=== PATIENT | female | born 1970 | race American Indian/Alaskan Native ===

== ENCOUNTER 2017-07-31 14:49 | Inpatient (IN) | payer SELFPAY ==
--- NOTE | 2017-07-31 15:54 | Emergency Department Report ---
Blank Doc - Documentation Documentation: Patient is a 47-year-old female who is presenting with shortness of breath. Patient states she is short of breath at baseline was worse with walking. She does get chest heaviness as well. Patient is having his chest heaviness currently. Patient also noted some leg swelling as well bilaterally. The patient will be moved to the main for cardiac workup.
[2017-07-31] MEDS ORDERED: ASPIRIN PO ONE (15:55)
[2017-07-31 16:26] LABS: Basophils # (Auto) 0.1 K/mm3 (0.0-0.1); Basophils % (Auto) 1.2 % (0.0-1.8); Eosinophils # (Auto) 0.1 K/mm3 (0.0-0.4); Eosinophils % (Auto) 2.3 % (0.0-4.3); Hematocrit 42.5 % (30.3-42.9); Lymphocytes # (Auto) 1.9 K/mm3 (1.2-5.4); Lymphocytes % (Auto) 32.6 % (13.4-35.0); Mean Corpuscular HGB Conc 33 % (30-34); Mean Corpuscular Hemoglobin 31 pg (28-32); Mean Corpuscular Volume 93 fl (79-97); Monocytes # (Auto) 0.8 K/mm3 (0.0-0.8); Platelet Count 252 K/mm3 (140-440); Red Blood Count 4.58 M/mm3 (3.65-5.03); Red Cell Distribution Width 13.9 % (13.2-15.2)
--- NOTE | 2017-07-31 16:28 | Emergency Department Report ---
HPI - General Chief Complaint: Dyspnea/Respdistress Time Seen by Provider: 07/31/17 15:40 - HPI HPI: Patient is a 47-year-old female who is presenting with shortness of breath. Patient states she is short of breath at baseline was worse with walking. She does get chest heaviness as well. Patient describe her heaviness as 6 out of 10, substernal, without radiation. She denies any alleviating factors but states that exertion isn't exacerbating factor. Patient is having his chest heaviness currently. Patient also noted some leg swelling as well bilaterally. ED Past Medical Hx - Past Medical History Hx Hypertension: Yes Hx CVA: No Hx Heart Attack/AMI: No Hx Asthma: Yes - Surgical History Past Surgical History?: No - Social History Smoking Status: Never Smoker ED Review of Systems ROS: Stated complaint: DIFFICULTY BREATHING Other details as noted in HPI Comment: All other systems reviewed and negative Respiratory: shortness of breath Cardiovascular: chest pain Physical Exam - Physical Exam Vital Signs: Vital Signs 07/31/17 15:00 Temperature 98.4 F Pulse Rate 72 Respiratory 16 Rate Blood Pressure 114/83 O2 Sat by Pulse 97 Oximetry Physical Exam: Gen. alert and oriented 3 in no distress Head atraumatic normocephalic Eyes PERR LA EOMI Chest regular rate and rhythm normal S1-S2 lungs clear bilaterally Abdomen soft nondistended Back no point tenderness paravertebral tenderness Neuro no focal deficit. Psych normal mood. ED Course Vital Signs 07/31/17 15:00 Temperature 98.4 F Pulse Rate 72 Respiratory 16 Rate Blood Pressure 114/83 O2 Sat by Pulse 97 Oximetry ED Medical Decision Making - Lab Data Result diagrams: 07/31/17 16:15 07/31/17 16:15 Critical care attestation.: If time is entered above; I have spent that time in minutes in the direct care of this critically ill patient, excluding procedure time. ED Disposition Clinical Impression: Chest pain Qualifiers: Chest pain type: other chest pain Qualified Code(s): R07.89 - Other chest pain ; R07.8 - Other chest pain Disposition: OP ADMIT IP TO THIS HOSP Is pt being admited?: Yes Does the pt Need Aspirin: No Condition: Stable Instructions: Chest Pain (ED)
[2017-07-31 16:55] LABS: BUN/Creatinine Ratio 21; Blood Urea Nitrogen 15 mg/dL (7-17); Calcium 8.6 mg/dL (8.4-10.2); Hemolysis Index 13
--- NOTE | 2017-07-31 18:11 | XRay Report ---
FINAL REPORT EXAM: XR CHEST ROUTINE 2V HISTORY: Chest Pain TECHNIQUE: Frontal and lateral chest radiographs. PRIORS: None. FINDINGS: The cardiomediastinal silhouette is normal. No focal consolidation. Diffuse increased interstitial markings are seen. Linear opacities are seen at the lung bases. No pleural effusion. No pneumothorax. No acute osseous abnormality. IMPRESSION: Findings may represent pulmonary edema versus interstitial pneumonitis or a chronic interstitial process. Bibasilar atelectasis.
--- NOTE | 2017-07-31 19:08 | Cat Scan Report ---
FINAL REPORT EXAM: CT ANGIO CHEST HISTORY: sob, cp TECHNIQUE: CTA of the chest was performed after the administration of intravenous contrast. Rotating MIPS were included. Reconstructions were included in the coronal and sagittal planes. PRIORS: Chest x-ray from earlier today. FINDINGS: Pulmonary arteries and thoracic aorta: The study is adequate for diagnostic purposes. No central or segmental pulmonary embolism. The thoracic aorta is normal in caliber. Lungs and airways: No pleural effusion. Scattered patchy bilateral peripheral ground-glass opacities are seen within both lungs. More confluent opacities are seen in the lung bases and right middle lobe. The airways are patent. No bronchiectasis. Mediastinum, heart, pericardium: No mediastinal lymphadenopathy. No cardiac chamber enlargement. No pericardial effusion. Calcified right hilar lymph nodes are seen. Thoracic inlet, chest wall, axilla: No chest wall masses. The visualized portions of the thyroid gland demonstrate no focal lesion. No axillary lymphadenopathy. Upper abdomen: The visualized structures demonstrate no specific abnormality. Bones: No acute or chronic osseous finding. IMPRESSION: 1. No central or segmental pulmonary embolism. 2. Pulmonary findings may be related to atypical pneumonia versus a chronic interstitial process.
[2017-07-31] MEDS ORDERED: PERCOCET 5/325 PO PRN (21:50)
[2017-07-31] MEDS ORDERED: MORPHINE IV PRN ×2 (21:50→22:33)
[2017-07-31] MEDS ORDERED: SODIUM CHLORIDE FLUSH SYRINGE 10 ML IV PRN (21:50)
[2017-07-31] MEDS ORDERED: ZOFRAN IV PRN (21:50)
[2017-07-31] MEDS ORDERED: TYLENOL PO PRN (21:50)
--- NOTE | 2017-07-31 21:50 | History and Physical Report ---
History of Present Illness Date of examination: 07/31/17 Date of admission: 07/31/17 18:26 Chief complaint: SOB /CP 2 days History of present illness: SOHA Patient is a 47-year-old female who is presenting with shortness of breath. Patient states she is short of breath at baseline was worse with walking. She does get chest heaviness as well. Patient describe her heaviness as 6 out of 10, substernal, without radiation. She denies any alleviating factors but states that exertion isn't exacerbating factor. Patient is having his chest heaviness currently. Patient also noted some leg swelling as well bilaterally. Past Medical History Hx Hypertension: Yes Hx Asthma: Yes Surgical History Past Surgical History?: No Social History Smoking Status: Never Smoker Review of Systems ROS: Stated complaint: DIFFICULTY BREATHING Other details as noted in HPI Comment: All other systems reviewed and negative Respiratory: shortness of breath Cardiovascular: chest pain Medications and Allergies Allergies Allergy/AdvReac Type Severity Reaction Status Date / Time No Known Allergies Allergy Unverified 07/31/17 15:03 Home Medications Medication Instructions Recorded Confirmed Last Taken Type Montelukast [Singulair] 10 mg PO QPM 07/31/17 07/31/17 Unknown History Review of Systems All systems: negative Constitutional: no weight loss, no weight gain, no fever, no chills Ears, nose, mouth and throat: no sore throat, no swelling in mouth, no swelling in throat Breasts: deferred Cardiovascular: chest pain, shortness of breath, dyspnea on exertion Respiratory: no cough, no hemoptysis, no shortness of breath, no dyspnea on exertion Gastrointestinal: no abdominal pain, no nausea, no vomiting Genitourinary Female: no dysuria, no urinary frequency, no urgency Rectal: no pain Musculoskeletal: no neck stiffness, no neck pain, no shooting arm pain, no arm numbness/tingling Integumentary: no rash, no pruritis, no redness, no sores Neurological: no seizures, no syncope Psychiatric: no anxiety, no memory loss, no change in sleep habits, no sleep disturbances Endocrine: no cold intolerance, no heat intolerance, no polyphagia, no excessive thirst Hematologic/Lymphatic: no easy bruising, no easy bleeding Allergic/Immunologic: no urticaria, no allergic rhinitis, no wheezing Exam - Constitutional Vitals: Temp Pulse Resp BP Pulse Ox 98.2 F 65 19 106/52 95 07/31/17 16:35 07/31/17 21:01 07/31/17 21:01 07/31/17 21:01 07/31/17 21:01 General appearance: Present: no acute distress, well-nourished - EENT Eyes: Present: PERRL ENT: hearing intact, clear oral mucosa - Neck Neck: Present: supple, normal ROM - Respiratory Respiratory effort: normal Respiratory: bilateral: CTA - Cardiovascular Heart Sounds: Present: S1 & S2. Absent: rub, click - Extremities Extremities: pulses symmetrical, No edema Peripheral Pulses: within normal limits - Abdominal General gastrointestinal: Present: soft, non-tender, non-distended, normal bowel sounds Female genitourinary: Present: normal - Integumentary Integumentary: Present: clear, warm, dry - Musculoskeletal Musculoskeletal: gait normal, strength equal bilaterally - Psychiatric Psychiatric: appropriate mood/affect, intact judgment & insight - Neurologic Neurologic: CNII-XII intact, moves all extremities Results - Labs CBC & Chem 7: 08/01/17 04:36 08/01/17 04:36 Labs: Laboratory Last Values WBC 5.9 K/mm3 (4.5-11.0) 07/31/17 16:15 RBC 4.58 M/mm3 (3.65-5.03) 07/31/17 16:15 Hgb 14.0 gm/dl (10.1-14.3) 07/31/17 16:15 Hct 42.5 % (30.3-42.9) 07/31/17 16:15 MCV 93 fl (79-97) 07/31/17 16:15 MCH 31 pg (28-32) 07/31/17 16:15 MCHC 33 % (30-34) 07/31/17 16:15 RDW 13.9 % (13.2-15.2) 07/31/17 16:15 Plt Count 252 K/mm3 (140-440) 07/31/17 16:15 Lymph % (Auto) 32.6 % (13.4-35.0) 07/31/17 16:15 [place] % (Auto) 13.0 % (0.0-7.3) H 07/31/17 16:15 Eos % (Auto) 2.3 % (0.0-4.3) 07/31/17 16:15 Baso % (Auto) 1.2 % (0.0-1.8) 07/31/17 16:15 Lymph # 1.9 K/mm3 (1.2-5.4) 07/31/17 16:15 [place] # 0.8 K/mm3 (0.0-0.8) 07/31/17 16:15 Eos # 0.1 K/mm3 (0.0-0.4) 07/31/17 16:15 Baso # 0.1 K/mm3 (0.0-0.1) 07/31/17 16:15 Seg Neutrophils % 50.9 % (40.0-70.0) 07/31/17 16:15 Seg Neutrophils # 3.0 K/mm3 (1.8-7.7) 07/31/17 16:15 D-Dimer 407.69 ng/mlDDU (0-234) H 07/31/17 16:15 Sodium 138 mmol/L (137-145) 07/31/17 16:15 Potassium 3.9 mmol/L (3.6-5.0) 07/31/17 16:15 Chloride 98.7 mmol/L (98-107) 07/31/17 16:15 Carbon Dioxide 26 mmol/L (22-30) 07/31/17 16:15 Anion Gap 17 mmol/L 07/31/17 16:15 BUN 15 mg/dL (7-17) 07/31/17 16:15 Creatinine 0.7 mg/dL (0.7-1.2) 07/31/17 16:15 Estimated GFR > 60 ml/min 07/31/17 16:15 BUN/Creatinine Ratio 21 % 07/31/17 16:15 Glucose 100 mg/dL (65-100) 07/31/17 16:15 Calcium 8.6 mg/dL (8.4-10.2) 07/31/17 16:15 Troponin T < 0.010 ng/mL (0.00-0.029) 07/31/17 16:15 NT-Pro-B Natriuret Pep 84.26 pg/mL (0-450) 07/31/17 16:15 Short CBC 07/31/17 08/01/17 Range/Units 16:15 04:36 WBC 5.9 5.8 (4.5-11.0) K/mm3 Hgb 14.0 13.2 (10.1-14.3) gm/dl Hct 42.5 39.2 (30.3-42.9) % Plt Count 252 224 (140-440) K/mm3 BMP 07/31/17 08/01/17 16:15 04:36 Sodium 138 138 Potassium 3.9 3.7 Chloride 98.7 101.3 Carbon Dioxide 26 23 BUN 15 12 Creatinine 0.7 0.6 L Glucose 100 84 Calcium 8.6 8.1 L Cardiac Enzymes 07/31/17 07/31/17 08/01/17 Range/Units 16:15 22:02 04:36 Total Creatine Kinase 109 92 (30-135) units/L CK-MB (CK-2) 2.0 1.8 (0.0-4.0) ng/mL Troponin T < 0.010 < 0.010 < 0.010 (0.00-0.029) ng/mL Liver Function 08/01/17 Range/Units 04:36 Total Bilirubin 0.40 (0.1-1.2) mg/dL AST 14 (5-40) units/L ALT 14 (7-56) units/L Alkaline Phosphatase 108 (35-129) units/L Albumin 3.0 L (3.9-5) g/dL - Imaging and Cardiology EKG: report reviewed Chest x-ray: report reviewed Assessment and Plan Advance Directives: Yes (Full code) VTE prophylaxis?: Chemical Plan of care discussed with patient/family: Yes - Patient Problems (1) Chest pain Current Visit: Yes Status: Acute Qualifiers: Chest pain type: other chest pain Qualified Code(s): R07.89 - Other chest pain; R07.8 - Other chest pain Plan to address problem: Chest pain protocol Serial CE's and Lexiscan (2) HTN (hypertension) Current Visit: Yes Status: Chronic Qualifiers: Hypertension type: essential hypertension Qualified Code(s): I10 - Essential (primary) hypertension Plan to address problem: Not on any meds Will initiate if BP readings are high Monitor for now (3) Obesity Current Visit: Yes Status: Chronic Qualifiers: Obesity classification: adult class 3 (BMI >= 40) Plan to address problem: Counselled (4) DVT prophylaxis Current Visit: Yes Status: Acute Plan to address problem: IOn Heparin
[2017-07-31] MEDS: PEPCID PO SCH (22:52)
[2017-08-01] MEDS: SODIUM CHLORIDE FLUSH SYRINGE 10 ML IV SCH ×2 (02:35→12:04)
[2017-08-01 06:02] LABS: Basophils # (Auto) 0.1 K/mm3 (0.0-0.1); Eosinophils # (Auto) 0.2 K/mm3 (0.0-0.4); Hematocrit 39.2 % (30.3-42.9); Hemoglobin 13.2 gm/dl (10.1-14.3); Lymphocytes # (Auto) 1.7 K/mm3 (1.2-5.4); Lymphocytes % (Auto) 30.3 % (13.4-35.0); Mean Corpuscular HGB Conc 34 % (30-34); Mean Corpuscular Hemoglobin 31 pg (28-32); Mean Corpuscular Volume 92 fl (79-97); Monocytes # (Auto) 0.8 K/mm3 (0.0-0.8); Monocytes % (Auto) 13.3 % (0.0-7.3); Platelet Count 224 K/mm3 (140-440); Red Blood Count 4.26 M/mm3 (3.65-5.03); Red Cell Distribution Width 14.2 % (13.2-15.2)
[2017-08-01 06:20] LABS: Creatine Kinase MB 1.8 ng/mL (0.0-4.0)
[2017-08-01 06:26] LABS: Alanine Aminotransferase 14 units/L (7-56); BUN/Creatinine Ratio 20; Blood Urea Nitrogen 12 mg/dL (7-17); Calcium 8.1 mg/dL (8.4-10.2); Hemolysis Index 4
[2017-08-01] MEDS ORDERED: LEXISCAN IV ONE (09:56)
[2017-08-01] MEDS ORDERED: ZOFRAN ONE (10:35)
[2017-08-01] MEDS ORDERED: PNEUMOVAX 23 IM ONE (12:00)
[2017-08-01] MEDS: PEPCID PO SCH (12:32)
[2017-08-01 14:11] VITALS: BP 105/66
--- NOTE | 2017-08-01 15:12 | Progress Note ---
Assessment and Plan Assessment and plan: Patient is a 47-year-old female who is presenting with shortness of breath. Patient states she is short of breath at baseline was worse with walking. She does get chest heaviness as well. Patient describe her heaviness as 6 out of 10, substernal, without radiation. She denies any alleviating factors but states that exertion isn't exacerbating factor. Patient is having his chest heaviness currently. Patient also noted some leg swelling as well bilaterally. Chest pain Chest pain protocol Serial CE's have been negative and Lexiscan results pending HTN (hypertension) Currently controlled without any medication Will initiate if BP readings are high Monitor for now Obesity Counselled Mild to moderate malnutrition Nutrition consult DVT prophylaxis On Heparin History Interval history: Patient seen and examined. Her only complaint today is that of left knee pain which has been going on for some time now. Labs and nursing notes reviewed. Hospitalist Physical - Constitutional Vitals: Temp Pulse Resp BP Pulse Ox 97.7 F 67 16 105/66 96 08/01/17 13:52 08/01/17 13:52 08/01/17 13:52 08/01/17 13:52 08/01/17 13:52 General appearance: Present: no acute distress, well-nourished, obese - EENT Eyes: Present: PERRL, EOM intact ENT: hearing intact, clear oral mucosa, dentition normal - Neck Neck: Present: supple, normal ROM - Respiratory Respiratory effort: normal Respiratory: bilateral: CTA - Cardiovascular Rhythm: regular Heart Sounds: Present: S1 & S2 - Extremities Extremities: no ischemia Extremity abnormal: edema (2+ BLE) - Abdominal General gastrointestinal: soft, non-tender, non-distended - Integumentary Integumentary: Present: clear, warm, dry - Psychiatric Psychiatric: appropriate mood/affect, cooperative - Neurologic Neurologic: CNII-XII intact, moves all extremities - Allied Health Allied health notes reviewed: nursing Results - Labs CBC & Chem 7: 08/01/17 04:36 08/01/17 04:36 Labs: Laboratory Last Values WBC 5.8 K/mm3 (4.5-11.0) 08/01/17 04:36 RBC 4.26 M/mm3 (3.65-5.03) 08/01/17 04:36 Hgb 13.2 gm/dl (10.1-14.3) 08/01/17 04:36 Hct 39.2 % (30.3-42.9) 08/01/17 04:36 MCV 92 fl (79-97) 08/01/17 04:36 MCH 31 pg (28-32) 08/01/17 04:36 MCHC 34 % (30-34) 08/01/17 04:36 RDW 14.2 % (13.2-15.2) 08/01/17 04:36 Plt Count 224 K/mm3 (140-440) 08/01/17 04:36 Lymph % (Auto) 30.3 % (13.4-35.0) 08/01/17 04:36 [place] % (Auto) 13.3 % (0.0-7.3) H 08/01/17 04:36 Eos % (Auto) 3.0 % (0.0-4.3) 08/01/17 04:36 Baso % (Auto) 1.0 % (0.0-1.8) 08/01/17 04:36 Lymph # 1.7 K/mm3 (1.2-5.4) 08/01/17 04:36 [place] # 0.8 K/mm3 (0.0-0.8) 08/01/17 04:36 Eos # 0.2 K/mm3 (0.0-0.4) 08/01/17 04:36 Baso # 0.1 K/mm3 (0.0-0.1) 08/01/17 04:36 Seg Neutrophils % 52.4 % (40.0-70.0) 08/01/17 04:36 Seg Neutrophils # 3.0 K/mm3 (1.8-7.7) 08/01/17 04:36 D-Dimer 407.69 ng/mlDDU (0-234) H 07/31/17 16:15 Sodium 138 mmol/L (137-145) 08/01/17 04:36 Potassium 3.7 mmol/L (3.6-5.0) 08/01/17 04:36 Chloride 101.3 mmol/L (98-107) 08/01/17 04:36 Carbon Dioxide 23 mmol/L (22-30) 08/01/17 04:36 Anion Gap 17 mmol/L 08/01/17 04:36 BUN 12 mg/dL (7-17) 08/01/17 04:36 Creatinine 0.6 mg/dL (0.7-1.2) L 08/01/17 04:36 Estimated GFR > 60 ml/min 08/01/17 04:36 BUN/Creatinine Ratio 20 % 08/01/17 04:36 Glucose 84 mg/dL (65-100) 08/01/17 04:36 Hemoglobin A1c 5.7 % (4-6) 07/31/17 22:02 Calcium 8.1 mg/dL (8.4-10.2) L 08/01/17 04:36 Total Bilirubin 0.40 mg/dL (0.1-1.2) 08/01/17 04:36 AST 14 units/L (5-40) 08/01/17 04:36 ALT 14 units/L (7-56) 08/01/17 04:36 Alkaline Phosphatase 108 units/L (35-129) 08/01/17 04:36 Total Creatine Kinase 87 units/L (30-135) 08/01/17 10:57 CK-MB (CK-2) 2.0 ng/mL (0.0-4.0) 08/01/17 10:57 CK-MB (CK-2) Rel Index 2.2 (0-4) 08/01/17 10:57 Troponin T < 0.010 ng/mL (0.00-0.029) 08/01/17 10:57 NT-Pro-B Natriuret Pep 84.26 pg/mL (0-450) 07/31/17 16:15 Total Protein 6.9 g/dL (6.3-8.2) 08/01/17 04:36 Albumin 3.0 g/dL (3.9-5) L 08/01/17 04:36 Albumin/Globulin Ratio 0.8 % 08/01/17 04:36
--- NOTE | 2017-08-01 15:18 | Discharge Summary ---
Providers - Providers Date of Admission: 07/31/17 18:26 Date of discharge: 08/01/17 Attending physician: CASEY GASPAR Primary care physician: [facility] Hospitalization Condition: Stable Pertinent studies: CT chest revealed 1. No central or segmental pulmonary embolism. 2. Pulmonary findings may be related to atypical pneumonia versus a chronic interstitial process. Chest x-ray revealed Findings may represent pulmonary edema versus interstitial pneumonitis or a chronic interstitial process. Bibasilar atelectasis. Lexiscan stress test revealed Hospital course: Patient is a 47-year-old female who is presenting with shortness of breath. Patient states she is short of breath at baseline was worse with walking. She does get chest heaviness as well. Patient describe her heaviness as 6 out of 10, substernal, without radiation. She denies any alleviating factors but states that exertion isn't exacerbating factor. Patient is having his chest heaviness currently. Patient also noted some leg swelling as well bilaterally. Discharge diagnoses Atypical Chest pain Hypertension Obesity Mild to moderate malnutrition DVT prophylaxis Disposition: - TO HOME OR SELFCARE Time spent for discharge: 33 minutes Core Measure Documentation - Palliative Care Palliative Care/ Comfort Measures: Not Applicable - Core Measures Any of the following diagnoses?: none Exam - Constitutional Vitals: Temp Pulse Resp BP Pulse Ox 97.7 F 67 16 105/66 96 08/01/17 13:52 08/01/17 13:52 08/01/17 13:52 08/01/17 13:52 08/01/17 13:52 General appearance: Present: no acute distress, well-nourished - EENT Eyes: Present: PERRL ENT: hearing intact, clear oral mucosa - Neck Neck: Present: supple, normal ROM - Respiratory Respiratory effort: normal Respiratory: bilateral: CTA - Cardiovascular Heart Sounds: Present: S1 & S2. Absent: rub, click - Extremities Extremities: pulses symmetrical Extremity abnormal: edema (bilateral lower extremity edema 2+) Peripheral Pulses: within normal limits - Abdominal General gastrointestinal: Present: soft, non-tender, non-distended, normal bowel sounds - Integumentary Integumentary: Present: clear, warm, dry - Musculoskeletal Musculoskeletal: gait normal, strength equal bilaterally - Psychiatric Psychiatric: appropriate mood/affect, intact judgment & insight - Neurologic Neurologic: CNII-XII intact, moves all extremities Plan Follow up with: PRIMARY CARE, [Primary Care Provider] - 3-5 Days Pending Studies Discharge is pending and negative stress test
--- NOTE | 2017-08-01 19:45 | Treadmill Report ---
NUCLEAR STRESS TEST The patient was brought to the Cardiology lab and nuclear stress test was performed. The patient tolerated Lexiscan administration well. Post-stress images reveal fairly homogeneous distribution of the isotope with no significant reversibility to indicate ischemia. Accompanying gated study shows good systolic function with a calculated ejection fraction of 61%. Suggest clinical correlation. JOB# [id number] KBM/NTS
== END 2017-08-01 18:01 | disposition home or self-care (01) | DRG 313 ==
LOC: ED 14:49 → 4A 18:26
PROVIDERS: ADMIT Internal Medicine; ATTEND Internal Medicine
PROC: 3E0234Z Introduction of Serum, Toxoid and Vaccine into Muscle, Percutaneous Approach (ICD-10-PCS; principal; 2017-08-01)
DX: R07.89 Other chest pain (principal); Z68.41 Body mass index [BMI] 40.0-44.9, adult; E44.0 Moderate protein-calorie malnutrition; I10 Essential (primary) hypertension; J45.909 Unspecified asthma, uncomplicated; E66.9 Obesity, unspecified; Z23 Encounter for immunization
CPT/HCPCS: 36415; 71046; 71275; 78452; 80048; 80053; 82550; 82553; 83036; 83880; 84484; 85025; 85379; 90732; 93017; 94760; 96374; 99285; A9502; J2405; J2785; Q9967

== ENCOUNTER 2018-11-29 09:30 | Emergency (ER) | payer OTHER ==
--- NOTE | 2018-11-29 10:06 | Emergency Department Report ---
HPI - General Chief Complaint: Allergic Reaction Time Seen by Provider: 11/29/18 10:05 - HPI HPI: Patient is a 48-year-old female who is presenting with rash to her bilateral upper extremities and torso. Patient states isn't in the last 2 months. Patient states that she feels as though she may have had a fever earlier today and became very hot. Patient had no chills. Patient states she's been using the same soaps lotions and is not sure what she may be allergic to. Patient denies any difficulty breathing or problems swallowing at this time. Patient states has been no cough, congestion ED Past Medical Hx - Past Medical History Hx Hypertension: Yes Hx CVA: No Hx Heart Attack/AMI: No Hx Congestive Heart Failure: No Hx Diabetes: No Hx Asthma: Yes Hx COPD: No - Surgical History Past Surgical History?: No - Social History Smoking Status: Never Smoker Substance Use Type: Alcohol - Medications Home Medications: Home Medications Medication Instructions Recorded Confirmed Last Taken Type Montelukast [Singulair] 10 mg PO QPM 07/31/17 07/31/17 Unknown History Pantoprazole [Protonix TAB] 20 mg PO QDAY #30 tablet. 08/01/17 Unknown Rx diphenhydrAMINE [Benadryl CAP] 25 mg PO Q6HR #12 capsule 11/29/18 Unknown Rx predniSONE [Deltasone] 20 mg PO QDAY #4 tab 11/29/18 Unknown Rx ED Review of Systems ROS: Stated complaint: FEVER/RASH ON ARM Other details as noted in HPI Comment: All other systems reviewed and negative Physical Exam - Physical Exam Vital Signs: Vital Signs 11/29/18 09:36 Temperature 98.1 F Pulse Rate 97 H Respiratory 18 Rate Blood Pressure 140/90 O2 Sat by Pulse 97 Oximetry General: Patient alert and oriented 3. Patient no acute distress. Heart and lung exams within normal limits Physical Exam: Patient with a maculopapular rash to the bilateral upper extremities and neck torso ED Course Vital Signs 11/29/18 09:36 Temperature 98.1 F Pulse Rate 97 H Respiratory 18 Rate Blood Pressure 140/90 O2 Sat by Pulse 97 Oximetry ED Medical Decision Making - Medical Decision Making Patient given a shot of Decadron sugars be sent home with Benadryl and 4 more days of steroids. 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 ED Disposition Clinical Impression: Allergic reaction Qualifiers: Encounter type: initial encounter Qualified Code(s): T78.40XA - Allergy, unspecified, initial encounter Disposition: TO HOME OR SELFCARE Is pt being admited?: No Does the pt Need Aspirin: No Condition: Stable Instructions: Allergies (ED) Referrals: MARIO YOUNG MD [Referring] - 3-5 Days Time of Disposition: 10:40
[2018-11-29] MEDS ORDERED: DECADRON IM ONE (10:14)
[2018-11-29 11:07] VITALS: BP 121/74
== END 2018-11-29 11:03 | disposition home or self-care (01) ==
LOC: ED 09:30
DX: T78.40XA Allergy, unspecified, initial encounter (principal); I10 Essential (primary) hypertension; Z88.1 Allergy status to other antibiotic agents; X58.XXXA Exposure to other specified factors, initial encounter
CPT/HCPCS: 96372; 99282; J1100

== ENCOUNTER 2019-06-07 07:39 | Outpatient (CLI) | payer OTHER ==
[2019-06-07] MEDS ORDERED: ALBUTEROL 2.5 MG/3 ML NEBU IH ONE (08:22)
== END 2019-06-07 07:40 | disposition home or self-care (01) ==
LOC: PF 07:39
PROVIDERS: ATTEND Internal Medicine
DX: J45.909 Unspecified asthma, uncomplicated (principal)
CPT/HCPCS: 94060; 94640; 94729

== ENCOUNTER 2020-08-09 08:39 | Day surgery (SDC) | payer OTHER ==
[2020-08-09] MEDS ORDERED: DOBUTamine 100 MG in DEXTROSE 5% IN WATER 92 ML IV ONE (09:56)
--- NOTE | 2020-08-09 22:41 | Treadmill Report ---
DOBUTAMINE STRESS ECHO ORDERING PHYSICIAN: Dr. Jaison Mann for shortness of breath. The patient is on oxygen at home. The patient's baseline heart rate was 77. Baseline blood pressure 103/73. Baseline EKG is sinus rhythm with nonspecific ST-T. Baseline echo in the four views showed normal LV function, normal opening of the aortic and mitral valve. EF is 50-55% on baseline echo. The patient was infused with dobutamine and achieved target heart rate 141, which is 85% max predicted heart rate at 30 mcg of dobutamine. The patient's peak blood pressure was 101/56. The patient had no EKG changes suggestive of ischemia. The patient's echo findings at low and high dobutamine infusion shows normal LV function with hyperdynamic LV at the peak of exercise with no wall motion abnormalities with functioning mitral and aortic valve. SUMMARY: 1. Negative dobutamine stress echo. 2. Normal LV function at base and no wall motion abnormality at peak of dobutamine infusion at 30 mcg with no EKG changes or arrhythmia suggestive of ischemia. The patient did have shortness of breath during the infusion. JOB# [id number] HILARY/TRUE
== END 2020-08-09 08:40 | disposition home or self-care (01) ==
LOC: CATHLABREC 08:39 → ECHO 08:39 → CATHLABREC 08:40 → EDSTATUS 09:00
DX: R06.02 Shortness of breath (principal); R07.89 Other chest pain; R00.2 Palpitations; J84.112 Idiopathic pulmonary fibrosis; I10 Essential (primary) hypertension; E66.9 Obesity, unspecified; J45.909 Unspecified asthma, uncomplicated; Z88.5 Allergy status to narcotic agent; Z88.8 Allergy status to other drugs, medicaments and biological substances; Z79.899 Other long term (current) drug therapy; Z79.84 Long term (current) use of oral hypoglycemic drugs; Z87.01 Personal history of pneumonia (recurrent); Z98.890 Other specified postprocedural states; Z68.33 Body mass index [BMI] 33.0-33.9, adult
CPT/HCPCS: 93017; 93320; 93325; 93350; J1250

== ENCOUNTER 2021-01-21 14:10 | Emergency (ER) | payer OTHER ==
[2021-01-21 14:26] VITALS: BP 109/86
[2021-01-21] MEDS ORDERED: FAMOTIDINE 20 MG TAB PO ONE (14:26)
[2021-01-21] MEDS ORDERED: dexAMETHasone 20 MG/5 ML VIAL IM ONE (14:26)
[2021-01-21] MEDS ORDERED: diphenhydrAMINE 50 MG/ML VIAL IM ONE (14:26)
--- NOTE | 2021-01-21 14:31 | Emergency Department Report ---
ED [place] [facility] Chief Complaint: Allergic Reaction Stated Complaint: STEFFANY Time Seen by Provider: 01/21/21 14:24 Duration: 2 Days Suspected Cause: Unknown Rash Symptoms: Yes Itching, Yes Wheezing/Dyspnea, No Facial Swelling, No Tongue/Oral Swelling, No Breathing Difficulties, No Choking Sensation, No Peeling, No Blistering, No Fever, No Lightheaded, No Malaise, No Myalgias Severity: moderate Other History: 50-year-old female presents to the emergency room for 2-day history of rash and itchiness. Patient reports she has a history of of this and usually takes hydroxyzine but states is not helping. Patient denies any closing of her throat chest pain. She does have a history of COPD and is oxygen dependent at home with 2 L nasal cannula. Patient comes to the emergency room without her oxygen. Patient does appear to be anxious. ED Review of Systems ROS: Stated complaint: STEFFANY Other details as noted in HPI ED Past Medical Hx - Past Medical History Previous Medical History?: Yes Hx Hypertension: Yes Hx CVA: No Hx Heart Attack/AMI: No Hx Congestive Heart Failure: No Hx Diabetes: No Hx Asthma: Yes (Pancreatic) Hx COPD: Yes Additional medical history: Fibrosis of lungs - Surgical History Past Surgical History?: Yes Additional Surgical History: hernia repair, Port right chest - Social History Smoking Status: Former Smoker Substance Use Type: None - Medications Home Medications: Home Medications Medication Instructions Recorded Confirmed Last Taken Type Esomeprazole Magnesium 40 mg PO DAILY 03/19/19 03/19/19 Unknown History Symbicort 160-4.5 Mcg Inhaler 4.5 mcg INHALATION BID 03/19/19 03/19/19 Unknown History Vitamin D (Nf) 5,000 unit PO DAILY 03/19/19 03/19/19 Unknown History Albuterol Sulfate 2.5 mg INHALATION Q6H PRN #1 03/21/19 Unknown Rx Arformoterol Nebu [Brovana Nebu] 15 mcg IH Q12HRT ml 03/21/19 Unknown Rx Budesonide [Pulmicort Respules] 0.5 mg IH Q12HRT nebu 03/21/19 Unknown Rx Fluticasone Propionate 50 mcg IH BID #1 03/21/19 Unknown Rx Ipratropium/Albuterol Sulfate 1 ampul IH TIDRT #100 ampul.neb 03/21/19 Unknown Rx [DUONEB *Not for PRN Use*] Montelukast [Singulair] 10 mg PO QPM #30 tablet 03/21/19 Unknown Rx Pantoprazole [Protonix TAB] 20 mg PO QDAY tablet.dr 03/21/19 Unknown Rx metFORMIN XR [Glucophage XR] 500 mg PO QDDIAB #60 tablet 03/21/19 Unknown Rx oxyCODONE /ACETAMINOPHEN [Percocet 1 tab PO Q6H PRN tablet 03/21/19 Unknown Rx 5/325 mg] predniSONE 30 mg PO BID #60 03/21/19 Unknown Rx Clair Root [Clair] 250 mg PO QID PRN #30 capsule 12/18/19 Unknown Rx Ondansetron [Zofran Odt] 4 mg PO Q8HR PRN #20 tab.rapdis 12/18/19 Unknown Rx Potassium Chloride [K-Dur] 20 meq PO QDAY #10 tablet 12/18/19 Unknown Rx Cetirizine HCl [Zyrtec 10mg tab] 10 mg PO QDAY #30 tablet 01/21/21 Unknown Rx Prednisone [predniSONE 5 mg (6-Day 5 mg PO .TAPER #1 tab.ds.pk 01/21/21 Unknown Rx Pack, 21 Tabs)] Rash Exam - Exam General: Vital signs noted. No distress. Alert and acting appropriately. HEENT: No Periorbital Edema, No Conjuctival Injection, No Chemosis, No Perioral Edema, No Tongue Edema, No Uvular Edema, No Compromised Airway, No Drooling Lungs: Yes Good Air Exchange (Normal Breath Sounds), No Wheezes, No Ronchi, No Stridor, No Cough, No Labored Respirations, No Retractions, No Use of Accessory Muscles, No Other Abnormal Lung Sounds Heart: No Regular (Tachycardic) Skin: Yes Urticarial Rash (Thighs upper arms) Other: Positive: Abdomen Normal, Neurologic Normal, Musculoskeletal Normal ED Course Vital Signs 01/21/21 14:25 Temperature 98.9 F Pulse Rate 125 H Respiratory 20 Rate Blood Pressure 109/86 [Right] O2 Sat by Pulse 95 Oximetry ED Medical Decision Making - Medical Decision Making 50-year-old female presents to the emergency room for 2-day history of rash and itchiness. Patient reports she has a history of of this and usually takes hydroxyzine but states is not helping. Patient denies any closing of her throat chest pain. She does have a history of COPD and is oxygen dependent at home with 2 L nasal cannula. Patient comes to the emergency room without her oxygen. Patient does appear to be anxious. Dexamethasone 10 mg IM, Benadryl 25 mg IM and Pepcid 20 mg p.o. has been ordered. Patient be referred to primary care or tempering machine operator for allergy testing. Critical care attestation.: If time is entered above; I have spent that time in minutes in the direct care of this critically ill patient, excluding procedure time. ED Disposition Clinical Impression: Urticaria Disposition: HOME / SELF CARE / HOMELESS Is pt being admited?: No Condition: Stable Instructions: Hives, [id number] Additional Instructions: Please complete medication as prescribed. Follow-up with a tempering machine operator or primary care provider Prescriptions: Prednisone [predniSONE 5 mg (6-Day Pack, 21 Tabs)] 5 mg PO .TAPER #1 tab.ds.pk Cetirizine HCl [Zyrtec 10mg tab] 10 mg PO QDAY #30 tablet Referrals: [facility] [Provider Group] - 3-5 Days
== END 2021-01-22 17:36 | disposition home or self-care (01) ==
LOC: ED 14:10
DX: L50.9 Urticaria, unspecified (principal); I10 Essential (primary) hypertension; J44.9 Chronic obstructive pulmonary disease, unspecified; J45.909 Unspecified asthma, uncomplicated; J84.10 Pulmonary fibrosis, unspecified; Z98.890 Other specified postprocedural states; Z87.891 Personal history of nicotine dependence
CPT/HCPCS: 96372; 99282; J1100; J1200

== ENCOUNTER 2021-05-11 05:02 | Inpatient (IN) | payer MEDICARE ==
--- NOTE | 2021-05-11 05:22 | Event Note ---
Date: 05/11/21 Medical screening examination note: 51-year-old female, with complex past medical history, complaining of right- sided abdominal pain. Patient endorses numerous allergies, which are inconclusive. Patient is awake, and moving 4 extremities. Check appropriate laboratory studies, EKG, detailed history and physical to follow, by oncoming ER provider
[2021-05-11] MEDS ORDERED: ONDANSETRON 4 MG/2 ML INJ IV ONE (06:10)
[2021-05-11] MEDS ORDERED: MORPHINE 4 MG/1 ML INJ IV ONE (06:10)
[2021-05-11] MEDS ORDERED: SODIUM CHLORIDE 0.9% 1000 ML 1,000 ML IV ONE ×3 (06:10→11:07)
[2021-05-11 06:13] LABS: Basophils % (Auto) 0.5 % (0.0-1.8); Eosinophils # (Auto) 0.1 K/mm3 (0.0-0.4); Eosinophils % (Auto) 2.1 % (0.0-4.3); Hematocrit 39.5 % (30.3-42.9); Hemoglobin 12.8 gm/dl (10.1-14.3); Lymphocytes # (Auto) 0.6 K/mm3 (1.2-5.4); Lymphocytes % (Auto) 10.8 % (13.4-35.0); Mean Corpuscular HGB Conc 32 % (30-34); Mean Corpuscular Volume 98 fl (79-97); Monocytes # (Auto) 0.2 K/mm3 (0.0-0.8); Monocytes % (Auto) 2.5 % (0.0-7.3); Platelet Count 319 K/mm3 (140-440); Red Blood Count 4.02 M/mm3 (3.65-5.03); Red Cell Distribution Width 17.7 % (13.2-15.2)
--- NOTE | 2021-05-11 06:13 | Emergency Department Report ---
HPI - General Chief Complaint: Abdominal Pain Time Seen by Provider: 05/11/21 05:57 - HPI HPI: 51-year-old female presents to the emergency department with the complaint of right upper quadrant abdominal pain that worsened greatly around 2 in the morning. Overall it has been going on intermittently over the past 3 days. Also, since this morning, the patient has been having some nausea with vomiting. She has a history of stage IV pancreatic cancer and says that she is currently undergoing radiation therapy. The patient also has a past medical history of pulmonary fibrosis for which she says she is on 2 L oxygen via nasal cannula at home, and there is a history of hypertension. The patient tried some Tylenol for her pain prior to presentation without much relief. Currently she says it is 9 out of 10 in intensity. No aggravating or alleviating factors known. ED Past Medical Hx - Past Medical History Hx Hypertension: Yes Hx CVA: No Hx Heart Attack/AMI: No Hx Congestive Heart Failure: No Hx Diabetes: No Hx Asthma: Yes (Pancreatic) Hx COPD: Yes Additional medical history: Fibrosis of lungs - Surgical History Past Surgical History?: No Additional Surgical History: hernia repair, Port right chest - Social History Smoking Status: Former Smoker Substance Use Type: None - Medications Home Medications: Home Medications Medication Instructions Recorded Confirmed Last Taken Type Esomeprazole Magnesium 40 mg PO DAILY 03/19/19 03/19/19 Unknown History Symbicort 160-4.5 Mcg Inhaler 4.5 mcg INHALATION BID 03/19/19 03/19/19 Unknown History Vitamin D (Nf) 5,000 unit PO DAILY 03/19/19 03/19/19 Unknown History Albuterol Sulfate 2.5 mg INHALATION Q6H PRN #1 03/21/19 Unknown Rx Arformoterol Nebu [Brovana Nebu] 15 mcg IH Q12HRT ml 03/21/19 Unknown Rx Budesonide [Pulmicort Respules] 0.5 mg IH Q12HRT nebu 03/21/19 Unknown Rx Fluticasone Propionate 50 mcg IH BID #1 03/21/19 Unknown Rx Ipratropium/Albuterol Sulfate 1 ampul IH TIDRT #100 ampul.neb 03/21/19 Unknown Rx [DUONEB *Not for PRN Use*] Montelukast [Singulair] 10 mg PO QPM #30 tablet 03/21/19 Unknown Rx Pantoprazole [Protonix TAB] 20 mg PO QDAY tablet. 03/21/19 Unknown Rx metFORMIN XR [Glucophage XR] 500 mg PO QDDIAB #60 tablet 03/21/19 Unknown Rx oxyCODONE /ACETAMINOPHEN [Percocet 1 tab PO Q6H PRN tablet 03/21/19 Unknown Rx 5/325 mg] predniSONE 30 mg PO BID #60 03/21/19 Unknown Rx Clair Root [Clair] 250 mg PO QID PRN #30 capsule 12/18/19 Unknown Rx Ondansetron [Zofran Odt] 4 mg PO Q8HR PRN #20 tab.rapdis 12/18/19 Unknown Rx Potassium Chloride [K-Dur] 20 meq PO QDAY #10 tablet 12/18/19 Unknown Rx Cetirizine HCl [Zyrtec 10mg tab] 10 mg PO QDAY #30 tablet 01/21/21 Unknown Rx Prednisone [predniSONE 5 mg (6-Day 5 mg PO .TAPER #1 tab.ds.pk 01/21/21 Unknown Rx Pack, 21 Tabs)] ED Review of Systems ROS: Stated complaint: abd pain Other details as noted in HPI Comment: All other systems reviewed and negative Constitutional: denies: chills, fever Eyes: denies: eye pain, vision change ENT: denies: ear pain, throat pain Respiratory: denies: cough, shortness of breath Cardiovascular: denies: chest pain, palpitations Gastrointestinal: abdominal pain, nausea, vomiting Genitourinary: denies: dysuria, discharge Musculoskeletal: denies: back pain, arthralgia Skin: denies: rash, lesions Neurological: denies: headache, weakness Physical Exam - Physical Exam Vital Signs: Vital Signs 05/11/21 05:02 Temperature 98.1 F Pulse Rate 80 Respiratory 18 Rate Blood Pressure 130/90 [Right] O2 Sat by Pulse 98 Oximetry Physical Exam: GENERAL: The patient is well-developed well-nourished. HENT: Normocephalic. Atraumatic. Patient has moist mucous membranes. EYES: Extraocular motions are intact. NECK: Supple. Trachea is midline. CHEST/LUNGS: Clear to auscultation. There is no respiratory distress noted. HEART/CARDIOVASCULAR: Regular. There is mild tachycardia. There is no murmur. ABDOMEN: Abdomen is soft. Epigastric and right upper quadrant abdominal tenderness to palpation. No guarding. Patient has normal bowel sounds. There is no abdominal distention. SKIN: Skin is warm and dry. NEURO: The patient is awake, alert, and oriented. The patient is cooperative. Normal speech. MUSCULOSKELETAL: There is no tenderness or deformity. There is no limitation range of motion. ED Course Vital Signs 05/11/21 05:02 Temperature 98.1 F Pulse Rate 80 Respiratory 18 Rate Blood Pressure 130/90 [Right] O2 Sat by Pulse 98 Oximetry - Reevaluation(s) Reevaluation #1: 05/11/21 07:08 Patient went to use the restroom and upon return to the monitor she was found to have a heart rate of about 155 bpm. The patient also began having increased tachypnea. She is oxygen dependent at home so she was placed on 2 L initially but still had an oxygen saturation in the low 90s so she was moved up to 6 L. The patient was already due to have a CT of the abdomen pelvis with IV contrast. I have ordered a CT angiography of the chest as well. We are obtaining an EKG. the patient has a low-grade fever of 100.4 F. She will be given Tylenol. - Central Line Placement Right Femoral Consent Obtained: written consent Time Out Performed: Yes Patient Placed on Monitor/Pulse Ox: Yes Prep: mask, gown, gloves Central Line Prep: Chlorhexidine scrub Local Anesthesia Used: Lidocaine 1% Amount of Anesthesia Used (mls): 3 Ultrasound Used for Placement: Yes Central Line Lumen Inserted: triple Reason for Insertion: Volume Resuscitation Bloods Obtained for Lab: No Central Line Position: good blood return, all ports aspirated, flus, sutured in place with nyl Dressing Applied: Tegaderm, sterile gauze/tape Patient Tolerated Procedure: well Complications: none ED Medical Decision Making - Lab Data Result diagrams: 05/11/21 05:43 05/11/21 05:43 Lab Results 05/11/21 05/11/21 05/11/21 Range/Units 05:43 05:43 05:43 WBC 6.0 (4.5-11.0) K/mm3 RBC 4.02 (3.65-5.03) M/mm3 Hgb 12.8 (10.1-14.3) gm/dl Hct 39.5 (30.3-42.9) % MCV 98 H (79-97) fl MCH 32 (28-32) pg MCHC 32 (30-34) % RDW 17.7 H (13.2-15.2) % Plt Count 319 (140-440) K/mm3 Lymph % (Auto) 10.8 L (13.4-35.0) % [place] % (Auto) 2.5 (0.0-7.3) % Eos % (Auto) 2.1 (0.0-4.3) % Baso % (Auto) 0.5 (0.0-1.8) % Lymph # (Auto) 0.6 L (1.2-5.4) K/mm3 [place] # (Auto) 0.2 (0.0-0.8) K/mm3 Eos # (Auto) 0.1 (0.0-0.4) K/mm3 Baso # (Auto) 0.0 (0.0-0.1) K/mm3 Seg Neutrophils % 84.1 H (40.0-70.0) % Seg Neutrophils # 5.0 (1.8-7.7) K/mm3 PT 16.0 H (12.2-14.9) Sec. INR 1.16 H (0.87-1.13) Sodium 139 (137-145) mmol/L Potassium 3.6 (3.6-5.0) mmol/L Chloride 102.5 (98-107) mmol/L Carbon Dioxide 21 L (22-30) mmol/L Anion Gap 19 mmol/L BUN 4 L (7-17) mg/dL Creatinine 0.4 L (0.6-1.2) mg/dL Estimated GFR > 60 ml/min BUN/Creatinine Ratio 10 % Glucose 100 (65-100) mg/dL Lactic Acid (0.7-2.0) mmol/L Calcium 8.3 L (8.4-10.2) mg/dL Total Bilirubin 2.10 H (0.1-1.2) mg/dL Direct Bilirubin 1.4 H (0-0.2) mg/dL Indirect Bilirubin 0.7 mg/dL AST 335 H (5-40) units/L ALT 57 H (7-56) units/L Alkaline Phosphatase 339 H (35-129) units/L Total Protein 7.5 (6.3-8.2) g/dL Albumin 2.4 L (3.9-5) g/dL Albumin/Globulin Ratio 0.5 % Lipase 3 L (13-60) units/L Urine Color (Yellow) Urine Turbidity (Clear) Urine pH (5.0-7.0) Ur Specific [place] (1.003-1.030) Urine Protein (Negative) mg/dL Urine Glucose (UA) (Negative) mg/dL Urine Ketones (Negative) mg/dL Urine Blood (Negative) Urine Nitrite (Negative) Urine Bilirubin (Negative) Urine Urobilinogen (<2.0) mg/dL Ur Leukocyte Esterase (Negative) Urine WBC (Auto) (0.0-6.0) /HPF Urine RBC (Auto) (0.0-6.0) /HPF Urine Mucus /HPF 05/11/21 05/11/21 Range/Units 11:18 12:28 WBC (4.5-11.0) K/mm3 RBC (3.65-5.03) M/mm3 Hgb (10.1-14.3) gm/dl Hct (30.3-42.9) % MCV (79-97) fl MCH (28-32) pg MCHC (30-34) % RDW (13.2-15.2) % Plt Count (140-440) K/mm3 Lymph % (Auto) (13.4-35.0) % [place] % (Auto) (0.0-7.3) % Eos % (Auto) (0.0-4.3) % Baso % (Auto) (0.0-1.8) % Lymph # (Auto) (1.2-5.4) K/mm3 [place] # (Auto) (0.0-0.8) K/mm3 Eos # (Auto) (0.0-0.4) K/mm3 Baso # (Auto) (0.0-0.1) K/mm3 Seg Neutrophils % (40.0-70.0) % Seg Neutrophils # (1.8-7.7) K/mm3 PT (12.2-14.9) Sec. INR (0.87-1.13) Sodium (137-145) mmol/L Potassium (3.6-5.0) mmol/L Chloride (98-107) mmol/L Carbon Dioxide (22-30) mmol/L Anion Gap mmol/L BUN (7-17) mg/dL Creatinine (0.6-1.2) mg/dL Estimated GFR ml/min BUN/Creatinine Ratio % Glucose (65-100) mg/dL Lactic Acid 4.20 H* (0.7-2.0) mmol/L Calcium (8.4-10.2) mg/dL Total Bilirubin (0.1-1.2) mg/dL Direct Bilirubin (0-0.2) mg/dL Indirect Bilirubin mg/dL AST (5-40) units/L ALT (7-56) units/L Alkaline Phosphatase (35-129) units/L Total Protein (6.3-8.2) g/dL Albumin (3.9-5) g/dL Albumin/Globulin Ratio % Lipase (13-60) units/L Urine Color [place] (Yellow) Urine Turbidity Clear (Clear) Urine pH 6.0 (5.0-7.0) Ur Specific [place] 1.035 H (1.003-1.030) Urine Protein 100 mg/dl (Negative) mg/dL Urine Glucose (UA) Neg (Negative) mg/dL Urine Ketones Neg (Negative) mg/dL Urine Blood Neg (Negative) Urine Nitrite Neg (Negative) Urine Bilirubin Neg (Negative) Urine Urobilinogen < 2.0 (<2.0) mg/dL Ur Leukocyte Esterase Neg (Negative) Urine WBC (Auto) 2.0 (0.0-6.0) /HPF Urine RBC (Auto) 1.0 (0.0-6.0) /HPF Urine Mucus Few /HPF - EKG Data -: EKG Interpreted by Wy EKG shows normal: sinus rhythm, axis (Left axis deviation), intervals, QRS complexes (Left anterior fascicular block), ST-T waves Rate: tachycardia (134 bpm) - EKG Data When compared to previous EKG there are: no significant change Interpretation: unchanged when compared t (12/18/19) - Radiology Data Radiology results: report reviewed CTA CHEST WITH CONTRAST INDICATION / CLINICAL INFORMATION: Shortness of breath. Tachycardia. TECHNIQUE: Axial CT images were obtained through the chest after injection of Omnipaque 350, 100 cc IV contrast. 3 plane MIP and/or 3D reconstructions were produced. All CT scans at this location are performed using CT dose reduction for ALARA by means of automated exposure control. COMPARISON: CTA chest 12/18/2019. FINDINGS: PULMONARY ARTERIES: No pulmonary emboli. THORACIC AORTA: No significant abnormality. HEART: No significant abnormality. CORONARY ARTERY CALCIFICATION: None. MEDIASTINUM / CHIKIS: No significant abnormality. PLEURA: No pleural effusion. No pneumothorax. LUNGS: Bilateral interstitial opacity remains with overall slight worsening. No new mass. ADDITIONAL FINDINGS: Mild fluid-filled esophagus. UPPER ABDOMEN: No acute findings. SKELETAL STRUCTURES: No significant osseous abnormality. IMPRESSION: 1. No CT evidence for pulmonary embolism. 2. Bilateral interstitial opacity remains with overall mild worsening 3. Mild fluid-filled esophagus. The stomach is also distended with fluid. CT ABDOMEN AND PELVIS WITH CONTRAST INDICATION / CLINICAL INFORMATION: Abdominal pain. Pancreatic cancer. TECHNIQUE: Axial CT images were obtained through the abdomen and pelvis after Omnipaque 350, 100 cc IV contrast. All CT scans at this location are performed using CT dose reduction for ALARA by means of automated exposure control. COMPARISON: CT abdomen and pelvis 12/18/2019 FINDINGS: LIVER: Prominent diffuse fatty infiltration of the liver. GALLBLADDER: No significant abnormality. BILE DUCTS: The common bile duct above the level the stent is dilated measuring 1.3 cm. There is internal debris. Mild air is seen at the gallbladder. No significant air within the biliary tree. PANCREAS: Persistent mass in the pancreatic head with indwelling stent. The size of the mass is similar. Ductal dilatation remains with mild interval increase. New small cystic lesion is seen at the uncinate process measuring 7 mm. SPLEEN: No significant abnormality. ADRENALS: No significant abnormality. RIGHT KIDNEY / URETER: Subcentimeter cysts. LEFT KIDNEY / URETER: No significant abnormality. STOMACH / SMALL BOWEL: No significant abnormality. COLON: Thickening greatest at the right colon. APPENDIX: No significant abnormality. PERITONEUM: Mild pelvic free fluid. No free air. No fluid collection. LYMPH NODES: No significant adenopathy. VASCULAR STRUCTURES: No significant abnormality. URINARY BLADDER: No significant abnormality. REPRODUCTIVE ORGANS: No significant abnormality. ADDITIONAL FINDINGS: None. SKELETAL SYSTEM: No significant abnormality. IMPRESSION: 1. Persistent pancreatic carcinoma with indwelling metallic stent. It is suspected that the stent is included. 2. Mild pelvic fluid. 3. Mild c olonic thickening of uncertain chronicity. CHEST - 1 VIEW 0720 hours INDICATION: SOB COMPARISON: 03/19/2019 FINDINGS: Support devices: A right IJ [id number] has been inserted since the previous exam which terminates near the cavoatrial junction in good position. Heart: Within normal limits. Lungs/pleura: Low lung volumes with increased interstitial markings in the lower lung zones. This is unchanged and suggestive of chronic interstitial lung disease or pulmonary fibrosis. No acute infiltrate, large pleural effusion or pneumothorax. Additional findings: None. IMPRESSION: No acute change since 03/19/2019. Interstitial lung disease or early pulmonary fibrosis is suspected and unchanged. - Medical Decision Making This patient presented to the emergency department with a complaint of abdominal pain. Shortly after arrival, and after getting up for to use the restroom, suddenly the patient began having significant tachycardia with heart rate of about 150. Patient was given some IV fluid resuscitation, IV analgesia, IV antiemetic. Over multiple hours the tachycardia has gradually improved. However, over the patient's ED course she has also started to have hypotension. The patient had 3 L of IV fluid resuscitation and continued to have a MAP of a bout 50 - 55. After a long discussion with the patient, and getting written consent, I placed a right femoral central line as per the procedure section and the patient has been started on pressors. Patient's labs shows elevated LFTs, bilirubin, and a lactic acidosis of 4.2. CT angiography of the chest shows some pulmonary fibrosis but otherwise no evidence of pulmonary embolism, dissection, or any other acute process. CT of the abdomen and pelvis with IV contrast shows her pancreatic carcinoma, and some nonspecific colonic inflammation and mild pelvic fluid. With the tachycardia, hypotension and lactic acidosis, the patient has a septic and/or septic shock appearance. However no focus of infection has been found thus far. Patient was treated with some empiric antibiotics. She will be admitted to the ICU for further evaluation and treatment and was accepted for admission by the hospitalist, Dr. Andrade. Critical Care Time: Yes Critical care time in (mins) excluding proc time.: 35 Critical care attestation.: If time is entered above; I have spent that time in minutes in the direct care of this critically ill patient, excluding procedure time. Critical care time spent on this patient in doing her initial evaluation, multiple reevaluations, ordering and interpretation of labs and imaging, IV fluid resuscitation, IV antibiotics, IV pressors, and multiple discussions with the patient. This does not include the time spent doing the central line procedure. Critical Care Time: 35 minutes ED Disposition Clinical Impression: SIRS (systemic inflammatory response syndrome), Hypotension, Pancreatic cancer, Lactic acidosis, Elevated liver enzymes, Elevated bilirubin Disposition: ADMITTED INPATIENT Is pt being admited?: Yes Condition: Serious Time of Disposition: 14:35
[2021-05-11 06:14] LABS: INR 1.16 (0.87-1.13)
[2021-05-11 06:28] LABS: BUN/Creatinine Ratio 10; Bilirubin,Direct 1.4 mg/dL (0-0.2); Blood Urea Nitrogen 4 mg/dL (7-17); Calcium 8.3 mg/dL (8.4-10.2)
[2021-05-11 06:29] LABS: Alanine Aminotransferase 57 units/L (7-56); Albumin 2.4 g/dL (3.9-5); Hemolysis Index 109
[2021-05-11] MEDS ORDERED: ACETAMINOPHEN 325 MG TAB PO ONE (07:07)
--- NOTE | 2021-05-11 07:50 | XRay Report ---
CHEST - 1 VIEW 0720 hours INDICATION: SOB COMPARISON: 03/19/2019 FINDINGS: Support devices: A right IJ [id number] has been inserted since the previous exam which terminates near the cavoatrial junction in good position. Heart: Within normal limits. Lungs/pleura: Low lung volumes with increased interstitial markings in the lower lung zones. This is unchanged and suggestive of chronic interstitial lung disease or pulmonary fibrosis. No acute infilt rate, large pleural effusion or pneumothorax. Additional findings: None. IMPRESSION: No acute change since 03/19/2019. Interstitial lung disease or early pulmonary fibrosis is suspected and unchanged. Signer Name: Valeriano Akins Jr, MD Signed: 05/11/2021 7:45 AM Workstation Name: [id number]
[2021-05-11] MEDS ORDERED: KETOROLAC 30 MG/1 ML INJ IV ONE ×2 (08:09→20:31)
--- NOTE | 2021-05-11 10:30 | Cat Scan Report ---
CT ABDOMEN AND PELVIS WITH CONTRAST INDICATION / CLINICAL INFORMATION: Abdominal pain. Pancreatic cancer. TECHNIQUE: Axial CT images were obtained through the abdomen and pelvis after Omnipaque 350, 100 cc I V contrast. All CT scans at this location are performed using CT dose reduction for ALARA by means o f automated exposure control. COMPARISON: CT abdomen and pelvis 12/18/2019 FINDINGS: LIVER: Prominent diffuse fatty infiltration of the liver. GALLBLADDER: No significant abnormality. BILE DUCTS: The common bile duct above the level the stent is dilated measuring 1.3 cm. There is inte rnal debris. Mild air is seen at the gallbladder. No significant air within the biliary tree. PANCREAS: Persistent mass in the pancreatic head with indwelling stent. The size of the mass is simil ar. Ductal dilatation remains with mild interval increase. New small cystic lesion is seen at the unc inate process measuring 7 mm. SPLEEN: No significant abnormality. ADRENALS: No significant abnormality. RIGHT KIDNEY / URETER: Subcentimeter cysts. LEFT KIDNEY / URETER: No significant abnormality. STOMACH / SMALL BOWEL: No significant abnormality. COLON: Thickening greatest at the right colon. APPENDIX: No significant abnormality. PERITONEUM: Mild pelvic free fluid. No free air. No fluid collection. LYMPH NODES: No significant adenopathy. VASCULAR STRUCTURES: No significant abnormality. URINARY BLADDER: No significant abnormality. REPRODUCTIVE ORGANS: No significant abnormality. ADDITIONAL FINDINGS: None. SKELETAL SYSTEM: No significant abnormality. IMPRESSION: 1. Persistent pancreatic carcinoma with indwelling metallic stent. It is suspected that the stent is included. 2. Mild pelvic fluid. 3. Mild colonic thickening of uncertain chronicity. Signer Name: Clemente Garduno MD Signed: 05/11/2021 10:25 AM Workstation Name: [id number]
--- NOTE | 2021-05-11 10:35 | Cat Scan Report ---
CTA CHEST WITH CONTRAST INDICATION / CLINICAL INFORMATION: Shortness of breath. Tachycardia. TECHNIQUE: Axial CT images were obtained through the chest after injection of Omnipaque 350, 100 cc I V contrast. 3 plane MIP and/or 3D reconstructions were produced. All CT scans at this location are pe rformed using CT dose reduction for ALARA by means of automated exposure control. COMPARISON: CTA chest 12/18/2019. FINDINGS: PULMONARY ARTERIES: No pulmonary emboli. THORACIC AORTA: No significant abnormality. HEART: No significant abnormality. CORONARY ARTERY CALCIFICATION: None. MEDIASTINUM / CHIKIS: No significant abnormality. PLEURA: No pleural effusion. No pneumothorax. LUNGS: Bilateral interstitial opacity remains with overall slight worsening. No new mass. ADDITIONAL FINDINGS: Mild fluid-filled esophagus. UPPER ABDOMEN: No acute findings. SKELETAL STRUCTURES: No significant osseous abnormality. IMPRESSION: 1. No CT evidence for pulmonary embolism. 2. Bilateral interstitial opacity remains with overall mild worsening 3. Mild fluid-filled esophagus. The stomach is also distended with fluid. Signer Name: Clemente Garduno MD Signed: 05/11/2021 10:31 AM Workstation Name: [id number]
--- NOTE | 2021-05-11 10:59 | Electrocardiograph Report ---
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
[2021-05-11] MEDS ORDERED: cefTRIAXone/NS 1 GM/50 ML 1 GM/50 ML BAG IV ONE (11:18)
[2021-05-11 11:29] LABS: Bilirubin,Urine NEG (Negative); Blood,Urine NEG (Negative); Color,Urine Amber (Yellow); Mucus,Urine FEW /HPF; Urobilinogen,Urine < 2.0 mg/dL (<2.0)
[2021-05-11] MEDS: NORepinephrine/NS 8 MG-250 ML 8 MG/250 ML INFUS..BTL IV SCH ×2 (14:38→18:53)
--- NOTE | 2021-05-11 17:10 | History and Physical Report ---
History of Present Illness Date of examination: 05/11/21 Date of admission: 05/11/21 14:35 Chief complaint: Right upper quadrant pain since 2 AM History of present illness: 51-year-old female with history of COPD and pancreatic cancer comes in for right upper quadrant pain since 2 AM. Pain is about 10 on a scale of 1-10. Also associated with nausea and vomiting. Patient is on radiation therapy for pancreatic cancer. Patient also has a history of pulmonary fibrosis and is on 2 L nasal cannula oxygen. Vomited about 3-4 times. No fever or chills. No aggravating or relieving factors. No exposure to coronavirus. - Past Medical History --Hypertension: Yes --Asthma: Yes (Pancreatic) --COPD: Yes --Additional medical history: Fibrosis of lungs - Surgical History -- hernia repair, Port right chest - Social History --Smoking Status: Former Smoker --Substance Use Type: None -Family history --Htn Review of Systems ROS: Stated complaint: abd pain Other details as noted in HPI Comment: All other systems reviewed and negative Constitutional: denies: chills, fever Eyes: denies: eye pain, vision change ENT: denies: ear pain, throat pain Respiratory: denies: cough, shortness of breath Cardiovascular: denies: chest pain, palpitations Gastrointestinal: abdominal pain, nausea, vomiting Genitourinary: denies: dysuria, discharge Musculoskeletal: denies: back pain, arthralgia Skin: denies: rash, lesions Neurological: denies: headache, weakness Medications and Allergies Allergies Allergy/AdvReac Type Severity Reaction Status Date / Time codeine Allergy Rash Verified 12/18/19 05:02 [From Tylenol-Codeine #3] neomycin Allergy Hives Verified 08/01/17 14:15 Home Medications Medication Instructions Recorded Confirmed Last Taken Type Esomeprazole Magnesium 40 mg PO DAILY 03/19/19 03/19/19 Unknown History Symbicort 160-4.5 Mcg Inhaler 4.5 mcg INHALATION BID 03/19/19 03/19/19 Unknown History Vitamin D (Nf) 5,000 unit PO DAILY 03/19/19 03/19/19 Unknown History Albuterol Sulfate 2.5 mg INHALATION Q6H PRN #1 03/21/19 Unknown Rx Arformoterol Nebu [Brovana Nebu] 15 mcg IH Q12HRT ml 03/21/19 Unknown Rx Budesonide [Pulmicort Respules] 0.5 mg IH Q12HRT nebu 03/21/19 Unknown Rx Fluticasone Propionate 50 mcg IH BID #1 03/21/19 Unknown Rx Ipratropium/Albuterol Sulfate 1 ampul IH TIDRT #100 ampul.neb 03/21/19 Unknown Rx [DUONEB *Not for PRN Use*] Montelukast [Singulair] 10 mg PO QPM #30 tablet 03/21/19 Unknown Rx Pantoprazole [Protonix TAB] 20 mg PO QDAY tablet. 03/21/19 Unknown Rx metFORMIN XR [Glucophage XR] 500 mg PO QDDIAB #60 tablet 03/21/19 Unknown Rx oxyCODONE /ACETAMINOPHEN [Percocet 1 tab PO Q6H PRN tablet 03/21/19 Unknown Rx 5/325 mg] predniSONE 30 mg PO BID #60 03/21/19 Unknown Rx Clair Root [Clair] 250 mg PO QID PRN #30 capsule 12/18/19 Unknown Rx Ondansetron [Zofran Odt] 4 mg PO Q8HR PRN #20 tab.rapdis 12/18/19 Unknown Rx Potassium Chloride [K-Dur] 20 meq PO QDAY #10 tablet 12/18/19 Unknown Rx Cetirizine HCl [Zyrtec 10mg tab] 10 mg PO QDAY #30 tablet 01/21/21 Unknown Rx Prednisone [predniSONE 5 mg (6-Day 5 mg PO .TAPER #1 tab.ds.pk 01/21/21 Unknown Rx Pack, 21 Tabs)] Active Meds: Active Medications NORepinephrine/NS 8 MG-250 ML (Norepinephrine/Ns 8 Mg-250 Ml (Double Conc)) 8 mg in 250 mls @ 3.75 mls/hr IV TITRATE ABRAHAN; Protocol Last Titration: 05/11/21 15:24 Dose: 30 mcg/min, 56.25 mls/hr Documented by: Exam - Constitutional Vitals: Temp Pulse Resp BP Pulse Ox 98.2 F 99 H 18 84/51 98 05/11/21 10:29 05/11/21 16:51 05/11/21 16:51 05/11/21 16:51 05/11/21 16:51 General appearance: Present: mild distress, well-nourished - EENT Eyes: Present: PERRL ENT: hearing intact, clear oral mucosa - Neck Neck: Present: supple, normal ROM - Respiratory Respiratory effort: normal Respiratory: bilateral: CTA - Cardiovascular Heart rate: 98 Rhythm: regular Heart Sounds: Present: S1 & S2. Absent: rub, click - Extremities Extremities: pulses symmetrical, No edema Peripheral Pulses: within normal limits - Abdominal General gastrointestinal: Present: tender, non-distended, normal bowel sounds Localized gastrointestinal: tender: RUQ, guarding: RUQ Female genitourinary: Present: normal - Integumentary Integumentary: Present: clear, warm, dry - Musculoskeletal Musculoskeletal: gait normal, strength equal bilaterally - Psychiatric Psychiatric: appropriate mood/affect, intact judgment & insight - Neurologic Neurologic: CNII-XII intact, moves all extremities - Allied Health Allied health notes reviewed: nursing, case management Results - Labs CBC & Chem 7: 05/12/21 04:08 05/12/21 04:08 Labs: Laboratory Last Values WBC 6.0 K/mm3 (4.5-11.0) 05/11/21 05:43 RBC 4.02 M/mm3 (3.65-5.03) 05/11/21 05:43 Hgb 12.8 gm/dl (10.1-14.3) 05/11/21 05:43 Hct 39.5 % (30.3-42.9) 05/11/21 05:43 MCV 98 fl (79-97) H 05/11/21 05:43 MCH 32 pg (28-32) 05/11/21 05:43 MCHC 32 % (30-34) 05/11/21 05:43 RDW 17.7 % (13.2-15.2) H 05/11/21 05:43 Plt Count 319 K/mm3 (140-440) 05/11/21 05:43 Lymph % (Auto) 10.8 % (13.4-35.0) L 05/11/21 05:43 [place] % (Auto) 2.5 % (0.0-7.3) 05/11/21 05:43 Eos % (Auto) 2.1 % (0.0-4.3) 05/11/21 05:43 Baso % (Auto) 0.5 % (0.0-1.8) 05/11/21 05:43 Lymph # (Auto) 0.6 K/mm3 (1.2-5.4) L 05/11/21 05:43 [place] # (Auto) 0.2 K/mm3 (0.0-0.8) 05/11/21 05:43 Eos # (Auto) 0.1 K/mm3 (0.0-0.4) 05/11/21 05:43 Baso # (Auto) 0.0 K/mm3 (0.0-0.1) 05/11/21 05:43 Seg Neutrophils % 84.1 % (40.0-70.0) H 05/11/21 05:43 Seg Neutrophils # 5.0 K/mm3 (1.8-7.7) 05/11/21 05:43 PT 16.0 Sec. (12.2-14.9) H 05/11/21 05:43 INR 1.16 (0.87-1.13) H 05/11/21 05:43 Sodium 139 mmol/L (137-145) 05/11/21 05:43 Potassium 3.6 mmol/L (3.6-5.0) 05/11/21 05:43 Chloride 102.5 mmol/L (98-107) 05/11/21 05:43 Carbon Dioxide 21 mmol/L (22-30) L 05/11/21 05:43 Anion Gap 19 mmol/L 05/11/21 05:43 BUN 4 mg/dL (7-17) L 05/11/21 05:43 Creatinine 0.4 mg/dL (0.6-1.2) L 05/11/21 05:43 Estimated GFR > 60 ml/min 05/11/21 05:43 BUN/Creatinine Ratio 10 % 05/11/21 05:43 Glucose 100 mg/dL (65-100) 05/11/21 05:43 Lactic Acid 4.20 mmol/L (0.7-2.0) H* 05/11/21 12:28 Calcium 8.3 mg/dL (8.4-10.2) L 05/11/21 05:43 Total Bilirubin 2.10 mg/dL (0.1-1.2) H 05/11/21 05:43 Direct Bilirubin 1.4 mg/dL (0-0.2) H 05/11/21 05:43 Indirect Bilirubin 0.7 mg/dL 05/11/21 05:43 AST 335 units/L (5-40) H 05/11/21 05:43 ALT 57 units/L (7-56) H 05/11/21 05:43 Alkaline Phosphatase 339 units/L (35-129) H 05/11/21 05:43 Total Protein 7.5 g/dL (6.3-8.2) 05/11/21 05:43 Albumin 2.4 g/dL (3.9-5) L 05/11/21 05:43 Albumin/Globulin Ratio 0.5 % 05/11/21 05:43 Lipase 3 units/L (13-60) L 05/11/21 05:43 Urine Color [place] (Yellow) 05/11/21 11:18 Urine Turbidity Clear (Clear) 05/11/21 11:18 Urine pH 6.0 (5.0-7.0) 05/11/21 11:18 Ur Specific [place] 1.035 (1.003-1.030) H 05/11/21 11:18 Urine Protein 100 mg/dl mg/dL (Negative) 05/11/21 11:18 Urine Glucose (UA) Neg mg/dL (Negative) 05/11/21 11:18 Urine Ketones Neg mg/dL (Negative) 05/11/21 11:18 Urine Blood Neg (Negative) 05/11/21 11:18 Urine Nitrite Neg (Negative) 05/11/21 11:18 Urine Bilirubin Neg (Negative) 05/11/21 11:18 Urine Urobilinogen < 2.0 mg/dL (<2.0) 05/11/21 11:18 Ur Leukocyte Esterase Neg (Negative) 05/11/21 11:18 Urine WBC (Auto) 2.0 /HPF (0.0-6.0) 05/11/21 11:18 Urine RBC (Auto) 1.0 /HPF (0.0-6.0) 05/11/21 11:18 Urine Mucus Few /HPF 05/11/21 11:18 Microbiology: Microbiology 05/11/21 12:28 Peripheral/Venous Blood Culture - Preliminary Culture in Progress 05/11/21 12:28 Peripheral/Venous Blood Culture - Preliminary Culture in Progress - Imaging and Cardiology Chest x-ray: report reviewed CT scan - abdomen: report reviewed CT scan - chest: report reviewed Imaging and Cardiology: Chest x-ray Interstitial lung disease or early pulmonary fibrosis are suspected and unchanged No acute changes since 03/19/[address] evidence for pulmonary embolism Bilateral interstitial opacity remains with overall mild worsening Mild fluid filled esophagus the stomach was also distended with fluid Abdomen/pelvis CT Persistent pancreatic carcinoma with indwelling metallic stent there is suspected that the stent is in fluid Mild pelvic fluid Mild colonic thickening of uncertain chronicity. Assessment and Plan Assessment and plan: Critical care statement The high probability OF a clinically significant sudden or life-threatening deterioration of the cardiorespiratory system and endocrine system required my full and direct attention, intervention and postoperative management. The aggr egate critical care time was 40 minutes. The time is in addition to time spent performing reported procedures but includes the followin: Data review and interpretation 2: Patient assessment and monitoring of vital signs 3: Documentation 4:: Medication orders and management Advance Directives: Yes (Full code) VTE prophylaxis?: Chemical Plan of care discussed with patient/family: Yes - Patient Problems (1) Sepsis Current Visit: Yes Status: Acute Plan to address problem: Etiology of source unclear Broad-spectrum antibiotics ID consult and dining services manager consult requested (2) Hypotension Current Visit: Yes Status: Acute Plan to address problem: Hypotension secondary to sepsis Patient on Levophed and vasopressin (3) Transaminitis Current Visit: Yes Status: Acute Plan to address problem: ?Secondary to sepsis/pancreatic cancer Etiology unclear Gallbladder looks normal Common bile duct looks nearly normal GI consult Hepatitis profile requested (4) Lactic acidosis Current Visit: Yes Status: Acute Plan to address problem: Elevated lactic acid secondary to sepsis (5) Pancreatic cancer Current Visit: Yes Status: Chronic Qualifiers: Pancreatic malignancy location: body of pancreas Qualified Code(s): C25.1 - Malignant neoplasm of body of pancreas Plan to address problem: Patient has history of pancreatic cancer and is on radiation therapy Patient to follow-up with radiation oncology/oncology as outpatient (6) DVT prophylaxis Current Visit: Yes Status: Acute Plan to address problem: Anticoagulation GI prophylaxis (7) Advance care planning Current Visit: Yes Status: Acute Plan to address problem: Disease education conducted, care plan discussed, diagnosis discussed, prognosis discussed, patient acknowledges understanding and agrees with care plan. +30 minutes.
[2021-05-11] MEDS ORDERED: SODIUM CHLORIDE 0.9% 1000 ML 1,000 ML ONE (19:49)
[2021-05-11] MEDS: VASOPRESSIN 20 UNIT in SODIUM CHLORIDE 0.9% 100 ML IV SCH (20:30)
[2021-05-11] MEDS ORDERED: METOCLOPRAMIDE 10 MG/2 ML INJ IV PRN (21:40)
[2021-05-11] MEDS ORDERED: ACETAMINOPHEN 325 MG TAB PO PRN (21:40)
[2021-05-11] MEDS ORDERED: VANCOMYCIN PHARMACY TO DOSE IV SCH (22:00)
[2021-05-11] MEDS ORDERED: FAMOTIDINE 20 MG/2 ML INJ IV SCH (22:00)
[2021-05-11] MEDS ORDERED: VANCOMYCIN 1,500 MG in SODIUM CHLORIDE 0.9% 500 ML 500 ML IV ONE (22:30)
[2021-05-11] MEDS: HEPARIN 5,000 UNIT/1 ML VIAL SUB-Q SCH (23:29)
[2021-05-11] MEDS: CEFEPIME/NS 2 GM/100 ML 2 GM/100 ML BAG IV SCH (23:30)
[2021-05-12] MEDS: SODIUM CHLORIDE 0.9% 1000 ML 1,000 ML IV SCH ×2 (01:00→12:39)
[2021-05-12] MEDS: NORepinephrine/NS 8 MG-250 ML 8 MG/250 ML INFUS..BTL IV SCH ×3 (01:01→12:40)
[2021-05-12] MEDS: MORPHINE 2 MG/1 ML INJ IV PRN ×2 (02:16→10:15)
[2021-05-12] MEDS: ONDANSETRON 4 MG/2 ML INJ IV PRN (02:16)
[2021-05-12] MEDS: VASOPRESSIN 20 UNIT in SODIUM CHLORIDE 0.9% 100 ML IV SCH (04:46)
[2021-05-12] MEDS: CEFEPIME/NS 2 GM/100 ML 2 GM/100 ML BAG IV SCH ×3 (05:00→21:03)
[2021-05-12 05:26] LABS: Hematocrit 33.4 % (30.3-42.9); Hemoglobin 10.8 gm/dl (10.1-14.3); Mean Corpuscular HGB Conc 32 % (30-34); Mean Corpuscular Volume 98 fl (79-97); Platelet Count 243 K/mm3 (140-440); Red Blood Count 3.39 M/mm3 (3.65-5.03); Red Cell Distribution Width 17.7 % (13.2-15.2)
[2021-05-12 05:47] LABS: Alanine Aminotransferase 61 units/L (7-56); Albumin 1.8 g/dL (3.9-5); Blood Urea Nitrogen 4 mg/dL (7-17); Calcium 6.4 mg/dL (8.4-10.2); Hemolysis Index 6
[2021-05-12 06:14] LABS: BUN/Creatinine Ratio 8
[2021-05-12 06:31] LABS: Anisocytosis 1+; Band Neutrophils # (Manual) 1.9 K/mm3; Platelet Estimate Consistent w Auto; Total Cells Counted 200
[2021-05-12] MEDS ORDERED: ESOMEPRAZOLE MAGNESIUM 40 MG PO SCH (10:00)
[2021-05-12] MEDS: CETIRIZINE 10 MG TAB PO SCH (10:16)
[2021-05-12] MEDS: CHOLECALCIFEROL (VIT D3) 5,000 UNIT TAB PO SCH (10:16)
[2021-05-12] MEDS: predniSONE 10 MG TAB PO SCH ×2 (10:16→21:05)
[2021-05-12] MEDS: PANTOPRAZOLE 40 MG TAB PO SCH (10:16)
[2021-05-12] MEDS: POTASSIUM CHLORIDE 20 MEQ 20 MEQ/100 ML BAG IV SCH ×2 (10:17→11:49)
[2021-05-12] MEDS: HEPARIN 5,000 UNIT/1 ML VIAL SUB-Q SCH (10:38)
[2021-05-12] MEDS ORDERED: LACTATED RINGERS 1,000 ML IV ONE (10:50)
[2021-05-12] MEDS: BUDESONIDE 0.5 MG/2 ML NEBU IH SCH ×2 (10:59→20:44)
[2021-05-12] MEDS: ARFORMOTEROL 15 MCG/2 ML NEBU IH SCH ×2 (11:04→20:44)
[2021-05-12] MEDS ORDERED: DEXTROSE 50% IN WATER (25GM) 50 ML SYRINGE IV ONE (11:52)
[2021-05-12] MEDS ORDERED: DEXTROSE 50% IN WATER (25GM) 50 ML SYRINGE IV PRN (11:57)
--- NOTE | 2021-05-12 12:08 | Gastroenterology Consultation ---
History of Present Illness - Reason for Consult Consult date: 05/12/21 abnormal liver enzymes, abd pain Requesting physician: ESTHER VOGT - History of Present Illness The patient is a 51 yo female with history pancreatic cancer who presents with abdominal pain and sepsis. History gathered from combination of chart review, patient, and from patient's oncologist (Dr Tristan over the phone). Pt with pancreatic head cancer for a couple years, not deemed to be surgical candidate due to co-morbidities (advanced pulm fibrosis) s/p chemo and radiation with stable appearance of pancreatic head mass. unlikely a candidate for further treatment due to co-morbidities per pt's oncologist. pt presents with sudden onset abd pain/epigastric with chills at 2 AM overnight. new type of symptoms for pt. had fever of 100.4 on wbc of 22k on admission ,also hypotensive and now in ICU on low dose pressors. appears comfortable and non-toxic appearing at time of exam. still with abd discomfort but improved since admission. she has a chronic biliary stent for at least 1 year (metallic stent). ct scan shows pancreatic head mass (known), with stent in place with biliary dilatation proximal to stent. Past History Past Medical History: other (pancreatic cancer, pulmonary fibrosis, copd) Past Surgical History: Other (port placement) Social history: no significant social history Medications and Allergies Allergies Allergy/AdvReac Type Severity Reaction Status Date / Time codeine Allergy Rash Verified 12/18/19 05:02 [From Tylenol-Codeine #3] neomycin Allergy Hives Verified 08/01/17 14:15 Home Medications Medication Instructions Recorded Confirmed Last Taken Type Esomeprazole Magnesium 40 mg PO DAILY 03/19/19 03/19/19 Unknown History Symbicort 160-4.5 Mcg Inhaler 4.5 mcg INHALATION BID 03/19/19 03/19/19 Unknown History Vitamin D (Nf) 5,000 unit PO DAILY 03/19/19 03/19/19 Unknown History Albuterol Sulfate 2.5 mg INHALATION Q6H PRN #1 03/21/19 Unknown Rx Arformoterol Nebu [Brovana Nebu] 15 mcg IH Q12HRT ml 03/21/19 Unknown Rx Budesonide [Pulmicort Respules] 0.5 mg IH Q12HRT nebu 03/21/19 Unknown Rx Fluticasone Propionate 50 mcg IH BID #1 03/21/19 Unknown Rx Ipratropium/Albuterol Sulfate 1 ampul IH TIDRT #100 ampul.neb 03/21/19 Unknown Rx [DUONEB *Not for PRN Use*] Montelukast [Singulair] 10 mg PO QPM #30 tablet 03/21/19 Unknown Rx Pantoprazole [Protonix TAB] 20 mg PO QDAY tablet.dr 03/21/19 Unknown Rx metFORMIN XR [Glucophage XR] 500 mg PO QDDIAB #60 tablet 03/21/19 Unknown Rx oxyCODONE /ACETAMINOPHEN [Percocet 1 tab PO Q6H PRN tablet 03/21/19 Unknown Rx 5/325 mg] predniSONE 30 mg PO BID #60 03/21/19 Unknown Rx Clair Root [Clair] 250 mg PO QID PRN #30 capsule 12/18/19 Unknown Rx Ondansetron [Zofran Odt] 4 mg PO Q8HR PRN #20 tab.rapdis 12/18/19 Unknown Rx Potassium Chloride [K-Dur] 20 meq PO QDAY #10 tablet 12/18/19 Unknown Rx Cetirizine HCl [Zyrtec 10mg tab] 10 mg PO QDAY #30 tablet 01/21/21 Unknown Rx Prednisone [predniSONE 5 mg (6-Day 5 mg PO .TAPER #1 tab.ds.pk 01/21/21 Unknown Rx Pack, 21 Tabs)] Active Meds: Active Medications Acetaminophen (Acetaminophen 325 Mg Tab) 650 mg PO Q4H PRN PRN Reason: Pain MILD(1-3)/Fever >100.5/WOODS Arformoterol Tartrate (Arformoterol 15 Mcg/2 Ml Nebu) 15 mcg IH Q12HRT [facility] Last Admin: 05/12/21 11:04 Dose: 15 mcg Documented by: Budesonide (Budesonide 0.5 Mg/2 Ml Nebu) 0.5 mg IH Q12HRT [facility] Last Admin: 05/12/21 10:59 Dose: 0.5 mg Documented by: Cetirizine HCl (Cetirizine 10 Mg Tab) 10 mg PO QDAY [facility] Last Admin: 05/12/21 10:16 Dose: 10 mg Documented by: Cholecalciferol (Cholecalciferol (Vit D3) 5,000 Unit Tab) 5,000 unit PO DAILY [facility] Last Admin: 05/12/21 10:16 Dose: 5,000 unit Documented by: Dextrose (Dextrose 50% In Water (25gm) 50 Ml Syringe) 25 ml IV Q30MIN PRN; Protocol PRN Reason: Hypoglycemia Dextrose (Dextrose 50% In Water (25gm) 50 Ml Syringe) 50 ml IV Q30MIN PRN; Protocol PRN Reason: Hypoglycemia Heparin Sodium (Porcine) (Heparin 5,000 Unit/1 Ml Vial) 5,000 unit SUB-Q Q12HR [facility] Last Admin: 05/12/21 10:38 Dose: 5,000 unit Documented by: NORepinephrine/NS 8 MG-250 ML (Norepinephrine/Ns 8 Mg-250 Ml (Double Conc)) 8 mg in 250 mls @ 3.75 mls/hr IV TITRATE [facility]; Protocol Last Titration: 05/12/21 06:17 Dose: 20 mcg/min, 37.5 mls/hr Documented by: Vasopressin 20 unit/ Sodium (Chloride) 101 mls @ 9.09 mls/hr IV TITR [facility]; Protocol Last Admin: 05/12/21 04:46 Dose: 0.03 units/min, 9.09 mls/hr Documented by: Sodium Chloride (Nacl 0.9% 1000 Ml) 1,000 mls @ 100 mls/hr IV DIRECT [facility] Last Admin: 05/12/21 01:00 Dose: 100 mls/hr Documented by: Cefepime HCl (Cefepime/Ns 2 Gm/100 Ml) 2 gm in 100 mls @ 200 mls/hr IV Q8H [facility]; Protocol Last Admin: 05/12/21 05:00 Dose: 200 mls/hr Documented by: Vancomycin HCl 1,250 mg/ (Sodium Chloride) 275 mls @ 166.667 mls/hr IV Q12H [facility] Metoclopramide HCl (Metoclopramide 10 Mg/2 Ml Inj) 10 mg IV Q6H PRN PRN Reason: Nausea And Vomiting Montelukast Sodium (Montelukast 10 Mg Tab) 10 mg PO QPM [facility] Morphine Sulfate (Morphine 2 Mg/1 Ml Inj) 2 mg IV Q4H PRN PRN Reason: Pain, Moderate (4-6) Last Admin: 05/12/21 10:15 Dose: 2 mg Documented by: Ondansetron HCl (Ondansetron 4 Mg/2 Ml Inj) 4 mg IV Q8H PRN PRN Reason: Nausea And Vomiting Last Admin: 05/12/21 02:16 Dose: 4 mg Documented by: Pantoprazole Sodium (Pantoprazole 40 Mg Tab) 40 mg PO DAILY [facility] Last Admin: 05/12/21 10:16 Dose: 40 mg Documented by: Prednisone (Prednisone 10 Mg Tab) 30 mg PO BID [facility] Last Admin: 05/12/21 10:16 Dose: 30 mg Documented by: Sodium Chloride (Sodium Chloride 0.9% 10 Ml Flush Syringe) 10 ml IV BID [facility] Last Admin: 05/11/21 23:59 Dose: 10 ml Documented by: Sodium Chloride (Sodium Chloride 0.9% 10 Ml Flush Syringe) 10 ml IV PRN PRN PRN Reason: LINE FLUSH reviewed/updated patient's home and current medications Review of Systems - Review of Systems All systems: negative (per HPI) Exam - Constitutional Vital Signs: Temp Pulse Resp BP Pulse Ox 98.9 F 74 26 H 101/60 98 05/12/21 03:17 05/12/21 08:15 05/12/21 10:15 05/12/21 08:15 05/12/21 08:00 General appearance: no acute distress - EENT Eyes: PERRL, EOM intact - Neck Neck: supple - Respiratory Respiratory effort: normal Respiratory: bilateral: CTA - Cardiovascular Rhythm: regular Heart Sounds: Present: S1 & S2 - Gastrointestinal General gastrointestinal: Present: soft, tender (mild epigastric/ruq ttp), non-distended - Integumentary Integumentary: Present: clear, warm - Neurologic Neurological: alert and oriented x3 - Psychiatric Psychiatric: appropriate mood/affect - Labs CBC & Chem 7: 05/12/21 04:08 05/12/21 04:08 Lab Results: Laboratory Results - last 24 hr 05/11/21 05/12/21 05/12/21 12:28 04:08 04:08 WBC RBC Hgb Hct MCV MCH MCHC RDW Plt Count Add Manual Diff Total Counted Seg Neuts % (Manual) Band Neutrophils % Lymphocytes % (Manual) Monocytes % (Manual) Eosinophils % (Manual) Nucleated RBC % Seg Neutrophils # Man Band Neutrophils # Lymphocytes # (Manual) Abs React Lymphs (Man) Monocytes # (Manual) Eosinophils # (Manual) Basophils # (Manual) Metamyelocytes # Myelocytes # Promyelocytes # Blast Cells # WBC Morphology Hypersegmented Neuts Hyposegmented Neuts Hypogranular Neuts Smudge Cells Toxic Granulation Toxic Vacuolation Dohle Bodies Pelger-Huet Anomaly Elizabeth Rods Platelet Estimate Clumped Platelets Plt Clumps, EDTA Large Platelets Giant Platelets Platelet Satelliting Plt Morphology Comment RBC Morphology Dimorphic RBCs Polychromasia Hypochromasia Poikilocytosis Anisocytosis Microcytosis Macrocytosis Spherocytes Pappenheimer Bodies Sickle Cells Target Cells Tear Drop Cells Ovalocytes Helmet Cells [place] Bodies [place] Rings Marcin Cells Bite Cells Crenated Cell Elliptocytes Acanthocytes (Spur) Rouleaux Hemoglobin C Crystals Schistocytes Malaria parasites [place] Bodies Hem Pathologist Commnt Sodium Potassium Chloride Carbon Dioxide Anion Gap BUN Creatinine Estimated GFR BUN/Creatinine Ratio Glucose POC Glucose Hemoglobin A1c 5.2 Lactic Acid 4.20 H* 4.50 H* Calcium Total Bilirubin AST ALT Alkaline Phosphatase Total Protein Albumin Albumin/Globulin Ratio 05/12/21 05/12/21 05/12/21 04:08 04:08 09:47 WBC 22.8 H RBC 3.39 L Hgb 10.8 Hct 33.4 D MCV 98 H MCH 32 MCHC 32 RDW 17.7 H Plt Count 243 Add Manual Diff Complete Total Counted 200 Seg Neuts % (Manual) 85.5 H Band Neutrophils % 8.5 Lymphocytes % (Manual) 2.0 L Monocytes % (Manual) 3.0 Eosinophils % (Manual) 1.0 Nucleated RBC % Not Reportable Seg Neutrophils # Man 19.5 H Band Neutrophils # 1.9 Lymphocytes # (Manual) 0.5 L Abs React Lymphs (Man) 0.0 Monocytes # (Manual) 0.7 Eosinophils # (Manual) 0.2 Basophils # (Manual) 0.0 Metamyelocytes # 0.0 Myelocytes # 0.0 Promyelocytes # 0.0 Blast Cells # 0.0 WBC Morphology Not Reportable Hypersegmented Neuts Not Reportable Hyposegmented Neuts Not Reportable Hypogranular Neuts Not Reportable Smudge Cells Not Reportable Toxic Granulation Not Reportable Toxic Vacuolation Not Reportable Dohle Bodies Not Reportable Pelger-Huet Anomaly Not Reportable Elizabeth Rods Not Reportable Platelet Estimate Consistent w auto Clumped Platelets Not Reportable Plt Clumps, EDTA Not Reportable Large Platelets Not Reportable Giant Platelets Not Reportable Platelet Satelliting Not Reportable Plt Morphology Comment Not Reportable RBC Morphology Not Reportable Dimorphic RBCs Not Reportable Polychromasia Not Reportable Hypochromasia Not Reportable Poikilocytosis Not Reportable Anisocytosis 1+ Microcytosis Not Reportable Macrocytosis Not Reportable Spherocytes Not Reportable Pappenheimer Bodies Not Reportable Sickle Cells Not Reportable Target Cells Not Reportable Tear Drop Cells Not Reportable Ovalocytes Not Reportable Helmet Cells Not Reportable [place] Bodies Not Reportable [place] Rings Not Reportable [place] Cells Not Reportable Bite Cells Not Reportable Crenated Cell Not Reportable Elliptocytes Not Reportable Acanthocytes (Spur) Not Reportable Rouleaux Not Reportable Hemoglobin C Crystals Not Reportable Schistocytes Not Reportable Malaria parasites Not Reportable [place] Bodies Not Reportable Hem Pathologist Commnt No Sodium 141 Potassium 3.3 L Chloride 108.9 H Carbon Dioxide 17 L Anion Gap 18 BUN 4 L Creatinine 0.5 L Estimated GFR > 60 BUN/Creatinine Ratio 8 Glucose 106 H POC Glucose Hemoglobin A1c Lactic Acid 2.60 H* Calcium 6.4 L D Total Bilirubin 2.10 H AST 156 H ALT 61 H Alkaline Phosphatase 317 H Total Protein 5.4 L D Albumin 1.8 L Albumin/Globulin Ratio 0.5 05/12/21 05/12/21 11:47 Unknown WBC RBC Hgb Hct MCV MCH MCHC RDW Plt Count Add Manual Diff Total Counted Seg Neuts % (Manual) Band Neutrophils % Lymphocytes % (Manual) Monocytes % (Manual) Eosinophils % (Manual) Nucleated RBC % Seg Neutrophils # Man Band Neutrophils # Lymphocytes # (Manual) Abs React Lymphs (Man) Monocytes # (Manual) Eosinophils # (Manual) Basophils # (Manual) Metamyelocytes # Myelocytes # Promyelocytes # Blast Cells # WBC Morphology Hypersegmented Neuts Hyposegmented Neuts Hypogranular Neuts Smudge Cells Toxic Granulation Toxic Vacuolation Dohle Bodies Pelger-Huet Anomaly Elizabeth Rods Platelet Estimate Clumped Platelets Plt Clumps, EDTA Large Platelets Giant Platelets Platelet Satelliting Plt Morphology Comment RBC Morphology Dimorphic RBCs Polychromasia Hypochromasia Poikilocytosis Anisocytosis Microcytosis Macrocytosis Spherocytes Pappenheimer Bodies Sickle Cells Target Cells Tear Drop Cells Ovalocytes Helmet Cells [place] Bodies [place] Rings Marcin Cells Bite Cells Crenated Cell Elliptocytes Acanthocytes (Spur) Rouleaux Hemoglobin C Crystals Schistocytes Malaria parasites [place] Bodies Hem Pathologist Commnt Sodium Potassium Chloride Carbon Dioxide Anion Gap BUN Creatinine Estimated GFR BUN/Creatinine Ratio Glucose POC Glucose 59 L Hemoglobin A1c Lactic Acid 3.30 H* Calcium Total Bilirubin AST ALT Alkaline Phosphatase Total Protein Albumin Albumin/Globulin Ratio - Imaging CT Scan: report reviewed Assessment and Plan 1. Abnormal liver enzymes with biliary dilatation - biliary stent with dilatation proximal to stent 2. History of pancreatic head cancer - s/p chemo/radiation, not a surgical candidate 3. Sepsis/shock - in ICU on pressors, elevated wbc and fever on admission, ? cholangitis. -discussed with ICU PROFESSIONAL FEE CODER. cont broad spectrum abx and obtain MRCP. if stent occlusion/biliary obstruction, would recommend IR consult for PTC drain. monitor labs and cont current care otherwise per ICU
[2021-05-12] MEDS: VANCOMYCIN 1,250 MG in SODIUM CHLORIDE 0.9% 250ML 250 ML IV SCH (14:37)
[2021-05-12 15:16] LABS: Hepatitis C Virus Antibody Non-Reactive (NonReactive)
[2021-05-12 15:25] LABS: Hepatitis B Surface Antigen Nonreactive (Negative)
--- NOTE | 2021-05-12 15:36 | Consultation ---
History of Present Illness Consult date: 05/12/21 Requesting physician: ESTHER VOGT Reason for consult: other (critical care management) History of present illness: 51-year-old female with history of COPD and pancreatic cancer comes in for right upper quadrant pain since 2 AM. Pain is about 10 on a scale of 1-10. Also associated with nausea and vomiting. Patient is on radiation therapy for pancreatic cancer. Patient also has a history of pulmonary fibrosis and is on 2 L nasal cannula oxygen. Vomited about 3-4 times. No fever or chills. No aggravating or relieving factors. No exposure to coronavirus. A critical care consult was placed. Patient seen and examined. Vitals, labs, medications, chart and imaging reviewed. Discussed with nursing and respiratory staff. On going hypotension requiring vasopressor support-she is currently on Vasopressin and Norepinephrine She has a right femoral CVL - Past Medical History --Hypertension: Yes --Asthma: Yes (Pancreatic) --COPD: Yes --Additional medical history: Fibrosis of lungs - Surgical History -- hernia repair, Port right chest - Social History --Smoking Status: Former Smoker --Substance Use Type: None -Family history --Htn Past History Past Medical History: other (pancreatic cancer, pulmonary fibrosis, copd) Past Surgical History: Other (port placement) Social history: no significant social history Medications and Allergies Allergies Allergy/AdvReac Type Severity Reaction Status Date / Time codeine Allergy Rash Verified 12/18/19 05:02 [From Tylenol-Codeine #3] methylprednisolone Allergy Anaphylaxis Verified 05/13/21 15:13 neomycin Allergy Hives Verified 08/01/17 14:15 Home Medications Medication Instructions Recorded Confirmed Last Taken Type Esomeprazole Magnesium 40 mg PO DAILY 03/19/19 03/19/19 Unknown History Symbicort 160-4.5 Mcg Inhaler 4.5 mcg INHALATION BID 03/19/19 03/19/19 Unknown History Vitamin D (Nf) 5,000 unit PO DAILY 03/19/19 03/19/19 Unknown History Albuterol Sulfate 2.5 mg INHALATION Q6H PRN #1 03/21/19 Unknown Rx Arformoterol Nebu [Brovana Nebu] 15 mcg IH Q12HRT ml 03/21/19 Unknown Rx Budesonide [Pulmicort Respules] 0.5 mg IH Q12HRT nebu 03/21/19 Unknown Rx Fluticasone Propionate 50 mcg IH BID #1 03/21/19 Unknown Rx Ipratropium/Albuterol Sulfate 1 ampul IH TIDRT #100 ampul.neb 03/21/19 Unknown Rx [DUONEB *Not for PRN Use*] Montelukast [Singulair] 10 mg PO QPM #30 tablet 03/21/19 Unknown Rx Pantoprazole [Protonix TAB] 20 mg PO QDAY tablet.dr 03/21/19 Unknown Rx metFORMIN XR [Glucophage XR] 500 mg PO QDDIAB #60 tablet 03/21/19 Unknown Rx oxyCODONE /ACETAMINOPHEN [Percocet 1 tab PO Q6H PRN tablet 03/21/19 Unknown Rx 5/325 mg] predniSONE 30 mg PO BID #60 03/21/19 Unknown Rx Clair Root [Clair] 250 mg PO QID PRN #30 capsule 12/18/19 Unknown Rx Ondansetron [Zofran Odt] 4 mg PO Q8HR PRN #20 tab.rapdis 12/18/19 Unknown Rx Potassium Chloride [K-Dur] 20 meq PO QDAY #10 tablet 12/18/19 Unknown Rx Cetirizine HCl [Zyrtec 10mg tab] 10 mg PO QDAY #30 tablet 01/21/21 Unknown Rx Prednisone [predniSONE 5 mg (6-Day 5 mg PO .TAPER #1 tab.ds.pk 01/21/21 Unknown Rx Pack, 21 Tabs)] Active Meds: Active Medications Acetaminophen (Acetaminophen 325 Mg Tab) 650 mg PO Q4H PRN PRN Reason: Pain MILD(1-3)/Fever >100.5/WOODS Arformoterol Tartrate (Arformoterol 15 Mcg/2 Ml Nebu) 15 mcg IH Q12HRT FORMERLY [facility], 1928–1983 Last Admin: 05/12/21 11:04 Dose: 15 mcg Documented by: Budesonide (Budesonide 0.5 Mg/2 Ml Nebu) 0.5 mg IH Q12HRT [facility], [facility]–1983 Last Admin: 05/12/21 10:59 Dose: 0.5 mg Documented by: Cetirizine HCl (Cetirizine 10 Mg Tab) 10 mg PO QDAY [facility], [facility]1983 Last Admin: 05/12/21 10:16 Dose: 10 mg Documented by: Cholecalciferol (Cholecalciferol (Vit D3) 5,000 Unit Tab) 5,000 unit PO DAILY ABRAHAN Last Admin: 05/12/21 10:16 Dose: 5,000 unit Documented by: Dextrose (Dextrose 50% In Water (25gm) 50 Ml Syringe) 25 ml IV Q30MIN PRN; Protocol PRN Reason: Hypoglycemia Last Admin: 05/12/21 11:59 Dose: 20 ml Documented by: Dextrose (Dextrose 50% In Water (25gm) 50 Ml Syringe) 50 ml IV Q30MIN PRN; Protocol PRN Reason: Hypoglycemia Heparin Sodium (Porcine) (Heparin 5,000 Unit/1 Ml Vial) 5,000 unit SUB-Q Q12HR ABRAHAN Last Admin: 05/12/21 10:38 Dose: 5,000 unit Documented by: NORepinephrine/NS 8 MG-250 ML (Norepinephrine/Ns 8 Mg-250 Ml (Double Conc)) 8 mg in 250 mls @ 3.75 mls/hr IV TITRATE ABRAHAN; Protocol Last Admin: 05/12/21 12:40 Dose: 15 mcg/min, 28.125 mls/hr Documented by: Vasopressin 20 unit/ Sodium (Chloride) 101 mls @ 9.09 mls/hr IV TITR ABRAHAN; Protocol Last Admin: 05/12/21 04:46 Dose: 0.03 units/min, 9.09 mls/hr Documented by: Sodium Chloride (Nacl 0.9% 1000 Ml) 1,000 mls @ 100 mls/hr IV DIRECT ABRAHAN Last Admin: 05/12/21 12:39 Dose: 100 mls/hr Documented by: Cefepime HCl (Cefepime/Ns 2 Gm/100 Ml) 2 gm in 100 mls @ 200 mls/hr IV Q8H ABRAHAN; Protocol Last Admin: 05/12/21 14:21 Dose: 200 mls/hr Documented by: Vancomycin HCl 1,250 mg/ (Sodium Chloride) 275 mls @ 166.667 mls/hr IV Q12H ABRAHNA Last Admin: 05/12/21 14:37 Dose: 166.667 mls/hr Documented by: Metoclopramide HCl (Metoclopramide 10 Mg/2 Ml Inj) 10 mg IV Q6H PRN PRN Reason: Nausea And Vomiting Montelukast Sodium (Montelukast 10 Mg Tab) 10 mg PO QPM ABRAHAN Morphine Sulfate (Morphine 2 Mg/1 Ml Inj) 2 mg IV Q4H PRN PRN Reason: Pain, Moderate (4-6) Last Admin: 05/12/21 10:15 Dose: 2 mg Documented by: Ondansetron HCl (Ondansetron 4 Mg/2 Ml Inj) 4 mg IV Q8H PRN PRN Reason: Nausea And Vomiting Last Admin: 05/12/21 02:16 Dose: 4 mg Documented by: Pantoprazole Sodium (Pantoprazole 40 Mg Tab) 40 mg PO DAILY [facility], [facility] Last Admin: 05/12/21 10:16 Dose: 40 mg Documented by: Prednisone (Prednisone 10 Mg Tab) 30 mg PO BID [facility], [facility] Last Admin: 05/12/21 10:16 Dose: 30 mg Documented by: Sodium Chloride (Sodium Chloride 0.9% 10 Ml Flush Syringe) 10 ml IV BID [facility], [facility] Last Admin: 05/11/21 23:59 Dose: 10 ml Documented by: Sodium Chloride (Sodium Chloride 0.9% 10 Ml Flush Syringe) 10 ml IV PRN PRN PRN Reason: LINE FLUSH Review of Systems Constitutional: weight loss, fatigue, weakness, poor appetite, no fever, no chills, no sweats, no night sweats Cardiovascular: shortness of breath, no chest pain, no orthopnea, no palpitations, no edema, no syncope, no lightheadedness Respiratory: cough, shortness of breath, no hemoptysis Gastrointestinal: abdominal pain, nausea, vomiting, excessive gas, no diarrhea, no constipation Genitourinary Female: no urinary frequency, no incomplete emptying, no difficulty voiding, no hematuria Neurological: no transient paralysis, no paralysis, no parathesias, no seizures, no syncope, no tremors, no ataxia, no lack of coordination Physical Examination Vital signs: Vital Signs Temp Pulse Resp BP Pulse Ox 98.1 F 80 18 130/90 98 05/11/21 05:02 05/11/21 05:02 05/11/21 05:02 05/11/21 05:02 05/11/21 05:02 General appearance: Present: no acute distress, chronically ill looking, on supplemental oxygen at 2L Right chest wall port - EENT Eyes: Present: PERRL, EOM intact ENT: hearing intact, clear oral mucosa, dentition normal - Neck Neck: Present: supple, normal ROM - Respiratory Respiratory effort: normal Respiratory: bilateral: diminished - Cardiovascular Rhythm: regular Heart Sounds: Present: S1 & S2. Absent: systolic murmur, diastolic murmur - Extremities Extremities: no ischemia, pulses intact, pulses symmetrical, No edema, normal temperature, normal color, Full ROM Peripheral Pulses: within normal limits - Abdominal General gastrointestinal: soft, mildly tender, no peritoneal signs, , non-dis tended, normal bowel sounds Rivas cather in RIght femoral CVL - Integumentary Integumentary: Present: warm, dry - Psychiatric Psychiatric: cooperative - Neurologic Neurologic: CNII-XII intact, no focal deficits, moves all extremities Results - Laboratory Findings CBC and BMP: 05/14/21 06:15 05/14/21 15:20 PT/INR, D-dimer PT 16.0 Sec. (12.2-14.9) H 05/11/21 05:43 INR 1.16 (0.87-1.13) H 05/11/21 05:43 Abnormal lab findings: Abnormal Labs 05/11/21 05/11/21 05/11/21 05:43 05:43 05:43 WBC RBC MCV 98 H RDW 17.7 H Lymph % (Auto) 10.8 L Lymph # (Auto) 0.6 L Seg Neutrophils % 84.1 H Seg Neuts % (Manual) Lymphocytes % (Manual) Seg Neutrophils # Man Lymphocytes # (Manual) PT 16.0 H INR 1.16 H Potassium Chloride Carbon Dioxide 21 L BUN 4 L Creatinine 0.4 L Glucose POC Glucose Lactic Acid Calcium 8.3 L Total Bilirubin 2.10 H Direct Bilirubin 1.4 H AST 335 H ALT 57 H Alkaline Phosphatase 339 H Total Protein Albumin 2.4 L Lipase 3 L Ur Specific [place] 05/11/21 05/11/21 05/12/21 11:18 12:28 04:08 WBC RBC MCV RDW Lymph % (Auto) Lymph # (Auto) Seg Neutrophils % Seg Neuts % (Manual) Lymphocytes % (Manual) Seg Neutrophils # Man Lymphocytes # (Manual) PT INR Potassium Chloride Carbon Dioxide BUN Creatinine Glucose POC Glucose Lactic Acid 4.20 H* 4.50 H* Calcium Total Bilirubin Direct Bilirubin AST ALT Alkaline Phosphatase Total Protein Albumin Lipase Ur Specific [place] 1.035 H 05/12/21 05/12/21 05/12/21 04:08 04:08 09:47 WBC 22.8 H RBC 3.39 L MCV 98 H RDW 17.7 H Lymph % (Auto) Lymph # (Auto) Seg Neutrophils % Seg Neuts % (Manual) 85.5 H Lymphocytes % (Manual) 2.0 L Seg Neutrophils # Man 19.5 H Lymphocytes # (Manual) 0.5 L PT INR Potassium 3.3 L Chloride 108.9 H Carbon Dioxide 17 L BUN 4 L Creatinine 0.5 L Glucose 106 H POC Glucose Lactic Acid 2.60 H* Calcium 6.4 L D Total Bilirubin 2.10 H Direct Bilirubin AST 156 H ALT 61 H Alkaline Phosphatase 317 H Total Protein 5.4 L D Albumin 1.8 L Lipase Ur Specific [place] 05/12/21 05/12/21 05/12/21 11:47 12:30 12:36 WBC RBC MCV RDW Lymph % (Auto) Lymph # (Auto) Seg Neutrophils % Seg Neuts % (Manual) Lymphocytes % (Manual) Seg Neutrophils # Man Lymphocytes # (Manual) PT INR Potassium Chloride Carbon Dioxide BUN Creatinine Glucose POC Glucose 59 L 120 H Lactic Acid 2.50 H* Calcium Total Bilirubin Direct Bilirubin AST ALT Alkaline Phosphatase Total Protein Albumin Lipase Ur Specific [place] 05/12/21 Unknown WBC RBC MCV RDW Lymph % (Auto) Lymph # (Auto) Seg Neutrophils % Seg Neuts % (Manual) Lymphocytes % (Manual) Seg Neutrophils # Man Lymphocytes # (Manual) PT INR Potassium Chloride Carbon Dioxide BUN Creatinine Glucose POC Glucose Lactic Acid 3.30 H* Calcium Total Bilirubin Direct Bilirubin AST ALT Alkaline Phosphatase Total Protein Albumin Lipase Ur Specific [place] - Diagnostic Findings Chest x-ray: image reviewed CT scan - chest: image reviewed (No PE, Bilateral interstitial opacity remains with overall mild worsening Mild fluid-filled esophagus. The stomach is also distended with fluid. ) Assessment and Plan Septic shock possible hepatobiliary source Lactic acidosis h/o pulmonary fibrosis, Acute on chronic respiratory failure on home O2 of 2 L nasal cannula Transaminitis, biliary dilation, r/o cholangitis Hyperchloremia, metabolic acidosis, hypokalemia Hypoglycemia h/o pancreatic head cancer- chemoradiation therapy h/o Hypertension -Wean vasopressor support to keep MAP>65 -Hold all anti-hypertensives -Titrate supplemental oxygen to keep SpO2 88-90% -Bronchodilators -ABG and CXR as clinically indicated -Antibiotics, continue Cefepime and Vancomycin -trend temperature curve and WCC, de-escalate antibiotics based on culture data and clinical improvement -VTE prophylaxis-Lovenox -Avoid nephrotxins, adjust all medications for CrCL, GFR -MRCP recommended per GI service -Accuchecks with glycemic control. Avoid hypoglycemia -Clear liquids as tolerated, if she remains NPO will need to address nutritional support -Supportive transfusions as clinically indicated to keep HgB >7g/dL -Symptom management of cough -Mobility, off loading and frequent turning per facility protocol to prevent pressure ulcers -Pain management with bowel regimen CONDITION: CRITICAL PROGNOSIS: GUARDED CODE STATUS: FULL The high probability of a clinically significant, sudden or life threatening deterioration of the cardiovascular, hepatology system(s) required my full and direct attention, intervention and personal management. The aggregate critical care time was [45] minutes. This time is in addition to time spent performing reported procedures but includes the following: [x] Data Review and interpretation [x] Patient assessment and monitoring of vital signs [x] Documentation [x] Medication orders and management
--- NOTE | 2021-05-12 17:05 | Progress Note ---
Assessment and Plan Assessment and plan: This is a 48-year-old female with COPD, pancreatic cancer with radiation s/p pancreatic stent placement, pulmonary fibrosis, chronic respiratory failure on 2 L nasal cannula admitted with sepsis, transaminitis and lactic acidosis. Neuro: NAD -Avoid delirium -Reorientation as needed -Maintain sleep-wake cycle CV: Hypotension, h/o HTN -Hold home htn medications -Vasopressor support with levo and vaso -wean for MAP >65 -LR bolus x1 -BP monitoring per protocol -CCM consulted, appreciate recommendations -Steriods Respiratory: h/o pulmonary fibrosis, chronic respiratory failure on home O2 of 2 L nasal cannula -Supplemental oxygen as needed -Tessalon Perles as needed for cough -SPO2 monitoring -Pulmonary hygiene GI: Transaminitis, biliary dilation, r/o cholangitis -CT abdomen/pelvis showed pancreatic cancer with metallic stent with possible occlusion, mild pelvic fluid and mild colonic thickening -GI consulted, patient recommendations -MRCP pending -If stent occlusion/biliary obstruction would recommend IR consult for PTC drain per GI -Okay for sips of water -PPI -BR to start once taking p.o. -24-hour -194 mL -Acute hepatitis panel negative : Hyperchloremia, metabolic acidosis, hypokalemia -Replete potassium -Maintenance IV fluid with normal saline -Trend CBC -Strict urine output -Daily weights Endo: Hypoglycemia -Hypoglycemia protocol -Avoid hypoglycemia -SSI every 6 while NPO ID: Septic shock, COVID 19 PUI, Lactic acidosis -Blood cultures x2 no growth to date -Patient has leukocytosis, hypotension -Antibiotic therapy with cefepime and vancomycin -Monitor WBC and fever curve -ID consult if needed -COVID PCR (-) Heme: Leukocytosis -Trend CBC -Transfuse for hemoglobin less than 7 -SCD to bilateral lower extremities while in bed -Lovenox subcu Oncology: h/o pancreatic head cancer -F/U with outpatient oncologist -Currently on radiation -Not a surgical candidate per GI -Right chest post not accessed The high probability of a clinically significant, sudden or life threatening deterioration of the [CV/GI] system(s) required my full and direct attention, intervention and personal management. The aggregate critical care time was [60] minutes. This time is in addition to time spent performing reported procedures but includes the following: [x] Data Review and interpretation [x] Patient assessment and monitoring of vital signs [x] Documentation [x] Medication orders and management Disposition Plan: icu Total Time Spent with Patient (Minutes): 60 History Interval history: This is a 51-year-old female with COPD, pancreatic cancer and radiation, s/p pancreatic stent placement, pulmonary fibrosis, hypertension and chronic respiratory failure on 2 L oxygen via nasal cannula who presented to emergency department on 05/11 with complaints of right upper quadrant pain which started approximately at 0200 with nausea and vomiting. Work-up in the emergency department included a CTA chest which showed no pulmonary embolism, mild fluid- filled esophagus and distended stomach with bilateral interstitial opacity in the chest, and CT abdomen/pelvis with contrast which showed persistent pancreatic carcinoma with indwelling metallic stent which is suspected to be occluded. Lab work revealed leukocytosis, transaminitis and lactic acidosis. Patient became hypotensive in the emergency department and required 3 L of IV fluid and was eventually started on vasopressors after placement of femoral central line. Patient was started on empiric antibiotics. Admitted to the hospitalist service with consults to GI and CCM for transaminitis, possible sepsis, and lactic acidosis. 05/12: Patient remains on high-dose Levophed and vasopressin. Given 1 L LR bolus. GI would like an MRCP to be conducted which has been ordered. Patient cleared for sips of water. Added Tessalon due to severe cough. Potassium repleted. Covid PCR negative. Hospitalist Physical - Constitutional Vitals: Temp Pulse Resp BP Pulse Ox 98 F 84 22 101/64 97 05/12/21 12:32 05/12/21 12:00 05/12/21 12:00 05/12/21 12:00 05/12/21 12:00 General appearance: Present: no acute distress, well-nourished - EENT Eyes: Present: PERRL, EOM intact ENT: hearing intact, clear oral mucosa, dentition normal - Neck Neck: Present: normal ROM - Respiratory Respiratory effort: normal Respiratory: bilateral: diminished - Cardiovascular Rhythm: regular Heart Sounds: Present: S1 & S2. Absent: systolic murmur, diastolic murmur - Extremities Extremities: no ischemia, pulses intact, pulses symmetrical, No edema, normal temperature, normal color, Full ROM Peripheral Pulses: within normal limits - Abdominal General gastrointestinal: soft, non-tender, non-distended, normal bowel sounds - Integumentary Integumentary: Present: warm, dry - Psychiatric Psychiatric: appropriate mood/affect, cooperative - Neurologic Neurologic: CNII-XII intact, no focal deficits, moves all extremities - Allied Health Allied health notes reviewed: nursing, RT, social work Results - Labs CBC & Chem 7: 05/12/21 04:08 05/12/21 04:08 Labs: Laboratory Last Values WBC 22.8 K/mm3 (4.5-11.0) H 05/12/21 04:08 RBC 3.39 M/mm3 (3.65-5.03) L 05/12/21 04:08 Hgb 10.8 gm/dl (10.1-14.3) 05/12/21 04:08 Hct 33.4 % (30.3-42.9) D 05/12/21 04:08 MCV 98 fl (79-97) H 05/12/21 04:08 MCH 32 pg (28-32) 05/12/21 04:08 MCHC 32 % (30-34) 05/12/21 04:08 RDW 17.7 % (13.2-15.2) H 05/12/21 04:08 Plt Count 243 K/mm3 (140-440) 05/12/21 04:08 Lymph % (Auto) 10.8 % (13.4-35.0) L 05/11/21 05:43 [place] % (Auto) 2.5 % (0.0-7.3) 05/11/21 05:43 Eos % (Auto) 2.1 % (0.0-4.3) 05/11/21 05:43 Baso % (Auto) 0.5 % (0.0-1.8) 05/11/21 05:43 Lymph # (Auto) 0.6 K/mm3 (1.2-5.4) L 05/11/21 05:43 Valencia # (Auto) 0.2 K/mm3 (0.0-0.8) 05/11/21 05:43 Eos # (Auto) 0.1 K/mm3 (0.0-0.4) 05/11/21 05:43 Baso # (Auto) 0.0 K/mm3 (0.0-0.1) 05/11/21 05:43 Add Manual Diff Complete 05/12/21 04:08 Total Counted 200 05/12/21 04:08 Seg Neutrophils % 84.1 % (40.0-70.0) H 05/11/21 05:43 Seg Neuts % (Manual) 85.5 % (40.0-70.0) H 05/12/21 04:08 Band Neutrophils % 8.5 % 05/12/21 04:08 Lymphocytes % (Manual) 2.0 % (13.4-35.0) L 05/12/21 04:08 Monocytes % (Manual) 3.0 % (0.0-7.3) 05/12/21 04:08 Eosinophils % (Manual) 1.0 % (0.0-4.3) 05/12/21 04:08 Nucleated RBC % Not Reportable 05/12/21 04:08 Seg Neutrophils # 5.0 K/mm3 (1.8-7.7) 05/11/21 05:43 Seg Neutrophils # Man 19.5 K/mm3 (1.8-7.7) H 05/12/21 04:08 Band Neutrophils # 1.9 K/mm3 05/12/21 04:08 Lymphocytes # (Manual) 0.5 K/mm3 (1.2-5.4) L 05/12/21 04:08 Abs React Lymphs (Man) 0.0 K/mm3 05/12/21 04:08 Monocytes # (Manual) 0.7 K/mm3 (0.0-0.8) 05/12/21 04:08 Eosinophils # (Manual) 0.2 K/mm3 (0.0-0.4) 05/12/21 04:08 Basophils # (Manual) 0.0 K/mm3 (0.0-0.1) 05/12/21 04:08 Metamyelocytes # 0.0 K/mm3 05/12/21 04:08 Myelocytes # 0.0 K/mm3 05/12/21 04:08 Promyelocytes # 0.0 K/mm3 05/12/21 04:08 Blast Cells # 0.0 K/mm3 05/12/21 04:08 WBC Morphology Not Reportable 05/12/21 04:08 Hypersegmented Neuts Not Reportable 05/12/21 04:08 Hyposegmented Neuts Not Reportable 05/12/21 04:08 Hypogranular Neuts Not Reportable 05/12/21 04:08 Smudge Cells Not Reportable 05/12/21 04:08 Toxic Granulation Not Reportable 05/12/21 04:08 Toxic Vacuolation Not Reportable 05/12/21 04:08 Dohle Bodies Not Reportable 05/12/21 04:08 Pelger-Huet Anomaly Not Reportable 05/12/21 04:08 Elizabeth Rods Not Reportable 05/12/21 04:08 Platelet Estimate Consistent w auto 05/12/21 04:08 Clumped Platelets Not Reportable 05/12/21 04:08 Plt Clumps, EDTA Not Reportable 05/12/21 04:08 Large Platelets Not Reportable 05/12/21 04:08 Giant Platelets Not Reportable 05/12/21 04:08 Platelet Satelliting Not Reportable 05/12/21 04:08 Plt Morphology Comment Not Reportable 05/12/21 04:08 RBC Morphology Not Reportable 05/12/21 04:08 Dimorphic RBCs Not Reportable 05/12/21 04:08 Polychromasia Not Reportable 05/12/21 04:08 Hypochromasia Not Reportable 05/12/21 04:08 Poikilocytosis Not Reportable 05/12/21 04:08 Anisocytosis 1+ 05/12/21 04:08 Microcytosis Not Reportable 05/12/21 04:08 Macrocytosis Not Reportable 05/12/21 04:08 Spherocytes Not Reportable 05/12/21 04:08 Pappenheimer Bodies Not Reportable 05/12/21 04:08 Sickle Cells Not Reportable 05/12/21 04:08 Target Cells Not Reportable 05/12/21 04:08 Tear Drop Cells Not Reportable 05/12/21 04:08 Ovalocytes Not Reportable 05/12/21 04:08 Helmet Cells Not Reportable 05/12/21 04:08 Sibley-Nocatee Bodies Not Reportable 05/12/21 04:08 [place]wood Rings Not Reportable 05/12/21 04:08 Marcin Cells Not Reportable 05/12/21 04:08 Bite Cells Not Reportable 05/12/21 04:08 Crenated Cell Not Reportable 05/12/21 04:08 Elliptocytes Not Reportable 05/12/21 04:08 Acanthocytes (Spur) Not Reportable 05/12/21 04:08 Rouleaux Not Reportable 05/12/21 04:08 Hemoglobin C Crystals Not Reportable 05/12/21 04:08 Schistocytes Not Reportable 05/12/21 04:08 Malaria parasites Not Reportable 05/12/21 04:08 Tahir Bodies Not Reportable 05/12/21 04:08 Hem Pathologist Commnt No 05/12/21 04:08 PT 16.0 Sec. (12.2-14.9) H 05/11/21 05:43 INR 1.16 (0.87-1.13) H 05/11/21 05:43 Sodium 141 mmol/L (137-145) 05/12/21 04:08 Potassium 3.3 mmol/L (3.6-5.0) L 05/12/21 04:08 Chloride 108.9 mmol/L (98-107) H 05/12/21 04:08 Carbon Dioxide 17 mmol/L (22-30) L 05/12/21 04:08 Anion Gap 18 mmol/L 05/12/21 04:08 BUN 4 mg/dL (7-17) L 05/12/21 04:08 Creatinine 0.5 mg/dL (0.6-1.2) L 05/12/21 04:08 Estimated GFR > 60 ml/min 05/12/21 04:08 BUN/Creatinine Ratio 8 % 05/12/21 04:08 Glucose 106 mg/dL (65-100) H 05/12/21 04:08 POC Glucose 120 mg/dL (70-105) H 05/12/21 12:36 Hemoglobin A1c 5.2 % (4-6) 05/12/21 04:08 Lactic Acid 3.30 mmol/L (0.7-2.0) H* 05/12/21 Unknown Calcium 6.4 mg/dL (8.4-10.2) L D 05/12/21 04:08 Total Bilirubin 2.10 mg/dL (0.1-1.2) H 05/12/21 04:08 Direct Bilirubin 1.4 mg/dL (0-0.2) H 05/11/21 05:43 Indirect Bilirubin 0.7 mg/dL 05/11/21 05:43 AST 156 units/L (5-40) H 05/12/21 04:08 ALT 61 units/L (7-56) H 05/12/21 04:08 Alkaline Phosphatase 317 units/L (35-129) H 05/12/21 04:08 Total Protein 5.4 g/dL (6.3-8.2) L D 05/12/21 04:08 Albumin 1.8 g/dL (3.9-5) L 05/12/21 04:08 Albumin/Globulin Ratio 0.5 % 05/12/21 04:08 Lipase 3 units/L (13-60) L 05/11/21 05:43 Urine Color Deisi (Yellow) 05/11/21 11:18 Urine Turbidity Clear (Clear) 05/11/21 11:18 Urine pH 6.0 (5.0-7.0) 05/11/21 11:18 Ur Specific [place] 1.035 (1.003-1.030) H 05/11/21 11:18 Urine Protein 100 mg/dl mg/dL (Negative) 05/11/21 11:18 Urine Glucose (UA) Neg mg/dL (Negative) 05/11/21 11:18 Urine Ketones Neg mg/dL (Negative) 05/11/21 11:18 Urine Blood Neg (Negative) 05/11/21 11:18 Urine Nitrite Neg (Negative) 05/11/21 11:18 Urine Bilirubin Neg (Negative) 05/11/21 11:18 Urine Urobilinogen < 2.0 mg/dL (<2.0) 05/11/21 11:18 Ur Leukocyte Esterase Neg (Negative) 05/11/21 11:18 Urine WBC (Auto) 2.0 /HPF (0.0-6.0) 05/11/21 11:18 Urine RBC (Auto) 1.0 /HPF (0.0-6.0) 05/11/21 11:18 Urine Mucus Few /HPF 05/11/21 11:18 Coronavirus (PCR) Negative (Negative) 05/12/21 10:16 Hepatitis A IgM Ab Non-reactive (NonReactive) 05/12/21 12:30 Hep Bs Antigen Nonreactive (Negative) 05/12/21 12:30 Hep B Core IgM Ab Non-reactive (NonReactive) 05/12/21 12:30 Hepatitis C Antibody Non-reactive (NonReactive) 05/12/21 12:30 Microbiology: Microbiology 05/11/21 12:28 Peripheral/Venous Blood Culture - Preliminary NO GROWTH AFTER 24 HOURS 05/11/21 12:28 Peripheral/Venous Blood Culture - Preliminary NO GROWTH AFTER 24 HOURS Rivas/IV: Voiding Method External Female Catheter Active Medications - Current Medications Current Medications: Generic Name Dose Route Start Last Admin Trade Name Freq PRN Reason Stop Dose Admin Acetaminophen 650 mg 05/11/21 21:40 Acetaminophen 325 Mg Tab PO Q4H PRN Pain MILD(1-3)/Fever >100.5/WOODS Arformoterol Tartrate 15 mcg 05/12/21 08:00 05/12/21 11:04 Arformoterol 15 Mcg/2 Ml Nebu IH 15 mcg Q12HRT ABRAHAN Administration Benzonatate 100 mg 05/12/21 15:53 Benzonatate 100 Mg Cap PO Q8HR PRN Cough Budesonide 0.5 mg 05/12/21 08:00 05/12/21 10:59 Budesonide 0.5 Mg/2 Ml Nebu IH 0.5 mg Q12HRT ABRAHAN Administration Cetirizine HCl 10 mg 05/12/21 10:00 05/12/21 10:16 Cetirizine 10 Mg Tab PO 10 mg QDAY ABRAHAN Administration Cholecalciferol 5,000 unit 05/12/21 10:00 05/12/21 10:16 Cholecalciferol (Vit D3) 5,000 Unit Tab PO 5,000 unit DAILY ABRAHAN Administration Dextrose 25 ml 05/12/21 11:57 05/12/21 11:59 Dextrose 50% In Water (25gm) 50 Ml Syringe IV 20 ml Q30MIN PRN Administration Hypoglycemia Protocol Dextrose 50 ml 05/12/21 11:57 Dextrose 50% In Water (25gm) 50 Ml Syringe IV Q30MIN PRN Hypoglycemia Protocol Heparin Sodium (Porcine) 5,000 unit 05/11/21 22:00 05/12/21 10:38 Heparin 5,000 Unit/1 Ml Vial SUB-Q 5,000 unit Q12HR ABRAHAN Administration NORepinephrine/NS 8 MG-250 ML 8 mg in 250 mls @ 3.75 mls/hr 05/11/21 15:00 05/12/21 12:40 Norepinephrine/Ns 8 Mg-250 Ml (Double Conc) IV 15 mcg/min TITRATE ABRAHAN 28.125 mls/hr Administration Protocol 2 MCG/MIN Vasopressin 20 unit/ Sodium 101 mls @ 9.09 mls/hr 05/11/21 20:00 05/12/21 04:46 Chloride IV 0.03 units/min TITR ABRAHAN 9.09 mls/hr Administration Protocol 0.03 UNITS/MIN Sodium Chloride 1,000 mls @ 100 mls/hr 05/11/21 21:45 05/12/21 12:39 Nacl 0.9% 1000 Ml IV 100 mls/hr DIRECT ABRAHAN Administration Cefepime HCl 2 gm in 100 mls @ 200 mls/hr 05/11/21 22:00 05/12/21 14:21 Cefepime/Ns 2 Gm/100 Ml IV 200 mls/hr Q8H ABRAHAN Administration Protocol Vancomycin HCl 1,250 mg/ 275 mls @ 166.667 mls/hr 05/12/21 13:00 05/12/21 14:37 Sodium Chloride IV 166.667 mls/hr Q12H ABRAHAN Administration Metoclopramide HCl 10 mg 05/11/21 21:40 Metoclopramide 10 Mg/2 Ml Inj IV Q6H PRN Nausea And Vomiting Montelukast Sodium 10 mg 05/12/21 18:00 Montelukast 10 Mg Tab PO QPM ABRAHAN Morphine Sulfate 2 mg 05/11/21 21:40 05/12/21 10:15 Morphine 2 Mg/1 Ml Inj IV 2 mg Q4H PRN Administration Pain, Moderate (4-6) Ondansetron HCl 4 mg 05/11/21 21:40 05/12/21 02:16 Ondansetron 4 Mg/2 Ml Inj IV 4 mg Q8H PRN Administration Nausea And Vomiting Pantoprazole Sodium 40 mg 05/12/21 10:00 05/12/21 10:16 Pantoprazole 40 Mg Tab PO 40 mg DAILY ABRAHAN Administration Prednisone 30 mg 05/12/21 10:00 05/12/21 10:16 Prednisone 10 Mg Tab PO 30 mg BID ABRAHAN Administration Sodium Chloride 10 ml 05/11/21 22:00 05/11/21 23:59 Sodium Chloride 0.9% 10 Ml Flush Syringe IV 10 ml BID ABRAHAN Administration Sodium Chloride 10 ml 05/11/21 21:40 Sodium Chloride 0.9% 10 Ml Flush Syringe IV PRN PRN LINE FLUSH
[2021-05-12] MEDS: BENZONATATE 100 MG CAP PO PRN (17:59)
[2021-05-12] MEDS: MONTELUKAST 10 MG TAB PO SCH (18:34)
[2021-05-12] MEDS: D5W/0.9% NACL 1,000 ML IV SCH (21:04)
[2021-05-12] MEDS: ENOXAPARIN 40 MG/0.4 ML INJ SUB-Q SCH (21:05)
[2021-05-13] MEDS: VANCOMYCIN 1,250 MG in SODIUM CHLORIDE 0.9% 250ML 250 ML IV SCH ×2 (03:59→17:01)
[2021-05-13] MEDS: BENZONATATE 100 MG CAP PO PRN ×2 (04:17→17:01)
[2021-05-13] MEDS: NORepinephrine/NS 8 MG-250 ML 8 MG/250 ML INFUS..BTL IV SCH (06:13)
[2021-05-13] MEDS: CEFEPIME/NS 2 GM/100 ML 2 GM/100 ML BAG IV SCH ×3 (06:13→21:58)
[2021-05-13 06:15] LABS: Hematocrit 34.6 % (30.3-42.9); Mean Corpuscular HGB Conc 32 % (30-34); Mean Corpuscular Volume 98 fl (79-97); Platelet Count 204 K/mm3 (140-440); Red Blood Count 3.52 M/mm3 (3.65-5.03); Red Cell Distribution Width 18.5 % (13.2-15.2)
[2021-05-13 06:32] LABS: Alanine Aminotransferase 45 units/L (7-56); Albumin 1.6 g/dL (3.9-5); Blood Urea Nitrogen 4 mg/dL (7-17); Calcium 7.4 mg/dL (8.4-10.2); Hemolysis Index 16
[2021-05-13 07:20] LABS: BUN/Creatinine Ratio 10
[2021-05-13] MEDS ORDERED: MAGNESIUM SULFATE 4 GM/100 ML BAG IV ONE (07:47)
[2021-05-13] MEDS ORDERED: POTASSIUM PHOSPHATE 40 MMOL in SODIUM CHLORIDE 0.9% 500 ML 500 ML IV ONE (07:47)
[2021-05-13] MEDS: BUDESONIDE 0.5 MG/2 ML NEBU IH SCH ×2 (08:23→21:45)
[2021-05-13] MEDS: ARFORMOTEROL 15 MCG/2 ML NEBU IH SCH ×2 (08:26→21:50)
[2021-05-13] MEDS: MORPHINE 2 MG/1 ML INJ IV PRN ×3 (08:36→21:58)
[2021-05-13] MEDS: CHOLECALCIFEROL (VIT D3) 5,000 UNIT TAB PO SCH (10:33)
[2021-05-13] MEDS: PANTOPRAZOLE 40 MG TAB PO SCH (10:34)
[2021-05-13] MEDS: CETIRIZINE 10 MG TAB PO SCH (10:35)
[2021-05-13] MEDS: predniSONE 10 MG TAB PO SCH (10:35)
--- NOTE | 2021-05-13 13:52 | Gastroenterology Progress Note ---
Assessment and Plan 1. Abnormal liver enzymes with biliary dilatation - biliary stent with dilatation proximal to stent 2. History of pancreatic head cancer - s/p chemo/radiation, not a surgical candidate 3. Sepsis/shock - in ICU on pressors (decreasing requirements) stable vital signs, ? cholangitis, wbc improved and afebrile last 24 hours -MRCP pending, cont broad spectrum abx per primary. if stent occlusion/biliary obstruction, would recommend IR consult for PTC drain. monitor labs Subjective Date of service: 05/13/21 Principal diagnosis: abdominal pain, abnormal liver enzymes Interval history: pt c/o dyspnea sx's, minimal abd pain (improved since admission) Objective - Constitutional Vitals: Temp Pulse Resp BP Pulse Ox 98.1 F 68 30 H 120/73 94 05/13/21 08:00 05/13/21 12:45 05/13/21 12:45 05/13/21 12:45 05/13/21 12:45 General appearance: no acute distress - Respiratory Respiratory: bilateral: diminished - Cardiovascular Rhythm: regular Heart Sounds: Present: S1 & S2 - Gastrointestinal General gastrointestinal: Present: soft, tender (mild epigastric ttp) - Neurologic Neurological: alert and oriented x3 - Psychiatric Psychiatric: appropriate mood/affect - Labs CBC & Chem 7: 05/13/21 04:00 05/13/21 04:00 Labs: Laboratory Results - last 24 hr 05/12/21 05/12/21 05/12/21 10:16 12:30 12:30 WBC RBC Hgb Hct MCV MCH MCHC RDW Plt Count Sodium Potassium Chloride Carbon Dioxide Anion Gap BUN Creatinine Estimated GFR BUN/Creatinine Ratio Glucose POC Glucose Lactic Acid 2.50 H* Calcium Phosphorus Magnesium Total Bilirubin AST ALT Alkaline Phosphatase Total Protein Albumin Albumin/Globulin Ratio Coronavirus (PCR) Negative Hepatitis A IgM Ab Non-reactive Hep Bs Antigen Nonreactive Hep B Core IgM Ab Non-reactive Hepatitis C Antibody Non-reactive 05/12/21 05/12/21 05/13/21 18:01 23:45 04:00 WBC 19.8 H RBC 3.52 L Hgb 11.0 Hct 34.6 MCV 98 H MCH 31 MCHC 32 RDW 18.5 H Plt Count 204 Sodium Potassium Chloride Carbon Dioxide Anion Gap BUN Creatinine Estimated GFR BUN/Creatinine Ratio Glucose POC Glucose 78 119 H Lactic Acid Calcium Phosphorus Magnesium Total Bilirubin AST ALT Alkaline Phosphatase Total Protein Albumin Albumin/Globulin Ratio Coronavirus (PCR) Hepatitis A IgM Ab Hep Bs Antigen Hep B Core IgM Ab Hepatitis C Antibody 05/13/21 05/13/21 05/13/21 04:00 05:42 12:19 WBC RBC Hgb Hct MCV MCH MCHC RDW Plt Count Sodium 137 Potassium 3.4 L Chloride 107.1 H Carbon Dioxide 19 L Anion Gap 14 BUN 4 L Creatinine 0.4 L Estimated GFR > 60 BUN/Creatinine Ratio 10 Glucose 157 H POC Glucose 143 H 110 H Lactic Acid Calcium 7.4 L D Phosphorus 1.60 L Magnesium 1.50 L Total Bilirubin 1.40 H AST 95 H ALT 45 Alkaline Phosphatase 328 H Total Protein 5.5 L Albumin 1.6 L Albumin/Globulin Ratio 0.4 Coronavirus (PCR) Hepatitis A IgM Ab Hep Bs Antigen Hep B Core IgM Ab Hepatitis C Antibody
--- NOTE | 2021-05-13 13:57 | Progress Note ---
Assessment and Plan 51-year-old female with history of COPD, Hypertension and pancreatic cancer comes in for right upper quadrant pain since 2 AM. Pain is about 10 on a scale of 1-10. Also associated with nausea and vomiting. Patient is on radiation therapy for pancreatic cancer. Patient also has a history of pulmonary fibrosis and is on 2 L nasal cannula oxygen. Vomited about 3-4 times. No fever or chills. No aggravating or relieving factors. No exposure to coronavirus. Patient has history of smoking. Not smoking. Denies alcohol or drug abuse. Patient awake. Resting on 5 litres o2. O2 saturation running 93%. Patient afebrile. Has leukocytosis. Blood pressure 120/73, pulse 82, respirations 31. Chest xray done 05/13/21 reported No acute change since 03/19/2019. Interstitial lung disease or early pulmonary fibrosis is suspected and unchanged. Patient has angio CT of chest done on 05/11/[address] evidence for pulmonary embolism. Bilateral interstitial opacity remains with overall mild worsening Mild fluid-filled esophagus. The stomach is also distended with fluid. Patient is on cefepime, vancomycin, Norepinephrine and vasopressin, Budesonide/Brovanna aerosol treatments, S/C Lovenox, Protonix, Zyrtec, Monteleukast. I spent critical care time of 40 minutes, obtaining history, review the chart, Examine the patient, review labs and chest xray, Ct scan of chest, talking to the nursing staff and work up plan of treatment. - Patient Problems (1) Hypotension Current Visit: Yes Status: Acute Plan to address problem: Patient is on Norepinephrine and vasopressin. (2) Sepsis Current Visit: Yes Status: Acute Plan to address problem: On cefepime and vancomycin. (3) Pancreatic cancer Current Visit: Yes Status: Chronic Qualifiers: Pancreatic malignancy location: body of pancreas Qualified Code(s): C25.1 - Malignant neoplasm of body of pancreas Plan to address problem: Management as per primary care and oncology. (4) Asthma exacerbation Current Visit: No Status: Acute Plan to address problem: Patient is on Brovanna/Budesonide aerosol treatments. (5) Bilateral pneumonia Current Visit: No Status: Acute Plan to address problem: Cefepime and vancomycin. (6) Interstitial lung disease Current Visit: No Status: Acute Plan to address problem: Recommend TED, rheumatoid factor, CANCA, BRIGHT levels. PFTs as out patient. (7) HTN (hypertension) Current Visit: No Status: Chronic Qualifiers: Hypertension type: essential hypertension Plan to address problem: Management as per primary care. Subjective Date of service: 05/13/21 Principal diagnosis: abdominal pain, abnormal liver enzymes Interval history: 51-year-old female with history of COPD, Hypertension and pancreatic cancer comes in for right upper quadrant pain since 2 AM. Pain is about 10 on a scale of 1-10. Also associated with nausea and vomiting. Patient is on radiation therapy for pancreatic cancer. Patient also has a history of pulmonary fibrosis and is on 2 L nasal cannula oxygen. Vomited about 3-4 times. No fever or chills. No aggravating or relieving factors. No exposure to coronavirus. Patient has history of smoking. Not smoking. Denies alcohol or drug abuse. Patient awake. Resting on 5 litres o2. O2 saturation running 93%. Patient afebrile. Has leukocytosis. Blood pressure 120/73, pulse 82, respirations 31. Chest xray done 05/13/21 reported No acute change since 03/19/2019. Interstitial lung disease or early pulmonary fibrosis is suspected and unchanged. Patient has angio CT of chest done on 05/11/[address] evidence for pulmonary embolism. Bilateral interstitial opacity remains with overall mild worsening Mild fluid-filled esophagus. The stomach is also distended with fluid. Patient is on cefepime, vancomycin, Norepinephrine and vasopressin, Budesonide/Brovanna aerosol treatments, S/C Lovenox, Protonix, Zyrtec, Monteleukast Objective Vital Signs - 12hr 05/13/21 05/13/21 05/13/21 02:00 02:15 02:30 Temperature Pulse Rate 79 60 62 Pulse Rate [ From Monitor] Respiratory 24 25 H 25 H Rate Blood Pressure 95/57 94/56 101/60 O2 Sat by Pulse 97 Oximetry 05/13/21 05/13/21 05/13/21 02:45 03:00 03:15 Temperature Pulse Rate 61 61 61 Pulse Rate [ From Monitor] Respiratory 22 20 25 H Rate Blood Pressure 92/55 101/65 98/63 O2 Sat by Pulse 94 95 94 Oximetry 05/13/21 05/13/21 05/13/21 03:30 03:45 04:00 Temperature 98.3 F Pulse Rate 58 L 64 65 Pulse Rate [ 58 L From Monitor] Respiratory 22 27 H 29 H Rate Blood Pressure 104/67 121/73 113/70 O2 Sat by Pulse 96 97 96 Oximetry 05/13/21 05/13/21 05/13/21 04:15 04:30 04:45 Temperature Pulse Rate 69 60 64 Pulse Rate [ From Monitor] Respiratory 29 H 29 H 29 H Rate Blood Pressure 114/72 110/68 103/65 O2 Sat by Pulse 93 97 96 Oximetry 05/13/21 05/13/21 05/13/21 05:00 05:15 05:30 Temperature Pulse Rate 73 58 L 66 Pulse Rate [ From Monitor] Respiratory 35 H 25 H 30 H Rate Blood Pressure 113/74 109/69 110/72 O2 Sat by Pulse 94 93 Oximetry 05/13/21 05/13/21 05/13/21 05:45 06:00 06:15 Temperature Pulse Rate 62 61 59 L Pulse Rate [ From Monitor] Respiratory 30 H 31 H 22 Rate Blood Pressure 115/75 111/72 107/67 O2 Sat by Pulse 96 97 Oximetry 05/13/21 05/13/21 05/13/21 06:30 06:45 07:00 Temperature Pulse Rate 66 58 L 63 Pulse Rate [ From Monitor] Respiratory 31 H 23 28 H Rate Blood Pressure 108/73 112/71 107/72 O2 Sat by Pulse 95 98 99 Oximetry 05/13/21 05/13/21 05/13/21 07:15 07:30 07:45 Temperature Pulse Rate 64 59 L 70 Pulse Rate [ From Monitor] Respiratory 24 22 28 H Rate Blood Pressure 108/77 107/74 117/76 O2 Sat by Pulse 95 100 95 Oximetry 05/13/21 05/13/21 05/13/21 08:00 08:15 08:30 Temperature 98.1 F Pulse Rate 72 71 63 Pulse Rate [ 72 From Monitor] Respiratory 29 H 20 31 H Rate Blood Pressure 117/76 132/83 131/85 O2 Sat by Pulse 93 95 98 Oximetry 05/13/21 05/13/21 05/13/21 08:45 09:00 09:15 Temperature Pulse Rate 65 62 62 Pulse Rate [ From Monitor] Respiratory 32 H 29 H 24 Rate Blood Pressure 119/77 122/77 119/79 O2 Sat by Pulse 94 97 97 Oximetry 05/13/21 05/13/21 05/13/21 09:30 09:45 10:00 Temperature Pulse Rate 69 63 66 Pulse Rate [ From Monitor] Respiratory 34 H 30 H 26 H Rate Blood Pressure 122/78 121/79 126/81 O2 Sat by Pulse 96 96 Oximetry 05/13/21 05/13/21 05/13/21 10:15 10:30 10:45 Temperature Pulse Rate 64 60 64 Pulse Rate [ From Monitor] Respiratory 32 H 27 H 29 H Rate Blood Pressure 125/84 121/82 115/76 O2 Sat by Pulse 100 94 Oximetry 05/13/21 05/13/21 05/13/21 11:00 11:15 11:30 Temperature Pulse Rate 64 60 62 Pulse Rate [ From Monitor] Respiratory 26 H 26 H 28 H Rate Blood Pressure 108/70 117/81 117/79 O2 Sat by Pulse 96 97 96 Oximetry 05/13/21 05/13/21 05/13/21 11:45 12:00 12:15 Temperature Pulse Rate 71 64 66 Pulse Rate [ From Monitor] Respiratory 34 H 23 28 H Rate Blood Pressure 125/83 114/74 117/77 O2 Sat by Pulse 93 94 Oximetry 05/13/21 05/13/21 12:30 12:45 Temperature Pulse Rate 70 68 Pulse Rate [ From Monitor] Respiratory 26 H 30 H Rate Blood Pressure 125/79 120/73 O2 Sat by Pulse 93 94 Oximetry Constitutional: no acute distress, alert Eyes: non-icteric ENT: oropharynx moist Neck: supple, no lymphadenopathy Ascultation: Bilateral: diminished breath sounds Cardiovascular: regular rate and rhythm Gastrointestinal: hypoactive bowel sounds, tender Integumentary: normal Extremities: no cyanosis, no edema Neurologic: normal mental status, non-focal exam, pupils equal and round Psychiatric: mood appropriate, affect normal CBC and BMP: 05/14/21 06:15 05/14/21 06:15 ABG, PT/INR, D-dimer: PT/INR, D-dimer PT 16.0 Sec. (12.2-14.9) H 05/11/21 05:43 INR 1.16 (0.87-1.13) H 05/11/21 05:43 Abnormal lab findings: Abnormal Labs 05/11/21 05/11/21 05/11/21 05:43 05:43 05:43 WBC RBC MCV 98 H RDW 17.7 H Lymph % (Auto) 10.8 L Lymph # (Auto) 0.6 L Seg Neutrophils % 84.1 H Seg Neuts % (Manual) Lymphocytes % (Manual) Seg Neutrophils # Man Lymphocytes # (Manual) PT 16.0 H INR 1.16 H Potassium Chloride Carbon Dioxide 21 L BUN 4 L Creatinine 0.4 L Glucose POC Glucose Lactic Acid Calcium 8.3 L Phosphorus Magnesium Total Bilirubin 2.10 H Direct Bilirubin 1.4 H AST 335 H ALT 57 H Alkaline Phosphatase 339 H Total Protein Albumin 2.4 L Lipase 3 L Ur Specific [place] 05/11/21 05/11/21 05/12/21 11:18 12:28 04:08 WBC RBC MCV RDW Lymph % (Auto) Lymph # (Auto) Seg Neutrophils % Seg Neuts % (Manual) Lymphocytes % (Manual) Seg Neutrophils # Man Lymphocytes # (Manual) PT INR Potassium Chloride Carbon Dioxide BUN Creatinine Glucose POC Glucose Lactic Acid 4.20 H* 4.50 H* Calcium Phosphorus Magnesium Total Bilirubin Direct Bilirubin AST ALT Alkaline Phosphatase Total Protein Albumin Lipase Ur Specific [place] 1.035 H 05/12/21 05/12/21 05/12/21 04:08 04:08 09:47 WBC 22.8 H RBC 3.39 L MCV 98 H RDW 17.7 H Lymph % (Auto) Lymph # (Auto) Seg Neutrophils % Seg Neuts % (Manual) 85.5 H Lymphocytes % (Manual) 2.0 L Seg Neutrophils # Man 19.5 H Lymphocytes # (Manual) 0.5 L PT INR Potassium 3.3 L Chloride 108.9 H Carbon Dioxide 17 L BUN 4 L Creatinine 0.5 L Glucose 106 H POC Glucose Lactic Acid 2.60 H* Calcium 6.4 L D Phosphorus Magnesium Total Bilirubin 2.10 H Direct Bilirubin AST 156 H ALT 61 H Alkaline Phosphatase 317 H Total Protein 5.4 L D Albumin 1.8 L Lipase Ur Specific [place] 05/12/21 05/12/21 05/12/21 11:47 12:30 12:36 WBC RBC MCV RDW Lymph % (Auto) Lymph # (Auto) Seg Neutrophils % Seg Neuts % (Manual) Lymphocytes % (Manual) Seg Neutrophils # Man Lymphocytes # (Manual) PT INR Potassium Chloride Carbon Dioxide BUN Creatinine Glucose POC Glucose 59 L 120 H Lactic Acid 2.50 H* Calcium Phosphorus Magnesium Total Bilirubin Direct Bilirubin AST ALT Alkaline Phosphatase Total Protein Albumin Lipase Ur Specific [place] 05/12/21 05/12/2121 23:45 Unknown 04:00 WBC 19.8 H RBC 3.52 L MCV 98 H RDW 18.5 H Lymph % (Auto) Lymph # (Auto) Seg Neutrophils % Seg Neuts % (Manual) Lymphocytes % (Manual) Seg Neutrophils # Man Lymphocytes # (Manual) PT INR Potassium Chloride Carbon Dioxide BUN Creatinine Glucose POC Glucose 119 H Lactic Acid 3.30 H* Calcium Phosphorus Magnesium Total Bilirubin Direct Bilirubin AST ALT Alkaline Phosphatase Total Protein Albumin Lipase Ur Specific [place] 05/13/21 05/13/21 05/13/21 04:00 05:42 12:19 WBC RBC MCV RDW Lymph % (Auto) Lymph # (Auto) Seg Neutrophils % Seg Neuts % (Manual) Lymphocytes % (Manual) Seg Neutrophils # Man Lymphocytes # (Manual) PT INR Potassium 3.4 L Chloride 107.1 H Carbon Dioxide 19 L BUN 4 L Creatinine 0.4 L Glucose 157 H POC Glucose 143 H 110 H Lactic Acid Calcium 7.4 L D Phosphorus 1.60 L Magnesium 1.50 L Total Bilirubin 1.40 H Direct Bilirubin AST 95 H ALT Alkaline Phosphatase 328 H Total Protein 5.5 L Albumin 1.6 L Lipase Ur Specific [place] Chest x-ray: report reviewed, image reviewed CT scan - chest: report reviewed, image reviewed Additional Studies: CHEST - 1 VIEW 0720 hours 05/13/21 INDICATION: SOB COMPARISON: 03/19/2019 FINDINGS: Support devices: A right IJ [id number] has been inserted since the previous exam which terminates near the cavoatrial junction in good position. Heart: Within normal limits. Lungs/pleura: Low lung volumes with increased interstitial markings in the lower lung zones. This is unchanged and suggestive of chronic interstitial lung disease or pulmonary fibrosis. No acute infiltrate, large pleural effusion or pneumothorax. Additional findings: None. IMPRESSION: No acute change since 03/19/2019. Interstitial lung disease or early pulmonary fibrosis is suspected and unchanged. CTA CHEST WITH CONTRAST 05/11/21 INDICATION / CLINICAL INFORMATION: Shortness of breath. Tachycardia. TECHNIQUE: Axial CT images were obtained through the chest after injection of Omnipaque 350, 100 cc IV contrast. 3 plane MIP and/or 3D reconstructions were produced. All CT scans at this location are performed using CT dose reduction for ALARA by means of automated exposure control. COMPARISON: CTA chest 12/18/2019. FINDINGS: PULMONARY ARTERIES: No pulmonary emboli. THORACIC AORTA: No significant abnormality. HEART: No significant abnormality. CORONARY ARTERY CALCIFICATION: None. MEDIASTINUM / CHIKIS: No significant abnormality. PLEURA: No pleural effusion. No pneumothorax. LUNGS: Bilateral interstitial opacity remains with overall slight worsening. No new mass. ADDITIONAL FINDINGS: Mild fluid-filled esophagus. UPPER ABDOMEN: No acute findings. SKELETAL STRUCTURES: No significant osseous abnormality. IMPRESSION: 1. No CT evidence for pulmonary embolism. 2. Bilateral interstitial opacity remains with overall mild worsening 3. Mild fluid-filled esophagus. The stomach is also distended with fluid.
--- NOTE | 2021-05-13 13:57 | Progress Note ---
Assessment and Plan Assessment and plan: This is a 48-year-old female with COPD, pancreatic cancer with radiation s/p pancreatic stent placement, pulmonary fibrosis, chronic respiratory failure on 2 L nasal cannula admitted with sepsis, transaminitis and lactic acidosis. Neuro: NAD -Avoid delirium -Reorientation as needed -Maintain sleep-wake cycle CV: Hypotension, h/o HTN -Hold home htn medications -Vasopressor support with levo and vaso -wean for MAP >65 -vaso weaned of yesterday -BP monitoring per protocol -CCM consulted, appreciate recommendations -Steroids Respiratory: h/o pulmonary fibrosis, chronic respiratory failure on home O2 of 2 L nasal cannula -Supplemental oxygen as needed -Tessalon Perles as needed for cough -SPO2 monitoring -Pulmonary hygiene GI: Transaminitis, biliary dilation, r/o cholangitis -CT abdomen/pelvis showed pancreatic cancer with metallic stent with possible occlusion, mild pelvic fluid and mild colonic thickening -GI consulted, patient recommendations -MRCP pending -If stent occlusion/biliary obstruction would recommend IR consult for PTC drain per GI -Okay for sips of water -PPI -BR to start once taking p.o. -24-hour +2116 mL -Acute hepatitis panel negative : Hyperchloremia, metabolic acidosis, hypokalemia, hypophosphatemia, hypomagnesemia -Replete potassium -D5 normal saline at 75 mL's per hour -Replete potassium, phosphate and magnesium -Trend BMP -Strict intake and output -Daily weights Endo: Hypoglycemia -Hypoglycemia protocol -Avoid hypoglycemia -SSI every 6 while NPO -Started on dextrose IV fluid ID: Septic shock, COVID 19 PUI, Lactic acidosis (improving) -Blood cultures x2 no growth to date -Patient has leukocytosis, hypotension -Antibiotic therapy with cefepime and vancomycin -Monitor WBC and fever curve -ID consult if needed -COVID PCR (-) -Started on stress dose steroids -Once vasopressor requirements are off switch back to home dose of prednisone Heme: Leukocytosis -Trend CBC -Transfuse for hemoglobin less than 7 -SCD to bilateral lower extremities while in bed -Lovenox subcu Oncology: h/o pancreatic head cancer -F/U with outpatient oncologist -Currently on radiation -Not a surgical candidate per GI -Right chest post not accessed The high probability of a clinically significant, sudden or life threatening deterioration of the [CV/GI] system(s) required my full and direct attention, intervention and personal management. The aggregate critical care time was [60] minutes. This time is in addition to time spent performing reported procedures but includes the following: [x] Data Review and interpretation [x] Patient assessment and monitoring of vital signs [x] Documentation [x] Medication orders and management Disposition Plan: icu Total Time Spent with Patient (Minutes): 60 History Interval history: This is a 51-year-old female with COPD, pancreatic cancer and radiation, s/p pancreatic stent placement, pulmonary fibrosis, hypertension and chronic respiratory failure on 2 L oxygen via nasal cannula who presented to emergency department on 05/11 with complaints of right upper quadrant pain which started approximately at 0200 with nausea and vomiting. Work-up in the emergency department included a CTA chest which showed no pulmonary embolism, mild fluid- filled esophagus and distended stomach with bilateral interstitial opacity in the chest, and CT abdomen/pelvis with contrast which showed persistent pancreat ic carcinoma with indwelling metallic stent which is suspected to be occluded. Lab work revealed leukocytosis, transaminitis and lactic acidosis. Patient became hypotensive in the emergency department and required 3 L of IV fluid and was eventually started on vasopressors after placement of femoral central line. Patient was started on empiric antibiotics. Admitted to the hospitalist service with consults to GI and CCM for transaminitis, possible sepsis, and lactic acidosis. 05/12: Patient remains on high-dose Levophed and vasopressin. Given 1 L LR bolus. GI would like an MRCP to be conducted which has been ordered. Patient cleared for sips of water. Added Tessalon due to severe cough. Potassium repleted. Covid PCR negative. 05/13: Remains on Levophed and vasopressin has been off since yesterday evening. Started on stress dose steroids. MRCP pending. Hypokalemia, hypomagnesemia and hypophosphatemia repleted. Liver enzymes trending down. Started on D5 normal saline yesterday. Hospitalist Physical - Constitutional Vitals: Temp Pulse Resp BP Pulse Ox 98.1 F 68 30 H 120/73 94 05/13/21 08:00 05/13/21 12:45 05/13/21 12:45 05/13/21 12:45 05/13/21 12:45 General appearance: Present: no acute distress, well-nourished - EENT Eyes: Present: PERRL, EOM intact ENT: hearing intact, clear oral mucosa, dentition normal - Neck Neck: Present: supple, normal ROM - Respiratory Respiratory effort: normal Respiratory: bilateral: diminished - Cardiovascular Rhythm: regular Heart Sounds: Present: S1 & S2. Absent: systolic murmur, diastolic murmur - Extremities Extremities: no ischemia, pulses intact, pulses symmetrical, No edema, normal temperature, normal color, Full ROM Peripheral Pulses: within normal limits - Abdominal General gastrointestinal: soft, non-tender, non-distended, normal bowel sounds - Integumentary Integumentary: Present: warm, dry - Psychiatric Psychiatric: cooperative - Neurologic Neurologic: CNII-XII intact, no focal deficits, moves all extremities - Allied Health Allied health notes reviewed: nursing, RT, social work Results - Labs CBC & Chem 7: 05/13/21 04:00 05/13/21 04:00 Labs: Laboratory Last Values WBC 19.8 K/mm3 (4.5-11.0) H 05/13/21 04:00 RBC 3.52 M/mm3 (3.65-5.03) L 05/13/21 04:00 Hgb 11.0 gm/dl (10.1-14.3) 05/13/21 04:00 Hct 34.6 % (30.3-42.9) 05/13/21 04:00 MCV 98 fl (79-97) H 05/13/21 04:00 MCH 31 pg (28-32) 05/13/21 04:00 MCHC 32 % (30-34) 05/13/21 04:00 RDW 18.5 % (13.2-15.2) H 05/13/21 04:00 Plt Count 204 K/mm3 (140-440) 05/13/21 04:00 Lymph % (Auto) 10.8 % (13.4-35.0) L 05/11/21 05:43 [place]ley % (Auto) 2.5 % (0.0-7.3) 05/11/21 05:43 Eos % (Auto) 2.1 % (0.0-4.3) 05/11/21 05:43 Baso % (Auto) 0.5 % (0.0-1.8) 05/11/21 05:43 Lymph # (Auto) 0.6 K/mm3 (1.2-5.4) L 05/11/21 05:43 Whitley # (Auto) 0.2 K/mm3 (0.0-0.8) 05/11/21 05:43 Eos # (Auto) 0.1 K/mm3 (0.0-0.4) 05/11/21 05:43 Baso # (Auto) 0.0 K/mm3 (0.0-0.1) 05/11/21 05:43 Add Manual Diff Complete 05/12/21 04:08 Total Counted 200 05/12/21 04:08 Seg Neutrophils % 84.1 % (40.0-70.0) H 05/11/21 05:43 Seg Neuts % (Manual) 85.5 % (40.0-70.0) H 05/12/21 04:08 Band Neutrophils % 8.5 % 05/12/21 04:08 Lymphocytes % (Manual) 2.0 % (13.4-35.0) L 05/12/21 04:08 Monocytes % (Manual) 3.0 % (0.0-7.3) 05/12/21 04:08 Eosinophils % (Manual) 1.0 % (0.0-4.3) 05/12/21 04:08 Nucleated RBC % Not Reportable 05/12/21 04:08 Seg Neutrophils # 5.0 K/mm3 (1.8-7.7) 05/11/21 05:43 Seg Neutrophils # Man 19.5 K/mm3 (1.8-7.7) H 05/12/21 04:08 Band Neutrophils # 1.9 K/mm3 05/12/21 04:08 Lymphocytes # (Manual) 0.5 K/mm3 (1.2-5.4) L 05/12/21 04:08 Abs React Lymphs (Man) 0.0 K/mm3 05/12/21 04:08 Monocytes # (Manual) 0.7 K/mm3 (0.0-0.8) 05/12/21 04:08 Eosinophils # (Manual) 0.2 K/mm3 (0.0-0.4) 05/12/21 04:08 Basophils # (Manual) 0.0 K/mm3 (0.0-0.1) 05/12/21 04:08 Metamyelocytes # 0.0 K/mm3 05/12/21 04:08 Myelocytes # 0.0 K/mm3 05/12/21 04:08 Promyelocytes # 0.0 K/mm3 05/12/21 04:08 Blast Cells # 0.0 K/mm3 05/12/21 04:08 WBC Morphology Not Reportable 05/12/21 04:08 Hypersegmented Neuts Not Reportable 05/12/21 04:08 Hyposegmented Neuts Not Reportable 05/12/21 04:08 Hypogranular Neuts Not Reportable 05/12/21 04:08 Smudge Cells Not Reportable 05/12/21 04:08 Toxic Granulation Not Reportable 05/12/21 04:08 Toxic Vacuolation Not Reportable 05/12/21 04:08 Dohle Bodies Not Reportable 05/12/21 04:08 Pelger-Huet Anomaly Not Reportable 05/12/21 04:08 Elizabeth Rods Not Reportable 05/12/21 04:08 Platelet Estimate Consistent w auto 05/12/21 04:08 Clumped Platelets Not Reportable 05/12/21 04:08 Plt Clumps, EDTA Not Reportable 05/12/21 04:08 Large Platelets Not Reportable 05/12/21 04:08 Giant Platelets Not Reportable 05/12/21 04:08 Platelet Satelliting Not Reportable 05/12/21 04:08 Plt Morphology Comment Not Reportable 05/12/21 04:08 RBC Morphology Not Reportable 05/12/21 04:08 Dimorphic RBCs Not Reportable 05/12/21 04:08 Polychromasia Not Reportable 05/12/21 04:08 Hypochromasia Not Reportable 05/12/21 04:08 Poikilocytosis Not Reportable 05/12/21 04:08 Anisocytosis 1+ 05/12/21 04:08 Microcytosis Not Reportable 05/12/21 04:08 Macrocytosis Not Reportable 05/12/21 04:08 Spherocytes Not Reportable 05/12/21 04:08 Pappenheimer Bodies Not Reportable 05/12/21 04:08 Sickle Cells Not Reportable 05/12/21 04:08 Target Cells Not Reportable 05/12/21 04:08 Tear Drop Cells Not Reportable 05/12/21 04:08 Ovalocytes Not Reportable 05/12/21 04:08 Helmet Cells Not Reportable 05/12/21 04:08 Sibley-[place] Bodies Not Reportable 05/12/21 04:08 [place] Rings Not Reportable 05/12/21 04:08 [place] Cells Not Reportable 05/12/21 04:08 Bite Cells Not Reportable 05/12/21 04:08 Crenated Cell Not Reportable 05/12/21 04:08 Elliptocytes Not Reportable 05/12/21 04:08 Acanthocytes (Spur) Not Reportable 05/12/21 04:08 Rouleaux Not Reportable 05/12/21 04:08 Hemoglobin C Crystals Not Reportable 05/12/21 04:08 Schistocytes Not Reportable 05/12/21 04:08 Malaria parasites Not Reportable 05/12/21 04:08 Tahir Bodies Not Reportable 05/12/21 04:08 Hem Pathologist Commnt No 05/12/21 04:08 PT 16.0 Sec. (12.2-14.9) H 05/11/21 05:43 INR 1.16 (0.87-1.13) H 05/11/21 05:43 Sodium 137 mmol/L (137-145) 05/13/21 04:00 Potassium 3.4 mmol/L (3.6-5.0) L 05/13/21 04:00 Chloride 107.1 mmol/L (98-107) H 05/13/21 04:00 Carbon Dioxide 19 mmol/L (22-30) L 05/13/21 04:00 Anion Gap 14 mmol/L 05/13/21 04:00 BUN 4 mg/dL (7-17) L 05/13/21 04:00 Creatinine 0.4 mg/dL (0.6-1.2) L 05/13/21 04:00 Estimated GFR > 60 ml/min 05/13/21 04:00 BUN/Creatinine Ratio 10 % 05/13/21 04:00 Glucose 157 mg/dL (65-100) H 05/13/21 04:00 POC Glucose 110 mg/dL (70-105) H 05/13/21 12:19 Hemoglobin A1c 5.2 % (4-6) 05/12/21 04:08 Lactic Acid 3.30 mmol/L (0.7-2.0) H* 05/12/21 Unknown Calcium 7.4 mg/dL (8.4-10.2) L D 05/13/21 04:00 Phosphorus 1.60 mg/dL (2.5-4.5) L 05/13/21 04:00 Magnesium 1.50 mg/dL (1.7-2.3) L 05/13/21 04:00 Total Bilirubin 1.40 mg/dL (0.1-1.2) H 05/13/21 04:00 Direct Bilirubin 1.4 mg/dL (0-0.2) H 05/11/21 05:43 Indirect Bilirubin 0.7 mg/dL 05/11/21 05:43 AST 95 units/L (5-40) H 05/13/21 04:00 ALT 45 units/L (7-56) 05/13/21 04:00 Alkaline Phosphatase 328 units/L (35-129) H 05/13/21 04:00 Total Protein 5.5 g/dL (6.3-8.2) L 05/13/21 04:00 Albumin 1.6 g/dL (3.9-5) L 05/13/21 04:00 Albumin/Globulin Ratio 0.4 % 05/13/21 04:00 Lipase 3 units/L (13-60) L 05/11/21 05:43 Urine Color Deisi (Yellow) 05/11/21 11:18 Urine Turbidity Clear (Clear) 05/11/21 11:18 Urine pH 6.0 (5.0-7.0) 05/11/21 11:18 Ur Specific [place] 1.035 (1.003-1.030) H 05/11/21 11:18 Urine Protein 100 mg/dl mg/dL (Negative) 05/11/21 11:18 Urine Glucose (UA) Neg mg/dL (Negative) 05/11/21 11:18 Urine Ketones Neg mg/dL (Negative) 05/11/21 11:18 Urine Blood Neg (Negative) 05/11/21 11:18 Urine Nitrite Neg (Negative) 05/11/21 11:18 Urine Bilirubin Neg (Negative) 05/11/21 11:18 Urine Urobilinogen < 2.0 mg/dL (<2.0) 05/11/21 11:18 Ur Leukocyte Esterase Neg (Negative) 05/11/21 11:18 Urine WBC (Auto) 2.0 /HPF (0.0-6.0) 05/11/21 11:18 Urine RBC (Auto) 1.0 /HPF (0.0-6.0) 05/11/21 11:18 Urine Mucus Few /HPF 05/11/21 11:18 Coronavirus (PCR) Negative (Negative) 05/12/21 10:16 Hepatitis A IgM Ab Non-reactive (NonReactive) 05/12/21 12:30 Hep Bs Antigen Nonreactive (Negative) 05/12/21 12:30 Hep B Core IgM Ab Non-reactive (NonReactive) 05/12/21 12:30 Hepatitis C Antibody Non-reactive (NonReactive) 05/12/21 12:30 Microbiology: Microbiology 05/11/21 12:28 Peripheral/Venous Blood Culture - Preliminary NO GROWTH AFTER 24 HOURS 05/11/21 12:28 Peripheral/Venous Blood Culture - Preliminary NO GROWTH AFTER 24 HOURS Rivas/IV: Voiding Method External Female Catheter Active Medications - Current Medications Current Medications: Generic Name Dose Route Start Last Admin Trade Name Freq PRN Reason Stop Dose Admin Acetaminophen 650 mg 05/11/21 21:40 Acetaminophen 325 Mg Tab PO Q4H PRN Pain MILD(1-3)/Fever >100.5/WOODS Arformoterol Tartrate 15 mcg 05/12/21 08:00 05/13/21 08:26 Arformoterol 15 Mcg/2 Ml Nebu IH 15 mcg Q12HRT ABRAHAN Administration Benzonatate 100 mg 05/12/21 15:53 05/13/21 04:17 Benzonatate 100 Mg Cap PO 100 mg Q8HR PRN Administration Cough Budesonide 0.5 mg 05/12/21 08:00 05/13/21 08:23 Budesonide 0.5 Mg/2 Ml Nebu IH 0.5 mg Q12HRT ABRAHAN Administration Cetirizine HCl 10 mg 05/12/21 10:00 05/13/21 10:35 Cetirizine 10 Mg Tab PO 10 mg QDAY ABRAHAN Administration Cholecalciferol 5,000 unit 05/12/21 10:00 05/13/21 10:33 Cholecalciferol (Vit D3) 5,000 Unit Tab PO 5,000 unit DAILY ABRAHAN Administration Dextrose 25 ml 05/12/21 11:57 05/12/21 11:59 Dextrose 50% In Water (25gm) 50 Ml Syringe IV 20 ml Q30MIN PRN Administration Hypoglycemia Protocol Dextrose 50 ml 05/12/21 11:57 Dextrose 50% In Water (25gm) 50 Ml Syringe IV Q30MIN PRN Hypoglycemia Protocol Enoxaparin Sodium 40 mg 05/12/21 22:00 05/12/21 21:05 Enoxaparin 40 Mg/0.4 Ml Inj SUB-Q 40 mg QDAY@2200 ABRAHAN Administration Protocol Hydrocortisone Sodium Succinate 100 mg 05/13/21 14:00 Hydrocortisone Sod Succ 100 Mg/2 Ml Vial IV Q8HR ABRAHAN NORepinephrine/NS 8 MG-250 ML 8 mg in 250 mls @ 3.75 mls/hr 05/11/21 15:00 05/13/21 12:48 Norepinephrine/Ns 8 Mg-250 Ml (Double Conc) IV 3 mcg/min TITRATE ABRAHAN 5.625 mls/hr Titration Protocol 2 MCG/MIN Vasopressin 20 unit/ Sodium 101 mls @ 9.09 mls/hr 05/11/21 20:00 05/12/21 17:18 Chloride IV Infused TITR ABRAHAN Titration Protocol 0.03 UNITS/MIN Cefepime HCl 2 gm in 100 mls @ 200 mls/hr 05/11/21 22:00 05/13/21 06:13 Cefepime/Ns 2 Gm/100 Ml IV 200 mls/hr Q8H ABRAHAN Administration Protocol Vancomycin HCl 1,250 mg/ 275 mls @ 166.667 mls/hr 05/12/21 13:00 05/13/21 03:59 Sodium Chloride IV 166.667 mls/hr Q12H ABRAHAN Administration Dextrose/Sodium Chloride 1,000 mls @ 75 mls/hr 05/12/21 21:00 05/12/21 21:04 D5ns IV 100 mls/hr DIRECT ABRAHAN Administration Potassium Phosphate 40 mmol/ 513.3333 mls @ 83 mls/hr 05/13/21 07:47 05/13/21 08:40 Sodium Chloride IV 05/13/21 13:58 83 mls/hr ONCE ONE Administration Metoclopramide HCl 10 mg 05/11/21 21:40 Metoclopramide 10 Mg/2 Ml Inj IV Q6H PRN Nausea And Vomiting Montelukast Sodium 10 mg 05/12/21 18:00 05/12/21 18:34 Montelukast 10 Mg Tab PO 10 mg QPM ABRAHAN Administration Morphine Sulfate 2 mg 05/11/21 21:40 05/13/21 08:36 Morphine 2 Mg/1 Ml Inj IV 2 mg Q4H PRN Administration Pain, Moderate (4-6) Ondansetron HCl 4 mg 05/11/21 21:40 05/12/21 02:16 Ondansetron 4 Mg/2 Ml Inj IV 4 mg Q8H PRN Administration Nausea And Vomiting Pantoprazole Sodium 40 mg 05/12/21 10:00 05/13/21 10:34 Pantoprazole 40 Mg Tab PO 40 mg DAILY ABRAHAN Administration Sodium Chloride 10 ml 05/11/21 22:00 05/13/21 10:35 Sodium Chloride 0.9% 10 Ml Flush Syringe IV 10 ml BID ABRAHAN Administration Sodium Chloride 10 ml 05/11/21 21:40 Sodium Chloride 0.9% 10 Ml Flush Syringe IV PRN PRN LINE FLUSH Nutrition/Malnutrition Assess - Dietary Evaluation Nutrition/Malnutrition Findings: Nutrition Notes Start: 05/13/21 09:47 Freq: Status: Active Protocol: Document 05/13/21 09:47 (Rec: 05/13/21 09:50 MK [id number]) Nutrition Notes Need for Assessment generated from: drive man,MST Initial or Follow up Brief Note Current Diagnosis COPD,Sepsis Other Pertinent Diagnosis hypotension, pancreatic cancer s/p radiation Current Diet NPO Height 5 ft 2 in Weight 78.4 kg [place] Body Weight (kg) 50.00 BMI 31.6 Subjective/Other Information RN screen for MST. Unable to contact pt. Pt with N/V on admission. Nutrition Intervention Follow-Up By: 05/15/21 Additional Comments F/U: assessment and diet advancement
[2021-05-13] MEDS ORDERED: HYDROCORTISONE SOD SUCC 100 MG/2 ML VIAL IV SCH (14:00)
[2021-05-13] MEDS: D5W/0.9% NACL 1,000 ML IV SCH (16:28)
[2021-05-13] MEDS: MONTELUKAST 10 MG TAB PO SCH (17:01)
[2021-05-13] MEDS ORDERED: FUROSEMIDE 40 MG/4 ML INJ IV STA (21:12)
--- NOTE | 2021-05-13 21:53 | XRay Report ---
CHEST 1 VIEW 05/13/2021 9:25 PM INDICATION / CLINICAL INFORMATION: frothy sputum, desaturation. COMPARISON: 05/11/2021 FINDINGS: SUPPORT DEVICES: Stable, satisfactory device positioning. HEART / MEDIASTINUM: Stable. LUNGS / PLEURA: Severe worsening of diffuse bilateral pulmonary opacities. No pneumothorax. ADDITIONAL FINDINGS: No significant additional findings. IMPRESSION: 1. Severe worsening of diffuse bilateral opacities since the prior study. Signer Name: Yonis Saucedo MD Signed: 05/13/2021 9:48 PM Workstation Name: [id number]
[2021-05-13] MEDS: ENOXAPARIN 40 MG/0.4 ML INJ SUB-Q SCH (21:58)
[2021-05-13] MEDS ORDERED: predniSONE 50 MG TAB PO SCH (22:00)
[2021-05-13] MEDS ORDERED: predniSONE 10 MG TAB PO SCH (22:00)
[2021-05-14] MEDS ORDERED: FUROSEMIDE 40 MG/4 ML INJ IV ONE (00:24)
[2021-05-14] MEDS ORDERED: LORazepam 2 MG/ML VIAL ONE (00:27)
[2021-05-14] MEDS ORDERED: LORazepam 2 MG/ML VIAL IV ONE (00:34)
[2021-05-14] MEDS: VANCOMYCIN 1,250 MG in SODIUM CHLORIDE 0.9% 250ML 250 ML IV SCH (04:07)
[2021-05-14] MEDS: CEFEPIME/NS 2 GM/100 ML 2 GM/100 ML BAG IV SCH ×2 (06:20→13:41)
[2021-05-14 06:26] LABS: Hematocrit 33.3 % (30.3-42.9); Mean Corpuscular HGB Conc 33 % (30-34); Mean Corpuscular Volume 98 fl (79-97); Platelet Count 158 K/mm3 (140-440); Red Blood Count 3.41 M/mm3 (3.65-5.03); Red Cell Distribution Width 18.6 % (13.2-15.2)
[2021-05-14 06:50] LABS: Alanine Aminotransferase 38 units/L (7-56); Albumin 1.8 g/dL (3.9-5); Blood Urea Nitrogen 6 mg/dL (7-17); Calcium 7.3 mg/dL (8.4-10.2); Hemolysis Index 14
[2021-05-14 06:55] LABS: BUN/Creatinine Ratio 12
[2021-05-14] MEDS ORDERED: POTASSIUM PHOSPHATE 30 MMOL in SODIUM CHLORIDE 0.9% 500 ML 500 ML IV SCH (09:00)
[2021-05-14] MEDS: ARFORMOTEROL 15 MCG/2 ML NEBU IH SCH ×2 (09:40→20:24)
[2021-05-14] MEDS: BUDESONIDE 0.5 MG/2 ML NEBU IH SCH ×2 (09:40→20:24)
[2021-05-14] MEDS: PANTOPRAZOLE 40 MG TAB PO SCH (10:08)
[2021-05-14] MEDS: CHOLECALCIFEROL (VIT D3) 5,000 UNIT TAB PO SCH (10:09)
[2021-05-14 10:43] LABS: ABG Base Excess 1.7 mmol/L (-2.0-3.0); ABG HCO3 27.2 mmol/L (20.0-26.0); ABG Methemoglobin 0.7 % (0.0-1.5); ABG Oxygen Saturation 96.2 % (95.0-99.0); ABG PCO2 46.3 mm Hg; ABG PH 7.387 pH Units (7.350-7.450)
[2021-05-14] MEDS ORDERED: ENOXAPARIN 80 MG/0.8 ML INJ SUB-Q SCH (11:00)
--- NOTE | 2021-05-14 12:05 | Gastroenterology Progress Note ---
Assessment and Plan 1. Abnormal liver enzymes with biliary dilatation - biliary stent with dilatation proximal to stent 2. History of pancreatic head cancer - s/p chemo/radiation, not a surgical candidate 3. Sepsis/shock - wbc improved and liver enzymes are trending down 4. respiratory failure -mrcp pending however noted worsening respiratory function, now on bipap so does not appear stable for imaging at this time. noted cxr findings. cont abx and trend liver enzymes, and will follow Subjective Date of service: 05/14/21 Principal diagnosis: abdominal pain, abnormal liver enzymes Interval history: pt with worsening respiratory status overnight, now on bipap. cxr shows worsening of bilateral lung opacities. Objective - Exam Narrative Exam: gen: labored respirations, on bipap abd: soft, nt cv: tachycardic, s1 and s2 - Constitutional Vitals: Temp Pulse Resp BP Pulse Ox 98 F 108 H 43 H 108/64 99 05/14/21 08:00 05/14/21 10:30 05/14/21 10:30 05/14/21 10:30 05/14/21 10:30 - Labs CBC & Chem 7: 05/14/21 06:15 05/14/21 06:15 Labs: Laboratory Results - last 24 hr 05/13/21 05/13/21 05/13/21 12:19 17:51 22:57 WBC RBC Hgb Hct MCV MCH MCHC RDW Plt Count ABG pH ABG pCO2 ABG pO2 ABG HCO3 ABG O2 Saturation ABG O2 Content ABG Base Excess ABG Hemoglobin ABG Carboxyhemoglobin ABG Methemoglobin Oxyhemoglobin FiO2 Sodium Potassium Chloride Carbon Dioxide Anion Gap BUN Creatinine Estimated GFR BUN/Creatinine Ratio Glucose POC Glucose 110 H 97 104 Calcium Phosphorus Magnesium Total Bilirubin AST ALT Alkaline Phosphatase Total Protein Albumin Albumin/Globulin Ratio 05/14/21 05/14/21 05/14/21 05:44 06:15 06:15 WBC 11.7 H RBC 3.41 L Hgb 11.0 Hct 33.3 MCV 98 H MCH 32 MCHC 33 RDW 18.6 H Plt Count 158 ABG pH ABG pCO2 ABG pO2 ABG HCO3 ABG O2 Saturation ABG O2 Content ABG Base Excess ABG Hemoglobin ABG Carboxyhemoglobin ABG Methemoglobin Oxyhemoglobin FiO2 Sodium 139 Potassium 3.2 L Chloride 104.9 Carbon Dioxide 24 Anion Gap 13 BUN 6 L Creatinine 0.5 L Estimated GFR > 60 BUN/Creatinine Ratio 12 Glucose 103 H POC Glucose 86 Calcium 7.3 L Phosphorus 1.70 L Magnesium 2.00 Total Bilirubin 1.20 AST 66 H ALT 38 Alkaline Phosphatase 295 H Total Protein 5.3 L Albumin 1.8 L Albumin/Globulin Ratio 0.5 05/14/21 10:25 WBC RBC Hgb Hct MCV MCH MCHC RDW Plt Count ABG pH 7.387 ABG pCO2 46.3 ABG pO2 76.0 L ABG HCO3 27.2 H ABG O2 Saturation 96.2 ABG O2 Content 15.3 ABG Base Excess 1.7 ABG Hemoglobin 11.5 L ABG Carboxyhemoglobin 1.1 ABG Methemoglobin 0.7 Oxyhemoglobin 94.4 L FiO2 10 Sodium Potassium Chloride Carbon Dioxide Anion Gap BUN Creatinine Estimated GFR BUN/Creatinine Ratio Glucose POC Glucose Calcium Phosphorus Magnesium Total Bilirubin AST ALT Alkaline Phosphatase Total Protein Albumin Albumin/Globulin Ratio
--- NOTE | 2021-05-14 13:09 | Progress Note ---
Assessment and Plan Assessment and plan: This is a 48-year-old female with past medical history of COPD, pancreatic cancer with radiation s/p pancreatic stent placement, pulmonary fibrosis, chronic respiratory failure on 2 L NC at home admitted with sepsis, transaminitis and lactic acidosis. Hospital Course to Date: 05/12: Patient remains on high-dose Levophed and vasopressin. Given 1 L LR bolus. GI would like an MRCP to be conducted which has been ordered. Patient cleared for sips of water. Added Tessalon due to severe cough. Potassium repleted. Covid PCR negative. 05/13: Remains on Levophed and vasopressin has been off since yesterday evening. Started on stress dose steroids. MRCP pending. Hypokalemia, hypomagnesemia and hypophosphatemia repleted. Liver enzymes trending down. Started on D5 nor mal saline yesterday. 05/14: Patient with worsen respiratory status this am, tachypneic with increased O2 requirement. On full support on the Bipap this am with worsening diffuse bilateral opacities on CXR, s/p X1 dose of IV lasix overnight. Patient remains afebrile with no leukocytosis. Will continue IV Lasix X3 doses, f/u CXR in the am. D/W CCM due to patient worsening respiratory status hold on MRCP for today. Patient is off Levophed this am, leave pressors on standby might need to be put back on low dose pressors with IV diuretic. Patient also noted with Rt. fem CVC which was inserted in the ED, most likely due to be change, unsuccessfult PICC by IVT today and patient is refusing Port access at this time. Assessment and Plan #Neuro: NAD -Avoid delirium -Reorientation as needed -Maintain sleep-wake cycle #CV: Hypotension #h/o HTN -Off pressors this am -Schedule IV Lasix -Levophed on standby, might need to be put back on low dose pressors with IV diuretic -Hold home htn medications -BP monitoring per protocol for MAP 65 and above -CCM consulted, appreciate recommendations #Respiratory: Acute on chronic respiratory failure #h/o pulmonary fibrosis #O2 Dependent at home -With worsen respiratory status this am, RR in the high 30s -Desated overnight, SPO2 in low 60 -On full support on Bipap- 100%, 15/10 -Overnight CXR with worsening diffuse bilateral opacities -S/p X1 dose 40mg IV Lasix overnight -Check ABG -Orders placed for 20mg [id number] -Continue Supplemental oxygen and SPO2 monitoring for SPO2 goal above 92% -Repeat CXR in the am -Tessalon Perles as needed for cough -Pulmonary hygiene -[facility] is following #GI: Transaminitis #H/o Pancreatic CA s/p stent placement #Biliary dilation #R/o cholangitis #Nausea/Vomiting- Resolved -CT abdomen/pelvis showed pancreatic cancer with metallic stent with possible occlusion, mild pelvic fluid and mild colonic thickening -GI consulted, patient recommendations -MRCP pending, If stent occlusion/biliary obstruction would recommend IR consult for PTC drain per GI -Keep patient NPO,Okay for sips of water -Continue PPI -BR to start once taking p.o. -Acute hepatitis panel negative -PRN antiemetic for N/V #:Hypokalemia, hypophosphatemia, hypomagnesemia -Electrolytes repleted -Continue to monitor and replete electrolytes as needed -Strict intake and output -Purewick in place, over 2.6L UOP, still even since admit -Keep patient at a net negatibe balance -Daily weights -Renally dose meds, avoid nephrotoxins -Repeat Labs ordered #ID: Sepsis #Leukopcytosis #Lactic acidosis -Presented with elevated WBCs, hypotensive, and with lactic acidosis -COVID swab negative -Blood cultures x2 no growth to date -Leukocytosis downtrending, 11.7 this am -Patient remains afebrile -Continue IV Antibiotic therap -Monitor WBC and fever curve -ID consult if needed #Heme/ONC: h/o Pancreatic Cancer #s/p pancreatic stent placement -Currently on radiation -F/U with outpatient with own oncologist -possible stent occlusion, MRCP pending -Not a surgical candidate per GI -Right chest post not accessed, patient refused -RUE swelling- RUE doppler ordered -Continue AC-Lovenox and SCD to bilateral lower extremities while in bed #Endo: Hypoglycemia -Continue SSI Q6hrs -IVF on hold due to worsening pulmo edema -Continue Hypoglycemia protocol -Avoid hypoglycemia The high probability of a clinically significant, sudden or life threatening deterioration of the [Multiple] system(s) required my full and direct attention, intervention and personal management. The aggregate critical care time was [60] minutes. This time is in addition to time spent performing reported procedures but includes the following: [x] Data Review and interpretation [x] Patient assessment and monitoring of vital signs [x] Documentation [x] Medication orders and management Disposition Plan: ICU Total Time Spent with Patient (Minutes): 60 History Interval history: Patient seen and examined at the bedside. Patient is awake and alert, tachypneic and on full support continuous Bipap this am. Per RN patient desated with SPO2 in the 60s overnight, was diuresed with 40mg of Lasix overnight. Hospitalist Physical - Constitutional Vitals: Temp Pulse Resp BP Pulse Ox 99 F 107 H 39 H 100/60 100 05/14/21 12:00 05/14/21 12:30 05/14/21 12:30 05/14/21 12:30 05/14/21 12:30 General appearance: Present: mild distress, obese - EENT Eyes: Present: PERRL, EOM intact ENT: hearing intact - Neck Neck: Present: normal ROM - Respiratory Respiratory effort: labored Respiratory: right: rales, left: diminished - Cardiovascular Rhythm: regular Heart Sounds: Present: S1 & S2 - Extremities Extremities: no ischemia, pulses intact, pulses symmetrical Extremity abnormal: edema - Peripheral Assessment Generalized Edema Type: Non-pitting Edema Degree: 2+ Capillary Refill: < 3 seconds Skin Temperature: Warm Peripheral Pulses: within normal limits - Abdominal General gastrointestinal: soft, non-tender, normal bowel sounds - Integumentary Integumentary: Present: warm, dry - Psychiatric Psychiatric: appropriate mood/affect, cooperative - Neurologic Neurologic: moves all extremities - Allied Health Allied health notes reviewed: nursing Results - Labs CBC & Chem 7: 05/14/21 06:15 05/14/21 15:20 Labs: Laboratory Last Values WBC 11.7 K/mm3 (4.5-11.0) H 05/14/21 06:15 RBC 3.41 M/mm3 (3.65-5.03) L 05/14/21 06:15 Hgb 11.0 gm/dl (10.1-14.3) 05/14/21 06:15 Hct 33.3 % (30.3-42.9) 05/14/21 06:15 MCV 98 fl (79-97) H 05/14/21 06:15 MCH 32 pg (28-32) 05/14/21 06:15 MCHC 33 % (30-34) 05/14/21 06:15 RDW 18.6 % (13.2-15.2) H 05/14/21 06:15 Plt Count 158 K/mm3 (140-440) 05/14/21 06:15 Lymph % (Auto) 10.8 % (13.4-35.0) L 05/11/21 05:43 Levy % (Auto) 2.5 % (0.0-7.3) 05/11/21 05:43 Eos % (Auto) 2.1 % (0.0-4.3) 05/11/21 05:43 Baso % (Auto) 0.5 % (0.0-1.8) 05/11/21 05:43 Lymph # (Auto) 0.6 K/mm3 (1.2-5.4) L 05/11/21 05:43 Levy # (Auto) 0.2 K/mm3 (0.0-0.8) 05/11/21 05:43 Eos # (Auto) 0.1 K/mm3 (0.0-0.4) 05/11/21 05:43 Baso # (Auto) 0.0 K/mm3 (0.0-0.1) 05/11/21 05:43 Add Manual Diff Complete 05/12/21 04:08 Total Counted 200 05/12/21 04:08 Seg Neutrophils % 84.1 % (40.0-70.0) H 05/11/21 05:43 Seg Neuts % (Manual) 85.5 % (40.0-70.0) H 05/12/21 04:08 Band Neutrophils % 8.5 % 05/12/21 04:08 Lymphocytes % (Manual) 2.0 % (13.4-35.0) L 05/12/21 04:08 Monocytes % (Manual) 3.0 % (0.0-7.3) 05/12/21 04:08 Eosinophils % (Manual) 1.0 % (0.0-4.3) 05/12/21 04:08 Nucleated RBC % Not Reportable 05/12/21 04:08 Seg Neutrophils # 5.0 K/mm3 (1.8-7.7) 05/11/21 05:43 Seg Neutrophils # Man 19.5 K/mm3 (1.8-7.7) H 05/12/21 04:08 Band Neutrophils # 1.9 K/mm3 05/12/21 04:08 Lymphocytes # (Manual) 0.5 K/mm3 (1.2-5.4) L 05/12/21 04:08 Abs React Lymphs (Man) 0.0 K/mm3 05/12/21 04:08 Monocytes # (Manual) 0.7 K/mm3 (0.0-0.8) 05/12/21 04:08 Eosinophils # (Manual) 0.2 K/mm3 (0.0-0.4) 05/12/21 04:08 Basophils # (Manual) 0.0 K/mm3 (0.0-0.1) 05/12/21 04:08 Metamyelocytes # 0.0 K/mm3 05/12/21 04:08 Myelocytes # 0.0 K/mm3 05/12/21 04:08 Promyelocytes # 0.0 K/mm3 05/12/21 04:08 Blast Cells # 0.0 K/mm3 05/12/21 04:08 WBC Morphology Not Reportable 05/12/21 04:08 Hypersegmented Neuts Not Reportable 05/12/21 04:08 Hyposegmented Neuts Not Reportable 05/12/21 04:08 Hypogranular Neuts Not Reportable 05/12/21 04:08 Smudge Cells Not Reportable 05/12/21 04:08 Toxic Granulation Not Reportable 05/12/21 04:08 Toxic Vacuolation Not Reportable 05/12/21 04:08 Dohle Bodies Not Reportable 05/12/21 04:08 Pelger-Huet Anomaly Not Reportable 05/12/21 04:08 Elizabeth Rods Not Reportable 05/12/21 04:08 Platelet Estimate Consistent w auto 05/12/21 04:08 Clumped Platelets Not Reportable 05/12/21 04:08 Plt Clumps, EDTA Not Reportable 05/12/21 04:08 Large Platelets Not Reportable 05/12/21 04:08 Giant Platelets Not Reportable 05/12/21 04:08 Platelet Satelliting Not Reportable 05/12/21 04:08 Plt Morphology Comment Not Reportable 05/12/21 04:08 RBC Morphology Not Reportable 05/12/21 04:08 Dimorphic RBCs Not Reportable 05/12/21 04:08 Polychromasia Not Reportable 05/12/21 04:08 Hypochromasia Not Reportable 05/12/21 04:08 Poikilocytosis Not Reportable 05/12/21 04:08 Anisocytosis 1+ 05/12/21 04:08 Microcytosis Not Reportable 05/12/21 04:08 Macrocytosis Not Reportable 05/12/21 04:08 Spherocytes Not Reportable 05/12/21 04:08 Pappenheimer Bodies Not Reportable 05/12/21 04:08 Sickle Cells Not Reportable 05/12/21 04:08 Target Cells Not Reportable 05/12/21 04:08 Tear Drop Cells Not Reportable 05/12/21 04:08 Ovalocytes Not Reportable 05/12/21 04:08 Helmet Cells Not Reportable 05/12/21 04:08 [place] Bodies Not Reportable 05/12/21 04:08 [place] Rings Not Reportable 05/12/21 04:08 Marcin Cells Not Reportable 05/12/21 04:08 Bite Cells Not Reportable 05/12/21 04:08 Crenated Cell Not Reportable 05/12/21 04:08 Elliptocytes Not Reportable 05/12/21 04:08 Acanthocytes (Spur) Not Reportable 05/12/21 04:08 Rouleaux Not Reportable 05/12/21 04:08 Hemoglobin C Crystals Not Reportable 05/12/21 04:08 Schistocytes Not Reportable 05/12/21 04:08 Malaria parasites Not Reportable 05/12/21 04:08 Tahir Bodies Not Reportable 05/12/21 04:08 Hem Pathologist Commnt No 05/12/21 04:08 PT 16.0 Sec. (12.2-14.9) H 05/11/21 05:43 INR 1.16 (0.87-1.13) H 05/11/21 05:43 ABG pH 7.387 pH Units (7.350-7.450) 05/14/21 10:25 ABG pCO2 46.3 mm Hg 05/14/21 10:25 ABG pO2 76.0 mm Hg (80.0-90.0) L 05/14/21 10:25 ABG HCO3 27.2 mmol/L (20.0-26.0) H 05/14/21 10:25 ABG O2 Saturation 96.2 % (95.0-99.0) 05/14/21 10:25 ABG O2 Content 15.3 (0.0-44) 05/14/21 10:25 ABG Base Excess 1.7 mmol/L (-2.0-3.0) 05/14/21 10:25 ABG Hemoglobin 11.5 gm/dl (12.0-16.0) L 05/14/21 10:25 ABG Carboxyhemoglobin 1.1 % (0.0-5.0) 05/14/21 10:25 ABG Methemoglobin 0.7 % (0.0-1.5) 05/14/21 10:25 Oxyhemoglobin 94.4 % (95.0-99.0) L 05/14/21 10:25 FiO2 10 % 05/14/21 10:25 Sodium 139 mmol/L (137-145) 05/14/21 06:15 Potassium 3.2 mmol/L (3.6-5.0) L 05/14/21 06:15 Chloride 104.9 mmol/L (98-107) 05/14/21 06:15 Carbon Dioxide 24 mmol/L (22-30) 05/14/21 06:15 Anion Gap 13 mmol/L 05/14/21 06:15 BUN 6 mg/dL (7-17) L 05/14/21 06:15 Creatinine 0.5 mg/dL (0.6-1.2) L 05/14/21 06:15 Estimated GFR > 60 ml/min 05/14/21 06:15 BUN/Creatinine Ratio 12 % 05/14/21 06:15 Glucose 103 mg/dL (65-100) H 05/14/21 06:15 POC Glucose 70 mg/dL (70-105) 05/14/21 12:43 Hemoglobin A1c 5.2 % (4-6) 05/12/21 04:08 Lactic Acid 3.30 mmol/L (0.7-2.0) H* 05/12/21 Unknown Calcium 7.3 mg/dL (8.4-10.2) L 05/14/21 06:15 Phosphorus 1.70 mg/dL (2.5-4.5) L 05/14/21 06:15 Magnesium 2.00 mg/dL (1.7-2.3) 05/14/21 06:15 Total Bilirubin 1.20 mg/dL (0.1-1.2) 05/14/21 06:15 Direct Bilirubin 1.4 mg/dL (0-0.2) H 05/11/21 05:43 Indirect Bilirubin 0.7 mg/dL 05/11/21 05:43 AST 66 units/L (5-40) H 05/14/21 06:15 ALT 38 units/L (7-56) 05/14/21 06:15 Alkaline Phosphatase 295 units/L (35-129) H 05/14/21 06:15 Total Protein 5.3 g/dL (6.3-8.2) L 05/14/21 06:15 Albumin 1.8 g/dL (3.9-5) L 05/14/21 06:15 Albumin/Globulin Ratio 0.5 % 05/14/21 06:15 Lipase 3 units/L (13-60) L 05/11/21 05:43 Urine Color [place] (Yellow) 05/11/21 11:18 Urine Turbidity Clear (Clear) 05/11/21 11:18 Urine pH 6.0 (5.0-7.0) 05/11/21 11:18 Ur Specific [place] 1.035 (1.003-1.030) H 05/11/21 11:18 Urine Protein 100 mg/dl mg/dL (Negative) 05/11/21 11:18 Urine Glucose (UA) Neg mg/dL (Negative) 05/11/21 11:18 Urine Ketones Neg mg/dL (Negative) 05/11/21 11:18 Urine Blood Neg (Negative) 05/11/21 11:18 Urine Nitrite Neg (Negative) 05/11/21 11:18 Urine Bilirubin Neg (Negative) 05/11/21 11:18 Urine Urobilinogen < 2.0 mg/dL (<2.0) 05/11/21 11:18 Ur Leukocyte Esterase Neg (Negative) 05/11/21 11:18 Urine WBC (Auto) 2.0 /HPF (0.0-6.0) 05/11/21 11:18 Urine RBC (Auto) 1.0 /HPF (0.0-6.0) 05/11/21 11:18 Urine Mucus Few /HPF 05/11/21 11:18 Coronavirus (PCR) Negative (Negative) 05/12/21 10:16 Hepatitis A IgM Ab Non-reactive (NonReactive) 05/12/21 12:30 Hep Bs Antigen Nonreactive (Negative) 05/12/21 12:30 Hep B Core IgM Ab Non-reactive (NonReactive) 05/12/21 12:30 Hepatitis C Antibody Non-reactive (NonReactive) 05/12/21 12:30 Microbiology: Microbiology 05/11/21 12:28 Peripheral/Venous Blood Culture - Preliminary NO GROWTH AFTER 48 HOURS 05/11/21 12:28 Peripheral/Venous Blood Culture - Preliminary NO GROWTH AFTER 48 HOURS Rivas/IV: Voiding Method External Female Catheter Active Medications - Current Medications Current Medications: Generic Name Dose Route Start Last Admin Trade Name Freq PRN Reason Stop Dose Admin Acetaminophen 650 mg 05/11/21 21:40 Acetaminophen 325 Mg Tab PO Q4H PRN Pain MILD(1-3)/Fever >100.5/WOODS Arformoterol Tartrate 15 mcg 05/12/21 08:00 05/14/21 09:40 Arformoterol 15 Mcg/2 Ml Nebu IH 15 mcg Q12HRT ABRAHAN Administration Benzonatate 100 mg 05/12/21 15:53 05/13/21 17:01 Benzonatate 100 Mg Cap PO 100 mg Q8HR PRN Administration Cough Budesonide 0.5 mg 05/12/21 08:00 05/14/21 09:40 Budesonide 0.5 Mg/2 Ml Nebu IH 0.5 mg Q12HRT ABRAHAN Administration Cetirizine HCl 10 mg 05/12/21 10:00 05/13/21 10:35 Cetirizine 10 Mg Tab PO 10 mg QDAY ABRAHAN Administration Cholecalciferol 5,000 unit 05/12/21 10:00 05/14/21 10:09 Cholecalciferol (Vit D3) 5,000 Unit Tab PO Not Given DAILY ABRAHAN Dextrose 50 ml 05/12/21 11:57 Dextrose 50% In Water (25gm) 50 Ml Syringe IV Q30MIN PRN Hypoglycemia Protocol Enoxaparin Sodium 40 mg 05/14/21 22:00 Enoxaparin 40 Mg/0.4 Ml Inj SUB-Q QDAY@2200 ABRAHAN Protocol Furosemide 20 mg 05/14/21 14:00 Furosemide 20 Mg/2 Ml Inj IV 05/15/21 06:01 Q8HR ABRAHAN NORepinephrine/NS 8 MG-250 ML 8 mg in 250 mls @ 3.75 mls/hr 05/11/21 15:00 05/14/21 10:09 Norepinephrine/Ns 8 Mg-250 Ml (Double Conc) IV 2 mcg/min TITRATE ABRAHAN 3.75 mls/hr Titration Protocol 2 MCG/MIN Vasopressin 20 unit/ Sodium 101 mls @ 9.09 mls/hr 05/11/21 20:00 05/12/21 17:18 Chloride IV Infused TITR ABRAHAN Titration Protocol 0.03 UNITS/MIN Cefepime HCl 2 gm in 100 mls @ 200 mls/hr 05/11/21 22:00 05/14/21 06:20 Cefepime/Ns 2 Gm/100 Ml IV 200 mls/hr Q8H ABRAHAN Administration Protocol Vancomycin HCl 1,250 mg/ 275 mls @ 166.667 mls/hr 05/12/21 13:00 05/14/21 04:07 Sodium Chloride IV 166.667 mls/hr Q12H ABRAHAN Administration Dextrose/Sodium Chloride 1,000 mls @ 75 mls/hr 05/12/21 21:00 05/13/21 21:45 D5ns IV 0 mls/hr DIRECT ABRAHAN Infusion Potassium Phosphate 30 mmol/ 510 mls @ 83 mls/hr 05/14/21 09:00 05/14/21 10:08 Sodium Chloride IV 05/14/21 15:00 83 mls/hr ONCE@0900 ABRAHAN Administration Metoclopramide HCl 10 mg 05/11/21 21:40 Metoclopramide 10 Mg/2 Ml Inj IV Q6H PRN Nausea And Vomiting Montelukast Sodium 10 mg 05/12/21 18:00 05/13/21 17:01 Montelukast 10 Mg Tab PO 10 mg QPM ABRAHAN Administration Morphine Sulfate 2 mg 05/11/21 21:40 05/13/21 21:58 Morphine 2 Mg/1 Ml Inj IV 2 mg Q4H PRN Administration Pain, Moderate (4-6) Ondansetron HCl 4 mg 05/11/21 21:40 05/12/21 02:16 Ondansetron 4 Mg/2 Ml Inj IV 4 mg Q8H PRN Administration Nausea And Vomiting Pantoprazole Sodium 40 mg 05/12/21 10:00 05/14/21 10:08 Pantoprazole 40 Mg Tab PO Not Given DAILY ABRAHAN Prednisone 30 mg 05/13/21 22:00 Prednisone 10 Mg Tab PO BID ABRAHAN Sodium Chloride 10 ml 05/11/21 22:00 05/14/21 10:08 Sodium Chloride 0.9% 10 Ml Flush Syringe IV 10 ml BID ABRAHAN Administration Sodium Chloride 10 ml 05/11/21 21:40 Sodium Chloride 0.9% 10 Ml Flush Syringe IV PRN PRN LINE FLUSH Nutrition/Malnutrition Assess - Dietary Evaluation Nutrition/Malnutrition Findings: Nutrition Notes Start: 05/13/21 09:47 Freq: Status: Active Protocol: Document 05/13/21 09:47 MK (Rec: 05/13/21 09:50 MK [id number]) Nutrition Notes Need for Assessment generated from: necktie turner,MST Initial or Follow up Brief Note Current Diagnosis COPD,Sepsis Other Pertinent Diagnosis hypotension, pancreatic cancer s/p radiation Current Diet NPO Height 5 ft 2 in Weight 78.4 kg [place] Body Weight (kg) 50.00 BMI 31.6 Subjective/Other Information RN screen for MST. Unable to contact pt. Pt with N/V on admission. Nutrition Intervention Follow-Up By: 05/15/21 Additional Comments F/U: assessment and diet advancement
[2021-05-14] MEDS: FUROSEMIDE 20 MG/2 ML INJ IV SCH ×2 (13:41→21:18)
--- NOTE | 2021-05-14 14:27 | Consultation ---
History of Present Illness - Reason for Consult Consult date: 05/14/21 sepsis Requesting physician: ESTHER VOGT - History of Present Illness The patient is a 51-year-old female with pancreatic cancer status post chemo and radiation, not considered a candidate for surgery, COPD, pulmonary fibrosis, chronic respiratory failure requiring 2 L nasal oxygen was admitted with acute onset abdominal pain. Found to have sepsis. Is receiving broad-spectrum antibi otics. GI is following and due to findings of abnormal liver enzymes and biliary dilatation, she is awaiting an MRCP. She has septic shock, currently on Levophed, also on BiPAP. Limited historian. Review of Systems: General: Fever on admission, better now. HEENT: no new visual disturbance Respiratory: Shortness of breath, on BiPAP cardiovascular: No chest pain, syncope Gastrointestinal: Abdominal pain Genitourinary: No dysuria or hematuria Musculoskeletal: No new or worsening neck pain or back pain Neurologic: No headaches, seizures Hematologic: No easy bruising or bleeding Endocrine: No night sweats or acute weight loss Skin: negative for rash, jaundice Psychiatric: No suicidal or homicidal ideation Past History Past Medical History: other (pancreatic cancer, pulmonary fibrosis, copd) Past Surgical History: Other (port placement) Social history: no significant social history Medications and Allergies Allergies Allergy/AdvReac Type Severity Reaction Status Date / Time codeine Allergy Rash Verified 12/18/19 05:02 [From Tylenol-Codeine #3] methylprednisolone Allergy Anaphylaxis Verified 05/13/21 15:13 neomycin Allergy Hives Verified 08/01/17 14:15 Home Medications Medication Instructions Recorded Confirmed Last Taken Type Esomeprazole Magnesium 40 mg PO DAILY 03/19/19 03/19/19 Unknown History Symbicort 160-4.5 Mcg Inhaler 4.5 mcg INHALATION BID 03/19/19 03/19/19 Unknown History Vitamin D (Nf) 5,000 unit PO DAILY 03/19/19 03/19/19 Unknown History Albuterol Sulfate 2.5 mg INHALATION Q6H PRN #1 03/21/19 Unknown Rx Arformoterol Nebu [Brovana Nebu] 15 mcg IH Q12HRT ml 03/21/19 Unknown Rx Budesonide [Pulmicort Respules] 0.5 mg IH Q12HRT nebu 03/21/19 Unknown Rx Fluticasone Propionate 50 mcg IH BID #1 03/21/19 Unknown Rx Ipratropium/Albuterol Sulfate 1 ampul IH TIDRT #100 ampul.neb 03/21/19 Unknown Rx [DUONEB *Not for PRN Use*] Montelukast [Singulair] 10 mg PO QPM #30 tablet 03/21/19 Unknown Rx Pantoprazole [Protonix TAB] 20 mg PO QDAY tablet.dr 03/21/19 Unknown Rx metFORMIN XR [Glucophage XR] 500 mg PO QDDIAB #60 tablet 03/21/19 Unknown Rx oxyCODONE /ACETAMINOPHEN [Percocet 1 tab PO Q6H PRN tablet 03/21/19 Unknown Rx 5/325 mg] predniSONE 30 mg PO BID #60 03/21/19 Unknown Rx Clair Root [Clair] 250 mg PO QID PRN #30 capsule 12/18/19 Unknown Rx Ondansetron [Zofran Odt] 4 mg PO Q8HR PRN #20 tab.rapdis 12/18/19 Unknown Rx Potassium Chloride [K-Dur] 20 meq PO QDAY #10 tablet 12/18/19 Unknown Rx Cetirizine HCl [Zyrtec 10mg tab] 10 mg PO QDAY #30 tablet 01/21/21 Unknown Rx Prednisone [predniSONE 5 mg (6-Day 5 mg PO .TAPER #1 tab.ds.pk 01/21/21 Unknown Rx Pack, 21 Tabs)] Active Meds: Active Medications Acetaminophen (Acetaminophen 325 Mg Tab) 650 mg PO Q4H PRN PRN Reason: Pain MILD(1-3)/Fever >100.5/WOODS Arformoterol Tartrate (Arformoterol 15 Mcg/2 Ml Nebu) 15 mcg IH Q12HRT [facility] Last Admin: 05/14/21 09:40 Dose: 15 mcg Documented by: Benzonatate (Benzonatate 100 Mg Cap) 100 mg PO Q8HR PRN PRN Reason: Cough Last Admin: 05/13/21 17:01 Dose: 100 mg Documented by: Budesonide (Budesonide 0.5 Mg/2 Ml Nebu) 0.5 mg IH Q12HRT [facility] Last Admin: 05/14/21 09:40 Dose: 0.5 mg Documented by: Cetirizine HCl (Cetirizine 10 Mg Tab) 10 mg PO QDAY [facility] Last Admin: 05/13/21 10:35 Dose: 10 mg Documented by: Cholecalciferol (Cholecalciferol (Vit D3) 5,000 Unit Tab) 5,000 unit PO DAILY [facility] Last Admin: 05/14/21 10:09 Dose: Not Given Documented by: Dextrose (Dextrose 50% In Water (25gm) 50 Ml Syringe) 50 ml IV Q30MIN PRN; Prot ocol PRN Reason: Hypoglycemia Enoxaparin Sodium (Enoxaparin 40 Mg/0.4 Ml Inj) 40 mg SUB-Q QDAY@2200 [facility]; Protocol Furosemide (Furosemide 20 Mg/2 Ml Inj) 20 mg IV Q8HR [facility] Stop: 05/15/21 06:01 Last Admin: 05/14/21 13:41 Dose: 20 mg Documented by: NORepinephrine/NS 8 MG-250 ML (Norepinephrine/Ns 8 Mg-250 Ml (Double Conc)) 8 mg in 250 mls @ 3.75 mls/hr IV TITRATE [facility]; Protocol Last Titration: 05/14/21 10:09 Dose: 2 mcg/min, 3.75 mls/hr Documented by: Vasopressin 20 unit/ Sodium (Chloride) 101 mls @ 9.09 mls/hr IV TITR [facility]; Protocol Last Titration: 05/12/21 17:18 Dose: Infused Documented by: Cefepime HCl (Cefepime/Ns 2 Gm/100 Ml) 2 gm in 100 mls @ 200 mls/hr IV Q8H [facility]; Protocol Last Admin: 05/14/21 13:41 Dose: 200 mls/hr Documented by: Vancomycin HCl 1,250 mg/ (Sodium Chloride) 275 mls @ 166.667 mls/hr IV Q12H [facility] Last Admin: 05/14/21 04:07 Dose: 166.667 mls/hr Documented by: Dextrose/Sodium Chloride (D5ns) 1,000 mls @ 75 mls/hr IV DIRECT [facility] Last Infusion: 05/13/21 21:45 Dose: 0 mls/hr Documented by: Potassium Phosphate 30 mmol/ (Sodium Chloride) 510 mls @ 83 mls/hr IV ONCE@0900 [facility] Stop: 05/14/21 15:00 Last Admin: 05/14/21 10:08 Dose: 83 mls/hr Documented by: Metoclopramide HCl (Metoclopramide 10 Mg/2 Ml Inj) 10 mg IV Q6H PRN PRN Reason: Nausea And Vomiting Montelukast Sodium (Montelukast 10 Mg Tab) 10 mg PO QPM [facility] Last Admin: 05/13/21 17:01 Dose: 10 mg Documented by: Morphine Sulfate (Morphine 2 Mg/1 Ml Inj) 2 mg IV Q4H PRN PRN Reason: Pain, Moderate (4-6) Last Admin: 05/13/21 21:58 Dose: 2 mg Documented by: Ondansetron HCl (Ondansetron 4 Mg/2 Ml Inj) 4 mg IV Q8H PRN PRN Reason: Nausea And Vomiting Last Admin: 05/12/21 02:16 Dose: 4 mg Documented by: Pantoprazole Sodium (Pantoprazole 40 Mg Inj) 40 mg IV QDAY [facility] Prednisone (Prednisone 10 Mg Tab) 30 mg PO BID [facility] Sodium Chloride (Sodium Chloride 0.9% 10 Ml Flush Syringe) 10 ml IV BID [facility] Last Admin: 05/14/21 10:08 Dose: 10 ml Documented by: Sodium Chloride (Sodium Chloride 0.9% 10 Ml Flush Syringe) 10 ml IV PRN PRN PRN Reason: LINE FLUSH Physical Examination - Physical Exam Narrative exam: Physical Exam: Constitutional: Alert, cooperative. No acute distress Head, Ears, Nose: Normocephalic, atraumatic. External ears, nose normal Eyes: Conjunctivae/corneas clear. No icterus. No ptosis. Neck: Limited due to BiPAP Oral: BiPAP Cardiovascular: S1, S2 + Respiratory: AE fair bilaterally GI: Soft, bowel sounds normal. No peritoneal signs Musculoskeletal: No pedal edema, no cyanosis. Port present, non tender Skin: No rash or abscess Hem/Lymphatic: No palpable cervical or supraclavicular nodes. No lymphangitis Psych: Mood ok. Affect normal Neurological: Awake, alert, oriented. No gross abnormality - Constitutional Vitals: Vital Signs Temp Pulse Resp BP Pulse Ox 99 F 107 H 39 H 100/60 100 05/14/21 12:00 05/14/21 12:30 05/14/21 12:30 05/14/21 12:30 05/14/21 12:30 Temperature -Last 24 Hours Temperature 99 F Temperature 98 F Temperature 99.6 F Temperature 99.7 F Temperature 99.1 F Temperature 97.9 F Results - Labs CBC & Chem 7: 05/14/21 06:15 05/14/21 06:15 Labs: Abnormal lab results 05/14/21 05/14/21 05/14/21 Range/Units 06:15 06:15 10:25 WBC 11.7 H (4.5-11.0) K/mm3 RBC 3.41 L (3.65-5.03) M/mm3 MCV 98 H (79-97) fl RDW 18.6 H (13.2-15.2) % ABG pO2 76.0 L (80.0-90.0) mm Hg ABG HCO3 27.2 H (20.0-26.0) mmol/L ABG Hemoglobin 11.5 L (12.0-16.0) gm/dl Oxyhemoglobin 94.4 L (95.0-99.0) % Potassium 3.2 L (3.6-5.0) mmol/L BUN 6 L (7-17) mg/dL Creatinine 0.5 L (0.6-1.2) mg/dL Glucose 103 H (65-100) mg/dL Calcium 7.3 L (8.4-10.2) mg/dL Phosphorus 1.70 L (2.5-4.5) mg/dL AST 66 H (5-40) units/L Alkaline Phosphatase 295 H (35-129) units/L Total Protein 5.3 L (6.3-8.2) g/dL Albumin 1.8 L (3.9-5) g/dL - Imaging and Cardiology Chest x-ray: report reviewed, image reviewed Venous US: report reviewed (pulm fibrosis, PORT +) Assessment and Plan Cultures: 05/11/2021 blood culture: No growth A/P: 51-year-old female with pancreatic cancer status post chemo and radiation, not considered a candidate for surgery, COPD, pulmonary fibrosis, chronic respiratory failure requiring 2 L nasal oxygen was admitted with acute onset abdominal pain: #Septic shock: Likely cholangitis from biliary dilatation, has indwelling biliary stent #Elevated LFTs: GI following, planning MRCP. CT abdomen pelvis showed persistent pancreatic head carcinoma with indwelling metallic stent. #History of pancreatic cancer status post chemo and radiation, not a surgical candidate #Acute on chronic respiratory failure: Has underlying pulmonary fibrosis. Requiring BiPAP. Recs: -Cefepime, vancomycin discontinued -IV Zosyn ordered -agree with removal of femoral line Dave Doyle MD, [id number] [facility] O: [phone] F: [phone]
--- NOTE | 2021-05-14 14:30 | Vascular Lab Report ---
DUPLEX DOPPLER UPPER EXTREMITY VENOUS, RIGHT INDICATION / CLINICAL INFORMATION: swelling. TECHNIQUE: Duplex doppler imaging was performed through the veins of the right upper extremity using venous compression and other maneuvers. COMPARISON: None available. FINDINGS: RIGHT INTERNAL JUGULAR VEIN: Negative. RIGHT SUBCLAVIAN VEIN: Negative. RIGHT AXILLARY VEIN: Negative. RIGHT BRACHIAL VEIN: Negative. RIGHT FOREARM VEINS: Negative. RIGHT BASILIC VEIN (SUPERFICIAL): Negative. ADDITIONAL FINDINGS: None. IMPRESSION: 1. No sonographic evidence for DVT. Scribed by: Litzy Kirk RDMS, RVT Scribed: 05/14/2021 12:59 PM I have reviewed the images, agree with this report, and edited this report as needed. Signer Name: Bubba Moran MD Signed: 05/14/2021 2:26 PM Workstation Name: [id number]
[2021-05-14] MEDS: MORPHINE 2 MG/1 ML INJ IV PRN ×2 (14:34→19:53)
[2021-05-14] MEDS: PIPERACIL/TAZOBACTA 4.5/NS 100 4.5 GM/100 ML VIAL IV SCH ×2 (15:19→21:18)
[2021-05-14 16:00] LABS: Blood Urea Nitrogen 5 mg/dL (7-17); Calcium 7.6 mg/dL (8.4-10.2); Hemolysis Index 14
[2021-05-14 16:04] LABS: BUN/Creatinine Ratio 10
[2021-05-14] MEDS: CETIRIZINE 10 MG TAB PO SCH (18:16)
[2021-05-14] MEDS: MONTELUKAST 10 MG TAB PO SCH (18:16)
--- NOTE | 2021-05-14 20:12 | Progress Note ---
Assessment and Plan Septic shock possible hepatobiliary source Lactic acidosis h/o pulmonary fibrosis, Acute on chronic respiratory failure on home O2 of 2 L nasal cannula Transaminitis, biliary dilation, r/o cholangitis Hyperchloremia, metabolic acidosis, hypokalemia Hypoglycemia h/o pancreatic head cancer- chemoradiation therapy h/o Hypertension Worsening resp failure- CXR shows significant alveolar edema. Started on diuretics , Furosemide 20mg q8 for 3 doses Follow up BMP this evening. Replace electrolytes as clinically indicated Monitor hemodynamics and renal function while on Furosemide Get ABG and CXR in the morning Keep on BIPAP for the next 24 hours Titrate supplemental oxygen to keep SpO2 88-90% Discontinue Femoral CVL, and access port Hold off on MRCP today, she remains tenuous from a respiratory standpoint Keep NPO while on BIPAP -Continue to hold all anti-hypertensives -Continue to titrate supplemental oxygen to keep SpO2 88-90% -Bronchodilators -Antibiotics, continue Cefepime and Vancomycin -trend temperature curve and WCC, de-escalate antibiotics based on culture data and clinical improvement -VTE prophylaxis-Lovenox -Avoid nephrotoxins, adjust all medications for CrCL, GFR -Accuchecks with glycemic control. Avoid hypoglycemia -Supportive transfusions as clinically indicated to keep HgB >7g/dL -Mobility, off loading and frequent turning per facility protocol to prevent pressure ulcers -Pain management with bowel regimen CONDITION: CRITICAL PROGNOSIS: GUARDED CODE STATUS: FULL The high probability of a clinically significant, sudden or life threatening deterioration of the cardiovascular, hepatology, respiratory system(s) required my full and direct attention, intervention and personal management. The aggregat e critical care time was [45] minutes. This time is in addition to time spent performing reported procedures but includes the following: [x] Data Review and interpretation [x] Patient assessment and monitoring of vital signs [x] Documentation [x] Medication orders and management Subjective Date of service: 05/14/21 Principal diagnosis: abdominal pain, abnormal liver enzymes Interval history: Follow up for: acute on chronic resp failure; Sepsis; COPD, pancreatic cancer with radiation s/p pancreatic stent placement, pulmonary fibrosis, lactic acidosis. Seen and examined. Events overnight noted. She had ongoing desaturations requiring BIPAP support. Vitals, albs, medications, chart and imaging reviewed. Discussed with nursing and respiratory staff. She is off vasopressor support Objective Vital Signs - 12hr 1205/14/21 05/14/21 08:15 08:30 08:45 Temperature Pulse Rate 101 H 100 H 102 H Pulse Rate [ From Monitor] Respiratory 26 H 30 H 29 H Rate Blood Pressure 95/47 84/57 84/57 O2 Sat by Pulse 100 100 100 Oximetry 05/14/21 05/14/21 05/14/21 09:00 09:15 09:30 Temperature Pulse Rate 101 H 102 H 97 H Pulse Rate [ From Monitor] Respiratory 24 28 H 27 H Rate Blood Pressure 90/51 90/51 93/60 O2 Sat by Pulse 100 100 100 Oximetry 05/14/21 05/14/21 05/14/21 09:45 10:00 10:15 Temperature Pulse Rate 104 H 104 H 108 H Pulse Rate [ From Monitor] Respiratory 35 H 29 H 18 Rate Blood Pressure 93/60 83/41 105/60 O2 Sat by Pulse 100 100 100 Oximetry 05/14/21 05/14/21 05/14/21 10:30 10:45 11:00 Temperature Pulse Rate 108 H 103 H 106 H Pulse Rate [ From Monitor] Respiratory 43 H 34 H 31 H Rate Blood Pressure 108/64 108/64 92/54 O2 Sat by Pulse 99 100 100 Oximetry 05/14/21 05/14/21 05/14/21 11:15 11:30 11:45 Temperature Pulse Rate 102 H 104 H 104 H Pulse Rate [ From Monitor] Respiratory 27 H 41 H 40 H Rate Blood Pressure 92/54 107/59 107/59 O2 Sat by Pulse 100 100 100 Oximetry 05/14/21 05/14/21 05/14/21 12:00 12:01 12:15 Temperature 99 F Pulse Rate 118 H 101 H 113 H Pulse Rate [ 101 H From Monitor] Respiratory 35 H 36 H 30 H Rate Blood Pressure 100/60 107/59 97/51 O2 Sat by Pulse 97 100 100 Oximetry 05/14/21 05/14/21 05/14/21 12:30 12:45 13:00 Temperature Pulse Rate 107 H 126 H 103 H Pulse Rate [ From Monitor] Respiratory 39 H 40 H 34 H Rate Blood Pressure 100/60 100/60 99/55 O2 Sat by Pulse 100 61 L 100 Oximetry 05/14/21 05/14/21 05/14/21 13:15 13:30 13:45 Temperature Pulse Rate 100 H 101 H 104 H Pulse Rate [ From Monitor] Respiratory 28 H 28 H 33 H Rate Blood Pressure 99/55 98/46 98/46 O2 Sat by Pulse 100 100 100 Oximetry 05/14/21 05/14/21 05/14/21 14:00 14:15 14:30 Temperature Pulse Rate 115 H 123 H 118 H Pulse Rate [ From Monitor] Respiratory 45 H 47 H 35 H Rate Blood Pressure 119/75 119/75 114/71 O2 Sat by Pulse 98 97 96 Oximetry 05/14/21 05/14/21 05/14/21 14:34 14:45 15:00 Temperature Pulse Rate 113 H 114 H Pulse Rate [ From Monitor] Respiratory 48 H 36 H 35 H Rate Blood Pressure 114/71 106/62 O2 Sat by Pulse 99 100 Oximetry 05/14/21 05/14/21 05/14/21 15:15 15:30 15:45 Temperature Pulse Rate 113 H 113 H 106 H Pulse Rate [ From Monitor] Respiratory 36 H 35 H 27 H Rate Blood Pressure 106/62 109/66 109/66 O2 Sat by Pulse 99 98 100 Oximetry 05/14/21 05/14/21 05/14/21 16:00 16:15 16:30 Temperature Pulse Rate 107 H 104 H 106 H Pulse Rate [ 107 H From Monitor] Respiratory 27 H 26 H 28 H Rate Blood Pressure 95/47 95/47 99/58 O2 Sat by Pulse 100 100 100 Oximetry 05/14/21 05/14/21 05/14/21 16:45 17:00 17:15 Temperature Pulse Rate 106 H 103 H 104 H Pulse Rate [ From Monitor] Respiratory 34 H 26 H 27 H Rate Blood Pressure 99/58 90/59 90/59 O2 Sat by Pulse 98 100 100 Oximetry 05/14/21 05/14/21 05/14/21 17:31 17:45 18:00 Temperature Pulse Rate 115 H 109 H 111 H Pulse Rate [ From Monitor] Respiratory 35 H 31 H 31 H Rate Blood Pressure 105/60 105/60 105/53 O2 Sat by Pulse 96 98 100 Oximetry 05/14/21 05/14/21 05/14/21 18:15 18:30 18:45 Temperature Pulse Rate 110 H 109 H 110 H Pulse Rate [ From Monitor] Respiratory 26 H 27 H 26 H Rate Blood Pressure 105/53 92/51 92/51 O2 Sat by Pulse 100 100 100 Oximetry 05/14/21 05/14/21 05/14/21 19:00 19:15 19:30 Temperature Pulse Rate 111 H 111 H 118 H Pulse Rate [ From Monitor] Respiratory 27 H 27 H 43 H Rate Blood Pressure 87/57 87/57 97/67 O2 Sat by Pulse 100 99 97 Oximetry 05/14/21 05/14/21 05/14/21 19:45 19:53 20:00 Temperature Pulse Rate 126 H 125 H Pulse Rate [ From Monitor] Respiratory 42 H 36 H 37 H Rate Blood Pressure 97/67 103/70 O2 Sat by Pulse 98 98 Oximetry 05/14/21 20:01 Temperature Pulse Rate 142 H Pulse Rate [ From Monitor] Respiratory 24 Rate Blood Pressure 103/70 O2 Sat by Pulse 77 L Oximetry Constitutional: lethargic, other (mild respiratory distress, on BIPAP 15/10 FIO2 100%) Eyes: non-icteric ENT: oropharynx moist Neck: supple, no lymphadenopathy Effort: mildly labored Ascultation: Bilateral: diminished breath sounds, rales Cardiovascular: regular rate and rhythm, other (S1,S2) Gastrointestinal: normoactive bowel sounds, hypoactive bowel sounds Integumentary: normal Extremities: no cyanosis, no edema, other (right femoral CVL) Neurologic: normal mental status, non-focal exam, pupils equal and round Psychiatric: mood appropriate, affect normal CBC and BMP: 05/14/21 06:15 05/14/21 15:20 ABG, PT/INR, D-dimer: ABG ABG pH 7.387 pH Units (7.350-7.450) 05/14/21 10:25 ABG pCO2 46.3 mm Hg 05/14/21 10:25 ABG pO2 76.0 mm Hg (80.0-90.0) L 05/14/21 10:25 ABG O2 Saturation 96.2 % (95.0-99.0) 05/14/21 10:25 PT/INR, D-dimer PT 16.0 Sec. (12.2-14.9) H 05/11/21 05:43 INR 1.16 (0.87-1.13) H 05/11/21 05:43 Abnormal lab findings: Abnormal Labs 05/11/21 05/11/21 05/11/21 05:43 05:43 05:43 WBC RBC MCV 98 H RDW 17.7 H Lymph % (Auto) 10.8 L Lymph # (Auto) 0.6 L Seg Neutrophils % 84.1 H Seg Neuts % (Manual) Lymphocytes % (Manual) Seg Neutrophils # Man Lymphocytes # (Manual) PT 16.0 H INR 1.16 H ABG pO2 ABG HCO3 ABG Hemoglobin Oxyhemoglobin Sodium Potassium Chloride Carbon Dioxide 21 L BUN 4 L Creatinine 0.4 L Glucose POC Glucose Lactic Acid Calcium 8.3 L Phosphorus Magnesium Total Bilirubin 2.10 H Direct Bilirubin 1.4 H AST 335 H ALT 57 H Alkaline Phosphatase 339 H Total Protein Albumin 2.4 L Lipase 3 L Ur Specific [place] Vancomycin Trough 05/11/21 05/11/21 05/12/21 11:18 12:28 04:08 WBC RBC MCV RDW Lymph % (Auto) Lymph # (Auto) Seg Neutrophils % Seg Neuts % (Manual) Lymphocytes % (Manual) Seg Neutrophils # Man Lymphocytes # (Manual) PT INR ABG pO2 ABG HCO3 ABG Hemoglobin Oxyhemoglobin Sodium Potassium Chloride Carbon Dioxide BUN Creatinine Glucose POC Glucose Lactic Acid 4.20 H* 4.50 H* Calcium Phosphorus Magnesium Total Bilirubin Direct Bilirubin AST ALT Alkaline Phosphatase Total Protein Albumin Lipase Ur Specific [place] 1.035 H Vancomycin Trough 05/12/21 05/12/21 05/12/21 04:08 04:08 09:47 WBC 22.8 H RBC 3.39 L MCV 98 H RDW 17.7 H Lymph % (Auto) Lymph # (Auto) Seg Neutrophils % Seg Neuts % (Manual) 85.5 H Lymphocytes % (Manual) 2.0 L Seg Neutrophils # Man 19.5 H Lymphocytes # (Manual) 0.5 L PT INR ABG pO2 ABG HCO3 ABG Hemoglobin Oxyhemoglobin Sodium Potassium 3.3 L Chloride 108.9 H Carbon Dioxide 17 L BUN 4 L Creatinine 0.5 L Glucose 106 H POC Glucose Lactic Acid 2.60 H* Calcium 6.4 L D Phosphorus Magnesium Total Bilirubin 2.10 H Direct Bilirubin AST 156 H ALT 61 H Alkaline Phosphatase 317 H Total Protein 5.4 L D Albumin 1.8 L Lipase Ur Specific [place] Vancomycin Trough 05/12/21 05/12/21 05/12/21 11:47 12:30 12:36 WBC RBC MCV RDW Lymph % (Auto) Lymph # (Auto) Seg Neutrophils % Seg Neuts % (Manual) Lymphocytes % (Manual) Seg Neutrophils # Man Lymphocytes # (Manual) PT INR ABG pO2 ABG HCO3 ABG Hemoglobin Oxyhemoglobin Sodium Potassium Chloride Carbon Dioxide BUN Creatinine Glucose POC Glucose 59 L 120 H Lactic Acid 2.50 H* Calcium Phosphorus Magnesium Total Bilirubin Direct Bilirubin AST ALT Alkaline Phosphatase Total Protein Albumin Lipase Ur Specific [place] Vancomycin Trough 05/12/21 05/12/21 05/13/21 23:45 Unknown 04:00 WBC 19.8 H RBC 3.52 L MCV 98 H RDW 18.5 H Lymph % (Auto) Lymph # (Auto) Seg Neutrophils % Seg Neuts % (Manual) Lymphocytes % (Manual) Seg Neutrophils # Man Lymphocytes # (Manual) PT INR ABG pO2 ABG HCO3 ABG Hemoglobin Oxyhemoglobin Sodium Potassium Chloride Carbon Dioxide BUN Creatinine Glucose POC Glucose 119 H Lactic Acid 3.30 H* Calcium Phosphorus Magnesium Total Bilirubin Direct Bilirubin AST ALT Alkaline Phosphatase Total Protein Albumin Lipase Ur Specific [place] Vancomycin Trough 05/13/21 05/13/21 05/13/21 04:00 05:42 12:19 WBC RBC MCV RDW Lymph % (Auto) Lymph # (Auto) Seg Neutrophils % Seg Neuts % (Manual) Lymphocytes % (Manual) Seg Neutrophils # Man Lymphocytes # (Manual) PT INR ABG pO2 ABG HCO3 ABG Hemoglobin Oxyhemoglobin Sodium Potassium 3.4 L Chloride 107.1 H Carbon Dioxide 19 L BUN 4 L Creatinine 0.4 L Glucose 157 H POC Glucose 143 H 110 H Lactic Acid Calcium 7.4 L D Phosphorus 1.60 L Magnesium 1.50 L Total Bilirubin 1.40 H Direct Bilirubin AST 95 H ALT Alkaline Phosphatase 328 H Total Protein 5.5 L Albumin 1.6 L Lipase Ur Specific [place] Vancomycin Trough 05/14/21 05/14/21 05/14/21 06:15 06:15 10:25 WBC 11.7 H RBC 3.41 L MCV 98 H RDW 18.6 H Lymph % (Auto) Lymph # (Auto) Seg Neutrophils % Seg Neuts % (Manual) Lymphocytes % (Manual) Seg Neutrophils # Man Lymphocytes # (Manual) PT INR ABG pO2 76.0 L ABG HCO3 27.2 H ABG Hemoglobin 11.5 L Oxyhemoglobin 94.4 L Sodium Potassium 3.2 L Chloride Carbon Dioxide BUN 6 L Creatinine 0.5 L Glucose 103 H POC Glucose Lactic Acid Calcium 7.3 L Phosphorus 1.70 L Magnesium Total Bilirubin Direct Bilirubin AST 66 H ALT Alkaline Phosphatase 295 H Total Protein 5.3 L Albumin 1.8 L Lipase Ur Specific [place] Vancomycin Trough 05/14/21 05/14/21 05/14/21 15:20 15:20 17:26 WBC RBC MCV RDW Lymph % (Auto) Lymph # (Auto) Seg Neutrophils % Seg Neuts % (Manual) Lymphocytes % (Manual) Seg Neutrophils # Man Lymphocytes # (Manual) PT INR ABG pO2 ABG HCO3 ABG Hemoglobin Oxyhemoglobin Sodium 146 H D Potassium Chloride 108.4 H Carbon Dioxide BUN 5 L Creatinine 0.5 L Glucose POC Glucose 63 L Lactic Acid Calcium 7.6 L Phosphorus Magnesium Total Bilirubin Direct Bilirubin AST ALT Alkaline Phosphatase Total Protein Albumin Lipase Ur Specific [place] Vancomycin Trough 25.3 H Chest x-ray: image reviewed (Bilateral alveolar infiltrates, alveolar edema)
[2021-05-14] MEDS: ENOXAPARIN 40 MG/0.4 ML INJ SUB-Q SCH (21:23)
[2021-05-14] MEDS: DEXTROSE 50% IN WATER (25GM) 50 ML SYRINGE IV PRN (21:37)
[2021-05-15] MEDS: DEXTROSE 50% IN WATER (25GM) 50 ML SYRINGE IV PRN ×2 (00:05→13:33)
[2021-05-15] MEDS: MORPHINE 2 MG/1 ML INJ IV PRN ×4 (00:35→23:59)
[2021-05-15] MEDS: PIPERACIL/TAZOBACTA 4.5/NS 100 4.5 GM/100 ML VIAL IV SCH ×2 (02:21→09:37)
[2021-05-15] MEDS: D5W/0.9% NACL 1,000 ML IV SCH (02:21)
[2021-05-15] MEDS: NORepinephrine/NS 8 MG-250 ML 8 MG/250 ML INFUS..BTL IV SCH (04:43)
[2021-05-15] MEDS: FUROSEMIDE 20 MG/2 ML INJ IV SCH (05:03)
[2021-05-15 05:16] LABS: Basophils # (Auto) 0.1 K/mm3 (0.0-0.1); Basophils % (Auto) 0.7 % (0.0-1.8); Eosinophils # (Auto) 0.3 K/mm3 (0.0-0.4); Hematocrit 31.8 % (30.3-42.9); Hemoglobin 10.2 gm/dl (10.1-14.3); Lymphocytes # (Auto) 0.6 K/mm3 (1.2-5.4); Lymphocytes % (Auto) 7.4 % (13.4-35.0); Mean Corpuscular HGB Conc 32 % (30-34); Mean Corpuscular Volume 98 fl (79-97); Monocytes # (Auto) 0.6 K/mm3 (0.0-0.8); Monocytes % (Auto) 6.7 % (0.0-7.3); Platelet Count 122 K/mm3 (140-440); Red Blood Count 3.24 M/mm3 (3.65-5.03); Red Cell Distribution Width 18.5 % (13.2-15.2)
[2021-05-15 05:41] LABS: Alanine Aminotransferase 28 units/L (7-56); Albumin 1.5 g/dL (3.9-5); Blood Urea Nitrogen 6 mg/dL (7-17); Calcium 7.5 mg/dL (8.4-10.2); Hemolysis Index 11
[2021-05-15 05:42] LABS: BUN/Creatinine Ratio 10
--- NOTE | 2021-05-15 07:04 | XRay Report ---
CHEST 1 VIEW 05/15/2021 5:22 AM INDICATION / CLINICAL INFORMATION: Hypoxia. COMPARISON: One view of the chest from 05/13/2021. FINDINGS: SUPPORT DEVICES: Unchanged right internal jugular vein Port-A-Cath. HEART / MEDIASTINUM: Stable. LUNGS / PLEURA: Generalized bilateral airspace opacities have worsened. No large pleural effusion. No pneumothorax. ADDITIONAL FINDINGS: No significant additional findings. IMPRESSION: 1. Interval worsening of bilateral airspace opacities without other significant interval changes. Signer Name: Celio Tim MD Signed: 05/15/2021 7:00 AM Workstation Name: [id number]
[2021-05-15] MEDS: BUDESONIDE 0.5 MG/2 ML NEBU IH SCH ×2 (08:00→22:06)
[2021-05-15] MEDS: ARFORMOTEROL 15 MCG/2 ML NEBU IH SCH ×2 (08:00→22:06)
[2021-05-15] MEDS ORDERED: DEXTROSE 5% IN WATER 1,000 ML IV SCH (09:15)
[2021-05-15] MEDS: PANTOPRAZOLE 40 MG INJ IV SCH (09:37)
[2021-05-15] MEDS: ONDANSETRON 4 MG/2 ML INJ IV PRN (09:57)
[2021-05-15] MEDS: CETIRIZINE 10 MG TAB PO SCH (10:14)
[2021-05-15] MEDS: CHOLECALCIFEROL (VIT D3) 5,000 UNIT TAB PO SCH (10:14)
[2021-05-15] MEDS: POTASSIUM CHLORIDE 20 MEQ 20 MEQ/100 ML BAG IV SCH ×2 (10:21→11:32)
--- NOTE | 2021-05-15 11:41 | Progress Note ---
Assessment and Plan Septic shock possible hepatobiliary source Lactic acidosis h/o pulmonary fibrosis, Acute on chronic respiratory failure on home O2 of 2 L nasal cannula Transaminitis, biliary dilation, r/o cholangitis Hyperchloremia, metabolic acidosis, hypokalemia Hypoglycemia h/o pancreatic head cancer- chemoradiation therapy h/o Hypertension - Potassium replaced - will allow RN administered and witnessed ice chips as still on continuous BIPAP - wean Levophed for target MAP > 65 mmHg - refusing port-a-cath access; unable to place PICC line; will continue Femoral CVL X 24 hours and re-assess - MRCP pending as she remains tenuous from a respiratory standpoint - continue anti-infective's; de-escalate per ID recommendations - continue accuchecks with glycemic control per SSI (While critically ill target blood glucose of 140-180 mg/dL; avoid hypoglycemia) - continue to wean supplemental oxygen for target O2 sat's > 90% acutely - aspiration precautions - bronchodilators with pulmonary hygiene per RT - avoid nephrotoxins, renally dose all medications - prn analgesia per pain score - Maintenance of sleep-wake cycle, avoid delirium - G.I. & VTE prophylaxis - PT/OT/ROM exercises - mobility protocols for pressure ulcer prophylaxis - Monitor hemodynamics closely - continue other care per attending / other consultants - discharge planning ongoing concurrently .... Re-evaluate in am & prn CONDITION: CRITICAL PROGNOSIS: GUARDED CODE STATUS: FULL CODE The high probability of a clinically significant, sudden or life-threatening deterioration of the [respiratory, cardiovascular, GI & neurologic] system(s) required my full and direct attention, intervention and personal management. The aggregate critical care time was [33] minutes without overlap. Time includes spent on; [x] Data Review and interpretation [x] Patient assessment and monitoring of vital signs [x] Documentation [x] Medication orders and managemen Subjective Date of service: 05/15/21 Principal diagnosis: Septic shock; Pulm fibrosis; Hypoxemic resp failure; h/o pancreatic cancer Interval history: Patient is seen today for: Septic shock; pulmonary fibrosis; Acute on chronic hypoxemic respiratory failure; Transaminitis; h/o pancreatic head cancer; HTN Seen and examined at bedside; 24hour events reviewed; nursing and respiratory care staff consulted; no adverse overnight events reported to me; resting in bed; feels a little better but remains BIPAP dependent; also on Levophed @ 4 masha's/min; thirsty; denies acute chest pains / N/V; febrile to 101F today Objective Vital Signs - 12hr 05/14/21 05/14/21 05/15/21 23:42 23:45 00:00 Temperature 100.1 F H Pulse Rate 106 H 106 H Pulse Rate [ 104 H From Monitor] Respiratory 25 H 25 H Rate Blood Pressure 94/58 94/56 O2 Sat by Pulse 98 Oximetry 05/15/21 05/15/21 05/15/21 00:15 00:30 00:45 Temperature Pulse Rate 104 H 115 H 111 H Pulse Rate [ From Monitor] Respiratory 26 H 45 H 25 H Rate Blood Pressure 94/56 108/65 108/65 O2 Sat by Pulse 96 97 Oximetry 05/15/21 05/15/21 05/15/21 01:00 01:15 01:30 Temperature Pulse Rate 108 H 107 H 108 H Pulse Rate [ From Monitor] Respiratory 22 21 18 Rate Blood Pressure 82/55 82/55 95/62 O2 Sat by Pulse 98 98 98 Oximetry 05/15/21 05/15/21 05/15/21 01:45 02:00 02:15 Temperature Pulse Rate 106 H 103 H 105 H Pulse Rate [ From Monitor] Respiratory 24 21 21 Rate Blood Pressure 95/62 94/52 94/52 O2 Sat by Pulse 99 100 100 Oximetry 05/15/21 05/15/21 05/15/21 02:30 02:45 03:00 Temperature Pulse Rate 106 H 104 H 108 H Pulse Rate [ From Monitor] Respiratory 18 21 29 H Rate Blood Pressure 84/55 84/55 84/55 O2 Sat by Pulse 100 99 97 Oximetry 05/15/21 05/15/21 05/15/21 03:15 03:30 03:42 Temperature Pulse Rate 105 H 104 H 123 H Pulse Rate [ From Monitor] Respiratory 23 22 30 H Rate Blood Pressure 88/50 88/52 103/73 O2 Sat by Pulse 97 97 97 Oximetry 05/15/21 05/15/21 05/15/21 03:45 04:00 04:15 Temperature 99.6 F Pulse Rate 104 H 103 H 105 H Pulse Rate [ 104 H From Monitor] Respiratory 21 25 H 27 H Rate Blood Pressure 88/52 90/53 90/53 O2 Sat by Pulse 98 98 97 Oximetry 05/15/21 05/15/2105/15/21 04:30 04:45 05:00 Temperature Pulse Rate 104 H 104 H 119 H Pulse Rate [ From Monitor] Respiratory 25 H 25 H 35 H Rate Blood Pressure 95/50 95/50 104/71 O2 Sat by Pulse 99 100 Oximetry 05/15/21 05/15/21 05/15/21 05:15 05:30 05:45 Temperature Pulse Rate 113 H 107 H 122 H Pulse Rate [ From Monitor] Respiratory 29 H 26 H 47 H Rate Blood Pressure 104/71 98/67 98/67 O2 Sat by Pulse 80 L 98 83 L Oximetry 05/15/21 06:00 Temperature Pulse Rate 120 H Pulse Rate [ From Monitor] Respiratory 36 H Rate Blood Pressure 98/68 O2 Sat by Pulse 95 Oximetry Constitutional: no acute distress, alert, appears uncomfortable, other (mildly increased respiratory effort at rest on BIPAP 15/10 FIO2 100%) Eyes: non-icteric ENT: oropharynx moist Neck: supple, no lymphadenopathy, no JVD Effort: mildly labored Ascultation: Bilateral: diminished breath sounds, rales Percussion: Bilateral: not dull Cardiovascular: regular rate and rhythm, other (S1,S2) Gastrointestinal: normoactive bowel sounds, hypoactive bowel sounds, soft, non- distended (protuberant) Integumentary: normal Extremities: no cyanosis, no edema, pulses normal, other (right femoral CVL) Neurologic: normal mental status, non-focal exam, pupils equal and round Psychiatric: mood appropriate, affect normal CBC and BMP: 05/15/21 04:45 05/15/21 04:45 ABG, PT/INR, D-dimer: ABG ABG pH 7.387 pH Units (7.350-7.450) 05/14/21 10:25 ABG pCO2 46.3 mm Hg 05/14/21 10:25 ABG pO2 76.0 mm Hg (80.0-90.0) L 05/14/21 10:25 ABG O2 Saturation 96.2 % (95.0-99.0) 05/14/21 10:25 PT/INR, D-dimer PT 16.0 Sec. (12.2-14.9) H 05/11/21 05:43 INR 1.16 (0.87-1.13) H 05/11/21 05:43 Abnormal lab findings: Abnormal Labs 05/11/21 05/11/21 05/11/21 05:43 05:43 05:43 WBC RBC MCV 98 H RDW 17.7 H Plt Count Lymph % (Auto) 10.8 L Lymph # (Auto) 0.6 L Seg Neutrophils % 84.1 H Seg Neuts % (Manual) Lymphocytes % (Manual) Seg Neutrophils # Man Lymphocytes # (Manual) PT 16.0 H INR 1.16 H ABG pO2 ABG HCO3 ABG Hemoglobin Oxyhemoglobin Sodium Potassium Chloride Carbon Dioxide 21 L BUN 4 L Creatinine 0.4 L Glucose POC Glucose Lactic Acid Calcium 8.3 L Phosphorus Magnesium Total Bilirubin 2.10 H Direct Bilirubin 1.4 H AST 335 H ALT 57 H Alkaline Phosphatase 339 H Total Protein Albumin 2.4 L Lipase 3 L Ur Specific [place] Vancomycin Trough 05/11/21 05/11/21 05/12/21 11:18 12:28 04:08 WBC RBC MCV RDW Plt Count Lymph % (Auto) Lymph # (Auto) Seg Neutrophils % Seg Neuts % (Manual) Lymphocytes % (Manual) Seg Neutrophils # Man Lymphocytes # (Manual) PT INR ABG pO2 ABG HCO3 ABG Hemoglobin Oxyhemoglobin Sodium Potassium Chloride Carbon Dioxide BUN Creatinine Glucose POC Glucose Lactic Acid 4.20 H* 4.50 H* Calcium Phosphorus Magnesium Total Bilirubin Direct Bilirubin AST ALT Alkaline Phosphatase Total Protein Albumin Lipase Ur Specific [place] 1.035 H Vancomycin Trough 05/12/21 05/12/21 05/12/21 04:08 04:08 09:47 WBC 22.8 H RBC 3.39 L MCV 98 H RDW 17.7 H Plt Count Lymph % (Auto) Lymph # (Auto) Seg Neutrophils % Seg Neuts % (Manual) 85.5 H Lymphocytes % (Manual) 2.0 L Seg Neutrophils # Man 19.5 H Lymphocytes # (Manual) 0.5 L PT INR ABG pO2 ABG HCO3 ABG Hemoglobin Oxyhemoglobin Sodium Potassium 3.3 L Chloride 108.9 H Carbon Dioxide 17 L BUN 4 L Creatinine 0.5 L Glucose 106 H POC Glucose Lactic Acid 2.60 H* Calcium 6.4 L D Phosphorus Magnesium Total Bilirubin 2.10 H Direct Bilirubin AST 156 H ALT 61 H Alkaline Phosphatase 317 H Total Protein 5.4 L D Albumin 1.8 L Lipase Ur Specific [place] Vancomycin Trough 05/12/21 05/12/2121 11:47 12:30 12:36 WBC RBC MCV RDW Plt Count Lymph % (Auto) Lymph # (Auto) Seg Neutrophils % Seg Neuts % (Manual) Lymphocytes % (Manual) Seg Neutrophils # Man Lymphocytes # (Manual) PT INR ABG pO2 ABG HCO3 ABG Hemoglobin Oxyhemoglobin Sodium Potassium Chloride Carbon Dioxide BUN Creatinine Glucose POC Glucose 59 L 120 H Lactic Acid 2.50 H* Calcium Phosphorus Magnesium Total Bilirubin Direct Bilirubin AST ALT Alkaline Phosphatase Total Protein Albumin Lipase Ur Specific [place] Vancomycin Trough 05/12/21 05/12/21 05/13/21 23:45 Unknown 04:00 WBC 19.8 H RBC 3.52 L MCV 98 H RDW 18.5 H Plt Count Lymph % (Auto) Lymph # (Auto) Seg Neutrophils % Seg Neuts % (Manual) Lymphocytes % (Manual) Seg Neutrophils # Man Lymphocytes # (Manual) PT INR ABG pO2 ABG HCO3 ABG Hemoglobin Oxyhemoglobin Sodium Potassium Chloride Carbon Dioxide BUN Creatinine Glucose POC Glucose 119 H Lactic Acid 3.30 H* Calcium Phosphorus Magnesium Total Bilirubin Direct Bilirubin AST ALT Alkaline Phosphatase Total Protein Albumin Lipase Ur Specific [place] Vancomycin Trough 05/13/21 05/13/21 05/13/21 04:00 05:42 12:19 WBC RBC MCV RDW Plt Count Lymph % (Auto) Lymph # (Auto) Seg Neutrophils % Seg Neuts % (Manual) Lymphocytes % (Manual) Seg Neutrophils # Man Lymphocytes # (Manual) PT INR ABG pO2 ABG HCO3 ABG Hemoglobin Oxyhemoglobin Sodium Potassium 3.4 L Chloride 107.1 H Carbon Dioxide 19 L BUN 4 L Creatinine 0.4 L Glucose 157 H POC Glucose 143 H 110 H Lactic Acid Calcium 7.4 L D Phosphorus 1.60 L Magnesium 1.50 L Total Bilirubin 1.40 H Direct Bilirubin AST 95 H ALT Alkaline Phosphatase 328 H Total Protein 5.5 L Albumin 1.6 L Lipase Ur Specific [place] Vancomycin Trough 05/14/21 05/14/21 05/14/21 06:15 06:15 10:25 WBC 11.7 H RBC 3.41 L MCV 98 H RDW 18.6 H Plt Count Lymph % (Auto) Lymph # (Auto) Seg Neutrophils % Seg Neuts % (Manual) Lymphocytes % (Manual) Seg Neutrophils # Man Lymphocytes # (Manual) PT INR ABG pO2 76.0 L ABG HCO3 27.2 H ABG Hemoglobin 11.5 L Oxyhemoglobin 94.4 L Sodium Potassium 3.2 L Chloride Carbon Dioxide BUN 6 L Creatinine 0.5 L Glucose 103 H POC Glucose Lactic Acid Calcium 7.3 L Phosphorus 1.70 L Magnesium Total Bilirubin Direct Bilirubin AST 66 H ALT Alkaline Phosphatase 295 H Total Protein 5.3 L Albumin 1.8 L Lipase Ur Specific [place] Vancomycin Trough 05/14/21 05/14/21 05/14/21 15:20 15:20 17:26 WBC RBC MCV RDW Plt Count Lymph % (Auto) Lymph # (Auto) Seg Neutrophils % Seg Neuts % (Manual) Lymphocytes % (Manual) Seg Neutrophils # Man Lymphocytes # (Manual) PT INR ABG pO2 ABG HCO3 ABG Hemoglobin Oxyhemoglobin Sodium 146 H D Potassium Chloride 108.4 H Carbon Dioxide BUN 5 L Creatinine 0.5 L Glucose POC Glucose 63 L Lactic Acid Calcium 7.6 L Phosphorus Magnesium Total Bilirubin Direct Bilirubin AST ALT Alkaline Phosphatase Total Protein Albumin Lipase Ur Specific [place] Vancomycin Trough 25.3 H 05/14/21 05/15/21 05/15/21 21:27 00:03 00:29 WBC RBC MCV RDW Plt Count Lymph % (Auto) Lymph # (Auto) Seg Neutrophils % Seg Neuts % (Manual) Lymphocytes % (Manual) Seg Neutrophils # Man Lymphocytes # (Manual) PT INR ABG pO2 ABG HCO3 ABG Hemoglobin Oxyhemoglobin Sodium Potassium Chloride Carbon Dioxide BUN Creatinine Glucose POC Glucose 52 L 54 L 129 H Lactic Acid Calcium Phosphorus Magnesium Total Bilirubin Direct Bilirubin AST ALT Alkaline Phosphatase Total Protein Albumin Lipase Ur Specific [place] Vancomycin Trough 05/15/21 05/15/21 04:45 04:45 WBC RBC 3.24 L MCV 98 H RDW 18.5 H Plt Count 122 L Lymph % (Auto) 7.4 L Lymph # (Auto) 0.6 L Seg Neutrophils % 81.2 H Seg Neuts % (Manual) Lymphocytes % (Manual) Seg Neutrophils # Man Lymphocytes # (Manual) PT INR ABG pO2 ABG HCO3 ABG Hemoglobin Oxyhemoglobin Sodium 146 H Potassium 3.1 L Chloride 108.8 H Carbon Dioxide BUN 6 L Creatinine Glucose 121 H POC Glucose Lactic Acid Calcium 7.5 L Phosphorus 2.30 L D Magnesium Total Bilirubin 1.90 H Direct Bilirubin AST 55 H ALT Alkaline Phosphatase 231 H Total Protein 5.4 L Albumin 1.5 L Lipase Ur Specific [place] Vancomycin Trough Chest x-ray: image reviewed (persistent bilateral pulmonary infiltrates; port-a-cath in place) Allied health notes reviewed: nursing
[2021-05-15] MEDS ORDERED: POTASSIUM PHOSPHATE 30 MMOL in SODIUM CHLORIDE 0.9% 500 ML 500 ML IV SCH (12:00)
--- NOTE | 2021-05-15 13:34 | Progress Note ---
Assessment and Plan Assessment and plan: This is a 48-year-old female with past medical history of COPD, pancreatic cancer with radiation s/p pancreatic stent placement, pulmonary fibrosis, chronic respiratory failure on 2 L NC at home admitted with sepsis, transaminitis and lactic acidosis. Hospital Course to Date: 05/12: Patient remains on high-dose Levophed and vasopressin. Given 1 L LR bolus. GI would like an MRCP to be conducted which has been ordered. Patient cleared for sips of water. Added Tessalon due to severe cough. Potassium repleted. Covid PCR negative. 05/13: Remains on Levophed and vasopressin has been off since yesterday evening. Started on stress dose steroids. MRCP pending. Hypokalemia, hypomagnesemia and hypophosphatemia repleted. Liver enzymes trending down. Started on D5 nor mal saline yesterday. 05/14: Patient with worsen respiratory status this am, tachypneic with increased O2 requirement. On full support on the Bipap this am with worsening diffuse bilateral opacities on CXR, s/p X1 dose of IV lasix overnight. Patient remains afebrile with no leukocytosis. Will continue IV Lasix X3 doses, f/u CXR in the am. D/W CCM due to patient worsening respiratory status hold on MRCP for today. Patient is off Levophed this am, leave pressors on standby might need to be put back on low dose pressors with IV diuretic. Patient also noted with Rt. fem CVC which was inserted in the ED, most likely due to be change, unsuccessfult PICC by IVT today and patient is refusing Port access at this time. 05/15: Patient remains on continuous Bipap overnight, desat when bipap is remov ed for mouth care. Plan to wean Fio2 as tolerated for SPO2 goal above 90%. Febrile overnight, TMAX 101.4, on IV abx zosyn, repeat blood culture ordered. Low K and phosph repleted, repeat labs in the am. Assessment and Plan #Neuro: NAD -Avoid delirium -Reorientation as needed -Maintain sleep-wake cycle #CV: Hypotension #h/o HTN -Off pressors this am -Schedule IV Lasix -Back Levophed gtt, s/p X1 day of IV diuretic -Hold home htn medications -BP monitoring per protocol for MAP 65 and above -CCM consulted, appreciate recommendations #Respiratory: Acute on chronic respiratory failure #h/o pulmonary fibrosis #O2 Dependent at home -With worsen respiratory status this am, RR in the high 30s -12/20 Desated overnight, SPO2 in low 60 -Still on full support on Bipap- 100%, 15/10 -Repeat CXR this with no sig. change, diffuse bilateral opacities -S/p X1 day of IV Lasix -Check ABG PRN -Plan to wean Fio2 as tolerated -Continue Supplemental oxygen and SPO2 monitoring for SPO2 goal above 90% -Repeat CXR per CCM -Tessalon Perles as needed for cough -Pulmonary hygiene -CCM is following #GI: Transaminitis #H/o Pancreatic CA s/p stent placement #Biliary dilation #R/o cholangitis #Nausea/Vomiting- Resolved -CT abdomen/pelvis showed pancreatic cancer with metallic stent with possible o cclusion, mild pelvic fluid and mild colonic thickening -GI consulted, patient recommendations -MRCP pending, If stent occlusion/biliary obstruction would recommend IR consult for PTC drain per GI -Keep patient NPO,Okay for sips of water -Continue PPI -BR to start once taking p.o. -Acute hepatitis panel negative -PRN antiemetic for N/V #:Hypokalemia, hypophosphatemia, hypomagnesemia -Electrolytes repleted -Continue to monitor and replete electrolytes as needed -Strict intake and output -Purewick in place, over 2.6L UOP, still even since admit -Keep patient at a net negatibe balance -Daily weights -Renally dose meds, avoid nephrotoxins -Repeat Labs ordered #ID: Sepsis #Leukopcytosis #Lactic acidosis -Presented with elevated WBCs, hypotensive, and with lactic acidosis -COVID swab negative -Blood cultures x2 no growth to date -Leukocytosis downtrending, 8.3 this am -Febrile overnight, repeat blood culture ordered -Continue IV Antibiotic therap -Monitor WBC and fever curve -ID consult if needed #Heme/ONC: h/o Pancreatic Cancer #s/p pancreatic stent placement -Currently on radiation -F/U with outpatient with own oncologist -possible stent occlusion, MRCP pending -Not a surgical candidate per GI -Right chest post not accessed, patient refused -RUE swelling- RUE doppler ordered -Continue AC-Lovenox and SCD to bilateral lower extremities while in bed #Endo: Hypoglycemia -Continue SSI Q6hrs -IVF on hold due to worsening pulmo edema -Continue Hypoglycemia protocol -Avoid hypoglycemia The high probability of a clinically significant, sudden or life threatening deterioration of the [Multiple] system(s) required my full and direct attention, intervention and personal management. The aggregate critical care time was [60] minutes. This time is in addition to time spent performing reported procedures but includes the following: [x] Data Review and interpretation [x] Patient assessment and monitoring of vital signs [x] Documentation [x] Medication orders and management Disposition Plan: ICU Total Time Spent with Patient (Minutes): 60 History Interval history: Patient seen and examined at the bedside. Patient is awake and alert, tachypneic, remains on continuous Bipap this am. patient remains on low dose Levophed. STEPHEN overnight Hospitalist Physical - Constitutional Vitals: Temp Pulse Resp BP Pulse Ox 98.2 F 115 H 24 117/47 97 05/15/21 12:00 05/15/21 13:00 05/15/21 13:00 05/15/21 13:00 05/15/21 13:00 General appearance: Present: mild distress, obese - EENT Eyes: Present: PERRL, EOM intact ENT: hearing intact - Neck Neck: Present: normal ROM - Respiratory Respiratory effort: labored Respiratory: bilateral: diminished - Cardiovascular Rhythm: regular Heart Sounds: Present: S1 & S2 - Extremities Extremities: no ischemia, pulses intact, pulses symmetrical Extremity abnormal: edema - Peripheral Assessment Generalized Edema Type: Non-pitting Edema Degree: 2+ Capillary Refill: < 3 seconds Skin Temperature: Warm Peripheral Pulses: within normal limits - Abdominal General gastrointestinal: soft, non-tender, normal bowel sounds - Integumentary Integumentary: Present: warm, dry - Psychiatric Psychiatric: cooperative, depressed - Neurologic Neurologic: moves all extremities - Allied Health Allied health notes reviewed: nursing Results - Labs CBC & Chem 7: 05/16/21 04:31 05/16/21 04:31 Labs: Laboratory Last Values WBC 8.3 K/mm3 (4.5-11.0) 05/15/21 04:45 RBC 3.24 M/mm3 (3.65-5.03) L 05/15/21 04:45 Hgb 10.2 gm/dl (10.1-14.3) 05/15/21 04:45 Hct 31.8 % (30.3-42.9) 05/15/21 04:45 MCV 98 fl (79-97) H 05/15/21 04:45 MCH 32 pg (28-32) 05/15/21 04:45 MCHC 32 % (30-34) 05/15/21 04:45 RDW 18.5 % (13.2-15.2) H 05/15/21 04:45 Plt Count 122 K/mm3 (140-440) L 05/15/21 04:45 Lymph % (Auto) 7.4 % (13.4-35.0) L 05/15/21 04:45 Mayes % (Auto) 6.7 % (0.0-7.3) 05/15/21 04:45 Eos % (Auto) 4.0 % (0.0-4.3) 05/15/21 04:45 Baso % (Auto) 0.7 % (0.0-1.8) 05/15/21 04:45 Lymph # (Auto) 0.6 K/mm3 (1.2-5.4) L 05/15/21 04:45 Mayes # (Auto) 0.6 K/mm3 (0.0-0.8) 05/15/21 04:45 Eos # (Auto) 0.3 K/mm3 (0.0-0.4) 05/15/21 04:45 Baso # (Auto) 0.1 K/mm3 (0.0-0.1) 05/15/21 04:45 Add Manual Diff Complete 05/12/21 04:08 Total Counted 200 05/12/21 04:08 Seg Neutrophils % 81.2 % (40.0-70.0) H 05/15/21 04:45 Seg Neuts % (Manual) 85.5 % (40.0-70.0) H 05/12/21 04:08 Band Neutrophils % 8.5 % 05/12/21 04:08 Lymphocytes % (Manual) 2.0 % (13.4-35.0) L 05/12/21 04:08 Monocytes % (Manual) 3.0 % (0.0-7.3) 05/12/21 04:08 Eosinophils % (Manual) 1.0 % (0.0-4.3) 05/12/21 04:08 Nucleated RBC % Not Reportable 05/12/21 04:08 Seg Neutrophils # 6.7 K/mm3 (1.8-7.7) 05/15/21 04:45 Seg Neutrophils # Man 19.5 K/mm3 (1.8-7.7) H 05/12/21 04:08 Band Neutrophils # 1.9 K/mm3 05/12/21 04:08 Lymphocytes # (Manual) 0.5 K/mm3 (1.2-5.4) L 05/12/21 04:08 Abs React Lymphs (Man) 0.0 K/mm3 05/12/21 04:08 Monocytes # (Manual) 0.7 K/mm3 (0.0-0.8) 05/12/21 04:08 Eosinophils # (Manual) 0.2 K/mm3 (0.0-0.4) 05/12/21 04:08 Basophils # (Manual) 0.0 K/mm3 (0.0-0.1) 05/12/21 04:08 Metamyelocytes # 0.0 K/mm3 05/12/21 04:08 Myelocytes # 0.0 K/mm3 05/12/21 04:08 Promyelocytes # 0.0 K/mm3 05/12/21 04:08 Blast Cells # 0.0 K/mm3 05/12/21 04:08 WBC Morphology Not Reportable 05/12/21 04:08 Hypersegmented Neuts Not Reportable 05/12/21 04:08 Hyposegmented Neuts Not Reportable 05/12/21 04:08 Hypogranular Neuts Not Reportable 05/12/21 04:08 Smudge Cells Not Reportable 05/12/21 04:08 Toxic Granulation Not Reportable 05/12/21 04:08 Toxic Vacuolation Not Reportable 05/12/21 04:08 Dohle Bodies Not Reportable 05/12/21 04:08 Pelger-Huet Anomaly Not Reportable 05/12/21 04:08 Elizabeth Rods Not Reportable 05/12/21 04:08 Platelet Estimate Consistent w auto 05/12/21 04:08 Clumped Platelets Not Reportable 05/12/21 04:08 Plt Clumps, EDTA Not Reportable 05/12/21 04:08 Large Platelets Not Reportable 05/12/21 04:08 Giant Platelets Not Reportable 05/12/21 04:08 Platelet Satelliting Not Reportable 05/12/21 04:08 Plt Morphology Comment Not Reportable 05/12/21 04:08 RBC Morphology Not Reportable 05/12/21 04:08 Dimorphic RBCs Not Reportable 05/12/21 04:08 Polychromasia Not Reportable 05/12/21 04:08 Hypochromasia Not Reportable 05/12/21 04:08 Poikilocytosis Not Reportable 05/12/21 04:08 Anisocytosis 1+ 05/12/21 04:08 Microcytosis Not Reportable 05/12/21 04:08 Macrocytosis Not Reportable 05/12/21 04:08 Spherocytes Not Reportable 05/12/21 04:08 Pappenheimer Bodies Not Reportable 05/12/21 04:08 Sickle Cells Not Reportable 05/12/21 04:08 Target Cells Not Reportable 05/12/21 04:08 Tear Drop Cells Not Reportable 05/12/21 04:08 Ovalocytes Not Reportable 05/12/21 04:08 Helmet Cells Not Reportable 05/12/21 04:08 Sibley-Ramireno Bodies Not Reportable 05/12/21 04:08 Ararat Rings Not Reportable 05/12/21 04:08 Marcin Cells Not Reportable 05/12/21 04:08 Bite Cells Not Reportable 05/12/21 04:08 Crenated Cell Not Reportable 05/12/21 04:08 Elliptocytes Not Reportable 05/12/21 04:08 Acanthocytes (Spur) Not Reportable 05/12/21 04:08 Rouleaux Not Reportable 05/12/21 04:08 Hemoglobin C Crystals Not Reportable 05/12/21 04:08 Schistocytes Not Reportable 05/12/21 04:08 Malaria parasites Not Reportable 05/12/21 04:08 Tahir Bodies Not Reportable 05/12/21 04:08 Hem Pathologist Commnt No 05/12/21 04:08 PT 16.0 Sec. (12.2-14.9) H 05/11/21 05:43 INR 1.16 (0.87-1.13) H 05/11/21 05:43 ABG pH 7.387 pH Units (7.350-7.450) 05/14/21 10:25 ABG pCO2 46.3 mm Hg 05/14/21 10:25 ABG pO2 76.0 mm Hg (80.0-90.0) L 05/14/21 10:25 ABG HCO3 27.2 mmol/L (20.0-26.0) H 05/14/21 10:25 ABG O2 Saturation 96.2 % (95.0-99.0) 05/14/21 10:25 ABG O2 Content 15.3 (0.0-44) 05/14/21 10:25 ABG Base Excess 1.7 mmol/L (-2.0-3.0) 05/14/21 10:25 ABG Hemoglobin 11.5 gm/dl (12.0-16.0) L 05/14/21 10:25 ABG Carboxyhemoglobin 1.1 % (0.0-5.0) 05/14/21 10:25 ABG Methemoglobin 0.7 % (0.0-1.5) 05/14/21 10:25 Oxyhemoglobin 94.4 % (95.0-99.0) L 05/14/21 10:25 FiO2 10 % 05/14/21 10:25 Sodium 146 mmol/L (137-145) H 05/15/21 04:45 Potassium 3.1 mmol/L (3.6-5.0) L 05/15/21 04:45 Chloride 108.8 mmol/L (98-107) H 05/15/21 04:45 Carbon Dioxide 28 mmol/L (22-30) 05/15/21 04:45 Anion Gap 12 mmol/L 05/15/21 04:45 BUN 6 mg/dL (7-17) L 05/15/21 04:45 Creatinine 0.6 mg/dL (0.6-1.2) 05/15/21 04:45 Estimated GFR > 60 ml/min 05/15/21 04:45 BUN/Creatinine Ratio 10 % 05/15/21 04:45 Glucose 121 mg/dL (65-100) H 05/15/21 04:45 POC Glucose 68 mg/dL (70-105) L 05/15/21 11:58 Hemoglobin A1c 5.2 % (4-6) 05/12/21 04:08 Lactic Acid 3.30 mmol/L (0.7-2.0) H* 05/12/21 Unknown Calcium 7.5 mg/dL (8.4-10.2) L 05/15/21 04:45 Phosphorus 2.30 mg/dL (2.5-4.5) L D 05/15/21 04:45 Magnesium 1.80 mg/dL (1.7-2.3) 05/15/21 04:45 Total Bilirubin 1.90 mg/dL (0.1-1.2) H 05/15/21 04:45 Direct Bilirubin 1.4 mg/dL (0-0.2) H 05/11/21 05:43 Indirect Bilirubin 0.7 mg/dL 05/11/21 05:43 AST 55 units/L (5-40) H 05/15/21 04:45 ALT 28 units/L (7-56) 05/15/21 04:45 Alkaline Phosphatase 231 units/L (35-129) H 05/15/21 04:45 Total Protein 5.4 g/dL (6.3-8.2) L 05/15/21 04:45 Albumin 1.5 g/dL (3.9-5) L 05/15/21 04:45 Albumin/Globulin Ratio 0.4 % 05/15/21 04:45 Lipase 3 units/L (13-60) L 05/11/21 05:43 Urine Color Deisi (Yellow) 05/11/21 11:18 Urine Turbidity Clear (Clear) 05/11/21 11:18 Urine pH 6.0 (5.0-7.0) 05/11/21 11:18 Ur Specific [place] 1.035 (1.003-1.030) H 05/11/21 11:18 Urine Protein 100 mg/dl mg/dL (Negative) 05/11/21 11:18 Urine Glucose (UA) Neg mg/dL (Negative) 05/11/21 11:18 Urine Ketones Neg mg/dL (Negative) 05/11/21 11:18 Urine Blood Neg (Negative) 05/11/21 11:18 Urine Nitrite Neg (Negative) 05/11/21 11:18 Urine Bilirubin Neg (Negative) 05/11/21 11:18 Urine Urobilinogen < 2.0 mg/dL (<2.0) 05/11/21 11:18 Ur Leukocyte Esterase Neg (Negative) 05/11/21 11:18 Urine WBC (Auto) 2.0 /HPF (0.0-6.0) 05/11/21 11:18 Urine RBC (Auto) 1.0 /HPF (0.0-6.0) 05/11/21 11:18 Urine Mucus Few /HPF 05/11/21 11:18 Vancomycin Trough 25.3 ug/mL (5.0-20.0) H 05/14/21 15:20 Coronavirus (PCR) Negative (Negative) 05/12/21 10:16 Hepatitis A IgM Ab Non-reactive (NonReactive) 05/12/21 12:30 Hep Bs Antigen Nonreactive (Negative) 05/12/21 12:30 Hep B Core IgM Ab Non-reactive (NonReactive) 05/12/21 12:30 Hepatitis C Antibody Non-reactive (NonReactive) 05/12/21 12:30 Microbiology: Microbiology 05/15/21 09:12 Peripheral/Venous Blood Culture - Preliminary Culture in Progress 05/15/21 09:12 Peripheral/Venous Blood Culture - Preliminary Culture in Progress 05/11/21 12:28 Peripheral/Venous Blood Culture - Preliminary NO GROWTH AFTER 72 HOURS 05/11/21 12:28 Peripheral/Venous Blood Culture - Preliminary NO GROWTH AFTER 72 HOURS Rivas/IV: Voiding Method Indwelling Catheter Active Medications - Current Medications Current Medications: Generic Name Dose Route Start Last Admin Trade Name Freq PRN Reason Stop Dose Admin Acetaminophen 650 mg 05/11/21 21:40 05/14/21 20:06 Acetaminophen 325 Mg Tab PO 650 mg Q4H PRN Administration Pain MILD(1-3)/Fever >100.5/WOODS Arformoterol Tartrate 15 mcg 05/12/21 08:00 05/14/21 20:24 Arformoterol 15 Mcg/2 Ml Nebu IH 15 mcg Q12HRT ABRAHAN Administration Benzonatate 100 mg 05/12/21 15:53 05/13/21 17:01 Benzonatate 100 Mg Cap PO 100 mg Q8HR PRN Administration Cough Budesonide 0.5 mg 05/12/21 08:00 05/14/21 20:24 Budesonide 0.5 Mg/2 Ml Nebu IH 0.5 mg Q12HRT ABRAHAN Administration Cetirizine HCl 10 mg 05/12/21 10:00 05/15/21 10:14 Cetirizine 10 Mg Tab PO Not Given QDAY ABRAHAN Cholecalciferol 5,000 unit 05/12/21 10:00 05/15/21 10:14 Cholecalciferol (Vit D3) 5,000 Unit Tab PO Not Given DAILY ABRAHAN Dextrose 50 ml 05/12/21 11:57 05/15/21 13:33 Dextrose 50% In Water (25gm) 50 Ml Syringe IV 50 ml Q30MIN PRN Administration Hypoglycemia Protocol Enoxaparin Sodium 40 mg 05/14/21 22:00 05/14/21 21:23 Enoxaparin 40 Mg/0.4 Ml Inj SUB-Q 40 mg QDAY@2200 ABRAHAN Administration Protocol NORepinephrine/NS 8 MG-250 ML 8 mg in 250 mls @ 3.75 mls/hr 05/11/21 15:00 05/15/21 04:43 Norepinephrine/Ns 8 Mg-250 Ml (Double Conc) IV 4 mcg/min TITRATE ABRAHAN 7.5 mls/hr Administration Protocol 2 MCG/MIN Vasopressin 20 unit/ Sodium 101 mls @ 9.09 mls/hr 05/11/21 20:00 05/12/21 17:18 Chloride IV Infused TITR ABRAHAN Titration Protocol 0.03 UNITS/MIN Piperacillin Sod/Tazobactam Sod 4.5 gm in 100 mls @ 200 mls/hr 05/14/21 15:00 05/15/21 09:37 Zosyn/Ns 4.5gm/100ml IV 200 mls/hr Q6H ABRAHAN Administration Protocol Potassium Phosphate 30 mmol/ 510 mls @ 85 mls/hr 05/15/21 12:00 05/15/21 12:52 Sodium Chloride IV 05/15/21 18:00 85 mls/hr ONCE@1200 ABRAHAN Administration Dextrose 1,000 mls @ 50 mls/hr 05/15/21 09:15 D5w IV 05/16/21 05:14 DIRECT ABRAHAN Metoclopramide HCl 10 mg 05/11/21 21:40 Metoclopramide 10 Mg/2 Ml Inj IV Q6H PRN Nausea And Vomiting Montelukast Sodium 10 mg 05/12/21 18:00 05/14/21 18:16 Montelukast 10 Mg Tab PO Not Given QPM ABRAHAN Morphine Sulfate 2 mg 05/11/21 21:40 05/15/21 05:02 Morphine 2 Mg/1 Ml Inj IV 2 mg Q4H PRN Administration Pain, Moderate (4-6) Ondansetron HCl 4 mg 05/11/21 21:40 05/15/21 09:57 Ondansetron 4 Mg/2 Ml Inj IV 4 mg Q8H PRN Administration Nausea And Vomiting Pantoprazole Sodium 40 mg 05/15/21 10:00 05/15/21 09:37 Pantoprazole 40 Mg Inj IV 40 mg QDAY ABRAHAN Administration Prednisone 30 mg 05/13/21 22:00 Prednisone 10 Mg Tab PO BID ABRAHAN Sodium Chloride 10 ml 05/11/21 22:00 05/15/21 09:38 Sodium Chloride 0.9% 10 Ml Flush Syringe IV 10 ml BID ABRAHAN Administration Sodium Chloride 10 ml 05/11/21 21:40 05/15/21 00:35 Sodium Chloride 0.9% 10 Ml Flush Syringe IV 10 ml PRN PRN Administration LINE FLUSH Nutrition/Malnutrition Assess - Dietary Evaluation Nutrition/Malnutrition Findings: Nutrition Notes Start: 05/13/21 09:47 Freq: Status: Active Protocol: Document 05/13/21 09:47 (Rec: 05/13/21 09:50 [id number]) Nutrition Notes Need for Assessment generated from: biztalk consultant,MST Initial or Follow up Brief Note Current Diagnosis COPD,Sepsis Other Pertinent Diagnosis hypotension, pancreatic cancer s/p radiation Current Diet NPO Height 5 ft 2 in Weight 78.4 kg [place] Body Weight (kg) 50.00 BMI 31.6 Subjective/Other Information RN screen for MST. Unable to contact pt. Pt with N/V on admission. Nutrition Intervention Follow-Up By: 05/15/21 Additional Comments F/U: assessment and diet advancement
--- NOTE | 2021-05-15 14:02 | Gastroenterology Progress Note ---
Assessment and Plan 1. Abnormal liver enzymes with biliary dilatation - has chronic biliary stent with dilatation proximal to stent. ? stent occlusion - liver enzymes stable/trending down. MRCP pending but not stable from respiratory stand point to undergo imaging at present time. on broad spectrum abx 2. History of pancreatic head cancer - s/p chemo/radiation, not a surgical candidate 3. Sepsis/shock - on low dose pressors, febrile today, wbc improved 4. respiratory failure - on bipap, management per primary/icu Subjective Date of service: 05/15/21 Principal diagnosis: Septic shock; Pulm fibrosis; Hypoxemic resp failure; h/o pancreatic cancer Interval history: pt remains on bipap. sleeping but arousable. does not verbalize abd pain Objective - Exam Narrative Exam: gen: nad, on bipap cv: rrr lungs: coarse bs bilaterally abd: soft, mild epigastric ttp - Constitutional Vitals: Temp Pulse Resp BP Pulse Ox 98.2 F 115 H 24 117/47 97 05/15/21 12:00 05/15/21 13:00 05/15/21 13:00 05/15/21 13:00 05/15/21 13:00 - Labs CBC & Chem 7: 05/15/21 04:45 05/15/21 04:45 Labs: Laboratory Results - last 24 hr 05/14/21 05/14/21 05/14/21 15:20 15:20 17:26 WBC RBC Hgb Hct MCV MCH MCHC RDW Plt Count Lymph % (Auto) [place] % (Auto) Eos % (Auto) Baso % (Auto) Lymph # (Auto) [place] # (Auto) Eos # (Auto) Baso # (Auto) Seg Neutrophils % Seg Neutrophils # Sodium 146 H D Potassium 3.6 Chloride 108.4 H Carbon Dioxide 28 Anion Gap 13 BUN 5 L Creatinine 0.5 L Estimated GFR > 60 BUN/Creatinine Ratio 10 Glucose 99 POC Glucose 63 L Calcium 7.6 L Phosphorus Magnesium Total Bilirubin AST ALT Alkaline Phosphatase Total Protein Albumin Albumin/Globulin Ratio Vancomycin Trough 25.3 H 05/14/21 05/14/21 05/15/21 21:27 21:56 00:03 WBC RBC Hgb Hct MCV MCH MCHC RDW Plt Count Lymph % (Auto) [place] % (Auto) Eos % (Auto) Baso % (Auto) Lymph # (Auto) [place] # (Auto) Eos # (Auto) Baso # (Auto) Seg Neutrophils % Seg Neutrophils # Sodium Potassium Chloride Carbon Dioxide Anion Gap BUN Creatinine Estimated GFR BUN/Creatinine Ratio Glucose POC Glucose 52 L 96 54 L Calcium Phosphorus Magnesium Total Bilirubin AST ALT Alkaline Phosphatase Total Protein Albumin Albumin/Globulin Ratio Vancomycin Trough 05/15/21 05/15/21 05/15/21 00:29 04:45 04:45 WBC 8.3 RBC 3.24 L Hgb 10.2 Hct 31.8 MCV 98 H MCH 32 MCHC 32 RDW 18.5 H Plt Count 122 L Lymph % (Auto) 7.4 L [place] % (Auto) 6.7 Eos % (Auto) 4.0 Baso % (Auto) 0.7 Lymph # (Auto) 0.6 L [place] # (Auto) 0.6 Eos # (Auto) 0.3 Baso # (Auto) 0.1 Seg Neutrophils % 81.2 H Seg Neutrophils # 6.7 Sodium 146 H Potassium 3.1 L Chloride 108.8 H Carbon Dioxide 28 Anion Gap 12 BUN 6 L Creatinine 0.6 Estimated GFR > 60 BUN/Creatinine Ratio 10 Glucose 121 H POC Glucose 129 H Calcium 7.5 L Phosphorus 2.30 L D Magnesium 1.80 Total Bilirubin 1.90 H AST 55 H ALT 28 Alkaline Phosphatase 231 H Total Protein 5.4 L Albumin 1.5 L Albumin/Globulin Ratio 0.4 Vancomycin Trough 05/15/21 05/15/21 05/15/21 04:48 08:19 11:58 WBC RBC Hgb Hct MCV MCH MCHC RDW Plt Count Lymph % (Auto) [place] % (Auto) Eos % (Auto) Baso % (Auto) Lymph # (Auto) [place] # (Auto) Eos # (Auto) Baso # (Auto) Seg Neutrophils % Seg Neutrophils # Sodium Potassium Chloride Carbon Dioxide Anion Gap BUN Creatinine Estimated GFR BUN/Creatinine Ratio Glucose POC Glucose 102 101 68 L Calcium Phosphorus Magnesium Total Bilirubin AST ALT Alkaline Phosphatase Total Protein Albumin Albumin/Globulin Ratio Vancomycin Trough 05/15/21 13:50 WBC RBC Hgb Hct MCV MCH MCHC RDW Plt Count Lymph % (Auto) [place] % (Auto) Eos % (Auto) Baso % (Auto) Lymph # (Auto) [place] # (Auto) Eos # (Auto) Baso # (Auto) Seg Neutrophils % Seg Neutrophils # Sodium Potassium Chloride Carbon Dioxide Anion Gap BUN Creatinine Estimated GFR BUN/Creatinine Ratio Glucose POC Glucose 147 H Calcium Phosphorus Magnesium Total Bilirubin AST ALT Alkaline Phosphatase Total Protein Albumin Albumin/Globulin Ratio Vancomycin Trough
--- NOTE | 2021-05-15 14:12 | Progress Note ---
Assessment and Plan Cultures: 05/11/2021 blood culture: No growth 05/15/2021 blood culture: In process A/P: 51-year-old female with pancreatic cancer status post chemo and radiation, not considered a candidate for surgery, COPD, pulmonary fibrosis, chronic respiratory failure requiring 2 L nasal oxygen was admitted with acute onset abdominal pain: #Septic shock: Likely cholangitis from biliary dilatation, has indwelling biliary stent #Elevated LFTs: GI following, planning MRCP. CT abdomen pelvis showed persi stent pancreatic head carcinoma with indwelling metallic stent. #History of pancreatic cancer status post chemo and radiation, not a surgical candidate #Acute on chronic respiratory failure: Has underlying pulmonary fibrosis. Requiring BiPAP. Recs: -Zosyn was switched to IV meropenem -follow up new cultures -awaiting MRCP when stable. GI following Dave Doyle MD, FACP, WAQAS [facility] ([facility] O: [phone] F: [phone] Subjective Date of service: 05/15/21 Principal diagnosis: Septic shock; Pulm fibrosis; Hypoxemic resp failure; h/o pancreatic cancer Interval history: Fever yesterday of 101.4 F. Remains on pressors, on BiPAP. Objective - Exam Narrative Exam: Physical Exam: Constitutional: drowsy, on BIPAP Head, Ears, Nose: Normocephalic, atraumatic. External ears, nose normal Eyes: Conjunctivae/corneas clear. No icterus. No ptosis. Neck: Limited due to BiPAP Oral: BiPAP Cardiovascular: S1, S2 + Respiratory: AE fair bilaterally, coarse sounds GI: Soft, bowel sounds normal. No peritoneal signs Musculoskeletal: No pedal edema, no cyanosis. Port present, non tender Skin: No rash or abscess Hem/Lymphatic: No palpable cervical or supraclavicular nodes. No lymphangitis Psych: no agitation Neurological: drowsy - Constitutional Vitals: Vital Signs Temp Pulse Resp BP Pulse Ox 98.2 F 115 H 24 117/47 97 05/15/21 12:00 05/15/21 13:00 05/15/21 13:00 05/15/21 13:00 05/15/21 13:00 Temperature -Last 24 Hours Temperature 98.2 F Temperature 99.6 F Temperature 100.1 F Temperature 100.3 F Temperature 101.4 F - Labs CBC & Chem 7: 05/15/21 04:45 05/15/21 04:45 Labs: Abnormal lab results 05/14/21 05/14/21 05/14/21 Range/Units 15:20 15:20 17:26 RBC (3.65-5.03) M/mm3 MCV (79-97) fl RDW (13.2-15.2) % Plt Count (140-440) K/mm3 Lymph % (Auto) (13.4-35.0) % Lymph # (Auto) (1.2-5.4) K/mm3 Seg Neutrophils % (40.0-70.0) % Sodium 146 H D (137-145) mmol/L Potassium (3.6-5.0) mmol/L Chloride 108.4 H (98-107) mmol/L BUN 5 L (7-17) mg/dL Creatinine 0.5 L (0.6-1.2) mg/dL Glucose (65-100) mg/dL POC Glucose 63 L (70-105) mg/dL Calcium 7.6 L (8.4-10.2) mg/dL Phosphorus (2.5-4.5) mg/dL Total Bilirubin (0.1-1.2) mg/dL AST (5-40) units/L Alkaline Phosphatase (35-129) units/L Total Protein (6.3-8.2) g/dL Albumin (3.9-5) g/dL Vancomycin Trough 25.3 H (5.0-20.0) ug/mL 05/14/21 05/15/21 05/15/21 Range/Units 21:27 00:03 00:29 RBC (3.65-5.03) M/mm3 MCV (79-97) fl RDW (13.2-15.2) % Plt Count (140-440) K/mm3 Lymph % (Auto) (13.4-35.0) % Lymph # (Auto) (1.2-5.4) K/mm3 Seg Neutrophils % (40.0-70.0) % Sodium (137-145) mmol/L Potassium (3.6-5.0) mmol/L Chloride (98-107) mmol/L BUN (7-17) mg/dL Creatinine (0.6-1.2) mg/dL Glucose (65-100) mg/dL POC Glucose 52 L 54 L 129 H (70-105) mg/dL Calcium (8.4-10.2) mg/dL Phosphorus (2.5-4.5) mg/dL Total Bilirubin (0.1-1.2) mg/dL AST (5-40) units/L Alkaline Phosphatase (35-129) units/L Total Protein (6.3-8.2) g/dL Albumin (3.9-5) g/dL Vancomycin Trough (5.0-20.0) ug/mL 05/15/21 05/15/21 05/15/21 Range/Units 04:45 04:45 11:58 RBC 3.24 L (3.65-5.03) M/mm3 MCV 98 H (79-97) fl RDW 18.5 H (13.2-15.2) % Plt Count 122 L (140-440) K/mm3 Lymph % (Auto) 7.4 L (13.4-35.0) % Lymph # (Auto) 0.6 L (1.2-5.4) K/mm3 Seg Neutrophils % 81.2 H (40.0-70.0) % Sodium 146 H (137-145) mmol/L Potassium 3.1 L (3.6-5.0) mmol/L Chloride 108.8 H (98-107) mmol/L BUN 6 L (7-17) mg/dL Creatinine (0.6-1.2) mg/dL Glucose 121 H (65-100) mg/dL POC Glucose 68 L (70-105) mg/dL Calcium 7.5 L (8.4-10.2) mg/dL Phosphorus 2.30 L D (2.5-4.5) mg/dL Total Bilirubin 1.90 H (0.1-1.2) mg/dL AST 55 H (5-40) units/L Alkaline Phosphatase 231 H (35-129) units/L Total Protein 5.4 L (6.3-8.2) g/dL Albumin 1.5 L (3.9-5) g/dL Vancomycin Trough (5.0-20.0) ug/mL 05/15/21 Range/Units 13:50 RBC (3.65-5.03) M/mm3 MCV (79-97) fl RDW (13.2-15.2) % Plt Count (140-440) K/mm3 Lymph % (Auto) (13.4-35.0) % Lymph # (Auto) (1.2-5.4) K/mm3 Seg Neutrophils % (40.0-70.0) % Sodium (137-145) mmol/L Potassium (3.6-5.0) mmol/L Chloride (98-107) mmol/L BUN (7-17) mg/dL Creatinine (0.6-1.2) mg/dL Glucose (65-100) mg/dL POC Glucose 147 H (70-105) mg/dL Calcium (8.4-10.2) mg/dL Phosphorus (2.5-4.5) mg/dL Total Bilirubin (0.1-1.2) mg/dL AST (5-40) units/L Alkaline Phosphatase (35-129) units/L Total Protein (6.3-8.2) g/dL Albumin (3.9-5) g/dL Vancomycin Trough (5.0-20.0) ug/mL
[2021-05-15] MEDS: MEROPENEM/NS 1 GRAM/100 ML 1 GRAM/100 ML BAG IV SCH ×2 (15:49→21:51)
[2021-05-15] MEDS: MONTELUKAST 10 MG TAB PO SCH (17:44)
[2021-05-15] MEDS: ENOXAPARIN 40 MG/0.4 ML INJ SUB-Q SCH (21:26)
[2021-05-16] MEDS: DEXTROSE 50% IN WATER (25GM) 50 ML SYRINGE IV PRN ×3 (00:18→08:30)
[2021-05-16] MEDS: MORPHINE 2 MG/1 ML INJ IV PRN ×3 (04:23→17:55)
[2021-05-16 05:09] LABS: Hematocrit 30.7 % (30.3-42.9); Hemoglobin 9.8 gm/dl (10.1-14.3); Mean Corpuscular HGB Conc 32 % (30-34); Mean Corpuscular Volume 98 fl (79-97); Platelet Count 115 K/mm3 (140-440); Red Blood Count 3.12 M/mm3 (3.65-5.03); Red Cell Distribution Width 18.2 % (13.2-15.2)
[2021-05-16 05:37] LABS: Blood Urea Nitrogen 5 mg/dL (7-17); Calcium 7.2 mg/dL (8.4-10.2); Hemolysis Index 7
[2021-05-16 05:43] LABS: BUN/Creatinine Ratio 10
[2021-05-16] MEDS: NORepinephrine/NS 8 MG-250 ML 8 MG/250 ML INFUS..BTL IV SCH (06:01)
[2021-05-16] MEDS: MEROPENEM/NS 1 GRAM/100 ML 1 GRAM/100 ML BAG IV SCH ×3 (06:06→23:00)
[2021-05-16] MEDS ORDERED: DEXTROSE 10% IN WATER 1,000 ML IV SCH (09:00)
[2021-05-16] MEDS ORDERED: MAGNESIUM SULFATE 2 GM/50 ML BAG IV SCH (09:30)
[2021-05-16] MEDS: CETIRIZINE 10 MG TAB PO SCH ×2 (09:45→09:48)
[2021-05-16] MEDS: CHOLECALCIFEROL (VIT D3) 5,000 UNIT TAB PO SCH ×2 (09:45→09:48)
[2021-05-16] MEDS: PANTOPRAZOLE 40 MG INJ IV SCH (09:48)
[2021-05-16] MEDS: ARFORMOTEROL 15 MCG/2 ML NEBU IH SCH ×2 (10:00→20:12)
[2021-05-16] MEDS: BUDESONIDE 0.5 MG/2 ML NEBU IH SCH ×2 (10:00→20:12)
--- NOTE | 2021-05-16 10:39 | Progress Note ---
Assessment and Plan Septic shock possible hepatobiliary source Lactic acidosis h/o pulmonary fibrosis, Acute on chronic respiratory failure on home O2 of 2 L nasal cannula Transaminitis, biliary dilation, r/o cholangitis Hyperchloremia, metabolic acidosis, hypokalemia Hypoglycemia h/o pancreatic head cancer- chemoradiation therapy h/o Hypertension - begin Dexamethasone re: Pulmonary Fibrosis exacerbation (h/o Solumedrol allergy but was tolerating Prednisone) - continue BIPAP as intubation is fraught with risk of dependency - intubate if decompensates - continue care as below otherwise; - wean Levophed for target MAP > 65 mmHg - refusing port-a-cath access; unable to place PICC line; will continue Femoral CVL X 24 hours and re-assess - MRCP pending as she remains tenuous from a respiratory standpoint - continue anti-infective's; de-escalate per ID recommendations - continue accuchecks with glycemic control per SSI (While critically ill target blood glucose of 140-180 mg/dL; avoid hypoglycemia) - continue to wean supplemental oxygen for target O2 sat's > 90% acutely - aspiration precautions - bronchodilators with pulmonary hygiene per RT - avoid nephrotoxins, renally dose all medications - prn analgesia per pain score - Maintenance of sleep-wake cycle, avoid delirium - G.I. & VTE prophylaxis - PT/OT/ROM exercises - mobility protocols for pressure ulcer prophylaxis - Monitor hemodynamics closely - continue other care per attending / other consultants - discharge planning ongoing concurrently .... Re-evaluate in am & prn CONDITION: CRITICAL PROGNOSIS: GUARDED CODE STATUS: FULL CODE The high probability of a clinically significant, sudden or life-threatening deterioration of the [respiratory, cardiovascular, GI & neurologic] system(s) required my full and direct attention, intervention and personal management. The aggregate critical care time was [35] minutes without overlap. Time includes spent on; [x] Data Review and interpretation [x] Patient assessment and monitoring of vital signs [x] Documentation [x] Medication orders and management Subjective Date of service: 05/16/21 Principal diagnosis: Septic shock; Pulm fibrosis; Hypoxemic resp failure; COVID- 19 infxn Interval history: Patient is seen today for: Septic shock; pulmonary fibrosis; Acute on chronic hypoxemic respiratory failure; Transaminitis; h/o pancreatic head cancer; HTN Seen and examined at bedside; 24hour events reviewed; nursing and respiratory care staff consulted; no adverse overnight events reported to me; resting in bed; remains on BIPAP; still with ARDS numbers; no N/V/F/C; tolerated some ice chips yesterday Objective Vital Signs - 12hr 05/15/21 05/15/21 05/15/21 22:46 23:00 23:16 Temperature Pulse Rate 121 H 134 H 123 H Pulse Rate [ Anterior Bilateral Throughout] Pulse Rate [ From Monitor] Respiratory 38 H 27 H 40 H Rate Respiratory Rate [Anterior Bilateral Throughout] Blood Pressure 101/64 102/71 102/71 O2 Sat by Pulse Oximetry 05/15/21 05/15/21 05/16/21 23:30 23:46 00:00 Temperature 100.3 F H Pulse Rate 125 H 127 H 118 H Pulse Rate [ Anterior Bilateral Throughout] Pulse Rate [ 122 H From Monitor] Respiratory 33 H 35 H 40 H Rate Respiratory Rate [Anterior Bilateral Throughout] Blood Pressure 120/72 120/72 103/64 O2 Sat by Pulse 73 L 94 Oximetry 05/16/21 05/16/21 05/16/21 00:16 00:30 00:46 Temperature Pulse Rate 122 H 121 H 121 H Pulse Rate [ Anterior Bilateral Throughout] Pulse Rate [ From Monitor] Respiratory 35 H 34 H 31 H Rate Respiratory Rate [Anterior Bilateral Throughout] Blood Pressure 103/64 103/61 103/61 O2 Sat by Pulse 97 99 97 Oximetry 05/16/21 05/16/21 05/16/21 01:00 01:16 01:30 Temperature Pulse Rate 119 H 116 H 114 H Pulse Rate [ Anterior Bilateral Throughout] Pulse Rate [ From Monitor] Respiratory 33 H 29 H 24 Rate Respiratory Rate [Anterior Bilateral Throughout] Blood Pressure 91/52 91/52 103/53 O2 Sat by Pulse 98 98 99 Oximetry 05/16/21 05/16/21 05/16/21 01:37 01:46 02:00 Temperature Pulse Rate 116 H 114 H 112 H Pulse Rate [ Anterior Bilateral Throughout] Pulse Rate [ From Monitor] Respiratory 28 H 24 33 H Rate Respiratory Rate [Anterior Bilateral Throughout] Blood Pressure 103/53 85/54 O2 Sat by Pulse 98 99 98 Oximetry 05/16/21 05/16/21 05/16/21 02:16 02:30 02:46 Temperature Pulse Rate 114 H 109 H 111 H Pulse Rate [ Anterior Bilateral Throughout] Pulse Rate [ From Monitor] Respiratory 35 H 28 H 26 H Rate Respiratory Rate [Anterior Bilateral Throughout] Blood Pressure 85/54 102/62 102/62 O2 Sat by Pulse 96 99 99 Oximetry 05/16/21 05/16/21 05/16/21 03:00 03:16 03:30 Temperature Pulse Rate 113 H 112 H 120 H Pulse Rate [ Anterior Bilateral Throughout] Pulse Rate [ From Monitor] Respiratory 34 H 29 H 37 H Rate Respiratory Rate [Anterior Bilateral Throughout] Blood Pressure 105/59 105/59 105/63 O2 Sat by Pulse 97 99 92 Oximetry 05/16/21 05/16/21 05/16/21 03:35 03:46 04:00 Temperature 98.9 F Pulse Rate 118 H 115 H 117 H Pulse Rate [ Anterior Bilateral Throughout] Pulse Rate [ 122 H From Monitor] Respiratory 32 H 31 H 28 H Rate Respiratory Rate [Anterior Bilateral Throughout] Blood Pressure 105/63 105/63 98/51 O2 Sat by Pulse 98 99 99 Oximetry 05/16/21 05/16/21 05/16/21 04:16 04:30 04:46 Temperature Pulse Rate 125 H 126 H 121 H Pulse Rate [ Anterior Bilateral Throughout] Pulse Rate [ From Monitor] Respiratory 36 H 40 H 28 H Rate Respiratory Rate [Anterior Bilateral Throughout] Blood Pressure 98/51 109/65 109/65 O2 Sat by Pulse 95 95 98 Oximetry 05/16/21 05/16/21 05/16/21 05:00 05:16 05:30 Temperature Pulse Rate 122 H 116 H 116 H Pulse Rate [ Anterior Bilateral Throughout] Pulse Rate [ From Monitor] Respiratory 21 20 24 Rate Respiratory Rate [Anterior Bilateral Throughout] Blood Pressure 108/49 108/49 75/43 O2 Sat by Pulse 99 99 99 Oximetry 05/16/21 05/16/21 05/16/21 05:46 06:00 08:32 Temperature Pulse Rate 114 H 114 H Pulse Rate [ Anterior Bilateral Throughout] Pulse Rate [ From Monitor] Respiratory 24 24 28 H Rate Respiratory Rate [Anterior Bilateral Throughout] Blood Pressure 81/45 80/47 O2 Sat by Pulse 100 99 Oximetry 05/16/21 05/16/21 09:58 10:00 Temperature Pulse Rate 111 H Pulse Rate [ 111 H Anterior Bilateral Throughout] Pulse Rate [ From Monitor] Respiratory 25 H Rate Respiratory 25 H Rate [Anterior Bilateral Throughout] Blood Pressure 96/56 O2 Sat by Pulse 97 Oximetry Constitutional: no acute distress, alert, other (mildly increased respiratory effort at rest on BIPAP 15/10 FIO2 100%) Eyes: non-icteric ENT: oropharynx moist Neck: supple, no lymphadenopathy, no JVD Effort: mildly labored Ascultation: Bilateral: diminished breath sounds, rales Percussion: Bilateral: not dull Cardiovascular: regular rate and rhythm, other (S1,S2) Gastrointestinal: normoactive bowel sounds, hypoactive bowel sounds, soft, non- distended (protuberant) Integumentary: normal Extremities: no cyanosis, no edema, pulses normal, other (right femoral CVL) Neurologic: normal mental status, non-focal exam, pupils equal and round Psychiatric: mood appropriate, affect normal CBC and BMP: 05/17/21 04:15 05/17/21 04:15 ABG, PT/INR, D-dimer: ABG ABG pH 7.387 pH Units (7.350-7.450) 05/14/21 10:25 ABG pCO2 46.3 mm Hg 05/14/21 10:25 ABG pO2 76.0 mm Hg (80.0-90.0) L 05/14/21 10:25 ABG O2 Saturation 96.2 % (95.0-99.0) 05/14/21 10:25 PT/INR, D-dimer PT 16.0 Sec. (12.2-14.9) H 05/11/21 05:43 INR 1.16 (0.87-1.13) H 05/11/21 05:43 Abnormal lab findings: Abnormal Labs 05/11/21 05/11/21 05/11/21 05:43 05:43 05:43 WBC RBC Hgb MCV 98 H RDW 17.7 H Plt Count Lymph % (Auto) 10.8 L Lymph # (Auto) 0.6 L Seg Neutrophils % 84.1 H Seg Neuts % (Manual) Lymphocytes % (Manual) Seg Neutrophils # Man Lymphocytes # (Manual) PT 16.0 H INR 1.16 H ABG pO2 ABG HCO3 ABG Hemoglobin Oxyhemoglobin Sodium Potassium Chloride Carbon Dioxide 21 L BUN 4 L Creatinine 0.4 L Glucose POC Glucose Lactic Acid Calcium 8.3 L Phosphorus Magnesium Total Bilirubin 2.10 H Direct Bilirubin 1.4 H AST 335 H ALT 57 H Alkaline Phosphatase 339 H Total Protein Albumin 2.4 L Lipase 3 L Ur Specific [place] Vancomycin Trough 05/11/21 05/11/21 05/12/21 11:18 12:28 04:08 WBC RBC Hgb MCV RDW Plt Count Lymph % (Auto) Lymph # (Auto) Seg Neutrophils % Seg Neuts % (Manual) Lymphocytes % (Manual) Seg Neutrophils # Man Lymphocytes # (Manual) PT INR ABG pO2 ABG HCO3 ABG Hemoglobin Oxyhemoglobin Sodium Potassium Chloride Carbon Dioxide BUN Creatinine Glucose POC Glucose Lactic Acid 4.20 H* 4.50 H* Calcium Phosphorus Magnesium Total Bilirubin Direct Bilirubin AST ALT Alkaline Phosphatase Total Protein Albumin Lipase Ur Specific [place] 1.035 H Vancomycin Trough 05/12/21 05/12/21 05/12/21 04:08 04:08 09:47 WBC 22.8 H RBC 3.39 L Hgb MCV 98 H RDW 17.7 H Plt Count Lymph % (Auto) Lymph # (Auto) Seg Neutrophils % Seg Neuts % (Manual) 85.5 H Lymphocytes % (Manual) 2.0 L Seg Neutrophils # Man 19.5 H Lymphocytes # (Manual) 0.5 L PT INR ABG pO2 ABG HCO3 ABG Hemoglobin Oxyhemoglobin Sodium Potassium 3.3 L Chloride 108.9 H Carbon Dioxide 17 L BUN 4 L Creatinine 0.5 L Glucose 106 H POC Glucose Lactic Acid 2.60 H* Calcium 6.4 L D Phosphorus Magnesium Total Bilirubin 2.10 H Direct Bilirubin AST 156 H ALT 61 H Alkaline Phosphatase 317 H Total Protein 5.4 L D Albumin 1.8 L Lipase Ur Specific [place] Vancomycin Trough 05/12/21 05/12/21 05/12/21 11:47 12:30 12:36 WBC RBC Hgb MCV RDW Plt Count Lymph % (Auto) Lymph # (Auto) Seg Neutrophils % Seg Neuts % (Manual) Lymphocytes % (Manual) Seg Neutrophils # Man Lymphocytes # (Manual) PT INR ABG pO2 ABG HCO3 ABG Hemoglobin Oxyhemoglobin Sodium Potassium Chloride Carbon Dioxide BUN Creatinine Glucose POC Glucose 59 L 120 H Lactic Acid 2.50 H* Calcium Phosphorus Magnesium Total Bilirubin Direct Bilirubin AST ALT Alkaline Phosphatase Total Protein Albumin Lipase Ur Specific [place] Vancomycin Trough 05/12/21 05/12/21 05/13/21 23:45 Unknown 04:00 WBC 19.8 H RBC 3.52 L Hgb MCV 98 H RDW 18.5 H Plt Count Lymph % (Auto) Lymph # (Auto) Seg Neutrophils % Seg Neuts % (Manual) Lymphocytes % (Manual) Seg Neutrophils # Man Lymphocytes # (Manual) PT INR ABG pO2 ABG HCO3 ABG Hemoglobin Oxyhemoglobin Sodium Potassium Chloride Carbon Dioxide BUN Creatinine Glucose POC Glucose 119 H Lactic Acid 3.30 H* Calcium Phosphorus Magnesium Total Bilirubin Direct Bilirubin AST ALT Alkaline Phosphatase Total Protein Albumin Lipase Ur Specific [place] Vancomycin Trough 05/13/21 05/13/21 05/13/21 04:00 05:42 12:19 WBC RBC Hgb MCV RDW Plt Count Lymph % (Auto) Lymph # (Auto) Seg Neutrophils % Seg Neuts % (Manual) Lymphocytes % (Manual) Seg Neutrophils # Man Lymphocytes # (Manual) PT INR ABG pO2 ABG HCO3 ABG Hemoglobin Oxyhemoglobin Sodium Potassium 3.4 L Chloride 107.1 H Carbon Dioxide 19 L BUN 4 L Creatinine 0.4 L Glucose 157 H POC Glucose 143 H 110 H Lactic Acid Calcium 7.4 L D Phosphorus 1.60 L Magnesium 1.50 L Total Bilirubin 1.40 H Direct Bilirubin AST 95 H ALT Alkaline Phosphatase 328 H Total Protein 5.5 L Albumin 1.6 L Lipase Ur Specific [place] Vancomycin Trough 05/14/21 05/14/21 05/14/21 06:15 06:15 10:25 WBC 11.7 H RBC 3.41 L Hgb MCV 98 H RDW 18.6 H Plt Count Lymph % (Auto) Lymph # (Auto) Seg Neutrophils % Seg Neuts % (Manual) Lymphocytes % (Manual) Seg Neutrophils # Man Lymphocytes # (Manual) PT INR ABG pO2 76.0 L ABG HCO3 27.2 H ABG Hemoglobin 11.5 L Oxyhemoglobin 94.4 L Sodium Potassium 3.2 L Chloride Carbon Dioxide BUN 6 L Creatinine 0.5 L Glucose 103 H POC Glucose Lactic Acid Calcium 7.3 L Phosphorus 1.70 L Magnesium Total Bilirubin Direct Bilirubin AST 66 H ALT Alkaline Phosphatase 295 H Total Protein 5.3 L Albumin 1.8 L Lipase Ur Specific [place] Vancomycin Trough 05/14/21 05/14/21 05/14/21 15:20 15:20 17:26 WBC RBC Hgb MCV RDW Plt Count Lymph % (Auto) Lymph # (Auto) Seg Neutrophils % Seg Neuts % (Manual) Lymphocytes % (Manual) Seg Neutrophils # Man Lymphocytes # (Manual) PT INR ABG pO2 ABG HCO3 ABG Hemoglobin Oxyhemoglobin Sodium 146 H D Potassium Chloride 108.4 H Carbon Dioxide BUN 5 L Creatinine 0.5 L Glucose POC Glucose 63 L Lactic Acid Calcium 7.6 L Phosphorus Magnesium Total Bilirubin Direct Bilirubin AST ALT Alkaline Phosphatase Total Protein Albumin Lipase Ur Specific [place] Vancomycin Trough 25.3 H 05/14/21 05/15/21 05/15/21 21:27 00:03 00:29 WBC RBC Hgb MCV RDW Plt Count Lymph % (Auto) Lymph # (Auto) Seg Neutrophils % Seg Neuts % (Manual) Lymphocytes % (Manual) Seg Neutrophils # Man Lymphocytes # (Manual) PT INR ABG pO2 ABG HCO3 ABG Hemoglobin Oxyhemoglobin Sodium Potassium Chloride Carbon Dioxide BUN Creatinine Glucose POC Glucose 52 L 54 L 129 H Lactic Acid Calcium Phosphorus Magnesium Total Bilirubin Direct Bilirubin AST ALT Alkaline Phosphatase Total Protein Albumin Lipase Ur Specific [place] Vancomycin Trough 05/15/21 05/15/21 05/15/21 04:45 04:45 11:58 WBC RBC 3.24 L Hgb MCV 98 H RDW 18.5 H Plt Count 122 L Lymph % (Auto) 7.4 L Lymph # (Auto) 0.6 L Seg Neutrophils % 81.2 H Seg Neuts % (Manual) Lymphocytes % (Manual) Seg Neutrophils # Man Lymphocytes # (Manual) PT INR ABG pO2 ABG HCO3 ABG Hemoglobin Oxyhemoglobin Sodium 146 H Potassium 3.1 L Chloride 108.8 H Carbon Dioxide BUN 6 L Creatinine Glucose 121 H POC Glucose 68 L Lactic Acid Calcium 7.5 L Phosphorus 2.30 L D Magnesium Total Bilirubin 1.90 H Direct Bilirubin AST 55 H ALT Alkaline Phosphatase 231 H Total Protein 5.4 L Albumin 1.5 L Lipase Ur Specific [place] Vancomycin Trough 05/15/21 05/16/21 05/16/21 13:50 00:06 00:43 WBC RBC Hgb MCV RDW Plt Count Lymph % (Auto) Lymph # (Auto) Seg Neutrophils % Seg Neuts % (Manual) Lymphocytes % (Manual) Seg Neutrophils # Man Lymphocytes # (Manual) PT INR ABG pO2 ABG HCO3 ABG Hemoglobin Oxyhemoglobin Sodium Potassium Chloride Carbon Dioxide BUN Creatinine Glucose POC Glucose 147 H 54 L 116 H Lactic Acid Calcium Phosphorus Magnesium Total Bilirubin Direct Bilirubin AST ALT Alkaline Phosphatase Total Protein Albumin Lipase Ur Specific [place] Vancomycin Trough 05/16/21 05/16/21 05/16/21 04:31 04:31 05:58 WBC RBC 3.12 L Hgb 9.8 L MCV 98 H RDW 18.2 H Plt Count 115 L Lymph % (Auto) Lymph # (Auto) Seg Neutrophils % Seg Neuts % (Manual) Lymphocytes % (Manual) Seg Neutrophils # Man Lymphocytes # (Manual) PT INR ABG pO2 ABG HCO3 ABG Hemoglobin Oxyhemoglobin Sodium 146 H Potassium 3.2 L Chloride Carbon Dioxide BUN 5 L Creatinine 0.5 L Glucose POC Glucose 61 L Lactic Acid Calcium 7.2 L Phosphorus 2.30 L Magnesium Total Bilirubin Direct Bilirubin AST ALT Alkaline Phosphatase Total Protein Albumin Lipase Ur Specific [place] Vancomycin Trough 05/16/21 08:11 WBC RBC Hgb MCV RDW Plt Count Lymph % (Auto) Lymph # (Auto) Seg Neutrophils % Seg Neuts % (Manual) Lymphocytes % (Manual) Seg Neutrophils # Man Lymphocytes # (Manual) PT INR ABG pO2 ABG HCO3 ABG Hemoglobin Oxyhemoglobin Sodium Potassium Chloride Carbon Dioxide BUN Creatinine Glucose POC Glucose 58 L Lactic Acid Calcium Phosphorus Magnesium Total Bilirubin Direct Bilirubin AST ALT Alkaline Phosphatase Total Protein Albumin Lipase Ur Specific [place] Vancomycin Trough Allied health notes reviewed: nursing
[2021-05-16] MEDS: POTASSIUM CHLORIDE 20 MEQ 20 MEQ/100 ML BAG IV SCH ×2 (11:15→12:11)
[2021-05-16] MEDS ORDERED: POTASSIUM PHOSPHATE 15 MMOL in SODIUM CHLORIDE 0.9% 250ML 250 ML IV SCH (11:30)
--- NOTE | 2021-05-16 12:33 | Progress Note ---
Assessment and Plan Cultures: 05/11/2021 blood culture: No growth 05/15/2021 blood culture: No growth A/P: 51-year-old female with pancreatic cancer status post chemo and radiation, not considered a candidate for surgery, COPD, pulmonary fibrosis, chronic respiratory failure requiring 2 L nasal oxygen was admitted with acute onset abdominal pain: #Septic shock: Likely cholangitis from biliary dilatation, has indwelling biliary stent #Elevated LFTs: GI following, planning MRCP. CT abdomen pelvis showed persis tent pancreatic head carcinoma with indwelling metallic stent. #History of pancreatic cancer status post chemo and radiation, not a surgical candidate #Acute on chronic respiratory failure: Has underlying pulmonary fibrosis. Requiring BiPAP. Recs: -continue IV meropenem, D2 -follow up new cultures -awaiting MRCP when stable. GI following -poor prognosis Dave Doyle MD, FACP, WAQAS [facility] O: [phone] F: [phone] Subjective Date of service: 05/16/21 Principal diagnosis: Septic shock; Pulm fibrosis; Hypoxemic resp failure; COVID- 19 infxn Interval history: Low grade temps continue. Remains on pressors, on BiPAP. Objective - Exam Narrative Exam: Physical Exam: Constitutional: drowsy, on BIPAP Head, Ears, Nose: Normocephalic, atraumatic. External ears, nose normal Eyes: Conjunctivae/corneas clear. No icterus. No ptosis. Neck: Limited due to BiPAP Oral: BiPAP Cardiovascular: S1, S2 + Respiratory: AE fair bilaterally, coarse sounds GI: Soft, bowel sounds normal. No peritoneal signs Musculoskeletal: No pedal edema, no cyanosis. Port present, non tender Skin: No rash or abscess Hem/Lymphatic: No palpable cervical or supraclavicular nodes. No lymphangitis Psych: no agitation Neurological: drowsy - Constitutional Vitals: Vital Signs Temp Pulse Resp BP Pulse Ox 100.3 F H 117 H 33 H 105/64 96 05/16/21 08:00 05/16/21 11:44 05/16/21 11:44 05/16/21 11:30 05/16/21 11:44 Temperature -Last 24 Hours Temperature 100.3 F Temperature 98.9 F Temperature 100.3 F Temperature 98.3 F Temperature 99.9 F - Labs CBC & Chem 7: 05/16/21 04:31 05/16/21 04:31 Labs: Abnormal lab results 05/15/21 05/16/21 05/16/21 Range/Units 13:50 00:06 00:43 RBC (3.65-5.03) M/mm3 Hgb (10.1-14.3) gm/dl MCV (79-97) fl RDW (13.2-15.2) % Plt Count (140-440) K/mm3 Sodium (137-145) mmol/L Potassium (3.6-5.0) mmol/L BUN (7-17) mg/dL Creatinine (0.6-1.2) mg/dL POC Glucose 147 H 54 L 116 H (70-105) mg/dL Calcium (8.4-10.2) mg/dL Phosphorus (2.5-4.5) mg/dL 05/16/21 05/16/21 05/16/21 Range/Units 04:31 04:31 05:58 RBC 3.12 L (3.65-5.03) M/mm3 Hgb 9.8 L (10.1-14.3) gm/dl MCV 98 H (79-97) fl RDW 18.2 H (13.2-15.2) % Plt Count 115 L (140-440) K/mm3 Sodium 146 H (137-145) mmol/L Potassium 3.2 L (3.6-5.0) mmol/L BUN 5 L (7-17) mg/dL Creatinine 0.5 L (0.6-1.2) mg/dL POC Glucose 61 L (70-105) mg/dL Calcium 7.2 L (8.4-10.2) mg/dL Phosphorus 2.30 L (2.5-4.5) mg/dL 05/16/21 Range/Units 08:11 RBC (3.65-5.03) M/mm3 Hgb (10.1-14.3) gm/dl MCV (79-97) fl RDW (13.2-15.2) % Plt Count (140-440) K/mm3 Sodium (137-145) mmol/L Potassium (3.6-5.0) mmol/L BUN (7-17) mg/dL Creatinine (0.6-1.2) mg/dL POC Glucose 58 L (70-105) mg/dL Calcium (8.4-10.2) mg/dL Phosphorus (2.5-4.5) mg/dL
--- NOTE | 2021-05-16 12:44 | Gastroenterology Progress Note ---
Assessment and Plan 1. Abnormal liver enzymes with biliary dilatation - has chronic biliary stent with dilatation proximal to stent. ? stent occlusion. MRCP pending but not stable from respiratory stand point to undergo imaging at present time. on broad spectrum abx (ID following). wbc is improved with abx. will repeat liver enzymes in the AM but had been trending down since admission previously. 2. History of pancreatic head cancer - s/p chemo/radiation, not a surgical candidate 3. Sepsis/shock 4. respiratory failure - remains on bipap Subjective Date of service: 05/16/21 Principal diagnosis: Septic shock; Pulm fibrosis; Hypoxemic resp failure; COVID- 19 infxn Interval history: pt remains on bipap, desats as soon as removed, decreased level of resp onsiveness today Objective - Constitutional Vitals: Temp Pulse Resp BP Pulse Ox 100.3 F H 117 H 33 H 105/64 96 05/16/21 08:00 05/16/21 11:44 05/16/21 11:44 05/16/21 11:30 05/16/21 11:44 General appearance: other (labored respirations, on bipap) - Respiratory Respiratory: bilateral: diminished, wheezing - Cardiovascular Rhythm: regular - Gastrointestinal General gastrointestinal: Present: soft, non-distended - Labs CBC & Chem 7: 05/16/21 04:31 05/16/21 04:31 Labs: Laboratory Results - last 24 hr 05/15/21 05/15/21 05/16/21 13:50 17:01 00:06 WBC RBC Hgb Hct MCV MCH MCHC RDW Plt Count Sodium Potassium Chloride Carbon Dioxide Anion Gap BUN Creatinine Estimated GFR BUN/Creatinine Ratio Glucose POC Glucose 147 H 81 54 L Calcium Phosphorus Magnesium 05/16/21 05/16/21 05/16/21 00:43 04:31 04:31 WBC 7.9 RBC 3.12 L Hgb 9.8 L Hct 30.7 MCV 98 H MCH 31 MCHC 32 RDW 18.2 H Plt Count 115 L Sodium 146 H Potassium 3.2 L Chloride 106.1 Carbon Dioxide 30 Anion Gap 13 BUN 5 L Creatinine 0.5 L Estimated GFR > 60 BUN/Creatinine Ratio 10 Glucose 77 POC Glucose 116 H Calcium 7.2 L Phosphorus 2.30 L Magnesium 1.70 05/16/21 05/16/21 05/16/21 05:58 06:48 08:11 WBC RBC Hgb Hct MCV MCH MCHC RDW Plt Count Sodium Potassium Chloride Carbon Dioxide Anion Gap BUN Creatinine Estimated GFR BUN/Creatinine Ratio Glucose POC Glucose 61 L 79 58 L Calcium Phosphorus Magnesium 05/16/21 11:48 WBC RBC Hgb Hct MCV MCH MCHC RDW Plt Count Sodium Potassium Chloride Carbon Dioxide Anion Gap BUN Creatinine Estimated GFR BUN/Creatinine Ratio Glucose POC Glucose 100 Calcium Phosphorus Magnesium
--- NOTE | 2021-05-16 13:22 | Progress Note ---
Assessment and Plan Assessment and plan: This is a 48-year-old female with past medical history of COPD, pancreatic cancer with radiation s/p pancreatic stent placement, pulmonary fibrosis, chronic respiratory failure on 2 L NC at home admitted with sepsis, transaminitis and lactic acidosis. Hospital Course to Date: 05/12: Patient remains on high-dose Levophed and vasopressin. Given 1 L LR bolus. GI would like an MRCP to be conducted which has been ordered. Patient cleared for sips of water. Added Tessalon due to severe cough. Potassium repleted. Covid PCR negative. 05/13: Remains on Levophed and vasopressin has been off since yesterday evening. Started on stress dose steroids. MRCP pending. Hypokalemia, hypomagnesemia and hypophosphatemia repleted. Liver enzymes trending down. Started on D5 nor mal saline yesterday. 05/14: Patient with worsen respiratory status this am, tachypneic with increased O2 requirement. On full support on the Bipap this am with worsening diffuse bilateral opacities on CXR, s/p X1 dose of IV lasix overnight. Patient remains afebrile with no leukocytosis. Will continue IV Lasix X3 doses, f/u CXR in the am. D/W CCM due to patient worsening respiratory status hold on MRCP for today. Patient is off Levophed this am, leave pressors on standby might need to be put back on low dose pressors with IV diuretic. Patient also noted with Rt. fem CVC which was inserted in the ED, most likely due to be change, unsuccessfult PICC by IVT today and patient is refusing Port access at this time. 05/15: Patient remains on continuous Bipap overnight, desat when bipap is remov ed for mouth care. Plan to wean Fio2 as tolerated for SPO2 goal above 90%. Febrile overnight, TMAX 101.4, on IV abx zosyn, repeat blood culture ordered. Low K and phosph repleted, repeat labs in the am. 05/16: Patient back on full support on the Bipap, still not tolerating FiO2 wean, patient desat in the 80s. D/w CCM plan to continue continuous bipap for now, patient going on over 4 days with no nutrition plan to initiate TPN tomorrow. D10w gtt added for hypoglycemia. Patient platelet continue to steadily drop, given patient's history with continue AC for now, H&H is stable, no s/s of any active bleeding. Electrolytes repleted, will continue to trend CBC, BMP, mg, and phos. MRCP canceled, plan to reorder once patient's respiratory status is more stable. Assessment and Plan #Neuro: NAD -Avoid delirium -Reorientation as needed -Maintain sleep-wake cycle #CV: Hypotension #h/o HTN -Schedule IV Lasix addedX 3days -Remains on Levophed gtt -Hold home htn medications -BP monitoring per protocol for MAP 65 and above -CCM consulted, appreciate recommendations #Respiratory: Acute on chronic respiratory failure #h/o pulmonary fibrosis #O2 Dependent at home -With worsen respiratory status this am, RR in the high 30s -12/20 Desated overnight, SPO2 in low 60 -Still on full support on Bipap- 100%, 15/10 -Repeat CXR this with no sig. change, diffuse bilateral opacities -IV lasix X3 days -Check ABG PRN -Plan to wean Fio2 as tolerated -Continue Supplemental oxygen and SPO2 monitoring for SPO2 goal above 90% -Repeat CXR per [facility] -Tessalon Perles as needed for cough -Pulmonary hygiene -[facility] is following #GI: Transaminitis #H/o Pancreatic CA s/p stent placement #Biliary dilation #R/o cholangitis #Nausea/Vomiting- Resolved -CT abdomen/pelvis showed pancreatic cancer with metallic stent with possible occlusion, mild pelvic fluid and mild colonic thickening -GI consulted, patient recommendations -Plan for MRCP once respiratory status is stable, If stent occlusion/biliary ob struction would recommend IR consult for PTC drain per GI -Plan to initiate TPN tomorrow, for nutrition -Nutrition consulted -D10W added for now -Continue PPI -BR to start once taking p.o. -Acute hepatitis panel negative -PRN antiemetic for N/V #:Hypokalemia, hypophosphatemia, hypomagnesemia -Electrolytes repleted -Continue to monitor and replete electrolytes as needed -Strict intake and output -Purewick in place -Keep patient at a net negatibe balance, net -2.1L in last 24hrs -Daily weights -Renally dose meds, avoid nephrotoxins -Repeat Labs ordered #ID: Sepsis #Leukopcytosis #Lactic acidosis -Presented with elevated WBCs, hypotensive, and with lactic acidosis -COVID swab negative -Blood cultures x2 no growth to date -Leukocytosis downtrending, 8.3 this am -Febrile overnight, repeat blood culture ordered -Continue IV Antibiotic therap -Monitor WBC and fever curve -ID consult if needed #Heme/ONC:Thrombocytopenia #h/o Pancreatic Cancer #s/p pancreatic stent placement -S/p radiation -F/U with outpatient with own oncologist -possible stent occlusion, Plan for MRCP -Not a surgical candidate per GI -Right chest post not accessed, patient refused -RUE swelling- RUE doppler neg DVT -Patient with thrombocytopenia, slowly dropping since admit -Given patient's history, will continue AC for now -Continue AC-Lovenox and SCD to bilateral lower extremities while in bed -Trend CBC -Close monitor for s/s of active bleeding #Endo: Hypoglycemia -BG dropped in the 50, treated per hypoglycemic protocol -Continue SSI Q6hrs -D10w added -Continue Hypoglycemia protocol -Avoid hypoglycemia The high probability of a clinically significant, sudden or life threatening deterioration of the [Multiple] system(s) required my full and direct attention, intervention and personal management. The aggregate critical care time was [60] minutes. This time is in addition to time spent performing reported procedures but includes the following: [x] Data Review and interpretation [x] Patient assessment and monitoring of vital signs [x] Documentation [x] Medication orders and management Disposition Plan: ICU Total Time Spent with Patient (Minutes): 60 History Interval history: Patient seen and examined at the bedside. Patient is awake and alert, tachypneic, remains on continuous Bipap this am. Remains on Levophed gtt for hypotension. Hypoglycemic overnight, treated per hypoglycemic protocol. Hospitalist Physical - Constitutional Vitals: Temp Pulse Resp BP Pulse Ox 100.3 F H 117 H 33 H 105/64 96 05/16/21 08:00 05/16/21 11:44 05/16/21 11:44 05/16/21 11:30 05/16/21 11:44 General appearance: Present: mild distress, obese - EENT Eyes: Present: PERRL, EOM intact ENT: hearing intact - Neck Neck: Present: normal ROM - Respiratory Respiratory effort: labored Respiratory: bilateral: rhonchi - Cardiovascular Rhythm: regular Heart Sounds: Present: S1 & S2 - Extremities Extremities: no ischemia, pulses intact, pulses symmetrical Extremity abnormal: edema - Peripheral Assessment Generalized Edema Type: Non-pitting Edema Degree: 2+ Capillary Refill: < 3 seconds Skin Temperature: Warm Peripheral Pulses: within normal limits - Abdominal General gastrointestinal: soft, non-tender, normal bowel sounds - Integumentary Integumentary: Present: clear, warm, dry - Psychiatric Psychiatric: appropriate mood/affect, cooperative - Neurologic Neurologic: CNII-XII intact, moves all extremities - Allied Health Allied health notes reviewed: nursing Results - Labs CBC & Chem 7: 05/16/21 04:31 05/16/21 04:31 Labs: Laboratory Last Values WBC 7.9 K/mm3 (4.5-11.0) 05/16/21 04:31 RBC 3.12 M/mm3 (3.65-5.03) L 05/16/21 04:31 Hgb 9.8 gm/dl (10.1-14.3) L 05/16/21 04:31 Hct 30.7 % (30.3-42.9) 05/16/21 04:31 MCV 98 fl (79-97) H 05/16/21 04:31 MCH 31 pg (28-32) 05/16/21 04:31 MCHC 32 % (30-34) 05/16/21 04:31 RDW 18.2 % (13.2-15.2) H 05/16/21 04:31 Plt Count 115 K/mm3 (140-440) L 05/16/21 04:31 Lymph % (Auto) 7.4 % (13.4-35.0) L 05/15/21 04:45 [place] % (Auto) 6.7 % (0.0-7.3) 05/15/21 04:45 Eos % (Auto) 4.0 % (0.0-4.3) 05/15/21 04:45 Baso % (Auto) 0.7 % (0.0-1.8) 05/15/21 04:45 Lymph # (Auto) 0.6 K/mm3 (1.2-5.4) L 05/15/21 04:45 [place] # (Auto) 0.6 K/mm3 (0.0-0.8) 05/15/21 04:45 Eos # (Auto) 0.3 K/mm3 (0.0-0.4) 05/15/21 04:45 Baso # (Auto) 0.1 K/mm3 (0.0-0.1) 05/15/21 04:45 Add Manual Diff Complete 05/12/21 04:08 Total Counted 200 05/12/21 04:08 Seg Neutrophils % 81.2 % (40.0-70.0) H 05/15/21 04:45 Seg Neuts % (Manual) 85.5 % (40.0-70.0) H 05/12/21 04:08 Band Neutrophils % 8.5 % 05/12/21 04:08 Lymphocytes % (Manual) 2.0 % (13.4-35.0) L 05/12/21 04:08 Monocytes % (Manual) 3.0 % (0.0-7.3) 05/12/21 04:08 Eosinophils % (Manual) 1.0 % (0.0-4.3) 05/12/21 04:08 Nucleated RBC % Not Reportable 05/12/21 04:08 Seg Neutrophils # 6.7 K/mm3 (1.8-7.7) 05/15/21 04:45 Seg Neutrophils # Man 19.5 K/mm3 (1.8-7.7) H 05/12/21 04:08 Band Neutrophils # 1.9 K/mm3 05/12/21 04:08 Lymphocytes # (Manual) 0.5 K/mm3 (1.2-5.4) L 05/12/21 04:08 Abs React Lymphs (Man) 0.0 K/mm3 05/12/21 04:08 Monocytes # (Manual) 0.7 K/mm3 (0.0-0.8) 05/12/21 04:08 Eosinophils # (Manual) 0.2 K/mm3 (0.0-0.4) 05/12/21 04:08 Basophils # (Manual) 0.0 K/mm3 (0.0-0.1) 05/12/21 04:08 Metamyelocytes # 0.0 K/mm3 05/12/21 04:08 Myelocytes # 0.0 K/mm3 05/12/21 04:08 Promyelocytes # 0.0 K/mm3 05/12/21 04:08 Blast Cells # 0.0 K/mm3 05/12/21 04:08 WBC Morphology Not Reportable 05/12/21 04:08 Hypersegmented Neuts Not Reportable 05/12/21 04:08 Hyposegmented Neuts Not Reportable 05/12/21 04:08 Hypogranular Neuts Not Reportable 05/12/21 04:08 Smudge Cells Not Reportable 05/12/21 04:08 Toxic Granulation Not Reportable 05/12/21 04:08 Toxic Vacuolation Not Reportable 05/12/21 04:08 Dohle Bodies Not Reportable 05/12/21 04:08 Pelger-Huet Anomaly Not Reportable 05/12/21 04:08 Elizabeth Rods Not Reportable 05/12/21 04:08 Platelet Estimate Consistent w auto 05/12/21 04:08 Clumped Platelets Not Reportable 05/12/21 04:08 Plt Clumps, EDTA Not Reportable 05/12/21 04:08 Large Platelets Not Reportable 05/12/21 04:08 Giant Platelets Not Reportable 05/12/21 04:08 Platelet Satelliting Not Reportable 05/12/21 04:08 Plt Morphology Comment Not Reportable 05/12/21 04:08 RBC Morphology Not Reportable 05/12/21 04:08 Dimorphic RBCs Not Reportable 05/12/21 04:08 Polychromasia Not Reportable 05/12/21 04:08 Hypochromasia Not Reportable 05/12/21 04:08 Poikilocytosis Not Reportable 05/12/21 04:08 Anisocytosis 1+ 05/12/21 04:08 Microcytosis Not Reportable 05/12/21 04:08 Macrocytosis Not Reportable 05/12/21 04:08 Spherocytes Not Reportable 05/12/21 04:08 Pappenheimer Bodies Not Reportable 05/12/21 04:08 Sickle Cells Not Reportable 05/12/21 04:08 Target Cells Not Reportable 05/12/21 04:08 Tear Drop Cells Not Reportable 05/12/21 04:08 Ovalocytes Not Reportable 05/12/21 04:08 Helmet Cells Not Reportable 05/12/21 04:08 [place] Bodies Not Reportable 05/12/21 04:08 [place] Rings Not Reportable 05/12/21 04:08 [place] Cells Not Reportable 05/12/21 04:08 Bite Cells Not Reportable 05/12/21 04:08 Crenated Cell Not Reportable 05/12/21 04:08 Elliptocytes Not Reportable 05/12/21 04:08 Acanthocytes (Spur) Not Reportable 05/12/21 04:08 Rouleaux Not Reportable 05/12/21 04:08 Hemoglobin C Crystals Not Reportable 05/12/21 04:08 Schistocytes Not Reportable 05/12/21 04:08 Malaria parasites Not Reportable 05/12/21 04:08 [place] Bodies Not Reportable 05/12/21 04:08 Hem Pathologist Commnt No 05/12/21 04:08 PT 16.0 Sec. (12.2-14.9) H 05/11/21 05:43 INR 1.16 (0.87-1.13) H 05/11/21 05:43 ABG pH 7.387 pH Units (7.350-7.450) 05/14/21 10:25 ABG pCO2 46.3 mm Hg 05/14/21 10:25 ABG pO2 76.0 mm Hg (80.0-90.0) L 05/14/21 10:25 ABG HCO3 27.2 mmol/L (20.0-26.0) H 05/14/21 10:25 ABG O2 Saturation 96.2 % (95.0-99.0) 05/14/21 10:25 ABG O2 Content 15.3 (0.0-44) 05/14/21 10:25 ABG Base Excess 1.7 mmol/L (-2.0-3.0) 05/14/21 10:25 ABG Hemoglobin 11.5 gm/dl (12.0-16.0) L 05/14/21 10:25 ABG Carboxyhemoglobin 1.1 % (0.0-5.0) 05/14/21 10:25 ABG Methemoglobin 0.7 % (0.0-1.5) 05/14/21 10:25 Oxyhemoglobin 94.4 % (95.0-99.0) L 05/14/21 10:25 FiO2 10 % 05/14/21 10:25 Sodium 146 mmol/L (137-145) H 05/16/21 04:31 Potassium 3.2 mmol/L (3.6-5.0) L 05/16/21 04:31 Chloride 106.1 mmol/L (98-107) 05/16/21 04:31 Carbon Dioxide 30 mmol/L (22-30) 05/16/21 04:31 Anion Gap 13 mmol/L 05/16/21 04:31 BUN 5 mg/dL (7-17) L 05/16/21 04:31 Creatinine 0.5 mg/dL (0.6-1.2) L 05/16/21 04:31 Estimated GFR > 60 ml/min 05/16/21 04:31 BUN/Creatinine Ratio 10 % 05/16/21 04:31 Glucose 77 mg/dL (65-100) 05/16/21 04:31 POC Glucose 100 mg/dL (70-105) 05/16/21 11:48 Hemoglobin A1c 5.2 % (4-6) 05/12/21 04:08 Lactic Acid 3.30 mmol/L (0.7-2.0) H* 05/12/21 Unknown Calcium 7.2 mg/dL (8.4-10.2) L 05/16/21 04:31 Phosphorus 2.30 mg/dL (2.5-4.5) L 05/16/21 04:31 Magnesium 1.70 mg/dL (1.7-2.3) 05/16/21 04:31 Total Bilirubin 1.90 mg/dL (0.1-1.2) H 05/15/21 04:45 Direct Bilirubin 1.4 mg/dL (0-0.2) H 05/11/21 05:43 Indirect Bilirubin 0.7 mg/dL 05/11/21 05:43 AST 55 units/L (5-40) H 05/15/21 04:45 ALT 28 units/L (7-56) 05/15/21 04:45 Alkaline Phosphatase 231 units/L (35-129) H 05/15/21 04:45 Total Protein 5.4 g/dL (6.3-8.2) L 05/15/21 04:45 Albumin 1.5 g/dL (3.9-5) L 05/15/21 04:45 Albumin/Globulin Ratio 0.4 % 05/15/21 04:45 Lipase 3 units/L (13-60) L 05/11/21 05:43 Urine Color [place] (Yellow) 05/11/21 11:18 Urine Turbidity Clear (Clear) 05/11/21 11:18 Urine pH 6.0 (5.0-7.0) 05/11/21 11:18 Ur Specific [place] 1.035 (1.003-1.030) H 05/11/21 11:18 Urine Protein 100 mg/dl mg/dL (Negative) 05/11/21 11:18 Urine Glucose (UA) Neg mg/dL (Negative) 05/11/21 11:18 Urine Ketones Neg mg/dL (Negative) 05/11/21 11:18 Urine Blood Neg (Negative) 05/11/21 11:18 Urine Nitrite Neg (Negative) 05/11/21 11:18 Urine Bilirubin Neg (Negative) 05/11/21 11:18 Urine Urobilinogen < 2.0 mg/dL (<2.0) 05/11/21 11:18 Ur Leukocyte Esterase Neg (Negative) 05/11/21 11:18 Urine WBC (Auto) 2.0 /HPF (0.0-6.0) 05/11/21 11:18 Urine RBC (Auto) 1.0 /HPF (0.0-6.0) 05/11/21 11:18 Urine Mucus Few /HPF 05/11/21 11:18 Vancomycin Trough 25.3 ug/mL (5.0-20.0) H 05/14/21 15:20 Coronavirus (PCR) Negative (Negative) 05/12/21 10:16 Hepatitis A IgM Ab Non-reactive (NonReactive) 05/12/21 12:30 Hep Bs Antigen Nonreactive (Negative) 05/12/21 12:30 Hep B Core IgM Ab Non-reactive (NonReactive) 05/12/21 12:30 Hepatitis C Antibody Non-reactive (NonReactive) 05/12/21 12:30 Microbiology: Microbiology 05/15/21 09:12 Peripheral/Venous Blood Culture - Preliminary NO GROWTH AFTER 24 HOURS 05/15/21 09:12 Peripheral/Venous Blood Culture - Preliminary NO GROWTH AFTER 24 HOURS 05/11/21 12:28 Peripheral/Venous Blood Culture - Preliminary NO GROWTH AFTER 4 DAYS 05/11/21 12:28 Peripheral/Venous Blood Culture - Preliminary NO GROWTH AFTER 4 DAYS Rivas/IV: Voiding Method Indwelling Catheter Active Medications - Current Medications Current Medications: Generic Name Dose Route Start Last Admin Trade Name Freq PRN Reason Stop Dose Admin Acetaminophen 650 mg 05/11/21 21:40 05/14/21 20:06 Acetaminophen 325 Mg Tab PO 650 mg Q4H PRN Administration Pain MILD(1-3)/Fever >100.5/WOODS Arformoterol Tartrate 15 mcg 05/12/21 08:00 05/16/21 10:00 Arformoterol 15 Mcg/2 Ml Nebu IH 15 mcg Q12HRT ABRAHAN Administration Benzonatate 100 mg 05/12/21 15:53 05/13/21 17:01 Benzonatate 100 Mg Cap PO 100 mg Q8HR PRN Administration Cough Budesonide 0.5 mg 05/12/21 08:00 05/16/21 10:00 Budesonide 0.5 Mg/2 Ml Nebu IH 0.5 mg Q12HRT ABRAHAN Administration Cetirizine HCl 10 mg 05/12/21 10:00 05/16/21 09:48 Cetirizine 10 Mg Tab PO 10 mg QDAY ABRAHAN Administration Cholecalciferol 5,000 unit 05/12/21 10:00 05/16/21 09:48 Cholecalciferol (Vit D3) 5,000 Unit Tab PO 5,000 unit DAILY ABRAHAN Administration Dexamethasone 6 mg 05/16/21 13:00 Dexamethasone 4 Mg/Ml Vial IV Q24HR ABRAHAN Dextrose 50 ml 05/12/21 11:57 05/16/21 08:30 Dextrose 50% In Water (25gm) 50 Ml Syringe IV 20 ml Q30MIN PRN Administration Hypoglycemia Protocol Enoxaparin Sodium 40 mg 05/14/21 22:00 05/15/21 21:26 Enoxaparin 40 Mg/0.4 Ml Inj SUB-Q 40 mg QDAY@2200 ABRAHAN Administration Protocol Furosemide 20 mg 05/16/21 13:00 Furosemide 20 Mg/2 Ml Inj IV 05/18/21 10:01 DAILY ABRAHAN NORepinephrine/NS 8 MG-250 ML 8 mg in 250 mls @ 3.75 mls/hr 05/11/21 15:00 1 07/17/20 06:01 Norepinephrine/Ns 8 Mg-250 Ml (Double Conc) IV 4 mcg/min TITRATE ABRAHAN 7.5 mls/hr Administration Protocol 2 MCG/MIN Vasopressin 20 unit/ Sodium 101 mls @ 9.09 mls/hr 05/11/21 20:00 05/12/21 17:18 Chloride IV Infused TITR ABRAHAN Titration Protocol 0.03 UNITS/MIN MEROPENEM/NS 1 GRAM/100 ML 1 gram in 100 mls @ 100 mls/hr 05/15/21 15:00 05/16/21 06:06 Merrem/Ns 1 Gram/100 Ml IV 100 mls/hr Q8H ABRAHAN Administration Protocol Dextrose 1,000 mls @ 30 mls/hr 05/16/21 09:00 05/16/21 09:43 D10w IV 30 mls/hr DIRECT ABRAHAN Administration Potassium Phosphate 15 mmol/ 255 mls @ 125 mls/hr 05/16/21 11:30 Sodium Chloride IV 05/16/21 14:30 ONCE@1130 ABRAHAN Magnesium Sulfate 2 gm in 50 mls @ 25 mls/hr 05/16/21 09:30 05/16/21 09:51 Magnesium Sulfate 2gm/50ml IV 05/16/21 13:30 25 mls/hr ONCE@0930 ABRAHAN Administration Metoclopramide HCl 10 mg 05/11/21 21:40 Metoclopramide 10 Mg/2 Ml Inj IV Q6H PRN Nausea And Vomiting Montelukast Sodium 10 mg 05/12/21 18:00 05/15/21 17:44 Montelukast 10 Mg Tab PO Not Given QPM [facility] Morphine Sulfate 2 mg 05/11/21 21:40 05/16/21 08:32 Morphine 2 Mg/1 Ml Inj IV 2 mg Q4H PRN Administration Pain, Moderate (4-6) Ondansetron HCl 4 mg 05/11/21 21:40 05/15/21 09:57 Ondansetron 4 Mg/2 Ml Inj IV 4 mg Q8H PRN Administration Nausea And Vomiting Pantoprazole Sodium 40 mg 05/15/21 10:00 05/16/21 09:48 Pantoprazole 40 Mg Inj IV 40 mg QDAY ABRAHAN Administration Sodium Chloride 10 ml 05/11/21 22:00 05/16/21 09:47 Sodium Chloride 0.9% 10 Ml Flush Syringe IV 10 ml BID ABRAHAN Administration Sodium Chloride 10 ml 05/11/21 21:40 05/15/21 00:35 Sodium Chloride 0.9% 10 Ml Flush Syringe IV 10 ml PRN PRN Administration LINE FLUSH Nutrition/Malnutrition Assess - Dietary Evaluation Nutrition/Malnutrition Findings: Nutrition Notes Start: 05/13/21 09:47 Freq: Status: Active Protocol: Document 05/13/21 09:47 MK (Rec: 05/13/21 09:50 MK [id number]) Nutrition Notes Need for Assessment generated from: field adjuster,MST Initial or Follow up Brief Note Current Diagnosis COPD,Sepsis Other Pertinent Diagnosis hypotension, pancreatic cancer s/p radiation Current Diet NPO Height 5 ft 2 in Weight 78.4 kg [place] Body Weight (kg) 50.00 BMI 31.6 Subjective/Other Information RN screen for MST. Unable to contact pt. Pt with N/V on admission. Nutrition Intervention Follow-Up By: 05/15/21 Additional Comments F/U: assessment and diet advancement
[2021-05-16] MEDS: dexAMETHasone 4 MG/ML VIAL IV SCH (13:30)
[2021-05-16] MEDS: FUROSEMIDE 20 MG/2 ML INJ IV SCH (13:31)
[2021-05-16] MEDS: MONTELUKAST 10 MG TAB PO SCH (18:35)
[2021-05-16] MEDS ORDERED: AMINO ACIDS 4.25%/DEXTROSE 10% 2,000 ML IV SCH (20:00)
[2021-05-16] MEDS: ENOXAPARIN 40 MG/0.4 ML INJ SUB-Q SCH (21:00)
[2021-05-17] MEDS: MORPHINE 2 MG/1 ML INJ IV PRN ×4 (00:19→21:05)
[2021-05-17] MEDS: NORepinephrine/NS 8 MG-250 ML 8 MG/250 ML INFUS..BTL IV SCH (00:56)
[2021-05-17 05:26] LABS: Hemoglobin 10.3 gm/dl (10.1-14.3); Mean Corpuscular HGB Conc 32 % (30-34); Mean Corpuscular Volume 98 fl (79-97); Platelet Count 114 K/mm3 (140-440); Red Blood Count 3.26 M/mm3 (3.65-5.03); Red Cell Distribution Width 18.9 % (13.2-15.2)
[2021-05-17 05:55] LABS: Blood Urea Nitrogen 5 mg/dL (7-17); Calcium 7.7 mg/dL (8.4-10.2); Hemolysis Index 5
[2021-05-17 06:05] LABS: Albumin 1.6 g/dL (3.9-5); BUN/Creatinine Ratio 8; Bilirubin,Direct 1.5 mg/dL (0-0.2)
[2021-05-17] MEDS: MEROPENEM/NS 1 GRAM/100 ML 1 GRAM/100 ML BAG IV SCH ×3 (07:30→23:46)
[2021-05-17] MEDS: ARFORMOTEROL 15 MCG/2 ML NEBU IH SCH ×2 (09:04→20:22)
[2021-05-17] MEDS: BUDESONIDE 0.5 MG/2 ML NEBU IH SCH ×2 (09:04→20:22)
[2021-05-17] MEDS ORDERED: POTASSIUM PHOSPHATE 30 MMOL in SODIUM CHLORIDE 0.9% 500 ML 500 ML IV ONE (09:30)
[2021-05-17] MEDS: PANTOPRAZOLE 40 MG INJ IV SCH (10:30)
[2021-05-17] MEDS: dexAMETHasone 4 MG/ML VIAL IV SCH (10:31)
[2021-05-17] MEDS: FUROSEMIDE 20 MG/2 ML INJ IV SCH (10:31)
[2021-05-17] MEDS: CETIRIZINE 10 MG TAB PO SCH (10:45)
[2021-05-17] MEDS: CHOLECALCIFEROL (VIT D3) 5,000 UNIT TAB PO SCH (10:46)
--- NOTE | 2021-05-17 11:27 | Progress Note ---
Assessment and Plan Septic shock possible hepatobiliary source Lactic acidosis h/o pulmonary fibrosis, Acute on chronic respiratory failure on home O2 of 2 L nasal cannula Transaminitis, biliary dilation, r/o cholangitis Hyperchloremia, metabolic acidosis, hypokalemia Hypoglycemia h/o pancreatic head cancer- chemoradiation therapy h/o Hypertension - supervised ice-chips ok - continue Dexamethasone re: Pulmonary Fibrosis exacerbation (h/o Solumedrol allergy but was tolerating Prednisone) - continue BIPAP as intubation is fraught with risk of dependency - intubate if decompensates - continue care as below otherwise; - wean Levophed for target MAP > 65 mmHg - refusing port-a-cath access; unable to place PICC line; will continue Femoral CVL X 24 hours and re-assess - MRCP pending as she remains tenuous from a respiratory standpoint - continue anti-infective's; de-escalate per ID recommendations - continue accuchecks with glycemic control per SSI (While critically ill target blood glucose of 140-180 mg/dL; avoid hypoglycemia) - continue to wean supplemental oxygen for target O2 sat's > 90% acutely - aspiration precautions - bronchodilators with pulmonary hygiene per RT - avoid nephrotoxins, renally dose all medications - prn analgesia per pain score - Maintenance of sleep-wake cycle, avoid delirium - G.I. & VTE prophylaxis - PT/OT/ROM exercises - mobility protocols for pressure ulcer prophylaxis - Monitor hemodynamics closely - continue other care per attending / other consultants - discharge planning ongoing concurrently .... Re-evaluate in am & prn CONDITION: CRITICAL PROGNOSIS: GUARDED CODE STATUS: FULL CODE The high probability of a clinically significant, sudden or life-threatening deterioration of the [respiratory, cardiovascular, GI & neurologic] system(s) required my full and direct attention, intervention and personal management. The aggregate critical care time was [32] minutes without overlap. Time includes spent on; [x] Data Review and interpretation [x] Patient assessment and monitoring of vital signs [x] Documentation [x] Medication orders and management Subjective Date of service: 05/17/21 Principal diagnosis: Septic shock; Pulm fibrosis; Hypoxemic resp failure; COVID- 19 infxn Interval history: Patient is seen today for: Septic shock; pulmonary fibrosis; Acute on chronic hypoxemic respiratory failure; Transaminitis; h/o pancreatic head cancer; HTN Seen and examined at bedside; 24hour events reviewed; nursing and respiratory care staff consulted; no adverse overnight events reported to me; resting in bed; remains on BIPAP; very agitated this am when asking for water and when we offered to discuss care with family; remains coherent; no emesis or overt aspiration; on TPN now also Objective Vital Signs - 12hr 05/16/21 05/16/21 05/16/21 23:30 23:40 23:45 Temperature Pulse Rate 104 H 103 H 102 H Pulse Rate [ Anterior Bilateral Throughout] Pulse Rate [ From Monitor] Respiratory 26 H 41 H 27 H Rate Respiratory Rate [Anterior Bilateral Throughout] Blood Pressure 113/75 113/75 96/65 O2 Sat by Pulse 100 100 100 Oximetry 05/16/21 05/17/21 05/17/21 23:48 00:00 00:15 Temperature 98.7 F Pulse Rate 103 H 103 H 103 H Pulse Rate [ Anterior Bilateral Throughout] Pulse Rate [ 114 H From Monitor] Respiratory 26 H 14 27 H Rate Respiratory Rate [Anterior Bilateral Throughout] Blood Pressure 96/65 103/76 114/75 O2 Sat by Pulse 100 100 100 Oximetry 05/17/21 05/17/21 05/17/21 00:30 00:45 01:00 Temperature Pulse Rate 102 H 103 H 100 H Pulse Rate [ Anterior Bilateral Throughout] Pulse Rate [ From Monitor] Respiratory 21 26 H 25 H Rate Respiratory Rate [Anterior Bilateral Throughout] Blood Pressure 101/64 113/63 97/67 O2 Sat by Pulse 100 100 100 Oximetry 05/17/21 05/17/21 05/17/21 01:15 01:30 01:45 Temperature Pulse Rate 100 H 100 H 98 H Pulse Rate [ Anterior Bilateral Throughout] Pulse Rate [ From Monitor] Respiratory 24 26 H 24 Rate Respiratory Rate [Anterior Bilateral Throughout] Blood Pressure 99/72 106/73 107/76 O2 Sat by Pulse 100 100 100 Oximetry 05/17/21 05/17/21 05/17/21 02:00 02:03 02:15 Temperature Pulse Rate 99 H 100 H Pulse Rate [ Anterior Bilateral Throughout] Pulse Rate [ From Monitor] Respiratory 34 H 24 25 H Rate Respiratory Rate [Anterior Bilateral Throughout] Blood Pressure 112/79 117/75 O2 Sat by Pulse 94 100 100 Oximetry 05/17/21 05/17/21 05/17/21 02:30 02:45 03:00 Temperature Pulse Rate 99 H 102 H 97 H Pulse Rate [ Anterior Bilateral Throughout] Pulse Rate [ From Monitor] Respiratory 21 25 H 22 Rate Respiratory Rate [Anterior Bilateral Throughout] Blood Pressure 103/76 106/69 99/65 O2 Sat by Pulse 100 100 100 Oximetry 05/17/21 05/17/21 05/17/21 03:15 03:30 03:45 Temperature Pulse Rate 97 H 96 H 79 Pulse Rate [ Anterior Bilateral Throughout] Pulse Rate [ From Monitor] Respiratory 22 22 21 Rate Respiratory Rate [Anterior Bilateral Throughout] Blood Pressure 109/78 98/69 104/66 O2 Sat by Pulse 100 100 100 Oximetry 05/17/21 05/17/21 05/17/21 04:00 04:11 04:15 Temperature 97.4 F L Pulse Rate 100 H 102 H 101 H Pulse Rate [ Anterior Bilateral Throughout] Pulse Rate [ 114 H From Monitor] Respiratory 21 34 H 22 Rate Respiratory Rate [Anterior Bilateral Throughout] Blood Pressure 96/72 96/72 108/74 O2 Sat by Pulse 100 100 100 Oximetry 05/17/21 05/17/21 05/17/21 04:30 04:45 05:00 Temperature Pulse Rate 98 H 98 H 80 Pulse Rate [ Anterior Bilateral Throughout] Pulse Rate [ From Monitor] Respiratory 19 18 14 Rate Respiratory Rate [Anterior Bilateral Throughout] Blood Pressure 98/75 86/68 92/62 O2 Sat by Pulse 100 100 100 Oximetry 05/17/21 05/17/21 05/17/21 05:15 05:30 05:45 Temperature Pulse Rate 81 79 80 Pulse Rate [ Anterior Bilateral Throughout] Pulse Rate [ From Monitor] Respiratory 13 16 22 Rate Respiratory Rate [Anterior Bilateral Throughout] Blood Pressure 105/72 105/76 108/65 O2 Sat by Pulse 100 100 100 Oximetry 05/17/21 05/17/21 05/17/21 06:00 06:15 06:30 Temperature Pulse Rate 81 81 85 Pulse Rate [ Anterior Bilateral Throughout] Pulse Rate [ From Monitor] Respiratory 25 H 20 29 H Rate Respiratory Rate [Anterior Bilateral Throughout] Blood Pressure 105/72 104/64 116/70 O2 Sat by Pulse 100 100 99 Oximetry 05/17/21 05/17/21 05/17/21 06:45 07:00 07:15 Temperature Pulse Rate 81 101 H 84 Pulse Rate [ Anterior Bilateral Throughout] Pulse Rate [ From Monitor] Respiratory 21 29 H 19 Rate Respiratory Rate [Anterior Bilateral Throughout] Blood Pressure 108/69 112/78 119/74 O2 Sat by Pulse 100 100 100 Oximetry 05/17/21 05/17/21 05/17/21 07:30 07:45 08:00 Temperature 97.4 F L Pulse Rate 77 79 Pulse Rate [ Anterior Bilateral Throughout] Pulse Rate [ 85 From Monitor] Respiratory 17 28 H Rate Respiratory Rate [Anterior Bilateral Throughout] Blood Pressure 98/69 117/66 105/75 O2 Sat by Pulse 100 100 100 Oximetry 05/17/21 05/17/21 05/17/21 08:15 08:30 08:45 Temperature Pulse Rate 77 77 Pulse Rate [ Anterior Bilateral Throughout] Pulse Rate [ From Monitor] Respiratory 19 16 Rate Respiratory Rate [Anterior Bilateral Throughout] Blood Pressure 101/72 105/73 104/72 O2 Sat by Pulse 100 100 100 Oximetry 05/17/21 05/17/21 05/17/21 09:00 09:02 09:04 Temperature Pulse Rate 77 79 Pulse Rate [ 79 Anterior Bilateral Throughout] Pulse Rate [ From Monitor] Respiratory 30 H 28 H Rate Respiratory 28 H Rate [Anterior Bilateral Throughout] Blood Pressure 101/74 101/71 O2 Sat by Pulse 100 100 Oximetry 05/17/21 05/17/21 05/17/21 09:15 09:30 09:45 Temperature Pulse Rate 82 80 75 Pulse Rate [ Anterior Bilateral Throughout] Pulse Rate [ From Monitor] Respiratory 23 24 14 Rate Respiratory Rate [Anterior Bilateral Throughout] Blood Pressure 101/75 105/74 109/72 O2 Sat by Pulse 100 100 100 Oximetry 05/17/21 05/17/21 05/17/21 10:00 10:15 10:30 Temperature Pulse Rate 77 78 78 Pulse Rate [ Anterior Bilateral Throughout] Pulse Rate [ From Monitor] Respiratory 19 20 18 Rate Respiratory Rate [Anterior Bilateral Throughout] Blood Pressure 105/75 95/68 107/68 O2 Sat by Pulse 100 100 100 Oximetry 05/17/21 05/17/21 10:45 11:00 Temperature Pulse Rate 85 81 Pulse Rate [ Anterior Bilateral Throughout] Pulse Rate [ From Monitor] Respiratory 27 H 23 Rate Respiratory Rate [Anterior Bilateral Throughout] Blood Pressure 110/70 110/62 O2 Sat by Pulse 100 100 Oximetry Constitutional: alert, appears uncomfortable, other (mildly increased respiratory effort at rest on BIPAP 15/10 FIO2 100%) Eyes: non-icteric ENT: oropharynx moist, other (BIPAP FFM) Neck: supple, no lymphadenopathy, no JVD Effort: mildly labored Ascultation: Bilateral: diminished breath sounds, rales Percussion: Bilateral: not dull Cardiovascular: regular rate and rhythm, other (S1,S2) Gastrointestinal: normoactive bowel sounds, hypoactive bowel sounds, soft, non- distended (protuberant) Integumentary: normal Extremities: no cyanosis, no edema, pulses normal, other (right femoral CVL) Neurologic: normal mental status, non-focal exam, pupils equal and round Psychiatric: mood appropriate, affect normal CBC and BMP: 05/18/21 04:00 05/18/21 09:00 ABG, PT/INR, D-dimer: ABG ABG pH 7.387 pH Units (7.350-7.450) 05/14/21 10:25 ABG pCO2 46.3 mm Hg 05/14/21 10:25 ABG pO2 76.0 mm Hg (80.0-90.0) L 05/14/21 10:25 ABG O2 Saturation 96.2 % (95.0-99.0) 05/14/21 10:25 PT/INR, D-dimer PT 16.0 Sec. (12.2-14.9) H 05/11/21 05:43 INR 1.16 (0.87-1.13) H 05/11/21 05:43 Abnormal lab findings: Abnormal Labs 05/11/21 05/11/21 05/11/21 05:43 05:43 05:43 WBC RBC Hgb MCV 98 H RDW 17.7 H Plt Count Lymph % (Auto) 10.8 L Lymph # (Auto) 0.6 L Seg Neutrophils % 84.1 H Seg Neuts % (Manual) Lymphocytes % (Manual) Seg Neutrophils # Man Lymphocytes # (Manual) PT 16.0 H INR 1.16 H ABG pO2 ABG HCO3 ABG Hemoglobin Oxyhemoglobin Sodium Potassium Chloride Carbon Dioxide 21 L BUN 4 L Creatinine 0.4 L Glucose POC Glucose Lactic Acid Calcium 8.3 L Phosphorus Magnesium Total Bilirubin 2.10 H Direct Bilirubin 1.4 H AST 335 H ALT 57 H Alkaline Phosphatase 339 H Total Protein Albumin 2.4 L Lipase 3 L Ur Specific Arnold Vancomycin Trough 05/11/21 05/11/21 05/12/21 11:18 12:28 04:08 WBC RBC Hgb MCV RDW Plt Count Lymph % (Auto) Lymph # (Auto) Seg Neutrophils % Seg Neuts % (Manual) Lymphocytes % (Manual) Seg Neutrophils # Man Lymphocytes # (Manual) PT INR ABG pO2 ABG HCO3 ABG Hemoglobin Oxyhemoglobin Sodium Potassium Chloride Carbon Dioxide BUN Creatinine Glucose POC Glucose Lactic Acid 4.20 H* 4.50 H* Calcium Phosphorus Magnesium Total Bilirubin Direct Bilirubin AST ALT Alkaline Phosphatase Total Protein Albumin Lipase Ur Specific Arnold 1.035 H Vancomycin Trough 05/12/21 05/12/21 05/12/21 04:08 04:08 09:47 WBC 22.8 H RBC 3.39 L Hgb MCV 98 H RDW 17.7 H Plt Count Lymph % (Auto) Lymph # (Auto) Seg Neutrophils % Seg Neuts % (Manual) 85.5 H Lymphocytes % (Manual) 2.0 L Seg Neutrophils # Man 19.5 H Lymphocytes # (Manual) 0.5 L PT INR ABG pO2 ABG HCO3 ABG Hemoglobin Oxyhemoglobin Sodium Potassium 3.3 L Chloride 108.9 H Carbon Dioxide 17 L BUN 4 L Creatinine 0.5 L Glucose 106 H POC Glucose Lactic Acid 2.60 H* Calcium 6.4 L D Phosphorus Magnesium Total Bilirubin 2.10 H Direct Bilirubin AST 156 H ALT 61 H Alkaline Phosphatase 317 H Total Protein 5.4 L D Albumin 1.8 L Lipase Ur Specific Arnold Vancomycin Trough 05/12/21 05/12/21 05/12/21 11:47 12:30 12:36 WBC RBC Hgb MCV RDW Plt Count Lymph % (Auto) Lymph # (Auto) Seg Neutrophils % Seg Neuts % (Manual) Lymphocytes % (Manual) Seg Neutrophils # Man Lymphocytes # (Manual) PT INR ABG pO2 ABG HCO3 ABG Hemoglobin Oxyhemoglobin Sodium Potassium Chloride Carbon Dioxide BUN Creatinine Glucose POC Glucose 59 L 120 H Lactic Acid 2.50 H* Calcium Phosphorus Magnesium Total Bilirubin Direct Bilirubin AST ALT Alkaline Phosphatase Total Protein Albumin Lipase Ur Specific Arnold Vancomycin Trough 05/12/21 05/12/21 05/13/21 23:45 Unknown 04:00 WBC 19.8 H RBC 3.52 L Hgb MCV 98 H RDW 18.5 H Plt Count Lymph % (Auto) Lymph # (Auto) Seg Neutrophils % Seg Neuts % (Manual) Lymphocytes % (Manual) Seg Neutrophils # Man Lymphocytes # (Manual) PT INR ABG pO2 ABG HCO3 ABG Hemoglobin Oxyhemoglobin Sodium Potassium Chloride Carbon Dioxide BUN Creatinine Glucose POC Glucose 119 H Lactic Acid 3.30 H* Calcium Phosphorus Magnesium Total Bilirubin Direct Bilirubin AST ALT Alkaline Phosphatase Total Protein Albumin Lipase Ur Specific Arnold Vancomycin Trough 05/13/21 05/13/21 05/13/21 04:00 05:42 12:19 WBC RBC Hgb MCV RDW Plt Count Lymph % (Auto) Lymph # (Auto) Seg Neutrophils % Seg Neuts % (Manual) Lymphocytes % (Manual) Seg Neutrophils # Man Lymphocytes # (Manual) PT INR ABG pO2 ABG HCO3 ABG Hemoglobin Oxyhemoglobin Sodium Potassium 3.4 L Chloride 107.1 H Carbon Dioxide 19 L BUN 4 L Creatinine 0.4 L Glucose 157 H POC Glucose 143 H 110 H Lactic Acid Calcium 7.4 L D Phosphorus 1.60 L Magnesium 1.50 L Total Bilirubin 1.40 H Direct Bilirubin AST 95 H ALT Alkaline Phosphatase 328 H Total Protein 5.5 L Albumin 1.6 L Lipase Ur Specific Arnold Vancomycin Trough 05/14/21 05/14/21 05/14/21 06:15 06:15 10:25 WBC 11.7 H RBC 3.41 L Hgb MCV 98 H RDW 18.6 H Plt Count Lymph % (Auto) Lymph # (Auto) Seg Neutrophils % Seg Neuts % (Manual) Lymphocytes % (Manual) Seg Neutrophils # Man Lymphocytes # (Manual) PT INR ABG pO2 76.0 L ABG HCO3 27.2 H ABG Hemoglobin 11.5 L Oxyhemoglobin 94.4 L Sodium Potassium 3.2 L Chloride Carbon Dioxide BUN 6 L Creatinine 0.5 L Glucose 103 H POC Glucose Lactic Acid Calcium 7.3 L Phosphorus 1.70 L Magnesium Total Bilirubin Direct Bilirubin AST 66 H ALT Alkaline Phosphatase 295 H Total Protein 5.3 L Albumin 1.8 L Lipase Ur Specific Arnold Vancomycin Trough 05/14/21 05/14/21 05/14/21 15:20 15:20 17:26 WBC RBC Hgb MCV RDW Plt Count Lymph % (Auto) Lymph # (Auto) Seg Neutrophils % Seg Neuts % (Manual) Lymphocytes % (Manual) Seg Neutrophils # Man Lymphocytes # (Manual) PT INR ABG pO2 ABG HCO3 ABG Hemoglobin Oxyhemoglobin Sodium 146 H D Potassium Chloride 108.4 H Carbon Dioxide BUN 5 L Creatinine 0.5 L Glucose POC Glucose 63 L Lactic Acid Calcium 7.6 L Phosphorus Magnesium Total Bilirubin Direct Bilirubin AST ALT Alkaline Phosphatase Total Protein Albumin Lipase Ur Specific Arnold Vancomycin Trough 25.3 H 05/14/21 05/15/21 05/15/21 21:27 00:03 00:29 WBC RBC Hgb MCV RDW Plt Count Lymph % (Auto) Lymph # (Auto) Seg Neutrophils % Seg Neuts % (Manual) Lymphocytes % (Manual) Seg Neutrophils # Man Lymphocytes # (Manual) PT INR ABG pO2 ABG HCO3 ABG Hemoglobin Oxyhemoglobin Sodium Potassium Chloride Carbon Dioxide BUN Creatinine Glucose POC Glucose 52 L 54 L 129 H Lactic Acid Calcium Phosphorus Magnesium Total Bilirubin Direct Bilirubin AST ALT Alkaline Phosphatase Total Protein Albumin Lipase Ur Specific Arnold Vancomycin Trough 05/15/21 05/15/21 05/15/21 04:45 04:45 11:58 WBC RBC 3.24 L Hgb MCV 98 H RDW 18.5 H Plt Count 122 L Lymph % (Auto) 7.4 L Lymph # (Auto) 0.6 L Seg Neutrophils % 81.2 H Seg Neuts % (Manual) Lymphocytes % (Manual) Seg Neutrophils # Man Lymphocytes # (Manual) PT INR ABG pO2 ABG HCO3 ABG Hemoglobin Oxyhemoglobin Sodium 146 H Potassium 3.1 L Chloride 108.8 H Carbon Dioxide BUN 6 L Creatinine Glucose 121 H POC Glucose 68 L Lactic Acid Calcium 7.5 L Phosphorus 2.30 L D Magnesium Total Bilirubin 1.90 H Direct Bilirubin AST 55 H ALT Alkaline Phosphatase 231 H Total Protein 5.4 L Albumin 1.5 L Lipase Ur Specific Arnold Vancomycin Trough 05/15/21 05/16/21 05/16/21 13:50 00:06 00:43 WBC RBC Hgb MCV RDW Plt Count Lymph % (Auto) Lymph # (Auto) Seg Neutrophils % Seg Neuts % (Manual) Lymphocytes % (Manual) Seg Neutrophils # Man Lymphocytes # (Manual) PT INR ABG pO2 ABG HCO3 ABG Hemoglobin Oxyhemoglobin Sodium Potassium Chloride Carbon Dioxide BUN Creatinine Glucose POC Glucose 147 H 54 L 116 H Lactic Acid Calcium Phosphorus Magnesium Total Bilirubin Direct Bilirubin AST ALT Alkaline Phosphatase Total Protein Albumin Lipase Ur Specific Arnold Vancomycin Trough 05/16/21 05/16/21 05/16/21 04:31 04:31 05:58 WBC RBC 3.12 L Hgb 9.8 L MCV 98 H RDW 18.2 H Plt Count 115 L Lymph % (Auto) Lymph # (Auto) Seg Neutrophils % Seg Neuts % (Manual) Lymphocytes % (Manual) Seg Neutrophils # Man Lymphocytes # (Manual) PT INR ABG pO2 ABG HCO3 ABG Hemoglobin Oxyhemoglobin Sodium 146 H Potassium 3.2 L Chloride Carbon Dioxide BUN 5 L Creatinine 0.5 L Glucose POC Glucose 61 L Lactic Acid Calcium 7.2 L Phosphorus 2.30 L Magnesium Total Bilirubin Direct Bilirubin AST ALT Alkaline Phosphatase Total Protein Albumin Lipase Ur Specific Arnold Vancomycin Trough 05/16/21 05/16/21 05/17/21 08:11 23:42 04:15 WBC RBC Hgb MCV RDW Plt Count Lymph % (Auto) Lymph # (Auto) Seg Neutrophils % Seg Neuts % (Manual) Lymphocytes % (Manual) Seg Neutrophils # Man Lymphocytes # (Manual) PT INR ABG pO2 ABG HCO3 ABG Hemoglobin Oxyhemoglobin Sodium Potassium Chloride Carbon Dioxide BUN Creatinine Glucose POC Glucose 58 L 200 H Lactic Acid Calcium Phosphorus Magnesium Total Bilirubin 1.70 H Direct Bilirubin 1.5 H AST 43 H ALT Alkaline Phosphatase 196 H Total Protein 5.4 L Albumin 1.6 L Lipase Ur Specific Arnold Vancomycin Trough 05/17/21 05/17/21 05/17/21 04:15 04:15 05:07 WBC RBC 3.26 L Hgb MCV 98 H RDW 18.9 H Plt Count 114 L Lymph % (Auto) Lymph # (Auto) Seg Neutrophils % Seg Neuts % (Manual) Lymphocytes % (Manual) Seg Neutrophils # Man Lymphocytes # (Manual) PT INR ABG pO2 ABG HCO3 ABG Hemoglobin Oxyhemoglobin Sodium Potassium Chloride Carbon Dioxide 35 H BUN 5 L Creatinine Glucose 274 H POC Glucose 249 H Lactic Acid Calcium 7.7 L Phosphorus 1.50 L D Magnesium Total Bilirubin Direct Bilirubin AST ALT Alkaline Phosphatase Total Protein Albumin Lipase Ur Specific Arnold Vancomycin Trough Chest x-ray: pending Allied health notes reviewed: nursing
--- NOTE | 2021-05-17 11:58 | Progress Note ---
Assessment and Plan Assessment and plan: This is a 48-year-old female with past medical history of COPD, pancreatic cancer with radiation s/p pancreatic stent placement, pulmonary fibrosis, chronic respiratory failure on 2 L NC at home admitted with sepsis, transaminitis and lactic acidosis. Hospital Course to Date: 05/12: Patient remains on high-dose Levophed and vasopressin. Given 1 L LR bolus. GI would like an MRCP to be conducted which has been ordered. Patient cleared for sips of water. Added Tessalon due to severe cough. Potassium repleted. Covid PCR negative. 05/13: Remains on Levophed and vasopressin has been off since yesterday evening. Started on stress dose steroids. MRCP pending. Hypokalemia, hypomagnesemia and hypophosphatemia repleted. Liver enzymes trending down. Started on D5 nor mal saline yesterday. 05/14: Patient with worsen respiratory status this am, tachypneic with increased O2 requirement. On full support on the Bipap this am with worsening diffuse bilateral opacities on CXR, s/p X1 dose of IV lasix overnight. Patient remains afebrile with no leukocytosis. Will continue IV Lasix X3 doses, f/u CXR in the am. D/W CCM due to patient worsening respiratory status hold on MRCP for today. Patient is off Levophed this am, leave pressors on standby might need to be put back on low dose pressors with IV diuretic. Patient also noted with Rt. fem CVC which was inserted in the ED, most likely due to be change, unsuccessfult PICC by IVT today and patient is refusing Port access at this time. 05/15: Patient remains on continuous Bipap overnight, desat when bipap is remov ed for mouth care. Plan to wean Fio2 as tolerated for SPO2 goal above 90%. Febrile overnight, TMAX 101.4, on IV abx zosyn, repeat blood culture ordered. Low K and phosph repleted, repeat labs in the am. 05/16: Patient back on full support on the Bipap, still not tolerating FiO2 wean, patient desat in the 80s. D/w CCM plan to continue continuous bipap for now, patient going on over 4 days with no nutrition plan to initiate TPN tomorrow. D10w gtt added for hypoglycemia. Patient platelet continue to steadily drop, given patient's history with continue AC for now, H&H is stable, no s/s of any active bleeding. Electrolytes repleted, will continue to trend CBC, BMP, mg, and phos. MRCP canceled, plan to reorder once patient's respiratory status is more stable. 05/17: Patient remains on continuous Bipap. Patient remains on low dose Levophed, plan to wean off pressors as tolerated for a MAP above 65. Clinimix initiated overnight, plan to start TPN tonight. Hyperglycemic overnight, SSI was initiated. Low phos repleted, repeat lab in the am. Assessment and Plan #Neuro: NAD -Avoid delirium -Reorientation as needed -Maintain sleep-wake cycle #CV: Hypotension #h/o HTN -Schedule IV Lasix addedX 3days -Remains on Levophed gtt -Plan to wean off pressors as tolerated -Hold home htn medications -BP monitoring per protocol for MAP 65 and above -CCM consulted, appreciate recommendations #Respiratory: Acute on chronic respiratory failure #h/o pulmonary fibrosis #O2 Dependent at home -With worsen respiratory status this am, RR in the high 30s -05/14 Desated overnight, SPO2 in low 60 -Still on full support on Bipap- 90%, 09/03 -05/15 Repeat CXR this with no sig. change, diffuse bilateral opacities -IV lasix X3 days -Check ABG PRN -Plan to wean Fio2 as tolerated -Continue Supplemental oxygen and SPO2 monitoring for SPO2 goal above 90% -Repeat CXR in the am -Tessalon Perles as needed for cough -Pulmonary hygiene -CCM is following #GI: Transaminitis #H/o Pancreatic CA s/p stent placement #Biliary dilation #R/o cholangitis #Nausea/Vomiting- Resolved -CT abdomen/pelvis showed pancreatic cancer with metallic stent with possible occlusion, mild pelvic fluid and mild colonic thickening -GI consulted, patient recommendations -Plan for MRCP once respiratory status is stable, If stent occlusion/biliary obstruction would recommend IR consult for PTC drain per GI -Clinimix initiated overnight, TPN to start tonight -Nutrition consulted -Continue PPI -BR to start once taking p.o. -Acute hepatitis panel negative -PRN antiemetic for N/V #:hypophosphatemia #Hypokalemia-improved #hypomagnesemia-improved -Electrolytes repleted -Continue to monitor and replete electrolytes as needed -Strict intake and output -Purewick in place -Keep patient at a net negatibe balance, net -2.1L in last 24hrs -Daily weights -Renally dose meds, avoid nephrotoxins -Repeat Labs ordered #ID: Sepsis #Leukopcytosis #Lactic acidosis -Presented with elevated WBCs, hypotensive, and with lactic acidosis -COVID swab negative -Blood cultures x2 no growth to date -Leukocytosis downtrending, 8.3 this am -Febrile overnight, repeat blood culture ordered -ID consulted, appreciated recommendation -Continue IV Antibiotic per ID -Monitor WBC and fever curve #Heme/ONC:Thrombocytopenia #h/o Pancreatic Cancer #s/p pancreatic stent placement -S/p radiation -F/U with outpatient with own oncologist -possible stent occlusion, Plan for MRCP -Not a surgical candidate per GI -Right chest post not accessed, patient refused -RUE swelling- RUE doppler neg DVT -Patient with thrombocytopenia, slowly dropping since admit -Given patient's history, will continue AC for now -Continue AC-Lovenox and SCD to bilateral lower extremities while in bed -Trend CBC -Close monitor for s/s of active bleeding #Endo: #Hypoglycemia-resolved -BG as low as 58 -TPN initiated now hyperglycemic -SSI Q6hrs added -Continue Hypoglycemia protocol -Avoid hypoglycemia The high probability of a clinically significant, sudden or life threatening de terioration of the [Neuro, GI, endo] system(s) required my full and direct attention, intervention and personal management. The aggregate critical care time was [60] minutes. This time is in addition to time spent performing reported procedures but includes the following: [x] Data Review and interpretation [x] Patient assessment and monitoring of vital signs [x] Documentation [x] Medication orders and management Disposition Plan: ICU Total Time Spent with Patient (Minutes): 60 History Interval history: Patient seen and examined at the bedside. Patient is awake and alert, remains on continuous Bipap. Only on 2mcg of Levophed this am. Per RN patient desatted in the 40 this am, while the bipap was off for a short duration, patient's Fio2 was increased back to 100%. Hospitalist Physical - Constitutional Vitals: Temp Pulse Resp BP Pulse Ox 97.4 F L 81 23 110/62 100 05/17/21 08:00 05/17/21 11:00 05/17/21 11:00 05/17/21 11:00 05/17/21 11:00 General appearance: Present: mild distress, obese - EENT Eyes: Present: PERRL, EOM intact ENT: hearing intact - Neck Neck: Present: normal ROM - Respiratory Respiratory effort: labored, accessory muscle use Respiratory: bilateral: rhonchi - Cardiovascular Rhythm: regular Heart Sounds: Present: S1 & S2 - Extremities Extremities: no ischemia, pulses intact, pulses symmetrical Extremity abnormal: edema - Peripheral Assessment Generalized Edema Type: Non-pitting Edema Degree: 2+ Capillary Refill: < 3 seconds Skin Temperature: Warm Peripheral Pulses: within normal limits - Abdominal General gastrointestinal: soft, non-tender, normal bowel sounds - Integumentary Integumentary: Present: warm, dry - Psychiatric Psychiatric: cooperative, depressed - Neurologic Neurologic: moves all extremities - Allied Health Allied health notes reviewed: nursing Results - Labs CBC & Chem 7: 05/17/21 04:15 05/17/21 04:15 Labs: Laboratory Last Values WBC 8.3 K/mm3 (4.5-11.0) 05/17/21 04:15 RBC 3.26 M/mm3 (3.65-5.03) L 05/17/21 04:15 Hgb 10.3 gm/dl (10.1-14.3) 05/17/21 04:15 Hct 32.0 % (30.3-42.9) 05/17/21 04:15 MCV 98 fl (79-97) H 05/17/21 04:15 MCH 32 pg (28-32) 05/17/21 04:15 MCHC 32 % (30-34) 05/17/21 04:15 RDW 18.9 % (13.2-15.2) H 05/17/21 04:15 Plt Count 114 K/mm3 (140-440) L 05/17/21 04:15 Lymph % (Auto) 7.4 % (13.4-35.0) L 05/15/21 04:45 Bailey % (Auto) 6.7 % (0.0-7.3) 05/15/21 04:45 Eos % (Auto) 4.0 % (0.0-4.3) 05/15/21 04:45 Baso % (Auto) 0.7 % (0.0-1.8) 05/15/21 04:45 Lymph # (Auto) 0.6 K/mm3 (1.2-5.4) L 05/15/21 04:45 Bailey # (Auto) 0.6 K/mm3 (0.0-0.8) 05/15/21 04:45 Eos # (Auto) 0.3 K/mm3 (0.0-0.4) 05/15/21 04:45 Baso # (Auto) 0.1 K/mm3 (0.0-0.1) 05/15/21 04:45 Add Manual Diff Complete 05/12/21 04:08 Total Counted 200 05/12/21 04:08 Seg Neutrophils % 81.2 % (40.0-70.0) H 05/15/21 04:45 Seg Neuts % (Manual) 85.5 % (40.0-70.0) H 05/12/21 04:08 Band Neutrophils % 8.5 % 05/12/21 04:08 Lymphocytes % (Manual) 2.0 % (13.4-35.0) L 05/12/21 04:08 Monocytes % (Manual) 3.0 % (0.0-7.3) 05/12/21 04:08 Eosinophils % (Manual) 1.0 % (0.0-4.3) 05/12/21 04:08 Nucleated RBC % Not Reportable 05/12/21 04:08 Seg Neutrophils # 6.7 K/mm3 (1.8-7.7) 05/15/21 04:45 Seg Neutrophils # Man 19.5 K/mm3 (1.8-7.7) H 05/12/21 04:08 Band Neutrophils # 1.9 K/mm3 05/12/21 04:08 Lymphocytes # (Manual) 0.5 K/mm3 (1.2-5.4) L 05/12/21 04:08 Abs React Lymphs (Man) 0.0 K/mm3 05/12/21 04:08 Monocytes # (Manual) 0.7 K/mm3 (0.0-0.8) 05/12/21 04:08 Eosinophils # (Manual) 0.2 K/mm3 (0.0-0.4) 05/12/21 04:08 Basophils # (Manual) 0.0 K/mm3 (0.0-0.1) 05/12/21 04:08 Metamyelocytes # 0.0 K/mm3 05/12/21 04:08 Myelocytes # 0.0 K/mm3 05/12/21 04:08 Promyelocytes # 0.0 K/mm3 05/12/21 04:08 Blast Cells # 0.0 K/mm3 05/12/21 04:08 WBC Morphology Not Reportable 05/12/21 04:08 Hypersegmented Neuts Not Reportable 05/12/21 04:08 Hyposegmented Neuts Not Reportable 05/12/21 04:08 Hypogranular Neuts Not Reportable 05/12/21 04:08 Smudge Cells Not Reportable 05/12/21 04:08 Toxic Granulation Not Reportable 05/12/21 04:08 Toxic Vacuolation Not Reportable 05/12/21 04:08 Dohle Bodies Not Reportable 05/12/21 04:08 Pelger-Huet Anomaly Not Reportable 05/12/21 04:08 Elizabeth Rods Not Reportable 05/12/21 04:08 Platelet Estimate Consistent w auto 05/12/21 04:08 Clumped Platelets Not Reportable 05/12/21 04:08 Plt Clumps, EDTA Not Reportable 05/12/21 04:08 Large Platelets Not Reportable 05/12/21 04:08 Giant Platelets Not Reportable 05/12/21 04:08 Platelet Satelliting Not Reportable 05/12/21 04:08 Plt Morphology Comment Not Reportable 05/12/21 04:08 RBC Morphology Not Reportable 05/12/21 04:08 Dimorphic RBCs Not Reportable 05/12/21 04:08 Polychromasia Not Reportable 05/12/21 04:08 Hypochromasia Not Reportable 05/12/21 04:08 Poikilocytosis Not Reportable 05/12/21 04:08 Anisocytosis 1+ 05/12/21 04:08 Microcytosis Not Reportable 05/12/21 04:08 Macrocytosis Not Reportable 05/12/21 04:08 Spherocytes Not Reportable 05/12/21 04:08 Pappenheimer Bodies Not Reportable 05/12/21 04:08 Sickle Cells Not Reportable 05/12/21 04:08 Target Cells Not Reportable 05/12/21 04:08 Tear Drop Cells Not Reportable 05/12/21 04:08 Ovalocytes Not Reportable 05/12/21 04:08 Helmet Cells Not Reportable 05/12/21 04:08 [place] Bodies Not Reportable 05/12/21 04:08 [place] Rings Not Reportable 05/12/21 04:08 [place] Cells Not Reportable 05/12/21 04:08 Bite Cells Not Reportable 05/12/21 04:08 Crenated Cell Not Reportable 05/12/21 04:08 Elliptocytes Not Reportable 05/12/21 04:08 Acanthocytes (Spur) Not Reportable 05/12/21 04:08 Rouleaux Not Reportable 05/12/21 04:08 Hemoglobin C Crystals Not Reportable 05/12/21 04:08 Schistocytes Not Reportable 05/12/21 04:08 Malaria parasites Not Reportable 05/12/21 04:08 Tahir Bodies Not Reportable 05/12/21 04:08 Hem Pathologist Commnt No 05/12/21 04:08 PT 16.0 Sec. (12.2-14.9) H 05/11/21 05:43 INR 1.16 (0.87-1.13) H 05/11/21 05:43 ABG pH 7.387 pH Units (7.350-7.450) 05/14/21 10:25 ABG pCO2 46.3 mm Hg 05/14/21 10:25 ABG pO2 76.0 mm Hg (80.0-90.0) L 05/14/21 10:25 ABG HCO3 27.2 mmol/L (20.0-26.0) H 05/14/21 10:25 ABG O2 Saturation 96.2 % (95.0-99.0) 05/14/21 10:25 ABG O2 Content 15.3 (0.0-44) 05/14/21 10:25 ABG Base Excess 1.7 mmol/L (-2.0-3.0) 05/14/21 10:25 ABG Hemoglobin 11.5 gm/dl (12.0-16.0) L 05/14/21 10:25 ABG Carboxyhemoglobin 1.1 % (0.0-5.0) 05/14/21 10:25 ABG Methemoglobin 0.7 % (0.0-1.5) 05/14/21 10:25 Oxyhemoglobin 94.4 % (95.0-99.0) L 05/14/21 10:25 FiO2 10 % 05/14/21 10:25 Sodium 144 mmol/L (137-145) 05/17/21 04:15 Potassium 3.7 mmol/L (3.6-5.0) 05/17/21 04:15 Chloride 102.6 mmol/L (98-107) 05/17/21 04:15 Carbon Dioxide 35 mmol/L (22-30) H 05/17/21 04:15 Anion Gap 10 mmol/L 05/17/21 04:15 BUN 5 mg/dL (7-17) L 05/17/21 04:15 Creatinine 0.6 mg/dL (0.6-1.2) 05/17/21 04:15 Estimated GFR > 60 ml/min 05/17/21 04:15 BUN/Creatinine Ratio 8 % 05/17/21 04:15 Glucose 274 mg/dL (65-100) H 05/17/21 04:15 POC Glucose 249 mg/dL (70-105) H 05/17/21 05:07 Hemoglobin A1c 5.2 % (4-6) 05/12/21 04:08 Lactic Acid 3.30 mmol/L (0.7-2.0) H* 05/12/21 Unknown Calcium 7.7 mg/dL (8.4-10.2) L 05/17/21 04:15 Phosphorus 1.50 mg/dL (2.5-4.5) L D 05/17/21 04:15 Magnesium 2.20 mg/dL (1.7-2.3) 05/17/21 04:15 Total Bilirubin 1.70 mg/dL (0.1-1.2) H 05/17/21 04:15 Direct Bilirubin 1.5 mg/dL (0-0.2) H 05/17/21 04:15 Indirect Bilirubin 0.2 mg/dL 05/17/21 04:15 AST 43 units/L (5-40) H 05/17/21 04:15 ALT 21 units/L (7-56) 05/17/21 04:15 Alkaline Phosphatase 196 units/L (35-129) H 05/17/21 04:15 Total Protein 5.4 g/dL (6.3-8.2) L 05/17/21 04:15 Albumin 1.6 g/dL (3.9-5) L 05/17/21 04:15 Albumin/Globulin Ratio 0.4 % 05/17/21 04:15 Lipase 3 units/L (13-60) L 05/11/21 05:43 Urine Color [place] (Yellow) 05/11/21 11:18 Urine Turbidity Clear (Clear) 05/11/21 11:18 Urine pH 6.0 (5.0-7.0) 05/11/21 11:18 Ur Specific [place] 1.035 (1.003-1.030) H 05/11/21 11:18 Urine Protein 100 mg/dl mg/dL (Negative) 05/11/21 11:18 Urine Glucose (UA) Neg mg/dL (Negative) 05/11/21 11:18 Urine Ketones Neg mg/dL (Negative) 05/11/21 11:18 Urine Blood Neg (Negative) 05/11/21 11:18 Urine Nitrite Neg (Negative) 05/11/21 11:18 Urine Bilirubin Neg (Negative) 05/11/21 11:18 Urine Urobilinogen < 2.0 mg/dL (<2.0) 05/11/21 11:18 Ur Leukocyte Esterase Neg (Negative) 05/11/21 11:18 Urine WBC (Auto) 2.0 /HPF (0.0-6.0) 05/11/21 11:18 Urine RBC (Auto) 1.0 /HPF (0.0-6.0) 05/11/21 11:18 Urine Mucus Few /HPF 05/11/21 11:18 Vancomycin Trough 25.3 ug/mL (5.0-20.0) H 05/14/21 15:20 Coronavirus (PCR) Negative (Negative) 05/12/21 10:16 Hepatitis A IgM Ab Non-reactive (NonReactive) 05/12/21 12:30 Hep Bs Antigen Nonreactive (Negative) 05/12/21 12:30 Hep B Core IgM Ab Non-reactive (NonReactive) 05/12/21 12:30 Hepatitis C Antibody Non-reactive (NonReactive) 05/12/21 12:30 Microbiology: Microbiology 05/15/21 09:12 Peripheral/Venous Blood Culture - Preliminary NO GROWTH AFTER 48 HOURS 05/15/21 09:12 Peripheral/Venous Blood Culture - Preliminary NO GROWTH AFTER 48 HOURS 05/11/21 12:28 Peripheral/Venous Blood Culture - Final NO GROWTH AFTER 5 DAYS 05/11/21 12:28 Peripheral/Venous Blood Culture - Final NO GROWTH AFTER 5 DAYS Rivas/IV: Voiding Method Indwelling Catheter Active Medications - Current Medications Current Medications: Generic Name Dose Route Start Last Admin Trade Name Freq PRN Reason Stop Dose Admin Acetaminophen 650 mg 05/11/21 21:40 05/14/21 20:06 Acetaminophen 325 Mg Tab PO 650 mg Q4H PRN Administration Pain MILD(1-3)/Fever >100.5/WOODS Arformoterol Tartrate 15 mcg 05/12/21 08:00 05/17/21 09:04 Arformoterol 15 Mcg/2 Ml Nebu IH 15 mcg Q12HRT ABRAHAN Administration Benzonatate 100 mg 05/12/21 15:53 05/13/21 17:01 Benzonatate 100 Mg Cap PO 100 mg Q8HR PRN Administration Cough Budesonide 0.5 mg 05/12/21 08:00 05/17/21 09:04 Budesonide 0.5 Mg/2 Ml Nebu IH 0.5 mg Q12HRT ABRAHAN Administration Cetirizine HCl 10 mg 05/12/21 10:00 05/16/21 09:45 Cetirizine 10 Mg Tab PO Not Given QDAY ABRAHAN Cholecalciferol 5,000 unit 05/12/21 10:00 05/16/21 09:45 Cholecalciferol (Vit D3) 5,000 Unit Tab PO Not Given DAILY ABRAHAN Dexamethasone 6 mg 05/16/21 13:00 05/17/21 10:31 Dexamethasone 4 Mg/Ml Vial IV 6 mg Q24HR ABRAHAN Administration Dextrose 50 ml 05/12/21 11:57 05/16/21 08:30 Dextrose 50% In Water (25gm) 50 Ml Syringe IV 20 ml Q30MIN PRN Administration Hypoglycemia Protocol Enoxaparin Sodium 40 mg 05/14/21 22:00 05/16/21 21:00 Enoxaparin 40 Mg/0.4 Ml Inj SUB-Q 40 mg QDAY@2200 ABRAHAN Administration Protocol Furosemide 20 mg 05/16/21 13:00 05/17/21 10:31 Furosemide 20 Mg/2 Ml Inj IV 05/18/21 10:01 20 mg DAILY ABRAHAN Administration NORepinephrine/NS 8 MG-250 ML 8 mg in 250 mls @ 3.75 mls/hr 05/11/21 15:00 05/17/21 11:05 Norepinephrine/Ns 8 Mg-250 Ml (Double Conc) IV 0 mcg/min TITRATE ABRAHAN 0 mls/hr Titration Protocol 2 MCG/MIN Vasopressin 20 unit/ Sodium 101 mls @ 9.09 mls/hr 05/11/21 20:00 05/12/21 17:18 Chloride IV Infused TITR ABRAHAN Titration Protocol 0.03 UNITS/MIN MEROPENEM/NS 1 GRAM/100 ML 1 gram in 100 mls @ 100 mls/hr 05/15/21 15:00 05/16/21 23:00 Merrem/Ns 1 Gram/100 Ml IV 100 mls/hr Q8H ABRAHAN Administration Protocol Dextrose 1,000 mls @ 30 mls/hr 05/16/21 09:00 05/16/21 09:43 D10w IV 05/17/21 12:00 30 mls/hr DIRECT ABRAHAN Administration Amino Acids 2,000 mls @ 83.33 mls/hr 05/16/21 20:00 05/16/21 21:31 Clinimix 4.25%-10% Solution IV 05/17/21 19:59 83.33 mls/hr DIRECT ABRAHAN Administration Potassium Phosphate 30 mmol/ 510 mls @ 85 mls/hr 05/17/21 09:30 05/17/21 10:30 Sodium Chloride IV 05/17/21 15:29 85 mls/hr ONCE ONE Administration Amino Acids/Electrolytes/Dextrose 1,999.92 mls @ 83.33 mls/hr 05/17/21 20:00 Tpn Adult IV 05/18/21 19:59 DAILY@1999 ABRAHAN Protocol Metoclopramide HCl 10 mg 05/11/21 21:40 Metoclopramide 10 Mg/2 Ml Inj IV Q6H PRN Nausea And Vomiting Montelukast Sodium 10 mg 05/12/21 18:00 05/16/21 18:35 Montelukast 10 Mg Tab PO Not Given QPM ABRAHAN Morphine Sulfate 2 mg 05/11/21 21:40 05/17/21 04:18 Morphine 2 Mg/1 Ml Inj IV 2 mg Q4H PRN Administration Pain, Moderate (4-6) Ondansetron HCl 4 mg 05/11/21 21:40 05/15/21 09:57 Ondansetron 4 Mg/2 Ml Inj IV 4 mg Q8H PRN Administration Nausea And Vomiting Pantoprazole Sodium 40 mg 05/15/21 10:00 05/17/21 10:30 Pantoprazole 40 Mg Inj IV 40 mg QDAY ABRAHAN Administration Sodium Chloride 10 ml 05/11/21 22:00 05/17/21 10:30 Sodium Chloride 0.9% 10 Ml Flush Syringe IV 10 ml BID ABRAHAN Administration Sodium Chloride 10 ml 05/11/21 21:40 05/15/21 00:35 Sodium Chloride 0.9% 10 Ml Flush Syringe IV 10 ml PRN PRN Administration LINE FLUSH Nutrition/Malnutrition Assess - Dietary Evaluation Nutrition/Malnutrition Findings: Nutrition Notes Start: 05/13/21 09:47 Freq: Status: Active Protocol: Document 05/17/21 10:21 ON LICENSE OF [facility] (Rec: 05/17/21 10:32 ON LICENSE OF [facility] [id number]) Nutrition Notes Initial or Follow up Reassessment Current Diagnosis COPD,Sepsis,Respiratory Failure Other Pertinent Diagnosis Pancreatic CA, pulmonary fibrosis, transaminitis Current Diet PN at 83.33ml/hr Labs/Tests BG 274 CO2 - 35 Phos 1.5 tBili 1.7 Ca 7.7 (adjusted 9.62) Pertinent Medications Decadron, Levophed gtt, Protonix, 30mmol KPhos x 1 dose, Vasopressin gtt, D10W at 30ml/hr Height 5 ft 2 in Weight 78.4 kg [place] Body Weight (kg) 50.00 BMI 31.6 Weight Status Obese Subjective/Other Information Day 1 PN. Percent of energy/protein needs met: 63% energy 85% pro Burn Absent Trauma Absent #1 Nutrition Diagnosis Inadequate protein-energy intake,Altered GI function Comments: CHANGED Etiology hx of pancreatic CA As Evidenced by Signs and Symptoms pt on continuous BiPap with poor oral intake for past few days Is patient on ventilator? No Is Patient Ambulatory and/or Out of Bed No REE-([facility]-confined to bed) [phone] Calculation Used for Recommendations [facility] Additional Notes Pro needs 2g/kg IBW: 100g/day Fluid needs 1ml/kcal Nutrition Intervention Nutrition Support: Continue PN at 83.33ml/hr: MVI , Thiamine, 5% amino acids, 7. 5% dextrose, 75mEq Na, 80mEq K , 40mmol Phos, 100%/0% chloride/acetate. Osmolality: 1030. Kcal 910 Protein (gm) 100 Carbohydrates (gm) 150 Fat (gm) 0 Fluid (mL) 2,000 Fiber (gm) 0 Goal #1 CPN to meet at least 75% energy and pro needs Follow-Up By: 05/18/21 Additional Comments Labs in am: BMP, Mg, Phos
[2021-05-17] MEDS: INSULIN LISPRO 100 UNIT/ML SUB-Q SCH ×3 (12:45→23:45)
--- NOTE | 2021-05-17 12:49 | Progress Note ---
Assessment and Plan Cultures: 05/11/2021 blood culture: No growth 05/15/2021 blood culture: No growth A/P: 51-year-old female with pancreatic cancer status post chemo and radiation, not considered a candidate for surgery, COPD, pulmonary fibrosis, chronic respiratory failure requiring 2 L nasal oxygen was admitted with acute onset abdominal pain: #Septic shock: Likely cholangitis from biliary dilatation, has indwelling biliary stent. Off pressors. #Elevated LFTs: GI following, planning MRCP. CT abdomen pelvis showed persistent pancreatic head carcinoma with indwelling metallic stent. #History of pancreatic cancer status post chemo and radiation, not a surgical candidate #Acute on chronic respiratory failure: Has underlying pulmonary fibrosis. Requiring BiPAP. Recs: -continue IV meropenem, D3 of 7. Off pressors. -awaiting MRCP. GI following -poor prognosis Dave Doyle MD, FACP, WAQAS [facility] ([facility] O: [phone] F: [phone] Subjective Date of service: 05/17/21 Principal diagnosis: Septic shock; Pulm fibrosis; Hypoxemic resp failure; COVID- 19 infxn Interval history: More awake. Afebrile. Remains on BiPAP. Weaned off Levophed. Objective - Exam Narrative Exam: Physical Exam: Constitutional: awake, alert, on BIPAP Head, Ears, Nose: Normocephalic, atraumatic. External ears, nose normal Eyes: Conjunctivae/corneas clear. No icterus. No ptosis. Neck: Limited due to BiPAP Oral: BiPAP Cardiovascular: S1, S2 + Respiratory: AE fair bilaterally, coarse sounds GI: Soft, bowel sounds normal. No peritoneal signs Musculoskeletal: No pedal edema, no cyanosis. Port present, non tender Skin: No rash or abscess Hem/Lymphatic: No palpable cervical or supraclavicular nodes. No lymphangitis Psych: anxious on BiPAP Neurological: awake, alert - Constitutional Vitals: Vital Signs Temp Pulse Resp BP Pulse Ox 97.3 F L 89 22 108/54 100 05/17/21 12:00 05/17/21 12:00 05/17/21 12:00 05/17/21 12:00 05/17/21 12:00 Temperature -Last 24 Hours Temperature 97.3 F Temperature 97.4 F Temperature 97.4 F Temperature 98.7 F Temperature 99.3 F Temperature 98.8 F - Labs CBC & Chem 7: 05/17/21 04:15 05/17/21 04:15 Labs: Abnormal lab results 05/16/21 05/17/21 05/17/21 Range/Units 23:42 04:15 04:15 RBC 3.26 L (3.65-5.03) M/mm3 MCV 98 H (79-97) fl RDW 18.9 H (13.2-15.2) % Plt Count 114 L (140-440) K/mm3 Carbon Dioxide (22-30) mmol/L BUN (7-17) mg/dL Glucose (65-100) mg/dL POC Glucose 200 H (70-105) mg/dL Calcium (8.4-10.2) mg/dL Phosphorus (2.5-4.5) mg/dL Total Bilirubin 1.70 H (0.1-1.2) mg/dL Direct Bilirubin 1.5 H (0-0.2) mg/dL AST 43 H (5-40) units/L Alkaline Phosphatase 196 H (35-129) units/L Total Protein 5.4 L (6.3-8.2) g/dL Albumin 1.6 L (3.9-5) g/dL 05/17/21 05/17/21 05/17/21 Range/Units 04:15 05:07 11:56 RBC (3.65-5.03) M/mm3 MCV (79-97) fl RDW (13.2-15.2) % Plt Count (140-440) K/mm3 Carbon Dioxide 35 H (22-30) mmol/L BUN 5 L (7-17) mg/dL Glucose 274 H (65-100) mg/dL POC Glucose 249 H 176 H (70-105) mg/dL Calcium 7.7 L (8.4-10.2) mg/dL Phosphorus 1.50 L D (2.5-4.5) mg/dL Total Bilirubin (0.1-1.2) mg/dL Direct Bilirubin (0-0.2) mg/dL AST (5-40) units/L Alkaline Phosphatase (35-129) units/L Total Protein (6.3-8.2) g/dL Albumin (3.9-5) g/dL
--- NOTE | 2021-05-17 13:42 | Gastroenterology Progress Note ---
Assessment and Plan 1. Abnormal liver enzymes with biliary dilatation - has chronic biliary stent with dilatation proximal to stent. ? stent occlusion (from tumor possibly vs other etiology). clinically she appears to improved from this stand point with abx. wbc improved/now normal, afebrile and liver enzymes have trended down. not stable from respiratory stand point for mrcp at this time. would cont conservative management/abx per primary and trend liver enzymes for time being 2. History of pancreatic head cancer - s/p chemo/radiation, not a surgical candidate 3. Sepsis/shock - improved 4. respiratory failure - remains on bipap, management per primary/icu Subjective Date of service: 05/17/21 Principal diagnosis: Septic shock; Pulm fibrosis; Hypoxemic resp failure; COVID- 19 infxn Interval history: no acute events overnight. remains on bipap, weaned off pressors Objective - Exam Narrative Exam: gen: nad, on bipap abd: soft, mild epigastric ttp, nd lungs: coarse bs bilaterally cv: rrr - Constitutional Vitals: Temp Pulse Resp BP Pulse Ox 97.3 F L 89 26 H 108/54 100 05/17/21 12:00 05/17/21 12:00 05/17/21 13:34 05/17/21 12:00 05/17/21 12:00 - Labs CBC & Chem 7: 05/17/21 04:15 05/17/21 04:15 Labs: Laboratory Results - last 24 hr 05/16/21 05/16/21 05/17/21 17:36 23:42 04:15 WBC RBC Hgb Hct MCV MCH MCHC RDW Plt Count Sodium Potassium Chloride Carbon Dioxide Anion Gap BUN Creatinine Estimated GFR BUN/Creatinine Ratio Glucose POC Glucose 81 200 H Calcium Phosphorus Magnesium Total Bilirubin 1.70 H Direct Bilirubin 1.5 H Indirect Bilirubin 0.2 AST 43 H ALT 21 Alkaline Phosphatase 196 H Total Protein 5.4 L Albumin 1.6 L Albumin/Globulin Ratio 0.4 05/17/21 05/17/21 05/17/21 04:15 04:15 05:07 WBC 8.3 RBC 3.26 L Hgb 10.3 Hct 32.0 MCV 98 H MCH 32 MCHC 32 RDW 18.9 H Plt Count 114 L Sodium 144 Potassium 3.7 Chloride 102.6 Carbon Dioxide 35 H Anion Gap 10 BUN 5 L Creatinine 0.6 Estimated GFR > 60 BUN/Creatinine Ratio 8 Glucose 274 H POC Glucose 249 H Calcium 7.7 L Phosphorus 1.50 L D Magnesium 2.20 Total Bilirubin Direct Bilirubin Indirect Bilirubin AST ALT Alkaline Phosphatase Total Protein Albumin Albumin/Globulin Ratio 05/17/21 11:56 WBC RBC Hgb Hct MCV MCH MCHC RDW Plt Count Sodium Potassium Chloride Carbon Dioxide Anion Gap BUN Creatinine Estimated GFR BUN/Creatinine Ratio Glucose POC Glucose 176 H Calcium Phosphorus Magnesium Total Bilirubin Direct Bilirubin Indirect Bilirubin AST ALT Alkaline Phosphatase Total Protein Albumin Albumin/Globulin Ratio
[2021-05-17] MEDS: MONTELUKAST 10 MG TAB PO SCH (19:57)
[2021-05-17] MEDS ORDERED: TOTAL PARENTERAL NUTRITION 1,999.92 ML IV SCH (20:00)
[2021-05-17] MEDS: ENOXAPARIN 40 MG/0.4 ML INJ SUB-Q SCH (21:04)
[2021-05-18] MEDS: INSULIN LISPRO 100 UNIT/ML SUB-Q SCH ×3 (06:05→18:00)
[2021-05-18] MEDS: MEROPENEM/NS 1 GRAM/100 ML 1 GRAM/100 ML BAG IV SCH ×3 (06:39→23:14)
[2021-05-18 08:18] LABS: Hematocrit 32.5 % (30.3-42.9); Hemoglobin 10.5 gm/dl (10.1-14.3); Mean Corpuscular HGB Conc 32 % (30-34); Mean Corpuscular Volume 97 fl (79-97); Platelet Count 155 K/mm3 (140-440); Red Blood Count 3.34 M/mm3 (3.65-5.03); Red Cell Distribution Width 18.8 % (13.2-15.2)
[2021-05-18] MEDS: BUDESONIDE 0.5 MG/2 ML NEBU IH SCH ×2 (08:24→20:52)
[2021-05-18] MEDS: ARFORMOTEROL 15 MCG/2 ML NEBU IH SCH ×2 (08:24→20:53)
[2021-05-18 09:34] LABS: Blood Urea Nitrogen 17 mg/dL (7-17); Calcium 7.2 mg/dL (8.4-10.2); Hemolysis Index 9
[2021-05-18] MEDS: dexAMETHasone 4 MG/ML VIAL IV SCH (09:42)
[2021-05-18] MEDS: FUROSEMIDE 20 MG/2 ML INJ IV SCH (09:42)
[2021-05-18] MEDS: PANTOPRAZOLE 40 MG INJ IV SCH (09:42)
[2021-05-18] MEDS: CHOLECALCIFEROL (VIT D3) 5,000 UNIT TAB PO SCH (09:42)
[2021-05-18] MEDS: CETIRIZINE 10 MG TAB PO SCH (09:42)
[2021-05-18 09:58] LABS: BUN/Creatinine Ratio 43
[2021-05-18] MEDS: MORPHINE 2 MG/1 ML INJ IV PRN ×2 (10:26→21:20)
--- NOTE | 2021-05-18 12:30 | Progress Note ---
Assessment and Plan Septic shock possible hepatobiliary source Lactic acidosis h/o pulmonary fibrosis, Acute on chronic respiratory failure on home O2 of 2 L nasal cannula Transaminitis, biliary dilation, r/o cholangitis Hyperchloremia, metabolic acidosis, hypokalemia Hypoglycemia h/o pancreatic head cancer- chemoradiation therapy h/o Hypertension - improving -transition to daytime Vapotherm HFNC in am as tolerated - continue BIPAP scheduled qhs with prn daytime use - intubate if decompensates - continue supervised ice-chips ok - continue Dexamethasone re: Pulmonary Fibrosis exacerbation (h/o Solumedrol allergy but was tolerating Prednisone) - continue care as below otherwise; - wean Levophed for target MAP > 65 mmHg - refusing port-a-cath access; unable to place PICC line; will continue Femoral CVL X 24 hours and re-assess - MRCP pending as she remains tenuous from a respiratory standpoint - continue anti-infective's; de-escalate per ID recommendations - continue accuchecks with glycemic control per SSI (While critically ill target blood glucose of 140-180 mg/dL; avoid hypoglycemia) - continue to wean supplemental oxygen for target O2 sat's > 90% acutely - aspiration precautions - bronchodilators with pulmonary hygiene per RT - avoid nephrotoxins, renally dose all medications - prn analgesia per pain score - Maintenance of sleep-wake cycle, avoid delirium - G.I. & VTE prophylaxis - PT/OT/ROM exercises - mobility protocols for pressure ulcer prophylaxis - Monitor hemodynamics closely - continue other care per attending / other consultants - discharge planning ongoing concurrently .... Re-evaluate in am & prn CONDITION: CRITICAL PROGNOSIS: GUARDED CODE STATUS: FULL CODE The high probability of a clinically significant, sudden or life-threatening deterioration of the [respiratory, cardiovascular, GI & neurologic] system(s) required my full and direct attention, intervention and personal management. The aggregate critical care time was [35] minutes without overlap. Time includes spent on; [x] Data Review and interpretation [x] Patient assessment and monitoring of vital signs [x] Documentation [x] Medication orders and management Subjective Date of service: 05/18/21 Principal diagnosis: Septic shock; Pulm fibrosis; Hypoxemic resp failure; COVID- 19 infxn Interval history: Patient is seen today for: Septic shock; pulmonary fibrosis; Acute on chronic hypoxemic respiratory failure; Transaminitis; h/o pancreatic head cancer; HTN Seen and examined at bedside; 24hour events reviewed; nursing and respiratory care staff consulted; no adverse overnight events reported to me; resting in bed; doing better; remains on BIPAP but FiO2 down to 60%; No N/V/F/C Objective Vital Signs - 12hr 05/18/21 05/18/21 05/18/21 00:30 00:46 01:00 Temperature Pulse Rate 84 89 82 Pulse Rate [ Anterior Left Throughout] Pulse Rate [ Anterior Right Throughout] Pulse Rate [ From Monitor] Respiratory 23 18 Rate Respiratory Rate [Anterior Left Throughout ] Respiratory Rate [Anterior Right Throughout] Blood Pressure 93/60 93/60 90/52 O2 Sat by Pulse 100 98 98 Oximetry 05/18/21 05/18/21 05/18/21 01:16 01:30 01:46 Temperature Pulse Rate 93 H 84 104 H Pulse Rate [ Anterior Left Throughout] Pulse Rate [ Anterior Right Throughout] Pulse Rate [ From Monitor] Respiratory 26 H 22 24 Rate Respiratory Rate [Anterior Left Throughout ] Respiratory Rate [Anterior Right Throughout] Blood Pressure 90/52 90/52 103/67 O2 Sat by Pulse 96 98 98 Oximetry 05/18/21 05/18/21 05/18/21 02:00 02:16 02:30 Temperature Pulse Rate 86 87 90 Pulse Rate [ Anterior Left Throughout] Pulse Rate [ Anterior Right Throughout] Pulse Rate [ From Monitor] Respiratory 26 H 25 H 25 H Rate Respiratory Rate [Anterior Left Throughout ] Respiratory Rate [Anterior Right Throughout] Blood Pressure 105/72 105/72 114/79 O2 Sat by Pulse 96 96 97 Oximetry 05/18/21 05/18/21 05/18/21 02:46 03:00 03:16 Temperature Pulse Rate 89 83 Pulse Rate [ Anterior Left Throughout] Pulse Rate [ Anterior Right Throughout] Pulse Rate [ From Monitor] Respiratory 25 H 23 Rate Respiratory Rate [Anterior Left Throughout ] Respiratory Rate [Anterior Right Throughout] Blood Pressure 114/79 114/79 114/79 O2 Sat by Pulse 99 99 93 Oximetry 05/18/21 05/18/21 05/18/21 03:24 03:30 03:46 Temperature 98.8 F Pulse Rate 82 90 Pulse Rate [ Anterior Left Throughout] Pulse Rate [ Anterior Right Throughout] Pulse Rate [ From Monitor] Respiratory 23 28 H Rate Respiratory Rate [Anterior Left Throughout ] Respiratory Rate [Anterior Right Throughout] Blood Pressure 97/59 97/59 O2 Sat by Pulse 98 98 Oximetry 05/18/21 05/18/21 05/18/21 04:00 04:16 04:30 Temperature Pulse Rate 104 H 76 77 Pulse Rate [ Anterior Left Throughout] Pulse Rate [ Anterior Right Throughout] Pulse Rate [ 80 From Monitor] Respiratory 26 H 19 18 Rate Respiratory Rate [Anterior Left Throughout ] Respiratory Rate [Anterior Right Throughout] Blood Pressure 97/59 97/59 117/56 O2 Sat by Pulse 91 100 100 Oximetry 05/18/21 05/18/21 05/18/21 04:38 04:46 05:00 Temperature Pulse Rate 88 93 H 82 Pulse Rate [ Anterior Left Throughout] Pulse Rate [ Anterior Right Throughout] Pulse Rate [ From Monitor] Respiratory 26 H 20 25 H Rate Respiratory Rate [Anterior Left Throughout ] Respiratory Rate [Anterior Right Throughout] Blood Pressure 117/56 117/56 117/56 O2 Sat by Pulse 100 99 100 Oximetry 05/18/21 05/18/21 05/18/21 05:16 05:30 05:46 Temperature Pulse Rate 93 H 85 81 Pulse Rate [ Anterior Left Throughout] Pulse Rate [ Anterior Right Throughout] Pulse Rate [ From Monitor] Respiratory 25 H 22 21 Rate Respiratory Rate [Anterior Left Throughout ] Respiratory Rate [Anterior Right Throughout] Blood Pressure 117/56 117/56 117/56 O2 Sat by Pulse 100 98 99 Oximetry 05/18/21 05/18/21 05/18/21 06:00 06:16 06:30 Temperature Pulse Rate 83 87 88 Pulse Rate [ Anterior Left Throughout] Pulse Rate [ Anterior Right Throughout] Pulse Rate [ From Monitor] Respiratory 30 H 35 H 36 H Rate Respiratory Rate [Anterior Left Throughout ] Respiratory Rate [Anterior Right Throughout] Blood Pressure 117/56 O2 Sat by Pulse 99 96 100 Oximetry 05/18/21 05/18/21 05/18/21 06:46 07:00 07:15 Temperature 98.1 F Pulse Rate 98 H 90 Pulse Rate [ Anterior Left Throughout] Pulse Rate [ Anterior Right Throughout] Pulse Rate [ From Monitor] Respiratory 19 37 H Rate Respiratory Rate [Anterior Left Throughout ] Respiratory Rate [Anterior Right Throughout] Blood Pressure 118/95 126/88 O2 Sat by Pulse 97 97 Oximetry 05/18/21 05/18/21 05/18/21 07:16 08:20 08:25 Temperature Pulse Rate 85 77 Pulse Rate [ 79 Anterior Left Throughout] Pulse Rate [ 77 Anterior Right Throughout] Pulse Rate [ From Monitor] Respiratory 27 H 28 H Rate Respiratory 29 H Rate [Anterior Left Throughout ] Respiratory 28 H Rate [Anterior Right Throughout] Blood Pressure 126/88 109/70 O2 Sat by Pulse 98 99 Oximetry 05/18/21 05/18/21 05/18/21 08:26 10:26 11:52 Temperature 98.1 F Pulse Rate Pulse Rate [ Anterior Left Throughout] Pulse Rate [ Anterior Right Throughout] Pulse Rate [ From Monitor] Respiratory 28 H Rate Respiratory Rate [Anterior Left Throughout ] Respiratory Rate [Anterior Right Throughout] Blood Pressure O2 Sat by Pulse 100 Oximetry 05/18/21 12:00 Temperature Pulse Rate 85 Pulse Rate [ Anterior Left Throughout] Pulse Rate [ Anterior Right Throughout] Pulse Rate [ From Monitor] Respiratory 37 H Rate Respiratory Rate [Anterior Left Throughout ] Respiratory Rate [Anterior Right Throughout] Blood Pressure 123/92 O2 Sat by Pulse 99 Oximetry Constitutional: alert, appears uncomfortable, other (mildly increased respiratory effort at rest on BIPAP 15/10 FIO2 100%) Eyes: non-icteric ENT: oropharynx moist, other (BIPAP FFM) Neck: supple, no lymphadenopathy, no JVD Effort: mildly labored Ascultation: Bilateral: diminished breath sounds, rales Percussion: Bilateral: not dull Cardiovascular: regular rate and rhythm, other (S1,S2) Gastrointestinal: normoactive bowel sounds, hypoactive bowel sounds, soft, non- distended (protuberant) Integumentary: normal Extremities: no cyanosis, no edema, pulses normal, other (right femoral CVL) Neurologic: normal mental status, non-focal exam, pupils equal and round Psychiatric: mood appropriate, affect normal CBC and BMP: 05/18/21 04:00 05/18/21 12:50 ABG, PT/INR, D-dimer: ABG ABG pH 7.387 pH Units (7.350-7.450) 05/14/21 10:25 ABG pCO2 46.3 mm Hg 05/14/21 10:25 ABG pO2 76.0 mm Hg (80.0-90.0) L 05/14/21 10:25 ABG O2 Saturation 96.2 % (95.0-99.0) 05/14/21 10:25 PT/INR, D-dimer PT 16.0 Sec. (12.2-14.9) H 05/11/21 05:43 INR 1.16 (0.87-1.13) H 05/11/21 05:43 Abnormal lab findings: Abnormal Labs 05/11/21 05/11/21 05/11/21 05:43 05:43 05:43 WBC RBC Hgb MCV 98 H RDW 17.7 H Plt Count Lymph % (Auto) 10.8 L Lymph # (Auto) 0.6 L Seg Neutrophils % 84.1 H Seg Neuts % (Manual) Lymphocytes % (Manual) Seg Neutrophils # Man Lymphocytes # (Manual) PT 16.0 H INR 1.16 H ABG pO2 ABG HCO3 ABG Hemoglobin Oxyhemoglobin Sodium Potassium Chloride Carbon Dioxide 21 L BUN 4 L Creatinine 0.4 L Glucose POC Glucose Lactic Acid Calcium 8.3 L Phosphorus Magnesium Total Bilirubin 2.10 H Direct Bilirubin 1.4 H AST 335 H ALT 57 H Alkaline Phosphatase 339 H Total Protein Albumin 2.4 L Lipase 3 L Ur Specific [place] Vancomycin Trough 05/11/21 05/11/21 05/12/21 11:18 12:28 04:08 WBC RBC Hgb MCV RDW Plt Count Lymph % (Auto) Lymph # (Auto) Seg Neutrophils % Seg Neuts % (Manual) Lymphocytes % (Manual) Seg Neutrophils # Man Lymphocytes # (Manual) PT INR ABG pO2 ABG HCO3 ABG Hemoglobin Oxyhemoglobin Sodium Potassium Chloride Carbon Dioxide BUN Creatinine Glucose POC Glucose Lactic Acid 4.20 H* 4.50 H* Calcium Phosphorus Magnesium Total Bilirubin Direct Bilirubin AST ALT Alkaline Phosphatase Total Protein Albumin Lipase Ur Specific [place] 1.035 H Vancomycin Trough 05/12/21 05/12/21 05/12/21 04:08 04:08 09:47 WBC 22.8 H RBC 3.39 L Hgb MCV 98 H RDW 17.7 H Plt Count Lymph % (Auto) Lymph # (Auto) Seg Neutrophils % Seg Neuts % (Manual) 85.5 H Lymphocytes % (Manual) 2.0 L Seg Neutrophils # Man 19.5 H Lymphocytes # (Manual) 0.5 L PT INR ABG pO2 ABG HCO3 ABG Hemoglobin Oxyhemoglobin Sodium Potassium 3.3 L Chloride 108.9 H Carbon Dioxide 17 L BUN 4 L Creatinine 0.5 L Glucose 106 H POC Glucose Lactic Acid 2.60 H* Calcium 6.4 L D Phosphorus Magnesium Total Bilirubin 2.10 H Direct Bilirubin AST 156 H ALT 61 H Alkaline Phosphatase 317 H Total Protein 5.4 L D Albumin 1.8 L Lipase Ur Specific [place] Vancomycin Trough 05/12/21 05/12/21 05/12/21 11:47 12:30 12:36 WBC RBC Hgb MCV RDW Plt Count Lymph % (Auto) Lymph # (Auto) Seg Neutrophils % Seg Neuts % (Manual) Lymphocytes % (Manual) Seg Neutrophils # Man Lymphocytes # (Manual) PT INR ABG pO2 ABG HCO3 ABG Hemoglobin Oxyhemoglobin Sodium Potassium Chloride Carbon Dioxide BUN Creatinine Glucose POC Glucose 59 L 120 H Lactic Acid 2.50 H* Calcium Phosphorus Magnesium Total Bilirubin Direct Bilirubin AST ALT Alkaline Phosphatase Total Protein Albumin Lipase Ur Specific [place] Vancomycin Trough 05/12/21 05/12/21 05/13/21 23:45 Unknown 04:00 WBC 19.8 H RBC 3.52 L Hgb MCV 98 H RDW 18.5 H Plt Count Lymph % (Auto) Lymph # (Auto) Seg Neutrophils % Seg Neuts % (Manual) Lymphocytes % (Manual) Seg Neutrophils # Man Lymphocytes # (Manual) PT INR ABG pO2 ABG HCO3 ABG Hemoglobin Oxyhemoglobin Sodium Potassium Chloride Carbon Dioxide BUN Creatinine Glucose POC Glucose 119 H Lactic Acid 3.30 H* Calcium Phosphorus Magnesium Total Bilirubin Direct Bilirubin AST ALT Alkaline Phosphatase Total Protein Albumin Lipase Ur Specific [place] Vancomycin Trough 05/13/21 05/13/21 05/13/21 04:00 05:42 12:19 WBC RBC Hgb MCV RDW Plt Count Lymph % (Auto) Lymph # (Auto) Seg Neutrophils % Seg Neuts % (Manual) Lymphocytes % (Manual) Seg Neutrophils # Man Lymphocytes # (Manual) PT INR ABG pO2 ABG HCO3 ABG Hemoglobin Oxyhemoglobin Sodium Potassium 3.4 L Chloride 107.1 H Carbon Dioxide 19 L BUN 4 L Creatinine 0.4 L Glucose 157 H POC Glucose 143 H 110 H Lactic Acid Calcium 7.4 L D Phosphorus 1.60 L Magnesium 1.50 L Total Bilirubin 1.40 H Direct Bilirubin AST 95 H ALT Alkaline Phosphatase 328 H Total Protein 5.5 L Albumin 1.6 L Lipase Ur Specific [place] Vancomycin Trough 05/14/21 05/14/21 05/14/21 06:15 06:15 10:25 WBC 11.7 H RBC 3.41 L Hgb MCV 98 H RDW 18.6 H Plt Count Lymph % (Auto) Lymph # (Auto) Seg Neutrophils % Seg Neuts % (Manual) Lymphocytes % (Manual) Seg Neutrophils # Man Lymphocytes # (Manual) PT INR ABG pO2 76.0 L ABG HCO3 27.2 H ABG Hemoglobin 11.5 L Oxyhemoglobin 94.4 L Sodium Potassium 3.2 L Chloride Carbon Dioxide BUN 6 L Creatinine 0.5 L Glucose 103 H POC Glucose Lactic Acid Calcium 7.3 L Phosphorus 1.70 L Magnesium Total Bilirubin Direct Bilirubin AST 66 H ALT Alkaline Phosphatase 295 H Total Protein 5.3 L Albumin 1.8 L Lipase Ur Specific [place] Vancomycin Trough 05/14/21 05/14/21 05/14/21 15:20 15:20 17:26 WBC RBC Hgb MCV RDW Plt Count Lymph % (Auto) Lymph # (Auto) Seg Neutrophils % Seg Neuts % (Manual) Lymphocytes % (Manual) Seg Neutrophils # Man Lymphocytes # (Manual) PT INR ABG pO2 ABG HCO3 ABG Hemoglobin Oxyhemoglobin Sodium 146 H D Potassium Chloride 108.4 H Carbon Dioxide BUN 5 L Creatinine 0.5 L Glucose POC Glucose 63 L Lactic Acid Calcium 7.6 L Phosphorus Magnesium Total Bilirubin Direct Bilirubin AST ALT Alkaline Phosphatase Total Protein Albumin Lipase Ur Specific [place] Vancomycin Trough 25.3 H 05/14/21 05/15/21 05/15/21 21:27 00:03 00:29 WBC RBC Hgb MCV RDW Plt Count Lymph % (Auto) Lymph # (Auto) Seg Neutrophils % Seg Neuts % (Manual) Lymphocytes % (Manual) Seg Neutrophils # Man Lymphocytes # (Manual) PT INR ABG pO2 ABG HCO3 ABG Hemoglobin Oxyhemoglobin Sodium Potassium Chloride Carbon Dioxide BUN Creatinine Glucose POC Glucose 52 L 54 L 129 H Lactic Acid Calcium Phosphorus Magnesium Total Bilirubin Direct Bilirubin AST ALT Alkaline Phosphatase Total Protein Albumin Lipase Ur Specific [place] Vancomycin Trough 05/15/21 05/15/21 05/15/21 04:45 04:45 11:58 WBC RBC 3.24 L Hgb MCV 98 H RDW 18.5 H Plt Count 122 L Lymph % (Auto) 7.4 L Lymph # (Auto) 0.6 L Seg Neutrophils % 81.2 H Seg Neuts % (Manual) Lymphocytes % (Manual) Seg Neutrophils # Man Lymphocytes # (Manual) PT INR ABG pO2 ABG HCO3 ABG Hemoglobin Oxyhemoglobin Sodium 146 H Potassium 3.1 L Chloride 108.8 H Carbon Dioxide BUN 6 L Creatinine Glucose 121 H POC Glucose 68 L Lactic Acid Calcium 7.5 L Phosphorus 2.30 L D Magnesium Total Bilirubin 1.90 H Direct Bilirubin AST 55 H ALT Alkaline Phosphatase 231 H Total Protein 5.4 L Albumin 1.5 L Lipase Ur Specific [place] Vancomycin Trough 05/15/21 05/16/21 05/16/21 13:50 00:06 00:43 WBC RBC Hgb MCV RDW Plt Count Lymph % (Auto) Lymph # (Auto) Seg Neutrophils % Seg Neuts % (Manual) Lymphocytes % (Manual) Seg Neutrophils # Man Lymphocytes # (Manual) PT INR ABG pO2 ABG HCO3 ABG Hemoglobin Oxyhemoglobin Sodium Potassium Chloride Carbon Dioxide BUN Creatinine Glucose POC Glucose 147 H 54 L 116 H Lactic Acid Calcium Phosphorus Magnesium Total Bilirubin Direct Bilirubin AST ALT Alkaline Phosphatase Total Protein Albumin Lipase Ur Specific [place] Vancomycin Trough 05/16/21 05/16/21 05/16/21 04:31 04:31 05:58 WBC RBC 3.12 L Hgb 9.8 L MCV 98 H RDW 18.2 H Plt Count 115 L Lymph % (Auto) Lymph # (Auto) Seg Neutrophils % Seg Neuts % (Manual) Lymphocytes % (Manual) Seg Neutrophils # Man Lymphocytes # (Manual) PT INR ABG pO2 ABG HCO3 ABG Hemoglobin Oxyhemoglobin Sodium 146 H Potassium 3.2 L Chloride Carbon Dioxide BUN 5 L Creatinine 0.5 L Glucose POC Glucose 61 L Lactic Acid Calcium 7.2 L Phosphorus 2.30 L Magnesium Total Bilirubin Direct Bilirubin AST ALT Alkaline Phosphatase Total Protein Albumin Lipase Ur Specific [place] Vancomycin Trough 05/16/21 05/16/21 05/17/21 08:11 23:42 04:15 WBC RBC Hgb MCV RDW Plt Count Lymph % (Auto) Lymph # (Auto) Seg Neutrophils % Seg Neuts % (Manual) Lymphocytes % (Manual) Seg Neutrophils # Man Lymphocytes # (Manual) PT INR ABG pO2 ABG HCO3 ABG Hemoglobin Oxyhemoglobin Sodium Potassium Chloride Carbon Dioxide BUN Creatinine Glucose POC Glucose 58 L 200 H Lactic Acid Calcium Phosphorus Magnesium Total Bilirubin 1.70 H Direct Bilirubin 1.5 H AST 43 H ALT Alkaline Phosphatase 196 H Total Protein 5.4 L Albumin 1.6 L Lipase Ur Specific [place] Vancomycin Trough 05/17/21 05/17/21 05/17/21 04:15 04:15 05:07 WBC RBC 3.26 L Hgb MCV 98 H RDW 18.9 H Plt Count 114 L Lymph % (Auto) Lymph # (Auto) Seg Neutrophils % Seg Neuts % (Manual) Lymphocytes % (Manual) Seg Neutrophils # Man Lymphocytes # (Manual) PT INR ABG pO2 ABG HCO3 ABG Hemoglobin Oxyhemoglobin Sodium Potassium Chloride Carbon Dioxide 35 H BUN 5 L Creatinine Glucose 274 H POC Glucose 249 H Lactic Acid Calcium 7.7 L Phosphorus 1.50 L D Magnesium Total Bilirubin Direct Bilirubin AST ALT Alkaline Phosphatase Total Protein Albumin Lipase Ur Specific [place] Vancomycin Trough 05/17/21 05/17/21 05/17/21 11:56 16:29 23:37 WBC RBC Hgb MCV RDW Plt Count Lymph % (Auto) Lymph # (Auto) Seg Neutrophils % Seg Neuts % (Manual) Lymphocytes % (Manual) Seg Neutrophils # Man Lymphocytes # (Manual) PT INR ABG pO2 ABG HCO3 ABG Hemoglobin Oxyhemoglobin Sodium Potassium Chloride Carbon Dioxide BUN Creatinine Glucose POC Glucose 176 H 219 H 150 H Lactic Acid Calcium Phosphorus Magnesium Total Bilirubin Direct Bilirubin AST ALT Alkaline Phosphatase Total Protein Albumin Lipase Ur Specific [place] Vancomycin Trough 05/18/21 05/18/21 05/18/21 04:00 05:22 09:00 WBC RBC 3.34 L Hgb MCV RDW 18.8 H Plt Count Lymph % (Auto) Lymph # (Auto) Seg Neutrophils % Seg Neuts % (Manual) Lymphocytes % (Manual) Seg Neutrophils # Man Lymphocytes # (Manual) PT INR ABG pO2 ABG HCO3 ABG Hemoglobin Oxyhemoglobin Sodium Potassium 5.4 H D Chloride 97.5 L Carbon Dioxide 33 H BUN Creatinine 0.4 L Glucose 461 H POC Glucose 181 H Lactic Acid Calcium 7.2 L Phosphorus 5.00 H D Magnesium Total Bilirubin Direct Bilirubin AST ALT Alkaline Phosphatase Total Protein Albumin Lipase Ur Specific [place] Vancomycin Trough 05/18/21 11:16 WBC RBC Hgb MCV RDW Plt Count Lymph % (Auto) Lymph # (Auto) Seg Neutrophils % Seg Neuts % (Manual) Lymphocytes % (Manual) Seg Neutrophils # Man Lymphocytes # (Manual) PT INR ABG pO2 ABG HCO3 ABG Hemoglobin Oxyhemoglobin Sodium Potassium Chloride Carbon Dioxide BUN Creatinine Glucose POC Glucose 168 H Lactic Acid Calcium Phosphorus Magnesium Total Bilirubin Direct Bilirubin AST ALT Alkaline Phosphatase Total Protein Albumin Lipase Ur Specific [place] Vancomycin Trough Chest x-ray: other (refused) Allied health notes reviewed: nursing
--- NOTE | 2021-05-18 12:41 | Progress Note ---
Assessment and Plan Assessment and plan: This is a 48-year-old female with past medical history of COPD, pancreatic cancer with radiation s/p pancreatic stent placement, pulmonary fibrosis, chronic respiratory failure on 2 L NC at home admitted with sepsis, transaminitis and lactic acidosis. Hospital Course to Date: 05/12: Patient remains on high-dose Levophed and vasopressin. Given 1 L LR bolus. GI would like an MRCP to be conducted which has been ordered. Patient cleared for sips of water. Added Tessalon due to severe cough. Potassium repleted. Covid PCR negative. 05/13: Remains on Levophed and vasopressin has been off since yesterday evening. Started on stress dose steroids. MRCP pending. Hypokalemia, hypomagnesemia and hypophosphatemia repleted. Liver enzymes trending down. Started on D5 nor mal saline yesterday. 05/14: Patient with worsen respiratory status this am, tachypneic with increased O2 requirement. On full support on the Bipap this am with worsening diffuse bilateral opacities on CXR, s/p X1 dose of IV lasix overnight. Patient remains afebrile with no leukocytosis. Will continue IV Lasix X3 doses, f/u CXR in the am. D/W CCM due to patient worsening respiratory status hold on MRCP for today. Patient is off Levophed this am, leave pressors on standby might need to be put back on low dose pressors with IV diuretic. Patient also noted with Rt. fem CVC which was inserted in the ED, most likely due to be change, unsuccessfult PICC by IVT today and patient is refusing Port access at this time. 05/15: Patient remains on continuous Bipap overnight, desat when bipap is remov ed for mouth care. Plan to wean Fio2 as tolerated for SPO2 goal above 90%. Febrile overnight, TMAX 101.4, on IV abx zosyn, repeat blood culture ordered. Low K and phosph repleted, repeat labs in the am. 05/16: Patient back on full support on the Bipap, still not tolerating FiO2 wean, patient desat in the 80s. D/w CCM plan to continue continuous bipap for now, patient going on over 4 days with no nutrition plan to initiate TPN tomorrow. D10w gtt added for hypoglycemia. Patient platelet continue to steadily drop, given patient's history with continue AC for now, H&H is stable, no s/s of any active bleeding. Electrolytes repleted, will continue to trend CBC, BMP, mg, and phos. MRCP canceled, plan to reorder once patient's respiratory status is more stable. 05/17: Patient remains on continuous Bipap. Patient remains on low dose Levophed, plan to wean off pressors as tolerated for a MAP above 65. Clinimix initiated overnight, plan to start TPN tonight. Hyperglycemic overnight, SSI was initiated. Low phos repleted, repeat lab in the am. 05/18: Down to 60% FIo2 on the Bipap, SPO2 above 97%. Off pressros this am, TPN is running. Patient is now hyperglycemic, SSI adjusted. Consider basal dose, lantus if hyperglycemia persist. This am labs noted, hyperkalemia and really high glucose noted totally different from normal trend, orders placed for redraw. Assessment and Plan #Neuro: NAD -Avoid delirium -Reorientation as needed -Maintain sleep-wake cycle #CV: Hypotension #h/o HTN -Schedule IV Lasix addedX 3days -off Levophed gtt -Hold home htn medications -BP monitoring per protocol for MAP 65 and above -CCM consulted, appreciate recommendations #Respiratory: Acute on chronic respiratory failure #h/o pulmonary fibrosis #O2 Dependent at home -With worsen respiratory status this am, RR in the high 30s -05/14 Desated overnight, SPO2 in low 60 -Still on full support on Bipap- 60%, 09/03 -05/15 Repeat CXR this with no sig. change, diffuse bilateral opacities -IV lasix X3 days -Check ABG PRN -Plan to wean Fio2 as tolerated -Continue Supplemental oxygen and SPO2 monitoring for SPO2 goal above 90% -Repeat CXR in the am -Tessalon Perles as needed for cough -Pulmonary hygiene -CCM is following #GI: Transaminitis #H/o Pancreatic CA s/p stent placement #Biliary dilation #R/o cholangitis #Nausea/Vomiting- Resolved -CT abdomen/pelvis showed pancreatic cancer with metallic stent with possible occlusion, mild pelvic fluid and mild colonic thickening -GI consulted, patient recommendations -Plan for MRCP once respiratory status is stable, If stent occlusion/biliary o bstruction would recommend IR consult for PTC drain per GI -Clinimix initiated overnight, TPN to start tonight -Nutrition consulted -Continue PPI -BR to start once taking p.o. -Acute hepatitis panel negative -PRN antiemetic for N/V #:hypophosphatemia #Hypokalemia-improved #hypomagnesemia-improved -Electrolytes repleted -Continue to monitor and replete electrolytes as needed -Strict intake and output -Purewick in place -Keep patient at a net negatibe balance, net -2.1L in last 24hrs -Daily weights -Renally dose meds, avoid nephrotoxins -Repeat Labs ordered #ID: Sepsis #Leukopcytosis #Lactic acidosis -Presented with elevated WBCs, hypotensive, and with lactic acidosis -COVID swab negative -Blood cultures x2 no growth to date -Leukocytosis downtrending, 8.3 this am -Febrile overnight, repeat blood culture ordered -ID consulted, appreciated recommendation -Continue IV Antibiotic per ID -Monitor WBC and fever curve #Heme/ONC:Thrombocytopenia #h/o Pancreatic Cancer #s/p pancreatic stent placement -S/p radiation -F/U with outpatient with own oncologist -possible stent occlusion, Plan for MRCP -Not a surgical candidate per GI -Right chest post not accessed, patient refused -RUE swelling- RUE doppler neg DVT -Patient with thrombocytopenia, slowly dropping since admit -Given patient's history, will continue AC for now -Continue AC-Lovenox and SCD to bilateral lower extremities while in bed -Trend CBC -Close monitor for s/s of active bleeding #Endo: #Hypoglycemia-resolved -BG as low as 58 -TPN initiated now hyperglycemic -SSI Q6hrs added -Continue Hypoglycemia protocol -Avoid hypoglycemia The high probability of a clinically significant, sudden or life threatening deterioration of the [Neuro, GI, endo] system(s) required my full and direct attention, intervention and personal management. The aggregate critical care time was [60] minutes. This time is in addition to time spent performing repor analilia procedures but includes the following: [x] Data Review and interpretation [x] Patient assessment and monitoring of vital signs [x] Documentation [x] Medication orders and management Disposition Plan: ICU Total Time Spent with Patient (Minutes): 60 History Interval history: Patient seen and examined at the bedside. Patient is awake and alert, remains on continuous Bipap, FIo2 down to 60%. Off presors this am. TPN was initiated overnight. STEPHEN overnight Hospitalist Physical - Constitutional Vitals: Temp Pulse Resp BP Pulse Ox 98.1 F 85 37 H 123/92 99 05/18/21 11:52 05/18/21 12:00 05/18/21 12:00 05/18/21 12:00 05/18/21 12:00 General appearance: Present: mild distress, obese - EENT Eyes: Present: PERRL, EOM intact ENT: hearing intact - Neck Neck: Present: normal ROM - Respiratory Respiratory effort: labored, accessory muscle use Respiratory: bilateral: diminished - Cardiovascular Rhythm: regular Heart Sounds: Present: S1 & S2 - Extremities Extremities: no ischemia, pulses intact, pulses symmetrical Extremity abnormal: edema - Peripheral Assessment Generalized Edema Type: Non-pitting Edema Degree: 1+ Capillary Refill: < 3 seconds Skin Temperature: Warm Peripheral Pulses: within normal limits - Abdominal General gastrointestinal: soft, non-tender, normal bowel sounds - Integumentary Integumentary: Present: warm, dry - Psychiatric Psychiatric: cooperative, agitated - Neurologic Neurologic: moves all extremities - Allied Health Allied health notes reviewed: nursing Results - Labs CBC & Chem 7: 05/18/21 04:00 05/18/21 12:50 Labs: Laboratory Last Values WBC 9.8 K/mm3 (4.5-11.0) 05/18/21 04:00 RBC 3.34 M/mm3 (3.65-5.03) L 05/18/21 04:00 Hgb 10.5 gm/dl (10.1-14.3) 05/18/21 04:00 Hct 32.5 % (30.3-42.9) 05/18/21 04:00 MCV 97 fl (79-97) 05/18/21 04:00 MCH 31 pg (28-32) 05/18/21 04:00 MCHC 32 % (30-34) 05/18/21 04:00 RDW 18.8 % (13.2-15.2) H 05/18/21 04:00 Plt Count 155 K/mm3 (140-440) 05/18/21 04:00 Lymph % (Auto) 7.4 % (13.4-35.0) L 05/15/21 04:45 [place] % (Auto) 6.7 % (0.0-7.3) 05/15/21 04:45 Eos % (Auto) 4.0 % (0.0-4.3) 05/15/21 04:45 Baso % (Auto) 0.7 % (0.0-1.8) 05/15/21 04:45 Lymph # (Auto) 0.6 K/mm3 (1.2-5.4) L 05/15/21 04:45 [place] # (Auto) 0.6 K/mm3 (0.0-0.8) 05/15/21 04:45 Eos # (Auto) 0.3 K/mm3 (0.0-0.4) 05/15/21 04:45 Baso # (Auto) 0.1 K/mm3 (0.0-0.1) 05/15/21 04:45 Add Manual Diff Complete 05/12/21 04:08 Total Counted 200 05/12/21 04:08 Seg Neutrophils % 81.2 % (40.0-70.0) H 05/15/21 04:45 Seg Neuts % (Manual) 85.5 % (40.0-70.0) H 05/12/21 04:08 Band Neutrophils % 8.5 % 05/12/21 04:08 Lymphocytes % (Manual) 2.0 % (13.4-35.0) L 05/12/21 04:08 Monocytes % (Manual) 3.0 % (0.0-7.3) 05/12/21 04:08 Eosinophils % (Manual) 1.0 % (0.0-4.3) 05/12/21 04:08 Nucleated RBC % Not Reportable 05/12/21 04:08 Seg Neutrophils # 6.7 K/mm3 (1.8-7.7) 05/15/21 04:45 Seg Neutrophils # Man 19.5 K/mm3 (1.8-7.7) H 05/12/21 04:08 Band Neutrophils # 1.9 K/mm3 05/12/21 04:08 Lymphocytes # (Manual) 0.5 K/mm3 (1.2-5.4) L 05/12/21 04:08 Abs React Lymphs (Man) 0.0 K/mm3 05/12/21 04:08 Monocytes # (Manual) 0.7 K/mm3 (0.0-0.8) 05/12/21 04:08 Eosinophils # (Manual) 0.2 K/mm3 (0.0-0.4) 05/12/21 04:08 Basophils # (Manual) 0.0 K/mm3 (0.0-0.1) 05/12/21 04:08 Metamyelocytes # 0.0 K/mm3 05/12/21 04:08 Myelocytes # 0.0 K/mm3 05/12/21 04:08 Promyelocytes # 0.0 K/mm3 05/12/21 04:08 Blast Cells # 0.0 K/mm3 05/12/21 04:08 WBC Morphology Not Reportable 05/12/21 04:08 Hypersegmented Neuts Not Reportable 05/12/21 04:08 Hyposegmented Neuts Not Reportable 05/12/21 04:08 Hypogranular Neuts Not Reportable 05/12/21 04:08 Smudge Cells Not Reportable 05/12/21 04:08 Toxic Granulation Not Reportable 05/12/21 04:08 Toxic Vacuolation Not Reportable 05/12/21 04:08 Dohle Bodies Not Reportable 05/12/21 04:08 Pelger-Huet Anomaly Not Reportable 05/12/21 04:08 Elizabeth Rods Not Reportable 05/12/21 04:08 Platelet Estimate Consistent w auto 05/12/21 04:08 Clumped Platelets Not Reportable 05/12/21 04:08 Plt Clumps, EDTA Not Reportable 05/12/21 04:08 Large Platelets Not Reportable 05/12/21 04:08 Giant Platelets Not Reportable 05/12/21 04:08 Platelet Satelliting Not Reportable 05/12/21 04:08 Plt Morphology Comment Not Reportable 05/12/21 04:08 RBC Morphology Not Reportable 05/12/21 04:08 Dimorphic RBCs Not Reportable 05/12/21 04:08 Polychromasia Not Reportable 05/12/21 04:08 Hypochromasia Not Reportable 05/12/21 04:08 Poikilocytosis Not Reportable 05/12/21 04:08 Anisocytosis 1+ 05/12/21 04:08 Microcytosis Not Reportable 05/12/21 04:08 Macrocytosis Not Reportable 05/12/21 04:08 Spherocytes Not Reportable 05/12/21 04:08 Pappenheimer Bodies Not Reportable 05/12/21 04:08 Sickle Cells Not Reportable 05/12/21 04:08 Target Cells Not Reportable 05/12/21 04:08 Tear Drop Cells Not Reportable 05/12/21 04:08 Ovalocytes Not Reportable 05/12/21 04:08 Helmet Cells Not Reportable 05/12/21 04:08 [place] Bodies Not Reportable 05/12/21 04:08 [place] Rings Not Reportable 05/12/21 04:08 [place] Cells Not Reportable 05/12/21 04:08 Bite Cells Not Reportable 05/12/21 04:08 Crenated Cell Not Reportable 05/12/21 04:08 Elliptocytes Not Reportable 05/12/21 04:08 Acanthocytes (Spur) Not Reportable 05/12/21 04:08 Rouleaux Not Reportable 05/12/21 04:08 Hemoglobin C Crystals Not Reportable 05/12/21 04:08 Schistocytes Not Reportable 05/12/21 04:08 Malaria parasites Not Reportable 05/12/21 04:08 Tahir Bodies Not Reportable 05/12/21 04:08 Hem Pathologist Commnt No 05/12/21 04:08 PT 16.0 Sec. (12.2-14.9) H 05/11/21 05:43 INR 1.16 (0.87-1.13) H 05/11/21 05:43 ABG pH 7.387 pH Units (7.350-7.450) 05/14/21 10:25 ABG pCO2 46.3 mm Hg 05/14/21 10:25 ABG pO2 76.0 mm Hg (80.0-90.0) L 05/14/21 10:25 ABG HCO3 27.2 mmol/L (20.0-26.0) H 05/14/21 10:25 ABG O2 Saturation 96.2 % (95.0-99.0) 05/14/21 10:25 ABG O2 Content 15.3 (0.0-44) 05/14/21 10:25 ABG Base Excess 1.7 mmol/L (-2.0-3.0) 05/14/21 10:25 ABG Hemoglobin 11.5 gm/dl (12.0-16.0) L 05/14/21 10:25 ABG Carboxyhemoglobin 1.1 % (0.0-5.0) 05/14/21 10:25 ABG Methemoglobin 0.7 % (0.0-1.5) 05/14/21 10:25 Oxyhemoglobin 94.4 % (95.0-99.0) L 05/14/21 10:25 FiO2 10 % 05/14/21 10:25 Sodium 137 mmol/L (137-145) 05/18/21 09:00 Potassium 5.4 mmol/L (3.6-5.0) H D 05/18/21 09:00 Chloride 97.5 mmol/L (98-107) L 05/18/21 09:00 Carbon Dioxide 33 mmol/L (22-30) H 05/18/21 09:00 Anion Gap 12 mmol/L 05/18/21 09:00 BUN 17 mg/dL (7-17) 05/18/21 09:00 Creatinine 0.4 mg/dL (0.6-1.2) L 05/18/21 09:00 Estimated GFR > 60 ml/min 05/18/21 09:00 BUN/Creatinine Ratio 43 % 05/18/21 09:00 Glucose 461 mg/dL (65-100) H 05/18/21 09:00 POC Glucose 168 mg/dL (70-105) H 05/18/21 11:16 Hemoglobin A1c 5.2 % (4-6) 05/12/21 04:08 Lactic Acid 3.30 mmol/L (0.7-2.0) H* 05/12/21 Unknown Calcium 7.2 mg/dL (8.4-10.2) L 05/18/21 09:00 Phosphorus 5.00 mg/dL (2.5-4.5) H D 05/18/21 09:00 Magnesium 1.80 mg/dL (1.7-2.3) 05/18/21 09:00 Total Bilirubin 1.70 mg/dL (0.1-1.2) H 05/17/21 04:15 Direct Bilirubin 1.5 mg/dL (0-0.2) H 05/17/21 04:15 Indirect Bilirubin 0.2 mg/dL 05/17/21 04:15 AST 43 units/L (5-40) H 05/17/21 04:15 ALT 21 units/L (7-56) 05/17/21 04:15 Alkaline Phosphatase 196 units/L (35-129) H 05/17/21 04:15 Total Protein 5.4 g/dL (6.3-8.2) L 05/17/21 04:15 Albumin 1.6 g/dL (3.9-5) L 05/17/21 04:15 Albumin/Globulin Ratio 0.4 % 05/17/21 04:15 Lipase 3 units/L (13-60) L 05/11/21 05:43 Urine Color Deisi (Yellow) 05/11/21 11:18 Urine Turbidity Clear (Clear) 05/11/21 11:18 Urine pH 6.0 (5.0-7.0) 05/11/21 11:18 Ur Specific [place] 1.035 (1.003-1.030) H 05/11/21 11:18 Urine Protein 100 mg/dl mg/dL (Negative) 05/11/21 11:18 Urine Glucose (UA) Neg mg/dL (Negative) 05/11/21 11:18 Urine Ketones Neg mg/dL (Negative) 05/11/21 11:18 Urine Blood Neg (Negative) 05/11/21 11:18 Urine Nitrite Neg (Negative) 05/11/21 11:18 Urine Bilirubin Neg (Negative) 05/11/21 11:18 Urine Urobilinogen < 2.0 mg/dL (<2.0) 05/11/21 11:18 Ur Leukocyte Esterase Neg (Negative) 05/11/21 11:18 Urine WBC (Auto) 2.0 /HPF (0.0-6.0) 05/11/21 11:18 Urine RBC (Auto) 1.0 /HPF (0.0-6.0) 05/11/21 11:18 Urine Mucus Few /HPF 05/11/21 11:18 Vancomycin Trough 25.3 ug/mL (5.0-20.0) H 05/14/21 15:20 Coronavirus (PCR) Negative (Negative) 05/12/21 10:16 Hepatitis A IgM Ab Non-reactive (NonReactive) 05/12/21 12:30 Hep Bs Antigen Nonreactive (Negative) 05/12/21 12:30 Hep B Core IgM Ab Non-reactive (NonReactive) 05/12/21 12:30 Hepatitis C Antibody Non-reactive (NonReactive) 05/12/21 12:30 Microbiology: Microbiology 05/15/21 09:12 Peripheral/Venous Blood Culture - Preliminary NO GROWTH AFTER 72 HOURS 05/15/21 09:12 Peripheral/Venous Blood Culture - Preliminary NO GROWTH AFTER 72 HOURS Rivas/IV: Voiding Method Indwelling Catheter Active Medications - Current Medications Current Medications: Generic Name Dose Route Start Last Admin Trade Name Freq PRN Reason Stop Dose Admin Acetaminophen 650 mg 05/11/21 21:40 05/14/21 20:06 Acetaminophen 325 Mg Tab PO 650 mg Q4H PRN Administration Pain MILD(1-3)/Fever >100.5/WOODS Arformoterol Tartrate 15 mcg 05/12/21 08:00 05/18/21 08:24 Arformoterol 15 Mcg/2 Ml Nebu IH 15 mcg Q12HRT ABRAHAN Administration Benzonatate 100 mg 05/12/21 15:53 05/13/21 17:01 Benzonatate 100 Mg Cap PO 100 mg Q8HR PRN Administration Cough Budesonide 0.5 mg 05/12/21 08:00 05/18/21 08:24 Budesonide 0.5 Mg/2 Ml Nebu IH 0.5 mg Q12HRT ABRAHAN Administration Cetirizine HCl 10 mg 05/12/21 10:00 05/18/21 09:42 Cetirizine 10 Mg Tab PO Not Given QDAY ABRAHAN Cholecalciferol 5,000 unit 05/12/21 10:00 05/18/21 09:42 Cholecalciferol (Vit D3) 5,000 Unit Tab PO Not Given DAILY ABRAHAN Dexamethasone 6 mg 05/16/21 13:00 05/18/21 09:42 Dexamethasone 4 Mg/Ml Vial IV 6 mg Q24HR ABRAHAN Administration Dextrose 50 ml 05/12/21 11:57 05/16/21 08:30 Dextrose 50% In Water (25gm) 50 Ml Syringe IV 20 ml Q30MIN PRN Administration Hypoglycemia Protocol Enoxaparin Sodium 40 mg 05/14/21 22:00 05/17/21 21:04 Enoxaparin 40 Mg/0.4 Ml Inj SUB-Q 40 mg QDAY@2200 ABRAHAN Administration Protocol NORepinephrine/NS 8 MG-250 ML 8 mg in 250 mls @ 3.75 mls/hr 05/11/21 15:00 05/17/21 11:05 Norepinephrine/Ns 8 Mg-250 Ml (Double Conc) IV 0 mcg/min TITRATE ABRAHAN 0 mls/hr Titration Protocol 2 MCG/MIN Vasopressin 20 unit/ Sodium 101 mls @ 9.09 mls/hr 05/11/21 20:00 05/12/21 17:18 Chloride IV Infused TITR ABRAHAN Titration Protocol 0.03 UNITS/MIN MEROPENEM/NS 1 GRAM/100 ML 1 gram in 100 mls @ 100 mls/hr 05/15/21 15:00 05/18/21 06:39 Merrem/Ns 1 Gram/100 Ml IV 05/22/21 07:59 100 mls/hr Q8H ABRAHAN Administration Protocol Amino Acids/Electrolytes/Dextrose 1,999.92 mls @ 83.33 mls/hr 05/17/21 20:00 05/17/21 21:04 Tpn Adult IV 05/18/21 19:59 83.33 mls/hr DAILY@2000 [facility] Administration Protocol Insulin Human Lispro 0 unit 05/17/21 12:00 05/18/21 06:05 Insulin Lispro 100 Unit/Ml SUB-Q 2 unit Q6HR [facility] Administration Protocol Metoclopramide HCl 10 mg 05/11/21 21:40 Metoclopramide 10 Mg/2 Ml Inj IV Q6H PRN Nausea And Vomiting Montelukast Sodium 10 mg 05/12/21 18:00 05/17/21 19:57 Montelukast 10 Mg Tab PO Not Given QPM [facility] Morphine Sulfate 2 mg 05/11/21 21:40 05/18/21 10:26 Morphine 2 Mg/1 Ml Inj IV 2 mg Q4H PRN Administration Pain, Moderate (4-6) Ondansetron HCl 4 mg 05/11/21 21:40 05/15/21 09:57 Ondansetron 4 Mg/2 Ml Inj IV 4 mg Q8H PRN Administration Nausea And Vomiting Pantoprazole Sodium 40 mg 05/15/21 10:00 05/18/21 09:42 Pantoprazole 40 Mg Inj IV 40 mg QDAY ABRAHAN Administration Sodium Chloride 10 ml 05/11/21 22:00 05/18/21 09:43 Sodium Chloride 0.9% 10 Ml Flush Syringe IV 10 ml BID ABRAHAN Administration Sodium Chloride 10 ml 05/11/21 21:40 05/15/21 00:35 Sodium Chloride 0.9% 10 Ml Flush Syringe IV 10 ml PRN PRN Administration LINE FLUSH Nutrition/Malnutrition Assess - Dietary Evaluation Nutrition/Malnutrition Findings: Nutrition Notes Start: 05/13/21 09:47 Freq: Status: Active Protocol: Document 05/17/21 10:21 MARITZA (Rec: 05/17/21 10:32 [facility] [id number]) Nutrition Notes Initial or Follow up Reassessment Current Diagnosis COPD,Sepsis,Respiratory Failure Other Pertinent Diagnosis Pancreatic CA, pulmonary fibrosis, transaminitis Current Diet PN at 83.33ml/hr Labs/Tests BG 274 CO2 - 35 Phos 1.5 tBili 1.7 Ca 7.7 (adjusted 9.62) Pertinent Medications Decadron, Levophed gtt, Protonix, 30mmol KPhos x 1 dose, Vasopressin gtt, D10W at 30ml/hr Height 5 ft 2 in Weight 78.4 kg [place] Body Weight (kg) 50.00 BMI 31.6 Weight Status Obese Subjective/Other Information Day 1 PN. Percent of energy/protein needs met: 63% energy 85% pro Burn Absent Trauma Absent #1 Nutrition Diagnosis Inadequate protein-energy intake,Altered GI function Comments: CHANGED Etiology hx of pancreatic CA As Evidenced by Signs and Symptoms pt on continuous BiPap with poor oral intake for past few days Is patient on ventilator? No Is Patient Ambulatory and/or Out of Bed No REE-([facility]-confined to bed) [phone] Calculation Used for Recommendations [facility] Additional Notes Pro needs 2g/kg IBW: 100g/day Fluid needs 1ml/kcal Nutrition Intervention Nutrition Support: Continue PN at 83.33ml/hr: MVI , Thiamine, 5% amino acids, 7. 5% dextrose, 75mEq Na, 80mEq K , 40mmol Phos, 100%/0% chloride/acetate. Osmolality: 1030. Kcal 910 Protein (gm) 100 Carbohydrates (gm) 150 Fat (gm) 0 Fluid (mL) 2,000 Fiber (gm) 0 Goal #1 CPN to meet at least 75% energy and pro needs Follow-Up By: 05/18/21 Additional Comments Labs in am: BMP, Mg, Phos
[2021-05-18 13:21] LABS: BUN/Creatinine Ratio 48; Blood Urea Nitrogen 19 mg/dL (7-17); Calcium 7.5 mg/dL (8.4-10.2); Hemolysis Index 16
--- NOTE | 2021-05-18 14:11 | Progress Note ---
Assessment and Plan Cultures: 05/11/2021 blood culture: No growth 05/15/2021 blood culture: No growth A/P: 51-year-old female with pancreatic cancer status post chemo and radiation, not considered a candidate for surgery, COPD, pulmonary fibrosis, chronic respiratory failure requiring 2 L nasal oxygen was admitted with acute onset abdominal pain: #Septic shock: Likely cholangitis from biliary dilatation, has indwelling biliary stent. Off pressors. #Elevated LFTs: GI following, planning MRCP. CT abdomen pelvis showed persistent pancreatic head carcinoma with indwelling metallic stent. #History of pancreatic cancer status post chemo and radiation, not a surgical candidate #Acute on chronic respiratory failure: Has underlying pulmonary fibrosis. Requiring BiPAP. Recs: -continue IV meropenem, D4 of 7, remains off pressors. -awaiting MRCP. GI following -poor prognosis ID will sign off. Please call with questions. Dave Doyle MD, FACP, WAQAS [facility] ([facility]) O: [phone] F: [phone] Subjective Date of service: 05/18/21 Principal diagnosis: Septic shock; Pulm fibrosis; Hypoxemic resp failure; COVID- 19 infxn Interval history: Afebrile. Remains on BiPAP with improvement in FiO2. Remains off pressors. Objective - Exam Narrative Exam: Physical Exam: Constitutional: awake, alert, on BIPAP Head, Ears, Nose: Normocephalic, atraumatic. External ears, nose normal Eyes: Conjunctivae/corneas clear. No icterus. No ptosis. Neck: Limited due to BiPAP Oral: BiPAP Cardiovascular: S1, S2 + Respiratory: AE fair bilaterally, coarse sounds GI: Soft, bowel sounds normal. No peritoneal signs Musculoskeletal: No pedal edema, no cyanosis. Port present, non tender Skin: No rash or abscess Hem/Lymphatic: No palpable cervical or supraclavicular nodes. No lymphangitis Psych: anxious on BiPAP Neurological: awake, alert - Constitutional Vitals: Vital Signs Temp Pulse Resp BP Pulse Ox 98.1 F 85 37 H 123/92 99 05/18/21 11:52 05/18/21 12:00 05/18/21 12:00 05/18/21 12:00 05/18/21 12:00 Temperature -Last 24 Hours Temperature 98.1 F Temperature 98.1 F Temperature 98.8 F Temperature 98.3 F Temperature 97.8 F Temperature 97.9 F - Labs CBC & Chem 7: 05/18/21 04:00 05/18/21 12:50 Labs: Abnormal lab results 05/17/21 05/17/21 05/18/21 Range/Units 16:29 23:37 04:00 RBC 3.34 L (3.65-5.03) M/mm3 RDW 18.8 H (13.2-15.2) % Potassium (3.6-5.0) mmol/L Chloride (98-107) mmol/L Carbon Dioxide (22-30) mmol/L BUN (7-17) mg/dL Creatinine (0.6-1.2) mg/dL Glucose (65-100) mg/dL POC Glucose 219 H 150 H (70-105) mg/dL Calcium (8.4-10.2) mg/dL Phosphorus (2.5-4.5) mg/dL 05/18/21 05/18/21 05/18/21 Range/Units 05:22 09:00 11:16 RBC (3.65-5.03) M/mm3 RDW (13.2-15.2) % Potassium 5.4 H D (3.6-5.0) mmol/L Chloride 97.5 L (98-107) mmol/L Carbon Dioxide 33 H (22-30) mmol/L BUN (7-17) mg/dL Creatinine 0.4 L (0.6-1.2) mg/dL Glucose 461 H (65-100) mg/dL POC Glucose 181 H 168 H (70-105) mg/dL Calcium 7.2 L (8.4-10.2) mg/dL Phosphorus 5.00 H D (2.5-4.5) mg/dL 05/18/21 Range/Units 12:50 RBC (3.65-5.03) M/mm3 RDW (13.2-15.2) % Potassium 3.4 L D (3.6-5.0) mmol/L Chloride (98-107) mmol/L Carbon Dioxide 36 H (22-30) mmol/L BUN 19 H (7-17) mg/dL Creatinine 0.4 L (0.6-1.2) mg/dL Glucose 231 H (65-100) mg/dL POC Glucose (70-105) mg/dL Calcium 7.5 L (8.4-10.2) mg/dL Phosphorus 1.80 L D (2.5-4.5) mg/dL
[2021-05-18] MEDS ORDERED: POTASSIUM PHOSPHATE 45 MMOL in SODIUM CHLORIDE 0.9% 500 ML 500 ML IV ONE (15:00)
[2021-05-18] MEDS: MONTELUKAST 10 MG TAB PO SCH (18:00)
--- NOTE | 2021-05-18 18:43 | Gastroenterology Progress Note ---
Assessment and Plan - Patient Problems (1) Biliary obstruction due to malignant neoplasm Current Visit: Yes Status: Acute Plan to address problem: - The patient has pancreas CA (chemo/Rads). - LFTs are improved with abx and will continue conservative care. - Pulmonary status precludes intervention (though could consider PTC for severe obstruction if able to lay still). Subjective Date of service: 05/18/21 Principal diagnosis: Pancreas CA, Elevated LFT Interval history: The patient is stable, but remains confused. Trying to use phone, but unable to type correct PIN. She has no abdominal pain, and denies vomiting. No fevers documented. Objective - Constitutional Vitals: Temp Pulse Resp BP Pulse Ox 97.6 F 91 H 37 H 111/69 96 05/18/21 16:00 05/18/21 14:00 05/18/21 14:00 05/18/21 14:00 05/18/21 14:00 General appearance: no acute distress - Respiratory Respiratory effort: labored Respiratory: bilateral: CTA (On BiPAP) - Cardiovascular Rhythm: regular Heart Sounds: Present: S1 & S2 - Gastrointestinal General gastrointestinal: Present: soft, non-tender, non-distended - Labs CBC & Chem 7: 05/18/21 04:00 05/18/21 12:50 Labs: Laboratory Results - last 24 hr 05/17/21 05/18/21 05/18/21 23:37 04:00 05:22 WBC 9.8 RBC 3.34 L Hgb 10.5 Hct 32.5 MCV 97 MCH 31 MCHC 32 RDW 18.8 H Plt Count 155 Sodium Potassium Chloride Carbon Dioxide Anion Gap BUN Creatinine Estimated GFR BUN/Creatinine Ratio Glucose POC Glucose 150 H 181 H Calcium Phosphorus Magnesium 05/18/21 05/18/21 05/18/21 09:00 11:16 12:50 WBC RBC Hgb Hct MCV MCH MCHC RDW Plt Count Sodium 137 143 Potassium 5.4 H D 3.4 L D Chloride 97.5 L 100.5 Carbon Dioxide 33 H 36 H Anion Gap 12 10 BUN 17 19 H Creatinine 0.4 L 0.4 L Estimated GFR > 60 > 60 BUN/Creatinine Ratio 43 48 Glucose 461 H 231 H POC Glucose 168 H Calcium 7.2 L 7.5 L Phosphorus 5.00 H D 1.80 L D Magnesium 1.80 1.90 05/18/21 16:29 WBC RBC Hgb Hct MCV MCH MCHC RDW Plt Count Sodium Potassium Chloride Carbon Dioxide Anion Gap BUN Creatinine Estimated GFR BUN/Creatinine Ratio Glucose POC Glucose 196 H Calcium Phosphorus Magnesium
[2021-05-18] MEDS ORDERED: TOTAL PARENTERAL NUTRITION 1,999.92 ML IV SCH (20:00)
[2021-05-18] MEDS: ENOXAPARIN 40 MG/0.4 ML INJ SUB-Q SCH (21:20)
[2021-05-18] MEDS ORDERED: LORazepam 2 MG/ML VIAL IV ONE (22:58)
[2021-05-19] MEDS: INSULIN LISPRO 100 UNIT/ML SUB-Q SCH ×4 (00:57→18:36)
[2021-05-19 05:16] LABS: Blood Urea Nitrogen 25 mg/dL (7-17); Calcium 7.2 mg/dL (8.4-10.2); Hemolysis Index 3
[2021-05-19 05:18] LABS: BUN/Creatinine Ratio 63
[2021-05-19] MEDS: BUDESONIDE 0.5 MG/2 ML NEBU IH SCH ×2 (08:24→21:05)
[2021-05-19] MEDS: ARFORMOTEROL 15 MCG/2 ML NEBU IH SCH ×2 (08:24→21:05)
[2021-05-19] MEDS: PANTOPRAZOLE 40 MG INJ IV SCH (10:07)
[2021-05-19] MEDS: dexAMETHasone 4 MG/ML VIAL IV SCH (10:07)
[2021-05-19] MEDS: MEROPENEM/NS 1 GRAM/100 ML 1 GRAM/100 ML BAG IV SCH ×3 (10:09→23:20)
--- NOTE | 2021-05-19 11:08 | Progress Note ---
Assessment and Plan Assessment and plan: This is a 48-year-old female with past medical history of COPD, pancreatic cancer with radiation s/p pancreatic stent placement, pulmonary fibrosis, chronic respiratory failure on 2 L NC at home admitted with sepsis, transaminitis and lactic acidosis. Hospital Course to Date: 05/12: Patient remains on high-dose Levophed and vasopressin. Given 1 L LR bolus. GI would like an MRCP to be conducted which has been ordered. Patient cleared for sips of water. Added Tessalon due to severe cough. Potassium repleted. Covid PCR negative. 05/13: Remains on Levophed and vasopressin has been off since yesterday evening. Started on stress dose steroids. MRCP pending. Hypokalemia, hypomagnesemia and hypophosphatemia repleted. Liver enzymes trending down. Started on D5 nor mal saline yesterday. 05/14: Patient with worsen respiratory status this am, tachypneic with increased O2 requirement. On full support on the Bipap this am with worsening diffuse bilateral opacities on CXR, s/p X1 dose of IV lasix overnight. Patient remains afebrile with no leukocytosis. Will continue IV Lasix X3 doses, f/u CXR in the am. D/W CCM due to patient worsening respiratory status hold on MRCP for today. Patient is off Levophed this am, leave pressors on standby might need to be put back on low dose pressors with IV diuretic. Patient also noted with Rt. fem CVC which was inserted in the ED, most likely due to be change, unsuccessfult PICC by IVT today and patient is refusing Port access at this time. 05/15: Patient remains on continuous Bipap overnight, desat when bipap is remov ed for mouth care. Plan to wean Fio2 as tolerated for SPO2 goal above 90%. Febrile overnight, TMAX 101.4, on IV abx zosyn, repeat blood culture ordered. Low K and phosph repleted, repeat labs in the am. 05/16: Patient back on full support on the Bipap, still not tolerating FiO2 wean, patient desat in the 80s. D/w CCM plan to continue continuous bipap for now, patient going on over 4 days with no nutrition plan to initiate TPN tomorrow. D10w gtt added for hypoglycemia. Patient platelet continue to steadily drop, given patient's history with continue AC for now, H&H is stable, no s/s of any active bleeding. Electrolytes repleted, will continue to trend CBC, BMP, mg, and phos. MRCP canceled, plan to reorder once patient's respiratory status is more stable. 05/17: Patient remains on continuous Bipap. Patient remains on low dose Levophed, plan to wean off pressors as tolerated for a MAP above 65. Clinimix initiated overnight, plan to start TPN tonight. Hyperglycemic overnight, SSI was initiated. Low phos repleted, repeat lab in the am. 05/18: Down to 60% FIo2 on the Bipap, SPO2 above 97%. Off pressros this am, TPN is running. Patient is now hyperglycemic, SSI adjusted. Consider basal dose, lantus if hyperglycemia persist. This am labs noted, hyperkalemia and really high glucose noted totally different from normal trend, orders placed for redraw. 05/19: Overnight events noted. Started on PRN haldol for agitation. Patient placed on heated high Flow at 100%, 40L SPO2 at 100%. Continue to wean Fio2 as tolerated for SPO2 for SPO2 above 92%. Continue TPN for now. Patient still hyp erglycemic basal dose lantus added Qhs. Assessment and Plan #Neuro: NAD -Avoid delirium -Reorientation as needed -Maintain sleep-wake cycle #CV: Hypotension #h/o HTN -Schedule IV Lasix addedX 3days -off Levophed gtt -Hold home htn medications -BP monitoring per protocol for MAP 65 and above -CCM consulted, appreciate recommendations #Respiratory: Acute on chronic respiratory failure #h/o pulmonary fibrosis #O2 Dependent at home -With worsen respiratory status this am, RR in the high 30s -05/14 Desated overnight, SPO2 in low 60 -Still on full support on Bipap- 60%, 09/03 -05/15 Repeat CXR this with no sig. change, diffuse bilateral opacities -IV lasix X3 days -Check ABG PRN -Plan to wean Fio2 as tolerated -Continue Supplemental oxygen and SPO2 monitoring for SPO2 goal above 90% -Repeat CXR in the am -Tessalon Perles as needed for cough -Pulmonary hygiene -CCM is following #GI: Transaminitis #H/o Pancreatic CA s/p stent placement #Biliary dilation #R/o cholangitis #Nausea/Vomiting- Resolved -CT abdomen/pelvis showed pancreatic cancer with metallic stent with possible occlusion, mild pelvic fluid and mild colonic thickening -GI consulted, patient recommendations -Plan for MRCP once respiratory status is stable, If stent occlusion/biliary obstruction would recommend IR consult for PTC drain per GI -Clinimix initiated overnight, TPN to start tonight -Nutrition consulted -Continue PPI -BR to start once taking p.o. -Acute hepatitis panel negative -PRN antiemetic for N/V #:hypophosphatemia #Hypokalemia-improved #hypomagnesemia-improved -Electrolytes repleted -Continue to monitor and replete electrolytes as needed -Strict intake and output -Purewick in place -Keep patient at a net negatibe balance, net -2.1L in last 24hrs -Daily weights -Renally dose meds, avoid nephrotoxins -Repeat Labs ordered #ID: Sepsis #Leukopcytosis #Lactic acidosis -Presented with elevated WBCs, hypotensive, and with lactic acidosis -COVID swab negative -Blood cultures x2 no growth to date -Leukocytosis downtrending, 8.3 this am -Febrile overnight, repeat blood culture ordered -ID consulted, appreciated recommendation -Continue IV Antibiotic per ID -Monitor WBC and fever curve #Heme/ONC:Thrombocytopenia #h/o Pancreatic Cancer #s/p pancreatic stent placement -S/p radiation -F/U with outpatient with own oncologist -possible stent occlusion, Plan for MRCP -Not a surgical candidate per GI -Right chest post not accessed, patient refused -RUE swelling- RUE doppler neg DVT -Patient with thrombocytopenia, slowly dropping since admit -Given patient's history, will continue AC for now -Continue AC-Lovenox and SCD to bilateral lower extremities while in bed -Trend CBC -Close monitor for s/s of active bleeding #Endo: #Hypoglycemia-resolved -BG as low as 58 -TPN initiated now hyperglycemic -SSI Q6hrs -Lantua Qhs -Continue Hypoglycemia protocol -Avoid hypoglycemia The high probability of a clinically significant, sudden or life threatening deterioration of the [Neuro, GI, endo] system(s) required my full and direct attention, intervention and personal management. The aggregate critical care time was [60] minutes. This time is in addition to time spent performing reported procedures but includes the following: [x] Data Review and interpretation [x] Patient assessment and monitoring of vital signs [x] Documentation [x] Medication orders and management Disposition Plan: ICU Total Time Spent with Patient (Minutes): 60 History Interval history: Patient seen and examined at the bedside. Patient is awake and alert, remains on continuous Bipap, FIo2 back to 100% this am. Patient was agitated and combative overnight, SPO2 dropped in the 80, X1 dose of IV Ativan given. Patient remains on TPN. Hospitalist Physical - Constitutional Vitals: Temp Pulse Resp BP Pulse Ox 98 F 73 25 H 125/82 100 05/19/21 08:00 05/19/21 08:24 05/19/21 08:24 05/19/21 08:19 05/19/21 08:25 General appearance: Present: mild distress, obese - EENT Eyes: Present: PERRL, EOM intact ENT: hearing intact - Neck Neck: Present: normal ROM - Respiratory Respiratory effort: accessory muscle use Respiratory: bilateral: diminished - Cardiovascular Rhythm: regular Heart Sounds: Present: S1 & S2 - Extremities Extremities: no ischemia, pulses intact, pulses symmetrical Extremity abnormal: edema - Peripheral Assessment Generalized Edema Type: Non-pitting Edema Degree: 1+ Capillary Refill: < 3 seconds Skin Temperature: Warm Peripheral Pulses: within normal limits - Abdominal General gastrointestinal: soft, non-tender, normal bowel sounds - Integumentary Integumentary: Present: warm, dry - Psychiatric Psychiatric: appropriate mood/affect, cooperative - Neurologic Neurologic: moves all extremities - Allied Health Allied health notes reviewed: nursing Results - Labs CBC & Chem 7: 05/18/21 04:00 05/19/21 04:08 Labs: Laboratory Last Values WBC 9.8 K/mm3 (4.5-11.0) 05/18/21 04:00 RBC 3.34 M/mm3 (3.65-5.03) L 05/18/21 04:00 Hgb 10.5 gm/dl (10.1-14.3) 05/18/21 04:00 Hct 32.5 % (30.3-42.9) 05/18/21 04:00 MCV 97 fl (79-97) 05/18/21 04:00 MCH 31 pg (28-32) 05/18/21 04:00 MCHC 32 % (30-34) 05/18/21 04:00 RDW 18.8 % (13.2-15.2) H 05/18/21 04:00 Plt Count 155 K/mm3 (140-440) 05/18/21 04:00 Lymph % (Auto) 7.4 % (13.4-35.0) L 05/15/21 04:45 O'Brien % (Auto) 6.7 % (0.0-7.3) 05/15/21 04:45 Eos % (Auto) 4.0 % (0.0-4.3) 05/15/21 04:45 Baso % (Auto) 0.7 % (0.0-1.8) 05/15/21 04:45 Lymph # (Auto) 0.6 K/mm3 (1.2-5.4) L 05/15/21 04:45 O'Brien # (Auto) 0.6 K/mm3 (0.0-0.8) 05/15/21 04:45 Eos # (Auto) 0.3 K/mm3 (0.0-0.4) 05/15/21 04:45 Baso # (Auto) 0.1 K/mm3 (0.0-0.1) 05/15/21 04:45 Add Manual Diff Complete 05/12/21 04:08 Total Counted 200 05/12/21 04:08 Seg Neutrophils % 81.2 % (40.0-70.0) H 05/15/21 04:45 Seg Neuts % (Manual) 85.5 % (40.0-70.0) H 05/12/21 04:08 Band Neutrophils % 8.5 % 05/12/21 04:08 Lymphocytes % (Manual) 2.0 % (13.4-35.0) L 05/12/21 04:08 Monocytes % (Manual) 3.0 % (0.0-7.3) 05/12/21 04:08 Eosinophils % (Manual) 1.0 % (0.0-4.3) 05/12/21 04:08 Nucleated RBC % Not Reportable 05/12/21 04:08 Seg Neutrophils # 6.7 K/mm3 (1.8-7.7) 05/15/21 04:45 Seg Neutrophils # Man 19.5 K/mm3 (1.8-7.7) H 05/12/21 04:08 Band Neutrophils # 1.9 K/mm3 05/12/21 04:08 Lymphocytes # (Manual) 0.5 K/mm3 (1.2-5.4) L 05/12/21 04:08 Abs React Lymphs (Man) 0.0 K/mm3 05/12/21 04:08 Monocytes # (Manual) 0.7 K/mm3 (0.0-0.8) 05/12/21 04:08 Eosinophils # (Manual) 0.2 K/mm3 (0.0-0.4) 05/12/21 04:08 Basophils # (Manual) 0.0 K/mm3 (0.0-0.1) 05/12/21 04:08 Metamyelocytes # 0.0 K/mm3 05/12/21 04:08 Myelocytes # 0.0 K/mm3 05/12/21 04:08 Promyelocytes # 0.0 K/mm3 05/12/21 04:08 Blast Cells # 0.0 K/mm3 05/12/21 04:08 WBC Morphology Not Reportable 05/12/21 04:08 Hypersegmented Neuts Not Reportable 05/12/21 04:08 Hyposegmented Neuts Not Reportable 05/12/21 04:08 Hypogranular Neuts Not Reportable 05/12/21 04:08 Smudge Cells Not Reportable 05/12/21 04:08 Toxic Granulation Not Reportable 05/12/21 04:08 Toxic Vacuolation Not Reportable 05/12/21 04:08 Dohle Bodies Not Reportable 05/12/21 04:08 Pelger-Huet Anomaly Not Reportable 05/12/21 04:08 Elizabeth Rods Not Reportable 05/12/21 04:08 Platelet Estimate Consistent w auto 05/12/21 04:08 Clumped Platelets Not Reportable 05/12/21 04:08 Plt Clumps, EDTA Not Reportable 05/12/21 04:08 Large Platelets Not Reportable 05/12/21 04:08 Giant Platelets Not Reportable 05/12/21 04:08 Platelet Satelliting Not Reportable 05/12/21 04:08 Plt Morphology Comment Not Reportable 05/12/21 04:08 RBC Morphology Not Reportable 05/12/21 04:08 Dimorphic RBCs Not Reportable 05/12/21 04:08 Polychromasia Not Reportable 05/12/21 04:08 Hypochromasia Not Reportable 05/12/21 04:08 Poikilocytosis Not Reportable 05/12/21 04:08 Anisocytosis 1+ 05/12/21 04:08 Microcytosis Not Reportable 05/12/21 04:08 Macrocytosis Not Reportable 05/12/21 04:08 Spherocytes Not Reportable 05/12/21 04:08 Pappenheimer Bodies Not Reportable 05/12/21 04:08 Sickle Cells Not Reportable 05/12/21 04:08 Target Cells Not Reportable 05/12/21 04:08 Tear Drop Cells Not Reportable 05/12/21 04:08 Ovalocytes Not Reportable 05/12/21 04:08 Helmet Cells Not Reportable 05/12/21 04:08 Sibley-Broxton Bodies Not Reportable 05/12/21 04:08 [place] Rings Not Reportable 05/12/21 04:08 Marcin Cells Not Reportable 05/12/21 04:08 Bite Cells Not Reportable 05/12/21 04:08 Crenated Cell Not Reportable 05/12/21 04:08 Elliptocytes Not Reportable 05/12/21 04:08 Acanthocytes (Spur) Not Reportable 05/12/21 04:08 Rouleaux Not Reportable 05/12/21 04:08 Hemoglobin C Crystals Not Reportable 05/12/21 04:08 Schistocytes Not Reportable 05/12/21 04:08 Malaria parasites Not Reportable 05/12/21 04:08 Tahir Bodies Not Reportable 05/12/21 04:08 Hem Pathologist Commnt No 05/12/21 04:08 PT 16.0 Sec. (12.2-14.9) H 05/11/21 05:43 INR 1.16 (0.87-1.13) H 05/11/21 05:43 ABG pH 7.387 pH Units (7.350-7.450) 05/14/21 10:25 ABG pCO2 46.3 mm Hg 05/14/21 10:25 ABG pO2 76.0 mm Hg (80.0-90.0) L 05/14/21 10:25 ABG HCO3 27.2 mmol/L (20.0-26.0) H 05/14/21 10:25 ABG O2 Saturation 96.2 % (95.0-99.0) 05/14/21 10:25 ABG O2 Content 15.3 (0.0-44) 05/14/21 10:25 ABG Base Excess 1.7 mmol/L (-2.0-3.0) 05/14/21 10:25 ABG Hemoglobin 11.5 gm/dl (12.0-16.0) L 05/14/21 10:25 ABG Carboxyhemoglobin 1.1 % (0.0-5.0) 05/14/21 10:25 ABG Methemoglobin 0.7 % (0.0-1.5) 05/14/21 10:25 Oxyhemoglobin 94.4 % (95.0-99.0) L 05/14/21 10:25 FiO2 10 % 05/14/21 10:25 Sodium 146 mmol/L (137-145) H 05/19/21 04:08 Potassium 3.7 mmol/L (3.6-5.0) 05/19/21 04:08 Chloride 105.3 mmol/L (98-107) 05/19/21 04:08 Carbon Dioxide 35 mmol/L (22-30) H 05/19/21 04:08 Anion Gap 9 mmol/L 05/19/21 04:08 BUN 25 mg/dL (7-17) H 05/19/21 04:08 Creatinine 0.4 mg/dL (0.6-1.2) L 05/19/21 04:08 Estimated GFR > 60 ml/min 05/19/21 04:08 BUN/Creatinine Ratio 63 % 05/19/21 04:08 Glucose 218 mg/dL (65-100) H 05/19/21 04:08 POC Glucose 203 mg/dL (70-105) H 05/19/21 05:07 Hemoglobin A1c 5.2 % (4-6) 05/12/21 04:08 Lactic Acid 3.30 mmol/L (0.7-2.0) H* 05/12/21 Unknown Calcium 7.2 mg/dL (8.4-10.2) L 05/19/21 04:08 Phosphorus 3.40 mg/dL (2.5-4.5) D 05/19/21 04:08 Magnesium 1.90 mg/dL (1.7-2.3) 05/19/21 04:08 Total Bilirubin 1.70 mg/dL (0.1-1.2) H 05/17/21 04:15 Direct Bilirubin 1.5 mg/dL (0-0.2) H 05/17/21 04:15 Indirect Bilirubin 0.2 mg/dL 05/17/21 04:15 AST 43 units/L (5-40) H 05/17/21 04:15 ALT 21 units/L (7-56) 05/17/21 04:15 Alkaline Phosphatase 196 units/L (35-129) H 05/17/21 04:15 Total Protein 5.4 g/dL (6.3-8.2) L 05/17/21 04:15 Albumin 1.6 g/dL (3.9-5) L 05/17/21 04:15 Albumin/Globulin Ratio 0.4 % 05/17/21 04:15 Lipase 3 units/L (13-60) L 05/11/21 05:43 Urine Color Deisi (Yellow) 05/11/21 11:18 Urine Turbidity Clear (Clear) 05/11/21 11:18 Urine pH 6.0 (5.0-7.0) 05/11/21 11:18 Ur Specific [place] 1.035 (1.003-1.030) H 05/11/21 11:18 Urine Protein 100 mg/dl mg/dL (Negative) 05/11/21 11:18 Urine Glucose (UA) Neg mg/dL (Negative) 05/11/21 11:18 Urine Ketones Neg mg/dL (Negative) 05/11/21 11:18 Urine Blood Neg (Negative) 05/11/21 11:18 Urine Nitrite Neg (Negative) 05/11/21 11:18 Urine Bilirubin Neg (Negative) 05/11/21 11:18 Urine Urobilinogen < 2.0 mg/dL (<2.0) 05/11/21 11:18 Ur Leukocyte Esterase Neg (Negative) 05/11/21 11:18 Urine WBC (Auto) 2.0 /HPF (0.0-6.0) 05/11/21 11:18 Urine RBC (Auto) 1.0 /HPF (0.0-6.0) 05/11/21 11:18 Urine Mucus Few /HPF 12/17/21 11:18 Vancomycin Trough 25.3 ug/mL (5.0-20.0) H 05/14/21 15:20 Coronavirus (PCR) Negative (Negative) 05/12/21 10:16 Hepatitis A IgM Ab Non-reactive (NonReactive) 05/12/21 12:30 Hep Bs Antigen Nonreactive (Negative) 05/12/21 12:30 Hep B Core IgM Ab Non-reactive (NonReactive) 05/12/21 12:30 Hepatitis C Antibody Non-reactive (NonReactive) 05/12/21 12:30 Microbiology: Microbiology 05/15/21 09:12 Peripheral/Venous Blood Culture - Preliminary NO GROWTH AFTER 4 DAYS 05/15/21 09:12 Peripheral/Venous Blood Culture - Preliminary NO GROWTH AFTER 4 DAYS Rivas/IV: Voiding Method Indwelling Catheter Active Medications - Current Medications Current Medications: Generic Name Dose Route Start Last Admin Trade Name Freq PRN Reason Stop Dose Admin Acetaminophen 650 mg 05/11/21 21:40 05/14/21 20:06 Acetaminophen 325 Mg Tab PO 650 mg Q4H PRN Administration Pain MILD(1-3)/Fever >100.5/WOODS Arformoterol Tartrate 15 mcg 05/12/21 08:00 05/19/21 08:24 Arformoterol 15 Mcg/2 Ml Nebu IH 15 mcg Q12HRT ABRAHAN Administration Benzonatate 100 mg 05/12/21 15:53 05/13/21 17:01 Benzonatate 100 Mg Cap PO 100 mg Q8HR PRN Administration Cough Budesonide 0.5 mg 05/12/21 08:00 05/19/21 08:24 Budesonide 0.5 Mg/2 Ml Nebu IH 0.5 mg Q12HRT ABRAHAN Administration Dexamethasone 6 mg 05/16/21 13:00 05/19/21 10:07 Dexamethasone 4 Mg/Ml Vial IV 6 mg Q24HR ABRAHAN Administration Dextrose 50 ml 05/12/21 11:57 05/16/21 08:30 Dextrose 50% In Water (25gm) 50 Ml Syringe IV 20 ml Q30MIN PRN Administration Hypoglycemia Protocol Enoxaparin Sodium 40 mg 05/14/21 22:00 05/18/21 21:20 Enoxaparin 40 Mg/0.4 Ml Inj SUB-Q 40 mg QDAY@2200 ABRAHAN Administration Protocol NORepinephrine/NS 8 MG-250 ML 8 mg in 250 mls @ 3.75 mls/hr 05/11/21 15:00 05/17/21 11:05 Norepinephrine/Ns 8 Mg-250 Ml (Double Conc) IV 0 mcg/min TITRATE ABRAHAN 0 mls/hr Titration Protocol 2 MCG/MIN Vasopressin 20 unit/ Sodium 101 mls @ 9.09 mls/hr 05/11/21 20:00 05/12/21 17:18 Chloride IV Infused TITR ABRAHAN Titration Protocol 0.03 UNITS/MIN MEROPENEM/NS 1 GRAM/100 ML 1 gram in 100 mls @ 100 mls/hr 05/15/21 15:00 05/19/21 10:09 Merrem/Ns 1 Gram/100 Ml IV 05/22/21 07:59 100 mls/hr Q8H [facility] Administration Protocol Amino Acids/Electrolytes/Dextrose 1,999.92 mls @ 83.33 mls/hr 05/18/21 20:00 05/18/21 21:20 Tpn Adult IV 05/19/21 19:59 83.33 mls/hr DAILY@2000 [facility] Administration Protocol Insulin Glargine 10 units 05/19/21 22:00 Insulin Glargine 100 Units/Ml SUB-Q QHS [facility] Insulin Human Lispro 0 unit 05/17/21 12:00 05/19/21 06:37 Insulin Lispro 100 Unit/Ml SUB-Q 4 unit Q6HR [facility] Administration Protocol Metoclopramide HCl 10 mg 05/11/21 21:40 Metoclopramide 10 Mg/2 Ml Inj IV Q6H PRN Nausea And Vomiting Morphine Sulfate 2 mg 05/11/21 21:40 05/18/21 21:20 Morphine 2 Mg/1 Ml Inj IV 2 mg Q4H PRN Administration Pain, Moderate (4-6) Ondansetron HCl 4 mg 05/11/21 21:40 05/15/21 09:57 Ondansetron 4 Mg/2 Ml Inj IV 4 mg Q8H PRN Administration Nausea And Vomiting Pantoprazole Sodium 40 mg 05/15/21 10:00 05/19/21 10:07 Pantoprazole 40 Mg Inj IV 40 mg QDAY ABRAHAN Administration Sodium Chloride 10 ml 05/11/21 22:00 05/19/21 10:07 Sodium Chloride 0.9% 10 Ml Flush Syringe IV 10 ml BID ABRAHAN Administration Sodium Chloride 10 ml 05/11/21 21:40 05/15/21 00:35 Sodium Chloride 0.9% 10 Ml Flush Syringe IV 10 ml PRN PRN Administration LINE FLUSH Nutrition/Malnutrition Assess - Dietary Evaluation Nutrition/Malnutrition Findings: Nutrition Notes Start: 05/13/21 09:47 Freq: Status: Active Protocol: Document 05/19/21 10:12 CW (Rec: 05/19/21 10:31 CW [id number]) Nutrition Notes Initial or Follow up Reassessment Current Diagnosis COPD,Sepsis,Respiratory Failure Other Pertinent Diagnosis Pancreatic CA, pulmonary fibrosis. Current Diet TPN @ 83.33ml/hr (since 05/16) . Labs/Tests Na 146 CO2 35 BUN 25 BG 218 Pertinent Medications Decardron Hu malog Height 5 ft 2 in Weight 78.4 kg [place] Body Weight (kg) 50.00 BMI 31.6 Weight Status Obese Subjective/Other Information TPN day 3. Burn Absent Trauma Absent Skin Integrity/Comment Intact Current % PO Negligible Minimum of two criteria Yes Fluid Accumulation Mild (non-severe) Reduced Occupational Medicine Officer Strength Measurably Reduced (severe) #2 Nutrition Diagnosis Malnutrition Comments: mild Etiology pancreatic cancer As Evidenced by Signs and Symptoms nonpitting edema and bilater weak county adviser strength #1 Nutrition Diagnosis Inadequate protein-energy intake,Altered GI function Diagnosis Progress(for reassessment Continues documentation) Is patient on ventilator? No Is Patient Ambulatory and/or Out of Bed No REE-([facility]-confined to bed) [phone] Calculation Used for Recommendations [facility] Additional Notes Pro needs 2g/kg IBW: 100g/day Fluid needs 1ml/kcal Nutrition Intervention Change Diet Order: Continue TPN Nutrition Support: Continue TPN at 83.33 ml/hr. Osm: 985 mOsm; 7.5%D, 5%AA 0 mEq Na, 0 mmol phos; multivitamin, thiamine Kcal 910 Protein (gm) 100 Carbohydrates (gm) 150 Fluid (mL) 2,000 Fiber (gm) 0 Goal #1 Provide at least 75% of EER via TPN Follow-Up By: 05/20/21 Additional Comments Labs in am: BMP, Mg, Phos.
[2021-05-19 14:26] LABS: ABG Base Excess 7.2 mmol/L (-2.0-3.0); ABG HCO3 31.4 mmol/L (20.0-26.0); ABG Methemoglobin 0.6 % (0.0-1.5); ABG Oxygen Saturation 98.2 % (95.0-99.0); ABG PCO2 42.9 mm Hg; ABG PH 7.482 pH Units (7.350-7.450); ABG PO2 111.7 mm Hg (80.0-90.0)
--- NOTE | 2021-05-19 15:14 | Gastroenterology Progress Note ---
Assessment and Plan - Patient Problems (1) Biliary obstruction due to malignant neoplasm Current Visit: Yes Status: Acute Plan to address problem: - The patient has hx of pancreas CA 2 years ago (chemo/Rads) history but no obvious recurrence on CT. - Chronic biliary stent in position; some air in intrahepatic ducts, but likely partial occlusion due to duration since placement and mild elevated LFTs. - No signs of sepsis or severe cholangitis. - LFTs are improved with abx and will continue conservative care. - Pulmonary status precludes endoscopic intervention (though could consider PTC for severe obstruction/cholangitis if able to lay still). - Continue current antibiotics regimen. Subjective Date of service: 05/19/21 Principal diagnosis: Pancreas CA, Elevated LFT Interval history: The patient remains confused and agitated (see Nursing notes) but no fevers. Tolerating IV nutrition without event (NPO for BiPAP). Objective - Constitutional Vitals: Temp Pulse Resp BP Pulse Ox 97.6 F 67 28 H 125/86 97 05/19/21 12:00 05/19/21 12:41 05/19/21 12:41 05/19/21 12:41 05/19/21 13:53 General appearance: mild distress - Respiratory Respiratory effort: labored Respiratory: bilateral: CTA (BiPAP) - Cardiovascular Rhythm: regular Heart Sounds: Present: S1 & S2 - Gastrointestinal General gastrointestinal: Present: soft, non-tender, non-distended - Labs CBC & Chem 7: 05/18/21 04:00 05/19/21 04:08 Labs: Laboratory Results - last 24 hr 05/18/21 05/19/21 05/19/21 16:29 00:05 04:08 ABG pH ABG pCO2 ABG pO2 ABG HCO3 ABG O2 Saturation ABG O2 Content ABG Base Excess ABG Hemoglobin ABG Carboxyhemoglobin ABG Methemoglobin Oxyhemoglobin FiO2 Sodium 146 H Potassium 3.7 Chloride 105.3 Carbon Dioxide 35 H Anion Gap 9 BUN 25 H Creatinine 0.4 L Estimated GFR > 60 BUN/Creatinine Ratio 63 Glucose 218 H POC Glucose 196 H 164 H Calcium 7.2 L Phosphorus 3.40 D Magnesium 1.90 05/19/21 05/19/21 05/19/21 05:07 12:16 14:14 ABG pH 7.482 H ABG pCO2 42.9 ABG pO2 111.7 H ABG HCO3 31.4 H ABG O2 Saturation 98.2 ABG O2 Content 15.2 ABG Base Excess 7.2 H ABG Hemoglobin 11.1 L ABG Carboxyhemoglobin 1.1 ABG Methemoglobin 0.6 Oxyhemoglobin 96.4 FiO2 100 Sodium Potassium Chloride Carbon Dioxide Anion Gap BUN Creatinine Estimated GFR BUN/Creatinine Ratio Glucose POC Glucose 203 H 206 H Calcium Phosphorus Magnesium
--- NOTE | 2021-05-19 16:14 | Progress Note ---
Assessment and Plan Septic shock possible hepatobiliary source Lactic acidosis h/o pulmonary fibrosis, Acute on chronic respiratory failure on home O2 of 2 L nasal cannula Transaminitis, biliary dilation, r/o cholangitis Hyperchloremia, metabolic acidosis, hypokalemia Hypoglycemia h/o pancreatic head cancer- chemoradiation therapy h/o Hypertension - improving - transitioned to daytime Vapotherm HFNC and tolerating well so far - use prn Haldol for agitation - continue BIPAP scheduled qhs with prn daytime use - intubate if decompensates - continue supervised ice-chips - continue Dexamethasone - continue care as below otherwise; - wean Levophed for target MAP > 65 mmHg - refusing port-a-cath access; unable to place PICC line; will continue Femoral CVL X 24 hours and re-assess - MRCP pending as she remains tenuous from a respiratory standpoint - continue anti-infective's; de-escalate per ID recommendations - continue accuchecks with glycemic control per SSI (While critically ill target blood glucose of 140-180 mg/dL; avoid hypoglycemia) - continue to wean supplemental oxygen for target O2 sat's > 90% acutely - aspiration precautions - bronchodilators with pulmonary hygiene per RT - avoid nephrotoxins, renally dose all medications - prn analgesia per pain score - Maintenance of sleep-wake cycle, avoid delirium - G.I. & VTE prophylaxis - PT/OT/ROM exercises - mobility protocols for pressure ulcer prophylaxis - Monitor hemodynamics closely - continue other care per attending / other consultants - discharge planning ongoing concurrently .... Re-evaluate in am & prn CONDITION: CRITICAL PROGNOSIS: GUARDED CODE STATUS: FULL CODE The high probability of a clinically significant, sudden or life-threatening d eterioration of the [respiratory, cardiovascular, GI & neurologic] system(s) required my full and direct attention, intervention and personal management. The aggregate critical care time was [32] minutes without overlap. Time includes spent on; [x] Data Review and interpretation [x] Patient assessment and monitoring of vital signs [x] Documentation [x] Medication orders and management Subjective Date of service: 05/19/21 Principal diagnosis: Septic shock; Pulm fibrosis; Hypoxemic resp failure; COVID- 19 infxn Interval history: Patient is seen today for: Septic shock; pulmonary fibrosis; Acute on chronic hypoxemic respiratory failure; Transaminitis; h/o pancreatic head cancer; HTN Seen and examined at bedside; 24hour events reviewed; nursing and respiratory care staff consulted; no adverse overnight events reported to me; resting in bed; doing better; remains on BIPAP but desaturates easily and FiO2 increased to 80%; no overt lethargy and following prompts appropriately; No N/V/F/C Objective Vital Signs - 12hr 05/19/21 05/19/21 05/19/21 04:15 04:30 04:45 Temperature Pulse Rate 65 63 63 Pulse Rate [ Anterior Bilateral Throughout] Respiratory 25 H 25 H 19 Rate Respiratory Rate [Anterior Bilateral Throughout] Blood Pressure 100/62 112/78 112/78 O2 Sat by Pulse 100 100 100 Oximetry 05/19/21 05/19/21 05/19/21 05:00 05:15 05:30 Temperature Pulse Rate 66 59 L 64 Pulse Rate [ Anterior Bilateral Throughout] Respiratory 22 19 23 Rate Respiratory Rate [Anterior Bilateral Throughout] Blood Pressure 112/74 112/74 112/79 O2 Sat by Pulse 100 100 100 Oximetry 05/19/21 05/19/21 05/19/21 05:45 06:01 06:15 Temperature Pulse Rate 75 75 77 Pulse Rate [ Anterior Bilateral Throughout] Respiratory 23 22 19 Rate Respiratory Rate [Anterior Bilateral Throughout] Blood Pressure 112/79 127/85 127/85 O2 Sat by Pulse 100 100 100 Oximetry 05/19/21 05/19/21 05/19/21 06:30 06:45 07:00 Temperature Pulse Rate 76 74 68 Pulse Rate [ Anterior Bilateral Throughout] Respiratory 26 H 22 27 H Rate Respiratory Rate [Anterior Bilateral Throughout] Blood Pressure 134/87 134/87 128/81 O2 Sat by Pulse 100 100 100 Oximetry 05/19/21 05/19/21 05/19/21 07:30 08:00 08:19 Temperature 98 F Pulse Rate 89 84 83 Pulse Rate [ Anterior Bilateral Throughout] Respiratory 24 19 25 H Rate Respiratory Rate [Anterior Bilateral Throughout] Blood Pressure 125/100 125/82 125/82 O2 Sat by Pulse 100 100 100 Oximetry 05/19/21 05/19/21 05/19/21 08:24 08:25 08:30 Temperature Pulse Rate 79 Pulse Rate [ 73 Anterior Bilateral Throughout] Respiratory 28 H Rate Respiratory 25 H Rate [Anterior Bilateral Throughout] Blood Pressure 129/90 O2 Sat by Pulse 100 100 Oximetry 05/19/21 05/19/21 05/19/21 09:00 09:31 10:00 Temperature Pulse Rate 83 73 80 Pulse Rate [ Anterior Bilateral Throughout] Respiratory 23 25 H 30 H Rate Respiratory Rate [Anterior Bilateral Throughout] Blood Pressure 138/95 128/78 126/77 O2 Sat by Pulse 100 100 Oximetry 05/19/21 05/19/21 05/19/21 10:31 11:01 11:30 Temperature Pulse Rate 85 82 75 Pulse Rate [ Anterior Bilateral Throughout] Respiratory 16 18 19 Rate Respiratory Rate [Anterior Bilateral Throughout] Blood Pressure 126/77 117/78 135/94 O2 Sat by Pulse 100 Oximetry 05/19/21 05/19/21 05/19/21 12:00 12:31 12:41 Temperature 97.6 F Pulse Rate 77 85 67 Pulse Rate [ Anterior Bilateral Throughout] Respiratory 15 27 H 28 H Rate Respiratory Rate [Anterior Bilateral Throughout] Blood Pressure 135/94 125/86 125/86 O2 Sat by Pulse 100 100 Oximetry 05/19/21 05/19/21 05/19/21 13:01 13:30 13:53 Temperature Pulse Rate 76 78 Pulse Rate [ Anterior Bilateral Throughout] Respiratory 27 H 24 Rate Respiratory Rate [Anterior Bilateral Throughout] Blood Pressure 125/86 132/111 O2 Sat by Pulse 100 100 97 Oximetry 05/19/21 05/19/21 05/19/21 14:01 14:31 15:01 Temperature Pulse Rate 85 85 84 Pulse Rate [ Anterior Bilateral Throughout] Respiratory 20 25 H 22 Rate Respiratory Rate [Anterior Bilateral Throughout] Blood Pressure 132/111 132/111 122/85 O2 Sat by Pulse 93 100 100 Oximetry 05/19/21 15:30 Temperature Pulse Rate 64 Pulse Rate [ Anterior Bilateral Throughout] Respiratory 23 Rate Respiratory Rate [Anterior Bilateral Throughout] Blood Pressure 110/67 O2 Sat by Pulse 100 Oximetry Constitutional: no acute distress, other (mildly increased respiratory effort at rest on BIPAP 15/10 FIO2 100%) Eyes: non-icteric ENT: oropharynx moist, other (BIPAP FFM) Neck: supple, no lymphadenopathy, no JVD Effort: mildly labored Ascultation: Bilateral: diminished breath sounds, rales Percussion: Bilateral: not dull Cardiovascular: regular rate and rhythm, other (S1,S2) Gastrointestinal: normoactive bowel sounds, hypoactive bowel sounds, soft, non- distended (protuberant) Integumentary: normal Extremities: no cyanosis, no edema, pulses normal, other (right femoral CVL) Neurologic: normal mental status, non-focal exam, pupils equal and round, other (somnolent) Psychiatric: mood appropriate, affect normal, other (somnolenet) CBC and BMP: 05/18/21 04:00 05/19/21 04:08 ABG, PT/INR, D-dimer: ABG ABG pH 7.482 pH Units (7.350-7.450) H 05/19/21 14:14 ABG pCO2 42.9 mm Hg 05/19/21 14:14 ABG pO2 111.7 mm Hg (80.0-90.0) H 05/19/21 14:14 ABG O2 Saturation 98.2 % (95.0-99.0) 05/19/21 14:14 PT/INR, D-dimer PT 16.0 Sec. (12.2-14.9) H 05/11/21 05:43 INR 1.16 (0.87-1.13) H 05/11/21 05:43 Abnormal lab findings: Abnormal Labs 05/11/21 05/11/21 05/11/21 05:43 05:43 05:43 WBC RBC Hgb MCV 98 H RDW 17.7 H Plt Count Lymph % (Auto) 10.8 L Lymph # (Auto) 0.6 L Seg Neutrophils % 84.1 H Seg Neuts % (Manual) Lymphocytes % (Manual) Seg Neutrophils # Man Lymphocytes # (Manual) PT 16.0 H INR 1.16 H ABG pH ABG pO2 ABG HCO3 ABG Base Excess ABG Hemoglobin Oxyhemoglobin Sodium Potassium Chloride Carbon Dioxide 21 L BUN 4 L Creatinine 0.4 L Glucose POC Glucose Lactic Acid Calcium 8.3 L Phosphorus Magnesium Total Bilirubin 2.10 H Direct Bilirubin 1.4 H AST 335 H ALT 57 H Alkaline Phosphatase 339 H Total Protein Albumin 2.4 L Lipase 3 L Ur Specific [place] Vancomycin Trough 05/11/21 05/11/21 05/12/21 11:18 12:28 04:08 WBC RBC Hgb MCV RDW Plt Count Lymph % (Auto) Lymph # (Auto) Seg Neutrophils % Seg Neuts % (Manual) Lymphocytes % (Manual) Seg Neutrophils # Man Lymphocytes # (Manual) PT INR ABG pH ABG pO2 ABG HCO3 ABG Base Excess ABG Hemoglobin Oxyhemoglobin Sodium Potassium Chloride Carbon Dioxide BUN Creatinine Glucose POC Glucose Lactic Acid 4.20 H* 4.50 H* Calcium Phosphorus Magnesium Total Bilirubin Direct Bilirubin AST ALT Alkaline Phosphatase Total Protein Albumin Lipase Ur Specific [place] 1.035 H Vancomycin Trough 05/12/21 05/12/21 05/12/21 04:08 04:08 09:47 WBC 22.8 H RBC 3.39 L Hgb MCV 98 H RDW 17.7 H Plt Count Lymph % (Auto) Lymph # (Auto) Seg Neutrophils % Seg Neuts % (Manual) 85.5 H Lymphocytes % (Manual) 2.0 L Seg Neutrophils # Man 19.5 H Lymphocytes # (Manual) 0.5 L PT INR ABG pH ABG pO2 ABG HCO3 ABG Base Excess ABG Hemoglobin Oxyhemoglobin Sodium Potassium 3.3 L Chloride 108.9 H Carbon Dioxide 17 L BUN 4 L Creatinine 0.5 L Glucose 106 H POC Glucose Lactic Acid 2.60 H* Calcium 6.4 L D Phosphorus Magnesium Total Bilirubin 2.10 H Direct Bilirubin AST 156 H ALT 61 H Alkaline Phosphatase 317 H Total Protein 5.4 L D Albumin 1.8 L Lipase Ur Specific [place] Vancomycin Trough 05/12/21 05/12/21 05/12/21 11:47 12:30 12:36 WBC RBC Hgb MCV RDW Plt Count Lymph % (Auto) Lymph # (Auto) Seg Neutrophils % Seg Neuts % (Manual) Lymphocytes % (Manual) Seg Neutrophils # Man Lymphocytes # (Manual) PT INR ABG pH ABG pO2 ABG HCO3 ABG Base Excess ABG Hemoglobin Oxyhemoglobin Sodium Potassium Chloride Carbon Dioxide BUN Creatinine Glucose POC Glucose 59 L 120 H Lactic Acid 2.50 H* Calcium Phosphorus Magnesium Total Bilirubin Direct Bilirubin AST ALT Alkaline Phosphatase Total Protein Albumin Lipase Ur Specific [place] Vancomycin Trough 05/12/21 05/12/21 05/13/21 23:45 Unknown 04:00 WBC 19.8 H RBC 3.52 L Hgb MCV 98 H RDW 18.5 H Plt Count Lymph % (Auto) Lymph # (Auto) Seg Neutrophils % Seg Neuts % (Manual) Lymphocytes % (Manual) Seg Neutrophils # Man Lymphocytes # (Manual) PT INR ABG pH ABG pO2 ABG HCO3 ABG Base Excess ABG Hemoglobin Oxyhemoglobin Sodium Potassium Chloride Carbon Dioxide BUN Creatinine Glucose POC Glucose 119 H Lactic Acid 3.30 H* Calcium Phosphorus Magnesium Total Bilirubin Direct Bilirubin AST ALT Alkaline Phosphatase Total Protein Albumin Lipase Ur Specific [place] Vancomycin Trough 05/13/21 05/13/21 05/13/21 04:00 05:42 12:19 WBC RBC Hgb MCV RDW Plt Count Lymph % (Auto) Lymph # (Auto) Seg Neutrophils % Seg Neuts % (Manual) Lymphocytes % (Manual) Seg Neutrophils # Man Lymphocytes # (Manual) PT INR ABG pH ABG pO2 ABG HCO3 ABG Base Excess ABG Hemoglobin Oxyhemoglobin Sodium Potassium 3.4 L Chloride 107.1 H Carbon Dioxide 19 L BUN 4 L Creatinine 0.4 L Glucose 157 H POC Glucose 143 H 110 H Lactic Acid Calcium 7.4 L D Phosphorus 1.60 L Magnesium 1.50 L Total Bilirubin 1.40 H Direct Bilirubin AST 95 H ALT Alkaline Phosphatase 328 H Total Protein 5.5 L Albumin 1.6 L Lipase Ur Specific [place] Vancomycin Trough 05/14/21 05/14/21 05/14/21 06:15 06:15 10:25 WBC 11.7 H RBC 3.41 L Hgb MCV 98 H RDW 18.6 H Plt Count Lymph % (Auto) Lymph # (Auto) Seg Neutrophils % Seg Neuts % (Manual) Lymphocytes % (Manual) Seg Neutrophils # Man Lymphocytes # (Manual) PT INR ABG pH ABG pO2 76.0 L ABG HCO3 27.2 H ABG Base Excess ABG Hemoglobin 11.5 L Oxyhemoglobin 94.4 L Sodium Potassium 3.2 L Chloride Carbon Dioxide BUN 6 L Creatinine 0.5 L Glucose 103 H POC Glucose Lactic Acid Calcium 7.3 L Phosphorus 1.70 L Magnesium Total Bilirubin Direct Bilirubin AST 66 H ALT Alkaline Phosphatase 295 H Total Protein 5.3 L Albumin 1.8 L Lipase Ur Specific [place] Vancomycin Trough 05/14/21 05/14/21 05/14/21 15:20 15:20 17:26 WBC RBC Hgb MCV RDW Plt Count Lymph % (Auto) Lymph # (Auto) Seg Neutrophils % Seg Neuts % (Manual) Lymphocytes % (Manual) Seg Neutrophils # Man Lymphocytes # (Manual) PT INR ABG pH ABG pO2 ABG HCO3 ABG Base Excess ABG Hemoglobin Oxyhemoglobin Sodium 146 H D Potassium Chloride 108.4 H Carbon Dioxide BUN 5 L Creatinine 0.5 L Glucose POC Glucose 63 L Lactic Acid Calcium 7.6 L Phosphorus Magnesium Total Bilirubin Direct Bilirubin AST ALT Alkaline Phosphatase Total Protein Albumin Lipase Ur Specific [place] Vancomycin Trough 25.3 H 05/14/21 05/15/21 05/15/21 21:27 00:03 00:29 WBC RBC Hgb MCV RDW Plt Count Lymph % (Auto) Lymph # (Auto) Seg Neutrophils % Seg Neuts % (Manual) Lymphocytes % (Manual) Seg Neutrophils # Man Lymphocytes # (Manual) PT INR ABG pH ABG pO2 ABG HCO3 ABG Base Excess ABG Hemoglobin Oxyhemoglobin Sodium Potassium Chloride Carbon Dioxide BUN Creatinine Glucose POC Glucose 52 L 54 L 129 H Lactic Acid Calcium Phosphorus Magnesium Total Bilirubin Direct Bilirubin AST ALT Alkaline Phosphatase Total Protein Albumin Lipase Ur Specific [place] Vancomycin Trough 05/15/21 05/15/21 05/15/21 04:45 04:45 11:58 WBC RBC 3.24 L Hgb MCV 98 H RDW 18.5 H Plt Count 122 L Lymph % (Auto) 7.4 L Lymph # (Auto) 0.6 L Seg Neutrophils % 81.2 H Seg Neuts % (Manual) Lymphocytes % (Manual) Seg Neutrophils # Man Lymphocytes # (Manual) PT INR ABG pH ABG pO2 ABG HCO3 ABG Base Excess ABG Hemoglobin Oxyhemoglobin Sodium 146 H Potassium 3.1 L Chloride 108.8 H Carbon Dioxide BUN 6 L Creatinine Glucose 121 H POC Glucose 68 L Lactic Acid Calcium 7.5 L Phosphorus 2.30 L D Magnesium Total Bilirubin 1.90 H Direct Bilirubin AST 55 H ALT Alkaline Phosphatase 231 H Total Protein 5.4 L Albumin 1.5 L Lipase Ur Specific [place] Vancomycin Trough 05/15/21 05/16/21 05/16/21 13:50 00:06 00:43 WBC RBC Hgb MCV RDW Plt Count Lymph % (Auto) Lymph # (Auto) Seg Neutrophils % Seg Neuts % (Manual) Lymphocytes % (Manual) Seg Neutrophils # Man Lymphocytes # (Manual) PT INR ABG pH ABG pO2 ABG HCO3 ABG Base Excess ABG Hemoglobin Oxyhemoglobin Sodium Potassium Chloride Carbon Dioxide BUN Creatinine Glucose POC Glucose 147 H 54 L 116 H Lactic Acid Calcium Phosphorus Magnesium Total Bilirubin Direct Bilirubin AST ALT Alkaline Phosphatase Total Protein Albumin Lipase Ur Specific [place] Vancomycin Trough 05/16/21 05/16/21 05/16/21 04:31 04:31 05:58 WBC RBC 3.12 L Hgb 9.8 L MCV 98 H RDW 18.2 H Plt Count 115 L Lymph % (Auto) Lymph # (Auto) Seg Neutrophils % Seg Neuts % (Manual) Lymphocytes % (Manual) Seg Neutrophils # Man Lymphocytes # (Manual) PT INR ABG pH ABG pO2 ABG HCO3 ABG Base Excess ABG Hemoglobin Oxyhemoglobin Sodium 146 H Potassium 3.2 L Chloride Carbon Dioxide BUN 5 L Creatinine 0.5 L Glucose POC Glucose 61 L Lactic Acid Calcium 7.2 L Phosphorus 2.30 L Magnesium Total Bilirubin Direct Bilirubin AST ALT Alkaline Phosphatase Total Protein Albumin Lipase Ur Specific [place] Vancomycin Trough 05/16/21 05/16/21 05/17/21 08:11 23:42 04:15 WBC RBC Hgb MCV RDW Plt Count Lymph % (Auto) Lymph # (Auto) Seg Neutrophils % Seg Neuts % (Manual) Lymphocytes % (Manual) Seg Neutrophils # Man Lymphocytes # (Manual) PT INR ABG pH ABG pO2 ABG HCO3 ABG Base Excess ABG Hemoglobin Oxyhemoglobin Sodium Potassium Chloride Carbon Dioxide BUN Creatinine Glucose POC Glucose 58 L 200 H Lactic Acid Calcium Phosphorus Magnesium Total Bilirubin 1.70 H Direct Bilirubin 1.5 H AST 43 H ALT Alkaline Phosphatase 196 H Total Protein 5.4 L Albumin 1.6 L Lipase Ur Specific [place] Vancomycin Trough 05/17/21 05/17/21 05/17/21 04:15 04:15 05:07 WBC RBC 3.26 L Hgb MCV 98 H RDW 18.9 H Plt Count 114 L Lymph % (Auto) Lymph # (Auto) Seg Neutrophils % Seg Neuts % (Manual) Lymphocytes % (Manual) Seg Neutrophils # Man Lymphocytes # (Manual) PT INR ABG pH ABG pO2 ABG HCO3 ABG Base Excess ABG Hemoglobin Oxyhemoglobin Sodium Potassium Chloride Carbon Dioxide 35 H BUN 5 L Creatinine Glucose 274 H POC Glucose 249 H Lactic Acid Calcium 7.7 L Phosphorus 1.50 L D Magnesium Total Bilirubin Direct Bilirubin AST ALT Alkaline Phosphatase Total Protein Albumin Lipase Ur Specific [place] Vancomycin Trough 05/17/21 05/17/21 05/17/21 11:56 16:29 23:37 WBC RBC Hgb MCV RDW Plt Count Lymph % (Auto) Lymph # (Auto) Seg Neutrophils % Seg Neuts % (Manual) Lymphocytes % (Manual) Seg Neutrophils # Man Lymphocytes # (Manual) PT INR ABG pH ABG pO2 ABG HCO3 ABG Base Excess ABG Hemoglobin Oxyhemoglobin Sodium Potassium Chloride Carbon Dioxide BUN Creatinine Glucose POC Glucose 176 H 219 H 150 H Lactic Acid Calcium Phosphorus Magnesium Total Bilirubin Direct Bilirubin AST ALT Alkaline Phosphatase Total Protein Albumin Lipase Ur Specific [place] Vancomycin Trough 05/18/21 05/18/21 05/18/21 04:00 05:22 09:00 WBC RBC 3.34 L Hgb MCV RDW 18.8 H Plt Count Lymph % (Auto) Lymph # (Auto) Seg Neutrophils % Seg Neuts % (Manual) Lymphocytes % (Manual) Seg Neutrophils # Man Lymphocytes # (Manual) PT INR ABG pH ABG pO2 ABG HCO3 ABG Base Excess ABG Hemoglobin Oxyhemoglobin Sodium Potassium 5.4 H D Chloride 97.5 L Carbon Dioxide 33 H BUN Creatinine 0.4 L Glucose 461 H POC Glucose 181 H Lactic Acid Calcium 7.2 L Phosphorus 5.00 H D Magnesium Total Bilirubin Direct Bilirubin AST ALT Alkaline Phosphatase Total Protein Albumin Lipase Ur Specific [place] Vancomycin Trough 05/18/21 05/18/21 05/18/21 11:16 12:50 16:29 WBC RBC Hgb MCV RDW Plt Count Lymph % (Auto) Lymph # (Auto) Seg Neutrophils % Seg Neuts % (Manual) Lymphocytes % (Manual) Seg Neutrophils # Man Lymphocytes # (Manual) PT INR ABG pH ABG pO2 ABG HCO3 ABG Base Excess ABG Hemoglobin Oxyhemoglobin Sodium Potassium 3.4 L D Chloride Carbon Dioxide 36 H BUN 19 H Creatinine 0.4 L Glucose 231 H POC Glucose 168 H 196 H Lactic Acid Calcium 7.5 L Phosphorus 1.80 L D Magnesium Total Bilirubin Direct Bilirubin AST ALT Alkaline Phosphatase Total Protein Albumin Lipase Ur Specific [place] Vancomycin Trough 05/19/21 05/19/21 05/19/21 00:05 04:08 05:07 WBC RBC Hgb MCV RDW Plt Count Lymph % (Auto) Lymph # (Auto) Seg Neutrophils % Seg Neuts % (Manual) Lymphocytes % (Manual) Seg Neutrophils # Man Lymphocytes # (Manual) PT INR ABG pH ABG pO2 ABG HCO3 ABG Base Excess ABG Hemoglobin Oxyhemoglobin Sodium 146 H Potassium Chloride Carbon Dioxide 35 H BUN 25 H Creatinine 0.4 L Glucose 218 H POC Glucose 164 H 203 H Lactic Acid Calcium 7.2 L Phosphorus Magnesium Total Bilirubin Direct Bilirubin AST ALT Alkaline Phosphatase Total Protein Albumin Lipase Ur Specific [place] Vancomycin Trough 05/19/21 05/19/21 12:16 14:14 WBC RBC Hgb MCV RDW Plt Count Lymph % (Auto) Lymph # (Auto) Seg Neutrophils % Seg Neuts % (Manual) Lymphocytes % (Manual) Seg Neutrophils # Man Lymphocytes # (Manual) PT INR ABG pH 7.482 H ABG pO2 111.7 H ABG HCO3 31.4 H ABG Base Excess 7.2 H ABG Hemoglobin 11.1 L Oxyhemoglobin Sodium Potassium Chloride Carbon Dioxide BUN Creatinine Glucose POC Glucose 206 H Lactic Acid Calcium Phosphorus Magnesium Total Bilirubin Direct Bilirubin AST ALT Alkaline Phosphatase Total Protein Albumin Lipase Ur Specific [place] Vancomycin Trough Allied health notes reviewed: nursing
[2021-05-19] MEDS ORDERED: TOTAL PARENTERAL NUTRITION 1,999.92 ML IV SCH (20:00)
[2021-05-19] MEDS: HALOPERIDOL LACTATE 5 MG/1 ML INJ IV PRN (20:11)
[2021-05-19] MEDS: ENOXAPARIN 40 MG/0.4 ML INJ SUB-Q SCH (21:11)
[2021-05-19] MEDS ORDERED: INSULIN GLARGINE 100 UNITS/ML SUB-Q SCH (22:00)
[2021-05-20 05:54] LABS: Alanine Aminotransferase 170 units/L (7-56); Albumin 1.9 g/dL (3.9-5); Blood Urea Nitrogen 24 mg/dL (7-17); Calcium 7.5 mg/dL (8.4-10.2); Hemolysis Index 21
[2021-05-20 05:58] LABS: BUN/Creatinine Ratio 80
[2021-05-20] MEDS: MEROPENEM/NS 1 GRAM/100 ML 1 GRAM/100 ML BAG IV SCH ×3 (06:43→23:19)
[2021-05-20] MEDS: INSULIN LISPRO 100 UNIT/ML SUB-Q SCH ×3 (06:44→17:23)
[2021-05-20] MEDS: BUDESONIDE 0.5 MG/2 ML NEBU IH SCH ×2 (07:28→21:53)
[2021-05-20] MEDS: ARFORMOTEROL 15 MCG/2 ML NEBU IH SCH ×2 (07:28→21:53)
--- NOTE | 2021-05-20 08:39 | Gastroenterology Progress Note ---
Assessment and Plan Liver enzymes elevated to day. However the bilirubin and alkaline phosphatase are actually trending down and is just the AST and ALT which are rising significantly this argues against biliary obstruction Acute hepatitis panel is negative Therefore has not differential diagnosis is medication related, mild ischemic hepatitis (reports of repeated episodes of hypoxia overnight), etc. Recommend continuing to trend LFTs and trend INR daily as well please and we will continue to follow - Patient Problems (1) Elevated bilirubin Current Visit: Yes Status: Acute (2) Elevated liver enzymes Current Visit: Yes Status: Acute (3) Sepsis Current Visit: Yes Status: Acute (4) Transaminitis Current Visit: Yes Status: Acute (5) Pancreatic cancer Current Visit: Yes Status: Chronic Qualifiers: Pancreatic malignancy location: body of pancreas Qualified Code(s): C25.1 - Malignant neoplasm of body of pancreas (6) Interstitial lung disease Current Visit: No Status: Acute Subjective Date of service: 05/20/21 Principal diagnosis: Septic shock; Pulm fibrosis; Hypoxemic resp failure; COVID- 19 infxn Interval history: had episodes hypoxia requiring bipap, patient currently with good oxygen saturation but slightly tachypneic Does report tenderness to palpation right upper quadrant Objective - Constitutional Vitals: Temp Pulse Resp BP Pulse Ox 97.4 F L 87 30 H 108/55 100 05/20/21 04:00 05/20/21 07:36 05/20/21 07:36 05/20/21 07:28 05/20/21 07:36 General appearance: other (BiPAP on, mildly tachypneic) - EENT Eyes: EOM intact ENT: hearing intact - Neck Neck: supple - Respiratory Respiratory effort: other (Tachypneic on BiPAP) - Gastrointestinal General gastrointestinal: Present: soft, tender - Integumentary Integumentary: Present: dry - Labs CBC & Chem 7: 05/18/21 04:00 05/20/21 04:30 Labs: Laboratory Results - last 24 hr 05/19/21 05/19/21 05/19/21 12:16 14:14 17:11 ABG pH 7.482 H ABG pCO2 42.9 ABG pO2 111.7 H ABG HCO3 31.4 H ABG O2 Saturation 98.2 ABG O2 Content 15.2 ABG Base Excess 7.2 H ABG Hemoglobin 11.1 L ABG Carboxyhemoglobin 1.1 ABG Methemoglobin 0.6 Oxyhemoglobin 96.4 FiO2 100 Sodium Potassium Chloride Carbon Dioxide Anion Gap BUN Creatinine Estimated GFR BUN/Creatinine Ratio Glucose POC Glucose 206 H 194 H Calcium Phosphorus Magnesium Total Bilirubin AST ALT Alkaline Phosphatase Total Protein Albumin Albumin/Globulin Ratio 05/20/21 05/20/21 05/20/21 00:01 04:30 06:09 ABG pH ABG pCO2 ABG pO2 ABG HCO3 ABG O2 Saturation ABG O2 Content ABG Base Excess ABG Hemoglobin ABG Carboxyhemoglobin ABG Methemoglobin Oxyhemoglobin FiO2 Sodium 144 Potassium 3.5 L Chloride 106.5 Carbon Dioxide 28 D Anion Gap 13 BUN 24 H Creatinine 0.3 L Estimated GFR > 60 BUN/Creatinine Ratio 80 Glucose 254 H POC Glucose 209 H 210 H Calcium 7.5 L Phosphorus 1.90 L D Magnesium 2.10 Total Bilirubin 1.60 H AST 201 H ALT 170 H Alkaline Phosphatase 169 H Total Protein 5.3 L Albumin 1.9 L Albumin/Globulin Ratio 0.6
[2021-05-20] MEDS ORDERED: POTASSIUM PHOSPHATE 45 MMOL in SODIUM CHLORIDE 0.9% 500 ML 500 ML IV ONE (09:00)
[2021-05-20] MEDS: dexAMETHasone 4 MG/ML VIAL IV SCH (10:12)
[2021-05-20] MEDS: PANTOPRAZOLE 40 MG INJ IV SCH (10:13)
[2021-05-20] MEDS: MORPHINE 2 MG/1 ML INJ IV PRN ×3 (10:14→23:35)
--- NOTE | 2021-05-20 12:39 | Progress Note ---
Assessment and Plan Assessment and plan: This is a 48-year-old female with past medical history of COPD, pancreatic cancer with radiation s/p pancreatic stent placement, pulmonary fibrosis, chronic respiratory failure on 2 L NC at home admitted with sepsis, transaminitis and lactic acidosis. Hospital Course to Date: 05/12: Patient remains on high-dose Levophed and vasopressin. Given 1 L LR bolus. GI would like an MRCP to be conducted which has been ordered. Patient cleared for sips of water. Added Tessalon due to severe cough. Potassium repleted. Covid PCR negative. 05/13: Remains on Levophed and vasopressin has been off since yesterday evening. Started on stress dose steroids. MRCP pending. Hypokalemia, hypomagnesemia and hypophosphatemia repleted. Liver enzymes trending down. Started on D5 nor mal saline yesterday. 05/14: Patient with worsen respiratory status this am, tachypneic with increased O2 requirement. On full support on the Bipap this am with worsening diffuse bilateral opacities on CXR, s/p X1 dose of IV lasix overnight. Patient remains afebrile with no leukocytosis. Will continue IV Lasix X3 doses, f/u CXR in the am. D/W CCM due to patient worsening respiratory status hold on MRCP for today. Patient is off Levophed this am, leave pressors on standby might need to be put back on low dose pressors with IV diuretic. Patient also noted with Rt. fem CVC which was inserted in the ED, most likely due to be change, unsuccessfult PICC by IVT today and patient is refusing Port access at this time. 05/15: Patient remains on continuous Bipap overnight, desat when bipap is remov ed for mouth care. Plan to wean Fio2 as tolerated for SPO2 goal above 90%. Febrile overnight, TMAX 101.4, on IV abx zosyn, repeat blood culture ordered. Low K and phosph repleted, repeat labs in the am. 05/16: Patient back on full support on the Bipap, still not tolerating FiO2 wean, patient desat in the 80s. D/w CCM plan to continue continuous bipap for now, patient going on over 4 days with no nutrition plan to initiate TPN tomorrow. D10w gtt added for hypoglycemia. Patient platelet continue to steadily drop, given patient's history with continue AC for now, H&H is stable, no s/s of any active bleeding. Electrolytes repleted, will continue to trend CBC, BMP, mg, and phos. MRCP canceled, plan to reorder once patient's respiratory status is more stable. 05/17: Patient remains on continuous Bipap. Patient remains on low dose Levophed, plan to wean off pressors as tolerated for a MAP above 65. Clinimix initiated overnight, plan to start TPN tonight. Hyperglycemic overnight, SSI was initiated. Low phos repleted, repeat lab in the am. 05/18: Down to 60% FIo2 on the Bipap, SPO2 above 97%. Off pressros this am, TPN is running. Patient is now hyperglycemic, SSI adjusted. Consider basal dose, lantus if hyperglycemia persist. This am labs noted, hyperkalemia and really high glucose noted totally different from normal trend, orders placed for redraw. 05/19: Overnight events noted. Started on PRN haldol for agitation. Patient placed on heated high Flow at 100%, 40L SPO2 at 100%. Continue to wean Fio2 as tolerated for SPO2 for SPO2 above 92%. Continue TPN for now. Patient still hyp erglycemic basal dose lantus added Qhs. 05/20: Patient is tolerating HHFL NC, SPO2 above 95%. Continue HHFL NC during and Bipap at night. Still on TPN for nutrition, hyperglycemia persists- basal insulin increased. Low K and phosp was repleted, repeat lab in the am. Assessment and Plan #Neuro: NAD -Avoid delirium -Reorientation as needed -Maintain sleep-wake cycle #CV: Hypotension #h/o HTN -Schedule IV Lasix addedX 3days -off Levophed gtt -Hold home htn medications -BP monitoring per protocol for MAP 65 and above -[facility] consulted, appreciate recommendations #Respiratory: Acute on chronic respiratory failure #h/o pulmonary fibrosis #O2 Dependent at home -With worsen respiratory status this am, RR in the high 30s -05/14 Desated overnight, SPO2 in low 60 -05/15 Repeat CXR this with no sig. change, diffuse bilateral opacities -On HHFL NC at 100%, 40L, SPO2 above 95% -Bipap at night -Check ABG PRN -Plan to wean Fio2 as tolerated -Continue Supplemental oxygen and SPO2 monitoring for SPO2 goal above 90% -Repeat CXR in the am -Tessalon Perles as needed for cough -Pulmonary hygiene -CCM is following #GI: Transaminitis #H/o Pancreatic CA s/p stent placement #Biliary dilation #R/o cholangitis #Nausea/Vomiting- Resolved -CT abdomen/pelvis showed pancreatic cancer with metallic stent with possible occlusion, mild pelvic fluid and mild colonic thickening -GI consulted, patient recommendations -Plan for MRCP once respiratory status is stable, If stent occlusion/biliary obstruction would recommend IR consult for PTC drain per GI -Clinimix initiated overnight, TPN to start tonight -Nutrition consulted -Continue PPI -BR to start once taking p.o. -Acute hepatitis panel negative -PRN antiemetic for N/V #:hypophosphatemia #Hypokalemia #hypomagnesemia-improved -Electrolytes repleted -Continue to monitor and replete electrolytes as needed -Strict intake and output -Purewick in place -Keep patient at a net negatibe balance, net -2.1L in last 24hrs -Daily weights -Renally dose meds, avoid nephrotoxins -Repeat Labs ordered #ID: Sepsis #Leukopcytosis #Lactic acidosis -Presented with elevated WBCs, hypotensive, and with lactic acidosis -COVID swab negative -Blood cultures x2 no growth to date -Leukocytosis downtrending, 8.3 this am -Febrile overnight, repeat blood culture ordered -ID consulted, appreciated recommendation -Continue IV Antibiotic per ID -Monitor WBC and fever curve #Heme/ONC:Thrombocytopenia #h/o Pancreatic Cancer #s/p pancreatic stent placement -S/p radiation -F/U with outpatient with own oncologist -possible stent occlusion, Plan for MRCP -Not a surgical candidate per GI -Right chest post not accessed, patient refused -RUE swelling- RUE doppler neg DVT -Patient with thrombocytopenia, slowly dropping since admit -Given patient's history, will continue AC for now -Continue AC-Lovenox and SCD to bilateral lower extremities while in bed -Trend CBC -Close monitor for s/s of active bleeding #Endo:Hyperglycemia #Hypoglycemia-resolved -BG as low as 58 -TPN initiated now hyperglycemic -SSI Q6hrs -Lantus increased -Avoid hypoglycemia The high probability of a clinically significant, sudden or life threatening deterioration of the [Respiratory, , Endo] system(s) required my full and direct attention, intervention and personal management. The aggregate critical care time was [60] minutes. This time is in addition to time spent performing reported procedures but includes the following: [x] Data Review and interpretation [x] Patient assessment and monitoring of vital signs [x] Documentation [x] Medication orders and management Disposition Plan: ICU Total Time Spent with Patient (Minutes): 60 History Interval history: Patient seen and examined at the bedside. Patient is awake and alert, on heated high flow NC this am at 100% and 40L. Per nursing staff, patient desated overnight on the HHFL SPO2 in the low 70s and she was placed back on the Bipap o vernight. Hospitalist Physical - Constitutional Vitals: Temp Pulse Resp BP Pulse Ox 98.0 F 93 H 29 H 109/72 98 05/20/21 12:00 05/20/21 09:00 05/20/21 09:00 05/20/21 09:00 05/20/21 09:00 General appearance: Present: no acute distress, obese - EENT Eyes: Present: PERRL, EOM intact ENT: hearing intact - Neck Neck: Present: normal ROM - Respiratory Respiratory effort: labored Respiratory: bilateral: diminished - Cardiovascular Rhythm: regular Heart Sounds: Present: S1 & S2 - Extremities Extremities: no ischemia, pulses intact, pulses symmetrical Extremity abnormal: edema - Peripheral Assessment Generalized Edema Type: Non-pitting Edema Degree: 1+ Capillary Refill: < 3 seconds Skin Temperature: Warm Peripheral Pulses: within normal limits - Abdominal General gastrointestinal: soft, non-tender, normal bowel sounds - Integumentary Integumentary: Present: warm, dry - Psychiatric Psychiatric: appropriate mood/affect, cooperative - Neurologic Neurologic: moves all extremities - Allied Health Allied health notes reviewed: nursing Results - Labs CBC & Chem 7: 05/18/21 04:00 05/20/21 04:30 Labs: Laboratory Last Values WBC 9.8 K/mm3 (4.5-11.0) 05/18/21 04:00 RBC 3.34 M/mm3 (3.65-5.03) L 05/18/21 04:00 Hgb 10.5 gm/dl (10.1-14.3) 05/18/21 04:00 Hct 32.5 % (30.3-42.9) 05/18/21 04:00 MCV 97 fl (79-97) 05/18/21 04:00 MCH 31 pg (28-32) 05/18/21 04:00 MCHC 32 % (30-34) 05/18/21 04:00 RDW 18.8 % (13.2-15.2) H 05/18/21 04:00 Plt Count 155 K/mm3 (140-440) 05/18/21 04:00 Lymph % (Auto) 7.4 % (13.4-35.0) L 05/15/21 04:45 [place] % (Auto) 6.7 % (0.0-7.3) 05/15/21 04:45 Eos % (Auto) 4.0 % (0.0-4.3) 05/15/21 04:45 Baso % (Auto) 0.7 % (0.0-1.8) 05/15/21 04:45 Lymph # (Auto) 0.6 K/mm3 (1.2-5.4) L 05/15/21 04:45 [place] # (Auto) 0.6 K/mm3 (0.0-0.8) 05/15/21 04:45 Eos # (Auto) 0.3 K/mm3 (0.0-0.4) 05/15/21 04:45 Baso # (Auto) 0.1 K/mm3 (0.0-0.1) 05/15/21 04:45 Add Manual Diff Complete 05/12/21 04:08 Total Counted 200 05/12/21 04:08 Seg Neutrophils % 81.2 % (40.0-70.0) H 05/15/21 04:45 Seg Neuts % (Manual) 85.5 % (40.0-70.0) H 05/12/21 04:08 Band Neutrophils % 8.5 % 05/12/21 04:08 Lymphocytes % (Manual) 2.0 % (13.4-35.0) L 05/12/21 04:08 Monocytes % (Manual) 3.0 % (0.0-7.3) 05/12/21 04:08 Eosinophils % (Manual) 1.0 % (0.0-4.3) 05/12/21 04:08 Nucleated RBC % Not Reportable 05/12/21 04:08 Seg Neutrophils # 6.7 K/mm3 (1.8-7.7) 05/15/21 04:45 Seg Neutrophils # Man 19.5 K/mm3 (1.8-7.7) H 05/12/21 04:08 Band Neutrophils # 1.9 K/mm3 05/12/21 04:08 Lymphocytes # (Manual) 0.5 K/mm3 (1.2-5.4) L 05/12/21 04:08 Abs React Lymphs (Man) 0.0 K/mm3 05/12/21 04:08 Monocytes # (Manual) 0.7 K/mm3 (0.0-0.8) 05/12/21 04:08 Eosinophils # (Manual) 0.2 K/mm3 (0.0-0.4) 05/12/21 04:08 Basophils # (Manual) 0.0 K/mm3 (0.0-0.1) 05/12/21 04:08 Metamyelocytes # 0.0 K/mm3 05/12/21 04:08 Myelocytes # 0.0 K/mm3 05/12/21 04:08 Promyelocytes # 0.0 K/mm3 05/12/21 04:08 Blast Cells # 0.0 K/mm3 05/12/21 04:08 WBC Morphology Not Reportable 05/12/21 04:08 Hypersegmented Neuts Not Reportable 05/12/21 04:08 Hyposegmented Neuts Not Reportable 05/12/21 04:08 Hypogranular Neuts Not Reportable 05/12/21 04:08 Smudge Cells Not Reportable 05/12/21 04:08 Toxic Granulation Not Reportable 05/12/21 04:08 Toxic Vacuolation Not Reportable 05/12/21 04:08 Dohle Bodies Not Reportable 05/12/21 04:08 Pelger-Huet Anomaly Not Reportable 05/12/21 04:08 Elizabeth Rods Not Reportable 05/12/21 04:08 Platelet Estimate Consistent w auto 05/12/21 04:08 Clumped Platelets Not Reportable 05/12/21 04:08 Plt Clumps, EDTA Not Reportable 05/12/21 04:08 Large Platelets Not Reportable 05/12/21 04:08 Giant Platelets Not Reportable 05/12/21 04:08 Platelet Satelliting Not Reportable 05/12/21 04:08 Plt Morphology Comment Not Reportable 05/12/21 04:08 RBC Morphology Not Reportable 05/12/21 04:08 Dimorphic RBCs Not Reportable 05/12/21 04:08 Polychromasia Not Reportable 05/12/21 04:08 Hypochromasia Not Reportable 05/12/21 04:08 Poikilocytosis Not Reportable 05/12/21 04:08 Anisocytosis 1+ 05/12/21 04:08 Microcytosis Not Reportable 05/12/21 04:08 Macrocytosis Not Reportable 05/12/21 04:08 Spherocytes Not Reportable 05/12/21 04:08 Pappenheimer Bodies Not Reportable 05/12/21 04:08 Sickle Cells Not Reportable 05/12/21 04:08 Target Cells Not Reportable 05/12/21 04:08 Tear Drop Cells Not Reportable 05/12/21 04:08 Ovalocytes Not Reportable 05/12/21 04:08 Helmet Cells Not Reportable 05/12/21 04:08 [place] Bodies Not Reportable 05/12/21 04:08 [place] Rings Not Reportable 05/12/21 04:08 Anza Cells Not Reportable 05/12/21 04:08 Bite Cells Not Reportable 05/12/21 04:08 Crenated Cell Not Reportable 05/12/21 04:08 Elliptocytes Not Reportable 05/12/21 04:08 Acanthocytes (Spur) Not Reportable 05/12/21 04:08 Rouleaux Not Reportable 05/12/21 04:08 Hemoglobin C Crystals Not Reportable 05/12/21 04:08 Schistocytes Not Reportable 05/12/21 04:08 Malaria parasites Not Reportable 05/12/21 04:08 [place]ir Bodies Not Reportable 05/12/21 04:08 Hem Pathologist Commnt No 05/12/21 04:08 PT 16.0 Sec. (12.2-14.9) H 05/11/21 05:43 INR 1.16 (0.87-1.13) H 05/11/21 05:43 ABG pH 7.482 pH Units (7.350-7.450) H 05/19/21 14:14 ABG pCO2 42.9 mm Hg 05/19/21 14:14 ABG pO2 111.7 mm Hg (80.0-90.0) H 05/19/21 14:14 ABG HCO3 31.4 mmol/L (20.0-26.0) H 05/19/21 14:14 ABG O2 Saturation 98.2 % (95.0-99.0) 05/19/21 14:14 ABG O2 Content 15.2 (0.0-44) 05/19/21 14:14 ABG Base Excess 7.2 mmol/L (-2.0-3.0) H 05/19/21 14:14 ABG Hemoglobin 11.1 gm/dl (12.0-16.0) L 05/19/21 14:14 ABG Carboxyhemoglobin 1.1 % (0.0-5.0) 05/19/21 14:14 ABG Methemoglobin 0.6 % (0.0-1.5) 05/19/21 14:14 Oxyhemoglobin 96.4 % (95.0-99.0) 05/19/21 14:14 FiO2 100 % 05/19/21 14:14 Sodium 144 mmol/L (137-145) 05/20/21 04:30 Potassium 3.5 mmol/L (3.6-5.0) L 05/20/21 04:30 Chloride 106.5 mmol/L (98-107) 05/20/21 04:30 Carbon Dioxide 28 mmol/L (22-30) D 05/20/21 04:30 Anion Gap 13 mmol/L 05/20/21 04:30 BUN 24 mg/dL (7-17) H 05/20/21 04:30 Creatinine 0.3 mg/dL (0.6-1.2) L 05/20/21 04:30 Estimated GFR > 60 ml/min 05/20/21 04:30 BUN/Creatinine Ratio 80 % 05/20/21 04:30 Glucose 254 mg/dL (65-100) H 05/20/21 04:30 POC Glucose 158 mg/dL (70-105) H 05/20/21 11:41 Hemoglobin A1c 5.2 % (4-6) 05/12/21 04:08 Lactic Acid 3.30 mmol/L (0.7-2.0) H* 05/12/21 Unknown Calcium 7.5 mg/dL (8.4-10.2) L 05/20/21 04:30 Phosphorus 1.90 mg/dL (2.5-4.5) L D 05/20/21 04:30 Magnesium 2.10 mg/dL (1.7-2.3) 05/20/21 04:30 Total Bilirubin 1.60 mg/dL (0.1-1.2) H 05/20/21 04:30 Direct Bilirubin 1.5 mg/dL (0-0.2) H 05/17/21 04:15 Indirect Bilirubin 0.2 mg/dL 05/17/21 04:15 AST 201 units/L (5-40) H 05/20/21 04:30 ALT 170 units/L (7-56) H 05/20/21 04:30 Alkaline Phosphatase 169 units/L (35-129) H 05/20/21 04:30 Total Protein 5.3 g/dL (6.3-8.2) L 05/20/21 04:30 Albumin 1.9 g/dL (3.9-5) L 05/20/21 04:30 Albumin/Globulin Ratio 0.6 % 05/20/21 04:30 Lipase 3 units/L (13-60) L 05/11/21 05:43 Urine Color [place] (Yellow) 05/11/21 11:18 Urine Turbidity Clear (Clear) 05/11/21 11:18 Urine pH 6.0 (5.0-7.0) 05/11/21 11:18 Ur Specific [place] 1.035 (1.003-1.030) H 05/11/21 11:18 Urine Protein 100 mg/dl mg/dL (Negative) 05/11/21 11:18 Urine Glucose (UA) Neg mg/dL (Negative) 05/11/21 11:18 Urine Ketones Neg mg/dL (Negative) 05/11/21 11:18 Urine Blood Neg (Negative) 05/11/21 11:18 Urine Nitrite Neg (Negative) 05/11/21 11:18 Urine Bilirubin Neg (Negative) 05/11/21 11:18 Urine Urobilinogen < 2.0 mg/dL (<2.0) 05/11/21 11:18 Ur Leukocyte Esterase Neg (Negative) 05/11/21 11:18 Urine WBC (Auto) 2.0 /HPF (0.0-6.0) 05/11/21 11:18 Urine RBC (Auto) 1.0 /HPF (0.0-6.0) 05/11/21 11:18 Urine Mucus Few /HPF 05/11/21 11:18 Vancomycin Trough 25.3 ug/mL (5.0-20.0) H 05/14/21 15:20 Coronavirus (PCR) Negative (Negative) 05/12/21 10:16 Hepatitis A IgM Ab Non-reactive (NonReactive) 05/12/21 12:30 Hep Bs Antigen Nonreactive (Negative) 05/12/21 12:30 Hep B Core IgM Ab Non-reactive (NonReactive) 05/12/21 12:30 Hepatitis C Antibody Non-reactive (NonReactive) 05/12/21 12:30 Microbiology: Microbiology 05/15/21 09:12 Peripheral/Venous Blood Culture - Final NO GROWTH AFTER 5 DAYS 05/15/21 09:12 Peripheral/Venous Blood Culture - Final NO GROWTH AFTER 5 DAYS Rivas/IV: Voiding Method Indwelling Catheter Active Medications - Current Medications Current Medications: Generic Name Dose Route Start Last Admin Trade Name Freq PRN Reason Stop Dose Admin Acetaminophen 650 mg 05/11/21 21:40 05/14/21 20:06 Acetaminophen 325 Mg Tab PO 650 mg Q4H PRN Administration Pain MILD(1-3)/Fever >100.5/WOODS Arformoterol Tartrate 15 mcg 05/12/21 08:00 05/20/21 07:28 Arformoterol 15 Mcg/2 Ml Nebu IH 15 mcg Q12HRT ABRAHAN Administration Benzonatate 100 mg 05/12/21 15:53 05/13/21 17:01 Benzonatate 100 Mg Cap PO 100 mg Q8HR PRN Administration Cough Budesonide 0.5 mg 05/12/21 08:00 05/20/21 07:28 Budesonide 0.5 Mg/2 Ml Nebu IH 0.5 mg Q12HRT ABRAHAN Administration Dexamethasone 6 mg 05/16/21 13:00 05/20/21 10:12 Dexamethasone 4 Mg/Ml Vial IV 6 mg Q24HR ABRAHAN Administration Dextrose 50 ml 05/12/21 11:57 05/16/21 08:30 Dextrose 50% In Water (25gm) 50 Ml Syringe IV 20 ml Q30MIN PRN Administration Hypoglycemia Protocol Enoxaparin Sodium 40 mg 05/14/21 22:00 05/19/21 21:11 Enoxaparin 40 Mg/0.4 Ml Inj SUB-Q 40 mg QDAY@2200 [facility] Administration Protocol Haloperidol Lactate 5 mg 05/19/21 15:00 05/19/21 20:11 Haloperidol Lactate 5 Mg/1 Ml Inj IV 5 mg Q8H PRN Administration Agitation NORepinephrine/NS 8 MG-250 ML 8 mg in 250 mls @ 3.75 mls/hr 05/11/21 15:00 05/17/21 11:05 Norepinephrine/Ns 8 Mg-250 Ml (Double Conc) IV 0 mcg/min TITRATE ABRAHAN 0 mls/hr Titration Protocol 2 MCG/MIN MEROPENEM/NS 1 GRAM/100 ML 1 gram in 100 mls @ 100 mls/hr 05/15/21 15:00 05/20/21 06:43 Merrem/Ns 1 Gram/100 Ml IV 05/22/21 07:59 100 mls/hr Q8H [facility] Administration Protocol Amino Acids/Electrolytes/Dextrose 1,999.92 mls @ 83.33 mls/hr 05/19/21 20:00 05/19/21 21:10 Tpn Adult IV 05/20/21 19:59 83.33 mls/hr [email or web address] [facility] Administration Protocol Potassium Phosphate 45 mmol/ 515 mls @ 85 mls/hr 05/20/21 09:00 05/20/21 10:12 Sodium Chloride IV 05/20/21 15:03 85 mls/hr ONCE ONE Administration Amino Acids/Electrolytes/Dextrose 1,999.92 mls @ 83.33 mls/hr 05/20/21 20:00 Tpn Adult IV 05/21/21 19:59 [email or web address]@[email or web address] [facility] Protocol Insulin Glargine 15 units 05/20/21 22:00 Insulin Glargine 100 Units/Ml SUB-Q QHS [facility] Insulin Human Lispro 0 unit 05/17/21 12:00 05/20/21 06:44 Insulin Lispro 100 Unit/Ml SUB-Q 4 unit Q6HR [facility] Administration Protocol Metoclopramide HCl 10 mg 05/11/21 21:40 Metoclopramide 10 Mg/2 Ml Inj IV Q6H PRN Nausea And Vomiting Morphine Sulfate 2 mg 05/11/21 21:40 05/20/21 10:14 Morphine 2 Mg/1 Ml Inj IV 2 mg Q4H PRN Administration Pain, Moderate (4-6) Ondansetron HCl 4 mg 05/11/21 21:40 05/15/21 09:57 Ondansetron 4 Mg/2 Ml Inj IV 4 mg Q8H PRN Administration Nausea And Vomiting Pantoprazole Sodium 40 mg 05/15/21 10:00 05/20/21 10:13 Pantoprazole 40 Mg Inj IV 40 mg QDAY ABRAHAN Administration Sodium Chloride 10 ml 05/11/21 22:00 05/20/21 10:14 Sodium Chloride 0.9% 10 Ml Flush Syringe IV 10 ml BID ABRAHAN Administration Sodium Chloride 10 ml 05/11/21 21:40 05/15/21 00:35 Sodium Chloride 0.9% 10 Ml Flush Syringe IV 10 ml PRN PRN Administration LINE FLUSH Nutrition/Malnutrition Assess - Dietary Evaluation Nutrition/Malnutrition Findings: Nutrition Notes Start: 05/13/21 09:47 Freq: Status: Active Protocol: Document 05/20/21 10:43 (Rec: 05/20/21 10:50 [id number]) Nutrition Notes Initial or Follow up Reassessment Current Diagnosis COPD,Sepsis,Respiratory Failure Other Pertinent Diagnosis Pancreatic CA, pulmonary fibrosis. Current Diet TPN @ 83.33ml/hr (since 05/16) . Labs/Tests K 3.5 BUN 24 Cr 0.3 BG 254 Phos 1.9 Pertinent Medications Humalog Height 5 ft 2 in Weight 78.4 kg [place] Body Weight (kg) 50.00 BMI 31.6 Weight Status Obese Subjective/Other Information TPN day 3. Pt tolerating TPN. Percent of energy/protein needs met: 56%/100% Burn Absent Trauma Absent Current % PO Negligible Minimum of two criteria Yes Fluid Accumulation Mild (non-severe) Reduced Office Secretary Strength Measurably Reduced (severe) #2 Nutrition Diagnosis Malnutrition Diagnosis Progress(for reassessment Continues documentation) #1 Nutrition Diagnosis Inadequate protein-energy intake,Altered GI function Diagnosis Progress(for reassessment Continues documentation) Is patient on ventilator? No Is Patient Ambulatory and/or Out of Bed No REE-([facility]-confined to bed) 4451.687 Calculation Used for Recommendations Bobby Aceves Additional Notes Pro needs 2g/kg IBW: 100g/day Fluid needs 1ml/kcal Nutrition Intervention Change Diet Order: Continue TPN Nutrition Support: Continue TPN at 83.33 ml/hr. Osm: 1005 mOsm; 7.5%D, 5%AA 120 mEq K, 50 mmol phos; multivitamin, MTE Kcal 910 Protein (gm) 100 Carbohydrates (gm) 150 Fat (gm) 0 Fluid (mL) 2,000 Fiber (gm) 0 Goal #1 Provide at least 75% of protein and kcal needs via TPN Follow-Up By: 05/21/21 Additional Comments Labs in am: BMP, Mg, Phos.
--- NOTE | 2021-05-20 13:36 | Progress Note ---
Assessment and Plan Septic shock possible hepatobiliary source Lactic acidosis h/o pulmonary fibrosis, Acute on chronic respiratory failure on home O2 of 2 L nasal cannula Transaminitis, biliary dilation, r/o cholangitis Hyperchloremia, metabolic acidosis, hypokalemia Hypoglycemia h/o pancreatic head cancer- chemoradiation therapy h/o Hypertension - care plan discussed at length with her Kids (asked them to also discuss end of life issues when opportuned with their Mom) - Potassium and PO4 replaced (KPhos) - LTAC evaluation is appropriate - conservative volume management - continue care as below otherwise; - continue BIPAP scheduled qhs with prn daytime use - intubate if decompensates - continue systemic steroids at current dose - prn vasopressors for target MAP > 65 mmHg - refusing port-a-cath access; unable to place PICC line; will continue Femoral CVL X 24 hours and re-assess - MRCP pending as she remains tenuous from a respiratory standpoint - continue anti-infective's; de-escalate per ID recommendations - continue accuchecks with glycemic control per SSI (While critically ill target blood glucose of 140-180 mg/dL; avoid hypoglycemia) - continue to wean supplemental oxygen for target O2 sat's > 90% acutely - aspiration precautions - bronchodilators with pulmonary hygiene per RT - avoid nephrotoxins, renally dose all medications - prn analgesia per pain score - Maintenance of sleep-wake cycle, avoid delirium - G.I. & VTE prophylaxis - PT/OT/ROM exercises - mobility protocols for pressure ulcer prophylaxis - Monitor hemodynamics closely - continue other care per attending / other consultants - discharge planning ongoing concurrently .... Re-evaluate in am & prn CONDITION: CRITICAL PROGNOSIS: GUARDED CODE STATUS: FULL CODE The high probability of a clinically significant, sudden or life-threatening deterioration of the [respiratory, cardiovascular, GI & neurologic] system(s) required my full and direct attention, intervention and personal management. The aggregate critical care time was [35] minutes without overlap. Time includes spent on; [x] Data Review and interpretation [x] Patient assessment and monitoring of vital signs [x] Documentation [x] Medication orders and management Subjective Date of service: 05/20/21 Principal diagnosis: Septic shock; Pulm fibrosis; Hypoxemic resp failure; COVID- 19 infxn Interval history: Patient is seen today for: Septic shock; pulmonary fibrosis; Acute on chronic hypoxemic respiratory failure; Transaminitis; h/o pancreatic head cancer; HTN Seen and examined at bedside; 24hour events reviewed; nursing and respiratory care staff consulted; no adverse overnight events reported to me; resting in bed; daughter and Son visited today; she is tolerating HFNC but at 100% FiO2; denies N/V/F/C Objective Vital Signs - 12hr 05/20/21 05/20/21 05/20/21 02:01 02:30 03:00 Temperature Pulse Rate 70 86 Pulse Rate [ Anterior Bilateral Throughout] Pulse Rate [ From Monitor] Respiratory 24 20 Rate Respiratory Rate [Anterior Bilateral Throughout] Blood Pressure 101/71 113/63 116/76 O2 Sat by Pulse 100 100 100 Oximetry 05/20/21 05/20/21 05/20/21 03:30 03:59 04:00 Temperature 97.4 F L Pulse Rate 66 77 73 Pulse Rate [ Anterior Bilateral Throughout] Pulse Rate [ 70 From Monitor] Respiratory 16 29 H 21 Rate Respiratory Rate [Anterior Bilateral Throughout] Blood Pressure 97/59 97/59 97/60 O2 Sat by Pulse 100 100 100 Oximetry 05/20/21 05/20/21 05/20/21 04:30 05:00 05:30 Temperature Pulse Rate 72 68 94 H Pulse Rate [ Anterior Bilateral Throughout] Pulse Rate [ From Monitor] Respiratory 18 18 20 Rate Respiratory Rate [Anterior Bilateral Throughout] Blood Pressure 106/65 93/57 115/71 O2 Sat by Pulse 100 100 100 Oximetry 05/20/21 05/20/21 05/20/21 06:00 06:30 07:00 Temperature Pulse Rate 90 71 77 Pulse Rate [ Anterior Bilateral Throughout] Pulse Rate [ From Monitor] Respiratory 16 20 27 H Rate Respiratory Rate [Anterior Bilateral Throughout] Blood Pressure 102/71 104/69 104/69 O2 Sat by Pulse 100 100 99 Oximetry 05/20/21 05/20/21 05/20/21 07:28 07:30 07:36 Temperature Pulse Rate 67 63 Pulse Rate [ 87 Anterior Bilateral Throughout] Pulse Rate [ From Monitor] Respiratory 29 H 16 Rate Respiratory 30 H Rate [Anterior Bilateral Throughout] Blood Pressure 108/55 108/55 O2 Sat by Pulse 100 100 100 Oximetry 05/20/21 05/20/21 05/20/21 08:00 08:31 09:00 Temperature 97.9 F Pulse Rate 99 H 98 H 93 H Pulse Rate [ Anterior Bilateral Throughout] Pulse Rate [ 89 From Monitor] Respiratory 28 H 35 H 29 H Rate Respiratory Rate [Anterior Bilateral Throughout] Blood Pressure 112/63 100/63 109/72 O2 Sat by Pulse 99 99 98 Oximetry 05/20/21 05/20/21 05/20/21 09:30 10:00 10:30 Temperature Pulse Rate 89 82 68 Pulse Rate [ Anterior Bilateral Throughout] Pulse Rate [ From Monitor] Respiratory 29 H 29 H 18 Rate Respiratory Rate [Anterior Bilateral Throughout] Blood Pressure 108/73 104/68 114/63 O2 Sat by Pulse 97 100 100 Oximetry 05/20/21 05/20/21 05/20/21 11:00 11:30 12:00 Temperature 98.0 F Pulse Rate 69 78 70 Pulse Rate [ Anterior Bilateral Throughout] Pulse Rate [ From Monitor] Respiratory 21 25 H 19 Rate Respiratory Rate [Anterior Bilateral Throughout] Blood Pressure 105/67 108/73 116/74 O2 Sat by Pulse 100 100 100 Oximetry 05/20/21 05/20/21 12:30 13:00 Temperature Pulse Rate 73 80 Pulse Rate [ Anterior Bilateral Throughout] Pulse Rate [ From Monitor] Respiratory 20 19 Rate Respiratory Rate [Anterior Bilateral Throughout] Blood Pressure 113/74 106/64 O2 Sat by Pulse 100 99 Oximetry Constitutional: appears uncomfortable, other (mildly increased respiratory effort at rest ) Eyes: non-icteric ENT: oropharynx moist, other (BIPAP FFM) Neck: supple, no lymphadenopathy, no JVD Effort: mildly labored Ascultation: Bilateral: diminished breath sounds, rales (posterior bases) Percussion: Bilateral: not dull Cardiovascular: regular rate and rhythm, other (S1,S2) Gastrointestinal: normoactive bowel sounds, hypoactive bowel sounds, soft, non- distended (protuberant) Integumentary: normal Extremities: no cyanosis, no edema, pulses normal, other (right femoral CVL) Neurologic: normal mental status, non-focal exam, pupils equal and round, other (somnolent) Psychiatric: mood appropriate, affect normal, other (somnolenet) CBC and BMP: 05/18/21 04:00 05/20/21 04:30 ABG, PT/INR, D-dimer: ABG ABG pH 7.482 pH Units (7.350-7.450) H 05/19/21 14:14 ABG pCO2 42.9 mm Hg 05/19/21 14:14 ABG pO2 111.7 mm Hg (80.0-90.0) H 05/19/21 14:14 ABG O2 Saturation 98.2 % (95.0-99.0) 05/19/21 14:14 PT/INR, D-dimer PT 16.0 Sec. (12.2-14.9) H 05/11/21 05:43 INR 1.16 (0.87-1.13) H 05/11/21 05:43 Abnormal lab findings: Abnormal Labs 05/11/21 05/11/21 05/11/21 05:43 05:43 05:43 WBC RBC Hgb MCV 98 H RDW 17.7 H Plt Count Lymph % (Auto) 10.8 L Lymph # (Auto) 0.6 L Seg Neutrophils % 84.1 H Seg Neuts % (Manual) Lymphocytes % (Manual) Seg Neutrophils # Man Lymphocytes # (Manual) PT 16.0 H INR 1.16 H ABG pH ABG pO2 ABG HCO3 ABG Base Excess ABG Hemoglobin Oxyhemoglobin Sodium Potassium Chloride Carbon Dioxide 21 L BUN 4 L Creatinine 0.4 L Glucose POC Glucose Lactic Acid Calcium 8.3 L Phosphorus Magnesium Total Bilirubin 2.10 H Direct Bilirubin 1.4 H AST 335 H ALT 57 H Alkaline Phosphatase 339 H Total Protein Albumin 2.4 L Lipase 3 L Ur Specific [place] Vancomycin Trough 05/11/21 05/11/21 05/12/21 11:18 12:28 04:08 WBC RBC Hgb MCV RDW Plt Count Lymph % (Auto) Lymph # (Auto) Seg Neutrophils % Seg Neuts % (Manual) Lymphocytes % (Manual) Seg Neutrophils # Man Lymphocytes # (Manual) PT INR ABG pH ABG pO2 ABG HCO3 ABG Base Excess ABG Hemoglobin Oxyhemoglobin Sodium Potassium Chloride Carbon Dioxide BUN Creatinine Glucose POC Glucose Lactic Acid 4.20 H* 4.50 H* Calcium Phosphorus Magnesium Total Bilirubin Direct Bilirubin AST ALT Alkaline Phosphatase Total Protein Albumin Lipase Ur Specific [place] 1.035 H Vancomycin Trough 05/12/21 05/12/21 05/12/21 04:08 04:08 09:47 WBC 22.8 H RBC 3.39 L Hgb MCV 98 H RDW 17.7 H Plt Count Lymph % (Auto) Lymph # (Auto) Seg Neutrophils % Seg Neuts % (Manual) 85.5 H Lymphocytes % (Manual) 2.0 L Seg Neutrophils # Man 19.5 H Lymphocytes # (Manual) 0.5 L PT INR ABG pH ABG pO2 ABG HCO3 ABG Base Excess ABG Hemoglobin Oxyhemoglobin Sodium Potassium 3.3 L Chloride 108.9 H Carbon Dioxide 17 L BUN 4 L Creatinine 0.5 L Glucose 106 H POC Glucose Lactic Acid 2.60 H* Calcium 6.4 L D Phosphorus Magnesium Total Bilirubin 2.10 H Direct Bilirubin AST 156 H ALT 61 H Alkaline Phosphatase 317 H Total Protein 5.4 L D Albumin 1.8 L Lipase Ur Specific [place] Vancomycin Trough 05/12/21 05/12/21 05/12/21 11:47 12:30 12:36 WBC RBC Hgb MCV RDW Plt Count Lymph % (Auto) Lymph # (Auto) Seg Neutrophils % Seg Neuts % (Manual) Lymphocytes % (Manual) Seg Neutrophils # Man Lymphocytes # (Manual) PT INR ABG pH ABG pO2 ABG HCO3 ABG Base Excess ABG Hemoglobin Oxyhemoglobin Sodium Potassium Chloride Carbon Dioxide BUN Creatinine Glucose POC Glucose 59 L 120 H Lactic Acid 2.50 H* Calcium Phosphorus Magnesium Total Bilirubin Direct Bilirubin AST ALT Alkaline Phosphatase Total Protein Albumin Lipase Ur Specific [place] Vancomycin Trough 05/12/21 05/12/21 05/13/21 23:45 Unknown 04:00 WBC 19.8 H RBC 3.52 L Hgb MCV 98 H RDW 18.5 H Plt Count Lymph % (Auto) Lymph # (Auto) Seg Neutrophils % Seg Neuts % (Manual) Lymphocytes % (Manual) Seg Neutrophils # Man Lymphocytes # (Manual) PT INR ABG pH ABG pO2 ABG HCO3 ABG Base Excess ABG Hemoglobin Oxyhemoglobin Sodium Potassium Chloride Carbon Dioxide BUN Creatinine Glucose POC Glucose 119 H Lactic Acid 3.30 H* Calcium Phosphorus Magnesium Total Bilirubin Direct Bilirubin AST ALT Alkaline Phosphatase Total Protein Albumin Lipase Ur Specific [place] Vancomycin Trough 05/13/21 05/13/21 05/13/21 04:00 05:42 12:19 WBC RBC Hgb MCV RDW Plt Count Lymph % (Auto) Lymph # (Auto) Seg Neutrophils % Seg Neuts % (Manual) Lymphocytes % (Manual) Seg Neutrophils # Man Lymphocytes # (Manual) PT INR ABG pH ABG pO2 ABG HCO3 ABG Base Excess ABG Hemoglobin Oxyhemoglobin Sodium Potassium 3.4 L Chloride 107.1 H Carbon Dioxide 19 L BUN 4 L Creatinine 0.4 L Glucose 157 H POC Glucose 143 H 110 H Lactic Acid Calcium 7.4 L D Phosphorus 1.60 L Magnesium 1.50 L Total Bilirubin 1.40 H Direct Bilirubin AST 95 H ALT Alkaline Phosphatase 328 H Total Protein 5.5 L Albumin 1.6 L Lipase Ur Specific [place] Vancomycin Trough 05/14/21 05/14/21 05/14/21 06:15 06:15 10:25 WBC 11.7 H RBC 3.41 L Hgb MCV 98 H RDW 18.6 H Plt Count Lymph % (Auto) Lymph # (Auto) Seg Neutrophils % Seg Neuts % (Manual) Lymphocytes % (Manual) Seg Neutrophils # Man Lymphocytes # (Manual) PT INR ABG pH ABG pO2 76.0 L ABG HCO3 27.2 H ABG Base Excess ABG Hemoglobin 11.5 L Oxyhemoglobin 94.4 L Sodium Potassium 3.2 L Chloride Carbon Dioxide BUN 6 L Creatinine 0.5 L Glucose 103 H POC Glucose Lactic Acid Calcium 7.3 L Phosphorus 1.70 L Magnesium Total Bilirubin Direct Bilirubin AST 66 H ALT Alkaline Phosphatase 295 H Total Protein 5.3 L Albumin 1.8 L Lipase Ur Specific [place] Vancomycin Trough 05/14/21 05/14/21 05/14/21 15:20 15:20 17:26 WBC RBC Hgb MCV RDW Plt Count Lymph % (Auto) Lymph # (Auto) Seg Neutrophils % Seg Neuts % (Manual) Lymphocytes % (Manual) Seg Neutrophils # Man Lymphocytes # (Manual) PT INR ABG pH ABG pO2 ABG HCO3 ABG Base Excess ABG Hemoglobin Oxyhemoglobin Sodium 146 H D Potassium Chloride 108.4 H Carbon Dioxide BUN 5 L Creatinine 0.5 L Glucose POC Glucose 63 L Lactic Acid Calcium 7.6 L Phosphorus Magnesium Total Bilirubin Direct Bilirubin AST ALT Alkaline Phosphatase Total Protein Albumin Lipase Ur Specific [place] Vancomycin Trough 25.3 H 05/14/21 05/15/21 05/15/21 21:27 00:03 00:29 WBC RBC Hgb MCV RDW Plt Count Lymph % (Auto) Lymph # (Auto) Seg Neutrophils % Seg Neuts % (Manual) Lymphocytes % (Manual) Seg Neutrophils # Man Lymphocytes # (Manual) PT INR ABG pH ABG pO2 ABG HCO3 ABG Base Excess ABG Hemoglobin Oxyhemoglobin Sodium Potassium Chloride Carbon Dioxide BUN Creatinine Glucose POC Glucose 52 L 54 L 129 H Lactic Acid Calcium Phosphorus Magnesium Total Bilirubin Direct Bilirubin AST ALT Alkaline Phosphatase Total Protein Albumin Lipase Ur Specific [place] Vancomycin Trough 05/15/21 05/15/21 05/15/21 04:45 04:45 11:58 WBC RBC 3.24 L Hgb MCV 98 H RDW 18.5 H Plt Count 122 L Lymph % (Auto) 7.4 L Lymph # (Auto) 0.6 L Seg Neutrophils % 81.2 H Seg Neuts % (Manual) Lymphocytes % (Manual) Seg Neutrophils # Man Lymphocytes # (Manual) PT INR ABG pH ABG pO2 ABG HCO3 ABG Base Excess ABG Hemoglobin Oxyhemoglobin Sodium 146 H Potassium 3.1 L Chloride 108.8 H Carbon Dioxide BUN 6 L Creatinine Glucose 121 H POC Glucose 68 L Lactic Acid Calcium 7.5 L Phosphorus 2.30 L D Magnesium Total Bilirubin 1.90 H Direct Bilirubin AST 55 H ALT Alkaline Phosphatase 231 H Total Protein 5.4 L Albumin 1.5 L Lipase Ur Specific [place] Vancomycin Trough 05/15/21 05/16/21 05/16/21 13:50 00:06 00:43 WBC RBC Hgb MCV RDW Plt Count Lymph % (Auto) Lymph # (Auto) Seg Neutrophils % Seg Neuts % (Manual) Lymphocytes % (Manual) Seg Neutrophils # Man Lymphocytes # (Manual) PT INR ABG pH ABG pO2 ABG HCO3 ABG Base Excess ABG Hemoglobin Oxyhemoglobin Sodium Potassium Chloride Carbon Dioxide BUN Creatinine Glucose POC Glucose 147 H 54 L 116 H Lactic Acid Calcium Phosphorus Magnesium Total Bilirubin Direct Bilirubin AST ALT Alkaline Phosphatase Total Protein Albumin Lipase Ur Specific [place] Vancomycin Trough 05/16/21 05/16/21 05/16/21 04:31 04:31 05:58 WBC RBC 3.12 L Hgb 9.8 L MCV 98 H RDW 18.2 H Plt Count 115 L Lymph % (Auto) Lymph # (Auto) Seg Neutrophils % Seg Neuts % (Manual) Lymphocytes % (Manual) Seg Neutrophils # Man Lymphocytes # (Manual) PT INR ABG pH ABG pO2 ABG HCO3 ABG Base Excess ABG Hemoglobin Oxyhemoglobin Sodium 146 H Potassium 3.2 L Chloride Carbon Dioxide BUN 5 L Creatinine 0.5 L Glucose POC Glucose 61 L Lactic Acid Calcium 7.2 L Phosphorus 2.30 L Magnesium Total Bilirubin Direct Bilirubin AST ALT Alkaline Phosphatase Total Protein Albumin Lipase Ur Specific [place] Vancomycin Trough 12/05/16/21 05/17/21 08:11 23:42 04:15 WBC RBC Hgb MCV RDW Plt Count Lymph % (Auto) Lymph # (Auto) Seg Neutrophils % Seg Neuts % (Manual) Lymphocytes % (Manual) Seg Neutrophils # Man Lymphocytes # (Manual) PT INR ABG pH ABG pO2 ABG HCO3 ABG Base Excess ABG Hemoglobin Oxyhemoglobin Sodium Potassium Chloride Carbon Dioxide BUN Creatinine Glucose POC Glucose 58 L 200 H Lactic Acid Calcium Phosphorus Magnesium Total Bilirubin 1.70 H Direct Bilirubin 1.5 H AST 43 H ALT Alkaline Phosphatase 196 H Total Protein 5.4 L Albumin 1.6 L Lipase Ur Specific [place] Vancomycin Trough 05/17/21 05/17/21 05/17/21 04:15 04:15 05:07 WBC RBC 3.26 L Hgb MCV 98 H RDW 18.9 H Plt Count 114 L Lymph % (Auto) Lymph # (Auto) Seg Neutrophils % Seg Neuts % (Manual) Lymphocytes % (Manual) Seg Neutrophils # Man Lymphocytes # (Manual) PT INR ABG pH ABG pO2 ABG HCO3 ABG Base Excess ABG Hemoglobin Oxyhemoglobin Sodium Potassium Chloride Carbon Dioxide 35 H BUN 5 L Creatinine Glucose 274 H POC Glucose 249 H Lactic Acid Calcium 7.7 L Phosphorus 1.50 L D Magnesium Total Bilirubin Direct Bilirubin AST ALT Alkaline Phosphatase Total Protein Albumin Lipase Ur Specific [place] Vancomycin Trough 05/17/21 05/17/21 05/17/21 11:56 16:29 23:37 WBC RBC Hgb MCV RDW Plt Count Lymph % (Auto) Lymph # (Auto) Seg Neutrophils % Seg Neuts % (Manual) Lymphocytes % (Manual) Seg Neutrophils # Man Lymphocytes # (Manual) PT INR ABG pH ABG pO2 ABG HCO3 ABG Base Excess ABG Hemoglobin Oxyhemoglobin Sodium Potassium Chloride Carbon Dioxide BUN Creatinine Glucose POC Glucose 176 H 219 H 150 H Lactic Acid Calcium Phosphorus Magnesium Total Bilirubin Direct Bilirubin AST ALT Alkaline Phosphatase Total Protein Albumin Lipase Ur Specific [place] Vancomycin Trough 05/18/21 05/18/21 05/18/21 04:00 05:22 09:00 WBC RBC 3.34 L Hgb MCV RDW 18.8 H Plt Count Lymph % (Auto) Lymph # (Auto) Seg Neutrophils % Seg Neuts % (Manual) Lymphocytes % (Manual) Seg Neutrophils # Man Lymphocytes # (Manual) PT INR ABG pH ABG pO2 ABG HCO3 ABG Base Excess ABG Hemoglobin Oxyhemoglobin Sodium Potassium 5.4 H D Chloride 97.5 L Carbon Dioxide 33 H BUN Creatinine 0.4 L Glucose 461 H POC Glucose 181 H Lactic Acid Calcium 7.2 L Phosphorus 5.00 H D Magnesium Total Bilirubin Direct Bilirubin AST ALT Alkaline Phosphatase Total Protein Albumin Lipase Ur Specific [place] Vancomycin Trough 05/18/21 05/18/21 05/18/21 11:16 12:50 16:29 WBC RBC Hgb MCV RDW Plt Count Lymph % (Auto) Lymph # (Auto) Seg Neutrophils % Seg Neuts % (Manual) Lymphocytes % (Manual) Seg Neutrophils # Man Lymphocytes # (Manual) PT INR ABG pH ABG pO2 ABG HCO3 ABG Base Excess ABG Hemoglobin Oxyhemoglobin Sodium Potassium 3.4 L D Chloride Carbon Dioxide 36 H BUN 19 H Creatinine 0.4 L Glucose 231 H POC Glucose 168 H 196 H Lactic Acid Calcium 7.5 L Phosphorus 1.80 L D Magnesium Total Bilirubin Direct Bilirubin AST ALT Alkaline Phosphatase Total Protein Albumin Lipase Ur Specific [place] Vancomycin Trough 05/19/21 05/19/21 05/19/21 00:05 04:08 05:07 WBC RBC Hgb MCV RDW Plt Count Lymph % (Auto) Lymph # (Auto) Seg Neutrophils % Seg Neuts % (Manual) Lymphocytes % (Manual) Seg Neutrophils # Man Lymphocytes # (Manual) PT INR ABG pH ABG pO2 ABG HCO3 ABG Base Excess ABG Hemoglobin Oxyhemoglobin Sodium 146 H Potassium Chloride Carbon Dioxide 35 H BUN 25 H Creatinine 0.4 L Glucose 218 H POC Glucose 164 H 203 H Lactic Acid Calcium 7.2 L Phosphorus Magnesium Total Bilirubin Direct Bilirubin AST ALT Alkaline Phosphatase Total Protein Albumin Lipase Ur Specific [place] Vancomycin Trough 05/19/21 05/19/21 05/19/21 12:16 14:14 17:11 WBC RBC Hgb MCV RDW Plt Count Lymph % (Auto) Lymph # (Auto) Seg Neutrophils % Seg Neuts % (Manual) Lymphocytes % (Manual) Seg Neutrophils # Man Lymphocytes # (Manual) PT INR ABG pH 7.482 H ABG pO2 111.7 H ABG HCO3 31.4 H ABG Base Excess 7.2 H ABG Hemoglobin 11.1 L Oxyhemoglobin Sodium Potassium Chloride Carbon Dioxide BUN Creatinine Glucose POC Glucose 206 H 194 H Lactic Acid Calcium Phosphorus Magnesium Total Bilirubin Direct Bilirubin AST ALT Alkaline Phosphatase Total Protein Albumin Lipase Ur Specific [place] Vancomycin Trough 05/20/21 05/20/21 05/20/21 00:01 04:30 06:09 WBC RBC Hgb MCV RDW Plt Count Lymph % (Auto) Lymph # (Auto) Seg Neutrophils % Seg Neuts % (Manual) Lymphocytes % (Manual) Seg Neutrophils # Man Lymphocytes # (Manual) PT INR ABG pH ABG pO2 ABG HCO3 ABG Base Excess ABG Hemoglobin Oxyhemoglobin Sodium Potassium 3.5 L Chloride Carbon Dioxide BUN 24 H Creatinine 0.3 L Glucose 254 H POC Glucose 209 H 210 H Lactic Acid Calcium 7.5 L Phosphorus 1.90 L D Magnesium Total Bilirubin 1.60 H Direct Bilirubin AST 201 H ALT 170 H Alkaline Phosphatase 169 H Total Protein 5.3 L Albumin 1.9 L Lipase Ur Specific [place] Vancomycin Trough 05/20/21 11:41 WBC RBC Hgb MCV RDW Plt Count Lymph % (Auto) Lymph # (Auto) Seg Neutrophils % Seg Neuts % (Manual) Lymphocytes % (Manual) Seg Neutrophils # Man Lymphocytes # (Manual) PT INR ABG pH ABG pO2 ABG HCO3 ABG Base Excess ABG Hemoglobin Oxyhemoglobin Sodium Potassium Chloride Carbon Dioxide BUN Creatinine Glucose POC Glucose 158 H Lactic Acid Calcium Phosphorus Magnesium Total Bilirubin Direct Bilirubin AST ALT Alkaline Phosphatase Total Protein Albumin Lipase Ur Specific [place] Vancomycin Trough Chest x-ray: pending Allied health notes reviewed: nursing
[2021-05-20] MEDS ORDERED: TOTAL PARENTERAL NUTRITION 1,999.92 ML IV SCH (20:00)
[2021-05-20] MEDS: INSULIN GLARGINE 100 UNITS/ML SUB-Q SCH (22:24)
[2021-05-20] MEDS: ENOXAPARIN 40 MG/0.4 ML INJ SUB-Q SCH (22:24)
[2021-05-21] MEDS: INSULIN LISPRO 100 UNIT/ML SUB-Q SCH ×4 (00:46→23:48)
[2021-05-21] MEDS: MORPHINE 2 MG/1 ML INJ IV PRN ×3 (04:41→15:27)
[2021-05-21 05:31] LABS: Hematocrit 31.7 % (30.3-42.9); Hemoglobin 10.3 gm/dl (10.1-14.3); Mean Corpuscular HGB Conc 33 % (30-34); Mean Corpuscular Volume 97 fl (79-97); Platelet Count 125 K/mm3 (140-440); Red Blood Count 3.28 M/mm3 (3.65-5.03); Red Cell Distribution Width 18.7 % (13.2-15.2)
[2021-05-21 05:45] LABS: Blood Urea Nitrogen 21 mg/dL (7-17); Calcium 7.3 mg/dL (8.4-10.2); Hemolysis Index 9
[2021-05-21 05:46] LABS: BUN/Creatinine Ratio 105
[2021-05-21] MEDS: MEROPENEM/NS 1 GRAM/100 ML 1 GRAM/100 ML BAG IV SCH ×3 (06:40→22:26)
--- NOTE | 2021-05-21 07:55 | Gastroenterology Progress Note ---
Assessment and Plan Liver enzymes elevated yesterday, where the bilirubin and alkaline phosphatase are actually trending down and is just the AST and ALT which are rising significantly this argues against biliary obstruction Acute hepatitis panel is negative Therefore differential diagnosis is medication related, TPN related, mild ischemic hepatitis (reports of repeated episodes of hypoxia overnight 05/19), given lack of abdominal pain acalculous cholangitis and cholecystitis in Ddx but quite low Recommend continuing to trend LFTs and trend INR daily as well please and we will continue to follow If LFT continue to trend up today then please obtain RUQ US - Patient Problems (1) Elevated bilirubin Current Visit: Yes Status: Acute (2) Elevated liver enzymes Current Visit: Yes Status: Acute (3) Sepsis Current Visit: Yes Status: Acute (4) Transaminitis Current Visit: Yes Status: Acute (5) Pancreatic cancer Current Visit: Yes Status: Chronic Qualifiers: Pancreatic malignancy location: body of pancreas Qualified Code(s): C25.1 - Malignant neoplasm of body of pancreas (6) Interstitial lung disease Current Visit: No Status: Acute Subjective Date of service: 05/21/21 Principal diagnosis: Septic shock; Pulm fibrosis; Hypoxemic resp failure; COVID- 19 infxn Interval history: had episodes hypoxia requiring bipap overnight 05/19 LFT not resulted for today Does not report tenderness to palpation right upper quadrant today Does report she is thirsty and would like something to drink Objective - Constitutional Vitals: Temp Pulse Resp BP Pulse Ox 98.2 F 90 22 94/68 97 05/21/21 04:00 05/21/21 07:30 05/21/21 07:30 05/21/21 07:30 05/21/21 07:30 General appearance: other - EENT Eyes: EOM intact - Neck Neck: supple - Respiratory Respiratory effort: labored - Gastrointestinal General gastrointestinal: Present: soft, non-tender - Labs CBC & Chem 7: 05/21/21 04:00 05/21/21 04:00 Labs: Laboratory Results - last 24 hr 05/20/21 05/20/21 05/20/21 11:41 16:47 22:21 WBC RBC Hgb Hct MCV MCH MCHC RDW Plt Count Sodium Potassium Chloride Carbon Dioxide Anion Gap BUN Creatinine Estimated GFR BUN/Creatinine Ratio Glucose POC Glucose 158 H 232 H 211 H Calcium Phosphorus Magnesium 05/21/21 05/21/21 05/21/21 00:35 04:00 04:00 WBC 9.9 RBC 3.28 L Hgb 10.3 Hct 31.7 MCV 97 MCH 32 MCHC 33 RDW 18.7 H Plt Count 125 L Sodium 140 Potassium 5.1 H D Chloride 108.7 H Carbon Dioxide 25 Anion Gap 11 BUN 21 H Creatinine 0.2 L Estimated GFR > 60 BUN/Creatinine Ratio 105 Glucose 242 H POC Glucose 230 H Calcium 7.3 L Phosphorus 3.10 D Magnesium 1.90 05/21/21 05:08 WBC RBC Hgb Hct MCV MCH MCHC RDW Plt Count Sodium Potassium Chloride Carbon Dioxide Anion Gap BUN Creatinine Estimated GFR BUN/Creatinine Ratio Glucose POC Glucose 196 H Calcium Phosphorus Magnesium
[2021-05-21] MEDS: ARFORMOTEROL 15 MCG/2 ML NEBU IH SCH ×2 (09:21→20:41)
[2021-05-21] MEDS: BUDESONIDE 0.5 MG/2 ML NEBU IH SCH ×2 (09:21→20:41)
--- NOTE | 2021-05-21 10:45 | Electrocardiograph Report ---
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
[2021-05-21] MEDS: BENZONATATE 100 MG CAP PO PRN (11:24)
[2021-05-21] MEDS: PANTOPRAZOLE 40 MG INJ IV SCH (11:25)
[2021-05-21] MEDS: dexAMETHasone 4 MG/ML VIAL IV SCH (11:25)
--- NOTE | 2021-05-21 11:30 | Progress Note ---
Assessment and Plan Septic shock possible hepatobiliary source Lactic acidosis h/o pulmonary fibrosis, Acute on chronic respiratory failure on home O2 of 2 L nasal cannula Transaminitis, biliary dilation, r/o cholangitis Hyperchloremia, metabolic acidosis, hypokalemia Hypoglycemia h/o pancreatic head cancer- chemoradiation therapy h/o Hypertension - follow LFT's re: transaminitis - transfer to [facility] - LTAC evaluation is appropriate - conservative volume management - continue care as below otherwise; - continue BIPAP scheduled qhs with prn daytime use - intubate if decompensates - continue systemic steroids at current dose - prn vasopressors for target MAP > 65 mmHg - refusing port-a-cath access; unable to place PICC line; will continue Femoral CVL X 24 hours and re-assess - MRCP pending as she remains tenuous from a respiratory standpoint - continue anti-infective's; de-escalate per ID recommendations - continue accuchecks with glycemic control per SSI (While critically ill target blood glucose of 140-180 mg/dL; avoid hypoglycemia) - continue to wean supplemental oxygen for target O2 sat's > 90% acutely - aspiration precautions - bronchodilators with pulmonary hygiene per RT - avoid nephrotoxins, renally dose all medications - prn analgesia per pain score - Maintenance of sleep-wake cycle, avoid delirium - G.I. & VTE prophylaxis - PT/OT/ROM exercises - mobility protocols for pressure ulcer prophylaxis - Monitor hemodynamics closely - continue other care per attending / other consultants - discharge planning ongoing concurrently .... Re-evaluate in am & prn CONDITION: CRITICAL PROGNOSIS: GUARDED CODE STATUS: FULL CODE The high probability of a clinically significant, sudden or life-threatening deterioration of the [respiratory, cardiovascular, GI & neurologic] system(s) required my full and direct attention, intervention and personal management. The aggregate critical care time was [32] minutes without overlap. Time includes spent on; [x] Data Review and interpretation [x] Patient assessment and monitoring of vital signs [x] Documentation [x] Medication orders and management Subjective Date of service: 05/21/21 Principal diagnosis: Septic shock; Pulm fibrosis; Hypoxemic resp failure; COVID- 19 infxn Interval history: Patient is seen today for: Septic shock; pulmonary fibrosis; Acute on chronic hypoxemic respiratory failure; Transaminitis; h/o pancreatic head cancer; HTN Seen and examined at bedside; 24hour events reviewed; nursing and respiratory care staff consulted; no adverse overnight events reported to me; resting in bed; tolerating daytime Vapotherm but with FoiO2 of 100%; no N/V/F/C; coherent Objective Vital Signs - 12hr 05/20/21 05/21/21 05/21/21 23:30 00:00 00:30 Temperature 98.2 F Pulse Rate 92 H 92 H 91 H Pulse Rate [ Anterior Bilateral Throughout] Pulse Rate [ 99 H From Monitor] Respiratory 26 H 24 20 Rate Respiratory Rate [Anterior Bilateral Throughout] Blood Pressure 101/62 105/64 112/61 O2 Sat by Pulse 97 100 99 Oximetry 05/21/21 05/21/21 05/21/21 01:00 01:30 02:00 Temperature Pulse Rate 90 89 74 Pulse Rate [ Anterior Bilateral Throughout] Pulse Rate [ From Monitor] Respiratory 22 25 H 21 Rate Respiratory Rate [Anterior Bilateral Throughout] Blood Pressure 90/68 97/64 103/62 O2 Sat by Pulse 100 100 96 Oximetry 05/21/21 05/21/21 05/21/21 02:30 02:47 02:48 Temperature Pulse Rate 95 H 92 H Pulse Rate [ Anterior Bilateral Throughout] Pulse Rate [ From Monitor] Respiratory 22 22 Rate Respiratory Rate [Anterior Bilateral Throughout] Blood Pressure 118/75 118/75 O2 Sat by Pulse 99 96 Oximetry 05/21/21 05/21/21 05/21/21 03:00 03:30 04:00 Temperature 98.2 F Pulse Rate 94 H 90 74 Pulse Rate [ Anterior Bilateral Throughout] Pulse Rate [ 74 From Monitor] Respiratory 25 H 26 H 22 Rate Respiratory Rate [Anterior Bilateral Throughout] Blood Pressure 98/66 107/67 101/60 O2 Sat by Pulse 95 94 97 Oximetry 05/21/21 05/21/21 05/21/21 04:30 05:00 05:30 Temperature Pulse Rate 88 84 91 H Pulse Rate [ Anterior Bilateral Throughout] Pulse Rate [ From Monitor] Respiratory 29 H 22 21 Rate Respiratory Rate [Anterior Bilateral Throughout] Blood Pressure 100/70 111/57 97/64 O2 Sat by Pulse 95 97 97 Oximetry 05/21/21 05/21/21 05/21/21 06:00 06:30 07:00 Temperature Pulse Rate 77 93 H 94 H Pulse Rate [ Anterior Bilateral Throughout] Pulse Rate [ From Monitor] Respiratory 20 25 H 25 H Rate Respiratory Rate [Anterior Bilateral Throughout] Blood Pressure 109/66 110/69 108/73 O2 Sat by Pulse 96 96 97 Oximetry 05/21/21 05/21/21 05/21/21 07:30 08:00 08:30 Temperature 98 F Pulse Rate 90 80 90 Pulse Rate [ Anterior Bilateral Throughout] Pulse Rate [ From Monitor] Respiratory 22 26 H 25 H Rate Respiratory Rate [Anterior Bilateral Throughout] Blood Pressure 94/68 101/66 107/66 O2 Sat by Pulse 97 96 97 Oximetry 05/21/21 05/21/21 05/21/21 09:00 09:20 09:21 Temperature Pulse Rate 93 H 92 H Pulse Rate [ 92 H Anterior Bilateral Throughout] Pulse Rate [ From Monitor] Respiratory 27 H 25 H Rate Respiratory 25 H Rate [Anterior Bilateral Throughout] Blood Pressure 110/67 110/67 O2 Sat by Pulse 95 97 Oximetry 05/21/21 09:31 Temperature Pulse Rate Pulse Rate [ Anterior Bilateral Throughout] Pulse Rate [ From Monitor] Respiratory Rate Respiratory Rate [Anterior Bilateral Throughout] Blood Pressure O2 Sat by Pulse 98 Oximetry Constitutional: no acute distress, other (mildly increased respiratory effort at rest ) Eyes: non-icteric ENT: oropharynx moist, other (BIPAP FFM) Neck: supple, no lymphadenopathy, no JVD Effort: mildly labored Ascultation: Bilateral: diminished breath sounds, rales (posterior bases) Percussion: Bilateral: not dull Cardiovascular: regular rate and rhythm, other (S1,S2) Gastrointestinal: normoactive bowel sounds, hypoactive bowel sounds, soft, non- distended (protuberant) Integumentary: normal Extremities: no cyanosis, no edema, pulses normal, other (right femoral CVL) Neurologic: normal mental status, non-focal exam, pupils equal and round, other (somnolent) Psychiatric: mood appropriate, affect normal, other (somnolenet) CBC and BMP: 05/21/21 04:00 05/22/21 04:30 ABG, PT/INR, D-dimer: ABG ABG pH 7.482 pH Units (7.350-7.450) H 05/19/21 14:14 ABG pCO2 42.9 mm Hg 05/19/21 14:14 ABG pO2 111.7 mm Hg (80.0-90.0) H 05/19/21 14:14 ABG O2 Saturation 98.2 % (95.0-99.0) 05/19/21 14:14 PT/INR, D-dimer PT 16.0 Sec. (12.2-14.9) H 05/11/21 05:43 INR 1.16 (0.87-1.13) H 05/11/21 05:43 Abnormal lab findings: Abnormal Labs 05/11/21 05/11/21 05/11/21 05:43 05:43 05:43 WBC RBC Hgb MCV 98 H RDW 17.7 H Plt Count Lymph % (Auto) 10.8 L Lymph # (Auto) 0.6 L Seg Neutrophils % 84.1 H Seg Neuts % (Manual) Lymphocytes % (Manual) Seg Neutrophils # Man Lymphocytes # (Manual) PT 16.0 H INR 1.16 H ABG pH ABG pO2 ABG HCO3 ABG Base Excess ABG Hemoglobin Oxyhemoglobin Sodium Potassium Chloride Carbon Dioxide 21 L BUN 4 L Creatinine 0.4 L Glucose POC Glucose Lactic Acid Calcium 8.3 L Phosphorus Magnesium Total Bilirubin 2.10 H Direct Bilirubin 1.4 H AST 335 H ALT 57 H Alkaline Phosphatase 339 H Total Protein Albumin 2.4 L Lipase 3 L Ur Specific [place] Vancomycin Trough 05/11/21 05/11/21 05/12/21 11:18 12:28 04:08 WBC RBC Hgb MCV RDW Plt Count Lymph % (Auto) Lymph # (Auto) Seg Neutrophils % Seg Neuts % (Manual) Lymphocytes % (Manual) Seg Neutrophils # Man Lymphocytes # (Manual) PT INR ABG pH ABG pO2 ABG HCO3 ABG Base Excess ABG Hemoglobin Oxyhemoglobin Sodium Potassium Chloride Carbon Dioxide BUN Creatinine Glucose POC Glucose Lactic Acid 4.20 H* 4.50 H* Calcium Phosphorus Magnesium Total Bilirubin Direct Bilirubin AST ALT Alkaline Phosphatase Total Protein Albumin Lipase Ur Specific [place] 1.035 H Vancomycin Trough 05/12/21 05/12/21 05/12/21 04:08 04:08 09:47 WBC 22.8 H RBC 3.39 L Hgb MCV 98 H RDW 17.7 H Plt Count Lymph % (Auto) Lymph # (Auto) Seg Neutrophils % Seg Neuts % (Manual) 85.5 H Lymphocytes % (Manual) 2.0 L Seg Neutrophils # Man 19.5 H Lymphocytes # (Manual) 0.5 L PT INR ABG pH ABG pO2 ABG HCO3 ABG Base Excess ABG Hemoglobin Oxyhemoglobin Sodium Potassium 3.3 L Chloride 108.9 H Carbon Dioxide 17 L BUN 4 L Creatinine 0.5 L Glucose 106 H POC Glucose Lactic Acid 2.60 H* Calcium 6.4 L D Phosphorus Magnesium Total Bilirubin 2.10 H Direct Bilirubin AST 156 H ALT 61 H Alkaline Phosphatase 317 H Total Protein 5.4 L D Albumin 1.8 L Lipase Ur Specific [place] Vancomycin Trough 05/12/21 05/12/21 05/12/21 11:47 12:30 12:36 WBC RBC Hgb MCV RDW Plt Count Lymph % (Auto) Lymph # (Auto) Seg Neutrophils % Seg Neuts % (Manual) Lymphocytes % (Manual) Seg Neutrophils # Man Lymphocytes # (Manual) PT INR ABG pH ABG pO2 ABG HCO3 ABG Base Excess ABG Hemoglobin Oxyhemoglobin Sodium Potassium Chloride Carbon Dioxide BUN Creatinine Glucose POC Glucose 59 L 120 H Lactic Acid 2.50 H* Calcium Phosphorus Magnesium Total Bilirubin Direct Bilirubin AST ALT Alkaline Phosphatase Total Protein Albumin Lipase Ur Specific [place] Vancomycin Trough 05/12/21 05/12/21 05/13/21 23:45 Unknown 04:00 WBC 19.8 H RBC 3.52 L Hgb MCV 98 H RDW 18.5 H Plt Count Lymph % (Auto) Lymph # (Auto) Seg Neutrophils % Seg Neuts % (Manual) Lymphocytes % (Manual) Seg Neutrophils # Man Lymphocytes # (Manual) PT INR ABG pH ABG pO2 ABG HCO3 ABG Base Excess ABG Hemoglobin Oxyhemoglobin Sodium Potassium Chloride Carbon Dioxide BUN Creatinine Glucose POC Glucose 119 H Lactic Acid 3.30 H* Calcium Phosphorus Magnesium Total Bilirubin Direct Bilirubin AST ALT Alkaline Phosphatase Total Protein Albumin Lipase Ur Specific [place] Vancomycin Trough 05/13/21 05/13/21 05/13/21 04:00 05:42 12:19 WBC RBC Hgb MCV RDW Plt Count Lymph % (Auto) Lymph # (Auto) Seg Neutrophils % Seg Neuts % (Manual) Lymphocytes % (Manual) Seg Neutrophils # Man Lymphocytes # (Manual) PT INR ABG pH ABG pO2 ABG HCO3 ABG Base Excess ABG Hemoglobin Oxyhemoglobin Sodium Potassium 3.4 L Chloride 107.1 H Carbon Dioxide 19 L BUN 4 L Creatinine 0.4 L Glucose 157 H POC Glucose 143 H 110 H Lactic Acid Calcium 7.4 L D Phosphorus 1.60 L Magnesium 1.50 L Total Bilirubin 1.40 H Direct Bilirubin AST 95 H ALT Alkaline Phosphatase 328 H Total Protein 5.5 L Albumin 1.6 L Lipase Ur Specific [place] Vancomycin Trough 05/14/21 05/14/21 05/14/21 06:15 06:15 10:25 WBC 11.7 H RBC 3.41 L Hgb MCV 98 H RDW 18.6 H Plt Count Lymph % (Auto) Lymph # (Auto) Seg Neutrophils % Seg Neuts % (Manual) Lymphocytes % (Manual) Seg Neutrophils # Man Lymphocytes # (Manual) PT INR ABG pH ABG pO2 76.0 L ABG HCO3 27.2 H ABG Base Excess ABG Hemoglobin 11.5 L Oxyhemoglobin 94.4 L Sodium Potassium 3.2 L Chloride Carbon Dioxide BUN 6 L Creatinine 0.5 L Glucose 103 H POC Glucose Lactic Acid Calcium 7.3 L Phosphorus 1.70 L Magnesium Total Bilirubin Direct Bilirubin AST 66 H ALT Alkaline Phosphatase 295 H Total Protein 5.3 L Albumin 1.8 L Lipase Ur Specific [place] Vancomycin Trough 05/14/21 05/14/21 05/14/21 15:20 15:20 17:26 WBC RBC Hgb MCV RDW Plt Count Lymph % (Auto) Lymph # (Auto) Seg Neutrophils % Seg Neuts % (Manual) Lymphocytes % (Manual) Seg Neutrophils # Man Lymphocytes # (Manual) PT INR ABG pH ABG pO2 ABG HCO3 ABG Base Excess ABG Hemoglobin Oxyhemoglobin Sodium 146 H D Potassium Chloride 108.4 H Carbon Dioxide BUN 5 L Creatinine 0.5 L Glucose POC Glucose 63 L Lactic Acid Calcium 7.6 L Phosphorus Magnesium Total Bilirubin Direct Bilirubin AST ALT Alkaline Phosphatase Total Protein Albumin Lipase Ur Specific [place] Vancomycin Trough 25.3 H 05/14/21 05/15/21 05/15/21 21:27 00:03 00:29 WBC RBC Hgb MCV RDW Plt Count Lymph % (Auto) Lymph # (Auto) Seg Neutrophils % Seg Neuts % (Manual) Lymphocytes % (Manual) Seg Neutrophils # Man Lymphocytes # (Manual) PT INR ABG pH ABG pO2 ABG HCO3 ABG Base Excess ABG Hemoglobin Oxyhemoglobin Sodium Potassium Chloride Carbon Dioxide BUN Creatinine Glucose POC Glucose 52 L 54 L 129 H Lactic Acid Calcium Phosphorus Magnesium Total Bilirubin Direct Bilirubin AST ALT Alkaline Phosphatase Total Protein Albumin Lipase Ur Specific [place] Vancomycin Trough 05/15/21 05/15/21 05/15/21 04:45 04:45 11:58 WBC RBC 3.24 L Hgb MCV 98 H RDW 18.5 H Plt Count 122 L Lymph % (Auto) 7.4 L Lymph # (Auto) 0.6 L Seg Neutrophils % 81.2 H Seg Neuts % (Manual) Lymphocytes % (Manual) Seg Neutrophils # Man Lymphocytes # (Manual) PT INR ABG pH ABG pO2 ABG HCO3 ABG Base Excess ABG Hemoglobin Oxyhemoglobin Sodium 146 H Potassium 3.1 L Chloride 108.8 H Carbon Dioxide BUN 6 L Creatinine Glucose 121 H POC Glucose 68 L Lactic Acid Calcium 7.5 L Phosphorus 2.30 L D Magnesium Total Bilirubin 1.90 H Direct Bilirubin AST 55 H ALT Alkaline Phosphatase 231 H Total Protein 5.4 L Albumin 1.5 L Lipase Ur Specific [place] Vancomycin Trough 05/15/21 05/16/21 05/16/21 13:50 00:06 00:43 WBC RBC Hgb MCV RDW Plt Count Lymph % (Auto) Lymph # (Auto) Seg Neutrophils % Seg Neuts % (Manual) Lymphocytes % (Manual) Seg Neutrophils # Man Lymphocytes # (Manual) PT INR ABG pH ABG pO2 ABG HCO3 ABG Base Excess ABG Hemoglobin Oxyhemoglobin Sodium Potassium Chloride Carbon Dioxide BUN Creatinine Glucose POC Glucose 147 H 54 L 116 H Lactic Acid Calcium Phosphorus Magnesium Total Bilirubin Direct Bilirubin AST ALT Alkaline Phosphatase Total Protein Albumin Lipase Ur Specific [place] Vancomycin Trough 05/16/21 05/16/21 05/16/21 04:31 04:31 05:58 WBC RBC 3.12 L Hgb 9.8 L MCV 98 H RDW 18.2 H Plt Count 115 L Lymph % (Auto) Lymph # (Auto) Seg Neutrophils % Seg Neuts % (Manual) Lymphocytes % (Manual) Seg Neutrophils # Man Lymphocytes # (Manual) PT INR ABG pH ABG pO2 ABG HCO3 ABG Base Excess ABG Hemoglobin Oxyhemoglobin Sodium 146 H Potassium 3.2 L Chloride Carbon Dioxide BUN 5 L Creatinine 0.5 L Glucose POC Glucose 61 L Lactic Acid Calcium 7.2 L Phosphorus 2.30 L Magnesium Total Bilirubin Direct Bilirubin AST ALT Alkaline Phosphatase Total Protein Albumin Lipase Ur Specific [place] Vancomycin Trough 05/16/21 05/16/21 05/17/21 08:11 23:42 04:15 WBC RBC Hgb MCV RDW Plt Count Lymph % (Auto) Lymph # (Auto) Seg Neutrophils % Seg Neuts % (Manual) Lymphocytes % (Manual) Seg Neutrophils # Man Lymphocytes # (Manual) PT INR ABG pH ABG pO2 ABG HCO3 ABG Base Excess ABG Hemoglobin Oxyhemoglobin Sodium Potassium Chloride Carbon Dioxide BUN Creatinine Glucose POC Glucose 58 L 200 H Lactic Acid Calcium Phosphorus Magnesium Total Bilirubin 1.70 H Direct Bilirubin 1.5 H AST 43 H ALT Alkaline Phosphatase 196 H Total Protein 5.4 L Albumin 1.6 L Lipase Ur Specific [place] Vancomycin Trough 05/17/21 05/17/21 05/17/21 04:15 04:15 05:07 WBC RBC 3.26 L Hgb MCV 98 H RDW 18.9 H Plt Count 114 L Lymph % (Auto) Lymph # (Auto) Seg Neutrophils % Seg Neuts % (Manual) Lymphocytes % (Manual) Seg Neutrophils # Man Lymphocytes # (Manual) PT INR ABG pH ABG pO2 ABG HCO3 ABG Base Excess ABG Hemoglobin Oxyhemoglobin Sodium Potassium Chloride Carbon Dioxide 35 H BUN 5 L Creatinine Glucose 274 H POC Glucose 249 H Lactic Acid Calcium 7.7 L Phosphorus 1.50 L D Magnesium Total Bilirubin Direct Bilirubin AST ALT Alkaline Phosphatase Total Protein Albumin Lipase Ur Specific [place] Vancomycin Trough 05/17/21 05/17/21 05/17/21 11:56 16:29 23:37 WBC RBC Hgb MCV RDW Plt Count Lymph % (Auto) Lymph # (Auto) Seg Neutrophils % Seg Neuts % (Manual) Lymphocytes % (Manual) Seg Neutrophils # Man Lymphocytes # (Manual) PT INR ABG pH ABG pO2 ABG HCO3 ABG Base Excess ABG Hemoglobin Oxyhemoglobin Sodium Potassium Chloride Carbon Dioxide BUN Creatinine Glucose POC Glucose 176 H 219 H 150 H Lactic Acid Calcium Phosphorus Magnesium Total Bilirubin Direct Bilirubin AST ALT Alkaline Phosphatase Total Protein Albumin Lipase Ur Specific [place] Vancomycin Trough 05/18/21 05/18/21 05/18/21 04:00 05:22 09:00 WBC RBC 3.34 L Hgb MCV RDW 18.8 H Plt Count Lymph % (Auto) Lymph # (Auto) Seg Neutrophils % Seg Neuts % (Manual) Lymphocytes % (Manual) Seg Neutrophils # Man Lymphocytes # (Manual) PT INR ABG pH ABG pO2 ABG HCO3 ABG Base Excess ABG Hemoglobin Oxyhemoglobin Sodium Potassium 5.4 H D Chloride 97.5 L Carbon Dioxide 33 H BUN Creatinine 0.4 L Glucose 461 H POC Glucose 181 H Lactic Acid Calcium 7.2 L Phosphorus 5.00 H D Magnesium Total Bilirubin Direct Bilirubin AST ALT Alkaline Phosphatase Total Protein Albumin Lipase Ur Specific [place] Vancomycin Trough 05/18/21 05/18/21 05/18/21 11:16 12:50 16:29 WBC RBC Hgb MCV RDW Plt Count Lymph % (Auto) Lymph # (Auto) Seg Neutrophils % Seg Neuts % (Manual) Lymphocytes % (Manual) Seg Neutrophils # Man Lymphocytes # (Manual) PT INR ABG pH ABG pO2 ABG HCO3 ABG Base Excess ABG Hemoglobin Oxyhemoglobin Sodium Potassium 3.4 L D Chloride Carbon Dioxide 36 H BUN 19 H Creatinine 0.4 L Glucose 231 H POC Glucose 168 H 196 H Lactic Acid Calcium 7.5 L Phosphorus 1.80 L D Magnesium Total Bilirubin Direct Bilirubin AST ALT Alkaline Phosphatase Total Protein Albumin Lipase Ur Specific [place] Vancomycin Trough 05/19/21 05/19/21 05/19/21 00:05 04:08 05:07 WBC RBC Hgb MCV RDW Plt Count Lymph % (Auto) Lymph # (Auto) Seg Neutrophils % Seg Neuts % (Manual) Lymphocytes % (Manual) Seg Neutrophils # Man Lymphocytes # (Manual) PT INR ABG pH ABG pO2 ABG HCO3 ABG Base Excess ABG Hemoglobin Oxyhemoglobin Sodium 146 H Potassium Chloride Carbon Dioxide 35 H BUN 25 H Creatinine 0.4 L Glucose 218 H POC Glucose 164 H 203 H Lactic Acid Calcium 7.2 L Phosphorus Magnesium Total Bilirubin Direct Bilirubin AST ALT Alkaline Phosphatase Total Protein Albumin Lipase Ur Specific [place] Vancomycin Trough 05/19/21 05/19/21 05/19/21 12:16 14:14 17:11 WBC RBC Hgb MCV RDW Plt Count Lymph % (Auto) Lymph # (Auto) Seg Neutrophils % Seg Neuts % (Manual) Lymphocytes % (Manual) Seg Neutrophils # Man Lymphocytes # (Manual) PT INR ABG pH 7.482 H ABG pO2 111.7 H ABG HCO3 31.4 H ABG Base Excess 7.2 H ABG Hemoglobin 11.1 L Oxyhemoglobin Sodium Potassium Chloride Carbon Dioxide BUN Creatinine Glucose POC Glucose 206 H 194 H Lactic Acid Calcium Phosphorus Magnesium Total Bilirubin Direct Bilirubin AST ALT Alkaline Phosphatase Total Protein Albumin Lipase Ur Specific [place] Vancomycin Trough 05/20/21 05/20/21 05/20/21 00:01 04:30 06:09 WBC RBC Hgb MCV RDW Plt Count Lymph % (Auto) Lymph # (Auto) Seg Neutrophils % Seg Neuts % (Manual) Lymphocytes % (Manual) Seg Neutrophils # Man Lymphocytes # (Manual) PT INR ABG pH ABG pO2 ABG HCO3 ABG Base Excess ABG Hemoglobin Oxyhemoglobin Sodium Potassium 3.5 L Chloride Carbon Dioxide BUN 24 H Creatinine 0.3 L Glucose 254 H POC Glucose 209 H 210 H Lactic Acid Calcium 7.5 L Phosphorus 1.90 L D Magnesium Total Bilirubin 1.60 H Direct Bilirubin AST 201 H ALT 170 H Alkaline Phosphatase 169 H Total Protein 5.3 L Albumin 1.9 L Lipase Ur Specific [place] Vancomycin Trough 05/20/21 05/20/21 05/20/21 11:41 16:47 22:21 WBC RBC Hgb MCV RDW Plt Count Lymph % (Auto) Lymph # (Auto) Seg Neutrophils % Seg Neuts % (Manual) Lymphocytes % (Manual) Seg Neutrophils # Man Lymphocytes # (Manual) PT INR ABG pH ABG pO2 ABG HCO3 ABG Base Excess ABG Hemoglobin Oxyhemoglobin Sodium Potassium Chloride Carbon Dioxide BUN Creatinine Glucose POC Glucose 158 H 232 H 211 H Lactic Acid Calcium Phosphorus Magnesium Total Bilirubin Direct Bilirubin AST ALT Alkaline Phosphatase Total Protein Albumin Lipase Ur Specific [place] Vancomycin Trough 05/21/21 05/21/21 05/21/21 00:35 04:00 04:00 WBC RBC 3.28 L Hgb MCV RDW 18.7 H Plt Count 125 L Lymph % (Auto) Lymph # (Auto) Seg Neutrophils % Seg Neuts % (Manual) Lymphocytes % (Manual) Seg Neutrophils # Man Lymphocytes # (Manual) PT INR ABG pH ABG pO2 ABG HCO3 ABG Base Excess ABG Hemoglobin Oxyhemoglobin Sodium Potassium 5.1 H D Chloride 108.7 H Carbon Dioxide BUN 21 H Creatinine 0.2 L Glucose 242 H POC Glucose 230 H Lactic Acid Calcium 7.3 L Phosphorus Magnesium Total Bilirubin Direct Bilirubin AST ALT Alkaline Phosphatase Total Protein Albumin Lipase Ur Specific [place] Vancomycin Trough 05/21/21 05:08 WBC RBC Hgb MCV RDW Plt Count Lymph % (Auto) Lymph # (Auto) Seg Neutrophils % Seg Neuts % (Manual) Lymphocytes % (Manual) Seg Neutrophils # Man Lymphocytes # (Manual) PT INR ABG pH ABG pO2 ABG HCO3 ABG Base Excess ABG Hemoglobin Oxyhemoglobin Sodium Potassium Chloride Carbon Dioxide BUN Creatinine Glucose POC Glucose 196 H Lactic Acid Calcium Phosphorus Magnesium Total Bilirubin Direct Bilirubin AST ALT Alkaline Phosphatase Total Protein Albumin Lipase Ur Specific [place] Vancomycin Trough Allied health notes reviewed: nursing
[2021-05-21] MEDS ORDERED: DEXTROSE 10% IN WATER 1,000 ML IV SCH (13:00)
--- NOTE | 2021-05-21 18:06 | Progress Note ---
<ABIOLAEBENEZER ZepedaJordan - Last Filed: 05/21/21 21:42> Assessment and Plan Assessment and plan: This is a 48-year-old female with COPD, pancreatic cancer with radiation s/p pancreatic stent placement, pulmonary fibrosis, chronic respiratory failure on 2 L nasal cannula admitted with sepsis, transaminitis and lactic acidosis. Neuro: NAD -Avoid delirium -Reorientation as needed -Maintain sleep-wake cycle CV: Hypotension, h/o HTN -Hold home htn medications -s/p vasopressor support with levo and vaso -wean for MAP >65 -BP monitoring per protocol -CCM consulted, appreciate recommendations -Hold home htn medications -s/p IV Lasix added X 3days Respiratory: h/o pulmonary fibrosis, acute on chronic respiratory failure on home O2 of 2 L nasal cannula -Supplemental oxygen as needed -Tessalon Perles as needed for cough -SPO2 monitoring -Pulmonary hygiene -Bipap q hs and prn -Weaned to optiflow this AM but patient was placed back on BiPAP due to hypoxia -Wean FiO2 as tolerated -Pulmonary hygiene -Supplementary oxygen as needed GI: Transaminitis, protein calorie malnutrition, biliary dilation, r/o cholangitis, h/o pancreatic cancer s/p stent placement -CT abdomen/pelvis showed pancreatic cancer with metallic stent with possible occlusion, mild pelvic fluid and mild colonic thickening -GI consulted, patient recommendations -MRCP pending-> plan for once respiratory status stable -If stent occlusion/biliary obstruction would recommend IR consult for PTC drain per GI -TPN -PPI -BR to start once taking p.o. -24-hour -165 -Acute hepatitis panel negative -Trend LFTs -abd US pending : Hyperkalemia, hyperchloremia -Hold TPN today due to hyperkalemia -P.m. BMP pending -Currently on dextrose IV -Strict intake and output -Purewick in place -Daily weights -Renally dose meds, avoid nephrotoxins Endo: Hyperglycemia, s/p hypoglycemia -Hypoglycemia protocol -Avoid hypoglycemia -SSI every 6 hours -Lantus, titrate as needed ID: Septic shock, Lactic acidosis (improving) -Blood cultures x2 no growth to date -Patient has leukocytosis, hypotension -Antibiotic therapy with IV meropenem -Monitor WBC and fever curve -ID consulted, appreciated recommendation -COVID PCR (-) Heme: Thrombocytopenia -Trend CBC -Transfuse for hemoglobin less than 7 -SCD to bilateral lower extremities while in bed -Lovenox subcu -Monitor platelets Oncology: h/o pancreatic head cancer -F/U with outpatient oncologist -Currently on radiation -Not a surgical candidate per GI -Right chest post not accessed The high probability of a clinically significant, sudden or life threatening deterioration of the [resp, GI] system(s) required my full and direct attention, intervention and personal management. The aggregate critical care time was [60] minutes. This time is in addition to time spent performing reported procedures but includes the following: [x] Data Review and interpretation [x] Patient assessment and monitoring of vital signs [x] Documentation [x] Medication orders and management Disposition Plan: imcu Total Time Spent with Patient (Minutes): 60 History Interval history: This is a 51-year-old female with COPD, pancreatic cancer and radiation, s/p pancreatic stent placement, pulmonary fibrosis, hypertension and chronic respiratory failure on 2 L oxygen via nasal cannula who presented to emergency department on 05/11 with complaints of right upper quadrant pain which started approximately at 0200 with nausea and vomiting. Work-up in the emergency department included a CTA chest which showed no pulmonary embolism, mild fluid- filled esophagus and distended stomach with bilateral interstitial opacity in the chest, and CT abdomen/pelvis with contrast which showed persistent pancreatic carcinoma with indwelling metallic stent which is suspected to be occluded. Lab work revealed leukocytosis, transaminitis and lactic acidosis. Patient became hypotensive in the emergency department and required 3 L of IV fluid and was eventually started on vasopressors after placement of femoral central line. Patient was started on empiric antibiotics. Admitted to the hospitalist service with consults to GI and CCM for transaminitis, possible se psis, and lactic acidosis. 05/12: Patient remains on high-dose Levophed and vasopressin. Given 1 L LR bolus. GI would like an MRCP to be conducted which has been ordered. Patient cleared for sips of water. Added Tessalon due to severe cough. Potassium repleted. Covid PCR negative. 05/13: Remains on Levophed and vasopressin has been off since yesterday evening. Started on stress dose steroids. MRCP pending. Hypokalemia, hypomagnesemia and hypophosphatemia repleted. Liver enzymes trending down. Started on D5 normal saline yesterday. 05/14: Patient with worsen respiratory status this am, tachypneic with increased O2 requirement. On full support on the Bipap this am with worsening diffuse bilateral opacities on CXR, s/p X1 dose of IV lasix overnight. Patient remains afebrile with no leukocytosis. Will continue IV Lasix X3 doses, f/u CXR in the am. D/W CCM due to patient worsening respiratory status hold on MRCP for today. Patient is off Levophed this am, leave pressors on standby might need to be put back on low dose pressors with IV diuretic. Patient also noted with Rt. fem CVC which was inserted in the ED, most likely due to be change, unsuccessfult PICC by IVT today and patient is refusing Port access at this time. 05/15: Patient remains on continuous Bipap overnight, desat when bipap is removed for mouth care. Plan to wean Fio2 as tolerated for SPO2 goal above 90%. Febrile overnight, TMAX 101.4, on IV abx zosyn, repeat blood culture ordered. Low K and phosph repleted, repeat labs in the am. 05/16: Patient back on full support on the Bipap, still not tolerating FiO2 wean, patient desat in the 80s. D/w [facility] plan to continue continuous bipap for now, patient going on over 4 days with no nutrition plan to initiate TPN tomorrow. D10w gtt added for hypoglycemia. Patient platelet continue to steadily drop, given patient's history with continue AC for now, H&H is stable, no s/s of any active bleeding. Electrolytes repleted, will continue to trend CBC, BMP, mg, and phos. MRCP canceled, plan to reorder once patient's respiratory status is more stable. 05/17: Patient remains on continuous Bipap. Patient remains on low dose Levophed, plan to wean off pressors as tolerated for a MAP above 65. Clinimix initiated overnight, plan to start TPN tonight. Hyperglycemic overnight, SSI was initiated. Low phos repleted, repeat lab in the am. 05/18: Down to 60% FIo2 on the Bipap, SPO2 above 97%. Off pressros this am, TPN is running. Patient is now hyperglycemic, SSI adjusted. Consider basal dose, lantus if hyperglycemia persist. This am labs noted, hyperkalemia and really high glucose noted totally different from normal trend, orders placed for redraw. 05/19: Overnight events noted. Started on PRN haldol for agitation. Patient placed on heated high Flow at 100%, 40L SPO2 at 100%. Continue to wean Fio2 as tolerated for SPO2 for SPO2 above 92%. Continue TPN for now. Patient still hyperglycemic basal dose lantus added Qhs. 05/20: Patient is tolerating HHFL NC, SPO2 above 95%. Continue HHFL NC during and Bipap at night. Still on TPN for nutrition, hyperglycemia persists- basal insulin increased. Low K and phosp was repleted, repeat lab in the am. 05/21: Patient unable to tolerate OptiFlow for more than couple hours and was placed back on BiPAP due to desaturation. Patient remains on TPN for nutrition which was held today due to hyperkalemia. P.m. BMP ordered but not collected. Patient refused to have port accessed and PICC line ordered. Down grading to IMCU status Hospitalist Physical - Constitutional Vitals: Temp Pulse Resp BP Pulse Ox 98.1 F 89 25 H 107/71 96 05/21/21 12:00 05/21/21 15:26 05/21/21 15:26 05/21/21 15:26 05/21/21 15:26 General appearance: Present: no acute distress, obese - EENT Eyes: Present: PERRL, EOM intact ENT: clear oral mucosa - Neck Neck: Present: normal ROM - Respiratory Respiratory effort: normal Respiratory: bilateral: diminished - Cardiovascular Rhythm: regular Heart Sounds: Present: S1 & S2. Absent: systolic murmur, diastolic murmur - Extremities Extremities: no ischemia, pulses intact, pulses symmetrical, normal temperature, normal color, Full ROM Peripheral Pulses: within normal limits - Abdominal General gastrointestinal: soft, non-tender, non-distended, normal bowel sounds - Integumentary Integumentary: Present: warm, dry - Psychiatric Psychiatric: cooperative - Neurologic Neurologic: CNII-XII intact, no focal deficits, moves all extremities - Allied Health Allied health notes reviewed: nursing, RT, social work Results - Labs CBC & Chem 7: 05/21/21 04:00 05/21/21 17:57 Labs: Laboratory Last Values WBC 9.9 K/mm3 (4.5-11.0) 05/21/21 04:00 RBC 3.28 M/mm3 (3.65-5.03) L 05/21/21 04:00 Hgb 10.3 gm/dl (10.1-14.3) 05/21/21 04:00 Hct 31.7 % (30.3-42.9) 05/21/21 04:00 MCV 97 fl (79-97) 05/21/21 04:00 MCH 32 pg (28-32) 05/21/21 04:00 MCHC 33 % (30-34) 05/21/21 04:00 RDW 18.7 % (13.2-15.2) H 05/21/21 04:00 Plt Count 125 K/mm3 (140-440) L 05/21/21 04:00 Lymph % (Auto) 7.4 % (13.4-35.0) L 05/15/21 04:45 Benzie % (Auto) 6.7 % (0.0-7.3) 05/15/21 04:45 Eos % (Auto) 4.0 % (0.0-4.3) 05/15/21 04:45 Baso % (Auto) 0.7 % (0.0-1.8) 05/15/21 04:45 Lymph # (Auto) 0.6 K/mm3 (1.2-5.4) L 05/15/21 04:45 Benzie # (Auto) 0.6 K/mm3 (0.0-0.8) 05/15/21 04:45 Eos # (Auto) 0.3 K/mm3 (0.0-0.4) 05/15/21 04:45 Baso # (Auto) 0.1 K/mm3 (0.0-0.1) 05/15/21 04:45 Add Manual Diff Complete 05/12/21 04:08 Total Counted 200 05/12/21 04:08 Seg Neutrophils % 81.2 % (40.0-70.0) H 05/15/21 04:45 Seg Neuts % (Manual) 85.5 % (40.0-70.0) H 05/12/21 04:08 Band Neutrophils % 8.5 % 05/12/21 04:08 Lymphocytes % (Manual) 2.0 % (13.4-35.0) L 05/12/21 04:08 Monocytes % (Manual) 3.0 % (0.0-7.3) 05/12/21 04:08 Eosinophils % (Manual) 1.0 % (0.0-4.3) 05/12/21 04:08 Nucleated RBC % Not Reportable 05/12/21 04:08 Seg Neutrophils # 6.7 K/mm3 (1.8-7.7) 05/15/21 04:45 Seg Neutrophils # Man 19.5 K/mm3 (1.8-7.7) H 05/12/21 04:08 Band Neutrophils # 1.9 K/mm3 05/12/21 04:08 Lymphocytes # (Manual) 0.5 K/mm3 (1.2-5.4) L 05/12/21 04:08 Abs React Lymphs (Man) 0.0 K/mm3 05/12/21 04:08 Monocytes # (Manual) 0.7 K/mm3 (0.0-0.8) 05/12/21 04:08 Eosinophils # (Manual) 0.2 K/mm3 (0.0-0.4) 05/12/21 04:08 Basophils # (Manual) 0.0 K/mm3 (0.0-0.1) 05/12/21 04:08 Metamyelocytes # 0.0 K/mm3 05/12/21 04:08 Myelocytes # 0.0 K/mm3 05/12/21 04:08 Promyelocytes # 0.0 K/mm3 05/12/21 04:08 Blast Cells # 0.0 K/mm3 05/12/21 04:08 WBC Morphology Not Reportable 05/12/21 04:08 Hypersegmented Neuts Not Reportable 05/12/21 04:08 Hyposegmented Neuts Not Reportable 05/12/21 04:08 Hypogranular Neuts Not Reportable 05/12/21 04:08 Smudge Cells Not Reportable 05/12/21 04:08 Toxic Granulation Not Reportable 05/12/21 04:08 Toxic Vacuolation Not Reportable 05/12/21 04:08 Dohle Bodies Not Reportable 05/12/21 04:08 Pelger-Huet Anomaly Not Reportable 05/12/21 04:08 Elizabeth Rods Not Reportable 05/12/21 04:08 Platelet Estimate Consistent w auto 05/12/21 04:08 Clumped Platelets Not Reportable 05/12/21 04:08 Plt Clumps, EDTA Not Reportable 05/12/21 04:08 Large Platelets Not Reportable 05/12/21 04:08 Giant Platelets Not Reportable 05/12/21 04:08 Platelet Satelliting Not Reportable 05/12/21 04:08 Plt Morphology Comment Not Reportable 05/12/21 04:08 RBC Morphology Not Reportable 05/12/21 04:08 Dimorphic RBCs Not Reportable 05/12/21 04:08 Polychromasia Not Reportable 05/12/21 04:08 Hypochromasia Not Reportable 05/12/21 04:08 Poikilocytosis Not Reportable 05/12/21 04:08 Anisocytosis 1+ 05/12/21 04:08 Microcytosis Not Reportable 05/12/21 04:08 Macrocytosis Not Reportable 05/12/21 04:08 Spherocytes Not Reportable 05/12/21 04:08 Pappenheimer Bodies Not Reportable 05/12/21 04:08 Sickle Cells Not Reportable 05/12/21 04:08 Target Cells Not Reportable 05/12/21 04:08 Tear Drop Cells Not Reportable 05/12/21 04:08 Ovalocytes Not Reportable 05/12/21 04:08 Helmet Cells Not Reportable 05/12/21 04:08 Sibley-Burgess Bodies Not Reportable 05/12/21 04:08 Hillman Rings Not Reportable 05/12/21 04:08 [place] Cells Not Reportable 05/12/21 04:08 Bite Cells Not Reportable 05/12/21 04:08 Crenated Cell Not Reportable 05/12/21 04:08 Elliptocytes Not Reportable 05/12/21 04:08 Acanthocytes (Spur) Not Reportable 05/12/21 04:08 Rouleaux Not Reportable 05/12/21 04:08 Hemoglobin C Crystals Not Reportable 05/12/21 04:08 Schistocytes Not Reportable 05/12/21 04:08 Malaria parasites Not Reportable 05/12/21 04:08 Tahir Bodies Not Reportable 05/12/21 04:08 Hem Pathologist Commnt No 05/12/21 04:08 PT 16.0 Sec. (12.2-14.9) H 05/11/21 05:43 INR 1.16 (0.87-1.13) H 05/11/21 05:43 ABG pH 7.482 pH Units (7.350-7.450) H 05/19/21 14:14 ABG pCO2 42.9 mm Hg 05/19/21 14:14 ABG pO2 111.7 mm Hg (80.0-90.0) H 05/19/21 14:14 ABG HCO3 31.4 mmol/L (20.0-26.0) H 05/19/21 14:14 ABG O2 Saturation 98.2 % (95.0-99.0) 05/19/21 14:14 ABG O2 Content 15.2 (0.0-44) 05/19/21 14:14 ABG Base Excess 7.2 mmol/L (-2.0-3.0) H 05/19/21 14:14 ABG Hemoglobin 11.1 gm/dl (12.0-16.0) L 05/19/21 14:14 ABG Carboxyhemoglobin 1.1 % (0.0-5.0) 05/19/21 14:14 ABG Methemoglobin 0.6 % (0.0-1.5) 05/19/21 14:14 Oxyhemoglobin 96.4 % (95.0-99.0) 05/19/21 14:14 FiO2 100 % 05/19/21 14:14 Sodium 140 mmol/L (137-145) 05/21/21 04:00 Potassium 5.1 mmol/L (3.6-5.0) H D 05/21/21 04:00 Chloride 108.7 mmol/L (98-107) H 05/21/21 04:00 Carbon Dioxide 25 mmol/L (22-30) 05/21/21 04:00 Anion Gap 11 mmol/L 05/21/21 04:00 BUN 21 mg/dL (7-17) H 05/21/21 04:00 Creatinine 0.2 mg/dL (0.6-1.2) L 05/21/21 04:00 Estimated GFR > 60 ml/min 05/21/21 04:00 BUN/Creatinine Ratio 105 % 05/21/21 04:00 Glucose 242 mg/dL (65-100) H 05/21/21 04:00 POC Glucose 147 mg/dL (70-105) H 05/21/21 17:43 Hemoglobin A1c 5.2 % (4-6) 05/12/21 04:08 Lactic Acid 3.30 mmol/L (0.7-2.0) H* 05/12/21 Unknown Calcium 7.3 mg/dL (8.4-10.2) L 05/21/21 04:00 Phosphorus 3.10 mg/dL (2.5-4.5) D 05/21/21 04:00 Magnesium 1.90 mg/dL (1.7-2.3) 05/21/21 04:00 Total Bilirubin 1.60 mg/dL (0.1-1.2) H 05/20/21 04:30 Direct Bilirubin 1.5 mg/dL (0-0.2) H 05/17/21 04:15 Indirect Bilirubin 0.2 mg/dL 05/17/21 04:15 AST 201 units/L (5-40) H 05/20/21 04:30 ALT 170 units/L (7-56) H 05/20/21 04:30 Alkaline Phosphatase 169 units/L (35-129) H 05/20/21 04:30 Total Protein 5.3 g/dL (6.3-8.2) L 05/20/21 04:30 Albumin 1.9 g/dL (3.9-5) L 05/20/21 04:30 Albumin/Globulin Ratio 0.6 % 05/20/21 04:30 Lipase 3 units/L (13-60) L 05/11/21 05:43 Urine Color [place]isi (Yellow) 05/11/21 11:18 Urine Turbidity Clear (Clear) 05/11/21 11:18 Urine pH 6.0 (5.0-7.0) 05/11/21 11:18 Ur Specific [place] 1.035 (1.003-1.030) H 05/11/21 11:18 Urine Protein 100 mg/dl mg/dL (Negative) 05/11/21 11:18 Urine Glucose (UA) Neg mg/dL (Negative) 05/11/21 11:18 Urine Ketones Neg mg/dL (Negative) 05/11/21 11:18 Urine Blood Neg (Negative) 05/11/21 11:18 Urine Nitrite Neg (Negative) 05/11/21 11:18 Urine Bilirubin Neg (Negative) 05/11/21 11:18 Urine Urobilinogen < 2.0 mg/dL (<2.0) 05/11/21 11:18 Ur Leukocyte Esterase Neg (Negative) 05/11/21 11:18 Urine WBC (Auto) 2.0 /HPF (0.0-6.0) 05/11/21 11:18 Urine RBC (Auto) 1.0 /HPF (0.0-6.0) 05/11/21 11:18 Urine Mucus Few /HPF 05/11/21 11:18 Vancomycin Trough 25.3 ug/mL (5.0-20.0) H 05/14/21 15:20 Coronavirus (PCR) Negative (Negative) 05/12/21 10:16 Hepatitis A IgM Ab Non-reactive (NonReactive) 05/12/21 12:30 Hep Bs Antigen Nonreactive (Negative) 05/12/21 12:30 Hep B Core IgM Ab Non-reactive (NonReactive) 05/12/21 12:30 Hepatitis C Antibody Non-reactive (NonReactive) 05/12/21 12:30 Rivas/IV: Voiding Method Indwelling Catheter Active Medications - Current Medications Current Medications: Generic Name Dose Route Start Last Admin Trade Name Freq PRN Reason Stop Dose Admin Acetaminophen 650 mg 05/11/21 21:40 05/14/21 20:06 Acetaminophen 325 Mg Tab PO 650 mg Q4H PRN Administration Pain MILD(1-3)/Fever >100.5/WOODS Arformoterol Tartrate 15 mcg 05/12/21 08:00 05/21/21 09:21 Arformoterol 15 Mcg/2 Ml Nebu IH 15 mcg Q12HRT ABRAHAN Administration Benzonatate 100 mg 05/12/21 15:53 05/21/21 11:24 Benzonatate 100 Mg Cap PO 100 mg Q8HR PRN Administration Cough Budesonide 0.5 mg 05/12/21 08:00 05/21/21 09:21 Budesonide 0.5 Mg/2 Ml Nebu IH 0.5 mg Q12HRT ABRAHAN Administration Dexamethasone 6 mg 05/16/21 13:00 05/21/21 11:25 Dexamethasone 4 Mg/Ml Vial IV 6 mg Q24HR ABRAHAN Administration Dextrose 50 ml 05/12/21 11:57 05/16/21 08:30 Dextrose 50% In Water (25gm) 50 Ml Syringe IV 20 ml Q30MIN PRN Administration Hypoglycemia Protocol Enoxaparin Sodium 40 mg 05/14/21 22:00 05/20/21 22:24 Enoxaparin 40 Mg/0.4 Ml Inj SUB-Q 40 mg QDAY@2200 ABRAHAN Administration Protocol Haloperidol Lactate 5 mg 05/19/21 15:00 05/19/21 20:11 Haloperidol Lactate 5 Mg/1 Ml Inj IV 5 mg Q8H PRN Administration Agitation NORepinephrine/NS 8 MG-250 ML 8 mg in 250 mls @ 3.75 mls/hr 05/11/21 15:00 05/17/21 11:05 Norepinephrine/Ns 8 Mg-250 Ml (Double Conc) IV 0 mcg/min TITRATE ABRAHAN 0 mls/hr Titration Protocol 2 MCG/MIN MEROPENEM/NS 1 GRAM/100 ML 1 gram in 100 mls @ 100 mls/hr 05/15/21 15:00 05/21/21 15:30 Merrem/Ns 1 Gram/100 Ml IV 05/22/21 07:59 100 mls/hr Q8H [facility] Administration Protocol Amino Acids/Electrolytes/Dextrose 1,999.92 mls @ 83.33 mls/hr 05/20/21 20:00 05/21/21 09:00 Tpn Adult IV 05/21/21 19:59 0 mls/hr DAILY@1999 [facility] Infusion Protocol Dextrose 1,000 mls @ 83 mls/hr 05/21/21 13:00 D10w IV 05/21/21 19:59 DIRECT [facility] Amino Acids/Electrolytes/Dextrose 1,999.92 mls @ 83.33 mls/hr 05/21/21 20:00 Tpn Adult IV 05/22/21 19:59 DAILY@1999 [facility] Protocol Insulin Glargine 15 units 05/20/21 22:00 05/20/21 22:24 Insulin Glargine 100 Units/Ml SUB-Q 15 units QHS ABRAHAN Administration Insulin Human Lispro 0 unit 05/17/21 12:00 05/21/21 13:43 Insulin Lispro 100 Unit/Ml SUB-Q Not Given Q6HR [facility] Protocol Metoclopramide HCl 10 mg 05/11/21 21:40 Metoclopramide 10 Mg/2 Ml Inj IV Q6H PRN Nausea And Vomiting Morphine Sulfate 2 mg 05/11/21 21:40 05/21/21 15:27 Morphine 2 Mg/1 Ml Inj IV 2 mg Q4H PRN Administration Pain, Moderate (4-6) Ondansetron HCl 4 mg 05/11/21 21:40 05/15/21 09:57 Ondansetron 4 Mg/2 Ml Inj IV 4 mg Q8H PRN Administration Nausea And Vomiting Pantoprazole Sodium 40 mg 05/15/21 10:00 05/21/21 11:25 Pantoprazole 40 Mg Inj IV 40 mg QDAY ABRAHAN Administration Sodium Chloride 10 ml 05/11/21 22:00 05/21/21 11:26 Sodium Chloride 0.9% 10 Ml Flush Syringe IV 10 ml BID ABRAHAN Administration Sodium Chloride 10 ml 05/11/21 21:40 05/15/21 00:35 Sodium Chloride 0.9% 10 Ml Flush Syringe IV 10 ml PRN PRN Administration LINE FLUSH Nutrition/Malnutrition Assess - Dietary Evaluation Nutrition/Malnutrition Findings: Nutrition Notes Start: 05/13/21 09:47 Freq: Status: Active Protocol: Document 05/21/21 10:23 [facility] (Rec: 05/21/21 10:30 [facility] [id number]) Nutrition Notes Initial or Follow up Reassessment Current Diagnosis COPD,Sepsis,Respiratory Failure Other Pertinent Diagnosis Pancreatic CA, pulmonary fibrosis, transaminitis Current Diet TPN at 83.33ml/hr Labs/Tests K 5.1 Cl 108.7 BUN 21 BG 242 Elevated LFTs Pertinent Medications Reviewed Height 5 ft 2 in Weight 78.4 kg [place] Body Weight (kg) 50.00 BMI 31.6 Weight Status Obese Subjective/Other Information Day 5 TPN. Percent of energy/protein needs met: 56% energy 100% pro Burn Absent Trauma Absent Minimum of two criteria Yes Fluid Accumulation Mild (non-severe) Reduced [employer] Strength Measurably Reduced (severe) #2 Nutrition Diagnosis Malnutrition Diagnosis Progress(for reassessment Continues documentation) #1 Nutrition Diagnosis Altered GI function Diagnosis Progress(for reassessment Continues documentation) Is patient on ventilator? No Is Patient Ambulatory and/or Out of Bed No REE-([facility]-confined to bed) 5111.115 Calculation Used for Recommendations [facility] Additional Notes Pro needs 2g/kg IBW: 100g/day Fluid needs 1ml/kcal Nutrition Intervention Nutrition Support: Continue TPN at 83.33 ml/hr: MVI, 50mEq Na, 20mEq K, 25%/75 % chloride/acetate. Osmolality: 955 Kcal 910 Protein (gm) 100 Carbohydrates (gm) 150 Fat (gm) 0 Fluid (mL) 2,000 Fiber (gm) 0 Goal #1 TPN to meet nutrient needs as best possible Follow-Up By: 05/22/21 Additional Comments Labs in am: BMP, Mg, Phos <TIM RETANA O - Last Filed: 05/22/21 19:57> Assessment and Plan Assessment and plan: I saw and evaluated the patient. I agree with the findings and the plan of care as documented in the Nurse Practitioner's~note, with the following corrections and additions. Patient is 48-year-old female with COPD, pancreatic cancer with radiation s/p pancreatic stent placement, pulmonary fibrosis. Hospitalist Physical - Constitutional Vitals: Temp Pulse Resp BP Pulse Ox 98.3 F 71 23 116/69 96 05/22/21 12:00 05/22/21 18:30 05/22/21 18:30 05/22/21 18:30 05/22/21 18:30 Results - Labs CBC & Chem 7: 05/21/21 04:00 05/22/21 04:30 Labs: Laboratory Last Values WBC 9.9 K/mm3 (4.5-11.0) 05/21/21 04:00 RBC 3.28 M/mm3 (3.65-5.03) L 05/21/21 04:00 Hgb 10.3 gm/dl (10.1-14.3) 05/21/21 04:00 Hct 31.7 % (30.3-42.9) 05/21/21 04:00 MCV 97 fl (79-97) 05/21/21 04:00 MCH 32 pg (28-32) 05/21/21 04:00 MCHC 33 % (30-34) 05/21/21 04:00 RDW 18.7 % (13.2-15.2) H 05/21/21 04:00 Plt Count 125 K/mm3 (140-440) L 05/21/21 04:00 Lymph % (Auto) 7.4 % (13.4-35.0) L 05/15/21 04:45 Benzie % (Auto) 6.7 % (0.0-7.3) 05/15/21 04:45 Eos % (Auto) 4.0 % (0.0-4.3) 05/15/21 04:45 Baso % (Auto) 0.7 % (0.0-1.8) 05/15/21 04:45 Lymph # (Auto) 0.6 K/mm3 (1.2-5.4) L 05/15/21 04:45 Benzie # (Auto) 0.6 K/mm3 (0.0-0.8) 05/15/21 04:45 Eos # (Auto) 0.3 K/mm3 (0.0-0.4) 05/15/21 04:45 Baso # (Auto) 0.1 K/mm3 (0.0-0.1) 05/15/21 04:45 Add Manual Diff Complete 05/12/21 04:08 Total Counted 200 05/12/21 04:08 Seg Neutrophils % 81.2 % (40.0-70.0) H 05/15/21 04:45 Seg Neuts % (Manual) 85.5 % (40.0-70.0) H 05/12/21 04:08 Band Neutrophils % 8.5 % 05/12/21 04:08 Lymphocytes % (Manual) 2.0 % (13.4-35.0) L 05/12/21 04:08 Monocytes % (Manual) 3.0 % (0.0-7.3) 05/12/21 04:08 Eosinophils % (Manual) 1.0 % (0.0-4.3) 05/12/21 04:08 Nucleated RBC % Not Reportable 05/12/21 04:08 Seg Neutrophils # 6.7 K/mm3 (1.8-7.7) 05/15/21 04:45 Seg Neutrophils # Man 19.5 K/mm3 (1.8-7.7) H 05/12/21 04:08 Band Neutrophils # 1.9 K/mm3 05/12/21 04:08 Lymphocytes # (Manual) 0.5 K/mm3 (1.2-5.4) L 05/12/21 04:08 Abs React Lymphs (Man) 0.0 K/mm3 05/12/21 04:08 Monocytes # (Manual) 0.7 K/mm3 (0.0-0.8) 05/12/21 04:08 Eosinophils # (Manual) 0.2 K/mm3 (0.0-0.4) 05/12/21 04:08 Basophils # (Manual) 0.0 K/mm3 (0.0-0.1) 05/12/21 04:08 Metamyelocytes # 0.0 K/mm3 05/12/21 04:08 Myelocytes # 0.0 K/mm3 05/12/21 04:08 Promyelocytes # 0.0 K/mm3 05/12/21 04:08 Blast Cells # 0.0 K/mm3 05/12/21 04:08 WBC Morphology Not Reportable 05/12/21 04:08 Hypersegmented Neuts Not Reportable 05/12/21 04:08 Hyposegmented Neuts Not Reportable 05/12/21 04:08 Hypogranular Neuts Not Reportable 05/12/21 04:08 Smudge Cells Not Reportable 05/12/21 04:08 Toxic Granulation Not Reportable 05/12/21 04:08 Toxic Vacuolation Not Reportable 05/12/21 04:08 Dohle Bodies Not Reportable 05/12/21 04:08 Pelger-Huet Anomaly Not Reportable 05/12/21 04:08 Elizabeth Rods Not Reportable 05/12/21 04:08 Platelet Estimate Consistent w auto 05/12/21 04:08 Clumped Platelets Not Reportable 05/12/21 04:08 Plt Clumps, EDTA Not Reportable 05/12/21 04:08 Large Platelets Not Reportable 05/12/21 04:08 Giant Platelets Not Reportable 05/12/21 04:08 Platelet Satelliting Not Reportable 05/12/21 04:08 Plt Morphology Comment Not Reportable 05/12/21 04:08 RBC Morphology Not Reportable 05/12/21 04:08 Dimorphic RBCs Not Reportable 05/12/21 04:08 Polychromasia Not Reportable 05/12/21 04:08 Hypochromasia Not Reportable 05/12/21 04:08 Poikilocytosis Not Reportable 05/12/21 04:08 Anisocytosis 1+ 05/12/21 04:08 Microcytosis Not Reportable 05/12/21 04:08 Macrocytosis Not Reportable 05/12/21 04:08 Spherocytes Not Reportable 05/12/21 04:08 Pappenheimer Bodies Not Reportable 05/12/21 04:08 Sickle Cells Not Reportable 05/12/21 04:08 Target Cells Not Reportable 05/12/21 04:08 Tear Drop Cells Not Reportable 05/12/21 04:08 Ovalocytes Not Reportable 05/12/21 04:08 Helmet Cells Not Reportable 05/12/21 04:08 Sibley-Burgess Bodies Not Reportable 05/12/21 04:08 Hillman Rings Not Reportable 05/12/21 04:08 Marcin Cells Not Reportable 05/12/21 04:08 Bite Cells Not Reportable 05/12/21 04:08 Crenated Cell Not Reportable 05/12/21 04:08 Elliptocytes Not Reportable 05/12/21 04:08 Acanthocytes (Spur) Not Reportable 05/12/21 04:08 Rouleaux Not Reportable 05/12/21 04:08 Hemoglobin C Crystals Not Reportable 05/12/21 04:08 Schistocytes Not Reportable 05/12/21 04:08 Malaria parasites Not Reportable 05/12/21 04:08 Tahir Bodies Not Reportable 05/12/21 04:08 Hem Pathologist Commnt No 05/12/21 04:08 PT 19.5 Sec. (12.2-14.9) H 05/22/21 04:30 INR 1.49 (0.87-1.13) H 05/22/21 04:30 ABG pH 7.482 pH Units (7.350-7.450) H 05/19/21 14:14 ABG pCO2 42.9 mm Hg 05/19/21 14:14 ABG pO2 111.7 mm Hg (80.0-90.0) H 05/19/21 14:14 ABG HCO3 31.4 mmol/L (20.0-26.0) H 05/19/21 14:14 ABG O2 Saturation 98.2 % (95.0-99.0) 05/19/21 14:14 ABG O2 Content 15.2 (0.0-44) 05/19/21 14:14 ABG Base Excess 7.2 mmol/L (-2.0-3.0) H 05/19/21 14:14 ABG Hemoglobin 11.1 gm/dl (12.0-16.0) L 05/19/21 14:14 ABG Carboxyhemoglobin 1.1 % (0.0-5.0) 05/19/21 14:14 ABG Methemoglobin 0.6 % (0.0-1.5) 05/19/21 14:14 Oxyhemoglobin 96.4 % (95.0-99.0) 05/19/21 14:14 FiO2 100 % 05/19/21 14:14 Sodium 134 mmol/L (137-145) L 05/22/21 04:30 Potassium 4.3 mmol/L (3.6-5.0) 05/22/21 04:30 Chloride 103.2 mmol/L (98-107) 05/22/21 04:30 Carbon Dioxide 23 mmol/L (22-30) 05/22/21 04:30 Anion Gap 12 mmol/L 05/22/21 04:30 BUN 19 mg/dL (7-17) H 05/22/21 04:30 Creatinine 0.2 mg/dL (0.6-1.2) L 05/22/21 04:30 Estimated GFR > 60 ml/min 05/22/21 04:30 BUN/Creatinine Ratio 95 % 05/22/21 04:30 Glucose 208 mg/dL (65-100) H 05/22/21 04:30 POC Glucose 244 mg/dL (70-105) H 05/22/21 17:16 Hemoglobin A1c 5.2 % (4-6) 05/12/21 04:08 Lactic Acid 3.30 mmol/L (0.7-2.0) H* 05/12/21 Unknown Calcium 7.2 mg/dL (8.4-10.2) L 05/22/21 04:30 Phosphorus 2.40 mg/dL (2.5-4.5) L D 05/22/21 04:30 Magnesium 1.80 mg/dL (1.7-2.3) 05/22/21 04:30 Total Bilirubin 2.20 mg/dL (0.1-1.2) H 05/22/21 04:30 Direct Bilirubin 2.3 mg/dL (0-0.2) H 05/21/21 17:57 Indirect Bilirubin 0.7 mg/dL 05/21/21 17:57 AST 350 units/L (5-40) H 05/22/21 04:30 ALT 496 units/L (7-56) H 05/22/21 04:30 Alkaline Phosphatase 167 units/L (35-129) H 05/22/21 04:30 Total Protein 4.8 g/dL (6.3-8.2) L 05/22/21 04:30 Albumin 1.7 g/dL (3.9-5) L 05/22/21 04:30 Albumin/Globulin Ratio 0.5 % 05/22/21 04:30 Lipase 3 units/L (13-60) L 05/11/21 05:43 Urine Color Deisi (Yellow) 05/11/21 11:18 Urine Turbidity Clear (Clear) 05/11/21 11:18 Urine pH 6.0 (5.0-7.0) 05/11/21 11:18 Ur Specific [place] 1.035 (1.003-1.030) H 05/11/21 11:18 Urine Protein 100 mg/dl mg/dL (Negative) 05/11/21 11:18 Urine Glucose (UA) Neg mg/dL (Negative) 05/11/21 11:18 Urine Ketones Neg mg/dL (Negative) 05/11/21 11:18 Urine Blood Neg (Negative) 05/11/21 11:18 Urine Nitrite Neg (Negative) 05/11/21 11:18 Urine Bilirubin Neg (Negative) 05/11/21 11:18 Urine Urobilinogen < 2.0 mg/dL (<2.0) 05/11/21 11:18 Ur Leukocyte Esterase Neg (Negative) 05/11/21 11:18 Urine WBC (Auto) 2.0 /HPF (0.0-6.0) 05/11/21 11:18 Urine RBC (Auto) 1.0 /HPF (0.0-6.0) 05/11/21 11:18 Urine Mucus Few /HPF 05/11/21 11:18 Vancomycin Trough 25.3 ug/mL (5.0-20.0) H 05/14/21 15:20 Coronavirus (PCR) Negative (Negative) 05/12/21 10:16 Hepatitis A IgM Ab Non-reactive (NonReactive) 05/12/21 12:30 Hep Bs Antigen Nonreactive (Negative) 05/12/21 12:30 Hep B Core IgM Ab Non-reactive (NonReactive) 05/12/21 12:30 Hepatitis C Antibody Non-reactive (NonReactive) 05/12/21 12:30 Rivas/IV: Voiding Method Indwelling Catheter Active Medications - Current Medications Current Medications: Generic Name Dose Route Start Last Admin Trade Name Freq PRN Reason Stop Dose Admin Acetaminophen 650 mg 05/11/21 21:40 05/14/21 20:06 Acetaminophen 325 Mg Tab PO 650 mg Q4H PRN Administration Pain MILD(1-3)/Fever >100.5/WOODS Lipase/Protease/Amylase 1 each 05/22/21 16:30 Lipase 10,500/Protease 25,000/Amylase 43,750 (Units) Dr Baker FEEDTUBE PRN PRN For Clogged Feeding Tube Arformoterol Tartrate 15 mcg 05/12/21 08:00 05/22/21 08:55 Arformoterol 15 Mcg/2 Ml Nebu IH 15 mcg Q12HRT ABRAHAN Administration Benzonatate 100 mg 05/12/21 15:53 05/21/21 11:24 Benzonatate 100 Mg Cap PO 100 mg Q8HR PRN Administration Cough Budesonide 0.5 mg 05/12/21 08:00 05/22/21 08:55 Budesonide 0.5 Mg/2 Ml Nebu IH 0.5 mg Q12HRT ABRAHAN Administration Dexamethasone 6 mg 05/16/21 13:00 05/22/21 09:12 Dexamethasone 4 Mg/Ml Vial IV 6 mg Q24HR ABRAHAN Administration Dextrose 50 ml 05/12/21 11:57 05/16/21 08:30 Dextrose 50% In Water (25gm) 50 Ml Syringe IV 20 ml Q30MIN PRN Administration Hypoglycemia Protocol Enoxaparin Sodium 40 mg 05/14/21 22:00 05/21/21 22:25 Enoxaparin 40 Mg/0.4 Ml Inj SUB-Q 40 mg QDAY@2200 ABRAHAN Administration Protocol Haloperidol Lactate 5 mg 05/19/21 15:00 05/21/21 23:48 Haloperidol Lactate 5 Mg/1 Ml Inj IV 5 mg Q8H PRN Administration Agitation NORepinephrine/NS 8 MG-250 ML 8 mg in 250 mls @ 3.75 mls/hr 05/11/21 15:00 05/17/21 11:05 Norepinephrine/Ns 8 Mg-250 Ml (Double Conc) IV 0 mcg/min TITRATE ABRAHAN 0 mls/hr Titration Protocol 2 MCG/MIN Amino Acids/Electrolytes/Dextrose 1,999.92 mls @ 83.33 mls/hr 05/21/21 20:00 05/21/21 21:11 Tpn Adult IV 05/22/21 19:59 83.33 mls/hr DAILY@1999 [facility] Administration Protocol Amino Acids/Electrolytes/Dextrose 1,999.92 mls @ 83.33 mls/hr 05/22/21 20:00 Tpn Adult IV 05/23/21 19:59 DAILY@1999 [facility] Protocol Insulin Glargine 20 units 05/22/21 22:00 Insulin Glargine 100 Units/Ml SUB-Q QHS [facility] Insulin Human Lispro 0 unit 05/17/21 12:00 05/22/21 18:02 Insulin Lispro 100 Unit/Ml SUB-Q 4 unit Q6HR [facility] Administration Protocol Metoclopramide HCl 10 mg 05/11/21 21:40 Metoclopramide 10 Mg/2 Ml Inj IV Q6H PRN Nausea And Vomiting Morphine Sulfate 2 mg 05/11/21 21:40 05/22/21 18:02 Morphine 2 Mg/1 Ml Inj IV 2 mg Q4H PRN Administration Pain, Moderate (4-6) Ondansetron HCl 4 mg 05/11/21 21:40 05/15/21 09:57 Ondansetron 4 Mg/2 Ml Inj IV 4 mg Q8H PRN Administration Nausea And Vomiting Pantoprazole Sodium 40 mg 05/15/21 10:00 05/22/21 09:12 Pantoprazole 40 Mg Inj IV 40 mg QDAY [facility] Administration Simple Syrup 15 ml 05/22/21 16:30 Simple Syrup 15 Ml FEEDTUBE PRN PRN Hypoglycemia Simple Syrup 30 ml 05/22/21 16:30 Simple Syrup 15 Ml FEEDTUBE PRN PRN Hypoglycemia Sodium Bicarbonate 325 mg 05/22/21 16:30 Sodium Bicarbonate 325 Mg Tab FEEDTUBE PRN PRN For Clogged Feeding Tube Sodium Chloride 10 ml 05/11/21 22:00 05/22/21 09:12 Sodium Chloride 0.9% 10 Ml Flush Syringe IV 10 ml BID ABRAHAN Administration Sodium Chloride 10 ml 05/11/21 21:40 05/15/21 00:35 Sodium Chloride 0.9% 10 Ml Flush Syringe IV 10 ml PRN PRN Administration LINE FLUSH Nutrition/Malnutrition Assess - Dietary Evaluation Nutrition/Malnutrition Findings: Nutrition Notes Start: 05/13/21 09:47 Freq: Status: Active Protocol: Document 05/22/21 15:45 ZENY (Rec: 05/22/21 16:09 ZENY [id number]) Nutrition Notes Initial or Follow up Brief Note Current Diet NPO. Subjective/Other Information RD consult for request on write/manage TF. TF ordered. Nutrition Intervention Nutrition Support: Start Vital AF 1.2 Po @ 42 ml /hr. Flush 130 ml water Q 4 hr. Kcal 1,220 Protein (gm) 76 Carbohydrates (gm) 112 Fat (gm) 55 Fluid (mL) 825 Fiber (gm) 5 % RDI: 76% Kcal; 76% AA. Goal #1 Provide at least 75% of energy /protein needs through Enteral Nutrition during LOS. Follow-Up By: 05/25/21 Additional Comments Continue monitoring TF tolerance.
[2021-05-21 18:51] LABS: Alanine Aminotransferase 462 units/L (7-56); Albumin 1.9 g/dL (3.9-5); Bilirubin,Direct 2.3 mg/dL (0-0.2); Blood Urea Nitrogen 19 mg/dL (7-17); Calcium 7.5 mg/dL (8.4-10.2); Hemolysis Index 24
[2021-05-21 18:53] LABS: BUN/Creatinine Ratio 95
[2021-05-21] MEDS ORDERED: TOTAL PARENTERAL NUTRITION 1,999.92 ML IV SCH (20:00)
[2021-05-21] MEDS: ENOXAPARIN 40 MG/0.4 ML INJ SUB-Q SCH (22:25)
[2021-05-21] MEDS: INSULIN GLARGINE 100 UNITS/ML SUB-Q SCH (22:26)
[2021-05-21] MEDS: HALOPERIDOL LACTATE 5 MG/1 ML INJ IV PRN (23:48)
[2021-05-22] MEDS: MORPHINE 2 MG/1 ML INJ IV PRN ×5 (01:03→22:01)
[2021-05-22 05:19] LABS: INR 1.49 (0.87-1.13)
[2021-05-22 05:25] LABS: Alanine Aminotransferase 496 units/L (7-56); Albumin 1.7 g/dL (3.9-5); Blood Urea Nitrogen 19 mg/dL (7-17); Calcium 7.2 mg/dL (8.4-10.2); Hemolysis Index 8
[2021-05-22 05:36] LABS: BUN/Creatinine Ratio 95
[2021-05-22] MEDS: INSULIN LISPRO 100 UNIT/ML SUB-Q SCH ×3 (06:09→18:02)
[2021-05-22] MEDS: MEROPENEM/NS 1 GRAM/100 ML 1 GRAM/100 ML BAG IV SCH (06:10)
--- NOTE | 2021-05-22 07:45 | Gastroenterology Progress Note ---
Assessment and Plan Liver enzymes elevated significantly yesterday, today ALT trending up rest of lft trending down; Acute hepatitis panel is negative Therefore differential diagnosis is biliary obstruction, medication related, TPN related, mild ischemic hepatitis (reports of repeated episodes of hypoxia overnight 05/19) Patient now with right upper quadrant abdominal pain therefore cholecystitis in Ddx but quite low Given LFT's and pain will obtain RUQ US, though if biliary obstruction she would not be stable for an ERCP Recommend continuing to trend LFTs and trend INR daily as well please and we will continue to follow - Patient Problems (1) Elevated bilirubin Current Visit: Yes Status: Acute (2) Elevated liver enzymes Current Visit: Yes Status: Acute (3) Sepsis Current Visit: Yes Status: Acute (4) Transaminitis Current Visit: Yes Status: Acute (5) Pancreatic cancer Current Visit: Yes Status: Chronic Qualifiers: Pancreatic malignancy location: body of pancreas Qualified Code(s): C25.1 - Malignant neoplasm of body of pancreas (6) Interstitial lung disease Current Visit: No Status: Acute Subjective Date of service: 05/22/21 Principal diagnosis: Septic shock; Pulm fibrosis; Hypoxemic resp failure; COVID- 19 infxn Interval history: Today patient is reporting right upper quadrant abdominal pain Moderate to severe Duration 1 day Objective - Constitutional Vitals: Temp Pulse Resp BP Pulse Ox 99.4 F 75 23 94/58 98 05/22/21 05:12 05/22/21 06:00 05/22/21 06:00 05/22/21 06:00 05/22/21 06:00 General appearance: obese - EENT Eyes: EOM intact ENT: hearing intact - Neck Neck: supple - Respiratory Respiratory effort: other (Difficult to auscultate breath sounds over a loud noise of the BiPAP machine) - Gastrointestinal General gastrointestinal: Present: soft, tender (Right upper quadrant tenderness to palpation) - Labs CBC & Chem 7: 05/21/21 04:00 05/22/21 04:30 Labs: Laboratory Results - last 24 hr 05/21/21 05/21/21 05/21/21 11:47 17:43 17:57 PT INR Sodium 139 Potassium 5.2 H Chloride 106.1 Carbon Dioxide 24 Anion Gap 14 BUN 19 H Creatinine 0.2 L Estimated GFR > 60 BUN/Creatinine Ratio 95 Glucose 154 H POC Glucose 139 H 147 H Calcium 7.5 L Phosphorus Magnesium Total Bilirubin 3.00 H Direct Bilirubin 2.3 H Indirect Bilirubin 0.7 AST 437 H ALT 462 H Alkaline Phosphatase 186 H Total Protein 5.5 L Albumin 1.9 L Albumin/Globulin Ratio 0.5 05/21/21 05/22/21 05/22/21 23:32 04:16 04:30 PT INR Sodium Potassium Chloride Carbon Dioxide Anion Gap BUN Creatinine Estimated GFR BUN/Creatinine Ratio Glucose POC Glucose 218 H 185 H Calcium Phosphorus 2.40 L D Magnesium 1.80 Total Bilirubin Direct Bilirubin Indirect Bilirubin AST ALT Alkaline Phosphatase Total Protein Albumin Albumin/Globulin Ratio 05/22/21 05/22/21 04:30 04:30 PT 19.5 H INR 1.49 H Sodium 134 L Potassium 4.3 Chloride 103.2 Carbon Dioxide 23 Anion Gap 12 BUN 19 H Creatinine 0.2 L Estimated GFR > 60 BUN/Creatinine Ratio 95 Glucose 208 H POC Glucose Calcium 7.2 L Phosphorus Magnesium Total Bilirubin 2.20 H Direct Bilirubin Indirect Bilirubin AST 350 H ALT 496 H Alkaline Phosphatase 167 H Total Protein 4.8 L Albumin 1.7 L Albumin/Globulin Ratio 0.5
[2021-05-22] MEDS: ARFORMOTEROL 15 MCG/2 ML NEBU IH SCH ×2 (08:55→20:39)
[2021-05-22] MEDS: BUDESONIDE 0.5 MG/2 ML NEBU IH SCH ×2 (08:55→20:39)
[2021-05-22] MEDS: dexAMETHasone 4 MG/ML VIAL IV SCH (09:12)
[2021-05-22] MEDS: PANTOPRAZOLE 40 MG INJ IV SCH (09:12)
--- NOTE | 2021-05-22 13:28 | Progress Note ---
Assessment and Plan Septic shock possible hepatobiliary source Lactic acidosis h/o pulmonary fibrosis, Acute on chronic respiratory failure on home O2 of 2 L nasal cannula Transaminitis, biliary dilation, r/o cholangitis Hyperchloremia, metabolic acidosis, hypokalemia Hypoglycemia h/o pancreatic head cancer- chemoradiation therapy h/o Hypertension - follow USS RUQ re: pain and LFT elevation - continue to follow LFT's re: transaminitis - LTAC evaluation ongoing - conservative volume management - continue care as below otherwise; - continue BIPAP scheduled qhs with prn daytime use - intubate if decompensates - continue systemic steroids at current dose - prn vasopressors for target MAP > 65 mmHg - refusing port-a-cath access; unable to place PICC line; will continue Femoral CVL X 24 hours and re-assess - MRCP pending as she remains tenuous from a respiratory standpoint - continue anti-infective's; de-escalate per ID recommendations - continue accuchecks with glycemic control per SSI (While critically ill target blood glucose of 140-180 mg/dL; avoid hypoglycemia) - continue to wean supplemental oxygen for target O2 sat's > 90% acutely - aspiration precautions - bronchodilators with pulmonary hygiene per RT - avoid nephrotoxins, renally dose all medications - prn analgesia per pain score - Maintenance of sleep-wake cycle, avoid delirium - G.I. & VTE prophylaxis - PT/OT/ROM exercises - mobility protocols for pressure ulcer prophylaxis - Monitor hemodynamics closely - continue other care per attending / other consultants - discharge planning ongoing concurrently .... Re-evaluate in am & prn CONDITION: CRITICAL PROGNOSIS: GUARDED CODE STATUS: FULL CODE The high probability of a clinically significant, sudden or life-threatening deterioration of the [respiratory, cardiovascular, GI & neurologic] system(s) required my full and direct attention, intervention and personal management. The aggregate critical care time was [34] minutes without overlap. Time includes spent on; [x] Data Review and interpretation [x] Patient assessment and monitoring of vital signs [x] Documentation [x] Medication orders and management Subjective Date of service: 05/22/21 Principal diagnosis: Septic shock; Pulm fibrosis; Hypoxemic resp failure; COVID- 19 infxn Interval history: Patient is seen today for: Septic shock; pulmonary fibrosis; Acute on chronic hypoxemic respiratory failure; Transaminitis; h/o pancreatic head cancer; HTN Seen and examined at bedside; 24hour events reviewed; nursing and respiratory care staff consulted; no adverse overnight events reported to me; resting in bed; tolerating daytime Vapotherm but with FiO2 now down to 80%; demies N/V/F//C Objective Vital Signs - 12hr 05/22/21 05/22/21 05/22/21 01:30 02:00 02:30 Temperature Pulse Rate 70 71 69 Pulse Rate [ Anterior Bilateral Throughout] Pulse Rate [ From Monitor] Respiratory 18 19 21 Rate Respiratory Rate [Anterior Bilateral Throughout] Blood Pressure 117/59 88/52 96/51 O2 Sat by Pulse 97 97 96 Oximetry 05/22/21 05/22/21 05/22/21 03:00 03:30 04:00 Temperature Pulse Rate 69 69 67 Pulse Rate [ Anterior Bilateral Throughout] Pulse Rate [ 71 From Monitor] Respiratory 19 19 21 Rate Respiratory Rate [Anterior Bilateral Throughout] Blood Pressure 92/46 91/47 86/44 O2 Sat by Pulse 97 97 97 Oximetry 05/22/21 05/22/21 05/22/21 04:20 04:21 04:30 Temperature Pulse Rate 71 74 Pulse Rate [ Anterior Bilateral Throughout] Pulse Rate [ From Monitor] Respiratory 21 25 H Rate Respiratory Rate [Anterior Bilateral Throughout] Blood Pressure 86/44 109/55 O2 Sat by Pulse 97 97 98 Oximetry 05/22/21 05/22/21 05/22/21 05:00 05:12 05:30 Temperature 99.4 F Pulse Rate 72 74 Pulse Rate [ Anterior Bilateral Throughout] Pulse Rate [ From Monitor] Respiratory 20 20 Rate Respiratory Rate [Anterior Bilateral Throughout] Blood Pressure 85/50 96/47 O2 Sat by Pulse 97 97 Oximetry 05/22/21 05/22/21 05/22/21 06:00 06:30 07:01 Temperature Pulse Rate 75 71 82 Pulse Rate [ Anterior Bilateral Throughout] Pulse Rate [ From Monitor] Respiratory 23 20 32 H Rate Respiratory Rate [Anterior Bilateral Throughout] Blood Pressure 94/58 97/58 102/57 O2 Sat by Pulse 98 98 96 Oximetry 05/22/21 05/22/21 05/22/21 07:30 08:00 08:30 Temperature 98.5 F Pulse Rate 93 H 90 87 Pulse Rate [ Anterior Bilateral Throughout] Pulse Rate [ 93 H From Monitor] Respiratory 28 H 31 H 23 Rate Respiratory Rate [Anterior Bilateral Throughout] Blood Pressure 100/66 106/62 103/57 O2 Sat by Pulse 96 96 98 Oximetry 05/22/21 05/22/21 05/22/21 08:53 08:55 09:00 Temperature Pulse Rate 94 H 96 H Pulse Rate [ 94 H Anterior Bilateral Throughout] Pulse Rate [ From Monitor] Respiratory 33 H 31 H Rate Respiratory 33 H Rate [Anterior Bilateral Throughout] Blood Pressure 103/57 112/76 O2 Sat by Pulse 94 Oximetry 05/22/21 05/22/21 05/22/21 09:29 09:30 10:00 Temperature Pulse Rate 73 67 Pulse Rate [ Anterior Bilateral Throughout] Pulse Rate [ From Monitor] Respiratory 21 21 Rate Respiratory Rate [Anterior Bilateral Throughout] Blood Pressure 102/58 104/61 O2 Sat by Pulse 96 100 100 Oximetry 05/22/21 05/22/21 05/22/21 10:30 11:00 11:30 Temperature Pulse Rate 76 64 73 Pulse Rate [ Anterior Bilateral Throughout] Pulse Rate [ From Monitor] Respiratory 24 22 23 Rate Respiratory Rate [Anterior Bilateral Throughout] Blood Pressure 104/63 110/64 109/64 O2 Sat by Pulse 93 96 90 Oximetry 05/22/21 12:00 Temperature Pulse Rate 73 Pulse Rate [ Anterior Bilateral Throughout] Pulse Rate [ 73 From Monitor] Respiratory 24 Rate Respiratory Rate [Anterior Bilateral Throughout] Blood Pressure 109/69 O2 Sat by Pulse 92 Oximetry Constitutional: no acute distress, other (mildly increased respiratory effort at rest ) Eyes: non-icteric ENT: oropharynx moist Neck: supple, no lymphadenopathy, no JVD Effort: mildly labored Ascultation: Bilateral: diminished breath sounds, rales (posterior bases) Percussion: Bilateral: not dull Cardiovascular: regular rate and rhythm, other (S1,S2) Gastrointestinal: normoactive bowel sounds, hypoactive bowel sounds, soft, non- distended (protuberant) Integumentary: normal Extremities: no cyanosis, no edema, pulses normal, other (right femoral CVL) Neurologic: normal mental status, non-focal exam, pupils equal and round, other (somnolent) Psychiatric: mood appropriate, affect normal, other (somnolenet) CBC and BMP: 05/21/21 04:00 05/24/21 04:16 ABG, PT/INR, D-dimer: ABG ABG pH 7.482 pH Units (7.350-7.450) H 05/19/21 14:14 ABG pCO2 42.9 mm Hg 05/19/21 14:14 ABG pO2 111.7 mm Hg (80.0-90.0) H 05/19/21 14:14 ABG O2 Saturation 98.2 % (95.0-99.0) 05/19/21 14:14 PT/INR, D-dimer PT 19.5 Sec. (12.2-14.9) H 05/22/21 04:30 INR 1.49 (0.87-1.13) H 05/22/21 04:30 Abnormal lab findings: Abnormal Labs 05/11/21 05/11/21 05/11/21 05:43 05:43 05:43 WBC RBC Hgb MCV 98 H RDW 17.7 H Plt Count Lymph % (Auto) 10.8 L Lymph # (Auto) 0.6 L Seg Neutrophils % 84.1 H Seg Neuts % (Manual) Lymphocytes % (Manual) Seg Neutrophils # Man Lymphocytes # (Manual) PT 16.0 H INR 1.16 H ABG pH ABG pO2 ABG HCO3 ABG Base Excess ABG Hemoglobin Oxyhemoglobin Sodium Potassium Chloride Carbon Dioxide 21 L BUN 4 L Creatinine 0.4 L Glucose POC Glucose Lactic Acid Calcium 8.3 L Phosphorus Magnesium Total Bilirubin 2.10 H Direct Bilirubin 1.4 H AST 335 H ALT 57 H Alkaline Phosphatase 339 H Total Protein Albumin 2.4 L Lipase 3 L Ur Specific [place] Vancomycin Trough 05/11/21 05/11/21 05/12/21 11:18 12:28 04:08 WBC RBC Hgb MCV RDW Plt Count Lymph % (Auto) Lymph # (Auto) Seg Neutrophils % Seg Neuts % (Manual) Lymphocytes % (Manual) Seg Neutrophils # Man Lymphocytes # (Manual) PT INR ABG pH ABG pO2 ABG HCO3 ABG Base Excess ABG Hemoglobin Oxyhemoglobin Sodium Potassium Chloride Carbon Dioxide BUN Creatinine Glucose POC Glucose Lactic Acid 4.20 H* 4.50 H* Calcium Phosphorus Magnesium Total Bilirubin Direct Bilirubin AST ALT Alkaline Phosphatase Total Protein Albumin Lipase Ur Specific [place] 1.035 H Vancomycin Trough 05/12/21 05/12/21 05/12/21 04:08 04:08 09:47 WBC 22.8 H RBC 3.39 L Hgb MCV 98 H RDW 17.7 H Plt Count Lymph % (Auto) Lymph # (Auto) Seg Neutrophils % Seg Neuts % (Manual) 85.5 H Lymphocytes % (Manual) 2.0 L Seg Neutrophils # Man 19.5 H Lymphocytes # (Manual) 0.5 L PT INR ABG pH ABG pO2 ABG HCO3 ABG Base Excess ABG Hemoglobin Oxyhemoglobin Sodium Potassium 3.3 L Chloride 108.9 H Carbon Dioxide 17 L BUN 4 L Creatinine 0.5 L Glucose 106 H POC Glucose Lactic Acid 2.60 H* Calcium 6.4 L D Phosphorus Magnesium Total Bilirubin 2.10 H Direct Bilirubin AST 156 H ALT 61 H Alkaline Phosphatase 317 H Total Protein 5.4 L D Albumin 1.8 L Lipase Ur Specific [place] Vancomycin Trough 05/12/21 05/12/21 05/12/21 11:47 12:30 12:36 WBC RBC Hgb MCV RDW Plt Count Lymph % (Auto) Lymph # (Auto) Seg Neutrophils % Seg Neuts % (Manual) Lymphocytes % (Manual) Seg Neutrophils # Man Lymphocytes # (Manual) PT INR ABG pH ABG pO2 ABG HCO3 ABG Base Excess ABG Hemoglobin Oxyhemoglobin Sodium Potassium Chloride Carbon Dioxide BUN Creatinine Glucose POC Glucose 59 L 120 H Lactic Acid 2.50 H* Calcium Phosphorus Magnesium Total Bilirubin Direct Bilirubin AST ALT Alkaline Phosphatase Total Protein Albumin Lipase Ur Specific [place] Vancomycin Trough 05/12/21 05/12/21 05/13/21 23:45 Unknown 04:00 WBC 19.8 H RBC 3.52 L Hgb MCV 98 H RDW 18.5 H Plt Count Lymph % (Auto) Lymph # (Auto) Seg Neutrophils % Seg Neuts % (Manual) Lymphocytes % (Manual) Seg Neutrophils # Man Lymphocytes # (Manual) PT INR ABG pH ABG pO2 ABG HCO3 ABG Base Excess ABG Hemoglobin Oxyhemoglobin Sodium Potassium Chloride Carbon Dioxide BUN Creatinine Glucose POC Glucose 119 H Lactic Acid 3.30 H* Calcium Phosphorus Magnesium Total Bilirubin Direct Bilirubin AST ALT Alkaline Phosphatase Total Protein Albumin Lipase Ur Specific [place] Vancomycin Trough 05/13/21 05/13/21 05/13/21 04:00 05:42 12:19 WBC RBC Hgb MCV RDW Plt Count Lymph % (Auto) Lymph # (Auto) Seg Neutrophils % Seg Neuts % (Manual) Lymphocytes % (Manual) Seg Neutrophils # Man Lymphocytes # (Manual) PT INR ABG pH ABG pO2 ABG HCO3 ABG Base Excess ABG Hemoglobin Oxyhemoglobin Sodium Potassium 3.4 L Chloride 107.1 H Carbon Dioxide 19 L BUN 4 L Creatinine 0.4 L Glucose 157 H POC Glucose 143 H 110 H Lactic Acid Calcium 7.4 L D Phosphorus 1.60 L Magnesium 1.50 L Total Bilirubin 1.40 H Direct Bilirubin AST 95 H ALT Alkaline Phosphatase 328 H Total Protein 5.5 L Albumin 1.6 L Lipase Ur Specific [place] Vancomycin Trough 05/14/21 05/14/21 05/14/21 06:15 06:15 10:25 WBC 11.7 H RBC 3.41 L Hgb MCV 98 H RDW 18.6 H Plt Count Lymph % (Auto) Lymph # (Auto) Seg Neutrophils % Seg Neuts % (Manual) Lymphocytes % (Manual) Seg Neutrophils # Man Lymphocytes # (Manual) PT INR ABG pH ABG pO2 76.0 L ABG HCO3 27.2 H ABG Base Excess ABG Hemoglobin 11.5 L Oxyhemoglobin 94.4 L Sodium Potassium 3.2 L Chloride Carbon Dioxide BUN 6 L Creatinine 0.5 L Glucose 103 H POC Glucose Lactic Acid Calcium 7.3 L Phosphorus 1.70 L Magnesium Total Bilirubin Direct Bilirubin AST 66 H ALT Alkaline Phosphatase 295 H Total Protein 5.3 L Albumin 1.8 L Lipase Ur Specific [place] Vancomycin Trough 05/14/21 05/14/21 05/14/21 15:20 15:20 17:26 WBC RBC Hgb MCV RDW Plt Count Lymph % (Auto) Lymph # (Auto) Seg Neutrophils % Seg Neuts % (Manual) Lymphocytes % (Manual) Seg Neutrophils # Man Lymphocytes # (Manual) PT INR ABG pH ABG pO2 ABG HCO3 ABG Base Excess ABG Hemoglobin Oxyhemoglobin Sodium 146 H D Potassium Chloride 108.4 H Carbon Dioxide BUN 5 L Creatinine 0.5 L Glucose POC Glucose 63 L Lactic Acid Calcium 7.6 L Phosphorus Magnesium Total Bilirubin Direct Bilirubin AST ALT Alkaline Phosphatase Total Protein Albumin Lipase Ur Specific [place] Vancomycin Trough 25.3 H 05/14/21 05/15/21 05/15/21 21:27 00:03 00:29 WBC RBC Hgb MCV RDW Plt Count Lymph % (Auto) Lymph # (Auto) Seg Neutrophils % Seg Neuts % (Manual) Lymphocytes % (Manual) Seg Neutrophils # Man Lymphocytes # (Manual) PT INR ABG pH ABG pO2 ABG HCO3 ABG Base Excess ABG Hemoglobin Oxyhemoglobin Sodium Potassium Chloride Carbon Dioxide BUN Creatinine Glucose POC Glucose 52 L 54 L 129 H Lactic Acid Calcium Phosphorus Magnesium Total Bilirubin Direct Bilirubin AST ALT Alkaline Phosphatase Total Protein Albumin Lipase Ur Specific [place] Vancomycin Trough 05/15/21 05/15/21 05/15/21 04:45 04:45 11:58 WBC RBC 3.24 L Hgb MCV 98 H RDW 18.5 H Plt Count 122 L Lymph % (Auto) 7.4 L Lymph # (Auto) 0.6 L Seg Neutrophils % 81.2 H Seg Neuts % (Manual) Lymphocytes % (Manual) Seg Neutrophils # Man Lymphocytes # (Manual) PT INR ABG pH ABG pO2 ABG HCO3 ABG Base Excess ABG Hemoglobin Oxyhemoglobin Sodium 146 H Potassium 3.1 L Chloride 108.8 H Carbon Dioxide BUN 6 L Creatinine Glucose 121 H POC Glucose 68 L Lactic Acid Calcium 7.5 L Phosphorus 2.30 L D Magnesium Total Bilirubin 1.90 H Direct Bilirubin AST 55 H ALT Alkaline Phosphatase 231 H Total Protein 5.4 L Albumin 1.5 L Lipase Ur Specific [place] Vancomycin Trough 05/15/21 05/16/21 05/16/21 13:50 00:06 00:43 WBC RBC Hgb MCV RDW Plt Count Lymph % (Auto) Lymph # (Auto) Seg Neutrophils % Seg Neuts % (Manual) Lymphocytes % (Manual) Seg Neutrophils # Man Lymphocytes # (Manual) PT INR ABG pH ABG pO2 ABG HCO3 ABG Base Excess ABG Hemoglobin Oxyhemoglobin Sodium Potassium Chloride Carbon Dioxide BUN Creatinine Glucose POC Glucose 147 H 54 L 116 H Lactic Acid Calcium Phosphorus Magnesium Total Bilirubin Direct Bilirubin AST ALT Alkaline Phosphatase Total Protein Albumin Lipase Ur Specific [place] Vancomycin Trough 05/16/21 05/16/21 05/16/21 04:31 04:31 05:58 WBC RBC 3.12 L Hgb 9.8 L MCV 98 H RDW 18.2 H Plt Count 115 L Lymph % (Auto) Lymph # (Auto) Seg Neutrophils % Seg Neuts % (Manual) Lymphocytes % (Manual) Seg Neutrophils # Man Lymphocytes # (Manual) PT INR ABG pH ABG pO2 ABG HCO3 ABG Base Excess ABG Hemoglobin Oxyhemoglobin Sodium 146 H Potassium 3.2 L Chloride Carbon Dioxide BUN 5 L Creatinine 0.5 L Glucose POC Glucose 61 L Lactic Acid Calcium 7.2 L Phosphorus 2.30 L Magnesium Total Bilirubin Direct Bilirubin AST ALT Alkaline Phosphatase Total Protein Albumin Lipase Ur Specific [place] Vancomycin Trough 05/16/21 05/16/21 05/17/21 08:11 23:42 04:15 WBC RBC Hgb MCV RDW Plt Count Lymph % (Auto) Lymph # (Auto) Seg Neutrophils % Seg Neuts % (Manual) Lymphocytes % (Manual) Seg Neutrophils # Man Lymphocytes # (Manual) PT INR ABG pH ABG pO2 ABG HCO3 ABG Base Excess ABG Hemoglobin Oxyhemoglobin Sodium Potassium Chloride Carbon Dioxide BUN Creatinine Glucose POC Glucose 58 L 200 H Lactic Acid Calcium Phosphorus Magnesium Total Bilirubin 1.70 H Direct Bilirubin 1.5 H AST 43 H ALT Alkaline Phosphatase 196 H Total Protein 5.4 L Albumin 1.6 L Lipase Ur Specific [place] Vancomycin Trough 05/17/21 05/17/21 05/17/21 04:15 04:15 05:07 WBC RBC 3.26 L Hgb MCV 98 H RDW 18.9 H Plt Count 114 L Lymph % (Auto) Lymph # (Auto) Seg Neutrophils % Seg Neuts % (Manual) Lymphocytes % (Manual) Seg Neutrophils # Man Lymphocytes # (Manual) PT INR ABG pH ABG pO2 ABG HCO3 ABG Base Excess ABG Hemoglobin Oxyhemoglobin Sodium Potassium Chloride Carbon Dioxide 35 H BUN 5 L Creatinine Glucose 274 H POC Glucose 249 H Lactic Acid Calcium 7.7 L Phosphorus 1.50 L D Magnesium Total Bilirubin Direct Bilirubin AST ALT Alkaline Phosphatase Total Protein Albumin Lipase Ur Specific [place] Vancomycin Trough 05/17/21 05/17/21 05/17/21 11:56 16:29 23:37 WBC RBC Hgb MCV RDW Plt Count Lymph % (Auto) Lymph # (Auto) Seg Neutrophils % Seg Neuts % (Manual) Lymphocytes % (Manual) Seg Neutrophils # Man Lymphocytes # (Manual) PT INR ABG pH ABG pO2 ABG HCO3 ABG Base Excess ABG Hemoglobin Oxyhemoglobin Sodium Potassium Chloride Carbon Dioxide BUN Creatinine Glucose POC Glucose 176 H 219 H 150 H Lactic Acid Calcium Phosphorus Magnesium Total Bilirubin Direct Bilirubin AST ALT Alkaline Phosphatase Total Protein Albumin Lipase Ur Specific [place] Vancomycin Trough 05/18/21 05/18/21 05/18/21 04:00 05:22 09:00 WBC RBC 3.34 L Hgb MCV RDW 18.8 H Plt Count Lymph % (Auto) Lymph # (Auto) Seg Neutrophils % Seg Neuts % (Manual) Lymphocytes % (Manual) Seg Neutrophils # Man Lymphocytes # (Manual) PT INR ABG pH ABG pO2 ABG HCO3 ABG Base Excess ABG Hemoglobin Oxyhemoglobin Sodium Potassium 5.4 H D Chloride 97.5 L Carbon Dioxide 33 H BUN Creatinine 0.4 L Glucose 461 H POC Glucose 181 H Lactic Acid Calcium 7.2 L Phosphorus 5.00 H D Magnesium Total Bilirubin Direct Bilirubin AST ALT Alkaline Phosphatase Total Protein Albumin Lipase Ur Specific [place] Vancomycin Trough 05/18/21 05/18/21 05/18/21 11:16 12:50 16:29 WBC RBC Hgb MCV RDW Plt Count Lymph % (Auto) Lymph # (Auto) Seg Neutrophils % Seg Neuts % (Manual) Lymphocytes % (Manual) Seg Neutrophils # Man Lymphocytes # (Manual) PT INR ABG pH ABG pO2 ABG HCO3 ABG Base Excess ABG Hemoglobin Oxyhemoglobin Sodium Potassium 3.4 L D Chloride Carbon Dioxide 36 H BUN 19 H Creatinine 0.4 L Glucose 231 H POC Glucose 168 H 196 H Lactic Acid Calcium 7.5 L Phosphorus 1.80 L D Magnesium Total Bilirubin Direct Bilirubin AST ALT Alkaline Phosphatase Total Protein Albumin Lipase Ur Specific [place] Vancomycin Trough 05/19/21 05/19/21 05/19/21 00:05 04:08 05:07 WBC RBC Hgb MCV RDW Plt Count Lymph % (Auto) Lymph # (Auto) Seg Neutrophils % Seg Neuts % (Manual) Lymphocytes % (Manual) Seg Neutrophils # Man Lymphocytes # (Manual) PT INR ABG pH ABG pO2 ABG HCO3 ABG Base Excess ABG Hemoglobin Oxyhemoglobin Sodium 146 H Potassium Chloride Carbon Dioxide 35 H BUN 25 H Creatinine 0.4 L Glucose 218 H POC Glucose 164 H 203 H Lactic Acid Calcium 7.2 L Phosphorus Magnesium Total Bilirubin Direct Bilirubin AST ALT Alkaline Phosphatase Total Protein Albumin Lipase Ur Specific [place] Vancomycin Trough 05/19/21 05/19/21 05/19/21 12:16 14:14 17:11 WBC RBC Hgb MCV RDW Plt Count Lymph % (Auto) Lymph # (Auto) Seg Neutrophils % Seg Neuts % (Manual) Lymphocytes % (Manual) Seg Neutrophils # Man Lymphocytes # (Manual) PT INR ABG pH 7.482 H ABG pO2 111.7 H ABG HCO3 31.4 H ABG Base Excess 7.2 H ABG Hemoglobin 11.1 L Oxyhemoglobin Sodium Potassium Chloride Carbon Dioxide BUN Creatinine Glucose POC Glucose 206 H 194 H Lactic Acid Calcium Phosphorus Magnesium Total Bilirubin Direct Bilirubin AST ALT Alkaline Phosphatase Total Protein Albumin Lipase Ur Specific [place] Vancomycin Trough 05/20/21 05/20/21 05/20/21 00:01 04:30 06:09 WBC RBC Hgb MCV RDW Plt Count Lymph % (Auto) Lymph # (Auto) Seg Neutrophils % Seg Neuts % (Manual) Lymphocytes % (Manual) Seg Neutrophils # Man Lymphocytes # (Manual) PT INR ABG pH ABG pO2 ABG HCO3 ABG Base Excess ABG Hemoglobin Oxyhemoglobin Sodium Potassium 3.5 L Chloride Carbon Dioxide BUN 24 H Creatinine 0.3 L Glucose 254 H POC Glucose 209 H 210 H Lactic Acid Calcium 7.5 L Phosphorus 1.90 L D Magnesium Total Bilirubin 1.60 H Direct Bilirubin AST 201 H ALT 170 H Alkaline Phosphatase 169 H Total Protein 5.3 L Albumin 1.9 L Lipase Ur Specific [place] Vancomycin Trough 05/20/21 05/20/21 05/20/21 11:41 16:47 22:21 WBC RBC Hgb MCV RDW Plt Count Lymph % (Auto) Lymph # (Auto) Seg Neutrophils % Seg Neuts % (Manual) Lymphocytes % (Manual) Seg Neutrophils # Man Lymphocytes # (Manual) PT INR ABG pH ABG pO2 ABG HCO3 ABG Base Excess ABG Hemoglobin Oxyhemoglobin Sodium Potassium Chloride Carbon Dioxide BUN Creatinine Glucose POC Glucose 158 H 232 H 211 H Lactic Acid Calcium Phosphorus Magnesium Total Bilirubin Direct Bilirubin AST ALT Alkaline Phosphatase Total Protein Albumin Lipase Ur Specific [place] Vancomycin Trough 05/21/21 05/21/21 05/21/21 00:35 04:00 04:00 WBC RBC 3.28 L Hgb MCV RDW 18.7 H Plt Count 125 L Lymph % (Auto) Lymph # (Auto) Seg Neutrophils % Seg Neuts % (Manual) Lymphocytes % (Manual) Seg Neutrophils # Man Lymphocytes # (Manual) PT INR ABG pH ABG pO2 ABG HCO3 ABG Base Excess ABG Hemoglobin Oxyhemoglobin Sodium Potassium 5.1 H D Chloride 108.7 H Carbon Dioxide BUN 21 H Creatinine 0.2 L Glucose 242 H POC Glucose 230 H Lactic Acid Calcium 7.3 L Phosphorus Magnesium Total Bilirubin Direct Bilirubin AST ALT Alkaline Phosphatase Total Protein Albumin Lipase Ur Specific [place] Vancomycin Trough 05/21/21 05/21/21 05/21/21 05:08 11:47 17:43 WBC RBC Hgb MCV RDW Plt Count Lymph % (Auto) Lymph # (Auto) Seg Neutrophils % Seg Neuts % (Manual) Lymphocytes % (Manual) Seg Neutrophils # Man Lymphocytes # (Manual) PT INR ABG pH ABG pO2 ABG HCO3 ABG Base Excess ABG Hemoglobin Oxyhemoglobin Sodium Potassium Chloride Carbon Dioxide BUN Creatinine Glucose POC Glucose 196 H 139 H 147 H Lactic Acid Calcium Phosphorus Magnesium Total Bilirubin Direct Bilirubin AST ALT Alkaline Phosphatase Total Protein Albumin Lipase Ur Specific [place] Vancomycin Trough 05/21/21 05/21/21 05/22/21 17:57 23:32 04:16 WBC RBC Hgb MCV RDW Plt Count Lymph % (Auto) Lymph # (Auto) Seg Neutrophils % Seg Neuts % (Manual) Lymphocytes % (Manual) Seg Neutrophils # Man Lymphocytes # (Manual) PT INR ABG pH ABG pO2 ABG HCO3 ABG Base Excess ABG Hemoglobin Oxyhemoglobin Sodium Potassium 5.2 H Chloride Carbon Dioxide BUN 19 H Creatinine 0.2 L Glucose 154 H POC Glucose 218 H 185 H Lactic Acid Calcium 7.5 L Phosphorus Magnesium Total Bilirubin 3.00 H Direct Bilirubin 2.3 H AST 437 H ALT 462 H Alkaline Phosphatase 186 H Total Protein 5.5 L Albumin 1.9 L Lipase Ur Specific [place] Vancomycin Trough 05/22/21 05/22/21 05/22/21 04:30 04:30 04:30 WBC RBC Hgb MCV RDW Plt Count Lymph % (Auto) Lymph # (Auto) Seg Neutrophils % Seg Neuts % (Manual) Lymphocytes % (Manual) Seg Neutrophils # Man Lymphocytes # (Manual) PT 19.5 H INR 1.49 H ABG pH ABG pO2 ABG HCO3 ABG Base Excess ABG Hemoglobin Oxyhemoglobin Sodium 134 L Potassium Chloride Carbon Dioxide BUN 19 H Creatinine 0.2 L Glucose 208 H POC Glucose Lactic Acid Calcium 7.2 L Phosphorus 2.40 L D Magnesium Total Bilirubin 2.20 H Direct Bilirubin AST 350 H ALT 496 H Alkaline Phosphatase 167 H Total Protein 4.8 L Albumin 1.7 L Lipase Ur Specific [place] Vancomycin Trough 05/22/21 11:59 WBC RBC Hgb MCV RDW Plt Count Lymph % (Auto) Lymph # (Auto) Seg Neutrophils % Seg Neuts % (Manual) Lymphocytes % (Manual) Seg Neutrophils # Man Lymphocytes # (Manual) PT INR ABG pH ABG pO2 ABG HCO3 ABG Base Excess ABG Hemoglobin Oxyhemoglobin Sodium Potassium Chloride Carbon Dioxide BUN Creatinine Glucose POC Glucose 204 H Lactic Acid Calcium Phosphorus Magnesium Total Bilirubin Direct Bilirubin AST ALT Alkaline Phosphatase Total Protein Albumin Lipase Ur Specific [place] Vancomycin Trough Allied health notes reviewed: nursing
--- NOTE | 2021-05-22 13:43 | Ultrasound Report ---
ULTRASOUND ABDOMEN, LIMITED (RIGHT UPPER QUADRANT) INDICATION: elevated lfts. COMPARISON: CT abdomen and pelvis with contrast from 05/11/2021. FINDINGS: The study is limited by the patient's body habitus. Pancreas: Visualized portion shows no significant abnormality. Liver: Several enlarged, measuring 17.47 cm in length, with generalized steatosis. No suspicious lesi ons. Portal venous flow is normal. Gallbladder: No significant abnormality. Sonographic Bass's sign: Not performed. Bile ducts: No significant abnormality. Common Bile Duct measures 3.7 mm. Free fluid: None. Additional Findings: None. IMPRESSION: Similar findings of hepatomegaly and steatosis without other significant abnormalities in the right u pper quadrant. Signer Name: Celio Tim MD Signed: 05/22/2021 1:39 PM Workstation Name: [id number]
[2021-05-22] MEDS ORDERED: SIMPLE SYRUP 15 ML FEEDTUBE PRN ×2 (16:30)
[2021-05-22] MEDS ORDERED: SODIUM BICARBONATE 325 MG TAB FEEDTUBE PRN (16:30)
[2021-05-22] MEDS ORDERED: LIPASE 10,500/PROTEASE 25,000/AMYLASE 43,750 (UNITS) DR CAP FEEDTUBE PRN (16:30)
--- NOTE | 2021-05-22 17:27 | Progress Note ---
<ABIOLAEBENEZER ZepedaJordan - Last Filed: 05/22/21 17:41> Assessment and Plan Assessment and plan: This is a 48-year-old female with COPD, pancreatic cancer with radiation s/p pancreatic stent placement, pulmonary fibrosis, chronic respiratory failure on 2 L nasal cannula admitted with sepsis, transaminitis and lactic acidosis. Neuro: NAD -Avoid delirium -Reorientation as needed -Maintain sleep-wake cycle CV: Hypotension, h/o HTN -Hold home htn medications -s/p vasopressor support with levo and vasopressin -BP monitoring per protocol -CCM consulted, appreciate recommendations -Hold home htn medications -s/p IV Lasix X 3days Respiratory: h/o pulmonary fibrosis, acute on chronic respiratory failure on home O2 of 2 L nasal cannula -Supplemental oxygen as needed -Tessalon Perles as needed for cough -SPO2 monitoring -Pulmonary hygiene -Bipap q hs and prn -Optiflow as tolerated -Wean FiO2 as tolerated -Pulmonary hygiene GI: Transaminitis, protein calorie malnutrition, biliary dilation, r/o cholangitis, h/o pancreatic cancer s/p stent placement -CT abdomen/pelvis showed pancreatic cancer with metallic stent with possible occlusion, mild pelvic fluid and mild colonic thickening -GI consulted, patient recommendations -MRCP pending-> plan for once respiratory status stable -If stent occlusion/biliary obstruction would recommend IR consult for PTC drain per GI -TPN -start cyclic tube feedings -ST evaluation -PPI -BR to start once taking p.o. -24-hour +390 -Acute hepatitis panel negative -Trend LFTs -Abd US shows findings similar to hepatomegaly and steatosis without significant abnormalities in the right quadrant : Hypophosphatemia -Strict intake and output -Purewick in place -Daily weights -Renally dose meds, avoid nephrotoxins -Replace Phosphate Endo: Hyperglycemia, s/p hypoglycemia -Hypoglycemia protocol -Avoid hypoglycemia -SSI every 6 hours -Lantus, titrate as needed ID: Septic shock, Lactic acidosis (improving) -Blood cultures x2 no growth to date -Patient has leukocytosis, hypotension -s/p IV meropenem -Monitor WBC and fever curve -ID consulted, appreciated recommendation -COVID PCR (-) Heme: Thrombocytopenia, Elevated INR -Trend CBC -Transfuse for hemoglobin less than 7 -SCD to bilateral lower extremities while in bed -Lovenox subcu -Monitor platelets Oncology: h/o pancreatic head cancer -F/U with outpatient oncologist -Currently on radiation -Not a surgical candidate per GI -Right chest post not accessed The high probability of a clinically significant, sudden or life threatening deterioration of the [resp, GI] system(s) required my full and direct attention, intervention and personal management. The aggregate critical care time was [60] minutes. This time is in addition to time spent performing reported procedures but includes the following: [x] Data Review and interpretation [x] Patient assessment and monitoring of vital signs [x] Documentation [x] Medication orders and management Disposition Plan: imcu Total Time Spent with Patient (Minutes): 60 History Interval history: This is a 51-year-old female with COPD, pancreatic cancer and radiation, s/p pancreatic stent placement, pulmonary fibrosis, hypertension and chronic respiratory failure on 2 L oxygen via nasal cannula who presented to emergency department on 05/11 with complaints of right upper quadrant pain which started approximately at 0200 with nausea and vomiting. Work-up in the emergency department included a CTA chest which showed no pulmonary embolism, mild fluid- filled esophagus and distended stomach with bilateral interstitial opacity in the chest, and CT abdomen/pelvis with contrast which showed persistent pancre atic carcinoma with indwelling metallic stent which is suspected to be occluded. Lab work revealed leukocytosis, transaminitis and lactic acidosis. Patient became hypotensive in the emergency department and required 3 L of IV fluid and was eventually started on vasopressors after placement of femoral central line. Patient was started on empiric antibiotics. Admitted to the hospitalist service with consults to GI and CCM for transaminitis, possible sepsis, and lactic acidosis. 05/12: Patient remains on high-dose Levophed and vasopressin. Given 1 L LR bolus. GI would like an MRCP to be conducted which has been ordered. Patient cleared for sips of water. Added Tessalon due to severe cough. Potassium repleted. Covid PCR negative. 05/13: Remains on Levophed and vasopressin has been off since yesterday evening. Started on stress dose steroids. MRCP pending. Hypokalemia, hypomagnesemia and hypophosphatemia repleted. Liver enzymes trending down. Started on D5 normal saline yesterday. 05/14: Patient with worsen respiratory status this am, tachypneic with increased O2 requirement. On full support on the Bipap this am with worsening diffuse bilateral opacities on CXR, s/p X1 dose of IV lasix overnight. Patient remains afebrile with no leukocytosis. Will continue IV Lasix X3 doses, f/u CXR in the am. D/W CCM due to patient worsening respiratory status hold on MRCP for today. Patient is off Levophed this am, leave pressors on standby might need to be put back on low dose pressors with IV diuretic. Patient also noted with Rt. fem CVC which was inserted in the ED, most likely due to be change, unsuccessfult PICC by IVT today and patient is refusing Port access at this time. 05/15: Patient remains on continuous Bipap overnight, desat when bipap is removed for mouth care. Plan to wean Fio2 as tolerated for SPO2 goal above 90%. Febrile overnight, TMAX 101.4, on IV abx zosyn, repeat blood culture ordered. Low K and phosph repleted, repeat labs in the am. 05/16: Patient back on full support on the Bipap, still not tolerating FiO2 wean, patient desat in the 80s. D/w [facility] plan to continue continuous bipap for now, patient going on over 4 days with no nutrition plan to initiate TPN tomorrow. D10w gtt added for hypoglycemia. Patient platelet continue to steadily drop, given patient's history with continue AC for now, H&H is stable, no s/s of any active bleeding. Electrolytes repleted, will continue to trend CBC, BMP, mg, and phos. MRCP canceled, plan to reorder once patient's respiratory status is more stable. 05/17: Patient remains on continuous Bipap. Patient remains on low dose Levophed, plan to wean off pressors as tolerated for a MAP above 65. Clinimix initiated overnight, plan to start TPN tonight. Hyperglycemic overnight, SSI was initiated. Low phos repleted, repeat lab in the am. 05/18: Down to 60% FIo2 on the Bipap, SPO2 above 97%. Off pressros this am, TPN is running. Patient is now hyperglycemic, SSI adjusted. Consider basal dose, lantus if hyperglycemia persist. This am labs noted, hyperkalemia and really high glucose noted totally different from normal trend, orders placed for redraw. 05/19: Overnight events noted. Started on PRN haldol for agitation. Patient placed on heated high Flow at 100%, 40L SPO2 at 100%. Continue to wean Fio2 as tolerated for SPO2 for SPO2 above 92%. Continue TPN for now. Patient still hyperglycemic basal dose lantus added Qhs. 05/20: Patient is tolerating HHFL NC, SPO2 above 95%. Continue HHFL NC during and Bipap at night. Still on TPN for nutrition, hyperglycemia persists- basal insulin increased. Low K and phosp was repleted, repeat lab in the am. 05/21: Patient unable to tolerate OptiFlow for more than couple hours and was placed back on BiPAP due to desaturation. Patient remains on TPN for nutrition which was held today due to hyperkalemia. P.m. BMP ordered but not collected. Patient refused to have port accessed and PICC line ordered. Down grading to IMCU status 05/21 abdominal ultrasound shows findings of emergency megaly and steatosis without other significant abnormality in the right upper quadrant. ST eval ordered and Ntr consult for cyclic TF. midline ordered Hospitalist Physical - Constitutional Vitals: Temp Pulse Resp BP Pulse Ox 98.3 F 95 H 37 H 114/70 81 L 05/22/21 12:00 05/22/21 16:30 05/22/21 16:30 05/22/21 16:30 05/22/21 16:30 General appearance: Present: no acute distress, obese - EENT Eyes: Present: PERRL, EOM intact ENT: hearing intact, clear oral mucosa, dentition normal - Neck Neck: Present: normal ROM - Respiratory Respiratory effort: normal Respiratory: bilateral: diminished - Cardiovascular Rhythm: regular Heart Sounds: Present: S1 & S2. Absent: systolic murmur, diastolic murmur - Extremities Extremities: no ischemia, pulses intact, pulses symmetrical, No edema, normal temperature, normal color Peripheral Pulses: within normal limits - Abdominal General gastrointestinal: soft, non-tender, non-distended, normal bowel sounds - Integumentary Integumentary: Present: warm, dry - Psychiatric Psychiatric: appropriate mood/affect, cooperative - Neurologic Neurologic: CNII-XII intact, moves all extremities - Allied Health Allied health notes reviewed: nursing, RT, social work Results - Labs CBC & Chem 7: 05/21/21 04:00 05/22/21 04:30 Labs: Laboratory Last Values WBC 9.9 K/mm3 (4.5-11.0) 05/21/21 04:00 RBC 3.28 M/mm3 (3.65-5.03) L 05/21/21 04:00 Hgb 10.3 gm/dl (10.1-14.3) 05/21/21 04:00 Hct 31.7 % (30.3-42.9) 05/21/21 04:00 MCV 97 fl (79-97) 05/21/21 04:00 MCH 32 pg (28-32) 05/21/21 04:00 MCHC 33 % (30-34) 05/21/21 04:00 RDW 18.7 % (13.2-15.2) H 05/21/21 04:00 Plt Count 125 K/mm3 (140-440) L 05/21/21 04:00 Lymph % (Auto) 7.4 % (13.4-35.0) L 05/15/21 04:45 [place] % (Auto) 6.7 % (0.0-7.3) 05/15/21 04:45 Eos % (Auto) 4.0 % (0.0-4.3) 05/15/21 04:45 Baso % (Auto) 0.7 % (0.0-1.8) 05/15/21 04:45 Lymph # (Auto) 0.6 K/mm3 (1.2-5.4) L 05/15/21 04:45 [place] # (Auto) 0.6 K/mm3 (0.0-0.8) 05/15/21 04:45 Eos # (Auto) 0.3 K/mm3 (0.0-0.4) 05/15/21 04:45 Baso # (Auto) 0.1 K/mm3 (0.0-0.1) 05/15/21 04:45 Add Manual Diff Complete 05/12/21 04:08 Total Counted 200 05/12/21 04:08 Seg Neutrophils % 81.2 % (40.0-70.0) H 05/15/21 04:45 Seg Neuts % (Manual) 85.5 % (40.0-70.0) H 05/12/21 04:08 Band Neutrophils % 8.5 % 05/12/21 04:08 Lymphocytes % (Manual) 2.0 % (13.4-35.0) L 05/12/21 04:08 Monocytes % (Manual) 3.0 % (0.0-7.3) 05/12/21 04:08 Eosinophils % (Manual) 1.0 % (0.0-4.3) 05/12/21 04:08 Nucleated RBC % Not Reportable 05/12/21 04:08 Seg Neutrophils # 6.7 K/mm3 (1.8-7.7) 05/15/21 04:45 Seg Neutrophils # Man 19.5 K/mm3 (1.8-7.7) H 05/12/21 04:08 Band Neutrophils # 1.9 K/mm3 05/12/21 04:08 Lymphocytes # (Manual) 0.5 K/mm3 (1.2-5.4) L 05/12/21 04:08 Abs React Lymphs (Man) 0.0 K/mm3 05/12/21 04:08 Monocytes # (Manual) 0.7 K/mm3 (0.0-0.8) 05/12/21 04:08 Eosinophils # (Manual) 0.2 K/mm3 (0.0-0.4) 05/12/21 04:08 Basophils # (Manual) 0.0 K/mm3 (0.0-0.1) 05/12/21 04:08 Metamyelocytes # 0.0 K/mm3 05/12/21 04:08 Myelocytes # 0.0 K/mm3 05/12/21 04:08 Promyelocytes # 0.0 K/mm3 05/12/21 04:08 Blast Cells # 0.0 K/mm3 05/12/21 04:08 WBC Morphology Not Reportable 05/12/21 04:08 Hypersegmented Neuts Not Reportable 05/12/21 04:08 Hyposegmented Neuts Not Reportable 05/12/21 04:08 Hypogranular Neuts Not Reportable 05/12/21 04:08 Smudge Cells Not Reportable 05/12/21 04:08 Toxic Granulation Not Reportable 05/12/21 04:08 Toxic Vacuolation Not Reportable 05/12/21 04:08 Dohle Bodies Not Reportable 05/12/21 04:08 Pelger-Huet Anomaly Not Reportable 05/12/21 04:08 Elizabeth Rods Not Reportable 05/12/21 04:08 Platelet Estimate Consistent w auto 05/12/21 04:08 Clumped Platelets Not Reportable 05/12/21 04:08 Plt Clumps, EDTA Not Reportable 05/12/21 04:08 Large Platelets Not Reportable 05/12/21 04:08 Giant Platelets Not Reportable 05/12/21 04:08 Platelet Satelliting Not Reportable 05/12/21 04:08 Plt Morphology Comment Not Reportable 05/12/21 04:08 RBC Morphology Not Reportable 05/12/21 04:08 Dimorphic RBCs Not Reportable 05/12/21 04:08 Polychromasia Not Reportable 05/12/21 04:08 Hypochromasia Not Reportable 05/12/21 04:08 Poikilocytosis Not Reportable 05/12/21 04:08 Anisocytosis 1+ 05/12/21 04:08 Microcytosis Not Reportable 05/12/21 04:08 Macrocytosis Not Reportable 05/12/21 04:08 Spherocytes Not Reportable 05/12/21 04:08 Pappenheimer Bodies Not Reportable 05/12/21 04:08 Sickle Cells Not Reportable 05/12/21 04:08 Target Cells Not Reportable 05/12/21 04:08 Tear Drop Cells Not Reportable 05/12/21 04:08 Ovalocytes Not Reportable 05/12/21 04:08 Helmet Cells Not Reportable 05/12/21 04:08 [place] Bodies Not Reportable 05/12/21 04:08 [place] Rings Not Reportable 05/12/21 04:08 Marcin Cells Not Reportable 05/12/21 04:08 Bite Cells Not Reportable 05/12/21 04:08 Crenated Cell Not Reportable 05/12/21 04:08 Elliptocytes Not Reportable 05/12/21 04:08 Acanthocytes (Spur) Not Reportable 05/12/21 04:08 Rouleaux Not Reportable 05/12/21 04:08 Hemoglobin C Crystals Not Reportable 05/12/21 04:08 Schistocytes Not Reportable 05/12/21 04:08 Malaria parasites Not Reportable 05/12/21 04:08 Tahir Bodies Not Reportable 05/12/21 04:08 Hem Pathologist Commnt No 05/12/21 04:08 PT 19.5 Sec. (12.2-14.9) H 05/22/21 04:30 INR 1.49 (0.87-1.13) H 05/22/21 04:30 ABG pH 7.482 pH Units (7.350-7.450) H 05/19/21 14:14 ABG pCO2 42.9 mm Hg 05/19/21 14:14 ABG pO2 111.7 mm Hg (80.0-90.0) H 05/19/21 14:14 ABG HCO3 31.4 mmol/L (20.0-26.0) H 05/19/21 14:14 ABG O2 Saturation 98.2 % (95.0-99.0) 05/19/21 14:14 ABG O2 Content 15.2 (0.0-44) 05/19/21 14:14 ABG Base Excess 7.2 mmol/L (-2.0-3.0) H 05/19/21 14:14 ABG Hemoglobin 11.1 gm/dl (12.0-16.0) L 05/19/21 14:14 ABG Carboxyhemoglobin 1.1 % (0.0-5.0) 05/19/21 14:14 ABG Methemoglobin 0.6 % (0.0-1.5) 05/19/21 14:14 Oxyhemoglobin 96.4 % (95.0-99.0) 05/19/21 14:14 FiO2 100 % 05/19/21 14:14 Sodium 134 mmol/L (137-145) L 05/22/21 04:30 Potassium 4.3 mmol/L (3.6-5.0) 05/22/21 04:30 Chloride 103.2 mmol/L (98-107) 05/22/21 04:30 Carbon Dioxide 23 mmol/L (22-30) 05/22/21 04:30 Anion Gap 12 mmol/L 05/22/21 04:30 BUN 19 mg/dL (7-17) H 05/22/21 04:30 Creatinine 0.2 mg/dL (0.6-1.2) L 05/22/21 04:30 Estimated GFR > 60 ml/min 05/22/21 04:30 BUN/Creatinine Ratio 95 % 05/22/21 04:30 Glucose 208 mg/dL (65-100) H 05/22/21 04:30 POC Glucose 244 mg/dL (70-105) H 05/22/21 17:16 Hemoglobin A1c 5.2 % (4-6) 05/12/21 04:08 Lactic Acid 3.30 mmol/L (0.7-2.0) H* 05/12/21 Unknown Calcium 7.2 mg/dL (8.4-10.2) L 05/22/21 04:30 Phosphorus 2.40 mg/dL (2.5-4.5) L D 05/22/21 04:30 Magnesium 1.80 mg/dL (1.7-2.3) 05/22/21 04:30 Total Bilirubin 2.20 mg/dL (0.1-1.2) H 05/22/21 04:30 Direct Bilirubin 2.3 mg/dL (0-0.2) H 05/21/21 17:57 Indirect Bilirubin 0.7 mg/dL 05/21/21 17:57 AST 350 units/L (5-40) H 05/22/21 04:30 ALT 496 units/L (7-56) H 05/22/21 04:30 Alkaline Phosphatase 167 units/L (35-129) H 05/22/21 04:30 Total Protein 4.8 g/dL (6.3-8.2) L 05/22/21 04:30 Albumin 1.7 g/dL (3.9-5) L 05/22/21 04:30 Albumin/Globulin Ratio 0.5 % 05/22/21 04:30 Lipase 3 units/L (13-60) L 05/11/21 05:43 Urine Color Deisi (Yellow) 05/11/21 11:18 Urine Turbidity Clear (Clear) 05/11/21 11:18 Urine pH 6.0 (5.0-7.0) 05/11/21 11:18 Ur Specific [place] 1.035 (1.003-1.030) H 05/11/21 11:18 Urine Protein 100 mg/dl mg/dL (Negative) 05/11/21 11:18 Urine Glucose (UA) Neg mg/dL (Negative) 05/11/21 11:18 Urine Ketones Neg mg/dL (Negative) 05/11/21 11:18 Urine Blood Neg (Negative) 05/11/21 11:18 Urine Nitrite Neg (Negative) 05/11/21 11:18 Urine Bilirubin Neg (Negative) 05/11/21 11:18 Urine Urobilinogen < 2.0 mg/dL (<2.0) 05/11/21 11:18 Ur Leukocyte Esterase Neg (Negative) 05/11/21 11:18 Urine WBC (Auto) 2.0 /HPF (0.0-6.0) 05/11/21 11:18 Urine RBC (Auto) 1.0 /HPF (0.0-6.0) 05/11/21 11:18 Urine Mucus Few /HPF 05/11/21 11:18 Vancomycin Trough 25.3 ug/mL (5.0-20.0) H 05/14/21 15:20 Coronavirus (PCR) Negative (Negative) 05/12/21 10:16 Hepatitis A IgM Ab Non-reactive (NonReactive) 05/12/21 12:30 Hep Bs Antigen Nonreactive (Negative) 05/12/21 12:30 Hep B Core IgM Ab Non-reactive (NonReactive) 05/12/21 12:30 Hepatitis C Antibody Non-reactive (NonReactive) 05/12/21 12:30 Rivas/IV: Voiding Method Indwelling Catheter Active Medications - Current Medications Current Medications: Generic Name Dose Route Start Last Admin Trade Name Freq PRN Reason Stop Dose Admin Acetaminophen 650 mg 05/11/21 21:40 05/14/21 20:06 Acetaminophen 325 Mg Tab PO 650 mg Q4H PRN Administration Pain MILD(1-3)/Fever >100.5/WOODS Lipase/Protease/Amylase 1 each 05/22/21 16:30 Lipase 10,500/Protease 25,000/Amylase 43,750 (Units) Dr Baker FEEDTUBE PRN PRN For Clogged Feeding Tube Arformoterol Tartrate 15 mcg 05/12/21 08:00 05/22/21 08:55 Arformoterol 15 Mcg/2 Ml Nebu IH 15 mcg Q12HRT ABRAHAN Administration Benzonatate 100 mg 05/12/21 15:53 05/21/21 11:24 Benzonatate 100 Mg Cap PO 100 mg Q8HR PRN Administration Cough Budesonide 0.5 mg 05/12/21 08:00 05/22/21 08:55 Budesonide 0.5 Mg/2 Ml Nebu IH 0.5 mg Q12HRT ABRAHAN Administration Dexamethasone 6 mg 05/16/21 13:00 05/22/21 09:12 Dexamethasone 4 Mg/Ml Vial IV 6 mg Q24HR ABRAHAN Administration Dextrose 50 ml 05/12/21 11:57 05/16/21 08:30 Dextrose 50% In Water (25gm) 50 Ml Syringe IV 20 ml Q30MIN PRN Administration Hypoglycemia Protocol Enoxaparin Sodium 40 mg 05/14/21 22:00 05/21/21 22:25 Enoxaparin 40 Mg/0.4 Ml Inj SUB-Q 40 mg QDAY@2200 [facility] Administration Protocol Haloperidol Lactate 5 mg 05/19/21 15:00 05/21/21 23:48 Haloperidol Lactate 5 Mg/1 Ml Inj IV 5 mg Q8H PRN Administration Agitation NORepinephrine/NS 8 MG-250 ML 8 mg in 250 mls @ 3.75 mls/hr 05/11/21 15:00 05/17/21 11:05 Norepinephrine/Ns 8 Mg-250 Ml (Double Conc) IV 0 mcg/min TITRATE ABRAHAN 0 mls/hr Titration Protocol 2 MCG/MIN Amino Acids/Electrolytes/Dextrose 1,999.92 mls @ 83.33 mls/hr 05/21/21 20:00 05/21/21 21:11 Tpn Adult IV 05/22/21 19:59 83.33 mls/hr DAILY@1999 [facility] Administration Protocol Amino Acids/Electrolytes/Dextrose 1,999.92 mls @ 83.33 mls/hr 05/22/21 20:00 Tpn Adult IV 05/23/21 19:59 DAILY@1999 [facility] Protocol Insulin Glargine 15 units 05/20/21 22:00 05/21/21 22:26 Insulin Glargine 100 Units/Ml SUB-Q 15 units QHS ABRAHAN Administration Insulin Human Lispro 0 unit 05/17/21 12:00 05/22/21 12:35 Insulin Lispro 100 Unit/Ml SUB-Q 4 unit Q6HR ABRAHAN Administration Protocol Metoclopramide HCl 10 mg 05/11/21 21:40 Metoclopramide 10 Mg/2 Ml Inj IV Q6H PRN Nausea And Vomiting Morphine Sulfate 2 mg 05/11/21 21:40 05/22/21 12:35 Morphine 2 Mg/1 Ml Inj IV 2 mg Q4H PRN Administration Pain, Moderate (4-6) Ondansetron HCl 4 mg 05/11/21 21:40 05/15/21 09:57 Ondansetron 4 Mg/2 Ml Inj IV 4 mg Q8H PRN Administration Nausea And Vomiting Pantoprazole Sodium 40 mg 05/15/21 10:00 05/22/21 09:12 Pantoprazole 40 Mg Inj IV 40 mg QDAY ABRAHAN Administration Simple Syrup 15 ml 05/22/21 16:30 Simple Syrup 15 Ml FEEDTUBE PRN PRN Hypoglycemia Simple Syrup 30 ml 05/22/21 16:30 Simple Syrup 15 Ml FEEDTUBE PRN PRN Hypoglycemia Sodium Bicarbonate 325 mg 05/22/21 16:30 Sodium Bicarbonate 325 Mg Tab FEEDTUBE PRN PRN For Clogged Feeding Tube Sodium Chloride 10 ml 05/11/21 22:00 05/22/21 09:12 Sodium Chloride 0.9% 10 Ml Flush Syringe IV 10 ml BID ABRAHAN Administration Sodium Chloride 10 ml 05/11/21 21:40 05/15/21 00:35 Sodium Chloride 0.9% 10 Ml Flush Syringe IV 10 ml PRN PRN Administration LINE FLUSH Nutrition/Malnutrition Assess - Dietary Evaluation Nutrition/Malnutrition Findings: Nutrition Notes Start: 05/13/21 09:47 Freq: Status: Active Protocol: Document 05/22/21 15:45 ZENY (Rec: 05/22/21 16:09 ZENY [email or web address]) Nutrition Notes Initial or Follow up Brief Note Current Diet NPO. Subjective/Other Information RD consult for request on write/manage TF. TF ordered. Nutrition Intervention Nutrition Support: Start Vital AF 1.2 Po @ 42 ml /hr. Flush 130 ml water Q 4 hr. Kcal 1,220 Protein (gm) 76 Carbohydrates (gm) 112 Fat (gm) 55 Fluid (mL) 825 Fiber (gm) 5 % RDI: 76% Kcal; 76% AA. Goal #1 Provide at least 75% of energy /protein needs through Enteral Nutrition during LOS. Follow-Up By: 05/25/21 Additional Comments Continue monitoring TF tolerance. <TIM RETANA O - Last Filed: 05/23/21 09:19> Assessment and Plan Assessment and plan: I saw and evaluated the patient. I agree with the findings and the plan of care as documented in the Nurse Practitioner's~note, with the following corrections and additions. Patient with acute resp failure. Improving. Transfer to [facility]. Hospitalist Physical - Constitutional Vitals: Temp Pulse Resp BP Pulse Ox 98.1 F 68 20 116/63 97 05/23/21 08:00 05/23/21 06:01 05/23/21 06:01 05/23/21 05:09 05/23/21 06:01 Results - Labs CBC & Chem 7: 05/21/21 04:00 05/22/21 04:30 Labs: Laboratory Last Values WBC 9.9 K/mm3 (4.5-11.0) 05/21/21 04:00 RBC 3.28 M/mm3 (3.65-5.03) L 05/21/21 04:00 Hgb 10.3 gm/dl (10.1-14.3) 05/21/21 04:00 Hct 31.7 % (30.3-42.9) 05/21/21 04:00 MCV 97 fl (79-97) 05/21/21 04:00 MCH 32 pg (28-32) 05/21/21 04:00 MCHC 33 % (30-34) 05/21/21 04:00 RDW 18.7 % (13.2-15.2) H 05/21/21 04:00 Plt Count 125 K/mm3 (140-440) L 05/21/21 04:00 Lymph % (Auto) 7.4 % (13.4-35.0) L 05/15/21 04:45 [place] % (Auto) 6.7 % (0.0-7.3) 05/15/21 04:45 Eos % (Auto) 4.0 % (0.0-4.3) 05/15/21 04:45 Baso % (Auto) 0.7 % (0.0-1.8) 05/15/21 04:45 Lymph # (Auto) 0.6 K/mm3 (1.2-5.4) L 05/15/21 04:45 [place] # (Auto) 0.6 K/mm3 (0.0-0.8) 05/15/21 04:45 Eos # (Auto) 0.3 K/mm3 (0.0-0.4) 05/15/21 04:45 Baso # (Auto) 0.1 K/mm3 (0.0-0.1) 05/15/21 04:45 Add Manual Diff Complete 05/12/21 04:08 Total Counted 200 05/12/21 04:08 Seg Neutrophils % 81.2 % (40.0-70.0) H 05/15/21 04:45 Seg Neuts % (Manual) 85.5 % (40.0-70.0) H 05/12/21 04:08 Band Neutrophils % 8.5 % 05/12/21 04:08 Lymphocytes % (Manual) 2.0 % (13.4-35.0) L 05/12/21 04:08 Monocytes % (Manual) 3.0 % (0.0-7.3) 05/12/21 04:08 Eosinophils % (Manual) 1.0 % (0.0-4.3) 05/12/21 04:08 Nucleated RBC % Not Reportable 05/12/21 04:08 Seg Neutrophils # 6.7 K/mm3 (1.8-7.7) 05/15/21 04:45 Seg Neutrophils # Man 19.5 K/mm3 (1.8-7.7) H 05/12/21 04:08 Band Neutrophils # 1.9 K/mm3 05/12/21 04:08 Lymphocytes # (Manual) 0.5 K/mm3 (1.2-5.4) L 05/12/21 04:08 Abs React Lymphs (Man) 0.0 K/mm3 05/12/21 04:08 Monocytes # (Manual) 0.7 K/mm3 (0.0-0.8) 05/12/21 04:08 Eosinophils # (Manual) 0.2 K/mm3 (0.0-0.4) 05/12/21 04:08 Basophils # (Manual) 0.0 K/mm3 (0.0-0.1) 05/12/21 04:08 Metamyelocytes # 0.0 K/mm3 05/12/21 04:08 Myelocytes # 0.0 K/mm3 05/12/21 04:08 Promyelocytes # 0.0 K/mm3 05/12/21 04:08 Blast Cells # 0.0 K/mm3 05/12/21 04:08 WBC Morphology Not Reportable 05/12/21 04:08 Hypersegmented Neuts Not Reportable 05/12/21 04:08 Hyposegmented Neuts Not Reportable 05/12/21 04:08 Hypogranular Neuts Not Reportable 05/12/21 04:08 Smudge Cells Not Reportable 05/12/21 04:08 Toxic Granulation Not Reportable 05/12/21 04:08 Toxic Vacuolation Not Reportable 05/12/21 04:08 Dohle Bodies Not Reportable 05/12/21 04:08 Pelger-Huet Anomaly Not Reportable 05/12/21 04:08 Elizabeth Rods Not Reportable 05/12/21 04:08 Platelet Estimate Consistent w auto 05/12/21 04:08 Clumped Platelets Not Reportable 05/12/21 04:08 Plt Clumps, EDTA Not Reportable 05/12/21 04:08 Large Platelets Not Reportable 05/12/21 04:08 Giant Platelets Not Reportable 05/12/21 04:08 Platelet Satelliting Not Reportable 05/12/21 04:08 Plt Morphology Comment Not Reportable 05/12/21 04:08 RBC Morphology Not Reportable 05/12/21 04:08 Dimorphic RBCs Not Reportable 05/12/21 04:08 Polychromasia Not Reportable 05/12/21 04:08 Hypochromasia Not Reportable 05/12/21 04:08 Poikilocytosis Not Reportable 05/12/21 04:08 Anisocytosis 1+ 05/12/21 04:08 Microcytosis Not Reportable 05/12/21 04:08 Macrocytosis Not Reportable 05/12/21 04:08 Spherocytes Not Reportable 05/12/21 04:08 Pappenheimer Bodies Not Reportable 05/12/21 04:08 Sickle Cells Not Reportable 05/12/21 04:08 Target Cells Not Reportable 05/12/21 04:08 Tear Drop Cells Not Reportable 05/12/21 04:08 Ovalocytes Not Reportable 05/12/21 04:08 Helmet Cells Not Reportable 05/12/21 04:08 [place] Bodies Not Reportable 05/12/21 04:08 [place] Rings Not Reportable 05/12/21 04:08 [place] Cells Not Reportable 05/12/21 04:08 Bite Cells Not Reportable 05/12/21 04:08 Crenated Cell Not Reportable 05/12/21 04:08 Elliptocytes Not Reportable 05/12/21 04:08 Acanthocytes (Spur) Not Reportable 05/12/21 04:08 Rouleaux Not Reportable 05/12/21 04:08 Hemoglobin C Crystals Not Reportable 05/12/21 04:08 Schistocytes Not Reportable 05/12/21 04:08 Malaria parasites Not Reportable 05/12/21 04:08 Tahir Bodies Not Reportable 05/12/21 04:08 Hem Pathologist Commnt No 05/12/21 04:08 PT 19.5 Sec. (12.2-14.9) H 05/22/21 04:30 INR 1.49 (0.87-1.13) H 05/22/21 04:30 ABG pH 7.482 pH Units (7.350-7.450) H 05/19/21 14:14 ABG pCO2 42.9 mm Hg 05/19/21 14:14 ABG pO2 111.7 mm Hg (80.0-90.0) H 05/19/21 14:14 ABG HCO3 31.4 mmol/L (20.0-26.0) H 05/19/21 14:14 ABG O2 Saturation 98.2 % (95.0-99.0) 05/19/21 14:14 ABG O2 Content 15.2 (0.0-44) 05/19/21 14:14 ABG Base Excess 7.2 mmol/L (-2.0-3.0) H 05/19/21 14:14 ABG Hemoglobin 11.1 gm/dl (12.0-16.0) L 05/19/21 14:14 ABG Carboxyhemoglobin 1.1 % (0.0-5.0) 05/19/21 14:14 ABG Methemoglobin 0.6 % (0.0-1.5) 05/19/21 14:14 Oxyhemoglobin 96.4 % (95.0-99.0) 05/19/21 14:14 FiO2 100 % 05/19/21 14:14 Sodium 134 mmol/L (137-145) L 05/22/21 04:30 Potassium 4.3 mmol/L (3.6-5.0) 05/22/21 04:30 Chloride 103.2 mmol/L (98-107) 05/22/21 04:30 Carbon Dioxide 23 mmol/L (22-30) 05/22/21 04:30 Anion Gap 12 mmol/L 05/22/21 04:30 BUN 19 mg/dL (7-17) H 05/22/21 04:30 Creatinine 0.2 mg/dL (0.6-1.2) L 05/22/21 04:30 Estimated GFR > 60 ml/min 05/22/21 04:30 BUN/Creatinine Ratio 95 % 05/22/21 04:30 Glucose 208 mg/dL (65-100) H 05/22/21 04:30 POC Glucose 175 mg/dL (70-105) H 05/23/21 05:09 Hemoglobin A1c 5.2 % (4-6) 05/12/21 04:08 Lactic Acid 3.30 mmol/L (0.7-2.0) H* 05/12/21 Unknown Calcium 7.2 mg/dL (8.4-10.2) L 05/22/21 04:30 Phosphorus 2.40 mg/dL (2.5-4.5) L D 05/22/21 04:30 Magnesium 1.80 mg/dL (1.7-2.3) 05/22/21 04:30 Total Bilirubin 2.20 mg/dL (0.1-1.2) H 05/22/21 04:30 Direct Bilirubin 2.3 mg/dL (0-0.2) H 05/21/21 17:57 Indirect Bilirubin 0.7 mg/dL 05/21/21 17:57 AST 350 units/L (5-40) H 05/22/21 04:30 ALT 496 units/L (7-56) H 05/22/21 04:30 Alkaline Phosphatase 167 units/L (35-129) H 05/22/21 04:30 Total Protein 4.8 g/dL (6.3-8.2) L 05/22/21 04:30 Albumin 1.7 g/dL (3.9-5) L 05/22/21 04:30 Albumin/Globulin Ratio 0.5 % 05/22/21 04:30 Lipase 3 units/L (13-60) L 05/11/21 05:43 Urine Color Deisi (Yellow) 05/11/21 11:18 Urine Turbidity Clear (Clear) 05/11/21 11:18 Urine pH 6.0 (5.0-7.0) 05/11/21 11:18 Ur Specific [place] 1.035 (1.003-1.030) H 05/11/21 11:18 Urine Protein 100 mg/dl mg/dL (Negative) 05/11/21 11:18 Urine Glucose (UA) Neg mg/dL (Negative) 05/11/21 11:18 Urine Ketones Neg mg/dL (Negative) 05/11/21 11:18 Urine Blood Neg (Negative) 05/11/21 11:18 Urine Nitrite Neg (Negative) 05/11/21 11:18 Urine Bilirubin Neg (Negative) 05/11/21 11:18 Urine Urobilinogen < 2.0 mg/dL (<2.0) 05/11/21 11:18 Ur Leukocyte Esterase Neg (Negative) 05/11/21 11:18 Urine WBC (Auto) 2.0 /HPF (0.0-6.0) 05/11/21 11:18 Urine RBC (Auto) 1.0 /HPF (0.0-6.0) 05/11/21 11:18 Urine Mucus Few /HPF 05/11/21 11:18 Vancomycin Trough 25.3 ug/mL (5.0-20.0) H 05/14/21 15:20 Coronavirus (PCR) Negative (Negative) 05/12/21 10:16 Hepatitis A IgM Ab Non-reactive (NonReactive) 05/12/21 12:30 Hep Bs Antigen Nonreactive (Negative) 05/12/21 12:30 Hep B Core IgM Ab Non-reactive (NonReactive) 05/12/21 12:30 Hepatitis C Antibody Non-reactive (NonReactive) 05/12/21 12:30 Rivas/IV: Voiding Method External Female Catheter Active Medications - Current Medications Current Medications: Generic Name Dose Route Start Last Admin Trade Name Freq PRN Reason Stop Dose Admin Acetaminophen 650 mg 05/11/21 21:40 05/14/21 20:06 Acetaminophen 325 Mg Tab PO 650 mg Q4H PRN Administration Pain MILD(1-3)/Fever >100.5/WOODS Lipase/Protease/Amylase 1 each 05/22/21 16:30 Lipase 10,500/Protease 25,000/Amylase 43,750 (Units) Dr Baker FEEDTUBE PRN PRN For Clogged Feeding Tube Arformoterol Tartrate 15 mcg 05/12/21 08:00 05/22/21 20:39 Arformoterol 15 Mcg/2 Ml Nebu IH 15 mcg Q12HRT ABRAHAN Administration Benzonatate 100 mg 05/12/21 15:53 05/21/21 11:24 Benzonatate 100 Mg Cap PO 100 mg Q8HR PRN Administration Cough Budesonide 0.5 mg 05/12/21 08:00 05/22/21 20:39 Budesonide 0.5 Mg/2 Ml Nebu IH 0.5 mg Q12HRT ABRAHAN Administration Dexamethasone 6 mg 05/16/21 13:00 05/22/21 09:12 Dexamethasone 4 Mg/Ml Vial IV 6 mg Q24HR ABRAHAN Administration Dextrose 50 ml 05/12/21 11:57 05/16/21 08:30 Dextrose 50% In Water (25gm) 50 Ml Syringe IV 20 ml Q30MIN PRN Administration Hypoglycemia Protocol Enoxaparin Sodium 40 mg 05/14/21 22:00 05/22/21 21:01 Enoxaparin 40 Mg/0.4 Ml Inj SUB-Q 40 mg QDAY@2200 [facility] Administration Protocol Haloperidol Lactate 5 mg 05/19/21 15:00 05/21/21 23:48 Haloperidol Lactate 5 Mg/1 Ml Inj IV 5 mg Q8H PRN Administration Agitation Amino Acids/Electrolytes/Dextrose 1,999.92 mls @ 83.33 mls/hr 05/22/21 20:00 05/22/21 20:50 Tpn Adult IV 05/23/21 19:59 83.33 mls/hr DAILY@2000 [facility] Administration Protocol Insulin Glargine 20 units 05/22/21 22:00 05/22/21 21:01 Insulin Glargine 100 Units/Ml SUB-Q 20 units QHS ABRAHAN Administration Insulin Human Lispro 0 unit 05/17/21 12:00 05/23/21 05:31 Insulin Lispro 100 Unit/Ml SUB-Q 3 unit Q6HR ABRAHAN Administration Protocol Metoclopramide HCl 10 mg 05/11/21 21:40 Metoclopramide 10 Mg/2 Ml Inj IV Q6H PRN Nausea And Vomiting Morphine Sulfate 2 mg 05/11/21 21:40 05/23/21 05:27 Morphine 2 Mg/1 Ml Inj IV 2 mg Q4H PRN Administration Pain, Moderate (4-6) Ondansetron HCl 4 mg 05/11/21 21:40 05/15/21 09:57 Ondansetron 4 Mg/2 Ml Inj IV 4 mg Q8H PRN Administration Nausea And Vomiting Pantoprazole Sodium 40 mg 05/15/21 10:00 05/22/21 09:12 Pantoprazole 40 Mg Inj IV 40 mg QDAY ABRAHAN Administration Simple Syrup 15 ml 05/22/21 16:30 Simple Syrup 15 Ml FEEDTUBE PRN PRN Hypoglycemia Simple Syrup 30 ml 05/22/21 16:30 Simple Syrup 15 Ml FEEDTUBE PRN PRN Hypoglycemia Sodium Bicarbonate 325 mg 05/22/21 16:30 Sodium Bicarbonate 325 Mg Tab FEEDTUBE PRN PRN For Clogged Feeding Tube Sodium Chloride 10 ml 05/11/21 22:00 05/22/21 21:00 Sodium Chloride 0.9% 10 Ml Flush Syringe IV 10 ml BID ABRAHAN Administration Sodium Chloride 10 ml 05/11/21 21:40 05/15/21 00:35 Sodium Chloride 0.9% 10 Ml Flush Syringe IV 10 ml PRN PRN Administration LINE FLUSH Nutrition/Malnutrition Assess - Dietary Evaluation Nutrition/Malnutrition Findings: Nutrition Notes Start: 05/13/21 09:47 Freq: Status: Active Protocol: Document 05/22/21 15:45 ZENY (Rec: 05/22/21 16:09 [email or web address] [id number]) Nutrition Notes Initial or Follow up Brief Note Current Diet NPO. Subjective/Other Information RD consult for request on write/manage TF. TF ordered. Nutrition Intervention Nutrition Support: Start Vital AF 1.2 Po @ 42 ml /hr. Flush 130 ml water Q 4 hr. Kcal 1,220 Protein (gm) 76 Carbohydrates (gm) 112 Fat (gm) 55 Fluid (mL) 825 Fiber (gm) 5 % RDI: 76% Kcal; 76% AA. Goal #1 Provide at least 75% of energy /protein needs through Enteral Nutrition during LOS. Follow-Up By: 05/25/21 Additional Comments Continue monitoring TF tolerance.
[2021-05-22] MEDS ORDERED: TOTAL PARENTERAL NUTRITION 1,999.92 ML IV SCH (20:00)
[2021-05-22] MEDS: ENOXAPARIN 40 MG/0.4 ML INJ SUB-Q SCH (21:01)
[2021-05-22] MEDS: INSULIN GLARGINE 100 UNITS/ML SUB-Q SCH (21:01)
[2021-05-23] MEDS: INSULIN LISPRO 100 UNIT/ML SUB-Q SCH ×5 (00:24→23:40)
[2021-05-23] MEDS: MORPHINE 2 MG/1 ML INJ IV PRN ×3 (05:27→22:08)
[2021-05-23] MEDS: BUDESONIDE 0.5 MG/2 ML NEBU IH SCH ×2 (08:53→20:40)
[2021-05-23] MEDS: ARFORMOTEROL 15 MCG/2 ML NEBU IH SCH ×2 (08:53→20:40)
--- NOTE | 2021-05-23 09:19 | Progress Note ---
Assessment and Plan Assessment and plan: This is a 48-year-old female with COPD, pancreatic cancer with radiation s/p pancreatic stent placement, pulmonary fibrosis, chronic respiratory failure on 2 L nasal cannula admitted with sepsis, transaminitis and lactic acidosis. Neuro: NAD -Avoid delirium -Reorientation as needed -Maintain sleep-wake cycle CV: Hypotension, h/o HTN -Hold home htn medications -s/p vasopressor support with levo and vasopressin -BP monitoring per protocol -CCM consulted, appreciate recommendations -Hold home htn medications -s/p IV Lasix X 3days Respiratory: h/o pulmonary fibrosis, acute on chronic respiratory failure on home O2 of 2 L nasal cannula -Supplemental oxygen as needed -Tessalon Perles as needed for cough -SPO2 monitoring -Pulmonary hygiene -Bipap q hs and prn -Optiflow as tolerated -Wean FiO2 as tolerated -Pulmonary hygiene GI: Transaminitis, protein calorie malnutrition, biliary dilation, r/o cholangitis, h/o pancreatic cancer s/p stent placement -CT abdomen/pelvis showed pancreatic cancer with metallic stent with possible occlusion, mild pelvic fluid and mild colonic thickening -GI consulted, patient recommendations -MRCP pending-> plan for once respiratory status stable -If stent occlusion/biliary obstruction would recommend IR consult for PTC drain per GI -TPN -start cyclic tube feedings -ST evaluation -PPI -BR to start once taking p.o. -24-hour +390 -Acute hepatitis panel negative -Trend LFTs -Abd US shows findings similar to hepatomegaly and steatosis without significant abnormalities in the right quadrant : Hypophosphatemia -Strict intake and output -Purewick in place -Daily weights -Renally dose meds, avoid nephrotoxins -Replace Phosphate Endo: Hyperglycemia, s/p hypoglycemia -Hypoglycemia protocol -Avoid hypoglycemia -SSI every 6 hours -Lantus, titrate as needed ID: Septic shock, Lactic acidosis (improving) -Blood cultures x2 no growth to date -Patient has leukocytosis, hypotension -s/p IV meropenem -Monitor WBC and fever curve -ID consulted, appreciated recommendation -COVID PCR (-) Heme: Thrombocytopenia, Elevated INR -Trend CBC -Transfuse for hemoglobin less than 7 -SCD to bilateral lower extremities while in bed -Lovenox subcu -Monitor platelets Oncology: h/o pancreatic head cancer -F/U with outpatient oncologist -Currently on radiation -Not a surgical candidate per GI -Right chest post not accessed The high probability of a clinically significant, sudden or life threatening deterioration of the [resp, GI] system(s) required my full and direct attention, intervention and personal management. The aggregate critical care time was [60] minutes. This time is in addition to time spent performing reported procedures but includes the following: [x] Data Review and interpretation [x] Patient assessment and monitoring of vital signs [x] Documentation [x] Medication orders and management Disposition Plan: imcu Total Time Spent with Patient (Minutes): 60 History Interval history: This is a 51-year-old female with COPD, pancreatic cancer and radiation, s/p pancreatic stent placement, pulmonary fibrosis, hypertension and chronic respiratory failure on 2 L oxygen via nasal cannula who presented to emergency department on 05/11 with complaints of right upper quadrant pain which started approximately at 0200 with nausea and vomiting. Work-up in the emergency department included a CTA chest which showed no pulmonary embolism, mild fluid- filled esophagus and distended stomach with bilateral interstitial opacity in the chest, and CT abdomen/pelvis with contrast which showed persistent pancreatic carcinoma with indwelling metallic stent which is suspected to be oc cluded. Lab work revealed leukocytosis, transaminitis and lactic acidosis. Patient became hypotensive in the emergency department and required 3 L of IV fluid and was eventually started on vasopressors after placement of femoral central line. Patient was started on empiric antibiotics. Admitted to the hospitalist service with consults to GI and CCM for transaminitis, possible sepsis, and lactic acidosis. 05/12: Patient remains on high-dose Levophed and vasopressin. Given 1 L LR bolus. GI would like an MRCP to be conducted which has been ordered. Patient cleared for sips of water. Added Tessalon due to severe cough. Potassium repleted. Covid PCR negative. 05/13: Remains on Levophed and vasopressin has been off since yesterday evening. Started on stress dose steroids. MRCP pending. Hypokalemia, hypomagnesemia and hypophosphatemia repleted. Liver enzymes trending down. Started on D5 normal saline yesterday. 05/14: Patient with worsen respiratory status this am, tachypneic with increased O2 requirement. On full support on the Bipap this am with worsening diffuse bilateral opacities on CXR, s/p X1 dose of IV lasix overnight. Patient remains afebrile with no leukocytosis. Will continue IV Lasix X3 doses, f/u CXR in the am. D/W CCM due to patient worsening respiratory status hold on MRCP for today. Patient is off Levophed this am, leave pressors on standby might need to be put back on low dose pressors with IV diuretic. Patient also noted with Rt. fem CVC which was inserted in the ED, most likely due to be change, unsuccessfult PICC by IVT today and patient is refusing Port access at this time. 05/15: Patient remains on continuous Bipap overnight, desat when bipap is removed for mouth care. Plan to wean Fio2 as tolerated for SPO2 goal above 90%. Febrile overnight, TMAX 101.4, on IV abx zosyn, repeat blood culture ordered. Low K and phosph repleted, repeat labs in the am. 05/16: Patient back on full support on the Bipap, still not tolerating FiO2 wean, patient desat in the 80s. D/w CCM plan to continue continuous bipap for now, patient going on over 4 days with no nutrition plan to initiate TPN tomorrow. D10w gtt added for hypoglycemia. Patient platelet continue to steadily drop, given patient's history with continue AC for now, H&H is stable, no s/s of any active bleeding. Electrolytes repleted, will continue to trend CBC, BMP, mg, and phos. MRCP canceled, plan to reorder once patient's respiratory status is more stable. 05/17: Patient remains on continuous Bipap. Patient remains on low dose Levophed, plan to wean off pressors as tolerated for a MAP above 65. Clinimix initiated overnight, plan to start TPN tonight. Hyperglycemic overnight, SSI was initiated. Low phos repleted, repeat lab in the am. 05/18: Down to 60% FIo2 on the Bipap, SPO2 above 97%. Off pressros this am, TPN is running. Patient is now hyperglycemic, SSI adjusted. Consider basal dose, lantus if hyperglycemia persist. This am labs noted, hyperkalemia and really hig h glucose noted totally different from normal trend, orders placed for redraw. 05/19: Overnight events noted. Started on PRN haldol for agitation. Patient placed on heated high Flow at 100%, 40L SPO2 at 100%. Continue to wean Fio2 as tolerated for SPO2 for SPO2 above 92%. Continue TPN for now. Patient still hyperglycemic basal dose lantus added Qhs. 05/20: Patient is tolerating HHFL NC, SPO2 above 95%. Continue HHFL NC during and Bipap at night. Still on TPN for nutrition, hyperglycemia persists- basal insulin increased. Low K and phosp was repleted, repeat lab in the am. 05/21: Patient unable to tolerate OptiFlow for more than couple hours and was placed back on BiPAP due to desaturation. Patient remains on TPN for nutrition which was held today due to hyperkalemia. P.m. BMP ordered but not collected. Patient refused to have port accessed and PICC line ordered. Down grading to [facility] status 05/21 abdominal ultrasound shows findings of emergency megaly and steatosis without other significant abnormality in the right upper quadrant. ST eval ordered and Ntr consult for cyclic TF. midline ordered 05/23/ Patient with acute on chronic resp failure, COPD, pancreatic cancer. She has been transferred to [facility]. She is on BIPAP Hypomag. Replace and recheck in am History Interval history: Patient feels better Transferred to [facility] Hospitalist Physical - Physical exam Narrative exam: General appearance: Present: no acute distress, obese - EENT Eyes: Present: PERRL, EOM intact ENT: hearing intact, clear oral mucosa, dentition normal - Neck Neck: Present: normal ROM - Respiratory Respiratory effort: normal Respiratory: bilateral: diminished - Cardiovascular Rhythm: regular Heart Sounds: Present: S1 & S2. Absent: systolic murmur, diastolic murmur - Extremities Extremities: no ischemia, pulses intact, pulses symmetrical, No edema, normal temperature, normal color Peripheral Pulses: within normal limits - Abdominal General gastrointestinal: soft, non-tender, non-distended, normal bowel sounds - Integumentary Integumentary: Present: warm, dry - Psychiatric Psychiatric: appropriate mood/affect, cooperative - Neurologic Neurologic: CNII-XII intact, moves all extremities - Allied Health Allied hea - Constitutional Vitals: Temp Pulse Resp BP Pulse Ox 98.1 F 68 20 116/63 97 05/23/21 08:00 05/23/21 06:01 05/23/21 06:01 05/23/21 05:09 05/23/21 06:01 General appearance: Present: no acute distress, obese Results - Labs CBC & Chem 7: 05/21/21 04:00 05/23/21 10:15 Labs: Laboratory Last Values WBC 9.9 K/mm3 (4.5-11.0) 05/21/21 04:00 RBC 3.28 M/mm3 (3.65-5.03) L 05/21/21 04:00 Hgb 10.3 gm/dl (10.1-14.3) 05/21/21 04:00 Hct 31.7 % (30.3-42.9) 05/21/21 04:00 MCV 97 fl (79-97) 05/21/21 04:00 MCH 32 pg (28-32) 05/21/21 04:00 MCHC 33 % (30-34) 05/21/21 04:00 RDW 18.7 % (13.2-15.2) H 05/21/21 04:00 Plt Count 125 K/mm3 (140-440) L 05/21/21 04:00 Lymph % (Auto) 7.4 % (13.4-35.0) L 05/15/21 04:45 [place] % (Auto) 6.7 % (0.0-7.3) 05/15/21 04:45 Eos % (Auto) 4.0 % (0.0-4.3) 05/15/21 04:45 Baso % (Auto) 0.7 % (0.0-1.8) 05/15/21 04:45 Lymph # (Auto) 0.6 K/mm3 (1.2-5.4) L 05/15/21 04:45 [place]uming # (Auto) 0.6 K/mm3 (0.0-0.8) 05/15/21 04:45 Eos # (Auto) 0.3 K/mm3 (0.0-0.4) 05/15/21 04:45 Baso # (Auto) 0.1 K/mm3 (0.0-0.1) 05/15/21 04:45 Add Manual Diff Complete 05/12/21 04:08 Total Counted 200 05/12/21 04:08 Seg Neutrophils % 81.2 % (40.0-70.0) H 05/15/21 04:45 Seg Neuts % (Manual) 85.5 % (40.0-70.0) H 05/12/21 04:08 Band Neutrophils % 8.5 % 05/12/21 04:08 Lymphocytes % (Manual) 2.0 % (13.4-35.0) L 05/12/21 04:08 Monocytes % (Manual) 3.0 % (0.0-7.3) 05/12/21 04:08 Eosinophils % (Manual) 1.0 % (0.0-4.3) 05/12/21 04:08 Nucleated RBC % Not Reportable 05/12/21 04:08 Seg Neutrophils # 6.7 K/mm3 (1.8-7.7) 05/15/21 04:45 Seg Neutrophils # Man 19.5 K/mm3 (1.8-7.7) H 05/12/21 04:08 Band Neutrophils # 1.9 K/mm3 05/12/21 04:08 Lymphocytes # (Manual) 0.5 K/mm3 (1.2-5.4) L 05/12/21 04:08 Abs React Lymphs (Man) 0.0 K/mm3 05/12/21 04:08 Monocytes # (Manual) 0.7 K/mm3 (0.0-0.8) 05/12/21 04:08 Eosinophils # (Manual) 0.2 K/mm3 (0.0-0.4) 05/12/21 04:08 Basophils # (Manual) 0.0 K/mm3 (0.0-0.1) 05/12/21 04:08 Metamyelocytes # 0.0 K/mm3 05/12/21 04:08 Myelocytes # 0.0 K/mm3 05/12/21 04:08 Promyelocytes # 0.0 K/mm3 05/12/21 04:08 Blast Cells # 0.0 K/mm3 05/12/21 04:08 WBC Morphology Not Reportable 05/12/21 04:08 Hypersegmented Neuts Not Reportable 05/12/21 04:08 Hyposegmented Neuts Not Reportable 05/12/21 04:08 Hypogranular Neuts Not Reportable 05/12/21 04:08 Smudge Cells Not Reportable 05/12/21 04:08 Toxic Granulation Not Reportable 05/12/21 04:08 Toxic Vacuolation Not Reportable 05/12/21 04:08 Dohle Bodies Not Reportable 05/12/21 04:08 Pelger-Huet Anomaly Not Reportable 05/12/21 04:08 Elizabeth Rods Not Reportable 05/12/21 04:08 Platelet Estimate Consistent w auto 05/12/21 04:08 Clumped Platelets Not Reportable 05/12/21 04:08 Plt Clumps, EDTA Not Reportable 05/12/21 04:08 Large Platelets Not Reportable 05/12/21 04:08 Giant Platelets Not Reportable 05/12/21 04:08 Platelet Satelliting Not Reportable 05/12/21 04:08 Plt Morphology Comment Not Reportable 05/12/21 04:08 RBC Morphology Not Reportable 05/12/21 04:08 Dimorphic RBCs Not Reportable 05/12/21 04:08 Polychromasia Not Reportable 05/12/21 04:08 Hypochromasia Not Reportable 05/12/21 04:08 Poikilocytosis Not Reportable 05/12/21 04:08 Anisocytosis 1+ 05/12/21 04:08 Microcytosis Not Reportable 05/12/21 04:08 Macrocytosis Not Reportable 05/12/21 04:08 Spherocytes Not Reportable 05/12/21 04:08 Pappenheimer Bodies Not Reportable 05/12/21 04:08 Sickle Cells Not Reportable 05/12/21 04:08 Target Cells Not Reportable 05/12/21 04:08 Tear Drop Cells Not Reportable 05/12/21 04:08 Ovalocytes Not Reportable 05/12/21 04:08 Helmet Cells Not Reportable 05/12/21 04:08 [place] Bodies Not Reportable 05/12/21 04:08 [place] Rings Not Reportable 05/12/21 04:08 Marcin Cells Not Reportable 05/12/21 04:08 Bite Cells Not Reportable 05/12/21 04:08 Crenated Cell Not Reportable 05/12/21 04:08 Elliptocytes Not Reportable 05/12/21 04:08 Acanthocytes (Spur) Not Reportable 05/12/21 04:08 Rouleaux Not Reportable 05/12/21 04:08 Hemoglobin C Crystals Not Reportable 05/12/21 04:08 Schistocytes Not Reportable 05/12/21 04:08 Malaria parasites Not Reportable 05/12/21 04:08 Tahir Bodies Not Reportable 05/12/21 04:08 Hem Pathologist Commnt No 05/12/21 04:08 PT 19.5 Sec. (12.2-14.9) H 05/22/21 04:30 INR 1.49 (0.87-1.13) H 05/22/21 04:30 ABG pH 7.482 pH Units (7.350-7.450) H 05/19/21 14:14 ABG pCO2 42.9 mm Hg 05/19/21 14:14 ABG pO2 111.7 mm Hg (80.0-90.0) H 05/19/21 14:14 ABG HCO3 31.4 mmol/L (20.0-26.0) H 05/19/21 14:14 ABG O2 Saturation 98.2 % (95.0-99.0) 05/19/21 14:14 ABG O2 Content 15.2 (0.0-44) 05/19/21 14:14 ABG Base Excess 7.2 mmol/L (-2.0-3.0) H 05/19/21 14:14 ABG Hemoglobin 11.1 gm/dl (12.0-16.0) L 05/19/21 14:14 ABG Carboxyhemoglobin 1.1 % (0.0-5.0) 05/19/21 14:14 ABG Methemoglobin 0.6 % (0.0-1.5) 05/19/21 14:14 Oxyhemoglobin 96.4 % (95.0-99.0) 05/19/21 14:14 FiO2 100 % 05/19/21 14:14 Sodium 134 mmol/L (137-145) L 05/22/21 04:30 Potassium 4.3 mmol/L (3.6-5.0) 05/22/21 04:30 Chloride 103.2 mmol/L (98-107) 05/22/21 04:30 Carbon Dioxide 23 mmol/L (22-30) 05/22/21 04:30 Anion Gap 12 mmol/L 05/22/21 04:30 BUN 19 mg/dL (7-17) H 05/22/21 04:30 Creatinine 0.2 mg/dL (0.6-1.2) L 05/22/21 04:30 Estimated GFR > 60 ml/min 05/22/21 04:30 BUN/Creatinine Ratio 95 % 05/22/21 04:30 Glucose 208 mg/dL (65-100) H 05/22/21 04:30 POC Glucose 175 mg/dL (70-105) H 05/23/21 05:09 Hemoglobin A1c 5.2 % (4-6) 05/12/21 04:08 Lactic Acid 3.30 mmol/L (0.7-2.0) H* 05/12/21 Unknown Calcium 7.2 mg/dL (8.4-10.2) L 05/22/21 04:30 Phosphorus 2.40 mg/dL (2.5-4.5) L D 05/22/21 04:30 Magnesium 1.80 mg/dL (1.7-2.3) 05/22/21 04:30 Total Bilirubin 2.20 mg/dL (0.1-1.2) H 05/22/21 04:30 Direct Bilirubin 2.3 mg/dL (0-0.2) H 05/21/21 17:57 Indirect Bilirubin 0.7 mg/dL 05/21/21 17:57 AST 350 units/L (5-40) H 05/22/21 04:30 ALT 496 units/L (7-56) H 05/22/21 04:30 Alkaline Phosphatase 167 units/L (35-129) H 05/22/21 04:30 Total Protein 4.8 g/dL (6.3-8.2) L 05/22/21 04:30 Albumin 1.7 g/dL (3.9-5) L 05/22/21 04:30 Albumin/Globulin Ratio 0.5 % 05/22/21 04:30 Lipase 3 units/L (13-60) L 05/11/21 05:43 Urine Color Deisi (Yellow) 05/11/21 11:18 Urine Turbidity Clear (Clear) 05/11/21 11:18 Urine pH 6.0 (5.0-7.0) 05/11/21 11:18 Ur Specific [place] 1.035 (1.003-1.030) H 05/11/21 11:18 Urine Protein 100 mg/dl mg/dL (Negative) 05/11/21 11:18 Urine Glucose (UA) Neg mg/dL (Negative) 05/11/21 11:18 Urine Ketones Neg mg/dL (Negative) 05/11/21 11:18 Urine Blood Neg (Negative) 05/11/21 11:18 Urine Nitrite Neg (Negative) 05/11/21 11:18 Urine Bilirubin Neg (Negative) 05/11/21 11:18 Urine Urobilinogen < 2.0 mg/dL (<2.0) 05/11/21 11:18 Ur Leukocyte Esterase Neg (Negative) 05/11/21 11:18 Urine WBC (Auto) 2.0 /HPF (0.0-6.0) 05/11/21 11:18 Urine RBC (Auto) 1.0 /HPF (0.0-6.0) 05/11/21 11:18 Urine Mucus Few /HPF 05/11/21 11:18 Vancomycin Trough 25.3 ug/mL (5.0-20.0) H 05/14/21 15:20 Coronavirus (PCR) Negative (Negative) 05/12/21 10:16 Hepatitis A IgM Ab Non-reactive (NonReactive) 05/12/21 12:30 Hep Bs Antigen Nonreactive (Negative) 05/12/21 12:30 Hep B Core IgM Ab Non-reactive (NonReactive) 05/12/21 12:30 Hepatitis C Antibody Non-reactive (NonReactive) 05/12/21 12:30 Rivas/IV: Voiding Method External Female Catheter Active Medications - Current Medications Current Medications: Generic Name Dose Route Start Last Admin Trade Name Freq PRN Reason Stop Dose Admin Acetaminophen 650 mg 05/11/21 21:40 05/14/21 20:06 Acetaminophen 325 Mg Tab PO 650 mg Q4H PRN Administration Pain MILD(1-3)/Fever >100.5/WOODS Lipase/Protease/Amylase 1 each 05/22/21 16:30 Lipase 10,500/Protease 25,000/Amylase 43,750 (Units) Dr Baker FEEDTUBE PRN PRN For Clogged Feeding Tube Arformoterol Tartrate 15 mcg 05/12/21 08:00 05/22/21 20:39 Arformoterol 15 Mcg/2 Ml Nebu IH 15 mcg Q12HRT ABRAHAN Administration Benzonatate 100 mg 05/12/21 15:53 05/21/21 11:24 Benzonatate 100 Mg Cap PO 100 mg Q8HR PRN Administration Cough Budesonide 0.5 mg 05/12/21 08:00 05/22/21 20:39 Budesonide 0.5 Mg/2 Ml Nebu IH 0.5 mg Q12HRT ABRAHAN Administration Dexamethasone 6 mg 05/16/21 13:00 05/22/21 09:12 Dexamethasone 4 Mg/Ml Vial IV 6 mg Q24HR ABRAHAN Administration Dextrose 50 ml 05/12/21 11:57 05/16/21 08:30 Dextrose 50% In Water (25gm) 50 Ml Syringe IV 20 ml Q30MIN PRN Administration Hypoglycemia Protocol Enoxaparin Sodium 40 mg 05/14/21 22:00 05/22/21 21:01 Enoxaparin 40 Mg/0.4 Ml Inj SUB-Q 40 mg QDAY@2200 [facility] Administration Protocol Haloperidol Lactate 5 mg 05/19/21 15:00 05/21/21 23:48 Haloperidol Lactate 5 Mg/1 Ml Inj IV 5 mg Q8H PRN Administration Agitation Amino Acids/Electrolytes/Dextrose 1,999.92 mls @ 83.33 mls/hr 05/22/21 20:00 05/22/21 20:50 Tpn Adult IV 05/23/21 19:59 83.33 mls/hr DAILY@2000 [facility] Administration Protocol Insulin Glargine 20 units 05/22/21 22:00 05/22/21 21:01 Insulin Glargine 100 Units/Ml SUB-Q 20 units QHS [facility] Administration Insulin Human Lispro 0 unit 05/17/21 12:00 05/23/21 05:31 Insulin Lispro 100 Unit/Ml SUB-Q 3 unit Q6HR ABRAHAN Administration Protocol Metoclopramide HCl 10 mg 05/11/21 21:40 Metoclopramide 10 Mg/2 Ml Inj IV Q6H PRN Nausea And Vomiting Morphine Sulfate 2 mg 05/11/21 21:40 05/23/21 05:27 Morphine 2 Mg/1 Ml Inj IV 2 mg Q4H PRN Administration Pain, Moderate (4-6) Ondansetron HCl 4 mg 05/11/21 21:40 05/15/21 09:57 Ondansetron 4 Mg/2 Ml Inj IV 4 mg Q8H PRN Administration Nausea And Vomiting Pantoprazole Sodium 40 mg 05/15/21 10:00 05/22/21 09:12 Pantoprazole 40 Mg Inj IV 40 mg QDAY ABRAHAN Administration Simple Syrup 15 ml 05/22/21 16:30 Simple Syrup 15 Ml FEEDTUBE PRN PRN Hypoglycemia Simple Syrup 30 ml 05/22/21 16:30 Simple Syrup 15 Ml FEEDTUBE PRN PRN Hypoglycemia Sodium Bicarbonate 325 mg 05/22/21 16:30 Sodium Bicarbonate 325 Mg Tab FEEDTUBE PRN PRN For Clogged Feeding Tube Sodium Chloride 10 ml 05/11/21 22:00 05/22/21 21:00 Sodium Chloride 0.9% 10 Ml Flush Syringe IV 10 ml BID ABRAHAN Administration Sodium Chloride 10 ml 05/11/21 21:40 05/15/21 00:35 Sodium Chloride 0.9% 10 Ml Flush Syringe IV 10 ml PRN PRN Administration LINE FLUSH Nutrition/Malnutrition Assess - Dietary Evaluation Nutrition/Malnutrition Findings: Nutrition Notes Start: 05/13/21 09:47 Freq: Status: Active Protocol: Document 05/22/21 15:45 ZENY (Rec: 05/22/21 16:09 ZENY [id number]) Nutrition Notes Initial or Follow up Brief Note Current Diet NPO. Subjective/Other Information RD consult for request on write/manage TF. TF ordered. Nutrition Intervention Nutrition Support: Start Vital AF 1.2 Po @ 42 ml /hr. Flush 130 ml water Q 4 hr. Kcal 1,220 Protein (gm) 76 Carbohydrates (gm) 112 Fat (gm) 55 Fluid (mL) 825 Fiber (gm) 5 % RDI: 76% Kcal; 76% AA. Goal #1 Provide at least 75% of energy /protein needs through Enteral Nutrition during LOS. Follow-Up By: 05/25/21 Additional Comments Continue monitoring TF tolerance.
[2021-05-23] MEDS: PANTOPRAZOLE 40 MG INJ IV SCH (09:24)
[2021-05-23] MEDS: dexAMETHasone 4 MG/ML VIAL IV SCH (09:24)
[2021-05-23 11:02] LABS: BUN/Creatinine Ratio 85; Bilirubin,Direct 1.6 mg/dL (0-0.2); Blood Urea Nitrogen 17 mg/dL (7-17); Calcium 7.4 mg/dL (8.4-10.2); Hemolysis Index 21
[2021-05-23 11:07] LABS: INR 1.24 (0.87-1.13)
--- NOTE | 2021-05-23 12:13 | Gastroenterology Progress Note ---
Assessment and Plan Liver enzymes significantly improved today compared to yesterday, acute hepatitis panel negative, more likely mild ischemic hepatitis and TPN related, continue to trend but expect continued gradual improvement of the liver enzymes Regarding the right upper quadrant pain, Repeat abdominal ultrasound negative for radiology therefore adding on dicyclomine in case functional related, and patient already on PPI in case gastritis - Patient Problems (1) Elevated bilirubin Current Visit: Yes Status: Acute (2) Elevated liver enzymes Current Visit: Yes Status: Acute (3) Sepsis Current Visit: Yes Status: Acute (4) Transaminitis Current Visit: Yes Status: Acute (5) Pancreatic cancer Current Visit: Yes Status: Chronic Qualifiers: Pancreatic malignancy location: body of pancreas Qualified Code(s): C25.1 - Malignant neoplasm of body of pancreas (6) Interstitial lung disease Current Visit: No Status: Acute Subjective Date of service: 05/23/21 Principal diagnosis: Septic shock; Pulm fibrosis; Hypoxemic resp failure; COVID- 19 infxn Interval history: Today patient is reporting right upper quadrant abdominal pain is still present, constant, duration days, moderate, stable LFT trending down today Objective - Constitutional Vitals: Temp Pulse Resp BP Pulse Ox 98.1 F 70 19 101/59 94 05/23/21 08:00 05/23/21 11:30 05/23/21 11:30 05/23/21 11:30 05/23/21 11:30 General appearance: no acute distress, other - EENT Eyes: EOM intact ENT: hearing intact - Respiratory Respiratory effort: other (on positive airway pressure mask) - Gastrointestinal General gastrointestinal: Present: soft, other (ruq ttp) - Labs CBC & Chem 7: 05/21/21 04:00 05/23/21 10:15 Labs: Laboratory Results - last 24 hr 05/22/21 05/22/21 05/23/21 17:16 23:07 05:09 PT INR Sodium Potassium Chloride Carbon Dioxide Anion Gap BUN Creatinine Estimated GFR BUN/Creatinine Ratio Glucose POC Glucose 244 H 226 H 175 H Calcium Phosphorus Magnesium Total Bilirubin Direct Bilirubin Indirect Bilirubin AST ALT Alkaline Phosphatase Total Protein Albumin Albumin/Globulin Ratio Triglycerides 05/23/21 05/23/21 05/23/21 10:15 10:15 10:15 PT 16.9 H INR 1.24 H Sodium 131 L Potassium 3.7 Chloride 97.5 L Carbon Dioxide 24 Anion Gap 13 BUN 17 Creatinine < 0.2 L Estimated GFR > 60 BUN/Creatinine Ratio 85 Glucose 248 H POC Glucose Calcium 7.4 L Phosphorus 3.20 D Magnesium 1.60 L Total Bilirubin 2.30 H Direct Bilirubin 1.6 H Indirect Bilirubin 0.7 AST 161 H ALT 396 H Alkaline Phosphatase 186 H Total Protein 4.7 L Albumin 2.0 L Albumin/Globulin Ratio 0.7 Triglycerides 90
[2021-05-23] MEDS ORDERED: MAGNESIUM SULFATE 3 GM in SODIUM CHLORIDE 0.9% 100 ML IV ONE (14:00)
[2021-05-23] MEDS: DICYCLOMINE 10 MG CAP PO SCH ×3 (15:05→22:03)
--- NOTE | 2021-05-23 18:30 | Progress Note ---
Assessment and Plan 51-year-old female with history of COPD, Hypertension and pancreatic cancer comes in for right upper quadrant pain since 2 AM. Pain is about 10 on a scale of 1-10. Also associated with nausea and vomiting. Patient is on radiation therapy for pancreatic cancer. Patient also has a history of pulmonary fibrosis and is on 2 L nasal cannula oxygen. Vomited about 3-4 times. No fever or chills. No aggravating or relieving factors. No exposure to coronavirus. Patient has history of smoking. Not smoking. Denies alcohol or drug abuse. Patient awake and anxious. Mild increase in work of breathing. Patient is on vapotherm. FIO2 100%, O2 saturation running 90%. BIPAP standby in the room. Patient afebrile. No leukocytosis. Blood pressure 117/71, pulse 101, respirations 35. Chest xray done 05/13/21 reported No acute change since 03/19/2019. Interstitial lung disease or early pulmonary fibrosis is suspected and unchanged. Patient has angio CT of chest done on 05/11/[address] evidence for pulmonary embolism. Bilateral interstitial opacity remains with overall mild worsening Mild fluid-filled esophagus. The stomach is also distended with fluid. Patient is on Budesonide/Brovanna aerosol treatments, Decadron, S/C Lovenox, Protonix, I spent critical care time of 35 minutes, obtaining history, review the chart, Examine the patient, review labs and chest xray, Ct scan of chest, talking to the nursing staff and work up plan of treatment. - Patient Problems (1) Hypotension Current Visit: Yes Status: Acute Plan to address problem: Patients blood pressure improved. Patient is off Norepinephrine and vasopressin. (2) Sepsis Current Visit: Yes Status: Acute Plan to address problem: Patient was on cefepime and vancomycin. (3) Pancreatic cancer Current Visit: Yes Status: Chronic Qualifiers: Pancreatic malignancy location: body of pancreas Qualified Code(s): C25.1 - Malignant neoplasm of body of pancreas Plan to address problem: Management as per primary care and oncology. (4) Asthma exacerbation Current Visit: No Status: Acute Plan to address problem: Patient is on Brovanna/Budesonide aerosol treatments. (5) Bilateral pneumonia Current Visit: No Status: Acute Plan to address problem: Patient was on Cefepime and vancomycin. (6) Interstitial lung disease Current Visit: No Status: Acute Plan to address problem: Recommend TED, rheumatoid factor, CANCA, BRIGHT levels. PFTs as out patient. (7) HTN (hypertension) Current Visit: No Status: Chronic Qualifiers: Hypertension type: essential hypertension Plan to address problem: Management as per primary care. Subjective Date of service: 05/23/21 Principal diagnosis: Septic shock; Pulm fibrosis; Hypoxemic resp failure; COVID- 19 infxn Interval history: 51-year-old female with history of COPD, Hypertension and pancreatic cancer comes in for right upper quadrant pain since 2 AM. Pain is about 10 on a scale of 1-10. Also associated with nausea and vomiting. Patient is on radiation therapy for pancreatic cancer. Patient also has a history of pulmonary fibrosis and is on 2 L nasal cannula oxygen. Vomited about 3-4 times. No fever or chills. No aggravating or relieving factors. No exposure to coronavirus. Patient has history of smoking. Not smoking. Denies alcohol or drug abuse. Patient awake and anxious. Mild increase in work of breathing. Patient is on vapotherm. FIO2 100%, O2 saturation running 90%. BIPAP standby in the room. Patient afebrile. No leukocytosis. Blood pressure 117/71, pulse 101, respirations 35. Chest xray done 05/13/21 reported No acute change since 03/19/2019. Interstitial lung disease or early pulmonary fibrosis is suspected and unchanged. Patient has angio CT of chest done on 05/11/[address] evidence for pulmonary embolism. Bilateral interstitial opacity remains with overall mild worsening Mild fluid-filled esophagus. The stomach is also distended with fluid. Patient is on Budesonide/Brovanna aerosol treatments, Decadron, S/C Lovenox, Protonix, Objective Vital Signs - 12hr 05/23/21 05/23/21 05/23/21 06:30 07:00 07:30 Temperature Pulse Rate 77 84 69 Pulse Rate [ Bilateral Throughout] Respiratory 26 H 28 H 19 Rate Respiratory Rate [Bilateral Throughout] Blood Pressure O2 Sat by Pulse 97 97 98 Oximetry 05/23/21 05/23/21 05/23/21 08:00 08:30 08:53 Temperature 98.1 F Pulse Rate 90 78 Pulse Rate [ 76 Bilateral Throughout] Respiratory 25 H 28 H Rate Respiratory 26 H Rate [Bilateral Throughout] Blood Pressure 121/74 O2 Sat by Pulse 95 95 Oximetry 05/23/21 05/23/21 05/23/21 09:00 09:30 10:00 Temperature Pulse Rate 78 71 82 Pulse Rate [ Bilateral Throughout] Respiratory 26 H 23 13 Rate Respiratory Rate [Bilateral Throughout] Blood Pressure 104/53 104/53 111/66 O2 Sat by Pulse 95 96 90 Oximetry 05/23/21 05/23/21 05/23/21 10:30 11:00 11:30 Temperature Pulse Rate 67 67 70 Pulse Rate [ Bilateral Throughout] Respiratory 24 22 19 Rate Respiratory Rate [Bilateral Throughout] Blood Pressure 111/66 101/59 101/59 O2 Sat by Pulse 94 94 94 Oximetry 05/23/21 05/23/21 05/23/21 12:00 12:30 13:00 Temperature 98.0 F Pulse Rate 69 72 99 H Pulse Rate [ Bilateral Throughout] Respiratory 19 22 32 H Rate Respiratory Rate [Bilateral Throughout] Blood Pressure 113/60 113/60 121/66 O2 Sat by Pulse 96 94 82 L Oximetry 05/23/21 05/23/21 05/23/21 13:30 14:00 14:30 Temperature Pulse Rate 86 95 H 91 H Pulse Rate [ Bilateral Throughout] Respiratory 27 H 31 H 28 H Rate Respiratory Rate [Bilateral Throughout] Blood Pressure 121/66 114/63 114/63 O2 Sat by Pulse 93 90 96 Oximetry 05/23/21 05/23/21 05/23/21 15:00 15:30 16:00 Temperature 98.0 F Pulse Rate 104 H 88 90 Pulse Rate [ Bilateral Throughout] Respiratory 30 H 32 H 30 H Rate Respiratory Rate [Bilateral Throughout] Blood Pressure 114/63 123/62 119/69 O2 Sat by Pulse 86 92 95 Oximetry 05/23/21 05/23/21 16:30 17:00 Temperature Pulse Rate 93 H 71 Pulse Rate [ Bilateral Throughout] Respiratory 20 25 H Rate Respiratory Rate [Bilateral Throughout] Blood Pressure 119/69 120/70 O2 Sat by Pulse 87 96 Oximetry Constitutional: alert, appears uncomfortable, other (mildly increased respiratory effort at rest ) Eyes: non-icteric ENT: oropharynx moist, other (BIPAP FFM) Neck: supple, no lymphadenopathy, no JVD Effort: mildly labored Ascultation: Bilateral: diminished breath sounds, rales (posterior bases) Percussion: Bilateral: not dull Cardiovascular: regular rate and rhythm, other (S1,S2) Gastrointestinal: normoactive bowel sounds, hypoactive bowel sounds, soft, non- distended (protuberant) Integumentary: normal Extremities: no cyanosis, no edema, pulses normal, other (right femoral CVL) Neurologic: normal mental status, non-focal exam, pupils equal and round, other (somnolent) Psychiatric: anxious, other (somnolenet) CBC and BMP: 05/21/21 04:00 05/23/21 10:15 ABG, PT/INR, D-dimer: ABG ABG pH 7.482 pH Units (7.350-7.450) H 05/19/21 14:14 ABG pCO2 42.9 mm Hg 05/19/21 14:14 ABG pO2 111.7 mm Hg (80.0-90.0) H 05/19/21 14:14 ABG O2 Saturation 98.2 % (95.0-99.0) 05/19/21 14:14 PT/INR, D-dimer PT 16.9 Sec. (12.2-14.9) H 05/23/21 10:15 INR 1.24 (0.87-1.13) H 05/23/21 10:15 Abnormal lab findings: Abnormal Labs 05/11/21 05/11/21 05/11/21 05:43 05:43 05:43 WBC RBC Hgb MCV 98 H RDW 17.7 H Plt Count Lymph % (Auto) 10.8 L Lymph # (Auto) 0.6 L Seg Neutrophils % 84.1 H Seg Neuts % (Manual) Lymphocytes % (Manual) Seg Neutrophils # Man Lymphocytes # (Manual) PT 16.0 H INR 1.16 H ABG pH ABG pO2 ABG HCO3 ABG Base Excess ABG Hemoglobin Oxyhemoglobin Sodium Potassium Chloride Carbon Dioxide 21 L BUN 4 L Creatinine 0.4 L Glucose POC Glucose Lactic Acid Calcium 8.3 L Phosphorus Magnesium Total Bilirubin 2.10 H Direct Bilirubin 1.4 H AST 335 H ALT 57 H Alkaline Phosphatase 339 H Total Protein Albumin 2.4 L Lipase 3 L Ur Specific Howard Vancomycin Trough 05/11/21 05/11/21 05/12/21 11:18 12:28 04:08 WBC RBC Hgb MCV RDW Plt Count Lymph % (Auto) Lymph # (Auto) Seg Neutrophils % Seg Neuts % (Manual) Lymphocytes % (Manual) Seg Neutrophils # Man Lymphocytes # (Manual) PT INR ABG pH ABG pO2 ABG HCO3 ABG Base Excess ABG Hemoglobin Oxyhemoglobin Sodium Potassium Chloride Carbon Dioxide BUN Creatinine Glucose POC Glucose Lactic Acid 4.20 H* 4.50 H* Calcium Phosphorus Magnesium Total Bilirubin Direct Bilirubin AST ALT Alkaline Phosphatase Total Protein Albumin Lipase Ur Specific Howard 1.035 H Vancomycin Trough 05/12/21 05/12/21 05/12/21 04:08 04:08 09:47 WBC 22.8 H RBC 3.39 L Hgb MCV 98 H RDW 17.7 H Plt Count Lymph % (Auto) Lymph # (Auto) Seg Neutrophils % Seg Neuts % (Manual) 85.5 H Lymphocytes % (Manual) 2.0 L Seg Neutrophils # Man 19.5 H Lymphocytes # (Manual) 0.5 L PT INR ABG pH ABG pO2 ABG HCO3 ABG Base Excess ABG Hemoglobin Oxyhemoglobin Sodium Potassium 3.3 L Chloride 108.9 H Carbon Dioxide 17 L BUN 4 L Creatinine 0.5 L Glucose 106 H POC Glucose Lactic Acid 2.60 H* Calcium 6.4 L D Phosphorus Magnesium Total Bilirubin 2.10 H Direct Bilirubin AST 156 H ALT 61 H Alkaline Phosphatase 317 H Total Protein 5.4 L D Albumin 1.8 L Lipase Ur Specific Howard Vancomycin Trough 05/12/21 05/12/21 05/12/21 11:47 12:30 12:36 WBC RBC Hgb MCV RDW Plt Count Lymph % (Auto) Lymph # (Auto) Seg Neutrophils % Seg Neuts % (Manual) Lymphocytes % (Manual) Seg Neutrophils # Man Lymphocytes # (Manual) PT INR ABG pH ABG pO2 ABG HCO3 ABG Base Excess ABG Hemoglobin Oxyhemoglobin Sodium Potassium Chloride Carbon Dioxide BUN Creatinine Glucose POC Glucose 59 L 120 H Lactic Acid 2.50 H* Calcium Phosphorus Magnesium Total Bilirubin Direct Bilirubin AST ALT Alkaline Phosphatase Total Protein Albumin Lipase Ur Specific Howard Vancomycin Trough 05/12/21 05/12/21 05/13/21 23:45 Unknown 04:00 WBC 19.8 H RBC 3.52 L Hgb MCV 98 H RDW 18.5 H Plt Count Lymph % (Auto) Lymph # (Auto) Seg Neutrophils % Seg Neuts % (Manual) Lymphocytes % (Manual) Seg Neutrophils # Man Lymphocytes # (Manual) PT INR ABG pH ABG pO2 ABG HCO3 ABG Base Excess ABG Hemoglobin Oxyhemoglobin Sodium Potassium Chloride Carbon Dioxide BUN Creatinine Glucose POC Glucose 119 H Lactic Acid 3.30 H* Calcium Phosphorus Magnesium Total Bilirubin Direct Bilirubin AST ALT Alkaline Phosphatase Total Protein Albumin Lipase Ur Specific Howard Vancomycin Trough 05/13/21 05/13/21 05/13/21 04:00 05:42 12:19 WBC RBC Hgb MCV RDW Plt Count Lymph % (Auto) Lymph # (Auto) Seg Neutrophils % Seg Neuts % (Manual) Lymphocytes % (Manual) Seg Neutrophils # Man Lymphocytes # (Manual) PT INR ABG pH ABG pO2 ABG HCO3 ABG Base Excess ABG Hemoglobin Oxyhemoglobin Sodium Potassium 3.4 L Chloride 107.1 H Carbon Dioxide 19 L BUN 4 L Creatinine 0.4 L Glucose 157 H POC Glucose 143 H 110 H Lactic Acid Calcium 7.4 L D Phosphorus 1.60 L Magnesium 1.50 L Total Bilirubin 1.40 H Direct Bilirubin AST 95 H ALT Alkaline Phosphatase 328 H Total Protein 5.5 L Albumin 1.6 L Lipase Ur Specific Howard Vancomycin Trough 05/14/21 05/14/21 05/14/21 06:15 06:15 10:25 WBC 11.7 H RBC 3.41 L Hgb MCV 98 H RDW 18.6 H Plt Count Lymph % (Auto) Lymph # (Auto) Seg Neutrophils % Seg Neuts % (Manual) Lymphocytes % (Manual) Seg Neutrophils # Man Lymphocytes # (Manual) PT INR ABG pH ABG pO2 76.0 L ABG HCO3 27.2 H ABG Base Excess ABG Hemoglobin 11.5 L Oxyhemoglobin 94.4 L Sodium Potassium 3.2 L Chloride Carbon Dioxide BUN 6 L Creatinine 0.5 L Glucose 103 H POC Glucose Lactic Acid Calcium 7.3 L Phosphorus 1.70 L Magnesium Total Bilirubin Direct Bilirubin AST 66 H ALT Alkaline Phosphatase 295 H Total Protein 5.3 L Albumin 1.8 L Lipase Ur Specific Howard Vancomycin Trough 05/14/21 05/14/21 05/14/21 15:20 15:20 17:26 WBC RBC Hgb MCV RDW Plt Count Lymph % (Auto) Lymph # (Auto) Seg Neutrophils % Seg Neuts % (Manual) Lymphocytes % (Manual) Seg Neutrophils # Man Lymphocytes # (Manual) PT INR ABG pH ABG pO2 ABG HCO3 ABG Base Excess ABG Hemoglobin Oxyhemoglobin Sodium 146 H D Potassium Chloride 108.4 H Carbon Dioxide BUN 5 L Creatinine 0.5 L Glucose POC Glucose 63 L Lactic Acid Calcium 7.6 L Phosphorus Magnesium Total Bilirubin Direct Bilirubin AST ALT Alkaline Phosphatase Total Protein Albumin Lipase Ur Specific Howard Vancomycin Trough 25.3 H 05/14/21 05/15/21 05/15/21 21:27 00:03 00:29 WBC RBC Hgb MCV RDW Plt Count Lymph % (Auto) Lymph # (Auto) Seg Neutrophils % Seg Neuts % (Manual) Lymphocytes % (Manual) Seg Neutrophils # Man Lymphocytes # (Manual) PT INR ABG pH ABG pO2 ABG HCO3 ABG Base Excess ABG Hemoglobin Oxyhemoglobin Sodium Potassium Chloride Carbon Dioxide BUN Creatinine Glucose POC Glucose 52 L 54 L 129 H Lactic Acid Calcium Phosphorus Magnesium Total Bilirubin Direct Bilirubin AST ALT Alkaline Phosphatase Total Protein Albumin Lipase Ur Specific Howard Vancomycin Trough 05/15/21 05/15/21 05/15/21 04:45 04:45 11:58 WBC RBC 3.24 L Hgb MCV 98 H RDW 18.5 H Plt Count 122 L Lymph % (Auto) 7.4 L Lymph # (Auto) 0.6 L Seg Neutrophils % 81.2 H Seg Neuts % (Manual) Lymphocytes % (Manual) Seg Neutrophils # Man Lymphocytes # (Manual) PT INR ABG pH ABG pO2 ABG HCO3 ABG Base Excess ABG Hemoglobin Oxyhemoglobin Sodium 146 H Potassium 3.1 L Chloride 108.8 H Carbon Dioxide BUN 6 L Creatinine Glucose 121 H POC Glucose 68 L Lactic Acid Calcium 7.5 L Phosphorus 2.30 L D Magnesium Total Bilirubin 1.90 H Direct Bilirubin AST 55 H ALT Alkaline Phosphatase 231 H Total Protein 5.4 L Albumin 1.5 L Lipase Ur Specific Howard Vancomycin Trough 05/15/21 05/16/21 05/16/21 13:50 00:06 00:43 WBC RBC Hgb MCV RDW Plt Count Lymph % (Auto) Lymph # (Auto) Seg Neutrophils % Seg Neuts % (Manual) Lymphocytes % (Manual) Seg Neutrophils # Man Lymphocytes # (Manual) PT INR ABG pH ABG pO2 ABG HCO3 ABG Base Excess ABG Hemoglobin Oxyhemoglobin Sodium Potassium Chloride Carbon Dioxide BUN Creatinine Glucose POC Glucose 147 H 54 L 116 H Lactic Acid Calcium Phosphorus Magnesium Total Bilirubin Direct Bilirubin AST ALT Alkaline Phosphatase Total Protein Albumin Lipase Ur Specific Howard Vancomycin Trough 05/16/21 05/16/21 05/16/21 04:31 04:31 05:58 WBC RBC 3.12 L Hgb 9.8 L MCV 98 H RDW 18.2 H Plt Count 115 L Lymph % (Auto) Lymph # (Auto) Seg Neutrophils % Seg Neuts % (Manual) Lymphocytes % (Manual) Seg Neutrophils # Man Lymphocytes # (Manual) PT INR ABG pH ABG pO2 ABG HCO3 ABG Base Excess ABG Hemoglobin Oxyhemoglobin Sodium 146 H Potassium 3.2 L Chloride Carbon Dioxide BUN 5 L Creatinine 0.5 L Glucose POC Glucose 61 L Lactic Acid Calcium 7.2 L Phosphorus 2.30 L Magnesium Total Bilirubin Direct Bilirubin AST ALT Alkaline Phosphatase Total Protein Albumin Lipase Ur Specific Howard Vancomycin Trough 05/16/21 05/16/21 05/17/21 08:11 23:42 04:15 WBC RBC Hgb MCV RDW Plt Count Lymph % (Auto) Lymph # (Auto) Seg Neutrophils % Seg Neuts % (Manual) Lymphocytes % (Manual) Seg Neutrophils # Man Lymphocytes # (Manual) PT INR ABG pH ABG pO2 ABG HCO3 ABG Base Excess ABG Hemoglobin Oxyhemoglobin Sodium Potassium Chloride Carbon Dioxide BUN Creatinine Glucose POC Glucose 58 L 200 H Lactic Acid Calcium Phosphorus Magnesium Total Bilirubin 1.70 H Direct Bilirubin 1.5 H AST 43 H ALT Alkaline Phosphatase 196 H Total Protein 5.4 L Albumin 1.6 L Lipase Ur Specific Howard Vancomycin Trough 05/17/21 05/17/21 05/17/21 04:15 04:15 05:07 WBC RBC 3.26 L Hgb MCV 98 H RDW 18.9 H Plt Count 114 L Lymph % (Auto) Lymph # (Auto) Seg Neutrophils % Seg Neuts % (Manual) Lymphocytes % (Manual) Seg Neutrophils # Man Lymphocytes # (Manual) PT INR ABG pH ABG pO2 ABG HCO3 ABG Base Excess ABG Hemoglobin Oxyhemoglobin Sodium Potassium Chloride Carbon Dioxide 35 H BUN 5 L Creatinine Glucose 274 H POC Glucose 249 H Lactic Acid Calcium 7.7 L Phosphorus 1.50 L D Magnesium Total Bilirubin Direct Bilirubin AST ALT Alkaline Phosphatase Total Protein Albumin Lipase Ur Specific Howard Vancomycin Trough 05/17/21 05/17/21 05/17/21 11:56 16:29 23:37 WBC RBC Hgb MCV RDW Plt Count Lymph % (Auto) Lymph # (Auto) Seg Neutrophils % Seg Neuts % (Manual) Lymphocytes % (Manual) Seg Neutrophils # Man Lymphocytes # (Manual) PT INR ABG pH ABG pO2 ABG HCO3 ABG Base Excess ABG Hemoglobin Oxyhemoglobin Sodium Potassium Chloride Carbon Dioxide BUN Creatinine Glucose POC Glucose 176 H 219 H 150 H Lactic Acid Calcium Phosphorus Magnesium Total Bilirubin Direct Bilirubin AST ALT Alkaline Phosphatase Total Protein Albumin Lipase Ur Specific Howard Vancomycin Trough 05/18/21 05/18/21 05/18/21 04:00 05:22 09:00 WBC RBC 3.34 L Hgb MCV RDW 18.8 H Plt Count Lymph % (Auto) Lymph # (Auto) Seg Neutrophils % Seg Neuts % (Manual) Lymphocytes % (Manual) Seg Neutrophils # Man Lymphocytes # (Manual) PT INR ABG pH ABG pO2 ABG HCO3 ABG Base Excess ABG Hemoglobin Oxyhemoglobin Sodium Potassium 5.4 H D Chloride 97.5 L Carbon Dioxide 33 H BUN Creatinine 0.4 L Glucose 461 H POC Glucose 181 H Lactic Acid Calcium 7.2 L Phosphorus 5.00 H D Magnesium Total Bilirubin Direct Bilirubin AST ALT Alkaline Phosphatase Total Protein Albumin Lipase Ur Specific Howard Vancomycin Trough 05/18/21 05/18/21 05/18/21 11:16 12:50 16:29 WBC RBC Hgb MCV RDW Plt Count Lymph % (Auto) Lymph # (Auto) Seg Neutrophils % Seg Neuts % (Manual) Lymphocytes % (Manual) Seg Neutrophils # Man Lymphocytes # (Manual) PT INR ABG pH ABG pO2 ABG HCO3 ABG Base Excess ABG Hemoglobin Oxyhemoglobin Sodium Potassium 3.4 L D Chloride Carbon Dioxide 36 H BUN 19 H Creatinine 0.4 L Glucose 231 H POC Glucose 168 H 196 H Lactic Acid Calcium 7.5 L Phosphorus 1.80 L D Magnesium Total Bilirubin Direct Bilirubin AST ALT Alkaline Phosphatase Total Protein Albumin Lipase Ur Specific Howard Vancomycin Trough 05/19/21 05/19/21 05/19/21 00:05 04:08 05:07 WBC RBC Hgb MCV RDW Plt Count Lymph % (Auto) Lymph # (Auto) Seg Neutrophils % Seg Neuts % (Manual) Lymphocytes % (Manual) Seg Neutrophils # Man Lymphocytes # (Manual) PT INR ABG pH ABG pO2 ABG HCO3 ABG Base Excess ABG Hemoglobin Oxyhemoglobin Sodium 146 H Potassium Chloride Carbon Dioxide 35 H BUN 25 H Creatinine 0.4 L Glucose 218 H POC Glucose 164 H 203 H Lactic Acid Calcium 7.2 L Phosphorus Magnesium Total Bilirubin Direct Bilirubin AST ALT Alkaline Phosphatase Total Protein Albumin Lipase Ur Specific Howard Vancomycin Trough 05/19/21 05/19/21 05/19/21 12:16 14:14 17:11 WBC RBC Hgb MCV RDW Plt Count Lymph % (Auto) Lymph # (Auto) Seg Neutrophils % Seg Neuts % (Manual) Lymphocytes % (Manual) Seg Neutrophils # Man Lymphocytes # (Manual) PT INR ABG pH 7.482 H ABG pO2 111.7 H ABG HCO3 31.4 H ABG Base Excess 7.2 H ABG Hemoglobin 11.1 L Oxyhemoglobin Sodium Potassium Chloride Carbon Dioxide BUN Creatinine Glucose POC Glucose 206 H 194 H Lactic Acid Calcium Phosphorus Magnesium Total Bilirubin Direct Bilirubin AST ALT Alkaline Phosphatase Total Protein Albumin Lipase Ur Specific Howard Vancomycin Trough 05/20/21 05/20/21 05/20/21 00:01 04:30 06:09 WBC RBC Hgb MCV RDW Plt Count Lymph % (Auto) Lymph # (Auto) Seg Neutrophils % Seg Neuts % (Manual) Lymphocytes % (Manual) Seg Neutrophils # Man Lymphocytes # (Manual) PT INR ABG pH ABG pO2 ABG HCO3 ABG Base Excess ABG Hemoglobin Oxyhemoglobin Sodium Potassium 3.5 L Chloride Carbon Dioxide BUN 24 H Creatinine 0.3 L Glucose 254 H POC Glucose 209 H 210 H Lactic Acid Calcium 7.5 L Phosphorus 1.90 L D Magnesium Total Bilirubin 1.60 H Direct Bilirubin AST 201 H ALT 170 H Alkaline Phosphatase 169 H Total Protein 5.3 L Albumin 1.9 L Lipase Ur Specific Howard Vancomycin Trough 05/20/21 05/20/21 05/20/21 11:41 16:47 22:21 WBC RBC Hgb MCV RDW Plt Count Lymph % (Auto) Lymph # (Auto) Seg Neutrophils % Seg Neuts % (Manual) Lymphocytes % (Manual) Seg Neutrophils # Man Lymphocytes # (Manual) PT INR ABG pH ABG pO2 ABG HCO3 ABG Base Excess ABG Hemoglobin Oxyhemoglobin Sodium Potassium Chloride Carbon Dioxide BUN Creatinine Glucose POC Glucose 158 H 232 H 211 H Lactic Acid Calcium Phosphorus Magnesium Total Bilirubin Direct Bilirubin AST ALT Alkaline Phosphatase Total Protein Albumin Lipase Ur Specific Howard Vancomycin Trough 05/21/21 05/21/21 05/21/21 00:35 04:00 04:00 WBC RBC 3.28 L Hgb MCV RDW 18.7 H Plt Count 125 L Lymph % (Auto) Lymph # (Auto) Seg Neutrophils % Seg Neuts % (Manual) Lymphocytes % (Manual) Seg Neutrophils # Man Lymphocytes # (Manual) PT INR ABG pH ABG pO2 ABG HCO3 ABG Base Excess ABG Hemoglobin Oxyhemoglobin Sodium Potassium 5.1 H D Chloride 108.7 H Carbon Dioxide BUN 21 H Creatinine 0.2 L Glucose 242 H POC Glucose 230 H Lactic Acid Calcium 7.3 L Phosphorus Magnesium Total Bilirubin Direct Bilirubin AST ALT Alkaline Phosphatase Total Protein Albumin Lipase Ur Specific Howard Vancomycin Trough 05/21/21 05/21/21 05/21/21 05:08 11:47 17:43 WBC RBC Hgb MCV RDW Plt Count Lymph % (Auto) Lymph # (Auto) Seg Neutrophils % Seg Neuts % (Manual) Lymphocytes % (Manual) Seg Neutrophils # Man Lymphocytes # (Manual) PT INR ABG pH ABG pO2 ABG HCO3 ABG Base Excess ABG Hemoglobin Oxyhemoglobin Sodium Potassium Chloride Carbon Dioxide BUN Creatinine Glucose POC Glucose 196 H 139 H 147 H Lactic Acid Calcium Phosphorus Magnesium Total Bilirubin Direct Bilirubin AST ALT Alkaline Phosphatase Total Protein Albumin Lipase Ur Specific Howard Vancomycin Trough 05/21/21 05/21/21 05/22/21 17:57 23:32 04:16 WBC RBC Hgb MCV RDW Plt Count Lymph % (Auto) Lymph # (Auto) Seg Neutrophils % Seg Neuts % (Manual) Lymphocytes % (Manual) Seg Neutrophils # Man Lymphocytes # (Manual) PT INR ABG pH ABG pO2 ABG HCO3 ABG Base Excess ABG Hemoglobin Oxyhemoglobin Sodium Potassium 5.2 H Chloride Carbon Dioxide BUN 19 H Creatinine 0.2 L Glucose 154 H POC Glucose 218 H 185 H Lactic Acid Calcium 7.5 L Phosphorus Magnesium Total Bilirubin 3.00 H Direct Bilirubin 2.3 H AST 437 H ALT 462 H Alkaline Phosphatase 186 H Total Protein 5.5 L Albumin 1.9 L Lipase Ur Specific Howard Vancomycin Trough 05/22/21 05/22/21 05/22/21 04:30 04:30 04:30 WBC RBC Hgb MCV RDW Plt Count Lymph % (Auto) Lymph # (Auto) Seg Neutrophils % Seg Neuts % (Manual) Lymphocytes % (Manual) Seg Neutrophils # Man Lymphocytes # (Manual) PT 19.5 H INR 1.49 H ABG pH ABG pO2 ABG HCO3 ABG Base Excess ABG Hemoglobin Oxyhemoglobin Sodium 134 L Potassium Chloride Carbon Dioxide BUN 19 H Creatinine 0.2 L Glucose 208 H POC Glucose Lactic Acid Calcium 7.2 L Phosphorus 2.40 L D Magnesium Total Bilirubin 2.20 H Direct Bilirubin AST 350 H ALT 496 H Alkaline Phosphatase 167 H Total Protein 4.8 L Albumin 1.7 L Lipase Ur Specific Howard Vancomycin Trough 05/22/21 05/22/21 05/22/21 11:59 17:16 23:07 WBC RBC Hgb MCV RDW Plt Count Lymph % (Auto) Lymph # (Auto) Seg Neutrophils % Seg Neuts % (Manual) Lymphocytes % (Manual) Seg Neutrophils # Man Lymphocytes # (Manual) PT INR ABG pH ABG pO2 ABG HCO3 ABG Base Excess ABG Hemoglobin Oxyhemoglobin Sodium Potassium Chloride Carbon Dioxide BUN Creatinine Glucose POC Glucose 204 H 244 H 226 H Lactic Acid Calcium Phosphorus Magnesium Total Bilirubin Direct Bilirubin AST ALT Alkaline Phosphatase Total Protein Albumin Lipase Ur Specific Howard Vancomycin Trough 05/23/21 05/23/21 05/23/21 05:09 10:15 10:15 WBC RBC Hgb MCV RDW Plt Count Lymph % (Auto) Lymph # (Auto) Seg Neutrophils % Seg Neuts % (Manual) Lymphocytes % (Manual) Seg Neutrophils # Man Lymphocytes # (Manual) PT 16.9 H INR 1.24 H ABG pH ABG pO2 ABG HCO3 ABG Base Excess ABG Hemoglobin Oxyhemoglobin Sodium 131 L Potassium Chloride 97.5 L Carbon Dioxide BUN Creatinine < 0.2 L Glucose 248 H POC Glucose 175 H Lactic Acid Calcium 7.4 L Phosphorus Magnesium 1.60 L Total Bilirubin Direct Bilirubin AST ALT Alkaline Phosphatase Total Protein Albumin Lipase Ur Specific Howard Vancomycin Trough 05/23/21 10:15 WBC RBC Hgb MCV RDW Plt Count Lymph % (Auto) Lymph # (Auto) Seg Neutrophils % Seg Neuts % (Manual) Lymphocytes % (Manual) Seg Neutrophils # Man Lymphocytes # (Manual) PT INR ABG pH ABG pO2 ABG HCO3 ABG Base Excess ABG Hemoglobin Oxyhemoglobin Sodium Potassium Chloride Carbon Dioxide BUN Creatinine Glucose POC Glucose Lactic Acid Calcium Phosphorus Magnesium Total Bilirubin 2.30 H Direct Bilirubin 1.6 H AST 161 H ALT 396 H Alkaline Phosphatase 186 H Total Protein 4.7 L Albumin 2.0 L Lipase Ur Specific Howard Vancomycin Trough Allied health notes reviewed: nursing
[2021-05-23] MEDS ORDERED: TOTAL PARENTERAL NUTRITION 1,999.92 ML IV SCH (20:00)
[2021-05-23] MEDS: BENZONATATE 100 MG CAP PO PRN (22:02)
[2021-05-23] MEDS: INSULIN GLARGINE 100 UNITS/ML SUB-Q SCH (22:03)
[2021-05-23] MEDS: ENOXAPARIN 40 MG/0.4 ML INJ SUB-Q SCH (22:08)
[2021-05-24] MEDS: HALOPERIDOL LACTATE 5 MG/1 ML INJ IV PRN ×2 (01:20→12:33)
[2021-05-24] MEDS: MORPHINE 2 MG/1 ML INJ IV PRN (02:48)
[2021-05-24 04:43] LABS: Blood Urea Nitrogen 15 mg/dL (7-17); Calcium 6.8 mg/dL (8.4-10.2); Hemolysis Index 12
[2021-05-24 05:02] LABS: BUN/Creatinine Ratio 75
[2021-05-24] MEDS: INSULIN LISPRO 100 UNIT/ML SUB-Q SCH ×3 (05:34→18:27)
[2021-05-24] MEDS: BUDESONIDE 0.5 MG/2 ML NEBU IH SCH ×2 (08:26→23:08)
[2021-05-24] MEDS: ARFORMOTEROL 15 MCG/2 ML NEBU IH SCH ×2 (08:26→23:08)
--- NOTE | 2021-05-24 10:01 | Progress Note ---
Assessment and Plan Assessment and plan: This is a 48-year-old female with COPD, pancreatic cancer with radiation s/p pancreatic stent placement, pulmonary fibrosis, chronic respiratory failure on 2 L nasal cannula admitted with sepsis, transaminitis and lactic acidosis. Neuro: NAD -Avoid delirium -Reorientation as needed -Maintain sleep-wake cycle CV: Hypotension, h/o HTN -Hold home htn medications -s/p vasopressor support with levo and vasopressin -BP monitoring per protocol -CCM consulted, appreciate recommendations -Hold home htn medications -s/p IV Lasix X 3days Respiratory: h/o pulmonary fibrosis, acute on chronic respiratory failure on home O2 of 2 L nasal cannula -Supplemental oxygen as needed -Tessalon Perles as needed for cough -SPO2 monitoring -Pulmonary hygiene -Bipap q hs and prn -Optiflow as tolerated -Wean FiO2 as tolerated -Pulmonary hygiene GI: Transaminitis, protein calorie malnutrition, biliary dilation, r/o cholangitis, h/o pancreatic cancer s/p stent placement -CT abdomen/pelvis showed pancreatic cancer with metallic stent with possible occlusion, mild pelvic fluid and mild colonic thickening -GI consulted, patient recommendations -MRCP pending-> plan for once respiratory status stable -If stent occlusion/biliary obstruction would recommend IR consult for PTC drain per GI -TPN -start cyclic tube feedings -ST evaluation -PPI -BR to start once taking p.o. -24-hour +390 -Acute hepatitis panel negative -Trend LFTs -Abd US shows findings similar to hepatomegaly and steatosis without significant abnormalities in the right quadrant : Hypophosphatemia -Strict intake and output -Purewick in place -Daily weights -Renally dose meds, avoid nephrotoxins -Replace Phosphate Endo: Hyperglycemia, s/p hypoglycemia -Hypoglycemia protocol -Avoid hypoglycemia -SSI every 6 hours -Lantus, titrate as needed ID: Septic shock, Lactic acidosis (improving) -Blood cultures x2 no growth to date -Patient has leukocytosis, hypotension -s/p IV meropenem -Monitor WBC and fever curve -ID consulted, appreciated recommendation -COVID PCR (-) Heme: Thrombocytopenia, Elevated INR -Trend CBC -Transfuse for hemoglobin less than 7 -SCD to bilateral lower extremities while in bed -Lovenox subcu -Monitor platelets Oncology: h/o pancreatic head cancer -F/U with outpatient oncologist -Currently on radiation -Not a surgical candidate per GI -Right chest post not accessed History Interval history: This is a 51-year-old female with COPD, pancreatic cancer and radiation, s/p pancreatic stent placement, pulmonary fibrosis, hypertension and chronic respiratory failure on 2 L oxygen via nasal cannula who presented to emergency department on 05/11 with complaints of right upper quadrant pain which started approximately at 0200 with nausea and vomiting. Work-up in the emergency department included a CTA chest which showed no pulmonary embolism, mild fluid- filled esophagus and distended stomach with bilateral interstitial opacity in the chest, and CT abdomen/pelvis with contrast which showed persistent pancreatic carcinoma with indwelling metallic stent which is suspected to be occluded. Lab work revealed leukocytosis, transaminitis and lactic acidosis. Patient became hypotensive in the emergency department and required 3 L of IV fluid and was eventually started on vasopressors after placement of femoral central line. Patient was started on empiric antibiotics. Admitted to the hospitalist service with consults to GI and CCM for transaminitis, possible sepsis, and lactic acidosis. 05/12: Patient remains on high-dose Levophed and vasopressin. Given 1 L LR bolus. GI would like an MRCP to be conducted which has been ordered. Patient cleared for sips of water. Added Tessalon due to severe cough. Potassium repleted. Covid PCR negative. 05/13: Remains on Levophed and vasopressin has been off since yesterday evening. Started on stress dose steroids. MRCP pending. Hypokalemia, hypomagnesemia and hypophosphatemia repleted. Liver enzymes trending down. Started on D5 norm al saline yesterday. 05/14: Patient with worsen respiratory status this am, tachypneic with increased O2 requirement. On full support on the Bipap this am with worsening diffuse bilateral opacities on CXR, s/p X1 dose of IV lasix overnight. Patient remains afebrile with no leukocytosis. Will continue IV Lasix X3 doses, f/u CXR in the am. D/W CCM due to patient worsening respiratory status hold on MRCP for today. Patient is off Levophed this am, leave pressors on standby might need to be put back on low dose pressors with IV diuretic. Patient also noted with Rt. fem CVC which was inserted in the ED, most likely due to be change, unsuccessfult PICC by IVT today and patient is refusing Port access at this time. 12/21: Patient remains on continuous Bipap overnight, desat when bipap is remove d for mouth care. Plan to wean Fio2 as tolerated for SPO2 goal above 90%. Febrile overnight, TMAX 101.4, on IV abx zosyn, repeat blood culture ordered. Low K and phosph repleted, repeat labs in the am. 05/16: Patient back on full support on the Bipap, still not tolerating FiO2 wean, patient desat in the 80s. D/w CCM plan to continue continuous bipap for now, patient going on over 4 days with no nutrition plan to initiate TPN tomorrow. D10w gtt added for hypoglycemia. Patient platelet continue to steadily drop, given patient's history with continue AC for now, H&H is stable, no s/s of any active bleeding. Electrolytes repleted, will continue to trend CBC, BMP, mg, and phos. MRCP canceled, plan to reorder once patient's respiratory status is more stable. 05/17: Patient remains on continuous Bipap. Patient remains on low dose Levophed, plan to wean off pressors as tolerated for a MAP above 65. Clinimix initiated overnight, plan to start TPN tonight. Hyperglycemic overnight, SSI was initiated. Low phos repleted, repeat lab in the am. 05/18: Down to 60% FIo2 on the Bipap, SPO2 above 97%. Off pressros this am, TPN is running. Patient is now hyperglycemic, SSI adjusted. Consider basal dose, lantus if hyperglycemia persist. This am labs noted, hyperkalemia and really high glucose noted totally different from normal trend, orders placed for redraw. 05/19: Overnight events noted. Started on PRN haldol for agitation. Patient placed on heated high Flow at 100%, 40L SPO2 at 100%. Continue to wean Fio2 as tolerated for SPO2 for SPO2 above 92%. Continue TPN for now. Patient still hype rglycemic basal dose lantus added Qhs. 05/20: Patient is tolerating HHFL NC, SPO2 above 95%. Continue HHFL NC during and Bipap at night. Still on TPN for nutrition, hyperglycemia persists- basal insulin increased. Low K and phosp was repleted, repeat lab in the am. 05/21: Patient unable to tolerate OptiFlow for more than couple hours and was placed back on BiPAP due to desaturation. Patient remains on TPN for nutrition which was held today due to hyperkalemia. P.m. BMP ordered but not collected. Patient refused to have port accessed and PICC line ordered. Down grading to [facility] status 05/21 abdominal ultrasound shows findings of emergency megaly and steatosis without other significant abnormality in the right upper quadrant. ST eval ordered and Ntr consult for cyclic TF. midline ordered 05/23/ Patient with acute on chronic resp failure, COPD, pancreatic cancer. She has been transferred to [facility]. She is on BIPAP Hypomag. Replace and recheck in am 05/24/21 Payient with acute on chronic resp failure. Still on BIPAP To start tube feeding History Interval history: Patient feels better Was refusing NG tube placement for tube feed but I discussed with her advantages Hospitalist Physical - Physical exam Narrative exam: General appearance: Present: no acute distress, obese, On BIPAP - EENT Eyes: Present: PERRL, EOM intact ENT: hearing intact, clear oral mucosa, dentition normal - Neck Neck: Present: normal ROM - Respiratory Respiratory effort: normal Respiratory: bilateral: diminished - Cardiovascular Rhythm: regular Heart Sounds: Present: S1 & S2. Absent: systolic murmur, diastolic murmur - Extremities Extremities: no ischemia, pulses intact, pulses symmetrical, No edema, normal temperature, normal color Peripheral Pulses: within normal limits - Abdominal General gastrointestinal: soft, non-tender, non-distended, normal bowel sounds - Integumentary Integumentary: Present: warm, dry - Psychiatric Psychiatric: appropriate mood/affect, cooperative - Neurologic Neurologic: CNII-XII intact, moves all extremities - Constitutional Vitals: Temp Pulse Resp BP Pulse Ox 98.9 F 75 30 H 97/59 97 05/24/21 04:00 05/24/21 08:26 05/24/21 08:26 05/24/21 06:00 05/24/21 08:26 General appearance: Present: no acute distress, obese Results - Labs CBC & Chem 7: 05/21/21 04:00 05/24/21 04:16 Labs: Laboratory Last Values WBC 9.9 K/mm3 (4.5-11.0) 05/21/21 04:00 RBC 3.28 M/mm3 (3.65-5.03) L 05/21/21 04:00 Hgb 10.3 gm/dl (10.1-14.3) 05/21/21 04:00 Hct 31.7 % (30.3-42.9) 05/21/21 04:00 MCV 97 fl (79-97) 05/21/21 04:00 MCH 32 pg (28-32) 05/21/21 04:00 MCHC 33 % (30-34) 05/21/21 04:00 RDW 18.7 % (13.2-15.2) H 05/21/21 04:00 Plt Count 125 K/mm3 (140-440) L 05/21/21 04:00 Lymph % (Auto) 7.4 % (13.4-35.0) L 05/15/21 04:45 Lea % (Auto) 6.7 % (0.0-7.3) 05/15/21 04:45 Eos % (Auto) 4.0 % (0.0-4.3) 05/15/21 04:45 Baso % (Auto) 0.7 % (0.0-1.8) 05/15/21 04:45 Lymph # (Auto) 0.6 K/mm3 (1.2-5.4) L 05/15/21 04:45 Lea # (Auto) 0.6 K/mm3 (0.0-0.8) 05/15/21 04:45 Eos # (Auto) 0.3 K/mm3 (0.0-0.4) 05/15/21 04:45 Baso # (Auto) 0.1 K/mm3 (0.0-0.1) 05/15/21 04:45 Add Manual Diff Complete 05/12/21 04:08 Total Counted 200 05/12/21 04:08 Seg Neutrophils % 81.2 % (40.0-70.0) H 05/15/21 04:45 Seg Neuts % (Manual) 85.5 % (40.0-70.0) H 05/12/21 04:08 Band Neutrophils % 8.5 % 05/12/21 04:08 Lymphocytes % (Manual) 2.0 % (13.4-35.0) L 05/12/21 04:08 Monocytes % (Manual) 3.0 % (0.0-7.3) 05/12/21 04:08 Eosinophils % (Manual) 1.0 % (0.0-4.3) 05/12/21 04:08 Nucleated RBC % Not Reportable 05/12/21 04:08 Seg Neutrophils # 6.7 K/mm3 (1.8-7.7) 05/15/21 04:45 Seg Neutrophils # Man 19.5 K/mm3 (1.8-7.7) H 05/12/21 04:08 Band Neutrophils # 1.9 K/mm3 05/12/21 04:08 Lymphocytes # (Manual) 0.5 K/mm3 (1.2-5.4) L 05/12/21 04:08 Abs React Lymphs (Man) 0.0 K/mm3 05/12/21 04:08 Monocytes # (Manual) 0.7 K/mm3 (0.0-0.8) 05/12/21 04:08 Eosinophils # (Manual) 0.2 K/mm3 (0.0-0.4) 05/12/21 04:08 Basophils # (Manual) 0.0 K/mm3 (0.0-0.1) 05/12/21 04:08 Metamyelocytes # 0.0 K/mm3 05/12/21 04:08 Myelocytes # 0.0 K/mm3 05/12/21 04:08 Promyelocytes # 0.0 K/mm3 05/12/21 04:08 Blast Cells # 0.0 K/mm3 05/12/21 04:08 WBC Morphology Not Reportable 05/12/21 04:08 Hypersegmented Neuts Not Reportable 05/12/21 04:08 Hyposegmented Neuts Not Reportable 05/12/21 04:08 Hypogranular Neuts Not Reportable 05/12/21 04:08 Smudge Cells Not Reportable 05/12/21 04:08 Toxic Granulation Not Reportable 05/12/21 04:08 Toxic Vacuolation Not Reportable 05/12/21 04:08 Dohle Bodies Not Reportable 05/12/21 04:08 Pelger-Huet Anomaly Not Reportable 05/12/21 04:08 Elizabeth Rods Not Reportable 05/12/21 04:08 Platelet Estimate Consistent w auto 05/12/21 04:08 Clumped Platelets Not Reportable 05/12/21 04:08 Plt Clumps, EDTA Not Reportable 05/12/21 04:08 Large Platelets Not Reportable 05/12/21 04:08 Giant Platelets Not Reportable 05/12/21 04:08 Platelet Satelliting Not Reportable 05/12/21 04:08 Plt Morphology Comment Not Reportable 05/12/21 04:08 RBC Morphology Not Reportable 05/12/21 04:08 Dimorphic RBCs Not Reportable 05/12/21 04:08 Polychromasia Not Reportable 05/12/21 04:08 Hypochromasia Not Reportable 05/12/21 04:08 Poikilocytosis Not Reportable 05/12/21 04:08 Anisocytosis 1+ 05/12/21 04:08 Microcytosis Not Reportable 05/12/21 04:08 Macrocytosis Not Reportable 05/12/21 04:08 Spherocytes Not Reportable 05/12/21 04:08 Pappenheimer Bodies Not Reportable 05/12/21 04:08 Sickle Cells Not Reportable 05/12/21 04:08 Target Cells Not Reportable 05/12/21 04:08 Tear Drop Cells Not Reportable 05/12/21 04:08 Ovalocytes Not Reportable 05/12/21 04:08 Helmet Cells Not Reportable 05/12/21 04:08 [place] Bodies Not Reportable 05/12/21 04:08 [place] Rings Not Reportable 05/12/21 04:08 Marcin Cells Not Reportable 05/12/21 04:08 Bite Cells Not Reportable 05/12/21 04:08 Crenated Cell Not Reportable 05/12/21 04:08 Elliptocytes Not Reportable 05/12/21 04:08 Acanthocytes (Spur) Not Reportable 05/12/21 04:08 Rouleaux Not Reportable 05/12/21 04:08 Hemoglobin C Crystals Not Reportable 05/12/21 04:08 Schistocytes Not Reportable 05/12/21 04:08 Malaria parasites Not Reportable 05/12/21 04:08 Tahir Bodies Not Reportable 05/12/21 04:08 Hem Pathologist Commnt No 05/12/21 04:08 PT 16.9 Sec. (12.2-14.9) H 05/23/21 10:15 INR 1.24 (0.87-1.13) H 05/23/21 10:15 ABG pH 7.482 pH Units (7.350-7.450) H 05/19/21 14:14 ABG pCO2 42.9 mm Hg 05/19/21 14:14 ABG pO2 111.7 mm Hg (80.0-90.0) H 05/19/21 14:14 ABG HCO3 31.4 mmol/L (20.0-26.0) H 05/19/21 14:14 ABG O2 Saturation 98.2 % (95.0-99.0) 05/19/21 14:14 ABG O2 Content 15.2 (0.0-44) 05/19/21 14:14 ABG Base Excess 7.2 mmol/L (-2.0-3.0) H 05/19/21 14:14 ABG Hemoglobin 11.1 gm/dl (12.0-16.0) L 05/19/21 14:14 ABG Carboxyhemoglobin 1.1 % (0.0-5.0) 05/19/21 14:14 ABG Methemoglobin 0.6 % (0.0-1.5) 05/19/21 14:14 Oxyhemoglobin 96.4 % (95.0-99.0) 05/19/21 14:14 FiO2 100 % 05/19/21 14:14 Sodium 130 mmol/L (137-145) L 05/24/21 04:16 Potassium 3.5 mmol/L (3.6-5.0) L 05/24/21 04:16 Chloride 97.1 mmol/L (98-107) L 05/24/21 04:16 Carbon Dioxide 24 mmol/L (22-30) 05/24/21 04:16 Anion Gap 12 mmol/L 05/24/21 04:16 BUN 15 mg/dL (7-17) 05/24/21 04:16 Creatinine 0.2 mg/dL (0.6-1.2) L 05/24/21 04:16 Estimated GFR > 60 ml/min 05/24/21 04:16 BUN/Creatinine Ratio 75 % 05/24/21 04:16 Glucose 235 mg/dL (65-100) H 05/24/21 04:16 POC Glucose 208 mg/dL (70-105) H 05/24/21 05:32 Hemoglobin A1c 5.2 % (4-6) 05/12/21 04:08 Lactic Acid 3.30 mmol/L (0.7-2.0) H* 05/12/21 Unknown Calcium 6.8 mg/dL (8.4-10.2) L 05/24/21 04:16 Phosphorus 2.60 mg/dL (2.5-4.5) 05/24/21 04:16 Magnesium 2.00 mg/dL (1.7-2.3) 05/24/21 04:16 Total Bilirubin 2.30 mg/dL (0.1-1.2) H 05/23/21 10:15 Direct Bilirubin 1.6 mg/dL (0-0.2) H 05/23/21 10:15 Indirect Bilirubin 0.7 mg/dL 05/23/21 10:15 AST 161 units/L (5-40) H 05/23/21 10:15 ALT 396 units/L (7-56) H 05/23/21 10:15 Alkaline Phosphatase 186 units/L (35-129) H 05/23/21 10:15 Total Protein 4.7 g/dL (6.3-8.2) L 05/23/21 10:15 Albumin 2.0 g/dL (3.9-5) L 05/23/21 10:15 Albumin/Globulin Ratio 0.7 % 05/23/21 10:15 Triglycerides 90 mg/dL (2-149) 05/23/21 10:15 Lipase 3 units/L (13-60) L 05/11/21 05:43 Urine Color Deisi (Yellow) 05/11/21 11:18 Urine Turbidity Clear (Clear) 05/11/21 11:18 Urine pH 6.0 (5.0-7.0) 05/11/21 11:18 Ur Specific [place] 1.035 (1.003-1.030) H 05/11/21 11:18 Urine Protein 100 mg/dl mg/dL (Negative) 05/11/21 11:18 Urine Glucose (UA) Neg mg/dL (Negative) 05/11/21 11:18 Urine Ketones Neg mg/dL (Negative) 05/11/21 11:18 Urine Blood Neg (Negative) 05/11/21 11:18 Urine Nitrite Neg (Negative) 05/11/21 11:18 Urine Bilirubin Neg (Negative) 05/11/21 11:18 Urine Urobilinogen < 2.0 mg/dL (<2.0) 05/11/21 11:18 Ur Leukocyte Esterase Neg (Negative) 05/11/21 11:18 Urine WBC (Auto) 2.0 /HPF (0.0-6.0) 05/11/21 11:18 Urine RBC (Auto) 1.0 /HPF (0.0-6.0) 05/11/21 11:18 Urine Mucus Few /HPF 05/11/21 11:18 Vancomycin Trough 25.3 ug/mL (5.0-20.0) H 05/14/21 15:20 Coronavirus (PCR) Negative (Negative) 05/12/21 10:16 Hepatitis A IgM Ab Non-reactive (NonReactive) 05/12/21 12:30 Hep Bs Antigen Nonreactive (Negative) 05/12/21 12:30 Hep B Core IgM Ab Non-reactive (NonReactive) 05/12/21 12:30 Hepatitis C Antibody Non-reactive (NonReactive) 05/12/21 12:30 Rivas/IV: Voiding Method External Female Catheter Active Medications - Current Medications Current Medications: Generic Name Dose Route Start Last Admin Trade Name Freq PRN Reason Stop Dose Admin Acetaminophen 650 mg 05/11/21 21:40 05/14/21 20:06 Acetaminophen 325 Mg Tab PO 650 mg Q4H PRN Administration Pain MILD(1-3)/Fever >100.5/WOODS Lipase/Protease/Amylase 1 each 05/22/21 16:30 Lipase 10,500/Protease 25,000/Amylase 43,750 (Units) Dr Baker FEEDTUBE PRN PRN For Clogged Feeding Tube Arformoterol Tartrate 15 mcg 05/12/21 08:00 05/24/21 08:26 Arformoterol 15 Mcg/2 Ml Nebu IH 15 mcg Q12HRT ABRAHAN Administration Benzonatate 100 mg 05/12/21 15:53 05/23/21 22:02 Benzonatate 100 Mg Cap PO 100 mg Q8HR PRN Administration Cough Budesonide 0.5 mg 05/12/21 08:00 05/24/21 08:26 Budesonide 0.5 Mg/2 Ml Nebu IH 0.5 mg Q12HRT ABRAHAN Administration Dexamethasone 6 mg 05/16/21 13:00 05/23/21 09:24 Dexamethasone 4 Mg/Ml Vial IV 6 mg Q24HR ABRAHAN Administration Dextrose 50 ml 05/12/21 11:57 05/16/21 08:30 Dextrose 50% In Water (25gm) 50 Ml Syringe IV 20 ml Q30MIN PRN Administration Hypoglycemia Protocol Dicyclomine HCl 10 mg 05/23/21 14:00 05/23/21 22:03 Dicyclomine 10 Mg Cap PO 10 mg QID ABRAHAN Administration Enoxaparin Sodium 40 mg 05/14/21 22:00 05/23/21 22:08 Enoxaparin 40 Mg/0.4 Ml Inj SUB-Q 40 mg QDAY@2200 [facility] Administration Protocol Haloperidol Lactate 5 mg 05/19/21 15:00 05/24/21 01:20 Haloperidol Lactate 5 Mg/1 Ml Inj IV 5 mg Q8H PRN Administration Agitation Amino Acids/Electrolytes/Dextrose 1,999.92 mls @ 83.33 mls/hr 05/23/21 20:00 05/23/21 21:00 Tpn Adult IV 05/24/21 19:59 83.33 mls/hr DAILY@2000 [facility] Administration Protocol Insulin Glargine 20 units 05/22/21 22:00 05/23/21 22:03 Insulin Glargine 100 Units/Ml SUB-Q 20 units QHS ABRAHAN Administration Insulin Human Lispro 0 unit 05/17/21 12:00 05/24/21 05:34 Insulin Lispro 100 Unit/Ml SUB-Q 4 unit Q6HR [facility] Administration Protocol Metoclopramide HCl 10 mg 05/11/21 21:40 Metoclopramide 10 Mg/2 Ml Inj IV Q6H PRN Nausea And Vomiting Morphine Sulfate 2 mg 05/11/21 21:40 05/24/21 02:48 Morphine 2 Mg/1 Ml Inj IV 2 mg Q4H PRN Administration Pain, Moderate (4-6) Ondansetron HCl 4 mg 05/11/21 21:40 05/15/21 09:57 Ondansetron 4 Mg/2 Ml Inj IV 4 mg Q8H PRN Administration Nausea And Vomiting Pantoprazole Sodium 40 mg 05/15/21 10:00 05/23/21 09:24 Pantoprazole 40 Mg Inj IV 40 mg QDAY ABRAHAN Administration Simple Syrup 15 ml 05/22/21 16:30 Simple Syrup 15 Ml FEEDTUBE PRN PRN Hypoglycemia Simple Syrup 30 ml 05/22/21 16:30 Simple Syrup 15 Ml FEEDTUBE PRN PRN Hypoglycemia Sodium Bicarbonate 325 mg 05/22/21 16:30 Sodium Bicarbonate 325 Mg Tab FEEDTUBE PRN PRN For Clogged Feeding Tube Sodium Chloride 10 ml 05/11/21 22:00 05/23/21 22:06 Sodium Chloride 0.9% 10 Ml Flush Syringe IV 10 ml BID ABRAHAN Administration Sodium Chloride 10 ml 05/11/21 21:40 05/23/21 21:00 Sodium Chloride 0.9% 10 Ml Flush Syringe IV 10 ml PRN PRN Administration LINE FLUSH Nutrition/Malnutrition Assess - Dietary Evaluation Nutrition/Malnutrition Findings: Nutrition Notes Start: 05/13/21 09:47 Freq: Status: Active Protocol: Document 05/23/21 12:49 ZENY (Rec: 05/23/21 13:21 ZENY [id number]) Nutrition Notes Initial or Follow up Reassessment Current Diagnosis COPD,Sepsis,Respiratory Failure Other Pertinent Diagnosis Pancreatic CA, pulmonary fibrosis, transaminitis Current Diet TPN at 83.33ml/hr Labs/Tests 05/23: Na 131, Cl 97.5, Crea 0 .2, Glu 248, Ca 7.4, Mg 1.6, Tbili 2.3, AST 161, ALT Pertinent Medications 05/23: Insulin, others nutritionally unremarkable. Height 5 ft 2 in Weight 78.4 kg [place] Body Weight (kg) 50.00 BMI 31.6 Weight change and time frame No body weight change reported . Weight Status Obese Subjective/Other Information Day 7 TPN. Pt will be starting PO tonight , to check for tolerance. Percent of energy/protein needs met: 56% energy 100% pro Burn Absent Trauma Absent Minimum of two criteria Yes Fluid Accumulation Mild (non-severe) Reduced Blasting Worker Strength Measurably Reduced (severe) #2 Nutrition Diagnosis Malnutrition Diagnosis Progress(for reassessment Continues documentation) #1 Nutrition Diagnosis Altered GI function Diagnosis Progress(for reassessment Continues documentation) Is patient on ventilator? No Is Patient Ambulatory and/or Out of Bed No [facility] 9140.852 Calculation Used for Recommendations Bobby Aceves Additional Notes Pro needs 2g/kg IBW: 100g/day Fluid needs 1ml/kcal Nutrition Intervention Nutrition Support: Continue TPN at 83.33 ml/hr: MVI, 75mEq Na, 40mEq K, 50%/50 % chloride/acetate. Osmolality: 1003. Kcal 910 Protein (gm) 100 Carbohydrates (gm) 150 Fat (gm) 0 Fluid (mL) 2,000 Fiber (gm) 0 % RDI: 56% Kcal; 100% AA. Goal #1 Provide at least 75% of energy /protein needs through Parenteral Nutrition during LOS. Follow-Up By: 05/24/21 Additional Comments Labs in am: BMP, Mg, Phos.
[2021-05-24] MEDS: DICYCLOMINE 10 MG CAP PO SCH ×3 (11:11→19:32)
[2021-05-24] MEDS: dexAMETHasone 4 MG/ML VIAL IV SCH (11:11)
[2021-05-24] MEDS: PANTOPRAZOLE 40 MG INJ IV SCH (11:11)
--- NOTE | 2021-05-24 12:49 | Progress Note ---
Assessment and Plan Septic shock possible hepatobiliary source Lactic acidosis h/o pulmonary fibrosis, Acute on chronic respiratory failure on home O2 of 2 L nasal cannula Transaminitis, biliary dilation, r/o cholangitis Hyperchloremia, metabolic acidosis, hypokalemia Hypoglycemia h/o pancreatic head cancer- chemoradiation therapy h/o Hypertension - gentle diuresis (lasix 20 mg IV daily X 3 days) - place almaraz for strict I's & O's while critically ill - discontinue groin CVL - now agrees to let us access her port-a-cath - back on continuous BIPAP with worsening hypoxemia - stop TPN - taper Dexamethasone to 4mg IV daily - begin enteral nutrition - continue to try daytime HFNC if tolerates - conservative volume management - continue care as below otherwise; - continue BIPAP scheduled qhs with prn daytime use - intubate if decompensates - prn vasopressors for target MAP > 65 mmHg - MRCP pending as she remains tenuous from a respiratory standpoint - continue anti-infective's; de-escalate per ID recommendations - continue accuchecks with glycemic control per SSI (While critically ill target blood glucose of 140-180 mg/dL; avoid hypoglycemia) - continue to wean supplemental oxygen for target O2 sat's > 90% acutely - aspiration precautions - bronchodilators with pulmonary hygiene per RT - avoid nephrotoxins, renally dose all medications - prn analgesia per pain score - Maintenance of sleep-wake cycle, avoid delirium - G.I. & VTE prophylaxis - PT/OT/ROM exercises - mobility protocols for pressure ulcer prophylaxis - Monitor hemodynamics closely - continue other care per attending / other consultants - discharge planning ongoing concurrently .... Re-evaluate in am & prn CONDITION: CRITICAL PROGNOSIS: GUARDED CODE STATUS: FULL CODE The high probability of a clinically significant, sudden or life-threatening deterioration of the [respiratory, cardiovascular, GI & neurologic] system(s) required my full and direct attention, intervention and personal management. The aggregate critical care time was [35] minutes without overlap. Time includes spent on; [x] Data Review and interpretation [x] Patient assessment and monitoring of vital signs [x] Documentation [x] Medication orders and management Subjective Date of service: 05/24/21 Principal diagnosis: Septic shock; Pulm fibrosis; Hypoxemic resp failure; COVID- 19 infxn Interval history: Patient is seen today for: Septic shock; pulmonary fibrosis; Acute on chronic hypoxemic respiratory failure; Transaminitis; h/o pancreatic head cancer; HTN Seen and examined at bedside; 24hour events reviewed; nursing and respiratory care staff consulted; no adverse overnight events reported to me; resting in bed; s/p peer to peer yesterday and LTAC transfer denied for now; Objective Vital Signs - 12hr 05/24/21 05/24/21 05/24/21 01:00 01:30 02:00 Temperature Pulse Rate 72 74 75 Pulse Rate [ Bilateral Throughout] Respiratory 26 H 24 21 Rate Respiratory Rate [Bilateral Throughout] Blood Pressure 115/68 115/68 112/58 O2 Sat by Pulse 96 99 95 Oximetry 05/24/21 05/24/21 05/24/21 02:30 03:00 03:30 Temperature Pulse Rate 64 66 68 Pulse Rate [ Bilateral Throughout] Respiratory 21 20 20 Rate Respiratory Rate [Bilateral Throughout] Blood Pressure 112/58 96/58 96/58 O2 Sat by Pulse 97 97 97 Oximetry 05/24/21 05/24/21 05/24/21 04:00 04:30 05:00 Temperature 98.9 F Pulse Rate 72 70 66 Pulse Rate [ Bilateral Throughout] Respiratory 25 H 23 22 Rate Respiratory Rate [Bilateral Throughout] Blood Pressure 105/55 105/55 101/60 O2 Sat by Pulse 97 99 99 Oximetry 05/24/21 05/24/21 05/24/21 05:30 06:00 06:30 Temperature Pulse Rate 67 66 66 Pulse Rate [ Bilateral Throughout] Respiratory 22 20 21 Rate Respiratory Rate [Bilateral Throughout] Blood Pressure 101/60 97/59 97/59 O2 Sat by Pulse 96 97 98 Oximetry 05/24/21 05/24/21 05/24/21 07:00 07:30 08:00 Temperature Pulse Rate 68 68 92 H Pulse Rate [ Bilateral Throughout] Respiratory 22 21 28 H Rate Respiratory Rate [Bilateral Throughout] Blood Pressure 104/61 104/61 104/61 O2 Sat by Pulse 98 98 92 Oximetry 05/24/21 05/24/21 05/24/21 08:26 08:30 09:00 Temperature Pulse Rate 75 73 76 Pulse Rate [ 79 Bilateral Throughout] Respiratory 30 H 24 22 Rate Respiratory 18 Rate [Bilateral Throughout] Blood Pressure 104/61 104/61 O2 Sat by Pulse 97 97 99 Oximetry 05/24/21 05/24/21 05/24/21 09:30 10:00 10:30 Temperature Pulse Rate 73 95 H 99 H Pulse Rate [ Bilateral Throughout] Respiratory 24 32 H 38 H Rate Respiratory Rate [Bilateral Throughout] Blood Pressure 104/61 104/61 104/61 O2 Sat by Pulse 98 94 88 Oximetry 05/24/21 05/24/21 05/24/21 11:00 11:30 12:00 Temperature 98.2 F Pulse Rate 86 101 H 92 H Pulse Rate [ Bilateral Throughout] Respiratory 34 H 30 H 31 H Rate Respiratory Rate [Bilateral Throughout] Blood Pressure 104/61 120/66 122/61 O2 Sat by Pulse 95 96 97 Oximetry 05/24/21 12:30 Temperature Pulse Rate 78 Pulse Rate [ Bilateral Throughout] Respiratory 32 H Rate Respiratory Rate [Bilateral Throughout] Blood Pressure 122/61 O2 Sat by Pulse 99 Oximetry Constitutional: no acute distress, other (mildly increased respiratory effort at rest ) Eyes: non-icteric ENT: oropharynx moist Neck: supple, no lymphadenopathy, no JVD Effort: mildly labored Ascultation: Bilateral: diminished breath sounds, rales (posterior bases) Percussion: Bilateral: not dull Cardiovascular: regular rate and rhythm, other (S1,S2) Gastrointestinal: normoactive bowel sounds, hypoactive bowel sounds, soft, non- distended (protuberant) Integumentary: normal Extremities: no cyanosis, no edema, pulses normal, other (right femoral CVL) Neurologic: normal mental status, non-focal exam, pupils equal and round, other (somnolent) Psychiatric: mood appropriate, affect normal, other (somnolenet) CBC and BMP: 05/21/21 04:00 05/24/21 04:16 ABG, PT/INR, D-dimer: ABG ABG pH 7.482 pH Units (7.350-7.450) H 05/19/21 14:14 ABG pCO2 42.9 mm Hg 05/19/21 14:14 ABG pO2 111.7 mm Hg (80.0-90.0) H 05/19/21 14:14 ABG O2 Saturation 98.2 % (95.0-99.0) 05/19/21 14:14 PT/INR, D-dimer PT 16.9 Sec. (12.2-14.9) H 05/23/21 10:15 INR 1.24 (0.87-1.13) H 05/23/21 10:15 Abnormal lab findings: Abnormal Labs 05/11/21 05/11/21 05/11/21 05:43 05:43 05:43 WBC RBC Hgb MCV 98 H RDW 17.7 H Plt Count Lymph % (Auto) 10.8 L Lymph # (Auto) 0.6 L Seg Neutrophils % 84.1 H Seg Neuts % (Manual) Lymphocytes % (Manual) Seg Neutrophils # Man Lymphocytes # (Manual) PT 16.0 H INR 1.16 H ABG pH ABG pO2 ABG HCO3 ABG Base Excess ABG Hemoglobin Oxyhemoglobin Sodium Potassium Chloride Carbon Dioxide 21 L BUN 4 L Creatinine 0.4 L Glucose POC Glucose Lactic Acid Calcium 8.3 L Phosphorus Magnesium Total Bilirubin 2.10 H Direct Bilirubin 1.4 H AST 335 H ALT 57 H Alkaline Phosphatase 339 H Total Protein Albumin 2.4 L Lipase 3 L Ur Specific [place] Vancomycin Trough 05/11/21 05/11/21 05/12/21 11:18 12:28 04:08 WBC RBC Hgb MCV RDW Plt Count Lymph % (Auto) Lymph # (Auto) Seg Neutrophils % Seg Neuts % (Manual) Lymphocytes % (Manual) Seg Neutrophils # Man Lymphocytes # (Manual) PT INR ABG pH ABG pO2 ABG HCO3 ABG Base Excess ABG Hemoglobin Oxyhemoglobin Sodium Potassium Chloride Carbon Dioxide BUN Creatinine Glucose POC Glucose Lactic Acid 4.20 H* 4.50 H* Calcium Phosphorus Magnesium Total Bilirubin Direct Bilirubin AST ALT Alkaline Phosphatase Total Protein Albumin Lipase Ur Specific [place] 1.035 H Vancomycin Trough 05/12/21 05/12/21 05/12/21 04:08 04:08 09:47 WBC 22.8 H RBC 3.39 L Hgb MCV 98 H RDW 17.7 H Plt Count Lymph % (Auto) Lymph # (Auto) Seg Neutrophils % Seg Neuts % (Manual) 85.5 H Lymphocytes % (Manual) 2.0 L Seg Neutrophils # Man 19.5 H Lymphocytes # (Manual) 0.5 L PT INR ABG pH ABG pO2 ABG HCO3 ABG Base Excess ABG Hemoglobin Oxyhemoglobin Sodium Potassium 3.3 L Chloride 108.9 H Carbon Dioxide 17 L BUN 4 L Creatinine 0.5 L Glucose 106 H POC Glucose Lactic Acid 2.60 H* Calcium 6.4 L D Phosphorus Magnesium Total Bilirubin 2.10 H Direct Bilirubin AST 156 H ALT 61 H Alkaline Phosphatase 317 H Total Protein 5.4 L D Albumin 1.8 L Lipase Ur Specific [place] Vancomycin Trough 05/12/21 05/12/21 05/12/21 11:47 12:30 12:36 WBC RBC Hgb MCV RDW Plt Count Lymph % (Auto) Lymph # (Auto) Seg Neutrophils % Seg Neuts % (Manual) Lymphocytes % (Manual) Seg Neutrophils # Man Lymphocytes # (Manual) PT INR ABG pH ABG pO2 ABG HCO3 ABG Base Excess ABG Hemoglobin Oxyhemoglobin Sodium Potassium Chloride Carbon Dioxide BUN Creatinine Glucose POC Glucose 59 L 120 H Lactic Acid 2.50 H* Calcium Phosphorus Magnesium Total Bilirubin Direct Bilirubin AST ALT Alkaline Phosphatase Total Protein Albumin Lipase Ur Specific [place] Vancomycin Trough 05/12/21 05/12/21 05/13/21 23:45 Unknown 04:00 WBC 19.8 H RBC 3.52 L Hgb MCV 98 H RDW 18.5 H Plt Count Lymph % (Auto) Lymph # (Auto) Seg Neutrophils % Seg Neuts % (Manual) Lymphocytes % (Manual) Seg Neutrophils # Man Lymphocytes # (Manual) PT INR ABG pH ABG pO2 ABG HCO3 ABG Base Excess ABG Hemoglobin Oxyhemoglobin Sodium Potassium Chloride Carbon Dioxide BUN Creatinine Glucose POC Glucose 119 H Lactic Acid 3.30 H* Calcium Phosphorus Magnesium Total Bilirubin Direct Bilirubin AST ALT Alkaline Phosphatase Total Protein Albumin Lipase Ur Specific [place] Vancomycin Trough 05/13/21 05/13/21 05/13/21 04:00 05:42 12:19 WBC RBC Hgb MCV RDW Plt Count Lymph % (Auto) Lymph # (Auto) Seg Neutrophils % Seg Neuts % (Manual) Lymphocytes % (Manual) Seg Neutrophils # Man Lymphocytes # (Manual) PT INR ABG pH ABG pO2 ABG HCO3 ABG Base Excess ABG Hemoglobin Oxyhemoglobin Sodium Potassium 3.4 L Chloride 107.1 H Carbon Dioxide 19 L BUN 4 L Creatinine 0.4 L Glucose 157 H POC Glucose 143 H 110 H Lactic Acid Calcium 7.4 L D Phosphorus 1.60 L Magnesium 1.50 L Total Bilirubin 1.40 H Direct Bilirubin AST 95 H ALT Alkaline Phosphatase 328 H Total Protein 5.5 L Albumin 1.6 L Lipase Ur Specific [place] Vancomycin Trough 05/14/21 05/14/21 05/14/21 06:15 06:15 10:25 WBC 11.7 H RBC 3.41 L Hgb MCV 98 H RDW 18.6 H Plt Count Lymph % (Auto) Lymph # (Auto) Seg Neutrophils % Seg Neuts % (Manual) Lymphocytes % (Manual) Seg Neutrophils # Man Lymphocytes # (Manual) PT INR ABG pH ABG pO2 76.0 L ABG HCO3 27.2 H ABG Base Excess ABG Hemoglobin 11.5 L Oxyhemoglobin 94.4 L Sodium Potassium 3.2 L Chloride Carbon Dioxide BUN 6 L Creatinine 0.5 L Glucose 103 H POC Glucose Lactic Acid Calcium 7.3 L Phosphorus 1.70 L Magnesium Total Bilirubin Direct Bilirubin AST 66 H ALT Alkaline Phosphatase 295 H Total Protein 5.3 L Albumin 1.8 L Lipase Ur Specific [place] Vancomycin Trough 05/14/21 05/14/21 05/14/21 15:20 15:20 17:26 WBC RBC Hgb MCV RDW Plt Count Lymph % (Auto) Lymph # (Auto) Seg Neutrophils % Seg Neuts % (Manual) Lymphocytes % (Manual) Seg Neutrophils # Man Lymphocytes # (Manual) PT INR ABG pH ABG pO2 ABG HCO3 ABG Base Excess ABG Hemoglobin Oxyhemoglobin Sodium 146 H D Potassium Chloride 108.4 H Carbon Dioxide BUN 5 L Creatinine 0.5 L Glucose POC Glucose 63 L Lactic Acid Calcium 7.6 L Phosphorus Magnesium Total Bilirubin Direct Bilirubin AST ALT Alkaline Phosphatase Total Protein Albumin Lipase Ur Specific [place] Vancomycin Trough 25.3 H 05/14/21 05/15/21 05/15/21 21:27 00:03 00:29 WBC RBC Hgb MCV RDW Plt Count Lymph % (Auto) Lymph # (Auto) Seg Neutrophils % Seg Neuts % (Manual) Lymphocytes % (Manual) Seg Neutrophils # Man Lymphocytes # (Manual) PT INR ABG pH ABG pO2 ABG HCO3 ABG Base Excess ABG Hemoglobin Oxyhemoglobin Sodium Potassium Chloride Carbon Dioxide BUN Creatinine Glucose POC Glucose 52 L 54 L 129 H Lactic Acid Calcium Phosphorus Magnesium Total Bilirubin Direct Bilirubin AST ALT Alkaline Phosphatase Total Protein Albumin Lipase Ur Specific [place] Vancomycin Trough 05/15/21 05/15/21 05/15/21 04:45 04:45 11:58 WBC RBC 3.24 L Hgb MCV 98 H RDW 18.5 H Plt Count 122 L Lymph % (Auto) 7.4 L Lymph # (Auto) 0.6 L Seg Neutrophils % 81.2 H Seg Neuts % (Manual) Lymphocytes % (Manual) Seg Neutrophils # Man Lymphocytes # (Manual) PT INR ABG pH ABG pO2 ABG HCO3 ABG Base Excess ABG Hemoglobin Oxyhemoglobin Sodium 146 H Potassium 3.1 L Chloride 108.8 H Carbon Dioxide BUN 6 L Creatinine Glucose 121 H POC Glucose 68 L Lactic Acid Calcium 7.5 L Phosphorus 2.30 L D Magnesium Total Bilirubin 1.90 H Direct Bilirubin AST 55 H ALT Alkaline Phosphatase 231 H Total Protein 5.4 L Albumin 1.5 L Lipase Ur Specific [place] Vancomycin Trough 05/15/21 05/16/21 05/16/21 13:50 00:06 00:43 WBC RBC Hgb MCV RDW Plt Count Lymph % (Auto) Lymph # (Auto) Seg Neutrophils % Seg Neuts % (Manual) Lymphocytes % (Manual) Seg Neutrophils # Man Lymphocytes # (Manual) PT INR ABG pH ABG pO2 ABG HCO3 ABG Base Excess ABG Hemoglobin Oxyhemoglobin Sodium Potassium Chloride Carbon Dioxide BUN Creatinine Glucose POC Glucose 147 H 54 L 116 H Lactic Acid Calcium Phosphorus Magnesium Total Bilirubin Direct Bilirubin AST ALT Alkaline Phosphatase Total Protein Albumin Lipase Ur Specific [place] Vancomycin Trough 05/16/21 05/16/21 05/16/21 04:31 04:31 05:58 WBC RBC 3.12 L Hgb 9.8 L MCV 98 H RDW 18.2 H Plt Count 115 L Lymph % (Auto) Lymph # (Auto) Seg Neutrophils % Seg Neuts % (Manual) Lymphocytes % (Manual) Seg Neutrophils # Man Lymphocytes # (Manual) PT INR ABG pH ABG pO2 ABG HCO3 ABG Base Excess ABG Hemoglobin Oxyhemoglobin Sodium 146 H Potassium 3.2 L Chloride Carbon Dioxide BUN 5 L Creatinine 0.5 L Glucose POC Glucose 61 L Lactic Acid Calcium 7.2 L Phosphorus 2.30 L Magnesium Total Bilirubin Direct Bilirubin AST ALT Alkaline Phosphatase Total Protein Albumin Lipase Ur Specific [place] Vancomycin Trough 05/16/21 05/16/21 05/17/21 08:11 23:42 04:15 WBC RBC Hgb MCV RDW Plt Count Lymph % (Auto) Lymph # (Auto) Seg Neutrophils % Seg Neuts % (Manual) Lymphocytes % (Manual) Seg Neutrophils # Man Lymphocytes # (Manual) PT INR ABG pH ABG pO2 ABG HCO3 ABG Base Excess ABG Hemoglobin Oxyhemoglobin Sodium Potassium Chloride Carbon Dioxide BUN Creatinine Glucose POC Glucose 58 L 200 H Lactic Acid Calcium Phosphorus Magnesium Total Bilirubin 1.70 H Direct Bilirubin 1.5 H AST 43 H ALT Alkaline Phosphatase 196 H Total Protein 5.4 L Albumin 1.6 L Lipase Ur Specific [place] Vancomycin Trough 05/17/21 05/17/21 05/17/21 04:15 04:15 05:07 WBC RBC 3.26 L Hgb MCV 98 H RDW 18.9 H Plt Count 114 L Lymph % (Auto) Lymph # (Auto) Seg Neutrophils % Seg Neuts % (Manual) Lymphocytes % (Manual) Seg Neutrophils # Man Lymphocytes # (Manual) PT INR ABG pH ABG pO2 ABG HCO3 ABG Base Excess ABG Hemoglobin Oxyhemoglobin Sodium Potassium Chloride Carbon Dioxide 35 H BUN 5 L Creatinine Glucose 274 H POC Glucose 249 H Lactic Acid Calcium 7.7 L Phosphorus 1.50 L D Magnesium Total Bilirubin Direct Bilirubin AST ALT Alkaline Phosphatase Total Protein Albumin Lipase Ur Specific [place] Vancomycin Trough 05/17/21 05/17/21 05/17/21 11:56 16:29 23:37 WBC RBC Hgb MCV RDW Plt Count Lymph % (Auto) Lymph # (Auto) Seg Neutrophils % Seg Neuts % (Manual) Lymphocytes % (Manual) Seg Neutrophils # Man Lymphocytes # (Manual) PT INR ABG pH ABG pO2 ABG HCO3 ABG Base Excess ABG Hemoglobin Oxyhemoglobin Sodium Potassium Chloride Carbon Dioxide BUN Creatinine Glucose POC Glucose 176 H 219 H 150 H Lactic Acid Calcium Phosphorus Magnesium Total Bilirubin Direct Bilirubin AST ALT Alkaline Phosphatase Total Protein Albumin Lipase Ur Specific [place] Vancomycin Trough 05/18/21 05/18/21 05/18/21 04:00 05:22 09:00 WBC RBC 3.34 L Hgb MCV RDW 18.8 H Plt Count Lymph % (Auto) Lymph # (Auto) Seg Neutrophils % Seg Neuts % (Manual) Lymphocytes % (Manual) Seg Neutrophils # Man Lymphocytes # (Manual) PT INR ABG pH ABG pO2 ABG HCO3 ABG Base Excess ABG Hemoglobin Oxyhemoglobin Sodium Potassium 5.4 H D Chloride 97.5 L Carbon Dioxide 33 H BUN Creatinine 0.4 L Glucose 461 H POC Glucose 181 H Lactic Acid Calcium 7.2 L Phosphorus 5.00 H D Magnesium Total Bilirubin Direct Bilirubin AST ALT Alkaline Phosphatase Total Protein Albumin Lipase Ur Specific [place] Vancomycin Trough 05/18/21 05/18/21 05/18/21 11:16 12:50 16:29 WBC RBC Hgb MCV RDW Plt Count Lymph % (Auto) Lymph # (Auto) Seg Neutrophils % Seg Neuts % (Manual) Lymphocytes % (Manual) Seg Neutrophils # Man Lymphocytes # (Manual) PT INR ABG pH ABG pO2 ABG HCO3 ABG Base Excess ABG Hemoglobin Oxyhemoglobin Sodium Potassium 3.4 L D Chloride Carbon Dioxide 36 H BUN 19 H Creatinine 0.4 L Glucose 231 H POC Glucose 168 H 196 H Lactic Acid Calcium 7.5 L Phosphorus 1.80 L D Magnesium Total Bilirubin Direct Bilirubin AST ALT Alkaline Phosphatase Total Protein Albumin Lipase Ur Specific [place] Vancomycin Trough 05/19/21 05/19/21 05/19/21 00:05 04:08 05:07 WBC RBC Hgb MCV RDW Plt Count Lymph % (Auto) Lymph # (Auto) Seg Neutrophils % Seg Neuts % (Manual) Lymphocytes % (Manual) Seg Neutrophils # Man Lymphocytes # (Manual) PT INR ABG pH ABG pO2 ABG HCO3 ABG Base Excess ABG Hemoglobin Oxyhemoglobin Sodium 146 H Potassium Chloride Carbon Dioxide 35 H BUN 25 H Creatinine 0.4 L Glucose 218 H POC Glucose 164 H 203 H Lactic Acid Calcium 7.2 L Phosphorus Magnesium Total Bilirubin Direct Bilirubin AST ALT Alkaline Phosphatase Total Protein Albumin Lipase Ur Specific [place] Vancomycin Trough 05/19/21 05/19/21 05/19/21 12:16 14:14 17:11 WBC RBC Hgb MCV RDW Plt Count Lymph % (Auto) Lymph # (Auto) Seg Neutrophils % Seg Neuts % (Manual) Lymphocytes % (Manual) Seg Neutrophils # Man Lymphocytes # (Manual) PT INR ABG pH 7.482 H ABG pO2 111.7 H ABG HCO3 31.4 H ABG Base Excess 7.2 H ABG Hemoglobin 11.1 L Oxyhemoglobin Sodium Potassium Chloride Carbon Dioxide BUN Creatinine Glucose POC Glucose 206 H 194 H Lactic Acid Calcium Phosphorus Magnesium Total Bilirubin Direct Bilirubin AST ALT Alkaline Phosphatase Total Protein Albumin Lipase Ur Specific [place] Vancomycin Trough 05/20/21 05/20/21 05/20/21 00:01 04:30 06:09 WBC RBC Hgb MCV RDW Plt Count Lymph % (Auto) Lymph # (Auto) Seg Neutrophils % Seg Neuts % (Manual) Lymphocytes % (Manual) Seg Neutrophils # Man Lymphocytes # (Manual) PT INR ABG pH ABG pO2 ABG HCO3 ABG Base Excess ABG Hemoglobin Oxyhemoglobin Sodium Potassium 3.5 L Chloride Carbon Dioxide BUN 24 H Creatinine 0.3 L Glucose 254 H POC Glucose 209 H 210 H Lactic Acid Calcium 7.5 L Phosphorus 1.90 L D Magnesium Total Bilirubin 1.60 H Direct Bilirubin AST 201 H ALT 170 H Alkaline Phosphatase 169 H Total Protein 5.3 L Albumin 1.9 L Lipase Ur Specific [place] Vancomycin Trough 05/20/21 05/20/21 05/20/21 11:41 16:47 22:21 WBC RBC Hgb MCV RDW Plt Count Lymph % (Auto) Lymph # (Auto) Seg Neutrophils % Seg Neuts % (Manual) Lymphocytes % (Manual) Seg Neutrophils # Man Lymphocytes # (Manual) PT INR ABG pH ABG pO2 ABG HCO3 ABG Base Excess ABG Hemoglobin Oxyhemoglobin Sodium Potassium Chloride Carbon Dioxide BUN Creatinine Glucose POC Glucose 158 H 232 H 211 H Lactic Acid Calcium Phosphorus Magnesium Total Bilirubin Direct Bilirubin AST ALT Alkaline Phosphatase Total Protein Albumin Lipase Ur Specific [place] Vancomycin Trough 05/21/21 05/21/21 05/21/21 00:35 04:00 04:00 WBC RBC 3.28 L Hgb MCV RDW 18.7 H Plt Count 125 L Lymph % (Auto) Lymph # (Auto) Seg Neutrophils % Seg Neuts % (Manual) Lymphocytes % (Manual) Seg Neutrophils # Man Lymphocytes # (Manual) PT INR ABG pH ABG pO2 ABG HCO3 ABG Base Excess ABG Hemoglobin Oxyhemoglobin Sodium Potassium 5.1 H D Chloride 108.7 H Carbon Dioxide BUN 21 H Creatinine 0.2 L Glucose 242 H POC Glucose 230 H Lactic Acid Calcium 7.3 L Phosphorus Magnesium Total Bilirubin Direct Bilirubin AST ALT Alkaline Phosphatase Total Protein Albumin Lipase Ur Specific [place] Vancomycin Trough 05/21/21 05/21/21 05/21/21 05:08 11:47 17:43 WBC RBC Hgb MCV RDW Plt Count Lymph % (Auto) Lymph # (Auto) Seg Neutrophils % Seg Neuts % (Manual) Lymphocytes % (Manual) Seg Neutrophils # Man Lymphocytes # (Manual) PT INR ABG pH ABG pO2 ABG HCO3 ABG Base Excess ABG Hemoglobin Oxyhemoglobin Sodium Potassium Chloride Carbon Dioxide BUN Creatinine Glucose POC Glucose 196 H 139 H 147 H Lactic Acid Calcium Phosphorus Magnesium Total Bilirubin Direct Bilirubin AST ALT Alkaline Phosphatase Total Protein Albumin Lipase Ur Specific [place] Vancomycin Trough 05/21/21 05/21/21 05/22/21 17:57 23:32 04:16 WBC RBC Hgb MCV RDW Plt Count Lymph % (Auto) Lymph # (Auto) Seg Neutrophils % Seg Neuts % (Manual) Lymphocytes % (Manual) Seg Neutrophils # Man Lymphocytes # (Manual) PT INR ABG pH ABG pO2 ABG HCO3 ABG Base Excess ABG Hemoglobin Oxyhemoglobin Sodium Potassium 5.2 H Chloride Carbon Dioxide BUN 19 H Creatinine 0.2 L Glucose 154 H POC Glucose 218 H 185 H Lactic Acid Calcium 7.5 L Phosphorus Magnesium Total Bilirubin 3.00 H Direct Bilirubin 2.3 H AST 437 H ALT 462 H Alkaline Phosphatase 186 H Total Protein 5.5 L Albumin 1.9 L Lipase Ur Specific [place] Vancomycin Trough 05/22/21 05/22/21 05/22/21 04:30 04:30 04:30 WBC RBC Hgb MCV RDW Plt Count Lymph % (Auto) Lymph # (Auto) Seg Neutrophils % Seg Neuts % (Manual) Lymphocytes % (Manual) Seg Neutrophils # Man Lymphocytes # (Manual) PT 19.5 H INR 1.49 H ABG pH ABG pO2 ABG HCO3 ABG Base Excess ABG Hemoglobin Oxyhemoglobin Sodium 134 L Potassium Chloride Carbon Dioxide BUN 19 H Creatinine 0.2 L Glucose 208 H POC Glucose Lactic Acid Calcium 7.2 L Phosphorus 2.40 L D Magnesium Total Bilirubin 2.20 H Direct Bilirubin AST 350 H ALT 496 H Alkaline Phosphatase 167 H Total Protein 4.8 L Albumin 1.7 L Lipase Ur Specific [place] Vancomycin Trough 05/22/21 05/22/21 05/22/21 11:59 17:16 23:07 WBC RBC Hgb MCV RDW Plt Count Lymph % (Auto) Lymph # (Auto) Seg Neutrophils % Seg Neuts % (Manual) Lymphocytes % (Manual) Seg Neutrophils # Man Lymphocytes # (Manual) PT INR ABG pH ABG pO2 ABG HCO3 ABG Base Excess ABG Hemoglobin Oxyhemoglobin Sodium Potassium Chloride Carbon Dioxide BUN Creatinine Glucose POC Glucose 204 H 244 H 226 H Lactic Acid Calcium Phosphorus Magnesium Total Bilirubin Direct Bilirubin AST ALT Alkaline Phosphatase Total Protein Albumin Lipase Ur Specific [place] Vancomycin Trough 05/23/21 05/23/21 05/23/21 05:09 10:15 10:15 WBC RBC Hgb MCV RDW Plt Count Lymph % (Auto) Lymph # (Auto) Seg Neutrophils % Seg Neuts % (Manual) Lymphocytes % (Manual) Seg Neutrophils # Man Lymphocytes # (Manual) PT 16.9 H INR 1.24 H ABG pH ABG pO2 ABG HCO3 ABG Base Excess ABG Hemoglobin Oxyhemoglobin Sodium 131 L Potassium Chloride 97.5 L Carbon Dioxide BUN Creatinine < 0.2 L Glucose 248 H POC Glucose 175 H Lactic Acid Calcium 7.4 L Phosphorus Magnesium 1.60 L Total Bilirubin Direct Bilirubin AST ALT Alkaline Phosphatase Total Protein Albumin Lipase Ur Specific [place] Vancomycin Trough 05/23/21 05/23/21 05/24/21 10:15 21:46 04:16 WBC RBC Hgb MCV RDW Plt Count Lymph % (Auto) Lymph # (Auto) Seg Neutrophils % Seg Neuts % (Manual) Lymphocytes % (Manual) Seg Neutrophils # Man Lymphocytes # (Manual) PT INR ABG pH ABG pO2 ABG HCO3 ABG Base Excess ABG Hemoglobin Oxyhemoglobin Sodium 130 L Potassium 3.5 L Chloride 97.1 L Carbon Dioxide BUN Creatinine 0.2 L Glucose 235 H POC Glucose 190 H Lactic Acid Calcium 6.8 L Phosphorus Magnesium Total Bilirubin 2.30 H Direct Bilirubin 1.6 H AST 161 H ALT 396 H Alkaline Phosphatase 186 H Total Protein 4.7 L Albumin 2.0 L Lipase Ur Specific [place] Vancomycin Trough 05/24/21 05:32 WBC RBC Hgb MCV RDW Plt Count Lymph % (Auto) Lymph # (Auto) Seg Neutrophils % Seg Neuts % (Manual) Lymphocytes % (Manual) Seg Neutrophils # Man Lymphocytes # (Manual) PT INR ABG pH ABG pO2 ABG HCO3 ABG Base Excess ABG Hemoglobin Oxyhemoglobin Sodium Potassium Chloride Carbon Dioxide BUN Creatinine Glucose POC Glucose 208 H Lactic Acid Calcium Phosphorus Magnesium Total Bilirubin Direct Bilirubin AST ALT Alkaline Phosphatase Total Protein Albumin Lipase Ur Specific [place] Vancomycin Trough Chest x-ray: image reviewed (improving infiltrates) Allied health notes reviewed: nursing
--- NOTE | 2021-05-24 13:10 | XRay Report ---
XR chest 1V ap INDICATION / CLINICAL INFORMATION: s/p dobhoff placement. COMPARISON: 05/15/2021 FINDINGS: SUPPORT DEVICES: Enteric tube courses beneath the diaphragm. Right port terminates in the lower SVC. HEART / MEDIASTINUM: Unchanged. LUNGS / PLEURA: Persistent but improving airspace disease. No pneumothorax. ADDITIONAL FINDINGS: No significant additional findings. IMPRESSION: 1. Feeding tube courses beneath the diaphragm with tip not visualized. 2. Improving airspace disease. Signer Name: Mazin Painting MD Signed: 05/24/2021 1:05 PM Workstation Name: [id number]
--- NOTE | 2021-05-24 13:23 | Gastroenterology Progress Note ---
Assessment and Plan Liver enzymes significantly improved yesterday (none today), acute hepatitis panel negative, more likely mild ischemic hepatitis and TPN related, continue to trend but expect continued gradual improvement of the liver enzymes Regarding the right upper quadrant pain, Repeat abdominal ultrasound negative for radiology therefore yesterday added on dicyclomine in case functional related, and patient already on PPI in case gastritis, and with this patient improving today, so continue the dicyclomine - Patient Problems (1) Elevated bilirubin Current Visit: Yes Status: Acute (2) Elevated liver enzymes Current Visit: Yes Status: Acute (3) Sepsis Current Visit: Yes Status: Acute (4) Transaminitis Current Visit: Yes Status: Acute (5) Pancreatic cancer Current Visit: Yes Status: Chronic Qualifiers: Pancreatic malignancy location: body of pancreas Qualified Code(s): C25.1 - Malignant neoplasm of body of pancreas (6) Interstitial lung disease Current Visit: No Status: Acute Subjective Date of service: 05/24/21 Principal diagnosis: Septic shock; Pulm fibrosis; Hypoxemic resp failure; COVID- 19 infxn Interval history: Today patient is reporting right upper quadrant abdominal pain is improving with the medicines we started yesterday LFT trending down yesterday, none today Objective - Constitutional Vitals: Temp Pulse Resp BP Pulse Ox 98.2 F 78 32 H 122/61 99 05/24/21 12:00 05/24/21 12:30 05/24/21 12:30 05/24/21 12:30 05/24/21 12:30 General appearance: other (on bipap) - EENT Eyes: EOM intact - Neck Neck: supple - Gastrointestinal General gastrointestinal: Present: soft, non-tender - Labs CBC & Chem 7: 05/21/21 04:00 05/24/21 04:16 Labs: Laboratory Results - last 24 hr 05/23/21 05/24/21 05/24/21 21:46 04:16 05:32 Sodium 130 L Potassium 3.5 L Chloride 97.1 L Carbon Dioxide 24 Anion Gap 12 BUN 15 Creatinine 0.2 L Estimated GFR > 60 BUN/Creatinine Ratio 75 Glucose 235 H POC Glucose 190 H 208 H Calcium 6.8 L Phosphorus 2.60 Magnesium 2.00
[2021-05-24] MEDS: FUROSEMIDE 20 MG/2 ML INJ IV SCH (13:36)
[2021-05-25] MEDS: INSULIN LISPRO 100 UNIT/ML SUB-Q SCH ×5 (00:26→23:39)
[2021-05-25] MEDS: ENOXAPARIN 40 MG/0.4 ML INJ SUB-Q SCH (00:44)
[2021-05-25] MEDS: INSULIN GLARGINE 100 UNITS/ML SUB-Q SCH ×2 (00:45→21:39)
[2021-05-25] MEDS: DICYCLOMINE 10 MG CAP PO SCH ×5 (00:45→21:40)
[2021-05-25] MEDS: MORPHINE 2 MG/1 ML INJ IV PRN ×4 (00:49→23:30)
[2021-05-25] MEDS: HALOPERIDOL LACTATE 5 MG/1 ML INJ IV PRN ×3 (03:37→19:55)
[2021-05-25 04:57] LABS: Hematocrit 31.6 % (30.3-42.9); Hemoglobin 10.3 gm/dl (10.1-14.3); Mean Corpuscular HGB Conc 33 % (30-34); Mean Corpuscular Volume 96 fl (79-97); Platelet Count 142 K/mm3 (140-440); Red Blood Count 3.28 M/mm3 (3.65-5.03); Red Cell Distribution Width 19.9 % (13.2-15.2)
[2021-05-25 05:11] LABS: Blood Urea Nitrogen 15 mg/dL (7-17); Calcium 7.6 mg/dL (8.4-10.2); Hemolysis Index 5
[2021-05-25 05:13] LABS: BUN/Creatinine Ratio 75
[2021-05-25] MEDS: dexAMETHasone 4 MG/ML VIAL IV SCH (09:15)
[2021-05-25] MEDS: PANTOPRAZOLE 40 MG INJ IV SCH (09:15)
[2021-05-25] MEDS: FUROSEMIDE 20 MG/2 ML INJ IV SCH (09:15)
--- NOTE | 2021-05-25 09:39 | Gastroenterology Progress Note ---
Assessment and Plan Liver enzymes significantly improved 05/23 Acute hepatitis panel negative, more likely mild ischemic hepatitis and TPN related, continue to trend but expect continued gradual improvement of the liver enzymes Regarding the right upper quadrant pain, Repeat abdominal ultrasound negative for radiology therefore yesterday added on dicyclomine in case functional related, and patient already on PPI in case gastritis, and with this patient im proving today, so continue the dicyclomine Regarding SOB, broad differential diagnosis, spoke with primary team who will manage Patient improving form GI perspective, GI will sign off. - Patient Problems (1) Elevated bilirubin Current Visit: Yes Status: Acute (2) Elevated liver enzymes Current Visit: Yes Status: Acute (3) Sepsis Current Visit: Yes Status: Acute (4) Transaminitis Current Visit: Yes Status: Acute (5) Pancreatic cancer Current Visit: Yes Status: Chronic Qualifiers: Pancreatic malignancy location: body of pancreas Qualified Code(s): C25.1 - Malignant neoplasm of body of pancreas (6) Interstitial lung disease Current Visit: No Status: Acute Subjective Date of service: 05/25/21 Principal diagnosis: Septic shock; Pulm fibrosis; Hypoxemic resp failure; COVID- 19 infxn Interval history: Today patient is reporting right upper quadrant abdominal pain is still improving however, she is quite short of breath and tachypnic; I spoke with hospitalist and patient was just seen and evaluated. no LFT today Objective - Constitutional Vitals: Temp Pulse Resp BP Pulse Ox 98.3 F 101 H 38 H 97/70 85 05/25/21 08:00 05/25/21 07:00 05/25/21 07:00 05/25/21 07:00 05/25/21 07:00 General appearance: other (tachypnic) - EENT ENT: hearing intact - Neck Neck: supple - Cardiovascular Rhythm: other (tachy) - Gastrointestinal General gastrointestinal: Present: soft, non-tender - Labs CBC & Chem 7: 05/25/21 04:25 05/25/21 04:25 Labs: Laboratory Results - last 24 hr 05/25/21 05/25/21 05/25/21 04:25 04:25 05:43 WBC 11.7 H RBC 3.28 L Hgb 10.3 Hct 31.6 MCV 96 MCH 32 MCHC 33 RDW 19.9 H Plt Count 142 Sodium 135 L Potassium 3.4 L Chloride 100.3 Carbon Dioxide 25 Anion Gap 13 BUN 15 Creatinine 0.2 L Estimated GFR > 60 BUN/Creatinine Ratio 75 Glucose 105 H POC Glucose 104 Calcium 7.6 L
[2021-05-25] MEDS: BUDESONIDE 0.5 MG/2 ML NEBU IH SCH ×2 (10:07→20:20)
[2021-05-25] MEDS: ARFORMOTEROL 15 MCG/2 ML NEBU IH SCH ×2 (10:08→20:20)
--- NOTE | 2021-05-25 10:35 | Progress Note ---
Assessment and Plan Assessment and plan: This is a 48-year-old female with COPD, pancreatic cancer with radiation s/p pancreatic stent placement, pulmonary fibrosis, chronic respiratory failure on 2 L nasal cannula admitted with sepsis, transaminitis and lactic acidosis. Neuro: NAD -Avoid delirium -Reorientation as needed -Maintain sleep-wake cycle CV: Hypotension, h/o HTN -Hold home htn medications -s/p vasopressor support with levo and vasopressin -BP monitoring per protocol -CCM consulted, appreciate recommendations -Hold home htn medications -s/p IV Lasix X 3days Respiratory: h/o pulmonary fibrosis, acute on chronic respiratory failure on home O2 of 2 L nasal cannula -Supplemental oxygen as needed -Tessalon Perles as needed for cough -SPO2 monitoring -Pulmonary hygiene -Bipap q hs and prn -Optiflow as tolerated -Wean FiO2 as tolerated -Pulmonary hygiene GI: Transaminitis, protein calorie malnutrition, biliary dilation, r/o cholangitis, h/o pancreatic cancer s/p stent placement -CT abdomen/pelvis showed pancreatic cancer with metallic stent with possible occlusion, mild pelvic fluid and mild colonic thickening -GI consulted, patient recommendations -MRCP pending-> plan for once respiratory status stable -If stent occlusion/biliary obstruction would recommend IR consult for PTC drain per GI -TPN -start cyclic tube feedings -ST evaluation -PPI -BR to start once taking p.o. -24-hour +390 -Acute hepatitis panel negative -Trend LFTs -Abd US shows findings similar to hepatomegaly and steatosis without significant abnormalities in the right quadrant : Hypophosphatemia -Strict intake and output -Purewick in place -Daily weights -Renally dose meds, avoid nephrotoxins -Replace Phosphate Endo: Hyperglycemia, s/p hypoglycemia -Hypoglycemia protocol -Avoid hypoglycemia -SSI every 6 hours -Lantus, titrate as needed ID: Septic shock, Lactic acidosis (improving) -Blood cultures x2 no growth to date -Patient has leukocytosis, hypotension -s/p IV meropenem -Monitor WBC and fever curve -ID consulted, appreciated recommendation -COVID PCR (-) Heme: Thrombocytopenia, Elevated INR -Trend CBC -Transfuse for hemoglobin less than 7 -SCD to bilateral lower extremities while in bed -Lovenox subcu -Monitor platelets Oncology: h/o pancreatic head cancer -F/U with outpatient oncologist -Currently on radiation -Not a surgical candidate per GI -Right chest post not accessed History Interval history: This is a 51-year-old female with COPD, pancreatic cancer and radiation, s/p pancreatic stent placement, pulmonary fibrosis, hypertension and chronic respiratory failure on 2 L oxygen via nasal cannula who presented to emergency department on 05/11 with complaints of right upper quadrant pain which started approximately at 0200 with nausea and vomiting. Work-up in the emergency department included a CTA chest which showed no pulmonary embolism, mild fluid- filled esophagus and distended stomach with bilateral interstitial opacity in the chest, and CT abdomen/pelvis with contrast which showed persistent pancreatic carcinoma with indwelling metallic stent which is suspected to be occluded. Lab work revealed leukocytosis, transaminitis and lactic acidosis. Patient became hypotensive in the emergency department and required 3 L of IV fluid and was eventually started on vasopressors after placement of femoral central line. Patient was started on empiric antibiotics. Admitted to the hospitalist service with consults to GI and CCM for transaminitis, possible sepsis, and lactic acidosis. 05/12: Patient remains on high-dose Levophed and vasopressin. Given 1 L LR bolus. GI would like an MRCP to be conducted which has been ordered. Patient cleared for sips of water. Added Tessalon due to severe cough. Potassium repleted. Covid PCR negative. 05/13: Remains on Levophed and vasopressin has been off since yesterday evening. Started on stress dose steroids. MRCP pending. Hypokalemia, hypomagnesemia and hypophosphatemia repleted. Liver enzymes trending down. Started on D5 norm al saline yesterday. 05/14: Patient with worsen respiratory status this am, tachypneic with increased O2 requirement. On full support on the Bipap this am with worsening diffuse bilateral opacities on CXR, s/p X1 dose of IV lasix overnight. Patient remains afebrile with no leukocytosis. Will continue IV Lasix X3 doses, f/u CXR in the am. D/W CCM due to patient worsening respiratory status hold on MRCP for today. Patient is off Levophed this am, leave pressors on standby might need to be put back on low dose pressors with IV diuretic. Patient also noted with Rt. fem CVC which was inserted in the ED, most likely due to be change, unsuccessfult PICC by IVT today and patient is refusing Port access at this time. 12/21: Patient remains on continuous Bipap overnight, desat when bipap is remove d for mouth care. Plan to wean Fio2 as tolerated for SPO2 goal above 90%. Febrile overnight, TMAX 101.4, on IV abx zosyn, repeat blood culture ordered. Low K and phosph repleted, repeat labs in the am. 05/16: Patient back on full support on the Bipap, still not tolerating FiO2 wean, patient desat in the 80s. D/w CCM plan to continue continuous bipap for now, patient going on over 4 days with no nutrition plan to initiate TPN tomorrow. D10w gtt added for hypoglycemia. Patient platelet continue to steadily drop, given patient's history with continue AC for now, H&H is stable, no s/s of any active bleeding. Electrolytes repleted, will continue to trend CBC, BMP, mg, and phos. MRCP canceled, plan to reorder once patient's respiratory status is more stable. 05/17: Patient remains on continuous Bipap. Patient remains on low dose Levophed, plan to wean off pressors as tolerated for a MAP above 65. Clinimix initiated overnight, plan to start TPN tonight. Hyperglycemic overnight, SSI was initiated. Low phos repleted, repeat lab in the am. 05/18: Down to 60% FIo2 on the Bipap, SPO2 above 97%. Off pressros this am, TPN is running. Patient is now hyperglycemic, SSI adjusted. Consider basal dose, lantus if hyperglycemia persist. This am labs noted, hyperkalemia and really high glucose noted totally different from normal trend, orders placed for redraw. 05/19: Overnight events noted. Started on PRN haldol for agitation. Patient placed on heated high Flow at 100%, 40L SPO2 at 100%. Continue to wean Fio2 as tolerated for SPO2 for SPO2 above 92%. Continue TPN for now. Patient still hype rglycemic basal dose lantus added Qhs. 05/20: Patient is tolerating HHFL NC, SPO2 above 95%. Continue HHFL NC during and Bipap at night. Still on TPN for nutrition, hyperglycemia persists- basal insulin increased. Low K and phosp was repleted, repeat lab in the am. 05/21: Patient unable to tolerate OptiFlow for more than couple hours and was placed back on BiPAP due to desaturation. Patient remains on TPN for nutrition which was held today due to hyperkalemia. P.m. BMP ordered but not collected. Patient refused to have port accessed and PICC line ordered. Down grading to [facility] status 05/21 abdominal ultrasound shows findings of emergency megaly and steatosis without other significant abnormality in the right upper quadrant. ST eval ordered and Ntr consult for cyclic TF. midline ordered 05/23/ Patient with acute on chronic resp failure, COPD, pancreatic cancer. She has been transferred to [facility]. She is on BIPAP Hypomag. Replace and recheck in am 05/24/21 Patient with acute on chronic resp failure. Still on BIPAP To start tube feeding 05/25/21 Patient with acute on chronic respiratory failure She desaturated down to Oxygen sat 85% today Will order CT Angio to r/o pulmonary embolism History Interval history: Patient desat this morning, more shortness of breath Hospitalist Physical - Physical exam Narrative exam: General appearance: Present: no acute distress, obese, On BIPAP - EENT Eyes: Present: PERRL, EOM intact ENT: hearing intact, clear oral mucosa, dentition normal - Neck Neck: Present: normal ROM - Respiratory Respiratory effort: normal Respiratory: bilateral: diminished - Cardiovascular Rhythm: regular Heart Sounds: Present: S1 & S2. Absent: systolic murmur, diastolic murmur - Extremities Extremities: no ischemia, pulses intact, pulses symmetrical, No edema, normal temperature, normal color Peripheral Pulses: within normal limits - Abdominal General gastrointestinal: soft, non-tender, non-distended, normal bowel sounds - Integumentary Integumentary: Present: warm, dry - Psychiatric Psychiatric: appropriate mood/affect, cooperative - Neurologic Neurologic: CNII-XII intact, moves all extremities - Constitutional Vitals: Temp Pulse Resp BP Pulse Ox 98.3 F 77 21 97/70 85 05/25/21 08:00 05/25/21 10:08 05/25/21 10:08 05/25/21 07:00 05/25/21 07:00 General appearance: Present: no acute distress, obese Results - Labs CBC & Chem 7: 05/25/21 04:25 05/25/21 04:25 Labs: Laboratory Last Values WBC 11.7 K/mm3 (4.5-11.0) H 05/25/21 04:25 RBC 3.28 M/mm3 (3.65-5.03) L 05/25/21 04:25 Hgb 10.3 gm/dl (10.1-14.3) 05/25/21 04:25 Hct 31.6 % (30.3-42.9) 05/25/21 04:25 MCV 96 fl (79-97) 05/25/21 04:25 MCH 32 pg (28-32) 05/25/21 04:25 MCHC 33 % (30-34) 05/25/21 04:25 RDW 19.9 % (13.2-15.2) H 05/25/21 04:25 Plt Count 142 K/mm3 (140-440) 05/25/21 04:25 Lymph % (Auto) 7.4 % (13.4-35.0) L 05/15/21 04:45 [place] % (Auto) 6.7 % (0.0-7.3) 05/15/21 04:45 Eos % (Auto) 4.0 % (0.0-4.3) 05/15/21 04:45 Baso % (Auto) 0.7 % (0.0-1.8) 05/15/21 04:45 Lymph # (Auto) 0.6 K/mm3 (1.2-5.4) L 05/15/21 04:45 [place] # (Auto) 0.6 K/mm3 (0.0-0.8) 05/15/21 04:45 Eos # (Auto) 0.3 K/mm3 (0.0-0.4) 05/15/21 04:45 Baso # (Auto) 0.1 K/mm3 (0.0-0.1) 05/15/21 04:45 Add Manual Diff Complete 05/12/21 04:08 Total Counted 200 05/12/21 04:08 Seg Neutrophils % 81.2 % (40.0-70.0) H 05/15/21 04:45 Seg Neuts % (Manual) 85.5 % (40.0-70.0) H 05/12/21 04:08 Band Neutrophils % 8.5 % 05/12/21 04:08 Lymphocytes % (Manual) 2.0 % (13.4-35.0) L 05/12/21 04:08 Monocytes % (Manual) 3.0 % (0.0-7.3) 05/12/21 04:08 Eosinophils % (Manual) 1.0 % (0.0-4.3) 05/12/21 04:08 Nucleated RBC % Not Reportable 05/12/21 04:08 Seg Neutrophils # 6.7 K/mm3 (1.8-7.7) 05/15/21 04:45 Seg Neutrophils # Man 19.5 K/mm3 (1.8-7.7) H 05/12/21 04:08 Band Neutrophils # 1.9 K/mm3 05/12/21 04:08 Lymphocytes # (Manual) 0.5 K/mm3 (1.2-5.4) L 05/12/21 04:08 Abs React Lymphs (Man) 0.0 K/mm3 05/12/21 04:08 Monocytes # (Manual) 0.7 K/mm3 (0.0-0.8) 05/12/21 04:08 Eosinophils # (Manual) 0.2 K/mm3 (0.0-0.4) 05/12/21 04:08 Basophils # (Manual) 0.0 K/mm3 (0.0-0.1) 05/12/21 04:08 Metamyelocytes # 0.0 K/mm3 05/12/21 04:08 Myelocytes # 0.0 K/mm3 05/12/21 04:08 Promyelocytes # 0.0 K/mm3 05/12/21 04:08 Blast Cells # 0.0 K/mm3 05/12/21 04:08 WBC Morphology Not Reportable 05/12/21 04:08 Hypersegmented Neuts Not Reportable 05/12/21 04:08 Hyposegmented Neuts Not Reportable 05/12/21 04:08 Hypogranular Neuts Not Reportable 05/12/21 04:08 Smudge Cells Not Reportable 05/12/21 04:08 Toxic Granulation Not Reportable 05/12/21 04:08 Toxic Vacuolation Not Reportable 05/12/21 04:08 Dohle Bodies Not Reportable 05/12/21 04:08 Pelger-Huet Anomaly Not Reportable 05/12/21 04:08 Elizabeth Rods Not Reportable 05/12/21 04:08 Platelet Estimate Consistent w auto 05/12/21 04:08 Clumped Platelets Not Reportable 05/12/21 04:08 Plt Clumps, EDTA Not Reportable 05/12/21 04:08 Large Platelets Not Reportable 05/12/21 04:08 Giant Platelets Not Reportable 05/12/21 04:08 Platelet Satelliting Not Reportable 05/12/21 04:08 Plt Morphology Comment Not Reportable 05/12/21 04:08 RBC Morphology Not Reportable 05/12/21 04:08 Dimorphic RBCs Not Reportable 05/12/21 04:08 Polychromasia Not Reportable 05/12/21 04:08 Hypochromasia Not Reportable 05/12/21 04:08 Poikilocytosis Not Reportable 05/12/21 04:08 Anisocytosis 1+ 05/12/21 04:08 Microcytosis Not Reportable 05/12/21 04:08 Macrocytosis Not Reportable 05/12/21 04:08 Spherocytes Not Reportable 05/12/21 04:08 Pappenheimer Bodies Not Reportable 05/12/21 04:08 Sickle Cells Not Reportable 05/12/21 04:08 Target Cells Not Reportable 05/12/21 04:08 Tear Drop Cells Not Reportable 05/12/21 04:08 Ovalocytes Not Reportable 05/12/21 04:08 Helmet Cells Not Reportable 05/12/21 04:08 [place]-Combine Bodies Not Reportable 05/12/21 04:08 [place] Rings Not Reportable 05/12/21 04:08 [place] Cells Not Reportable 05/12/21 04:08 Bite Cells Not Reportable 05/12/21 04:08 Crenated Cell Not Reportable 05/12/21 04:08 Elliptocytes Not Reportable 05/12/21 04:08 Acanthocytes (Spur) Not Reportable 05/12/21 04:08 Rouleaux Not Reportable 05/12/21 04:08 Hemoglobin C Crystals Not Reportable 05/12/21 04:08 Schistocytes Not Reportable 05/12/21 04:08 Malaria parasites Not Reportable 05/12/21 04:08 [place]ir Bodies Not Reportable 05/12/21 04:08 Hem Pathologist Commnt No 05/12/21 04:08 PT 16.9 Sec. (12.2-14.9) H 05/23/21 10:15 INR 1.24 (0.87-1.13) H 05/23/21 10:15 ABG pH 7.482 pH Units (7.350-7.450) H 05/19/21 14:14 ABG pCO2 42.9 mm Hg 05/19/21 14:14 ABG pO2 111.7 mm Hg (80.0-90.0) H 05/19/21 14:14 ABG HCO3 31.4 mmol/L (20.0-26.0) H 05/19/21 14:14 ABG O2 Saturation 98.2 % (95.0-99.0) 05/19/21 14:14 ABG O2 Content 15.2 (0.0-44) 05/19/21 14:14 ABG Base Excess 7.2 mmol/L (-2.0-3.0) H 05/19/21 14:14 ABG Hemoglobin 11.1 gm/dl (12.0-16.0) L 05/19/21 14:14 ABG Carboxyhemoglobin 1.1 % (0.0-5.0) 05/19/21 14:14 ABG Methemoglobin 0.6 % (0.0-1.5) 05/19/21 14:14 Oxyhemoglobin 96.4 % (95.0-99.0) 05/19/21 14:14 FiO2 100 % 05/19/21 14:14 Sodium 135 mmol/L (137-145) L 05/25/21 04:25 Potassium 3.4 mmol/L (3.6-5.0) L 05/25/21 04:25 Chloride 100.3 mmol/L (98-107) 05/25/21 04:25 Carbon Dioxide 25 mmol/L (22-30) 05/25/21 04:25 Anion Gap 13 mmol/L 05/25/21 04:25 BUN 15 mg/dL (7-17) 05/25/21 04:25 Creatinine 0.2 mg/dL (0.6-1.2) L 05/25/21 04:25 Estimated GFR > 60 ml/min 05/25/21 04:25 BUN/Creatinine Ratio 75 % 05/25/21 04:25 Glucose 105 mg/dL (65-100) H 05/25/21 04:25 POC Glucose 104 mg/dL (70-105) 05/25/21 05:43 Hemoglobin A1c 5.2 % (4-6) 05/12/21 04:08 Lactic Acid 3.30 mmol/L (0.7-2.0) H* 05/12/21 Unknown Calcium 7.6 mg/dL (8.4-10.2) L 05/25/21 04:25 Phosphorus 2.60 mg/dL (2.5-4.5) 05/24/21 04:16 Magnesium 2.00 mg/dL (1.7-2.3) 05/24/21 04:16 Total Bilirubin 2.30 mg/dL (0.1-1.2) H 05/23/21 10:15 Direct Bilirubin 1.6 mg/dL (0-0.2) H 05/23/21 10:15 Indirect Bilirubin 0.7 mg/dL 05/23/21 10:15 AST 161 units/L (5-40) H 05/23/21 10:15 ALT 396 units/L (7-56) H 05/23/21 10:15 Alkaline Phosphatase 186 units/L (35-129) H 05/23/21 10:15 Total Protein 4.7 g/dL (6.3-8.2) L 05/23/21 10:15 Albumin 2.0 g/dL (3.9-5) L 05/23/21 10:15 Albumin/Globulin Ratio 0.7 % 05/23/21 10:15 Triglycerides 90 mg/dL (2-149) 05/23/21 10:15 Lipase 3 units/L (13-60) L 05/11/21 05:43 Urine Color [place] (Yellow) 05/11/21 11:18 Urine Turbidity Clear (Clear) 05/11/21 11:18 Urine pH 6.0 (5.0-7.0) 05/11/21 11:18 Ur Specific [place] 1.035 (1.003-1.030) H 05/11/21 11:18 Urine Protein 100 mg/dl mg/dL (Negative) 05/11/21 11:18 Urine Glucose (UA) Neg mg/dL (Negative) 05/11/21 11:18 Urine Ketones Neg mg/dL (Negative) 05/11/21 11:18 Urine Blood Neg (Negative) 05/11/21 11:18 Urine Nitrite Neg (Negative) 05/11/21 11:18 Urine Bilirubin Neg (Negative) 05/11/21 11:18 Urine Urobilinogen < 2.0 mg/dL (<2.0) 05/11/21 11:18 Ur Leukocyte Esterase Neg (Negative) 05/11/21 11:18 Urine WBC (Auto) 2.0 /HPF (0.0-6.0) 05/11/21 11:18 Urine RBC (Auto) 1.0 /HPF (0.0-6.0) 05/11/21 11:18 Urine Mucus Few /HPF 05/11/21 11:18 Vancomycin Trough 25.3 ug/mL (5.0-20.0) H 05/14/21 15:20 Coronavirus (PCR) Negative (Negative) 05/12/21 10:16 Hepatitis A IgM Ab Non-reactive (NonReactive) 05/12/21 12:30 Hep Bs Antigen Nonreactive (Negative) 05/12/21 12:30 Hep B Core IgM Ab Non-reactive (NonReactive) 05/12/21 12:30 Hepatitis C Antibody Non-reactive (NonReactive) 05/12/21 12:30 Rivas/IV: Voiding Method Indwelling Catheter Active Medications - Current Medications Current Medications: Generic Name Dose Route Start Last Admin Trade Name Freq PRN Reason Stop Dose Admin Acetaminophen 650 mg 05/11/21 21:40 05/14/21 20:06 Acetaminophen 325 Mg Tab PO 650 mg Q4H PRN Administration Pain MILD(1-3)/Fever >100.5/WOODS Lipase/Protease/Amylase 1 each 05/22/21 16:30 Lipase 10,500/Protease 25,000/Amylase 43,750 (Units) Dr Baker FEEDTUBE PRN PRN For Clogged Feeding Tube Arformoterol Tartrate 15 mcg 05/12/21 08:00 05/25/21 10:08 Arformoterol 15 Mcg/2 Ml Nebu IH 15 mcg Q12HRT ABRAHAN Administration Benzonatate 100 mg 05/12/21 15:53 05/23/21 22:02 Benzonatate 100 Mg Cap PO 100 mg Q8HR PRN Administration Cough Budesonide 0.5 mg 05/12/21 08:00 05/25/21 10:07 Budesonide 0.5 Mg/2 Ml Nebu IH 0.5 mg Q12HRT ABRAHAN Administration Dexamethasone 6 mg 05/16/21 13:00 05/25/21 09:15 Dexamethasone 4 Mg/Ml Vial IV 6 mg Q24HR ABRAHAN Administration Dextrose 50 ml 05/12/21 11:57 05/16/21 08:30 Dextrose 50% In Water (25gm) 50 Ml Syringe IV 20 ml Q30MIN PRN Administration Hypoglycemia Protocol Dicyclomine HCl 10 mg 05/23/21 14:00 05/25/21 09:15 Dicyclomine 10 Mg Cap PO 10 mg QID ABRAHAN Administration Enoxaparin Sodium 40 mg 05/14/21 22:00 05/25/21 00:44 Enoxaparin 40 Mg/0.4 Ml Inj SUB-Q 40 mg QDAY@2200 ABRAHAN Administration Protocol Furosemide 20 mg 05/24/21 14:00 05/25/21 09:15 Furosemide 20 Mg/2 Ml Inj IV 05/27/21 13:59 20 mg QDAY ABRAHAN Administration Haloperidol Lactate 5 mg 05/19/21 15:00 05/25/21 03:37 Haloperidol Lactate 5 Mg/1 Ml Inj IV 5 mg Q8H PRN Administration Agitation Insulin Glargine 20 units 05/22/21 22:00 05/25/21 00:45 Insulin Glargine 100 Units/Ml SUB-Q 20 units QHS ABRAHAN Administration Insulin Human Lispro 0 unit 05/17/21 12:00 05/25/21 06:40 Insulin Lispro 100 Unit/Ml SUB-Q Not Given Q6HR [facility] Protocol Metoclopramide HCl 10 mg 05/11/21 21:40 Metoclopramide 10 Mg/2 Ml Inj IV Q6H PRN Nausea And Vomiting Morphine Sulfate 2 mg 05/11/21 21:40 05/25/21 09:16 Morphine 2 Mg/1 Ml Inj IV 2 mg Q4H PRN Administration Pain, Moderate (4-6) Ondansetron HCl 4 mg 05/11/21 21:40 05/15/21 09:57 Ondansetron 4 Mg/2 Ml Inj IV 4 mg Q8H PRN Administration Nausea And Vomiting Pantoprazole Sodium 40 mg 05/15/21 10:00 05/25/21 09:15 Pantoprazole 40 Mg Inj IV 40 mg QDAY ABRAHAN Administration Simple Syrup 15 ml 05/22/21 16:30 Simple Syrup 15 Ml FEEDTUBE PRN PRN Hypoglycemia Simple Syrup 30 ml 05/22/21 16:30 Simple Syrup 15 Ml FEEDTUBE PRN PRN Hypoglycemia Sodium Bicarbonate 325 mg 05/22/21 16:30 Sodium Bicarbonate 325 Mg Tab FEEDTUBE PRN PRN For Clogged Feeding Tube Sodium Chloride 10 ml 05/11/21 22:00 05/25/21 00:52 Sodium Chloride 0.9% 10 Ml Flush Syringe IV 10 ml BID ABRAHAN Administration Sodium Chloride 10 ml 05/11/21 21:40 05/23/21 21:00 Sodium Chloride 0.9% 10 Ml Flush Syringe IV 10 ml PRN PRN Administration LINE FLUSH Nutrition/Malnutrition Assess - Dietary Evaluation Nutrition/Malnutrition Findings: Nutrition Notes Start: 05/13/21 09:47 Freq: Status: Active Protocol: Document 05/24/21 12:59 ZENY (Rec: 05/24/21 13:07 ZENY [id number]) Nutrition Notes Initial or Follow up Brief Note Current Diet NPO. Subjective/Other Information RD consult for request on write/manage TF. TF ordered. I spoke with MD, ans stated that TPN will be discontinued today, also notified the pharmacy. Nutrition Intervention Nutrition Support: Start Vital AF 1.2 Po @ 42 ml /hr. Flush 130 ml Kcal 1,220 Protein (gm) 76 Carbohydrates (gm) 112 Fat (gm) 55 Fluid (mL) 825 Fiber (gm) 5 % RDI: 76% Kcal; 76% AA. Goal #1 Provide at least 75% of energy /protein needs through Enteral Nutrition during LOS. Follow-Up By: 05/25/21 Additional Comments Continue monitoring TF tolerance.
[2021-05-25] MEDS ORDERED: ENOXAPARIN 100 MG/1 ML INJ SUB-Q SCH ×2 (11:00→22:00)
[2021-05-25] MEDS: ENOXAPARIN 80 MG/0.8 ML INJ SUB-Q SCH ×2 (12:24→21:40)
--- NOTE | 2021-05-25 13:10 | Progress Note ---
Assessment and Plan Septic shock possible hepatobiliary source Lactic acidosis h/o pulmonary fibrosis, Acute on chronic respiratory failure on home O2 of 2 L nasal cannula Transaminitis, biliary dilation, r/o cholangitis Hyperchloremia, metabolic acidosis, hypokalemia Hypoglycemia h/o pancreatic head cancer- chemoradiation therapy h/o Hypertension - prn CXR's and ABG's at this point - continue gentle diuresis (lasix 20 mg IV daily X 2 more days) - continue almaraz for strict I's & O's while critically ill - tapered Dexamethasone to 4mg IV daily - enteral nutrition nutrition at goal rate as tolerated - continue to try daytime HFNC if tolerates - conservative volume management - continue care as below otherwise; - continue BIPAP scheduled qhs with prn daytime use - intubate if decompensates - prn vasopressors for target MAP > 65 mmHg - MRCP pending as she remains tenuous from a respiratory standpoint - continue anti-infective's; de-escalate per ID recommendations - continue accuchecks with glycemic control per SSI (While critically ill target blood glucose of 140-180 mg/dL; avoid hypoglycemia) - continue to wean supplemental oxygen for target O2 sat's > 90% acutely - aspiration precautions - bronchodilators with pulmonary hygiene per RT - avoid nephrotoxins, renally dose all medications - prn analgesia per pain score - Maintenance of sleep-wake cycle, avoid delirium - G.I. & VTE prophylaxis - PT/OT/ROM exercises - mobility protocols for pressure ulcer prophylaxis - Monitor hemodynamics closely - continue other care per attending / other consultants - discharge planning ongoing concurrently .... Re-evaluate in am & prn CONDITION: CRITICAL PROGNOSIS: GUARDED CODE STATUS: FULL CODE The high probability of a clinically significant, sudden or life-threatening deterioration of the [respiratory, cardiovascular, GI & neurologic] system(s) required my full and direct attention, intervention and personal management. The aggregate critical care time was [32] minutes without overlap. Time includes spent on; [x] Data Review and interpretation [x] Patient assessment and monitoring of vital signs [x] Documentation [x] Medication orders and management Subjective Date of service: 05/25/21 Principal diagnosis: Septic shock; Pulm fibrosis; Hypoxemic resp failure; COVID- 19 infxn Interval history: Patient is seen today for: Septic shock; pulmonary fibrosis; Acute on chronic hypoxemic respiratory failure; Transaminitis; h/o pancreatic head cancer; HTN Seen and examined at bedside; 24hour events reviewed; nursing and respiratory care staff consulted; no adverse overnight events reported to me; resting in bed; BIPAP dependent again last 24 hours; tolerating tube feeds though and denies N/V/F/C Objective Vital Signs - 12hr 05/25/21 05/25/21 05/25/21 01:30 02:00 02:30 Temperature Pulse Rate 62 82 72 Pulse Rate [ Bilateral Throughout] Respiratory 17 27 H 24 Rate Respiratory Rate [Bilateral Throughout] Blood Pressure 113/75 99/65 99/65 O2 Sat by Pulse 99 98 100 Oximetry 05/25/21 05/25/21 05/25/21 03:00 03:30 04:00 Temperature 97.6 F Pulse Rate 78 86 73 Pulse Rate [ Bilateral Throughout] Respiratory 21 20 22 Rate Respiratory Rate [Bilateral Throughout] Blood Pressure 104/61 104/61 102/55 O2 Sat by Pulse 99 98 97 Oximetry 05/25/21 05/25/21 05/25/21 04:30 05:00 05:30 Temperature Pulse Rate 98 H 92 H 78 Pulse Rate [ Bilateral Throughout] Respiratory 25 H 24 18 Rate Respiratory Rate [Bilateral Throughout] Blood Pressure 102/55 121/67 121/67 O2 Sat by Pulse 96 97 96 Oximetry 05/25/21 05/25/21 05/25/21 06:00 06:30 07:00 Temperature Pulse Rate 75 94 H 101 H Pulse Rate [ Bilateral Throughout] Respiratory 20 29 H 38 H Rate Respiratory Rate [Bilateral Throughout] Blood Pressure 97/60 97/60 97/70 O2 Sat by Pulse 96 90 85 Oximetry 05/25/21 05/25/21 05/25/21 08:00 10:07 10:08 Temperature 98.3 F Pulse Rate 89 Pulse Rate [ 77 Bilateral Throughout] Respiratory 28 H Rate Respiratory 21 Rate [Bilateral Throughout] Blood Pressure 106/83 O2 Sat by Pulse 96 Oximetry 05/25/21 12:00 Temperature 98.1 F Pulse Rate Pulse Rate [ Bilateral Throughout] Respiratory Rate Respiratory Rate [Bilateral Throughout] Blood Pressure O2 Sat by Pulse Oximetry Constitutional: no acute distress, other (mildly increased respiratory effort at rest ) Eyes: non-icteric ENT: oropharynx moist Neck: supple, no lymphadenopathy, no JVD Effort: mildly labored Ascultation: Bilateral: diminished breath sounds, rales (posterior bases) Percussion: Bilateral: not dull Cardiovascular: regular rate and rhythm, other (S1,S2) Gastrointestinal: normoactive bowel sounds, hypoactive bowel sounds, soft, non- distended (protuberant) Integumentary: normal Extremities: no cyanosis, no edema, pulses normal, other (right femoral CVL) Neurologic: normal mental status, non-focal exam, pupils equal and round, other (somnolent) Psychiatric: mood appropriate, affect normal, other (somnolent) CBC and BMP: 05/25/21 04:25 05/25/21 04:25 ABG, PT/INR, D-dimer: ABG ABG pH 7.482 pH Units (7.350-7.450) H 05/19/21 14:14 ABG pCO2 42.9 mm Hg 05/19/21 14:14 ABG pO2 111.7 mm Hg (80.0-90.0) H 05/19/21 14:14 ABG O2 Saturation 98.2 % (95.0-99.0) 05/19/21 14:14 PT/INR, D-dimer PT 16.9 Sec. (12.2-14.9) H 05/23/21 10:15 INR 1.24 (0.87-1.13) H 05/23/21 10:15 Abnormal lab findings: Abnormal Labs 05/11/21 05/11/21 05/11/21 05:43 05:43 05:43 WBC RBC Hgb MCV 98 H RDW 17.7 H Plt Count Lymph % (Auto) 10.8 L Lymph # (Auto) 0.6 L Seg Neutrophils % 84.1 H Seg Neuts % (Manual) Lymphocytes % (Manual) Seg Neutrophils # Man Lymphocytes # (Manual) PT 16.0 H INR 1.16 H ABG pH ABG pO2 ABG HCO3 ABG Base Excess ABG Hemoglobin Oxyhemoglobin Sodium Potassium Chloride Carbon Dioxide 21 L BUN 4 L Creatinine 0.4 L Glucose POC Glucose Lactic Acid Calcium 8.3 L Phosphorus Magnesium Total Bilirubin 2.10 H Direct Bilirubin 1.4 H AST 335 H ALT 57 H Alkaline Phosphatase 339 H Total Protein Albumin 2.4 L Lipase 3 L Ur Specific [place] Vancomycin Trough 05/11/21 05/11/21 05/12/21 11:18 12:28 04:08 WBC RBC Hgb MCV RDW Plt Count Lymph % (Auto) Lymph # (Auto) Seg Neutrophils % Seg Neuts % (Manual) Lymphocytes % (Manual) Seg Neutrophils # Man Lymphocytes # (Manual) PT INR ABG pH ABG pO2 ABG HCO3 ABG Base Excess ABG Hemoglobin Oxyhemoglobin Sodium Potassium Chloride Carbon Dioxide BUN Creatinine Glucose POC Glucose Lactic Acid 4.20 H* 4.50 H* Calcium Phosphorus Magnesium Total Bilirubin Direct Bilirubin AST ALT Alkaline Phosphatase Total Protein Albumin Lipase Ur Specific [place] 1.035 H Vancomycin Trough 05/12/21 05/12/21 05/12/21 04:08 04:08 09:47 WBC 22.8 H RBC 3.39 L Hgb MCV 98 H RDW 17.7 H Plt Count Lymph % (Auto) Lymph # (Auto) Seg Neutrophils % Seg Neuts % (Manual) 85.5 H Lymphocytes % (Manual) 2.0 L Seg Neutrophils # Man 19.5 H Lymphocytes # (Manual) 0.5 L PT INR ABG pH ABG pO2 ABG HCO3 ABG Base Excess ABG Hemoglobin Oxyhemoglobin Sodium Potassium 3.3 L Chloride 108.9 H Carbon Dioxide 17 L BUN 4 L Creatinine 0.5 L Glucose 106 H POC Glucose Lactic Acid 2.60 H* Calcium 6.4 L D Phosphorus Magnesium Total Bilirubin 2.10 H Direct Bilirubin AST 156 H ALT 61 H Alkaline Phosphatase 317 H Total Protein 5.4 L D Albumin 1.8 L Lipase Ur Specific [place] Vancomycin Trough 05/12/21 05/12/21 05/12/21 11:47 12:30 12:36 WBC RBC Hgb MCV RDW Plt Count Lymph % (Auto) Lymph # (Auto) Seg Neutrophils % Seg Neuts % (Manual) Lymphocytes % (Manual) Seg Neutrophils # Man Lymphocytes # (Manual) PT INR ABG pH ABG pO2 ABG HCO3 ABG Base Excess ABG Hemoglobin Oxyhemoglobin Sodium Potassium Chloride Carbon Dioxide BUN Creatinine Glucose POC Glucose 59 L 120 H Lactic Acid 2.50 H* Calcium Phosphorus Magnesium Total Bilirubin Direct Bilirubin AST ALT Alkaline Phosphatase Total Protein Albumin Lipase Ur Specific [place] Vancomycin Trough 05/12/21 05/12/21 05/13/21 23:45 Unknown 04:00 WBC 19.8 H RBC 3.52 L Hgb MCV 98 H RDW 18.5 H Plt Count Lymph % (Auto) Lymph # (Auto) Seg Neutrophils % Seg Neuts % (Manual) Lymphocytes % (Manual) Seg Neutrophils # Man Lymphocytes # (Manual) PT INR ABG pH ABG pO2 ABG HCO3 ABG Base Excess ABG Hemoglobin Oxyhemoglobin Sodium Potassium Chloride Carbon Dioxide BUN Creatinine Glucose POC Glucose 119 H Lactic Acid 3.30 H* Calcium Phosphorus Magnesium Total Bilirubin Direct Bilirubin AST ALT Alkaline Phosphatase Total Protein Albumin Lipase Ur Specific [place] Vancomycin Trough 05/13/21 05/13/21 05/13/21 04:00 05:42 12:19 WBC RBC Hgb MCV RDW Plt Count Lymph % (Auto) Lymph # (Auto) Seg Neutrophils % Seg Neuts % (Manual) Lymphocytes % (Manual) Seg Neutrophils # Man Lymphocytes # (Manual) PT INR ABG pH ABG pO2 ABG HCO3 ABG Base Excess ABG Hemoglobin Oxyhemoglobin Sodium Potassium 3.4 L Chloride 107.1 H Carbon Dioxide 19 L BUN 4 L Creatinine 0.4 L Glucose 157 H POC Glucose 143 H 110 H Lactic Acid Calcium 7.4 L D Phosphorus 1.60 L Magnesium 1.50 L Total Bilirubin 1.40 H Direct Bilirubin AST 95 H ALT Alkaline Phosphatase 328 H Total Protein 5.5 L Albumin 1.6 L Lipase Ur Specific [place] Vancomycin Trough 05/14/21 05/14/21 05/14/21 06:15 06:15 10:25 WBC 11.7 H RBC 3.41 L Hgb MCV 98 H RDW 18.6 H Plt Count Lymph % (Auto) Lymph # (Auto) Seg Neutrophils % Seg Neuts % (Manual) Lymphocytes % (Manual) Seg Neutrophils # Man Lymphocytes # (Manual) PT INR ABG pH ABG pO2 76.0 L ABG HCO3 27.2 H ABG Base Excess ABG Hemoglobin 11.5 L Oxyhemoglobin 94.4 L Sodium Potassium 3.2 L Chloride Carbon Dioxide BUN 6 L Creatinine 0.5 L Glucose 103 H POC Glucose Lactic Acid Calcium 7.3 L Phosphorus 1.70 L Magnesium Total Bilirubin Direct Bilirubin AST 66 H ALT Alkaline Phosphatase 295 H Total Protein 5.3 L Albumin 1.8 L Lipase Ur Specific [place] Vancomycin Trough 05/14/21 05/14/21 05/14/21 15:20 15:20 17:26 WBC RBC Hgb MCV RDW Plt Count Lymph % (Auto) Lymph # (Auto) Seg Neutrophils % Seg Neuts % (Manual) Lymphocytes % (Manual) Seg Neutrophils # Man Lymphocytes # (Manual) PT INR ABG pH ABG pO2 ABG HCO3 ABG Base Excess ABG Hemoglobin Oxyhemoglobin Sodium 146 H D Potassium Chloride 108.4 H Carbon Dioxide BUN 5 L Creatinine 0.5 L Glucose POC Glucose 63 L Lactic Acid Calcium 7.6 L Phosphorus Magnesium Total Bilirubin Direct Bilirubin AST ALT Alkaline Phosphatase Total Protein Albumin Lipase Ur Specific [place] Vancomycin Trough 25.3 H 05/14/21 05/15/21 05/15/21 21:27 00:03 00:29 WBC RBC Hgb MCV RDW Plt Count Lymph % (Auto) Lymph # (Auto) Seg Neutrophils % Seg Neuts % (Manual) Lymphocytes % (Manual) Seg Neutrophils # Man Lymphocytes # (Manual) PT INR ABG pH ABG pO2 ABG HCO3 ABG Base Excess ABG Hemoglobin Oxyhemoglobin Sodium Potassium Chloride Carbon Dioxide BUN Creatinine Glucose POC Glucose 52 L 54 L 129 H Lactic Acid Calcium Phosphorus Magnesium Total Bilirubin Direct Bilirubin AST ALT Alkaline Phosphatase Total Protein Albumin Lipase Ur Specific [place] Vancomycin Trough 05/15/21 05/15/21 05/15/21 04:45 04:45 11:58 WBC RBC 3.24 L Hgb MCV 98 H RDW 18.5 H Plt Count 122 L Lymph % (Auto) 7.4 L Lymph # (Auto) 0.6 L Seg Neutrophils % 81.2 H Seg Neuts % (Manual) Lymphocytes % (Manual) Seg Neutrophils # Man Lymphocytes # (Manual) PT INR ABG pH ABG pO2 ABG HCO3 ABG Base Excess ABG Hemoglobin Oxyhemoglobin Sodium 146 H Potassium 3.1 L Chloride 108.8 H Carbon Dioxide BUN 6 L Creatinine Glucose 121 H POC Glucose 68 L Lactic Acid Calcium 7.5 L Phosphorus 2.30 L D Magnesium Total Bilirubin 1.90 H Direct Bilirubin AST 55 H ALT Alkaline Phosphatase 231 H Total Protein 5.4 L Albumin 1.5 L Lipase Ur Specific [place] Vancomycin Trough 05/15/21 05/16/21 05/16/21 13:50 00:06 00:43 WBC RBC Hgb MCV RDW Plt Count Lymph % (Auto) Lymph # (Auto) Seg Neutrophils % Seg Neuts % (Manual) Lymphocytes % (Manual) Seg Neutrophils # Man Lymphocytes # (Manual) PT INR ABG pH ABG pO2 ABG HCO3 ABG Base Excess ABG Hemoglobin Oxyhemoglobin Sodium Potassium Chloride Carbon Dioxide BUN Creatinine Glucose POC Glucose 147 H 54 L 116 H Lactic Acid Calcium Phosphorus Magnesium Total Bilirubin Direct Bilirubin AST ALT Alkaline Phosphatase Total Protein Albumin Lipase Ur Specific [place] Vancomycin Trough 05/16/21 05/16/21 05/16/21 04:31 04:31 05:58 WBC RBC 3.12 L Hgb 9.8 L MCV 98 H RDW 18.2 H Plt Count 115 L Lymph % (Auto) Lymph # (Auto) Seg Neutrophils % Seg Neuts % (Manual) Lymphocytes % (Manual) Seg Neutrophils # Man Lymphocytes # (Manual) PT INR ABG pH ABG pO2 ABG HCO3 ABG Base Excess ABG Hemoglobin Oxyhemoglobin Sodium 146 H Potassium 3.2 L Chloride Carbon Dioxide BUN 5 L Creatinine 0.5 L Glucose POC Glucose 61 L Lactic Acid Calcium 7.2 L Phosphorus 2.30 L Magnesium Total Bilirubin Direct Bilirubin AST ALT Alkaline Phosphatase Total Protein Albumin Lipase Ur Specific [place] Vancomycin Trough 05/16/21 05/16/21 05/17/21 08:11 23:42 04:15 WBC RBC Hgb MCV RDW Plt Count Lymph % (Auto) Lymph # (Auto) Seg Neutrophils % Seg Neuts % (Manual) Lymphocytes % (Manual) Seg Neutrophils # Man Lymphocytes # (Manual) PT INR ABG pH ABG pO2 ABG HCO3 ABG Base Excess ABG Hemoglobin Oxyhemoglobin Sodium Potassium Chloride Carbon Dioxide BUN Creatinine Glucose POC Glucose 58 L 200 H Lactic Acid Calcium Phosphorus Magnesium Total Bilirubin 1.70 H Direct Bilirubin 1.5 H AST 43 H ALT Alkaline Phosphatase 196 H Total Protein 5.4 L Albumin 1.6 L Lipase Ur Specific [place] Vancomycin Trough 05/17/21 05/17/21 05/17/21 04:15 04:15 05:07 WBC RBC 3.26 L Hgb MCV 98 H RDW 18.9 H Plt Count 114 L Lymph % (Auto) Lymph # (Auto) Seg Neutrophils % Seg Neuts % (Manual) Lymphocytes % (Manual) Seg Neutrophils # Man Lymphocytes # (Manual) PT INR ABG pH ABG pO2 ABG HCO3 ABG Base Excess ABG Hemoglobin Oxyhemoglobin Sodium Potassium Chloride Carbon Dioxide 35 H BUN 5 L Creatinine Glucose 274 H POC Glucose 249 H Lactic Acid Calcium 7.7 L Phosphorus 1.50 L D Magnesium Total Bilirubin Direct Bilirubin AST ALT Alkaline Phosphatase Total Protein Albumin Lipase Ur Specific [place] Vancomycin Trough 05/17/21 05/17/21 05/17/21 11:56 16:29 23:37 WBC RBC Hgb MCV RDW Plt Count Lymph % (Auto) Lymph # (Auto) Seg Neutrophils % Seg Neuts % (Manual) Lymphocytes % (Manual) Seg Neutrophils # Man Lymphocytes # (Manual) PT INR ABG pH ABG pO2 ABG HCO3 ABG Base Excess ABG Hemoglobin Oxyhemoglobin Sodium Potassium Chloride Carbon Dioxide BUN Creatinine Glucose POC Glucose 176 H 219 H 150 H Lactic Acid Calcium Phosphorus Magnesium Total Bilirubin Direct Bilirubin AST ALT Alkaline Phosphatase Total Protein Albumin Lipase Ur Specific [place] Vancomycin Trough 05/18/21 05/18/21 05/18/21 04:00 05:22 09:00 WBC RBC 3.34 L Hgb MCV RDW 18.8 H Plt Count Lymph % (Auto) Lymph # (Auto) Seg Neutrophils % Seg Neuts % (Manual) Lymphocytes % (Manual) Seg Neutrophils # Man Lymphocytes # (Manual) PT INR ABG pH ABG pO2 ABG HCO3 ABG Base Excess ABG Hemoglobin Oxyhemoglobin Sodium Potassium 5.4 H D Chloride 97.5 L Carbon Dioxide 33 H BUN Creatinine 0.4 L Glucose 461 H POC Glucose 181 H Lactic Acid Calcium 7.2 L Phosphorus 5.00 H D Magnesium Total Bilirubin Direct Bilirubin AST ALT Alkaline Phosphatase Total Protein Albumin Lipase Ur Specific [place] Vancomycin Trough 05/18/21 05/18/21 05/18/21 11:16 12:50 16:29 WBC RBC Hgb MCV RDW Plt Count Lymph % (Auto) Lymph # (Auto) Seg Neutrophils % Seg Neuts % (Manual) Lymphocytes % (Manual) Seg Neutrophils # Man Lymphocytes # (Manual) PT INR ABG pH ABG pO2 ABG HCO3 ABG Base Excess ABG Hemoglobin Oxyhemoglobin Sodium Potassium 3.4 L D Chloride Carbon Dioxide 36 H BUN 19 H Creatinine 0.4 L Glucose 231 H POC Glucose 168 H 196 H Lactic Acid Calcium 7.5 L Phosphorus 1.80 L D Magnesium Total Bilirubin Direct Bilirubin AST ALT Alkaline Phosphatase Total Protein Albumin Lipase Ur Specific [place] Vancomycin Trough 05/19/21 05/19/21 05/19/21 00:05 04:08 05:07 WBC RBC Hgb MCV RDW Plt Count Lymph % (Auto) Lymph # (Auto) Seg Neutrophils % Seg Neuts % (Manual) Lymphocytes % (Manual) Seg Neutrophils # Man Lymphocytes # (Manual) PT INR ABG pH ABG pO2 ABG HCO3 ABG Base Excess ABG Hemoglobin Oxyhemoglobin Sodium 146 H Potassium Chloride Carbon Dioxide 35 H BUN 25 H Creatinine 0.4 L Glucose 218 H POC Glucose 164 H 203 H Lactic Acid Calcium 7.2 L Phosphorus Magnesium Total Bilirubin Direct Bilirubin AST ALT Alkaline Phosphatase Total Protein Albumin Lipase Ur Specific [place] Vancomycin Trough 05/19/21 05/19/21 05/19/21 12:16 14:14 17:11 WBC RBC Hgb MCV RDW Plt Count Lymph % (Auto) Lymph # (Auto) Seg Neutrophils % Seg Neuts % (Manual) Lymphocytes % (Manual) Seg Neutrophils # Man Lymphocytes # (Manual) PT INR ABG pH 7.482 H ABG pO2 111.7 H ABG HCO3 31.4 H ABG Base Excess 7.2 H ABG Hemoglobin 11.1 L Oxyhemoglobin Sodium Potassium Chloride Carbon Dioxide BUN Creatinine Glucose POC Glucose 206 H 194 H Lactic Acid Calcium Phosphorus Magnesium Total Bilirubin Direct Bilirubin AST ALT Alkaline Phosphatase Total Protein Albumin Lipase Ur Specific [place] Vancomycin Trough 05/20/21 05/20/21 05/20/21 00:01 04:30 06:09 WBC RBC Hgb MCV RDW Plt Count Lymph % (Auto) Lymph # (Auto) Seg Neutrophils % Seg Neuts % (Manual) Lymphocytes % (Manual) Seg Neutrophils # Man Lymphocytes # (Manual) PT INR ABG pH ABG pO2 ABG HCO3 ABG Base Excess ABG Hemoglobin Oxyhemoglobin Sodium Potassium 3.5 L Chloride Carbon Dioxide BUN 24 H Creatinine 0.3 L Glucose 254 H POC Glucose 209 H 210 H Lactic Acid Calcium 7.5 L Phosphorus 1.90 L D Magnesium Total Bilirubin 1.60 H Direct Bilirubin AST 201 H ALT 170 H Alkaline Phosphatase 169 H Total Protein 5.3 L Albumin 1.9 L Lipase Ur Specific [place] Vancomycin Trough 05/20/21 05/20/21 05/20/21 11:41 16:47 22:21 WBC RBC Hgb MCV RDW Plt Count Lymph % (Auto) Lymph # (Auto) Seg Neutrophils % Seg Neuts % (Manual) Lymphocytes % (Manual) Seg Neutrophils # Man Lymphocytes # (Manual) PT INR ABG pH ABG pO2 ABG HCO3 ABG Base Excess ABG Hemoglobin Oxyhemoglobin Sodium Potassium Chloride Carbon Dioxide BUN Creatinine Glucose POC Glucose 158 H 232 H 211 H Lactic Acid Calcium Phosphorus Magnesium Total Bilirubin Direct Bilirubin AST ALT Alkaline Phosphatase Total Protein Albumin Lipase Ur Specific [place] Vancomycin Trough 05/21/21 05/21/21 05/21/21 00:35 04:00 04:00 WBC RBC 3.28 L Hgb MCV RDW 18.7 H Plt Count 125 L Lymph % (Auto) Lymph # (Auto) Seg Neutrophils % Seg Neuts % (Manual) Lymphocytes % (Manual) Seg Neutrophils # Man Lymphocytes # (Manual) PT INR ABG pH ABG pO2 ABG HCO3 ABG Base Excess ABG Hemoglobin Oxyhemoglobin Sodium Potassium 5.1 H D Chloride 108.7 H Carbon Dioxide BUN 21 H Creatinine 0.2 L Glucose 242 H POC Glucose 230 H Lactic Acid Calcium 7.3 L Phosphorus Magnesium Total Bilirubin Direct Bilirubin AST ALT Alkaline Phosphatase Total Protein Albumin Lipase Ur Specific [place] Vancomycin Trough 05/21/21 05/21/21 05/21/21 05:08 11:47 17:43 WBC RBC Hgb MCV RDW Plt Count Lymph % (Auto) Lymph # (Auto) Seg Neutrophils % Seg Neuts % (Manual) Lymphocytes % (Manual) Seg Neutrophils # Man Lymphocytes # (Manual) PT INR ABG pH ABG pO2 ABG HCO3 ABG Base Excess ABG Hemoglobin Oxyhemoglobin Sodium Potassium Chloride Carbon Dioxide BUN Creatinine Glucose POC Glucose 196 H 139 H 147 H Lactic Acid Calcium Phosphorus Magnesium Total Bilirubin Direct Bilirubin AST ALT Alkaline Phosphatase Total Protein Albumin Lipase Ur Specific [place] Vancomycin Trough 05/21/21 05/21/21 05/22/21 17:57 23:32 04:16 WBC RBC Hgb MCV RDW Plt Count Lymph % (Auto) Lymph # (Auto) Seg Neutrophils % Seg Neuts % (Manual) Lymphocytes % (Manual) Seg Neutrophils # Man Lymphocytes # (Manual) PT INR ABG pH ABG pO2 ABG HCO3 ABG Base Excess ABG Hemoglobin Oxyhemoglobin Sodium Potassium 5.2 H Chloride Carbon Dioxide BUN 19 H Creatinine 0.2 L Glucose 154 H POC Glucose 218 H 185 H Lactic Acid Calcium 7.5 L Phosphorus Magnesium Total Bilirubin 3.00 H Direct Bilirubin 2.3 H AST 437 H ALT 462 H Alkaline Phosphatase 186 H Total Protein 5.5 L Albumin 1.9 L Lipase Ur Specific [place] Vancomycin Trough 05/22/21 05/22/21 05/22/21 04:30 04:30 04:30 WBC RBC Hgb MCV RDW Plt Count Lymph % (Auto) Lymph # (Auto) Seg Neutrophils % Seg Neuts % (Manual) Lymphocytes % (Manual) Seg Neutrophils # Man Lymphocytes # (Manual) PT 19.5 H INR 1.49 H ABG pH ABG pO2 ABG HCO3 ABG Base Excess ABG Hemoglobin Oxyhemoglobin Sodium 134 L Potassium Chloride Carbon Dioxide BUN 19 H Creatinine 0.2 L Glucose 208 H POC Glucose Lactic Acid Calcium 7.2 L Phosphorus 2.40 L D Magnesium Total Bilirubin 2.20 H Direct Bilirubin AST 350 H ALT 496 H Alkaline Phosphatase 167 H Total Protein 4.8 L Albumin 1.7 L Lipase Ur Specific [place] Vancomycin Trough 05/22/21 05/22/21 05/22/21 11:59 17:16 23:07 WBC RBC Hgb MCV RDW Plt Count Lymph % (Auto) Lymph # (Auto) Seg Neutrophils % Seg Neuts % (Manual) Lymphocytes % (Manual) Seg Neutrophils # Man Lymphocytes # (Manual) PT INR ABG pH ABG pO2 ABG HCO3 ABG Base Excess ABG Hemoglobin Oxyhemoglobin Sodium Potassium Chloride Carbon Dioxide BUN Creatinine Glucose POC Glucose 204 H 244 H 226 H Lactic Acid Calcium Phosphorus Magnesium Total Bilirubin Direct Bilirubin AST ALT Alkaline Phosphatase Total Protein Albumin Lipase Ur Specific [place] Vancomycin Trough 05/23/21 05/23/21 05/23/21 05:09 10:15 10:15 WBC RBC Hgb MCV RDW Plt Count Lymph % (Auto) Lymph # (Auto) Seg Neutrophils % Seg Neuts % (Manual) Lymphocytes % (Manual) Seg Neutrophils # Man Lymphocytes # (Manual) PT 16.9 H INR 1.24 H ABG pH ABG pO2 ABG HCO3 ABG Base Excess ABG Hemoglobin Oxyhemoglobin Sodium 131 L Potassium Chloride 97.5 L Carbon Dioxide BUN Creatinine < 0.2 L Glucose 248 H POC Glucose 175 H Lactic Acid Calcium 7.4 L Phosphorus Magnesium 1.60 L Total Bilirubin Direct Bilirubin AST ALT Alkaline Phosphatase Total Protein Albumin Lipase Ur Specific [place] Vancomycin Trough 05/23/21 05/23/21 05/24/21 10:15 21:46 04:16 WBC RBC Hgb MCV RDW Plt Count Lymph % (Auto) Lymph # (Auto) Seg Neutrophils % Seg Neuts % (Manual) Lymphocytes % (Manual) Seg Neutrophils # Man Lymphocytes # (Manual) PT INR ABG pH ABG pO2 ABG HCO3 ABG Base Excess ABG Hemoglobin Oxyhemoglobin Sodium 130 L Potassium 3.5 L Chloride 97.1 L Carbon Dioxide BUN Creatinine 0.2 L Glucose 235 H POC Glucose 190 H Lactic Acid Calcium 6.8 L Phosphorus Magnesium Total Bilirubin 2.30 H Direct Bilirubin 1.6 H AST 161 H ALT 396 H Alkaline Phosphatase 186 H Total Protein 4.7 L Albumin 2.0 L Lipase Ur Specific [place] Vancomycin Trough 05/24/21 05/25/21 05/25/21 05:32 04:25 04:25 WBC 11.7 H RBC 3.28 L Hgb MCV RDW 19.9 H Plt Count Lymph % (Auto) Lymph # (Auto) Seg Neutrophils % Seg Neuts % (Manual) Lymphocytes % (Manual) Seg Neutrophils # Man Lymphocytes # (Manual) PT INR ABG pH ABG pO2 ABG HCO3 ABG Base Excess ABG Hemoglobin Oxyhemoglobin Sodium 135 L Potassium 3.4 L Chloride Carbon Dioxide BUN Creatinine 0.2 L Glucose 105 H POC Glucose 208 H Lactic Acid Calcium 7.6 L Phosphorus Magnesium Total Bilirubin Direct Bilirubin AST ALT Alkaline Phosphatase Total Protein Albumin Lipase Ur Specific [place] Vancomycin Trough Allied health notes reviewed: nursing
[2021-05-26] MEDS: MORPHINE 2 MG/1 ML INJ IV PRN ×2 (05:36→09:42)
[2021-05-26] MEDS: INSULIN LISPRO 100 UNIT/ML SUB-Q SCH ×3 (05:36→19:17)
--- NOTE | 2021-05-26 08:11 | Progress Note ---
Assessment and Plan Assessment and plan: Interval history: This is a 51-year-old female with COPD, pancreatic cancer and radiation, s/p pancreatic stent placement, pulmonary fibrosis, hypertension and chronic respiratory failure on 2 L oxygen via nasal cannula who presented to emergency department on 05/11 with complaints of right upper quadrant pain which started approximately at 0200 with nausea and vomiting. Work-up in the emergency department included a CTA chest which showed no pulmonary embolism, mild fluid- filled esophagus and distended stomach with bilateral interstitial opacity in the chest, and CT abdomen/pelvis with contrast which showed persistent pancreatic carcinoma with indwelling metallic stent which is suspected to be occluded. Lab work revealed leukocytosis, transaminitis and lactic acidosis. Patient became hypotensive in the emergency department and required 3 L of IV fluid and was eventually started on vasopressors after placement of femoral central line. Patient was started on empiric antibiotics. Admitted to the hospitalist service with consults to GI and [facility] for transaminitis, possible sepsis, and lactic acidosis. 05/12: Patient remains on high-dose Levophed and vasopressin. Given 1 L LR bolus. GI would like an MRCP to be conducted which has been ordered. Patient cleared for sips of water. Added Tessalon due to severe cough. Potassium repleted. Covid PCR negative. 05/13: Remains on Levophed and vasopressin has been off since yesterday evening. Started on stress dose steroids. MRCP pending. Hypokalemia, hypomagnesemia and hypophosphatemia repleted. Liver enzymes trending down. Started on D5 normal saline yesterday. 05/14: Patient with worsen respiratory status this am, tachypneic with increased O2 requirement. On full support on the Bipap this am with worsening diffuse bilateral opacities on CXR, s/p X1 dose of IV lasix overnight. Patient remains afebrile with no leukocytosis. Will continue IV Lasix X3 doses, f/u CXR in the am. D/W CCM due to patient worsening respiratory status hold on MRCP for today. Patient is off Levophed this am, leave pressors on standby might need to be put back on low dose pressors with IV diuretic. Patient also noted with Rt. fem CVC which was inserted in the ED, most likely due to be change, unsuccessfult PICC by IVT today and patient is refusing Port access at this time. 05/15: Patient remains on continuous Bipap overnight, desat when bipap is removed for mouth care. Plan to wean Fio2 as tolerated for SPO2 goal above 90%. Febrile overnight, TMAX 101.4, on IV abx zosyn, repeat blood culture ordered. Low K and phosph repleted, repeat labs in the am. 05/16: Patient back on full support on the Bipap, still not tolerating FiO2 wean, patient desat in the 80s. D/w CCM plan to continue continuous bipap for now, patient going on over 4 days with no nutrition plan to initiate TPN tomorrow. D10w gtt added for hypoglycemia. Patient platelet continue to steadily drop, given patient's history with continue AC for now, H&H is stable, no s/s of any active bleeding. Electrolytes repleted, will continue to trend CBC, BMP, mg, and phos. MRCP canceled, plan to reorder once patient's respiratory status is more stable. 05/17: Patient remains on continuous Bipap. Patient remains on low dose Levophe d, plan to wean off pressors as tolerated for a MAP above 65. Clinimix initiated overnight, plan to start TPN tonight. Hyperglycemic overnight, SSI was initiated. Low phos repleted, repeat lab in the am. 05/18: Down to 60% FIo2 on the Bipap, SPO2 above 97%. Off pressros this am, TPN is running. Patient is now hyperglycemic, SSI adjusted. Consider basal dose, lantus if hyperglycemia persist. This am labs noted, hyperkalemia and really high glucose noted totally different from normal trend, orders placed for redraw. 05/19: Overnight events noted. Started on PRN haldol for agitation. Patient pl aced on heated high Flow at 100%, 40L SPO2 at 100%. Continue to wean Fio2 as tolerated for SPO2 for SPO2 above 92%. Continue TPN for now. Patient still hyperglycemic basal dose lantus added Qhs. 05/20: Patient is tolerating HHFL NC, SPO2 above 95%. Continue HHFL NC during and Bipap at night. Still on TPN for nutrition, hyperglycemia persists- basal insulin increased. Low K and phosp was repleted, repeat lab in the am. 05/21: Patient unable to tolerate OptiFlow for more than couple hours and was placed back on BiPAP due to desaturation. Patient remains on TPN for nutrition which was held today due to hyperkalemia. P.m. BMP ordered but not collected. Patient refused to have port accessed and PICC line ordered. Down grading to [facility] status 05/21 abdominal ultrasound shows findings of emergency megaly and steatosis without other significant abnormality in the right upper quadrant. ST eval ordered and Ntr consult for cyclic TF. midline ordered 05/23/ Patient with acute on chronic resp failure, COPD, pancreatic cancer. She has been transferred to [facility]. She is on BIPAP Hypomag. Replace and recheck in am 05/24/21 Patient with acute on chronic resp failure. Still on BIPAP To start tube feeding 05/25/21 Patient with acute on chronic respiratory failure She desaturated down to Oxygen sat 85% today Will order CT Angio to r/o pulmonary embolism 05/26/21: patient remains on bipap, o2 sat in 90s. CT angio not completed yesterday as patient could not lay flat. Add dilaudid for improved pain control to patient medications and advised staff technologist to re-attempt CT angio. Patient has a poor prognosis given pulmonary fibrosis and pancreatic cancer. Will likely re- visit talks of palliaitive care as she may benefit more from this. Assessment and Plan Assessment and plan: This is a 48-year-old female with COPD, pancreatic cancer with radiation s/p pancreatic stent placement, pulmonary fibrosis, chronic respiratory failure on 2 L nasal cannula admitted with sepsis, transaminitis and lactic acidosis. Neuro: NAD -Avoid delirium -Reorientation as needed -Maintain sleep-wake cycle CV: Hypotension, h/o HTN -Hold home htn medications -s/p vasopressor support with levo and vasopressin -BP monitoring per protocol -CCM consulted, appreciate recommendations -Hold home htn medications -s/p IV Lasix X 3days Respiratory: h/o pulmonary fibrosis, acute on chronic respiratory failure on home O2 of 2 L nasal cannula -Supplemental oxygen as needed -Tessalon Perles as needed for cough -SPO2 monitoring -Pulmonary hygiene -Bipap q hs and prn -Optiflow as tolerated -Wean FiO2 as tolerated -Pulmonary hygiene GI: Transaminitis, protein calorie malnutrition, biliary dilation, r/o cholangitis, h/o pancreatic cancer s/p stent placement -CT abdomen/pelvis showed pancreatic cancer with metallic stent with possible occlusion, mild pelvic fluid and mild colonic thickening -GI consulted, patient recommendations -MRCP pending-> plan for once respiratory status stable -If stent occlusion/biliary obstruction would recommend IR consult for PTC drain per GI -TPN -start cyclic tube feedings -ST evaluation -PPI -BR to start once taking p.o. -24-hour +390 -Acute hepatitis panel negative -Trend LFTs -Abd US shows findings similar to hepatomegaly and steatosis without significant abnormalities in the right quadrant : Hypophosphatemia -Strict intake and output -Purewick in place -Daily weights -Renally dose meds, avoid nephrotoxins -Replace Phosphate Endo: Hyperglycemia, s/p hypoglycemia -Hypoglycemia protocol -Avoid hypoglycemia -SSI every 6 hours -Lantus, titrate as needed ID: Septic shock, Lactic acidosis (improving) -Blood cultures x2 no growth to date -Patient has leukocytosis, hypotension -s/p IV meropenem -Monitor WBC and fever curve -ID consulted, appreciated recommendation -COVID PCR (-) Heme: Thrombocytopenia, Elevated INR -Trend CBC -Transfuse for hemoglobin less than 7 -SCD to bilateral lower extremities while in bed -Lovenox subcu -Monitor platelets Started Lovenox 1 mg/kg bid until pulm embolism ruled out. If negative for PE, please dc Lovenox 1mg/kg Oncology: h/o pancreatic head cancer -F/U with outpatient oncologist -Currently on radiation -Not a surgical candidate per GI -Right chest post not accessed History History Interval history: remains on bipap on FIo2: 80%. Patient has complaint of back pain. Hospitalist Physical - Physical exam Narrative exam: - Physical exam Narrative exam: General appearance: Present: no acute distress, obese, On BIPAP - EENT Eyes: Present: PERRL, EOM intact ENT: hearing intact, clear oral mucosa, dentition normal - Neck Neck: Present: normal ROM - Respiratory Respiratory effort: normal Respiratory: bilateral: diminished - Cardiovascular Rhythm: regular Heart Sounds: Present: S1 & S2. Absent: systolic murmur, diastolic murmur - Extremities Extremities: no ischemia, pulses intact, pulses symmetrical, No edema, normal temperature, normal color Peripheral Pulses: within normal limits - Abdominal General gastrointestinal: soft, non-tender, non-distended, normal bowel sounds - Integumentary Integumentary: Present: warm, dry - Psychiatric Psychiatric: appropriate mood/affect, cooperative - Neurologic Neurologic: CNII-XII intact, moves all extremities - Constitutional Vitals: Temp Pulse Resp BP Pulse Ox 97.5 F L 77 22 109/54 97 05/26/21 04:00 05/26/21 08:00 05/26/21 08:00 05/26/21 08:00 05/26/21 08:00 General appearance: Present: no acute distress, obese Results - Labs CBC & Chem 7: 05/25/21 04:25 05/25/21 04:25 Labs: Laboratory Last Values WBC 11.7 K/mm3 (4.5-11.0) H 05/25/21 04:25 RBC 3.28 M/mm3 (3.65-5.03) L 05/25/21 04:25 Hgb 10.3 gm/dl (10.1-14.3) 05/25/21 04:25 Hct 31.6 % (30.3-42.9) 05/25/21 04:25 MCV 96 fl (79-97) 05/25/21 04:25 MCH 32 pg (28-32) 05/25/21 04:25 MCHC 33 % (30-34) 05/25/21 04:25 RDW 19.9 % (13.2-15.2) H 05/25/21 04:25 Plt Count 142 K/mm3 (140-440) 05/25/21 04:25 Lymph % (Auto) 7.4 % (13.4-35.0) L 05/15/21 04:45 [place] % (Auto) 6.7 % (0.0-7.3) 05/15/21 04:45 Eos % (Auto) 4.0 % (0.0-4.3) 05/15/21 04:45 Baso % (Auto) 0.7 % (0.0-1.8) 05/15/21 04:45 Lymph # (Auto) 0.6 K/mm3 (1.2-5.4) L 05/15/21 04:45 [place] # (Auto) 0.6 K/mm3 (0.0-0.8) 05/15/21 04:45 Eos # (Auto) 0.3 K/mm3 (0.0-0.4) 05/15/21 04:45 Baso # (Auto) 0.1 K/mm3 (0.0-0.1) 05/15/21 04:45 Add Manual Diff Complete 05/12/21 04:08 Total Counted 200 05/12/21 04:08 Seg Neutrophils % 81.2 % (40.0-70.0) H 05/15/21 04:45 Seg Neuts % (Manual) 85.5 % (40.0-70.0) H 05/12/21 04:08 Band Neutrophils % 8.5 % 05/12/21 04:08 Lymphocytes % (Manual) 2.0 % (13.4-35.0) L 05/12/21 04:08 Monocytes % (Manual) 3.0 % (0.0-7.3) 05/12/21 04:08 Eosinophils % (Manual) 1.0 % (0.0-4.3) 05/12/21 04:08 Nucleated RBC % Not Reportable 05/12/21 04:08 Seg Neutrophils # 6.7 K/mm3 (1.8-7.7) 05/15/21 04:45 Seg Neutrophils # Man 19.5 K/mm3 (1.8-7.7) H 05/12/21 04:08 Band Neutrophils # 1.9 K/mm3 05/12/21 04:08 Lymphocytes # (Manual) 0.5 K/mm3 (1.2-5.4) L 05/12/21 04:08 Abs React Lymphs (Man) 0.0 K/mm3 05/12/21 04:08 Monocytes # (Manual) 0.7 K/mm3 (0.0-0.8) 05/12/21 04:08 Eosinophils # (Manual) 0.2 K/mm3 (0.0-0.4) 05/12/21 04:08 Basophils # (Manual) 0.0 K/mm3 (0.0-0.1) 05/12/21 04:08 Metamyelocytes # 0.0 K/mm3 05/12/21 04:08 Myelocytes # 0.0 K/mm3 05/12/21 04:08 Promyelocytes # 0.0 K/mm3 05/12/21 04:08 Blast Cells # 0.0 K/mm3 05/12/21 04:08 WBC Morphology Not Reportable 05/12/21 04:08 Hypersegmented Neuts Not Reportable 05/12/21 04:08 Hyposegmented Neuts Not Reportable 05/12/21 04:08 Hypogranular Neuts Not Reportable 05/12/21 04:08 Smudge Cells Not Reportable 05/12/21 04:08 Toxic Granulation Not Reportable 05/12/21 04:08 Toxic Vacuolation Not Reportable 05/12/21 04:08 Dohle Bodies Not Reportable 05/12/21 04:08 Pelger-Huet Anomaly Not Reportable 05/12/21 04:08 Elizabeth Rods Not Reportable 05/12/21 04:08 Platelet Estimate Consistent w auto 05/12/21 04:08 Clumped Platelets Not Reportable 05/12/21 04:08 Plt Clumps, EDTA Not Reportable 05/12/21 04:08 Large Platelets Not Reportable 05/12/21 04:08 Giant Platelets Not Reportable 05/12/21 04:08 Platelet Satelliting Not Reportable 05/12/21 04:08 Plt Morphology Comment Not Reportable 05/12/21 04:08 RBC Morphology Not Reportable 05/12/21 04:08 Dimorphic RBCs Not Reportable 05/12/21 04:08 Polychromasia Not Reportable 05/12/21 04:08 Hypochromasia Not Reportable 05/12/21 04:08 Poikilocytosis Not Reportable 05/12/21 04:08 Anisocytosis 1+ 05/12/21 04:08 Microcytosis Not Reportable 05/12/21 04:08 Macrocytosis Not Reportable 05/12/21 04:08 Spherocytes Not Reportable 05/12/21 04:08 Pappenheimer Bodies Not Reportable 05/12/21 04:08 Sickle Cells Not Reportable 05/12/21 04:08 Target Cells Not Reportable 05/12/21 04:08 Tear Drop Cells Not Reportable 05/12/21 04:08 Ovalocytes Not Reportable 05/12/21 04:08 Helmet Cells Not Reportable 05/12/21 04:08 [place] Bodies Not Reportable 05/12/21 04:08 [place] Rings Not Reportable 05/12/21 04:08 Marcin Cells Not Reportable 05/12/21 04:08 Bite Cells Not Reportable 05/12/21 04:08 Crenated Cell Not Reportable 05/12/21 04:08 Elliptocytes Not Reportable 05/12/21 04:08 Acanthocytes (Spur) Not Reportable 05/12/21 04:08 Rouleaux Not Reportable 05/12/21 04:08 Hemoglobin C Crystals Not Reportable 05/12/21 04:08 Schistocytes Not Reportable 05/12/21 04:08 Malaria parasites Not Reportable 05/12/21 04:08 [place]ir Bodies Not Reportable 05/12/21 04:08 Hem Pathologist Commnt No 05/12/21 04:08 PT 16.9 Sec. (12.2-14.9) H 05/23/21 10:15 INR 1.24 (0.87-1.13) H 05/23/21 10:15 ABG pH 7.482 pH Units (7.350-7.450) H 05/19/21 14:14 ABG pCO2 42.9 mm Hg 05/19/21 14:14 ABG pO2 111.7 mm Hg (80.0-90.0) H 05/19/21 14:14 ABG HCO3 31.4 mmol/L (20.0-26.0) H 05/19/21 14:14 ABG O2 Saturation 98.2 % (95.0-99.0) 05/19/21 14:14 ABG O2 Content 15.2 (0.0-44) 05/19/21 14:14 ABG Base Excess 7.2 mmol/L (-2.0-3.0) H 05/19/21 14:14 ABG Hemoglobin 11.1 gm/dl (12.0-16.0) L 05/19/21 14:14 ABG Carboxyhemoglobin 1.1 % (0.0-5.0) 05/19/21 14:14 ABG Methemoglobin 0.6 % (0.0-1.5) 05/19/21 14:14 Oxyhemoglobin 96.4 % (95.0-99.0) 05/19/21 14:14 FiO2 100 % 05/19/21 14:14 Sodium 135 mmol/L (137-145) L 05/25/21 04:25 Potassium 3.4 mmol/L (3.6-5.0) L 05/25/21 04:25 Chloride 100.3 mmol/L (98-107) 05/25/21 04:25 Carbon Dioxide 25 mmol/L (22-30) 05/25/21 04:25 Anion Gap 13 mmol/L 05/25/21 04:25 BUN 15 mg/dL (7-17) 05/25/21 04:25 Creatinine 0.2 mg/dL (0.6-1.2) L 05/25/21 04:25 Estimated GFR > 60 ml/min 05/25/21 04:25 BUN/Creatinine Ratio 75 % 05/25/21 04:25 Glucose 105 mg/dL (65-100) H 05/25/21 04:25 POC Glucose 104 mg/dL (70-105) 05/25/21 05:43 Hemoglobin A1c 5.2 % (4-6) 05/12/21 04:08 Lactic Acid 3.30 mmol/L (0.7-2.0) H* 05/12/21 Unknown Calcium 7.6 mg/dL (8.4-10.2) L 05/25/21 04:25 Phosphorus 2.60 mg/dL (2.5-4.5) 05/24/21 04:16 Magnesium 2.00 mg/dL (1.7-2.3) 05/24/21 04:16 Total Bilirubin 2.30 mg/dL (0.1-1.2) H 05/23/21 10:15 Direct Bilirubin 1.6 mg/dL (0-0.2) H 05/23/21 10:15 Indirect Bilirubin 0.7 mg/dL 05/23/21 10:15 AST 161 units/L (5-40) H 05/23/21 10:15 ALT 396 units/L (7-56) H 05/23/21 10:15 Alkaline Phosphatase 186 units/L (35-129) H 05/23/21 10:15 Total Protein 4.7 g/dL (6.3-8.2) L 05/23/21 10:15 Albumin 2.0 g/dL (3.9-5) L 05/23/21 10:15 Albumin/Globulin Ratio 0.7 % 05/23/21 10:15 Triglycerides 90 mg/dL (2-149) 05/23/21 10:15 Lipase 3 units/L (13-60) L 05/11/21 05:43 Urine Color [place] (Yellow) 05/11/21 11:18 Urine Turbidity Clear (Clear) 05/11/21 11:18 Urine pH 6.0 (5.0-7.0) 05/11/21 11:18 Ur Specific [place] 1.035 (1.003-1.030) H 05/11/21 11:18 Urine Protein 100 mg/dl mg/dL (Negative) 05/11/21 11:18 Urine Glucose (UA) Neg mg/dL (Negative) 05/11/21 11:18 Urine Ketones Neg mg/dL (Negative) 05/11/21 11:18 Urine Blood Neg (Negative) 05/11/21 11:18 Urine Nitrite Neg (Negative) 05/11/21 11:18 Urine Bilirubin Neg (Negative) 05/11/21 11:18 Urine Urobilinogen < 2.0 mg/dL (<2.0) 05/11/21 11:18 Ur Leukocyte Esterase Neg (Negative) 05/11/21 11:18 Urine WBC (Auto) 2.0 /HPF (0.0-6.0) 05/11/21 11:18 Urine RBC (Auto) 1.0 /HPF (0.0-6.0) 05/11/21 11:18 Urine Mucus Few /HPF 05/11/21 11:18 Vancomycin Trough 25.3 ug/mL (5.0-20.0) H 05/14/21 15:20 Coronavirus (PCR) Negative (Negative) 05/12/21 10:16 Hepatitis A IgM Ab Non-reactive (NonReactive) 05/12/21 12:30 Hep Bs Antigen Nonreactive (Negative) 05/12/21 12:30 Hep B Core IgM Ab Non-reactive (NonReactive) 05/12/21 12:30 Hepatitis C Antibody Non-reactive (NonReactive) 05/12/21 12:30 Rivas/IV: Voiding Method Indwelling Catheter Active Medications - Current Medications Current Medications: Generic Name Dose Route Start Last Admin Trade Name Freq PRN Reason Stop Dose Admin Acetaminophen 650 mg 05/11/21 21:40 05/14/21 20:06 Acetaminophen 325 Mg Tab PO 650 mg Q4H PRN Administration Pain MILD(1-3)/Fever >100.5/WOODS Lipase/Protease/Amylase 1 each 05/22/21 16:30 Lipase 10,500/Protease 25,000/Amylase 43,750 (Units) Dr Baker FEEDTUBE PRN PRN For Clogged Feeding Tube Arformoterol Tartrate 15 mcg 05/12/21 08:00 05/25/21 20:20 Arformoterol 15 Mcg/2 Ml Nebu IH 15 mcg Q12HRT ABRAHAN Administration Benzonatate 100 mg 05/12/21 15:53 05/23/21 22:02 Benzonatate 100 Mg Cap PO 100 mg Q8HR PRN Administration Cough Budesonide 0.5 mg 05/12/21 08:00 05/25/21 20:20 Budesonide 0.5 Mg/2 Ml Nebu IH 0.5 mg Q12HRT ABRAHAN Administration Dexamethasone 6 mg 05/16/21 13:00 05/25/21 09:15 Dexamethasone 4 Mg/Ml Vial IV 6 mg Q24HR ABRAHAN Administration Dextrose 50 ml 05/12/21 11:57 05/16/21 08:30 Dextrose 50% In Water (25gm) 50 Ml Syringe IV 20 ml Q30MIN PRN Administration Hypoglycemia Protocol Dicyclomine HCl 10 mg 05/23/21 14:00 05/25/21 21:40 Dicyclomine 10 Mg Cap PO 10 mg QID ABRAHAN Administration Enoxaparin Sodium 80 mg 05/25/21 12:00 05/25/21 21:40 Enoxaparin 80 Mg/0.8 Ml Inj SUB-Q 80 mg Q12HR ABRAHAN Administration Protocol Furosemide 20 mg 05/24/21 14:00 05/25/21 09:15 Furosemide 20 Mg/2 Ml Inj IV 05/27/21 13:59 20 mg QDAY ABRAHAN Administration Haloperidol Lactate 5 mg 05/19/21 15:00 05/25/21 19:55 Haloperidol Lactate 5 Mg/1 Ml Inj IV 5 mg Q8H PRN Administration Agitation Insulin Glargine 20 units 05/22/21 22:00 05/25/21 21:39 Insulin Glargine 100 Units/Ml SUB-Q 20 units QHS ABRAHAN Administration Insulin Human Lispro 0 unit 05/17/21 12:00 05/26/21 05:36 Insulin Lispro 100 Unit/Ml SUB-Q 3 unit Q6HR ABRAHAN Administration Protocol Metoclopramide HCl 10 mg 05/11/21 21:40 Metoclopramide 10 Mg/2 Ml Inj IV Q6H PRN Nausea And Vomiting Morphine Sulfate 2 mg 05/11/21 21:40 05/26/21 05:36 Morphine 2 Mg/1 Ml Inj IV 2 mg Q4H PRN Administration Pain, Moderate (4-6) Ondansetron HCl 4 mg 05/11/21 21:40 05/15/21 09:57 Ondansetron 4 Mg/2 Ml Inj IV 4 mg Q8H PRN Administration Nausea And Vomiting Pantoprazole Sodium 40 mg 05/15/21 10:00 05/25/21 09:15 Pantoprazole 40 Mg Inj IV 40 mg QDAY ABRAHAN Administration Simple Syrup 15 ml 05/22/21 16:30 Simple Syrup 15 Ml FEEDTUBE PRN PRN Hypoglycemia Simple Syrup 30 ml 05/22/21 16:30 Simple Syrup 15 Ml FEEDTUBE PRN PRN Hypoglycemia Sodium Bicarbonate 325 mg 05/22/21 16:30 Sodium Bicarbonate 325 Mg Tab FEEDTUBE PRN PRN For Clogged Feeding Tube Sodium Chloride 10 ml 05/11/21 22:00 05/25/21 21:42 Sodium Chloride 0.9% 10 Ml Flush Syringe IV 10 ml BID ABRAHAN Administration Sodium Chloride 10 ml 05/11/21 21:40 05/23/21 21:00 Sodium Chloride 0.9% 10 Ml Flush Syringe IV 10 ml PRN PRN Administration LINE FLUSH Nutrition/Malnutrition Assess - Dietary Evaluation Nutrition/Malnutrition Findings: Nutrition Notes Start: 05/13/21 09:47 Freq: Status: Active Protocol: Document 05/25/21 18:31 ZENY (Rec: 05/25/21 18:41 ZENY [id number]) Nutrition Notes Initial or Follow up Brief Note Current Diet TF-Vital AF 1.2 Po @ 42 ml/hr (since D 05/24). Height 5 ft 2 in Weight 77.2 kg [place] Body Weight (kg) 50.00 BMI 31.1 Weight change and time frame 1.2 Kg body weight loss in 2 days reported. Subjective/Other Information RD consult for routine F/U on TF tolerance. TF continues as prescribed after 24 hrs without adverse reactions reported. TF will continue as is. Percent of energy/protein needs met: Prescribed Vital AF 1.2 Po @ 42 ml/hr provides for energy/ protein needs (1,220 Kcal/76 g ) during LOS, 76% Kcal; 76% AA . #1 Nutrition Diagnosis Altered GI function Comments: TPN discontinued, TF well tolerated. Diagnosis Progress(for reassessment Improved documentation) Nutrition Intervention Nutrition Support: Continue Vital AF 1.2 Po @ 42 ml/hr. Flush 130 ml Q 4 hr. % RDI: 76% Kcal; 76% AA. Goal #1 Provide at least 75% of energy /protein needs through Enteral Nutrition during LOS. Follow-Up By: 05/28/21 Additional Comments Continue monitoring TF tolerance.
[2021-05-26] MEDS: BUDESONIDE 0.5 MG/2 ML NEBU IH SCH ×2 (09:23→21:03)
[2021-05-26] MEDS: ARFORMOTEROL 15 MCG/2 ML NEBU IH SCH ×2 (09:26→21:03)
[2021-05-26] MEDS: PANTOPRAZOLE 40 MG INJ IV SCH (09:41)
[2021-05-26] MEDS: FUROSEMIDE 20 MG/2 ML INJ IV SCH (09:41)
[2021-05-26] MEDS: ENOXAPARIN 80 MG/0.8 ML INJ SUB-Q SCH ×2 (09:41→21:02)
[2021-05-26] MEDS: dexAMETHasone 4 MG/ML VIAL IV SCH (09:41)
[2021-05-26] MEDS: DICYCLOMINE 10 MG CAP PO SCH ×5 (09:41→21:02)
[2021-05-26] MEDS: HYDROmorphone 1 MG/1 ML INJ IV PRN ×2 (15:28→21:01)
--- NOTE | 2021-05-26 20:52 | Progress Note ---
Assessment and Plan 51-year-old female with history of COPD, Hypertension and pancreatic cancer comes in for right upper quadrant pain since 2 AM. Pain is about 10 on a scale of 1-10. Also associated with nausea and vomiting. Patient is on radiation therapy for pancreatic cancer. Patient also has a history of pulmonary fibrosis and is on 2 L nasal cannula oxygen. Vomited about 3-4 times. No fever or chills. No aggravating or relieving factors. No exposure to coronavirus. Patient has history of smoking. Not smoking. Denies alcohol or drug abuse. Patient is in deep sleep. Not responding to verbal stimuli. Patient is on BIPAP 15/10, rate 18, FIO2 80%. O2 saturation 92% . Mild increase in work of breathing. Patient afebrile. Has leukocytosis. Blood pressure 118/71, pulse 102, respirations 17. Chest xray done 05/13/21 reported No acute change since 03/19/2019. Interstitial lung disease or early pulmonary fibrosis is suspected and unchanged. Patient has angio CT of chest done on 05/11/[address] evidence for pulmonary embolism. Bilateral interstitial opacity remains with overall mild worsening Mild fluid-filled esophagus. The stomach is also distended with fluid. Chest xray done 05/24/21 reported Feeding tube courses beneath the diaphragm with tip not visualized. Improving airspace disease. Patient is on Budesonide/Brovanna aerosol treatments, Decadron, S/C Lovenox in therapeutic dose, Protonix, I spent critical care time of 35 minutes, obtaining history, review the chart, Examine the patient, review labs and chest xray, Ct scan of chest, talking to the nursing staff and work up plan of treatment. - Patient Problems (1) Hypotension Current Visit: Yes Status: Acute Plan to address problem: Patients blood pressure improved. Patient is off Norepinephrine and vasopressin. (2) Sepsis Current Visit: Yes Status: Acute Plan to address problem: Patient was on cefepime and vancomycin. (3) Pancreatic cancer Current Visit: Yes Status: Chronic Qualifiers: Pancreatic malignancy location: body of pancreas Qualified Code(s): C25.1 - Malignant neoplasm of body of pancreas Plan to address problem: Management as per primary care and oncology. (4) Asthma exacerbation Current Visit: No Status: Acute Plan to address problem: Patient is on Brovanna/Budesonide aerosol treatments. Patient is on Decadron. S/C Lovenox Protonix. (5) Bilateral pneumonia Current Visit: No Status: Acute Plan to address problem: Patient was on Cefepime and vancomycin. (6) Interstitial lung disease Current Visit: No Status: Acute Plan to address problem: Recommend TED, rheumatoid factor, CANCA, BRIGHT levels. PFTs as out patient. (7) HTN (hypertension) Current Visit: No Status: Chronic Qualifiers: Hypertension type: essential hypertension Plan to address problem: Management as per primary care. Subjective Date of service: 05/26/21 Principal diagnosis: Septic shock; Pulm fibrosis; Hypoxemic resp failure; COVID- 19 infxn Interval history: 51-year-old female with history of COPD, Hypertension and pancreatic cancer comes in for right upper quadrant pain since 2 AM. Pain is about 10 on a scale of 1-10. Also associated with nausea and vomiting. Patient is on radiation therapy for pancreatic cancer. Patient also has a history of pulmonary fibrosis and is on 2 L nasal cannula oxygen. Vomited about 3-4 times. No fever or chills. No aggravating or relieving factors. No exposure to coronavirus. Patient has history of smoking. Not smoking. Denies alcohol or drug abuse. Patient is in deep sleep. Not responding to verbal stimuli. Patient is on BIPAP 15/10, rate 18, FIO2 80%. O2 saturation 92% . Mild increase in work of breathing. Patient afebrile. Has leukocytosis. Blood pressure 118/71, pulse 102, respirations 17. Chest xray done 05/13/21 reported No acute change since 03/19/2019. Interstitial lung disease or early pulmonary fibrosis is suspected and unchanged. Patient has angio CT of chest done on 05/11/[address] evidence for pulmonary embolism. Bilateral interstitial opacity remains with overall mild worsening Mild fluid-filled esophagus. The stomach is also distended with fluid. Chest xray done 05/24/21 reported Feeding tube courses beneath the diaphragm with tip not visualized. Improving airspace disease. Patient is on Budesonide/Brovanna aerosol treatments, Decadron, S/C Lovenox in therapeutic dose, Protonix, Objective Vital Signs - 12hr 05/26/21 05/26/21 05/26/21 09:00 09:27 09:31 Temperature Pulse Rate 99 H 110 H 110 H Pulse Rate [ Bilateral Throughout] Pulse Rate [ From Monitor] Respiratory 25 H 32 H 30 H Rate Respiratory Rate [Bilateral Throughout] Blood Pressure 124/67 124/67 124/67 O2 Sat by Pulse 92 93 95 Oximetry 05/26/21 05/26/21 05/26/21 09:59 10:00 10:31 Temperature Pulse Rate 109 H 96 H Pulse Rate [ 111 H Bilateral Throughout] Pulse Rate [ From Monitor] Respiratory 31 H 21 Rate Respiratory 34 H Rate [Bilateral Throughout] Blood Pressure 118/70 118/70 O2 Sat by Pulse 94 93 Oximetry 05/26/21 05/26/21 05/26/21 11:00 11:31 12:00 Temperature 98.6 F Pulse Rate 118 H 114 H 107 H Pulse Rate [ Bilateral Throughout] Pulse Rate [ 72 From Monitor] Respiratory 22 30 H 22 Rate Respiratory Rate [Bilateral Throughout] Blood Pressure 111/66 111/66 103/68 O2 Sat by Pulse 91 91 95 Oximetry 05/26/21 05/26/21 05/26/21 12:31 12:41 13:00 Temperature Pulse Rate 100 H 94 H 95 H Pulse Rate [ Bilateral Throughout] Pulse Rate [ From Monitor] Respiratory 21 28 H 20 Rate Respiratory Rate [Bilateral Throughout] Blood Pressure 103/68 103/68 114/69 O2 Sat by Pulse 96 96 98 Oximetry 05/26/21 05/26/21 05/26/21 13:31 14:00 14:31 Temperature Pulse Rate 115 H 104 H 110 H Pulse Rate [ Bilateral Throughout] Pulse Rate [ From Monitor] Respiratory 25 H 22 26 H Rate Respiratory Rate [Bilateral Throughout] Blood Pressure 114/69 91/63 91/63 O2 Sat by Pulse 94 97 92 Oximetry 05/26/21 05/26/21 05/26/21 15:00 15:31 16:00 Temperature 98 F Pulse Rate 106 H 100 H 76 Pulse Rate [ Bilateral Throughout] Pulse Rate [ 69 From Monitor] Respiratory 31 H 28 H 16 Rate Respiratory Rate [Bilateral Throughout] Blood Pressure 107/66 107/66 93/75 O2 Sat by Pulse 95 96 95 Oximetry 05/26/21 05/26/21 05/26/21 16:31 17:01 17:31 Temperature Pulse Rate 77 78 107 H Pulse Rate [ Bilateral Throughout] Pulse Rate [ From Monitor] Respiratory 16 16 31 H Rate Respiratory Rate [Bilateral Throughout] Blood Pressure 93/75 105/78 105/78 O2 Sat by Pulse 94 94 87 Oximetry 05/26/21 05/26/21 05/26/21 18:00 18:31 19:00 Temperature Pulse Rate 82 90 94 H Pulse Rate [ Bilateral Throughout] Pulse Rate [ From Monitor] Respiratory 17 18 18 Rate Respiratory Rate [Bilateral Throughout] Blood Pressure 109/82 109/82 108/65 O2 Sat by Pulse 92 92 95 Oximetry 05/26/21 05/26/21 19:31 19:50 Temperature 97.4 F L Pulse Rate 95 H Pulse Rate [ Bilateral Throughout] Pulse Rate [ From Monitor] Respiratory 20 Rate Respiratory Rate [Bilateral Throughout] Blood Pressure 108/65 O2 Sat by Pulse 94 Oximetry Constitutional: asleep, appears uncomfortable, other (mildly increased respiratory effort at rest ) Eyes: non-icteric ENT: oropharynx moist Neck: supple, no lymphadenopathy, no JVD Effort: mildly labored Ascultation: Bilateral: diminished breath sounds, rales (posterior bases) Percussion: Bilateral: not dull Cardiovascular: regular rate and rhythm, other (S1,S2) Gastrointestinal: normoactive bowel sounds, hypoactive bowel sounds, soft, non- distended (protuberant) Integumentary: normal Extremities: no cyanosis, no edema, pulses normal, other (right femoral CVL) Neurologic: normal mental status, non-focal exam, pupils equal and round, other (somnolent) Psychiatric: mood appropriate, affect normal, other (somnolenet) CBC and BMP: 05/25/21 04:25 05/25/21 04:25 ABG, PT/INR, D-dimer: ABG ABG pH 7.482 pH Units (7.350-7.450) H 05/19/21 14:14 ABG pCO2 42.9 mm Hg 05/19/21 14:14 ABG pO2 111.7 mm Hg (80.0-90.0) H 05/19/21 14:14 ABG O2 Saturation 98.2 % (95.0-99.0) 05/19/21 14:14 PT/INR, D-dimer PT 16.9 Sec. (12.2-14.9) H 05/23/21 10:15 INR 1.24 (0.87-1.13) H 05/23/21 10:15 Abnormal lab findings: Abnormal Labs 05/11/21 05/11/2105/11/21 05:43 05:43 05:43 WBC RBC Hgb MCV 98 H RDW 17.7 H Plt Count Lymph % (Auto) 10.8 L Lymph # (Auto) 0.6 L Seg Neutrophils % 84.1 H Seg Neuts % (Manual) Lymphocytes % (Manual) Seg Neutrophils # Man Lymphocytes # (Manual) PT 16.0 H INR 1.16 H ABG pH ABG pO2 ABG HCO3 ABG Base Excess ABG Hemoglobin Oxyhemoglobin Sodium Potassium Chloride Carbon Dioxide 21 L BUN 4 L Creatinine 0.4 L Glucose POC Glucose Lactic Acid Calcium 8.3 L Phosphorus Magnesium Total Bilirubin 2.10 H Direct Bilirubin 1.4 H AST 335 H ALT 57 H Alkaline Phosphatase 339 H Total Protein Albumin 2.4 L Lipase 3 L Ur Specific [place] Vancomycin Trough 05/11/21 05/11/21 05/12/21 11:18 12:28 04:08 WBC RBC Hgb MCV RDW Plt Count Lymph % (Auto) Lymph # (Auto) Seg Neutrophils % Seg Neuts % (Manual) Lymphocytes % (Manual) Seg Neutrophils # Man Lymphocytes # (Manual) PT INR ABG pH ABG pO2 ABG HCO3 ABG Base Excess ABG Hemoglobin Oxyhemoglobin Sodium Potassium Chloride Carbon Dioxide BUN Creatinine Glucose POC Glucose Lactic Acid 4.20 H* 4.50 H* Calcium Phosphorus Magnesium Total Bilirubin Direct Bilirubin AST ALT Alkaline Phosphatase Total Protein Albumin Lipase Ur Specific [place] 1.035 H Vancomycin Trough 05/12/21 05/12/21 05/12/21 04:08 04:08 09:47 WBC 22.8 H RBC 3.39 L Hgb MCV 98 H RDW 17.7 H Plt Count Lymph % (Auto) Lymph # (Auto) Seg Neutrophils % Seg Neuts % (Manual) 85.5 H Lymphocytes % (Manual) 2.0 L Seg Neutrophils # Man 19.5 H Lymphocytes # (Manual) 0.5 L PT INR ABG pH ABG pO2 ABG HCO3 ABG Base Excess ABG Hemoglobin Oxyhemoglobin Sodium Potassium 3.3 L Chloride 108.9 H Carbon Dioxide 17 L BUN 4 L Creatinine 0.5 L Glucose 106 H POC Glucose Lactic Acid 2.60 H* Calcium 6.4 L D Phosphorus Magnesium Total Bilirubin 2.10 H Direct Bilirubin AST 156 H ALT 61 H Alkaline Phosphatase 317 H Total Protein 5.4 L D Albumin 1.8 L Lipase Ur Specific [place] Vancomycin Trough 05/12/21 05/12/21 05/12/21 11:47 12:30 12:36 WBC RBC Hgb MCV RDW Plt Count Lymph % (Auto) Lymph # (Auto) Seg Neutrophils % Seg Neuts % (Manual) Lymphocytes % (Manual) Seg Neutrophils # Man Lymphocytes # (Manual) PT INR ABG pH ABG pO2 ABG HCO3 ABG Base Excess ABG Hemoglobin Oxyhemoglobin Sodium Potassium Chloride Carbon Dioxide BUN Creatinine Glucose POC Glucose 59 L 120 H Lactic Acid 2.50 H* Calcium Phosphorus Magnesium Total Bilirubin Direct Bilirubin AST ALT Alkaline Phosphatase Total Protein Albumin Lipase Ur Specific [place] Vancomycin Trough 05/12/21 05/12/21 05/13/21 23:45 Unknown 04:00 WBC 19.8 H RBC 3.52 L Hgb MCV 98 H RDW 18.5 H Plt Count Lymph % (Auto) Lymph # (Auto) Seg Neutrophils % Seg Neuts % (Manual) Lymphocytes % (Manual) Seg Neutrophils # Man Lymphocytes # (Manual) PT INR ABG pH ABG pO2 ABG HCO3 ABG Base Excess ABG Hemoglobin Oxyhemoglobin Sodium Potassium Chloride Carbon Dioxide BUN Creatinine Glucose POC Glucose 119 H Lactic Acid 3.30 H* Calcium Phosphorus Magnesium Total Bilirubin Direct Bilirubin AST ALT Alkaline Phosphatase Total Protein Albumin Lipase Ur Specific [place] Vancomycin Trough 05/13/21 05/13/21 05/13/21 04:00 05:42 12:19 WBC RBC Hgb MCV RDW Plt Count Lymph % (Auto) Lymph # (Auto) Seg Neutrophils % Seg Neuts % (Manual) Lymphocytes % (Manual) Seg Neutrophils # Man Lymphocytes # (Manual) PT INR ABG pH ABG pO2 ABG HCO3 ABG Base Excess ABG Hemoglobin Oxyhemoglobin Sodium Potassium 3.4 L Chloride 107.1 H Carbon Dioxide 19 L BUN 4 L Creatinine 0.4 L Glucose 157 H POC Glucose 143 H 110 H Lactic Acid Calcium 7.4 L D Phosphorus 1.60 L Magnesium 1.50 L Total Bilirubin 1.40 H Direct Bilirubin AST 95 H ALT Alkaline Phosphatase 328 H Total Protein 5.5 L Albumin 1.6 L Lipase Ur Specific [place] Vancomycin Trough 05/14/21 05/14/21 05/14/21 06:15 06:15 10:25 WBC 11.7 H RBC 3.41 L Hgb MCV 98 H RDW 18.6 H Plt Count Lymph % (Auto) Lymph # (Auto) Seg Neutrophils % Seg Neuts % (Manual) Lymphocytes % (Manual) Seg Neutrophils # Man Lymphocytes # (Manual) PT INR ABG pH ABG pO2 76.0 L ABG HCO3 27.2 H ABG Base Excess ABG Hemoglobin 11.5 L Oxyhemoglobin 94.4 L Sodium Potassium 3.2 L Chloride Carbon Dioxide BUN 6 L Creatinine 0.5 L Glucose 103 H POC Glucose Lactic Acid Calcium 7.3 L Phosphorus 1.70 L Magnesium Total Bilirubin Direct Bilirubin AST 66 H ALT Alkaline Phosphatase 295 H Total Protein 5.3 L Albumin 1.8 L Lipase Ur Specific [place] Vancomycin Trough 05/14/21 05/14/21 05/14/21 15:20 15:20 17:26 WBC RBC Hgb MCV RDW Plt Count Lymph % (Auto) Lymph # (Auto) Seg Neutrophils % Seg Neuts % (Manual) Lymphocytes % (Manual) Seg Neutrophils # Man Lymphocytes # (Manual) PT INR ABG pH ABG pO2 ABG HCO3 ABG Base Excess ABG Hemoglobin Oxyhemoglobin Sodium 146 H D Potassium Chloride 108.4 H Carbon Dioxide BUN 5 L Creatinine 0.5 L Glucose POC Glucose 63 L Lactic Acid Calcium 7.6 L Phosphorus Magnesium Total Bilirubin Direct Bilirubin AST ALT Alkaline Phosphatase Total Protein Albumin Lipase Ur Specific [place] Vancomycin Trough 25.3 H 05/14/21 05/15/21 05/15/21 21:27 00:03 00:29 WBC RBC Hgb MCV RDW Plt Count Lymph % (Auto) Lymph # (Auto) Seg Neutrophils % Seg Neuts % (Manual) Lymphocytes % (Manual) Seg Neutrophils # Man Lymphocytes # (Manual) PT INR ABG pH ABG pO2 ABG HCO3 ABG Base Excess ABG Hemoglobin Oxyhemoglobin Sodium Potassium Chloride Carbon Dioxide BUN Creatinine Glucose POC Glucose 52 L 54 L 129 H Lactic Acid Calcium Phosphorus Magnesium Total Bilirubin Direct Bilirubin AST ALT Alkaline Phosphatase Total Protein Albumin Lipase Ur Specific [place] Vancomycin Trough 05/15/21 05/15/21 05/15/21 04:45 04:45 11:58 WBC RBC 3.24 L Hgb MCV 98 H RDW 18.5 H Plt Count 122 L Lymph % (Auto) 7.4 L Lymph # (Auto) 0.6 L Seg Neutrophils % 81.2 H Seg Neuts % (Manual) Lymphocytes % (Manual) Seg Neutrophils # Man Lymphocytes # (Manual) PT INR ABG pH ABG pO2 ABG HCO3 ABG Base Excess ABG Hemoglobin Oxyhemoglobin Sodium 146 H Potassium 3.1 L Chloride 108.8 H Carbon Dioxide BUN 6 L Creatinine Glucose 121 H POC Glucose 68 L Lactic Acid Calcium 7.5 L Phosphorus 2.30 L D Magnesium Total Bilirubin 1.90 H Direct Bilirubin AST 55 H ALT Alkaline Phosphatase 231 H Total Protein 5.4 L Albumin 1.5 L Lipase Ur Specific [place] Vancomycin Trough 05/15/21 05/16/21 05/16/21 13:50 00:06 00:43 WBC RBC Hgb MCV RDW Plt Count Lymph % (Auto) Lymph # (Auto) Seg Neutrophils % Seg Neuts % (Manual) Lymphocytes % (Manual) Seg Neutrophils # Man Lymphocytes # (Manual) PT INR ABG pH ABG pO2 ABG HCO3 ABG Base Excess ABG Hemoglobin Oxyhemoglobin Sodium Potassium Chloride Carbon Dioxide BUN Creatinine Glucose POC Glucose 147 H 54 L 116 H Lactic Acid Calcium Phosphorus Magnesium Total Bilirubin Direct Bilirubin AST ALT Alkaline Phosphatase Total Protein Albumin Lipase Ur Specific [place] Vancomycin Trough 05/16/21 05/16/21 05/16/21 04:31 04:31 05:58 WBC RBC 3.12 L Hgb 9.8 L MCV 98 H RDW 18.2 H Plt Count 115 L Lymph % (Auto) Lymph # (Auto) Seg Neutrophils % Seg Neuts % (Manual) Lymphocytes % (Manual) Seg Neutrophils # Man Lymphocytes # (Manual) PT INR ABG pH ABG pO2 ABG HCO3 ABG Base Excess ABG Hemoglobin Oxyhemoglobin Sodium 146 H Potassium 3.2 L Chloride Carbon Dioxide BUN 5 L Creatinine 0.5 L Glucose POC Glucose 61 L Lactic Acid Calcium 7.2 L Phosphorus 2.30 L Magnesium Total Bilirubin Direct Bilirubin AST ALT Alkaline Phosphatase Total Protein Albumin Lipase Ur Specific [place] Vancomycin Trough 05/16/21 05/16/21 05/17/21 08:11 23:42 04:15 WBC RBC Hgb MCV RDW Plt Count Lymph % (Auto) Lymph # (Auto) Seg Neutrophils % Seg Neuts % (Manual) Lymphocytes % (Manual) Seg Neutrophils # Man Lymphocytes # (Manual) PT INR ABG pH ABG pO2 ABG HCO3 ABG Base Excess ABG Hemoglobin Oxyhemoglobin Sodium Potassium Chloride Carbon Dioxide BUN Creatinine Glucose POC Glucose 58 L 200 H Lactic Acid Calcium Phosphorus Magnesium Total Bilirubin 1.70 H Direct Bilirubin 1.5 H AST 43 H ALT Alkaline Phosphatase 196 H Total Protein 5.4 L Albumin 1.6 L Lipase Ur Specific [place] Vancomycin Trough 05/17/21 05/17/21 05/17/21 04:15 04:15 05:07 WBC RBC 3.26 L Hgb MCV 98 H RDW 18.9 H Plt Count 114 L Lymph % (Auto) Lymph # (Auto) Seg Neutrophils % Seg Neuts % (Manual) Lymphocytes % (Manual) Seg Neutrophils # Man Lymphocytes # (Manual) PT INR ABG pH ABG pO2 ABG HCO3 ABG Base Excess ABG Hemoglobin Oxyhemoglobin Sodium Potassium Chloride Carbon Dioxide 35 H BUN 5 L Creatinine Glucose 274 H POC Glucose 249 H Lactic Acid Calcium 7.7 L Phosphorus 1.50 L D Magnesium Total Bilirubin Direct Bilirubin AST ALT Alkaline Phosphatase Total Protein Albumin Lipase Ur Specific [place] Vancomycin Trough 05/17/21 05/17/21 05/17/21 11:56 16:29 23:37 WBC RBC Hgb MCV RDW Plt Count Lymph % (Auto) Lymph # (Auto) Seg Neutrophils % Seg Neuts % (Manual) Lymphocytes % (Manual) Seg Neutrophils # Man Lymphocytes # (Manual) PT INR ABG pH ABG pO2 ABG HCO3 ABG Base Excess ABG Hemoglobin Oxyhemoglobin Sodium Potassium Chloride Carbon Dioxide BUN Creatinine Glucose POC Glucose 176 H 219 H 150 H Lactic Acid Calcium Phosphorus Magnesium Total Bilirubin Direct Bilirubin AST ALT Alkaline Phosphatase Total Protein Albumin Lipase Ur Specific [place] Vancomycin Trough 05/18/21 05/18/21 05/18/21 04:00 05:22 09:00 WBC RBC 3.34 L Hgb MCV RDW 18.8 H Plt Count Lymph % (Auto) Lymph # (Auto) Seg Neutrophils % Seg Neuts % (Manual) Lymphocytes % (Manual) Seg Neutrophils # Man Lymphocytes # (Manual) PT INR ABG pH ABG pO2 ABG HCO3 ABG Base Excess ABG Hemoglobin Oxyhemoglobin Sodium Potassium 5.4 H D Chloride 97.5 L Carbon Dioxide 33 H BUN Creatinine 0.4 L Glucose 461 H POC Glucose 181 H Lactic Acid Calcium 7.2 L Phosphorus 5.00 H D Magnesium Total Bilirubin Direct Bilirubin AST ALT Alkaline Phosphatase Total Protein Albumin Lipase Ur Specific [place] Vancomycin Trough 05/18/21 05/18/21 05/18/21 11:16 12:50 16:29 WBC RBC Hgb MCV RDW Plt Count Lymph % (Auto) Lymph # (Auto) Seg Neutrophils % Seg Neuts % (Manual) Lymphocytes % (Manual) Seg Neutrophils # Man Lymphocytes # (Manual) PT INR ABG pH ABG pO2 ABG HCO3 ABG Base Excess ABG Hemoglobin Oxyhemoglobin Sodium Potassium 3.4 L D Chloride Carbon Dioxide 36 H BUN 19 H Creatinine 0.4 L Glucose 231 H POC Glucose 168 H 196 H Lactic Acid Calcium 7.5 L Phosphorus 1.80 L D Magnesium Total Bilirubin Direct Bilirubin AST ALT Alkaline Phosphatase Total Protein Albumin Lipase Ur Specific [place] Vancomycin Trough 05/19/21 05/19/21 05/19/21 00:05 04:08 05:07 WBC RBC Hgb MCV RDW Plt Count Lymph % (Auto) Lymph # (Auto) Seg Neutrophils % Seg Neuts % (Manual) Lymphocytes % (Manual) Seg Neutrophils # Man Lymphocytes # (Manual) PT INR ABG pH ABG pO2 ABG HCO3 ABG Base Excess ABG Hemoglobin Oxyhemoglobin Sodium 146 H Potassium Chloride Carbon Dioxide 35 H BUN 25 H Creatinine 0.4 L Glucose 218 H POC Glucose 164 H 203 H Lactic Acid Calcium 7.2 L Phosphorus Magnesium Total Bilirubin Direct Bilirubin AST ALT Alkaline Phosphatase Total Protein Albumin Lipase Ur Specific [place] Vancomycin Trough 05/19/21 05/19/21 05/19/21 12:16 14:14 17:11 WBC RBC Hgb MCV RDW Plt Count Lymph % (Auto) Lymph # (Auto) Seg Neutrophils % Seg Neuts % (Manual) Lymphocytes % (Manual) Seg Neutrophils # Man Lymphocytes # (Manual) PT INR ABG pH 7.482 H ABG pO2 111.7 H ABG HCO3 31.4 H ABG Base Excess 7.2 H ABG Hemoglobin 11.1 L Oxyhemoglobin Sodium Potassium Chloride Carbon Dioxide BUN Creatinine Glucose POC Glucose 206 H 194 H Lactic Acid Calcium Phosphorus Magnesium Total Bilirubin Direct Bilirubin AST ALT Alkaline Phosphatase Total Protein Albumin Lipase Ur Specific [place] Vancomycin Trough 05/20/21 05/20/21 05/20/21 00:01 04:30 06:09 WBC RBC Hgb MCV RDW Plt Count Lymph % (Auto) Lymph # (Auto) Seg Neutrophils % Seg Neuts % (Manual) Lymphocytes % (Manual) Seg Neutrophils # Man Lymphocytes # (Manual) PT INR ABG pH ABG pO2 ABG HCO3 ABG Base Excess ABG Hemoglobin Oxyhemoglobin Sodium Potassium 3.5 L Chloride Carbon Dioxide BUN 24 H Creatinine 0.3 L Glucose 254 H POC Glucose 209 H 210 H Lactic Acid Calcium 7.5 L Phosphorus 1.90 L D Magnesium Total Bilirubin 1.60 H Direct Bilirubin AST 201 H ALT 170 H Alkaline Phosphatase 169 H Total Protein 5.3 L Albumin 1.9 L Lipase Ur Specific [place] Vancomycin Trough 05/20/21 05/20/21 05/20/21 11:41 16:47 22:21 WBC RBC Hgb MCV RDW Plt Count Lymph % (Auto) Lymph # (Auto) Seg Neutrophils % Seg Neuts % (Manual) Lymphocytes % (Manual) Seg Neutrophils # Man Lymphocytes # (Manual) PT INR ABG pH ABG pO2 ABG HCO3 ABG Base Excess ABG Hemoglobin Oxyhemoglobin Sodium Potassium Chloride Carbon Dioxide BUN Creatinine Glucose POC Glucose 158 H 232 H 211 H Lactic Acid Calcium Phosphorus Magnesium Total Bilirubin Direct Bilirubin AST ALT Alkaline Phosphatase Total Protein Albumin Lipase Ur Specific [place] Vancomycin Trough 05/21/21 05/21/21 05/21/21 00:35 04:00 04:00 WBC RBC 3.28 L Hgb MCV RDW 18.7 H Plt Count 125 L Lymph % (Auto) Lymph # (Auto) Seg Neutrophils % Seg Neuts % (Manual) Lymphocytes % (Manual) Seg Neutrophils # Man Lymphocytes # (Manual) PT INR ABG pH ABG pO2 ABG HCO3 ABG Base Excess ABG Hemoglobin Oxyhemoglobin Sodium Potassium 5.1 H D Chloride 108.7 H Carbon Dioxide BUN 21 H Creatinine 0.2 L Glucose 242 H POC Glucose 230 H Lactic Acid Calcium 7.3 L Phosphorus Magnesium Total Bilirubin Direct Bilirubin AST ALT Alkaline Phosphatase Total Protein Albumin Lipase Ur Specific [place] Vancomycin Trough 05/21/21 05/21/21 05/21/21 05:08 11:47 17:43 WBC RBC Hgb MCV RDW Plt Count Lymph % (Auto) Lymph # (Auto) Seg Neutrophils % Seg Neuts % (Manual) Lymphocytes % (Manual) Seg Neutrophils # Man Lymphocytes # (Manual) PT INR ABG pH ABG pO2 ABG HCO3 ABG Base Excess ABG Hemoglobin Oxyhemoglobin Sodium Potassium Chloride Carbon Dioxide BUN Creatinine Glucose POC Glucose 196 H 139 H 147 H Lactic Acid Calcium Phosphorus Magnesium Total Bilirubin Direct Bilirubin AST ALT Alkaline Phosphatase Total Protein Albumin Lipase Ur Specific [place] Vancomycin Trough 05/21/21 05/21/21 05/22/21 17:57 23:32 04:16 WBC RBC Hgb MCV RDW Plt Count Lymph % (Auto) Lymph # (Auto) Seg Neutrophils % Seg Neuts % (Manual) Lymphocytes % (Manual) Seg Neutrophils # Man Lymphocytes # (Manual) PT INR ABG pH ABG pO2 ABG HCO3 ABG Base Excess ABG Hemoglobin Oxyhemoglobin Sodium Potassium 5.2 H Chloride Carbon Dioxide BUN 19 H Creatinine 0.2 L Glucose 154 H POC Glucose 218 H 185 H Lactic Acid Calcium 7.5 L Phosphorus Magnesium Total Bilirubin 3.00 H Direct Bilirubin 2.3 H AST 437 H ALT 462 H Alkaline Phosphatase 186 H Total Protein 5.5 L Albumin 1.9 L Lipase Ur Specific [place] Vancomycin Trough 05/22/21 05/22/21 05/22/21 04:30 04:30 04:30 WBC RBC Hgb MCV RDW Plt Count Lymph % (Auto) Lymph # (Auto) Seg Neutrophils % Seg Neuts % (Manual) Lymphocytes % (Manual) Seg Neutrophils # Man Lymphocytes # (Manual) PT 19.5 H INR 1.49 H ABG pH ABG pO2 ABG HCO3 ABG Base Excess ABG Hemoglobin Oxyhemoglobin Sodium 134 L Potassium Chloride Carbon Dioxide BUN 19 H Creatinine 0.2 L Glucose 208 H POC Glucose Lactic Acid Calcium 7.2 L Phosphorus 2.40 L D Magnesium Total Bilirubin 2.20 H Direct Bilirubin AST 350 H ALT 496 H Alkaline Phosphatase 167 H Total Protein 4.8 L Albumin 1.7 L Lipase Ur Specific [place] Vancomycin Trough 05/22/21 05/22/21 05/22/21 11:59 17:16 23:07 WBC RBC Hgb MCV RDW Plt Count Lymph % (Auto) Lymph # (Auto) Seg Neutrophils % Seg Neuts % (Manual) Lymphocytes % (Manual) Seg Neutrophils # Man Lymphocytes # (Manual) PT INR ABG pH ABG pO2 ABG HCO3 ABG Base Excess ABG Hemoglobin Oxyhemoglobin Sodium Potassium Chloride Carbon Dioxide BUN Creatinine Glucose POC Glucose 204 H 244 H 226 H Lactic Acid Calcium Phosphorus Magnesium Total Bilirubin Direct Bilirubin AST ALT Alkaline Phosphatase Total Protein Albumin Lipase Ur Specific [place] Vancomycin Trough 05/23/21 05/23/21 05/23/21 05:09 10:15 10:15 WBC RBC Hgb MCV RDW Plt Count Lymph % (Auto) Lymph # (Auto) Seg Neutrophils % Seg Neuts % (Manual) Lymphocytes % (Manual) Seg Neutrophils # Man Lymphocytes # (Manual) PT 16.9 H INR 1.24 H ABG pH ABG pO2 ABG HCO3 ABG Base Excess ABG Hemoglobin Oxyhemoglobin Sodium 131 L Potassium Chloride 97.5 L Carbon Dioxide BUN Creatinine < 0.2 L Glucose 248 H POC Glucose 175 H Lactic Acid Calcium 7.4 L Phosphorus Magnesium 1.60 L Total Bilirubin Direct Bilirubin AST ALT Alkaline Phosphatase Total Protein Albumin Lipase Ur Specific [place] Vancomycin Trough 05/23/21 05/23/21 05/24/21 10:15 21:46 04:16 WBC RBC Hgb MCV RDW Plt Count Lymph % (Auto) Lymph # (Auto) Seg Neutrophils % Seg Neuts % (Manual) Lymphocytes % (Manual) Seg Neutrophils # Man Lymphocytes # (Manual) PT INR ABG pH ABG pO2 ABG HCO3 ABG Base Excess ABG Hemoglobin Oxyhemoglobin Sodium 130 L Potassium 3.5 L Chloride 97.1 L Carbon Dioxide BUN Creatinine 0.2 L Glucose 235 H POC Glucose 190 H Lactic Acid Calcium 6.8 L Phosphorus Magnesium Total Bilirubin 2.30 H Direct Bilirubin 1.6 H AST 161 H ALT 396 H Alkaline Phosphatase 186 H Total Protein 4.7 L Albumin 2.0 L Lipase Ur Specific [place] Vancomycin Trough 05/24/21 05/25/21 05/25/21 05:32 04:25 04:25 WBC 11.7 H RBC 3.28 L Hgb MCV RDW 19.9 H Plt Count Lymph % (Auto) Lymph # (Auto) Seg Neutrophils % Seg Neuts % (Manual) Lymphocytes % (Manual) Seg Neutrophils # Man Lymphocytes # (Manual) PT INR ABG pH ABG pO2 ABG HCO3 ABG Base Excess ABG Hemoglobin Oxyhemoglobin Sodium 135 L Potassium 3.4 L Chloride Carbon Dioxide BUN Creatinine 0.2 L Glucose 105 H POC Glucose 208 H Lactic Acid Calcium 7.6 L Phosphorus Magnesium Total Bilirubin Direct Bilirubin AST ALT Alkaline Phosphatase Total Protein Albumin Lipase Ur Specific [place] Vancomycin Trough 05/26/21 05/26/21 11:37 16:57 WBC RBC Hgb MCV RDW Plt Count Lymph % (Auto) Lymph # (Auto) Seg Neutrophils % Seg Neuts % (Manual) Lymphocytes % (Manual) Seg Neutrophils # Man Lymphocytes # (Manual) PT INR ABG pH ABG pO2 ABG HCO3 ABG Base Excess ABG Hemoglobin Oxyhemoglobin Sodium Potassium Chloride Carbon Dioxide BUN Creatinine Glucose POC Glucose 136 H 214 H Lactic Acid Calcium Phosphorus Magnesium Total Bilirubin Direct Bilirubin AST ALT Alkaline Phosphatase Total Protein Albumin Lipase Ur Specific [place] Vancomycin Trough Chest x-ray: report reviewed, image reviewed Additional Studies: XR chest 1V ap 12/30/21 INDICATION / CLINICAL INFORMATION: s/p dobhoff placement. COMPARISON: 05/15/2021 FINDINGS: SUPPORT DEVICES: Enteric tube courses beneath the diaphragm. Right port terminates in the lower SVC. HEART / MEDIASTINUM: Unchanged. LUNGS / PLEURA: Persistent but improving airspace disease. No pneumothorax. ADDITIONAL FINDINGS: No significant additional findings. IMPRESSION: 1. Feeding tube courses beneath the diaphragm with tip not visualized. 2. Improving airspace disease. Allied health notes reviewed: nursing
[2021-05-26] MEDS: INSULIN GLARGINE 100 UNITS/ML SUB-Q SCH (21:02)
[2021-05-27] MEDS: HALOPERIDOL LACTATE 5 MG/1 ML INJ IV PRN ×3 (00:15→17:47)
[2021-05-27] MEDS: INSULIN LISPRO 100 UNIT/ML SUB-Q SCH ×5 (00:16→19:23)
[2021-05-27] MEDS: HYDROmorphone 1 MG/1 ML INJ IV PRN ×5 (01:40→21:12)
[2021-05-27] MEDS: DICYCLOMINE 10 MG CAP PO SCH ×4 (10:12→21:12)
[2021-05-27] MEDS: dexAMETHasone 4 MG/ML VIAL IV SCH (10:23)
[2021-05-27] MEDS: ENOXAPARIN 80 MG/0.8 ML INJ SUB-Q SCH ×2 (10:23→21:13)
[2021-05-27] MEDS: PANTOPRAZOLE 40 MG INJ IV SCH (10:24)
[2021-05-27] MEDS: FUROSEMIDE 20 MG/2 ML INJ IV SCH (10:24)
[2021-05-27] MEDS: ARFORMOTEROL 15 MCG/2 ML NEBU IH SCH ×2 (11:41→21:41)
[2021-05-27] MEDS: BUDESONIDE 0.5 MG/2 ML NEBU IH SCH ×2 (11:42→21:41)
--- NOTE | 2021-05-27 11:42 | Progress Note ---
Assessment and Plan Assessment and plan: Interval history: This is a 51-year-old female with COPD, pancreatic cancer and radiation, s/p pancreatic stent placement, pulmonary fibrosis, hypertension and chronic respiratory failure on 2 L oxygen via nasal cannula who presented to emergency department on 05/11 with complaints of right upper quadrant pain which started approximately at 0200 with nausea and vomiting. Work-up in the emergency department included a CTA chest which showed no pulmonary embolism, mild fluid- filled esophagus and distended stomach with bilateral interstitial opacity in the chest, and CT abdomen/pelvis with contrast which showed persistent pancreatic carcinoma with indwelling metallic stent which is suspected to be occluded. Lab work revealed leukocytosis, transaminitis and lactic acidosis. Patient became hypotensive in the emergency department and required 3 L of IV fluid and was eventually started on vasopressors after placement of femoral central line. Patient was started on empiric antibiotics. Admitted to the hospitalist service with consults to GI and [facility] for transaminitis, possible sepsis, and lactic acidosis. 05/12: Patient remains on high-dose Levophed and vasopressin. Given 1 L LR bolus. GI would like an MRCP to be conducted which has been ordered. Patient cleared for sips of water. Added Tessalon due to severe cough. Potassium repleted. Covid PCR negative. 05/13: Remains on Levophed and vasopressin has been off since yesterday evening. Started on stress dose steroids. MRCP pending. Hypokalemia, hypomagnesemia and hypophosphatemia repleted. Liver enzymes trending down. Started on D5 normal saline yesterday. 05/14: Patient with worsen respiratory status this am, tachypneic with increased O2 requirement. On full support on the Bipap this am with worsening diffuse bilateral opacities on CXR, s/p X1 dose of IV lasix overnight. Patient remains afebrile with no leukocytosis. Will continue IV Lasix X3 doses, f/u CXR in the am. D/W CCM due to patient worsening respiratory status hold on MRCP for today. Patient is off Levophed this am, leave pressors on standby might need to be put back on low dose pressors with IV diuretic. Patient also noted with Rt. fem CVC which was inserted in the ED, most likely due to be change, unsuccessfult PICC by IVT today and patient is refusing Port access at this time. 05/15: Patient remains on continuous Bipap overnight, desat when bipap is removed for mouth care. Plan to wean Fio2 as tolerated for SPO2 goal above 90%. Febrile overnight, TMAX 101.4, on IV abx zosyn, repeat blood culture ordered. Low K and phosph repleted, repeat labs in the am. 05/16: Patient back on full support on the Bipap, still not tolerating FiO2 wean, patient desat in the 80s. D/w CCM plan to continue continuous bipap for now, patient going on over 4 days with no nutrition plan to initiate TPN tomorrow. D10w gtt added for hypoglycemia. Patient platelet continue to steadily drop, given patient's history with continue AC for now, H&H is stable, no s/s of any active bleeding. Electrolytes repleted, will continue to trend CBC, BMP, mg, and phos. MRCP canceled, plan to reorder once patient's respiratory status is more stable. 05/17: Patient remains on continuous Bipap. Patient remains on low dose Levophe d, plan to wean off pressors as tolerated for a MAP above 65. Clinimix initiated overnight, plan to start TPN tonight. Hyperglycemic overnight, SSI was initiated. Low phos repleted, repeat lab in the am. 05/18: Down to 60% FIo2 on the Bipap, SPO2 above 97%. Off pressros this am, TPN is running. Patient is now hyperglycemic, SSI adjusted. Consider basal dose, lantus if hyperglycemia persist. This am labs noted, hyperkalemia and really high glucose noted totally different from normal trend, orders placed for redraw. 05/19: Overnight events noted. Started on PRN haldol for agitation. Patient pl aced on heated high Flow at 100%, 40L SPO2 at 100%. Continue to wean Fio2 as tolerated for SPO2 for SPO2 above 92%. Continue TPN for now. Patient still hyperglycemic basal dose lantus added Qhs. 05/20: Patient is tolerating HHFL NC, SPO2 above 95%. Continue HHFL NC during and Bipap at night. Still on TPN for nutrition, hyperglycemia persists- basal insulin increased. Low K and phosp was repleted, repeat lab in the am. 05/21: Patient unable to tolerate OptiFlow for more than couple hours and was placed back on BiPAP due to desaturation. Patient remains on TPN for nutrition which was held today due to hyperkalemia. P.m. BMP ordered but not collected. Patient refused to have port accessed and PICC line ordered. Down grading to [facility] status 05/21 abdominal ultrasound shows findings of emergency megaly and steatosis without other significant abnormality in the right upper quadrant. ST eval ordered and Ntr consult for cyclic TF. midline ordered 05/23/ Patient with acute on chronic resp failure, COPD, pancreatic cancer. She has been transferred to [facility]. She is on BIPAP Hypomag. Replace and recheck in am 05/24/21 Patient with acute on chronic resp failure. Still on BIPAP To start tube feeding 05/25/21 Patient with acute on chronic respiratory failure She desaturated down to Oxygen sat 85% today Will order CT Angio to r/o pulmonary embolism 05/26/21: patient remains on bipap, o2 sat in 90s. CT angio not completed yesterday as patient could not lay flat. Add dilaudid for improved pain control to patient medications and advised staffing director to re-attempt CT angio. Patient has a poor prognosis given pulmonary fibrosis and pancreatic cancer. Will likely re- visit talks of palliaitive care as she may benefit more from this. 05/27/21: Remains bipap dependent. D/w patient regarding comfort care/hospice, she is interested. CM consulted. Patient would still like to remain full code Assessment and Plan Assessment and plan: This is a 48-year-old female with COPD, pancreatic cancer with radiation s/p pancreatic stent placement, pulmonary fibrosis, chronic respiratory failure on 2 L nasal cannula admitted with sepsis, transaminitis and lactic acidosis. Neuro: NAD -Avoid delirium -Reorientation as needed -Maintain sleep-wake cycle CV: Hypotension, h/o HTN -Hold home htn medications -s/p vasopressor support with levo and vasopressin -BP monitoring per protocol -CCM consulted, appreciate recommendations -Hold home htn medications -s/p IV Lasix X 3days Respiratory: h/o pulmonary fibrosis, acute on chronic respiratory failure on home O2 of 2 L nasal cannula -Supplemental oxygen as needed -Tessalon Perles as needed for cough -SPO2 monitoring -Pulmonary hygiene -Bipap q hs and prn -Optiflow as tolerated -Wean FiO2 as tolerated -Pulmonary hygiene GI: Transaminitis, protein calorie malnutrition, biliary dilation, r/o cholangitis, h/o pancreatic cancer s/p stent placement -CT abdomen/pelvis showed pancreatic cancer with metallic stent with possible occlusion, mild pelvic fluid and mild colonic thickening -GI consulted, patient recommendations -MRCP pending-> plan for once respiratory status stable -If stent occlusion/biliary obstruction would recommend IR consult for PTC drain per GI -TPN -start cyclic tube feedings -ST evaluation -PPI -BR to start once taking p.o. -24-hour +390 -Acute hepatitis panel negative -Trend LFTs -Abd US shows findings similar to hepatomegaly and steatosis without significant abnormalities in the right quadrant : Hypophosphatemia -Strict intake and output -Purewick in place -Daily weights -Renally dose meds, avoid nephrotoxins -Replace Phosphate Endo: Hyperglycemia, s/p hypoglycemia -Hypoglycemia protocol -Avoid hypoglycemia -SSI every 6 hours -Lantus, titrate as needed ID: Septic shock, Lactic acidosis (improving) -Blood cultures x2 no growth to date -Patient has leukocytosis, hypotension -s/p IV meropenem -Monitor WBC and fever curve -ID consulted, appreciated recommendation -COVID PCR (-) Heme: Thrombocytopenia, Elevated INR -Trend CBC -Transfuse for hemoglobin less than 7 -SCD to bilateral lower extremities while in bed -Lovenox subcu -Monitor platelets Started Lovenox 1 mg/kg bid until pulm embolism ruled out. If negative for PE, please dc Lovenox 1mg/kg Oncology: h/o pancreatic head cancer -F/U with outpatient oncologist -Currently on radiation -Not a surgical candidate per GI -Right chest post not accessed History Interval history: Remains bipap dependent. Patient is interested in comfort measures. Extensive discussion on code status as well. She would like to remain full code. Hospitalist Physical - Physical exam Narrative exam: - Physical exam Narrative exam: General appearance: Present: no acute distress, obese, On BIPAP - EENT Eyes: Present: PERRL, EOM intact ENT: hearing intact, clear oral mucosa, dentition normal - Neck Neck: Present: normal ROM - Respiratory Respiratory effort: normal Respiratory: bilateral: diminished - Cardiovascular Rhythm: regular Heart Sounds: Present: S1 & S2. Absent: systolic murmur, diastolic murmur - Extremities Extremities: no ischemia, pulses intact, pulses symmetrical, No edema, normal temperature, normal color Peripheral Pulses: within normal limits - Abdominal General gastrointestinal: soft, non-tender, non-distended, normal bowel sounds - Integumentary Integumentary: Present: warm, dry - Psychiatric Psychiatric: appropriate mood/affect, cooperative - Neurologic Neurologic: CNII-XII intact, moves all extremities - Constitutional Vitals: Temp Pulse Resp BP Pulse Ox 97.9 F 102 H 21 103/68 92 05/27/21 03:46 05/27/21 09:00 05/27/21 09:00 05/27/21 09:00 05/27/21 09:00 General appearance: Present: no acute distress, obese Results - Labs CBC & Chem 7: 05/25/21 04:25 05/25/21 04:25 Labs: Laboratory Last Values WBC 11.7 K/mm3 (4.5-11.0) H 05/25/21 04:25 RBC 3.28 M/mm3 (3.65-5.03) L 05/25/21 04:25 Hgb 10.3 gm/dl (10.1-14.3) 05/25/21 04:25 Hct 31.6 % (30.3-42.9) 05/25/21 04:25 MCV 96 fl (79-97) 05/25/21 04:25 MCH 32 pg (28-32) 05/25/21 04:25 MCHC 33 % (30-34) 05/25/21 04:25 RDW 19.9 % (13.2-15.2) H 05/25/21 04:25 Plt Count 142 K/mm3 (140-440) 05/25/21 04:25 Lymph % (Auto) 7.4 % (13.4-35.0) L 05/15/21 04:45 Tift % (Auto) 6.7 % (0.0-7.3) 05/15/21 04:45 Eos % (Auto) 4.0 % (0.0-4.3) 05/15/21 04:45 Baso % (Auto) 0.7 % (0.0-1.8) 05/15/21 04:45 Lymph # (Auto) 0.6 K/mm3 (1.2-5.4) L 05/15/21 04:45 Tift # (Auto) 0.6 K/mm3 (0.0-0.8) 05/15/21 04:45 Eos # (Auto) 0.3 K/mm3 (0.0-0.4) 05/15/21 04:45 Baso # (Auto) 0.1 K/mm3 (0.0-0.1) 05/15/21 04:45 Add Manual Diff Complete 05/12/21 04:08 Total Counted 200 05/12/21 04:08 Seg Neutrophils % 81.2 % (40.0-70.0) H 05/15/21 04:45 Seg Neuts % (Manual) 85.5 % (40.0-70.0) H 05/12/21 04:08 Band Neutrophils % 8.5 % 05/12/21 04:08 Lymphocytes % (Manual) 2.0 % (13.4-35.0) L 05/12/21 04:08 Monocytes % (Manual) 3.0 % (0.0-7.3) 05/12/21 04:08 Eosinophils % (Manual) 1.0 % (0.0-4.3) 05/12/21 04:08 Nucleated RBC % Not Reportable 05/12/21 04:08 Seg Neutrophils # 6.7 K/mm3 (1.8-7.7) 05/15/21 04:45 Seg Neutrophils # Man 19.5 K/mm3 (1.8-7.7) H 05/12/21 04:08 Band Neutrophils # 1.9 K/mm3 05/12/21 04:08 Lymphocytes # (Manual) 0.5 K/mm3 (1.2-5.4) L 05/12/21 04:08 Abs React Lymphs (Man) 0.0 K/mm3 05/12/21 04:08 Monocytes # (Manual) 0.7 K/mm3 (0.0-0.8) 05/12/21 04:08 Eosinophils # (Manual) 0.2 K/mm3 (0.0-0.4) 05/12/21 04:08 Basophils # (Manual) 0.0 K/mm3 (0.0-0.1) 05/12/21 04:08 Metamyelocytes # 0.0 K/mm3 05/12/21 04:08 Myelocytes # 0.0 K/mm3 05/12/21 04:08 Promyelocytes # 0.0 K/mm3 05/12/21 04:08 Blast Cells # 0.0 K/mm3 05/12/21 04:08 WBC Morphology Not Reportable 05/12/21 04:08 Hypersegmented Neuts Not Reportable 05/12/21 04:08 Hyposegmented Neuts Not Reportable 05/12/21 04:08 Hypogranular Neuts Not Reportable 05/12/21 04:08 Smudge Cells Not Reportable 05/12/21 04:08 Toxic Granulation Not Reportable 05/12/21 04:08 Toxic Vacuolation Not Reportable 05/12/21 04:08 Dohle Bodies Not Reportable 05/12/21 04:08 Pelger-Huet Anomaly Not Reportable 05/12/21 04:08 Elizabeth Rods Not Reportable 05/12/21 04:08 Platelet Estimate Consistent w auto 05/12/21 04:08 Clumped Platelets Not Reportable 05/12/21 04:08 Plt Clumps, EDTA Not Reportable 05/12/21 04:08 Large Platelets Not Reportable 05/12/21 04:08 Giant Platelets Not Reportable 05/12/21 04:08 Platelet Satelliting Not Reportable 05/12/21 04:08 Plt Morphology Comment Not Reportable 05/12/21 04:08 RBC Morphology Not Reportable 05/12/21 04:08 Dimorphic RBCs Not Reportable 05/12/21 04:08 Polychromasia Not Reportable 05/12/21 04:08 Hypochromasia Not Reportable 05/12/21 04:08 Poikilocytosis Not Reportable 05/12/21 04:08 Anisocytosis 1+ 05/12/21 04:08 Microcytosis Not Reportable 05/12/21 04:08 Macrocytosis Not Reportable 05/12/21 04:08 Spherocytes Not Reportable 05/12/21 04:08 Pappenheimer Bodies Not Reportable 05/12/21 04:08 Sickle Cells Not Reportable 05/12/21 04:08 Target Cells Not Reportable 05/12/21 04:08 Tear Drop Cells Not Reportable 05/12/21 04:08 Ovalocytes Not Reportable 05/12/21 04:08 Helmet Cells Not Reportable 05/12/21 04:08 [place] Bodies Not Reportable 05/12/21 04:08 [place] Rings Not Reportable 05/12/21 04:08 Marcin Cells Not Reportable 05/12/21 04:08 Bite Cells Not Reportable 05/12/21 04:08 Crenated Cell Not Reportable 05/12/21 04:08 Elliptocytes Not Reportable 05/12/21 04:08 Acanthocytes (Spur) Not Reportable 05/12/21 04:08 Rouleaux Not Reportable 05/12/21 04:08 Hemoglobin C Crystals Not Reportable 05/12/21 04:08 Schistocytes Not Reportable 05/12/21 04:08 Malaria parasites Not Reportable 05/12/21 04:08 Tahir Bodies Not Reportable 05/12/21 04:08 Hem Pathologist Commnt No 05/12/21 04:08 PT 16.9 Sec. (12.2-14.9) H 05/23/21 10:15 INR 1.24 (0.87-1.13) H 05/23/21 10:15 ABG pH 7.482 pH Units (7.350-7.450) H 05/19/21 14:14 ABG pCO2 42.9 mm Hg 05/19/21 14:14 ABG pO2 111.7 mm Hg (80.0-90.0) H 05/19/21 14:14 ABG HCO3 31.4 mmol/L (20.0-26.0) H 05/19/21 14:14 ABG O2 Saturation 98.2 % (95.0-99.0) 05/19/21 14:14 ABG O2 Content 15.2 (0.0-44) 05/19/21 14:14 ABG Base Excess 7.2 mmol/L (-2.0-3.0) H 05/19/21 14:14 ABG Hemoglobin 11.1 gm/dl (12.0-16.0) L 05/19/21 14:14 ABG Carboxyhemoglobin 1.1 % (0.0-5.0) 05/19/21 14:14 ABG Methemoglobin 0.6 % (0.0-1.5) 05/19/21 14:14 Oxyhemoglobin 96.4 % (95.0-99.0) 05/19/21 14:14 FiO2 100 % 05/19/21 14:14 Sodium 135 mmol/L (137-145) L 05/25/21 04:25 Potassium 3.4 mmol/L (3.6-5.0) L 05/25/21 04:25 Chloride 100.3 mmol/L (98-107) 05/25/21 04:25 Carbon Dioxide 25 mmol/L (22-30) 05/25/21 04:25 Anion Gap 13 mmol/L 05/25/21 04:25 BUN 15 mg/dL (7-17) 05/25/21 04:25 Creatinine 0.2 mg/dL (0.6-1.2) L 05/25/21 04:25 Estimated GFR > 60 ml/min 05/25/21 04:25 BUN/Creatinine Ratio 75 % 05/25/21 04:25 Glucose 105 mg/dL (65-100) H 05/25/21 04:25 POC Glucose 144 mg/dL (70-105) H 05/27/21 05:40 Hemoglobin A1c 5.2 % (4-6) 05/12/21 04:08 Lactic Acid 3.30 mmol/L (0.7-2.0) H* 05/12/21 Unknown Calcium 7.6 mg/dL (8.4-10.2) L 05/25/21 04:25 Phosphorus 2.60 mg/dL (2.5-4.5) 05/24/21 04:16 Magnesium 2.00 mg/dL (1.7-2.3) 05/24/21 04:16 Total Bilirubin 2.30 mg/dL (0.1-1.2) H 05/23/21 10:15 Direct Bilirubin 1.6 mg/dL (0-0.2) H 05/23/21 10:15 Indirect Bilirubin 0.7 mg/dL 05/23/21 10:15 AST 161 units/L (5-40) H 05/23/21 10:15 ALT 396 units/L (7-56) H 05/23/21 10:15 Alkaline Phosphatase 186 units/L (35-129) H 05/23/21 10:15 Total Protein 4.7 g/dL (6.3-8.2) L 05/23/21 10:15 Albumin 2.0 g/dL (3.9-5) L 05/23/21 10:15 Albumin/Globulin Ratio 0.7 % 05/23/21 10:15 Triglycerides 90 mg/dL (2-149) 05/23/21 10:15 Lipase 3 units/L (13-60) L 05/11/21 05:43 Urine Color [place] (Yellow) 05/11/21 11:18 Urine Turbidity Clear (Clear) 05/11/21 11:18 Urine pH 6.0 (5.0-7.0) 05/11/21 11:18 Ur Specific [place] 1.035 (1.003-1.030) H 05/11/21 11:18 Urine Protein 100 mg/dl mg/dL (Negative) 05/11/21 11:18 Urine Glucose (UA) Neg mg/dL (Negative) 05/11/21 11:18 Urine Ketones Neg mg/dL (Negative) 05/11/21 11:18 Urine Blood Neg (Negative) 05/11/21 11:18 Urine Nitrite Neg (Negative) 05/11/21 11:18 Urine Bilirubin Neg (Negative) 05/11/21 11:18 Urine Urobilinogen < 2.0 mg/dL (<2.0) 05/11/21 11:18 Ur Leukocyte Esterase Neg (Negative) 05/11/21 11:18 Urine WBC (Auto) 2.0 /HPF (0.0-6.0) 05/11/21 11:18 Urine RBC (Auto) 1.0 /HPF (0.0-6.0) 05/11/21 11:18 Urine Mucus Few /HPF 05/11/21 11:18 Vancomycin Trough 25.3 ug/mL (5.0-20.0) H 05/14/21 15:20 Coronavirus (PCR) Negative (Negative) 05/12/21 10:16 Hepatitis A IgM Ab Non-reactive (NonReactive) 05/12/21 12:30 Hep Bs Antigen Nonreactive (Negative) 05/12/21 12:30 Hep B Core IgM Ab Non-reactive (NonReactive) 05/12/21 12:30 Hepatitis C Antibody Non-reactive (NonReactive) 05/12/21 12:30 Rivas/IV: Voiding Method Indwelling Catheter Active Medications - Current Medications Current Medications: Generic Name Dose Route Start Last Admin Trade Name Freq PRN Reason Stop Dose Admin Acetaminophen 650 mg 05/11/21 21:40 05/14/21 20:06 Acetaminophen 325 Mg Tab PO 650 mg Q4H PRN Administration Pain MILD(1-3)/Fever >100.5/WOODS Lipase/Protease/Amylase 1 each 05/22/21 16:30 Lipase 10,500/Protease 25,000/Amylase 43,750 (Units) Dr Baker FEEDTUBE PRN PRN For Clogged Feeding Tube Arformoterol Tartrate 15 mcg 05/12/21 08:00 05/26/21 21:03 Arformoterol 15 Mcg/2 Ml Nebu IH Not Given Q12HRT ABRAHAN Benzonatate 100 mg 05/12/21 15:53 05/23/21 22:02 Benzonatate 100 Mg Cap PO 100 mg Q8HR PRN Administration Cough Budesonide 0.5 mg 05/12/21 08:00 05/26/21 21:03 Budesonide 0.5 Mg/2 Ml Nebu IH Not Given Q12HRT ABRAHAN Dexamethasone 6 mg 05/16/21 13:00 05/27/21 10:23 Dexamethasone 4 Mg/Ml Vial IV 6 mg Q24HR ABRAHAN Administration Dextrose 50 ml 05/12/21 11:57 05/16/21 08:30 Dextrose 50% In Water (25gm) 50 Ml Syringe IV 20 ml Q30MIN PRN Administration Hypoglycemia Protocol Dicyclomine HCl 10 mg 05/23/21 14:00 05/26/21 21:02 Dicyclomine 10 Mg Cap PO 10 mg QID ABRAHAN Administration Enoxaparin Sodium 80 mg 05/25/21 12:00 05/27/21 10:23 Enoxaparin 80 Mg/0.8 Ml Inj SUB-Q 80 mg Q12HR ABRAHAN Administration Protocol Furosemide 20 mg 05/24/21 14:00 05/27/21 10:24 Furosemide 20 Mg/2 Ml Inj IV 05/27/21 13:59 20 mg QDAY ABRAHAN Administration Haloperidol Lactate 5 mg 05/19/21 15:00 05/27/21 08:18 Haloperidol Lactate 5 Mg/1 Ml Inj IV 5 mg Q8H PRN Administration Agitation Hydromorphone HCl 0.5 mg 05/26/21 14:58 05/27/21 09:15 Hydromorphone 1 Mg/1 Ml Inj IV 0.5 mg Q3H PRN Administration Pain , Severe (7-10) Insulin Glargine 20 units 05/22/21 22:00 05/26/21 21:02 Insulin Glargine 100 Units/Ml SUB-Q 20 units QHS ABRAHAN Administration Insulin Human Lispro 0 unit 05/17/21 12:00 05/27/21 05:49 Insulin Lispro 100 Unit/Ml SUB-Q Not Given Q6HR [facility] Protocol Metoclopramide HCl 10 mg 05/11/21 21:40 Metoclopramide 10 Mg/2 Ml Inj IV Q6H PRN Nausea And Vomiting Morphine Sulfate 2 mg 05/11/21 21:40 05/26/21 09:42 Morphine 2 Mg/1 Ml Inj IV 2 mg Q4H PRN Administration Pain, Moderate (4-6) Ondansetron HCl 4 mg 05/11/21 21:40 05/15/21 09:57 Ondansetron 4 Mg/2 Ml Inj IV 4 mg Q8H PRN Administration Nausea And Vomiting Pantoprazole Sodium 40 mg 05/15/21 10:00 05/27/21 10:24 Pantoprazole 40 Mg Inj IV 40 mg QDAY ABRAHAN Administration Simple Syrup 15 ml 05/22/21 16:30 Simple Syrup 15 Ml FEEDTUBE PRN PRN Hypoglycemia Simple Syrup 30 ml 05/22/21 16:30 Simple Syrup 15 Ml FEEDTUBE PRN PRN Hypoglycemia Sodium Bicarbonate 325 mg 05/22/21 16:30 Sodium Bicarbonate 325 Mg Tab FEEDTUBE PRN PRN For Clogged Feeding Tube Sodium Chloride 10 ml 05/11/21 22:00 05/27/21 10:24 Sodium Chloride 0.9% 10 Ml Flush Syringe IV 10 ml BID ABRAHAN Administration Sodium Chloride 10 ml 05/11/21 21:40 05/23/21 21:00 Sodium Chloride 0.9% 10 Ml Flush Syringe IV 10 ml PRN PRN Administration LINE FLUSH Nutrition/Malnutrition Assess - Dietary Evaluation Nutrition/Malnutrition Findings: Nutrition Notes Start: 05/13/21 09:47 Freq: Status: Active Protocol: Document 05/25/21 18:31 ZENY (Rec: 05/25/21 18:41 [email or web address] [id number]) Nutrition Notes Initial or Follow up Brief Note Current Diet TF-Vital AF 1.2 Po @ 42 ml/hr (since D 05/24). Height 5 ft 2 in Weight 77.2 kg [place] Body Weight (kg) 50.00 BMI 31.1 Weight change and time frame 1.2 Kg body weight loss in 2 days reported. Subjective/Other Information RD consult for routine F/U on TF tolerance. TF continues as prescribed after 24 hrs without adverse reactions reported. TF will continue as is. Percent of energy/protein needs met: Prescribed Vital AF 1.2 Po @ 42 ml/hr provides for energy/ protein needs (1,220 Kcal/76 g ) during LOS, 76% Kcal; 76% AA . #1 Nutrition Diagnosis Altered GI function Comments: TPN discontinued, TF well tolerated. Diagnosis Progress(for reassessment Improved documentation) Nutrition Intervention Nutrition Support: Continue Vital AF 1.2 Po @ 42 ml/hr. Flush 130 ml Q 4 hr. % RDI: 76% Kcal; 76% AA. Goal #1 Provide at least 75% of energy /protein needs through Enteral Nutrition during LOS. Follow-Up By: 05/28/21 Additional Comments Continue monitoring TF tolerance.
--- NOTE | 2021-05-27 20:38 | Progress Note ---
Assessment and Plan 51-year-old female with history of COPD, Hypertension and pancreatic cancer comes in for right upper quadrant pain since 2 AM. Pain is about 10 on a scale of 1-10. Also associated with nausea and vomiting. Patient is on radiation therapy for pancreatic cancer. Patient also has a history of pulmonary fibrosis and is on 2 L nasal cannula oxygen. Vomited about 3-4 times. No fever or chills. No aggravating or relieving factors. No exposure to coronavirus. Patient has history of smoking. Not smoking. Denies alcohol or drug abuse. Patient is awake.. Not responding to verbal stimuli. Patient is on BIPAP 15/10, rate 10, FIO2 85%. O2 saturation 95% . Mild increase in work of breathing. Patient afebrile. Has mild leukocytosis. Blood pressure 114/73, pulse 88, respirations 27. Chest xray done 05/13/21 reported No acute change since 03/19/2019. Interstitial lung disease or early pulmonary fibrosis is suspected and unchanged. Patient has angio CT of chest done on 05/11/[address] evidence for pulmonary embolism. Bilateral interstitial opacity remains with overall mild worsening Mild fluid-filled esophagus. The stomach is also distended with fluid. Chest xray done 05/24/21 reported Feeding tube courses beneath the diaphragm with tip not visualized. Improving airspace disease. Patient is on Budesonide/Brovanna aerosol treatments, Decadron, S/C Lovenox in therapeutic dose, Protonix, I spent critical care time of 35 minutes, obtaining history, review the chart, Examine the patient, review labs and chest xray, Ct scan of chest, talking to the nursing staff and work up plan of treatment. - Patient Problems (1) Hypotension Current Visit: Yes Status: Acute Plan to address problem: Patients blood pressure improved. Patient is off Norepinephrine and vasopressin. (2) Sepsis Current Visit: Yes Status: Acute Plan to address problem: Patient was on cefepime and vancomycin. (3) Pancreatic cancer Current Visit: Yes Status: Chronic Qualifiers: Pancreatic malignancy location: body of pancreas Qualified Code(s): C25.1 - Malignant neoplasm of body of pancreas Plan to address problem: Management as per primary care and oncology. (4) Asthma exacerbation Current Visit: No Status: Acute Plan to address problem: Patient is on Brovanna/Budesonide aerosol treatments. Patient is on Decadron. S/C Lovenox Protonix. (5) Bilateral pneumonia Current Visit: No Status: Acute Plan to address problem: Patient was on Cefepime and vancomycin. (6) Interstitial lung disease Current Visit: No Status: Acute Plan to address problem: Recommend TED, rheumatoid factor, CANCA, BRIGHT levels. PFTs as out patient. (7) HTN (hypertension) Current Visit: No Status: Chronic Qualifiers: Hypertension type: essential hypertension Plan to address problem: Management as per primary care. Subjective Date of service: 05/27/21 Principal diagnosis: Septic shock; Pulm fibrosis; Hypoxemic resp failure; COVID- 19 infxn Interval history: 51-year-old female with history of COPD, Hypertension and pancreatic cancer comes in for right upper quadrant pain since 2 AM. Pain is about 10 on a scale of 1-10. Also associated with nausea and vomiting. Patient is on radiation therapy for pancreatic cancer. Patient also has a history of pulmonary fibrosis and is on 2 L nasal cannula oxygen. Vomited about 3-4 times. No fever or chills. No aggravating or relieving factors. No exposure to coronavirus. Patient has history of smoking. Not smoking. Denies alcohol or drug abuse. Patient is awake.. Not responding to verbal stimuli. Patient is on BIPAP 15/10, rate 10, FIO2 85%. O2 saturation 95% . Mild increase in work of breathing. Patient afebrile. Has mild leukocytosis. Blood pressure 114/73, pulse 88, respirations 27. Chest xray done 05/13/21 reported No acute change since 03/19/2019. Interstitial lung disease or early pulmonary fibrosis is suspected and unchanged. Patient has angio CT of chest done on 05/11/[address] evidence for pulmonary embolism. Bilateral interstitial opacity remains with overall mild worsening Mild fluid-filled esophagus. The stomach is also distended with fluid. Chest xray done 05/24/21 reported Feeding tube courses beneath the diaphragm with tip not visualized. Improving airspace disease. Patient is on Budesonide/Brovanna aerosol treatments, Decadron, S/C Lovenox in therapeutic dose, Protonix, Objective Vital Signs - 12hr 05/27/21 05/27/21 05/27/21 09:00 09:31 10:00 Temperature Pulse Rate 102 H 134 H 98 H Pulse Rate [ Bilateral Throughout] Pulse Rate [ From Monitor] Respiratory 21 35 H 19 Rate Respiratory Rate [Bilateral Throughout] Blood Pressure 103/68 103/68 111/62 O2 Sat by Pulse 92 84 94 Oximetry 05/27/21 05/27/21 05/27/21 10:31 10:35 11:00 Temperature Pulse Rate 108 H 106 H 112 H Pulse Rate [ Bilateral Throughout] Pulse Rate [ From Monitor] Respiratory 22 20 24 Rate Respiratory Rate [Bilateral Throughout] Blood Pressure 111/62 98/58 124/74 O2 Sat by Pulse 89 93 88 Oximetry 05/27/21 05/27/21 05/27/21 11:31 11:40 12:00 Temperature 97.5 F L Pulse Rate 112 H 91 H Pulse Rate [ 114 H Bilateral Throughout] Pulse Rate [ 91 H From Monitor] Respiratory 24 21 Rate Respiratory 32 H Rate [Bilateral Throughout] Blood Pressure 124/74 98/58 O2 Sat by Pulse 91 94 Oximetry 05/27/21 05/27/21 05/27/21 12:31 13:00 13:31 Temperature Pulse Rate 122 H 119 H 110 H Pulse Rate [ Bilateral Throughout] Pulse Rate [ From Monitor] Respiratory 31 H 32 H 35 H Rate Respiratory Rate [Bilateral Throughout] Blood Pressure 98/58 126/87 126/87 O2 Sat by Pulse 93 85 96 Oximetry 05/27/21 05/27/21 05/27/21 14:00 14:31 15:00 Temperature Pulse Rate 109 H 104 H 97 H Pulse Rate [ Bilateral Throughout] Pulse Rate [ From Monitor] Respiratory 24 17 18 Rate Respiratory Rate [Bilateral Throughout] Blood Pressure 130/75 130/75 106/73 O2 Sat by Pulse 92 93 91 Oximetry 05/27/21 05/27/21 05/27/21 15:31 16:00 16:31 Temperature 97.5 F L Pulse Rate 99 H 98 H 85 Pulse Rate [ Bilateral Throughout] Pulse Rate [ 96 H From Monitor] Respiratory 21 22 21 Rate Respiratory Rate [Bilateral Throughout] Blood Pressure 106/73 109/80 109/80 O2 Sat by Pulse 92 94 91 Oximetry 05/27/21 05/27/21 05/27/21 16:50 17:00 17:31 Temperature Pulse Rate 87 99 H 118 H Pulse Rate [ Bilateral Throughout] Pulse Rate [ From Monitor] Respiratory 20 21 35 H Rate Respiratory Rate [Bilateral Throughout] Blood Pressure 119/66 108/69 108/69 O2 Sat by Pulse 97 92 92 Oximetry 05/27/21 05/27/21 05/27/21 18:00 18:31 19:00 Temperature Pulse Rate 108 H 88 87 Pulse Rate [ Bilateral Throughout] Pulse Rate [ From Monitor] Respiratory 27 H 20 20 Rate Respiratory Rate [Bilateral Throughout] Blood Pressure 118/57 118/57 119/66 O2 Sat by Pulse 92 97 97 Oximetry Constitutional: alert, appears uncomfortable, other (mildly increased respiratory effort at rest ) Eyes: non-icteric ENT: oropharynx moist Neck: supple, no lymphadenopathy, no JVD Effort: mildly labored Ascultation: Bilateral: diminished breath sounds, rales (posterior bases) Percussion: Bilateral: not dull Cardiovascular: regular rate and rhythm, other (S1,S2) Gastrointestinal: normoactive bowel sounds, hypoactive bowel sounds, soft, non- distended (protuberant) Integumentary: normal Extremities: no cyanosis, no edema, pulses normal, other (right femoral CVL) Neurologic: normal mental status, non-focal exam, pupils equal and round, other (somnolent) Psychiatric: mood appropriate, affect normal, other (somnolenet) CBC and BMP: 05/25/21 04:25 05/25/21 04:25 ABG, PT/INR, D-dimer: ABG ABG pH 7.482 pH Units (7.350-7.450) H 05/19/21 14:14 ABG pCO2 42.9 mm Hg 05/19/21 14:14 ABG pO2 111.7 mm Hg (80.0-90.0) H 05/19/21 14:14 ABG O2 Saturation 98.2 % (95.0-99.0) 05/19/21 14:14 PT/INR, D-dimer PT 16.9 Sec. (12.2-14.9) H 05/23/21 10:15 INR 1.24 (0.87-1.13) H 05/23/21 10:15 Abnormal lab findings: Abnormal Labs 05/11/21 05/11/21 05/11/21 05:43 05:43 05:43 WBC RBC Hgb MCV 98 H RDW 17.7 H Plt Count Lymph % (Auto) 10.8 L Lymph # (Auto) 0.6 L Seg Neutrophils % 84.1 H Seg Neuts % (Manual) Lymphocytes % (Manual) Seg Neutrophils # Man Lymphocytes # (Manual) PT 16.0 H INR 1.16 H ABG pH ABG pO2 ABG HCO3 ABG Base Excess ABG Hemoglobin Oxyhemoglobin Sodium Potassium Chloride Carbon Dioxide 21 L BUN 4 L Creatinine 0.4 L Glucose POC Glucose Lactic Acid Calcium 8.3 L Phosphorus Magnesium Total Bilirubin 2.10 H Direct Bilirubin 1.4 H AST 335 H ALT 57 H Alkaline Phosphatase 339 H Total Protein Albumin 2.4 L Lipase 3 L Ur Specific [place] Vancomycin Trough 05/11/21 05/11/21 05/12/21 11:18 12:28 04:08 WBC RBC Hgb MCV RDW Plt Count Lymph % (Auto) Lymph # (Auto) Seg Neutrophils % Seg Neuts % (Manual) Lymphocytes % (Manual) Seg Neutrophils # Man Lymphocytes # (Manual) PT INR ABG pH ABG pO2 ABG HCO3 ABG Base Excess ABG Hemoglobin Oxyhemoglobin Sodium Potassium Chloride Carbon Dioxide BUN Creatinine Glucose POC Glucose Lactic Acid 4.20 H* 4.50 H* Calcium Phosphorus Magnesium Total Bilirubin Direct Bilirubin AST ALT Alkaline Phosphatase Total Protein Albumin Lipase Ur Specific [place] 1.035 H Vancomycin Trough 05/12/21 05/12/21 05/12/21 04:08 04:08 09:47 WBC 22.8 H RBC 3.39 L Hgb MCV 98 H RDW 17.7 H Plt Count Lymph % (Auto) Lymph # (Auto) Seg Neutrophils % Seg Neuts % (Manual) 85.5 H Lymphocytes % (Manual) 2.0 L Seg Neutrophils # Man 19.5 H Lymphocytes # (Manual) 0.5 L PT INR ABG pH ABG pO2 ABG HCO3 ABG Base Excess ABG Hemoglobin Oxyhemoglobin Sodium Potassium 3.3 L Chloride 108.9 H Carbon Dioxide 17 L BUN 4 L Creatinine 0.5 L Glucose 106 H POC Glucose Lactic Acid 2.60 H* Calcium 6.4 L D Phosphorus Magnesium Total Bilirubin 2.10 H Direct Bilirubin AST 156 H ALT 61 H Alkaline Phosphatase 317 H Total Protein 5.4 L D Albumin 1.8 L Lipase Ur Specific [place] Vancomycin Trough 05/12/21 05/12/21 05/12/21 11:47 12:30 12:36 WBC RBC Hgb MCV RDW Plt Count Lymph % (Auto) Lymph # (Auto) Seg Neutrophils % Seg Neuts % (Manual) Lymphocytes % (Manual) Seg Neutrophils # Man Lymphocytes # (Manual) PT INR ABG pH ABG pO2 ABG HCO3 ABG Base Excess ABG Hemoglobin Oxyhemoglobin Sodium Potassium Chloride Carbon Dioxide BUN Creatinine Glucose POC Glucose 59 L 120 H Lactic Acid 2.50 H* Calcium Phosphorus Magnesium Total Bilirubin Direct Bilirubin AST ALT Alkaline Phosphatase Total Protein Albumin Lipase Ur Specific [place] Vancomycin Trough 05/12/21 05/12/21 05/13/21 23:45 Unknown 04:00 WBC 19.8 H RBC 3.52 L Hgb MCV 98 H RDW 18.5 H Plt Count Lymph % (Auto) Lymph # (Auto) Seg Neutrophils % Seg Neuts % (Manual) Lymphocytes % (Manual) Seg Neutrophils # Man Lymphocytes # (Manual) PT INR ABG pH ABG pO2 ABG HCO3 ABG Base Excess ABG Hemoglobin Oxyhemoglobin Sodium Potassium Chloride Carbon Dioxide BUN Creatinine Glucose POC Glucose 119 H Lactic Acid 3.30 H* Calcium Phosphorus Magnesium Total Bilirubin Direct Bilirubin AST ALT Alkaline Phosphatase Total Protein Albumin Lipase Ur Specific [place] Vancomycin Trough 05/13/21 05/13/21 05/13/21 04:00 05:42 12:19 WBC RBC Hgb MCV RDW Plt Count Lymph % (Auto) Lymph # (Auto) Seg Neutrophils % Seg Neuts % (Manual) Lymphocytes % (Manual) Seg Neutrophils # Man Lymphocytes # (Manual) PT INR ABG pH ABG pO2 ABG HCO3 ABG Base Excess ABG Hemoglobin Oxyhemoglobin Sodium Potassium 3.4 L Chloride 107.1 H Carbon Dioxide 19 L BUN 4 L Creatinine 0.4 L Glucose 157 H POC Glucose 143 H 110 H Lactic Acid Calcium 7.4 L D Phosphorus 1.60 L Magnesium 1.50 L Total Bilirubin 1.40 H Direct Bilirubin AST 95 H ALT Alkaline Phosphatase 328 H Total Protein 5.5 L Albumin 1.6 L Lipase Ur Specific [place] Vancomycin Trough 05/14/21 05/14/21 05/14/21 06:15 06:15 10:25 WBC 11.7 H RBC 3.41 L Hgb MCV 98 H RDW 18.6 H Plt Count Lymph % (Auto) Lymph # (Auto) Seg Neutrophils % Seg Neuts % (Manual) Lymphocytes % (Manual) Seg Neutrophils # Man Lymphocytes # (Manual) PT INR ABG pH ABG pO2 76.0 L ABG HCO3 27.2 H ABG Base Excess ABG Hemoglobin 11.5 L Oxyhemoglobin 94.4 L Sodium Potassium 3.2 L Chloride Carbon Dioxide BUN 6 L Creatinine 0.5 L Glucose 103 H POC Glucose Lactic Acid Calcium 7.3 L Phosphorus 1.70 L Magnesium Total Bilirubin Direct Bilirubin AST 66 H ALT Alkaline Phosphatase 295 H Total Protein 5.3 L Albumin 1.8 L Lipase Ur Specific [place] Vancomycin Trough 05/14/21 05/14/21 05/14/21 15:20 15:20 17:26 WBC RBC Hgb MCV RDW Plt Count Lymph % (Auto) Lymph # (Auto) Seg Neutrophils % Seg Neuts % (Manual) Lymphocytes % (Manual) Seg Neutrophils # Man Lymphocytes # (Manual) PT INR ABG pH ABG pO2 ABG HCO3 ABG Base Excess ABG Hemoglobin Oxyhemoglobin Sodium 146 H D Potassium Chloride 108.4 H Carbon Dioxide BUN 5 L Creatinine 0.5 L Glucose POC Glucose 63 L Lactic Acid Calcium 7.6 L Phosphorus Magnesium Total Bilirubin Direct Bilirubin AST ALT Alkaline Phosphatase Total Protein Albumin Lipase Ur Specific [place] Vancomycin Trough 25.3 H 05/14/21 05/15/21 05/15/21 21:27 00:03 00:29 WBC RBC Hgb MCV RDW Plt Count Lymph % (Auto) Lymph # (Auto) Seg Neutrophils % Seg Neuts % (Manual) Lymphocytes % (Manual) Seg Neutrophils # Man Lymphocytes # (Manual) PT INR ABG pH ABG pO2 ABG HCO3 ABG Base Excess ABG Hemoglobin Oxyhemoglobin Sodium Potassium Chloride Carbon Dioxide BUN Creatinine Glucose POC Glucose 52 L 54 L 129 H Lactic Acid Calcium Phosphorus Magnesium Total Bilirubin Direct Bilirubin AST ALT Alkaline Phosphatase Total Protein Albumin Lipase Ur Specific [place] Vancomycin Trough 05/15/21 05/15/21 05/15/21 04:45 04:45 11:58 WBC RBC 3.24 L Hgb MCV 98 H RDW 18.5 H Plt Count 122 L Lymph % (Auto) 7.4 L Lymph # (Auto) 0.6 L Seg Neutrophils % 81.2 H Seg Neuts % (Manual) Lymphocytes % (Manual) Seg Neutrophils # Man Lymphocytes # (Manual) PT INR ABG pH ABG pO2 ABG HCO3 ABG Base Excess ABG Hemoglobin Oxyhemoglobin Sodium 146 H Potassium 3.1 L Chloride 108.8 H Carbon Dioxide BUN 6 L Creatinine Glucose 121 H POC Glucose 68 L Lactic Acid Calcium 7.5 L Phosphorus 2.30 L D Magnesium Total Bilirubin 1.90 H Direct Bilirubin AST 55 H ALT Alkaline Phosphatase 231 H Total Protein 5.4 L Albumin 1.5 L Lipase Ur Specific [place] Vancomycin Trough 05/15/21 05/16/21 05/16/21 13:50 00:06 00:43 WBC RBC Hgb MCV RDW Plt Count Lymph % (Auto) Lymph # (Auto) Seg Neutrophils % Seg Neuts % (Manual) Lymphocytes % (Manual) Seg Neutrophils # Man Lymphocytes # (Manual) PT INR ABG pH ABG pO2 ABG HCO3 ABG Base Excess ABG Hemoglobin Oxyhemoglobin Sodium Potassium Chloride Carbon Dioxide BUN Creatinine Glucose POC Glucose 147 H 54 L 116 H Lactic Acid Calcium Phosphorus Magnesium Total Bilirubin Direct Bilirubin AST ALT Alkaline Phosphatase Total Protein Albumin Lipase Ur Specific [place] Vancomycin Trough 05/16/21 05/16/21 05/16/21 04:31 04:31 05:58 WBC RBC 3.12 L Hgb 9.8 L MCV 98 H RDW 18.2 H Plt Count 115 L Lymph % (Auto) Lymph # (Auto) Seg Neutrophils % Seg Neuts % (Manual) Lymphocytes % (Manual) Seg Neutrophils # Man Lymphocytes # (Manual) PT INR ABG pH ABG pO2 ABG HCO3 ABG Base Excess ABG Hemoglobin Oxyhemoglobin Sodium 146 H Potassium 3.2 L Chloride Carbon Dioxide BUN 5 L Creatinine 0.5 L Glucose POC Glucose 61 L Lactic Acid Calcium 7.2 L Phosphorus 2.30 L Magnesium Total Bilirubin Direct Bilirubin AST ALT Alkaline Phosphatase Total Protein Albumin Lipase Ur Specific [place] Vancomycin Trough 05/16/21 05/16/21 05/17/21 08:11 23:42 04:15 WBC RBC Hgb MCV RDW Plt Count Lymph % (Auto) Lymph # (Auto) Seg Neutrophils % Seg Neuts % (Manual) Lymphocytes % (Manual) Seg Neutrophils # Man Lymphocytes # (Manual) PT INR ABG pH ABG pO2 ABG HCO3 ABG Base Excess ABG Hemoglobin Oxyhemoglobin Sodium Potassium Chloride Carbon Dioxide BUN Creatinine Glucose POC Glucose 58 L 200 H Lactic Acid Calcium Phosphorus Magnesium Total Bilirubin 1.70 H Direct Bilirubin 1.5 H AST 43 H ALT Alkaline Phosphatase 196 H Total Protein 5.4 L Albumin 1.6 L Lipase Ur Specific [place] Vancomycin Trough 05/17/21 05/17/21 05/17/21 04:15 04:15 05:07 WBC RBC 3.26 L Hgb MCV 98 H RDW 18.9 H Plt Count 114 L Lymph % (Auto) Lymph # (Auto) Seg Neutrophils % Seg Neuts % (Manual) Lymphocytes % (Manual) Seg Neutrophils # Man Lymphocytes # (Manual) PT INR ABG pH ABG pO2 ABG HCO3 ABG Base Excess ABG Hemoglobin Oxyhemoglobin Sodium Potassium Chloride Carbon Dioxide 35 H BUN 5 L Creatinine Glucose 274 H POC Glucose 249 H Lactic Acid Calcium 7.7 L Phosphorus 1.50 L D Magnesium Total Bilirubin Direct Bilirubin AST ALT Alkaline Phosphatase Total Protein Albumin Lipase Ur Specific [place] Vancomycin Trough 05/17/21 05/17/21 05/17/21 11:56 16:29 23:37 WBC RBC Hgb MCV RDW Plt Count Lymph % (Auto) Lymph # (Auto) Seg Neutrophils % Seg Neuts % (Manual) Lymphocytes % (Manual) Seg Neutrophils # Man Lymphocytes # (Manual) PT INR ABG pH ABG pO2 ABG HCO3 ABG Base Excess ABG Hemoglobin Oxyhemoglobin Sodium Potassium Chloride Carbon Dioxide BUN Creatinine Glucose POC Glucose 176 H 219 H 150 H Lactic Acid Calcium Phosphorus Magnesium Total Bilirubin Direct Bilirubin AST ALT Alkaline Phosphatase Total Protein Albumin Lipase Ur Specific [place] Vancomycin Trough 05/18/21 05/18/21 05/18/21 04:00 05:22 09:00 WBC RBC 3.34 L Hgb MCV RDW 18.8 H Plt Count Lymph % (Auto) Lymph # (Auto) Seg Neutrophils % Seg Neuts % (Manual) Lymphocytes % (Manual) Seg Neutrophils # Man Lymphocytes # (Manual) PT INR ABG pH ABG pO2 ABG HCO3 ABG Base Excess ABG Hemoglobin Oxyhemoglobin Sodium Potassium 5.4 H D Chloride 97.5 L Carbon Dioxide 33 H BUN Creatinine 0.4 L Glucose 461 H POC Glucose 181 H Lactic Acid Calcium 7.2 L Phosphorus 5.00 H D Magnesium Total Bilirubin Direct Bilirubin AST ALT Alkaline Phosphatase Total Protein Albumin Lipase Ur Specific [place] Vancomycin Trough 05/18/21 05/18/21 05/18/21 11:16 12:50 16:29 WBC RBC Hgb MCV RDW Plt Count Lymph % (Auto) Lymph # (Auto) Seg Neutrophils % Seg Neuts % (Manual) Lymphocytes % (Manual) Seg Neutrophils # Man Lymphocytes # (Manual) PT INR ABG pH ABG pO2 ABG HCO3 ABG Base Excess ABG Hemoglobin Oxyhemoglobin Sodium Potassium 3.4 L D Chloride Carbon Dioxide 36 H BUN 19 H Creatinine 0.4 L Glucose 231 H POC Glucose 168 H 196 H Lactic Acid Calcium 7.5 L Phosphorus 1.80 L D Magnesium Total Bilirubin Direct Bilirubin AST ALT Alkaline Phosphatase Total Protein Albumin Lipase Ur Specific [place] Vancomycin Trough 05/19/21 05/19/21 05/19/21 00:05 04:08 05:07 WBC RBC Hgb MCV RDW Plt Count Lymph % (Auto) Lymph # (Auto) Seg Neutrophils % Seg Neuts % (Manual) Lymphocytes % (Manual) Seg Neutrophils # Man Lymphocytes # (Manual) PT INR ABG pH ABG pO2 ABG HCO3 ABG Base Excess ABG Hemoglobin Oxyhemoglobin Sodium 146 H Potassium Chloride Carbon Dioxide 35 H BUN 25 H Creatinine 0.4 L Glucose 218 H POC Glucose 164 H 203 H Lactic Acid Calcium 7.2 L Phosphorus Magnesium Total Bilirubin Direct Bilirubin AST ALT Alkaline Phosphatase Total Protein Albumin Lipase Ur Specific [place] Vancomycin Trough 05/19/21 05/19/21 05/19/21 12:16 14:14 17:11 WBC RBC Hgb MCV RDW Plt Count Lymph % (Auto) Lymph # (Auto) Seg Neutrophils % Seg Neuts % (Manual) Lymphocytes % (Manual) Seg Neutrophils # Man Lymphocytes # (Manual) PT INR ABG pH 7.482 H ABG pO2 111.7 H ABG HCO3 31.4 H ABG Base Excess 7.2 H ABG Hemoglobin 11.1 L Oxyhemoglobin Sodium Potassium Chloride Carbon Dioxide BUN Creatinine Glucose POC Glucose 206 H 194 H Lactic Acid Calcium Phosphorus Magnesium Total Bilirubin Direct Bilirubin AST ALT Alkaline Phosphatase Total Protein Albumin Lipase Ur Specific [place] Vancomycin Trough 05/20/21 05/20/21 05/20/21 00:01 04:30 06:09 WBC RBC Hgb MCV RDW Plt Count Lymph % (Auto) Lymph # (Auto) Seg Neutrophils % Seg Neuts % (Manual) Lymphocytes % (Manual) Seg Neutrophils # Man Lymphocytes # (Manual) PT INR ABG pH ABG pO2 ABG HCO3 ABG Base Excess ABG Hemoglobin Oxyhemoglobin Sodium Potassium 3.5 L Chloride Carbon Dioxide BUN 24 H Creatinine 0.3 L Glucose 254 H POC Glucose 209 H 210 H Lactic Acid Calcium 7.5 L Phosphorus 1.90 L D Magnesium Total Bilirubin 1.60 H Direct Bilirubin AST 201 H ALT 170 H Alkaline Phosphatase 169 H Total Protein 5.3 L Albumin 1.9 L Lipase Ur Specific [place] Vancomycin Trough 05/20/21 05/20/21 05/20/21 11:41 16:47 22:21 WBC RBC Hgb MCV RDW Plt Count Lymph % (Auto) Lymph # (Auto) Seg Neutrophils % Seg Neuts % (Manual) Lymphocytes % (Manual) Seg Neutrophils # Man Lymphocytes # (Manual) PT INR ABG pH ABG pO2 ABG HCO3 ABG Base Excess ABG Hemoglobin Oxyhemoglobin Sodium Potassium Chloride Carbon Dioxide BUN Creatinine Glucose POC Glucose 158 H 232 H 211 H Lactic Acid Calcium Phosphorus Magnesium Total Bilirubin Direct Bilirubin AST ALT Alkaline Phosphatase Total Protein Albumin Lipase Ur Specific [place] Vancomycin Trough 05/21/21 05/21/21 05/21/21 00:35 04:00 04:00 WBC RBC 3.28 L Hgb MCV RDW 18.7 H Plt Count 125 L Lymph % (Auto) Lymph # (Auto) Seg Neutrophils % Seg Neuts % (Manual) Lymphocytes % (Manual) Seg Neutrophils # Man Lymphocytes # (Manual) PT INR ABG pH ABG pO2 ABG HCO3 ABG Base Excess ABG Hemoglobin Oxyhemoglobin Sodium Potassium 5.1 H D Chloride 108.7 H Carbon Dioxide BUN 21 H Creatinine 0.2 L Glucose 242 H POC Glucose 230 H Lactic Acid Calcium 7.3 L Phosphorus Magnesium Total Bilirubin Direct Bilirubin AST ALT Alkaline Phosphatase Total Protein Albumin Lipase Ur Specific [place] Vancomycin Trough 05/21/21 05/21/21 05/21/21 05:08 11:47 17:43 WBC RBC Hgb MCV RDW Plt Count Lymph % (Auto) Lymph # (Auto) Seg Neutrophils % Seg Neuts % (Manual) Lymphocytes % (Manual) Seg Neutrophils # Man Lymphocytes # (Manual) PT INR ABG pH ABG pO2 ABG HCO3 ABG Base Excess ABG Hemoglobin Oxyhemoglobin Sodium Potassium Chloride Carbon Dioxide BUN Creatinine Glucose POC Glucose 196 H 139 H 147 H Lactic Acid Calcium Phosphorus Magnesium Total Bilirubin Direct Bilirubin AST ALT Alkaline Phosphatase Total Protein Albumin Lipase Ur Specific [place] Vancomycin Trough 05/21/21 05/21/21 05/22/21 17:57 23:32 04:16 WBC RBC Hgb MCV RDW Plt Count Lymph % (Auto) Lymph # (Auto) Seg Neutrophils % Seg Neuts % (Manual) Lymphocytes % (Manual) Seg Neutrophils # Man Lymphocytes # (Manual) PT INR ABG pH ABG pO2 ABG HCO3 ABG Base Excess ABG Hemoglobin Oxyhemoglobin Sodium Potassium 5.2 H Chloride Carbon Dioxide BUN 19 H Creatinine 0.2 L Glucose 154 H POC Glucose 218 H 185 H Lactic Acid Calcium 7.5 L Phosphorus Magnesium Total Bilirubin 3.00 H Direct Bilirubin 2.3 H AST 437 H ALT 462 H Alkaline Phosphatase 186 H Total Protein 5.5 L Albumin 1.9 L Lipase Ur Specific [place] Vancomycin Trough 05/22/21 05/22/21 05/22/21 04:30 04:30 04:30 WBC RBC Hgb MCV RDW Plt Count Lymph % (Auto) Lymph # (Auto) Seg Neutrophils % Seg Neuts % (Manual) Lymphocytes % (Manual) Seg Neutrophils # Man Lymphocytes # (Manual) PT 19.5 H INR 1.49 H ABG pH ABG pO2 ABG HCO3 ABG Base Excess ABG Hemoglobin Oxyhemoglobin Sodium 134 L Potassium Chloride Carbon Dioxide BUN 19 H Creatinine 0.2 L Glucose 208 H POC Glucose Lactic Acid Calcium 7.2 L Phosphorus 2.40 L D Magnesium Total Bilirubin 2.20 H Direct Bilirubin AST 350 H ALT 496 H Alkaline Phosphatase 167 H Total Protein 4.8 L Albumin 1.7 L Lipase Ur Specific [place] Vancomycin Trough 05/22/21 05/22/21 05/22/21 11:59 17:16 23:07 WBC RBC Hgb MCV RDW Plt Count Lymph % (Auto) Lymph # (Auto) Seg Neutrophils % Seg Neuts % (Manual) Lymphocytes % (Manual) Seg Neutrophils # Man Lymphocytes # (Manual) PT INR ABG pH ABG pO2 ABG HCO3 ABG Base Excess ABG Hemoglobin Oxyhemoglobin Sodium Potassium Chloride Carbon Dioxide BUN Creatinine Glucose POC Glucose 204 H 244 H 226 H Lactic Acid Calcium Phosphorus Magnesium Total Bilirubin Direct Bilirubin AST ALT Alkaline Phosphatase Total Protein Albumin Lipase Ur Specific [place] Vancomycin Trough 05/23/21 05/23/21 05/23/21 05:09 10:15 10:15 WBC RBC Hgb MCV RDW Plt Count Lymph % (Auto) Lymph # (Auto) Seg Neutrophils % Seg Neuts % (Manual) Lymphocytes % (Manual) Seg Neutrophils # Man Lymphocytes # (Manual) PT 16.9 H INR 1.24 H ABG pH ABG pO2 ABG HCO3 ABG Base Excess ABG Hemoglobin Oxyhemoglobin Sodium 131 L Potassium Chloride 97.5 L Carbon Dioxide BUN Creatinine < 0.2 L Glucose 248 H POC Glucose 175 H Lactic Acid Calcium 7.4 L Phosphorus Magnesium 1.60 L Total Bilirubin Direct Bilirubin AST ALT Alkaline Phosphatase Total Protein Albumin Lipase Ur Specific [place] Vancomycin Trough 05/23/21 05/23/21 05/24/21 10:15 21:46 04:16 WBC RBC Hgb MCV RDW Plt Count Lymph % (Auto) Lymph # (Auto) Seg Neutrophils % Seg Neuts % (Manual) Lymphocytes % (Manual) Seg Neutrophils # Man Lymphocytes # (Manual) PT INR ABG pH ABG pO2 ABG HCO3 ABG Base Excess ABG Hemoglobin Oxyhemoglobin Sodium 130 L Potassium 3.5 L Chloride 97.1 L Carbon Dioxide BUN Creatinine 0.2 L Glucose 235 H POC Glucose 190 H Lactic Acid Calcium 6.8 L Phosphorus Magnesium Total Bilirubin 2.30 H Direct Bilirubin 1.6 H AST 161 H ALT 396 H Alkaline Phosphatase 186 H Total Protein 4.7 L Albumin 2.0 L Lipase Ur Specific [place] Vancomycin Trough 05/24/21 05/25/21 05/25/21 05:32 04:25 04:25 WBC 11.7 H RBC 3.28 L Hgb MCV RDW 19.9 H Plt Count Lymph % (Auto) Lymph # (Auto) Seg Neutrophils % Seg Neuts % (Manual) Lymphocytes % (Manual) Seg Neutrophils # Man Lymphocytes # (Manual) PT INR ABG pH ABG pO2 ABG HCO3 ABG Base Excess ABG Hemoglobin Oxyhemoglobin Sodium 135 L Potassium 3.4 L Chloride Carbon Dioxide BUN Creatinine 0.2 L Glucose 105 H POC Glucose 208 H Lactic Acid Calcium 7.6 L Phosphorus Magnesium Total Bilirubin Direct Bilirubin AST ALT Alkaline Phosphatase Total Protein Albumin Lipase Ur Specific [place] Vancomycin Trough 05/26/21 05/26/21 05/26/21 11:37 16:57 20:59 WBC RBC Hgb MCV RDW Plt Count Lymph % (Auto) Lymph # (Auto) Seg Neutrophils % Seg Neuts % (Manual) Lymphocytes % (Manual) Seg Neutrophils # Man Lymphocytes # (Manual) PT INR ABG pH ABG pO2 ABG HCO3 ABG Base Excess ABG Hemoglobin Oxyhemoglobin Sodium Potassium Chloride Carbon Dioxide BUN Creatinine Glucose POC Glucose 136 H 214 H 137 H Lactic Acid Calcium Phosphorus Magnesium Total Bilirubin Direct Bilirubin AST ALT Alkaline Phosphatase Total Protein Albumin Lipase Ur Specific [place] Vancomycin Trough 05/26/21 05/27/21 05/27/21 23:52 05:40 16:49 WBC RBC Hgb MCV RDW Plt Count Lymph % (Auto) Lymph # (Auto) Seg Neutrophils % Seg Neuts % (Manual) Lymphocytes % (Manual) Seg Neutrophils # Man Lymphocytes # (Manual) PT INR ABG pH ABG pO2 ABG HCO3 ABG Base Excess ABG Hemoglobin Oxyhemoglobin Sodium Potassium Chloride Carbon Dioxide BUN Creatinine Glucose POC Glucose 111 H 144 H 213 H Lactic Acid Calcium Phosphorus Magnesium Total Bilirubin Direct Bilirubin AST ALT Alkaline Phosphatase Total Protein Albumin Lipase Ur Specific [place] Vancomycin Trough Allied health notes reviewed: nursing
[2021-05-27] MEDS: INSULIN GLARGINE 100 UNITS/ML SUB-Q SCH (21:16)
[2021-05-28] MEDS: INSULIN LISPRO 100 UNIT/ML SUB-Q SCH ×4 (00:06→17:33)
[2021-05-28] MEDS: HYDROmorphone 1 MG/1 ML INJ IV PRN ×5 (00:57→20:39)
[2021-05-28] MEDS: HALOPERIDOL LACTATE 5 MG/1 ML INJ IV PRN (03:05)
[2021-05-28] MEDS: DICYCLOMINE 10 MG CAP PO SCH ×4 (09:55→21:04)
[2021-05-28] MEDS: ENOXAPARIN 80 MG/0.8 ML INJ SUB-Q SCH ×2 (09:55→21:04)
[2021-05-28] MEDS: LANSOPRAZOLE 30 MG SOLUTAB FEEDTUBE SCH (09:55)
[2021-05-28] MEDS: DEXAMETHASONE 2 MG TAB FEEDTUBE SCH (09:55)
[2021-05-28] MEDS: ALPRAZolam 1 MG TAB PO PRN ×2 (10:00→20:40)
[2021-05-28] MEDS: ARFORMOTEROL 15 MCG/2 ML NEBU IH SCH ×2 (10:09→22:10)
[2021-05-28] MEDS: BUDESONIDE 0.5 MG/2 ML NEBU IH SCH ×2 (10:09→20:10)
[2021-05-28] MEDS ORDERED: LIPASE 10,500/PROTEASE 25,000/AMYLASE 43,750 (UNITS) DR CAP FEEDTUBE PRN (12:48)
[2021-05-28] MEDS ORDERED: SIMPLE SYRUP 15 ML FEEDTUBE PRN ×2 (12:48)
[2021-05-28] MEDS ORDERED: SODIUM BICARBONATE 325 MG TAB FEEDTUBE PRN (12:48)
--- NOTE | 2021-05-28 14:45 | Progress Note ---
Assessment and Plan Assessment and plan: Interval history: This is a 51-year-old female with COPD, pancreatic cancer and radiation, s/p pancreatic stent placement, pulmonary fibrosis, hypertension and chronic respiratory failure on 2 L oxygen via nasal cannula who presented to emergency department on 05/11 with complaints of right upper quadrant pain which started approximately at 0200 with nausea and vomiting. Work-up in the emergency department included a CTA chest which showed no pulmonary embolism, mild fluid- filled esophagus and distended stomach with bilateral interstitial opacity in the chest, and CT abdomen/pelvis with contrast which showed persistent pancreatic carcinoma with indwelling metallic stent which is suspected to be occluded. Lab work revealed leukocytosis, transaminitis and lactic acidosis. Patient became hypotensive in the emergency department and required 3 L of IV fluid and was eventually started on vasopressors after placement of femoral central line. Patient was started on empiric antibiotics. Admitted to the hospitalist service with consults to GI and [facility] for transaminitis, possible sepsis, and lactic acidosis. 05/12: Patient remains on high-dose Levophed and vasopressin. Given 1 L LR bolus. GI would like an MRCP to be conducted which has been ordered. Patient cleared for sips of water. Added Tessalon due to severe cough. Potassium repleted. Covid PCR negative. 05/13: Remains on Levophed and vasopressin has been off since yesterday evening. Started on stress dose steroids. MRCP pending. Hypokalemia, hypomagnesemia and hypophosphatemia repleted. Liver enzymes trending down. Started on D5 normal saline yesterday. 05/14: Patient with worsen respiratory status this am, tachypneic with increased O2 requirement. On full support on the Bipap this am with worsening diffuse bilateral opacities on CXR, s/p X1 dose of IV lasix overnight. Patient remains afebrile with no leukocytosis. Will continue IV Lasix X3 doses, f/u CXR in the am. D/W CCM due to patient worsening respiratory status hold on MRCP for today. Patient is off Levophed this am, leave pressors on standby might need to be put back on low dose pressors with IV diuretic. Patient also noted with Rt. fem CVC which was inserted in the ED, most likely due to be change, unsuccessfult PICC by IVT today and patient is refusing Port access at this time. 05/15: Patient remains on continuous Bipap overnight, desat when bipap is removed for mouth care. Plan to wean Fio2 as tolerated for SPO2 goal above 90%. Febrile overnight, TMAX 101.4, on IV abx zosyn, repeat blood culture ordered. Low K and phosph repleted, repeat labs in the am. 05/16: Patient back on full support on the Bipap, still not tolerating FiO2 wean, patient desat in the 80s. D/w CCM plan to continue continuous bipap for now, patient going on over 4 days with no nutrition plan to initiate TPN tomorrow. D10w gtt added for hypoglycemia. Patient platelet continue to steadily drop, given patient's history with continue AC for now, H&H is stable, no s/s of any active bleeding. Electrolytes repleted, will continue to trend CBC, BMP, mg, and phos. MRCP canceled, plan to reorder once patient's respiratory status is more stable. 05/17: Patient remains on continuous Bipap. Patient remains on low dose Levophe d, plan to wean off pressors as tolerated for a MAP above 65. Clinimix initiated overnight, plan to start TPN tonight. Hyperglycemic overnight, SSI was initiated. Low phos repleted, repeat lab in the am. 05/18: Down to 60% FIo2 on the Bipap, SPO2 above 97%. Off pressros this am, TPN is running. Patient is now hyperglycemic, SSI adjusted. Consider basal dose, lantus if hyperglycemia persist. This am labs noted, hyperkalemia and really high glucose noted totally different from normal trend, orders placed for redraw. 05/19: Overnight events noted. Started on PRN haldol for agitation. Patient pl aced on heated high Flow at 100%, 40L SPO2 at 100%. Continue to wean Fio2 as tolerated for SPO2 for SPO2 above 92%. Continue TPN for now. Patient still hyperglycemic basal dose lantus added Qhs. 05/20: Patient is tolerating HHFL NC, SPO2 above 95%. Continue HHFL NC during and Bipap at night. Still on TPN for nutrition, hyperglycemia persists- basal insulin increased. Low K and phosp was repleted, repeat lab in the am. 05/21: Patient unable to tolerate OptiFlow for more than couple hours and was placed back on BiPAP due to desaturation. Patient remains on TPN for nutrition which was held today due to hyperkalemia. P.m. BMP ordered but not collected. Patient refused to have port accessed and PICC line ordered. Down grading to [facility] status 05/21 abdominal ultrasound shows findings of emergency megaly and steatosis without other significant abnormality in the right upper quadrant. ST eval ordered and Ntr consult for cyclic TF. midline ordered 05/23/ Patient with acute on chronic resp failure, COPD, pancreatic cancer. She has been transferred to [facility]. She is on BIPAP Hypomag. Replace and recheck in am 05/24/21 Patient with acute on chronic resp failure. Still on BIPAP To start tube feeding 05/25/21 Patient with acute on chronic respiratory failure She desaturated down to Oxygen sat 85% today Will order CT Angio to r/o pulmonary embolism 05/26/21: patient remains on bipap, o2 sat in 90s. CT angio not completed yesterday as patient could not lay flat. Add dilaudid for improved pain control to patient medications and advised nurse staff community health to re-attempt CT angio. Patient has a poor prognosis given pulmonary fibrosis and pancreatic cancer. Will likely re- visit talks of palliaitive care as she may benefit more from this. 05/27/21: Remains bipap dependent. D/w patient regarding comfort care/hospice, she is interested. CM consulted. Patient would still like to remain full code 05/28/21: Remains bipap dependent. Spoke with Eriberto (daughter) who states that she is in agreement for comfort measures for her mother. Coordinating with case management for inpatient hospice referral. Daughter also requested to see her mother in person. Unfortunately due to visitation limitations as a result of the COVID-19 pandemic, daughter will only be able to communicate via telecommu nication devices at this time. Care staff was notified the patient is Surinamese- speaking and to call the daughter if they would like to communicate with the patient. Assessment and Plan Assessment and plan: This is a 48-year-old female with COPD, pancreatic cancer with radiation s/p pancreatic stent placement, pulmonary fibrosis, chronic respiratory failure on 2 L nasal cannula admitted with sepsis, transaminitis and lactic acidosis. Neuro: NAD -Avoid delirium -Reorientation as needed -Maintain sleep-wake cycle CV: Hypotension, h/o HTN -Hold home htn medications -s/p vasopressor support with levo and vasopressin -BP monitoring per protocol -CCM consulted, appreciate recommendations -Hold home htn medications -s/p IV Lasix X 3days Respiratory: h/o pulmonary fibrosis, acute on chronic respiratory failure on home O2 of 2 L nasal cannula -Supplemental oxygen as needed -Tessalon Perles as needed for cough -SPO2 monitoring -Pulmonary hygiene -Bipap q hs and prn -Optiflow as tolerated -Wean FiO2 as tolerated -Pulmonary hygiene GI: Transaminitis, protein calorie malnutrition, biliary dilation, r/o cholangitis, h/o pancreatic cancer s/p stent placement -CT abdomen/pelvis showed pancreatic cancer with metallic stent with possible occlusion, mild pelvic fluid and mild colonic thickening -GI consulted, patient recommendations -MRCP pending-> plan for once respiratory status stable -If stent occlusion/biliary obstruction would recommend IR consult for PTC drain per GI -TPN -start cyclic tube feedings -ST evaluation -PPI -BR to start once taking p.o. -24-hour +390 -Acute hepatitis panel negative -Trend LFTs -Abd US shows findings similar to hepatomegaly and steatosis without significant abnormalities in the right quadrant : Hypophosphatemia -Strict intake and output -Purewick in place -Daily weights -Renally dose meds, avoid nephrotoxins -Replace Phosphate Endo: Hyperglycemia, s/p hypoglycemia -Hypoglycemia protocol -Avoid hypoglycemia -SSI every 6 hours -Lantus, titrate as needed ID: Septic shock, Lactic acidosis (improving) -Blood cultures x2 no growth to date -Patient has leukocytosis, hypotension -s/p IV meropenem -Monitor WBC and fever curve -ID consulted, appreciated recommendation -COVID PCR (-) Heme: Thrombocytopenia, Elevated INR -Trend CBC -Transfuse for hemoglobin less than 7 -SCD to bilateral lower extremities while in bed -Lovenox subcu -Monitor platelets Started Lovenox 1 mg/kg bid until pulm embolism ruled out. If negative for PE, please dc Lovenox 1mg/kg Oncology: h/o pancreatic head cancer -F/U with outpatient oncologist -Currently on radiation -Not a surgical candidate per GI -Right chest post not accessed History Interval history: No overnight events. Remains bipap dependent. Hospitalist Physical - Physical exam Narrative exam: - Physical exam Narrative exam: General appearance: Present: no acute distress, obese, On BIPAP - EENT Eyes: Present: PERRL, EOM intact ENT: hearing intact, clear oral mucosa, dentition normal - Neck Neck: Present: normal ROM - Respiratory Respiratory effort: normal Respiratory: bilateral: diminished - Cardiovascular Rhythm: regular Heart Sounds: Present: S1 & S2. Absent: systolic murmur, diastolic murmur - Extremities Extremities: no ischemia, pulses intact, pulses symmetrical, No edema, normal temperature, normal color Peripheral Pulses: within normal limits - Abdominal General gastrointestinal: soft, non-tender, non-distended, normal bowel sounds - Integumentary Integumentary: Present: warm, dry - Psychiatric Psychiatric: appropriate mood/affect, cooperative - Neurologic Neurologic: CNII-XII intact, moves all extremities - Constitutional Vitals: Temp Pulse Resp BP Pulse Ox 98 F 117 H 23 117/68 90 05/28/21 08:37 05/28/21 12:00 05/28/21 12:00 05/28/21 12:00 05/28/21 12:00 General appearance: Present: no acute distress, obese Results - Labs CBC & Chem 7: 05/25/21 04:25 05/25/21 04:25 Labs: Laboratory Last Values WBC 11.7 K/mm3 (4.5-11.0) H 05/25/21 04:25 RBC 3.28 M/mm3 (3.65-5.03) L 05/25/21 04:25 Hgb 10.3 gm/dl (10.1-14.3) 05/25/21 04:25 Hct 31.6 % (30.3-42.9) 05/25/21 04:25 MCV 96 fl (79-97) 05/25/21 04:25 MCH 32 pg (28-32) 05/25/21 04:25 MCHC 33 % (30-34) 05/25/21 04:25 RDW 19.9 % (13.2-15.2) H 05/25/21 04:25 Plt Count 142 K/mm3 (140-440) 05/25/21 04:25 Lymph % (Auto) 7.4 % (13.4-35.0) L 05/15/21 04:45 Kleberg % (Auto) 6.7 % (0.0-7.3) 05/15/21 04:45 Eos % (Auto) 4.0 % (0.0-4.3) 05/15/21 04:45 Baso % (Auto) 0.7 % (0.0-1.8) 05/15/21 04:45 Lymph # (Auto) 0.6 K/mm3 (1.2-5.4) L 05/15/21 04:45 Kleberg # (Auto) 0.6 K/mm3 (0.0-0.8) 05/15/21 04:45 Eos # (Auto) 0.3 K/mm3 (0.0-0.4) 05/15/21 04:45 Baso # (Auto) 0.1 K/mm3 (0.0-0.1) 05/15/21 04:45 Add Manual Diff Complete 05/12/21 04:08 Total Counted 200 05/12/21 04:08 Seg Neutrophils % 81.2 % (40.0-70.0) H 05/15/21 04:45 Seg Neuts % (Manual) 85.5 % (40.0-70.0) H 05/12/21 04:08 Band Neutrophils % 8.5 % 05/12/21 04:08 Lymphocytes % (Manual) 2.0 % (13.4-35.0) L 05/12/21 04:08 Monocytes % (Manual) 3.0 % (0.0-7.3) 05/12/21 04:08 Eosinophils % (Manual) 1.0 % (0.0-4.3) 05/12/21 04:08 Nucleated RBC % Not Reportable 05/12/21 04:08 Seg Neutrophils # 6.7 K/mm3 (1.8-7.7) 05/15/21 04:45 Seg Neutrophils # Man 19.5 K/mm3 (1.8-7.7) H 05/12/21 04:08 Band Neutrophils # 1.9 K/mm3 05/12/21 04:08 Lymphocytes # (Manual) 0.5 K/mm3 (1.2-5.4) L 05/12/21 04:08 Abs React Lymphs (Man) 0.0 K/mm3 05/12/21 04:08 Monocytes # (Manual) 0.7 K/mm3 (0.0-0.8) 05/12/21 04:08 Eosinophils # (Manual) 0.2 K/mm3 (0.0-0.4) 05/12/21 04:08 Basophils # (Manual) 0.0 K/mm3 (0.0-0.1) 05/12/21 04:08 Metamyelocytes # 0.0 K/mm3 05/12/21 04:08 Myelocytes # 0.0 K/mm3 05/12/21 04:08 Promyelocytes # 0.0 K/mm3 05/12/21 04:08 Blast Cells # 0.0 K/mm3 05/12/21 04:08 WBC Morphology Not Reportable 05/12/21 04:08 Hypersegmented Neuts Not Reportable 05/12/21 04:08 Hyposegmented Neuts Not Reportable 05/12/21 04:08 Hypogranular Neuts Not Reportable 05/12/21 04:08 Smudge Cells Not Reportable 05/12/21 04:08 Toxic Granulation Not Reportable 05/12/21 04:08 Toxic Vacuolation Not Reportable 05/12/21 04:08 Dohle Bodies Not Reportable 05/12/21 04:08 Pelger-Huet Anomaly Not Reportable 05/12/21 04:08 Elizabeth Rods Not Reportable 05/12/21 04:08 Platelet Estimate Consistent w auto 05/12/21 04:08 Clumped Platelets Not Reportable 05/12/21 04:08 Plt Clumps, EDTA Not Reportable 05/12/21 04:08 Large Platelets Not Reportable 05/12/21 04:08 Giant Platelets Not Reportable 05/12/21 04:08 Platelet Satelliting Not Reportable 05/12/21 04:08 Plt Morphology Comment Not Reportable 05/12/21 04:08 RBC Morphology Not Reportable 05/12/21 04:08 Dimorphic RBCs Not Reportable 05/12/21 04:08 Polychromasia Not Reportable 05/12/21 04:08 Hypochromasia Not Reportable 05/12/21 04:08 Poikilocytosis Not Reportable 05/12/21 04:08 Anisocytosis 1+ 05/12/21 04:08 Microcytosis Not Reportable 05/12/21 04:08 Macrocytosis Not Reportable 05/12/21 04:08 Spherocytes Not Reportable 05/12/21 04:08 Pappenheimer Bodies Not Reportable 05/12/21 04:08 Sickle Cells Not Reportable 05/12/21 04:08 Target Cells Not Reportable 05/12/21 04:08 Tear Drop Cells Not Reportable 05/12/21 04:08 Ovalocytes Not Reportable 05/12/21 04:08 Helmet Cells Not Reportable 05/12/21 04:08 Sibley-Campobello Bodies Not Reportable 05/12/21 04:08 Hazen Rings Not Reportable 05/12/21 04:08 Marcin Cells Not Reportable 05/12/21 04:08 Bite Cells Not Reportable 05/12/21 04:08 Crenated Cell Not Reportable 05/12/21 04:08 Elliptocytes Not Reportable 05/12/21 04:08 Acanthocytes (Spur) Not Reportable 05/12/21 04:08 Rouleaux Not Reportable 05/12/21 04:08 Hemoglobin C Crystals Not Reportable 05/12/21 04:08 Schistocytes Not Reportable 05/12/21 04:08 Malaria parasites Not Reportable 05/12/21 04:08 Tahir Bodies Not Reportable 05/12/21 04:08 Hem Pathologist Commnt No 05/12/21 04:08 PT 16.9 Sec. (12.2-14.9) H 05/23/21 10:15 INR 1.24 (0.87-1.13) H 05/23/21 10:15 ABG pH 7.482 pH Units (7.350-7.450) H 05/19/21 14:14 ABG pCO2 42.9 mm Hg 05/19/21 14:14 ABG pO2 111.7 mm Hg (80.0-90.0) H 05/19/21 14:14 ABG HCO3 31.4 mmol/L (20.0-26.0) H 05/19/21 14:14 ABG O2 Saturation 98.2 % (95.0-99.0) 05/19/21 14:14 ABG O2 Content 15.2 (0.0-44) 05/19/21 14:14 ABG Base Excess 7.2 mmol/L (-2.0-3.0) H 05/19/21 14:14 ABG Hemoglobin 11.1 gm/dl (12.0-16.0) L 05/19/21 14:14 ABG Carboxyhemoglobin 1.1 % (0.0-5.0) 05/19/21 14:14 ABG Methemoglobin 0.6 % (0.0-1.5) 05/19/21 14:14 Oxyhemoglobin 96.4 % (95.0-99.0) 05/19/21 14:14 FiO2 100 % 05/19/21 14:14 Sodium 135 mmol/L (137-145) L 05/25/21 04:25 Potassium 3.4 mmol/L (3.6-5.0) L 05/25/21 04:25 Chloride 100.3 mmol/L (98-107) 05/25/21 04:25 Carbon Dioxide 25 mmol/L (22-30) 05/25/21 04:25 Anion Gap 13 mmol/L 05/25/21 04:25 BUN 15 mg/dL (7-17) 05/25/21 04:25 Creatinine 0.2 mg/dL (0.6-1.2) L 05/25/21 04:25 Estimated GFR > 60 ml/min 05/25/21 04:25 BUN/Creatinine Ratio 75 % 05/25/21 04:25 Glucose 105 mg/dL (65-100) H 05/25/21 04:25 POC Glucose 130 mg/dL (70-105) H 05/28/21 11:59 Hemoglobin A1c 5.2 % (4-6) 05/12/21 04:08 Lactic Acid 3.30 mmol/L (0.7-2.0) H* 05/12/21 Unknown Calcium 7.6 mg/dL (8.4-10.2) L 05/25/21 04:25 Phosphorus 2.60 mg/dL (2.5-4.5) 05/24/21 04:16 Magnesium 2.00 mg/dL (1.7-2.3) 05/24/21 04:16 Total Bilirubin 2.30 mg/dL (0.1-1.2) H 05/23/21 10:15 Direct Bilirubin 1.6 mg/dL (0-0.2) H 05/23/21 10:15 Indirect Bilirubin 0.7 mg/dL 05/23/21 10:15 AST 161 units/L (5-40) H 05/23/21 10:15 ALT 396 units/L (7-56) H 05/23/21 10:15 Alkaline Phosphatase 186 units/L (35-129) H 05/23/21 10:15 Total Protein 4.7 g/dL (6.3-8.2) L 05/23/21 10:15 Albumin 2.0 g/dL (3.9-5) L 05/23/21 10:15 Albumin/Globulin Ratio 0.7 % 05/23/21 10:15 Triglycerides 90 mg/dL (2-149) 05/23/21 10:15 Lipase 3 units/L (13-60) L 05/11/21 05:43 Urine Color Deisi (Yellow) 05/11/21 11:18 Urine Turbidity Clear (Clear) 05/11/21 11:18 Urine pH 6.0 (5.0-7.0) 05/11/21 11:18 Ur Specific [place] 1.035 (1.003-1.030) H 05/11/21 11:18 Urine Protein 100 mg/dl mg/dL (Negative) 05/11/21 11:18 Urine Glucose (UA) Neg mg/dL (Negative) 05/11/21 11:18 Urine Ketones Neg mg/dL (Negative) 05/11/21 11:18 Urine Blood Neg (Negative) 05/11/21 11:18 Urine Nitrite Neg (Negative) 05/11/21 11:18 Urine Bilirubin Neg (Negative) 05/11/21 11:18 Urine Urobilinogen < 2.0 mg/dL (<2.0) 05/11/21 11:18 Ur Leukocyte Esterase Neg (Negative) 05/11/21 11:18 Urine WBC (Auto) 2.0 /HPF (0.0-6.0) 05/11/21 11:18 Urine RBC (Auto) 1.0 /HPF (0.0-6.0) 05/11/21 11:18 Urine Mucus Few /HPF 05/11/21 11:18 Vancomycin Trough 25.3 ug/mL (5.0-20.0) H 05/14/21 15:20 Coronavirus (PCR) Negative (Negative) 05/12/21 10:16 Hepatitis A IgM Ab Non-reactive (NonReactive) 05/12/21 12:30 Hep Bs Antigen Nonreactive (Negative) 05/12/21 12:30 Hep B Core IgM Ab Non-reactive (NonReactive) 05/12/21 12:30 Hepatitis C Antibody Non-reactive (NonReactive) 05/12/21 12:30 Rivas/IV: Voiding Method Indwelling Catheter Active Medications - Current Medications Current Medications: Generic Name Dose Route Start Last Admin Trade Name Freq PRN Reason Stop Dose Admin Acetaminophen 650 mg 05/11/21 21:40 05/14/21 20:06 Acetaminophen 325 Mg Tab PO 650 mg Q4H PRN Administration Pain MILD(1-3)/Fever >100.5/WOODS Alprazolam 1 mg 05/28/21 09:53 05/28/21 10:00 Alprazolam 1 Mg Tab PO 1 mg Q8H PRN Administration Anxiety Lipase/Protease/Amylase 1 each 05/22/21 16:30 Lipase 10,500/Protease 25,000/Amylase 43,750 (Units) Dr Baker FEEDTUBE PRN PRN For Clogged Feeding Tube Arformoterol Tartrate 15 mcg 05/12/21 08:00 05/28/21 10:09 Arformoterol 15 Mcg/2 Ml Nebu IH 15 mcg Q12HRT ABRAHAN Administration Benzonatate 100 mg 05/12/21 15:53 05/23/21 22:02 Benzonatate 100 Mg Cap PO 100 mg Q8HR PRN Administration Cough Budesonide 0.5 mg 05/12/21 08:00 05/28/21 10:09 Budesonide 0.5 Mg/2 Ml Nebu IH 0.5 mg Q12HRT ABRAHAN Administration Dexamethasone 6 mg 05/28/21 10:00 05/28/21 09:55 Dexamethasone 2 Mg Tab FEEDTUBE 6 mg Q24HR ABRAHAN Administration Dextrose 50 ml 05/12/21 11:57 05/16/21 08:30 Dextrose 50% In Water (25gm) 50 Ml Syringe IV 20 ml Q30MIN PRN Administration Hypoglycemia Protocol Dicyclomine HCl 10 mg 05/23/21 14:00 05/28/21 13:05 Dicyclomine 10 Mg Cap PO 10 mg QID ABRAHAN Administration Enoxaparin Sodium 80 mg 05/25/21 12:00 05/28/21 09:55 Enoxaparin 80 Mg/0.8 Ml Inj SUB-Q 80 mg Q12HR ABRAHAN Administration Protocol Haloperidol Lactate 5 mg 05/19/21 15:00 05/28/21 03:05 Haloperidol Lactate 5 Mg/1 Ml Inj IV 5 mg Q8H PRN Administration Agitation Hydromorphone HCl 0.5 mg 05/26/21 14:58 05/28/21 13:05 Hydromorphone 1 Mg/1 Ml Inj IV 0.5 mg Q3H PRN Administration Pain , Severe (7-10) Insulin Glargine 20 units 05/22/21 22:00 05/27/21 21:16 Insulin Glargine 100 Units/Ml SUB-Q 20 units QHS ABRAHAN Administration Insulin Human Lispro 0 unit 05/17/21 12:00 05/28/21 05:34 Insulin Lispro 100 Unit/Ml SUB-Q Not Given Q6HR COUNT INCLUDES THE [facility] Protocol Lansoprazole 30 mg 05/28/21 10:00 05/28/21 09:55 Lansoprazole 30 Mg Solutab FEEDTUBE 30 mg QDAY ABRAHAN Administration Metoclopramide HCl 10 mg 05/11/21 21:40 Metoclopramide 10 Mg/2 Ml Inj IV Q6H PRN Nausea And Vomiting Morphine Sulfate 2 mg 05/11/21 21:40 05/26/21 09:42 Morphine 2 Mg/1 Ml Inj IV 2 mg Q4H PRN Administration Pain, Moderate (4-6) Ondansetron HCl 4 mg 05/11/21 21:40 05/15/21 09:57 Ondansetron 4 Mg/2 Ml Inj IV 4 mg Q8H PRN Administration Nausea And Vomiting Simple Syrup 15 ml 05/22/21 16:30 Simple Syrup 15 Ml FEEDTUBE PRN PRN Hypoglycemia Simple Syrup 30 ml 05/22/21 16:30 Simple Syrup 15 Ml FEEDTUBE PRN PRN Hypoglycemia Sodium Bicarbonate 325 mg 05/22/21 16:30 Sodium Bicarbonate 325 Mg Tab FEEDTUBE PRN PRN For Clogged Feeding Tube Sodium Chloride 10 ml 05/11/21 22:00 05/27/21 21:13 Sodium Chloride 0.9% 10 Ml Flush Syringe IV 10 ml BID ABRAHAN Administration Sodium Chloride 10 ml 05/11/21 21:40 05/23/21 21:00 Sodium Chloride 0.9% 10 Ml Flush Syringe IV 10 ml PRN PRN Administration LINE FLUSH Nutrition/Malnutrition Assess - Dietary Evaluation Nutrition/Malnutrition Findings: Nutrition Notes Start: 05/13/21 09:47 Freq: Status: Active Protocol: Document 05/28/21 12:38 MARITZA (Rec: 05/28/21 12:48 MARITZA [id number]) Nutrition Notes Initial or Follow up Reassessment Current Diagnosis COPD,Respiratory Failure Other Pertinent Diagnosis Pancreatic CA, pulmonary fibrosis Current Diet TF - Vital AF 1.2 at 42ml/hr Labs/Tests Reviewed Pertinent Medications Decadron Height 5 ft 2 in Weight 64.4 kg [place] Body Weight (kg) 50.00 BMI 25.9 Weight change and time frame Current wt obtained from bed scale Weight Status Appropriate Subjective/Other Information Pt transferred to [facility] on . She remains dependent on BiPap. Per LIDAR ANALYST eval on 05/23, pt safe for a pureed diet, however, tends to desaturate when off the BiPap. TF infusing at goal rate at time of visit (12:35). Pt tolerating TF. Percent of energy/protein needs met: 84% energy 100% pro Burn Absent Trauma Absent #2 Nutrition Diagnosis Malnutrition Diagnosis Progress(for reassessment Continues documentation) #1 Nutrition Diagnosis Altered GI function As Evidenced by Signs and Symptoms pt tolerating EN support Diagnosis Progress(for reassessment Resolved documentation) Is patient on ventilator? No Is Patient Ambulatory and/or Out of Bed No REE-([facility]-confined to bed) 1447.020 Calculation Used for Recommendations [facility] Additional Notes Pro needs 1-1.2g/k-77g/ day Fluid needs 1ml/kcal Nutrition Intervention Nutrition Support: Change TF formula to Glucerna 1.2 at 50ml/hr Kcal 1,440 Protein (gm) 72 Carbohydrates (gm) 137 Fat (gm) 72 Fluid (mL) 966 Fiber (gm) 19 Goal #1 TF tolerance Goal #2 TF to meet at least 75% energy and pro needs Follow-Up By: 06/01/21 Additional Comments F/U: TF formula change and tolerance, resp status
--- NOTE | 2021-05-28 19:24 | Progress Note ---
Assessment and Plan 51-year-old female with history of COPD, Hypertension and pancreatic cancer comes in for right upper quadrant pain since 2 AM. Pain is about 10 on a scale of 1-10. Also associated with nausea and vomiting. Patient is on radiation therapy for pancreatic cancer. Patient also has a history of pulmonary fibrosis and is on 2 L nasal cannula oxygen. Vomited about 3-4 times. No fever or chills. No aggravating or relieving factors. No exposure to coronavirus. Patient has history of smoking. Not smoking. Denies alcohol or drug abuse. Patient is awake. Patient is on BIPAP 15/10, rate 18, FIO2 100%. O2 saturation 98% . Mild increase in work of breathing. Patient afebrile. Has mild leukocytosis. Blood pressure 116/78, pulse 103, respirations 26. Chest xray done 05/13/21 reported No acute change since 03/19/2019. Interstitial lung disease or early pulmonary fibrosis is suspected and unchanged. Patient has angio CT of chest done on 05/11/[address] evidence for pulmonary embolism. Bilateral interstitial opacity remains with overall mild worsening Mild fluid-filled esophagus. The stomach is also distended with fluid. Chest xray done 05/24/21 reported Feeding tube courses beneath the diaphragm with tip not visualized. Improving airspace disease. Patient is on Budesonide/Brovanna aerosol treatments, Decadron, S/C Lovenox in therapeutic dose, Protonix, I spent critical care time of 35 minutes, obtaining history, review the chart, Examine the patient, review labs and chest xray, Ct scan of chest, talking to the nursing staff and work up plan of treatment. - Patient Problems (1) Hypotension Current Visit: Yes Status: Acute Plan to address problem: Patients blood pressure improved. Patient is off Norepinephrine and vasopressin. (2) Sepsis Current Visit: Yes Status: Acute Plan to address problem: Patient was on cefepime and vancomycin. (3) Pancreatic cancer Current Visit: Yes Status: Chronic Qualifiers: Pancreatic malignancy location: body of pancreas Qualified Code(s): C25.1 - Malignant neoplasm of body of pancreas Plan to address problem: Management as per primary care and oncology. (4) Asthma exacerbation Current Visit: No Status: Acute Plan to address problem: Patient is on Brovanna/Budesonide aerosol treatments. Patient is on Decadron. S/C Lovenox Prevacid. (5) Bilateral pneumonia Current Visit: No Status: Acute Plan to address problem: Patient was on Cefepime and vancomycin. (6) Interstitial lung disease Current Visit: No Status: Acute Plan to address problem: Recommend TED, rheumatoid factor, CANCA, BRIGHT levels. PFTs as out patient. (7) HTN (hypertension) Current Visit: No Status: Chronic Qualifiers: Hypertension type: essential hypertension Plan to address problem: Management as per primary care. Subjective Date of service: 05/28/21 Principal diagnosis: Septic shock; Pulm fibrosis; Hypoxemic resp failure; COVID- 19 infxn Interval history: 51-year-old female with history of COPD, Hypertension and pancreatic cancer comes in for right upper quadrant pain since 2 AM. Pain is about 10 on a scale of 1-10. Also associated with nausea and vomiting. Patient is on radiation therapy for pancreatic cancer. Patient also has a history of pulmonary fibrosis and is on 2 L nasal cannula oxygen. Vomited about 3-4 times. No fever or chills. No aggravating or relieving factors. No exposure to coronavirus. Patient has history of smoking. Not smoking. Denies alcohol or drug abuse. Patient is awake. Patient is on BIPAP 15/10, rate 18, FIO2 100%. O2 saturation 98% . Mild increase in work of breathing. Patient afebrile. Has mild leukocytosis. Blood pressure 116/78, pulse 103, respirations 26. Chest xray done 05/13/21 reported No acute change since 03/19/2019. Interstitial lung disease or early pulmonary fibrosis is suspected and unchanged. Patient has angio CT of chest done on 05/11/[address] evidence for pulmonary embolism. Bilateral interstitial opacity remains with overall mild worsening Mild fluid-filled esophagus. The stomach is also distended with fluid. Chest xray done 05/24/21 reported Feeding tube courses beneath the diaphragm with tip not visualized. Improving airspace disease. Patient is on Budesonide/Brovanna aerosol treatments, Decadron, S/C Lovenox in therapeutic dose, Prevacid. Objective Vital Signs - 12hr 05/28/21 05/28/21 05/28/21 07:31 08:00 08:31 Temperature Pulse Rate 116 H 105 H 105 H Pulse Rate [ Bilateral Throughout] Pulse Rate [ 111 H From Monitor] Respiratory 27 H 16 18 Rate Respiratory Rate [Bilateral Throughout] Blood Pressure 130/103 108/87 108/87 O2 Sat by Pulse 91 87 88 Oximetry 05/28/21 05/28/21 05/28/21 08:37 09:00 09:31 Temperature 98 F Pulse Rate 93 H 117 H Pulse Rate [ Bilateral Throughout] Pulse Rate [ From Monitor] Respiratory 17 23 Rate Respiratory Rate [Bilateral Throughout] Blood Pressure 110/81 110/81 O2 Sat by Pulse 90 89 Oximetry 05/28/21 05/28/21 05/28/21 10:00 10:09 10:11 Temperature Pulse Rate 121 H 126 H Pulse Rate [ 114 H Bilateral Throughout] Pulse Rate [ From Monitor] Respiratory 27 H 24 Rate Respiratory 28 H Rate [Bilateral Throughout] Blood Pressure 127/86 O2 Sat by Pulse 88 88 Oximetry 05/28/21 05/28/21 05/28/21 10:31 11:00 11:31 Temperature Pulse Rate 115 H 113 H 111 H Pulse Rate [ Bilateral Throughout] Pulse Rate [ From Monitor] Respiratory 15 16 29 H Rate Respiratory Rate [Bilateral Throughout] Blood Pressure 127/86 106/82 106/82 O2 Sat by Pulse 92 92 92 Oximetry 05/28/21 05/28/21 05/28/21 12:00 12:31 13:00 Temperature 97.5 F L Pulse Rate 98 H 108 H 114 H Pulse Rate [ Bilateral Throughout] Pulse Rate [ 89 From Monitor] Respiratory 19 18 26 H Rate Respiratory Rate [Bilateral Throughout] Blood Pressure 117/68 117/68 107/75 O2 Sat by Pulse 90 93 94 Oximetry 05/28/21 05/28/21 05/28/21 13:30 14:00 14:30 Temperature Pulse Rate 108 H 106 H 109 H Pulse Rate [ Bilateral Throughout] Pulse Rate [ From Monitor] Respiratory 14 12 14 Rate Respiratory Rate [Bilateral Throughout] Blood Pressure 107/75 117/81 117/81 O2 Sat by Pulse 95 95 96 Oximetry 05/28/21 05/28/21 05/28/21 15:00 15:30 15:46 Temperature Pulse Rate 102 H 103 H 102 H Pulse Rate [ Bilateral Throughout] Pulse Rate [ From Monitor] Respiratory 13 13 24 Rate Respiratory Rate [Bilateral Throughout] Blood Pressure 107/79 107/79 107/79 O2 Sat by Pulse 96 96 95 Oximetry 05/28/21 05/28/21 05/28/21 16:00 16:30 17:00 Temperature 98.0 F Pulse Rate 102 H 100 H 120 H Pulse Rate [ Bilateral Throughout] Pulse Rate [ 89 From Monitor] Respiratory 13 13 21 Rate Respiratory Rate [Bilateral Throughout] Blood Pressure 107/74 107/74 115/79 O2 Sat by Pulse 96 96 94 Oximetry 05/28/21 05/28/21 05/28/21 17:31 18:00 18:31 Temperature Pulse Rate 101 H 95 H 96 H Pulse Rate [ Bilateral Throughout] Pulse Rate [ From Monitor] Respiratory 15 17 15 Rate Respiratory Rate [Bilateral Throughout] Blood Pressure 115/79 125/76 125/76 O2 Sat by Pulse 98 96 97 Oximetry 05/28/21 19:00 Temperature Pulse Rate 102 H Pulse Rate [ Bilateral Throughout] Pulse Rate [ From Monitor] Respiratory 26 H Rate Respiratory Rate [Bilateral Throughout] Blood Pressure 116/78 O2 Sat by Pulse 98 Oximetry Constitutional: alert, appears uncomfortable, other (mildly increased respiratory effort at rest ) Eyes: non-icteric ENT: oropharynx moist Neck: supple, no lymphadenopathy, no JVD Effort: mildly labored Ascultation: Bilateral: diminished breath sounds, rales (posterior bases) Percussion: Bilateral: not dull Cardiovascular: regular rate and rhythm, other (S1,S2) Gastrointestinal: normoactive bowel sounds, hypoactive bowel sounds, soft, non- distended (protuberant) Integumentary: normal Extremities: no cyanosis, no edema, pulses normal, other (right femoral CVL) Neurologic: normal mental status, non-focal exam, pupils equal and round, other (somnolent) Psychiatric: mood appropriate, affect normal, other (somnolenet) CBC and BMP: 05/25/21 04:25 05/29/21 05:07 ABG, PT/INR, D-dimer: ABG ABG pH 7.482 pH Units (7.350-7.450) H 05/19/21 14:14 ABG pCO2 42.9 mm Hg 05/19/21 14:14 ABG pO2 111.7 mm Hg (80.0-90.0) H 05/19/21 14:14 ABG O2 Saturation 98.2 % (95.0-99.0) 05/19/21 14:14 PT/INR, D-dimer PT 16.9 Sec. (12.2-14.9) H 05/23/21 10:15 INR 1.24 (0.87-1.13) H 05/23/21 10:15 Abnormal lab findings: Abnormal Labs 05/11/21 05/11/21 05/11/21 05:43 05:43 05:43 WBC RBC Hgb MCV 98 H RDW 17.7 H Plt Count Lymph % (Auto) 10.8 L Lymph # (Auto) 0.6 L Seg Neutrophils % 84.1 H Seg Neuts % (Manual) Lymphocytes % (Manual) Seg Neutrophils # Man Lymphocytes # (Manual) PT 16.0 H INR 1.16 H ABG pH ABG pO2 ABG HCO3 ABG Base Excess ABG Hemoglobin Oxyhemoglobin Sodium Potassium Chloride Carbon Dioxide 21 L BUN 4 L Creatinine 0.4 L Glucose POC Glucose Lactic Acid Calcium 8.3 L Phosphorus Magnesium Total Bilirubin 2.10 H Direct Bilirubin 1.4 H AST 335 H ALT 57 H Alkaline Phosphatase 339 H Total Protein Albumin 2.4 L Lipase 3 L Ur Specific [place] Vancomycin Trough 05/11/21 05/11/21 05/12/21 11:18 12:28 04:08 WBC RBC Hgb MCV RDW Plt Count Lymph % (Auto) Lymph # (Auto) Seg Neutrophils % Seg Neuts % (Manual) Lymphocytes % (Manual) Seg Neutrophils # Man Lymphocytes # (Manual) PT INR ABG pH ABG pO2 ABG HCO3 ABG Base Excess ABG Hemoglobin Oxyhemoglobin Sodium Potassium Chloride Carbon Dioxide BUN Creatinine Glucose POC Glucose Lactic Acid 4.20 H* 4.50 H* Calcium Phosphorus Magnesium Total Bilirubin Direct Bilirubin AST ALT Alkaline Phosphatase Total Protein Albumin Lipase Ur Specific [place] 1.035 H Vancomycin Trough 05/12/21 05/12/21 05/12/21 04:08 04:08 09:47 WBC 22.8 H RBC 3.39 L Hgb MCV 98 H RDW 17.7 H Plt Count Lymph % (Auto) Lymph # (Auto) Seg Neutrophils % Seg Neuts % (Manual) 85.5 H Lymphocytes % (Manual) 2.0 L Seg Neutrophils # Man 19.5 H Lymphocytes # (Manual) 0.5 L PT INR ABG pH ABG pO2 ABG HCO3 ABG Base Excess ABG Hemoglobin Oxyhemoglobin Sodium Potassium 3.3 L Chloride 108.9 H Carbon Dioxide 17 L BUN 4 L Creatinine 0.5 L Glucose 106 H POC Glucose Lactic Acid 2.60 H* Calcium 6.4 L D Phosphorus Magnesium Total Bilirubin 2.10 H Direct Bilirubin AST 156 H ALT 61 H Alkaline Phosphatase 317 H Total Protein 5.4 L D Albumin 1.8 L Lipase Ur Specific [place] Vancomycin Trough 05/12/21 05/12/21 05/12/21 11:47 12:30 12:36 WBC RBC Hgb MCV RDW Plt Count Lymph % (Auto) Lymph # (Auto) Seg Neutrophils % Seg Neuts % (Manual) Lymphocytes % (Manual) Seg Neutrophils # Man Lymphocytes # (Manual) PT INR ABG pH ABG pO2 ABG HCO3 ABG Base Excess ABG Hemoglobin Oxyhemoglobin Sodium Potassium Chloride Carbon Dioxide BUN Creatinine Glucose POC Glucose 59 L 120 H Lactic Acid 2.50 H* Calcium Phosphorus Magnesium Total Bilirubin Direct Bilirubin AST ALT Alkaline Phosphatase Total Protein Albumin Lipase Ur Specific [place] Vancomycin Trough 05/12/21 05/12/21 05/13/21 23:45 Unknown 04:00 WBC 19.8 H RBC 3.52 L Hgb MCV 98 H RDW 18.5 H Plt Count Lymph % (Auto) Lymph # (Auto) Seg Neutrophils % Seg Neuts % (Manual) Lymphocytes % (Manual) Seg Neutrophils # Man Lymphocytes # (Manual) PT INR ABG pH ABG pO2 ABG HCO3 ABG Base Excess ABG Hemoglobin Oxyhemoglobin Sodium Potassium Chloride Carbon Dioxide BUN Creatinine Glucose POC Glucose 119 H Lactic Acid 3.30 H* Calcium Phosphorus Magnesium Total Bilirubin Direct Bilirubin AST ALT Alkaline Phosphatase Total Protein Albumin Lipase Ur Specific [place] Vancomycin Trough 05/13/21 05/13/21 05/13/21 04:00 05:42 12:19 WBC RBC Hgb MCV RDW Plt Count Lymph % (Auto) Lymph # (Auto) Seg Neutrophils % Seg Neuts % (Manual) Lymphocytes % (Manual) Seg Neutrophils # Man Lymphocytes # (Manual) PT INR ABG pH ABG pO2 ABG HCO3 ABG Base Excess ABG Hemoglobin Oxyhemoglobin Sodium Potassium 3.4 L Chloride 107.1 H Carbon Dioxide 19 L BUN 4 L Creatinine 0.4 L Glucose 157 H POC Glucose 143 H 110 H Lactic Acid Calcium 7.4 L D Phosphorus 1.60 L Magnesium 1.50 L Total Bilirubin 1.40 H Direct Bilirubin AST 95 H ALT Alkaline Phosphatase 328 H Total Protein 5.5 L Albumin 1.6 L Lipase Ur Specific [place] Vancomycin Trough 05/14/21 05/14/21 05/14/21 06:15 06:15 10:25 WBC 11.7 H RBC 3.41 L Hgb MCV 98 H RDW 18.6 H Plt Count Lymph % (Auto) Lymph # (Auto) Seg Neutrophils % Seg Neuts % (Manual) Lymphocytes % (Manual) Seg Neutrophils # Man Lymphocytes # (Manual) PT INR ABG pH ABG pO2 76.0 L ABG HCO3 27.2 H ABG Base Excess ABG Hemoglobin 11.5 L Oxyhemoglobin 94.4 L Sodium Potassium 3.2 L Chloride Carbon Dioxide BUN 6 L Creatinine 0.5 L Glucose 103 H POC Glucose Lactic Acid Calcium 7.3 L Phosphorus 1.70 L Magnesium Total Bilirubin Direct Bilirubin AST 66 H ALT Alkaline Phosphatase 295 H Total Protein 5.3 L Albumin 1.8 L Lipase Ur Specific [place] Vancomycin Trough 05/14/21 05/14/21 05/14/21 15:20 15:20 17:26 WBC RBC Hgb MCV RDW Plt Count Lymph % (Auto) Lymph # (Auto) Seg Neutrophils % Seg Neuts % (Manual) Lymphocytes % (Manual) Seg Neutrophils # Man Lymphocytes # (Manual) PT INR ABG pH ABG pO2 ABG HCO3 ABG Base Excess ABG Hemoglobin Oxyhemoglobin Sodium 146 H D Potassium Chloride 108.4 H Carbon Dioxide BUN 5 L Creatinine 0.5 L Glucose POC Glucose 63 L Lactic Acid Calcium 7.6 L Phosphorus Magnesium Total Bilirubin Direct Bilirubin AST ALT Alkaline Phosphatase Total Protein Albumin Lipase Ur Specific [place] Vancomycin Trough 25.3 H 05/14/21 05/15/21 05/15/21 21:27 00:03 00:29 WBC RBC Hgb MCV RDW Plt Count Lymph % (Auto) Lymph # (Auto) Seg Neutrophils % Seg Neuts % (Manual) Lymphocytes % (Manual) Seg Neutrophils # Man Lymphocytes # (Manual) PT INR ABG pH ABG pO2 ABG HCO3 ABG Base Excess ABG Hemoglobin Oxyhemoglobin Sodium Potassium Chloride Carbon Dioxide BUN Creatinine Glucose POC Glucose 52 L 54 L 129 H Lactic Acid Calcium Phosphorus Magnesium Total Bilirubin Direct Bilirubin AST ALT Alkaline Phosphatase Total Protein Albumin Lipase Ur Specific [place] Vancomycin Trough 05/15/21 05/15/21 05/15/21 04:45 04:45 11:58 WBC RBC 3.24 L Hgb MCV 98 H RDW 18.5 H Plt Count 122 L Lymph % (Auto) 7.4 L Lymph # (Auto) 0.6 L Seg Neutrophils % 81.2 H Seg Neuts % (Manual) Lymphocytes % (Manual) Seg Neutrophils # Man Lymphocytes # (Manual) PT INR ABG pH ABG pO2 ABG HCO3 ABG Base Excess ABG Hemoglobin Oxyhemoglobin Sodium 146 H Potassium 3.1 L Chloride 108.8 H Carbon Dioxide BUN 6 L Creatinine Glucose 121 H POC Glucose 68 L Lactic Acid Calcium 7.5 L Phosphorus 2.30 L D Magnesium Total Bilirubin 1.90 H Direct Bilirubin AST 55 H ALT Alkaline Phosphatase 231 H Total Protein 5.4 L Albumin 1.5 L Lipase Ur Specific [place] Vancomycin Trough 05/15/21 05/16/21 05/16/21 13:50 00:06 00:43 WBC RBC Hgb MCV RDW Plt Count Lymph % (Auto) Lymph # (Auto) Seg Neutrophils % Seg Neuts % (Manual) Lymphocytes % (Manual) Seg Neutrophils # Man Lymphocytes # (Manual) PT INR ABG pH ABG pO2 ABG HCO3 ABG Base Excess ABG Hemoglobin Oxyhemoglobin Sodium Potassium Chloride Carbon Dioxide BUN Creatinine Glucose POC Glucose 147 H 54 L 116 H Lactic Acid Calcium Phosphorus Magnesium Total Bilirubin Direct Bilirubin AST ALT Alkaline Phosphatase Total Protein Albumin Lipase Ur Specific [place] Vancomycin Trough 05/16/21 05/16/21 05/16/21 04:31 04:31 05:58 WBC RBC 3.12 L Hgb 9.8 L MCV 98 H RDW 18.2 H Plt Count 115 L Lymph % (Auto) Lymph # (Auto) Seg Neutrophils % Seg Neuts % (Manual) Lymphocytes % (Manual) Seg Neutrophils # Man Lymphocytes # (Manual) PT INR ABG pH ABG pO2 ABG HCO3 ABG Base Excess ABG Hemoglobin Oxyhemoglobin Sodium 146 H Potassium 3.2 L Chloride Carbon Dioxide BUN 5 L Creatinine 0.5 L Glucose POC Glucose 61 L Lactic Acid Calcium 7.2 L Phosphorus 2.30 L Magnesium Total Bilirubin Direct Bilirubin AST ALT Alkaline Phosphatase Total Protein Albumin Lipase Ur Specific [place] Vancomycin Trough 05/16/21 05/16/21 05/17/21 08:11 23:42 04:15 WBC RBC Hgb MCV RDW Plt Count Lymph % (Auto) Lymph # (Auto) Seg Neutrophils % Seg Neuts % (Manual) Lymphocytes % (Manual) Seg Neutrophils # Man Lymphocytes # (Manual) PT INR ABG pH ABG pO2 ABG HCO3 ABG Base Excess ABG Hemoglobin Oxyhemoglobin Sodium Potassium Chloride Carbon Dioxide BUN Creatinine Glucose POC Glucose 58 L 200 H Lactic Acid Calcium Phosphorus Magnesium Total Bilirubin 1.70 H Direct Bilirubin 1.5 H AST 43 H ALT Alkaline Phosphatase 196 H Total Protein 5.4 L Albumin 1.6 L Lipase Ur Specific [place] Vancomycin Trough 05/17/21 05/17/21 05/17/21 04:15 04:15 05:07 WBC RBC 3.26 L Hgb MCV 98 H RDW 18.9 H Plt Count 114 L Lymph % (Auto) Lymph # (Auto) Seg Neutrophils % Seg Neuts % (Manual) Lymphocytes % (Manual) Seg Neutrophils # Man Lymphocytes # (Manual) PT INR ABG pH ABG pO2 ABG HCO3 ABG Base Excess ABG Hemoglobin Oxyhemoglobin Sodium Potassium Chloride Carbon Dioxide 35 H BUN 5 L Creatinine Glucose 274 H POC Glucose 249 H Lactic Acid Calcium 7.7 L Phosphorus 1.50 L D Magnesium Total Bilirubin Direct Bilirubin AST ALT Alkaline Phosphatase Total Protein Albumin Lipase Ur Specific [place] Vancomycin Trough 05/17/21 05/17/21 05/17/21 11:56 16:29 23:37 WBC RBC Hgb MCV RDW Plt Count Lymph % (Auto) Lymph # (Auto) Seg Neutrophils % Seg Neuts % (Manual) Lymphocytes % (Manual) Seg Neutrophils # Man Lymphocytes # (Manual) PT INR ABG pH ABG pO2 ABG HCO3 ABG Base Excess ABG Hemoglobin Oxyhemoglobin Sodium Potassium Chloride Carbon Dioxide BUN Creatinine Glucose POC Glucose 176 H 219 H 150 H Lactic Acid Calcium Phosphorus Magnesium Total Bilirubin Direct Bilirubin AST ALT Alkaline Phosphatase Total Protein Albumin Lipase Ur Specific [place] Vancomycin Trough 05/18/21 05/18/21 05/18/21 04:00 05:22 09:00 WBC RBC 3.34 L Hgb MCV RDW 18.8 H Plt Count Lymph % (Auto) Lymph # (Auto) Seg Neutrophils % Seg Neuts % (Manual) Lymphocytes % (Manual) Seg Neutrophils # Man Lymphocytes # (Manual) PT INR ABG pH ABG pO2 ABG HCO3 ABG Base Excess ABG Hemoglobin Oxyhemoglobin Sodium Potassium 5.4 H D Chloride 97.5 L Carbon Dioxide 33 H BUN Creatinine 0.4 L Glucose 461 H POC Glucose 181 H Lactic Acid Calcium 7.2 L Phosphorus 5.00 H D Magnesium Total Bilirubin Direct Bilirubin AST ALT Alkaline Phosphatase Total Protein Albumin Lipase Ur Specific [place] Vancomycin Trough 05/18/21 05/18/21 05/18/21 11:16 12:50 16:29 WBC RBC Hgb MCV RDW Plt Count Lymph % (Auto) Lymph # (Auto) Seg Neutrophils % Seg Neuts % (Manual) Lymphocytes % (Manual) Seg Neutrophils # Man Lymphocytes # (Manual) PT INR ABG pH ABG pO2 ABG HCO3 ABG Base Excess ABG Hemoglobin Oxyhemoglobin Sodium Potassium 3.4 L D Chloride Carbon Dioxide 36 H BUN 19 H Creatinine 0.4 L Glucose 231 H POC Glucose 168 H 196 H Lactic Acid Calcium 7.5 L Phosphorus 1.80 L D Magnesium Total Bilirubin Direct Bilirubin AST ALT Alkaline Phosphatase Total Protein Albumin Lipase Ur Specific [place] Vancomycin Trough 05/19/21 05/19/21 05/19/21 00:05 04:08 05:07 WBC RBC Hgb MCV RDW Plt Count Lymph % (Auto) Lymph # (Auto) Seg Neutrophils % Seg Neuts % (Manual) Lymphocytes % (Manual) Seg Neutrophils # Man Lymphocytes # (Manual) PT INR ABG pH ABG pO2 ABG HCO3 ABG Base Excess ABG Hemoglobin Oxyhemoglobin Sodium 146 H Potassium Chloride Carbon Dioxide 35 H BUN 25 H Creatinine 0.4 L Glucose 218 H POC Glucose 164 H 203 H Lactic Acid Calcium 7.2 L Phosphorus Magnesium Total Bilirubin Direct Bilirubin AST ALT Alkaline Phosphatase Total Protein Albumin Lipase Ur Specific [place] Vancomycin Trough 05/19/21 05/19/21 05/19/21 12:16 14:14 17:11 WBC RBC Hgb MCV RDW Plt Count Lymph % (Auto) Lymph # (Auto) Seg Neutrophils % Seg Neuts % (Manual) Lymphocytes % (Manual) Seg Neutrophils # Man Lymphocytes # (Manual) PT INR ABG pH 7.482 H ABG pO2 111.7 H ABG HCO3 31.4 H ABG Base Excess 7.2 H ABG Hemoglobin 11.1 L Oxyhemoglobin Sodium Potassium Chloride Carbon Dioxide BUN Creatinine Glucose POC Glucose 206 H 194 H Lactic Acid Calcium Phosphorus Magnesium Total Bilirubin Direct Bilirubin AST ALT Alkaline Phosphatase Total Protein Albumin Lipase Ur Specific [place] Vancomycin Trough 05/20/21 05/20/21 05/20/21 00:01 04:30 06:09 WBC RBC Hgb MCV RDW Plt Count Lymph % (Auto) Lymph # (Auto) Seg Neutrophils % Seg Neuts % (Manual) Lymphocytes % (Manual) Seg Neutrophils # Man Lymphocytes # (Manual) PT INR ABG pH ABG pO2 ABG HCO3 ABG Base Excess ABG Hemoglobin Oxyhemoglobin Sodium Potassium 3.5 L Chloride Carbon Dioxide BUN 24 H Creatinine 0.3 L Glucose 254 H POC Glucose 209 H 210 H Lactic Acid Calcium 7.5 L Phosphorus 1.90 L D Magnesium Total Bilirubin 1.60 H Direct Bilirubin AST 201 H ALT 170 H Alkaline Phosphatase 169 H Total Protein 5.3 L Albumin 1.9 L Lipase Ur Specific [place] Vancomycin Trough 05/20/21 05/20/21 05/20/21 11:41 16:47 22:21 WBC RBC Hgb MCV RDW Plt Count Lymph % (Auto) Lymph # (Auto) Seg Neutrophils % Seg Neuts % (Manual) Lymphocytes % (Manual) Seg Neutrophils # Man Lymphocytes # (Manual) PT INR ABG pH ABG pO2 ABG HCO3 ABG Base Excess ABG Hemoglobin Oxyhemoglobin Sodium Potassium Chloride Carbon Dioxide BUN Creatinine Glucose POC Glucose 158 H 232 H 211 H Lactic Acid Calcium Phosphorus Magnesium Total Bilirubin Direct Bilirubin AST ALT Alkaline Phosphatase Total Protein Albumin Lipase Ur Specific [place] Vancomycin Trough 05/21/21 05/21/21 05/21/21 00:35 04:00 04:00 WBC RBC 3.28 L Hgb MCV RDW 18.7 H Plt Count 125 L Lymph % (Auto) Lymph # (Auto) Seg Neutrophils % Seg Neuts % (Manual) Lymphocytes % (Manual) Seg Neutrophils # Man Lymphocytes # (Manual) PT INR ABG pH ABG pO2 ABG HCO3 ABG Base Excess ABG Hemoglobin Oxyhemoglobin Sodium Potassium 5.1 H D Chloride 108.7 H Carbon Dioxide BUN 21 H Creatinine 0.2 L Glucose 242 H POC Glucose 230 H Lactic Acid Calcium 7.3 L Phosphorus Magnesium Total Bilirubin Direct Bilirubin AST ALT Alkaline Phosphatase Total Protein Albumin Lipase Ur Specific [place] Vancomycin Trough 05/21/21 05/21/21 05/21/21 05:08 11:47 17:43 WBC RBC Hgb MCV RDW Plt Count Lymph % (Auto) Lymph # (Auto) Seg Neutrophils % Seg Neuts % (Manual) Lymphocytes % (Manual) Seg Neutrophils # Man Lymphocytes # (Manual) PT INR ABG pH ABG pO2 ABG HCO3 ABG Base Excess ABG Hemoglobin Oxyhemoglobin Sodium Potassium Chloride Carbon Dioxide BUN Creatinine Glucose POC Glucose 196 H 139 H 147 H Lactic Acid Calcium Phosphorus Magnesium Total Bilirubin Direct Bilirubin AST ALT Alkaline Phosphatase Total Protein Albumin Lipase Ur Specific [place] Vancomycin Trough 05/21/21 05/21/21 05/22/21 17:57 23:32 04:16 WBC RBC Hgb MCV RDW Plt Count Lymph % (Auto) Lymph # (Auto) Seg Neutrophils % Seg Neuts % (Manual) Lymphocytes % (Manual) Seg Neutrophils # Man Lymphocytes # (Manual) PT INR ABG pH ABG pO2 ABG HCO3 ABG Base Excess ABG Hemoglobin Oxyhemoglobin Sodium Potassium 5.2 H Chloride Carbon Dioxide BUN 19 H Creatinine 0.2 L Glucose 154 H POC Glucose 218 H 185 H Lactic Acid Calcium 7.5 L Phosphorus Magnesium Total Bilirubin 3.00 H Direct Bilirubin 2.3 H AST 437 H ALT 462 H Alkaline Phosphatase 186 H Total Protein 5.5 L Albumin 1.9 L Lipase Ur Specific [place] Vancomycin Trough 05/22/21 05/22/21 05/22/21 04:30 04:30 04:30 WBC RBC Hgb MCV RDW Plt Count Lymph % (Auto) Lymph # (Auto) Seg Neutrophils % Seg Neuts % (Manual) Lymphocytes % (Manual) Seg Neutrophils # Man Lymphocytes # (Manual) PT 19.5 H INR 1.49 H ABG pH ABG pO2 ABG HCO3 ABG Base Excess ABG Hemoglobin Oxyhemoglobin Sodium 134 L Potassium Chloride Carbon Dioxide BUN 19 H Creatinine 0.2 L Glucose 208 H POC Glucose Lactic Acid Calcium 7.2 L Phosphorus 2.40 L D Magnesium Total Bilirubin 2.20 H Direct Bilirubin AST 350 H ALT 496 H Alkaline Phosphatase 167 H Total Protein 4.8 L Albumin 1.7 L Lipase Ur Specific [place] Vancomycin Trough 05/22/21 05/22/21 05/22/21 11:59 17:16 23:07 WBC RBC Hgb MCV RDW Plt Count Lymph % (Auto) Lymph # (Auto) Seg Neutrophils % Seg Neuts % (Manual) Lymphocytes % (Manual) Seg Neutrophils # Man Lymphocytes # (Manual) PT INR ABG pH ABG pO2 ABG HCO3 ABG Base Excess ABG Hemoglobin Oxyhemoglobin Sodium Potassium Chloride Carbon Dioxide BUN Creatinine Glucose POC Glucose 204 H 244 H 226 H Lactic Acid Calcium Phosphorus Magnesium Total Bilirubin Direct Bilirubin AST ALT Alkaline Phosphatase Total Protein Albumin Lipase Ur Specific [place] Vancomycin Trough 05/23/21 05/23/21 05/23/21 05:09 10:15 10:15 WBC RBC Hgb MCV RDW Plt Count Lymph % (Auto) Lymph # (Auto) Seg Neutrophils % Seg Neuts % (Manual) Lymphocytes % (Manual) Seg Neutrophils # Man Lymphocytes # (Manual) PT 16.9 H INR 1.24 H ABG pH ABG pO2 ABG HCO3 ABG Base Excess ABG Hemoglobin Oxyhemoglobin Sodium 131 L Potassium Chloride 97.5 L Carbon Dioxide BUN Creatinine < 0.2 L Glucose 248 H POC Glucose 175 H Lactic Acid Calcium 7.4 L Phosphorus Magnesium 1.60 L Total Bilirubin Direct Bilirubin AST ALT Alkaline Phosphatase Total Protein Albumin Lipase Ur Specific [place] Vancomycin Trough 05/23/21 05/23/21 05/24/21 10:15 21:46 04:16 WBC RBC Hgb MCV RDW Plt Count Lymph % (Auto) Lymph # (Auto) Seg Neutrophils % Seg Neuts % (Manual) Lymphocytes % (Manual) Seg Neutrophils # Man Lymphocytes # (Manual) PT INR ABG pH ABG pO2 ABG HCO3 ABG Base Excess ABG Hemoglobin Oxyhemoglobin Sodium 130 L Potassium 3.5 L Chloride 97.1 L Carbon Dioxide BUN Creatinine 0.2 L Glucose 235 H POC Glucose 190 H Lactic Acid Calcium 6.8 L Phosphorus Magnesium Total Bilirubin 2.30 H Direct Bilirubin 1.6 H AST 161 H ALT 396 H Alkaline Phosphatase 186 H Total Protein 4.7 L Albumin 2.0 L Lipase Ur Specific [place] Vancomycin Trough 05/24/21 05/25/21 05/25/21 05:32 04:25 04:25 WBC 11.7 H RBC 3.28 L Hgb MCV RDW 19.9 H Plt Count Lymph % (Auto) Lymph # (Auto) Seg Neutrophils % Seg Neuts % (Manual) Lymphocytes % (Manual) Seg Neutrophils # Man Lymphocytes # (Manual) PT INR ABG pH ABG pO2 ABG HCO3 ABG Base Excess ABG Hemoglobin Oxyhemoglobin Sodium 135 L Potassium 3.4 L Chloride Carbon Dioxide BUN Creatinine 0.2 L Glucose 105 H POC Glucose 208 H Lactic Acid Calcium 7.6 L Phosphorus Magnesium Total Bilirubin Direct Bilirubin AST ALT Alkaline Phosphatase Total Protein Albumin Lipase Ur Specific [place] Vancomycin Trough 05/26/21 05/26/21 05/26/21 11:37 16:57 20:59 WBC RBC Hgb MCV RDW Plt Count Lymph % (Auto) Lymph # (Auto) Seg Neutrophils % Seg Neuts % (Manual) Lymphocytes % (Manual) Seg Neutrophils # Man Lymphocytes # (Manual) PT INR ABG pH ABG pO2 ABG HCO3 ABG Base Excess ABG Hemoglobin Oxyhemoglobin Sodium Potassium Chloride Carbon Dioxide BUN Creatinine Glucose POC Glucose 136 H 214 H 137 H Lactic Acid Calcium Phosphorus Magnesium Total Bilirubin Direct Bilirubin AST ALT Alkaline Phosphatase Total Protein Albumin Lipase Ur Specific [place] Vancomycin Trough 05/26/21 05/27/21 05/27/21 23:52 05:40 16:49 WBC RBC Hgb MCV RDW Plt Count Lymph % (Auto) Lymph # (Auto) Seg Neutrophils % Seg Neuts % (Manual) Lymphocytes % (Manual) Seg Neutrophils # Man Lymphocytes # (Manual) PT INR ABG pH ABG pO2 ABG HCO3 ABG Base Excess ABG Hemoglobin Oxyhemoglobin Sodium Potassium Chloride Carbon Dioxide BUN Creatinine Glucose POC Glucose 111 H 144 H 213 H Lactic Acid Calcium Phosphorus Magnesium Total Bilirubin Direct Bilirubin AST ALT Alkaline Phosphatase Total Protein Albumin Lipase Ur Specific [place] Vancomycin Trough 05/27/21 05/27/21 05/28/21 21:07 23:57 11:59 WBC RBC Hgb MCV RDW Plt Count Lymph % (Auto) Lymph # (Auto) Seg Neutrophils % Seg Neuts % (Manual) Lymphocytes % (Manual) Seg Neutrophils # Man Lymphocytes # (Manual) PT INR ABG pH ABG pO2 ABG HCO3 ABG Base Excess ABG Hemoglobin Oxyhemoglobin Sodium Potassium Chloride Carbon Dioxide BUN Creatinine Glucose POC Glucose 135 H 157 H 130 H Lactic Acid Calcium Phosphorus Magnesium Total Bilirubin Direct Bilirubin AST ALT Alkaline Phosphatase Total Protein Albumin Lipase Ur Specific [place] Vancomycin Trough 05/28/21 17:05 WBC RBC Hgb MCV RDW Plt Count Lymph % (Auto) Lymph # (Auto) Seg Neutrophils % Seg Neuts % (Manual) Lymphocytes % (Manual) Seg Neutrophils # Man Lymphocytes # (Manual) PT INR ABG pH ABG pO2 ABG HCO3 ABG Base Excess ABG Hemoglobin Oxyhemoglobin Sodium Potassium Chloride Carbon Dioxide BUN Creatinine Glucose POC Glucose 207 H Lactic Acid Calcium Phosphorus Magnesium Total Bilirubin Direct Bilirubin AST ALT Alkaline Phosphatase Total Protein Albumin Lipase Ur Specific [place] Vancomycin Trough Allied health notes reviewed: nursing
[2021-05-28] MEDS: INSULIN GLARGINE 100 UNITS/ML SUB-Q SCH (21:05)
[2021-05-29] MEDS: INSULIN LISPRO 100 UNIT/ML SUB-Q SCH ×4 (01:05→18:34)
[2021-05-29] MEDS: HYDROmorphone 1 MG/1 ML INJ IV PRN ×5 (01:41→15:18)
[2021-05-29 05:41] LABS: Blood Urea Nitrogen 16 mg/dL (7-17); Calcium 7.7 mg/dL (8.4-10.2); Hemolysis Index 7
[2021-05-29 05:47] LABS: BUN/Creatinine Ratio 80
[2021-05-29] MEDS ORDERED: POTASSIUM CHLORIDE 20 MEQ PACKET FEEDTUBE ONE (06:00)
[2021-05-29] MEDS: ARFORMOTEROL 15 MCG/2 ML NEBU IH SCH ×2 (09:25→22:30)
[2021-05-29] MEDS: BUDESONIDE 0.5 MG/2 ML NEBU IH SCH ×2 (09:26→22:30)
[2021-05-29] MEDS: LANSOPRAZOLE 30 MG SOLUTAB FEEDTUBE SCH (10:05)
[2021-05-29] MEDS: DICYCLOMINE 10 MG CAP PO SCH ×4 (10:05→22:06)
[2021-05-29] MEDS: ENOXAPARIN 80 MG/0.8 ML INJ SUB-Q SCH ×2 (10:05→22:05)
[2021-05-29] MEDS: DEXAMETHASONE 2 MG TAB FEEDTUBE SCH (10:06)
--- NOTE | 2021-05-29 12:26 | Progress Note ---
Assessment and Plan Assessment and plan: This is a 51-year-old female with COPD, pancreatic cancer and radiation, s/p pancreatic stent placement, pulmonary fibrosis, hypertension and chronic respiratory failure on 2 L oxygen via nasal cannula who presented to emergency department on 05/11 with complaints of right upper quadrant pain which started approximately at 0200 with nausea and vomiting. Work-up in the emergency department included a CTA chest which showed no pulmonary embolism, mild fluid- filled esophagus and distended stomach with bilateral interstitial opacity in the chest, and CT abdomen/pelvis with contrast which showed persistent pancreatic carcinoma with indwelling metallic stent which is suspected to be occluded. Lab work revealed leukocytosis, transaminitis and lactic acidosis. Patient became hypotensive in the emergency department and required 3 L of IV fluid and was eventually started on vasopressors after placement of femoral central line. Patient was started on empiric antibiotics. Admitted to the hospitalist service with consults to GI and CCM for transaminitis, possible sepsis, and lactic acidosis. Acute on chronic hypoxic respiratory failure Septic shock Transaminitis Hyperbilirubinemia Pulmonary fibrosis/ILD Pancreatic cancer -CT abdomen/pelvis showed pancreatic cancer with metallic stent with possible occlusion, mild pelvic fluid and mild colonic thickening Thrombocytopenia 05/12: Patient remains on high-dose Levophed and vasopressin. Given 1 L LR bolus. GI would like an MRCP to be conducted which has been ordered. Patient cleared for sips of water. Added Tessalon due to severe cough. Potassium repleted. Covid PCR negative. 05/13: Remains on Levophed and vasopressin has been off since yesterday evening. Started on stress dose steroids. MRCP pending. Hypokalemia, hypomagnesemia and hypophosphatemia repleted. Liver enzymes trending down. Started on D5 normal saline yesterday. 05/14: Patient with worsen respiratory status this am, tachypneic with increased O2 requirement. On full support on the Bipap this am with worsening diffuse bilateral opacities on CXR, s/p X1 dose of IV lasix overnight. Patient remains afebrile with no leukocytosis. Will continue IV Lasix X3 doses, f/u CXR in the am. D/W CCM due to patient worsening respiratory status hold on MRCP for today. Patient is off Levophed this am, leave pressors on standby might need to be put back on low dose pressors with IV diuretic. Patient also noted with Rt. fem CVC which was inserted in the ED, most likely due to be change, unsuccessfult PICC by IVT today and patient is refusing Port access at this time. 05/15: Patient remains on continuous Bipap overnight, desat when bipap is removed for mouth care. Plan to wean Fio2 as tolerated for SPO2 goal above 90%. Febrile overnight, TMAX 101.4, on IV abx zosyn, repeat blood culture ordered. Low K and phosph repleted, repeat labs in the am. 05/16: Patient back on full support on the Bipap, still not tolerating FiO2 wean, patient desat in the 80s. D/w CCM plan to continue continuous bipap for now, patient going on over 4 days with no nutrition plan to initiate TPN tomorrow. D10w gtt added for hypoglycemia. Patient platelet continue to steadily drop, given patient's history with continue AC for now, H&H is stable, no s/s of any active bleeding. Electrolytes repleted, will continue to trend CBC, BMP, mg, and phos. MRCP canceled, plan to reorder once patient's respiratory status is more stable. 05/17: Patient remains on continuous Bipap. Patient remains on low dose Levophed, plan to wean off pressors as tolerated for a MAP above 65. Clinimix initiated overnight, plan to start TPN tonight. Hyperglycemic overnight, SSI was initiated. Low phos repleted, repeat lab in the am. 05/18: Down to 60% FIo2 on the Bipap, SPO2 above 97%. Off pressros this am, TPN is running. Patient is now hyperglycemic, SSI adjusted. Consider basal dose, lantus if hyperglycemia persist. This am labs noted, hyperkalemia and really high glucose noted totally different from normal trend, orders placed for redraw. 05/19: Overnight events noted. Started on PRN haldol for agitation. Patient placed on heated high Flow at 100%, 40L SPO2 at 100%. Continue to wean Fio2 as tolerated for SPO2 for SPO2 above 92%. Continue TPN for now. Patient still hyperglycemic basal dose lantus added Qhs. 05/20: Patient is tolerating HHFL NC, SPO2 above 95%. Continue HHFL NC during and Bipap at night. Still on TPN for nutrition, hyperglycemia persists- basal insulin increased. Low K and phosp was repleted, repeat lab in the am. 05/21: Patient unable to tolerate OptiFlow for more than couple hours and was placed back on BiPAP due to desaturation. Patient remains on TPN for nutrition which was held today due to hyperkalemia. P.m. BMP ordered but not collected. Patient refused to have port accessed and PICC line ordered. Down grading to [facility] status 05/21 abdominal ultrasound shows findings of emergency megaly and steatosis without other significant abnormality in the right upper quadrant. ST eval ordered and Ntr consult for cyclic TF. midline ordered 05/23/ Patient with acute on chronic resp failure, COPD, pancreatic cancer. She has been transferred to [facility]. She is on BIPAP Hypomag. Replace and recheck in am 05/24/21 Patient with acute on chronic resp failure. Still on BIPAP To start tube feeding 05/25/21 Patient with acute on chronic respiratory failure She desaturated down to Oxygen sat 85% today Will order CT Angio to r/o pulmonary embolism 05/26/21: patient remains on bipap, o2 sat in 90s. CT angio not completed yesterday as patient could not lay flat. Add dilaudid for improved pain control to patient medications and advised staff readiness officer to re-attempt CT angio. Patient has a poor prognosis given pulmonary fibrosis and pancreatic cancer. Will likely re- visit talks of palliaitive care as she may benefit more from this. 05/27/21: Remains bipap dependent. D/w patient regarding comfort care/hospice, she is interested. CM consulted. Patient would still like to remain full code 05/28/21: Remains bipap dependent. Spoke with Eriberto (daughter) who states that she is in agreement for comfort measures for her mother. Coordinating with case management for inpatient hospice referral. Daughter also requested to see her mother in person. Unfortunately due to visitation limitations as a result of the COVID-19 pandemic, daughter will only be able to communicate via telecommunication devices at this time. Care staff was notified the patient is [place]-speaking and to call the daughter if they would like to communicate with the patient. 05/29/2021: Spoke with Eriberto (daughter) who states that she is in agreement for comfort measures for her mother. Referral made to [facility]. Patient will discharge to inpatient hospice today. History Interval history: No new issues overnight Hospitalist Physical - Constitutional Vitals: Temp Pulse Resp BP Pulse Ox 98.9 F 113 H 18 106/75 93 05/29/21 08:00 05/29/21 09:00 05/29/21 09:00 05/29/21 09:00 05/29/21 09:00 General appearance: Present: no acute distress, obese, other (On BiPAP) - EENT Eyes: Present: PERRL, EOM intact ENT: hearing intact, clear oral mucosa, dentition normal - Neck Neck: Present: supple, normal ROM - Respiratory Respiratory effort: normal Respiratory: bilateral: CTA - Cardiovascular Rhythm: regular Heart Sounds: Present: S1 & S2. Absent: gallop, rub - Extremities Extremities: no ischemia, No edema, Full ROM - Abdominal General gastrointestinal: soft, non-tender, non-distended, normal bowel sounds - Integumentary Integumentary: Present: clear, warm, dry - Neurologic Neurologic: CNII-XII intact, moves all extremities Results - Labs CBC & Chem 7: 05/25/21 04:25 05/29/21 05:07 Labs: Laboratory Last Values WBC 11.7 K/mm3 (4.5-11.0) H 05/25/21 04:25 RBC 3.28 M/mm3 (3.65-5.03) L 05/25/21 04:25 Hgb 10.3 gm/dl (10.1-14.3) 05/25/21 04:25 Hct 31.6 % (30.3-42.9) 05/25/21 04:25 MCV 96 fl (79-97) 05/25/21 04:25 MCH 32 pg (28-32) 05/25/21 04:25 MCHC 33 % (30-34) 05/25/21 04:25 RDW 19.9 % (13.2-15.2) H 05/25/21 04:25 Plt Count 142 K/mm3 (140-440) 05/25/21 04:25 Lymph % (Auto) 7.4 % (13.4-35.0) L 05/15/21 04:45 [place] % (Auto) 6.7 % (0.0-7.3) 05/15/21 04:45 Eos % (Auto) 4.0 % (0.0-4.3) 05/15/21 04:45 Baso % (Auto) 0.7 % (0.0-1.8) 05/15/21 04:45 Lymph # (Auto) 0.6 K/mm3 (1.2-5.4) L 05/15/21 04:45 [place] # (Auto) 0.6 K/mm3 (0.0-0.8) 05/15/21 04:45 Eos # (Auto) 0.3 K/mm3 (0.0-0.4) 05/15/21 04:45 Baso # (Auto) 0.1 K/mm3 (0.0-0.1) 05/15/21 04:45 Add Manual Diff Complete 05/12/21 04:08 Total Counted 200 05/12/21 04:08 Seg Neutrophils % 81.2 % (40.0-70.0) H 05/15/21 04:45 Seg Neuts % (Manual) 85.5 % (40.0-70.0) H 05/12/21 04:08 Band Neutrophils % 8.5 % 05/12/21 04:08 Lymphocytes % (Manual) 2.0 % (13.4-35.0) L 05/12/21 04:08 Monocytes % (Manual) 3.0 % (0.0-7.3) 05/12/21 04:08 Eosinophils % (Manual) 1.0 % (0.0-4.3) 05/12/21 04:08 Nucleated RBC % Not Reportable 05/12/21 04:08 Seg Neutrophils # 6.7 K/mm3 (1.8-7.7) 05/15/21 04:45 Seg Neutrophils # Man 19.5 K/mm3 (1.8-7.7) H 05/12/21 04:08 Band Neutrophils # 1.9 K/mm3 05/12/21 04:08 Lymphocytes # (Manual) 0.5 K/mm3 (1.2-5.4) L 05/12/21 04:08 Abs React Lymphs (Man) 0.0 K/mm3 05/12/21 04:08 Monocytes # (Manual) 0.7 K/mm3 (0.0-0.8) 05/12/21 04:08 Eosinophils # (Manual) 0.2 K/mm3 (0.0-0.4) 05/12/21 04:08 Basophils # (Manual) 0.0 K/mm3 (0.0-0.1) 05/12/21 04:08 Metamyelocytes # 0.0 K/mm3 05/12/21 04:08 Myelocytes # 0.0 K/mm3 05/12/21 04:08 Promyelocytes # 0.0 K/mm3 05/12/21 04:08 Blast Cells # 0.0 K/mm3 05/12/21 04:08 WBC Morphology Not Reportable 05/12/21 04:08 Hypersegmented Neuts Not Reportable 05/12/21 04:08 Hyposegmented Neuts Not Reportable 05/12/21 04:08 Hypogranular Neuts Not Reportable 05/12/21 04:08 Smudge Cells Not Reportable 05/12/21 04:08 Toxic Granulation Not Reportable 05/12/21 04:08 Toxic Vacuolation Not Reportable 05/12/21 04:08 Dohle Bodies Not Reportable 05/12/21 04:08 Pelger-Huet Anomaly Not Reportable 05/12/21 04:08 Elizabeth Rods Not Reportable 05/12/21 04:08 Platelet Estimate Consistent w auto 05/12/21 04:08 Clumped Platelets Not Reportable 05/12/21 04:08 Plt Clumps, EDTA Not Reportable 05/12/21 04:08 Large Platelets Not Reportable 05/12/21 04:08 Giant Platelets Not Reportable 05/12/21 04:08 Platelet Satelliting Not Reportable 05/12/21 04:08 Plt Morphology Comment Not Reportable 05/12/21 04:08 RBC Morphology Not Reportable 05/12/21 04:08 Dimorphic RBCs Not Reportable 05/12/21 04:08 Polychromasia Not Reportable 05/12/21 04:08 Hypochromasia Not Reportable 05/12/21 04:08 Poikilocytosis Not Reportable 05/12/21 04:08 Anisocytosis 1+ 05/12/21 04:08 Microcytosis Not Reportable 05/12/21 04:08 Macrocytosis Not Reportable 05/12/21 04:08 Spherocytes Not Reportable 05/12/21 04:08 Pappenheimer Bodies Not Reportable 05/12/21 04:08 Sickle Cells Not Reportable 05/12/21 04:08 Target Cells Not Reportable 05/12/21 04:08 Tear Drop Cells Not Reportable 05/12/21 04:08 Ovalocytes Not Reportable 05/12/21 04:08 Helmet Cells Not Reportable 05/12/21 04:08 [place] Bodies Not Reportable 05/12/21 04:08 [place] Rings Not Reportable 05/12/21 04:08 [place] Cells Not Reportable 05/12/21 04:08 Bite Cells Not Reportable 05/12/21 04:08 Crenated Cell Not Reportable 05/12/21 04:08 Elliptocytes Not Reportable 05/12/21 04:08 Acanthocytes (Spur) Not Reportable 05/12/21 04:08 Rouleaux Not Reportable 05/12/21 04:08 Hemoglobin C Crystals Not Reportable 05/12/21 04:08 Schistocytes Not Reportable 05/12/21 04:08 Malaria parasites Not Reportable 05/12/21 04:08 [place]ir Bodies Not Reportable 05/12/21 04:08 Hem Pathologist Commnt No 05/12/21 04:08 PT 16.9 Sec. (12.2-14.9) H 05/23/21 10:15 INR 1.24 (0.87-1.13) H 05/23/21 10:15 ABG pH 7.482 pH Units (7.350-7.450) H 05/19/21 14:14 ABG pCO2 42.9 mm Hg 05/19/21 14:14 ABG pO2 111.7 mm Hg (80.0-90.0) H 05/19/21 14:14 ABG HCO3 31.4 mmol/L (20.0-26.0) H 05/19/21 14:14 ABG O2 Saturation 98.2 % (95.0-99.0) 05/19/21 14:14 ABG O2 Content 15.2 (0.0-44) 05/19/21 14:14 ABG Base Excess 7.2 mmol/L (-2.0-3.0) H 05/19/21 14:14 ABG Hemoglobin 11.1 gm/dl (12.0-16.0) L 05/19/21 14:14 ABG Carboxyhemoglobin 1.1 % (0.0-5.0) 05/19/21 14:14 ABG Methemoglobin 0.6 % (0.0-1.5) 05/19/21 14:14 Oxyhemoglobin 96.4 % (95.0-99.0) 05/19/21 14:14 FiO2 100 % 05/19/21 14:14 Sodium 148 mmol/L (137-145) H D 05/29/21 05:07 Potassium 3.0 mmol/L (3.6-5.0) L 05/29/21 05:07 Chloride 108.0 mmol/L (98-107) H 05/29/21 05:07 Carbon Dioxide 30 mmol/L (22-30) 05/29/21 05:07 Anion Gap 13 mmol/L 05/29/21 05:07 BUN 16 mg/dL (7-17) 05/29/21 05:07 Creatinine 0.2 mg/dL (0.6-1.2) L 05/29/21 05:07 Estimated GFR > 60 ml/min 05/29/21 05:07 BUN/Creatinine Ratio 80 % 05/29/21 05:07 Glucose 155 mg/dL (65-100) H 05/29/21 05:07 POC Glucose 119 mg/dL (70-105) H 05/29/21 11:30 Hemoglobin A1c 5.2 % (4-6) 05/12/21 04:08 Lactic Acid 3.30 mmol/L (0.7-2.0) H* 05/12/21 Unknown Calcium 7.7 mg/dL (8.4-10.2) L 05/29/21 05:07 Phosphorus 2.60 mg/dL (2.5-4.5) 05/24/21 04:16 Magnesium 2.00 mg/dL (1.7-2.3) 05/24/21 04:16 Total Bilirubin 2.30 mg/dL (0.1-1.2) H 05/23/21 10:15 Direct Bilirubin 1.6 mg/dL (0-0.2) H 05/23/21 10:15 Indirect Bilirubin 0.7 mg/dL 05/23/21 10:15 AST 161 units/L (5-40) H 05/23/21 10:15 ALT 396 units/L (7-56) H 05/23/21 10:15 Alkaline Phosphatase 186 units/L (35-129) H 05/23/21 10:15 Total Protein 4.7 g/dL (6.3-8.2) L 05/23/21 10:15 Albumin 2.0 g/dL (3.9-5) L 05/23/21 10:15 Albumin/Globulin Ratio 0.7 % 05/23/21 10:15 Triglycerides 90 mg/dL (2-149) 05/23/21 10:15 Lipase 3 units/L (13-60) L 05/11/21 05:43 Urine Color [place] (Yellow) 05/11/21 11:18 Urine Turbidity Clear (Clear) 05/11/21 11:18 Urine pH 6.0 (5.0-7.0) 05/11/21 11:18 Ur Specific [place] 1.035 (1.003-1.030) H 05/11/21 11:18 Urine Protein 100 mg/dl mg/dL (Negative) 05/11/21 11:18 Urine Glucose (UA) Neg mg/dL (Negative) 05/11/21 11:18 Urine Ketones Neg mg/dL (Negative) 05/11/21 11:18 Urine Blood Neg (Negative) 05/11/21 11:18 Urine Nitrite Neg (Negative) 05/11/21 11:18 Urine Bilirubin Neg (Negative) 05/11/21 11:18 Urine Urobilinogen < 2.0 mg/dL (<2.0) 05/11/21 11:18 Ur Leukocyte Esterase Neg (Negative) 05/11/21 11:18 Urine WBC (Auto) 2.0 /HPF (0.0-6.0) 05/11/21 11:18 Urine RBC (Auto) 1.0 /HPF (0.0-6.0) 05/11/21 11:18 Urine Mucus Few /HPF 05/11/21 11:18 Vancomycin Trough 25.3 ug/mL (5.0-20.0) H 05/14/21 15:20 Coronavirus (PCR) Negative (Negative) 05/12/21 10:16 Hepatitis A IgM Ab Non-reactive (NonReactive) 05/12/21 12:30 Hep Bs Antigen Nonreactive (Negative) 05/12/21 12:30 Hep B Core IgM Ab Non-reactive (NonReactive) 05/12/21 12:30 Hepatitis C Antibody Non-reactive (NonReactive) 05/12/21 12:30 Rivas/IV: Voiding Method Indwelling Catheter Active Medications - Current Medications Current Medications: Generic Name Dose Route Start Last Admin Trade Name Freq PRN Reason Stop Dose Admin Acetaminophen 650 mg 05/11/21 21:40 05/14/21 20:06 Acetaminophen 325 Mg Tab PO 650 mg Q4H PRN Administration Pain MILD(1-3)/Fever >100.5/WOODS Alprazolam 1 mg 05/28/21 09:53 05/28/21 20:40 Alprazolam 1 Mg Tab PO 1 mg Q8H PRN Administration Anxiety Lipase/Protease/Amylase 1 each 05/22/21 16:30 Lipase 10,500/Protease 25,000/Amylase 43,750 (Units) Dr Baker FEEDTUBE PRN PRN For Clogged Feeding Tube Arformoterol Tartrate 15 mcg 05/12/21 08:00 05/28/21 22:10 Arformoterol 15 Mcg/2 Ml Nebu IH Not Given Q12HRT ABRAHAN Benzonatate 100 mg 05/12/21 15:53 05/23/21 22:02 Benzonatate 100 Mg Cap PO 100 mg Q8HR PRN Administration Cough Budesonide 0.5 mg 05/12/21 08:00 05/28/21 20:10 Budesonide 0.5 Mg/2 Ml Nebu IH Not Given Q12HRT ABRAHAN Dexamethasone 6 mg 05/28/21 10:00 05/29/21 10:06 Dexamethasone 2 Mg Tab FEEDTUBE 6 mg Q24HR ABRAHAN Administration Dextrose 50 ml 05/12/21 11:57 05/16/21 08:30 Dextrose 50% In Water (25gm) 50 Ml Syringe IV 20 ml Q30MIN PRN Administration Hypoglycemia Protocol Dicyclomine HCl 10 mg 05/23/21 14:00 05/29/21 10:05 Dicyclomine 10 Mg Cap PO 10 mg QID ABRAHAN Administration Enoxaparin Sodium 80 mg 05/25/21 12:00 05/29/21 10:05 Enoxaparin 80 Mg/0.8 Ml Inj SUB-Q 80 mg Q12HR ABRAHAN Administration Protocol Haloperidol Lactate 5 mg 05/19/21 15:00 05/28/21 03:05 Haloperidol Lactate 5 Mg/1 Ml Inj IV 5 mg Q8H PRN Administration Agitation Hydromorphone HCl 0.5 mg 05/26/21 14:58 05/29/21 12:04 Hydromorphone 1 Mg/1 Ml Inj IV 0.5 mg Q3H PRN Administration Pain , Severe (7-10) Insulin Glargine 20 units 05/22/21 22:00 05/28/21 21:05 Insulin Glargine 100 Units/Ml SUB-Q Not Given QHS [facility] Insulin Human Lispro 0 unit 05/17/21 12:00 05/29/21 05:51 Insulin Lispro 100 Unit/Ml SUB-Q Not Given Q6HR [facility] Protocol Lansoprazole 30 mg 05/28/21 10:00 05/29/21 10:05 Lansoprazole 30 Mg Solutab FEEDTUBE 30 mg QDAY ABRAHAN Administration Metoclopramide HCl 10 mg 05/11/21 21:40 Metoclopramide 10 Mg/2 Ml Inj IV Q6H PRN Nausea And Vomiting Morphine Sulfate 2 mg 05/11/21 21:40 05/26/21 09:42 Morphine 2 Mg/1 Ml Inj IV 2 mg Q4H PRN Administration Pain, Moderate (4-6) Ondansetron HCl 4 mg 05/11/21 21:40 05/15/21 09:57 Ondansetron 4 Mg/2 Ml Inj IV 4 mg Q8H PRN Administration Nausea And Vomiting Simple Syrup 15 ml 05/22/21 16:30 Simple Syrup 15 Ml FEEDTUBE PRN PRN Hypoglycemia Simple Syrup 30 ml 05/22/21 16:30 Simple Syrup 15 Ml FEEDTUBE PRN PRN Hypoglycemia Sodium Bicarbonate 325 mg 05/22/21 16:30 Sodium Bicarbonate 325 Mg Tab FEEDTUBE PRN PRN For Clogged Feeding Tube Sodium Chloride 10 ml 05/11/21 22:00 05/29/21 10:07 Sodium Chloride 0.9% 10 Ml Flush Syringe IV 10 ml BID ABRAHAN Administration Sodium Chloride 10 ml 05/11/21 21:40 05/23/21 21:00 Sodium Chloride 0.9% 10 Ml Flush Syringe IV 10 ml PRN PRN Administration LINE FLUSH Nutrition/Malnutrition Assess - Dietary Evaluation Nutrition/Malnutrition Findings: Nutrition Notes Start: 05/13/21 09:47 Freq: Status: Active Protocol: Document 05/28/21 12:38 MARITZA (Rec: 05/28/21 12:48 MARITZA [id number]) Nutrition Notes Initial or Follow up Reassessment Current Diagnosis COPD,Respiratory Failure Other Pertinent Diagnosis Pancreatic CA, pulmonary fibrosis Current Diet TF - Vital AF 1.2 at 42ml/hr Labs/Tests Reviewed Pertinent Medications Decadron Height 5 ft 2 in Weight 64.4 kg [place] Body Weight (kg) 50.00 BMI 25.9 Weight change and time frame Current wt obtained from bed scale Weight Status Appropriate Subjective/Other Information Pt transferred to [facility] on . She remains dependent on BiPap. Per [employer] eval on 05/23, pt safe for a pureed diet, however, tends to desaturate when off the BiPap. TF infusing at goal rate at time of visit (12:35). Pt tolerating TF. Percent of energy/protein needs met: 84% energy 100% pro Burn Absent Trauma Absent #2 Nutrition Diagnosis Malnutrition Diagnosis Progress(for reassessment Continues documentation) #1 Nutrition Diagnosis Altered GI function As Evidenced by Signs and Symptoms pt tolerating EN support Diagnosis Progress(for reassessment Resolved documentation) Is patient on ventilator? No Is Patient Ambulatory and/or Out of Bed No REE-([facility]-confined to bed) 1447.020 Calculation Used for Recommendations [facility] Additional Notes Pro needs 1-1.2g/k-77g/ day Fluid needs 1ml/kcal Nutrition Intervention Nutrition Support: Change TF formula to Glucerna 1.2 at 50ml/hr Kcal 1,440 Protein (gm) 72 Carbohydrates (gm) 137 Fat (gm) 72 Fluid (mL) 966 Fiber (gm) 19 Goal #1 TF tolerance Goal #2 TF to meet at least 75% energy and pro needs Follow-Up By: 06/01/21 Additional Comments F/U: TF formula change and tolerance, resp status
--- NOTE | 2021-05-29 12:32 | Discharge Summary ---
Providers - Providers Date of Admission: 05/11/21 14:35 Date of discharge: 05/29/21 Attending physician: STEVE CASTILLO 05/11/21 21:40 Consult to Physician [CONS] Routine Comment: Consulting Provider: TAD TADEO Physician Instructions: Reason For Exam: Sepsis 05/12/21 07:42 Consult to Physician [CONS] Routine Comment: Consulting Provider: LAZ GARRIDO Physician Instructions: Reason For Exam: Transaminitis 05/12/21 09:52 Consult to Physician [CONS] Routine Comment: Patient follows with [facility] Consulting Provider: ROSE KOO Physician Instructions: Reason For Exam: Hypotensive, Pulm Fibrosis 05/14/21 13:09 Consult to PICC Line RN [CONS] Routine Reason For Exam: On pressors Type Line:: PICC 05/16/21 13:29 Consult to Dietitian/Nutrition [CONS] Routine Physician Instructions: Reason For Exam: Reason for Consult: Write/Manage TPN/PPN 05/21/21 14:54 Consult to PICC Line RN [CONS] Routine Reason For Exam: TPN/ refusal to access port Type Line:: PICC 05/22/21 14:38 Consult to Dietitian/Nutrition [CONS] Routine Physician Instructions: Reason For Exam: Daytime feeding please. Thanks Reason for Consult: Write/Manage Tube Feeding 05/22/21 16:33 Speech Therapy Evaluation and Treat [CONS] Stat Reason For Exam: Swallow Screen 05/22/21 16:46 Midline [Consult to PICC Line RN] [CONS] Routine Reason For Exam: Midline Insertion Type Line:: Midline 05/27/21 15:28 Consult to Case Management [CONS] Routine Services Needed at Discharge: Other Comment:: HOSPICE PALLIATIVE CARE. Primary care physician: [employer] PERSON Hospitalization Reason for admission: resp failure Condition: Serious Hospital course: This is a 51-year-old female with COPD, pancreatic cancer and radiation, s/p pancreatic stent placement, pulmonary fibrosis, hypertension and chronic respiratory failure on 2 L oxygen via nasal cannula who presented to emergency department on 05/11 with complaints of right upper quadrant pain which started approximately at 0200 with nausea and vomiting. Work-up in the emergency department included a CTA chest which showed no pulmonary embolism, mild fluid- filled esophagus and distended stomach with bilateral interstitial opacity in the chest, and CT abdomen/pelvis with contrast which showed persistent pancreatic carcinoma with indwelling metallic stent which is suspected to be occluded. Lab work revealed leukocytosis, transaminitis and lactic acidosis. Patient became hypotensive in the emergency department and required 3 L of IV fl uid and was eventually started on vasopressors after placement of femoral central line. Patient was started on empiric antibiotics. Admitted to the hospitalist service with consults to GI and [facility] for transaminitis, possible sepsis, and lactic acidosis. Acute on chronic hypoxic respiratory failure Septic shock Transaminitis Hyperbilirubinemia Pulmonary fibrosis/ILD Pancreatic cancer -CT abdomen/pelvis showed pancreatic cancer with metallic stent with possible occlusion, mild pelvic fluid and mild colonic thickening Thrombocytopenia 05/12: Patient remains on high-dose Levophed and vasopressin. Given 1 L LR bolus. GI would like an MRCP to be conducted which has been ordered. Patient cleared for sips of water. Added Tessalon due to severe cough. Potassium repleted. Covid PCR negative. 05/13: Remains on Levophed and vasopressin has been off since yesterday evening. Started on stress dose steroids. MRCP pending. Hypokalemia, hypomagnesemia and hypophosphatemia repleted. Liver enzymes trending down. Started on D5 normal saline yesterday. 05/14: Patient with worsen respiratory status this am, tachypneic with increased O2 requirement. On full support on the Bipap this am with worsening diffuse bilateral opacities on CXR, s/p X1 dose of IV lasix overnight. Patient remains afebrile with no leukocytosis. Will continue IV Lasix X3 doses, f/u CXR in the am. D/W CCM due to patient worsening respiratory status hold on MRCP for today. Patient is off Levophed this am, leave pressors on standby might need to be put back on low dose pressors with IV diuretic. Patient also noted with Rt. fem CVC which was inserted in the ED, most likely due to be change, unsuccessfult PICC by IVT today and patient is refusing Port access at this time. 05/15: Patient remains on continuous Bipap overnight, desat when bipap is removed for mouth care. Plan to wean Fio2 as tolerated for SPO2 goal above 90%. Febrile overnight, TMAX 101.4, on IV abx zosyn, repeat blood culture ordered. Low K and phosph repleted, repeat labs in the am. 05/16: Patient back on full support on the Bipap, still not tolerating FiO2 wean, patient desat in the 80s. D/w CCM plan to continue continuous bipap for now, patient going on over 4 days with no nutrition plan to initiate TPN tomorrow. D10w gtt added for hypoglycemia. Patient platelet continue to steadily drop, given patient's history with continue AC for now, H&H is stable, no s/s of any active bleeding. Electrolytes repleted, will continue to trend CBC, BMP, mg, and phos. MRCP canceled, plan to reorder once patient's respiratory status is more stable. 05/17: Patient remains on continuous Bipap. Patient remains on low dose Levophed, plan to wean off pressors as tolerated for a MAP above 65. Clinimix initiated overnight, plan to start TPN tonight. Hyperglycemic overnight, SSI was initiated. Low phos repleted, repeat lab in the am. 05/18: Down to 60% FIo2 on the Bipap, SPO2 above 97%. Off pressros this am, TPN is running. Patient is now hyperglycemic, SSI adjusted. Consider basal dose, lantus if hyperglycemia persist. This am labs noted, hyperkalemia and really high glucose noted totally different from normal trend, orders placed for redraw. 05/19: Overnight events noted. Started on PRN haldol for agitation. Patient placed on heated high Flow at 100%, 40L SPO2 at 100%. Continue to wean Fio2 as tolerated for SPO2 for SPO2 above 92%. Continue TPN for now. Patient still hyperglycemic basal dose lantus added Qhs. 05/20: Patient is tolerating HHFL NC, SPO2 above 95%. Continue HHFL NC during and Bipap at night. Still on TPN for nutrition, hyperglycemia persists- basal insulin increased. Low K and phosp was repleted, repeat lab in the am. 05/21: Patient unable to tolerate OptiFlow for more than couple hours and was placed back on BiPAP due to desaturation. Patient remains on TPN for nutrition which was held today due to hyperkalemia. P.m. BMP ordered but not collected. Patient refused to have port accessed and PICC line ordered. Down grading to IMCU status 05/21 abdominal ultrasound shows findings of emergency megaly and steatosis without other significant abnormality in the right upper quadrant. ST eval order ed and Ntr consult for cyclic TF. midline ordered 05/23/ Patient with acute on chronic resp failure, COPD, pancreatic cancer. She has been transferred to [facility]. She is on BIPAP Hypomag. Replace and recheck in am 05/24/21 Patient with acute on chronic resp failure. Still on BIPAP To start tube feeding 05/25/21 Patient with acute on chronic respiratory failure She desaturated down to Oxygen sat 85% today Will order CT Angio to r/o pulmonary embolism 05/26/21: patient remains on bipap, o2 sat in 90s. CT angio not completed yesterday as patient could not lay flat. Add dilaudid for improved pain control to patient medications and advised staff auditor to re-attempt CT angio. Patient has a poor prognosis given pulmonary fibrosis and pancreatic cancer. Will likely re- visit talks of palliaitive care as she may benefit more from this. 05/27/21: Remains bipap dependent. D/w patient regarding comfort care/hospice, she is interested. CM consulted. Patient would still like to remain full code 05/28/21: Remains bipap dependent. Spoke with Eriberto (daughter) who states that she is in agreement for comfort measures for her mother. Coordinating with case management for inpatient hospice referral. Daughter also requested to see her mother in person. Unfortunately due to visitation limitations as a result of the COVID-19 pandemic, daughter will only be able to communicate via telecommunication devices at this time. Care staff was notified the patient is Haitian-speaking and to call the daughter if they would like to communicate with the patient. 05/29/2021: Spoke with Eribetro (daughter) who states that she is in agreement for comfort measures for her mother. Referral made to [facility]. Patient will discharge to inpatient hospice today. Dedicated discharge time 35 minutes. Disposition: [facility] HOSPICE[facility]MEDICAL FACILITY Final Discharge Diagnosis (Prints w/discharge instructions): Acute on chronic hypoxic respiratory failure, septic shock, transaminitis, hyperbilirubinemia, pancreatic cancer, pulmonary fibrosis/ILD, thrombocytopenia Core Measure Documentation - Palliative Care Palliative Care/ Comfort Measures: Not Applicable - Core Measures Any of the following diagnoses?: none Exam - Constitutional Vitals: Temp Pulse Resp BP Pulse Ox 98.9 F 113 H 18 106/75 93 05/29/21 08:00 05/29/21 09:00 05/29/21 09:00 05/29/21 09:00 05/29/21 09:00 General appearance: Present: no acute distress, well-nourished - EENT Eyes: Present: PERRL ENT: hearing intact, clear oral mucosa - Neck Neck: Present: supple, normal ROM - Respiratory Respiratory effort: normal Respiratory: bilateral: CTA - Cardiovascular Heart Sounds: Present: S1 & S2. Absent: rub, click - Extremities Extremities: pulses symmetrical, No edema Peripheral Pulses: within normal limits - Abdominal General gastrointestinal: Present: soft, non-tender, non-distended, normal bowel sounds Female genitourinary: Present: normal - Integumentary Integumentary: Present: clear, warm, dry - Musculoskeletal Musculoskeletal: gait normal, strength equal bilaterally - Psychiatric Psychiatric: appropriate mood/affect, intact judgment & insight - Neurologic Neurologic: CNII-XII intact, moves all extremities Plan Activity: advance as tolerated Weight Bearing Status: Weight Bear as Tolerated Diet: regular
[2021-05-29] MEDS: ALPRAZolam 1 MG TAB PO PRN (13:38)
--- NOTE | 2021-05-29 22:02 | Progress Note ---
Assessment and Plan 51-year-old female with history of COPD, Hypertension and pancreatic cancer comes in for right upper quadrant pain since 2 AM. Pain is about 10 on a scale of 1-10. Also associated with nausea and vomiting. Patient is on radiation therapy for pancreatic cancer. Patient also has a history of pulmonary fibrosis and is on 2 L nasal cannula oxygen. Vomited about 3-4 times. No fever or chills. No aggravating or relieving factors. No exposure to coronavirus. Patient has history of smoking. Not smoking. Denies alcohol or drug abuse. Patient is awake and weak. Patient is on BIPAP 15/10, rate 18, FIO2 100%. O2 saturation 100% . Mild increase in work of breathing. Patient afebrile. Has mild leukocytosis. Blood pressure 120/70, pulse 105, respirations 26. Chest xray done 05/13/21 reported No acute change since 03/19/2019. Interstitial lung disease or early pulmonary fibrosis is suspected and unchanged. Patient has angio CT of chest done on 05/11/[address] evidence for pulmonary embolism. Bilateral interstitial opacity remains with overall mild worsening Mild fluid-filled esophagus. The stomach is also distended with fluid. Chest xray done 05/24/21 reported Feeding tube courses beneath the diaphragm with tip not visualized. Improving airspace disease. Patient is on Budesonide/Brovanna aerosol treatments, Decadron, S/C Lovenox in therapeutic dose, Prevacid, I spent critical care time of 35 minutes, obtaining history, review the chart, Examine the patient, review labs and chest xray, Ct scan of chest, talking to the nursing staff and work up plan of treatment. - Patient Problems (1) Hypotension Current Visit: Yes Status: Acute Plan to address problem: Patients blood pressure improved. Patient is off Norepinephrine and vasopressin. (2) Sepsis Current Visit: Yes Status: Acute Plan to address problem: Patient was on cefepime and vancomycin. (3) Pancreatic cancer Current Visit: Yes Status: Chronic Qualifiers: Pancreatic malignancy location: body of pancreas Qualified Code(s): C25.1 - Malignant neoplasm of body of pancreas Plan to address problem: Management as per primary care and oncology. (4) Asthma exacerbation Current Visit: No Status: Acute Plan to address problem: Patient is on Brovanna/Budesonide aerosol treatments. Patient is on Decadron. S/C Lovenox Prevacid. (5) Bilateral pneumonia Current Visit: No Status: Acute Plan to address problem: Patient was on Cefepime and vancomycin. (6) Interstitial lung disease Current Visit: No Status: Acute Plan to address problem: Recommend TED, rheumatoid factor, CANCA, BRIGHT levels. PFTs as out patient. (7) HTN (hypertension) Current Visit: No Status: Chronic Qualifiers: Hypertension type: essential hypertension Plan to address problem: Management as per primary care. Subjective Date of service: 05/29/21 Principal diagnosis: Septic shock; Pulm fibrosis; Hypoxemic resp failure; COVID- 19 infxn Interval history: 51-year-old female with history of COPD, Hypertension and pancreatic cancer comes in for right upper quadrant pain since 2 AM. Pain is about 10 on a scale of 1-10. Also associated with nausea and vomiting. Patient is on radiation therapy for pancreatic cancer. Patient also has a history of pulmonary fibrosis and is on 2 L nasal cannula oxygen. Vomited about 3-4 times. No fever or chills. No aggravating or relieving factors. No exposure to coronavirus. Patient has history of smoking. Not smoking. Denies alcohol or drug abuse. Patient is awake and weak. Patient is on BIPAP 15/10, rate 18, FIO2 100%. O2 saturation 100% . Mild increase in work of breathing. Patient afebrile. Has mild leukocytosis. Blood pressure 120/70, pulse 105, respirations 26. Chest xray done 05/13/21 reported No acute change since 03/19/2019. Interstitial lung disease or early pulmonary fibrosis is suspected and unchanged. Patient has angio CT of chest done on 05/11/[address] evidence for pulmonary embolism. Bilateral interstitial opacity remains with overall mild worsening Mild fluid-filled esophagus. The stomach is also distended with fluid. Chest xray done 05/24/21 reported Feeding tube courses beneath the diaphragm w ith tip not visualized. Improving airspace disease. Patient is on Budesonide/Brovanna aerosol treatments, Decadron, S/C Lovenox in therapeutic dose, Prevacid, Objective Vital Signs - 12hr 05/29/21 05/29/21 05/29/21 10:31 11:01 11:31 Temperature Pulse Rate 128 H 123 H 120 H Pulse Rate [ From Monitor] Respiratory 25 H 27 H 24 Rate Blood Pressure 101/68 101/71 101/71 O2 Sat by Pulse 90 91 91 Oximetry 05/29/21 05/29/21 05/29/21 12:00 12:31 13:00 Temperature 99.1 F Pulse Rate 117 H 109 H 110 H Pulse Rate [ 88 From Monitor] Respiratory 25 H 13 14 Rate Blood Pressure 108/76 108/76 98/73 O2 Sat by Pulse 93 97 96 Oximetry 05/29/21 05/29/21 05/29/21 13:31 14:00 14:31 Temperature Pulse Rate 115 H 108 H 110 H Pulse Rate [ From Monitor] Respiratory 22 15 17 Rate Blood Pressure 98/73 97/74 97/74 O2 Sat by Pulse 97 96 96 Oximetry 05/29/21 05/29/21 05/29/21 15:00 15:31 16:00 Temperature 99.4 F Pulse Rate 113 H 106 H 107 H Pulse Rate [ 107 H From Monitor] Respiratory 26 H 23 21 Rate Blood Pressure 114/86 114/86 100/74 O2 Sat by Pulse 95 88 87 Oximetry 05/29/21 05/29/21 05/29/21 16:31 17:00 17:30 Temperature Pulse Rate 103 H 103 H 99 H Pulse Rate [ From Monitor] Respiratory 21 19 27 H Rate Blood Pressure 100/74 119/91 115/82 O2 Sat by Pulse 90 92 98 Oximetry 05/29/21 05/29/21 05/29/21 17:31 18:00 18:31 Temperature Pulse Rate 102 H 109 H 99 H Pulse Rate [ From Monitor] Respiratory 26 H 18 27 H Rate Blood Pressure 119/91 115/82 115/82 O2 Sat by Pulse 92 88 98 Oximetry 05/29/21 05/29/21 05/29/21 19:00 19:31 20:00 Temperature Pulse Rate 101 H 108 H 110 H Pulse Rate [ From Monitor] Respiratory 28 H 19 28 H Rate Blood Pressure 107/74 107/74 118/79 O2 Sat by Pulse 98 98 94 Oximetry 05/29/21 05/29/21 05/29/21 20:31 21:00 21:31 Temperature Pulse Rate 113 H 108 H 107 H Pulse Rate [ From Monitor] Respiratory 30 H 23 25 H Rate Blood Pressure 118/79 105/72 105/72 O2 Sat by Pulse 98 99 100 Oximetry Constitutional: alert, appears uncomfortable, other (mildly increased respiratory effort at rest ) Eyes: non-icteric ENT: oropharynx moist Neck: supple, no lymphadenopathy, no JVD Effort: mildly labored Ascultation: Bilateral: diminished breath sounds, rales (posterior bases) Percussion: Bilateral: not dull Cardiovascular: regular rate and rhythm, other (S1,S2) Gastrointestinal: normoactive bowel sounds, hypoactive bowel sounds, soft, non- distended (protuberant) Integumentary: normal Extremities: no cyanosis, no edema, pulses normal, other (right femoral CVL) Neurologic: normal mental status, non-focal exam, pupils equal and round, other (somnolent) Psychiatric: mood appropriate, affect normal, other (somnolenet) CBC and BMP: 05/25/21 04:25 05/29/21 05:07 ABG, PT/INR, D-dimer: ABG ABG pH 7.482 pH Units (7.350-7.450) H 05/19/21 14:14 ABG pCO2 42.9 mm Hg 05/19/21 14:14 ABG pO2 111.7 mm Hg (80.0-90.0) H 05/19/21 14:14 ABG O2 Saturation 98.2 % (95.0-99.0) 05/19/21 14:14 PT/INR, D-dimer PT 16.9 Sec. (12.2-14.9) H 05/23/21 10:15 INR 1.24 (0.87-1.13) H 05/23/21 10:15 Abnormal lab findings: Abnormal Labs 05/11/21 05/11/21 05/11/21 05:43 05:43 05:43 WBC RBC Hgb MCV 98 H RDW 17.7 H Plt Count Lymph % (Auto) 10.8 L Lymph # (Auto) 0.6 L Seg Neutrophils % 84.1 H Seg Neuts % (Manual) Lymphocytes % (Manual) Seg Neutrophils # Man Lymphocytes # (Manual) PT 16.0 H INR 1.16 H ABG pH ABG pO2 ABG HCO3 ABG Base Excess ABG Hemoglobin Oxyhemoglobin Sodium Potassium Chloride Carbon Dioxide 21 L BUN 4 L Creatinine 0.4 L Glucose POC Glucose Lactic Acid Calcium 8.3 L Phosphorus Magnesium Total Bilirubin 2.10 H Direct Bilirubin 1.4 H AST 335 H ALT 57 H Alkaline Phosphatase 339 H Total Protein Albumin 2.4 L Lipase 3 L Ur Specific [place] Vancomycin Trough Coronavirus (PCR) 05/11/21 05/11/21 05/12/21 11:18 12:28 04:08 WBC RBC Hgb MCV RDW Plt Count Lymph % (Auto) Lymph # (Auto) Seg Neutrophils % Seg Neuts % (Manual) Lymphocytes % (Manual) Seg Neutrophils # Man Lymphocytes # (Manual) PT INR ABG pH ABG pO2 ABG HCO3 ABG Base Excess ABG Hemoglobin Oxyhemoglobin Sodium Potassium Chloride Carbon Dioxide BUN Creatinine Glucose POC Glucose Lactic Acid 4.20 H* 4.50 H* Calcium Phosphorus Magnesium Total Bilirubin Direct Bilirubin AST ALT Alkaline Phosphatase Total Protein Albumin Lipase Ur Specific [place] 1.035 H Vancomycin Trough Coronavirus (PCR) 05/12/21 05/12/21 05/12/21 04:08 04:08 09:47 WBC 22.8 H RBC 3.39 L Hgb MCV 98 H RDW 17.7 H Plt Count Lymph % (Auto) Lymph # (Auto) Seg Neutrophils % Seg Neuts % (Manual) 85.5 H Lymphocytes % (Manual) 2.0 L Seg Neutrophils # Man 19.5 H Lymphocytes # (Manual) 0.5 L PT INR ABG pH ABG pO2 ABG HCO3 ABG Base Excess ABG Hemoglobin Oxyhemoglobin Sodium Potassium 3.3 L Chloride 108.9 H Carbon Dioxide 17 L BUN 4 L Creatinine 0.5 L Glucose 106 H POC Glucose Lactic Acid 2.60 H* Calcium 6.4 L D Phosphorus Magnesium Total Bilirubin 2.10 H Direct Bilirubin AST 156 H ALT 61 H Alkaline Phosphatase 317 H Total Protein 5.4 L D Albumin 1.8 L Lipase Ur Specific [place] Vancomycin Trough Coronavirus (PCR) 05/12/21 05/12/21 05/12/21 11:47 12:30 12:36 WBC RBC Hgb MCV RDW Plt Count Lymph % (Auto) Lymph # (Auto) Seg Neutrophils % Seg Neuts % (Manual) Lymphocytes % (Manual) Seg Neutrophils # Man Lymphocytes # (Manual) PT INR ABG pH ABG pO2 ABG HCO3 ABG Base Excess ABG Hemoglobin Oxyhemoglobin Sodium Potassium Chloride Carbon Dioxide BUN Creatinine Glucose POC Glucose 59 L 120 H Lactic Acid 2.50 H* Calcium Phosphorus Magnesium Total Bilirubin Direct Bilirubin AST ALT Alkaline Phosphatase Total Protein Albumin Lipase Ur Specific [place] Vancomycin Trough Coronavirus (PCR) 05/12/21 05/12/21 05/13/21 23:45 Unknown 04:00 WBC 19.8 H RBC 3.52 L Hgb MCV 98 H RDW 18.5 H Plt Count Lymph % (Auto) Lymph # (Auto) Seg Neutrophils % Seg Neuts % (Manual) Lymphocytes % (Manual) Seg Neutrophils # Man Lymphocytes # (Manual) PT INR ABG pH ABG pO2 ABG HCO3 ABG Base Excess ABG Hemoglobin Oxyhemoglobin Sodium Potassium Chloride Carbon Dioxide BUN Creatinine Glucose POC Glucose 119 H Lactic Acid 3.30 H* Calcium Phosphorus Magnesium Total Bilirubin Direct Bilirubin AST ALT Alkaline Phosphatase Total Protein Albumin Lipase Ur Specific [place] Vancomycin Trough Coronavirus (PCR) 05/13/21 05/13/21 05/13/21 04:00 05:42 12:19 WBC RBC Hgb MCV RDW Plt Count Lymph % (Auto) Lymph # (Auto) Seg Neutrophils % Seg Neuts % (Manual) Lymphocytes % (Manual) Seg Neutrophils # Man Lymphocytes # (Manual) PT INR ABG pH ABG pO2 ABG HCO3 ABG Base Excess ABG Hemoglobin Oxyhemoglobin Sodium Potassium 3.4 L Chloride 107.1 H Carbon Dioxide 19 L BUN 4 L Creatinine 0.4 L Glucose 157 H POC Glucose 143 H 110 H Lactic Acid Calcium 7.4 L D Phosphorus 1.60 L Magnesium 1.50 L Total Bilirubin 1.40 H Direct Bilirubin AST 95 H ALT Alkaline Phosphatase 328 H Total Protein 5.5 L Albumin 1.6 L Lipase Ur Specific [place] Vancomycin Trough Coronavirus (PCR) 05/14/21 05/14/21 05/14/21 06:15 06:15 10:25 WBC 11.7 H RBC 3.41 L Hgb MCV 98 H RDW 18.6 H Plt Count Lymph % (Auto) Lymph # (Auto) Seg Neutrophils % Seg Neuts % (Manual) Lymphocytes % (Manual) Seg Neutrophils # Man Lymphocytes # (Manual) PT INR ABG pH ABG pO2 76.0 L ABG HCO3 27.2 H ABG Base Excess ABG Hemoglobin 11.5 L Oxyhemoglobin 94.4 L Sodium Potassium 3.2 L Chloride Carbon Dioxide BUN 6 L Creatinine 0.5 L Glucose 103 H POC Glucose Lactic Acid Calcium 7.3 L Phosphorus 1.70 L Magnesium Total Bilirubin Direct Bilirubin AST 66 H ALT Alkaline Phosphatase 295 H Total Protein 5.3 L Albumin 1.8 L Lipase Ur Specific [place] Vancomycin Trough Coronavirus (PCR) 05/14/21 05/14/21 05/14/21 15:20 15:20 17:26 WBC RBC Hgb MCV RDW Plt Count Lymph % (Auto) Lymph # (Auto) Seg Neutrophils % Seg Neuts % (Manual) Lymphocytes % (Manual) Seg Neutrophils # Man Lymphocytes # (Manual) PT INR ABG pH ABG pO2 ABG HCO3 ABG Base Excess ABG Hemoglobin Oxyhemoglobin Sodium 146 H D Potassium Chloride 108.4 H Carbon Dioxide BUN 5 L Creatinine 0.5 L Glucose POC Glucose 63 L Lactic Acid Calcium 7.6 L Phosphorus Magnesium Total Bilirubin Direct Bilirubin AST ALT Alkaline Phosphatase Total Protein Albumin Lipase Ur Specific [place] Vancomycin Trough 25.3 H Coronavirus (PCR) 05/14/21 05/15/21 05/15/21 21:27 00:03 00:29 WBC RBC Hgb MCV RDW Plt Count Lymph % (Auto) Lymph # (Auto) Seg Neutrophils % Seg Neuts % (Manual) Lymphocytes % (Manual) Seg Neutrophils # Man Lymphocytes # (Manual) PT INR ABG pH ABG pO2 ABG HCO3 ABG Base Excess ABG Hemoglobin Oxyhemoglobin Sodium Potassium Chloride Carbon Dioxide BUN Creatinine Glucose POC Glucose 52 L 54 L 129 H Lactic Acid Calcium Phosphorus Magnesium Total Bilirubin Direct Bilirubin AST ALT Alkaline Phosphatase Total Protein Albumin Lipase Ur Specific [place] Vancomycin Trough Coronavirus (PCR) 05/15/21 05/15/21 05/15/21 04:45 04:45 11:58 WBC RBC 3.24 L Hgb MCV 98 H RDW 18.5 H Plt Count 122 L Lymph % (Auto) 7.4 L Lymph # (Auto) 0.6 L Seg Neutrophils % 81.2 H Seg Neuts % (Manual) Lymphocytes % (Manual) Seg Neutrophils # Man Lymphocytes # (Manual) PT INR ABG pH ABG pO2 ABG HCO3 ABG Base Excess ABG Hemoglobin Oxyhemoglobin Sodium 146 H Potassium 3.1 L Chloride 108.8 H Carbon Dioxide BUN 6 L Creatinine Glucose 121 H POC Glucose 68 L Lactic Acid Calcium 7.5 L Phosphorus 2.30 L D Magnesium Total Bilirubin 1.90 H Direct Bilirubin AST 55 H ALT Alkaline Phosphatase 231 H Total Protein 5.4 L Albumin 1.5 L Lipase Ur Specific [place] Vancomycin Trough Coronavirus (PCR) 05/15/21 05/16/21 05/16/21 13:50 00:06 00:43 WBC RBC Hgb MCV RDW Plt Count Lymph % (Auto) Lymph # (Auto) Seg Neutrophils % Seg Neuts % (Manual) Lymphocytes % (Manual) Seg Neutrophils # Man Lymphocytes # (Manual) PT INR ABG pH ABG pO2 ABG HCO3 ABG Base Excess ABG Hemoglobin Oxyhemoglobin Sodium Potassium Chloride Carbon Dioxide BUN Creatinine Glucose POC Glucose 147 H 54 L 116 H Lactic Acid Calcium Phosphorus Magnesium Total Bilirubin Direct Bilirubin AST ALT Alkaline Phosphatase Total Protein Albumin Lipase Ur Specific [place] Vancomycin Trough Coronavirus (PCR) 05/16/21 05/16/21 05/16/21 04:31 04:31 05:58 WBC RBC 3.12 L Hgb 9.8 L MCV 98 H RDW 18.2 H Plt Count 115 L Lymph % (Auto) Lymph # (Auto) Seg Neutrophils % Seg Neuts % (Manual) Lymphocytes % (Manual) Seg Neutrophils # Man Lymphocytes # (Manual) PT INR ABG pH ABG pO2 ABG HCO3 ABG Base Excess ABG Hemoglobin Oxyhemoglobin Sodium 146 H Potassium 3.2 L Chloride Carbon Dioxide BUN 5 L Creatinine 0.5 L Glucose POC Glucose 61 L Lactic Acid Calcium 7.2 L Phosphorus 2.30 L Magnesium Total Bilirubin Direct Bilirubin AST ALT Alkaline Phosphatase Total Protein Albumin Lipase Ur Specific [place] Vancomycin Trough Coronavirus (PCR) 05/16/21 05/16/21 05/17/21 08:11 23:42 04:15 WBC RBC Hgb MCV RDW Plt Count Lymph % (Auto) Lymph # (Auto) Seg Neutrophils % Seg Neuts % (Manual) Lymphocytes % (Manual) Seg Neutrophils # Man Lymphocytes # (Manual) PT INR ABG pH ABG pO2 ABG HCO3 ABG Base Excess ABG Hemoglobin Oxyhemoglobin Sodium Potassium Chloride Carbon Dioxide BUN Creatinine Glucose POC Glucose 58 L 200 H Lactic Acid Calcium Phosphorus Magnesium Total Bilirubin 1.70 H Direct Bilirubin 1.5 H AST 43 H ALT Alkaline Phosphatase 196 H Total Protein 5.4 L Albumin 1.6 L Lipase Ur Specific [place] Vancomycin Trough Coronavirus (PCR) 05/17/21 05/17/21 05/17/21 04:15 04:15 05:07 WBC RBC 3.26 L Hgb MCV 98 H RDW 18.9 H Plt Count 114 L Lymph % (Auto) Lymph # (Auto) Seg Neutrophils % Seg Neuts % (Manual) Lymphocytes % (Manual) Seg Neutrophils # Man Lymphocytes # (Manual) PT INR ABG pH ABG pO2 ABG HCO3 ABG Base Excess ABG Hemoglobin Oxyhemoglobin Sodium Potassium Chloride Carbon Dioxide 35 H BUN 5 L Creatinine Glucose 274 H POC Glucose 249 H Lactic Acid Calcium 7.7 L Phosphorus 1.50 L D Magnesium Total Bilirubin Direct Bilirubin AST ALT Alkaline Phosphatase Total Protein Albumin Lipase Ur Specific [place] Vancomycin Trough Coronavirus (PCR) 05/17/21 05/17/21 05/17/21 11:56 16:29 23:37 WBC RBC Hgb MCV RDW Plt Count Lymph % (Auto) Lymph # (Auto) Seg Neutrophils % Seg Neuts % (Manual) Lymphocytes % (Manual) Seg Neutrophils # Man Lymphocytes # (Manual) PT INR ABG pH ABG pO2 ABG HCO3 ABG Base Excess ABG Hemoglobin Oxyhemoglobin Sodium Potassium Chloride Carbon Dioxide BUN Creatinine Glucose POC Glucose 176 H 219 H 150 H Lactic Acid Calcium Phosphorus Magnesium Total Bilirubin Direct Bilirubin AST ALT Alkaline Phosphatase Total Protein Albumin Lipase Ur Specific [place] Vancomycin Trough Coronavirus (PCR) 05/18/21 05/18/21 05/18/21 04:00 05:22 09:00 WBC RBC 3.34 L Hgb MCV RDW 18.8 H Plt Count Lymph % (Auto) Lymph # (Auto) Seg Neutrophils % Seg Neuts % (Manual) Lymphocytes % (Manual) Seg Neutrophils # Man Lymphocytes # (Manual) PT INR ABG pH ABG pO2 ABG HCO3 ABG Base Excess ABG Hemoglobin Oxyhemoglobin Sodium Potassium 5.4 H D Chloride 97.5 L Carbon Dioxide 33 H BUN Creatinine 0.4 L Glucose 461 H POC Glucose 181 H Lactic Acid Calcium 7.2 L Phosphorus 5.00 H D Magnesium Total Bilirubin Direct Bilirubin AST ALT Alkaline Phosphatase Total Protein Albumin Lipase Ur Specific [place] Vancomycin Trough Coronavirus (PCR) 05/18/21 05/18/21 05/18/21 11:16 12:50 16:29 WBC RBC Hgb MCV RDW Plt Count Lymph % (Auto) Lymph # (Auto) Seg Neutrophils % Seg Neuts % (Manual) Lymphocytes % (Manual) Seg Neutrophils # Man Lymphocytes # (Manual) PT INR ABG pH ABG pO2 ABG HCO3 ABG Base Excess ABG Hemoglobin Oxyhemoglobin Sodium Potassium 3.4 L D Chloride Carbon Dioxide 36 H BUN 19 H Creatinine 0.4 L Glucose 231 H POC Glucose 168 H 196 H Lactic Acid Calcium 7.5 L Phosphorus 1.80 L D Magnesium Total Bilirubin Direct Bilirubin AST ALT Alkaline Phosphatase Total Protein Albumin Lipase Ur Specific [place] Vancomycin Trough Coronavirus (PCR) 05/19/21 05/19/21 05/19/21 00:05 04:08 05:07 WBC RBC Hgb MCV RDW Plt Count Lymph % (Auto) Lymph # (Auto) Seg Neutrophils % Seg Neuts % (Manual) Lymphocytes % (Manual) Seg Neutrophils # Man Lymphocytes # (Manual) PT INR ABG pH ABG pO2 ABG HCO3 ABG Base Excess ABG Hemoglobin Oxyhemoglobin Sodium 146 H Potassium Chloride Carbon Dioxide 35 H BUN 25 H Creatinine 0.4 L Glucose 218 H POC Glucose 164 H 203 H Lactic Acid Calcium 7.2 L Phosphorus Magnesium Total Bilirubin Direct Bilirubin AST ALT Alkaline Phosphatase Total Protein Albumin Lipase Ur Specific [place] Vancomycin Trough Coronavirus (PCR) 05/19/21 05/19/21 05/19/21 12:16 14:14 17:11 WBC RBC Hgb MCV RDW Plt Count Lymph % (Auto) Lymph # (Auto) Seg Neutrophils % Seg Neuts % (Manual) Lymphocytes % (Manual) Seg Neutrophils # Man Lymphocytes # (Manual) PT INR ABG pH 7.482 H ABG pO2 111.7 H ABG HCO3 31.4 H ABG Base Excess 7.2 H ABG Hemoglobin 11.1 L Oxyhemoglobin Sodium Potassium Chloride Carbon Dioxide BUN Creatinine Glucose POC Glucose 206 H 194 H Lactic Acid Calcium Phosphorus Magnesium Total Bilirubin Direct Bilirubin AST ALT Alkaline Phosphatase Total Protein Albumin Lipase Ur Specific [place] Vancomycin Trough Coronavirus (PCR) 05/20/21 05/20/21 05/20/21 00:01 04:30 06:09 WBC RBC Hgb MCV RDW Plt Count Lymph % (Auto) Lymph # (Auto) Seg Neutrophils % Seg Neuts % (Manual) Lymphocytes % (Manual) Seg Neutrophils # Man Lymphocytes # (Manual) PT INR ABG pH ABG pO2 ABG HCO3 ABG Base Excess ABG Hemoglobin Oxyhemoglobin Sodium Potassium 3.5 L Chloride Carbon Dioxide BUN 24 H Creatinine 0.3 L Glucose 254 H POC Glucose 209 H 210 H Lactic Acid Calcium 7.5 L Phosphorus 1.90 L D Magnesium Total Bilirubin 1.60 H Direct Bilirubin AST 201 H ALT 170 H Alkaline Phosphatase 169 H Total Protein 5.3 L Albumin 1.9 L Lipase Ur Specific [place] Vancomycin Trough Coronavirus (PCR) 05/20/21 05/20/21 05/20/21 11:41 16:47 22:21 WBC RBC Hgb MCV RDW Plt Count Lymph % (Auto) Lymph # (Auto) Seg Neutrophils % Seg Neuts % (Manual) Lymphocytes % (Manual) Seg Neutrophils # Man Lymphocytes # (Manual) PT INR ABG pH ABG pO2 ABG HCO3 ABG Base Excess ABG Hemoglobin Oxyhemoglobin Sodium Potassium Chloride Carbon Dioxide BUN Creatinine Glucose POC Glucose 158 H 232 H 211 H Lactic Acid Calcium Phosphorus Magnesium Total Bilirubin Direct Bilirubin AST ALT Alkaline Phosphatase Total Protein Albumin Lipase Ur Specific [place] Vancomycin Trough Coronavirus (PCR) 05/21/21 05/21/21 05/21/21 00:35 04:00 04:00 WBC RBC 3.28 L Hgb MCV RDW 18.7 H Plt Count 125 L Lymph % (Auto) Lymph # (Auto) Seg Neutrophils % Seg Neuts % (Manual) Lymphocytes % (Manual) Seg Neutrophils # Man Lymphocytes # (Manual) PT INR ABG pH ABG pO2 ABG HCO3 ABG Base Excess ABG Hemoglobin Oxyhemoglobin Sodium Potassium 5.1 H D Chloride 108.7 H Carbon Dioxide BUN 21 H Creatinine 0.2 L Glucose 242 H POC Glucose 230 H Lactic Acid Calcium 7.3 L Phosphorus Magnesium Total Bilirubin Direct Bilirubin AST ALT Alkaline Phosphatase Total Protein Albumin Lipase Ur Specific [place] Vancomycin Trough Coronavirus (PCR) 05/21/21 05/21/21 05/21/21 05:08 11:47 17:43 WBC RBC Hgb MCV RDW Plt Count Lymph % (Auto) Lymph # (Auto) Seg Neutrophils % Seg Neuts % (Manual) Lymphocytes % (Manual) Seg Neutrophils # Man Lymphocytes # (Manual) PT INR ABG pH ABG pO2 ABG HCO3 ABG Base Excess ABG Hemoglobin Oxyhemoglobin Sodium Potassium Chloride Carbon Dioxide BUN Creatinine Glucose POC Glucose 196 H 139 H 147 H Lactic Acid Calcium Phosphorus Magnesium Total Bilirubin Direct Bilirubin AST ALT Alkaline Phosphatase Total Protein Albumin Lipase Ur Specific [place] Vancomycin Trough Coronavirus (PCR) 05/21/21 05/21/21 05/22/21 17:57 23:32 04:16 WBC RBC Hgb MCV RDW Plt Count Lymph % (Auto) Lymph # (Auto) Seg Neutrophils % Seg Neuts % (Manual) Lymphocytes % (Manual) Seg Neutrophils # Man Lymphocytes # (Manual) PT INR ABG pH ABG pO2 ABG HCO3 ABG Base Excess ABG Hemoglobin Oxyhemoglobin Sodium Potassium 5.2 H Chloride Carbon Dioxide BUN 19 H Creatinine 0.2 L Glucose 154 H POC Glucose 218 H 185 H Lactic Acid Calcium 7.5 L Phosphorus Magnesium Total Bilirubin 3.00 H Direct Bilirubin 2.3 H AST 437 H ALT 462 H Alkaline Phosphatase 186 H Total Protein 5.5 L Albumin 1.9 L Lipase Ur Specific [place] Vancomycin Trough Coronavirus (PCR) 05/22/21 05/22/21 05/22/21 04:30 04:30 04:30 WBC RBC Hgb MCV RDW Plt Count Lymph % (Auto) Lymph # (Auto) Seg Neutrophils % Seg Neuts % (Manual) Lymphocytes % (Manual) Seg Neutrophils # Man Lymphocytes # (Manual) PT 19.5 H INR 1.49 H ABG pH ABG pO2 ABG HCO3 ABG Base Excess ABG Hemoglobin Oxyhemoglobin Sodium 134 L Potassium Chloride Carbon Dioxide BUN 19 H Creatinine 0.2 L Glucose 208 H POC Glucose Lactic Acid Calcium 7.2 L Phosphorus 2.40 L D Magnesium Total Bilirubin 2.20 H Direct Bilirubin AST 350 H ALT 496 H Alkaline Phosphatase 167 H Total Protein 4.8 L Albumin 1.7 L Lipase Ur Specific [place] Vancomycin Trough Coronavirus (PCR) 05/22/21 05/22/21 05/22/21 11:59 17:16 23:07 WBC RBC Hgb MCV RDW Plt Count Lymph % (Auto) Lymph # (Auto) Seg Neutrophils % Seg Neuts % (Manual) Lymphocytes % (Manual) Seg Neutrophils # Man Lymphocytes # (Manual) PT INR ABG pH ABG pO2 ABG HCO3 ABG Base Excess ABG Hemoglobin Oxyhemoglobin Sodium Potassium Chloride Carbon Dioxide BUN Creatinine Glucose POC Glucose 204 H 244 H 226 H Lactic Acid Calcium Phosphorus Magnesium Total Bilirubin Direct Bilirubin AST ALT Alkaline Phosphatase Total Protein Albumin Lipase Ur Specific [place] Vancomycin Trough Coronavirus (PCR) 05/23/21 05/23/21 05/23/21 05:09 10:15 10:15 WBC RBC Hgb MCV RDW Plt Count Lymph % (Auto) Lymph # (Auto) Seg Neutrophils % Seg Neuts % (Manual) Lymphocytes % (Manual) Seg Neutrophils # Man Lymphocytes # (Manual) PT 16.9 H INR 1.24 H ABG pH ABG pO2 ABG HCO3 ABG Base Excess ABG Hemoglobin Oxyhemoglobin Sodium 131 L Potassium Chloride 97.5 L Carbon Dioxide BUN Creatinine < 0.2 L Glucose 248 H POC Glucose 175 H Lactic Acid Calcium 7.4 L Phosphorus Magnesium 1.60 L Total Bilirubin Direct Bilirubin AST ALT Alkaline Phosphatase Total Protein Albumin Lipase Ur Specific [place] Vancomycin Trough Coronavirus (PCR) 05/23/21 05/23/21 05/24/21 10:15 21:46 04:16 WBC RBC Hgb MCV RDW Plt Count Lymph % (Auto) Lymph # (Auto) Seg Neutrophils % Seg Neuts % (Manual) Lymphocytes % (Manual) Seg Neutrophils # Man Lymphocytes # (Manual) PT INR ABG pH ABG pO2 ABG HCO3 ABG Base Excess ABG Hemoglobin Oxyhemoglobin Sodium 130 L Potassium 3.5 L Chloride 97.1 L Carbon Dioxide BUN Creatinine 0.2 L Glucose 235 H POC Glucose 190 H Lactic Acid Calcium 6.8 L Phosphorus Magnesium Total Bilirubin 2.30 H Direct Bilirubin 1.6 H AST 161 H ALT 396 H Alkaline Phosphatase 186 H Total Protein 4.7 L Albumin 2.0 L Lipase Ur Specific [place] Vancomycin Trough Coronavirus (PCR) 05/24/21 05/25/21 05/25/21 05:32 04:25 04:25 WBC 11.7 H RBC 3.28 L Hgb MCV RDW 19.9 H Plt Count Lymph % (Auto) Lymph # (Auto) Seg Neutrophils % Seg Neuts % (Manual) Lymphocytes % (Manual) Seg Neutrophils # Man Lymphocytes # (Manual) PT INR ABG pH ABG pO2 ABG HCO3 ABG Base Excess ABG Hemoglobin Oxyhemoglobin Sodium 135 L Potassium 3.4 L Chloride Carbon Dioxide BUN Creatinine 0.2 L Glucose 105 H POC Glucose 208 H Lactic Acid Calcium 7.6 L Phosphorus Magnesium Total Bilirubin Direct Bilirubin AST ALT Alkaline Phosphatase Total Protein Albumin Lipase Ur Specific [place] Vancomycin Trough Coronavirus (PCR) 05/26/21 05/26/21 05/26/21 11:37 16:57 20:59 WBC RBC Hgb MCV RDW Plt Count Lymph % (Auto) Lymph # (Auto) Seg Neutrophils % Seg Neuts % (Manual) Lymphocytes % (Manual) Seg Neutrophils # Man Lymphocytes # (Manual) PT INR ABG pH ABG pO2 ABG HCO3 ABG Base Excess ABG Hemoglobin Oxyhemoglobin Sodium Potassium Chloride Carbon Dioxide BUN Creatinine Glucose POC Glucose 136 H 214 H 137 H Lactic Acid Calcium Phosphorus Magnesium Total Bilirubin Direct Bilirubin AST ALT Alkaline Phosphatase Total Protein Albumin Lipase Ur Specific [place] Vancomycin Trough Coronavirus (PCR) 05/26/21 05/27/21 05/27/21 23:52 05:40 16:49 WBC RBC Hgb MCV RDW Plt Count Lymph % (Auto) Lymph # (Auto) Seg Neutrophils % Seg Neuts % (Manual) Lymphocytes % (Manual) Seg Neutrophils # Man Lymphocytes # (Manual) PT INR ABG pH ABG pO2 ABG HCO3 ABG Base Excess ABG Hemoglobin Oxyhemoglobin Sodium Potassium Chloride Carbon Dioxide BUN Creatinine Glucose POC Glucose 111 H 144 H 213 H Lactic Acid Calcium Phosphorus Magnesium Total Bilirubin Direct Bilirubin AST ALT Alkaline Phosphatase Total Protein Albumin Lipase Ur Specific [place] Vancomycin Trough Coronavirus (PCR) 05/27/21 05/27/21 05/28/21 21:07 23:57 11:59 WBC RBC Hgb MCV RDW Plt Count Lymph % (Auto) Lymph # (Auto) Seg Neutrophils % Seg Neuts % (Manual) Lymphocytes % (Manual) Seg Neutrophils # Man Lymphocytes # (Manual) PT INR ABG pH ABG pO2 ABG HCO3 ABG Base Excess ABG Hemoglobin Oxyhemoglobin Sodium Potassium Chloride Carbon Dioxide BUN Creatinine Glucose POC Glucose 135 H 157 H 130 H Lactic Acid Calcium Phosphorus Magnesium Total Bilirubin Direct Bilirubin AST ALT Alkaline Phosphatase Total Protein Albumin Lipase Ur Specific [place] Vancomycin Trough Coronavirus (PCR) 05/28/21 05/29/21 05/29/21 17:05 01:03 05:07 WBC RBC Hgb MCV RDW Plt Count Lymph % (Auto) Lymph # (Auto) Seg Neutrophils % Seg Neuts % (Manual) Lymphocytes % (Manual) Seg Neutrophils # Man Lymphocytes # (Manual) PT INR ABG pH ABG pO2 ABG HCO3 ABG Base Excess ABG Hemoglobin Oxyhemoglobin Sodium 148 H D Potassium 3.0 L Chloride 108.0 H Carbon Dioxide BUN Creatinine 0.2 L Glucose 155 H POC Glucose 207 H 204 H Lactic Acid Calcium 7.7 L Phosphorus Magnesium Total Bilirubin Direct Bilirubin AST ALT Alkaline Phosphatase Total Protein Albumin Lipase Ur Specific [place] Vancomycin Trough Coronavirus (PCR) 05/29/21 05/29/21 05/29/21 08:20 11:30 17:53 WBC RBC Hgb MCV RDW Plt Count Lymph % (Auto) Lymph # (Auto) Seg Neutrophils % Seg Neuts % (Manual) Lymphocytes % (Manual) Seg Neutrophils # Man Lymphocytes # (Manual) PT INR ABG pH ABG pO2 ABG HCO3 ABG Base Excess ABG Hemoglobin Oxyhemoglobin Sodium Potassium Chloride Carbon Dioxide BUN Creatinine Glucose POC Glucose 119 H 199 H Lactic Acid Calcium Phosphorus Magnesium Total Bilirubin Direct Bilirubin AST ALT Alkaline Phosphatase Total Protein Albumin Lipase Ur Specific [place] Vancomycin Trough Coronavirus (PCR) Positive A Allied health notes reviewed: nursing
[2021-05-29] MEDS: INSULIN GLARGINE 100 UNITS/ML SUB-Q SCH (22:07)
[2021-05-30] MEDS: INSULIN LISPRO 100 UNIT/ML SUB-Q SCH ×4 (01:39→18:57)
[2021-05-30] MEDS: DEXTROSE 50% IN WATER (25GM) 50 ML SYRINGE IV PRN (06:10)
[2021-05-30] MEDS: HYDROmorphone 1 MG/1 ML INJ IV PRN ×3 (07:05→15:23)
[2021-05-30] MEDS: ARFORMOTEROL 15 MCG/2 ML NEBU IH SCH ×2 (09:35→23:21)
[2021-05-30] MEDS: BUDESONIDE 0.5 MG/2 ML NEBU IH SCH ×2 (09:35→20:36)
[2021-05-30] MEDS: DEXAMETHASONE 2 MG TAB FEEDTUBE SCH (10:24)
[2021-05-30] MEDS: DICYCLOMINE 10 MG CAP PO SCH ×4 (10:24→21:22)
[2021-05-30] MEDS: LANSOPRAZOLE 30 MG SOLUTAB FEEDTUBE SCH (10:25)
[2021-05-30] MEDS: ALPRAZolam 1 MG TAB PO PRN ×2 (10:26→21:20)
--- NOTE | 2021-05-30 11:15 | Progress Note ---
Assessment and Plan Assessment and plan: This is a 51-year-old female with COPD, pancreatic cancer and radiation, s/p pancreatic stent placement, pulmonary fibrosis, hypertension and chronic respiratory failure on 2 L oxygen via nasal cannula who presented to emergency department on 05/11 with complaints of right upper quadrant pain which started approximately at 0200 with nausea and vomiting. Work-up in the emergency department included a CTA chest which showed no pulmonary embolism, mild fluid- filled esophagus and distended stomach with bilateral interstitial opacity in the chest, and CT abdomen/pelvis with contrast which showed persistent pancreatic carcinoma with indwelling metallic stent which is suspected to be occluded. Lab work revealed leukocytosis, transaminitis and lactic acidosis. Patient became hypotensive in the emergency department and required 3 L of IV fluid and was eventually started on vasopressors after placement of femoral central line. Patient was started on empiric antibiotics. Admitted to the hospitalist service with consults to GI and CCM for transaminitis, possible sepsis, and lactic acidosis. Acute on chronic hypoxic respiratory failure Septic shock Transaminitis Hyperbilirubinemia Pulmonary fibrosis/ILD Pancreatic cancer -CT abdomen/pelvis showed pancreatic cancer with metallic stent with possible occlusion, mild pelvic fluid and mild colonic thickening Thrombocytopenia 05/12: Patient remains on high-dose Levophed and vasopressin. Given 1 L LR bolus. GI would like an MRCP to be conducted which has been ordered. Patient cleared for sips of water. Added Tessalon due to severe cough. Potassium repleted. Covid PCR negative. 05/13: Remains on Levophed and vasopressin has been off since yesterday evening. Started on stress dose steroids. MRCP pending. Hypokalemia, hypomagnesemia and hypophosphatemia repleted. Liver enzymes trending down. Started on D5 normal saline yesterday. 05/14: Patient with worsen respiratory status this am, tachypneic with increased O2 requirement. On full support on the Bipap this am with worsening diffuse bilateral opacities on CXR, s/p X1 dose of IV lasix overnight. Patient remains afebrile with no leukocytosis. Will continue IV Lasix X3 doses, f/u CXR in the am. D/W CCM due to patient worsening respiratory status hold on MRCP for today. Patient is off Levophed this am, leave pressors on standby might need to be put back on low dose pressors with IV diuretic. Patient also noted with Rt. fem CVC which was inserted in the ED, most likely due to be change, unsuccessfult PICC by IVT today and patient is refusing Port access at this time. 05/15: Patient remains on continuous Bipap overnight, desat when bipap is removed for mouth care. Plan to wean Fio2 as tolerated for SPO2 goal above 90%. Febrile overnight, TMAX 101.4, on IV abx zosyn, repeat blood culture ordered. Low K and phosph repleted, repeat labs in the am. 05/16: Patient back on full support on the Bipap, still not tolerating FiO2 wean, patient desat in the 80s. D/w CCM plan to continue continuous bipap for now, patient going on over 4 days with no nutrition plan to initiate TPN tomorrow. D10w gtt added for hypoglycemia. Patient platelet continue to steadily drop, given patient's history with continue AC for now, H&H is stable, no s/s of any active bleeding. Electrolytes repleted, will continue to trend CBC, BMP, mg, and phos. MRCP canceled, plan to reorder once patient's respiratory status is more stable. 05/17: Patient remains on continuous Bipap. Patient remains on low dose Levophed, plan to wean off pressors as tolerated for a MAP above 65. Clinimix initiated overnight, plan to start TPN tonight. Hyperglycemic overnight, SSI was initiated. Low phos repleted, repeat lab in the am. 05/18: Down to 60% FIo2 on the Bipap, SPO2 above 97%. Off pressros this am, TPN is running. Patient is now hyperglycemic, SSI adjusted. Consider basal dose, lantus if hyperglycemia persist. This am labs noted, hyperkalemia and really high glucose noted totally different from normal trend, orders placed for redraw. 05/19: Overnight events noted. Started on PRN haldol for agitation. Patient placed on heated high Flow at 100%, 40L SPO2 at 100%. Continue to wean Fio2 as tolerated for SPO2 for SPO2 above 92%. Continue TPN for now. Patient still hyperglycemic basal dose lantus added Qhs. 05/20: Patient is tolerating HHFL NC, SPO2 above 95%. Continue HHFL NC during and Bipap at night. Still on TPN for nutrition, hyperglycemia persists- basal insulin increased. Low K and phosp was repleted, repeat lab in the am. 05/21: Patient unable to tolerate OptiFlow for more than couple hours and was placed back on BiPAP due to desaturation. Patient remains on TPN for nutrition which was held today due to hyperkalemia. P.m. BMP ordered but not collected. Patient refused to have port accessed and PICC line ordered. Down grading to [facility] status 05/21 abdominal ultrasound shows findings of emergency megaly and steatosis without other significant abnormality in the right upper quadrant. ST eval ordered and Ntr consult for cyclic TF. midline ordered 05/23/ Patient with acute on chronic resp failure, COPD, pancreatic cancer. She has been transferred to [facility]. She is on BIPAP Hypomag. Replace and recheck in am 05/24/21 Patient with acute on chronic resp failure. Still on BIPAP To start tube feeding 05/25/21 Patient with acute on chronic respiratory failure She desaturated down to Oxygen sat 85% today Will order CT Angio to r/o pulmonary embolism 05/26/21: patient remains on bipap, o2 sat in 90s. CT angio not completed yesterday as patient could not lay flat. Add dilaudid for improved pain control to patient medications and advised engineer technical staff to re-attempt CT angio. Patient has a poor prognosis given pulmonary fibrosis and pancreatic cancer. Will likely re- visit talks of palliaitive care as she may benefit more from this. 05/27/21: Remains bipap dependent. D/w patient regarding comfort care/hospice, she is interested. CM consulted. Patient would still like to remain full code 05/28/21: Remains bipap dependent. Spoke with Eriberto (daughter) who states that she is in agreement for comfort measures for her mother. Coordinating with case management for inpatient hospice referral. Daughter also requested to see her mother in person. Unfortunately due to visitation limitations as a result of the COVID-19 pandemic, daughter will only be able to communicate via telecommunication devices at this time. Care staff was notified the patient is Greek-speaking and to call the daughter if they would like to communicate with the patient. 05/29/2021: Spoke with Eriberto (daughter) who states that she is in agreement for comfort measures for her mother. Referral made to [facility]. Patient will discharge to inpatient hospice today. 05/30/2021: Patient's covid test results returned positive. Patient's pending discharge was cancelled as inpatient hospice will not accept a covid + patient. Case Management met with patient's daughter to update on status. Patient's prognosis remains poor. Patient on BiPAP (IPAP 15, EPAP 10, FiO2 85%). Patient started on steroids yesterday and we will start remdesivir today. I discussed the case with pulmonary. Patient will remain a full code I discussed the case with the daughter. History Interval history: No new issues overnight Hospitalist Physical - Constitutional Vitals: Temp Pulse Resp BP Pulse Ox 98.2 F 107 H 31 H 116/77 100 05/30/21 08:00 05/30/21 10:00 05/30/21 10:00 05/30/21 10:05/30/21 10:00 General appearance: Present: no acute distress, well-nourished - EENT Eyes: Present: PERRL, EOM intact ENT: hearing intact, clear oral mucosa, dentition normal - Neck Neck: Present: supple, normal ROM - Respiratory Respiratory effort: normal Respiratory: bilateral: CTA - Cardiovascular Rhythm: regular Heart Sounds: Present: S1 & S2. Absent: gallop, rub - Extremities Extremities: no ischemia, No edema, Full ROM - Abdominal General gastrointestinal: soft, non-tender, non-distended, normal bowel sounds - Integumentary Integumentary: Present: clear, warm, dry - Neurologic Neurologic: CNII-XII intact, moves all extremities Results - Labs CBC & Chem 7: 05/25/21 04:25 05/29/21 05:07 Labs: Laboratory Last Values WBC 11.7 K/mm3 (4.5-11.0) H 05/25/21 04:25 RBC 3.28 M/mm3 (3.65-5.03) L 05/25/21 04:25 Hgb 10.3 gm/dl (10.1-14.3) 05/25/21 04:25 Hct 31.6 % (30.3-42.9) 05/25/21 04:25 MCV 96 fl (79-97) 05/25/21 04:25 MCH 32 pg (28-32) 05/25/21 04:25 MCHC 33 % (30-34) 05/25/21 04:25 RDW 19.9 % (13.2-15.2) H 05/25/21 04:25 Plt Count 142 K/mm3 (140-440) 05/25/21 04:25 Lymph % (Auto) 7.4 % (13.4-35.0) L 05/15/21 04:45 [place] % (Auto) 6.7 % (0.0-7.3) 05/15/21 04:45 Eos % (Auto) 4.0 % (0.0-4.3) 05/15/21 04:45 Baso % (Auto) 0.7 % (0.0-1.8) 05/15/21 04:45 Lymph # (Auto) 0.6 K/mm3 (1.2-5.4) L 05/15/21 04:45 [place] # (Auto) 0.6 K/mm3 (0.0-0.8) 05/15/21 04:45 Eos # (Auto) 0.3 K/mm3 (0.0-0.4) 05/15/21 04:45 Baso # (Auto) 0.1 K/mm3 (0.0-0.1) 05/15/21 04:45 Add Manual Diff Complete 05/12/21 04:08 Total Counted 200 05/12/21 04:08 Seg Neutrophils % 81.2 % (40.0-70.0) H 05/15/21 04:45 Seg Neuts % (Manual) 85.5 % (40.0-70.0) H 05/12/21 04:08 Band Neutrophils % 8.5 % 05/12/21 04:08 Lymphocytes % (Manual) 2.0 % (13.4-35.0) L 05/12/21 04:08 Monocytes % (Manual) 3.0 % (0.0-7.3) 05/12/21 04:08 Eosinophils % (Manual) 1.0 % (0.0-4.3) 05/12/21 04:08 Nucleated RBC % Not Reportable 05/12/21 04:08 Seg Neutrophils # 6.7 K/mm3 (1.8-7.7) 05/15/21 04:45 Seg Neutrophils # Man 19.5 K/mm3 (1.8-7.7) H 05/12/21 04:08 Band Neutrophils # 1.9 K/mm3 05/12/21 04:08 Lymphocytes # (Manual) 0.5 K/mm3 (1.2-5.4) L 05/12/21 04:08 Abs React Lymphs (Man) 0.0 K/mm3 05/12/21 04:08 Monocytes # (Manual) 0.7 K/mm3 (0.0-0.8) 05/12/21 04:08 Eosinophils # (Manual) 0.2 K/mm3 (0.0-0.4) 05/12/21 04:08 Basophils # (Manual) 0.0 K/mm3 (0.0-0.1) 05/12/21 04:08 Metamyelocytes # 0.0 K/mm3 05/12/21 04:08 Myelocytes # 0.0 K/mm3 05/12/21 04:08 Promyelocytes # 0.0 K/mm3 05/12/21 04:08 Blast Cells # 0.0 K/mm3 05/12/21 04:08 WBC Morphology Not Reportable 05/12/21 04:08 Hypersegmented Neuts Not Reportable 05/12/21 04:08 Hyposegmented Neuts Not Reportable 05/12/21 04:08 Hypogranular Neuts Not Reportable 05/12/21 04:08 Smudge Cells Not Reportable 05/12/21 04:08 Toxic Granulation Not Reportable 05/12/21 04:08 Toxic Vacuolation Not Reportable 05/12/21 04:08 Dohle Bodies Not Reportable 05/12/21 04:08 Pelger-Huet Anomaly Not Reportable 05/12/21 04:08 Elizabeth Rods Not Reportable 05/12/21 04:08 Platelet Estimate Consistent w auto 05/12/21 04:08 Clumped Platelets Not Reportable 05/12/21 04:08 Plt Clumps, EDTA Not Reportable 05/12/21 04:08 Large Platelets Not Reportable 05/12/21 04:08 Giant Platelets Not Reportable 05/12/21 04:08 Platelet Satelliting Not Reportable 05/12/21 04:08 Plt Morphology Comment Not Reportable 05/12/21 04:08 RBC Morphology Not Reportable 05/12/21 04:08 Dimorphic RBCs Not Reportable 05/12/21 04:08 Polychromasia Not Reportable 05/12/21 04:08 Hypochromasia Not Reportable 05/12/21 04:08 Poikilocytosis Not Reportable 05/12/21 04:08 Anisocytosis 1+ 05/12/21 04:08 Microcytosis Not Reportable 05/12/21 04:08 Macrocytosis Not Reportable 05/12/21 04:08 Spherocytes Not Reportable 05/12/21 04:08 Pappenheimer Bodies Not Reportable 05/12/21 04:08 Sickle Cells Not Reportable 05/12/21 04:08 Target Cells Not Reportable 05/12/21 04:08 Tear Drop Cells Not Reportable 05/12/21 04:08 Ovalocytes Not Reportable 05/12/21 04:08 Helmet Cells Not Reportable 05/12/21 04:08 Sibley-Linn Bodies Not Reportable 05/12/21 04:08 Kingsley Rings Not Reportable 05/12/21 04:08 [place] Cells Not Reportable 05/12/21 04:08 Bite Cells Not Reportable 05/12/21 04:08 Crenated Cell Not Reportable 05/12/21 04:08 Elliptocytes Not Reportable 05/12/21 04:08 Acanthocytes (Spur) Not Reportable 05/12/21 04:08 Rouleaux Not Reportable 05/12/21 04:08 Hemoglobin C Crystals Not Reportable 05/12/21 04:08 Schistocytes Not Reportable 05/12/21 04:08 Malaria parasites Not Reportable 05/12/21 04:08 Tahir Bodies Not Reportable 05/12/21 04:08 Hem Pathologist Commnt No 05/12/21 04:08 PT 16.9 Sec. (12.2-14.9) H 05/23/21 10:15 INR 1.24 (0.87-1.13) H 05/23/21 10:15 ABG pH 7.482 pH Units (7.350-7.450) H 05/19/21 14:14 ABG pCO2 42.9 mm Hg 05/19/21 14:14 ABG pO2 111.7 mm Hg (80.0-90.0) H 05/19/21 14:14 ABG HCO3 31.4 mmol/L (20.0-26.0) H 05/19/21 14:14 ABG O2 Saturation 98.2 % (95.0-99.0) 05/19/21 14:14 ABG O2 Content 15.2 (0.0-44) 05/19/21 14:14 ABG Base Excess 7.2 mmol/L (-2.0-3.0) H 05/19/21 14:14 ABG Hemoglobin 11.1 gm/dl (12.0-16.0) L 05/19/21 14:14 ABG Carboxyhemoglobin 1.1 % (0.0-5.0) 05/19/21 14:14 ABG Methemoglobin 0.6 % (0.0-1.5) 05/19/21 14:14 Oxyhemoglobin 96.4 % (95.0-99.0) 05/19/21 14:14 FiO2 100 % 05/19/21 14:14 Sodium 148 mmol/L (137-145) H D 05/29/21 05:07 Potassium 3.0 mmol/L (3.6-5.0) L 05/29/21 05:07 Chloride 108.0 mmol/L (98-107) H 05/29/21 05:07 Carbon Dioxide 30 mmol/L (22-30) 05/29/21 05:07 Anion Gap 13 mmol/L 05/29/21 05:07 BUN 16 mg/dL (7-17) 05/29/21 05:07 Creatinine 0.2 mg/dL (0.6-1.2) L 05/29/21 05:07 Estimated GFR > 60 ml/min 05/29/21 05:07 BUN/Creatinine Ratio 80 % 05/29/21 05:07 Glucose 155 mg/dL (65-100) H 05/29/21 05:07 POC Glucose 157 mg/dL (70-105) H 05/30/21 06:50 Hemoglobin A1c 5.2 % (4-6) 05/12/21 04:08 Lactic Acid 3.30 mmol/L (0.7-2.0) H* 05/12/21 Unknown Calcium 7.7 mg/dL (8.4-10.2) L 05/29/21 05:07 Phosphorus 2.60 mg/dL (2.5-4.5) 05/24/21 04:16 Magnesium 2.00 mg/dL (1.7-2.3) 05/24/21 04:16 Total Bilirubin 2.30 mg/dL (0.1-1.2) H 05/23/21 10:15 Direct Bilirubin 1.6 mg/dL (0-0.2) H 05/23/21 10:15 Indirect Bilirubin 0.7 mg/dL 05/23/21 10:15 AST 161 units/L (5-40) H 05/23/21 10:15 ALT 396 units/L (7-56) H 05/23/21 10:15 Alkaline Phosphatase 186 units/L (35-129) H 05/23/21 10:15 Total Protein 4.7 g/dL (6.3-8.2) L 05/23/21 10:15 Albumin 2.0 g/dL (3.9-5) L 05/23/21 10:15 Albumin/Globulin Ratio 0.7 % 05/23/21 10:15 Triglycerides 90 mg/dL (2-149) 05/23/21 10:15 Lipase 3 units/L (13-60) L 05/11/21 05:43 Urine Color Deisi (Yellow) 05/11/21 11:18 Urine Turbidity Clear (Clear) 05/11/21 11:18 Urine pH 6.0 (5.0-7.0) 05/11/21 11:18 Ur Specific [place] 1.035 (1.003-1.030) H 05/11/21 11:18 Urine Protein 100 mg/dl mg/dL (Negative) 05/11/21 11:18 Urine Glucose (UA) Neg mg/dL (Negative) 05/11/21 11:18 Urine Ketones Neg mg/dL (Negative) 05/11/21 11:18 Urine Blood Neg (Negative) 05/11/21 11:18 Urine Nitrite Neg (Negative) 05/11/21 11:18 Urine Bilirubin Neg (Negative) 05/11/21 11:18 Urine Urobilinogen < 2.0 mg/dL (<2.0) 05/11/21 11:18 Ur Leukocyte Esterase Neg (Negative) 05/11/21 11:18 Urine WBC (Auto) 2.0 /HPF (0.0-6.0) 05/11/21 11:18 Urine RBC (Auto) 1.0 /HPF (0.0-6.0) 05/11/21 11:18 Urine Mucus Few /HPF 05/11/21 11:18 Vancomycin Trough 25.3 ug/mL (5.0-20.0) H 05/14/21 15:20 Coronavirus (PCR) Positive (Negative) A 05/29/21 08:20 Hepatitis A IgM Ab Non-reactive (NonReactive) 05/12/21 12:30 Hep Bs Antigen Nonreactive (Negative) 05/12/21 12:30 Hep B Core IgM Ab Non-reactive (NonReactive) 05/12/21 12:30 Hepatitis C Antibody Non-reactive (NonReactive) 05/12/21 12:30 Rivas/IV: Voiding Method Indwelling Catheter Active Medications - Current Medications Current Medications: Generic Name Dose Route Start Last Admin Trade Name Freq PRN Reason Stop Dose Admin Acetaminophen 650 mg 05/11/21 21:40 05/14/21 20:06 Acetaminophen 325 Mg Tab PO 650 mg Q4H PRN Administration Pain MILD(1-3)/Fever >100.5/WOODS Alprazolam 1 mg 05/28/21 09:53 05/30/21 10:26 Alprazolam 1 Mg Tab PO 1 mg Q8H PRN Administration Anxiety Lipase/Protease/Amylase 1 each 05/22/21 16:30 Lipase 10,500/Protease 25,000/Amylase 43,750 (Units) Dr Cap FEEDTUBE PRN PRN For Clogged Feeding Tube Arformoterol Tartrate 15 mcg 05/12/21 08:00 05/30/21 09:35 Arformoterol 15 Mcg/2 Ml Nebu IH Not Given Q12HRT ABRAHAN Benzonatate 100 mg 05/12/21 15:53 05/23/21 22:02 Benzonatate 100 Mg Cap PO 100 mg Q8HR PRN Administration Cough Budesonide 0.5 mg 05/12/21 08:00 05/30/21 09:35 Budesonide 0.5 Mg/2 Ml Nebu IH Not Given Q12HRT ABRAHAN Dexamethasone 6 mg 05/28/21 10:00 05/30/21 10:24 Dexamethasone 2 Mg Tab FEEDTUBE 6 mg Q24HR ABRAHAN Administration Dextrose 50 ml 05/12/21 11:57 05/30/21 06:10 Dextrose 50% In Water (25gm) 50 Ml Syringe IV 50 ml Q30MIN PRN Administration Hypoglycemia Protocol Dicyclomine HCl 10 mg 05/23/21 14:00 05/30/21 10:24 Dicyclomine 10 Mg Cap PO 10 mg QID ABRAHAN Administration Enoxaparin Sodium 40 mg 05/30/21 22:00 Enoxaparin 40 Mg/0.4 Ml Inj SUB-Q QDAY@2200 [facility] Haloperidol Lactate 5 mg 05/19/21 15:00 05/28/21 03:05 Haloperidol Lactate 5 Mg/1 Ml Inj IV 5 mg Q8H PRN Administration Agitation Hydromorphone HCl 0.5 mg 05/26/21 14:58 05/30/21 10:25 Hydromorphone 1 Mg/1 Ml Inj IV 0.5 mg Q3H PRN Administration Pain , Severe (7-10) Insulin Glargine 20 units 05/22/21 22:00 05/29/21 22:07 Insulin Glargine 100 Units/Ml SUB-Q 20 units QHS [facility] Administration Insulin Human Lispro 0 unit 05/17/21 12:00 05/30/21 06:17 Insulin Lispro 100 Unit/Ml SUB-Q Not Given Q6HR [facility] Protocol Lansoprazole 30 mg 05/28/21 10:00 05/30/21 10:25 Lansoprazole 30 Mg Solutab FEEDTUBE 30 mg QDAY ABRAHAN Administration Metoclopramide HCl 10 mg 05/11/21 21:40 Metoclopramide 10 Mg/2 Ml Inj IV Q6H PRN Nausea And Vomiting Morphine Sulfate 2 mg 05/11/21 21:40 05/26/21 09:42 Morphine 2 Mg/1 Ml Inj IV 2 mg Q4H PRN Administration Pain, Moderate (4-6) Ondansetron HCl 4 mg 05/11/21 21:40 05/15/21 09:57 Ondansetron 4 Mg/2 Ml Inj IV 4 mg Q8H PRN Administration Nausea And Vomiting Simple Syrup 15 ml 05/22/21 16:30 Simple Syrup 15 Ml FEEDTUBE PRN PRN Hypoglycemia Simple Syrup 30 ml 05/22/21 16:30 Simple Syrup 15 Ml FEEDTUBE PRN PRN Hypoglycemia Sodium Bicarbonate 325 mg 05/22/21 16:30 Sodium Bicarbonate 325 Mg Tab FEEDTUBE PRN PRN For Clogged Feeding Tube Sodium Chloride 10 ml 05/11/21 22:00 05/30/21 10:25 Sodium Chloride 0.9% 10 Ml Flush Syringe IV 10 ml BID ABRAHAN Administration Sodium Chloride 10 ml 05/11/21 21:40 05/23/21 21:00 Sodium Chloride 0.9% 10 Ml Flush Syringe IV 10 ml PRN PRN Administration LINE FLUSH Nutrition/Malnutrition Assess - Dietary Evaluation Nutrition/Malnutrition Findings: Nutrition Notes Start: 05/13/21 09:47 Freq: Status: Active Protocol: Document 05/28/21 12:38 [email or web address] (Rec: 05/28/21 12:48 [facility] [id number]) Nutrition Notes Initial or Follow up Reassessment Current Diagnosis COPD,Respiratory Failure Other Pertinent Diagnosis Pancreatic CA, pulmonary fibrosis Current Diet TF - Vital AF 1.2 at 42ml/hr Labs/Tests Reviewed Pertinent Medications Decadron Height 5 ft 2 in Weight 64.4 kg [place] Body Weight (kg) 50.00 BMI 25.9 Weight change and time frame Current wt obtained from bed scale Weight Status Appropriate Subjective/Other Information Pt transferred to [facility] on . She remains dependent on BiPap. Per BUSINESS MANAGEMENT SPECIALIST eval on 05/23, pt safe for a pureed diet, however, tends to desaturate when off the BiPap. TF infusing at goal rate at time of visit (12:35). Pt tolerating TF. Percent of energy/protein needs met: 84% energy 100% pro Burn Absent Trauma Absent #2 Nutrition Diagnosis Malnutrition Diagnosis Progress(for reassessment Continues documentation) #1 Nutrition Diagnosis Altered GI function As Evidenced by Signs and Symptoms pt tolerating EN support Diagnosis Progress(for reassessment Resolved documentation) Is patient on ventilator? No Is Patient Ambulatory and/or Out of Bed No REE-([facility]-confined to bed) 1447.020 Calculation Used for Recommendations [place] [facility] Additional Notes Pro needs 1-1.2g/k-77g/ day Fluid needs 1ml/kcal Nutrition Intervention Nutrition Support: Change TF formula to Glucerna 1.2 at 50ml/hr Kcal 1,440 Protein (gm) 72 Carbohydrates (gm) 137 Fat (gm) 72 Fluid (mL) 966 Fiber (gm) 19 Goal #1 TF tolerance Goal #2 TF to meet at least 75% energy and pro needs Follow-Up By: 06/01/21 Additional Comments F/U: TF formula change and tolerance, resp status
--- NOTE | 2021-05-30 17:46 | Progress Note ---
Assessment and Plan 51-year-old female with history of COPD, Hypertension and pancreatic cancer comes in for right upper quadrant pain since 2 AM. Pain is about 10 on a scale of 1-10. Also associated with nausea and vomiting. Patient is on radiation therapy for pancreatic cancer. Patient also has a history of pulmonary fibrosis and is on 2 L nasal cannula oxygen. Vomited about 3-4 times. No fever or chills. No aggravating or relieving factors. No exposure to coronavirus. Patient has history of smoking. Not smoking. Denies alcohol or drug abuse. Patient is sleeping on BIPAP 15/10, rate 18, FIO2 85%. O2 saturation 100% . Mild increase in work of breathing. Patient afebrile. Has mild leukocytosis. Blood pressure 110/79, pulse 102, respirations 18. Chest xray done 05/13/21 reported No acute change since 03/19/2019. Interstitial lung disease or early pulmonary fibrosis is suspected and unchanged. Patient has angio CT of chest done on 05/11/[address] evidence for pulmonary embolism. Bilateral interstitial opacity remains with overall mild worsening Mild fluid-filled esophagus. The stomach is also distended with fluid. Chest xray done 05/24/21 reported Feeding tube courses beneath the diaphragm with tip not visualized. Improving airspace disease. Patient is on Budesonide/Brovanna aerosol treatments, Decadron, S/C Lovenox , Prevacid, I spent critical care time of 35 minutes, obtaining history, review the chart, Examine the patient, review labs and chest xray, Ct scan of chest, talking to the nursing staff and work up plan of treatment. - Patient Problems (1) Hypotension Current Visit: Yes Status: Acute Plan to address problem: Patients blood pressure improved. Patient is off Norepinephrine and vasopressin. (2) Sepsis Current Visit: Yes Status: Acute Plan to address problem: Patient was on cefepime and vancomycin. (3) Pancreatic cancer Current Visit: Yes Status: Chronic Qualifiers: Pancreatic malignancy location: body of pancreas Qualified Code(s): C25.1 - Malignant neoplasm of body of pancreas Plan to address problem: Management as per primary care and oncology. (4) Asthma exacerbation Current Visit: No Status: Acute Plan to address problem: Patient is on Brovanna/Budesonide aerosol treatments. Patient is on Decadron. S/C Lovenox Prevacid. (5) Bilateral pneumonia Current Visit: No Status: Acute Plan to address problem: Patient was on Cefepime and vancomycin. (6) Interstitial lung disease Current Visit: No Status: Acute Plan to address problem: Recommend TED, rheumatoid factor, CANCA, BRIGHT levels. PFTs as out patient. (7) HTN (hypertension) Current Visit: No Status: Chronic Qualifiers: Hypertension type: essential hypertension Plan to address problem: Management as per primary care. Subjective Date of service: 05/30/21 Principal diagnosis: Septic shock; Pulm fibrosis; Hypoxemic resp failure; COVID- 19 infxn Interval history: 51-year-old female with history of COPD, Hypertension and pancreatic cancer comes in for right upper quadrant pain since 2 AM. Pain is about 10 on a scale of 1-10. Also associated with nausea and vomiting. Patient is on radiation therapy for pancreatic cancer. Patient also has a history of pulmonary fibrosis and is on 2 L nasal cannula oxygen. Vomited about 3-4 times. No fever or chills. No aggravating or relieving factors. No exposure to coronavirus. Patient has history of smoking. Not smoking. Denies alcohol or drug abuse. Patient is sleeping on BIPAP 15/10, rate 18, FIO2 85%. O2 saturation 100% . Mild increase in work of breathing. Patient afebrile. Has mild leukocytosis. Blood pressure 110/79, pulse 102, respirations 18. Chest xray done 05/13/21 reported No acute change since 03/19/2019. Interstitial lung disease or early pulmonary fibrosis is suspected and unchanged. Patient has angio CT of chest done on 05/11/[address] evidence for pulmonary embolism. Bilateral interstitial opacity remains with overall mild worsening Mild fluid-filled esophagus. The stomach is also distended with fluid. Chest xray done 05/24/21 reported Feeding tube courses beneath the diaphragm with tip not visualized. Improving airspace disease. Patient is on Budesonide/Brovanna aerosol treatments, Decadron, S/C Lovenox , Prevacid, Objective Vital Signs - 12hr 05/30/21 05/30/21 05/30/21 06:00 06:30 07:00 Temperature Pulse Rate 114 H 104 H 96 H Pulse Rate [ From Monitor] Respiratory 34 H 30 H 25 H Rate Blood Pressure 119/77 119/77 101/68 O2 Sat by Pulse 100 100 100 Oximetry 05/30/21 05/30/21 05/30/21 07:30 08:00 08:30 Temperature 98.2 F Pulse Rate 97 H 97 H 98 H Pulse Rate [ 97 H From Monitor] Respiratory 18 32 H 26 H Rate Blood Pressure 101/68 108/72 108/72 O2 Sat by Pulse 100 Oximetry 05/30/21 05/30/21 05/30/21 09:00 09:30 09:45 Temperature Pulse Rate 105 H 107 H 106 H Pulse Rate [ From Monitor] Respiratory 25 H 31 H 40 H Rate Blood Pressure 116/77 116/77 116/77 O2 Sat by Pulse 100 100 Oximetry 05/30/21 05/30/21 05/30/21 10:00 10:30 11:00 Temperature Pulse Rate 107 H 102 H 101 H Pulse Rate [ From Monitor] Respiratory 31 H 16 17 Rate Blood Pressure 116/77 114/64 105/60 O2 Sat by Pulse 100 Oximetry 05/30/21 05/30/21 05/30/21 11:30 11:56 12:00 Temperature 98.0 F 98.0 F Pulse Rate 102 H 103 H Pulse Rate [ 103 H From Monitor] Respiratory 18 20 Rate Blood Pressure 105/60 98/65 O2 Sat by Pulse 100 100 Oximetry 05/30/21 05/30/21 05/30/21 12:30 13:00 13:30 Temperature Pulse Rate 105 H 103 H 108 H Pulse Rate [ From Monitor] Respiratory 22 19 24 Rate Blood Pressure 98/65 108/60 108/60 O2 Sat by Pulse 100 100 100 Oximetry 05/30/21 05/30/21 05/30/21 14:00 14:30 15:00 Temperature Pulse Rate 112 H 103 H 110 H Pulse Rate [ From Monitor] Respiratory 25 H 17 28 H Rate Blood Pressure 109/65 109/65 118/73 O2 Sat by Pulse 100 100 100 Oximetry 05/30/21 05/30/21 05/30/21 15:30 16:00 16:30 Temperature Pulse Rate 102 H 104 H 101 H Pulse Rate [ 101 H From Monitor] Respiratory 14 15 16 Rate Blood Pressure 118/73 99/71 99/71 O2 Sat by Pulse 100 100 100 Oximetry Constitutional: no acute distress, alert, asleep, other (mildly increased respiratory effort at rest ) Eyes: non-icteric ENT: oropharynx moist Neck: supple, no lymphadenopathy, no JVD Effort: mildly labored Ascultation: Bilateral: diminished breath sounds, rales (posterior bases) Percussion: Bilateral: not dull Cardiovascular: regular rate and rhythm, other (S1,S2) Gastrointestinal: normoactive bowel sounds, hypoactive bowel sounds, soft, non- distended (protuberant) Integumentary: normal Extremities: no cyanosis, no edema, pulses normal, other (right femoral CVL) Neurologic: normal mental status, non-focal exam, pupils equal and round, other (somnolent) Psychiatric: mood appropriate, affect normal, other (somnolenet) CBC and BMP: 05/25/21 04:25 05/29/21 05:07 ABG, PT/INR, D-dimer: ABG ABG pH 7.482 pH Units (7.350-7.450) H 05/19/21 14:14 ABG pCO2 42.9 mm Hg 05/19/21 14:14 ABG pO2 111.7 mm Hg (80.0-90.0) H 05/19/21 14:14 ABG O2 Saturation 98.2 % (95.0-99.0) 05/19/21 14:14 PT/INR, D-dimer PT 16.9 Sec. (12.2-14.9) H 05/23/21 10:15 INR 1.24 (0.87-1.13) H 05/23/21 10:15 Abnormal lab findings: Abnormal Labs 05/11/21 05/11/21 05/11/21 05:43 05:43 05:43 WBC RBC Hgb MCV 98 H RDW 17.7 H Plt Count Lymph % (Auto) 10.8 L Lymph # (Auto) 0.6 L Seg Neutrophils % 84.1 H Seg Neuts % (Manual) Lymphocytes % (Manual) Seg Neutrophils # Man Lymphocytes # (Manual) PT 16.0 H INR 1.16 H ABG pH ABG pO2 ABG HCO3 ABG Base Excess ABG Hemoglobin Oxyhemoglobin Sodium Potassium Chloride Carbon Dioxide 21 L BUN 4 L Creatinine 0.4 L Glucose POC Glucose Lactic Acid Calcium 8.3 L Phosphorus Magnesium Total Bilirubin 2.10 H Direct Bilirubin 1.4 H AST 335 H ALT 57 H Alkaline Phosphatase 339 H Total Protein Albumin 2.4 L Lipase 3 L Ur Specific [place] Vancomycin Trough Coronavirus (PCR) 05/11/21 05/11/21 05/12/21 11:18 12:28 04:08 WBC RBC Hgb MCV RDW Plt Count Lymph % (Auto) Lymph # (Auto) Seg Neutrophils % Seg Neuts % (Manual) Lymphocytes % (Manual) Seg Neutrophils # Man Lymphocytes # (Manual) PT INR ABG pH ABG pO2 ABG HCO3 ABG Base Excess ABG Hemoglobin Oxyhemoglobin Sodium Potassium Chloride Carbon Dioxide BUN Creatinine Glucose POC Glucose Lactic Acid 4.20 H* 4.50 H* Calcium Phosphorus Magnesium Total Bilirubin Direct Bilirubin AST ALT Alkaline Phosphatase Total Protein Albumin Lipase Ur Specific [place] 1.035 H Vancomycin Trough Coronavirus (PCR) 05/12/21 05/12/21 05/12/21 04:08 04:08 09:47 WBC 22.8 H RBC 3.39 L Hgb MCV 98 H RDW 17.7 H Plt Count Lymph % (Auto) Lymph # (Auto) Seg Neutrophils % Seg Neuts % (Manual) 85.5 H Lymphocytes % (Manual) 2.0 L Seg Neutrophils # Man 19.5 H Lymphocytes # (Manual) 0.5 L PT INR ABG pH ABG pO2 ABG HCO3 ABG Base Excess ABG Hemoglobin Oxyhemoglobin Sodium Potassium 3.3 L Chloride 108.9 H Carbon Dioxide 17 L BUN 4 L Creatinine 0.5 L Glucose 106 H POC Glucose Lactic Acid 2.60 H* Calcium 6.4 L D Phosphorus Magnesium Total Bilirubin 2.10 H Direct Bilirubin AST 156 H ALT 61 H Alkaline Phosphatase 317 H Total Protein 5.4 L D Albumin 1.8 L Lipase Ur Specific [place] Vancomycin Trough Coronavirus (PCR) 05/12/21 05/12/21 05/12/21 11:47 12:30 12:36 WBC RBC Hgb MCV RDW Plt Count Lymph % (Auto) Lymph # (Auto) Seg Neutrophils % Seg Neuts % (Manual) Lymphocytes % (Manual) Seg Neutrophils # Man Lymphocytes # (Manual) PT INR ABG pH ABG pO2 ABG HCO3 ABG Base Excess ABG Hemoglobin Oxyhemoglobin Sodium Potassium Chloride Carbon Dioxide BUN Creatinine Glucose POC Glucose 59 L 120 H Lactic Acid 2.50 H* Calcium Phosphorus Magnesium Total Bilirubin Direct Bilirubin AST ALT Alkaline Phosphatase Total Protein Albumin Lipase Ur Specific [place] Vancomycin Trough Coronavirus (PCR) 05/12/21 05/12/21 05/13/21 23:45 Unknown 04:00 WBC 19.8 H RBC 3.52 L Hgb MCV 98 H RDW 18.5 H Plt Count Lymph % (Auto) Lymph # (Auto) Seg Neutrophils % Seg Neuts % (Manual) Lymphocytes % (Manual) Seg Neutrophils # Man Lymphocytes # (Manual) PT INR ABG pH ABG pO2 ABG HCO3 ABG Base Excess ABG Hemoglobin Oxyhemoglobin Sodium Potassium Chloride Carbon Dioxide BUN Creatinine Glucose POC Glucose 119 H Lactic Acid 3.30 H* Calcium Phosphorus Magnesium Total Bilirubin Direct Bilirubin AST ALT Alkaline Phosphatase Total Protein Albumin Lipase Ur Specific [place] Vancomycin Trough Coronavirus (PCR) 05/13/21 05/13/21 05/13/21 04:00 05:42 12:19 WBC RBC Hgb MCV RDW Plt Count Lymph % (Auto) Lymph # (Auto) Seg Neutrophils % Seg Neuts % (Manual) Lymphocytes % (Manual) Seg Neutrophils # Man Lymphocytes # (Manual) PT INR ABG pH ABG pO2 ABG HCO3 ABG Base Excess ABG Hemoglobin Oxyhemoglobin Sodium Potassium 3.4 L Chloride 107.1 H Carbon Dioxide 19 L BUN 4 L Creatinine 0.4 L Glucose 157 H POC Glucose 143 H 110 H Lactic Acid Calcium 7.4 L D Phosphorus 1.60 L Magnesium 1.50 L Total Bilirubin 1.40 H Direct Bilirubin AST 95 H ALT Alkaline Phosphatase 328 H Total Protein 5.5 L Albumin 1.6 L Lipase Ur Specific [place] Vancomycin Trough Coronavirus (PCR) 05/14/21 05/14/21 05/14/21 06:15 06:15 10:25 WBC 11.7 H RBC 3.41 L Hgb MCV 98 H RDW 18.6 H Plt Count Lymph % (Auto) Lymph # (Auto) Seg Neutrophils % Seg Neuts % (Manual) Lymphocytes % (Manual) Seg Neutrophils # Man Lymphocytes # (Manual) PT INR ABG pH ABG pO2 76.0 L ABG HCO3 27.2 H ABG Base Excess ABG Hemoglobin 11.5 L Oxyhemoglobin 94.4 L Sodium Potassium 3.2 L Chloride Carbon Dioxide BUN 6 L Creatinine 0.5 L Glucose 103 H POC Glucose Lactic Acid Calcium 7.3 L Phosphorus 1.70 L Magnesium Total Bilirubin Direct Bilirubin AST 66 H ALT Alkaline Phosphatase 295 H Total Protein 5.3 L Albumin 1.8 L Lipase Ur Specific [place] Vancomycin Trough Coronavirus (PCR) 05/14/21 05/14/21 05/14/21 15:20 15:20 17:26 WBC RBC Hgb MCV RDW Plt Count Lymph % (Auto) Lymph # (Auto) Seg Neutrophils % Seg Neuts % (Manual) Lymphocytes % (Manual) Seg Neutrophils # Man Lymphocytes # (Manual) PT INR ABG pH ABG pO2 ABG HCO3 ABG Base Excess ABG Hemoglobin Oxyhemoglobin Sodium 146 H D Potassium Chloride 108.4 H Carbon Dioxide BUN 5 L Creatinine 0.5 L Glucose POC Glucose 63 L Lactic Acid Calcium 7.6 L Phosphorus Magnesium Total Bilirubin Direct Bilirubin AST ALT Alkaline Phosphatase Total Protein Albumin Lipase Ur Specific [place] Vancomycin Trough 25.3 H Coronavirus (PCR) 05/14/21 05/15/21 05/15/21 21:27 00:03 00:29 WBC RBC Hgb MCV RDW Plt Count Lymph % (Auto) Lymph # (Auto) Seg Neutrophils % Seg Neuts % (Manual) Lymphocytes % (Manual) Seg Neutrophils # Man Lymphocytes # (Manual) PT INR ABG pH ABG pO2 ABG HCO3 ABG Base Excess ABG Hemoglobin Oxyhemoglobin Sodium Potassium Chloride Carbon Dioxide BUN Creatinine Glucose POC Glucose 52 L 54 L 129 H Lactic Acid Calcium Phosphorus Magnesium Total Bilirubin Direct Bilirubin AST ALT Alkaline Phosphatase Total Protein Albumin Lipase Ur Specific [place] Vancomycin Trough Coronavirus (PCR) 05/15/21 05/15/21 05/15/21 04:45 04:45 11:58 WBC RBC 3.24 L Hgb MCV 98 H RDW 18.5 H Plt Count 122 L Lymph % (Auto) 7.4 L Lymph # (Auto) 0.6 L Seg Neutrophils % 81.2 H Seg Neuts % (Manual) Lymphocytes % (Manual) Seg Neutrophils # Man Lymphocytes # (Manual) PT INR ABG pH ABG pO2 ABG HCO3 ABG Base Excess ABG Hemoglobin Oxyhemoglobin Sodium 146 H Potassium 3.1 L Chloride 108.8 H Carbon Dioxide BUN 6 L Creatinine Glucose 121 H POC Glucose 68 L Lactic Acid Calcium 7.5 L Phosphorus 2.30 L D Magnesium Total Bilirubin 1.90 H Direct Bilirubin AST 55 H ALT Alkaline Phosphatase 231 H Total Protein 5.4 L Albumin 1.5 L Lipase Ur Specific [place] Vancomycin Trough Coronavirus (PCR) 05/15/21 05/16/21 05/16/21 13:50 00:06 00:43 WBC RBC Hgb MCV RDW Plt Count Lymph % (Auto) Lymph # (Auto) Seg Neutrophils % Seg Neuts % (Manual) Lymphocytes % (Manual) Seg Neutrophils # Man Lymphocytes # (Manual) PT INR ABG pH ABG pO2 ABG HCO3 ABG Base Excess ABG Hemoglobin Oxyhemoglobin Sodium Potassium Chloride Carbon Dioxide BUN Creatinine Glucose POC Glucose 147 H 54 L 116 H Lactic Acid Calcium Phosphorus Magnesium Total Bilirubin Direct Bilirubin AST ALT Alkaline Phosphatase Total Protein Albumin Lipase Ur Specific [place] Vancomycin Trough Coronavirus (PCR) 05/16/21 05/16/21 05/16/21 04:31 04:31 05:58 WBC RBC 3.12 L Hgb 9.8 L MCV 98 H RDW 18.2 H Plt Count 115 L Lymph % (Auto) Lymph # (Auto) Seg Neutrophils % Seg Neuts % (Manual) Lymphocytes % (Manual) Seg Neutrophils # Man Lymphocytes # (Manual) PT INR ABG pH ABG pO2 ABG HCO3 ABG Base Excess ABG Hemoglobin Oxyhemoglobin Sodium 146 H Potassium 3.2 L Chloride Carbon Dioxide BUN 5 L Creatinine 0.5 L Glucose POC Glucose 61 L Lactic Acid Calcium 7.2 L Phosphorus 2.30 L Magnesium Total Bilirubin Direct Bilirubin AST ALT Alkaline Phosphatase Total Protein Albumin Lipase Ur Specific [place] Vancomycin Trough Coronavirus (PCR) 05/16/21 05/16/21 05/17/21 08:11 23:42 04:15 WBC RBC Hgb MCV RDW Plt Count Lymph % (Auto) Lymph # (Auto) Seg Neutrophils % Seg Neuts % (Manual) Lymphocytes % (Manual) Seg Neutrophils # Man Lymphocytes # (Manual) PT INR ABG pH ABG pO2 ABG HCO3 ABG Base Excess ABG Hemoglobin Oxyhemoglobin Sodium Potassium Chloride Carbon Dioxide BUN Creatinine Glucose POC Glucose 58 L 200 H Lactic Acid Calcium Phosphorus Magnesium Total Bilirubin 1.70 H Direct Bilirubin 1.5 H AST 43 H ALT Alkaline Phosphatase 196 H Total Protein 5.4 L Albumin 1.6 L Lipase Ur Specific [place] Vancomycin Trough Coronavirus (PCR) 05/17/21 05/17/21 05/17/21 04:15 04:15 05:07 WBC RBC 3.26 L Hgb MCV 98 H RDW 18.9 H Plt Count 114 L Lymph % (Auto) Lymph # (Auto) Seg Neutrophils % Seg Neuts % (Manual) Lymphocytes % (Manual) Seg Neutrophils # Man Lymphocytes # (Manual) PT INR ABG pH ABG pO2 ABG HCO3 ABG Base Excess ABG Hemoglobin Oxyhemoglobin Sodium Potassium Chloride Carbon Dioxide 35 H BUN 5 L Creatinine Glucose 274 H POC Glucose 249 H Lactic Acid Calcium 7.7 L Phosphorus 1.50 L D Magnesium Total Bilirubin Direct Bilirubin AST ALT Alkaline Phosphatase Total Protein Albumin Lipase Ur Specific [place] Vancomycin Trough Coronavirus (PCR) 05/17/21 05/17/21 05/17/21 11:56 16:29 23:37 WBC RBC Hgb MCV RDW Plt Count Lymph % (Auto) Lymph # (Auto) Seg Neutrophils % Seg Neuts % (Manual) Lymphocytes % (Manual) Seg Neutrophils # Man Lymphocytes # (Manual) PT INR ABG pH ABG pO2 ABG HCO3 ABG Base Excess ABG Hemoglobin Oxyhemoglobin Sodium Potassium Chloride Carbon Dioxide BUN Creatinine Glucose POC Glucose 176 H 219 H 150 H Lactic Acid Calcium Phosphorus Magnesium Total Bilirubin Direct Bilirubin AST ALT Alkaline Phosphatase Total Protein Albumin Lipase Ur Specific [place] Vancomycin Trough Coronavirus (PCR) 05/18/21 05/18/21 05/18/21 04:00 05:22 09:00 WBC RBC 3.34 L Hgb MCV RDW 18.8 H Plt Count Lymph % (Auto) Lymph # (Auto) Seg Neutrophils % Seg Neuts % (Manual) Lymphocytes % (Manual) Seg Neutrophils # Man Lymphocytes # (Manual) PT INR ABG pH ABG pO2 ABG HCO3 ABG Base Excess ABG Hemoglobin Oxyhemoglobin Sodium Potassium 5.4 H D Chloride 97.5 L Carbon Dioxide 33 H BUN Creatinine 0.4 L Glucose 461 H POC Glucose 181 H Lactic Acid Calcium 7.2 L Phosphorus 5.00 H D Magnesium Total Bilirubin Direct Bilirubin AST ALT Alkaline Phosphatase Total Protein Albumin Lipase Ur Specific [place] Vancomycin Trough Coronavirus (PCR) 05/18/21 05/18/21 05/18/21 11:16 12:50 16:29 WBC RBC Hgb MCV RDW Plt Count Lymph % (Auto) Lymph # (Auto) Seg Neutrophils % Seg Neuts % (Manual) Lymphocytes % (Manual) Seg Neutrophils # Man Lymphocytes # (Manual) PT INR ABG pH ABG pO2 ABG HCO3 ABG Base Excess ABG Hemoglobin Oxyhemoglobin Sodium Potassium 3.4 L D Chloride Carbon Dioxide 36 H BUN 19 H Creatinine 0.4 L Glucose 231 H POC Glucose 168 H 196 H Lactic Acid Calcium 7.5 L Phosphorus 1.80 L D Magnesium Total Bilirubin Direct Bilirubin AST ALT Alkaline Phosphatase Total Protein Albumin Lipase Ur Specific [place] Vancomycin Trough Coronavirus (PCR) 05/19/21 05/19/21 05/19/21 00:05 04:08 05:07 WBC RBC Hgb MCV RDW Plt Count Lymph % (Auto) Lymph # (Auto) Seg Neutrophils % Seg Neuts % (Manual) Lymphocytes % (Manual) Seg Neutrophils # Man Lymphocytes # (Manual) PT INR ABG pH ABG pO2 ABG HCO3 ABG Base Excess ABG Hemoglobin Oxyhemoglobin Sodium 146 H Potassium Chloride Carbon Dioxide 35 H BUN 25 H Creatinine 0.4 L Glucose 218 H POC Glucose 164 H 203 H Lactic Acid Calcium 7.2 L Phosphorus Magnesium Total Bilirubin Direct Bilirubin AST ALT Alkaline Phosphatase Total Protein Albumin Lipase Ur Specific [place] Vancomycin Trough Coronavirus (PCR) 05/19/21 05/19/21 05/19/21 12:16 14:14 17:11 WBC RBC Hgb MCV RDW Plt Count Lymph % (Auto) Lymph # (Auto) Seg Neutrophils % Seg Neuts % (Manual) Lymphocytes % (Manual) Seg Neutrophils # Man Lymphocytes # (Manual) PT INR ABG pH 7.482 H ABG pO2 111.7 H ABG HCO3 31.4 H ABG Base Excess 7.2 H ABG Hemoglobin 11.1 L Oxyhemoglobin Sodium Potassium Chloride Carbon Dioxide BUN Creatinine Glucose POC Glucose 206 H 194 H Lactic Acid Calcium Phosphorus Magnesium Total Bilirubin Direct Bilirubin AST ALT Alkaline Phosphatase Total Protein Albumin Lipase Ur Specific [place] Vancomycin Trough Coronavirus (PCR) 05/20/21 05/20/21 05/20/21 00:01 04:30 06:09 WBC RBC Hgb MCV RDW Plt Count Lymph % (Auto) Lymph # (Auto) Seg Neutrophils % Seg Neuts % (Manual) Lymphocytes % (Manual) Seg Neutrophils # Man Lymphocytes # (Manual) PT INR ABG pH ABG pO2 ABG HCO3 ABG Base Excess ABG Hemoglobin Oxyhemoglobin Sodium Potassium 3.5 L Chloride Carbon Dioxide BUN 24 H Creatinine 0.3 L Glucose 254 H POC Glucose 209 H 210 H Lactic Acid Calcium 7.5 L Phosphorus 1.90 L D Magnesium Total Bilirubin 1.60 H Direct Bilirubin AST 201 H ALT 170 H Alkaline Phosphatase 169 H Total Protein 5.3 L Albumin 1.9 L Lipase Ur Specific [place] Vancomycin Trough Coronavirus (PCR) 05/20/21 05/20/21 05/20/21 11:41 16:47 22:21 WBC RBC Hgb MCV RDW Plt Count Lymph % (Auto) Lymph # (Auto) Seg Neutrophils % Seg Neuts % (Manual) Lymphocytes % (Manual) Seg Neutrophils # Man Lymphocytes # (Manual) PT INR ABG pH ABG pO2 ABG HCO3 ABG Base Excess ABG Hemoglobin Oxyhemoglobin Sodium Potassium Chloride Carbon Dioxide BUN Creatinine Glucose POC Glucose 158 H 232 H 211 H Lactic Acid Calcium Phosphorus Magnesium Total Bilirubin Direct Bilirubin AST ALT Alkaline Phosphatase Total Protein Albumin Lipase Ur Specific [place] Vancomycin Trough Coronavirus (PCR) 05/21/21 05/21/21 05/21/21 00:35 04:00 04:00 WBC RBC 3.28 L Hgb MCV RDW 18.7 H Plt Count 125 L Lymph % (Auto) Lymph # (Auto) Seg Neutrophils % Seg Neuts % (Manual) Lymphocytes % (Manual) Seg Neutrophils # Man Lymphocytes # (Manual) PT INR ABG pH ABG pO2 ABG HCO3 ABG Base Excess ABG Hemoglobin Oxyhemoglobin Sodium Potassium 5.1 H D Chloride 108.7 H Carbon Dioxide BUN 21 H Creatinine 0.2 L Glucose 242 H POC Glucose 230 H Lactic Acid Calcium 7.3 L Phosphorus Magnesium Total Bilirubin Direct Bilirubin AST ALT Alkaline Phosphatase Total Protein Albumin Lipase Ur Specific [place] Vancomycin Trough Coronavirus (PCR) 05/21/21 05/21/21 05/21/21 05:08 11:47 17:43 WBC RBC Hgb MCV RDW Plt Count Lymph % (Auto) Lymph # (Auto) Seg Neutrophils % Seg Neuts % (Manual) Lymphocytes % (Manual) Seg Neutrophils # Man Lymphocytes # (Manual) PT INR ABG pH ABG pO2 ABG HCO3 ABG Base Excess ABG Hemoglobin Oxyhemoglobin Sodium Potassium Chloride Carbon Dioxide BUN Creatinine Glucose POC Glucose 196 H 139 H 147 H Lactic Acid Calcium Phosphorus Magnesium Total Bilirubin Direct Bilirubin AST ALT Alkaline Phosphatase Total Protein Albumin Lipase Ur Specific [place] Vancomycin Trough Coronavirus (PCR) 05/21/21 05/21/21 05/22/21 17:57 23:32 04:16 WBC RBC Hgb MCV RDW Plt Count Lymph % (Auto) Lymph # (Auto) Seg Neutrophils % Seg Neuts % (Manual) Lymphocytes % (Manual) Seg Neutrophils # Man Lymphocytes # (Manual) PT INR ABG pH ABG pO2 ABG HCO3 ABG Base Excess ABG Hemoglobin Oxyhemoglobin Sodium Potassium 5.2 H Chloride Carbon Dioxide BUN 19 H Creatinine 0.2 L Glucose 154 H POC Glucose 218 H 185 H Lactic Acid Calcium 7.5 L Phosphorus Magnesium Total Bilirubin 3.00 H Direct Bilirubin 2.3 H AST 437 H ALT 462 H Alkaline Phosphatase 186 H Total Protein 5.5 L Albumin 1.9 L Lipase Ur Specific [place] Vancomycin Trough Coronavirus (PCR) 05/22/21 05/22/21 05/22/21 04:30 04:30 04:30 WBC RBC Hgb MCV RDW Plt Count Lymph % (Auto) Lymph # (Auto) Seg Neutrophils % Seg Neuts % (Manual) Lymphocytes % (Manual) Seg Neutrophils # Man Lymphocytes # (Manual) PT 19.5 H INR 1.49 H ABG pH ABG pO2 ABG HCO3 ABG Base Excess ABG Hemoglobin Oxyhemoglobin Sodium 134 L Potassium Chloride Carbon Dioxide BUN 19 H Creatinine 0.2 L Glucose 208 H POC Glucose Lactic Acid Calcium 7.2 L Phosphorus 2.40 L D Magnesium Total Bilirubin 2.20 H Direct Bilirubin AST 350 H ALT 496 H Alkaline Phosphatase 167 H Total Protein 4.8 L Albumin 1.7 L Lipase Ur Specific [place] Vancomycin Trough Coronavirus (PCR) 05/22/21 05/22/21 05/22/21 11:59 17:16 23:07 WBC RBC Hgb MCV RDW Plt Count Lymph % (Auto) Lymph # (Auto) Seg Neutrophils % Seg Neuts % (Manual) Lymphocytes % (Manual) Seg Neutrophils # Man Lymphocytes # (Manual) PT INR ABG pH ABG pO2 ABG HCO3 ABG Base Excess ABG Hemoglobin Oxyhemoglobin Sodium Potassium Chloride Carbon Dioxide BUN Creatinine Glucose POC Glucose 204 H 244 H 226 H Lactic Acid Calcium Phosphorus Magnesium Total Bilirubin Direct Bilirubin AST ALT Alkaline Phosphatase Total Protein Albumin Lipase Ur Specific [place] Vancomycin Trough Coronavirus (PCR) 05/23/21 05/23/21 05/23/21 05:09 10:15 10:15 WBC RBC Hgb MCV RDW Plt Count Lymph % (Auto) Lymph # (Auto) Seg Neutrophils % Seg Neuts % (Manual) Lymphocytes % (Manual) Seg Neutrophils # Man Lymphocytes # (Manual) PT 16.9 H INR 1.24 H ABG pH ABG pO2 ABG HCO3 ABG Base Excess ABG Hemoglobin Oxyhemoglobin Sodium 131 L Potassium Chloride 97.5 L Carbon Dioxide BUN Creatinine < 0.2 L Glucose 248 H POC Glucose 175 H Lactic Acid Calcium 7.4 L Phosphorus Magnesium 1.60 L Total Bilirubin Direct Bilirubin AST ALT Alkaline Phosphatase Total Protein Albumin Lipase Ur Specific [place] Vancomycin Trough Coronavirus (PCR) 05/23/21 05/23/21 05/24/21 10:15 21:46 04:16 WBC RBC Hgb MCV RDW Plt Count Lymph % (Auto) Lymph # (Auto) Seg Neutrophils % Seg Neuts % (Manual) Lymphocytes % (Manual) Seg Neutrophils # Man Lymphocytes # (Manual) PT INR ABG pH ABG pO2 ABG HCO3 ABG Base Excess ABG Hemoglobin Oxyhemoglobin Sodium 130 L Potassium 3.5 L Chloride 97.1 L Carbon Dioxide BUN Creatinine 0.2 L Glucose 235 H POC Glucose 190 H Lactic Acid Calcium 6.8 L Phosphorus Magnesium Total Bilirubin 2.30 H Direct Bilirubin 1.6 H AST 161 H ALT 396 H Alkaline Phosphatase 186 H Total Protein 4.7 L Albumin 2.0 L Lipase Ur Specific [place] Vancomycin Trough Coronavirus (PCR) 05/24/21 05/25/21 05/25/21 05:32 04:25 04:25 WBC 11.7 H RBC 3.28 L Hgb MCV RDW 19.9 H Plt Count Lymph % (Auto) Lymph # (Auto) Seg Neutrophils % Seg Neuts % (Manual) Lymphocytes % (Manual) Seg Neutrophils # Man Lymphocytes # (Manual) PT INR ABG pH ABG pO2 ABG HCO3 ABG Base Excess ABG Hemoglobin Oxyhemoglobin Sodium 135 L Potassium 3.4 L Chloride Carbon Dioxide BUN Creatinine 0.2 L Glucose 105 H POC Glucose 208 H Lactic Acid Calcium 7.6 L Phosphorus Magnesium Total Bilirubin Direct Bilirubin AST ALT Alkaline Phosphatase Total Protein Albumin Lipase Ur Specific [place] Vancomycin Trough Coronavirus (PCR) 05/26/21 05/26/21 05/26/21 11:37 16:57 20:59 WBC RBC Hgb MCV RDW Plt Count Lymph % (Auto) Lymph # (Auto) Seg Neutrophils % Seg Neuts % (Manual) Lymphocytes % (Manual) Seg Neutrophils # Man Lymphocytes # (Manual) PT INR ABG pH ABG pO2 ABG HCO3 ABG Base Excess ABG Hemoglobin Oxyhemoglobin Sodium Potassium Chloride Carbon Dioxide BUN Creatinine Glucose POC Glucose 136 H 214 H 137 H Lactic Acid Calcium Phosphorus Magnesium Total Bilirubin Direct Bilirubin AST ALT Alkaline Phosphatase Total Protein Albumin Lipase Ur Specific [place] Vancomycin Trough Coronavirus (PCR) 05/26/21 05/27/21 05/27/21 23:52 05:40 16:49 WBC RBC Hgb MCV RDW Plt Count Lymph % (Auto) Lymph # (Auto) Seg Neutrophils % Seg Neuts % (Manual) Lymphocytes % (Manual) Seg Neutrophils # Man Lymphocytes # (Manual) PT INR ABG pH ABG pO2 ABG HCO3 ABG Base Excess ABG Hemoglobin Oxyhemoglobin Sodium Potassium Chloride Carbon Dioxide BUN Creatinine Glucose POC Glucose 111 H 144 H 213 H Lactic Acid Calcium Phosphorus Magnesium Total Bilirubin Direct Bilirubin AST ALT Alkaline Phosphatase Total Protein Albumin Lipase Ur Specific [place] Vancomycin Trough Coronavirus (PCR) 05/27/21 05/27/21 05/28/21 21:07 23:57 11:59 WBC RBC Hgb MCV RDW Plt Count Lymph % (Auto) Lymph # (Auto) Seg Neutrophils % Seg Neuts % (Manual) Lymphocytes % (Manual) Seg Neutrophils # Man Lymphocytes # (Manual) PT INR ABG pH ABG pO2 ABG HCO3 ABG Base Excess ABG Hemoglobin Oxyhemoglobin Sodium Potassium Chloride Carbon Dioxide BUN Creatinine Glucose POC Glucose 135 H 157 H 130 H Lactic Acid Calcium Phosphorus Magnesium Total Bilirubin Direct Bilirubin AST ALT Alkaline Phosphatase Total Protein Albumin Lipase Ur Specific [place] Vancomycin Trough Coronavirus (PCR) 05/28/21 05/29/21 05/29/21 17:05 01:03 05:07 WBC RBC Hgb MCV RDW Plt Count Lymph % (Auto) Lymph # (Auto) Seg Neutrophils % Seg Neuts % (Manual) Lymphocytes % (Manual) Seg Neutrophils # Man Lymphocytes # (Manual) PT INR ABG pH ABG pO2 ABG HCO3 ABG Base Excess ABG Hemoglobin Oxyhemoglobin Sodium 148 H D Potassium 3.0 L Chloride 108.0 H Carbon Dioxide BUN Creatinine 0.2 L Glucose 155 H POC Glucose 207 H 204 H Lactic Acid Calcium 7.7 L Phosphorus Magnesium Total Bilirubin Direct Bilirubin AST ALT Alkaline Phosphatase Total Protein Albumin Lipase Ur Specific [place] Vancomycin Trough Coronavirus (PCR) 05/29/21 05/29/21 05/29/21 08:20 11:30 17:53 WBC RBC Hgb MCV RDW Plt Count Lymph % (Auto) Lymph # (Auto) Seg Neutrophils % Seg Neuts % (Manual) Lymphocytes % (Manual) Seg Neutrophils # Man Lymphocytes # (Manual) PT INR ABG pH ABG pO2 ABG HCO3 ABG Base Excess ABG Hemoglobin Oxyhemoglobin Sodium Potassium Chloride Carbon Dioxide BUN Creatinine Glucose POC Glucose 119 H 199 H Lactic Acid Calcium Phosphorus Magnesium Total Bilirubin Direct Bilirubin AST ALT Alkaline Phosphatase Total Protein Albumin Lipase Ur Specific [place] Vancomycin Trough Coronavirus (PCR) Positive A 05/30/21 05/30/21 05/30/21 00:37 05:54 06:50 WBC RBC Hgb MCV RDW Plt Count Lymph % (Auto) Lymph # (Auto) Seg Neutrophils % Seg Neuts % (Manual) Lymphocytes % (Manual) Seg Neutrophils # Man Lymphocytes # (Manual) PT INR ABG pH ABG pO2 ABG HCO3 ABG Base Excess ABG Hemoglobin Oxyhemoglobin Sodium Potassium Chloride Carbon Dioxide BUN Creatinine Glucose POC Glucose 117 H 56 L 157 H Lactic Acid Calcium Phosphorus Magnesium Total Bilirubin Direct Bilirubin AST ALT Alkaline Phosphatase Total Protein Albumin Lipase Ur Specific [place] Vancomycin Trough Coronavirus (PCR) 05/30/21 17:18 WBC RBC Hgb MCV RDW Plt Count Lymph % (Auto) Lymph # (Auto) Seg Neutrophils % Seg Neuts % (Manual) Lymphocytes % (Manual) Seg Neutrophils # Man Lymphocytes # (Manual) PT INR ABG pH ABG pO2 ABG HCO3 ABG Base Excess ABG Hemoglobin Oxyhemoglobin Sodium Potassium Chloride Carbon Dioxide BUN Creatinine Glucose POC Glucose 181 H Lactic Acid Calcium Phosphorus Magnesium Total Bilirubin Direct Bilirubin AST ALT Alkaline Phosphatase Total Protein Albumin Lipase Ur Specific [place] Vancomycin Trough Coronavirus (PCR) Allied health notes reviewed: nursing
[2021-05-30] MEDS: ENOXAPARIN 40 MG/0.4 ML INJ SUB-Q SCH (21:20)
[2021-05-30] MEDS: INSULIN GLARGINE 100 UNITS/ML SUB-Q SCH (21:22)
[2021-05-31] MEDS: INSULIN LISPRO 100 UNIT/ML SUB-Q SCH ×4 (00:03→18:00)
[2021-05-31] MEDS: HYDROmorphone 1 MG/1 ML INJ IV PRN ×6 (01:21→22:42)
[2021-05-31] MEDS: HALOPERIDOL LACTATE 5 MG/1 ML INJ IV PRN ×3 (02:58→22:13)
[2021-05-31] MEDS: ALPRAZolam 1 MG TAB PO PRN ×2 (08:01→16:24)
[2021-05-31] MEDS: DEXAMETHASONE 2 MG TAB FEEDTUBE SCH (09:21)
[2021-05-31] MEDS: DICYCLOMINE 10 MG CAP PO SCH ×5 (09:22→21:09)
[2021-05-31] MEDS: ARFORMOTEROL 15 MCG/2 ML NEBU IH SCH ×2 (09:22→20:57)
[2021-05-31] MEDS: BUDESONIDE 0.5 MG/2 ML NEBU IH SCH ×2 (09:23→20:57)
[2021-05-31] MEDS: LANSOPRAZOLE 30 MG SOLUTAB FEEDTUBE SCH (09:27)
--- NOTE | 2021-05-31 12:36 | Progress Note ---
Assessment and Plan Assessment and plan: This is a 51-year-old female with COPD, pancreatic cancer and radiation, s/p pancreatic stent placement, pulmonary fibrosis, hypertension and chronic respiratory failure on 2 L oxygen via nasal cannula who presented to emergency department on 05/11 with complaints of right upper quadrant pain which started approximately at 0200 with nausea and vomiting. Work-up in the emergency department included a CTA chest which showed no pulmonary embolism, mild fluid- filled esophagus and distended stomach with bilateral interstitial opacity in the chest, and CT abdomen/pelvis with contrast which showed persistent pancreatic carcinoma with indwelling metallic stent which is suspected to be occluded. Lab work revealed leukocytosis, transaminitis and lactic acidosis. Patient became hypotensive in the emergency department and required 3 L of IV fluid and was eventually started on vasopressors after placement of femoral central line. Patient was started on empiric antibiotics. Admitted to the hospitalist service with consults to GI and CCM for transaminitis, possible sepsis, and lactic acidosis. Acute on chronic hypoxic respiratory failure Septic shock Transaminitis Hyperbilirubinemia Pulmonary fibrosis/ILD Pancreatic cancer -CT abdomen/pelvis showed pancreatic cancer with metallic stent with possible occlusion, mild pelvic fluid and mild colonic thickening Thrombocytopenia 05/12: Patient remains on high-dose Levophed and vasopressin. Given 1 L LR bolus. GI would like an MRCP to be conducted which has been ordered. Patient cleared for sips of water. Added Tessalon due to severe cough. Potassium repleted. Covid PCR negative. 05/13: Remains on Levophed and vasopressin has been off since yesterday evening. Started on stress dose steroids. MRCP pending. Hypokalemia, hypomagnesemia and hypophosphatemia repleted. Liver enzymes trending down. Started on D5 normal saline yesterday. 05/14: Patient with worsen respiratory status this am, tachypneic with increased O2 requirement. On full support on the Bipap this am with worsening diffuse bilateral opacities on CXR, s/p X1 dose of IV lasix overnight. Patient remains afebrile with no leukocytosis. Will continue IV Lasix X3 doses, f/u CXR in the am. D/W CCM due to patient worsening respiratory status hold on MRCP for today. Patient is off Levophed this am, leave pressors on standby might need to be put back on low dose pressors with IV diuretic. Patient also noted with Rt. fem CVC which was inserted in the ED, most likely due to be change, unsuccessfult PICC by IVT today and patient is refusing Port access at this time. 05/15: Patient remains on continuous Bipap overnight, desat when bipap is removed for mouth care. Plan to wean Fio2 as tolerated for SPO2 goal above 90%. Febrile overnight, TMAX 101.4, on IV abx zosyn, repeat blood culture ordered. Low K and phosph repleted, repeat labs in the am. 05/16: Patient back on full support on the Bipap, still not tolerating FiO2 wean, patient desat in the 80s. D/w CCM plan to continue continuous bipap for now, patient going on over 4 days with no nutrition plan to initiate TPN tomorrow. D10w gtt added for hypoglycemia. Patient platelet continue to steadily drop, given patient's history with continue AC for now, H&H is stable, no s/s of any active bleeding. Electrolytes repleted, will continue to trend CBC, BMP, mg, and phos. MRCP canceled, plan to reorder once patient's respiratory status is more stable. 05/17: Patient remains on continuous Bipap. Patient remains on low dose Levophed, plan to wean off pressors as tolerated for a MAP above 65. Clinimix initiated overnight, plan to start TPN tonight. Hyperglycemic overnight, SSI was initiated. Low phos repleted, repeat lab in the am. 05/18: Down to 60% FIo2 on the Bipap, SPO2 above 97%. Off pressros this am, TPN is running. Patient is now hyperglycemic, SSI adjusted. Consider basal dose, lantus if hyperglycemia persist. This am labs noted, hyperkalemia and really high glucose noted totally different from normal trend, orders placed for redraw. 05/19: Overnight events noted. Started on PRN haldol for agitation. Patient placed on heated high Flow at 100%, 40L SPO2 at 100%. Continue to wean Fio2 as tolerated for SPO2 for SPO2 above 92%. Continue TPN for now. Patient still hyperglycemic basal dose lantus added Qhs. 05/20: Patient is tolerating HHFL NC, SPO2 above 95%. Continue HHFL NC during and Bipap at night. Still on TPN for nutrition, hyperglycemia persists- basal insulin increased. Low K and phosp was repleted, repeat lab in the am. 05/21: Patient unable to tolerate OptiFlow for more than couple hours and was placed back on BiPAP due to desaturation. Patient remains on TPN for nutrition which was held today due to hyperkalemia. P.m. BMP ordered but not collected. Patient refused to have port accessed and PICC line ordered. Down grading to [facility] status 05/21 abdominal ultrasound shows findings of emergency megaly and steatosis without other significant abnormality in the right upper quadrant. ST eval ordered and Ntr consult for cyclic TF. midline ordered 05/23/ Patient with acute on chronic resp failure, COPD, pancreatic cancer. She has been transferred to [facility]. She is on BIPAP Hypomag. Replace and recheck in am 05/24/21 Patient with acute on chronic resp failure. Still on BIPAP To start tube feeding 05/25/21 Patient with acute on chronic respiratory failure She desaturated down to Oxygen sat 85% today Will order CT Angio to r/o pulmonary embolism 05/26/21: patient remains on bipap, o2 sat in 90s. CT angio not completed yesterday as patient could not lay flat. Add dilaudid for improved pain control to patient medications and advised hospital staff pharmacist to re-attempt CT angio. Patient has a poor prognosis given pulmonary fibrosis and pancreatic cancer. Will likely re- visit talks of palliaitive care as she may benefit more from this. 05/27/21: Remains bipap dependent. D/w patient regarding comfort care/hospice, she is interested. CM consulted. Patient would still like to remain full code 05/28/21: Remains bipap dependent. Spoke with Eriberto (daughter) who states that she is in agreement for comfort measures for her mother. Coordinating with case management for inpatient hospice referral. Daughter also requested to see her mother in person. Unfortunately due to visitation limitations as a result of the COVID-19 pandemic, daughter will only be able to communicate via telecommunication devices at this time. Care staff was notified the patient is [place]-speaking and to call the daughter if they would like to communicate with the patient. 05/29/2021: Spoke with Eriberto (daughter) who states that she is in agreement for comfort measures for her mother. Referral made to [facility]. Patient will discharge to inpatient hospice today. 05/30/2021: Patient's covid test results returned positive. Patient's pending discharge was cancelled as inpatient hospice will not accept a covid + patient. Case Management met with patient's daughter to update on status. Patient's prognosis remains poor. Patient on BiPAP (IPAP 15, EPAP 10, FiO2 85%). Patient started on steroids yesterday and we will start remdesivir today. I discussed the case with pulmonary. Patient will remain a full code I discussed the case with the daughter. 05/31/2021: Patient remains on BiPAP (IPAP 15, EPAP 10, FiO2 80%). Patient's prognosis remains poor. Continue steroids and remdesivir. History Interval history: No new issues overnight Hospitalist Physical - Constitutional Vitals: Temp Pulse Resp BP Pulse Ox 97.9 F 112 H 25 H 114/78 92 05/31/21 07:58 05/31/21 12:00 05/31/21 12:00 05/31/21 12:00 05/31/21 12:00 General appearance: Present: severe distress, well-nourished, other (Patient currently on BiPAP) - EENT Eyes: Present: PERRL, EOM intact ENT: hearing intact, clear oral mucosa, dentition normal - Neck Neck: Present: supple, normal ROM - Respiratory Respiratory effort: normal Respiratory: bilateral: CTA - Cardiovascular Rhythm: regular Heart Sounds: Present: S1 & S2. Absent: gallop, rub - Extremities Extremities: no ischemia, No edema, Full ROM - Abdominal General gastrointestinal: soft, non-tender, non-distended, normal bowel sounds - Integumentary Integumentary: Present: clear, warm, dry - Neurologic Neurologic: CNII-XII intact, moves all extremities Results - Labs CBC & Chem 7: 05/25/21 04:25 05/29/21 05:07 Labs: Laboratory Last Values WBC 11.7 K/mm3 (4.5-11.0) H 05/25/21 04:25 RBC 3.28 M/mm3 (3.65-5.03) L 05/25/21 04:25 Hgb 10.3 gm/dl (10.1-14.3) 05/25/21 04:25 Hct 31.6 % (30.3-42.9) 05/25/21 04:25 MCV 96 fl (79-97) 05/25/21 04:25 MCH 32 pg (28-32) 05/25/21 04:25 MCHC 33 % (30-34) 05/25/21 04:25 RDW 19.9 % (13.2-15.2) H 05/25/21 04:25 Plt Count 142 K/mm3 (140-440) 05/25/21 04:25 Lymph % (Auto) 7.4 % (13.4-35.0) L 05/15/21 04:45 Bowie % (Auto) 6.7 % (0.0-7.3) 05/15/21 04:45 Eos % (Auto) 4.0 % (0.0-4.3) 05/15/21 04:45 Baso % (Auto) 0.7 % (0.0-1.8) 05/15/21 04:45 Lymph # (Auto) 0.6 K/mm3 (1.2-5.4) L 05/15/21 04:45 Bowie # (Auto) 0.6 K/mm3 (0.0-0.8) 05/15/21 04:45 Eos # (Auto) 0.3 K/mm3 (0.0-0.4) 05/15/21 04:45 Baso # (Auto) 0.1 K/mm3 (0.0-0.1) 05/15/21 04:45 Add Manual Diff Complete 05/12/21 04:08 Total Counted 200 05/12/21 04:08 Seg Neutrophils % 81.2 % (40.0-70.0) H 05/15/21 04:45 Seg Neuts % (Manual) 85.5 % (40.0-70.0) H 05/12/21 04:08 Band Neutrophils % 8.5 % 05/12/21 04:08 Lymphocytes % (Manual) 2.0 % (13.4-35.0) L 05/12/21 04:08 Monocytes % (Manual) 3.0 % (0.0-7.3) 05/12/21 04:08 Eosinophils % (Manual) 1.0 % (0.0-4.3) 05/12/21 04:08 Nucleated RBC % Not Reportable 05/12/21 04:08 Seg Neutrophils # 6.7 K/mm3 (1.8-7.7) 05/15/21 04:45 Seg Neutrophils # Man 19.5 K/mm3 (1.8-7.7) H 05/12/21 04:08 Band Neutrophils # 1.9 K/mm3 05/12/21 04:08 Lymphocytes # (Manual) 0.5 K/mm3 (1.2-5.4) L 05/12/21 04:08 Abs React Lymphs (Man) 0.0 K/mm3 05/12/21 04:08 Monocytes # (Manual) 0.7 K/mm3 (0.0-0.8) 05/12/21 04:08 Eosinophils # (Manual) 0.2 K/mm3 (0.0-0.4) 05/12/21 04:08 Basophils # (Manual) 0.0 K/mm3 (0.0-0.1) 05/12/21 04:08 Metamyelocytes # 0.0 K/mm3 05/12/21 04:08 Myelocytes # 0.0 K/mm3 05/12/21 04:08 Promyelocytes # 0.0 K/mm3 05/12/21 04:08 Blast Cells # 0.0 K/mm3 05/12/21 04:08 WBC Morphology Not Reportable 05/12/21 04:08 Hypersegmented Neuts Not Reportable 05/12/21 04:08 Hyposegmented Neuts Not Reportable 05/12/21 04:08 Hypogranular Neuts Not Reportable 05/12/21 04:08 Smudge Cells Not Reportable 05/12/21 04:08 Toxic Granulation Not Reportable 05/12/21 04:08 Toxic Vacuolation Not Reportable 05/12/21 04:08 Dohle Bodies Not Reportable 05/12/21 04:08 Pelger-Huet Anomaly Not Reportable 05/12/21 04:08 Elizabeth Rods Not Reportable 05/12/21 04:08 Platelet Estimate Consistent w auto 05/12/21 04:08 Clumped Platelets Not Reportable 05/12/21 04:08 Plt Clumps, EDTA Not Reportable 05/12/21 04:08 Large Platelets Not Reportable 05/12/21 04:08 Giant Platelets Not Reportable 05/12/21 04:08 Platelet Satelliting Not Reportable 05/12/21 04:08 Plt Morphology Comment Not Reportable 05/12/21 04:08 RBC Morphology Not Reportable 05/12/21 04:08 Dimorphic RBCs Not Reportable 05/12/21 04:08 Polychromasia Not Reportable 05/12/21 04:08 Hypochromasia Not Reportable 05/12/21 04:08 Poikilocytosis Not Reportable 05/12/21 04:08 Anisocytosis 1+ 05/12/21 04:08 Microcytosis Not Reportable 05/12/21 04:08 Macrocytosis Not Reportable 05/12/21 04:08 Spherocytes Not Reportable 05/12/21 04:08 Pappenheimer Bodies Not Reportable 05/12/21 04:08 Sickle Cells Not Reportable 05/12/21 04:08 Target Cells Not Reportable 05/12/21 04:08 Tear Drop Cells Not Reportable 05/12/21 04:08 Ovalocytes Not Reportable 05/12/21 04:08 Helmet Cells Not Reportable 05/12/21 04:08 Sibley-Dowell Bodies Not Reportable 05/12/21 04:08 [place] Rings Not Reportable 05/12/21 04:08 Marcin Cells Not Reportable 05/12/21 04:08 Bite Cells Not Reportable 05/12/21 04:08 Crenated Cell Not Reportable 05/12/21 04:08 Elliptocytes Not Reportable 05/12/21 04:08 Acanthocytes (Spur) Not Reportable 05/12/21 04:08 Rouleaux Not Reportable 05/12/21 04:08 Hemoglobin C Crystals Not Reportable 05/12/21 04:08 Schistocytes Not Reportable 05/12/21 04:08 Malaria parasites Not Reportable 05/12/21 04:08 Tahir Bodies Not Reportable 05/12/21 04:08 Hem Pathologist Commnt No 05/12/21 04:08 PT 16.9 Sec. (12.2-14.9) H 05/23/21 10:15 INR 1.24 (0.87-1.13) H 05/23/21 10:15 ABG pH 7.482 pH Units (7.350-7.450) H 05/19/21 14:14 ABG pCO2 42.9 mm Hg 05/19/21 14:14 ABG pO2 111.7 mm Hg (80.0-90.0) H 05/19/21 14:14 ABG HCO3 31.4 mmol/L (20.0-26.0) H 05/19/21 14:14 ABG O2 Saturation 98.2 % (95.0-99.0) 05/19/21 14:14 ABG O2 Content 15.2 (0.0-44) 05/19/21 14:14 ABG Base Excess 7.2 mmol/L (-2.0-3.0) H 05/19/21 14:14 ABG Hemoglobin 11.1 gm/dl (12.0-16.0) L 05/19/21 14:14 ABG Carboxyhemoglobin 1.1 % (0.0-5.0) 05/19/21 14:14 ABG Methemoglobin 0.6 % (0.0-1.5) 05/19/21 14:14 Oxyhemoglobin 96.4 % (95.0-99.0) 05/19/21 14:14 FiO2 100 % 05/19/21 14:14 Sodium 148 mmol/L (137-145) H D 05/29/21 05:07 Potassium 3.0 mmol/L (3.6-5.0) L 05/29/21 05:07 Chloride 108.0 mmol/L (98-107) H 05/29/21 05:07 Carbon Dioxide 30 mmol/L (22-30) 05/29/21 05:07 Anion Gap 13 mmol/L 05/29/21 05:07 BUN 16 mg/dL (7-17) 05/29/21 05:07 Creatinine 0.2 mg/dL (0.6-1.2) L 05/29/21 05:07 Estimated GFR > 60 ml/min 05/29/21 05:07 BUN/Creatinine Ratio 80 % 05/29/21 05:07 Glucose 155 mg/dL (65-100) H 05/29/21 05:07 POC Glucose 170 mg/dL (70-105) H 05/31/21 12:06 Hemoglobin A1c 5.2 % (4-6) 05/12/21 04:08 Lactic Acid 3.30 mmol/L (0.7-2.0) H* 05/12/21 Unknown Calcium 7.7 mg/dL (8.4-10.2) L 05/29/21 05:07 Phosphorus 2.60 mg/dL (2.5-4.5) 05/24/21 04:16 Magnesium 2.00 mg/dL (1.7-2.3) 05/24/21 04:16 Total Bilirubin 2.30 mg/dL (0.1-1.2) H 05/23/21 10:15 Direct Bilirubin 1.6 mg/dL (0-0.2) H 05/23/21 10:15 Indirect Bilirubin 0.7 mg/dL 05/23/21 10:15 AST 161 units/L (5-40) H 05/23/21 10:15 ALT 396 units/L (7-56) H 05/23/21 10:15 Alkaline Phosphatase 186 units/L (35-129) H 05/23/21 10:15 Total Protein 4.7 g/dL (6.3-8.2) L 05/23/21 10:15 Albumin 2.0 g/dL (3.9-5) L 05/23/21 10:15 Albumin/Globulin Ratio 0.7 % 05/23/21 10:15 Triglycerides 90 mg/dL (2-149) 05/23/21 10:15 Lipase 3 units/L (13-60) L 05/11/21 05:43 Urine Color Deisi (Yellow) 05/11/21 11:18 Urine Turbidity Clear (Clear) 05/11/21 11:18 Urine pH 6.0 (5.0-7.0) 05/11/21 11:18 Ur Specific Melcroft 1.035 (1.003-1.030) H 05/11/21 11:18 Urine Protein 100 mg/dl mg/dL (Negative) 05/11/21 11:18 Urine Glucose (UA) Neg mg/dL (Negative) 05/11/21 11:18 Urine Ketones Neg mg/dL (Negative) 05/11/21 11:18 Urine Blood Neg (Negative) 05/11/21 11:18 Urine Nitrite Neg (Negative) 05/11/21 11:18 Urine Bilirubin Neg (Negative) 05/11/21 11:18 Urine Urobilinogen < 2.0 mg/dL (<2.0) 05/11/21 11:18 Ur Leukocyte Esterase Neg (Negative) 05/11/21 11:18 Urine WBC (Auto) 2.0 /HPF (0.0-6.0) 05/11/21 11:18 Urine RBC (Auto) 1.0 /HPF (0.0-6.0) 05/11/21 11:18 Urine Mucus Few /HPF 05/11/21 11:18 Vancomycin Trough 25.3 ug/mL (5.0-20.0) H 05/14/21 15:20 Coronavirus (PCR) Positive (Negative) A 05/29/21 08:20 Hepatitis A IgM Ab Non-reactive (NonReactive) 05/12/21 12:30 Hep Bs Antigen Nonreactive (Negative) 05/12/21 12:30 Hep B Core IgM Ab Non-reactive (NonReactive) 05/12/21 12:30 Hepatitis C Antibody Non-reactive (NonReactive) 05/12/21 12:30 Rivas/IV: Voiding Method Indwelling Catheter Active Medications - Current Medications Current Medications: Generic Name Dose Route Start Last Admin Trade Name Freq PRN Reason Stop Dose Admin Acetaminophen 650 mg 05/11/21 21:40 05/14/21 20:06 Acetaminophen 325 Mg Tab PO 650 mg Q4H PRN Administration Pain MILD(1-3)/Fever >100.5/WOODS Alprazolam 1 mg 05/28/21 09:53 05/31/21 08:01 Alprazolam 1 Mg Tab PO 1 mg Q8H PRN Administration Anxiety Lipase/Protease/Amylase 1 each 05/22/21 16:30 Lipase 10,500/Protease 25,000/Amylase 43,750 (Units) Dr Baker FEEDTUBE PRN PRN For Clogged Feeding Tube Arformoterol Tartrate 15 mcg 05/12/21 08:00 05/31/21 09:22 Arformoterol 15 Mcg/2 Ml Nebu IH Not Given Q12HRT ABRAHAN Benzonatate 100 mg 05/12/21 15:53 05/23/21 22:02 Benzonatate 100 Mg Cap PO 100 mg Q8HR PRN Administration Cough Budesonide 0.5 mg 05/12/21 08:00 05/31/21 09:23 Budesonide 0.5 Mg/2 Ml Nebu IH Not Given Q12HRT ABRAHAN Dexamethasone 6 mg 05/28/21 10:00 05/31/21 09:21 Dexamethasone 2 Mg Tab FEEDTUBE 6 mg Q24HR ABRAHAN Administration Dextrose 50 ml 05/12/21 11:57 05/30/21 06:10 Dextrose 50% In Water (25gm) 50 Ml Syringe IV 50 ml Q30MIN PRN Administration Hypoglycemia Protocol Dicyclomine HCl 10 mg 05/23/21 14:00 05/31/21 09:22 Dicyclomine 10 Mg Cap PO 10 mg QID ABRAHAN Administration Enoxaparin Sodium 40 mg 05/30/21 22:00 05/30/21 21:20 Enoxaparin 40 Mg/0.4 Ml Inj SUB-Q 40 mg QDAY@2200 ABRAHAN Administration Haloperidol Lactate 5 mg 05/19/21 15:00 05/31/21 02:58 Haloperidol Lactate 5 Mg/1 Ml Inj IV 5 mg Q8H PRN Administration Agitation Hydromorphone HCl 0.5 mg 05/26/21 14:58 05/31/21 08:01 Hydromorphone 1 Mg/1 Ml Inj IV 0.5 mg Q3H PRN Administration Pain , Severe (7-10) Insulin Glargine 20 units 05/22/21 22:00 05/30/21 21:22 Insulin Glargine 100 Units/Ml SUB-Q 20 units QHS ABRAHAN Administration Insulin Human Lispro 0 unit 05/17/21 12:00 05/31/21 06:30 Insulin Lispro 100 Unit/Ml SUB-Q Not Given Q6HR [facility] Protocol Lansoprazole 30 mg 05/28/21 10:00 05/31/21 09:27 Lansoprazole 30 Mg Solutab FEEDTUBE 30 mg QDAY ABRAHAN Administration Metoclopramide HCl 10 mg 05/11/21 21:40 Metoclopramide 10 Mg/2 Ml Inj IV Q6H PRN Nausea And Vomiting Morphine Sulfate 2 mg 05/11/21 21:40 05/26/21 09:42 Morphine 2 Mg/1 Ml Inj IV 2 mg Q4H PRN Administration Pain, Moderate (4-6) Ondansetron HCl 4 mg 05/11/21 21:40 05/15/21 09:57 Ondansetron 4 Mg/2 Ml Inj IV 4 mg Q8H PRN Administration Nausea And Vomiting Simple Syrup 15 ml 05/22/21 16:30 Simple Syrup 15 Ml FEEDTUBE PRN PRN Hypoglycemia Simple Syrup 30 ml 05/22/21 16:30 Simple Syrup 15 Ml FEEDTUBE PRN PRN Hypoglycemia Sodium Bicarbonate 325 mg 05/22/21 16:30 Sodium Bicarbonate 325 Mg Tab FEEDTUBE PRN PRN For Clogged Feeding Tube Sodium Chloride 10 ml 05/11/21 22:00 05/31/21 09:22 Sodium Chloride 0.9% 10 Ml Flush Syringe IV 10 ml BID ABRAHAN Administration Sodium Chloride 10 ml 05/11/21 21:40 05/23/21 21:00 Sodium Chloride 0.9% 10 Ml Flush Syringe IV 10 ml PRN PRN Administration LINE FLUSH Nutrition/Malnutrition Assess - Dietary Evaluation Nutrition/Malnutrition Findings: Nutrition Notes Start: 05/13/21 09:47 Freq: Status: Active Protocol: Document 05/28/21 12:38 MARITZA (Rec: 05/28/21 12:48 ILRADHA [id number]) Nutrition Notes Initial or Follow up Reassessment Current Diagnosis COPD,Respiratory Failure Other Pertinent Diagnosis Pancreatic CA, pulmonary fibrosis Current Diet TF - Vital AF 1.2 at 42ml/hr Labs/Tests Reviewed Pertinent Medications Decadron Height 5 ft 2 in Weight 64.4 kg [place] Body Weight (kg) 50.00 BMI 25.9 Weight change and time frame Current wt obtained from bed scale Weight Status Appropriate Subjective/Other Information Pt transferred to [facility] on . She remains dependent on BiPap. Per [employer] eval on 05/23, pt safe for a pureed diet, however, tends to desaturate when off the BiPap. TF infusing at goal rate at time of visit (12:35). Pt tolerating TF. Percent of energy/protein needs met: 84% energy 100% pro Burn Absent Trauma Absent #2 Nutrition Diagnosis Malnutrition Diagnosis Progress(for reassessment Continues documentation) #1 Nutrition Diagnosis Altered GI function As Evidenced by Signs and Symptoms pt tolerating EN support Diagnosis Progress(for reassessment Resolved documentation) Is patient on ventilator? No Is Patient Ambulatory and/or Out of Bed No [facility] 1447.020 Calculation Used for Recommendations [facility] Additional Notes Pro needs 1-1.2g/k-77g/ day Fluid needs 1ml/kcal Nutrition Intervention Nutrition Support: Change TF formula to Glucerna 1.2 at 50ml/hr Kcal 1,440 Protein (gm) 72 Carbohydrates (gm) 137 Fat (gm) 72 Fluid (mL) 966 Fiber (gm) 19 Goal #1 TF tolerance Goal #2 TF to meet at least 75% energy and pro needs Follow-Up By: 06/01/21 Additional Comments F/U: TF formula change and tolerance, resp status
--- NOTE | 2021-05-31 14:11 | Progress Note ---
Assessment and Plan Septic shock possible hepatobiliary source Lactic acidosis h/o pulmonary fibrosis, Acute on chronic respiratory failure on home O2 of 2 L nasal cannula Transaminitis, biliary dilation, r/o cholangitis Hyperchloremia, metabolic acidosis, hypokalemia Hypoglycemia h/o pancreatic head cancer- chemoradiation therapy h/o Hypertension - continue to engage family re: goals of care (I did discuss with her son yesterday regarding her not neing a candidate for lung transplantation at this time) - transition to daytime HFNC in am if tolerates - conservative volume management - continue care as below otherwise; - continue BIPAP scheduled qhs with prn daytime use - prn vasopressors for target MAP > 65 mmHg - MRCP pending as she remains tenuous from a respiratory standpoint - continue anti-infective's; de-escalate per ID recommendations - continue accuchecks with glycemic control per SSI (While critically ill target blood glucose of 140-180 mg/dL; avoid hypoglycemia) - continue to wean supplemental oxygen for target O2 sat's > 90% acutely - aspiration precautions - bronchodilators with pulmonary hygiene per RT - avoid nephrotoxins, renally dose all medications - prn analgesia per pain score - Maintenance of sleep-wake cycle, avoid delirium - G.I. & VTE prophylaxis - PT/OT/ROM exercises - mobility protocols for pressure ulcer prophylaxis - Monitor hemodynamics closely - continue other care per attending / other consultants - discharge planning ongoing concurrently .... Re-evaluate in am & prn CONDITION: CRITICAL PROGNOSIS: GUARDED CODE STATUS: FULL CODE The high probability of a clinically significant, sudden or life-threatening deterioration of the [respiratory, cardiovascular, GI & neurologic] system(s) required my full and direct attention, intervention and personal management. The aggregate critical care time was [35] minutes without overlap. Time includes spent on; [x] Data Review and interpretation [x] Patient assessment and monitoring of vital signs [x] Documentation [x] Medication orders and management Subjective Date of service: 05/31/21 Principal diagnosis: Septic shock; Pulm fibrosis; Hypoxemic resp failure; COVID- 19 infxn Interval history: Patient is seen today for: Septic shock; pulmonary fibrosis; Acute on chronic hypoxemic respiratory failure; Transaminitis; h/o pancreatic head cancer; HTN Seen and examined at bedside; 24hour events reviewed; nursing and respiratory care staff consulted; no adverse overnight events reported to me; resting in bed; BIPAP dependent for past 48 hours; no N/V/F/C; family has decided on hospice but keeping her full CODE status for now Objective Vital Signs - 12hr 05/31/21 05/31/21 05/31/21 03:00 03:31 03:44 Temperature Pulse Rate 105 H 104 H Respiratory 28 H 30 H Rate Blood Pressure 115/75 O2 Sat by Pulse 95 100 Oximetry 05/31/21 05/31/21 05/31/21 04:00 04:41 05:00 Temperature 97.9 F Pulse Rate 108 H 92 H 98 H Respiratory 35 H 22 16 Rate Blood Pressure 110/79 104/78 101/69 O2 Sat by Pulse 82 L 99 91 Oximetry 05/31/21 05/31/21 05/31/21 06:00 07:00 07:58 Temperature 97.9 F Pulse Rate 102 H 116 H Respiratory 19 31 H Rate Blood Pressure 112/84 123/84 O2 Sat by Pulse 99 95 Oximetry 05/31/21 05/31/21 05/31/21 08:00 09:00 09:17 Temperature Pulse Rate 130 H 101 H 107 H Respiratory 30 H 16 20 Rate Blood Pressure 123/84 107/68 107/68 O2 Sat by Pulse 100 100 98 Oximetry 05/31/21 05/31/21 05/31/21 10:00 11:00 12:00 Temperature 98.0 F Pulse Rate 105 H 116 H 112 H Respiratory 16 25 H 25 H Rate Blood Pressure 95/77 103/73 114/78 O2 Sat by Pulse 91 91 92 Oximetry Constitutional: no acute distress, asleep, other (mildly increased respiratory effort at rest on BIPAP) Eyes: non-icteric ENT: oropharynx moist Neck: supple, no lymphadenopathy, no JVD Effort: mildly labored Ascultation: Bilateral: diminished breath sounds, rales (posterior bases) Percussion: Bilateral: not dull Cardiovascular: regular rate and rhythm, other (S1,S2) Gastrointestinal: normoactive bowel sounds, hypoactive bowel sounds, soft, non- distended (protuberant) Integumentary: normal Extremities: no cyanosis, no edema, pulses normal, other (right femoral CVL) Neurologic: normal mental status, non-focal exam, pupils equal and round, other (somnolent) Psychiatric: mood appropriate, affect normal, other (somnolenet) CBC and BMP: 05/25/21 04:25 05/29/21 05:07 ABG, PT/INR, D-dimer: ABG ABG pH 7.482 pH Units (7.350-7.450) H 05/19/21 14:14 ABG pCO2 42.9 mm Hg 05/19/21 14:14 ABG pO2 111.7 mm Hg (80.0-90.0) H 05/19/21 14:14 ABG O2 Saturation 98.2 % (95.0-99.0) 05/19/21 14:14 PT/INR, D-dimer PT 16.9 Sec. (12.2-14.9) H 05/23/21 10:15 INR 1.24 (0.87-1.13) H 05/23/21 10:15 Abnormal lab findings: Abnormal Labs 05/11/21 05/11/21 05/11/21 05:43 05:43 05:43 WBC RBC Hgb MCV 98 H RDW 17.7 H Plt Count Lymph % (Auto) 10.8 L Lymph # (Auto) 0.6 L Seg Neutrophils % 84.1 H Seg Neuts % (Manual) Lymphocytes % (Manual) Seg Neutrophils # Man Lymphocytes # (Manual) PT 16.0 H INR 1.16 H ABG pH ABG pO2 ABG HCO3 ABG Base Excess ABG Hemoglobin Oxyhemoglobin Sodium Potassium Chloride Carbon Dioxide 21 L BUN 4 L Creatinine 0.4 L Glucose POC Glucose Lactic Acid Calcium 8.3 L Phosphorus Magnesium Total Bilirubin 2.10 H Direct Bilirubin 1.4 H AST 335 H ALT 57 H Alkaline Phosphatase 339 H Total Protein Albumin 2.4 L Lipase 3 L Ur Specific [place] Vancomycin Trough Coronavirus (PCR) 05/11/21 05/11/21 05/12/21 11:18 12:28 04:08 WBC RBC Hgb MCV RDW Plt Count Lymph % (Auto) Lymph # (Auto) Seg Neutrophils % Seg Neuts % (Manual) Lymphocytes % (Manual) Seg Neutrophils # Man Lymphocytes # (Manual) PT INR ABG pH ABG pO2 ABG HCO3 ABG Base Excess ABG Hemoglobin Oxyhemoglobin Sodium Potassium Chloride Carbon Dioxide BUN Creatinine Glucose POC Glucose Lactic Acid 4.20 H* 4.50 H* Calcium Phosphorus Magnesium Total Bilirubin Direct Bilirubin AST ALT Alkaline Phosphatase Total Protein Albumin Lipase Ur Specific [place] 1.035 H Vancomycin Trough Coronavirus (PCR) 05/12/21 05/12/21 05/12/21 04:08 04:08 09:47 WBC 22.8 H RBC 3.39 L Hgb MCV 98 H RDW 17.7 H Plt Count Lymph % (Auto) Lymph # (Auto) Seg Neutrophils % Seg Neuts % (Manual) 85.5 H Lymphocytes % (Manual) 2.0 L Seg Neutrophils # Man 19.5 H Lymphocytes # (Manual) 0.5 L PT INR ABG pH ABG pO2 ABG HCO3 ABG Base Excess ABG Hemoglobin Oxyhemoglobin Sodium Potassium 3.3 L Chloride 108.9 H Carbon Dioxide 17 L BUN 4 L Creatinine 0.5 L Glucose 106 H POC Glucose Lactic Acid 2.60 H* Calcium 6.4 L D Phosphorus Magnesium Total Bilirubin 2.10 H Direct Bilirubin AST 156 H ALT 61 H Alkaline Phosphatase 317 H Total Protein 5.4 L D Albumin 1.8 L Lipase Ur Specific [place] Vancomycin Trough Coronavirus (PCR) 05/12/21 05/12/21 05/12/21 11:47 12:30 12:36 WBC RBC Hgb MCV RDW Plt Count Lymph % (Auto) Lymph # (Auto) Seg Neutrophils % Seg Neuts % (Manual) Lymphocytes % (Manual) Seg Neutrophils # Man Lymphocytes # (Manual) PT INR ABG pH ABG pO2 ABG HCO3 ABG Base Excess ABG Hemoglobin Oxyhemoglobin Sodium Potassium Chloride Carbon Dioxide BUN Creatinine Glucose POC Glucose 59 L 120 H Lactic Acid 2.50 H* Calcium Phosphorus Magnesium Total Bilirubin Direct Bilirubin AST ALT Alkaline Phosphatase Total Protein Albumin Lipase Ur Specific [place] Vancomycin Trough Coronavirus (PCR) 05/12/21 05/12/21 05/13/21 23:45 Unknown 04:00 WBC 19.8 H RBC 3.52 L Hgb MCV 98 H RDW 18.5 H Plt Count Lymph % (Auto) Lymph # (Auto) Seg Neutrophils % Seg Neuts % (Manual) Lymphocytes % (Manual) Seg Neutrophils # Man Lymphocytes # (Manual) PT INR ABG pH ABG pO2 ABG HCO3 ABG Base Excess ABG Hemoglobin Oxyhemoglobin Sodium Potassium Chloride Carbon Dioxide BUN Creatinine Glucose POC Glucose 119 H Lactic Acid 3.30 H* Calcium Phosphorus Magnesium Total Bilirubin Direct Bilirubin AST ALT Alkaline Phosphatase Total Protein Albumin Lipase Ur Specific [place] Vancomycin Trough Coronavirus (PCR) 1205/13/21 05/13/21 04:00 05:42 12:19 WBC RBC Hgb MCV RDW Plt Count Lymph % (Auto) Lymph # (Auto) Seg Neutrophils % Seg Neuts % (Manual) Lymphocytes % (Manual) Seg Neutrophils # Man Lymphocytes # (Manual) PT INR ABG pH ABG pO2 ABG HCO3 ABG Base Excess ABG Hemoglobin Oxyhemoglobin Sodium Potassium 3.4 L Chloride 107.1 H Carbon Dioxide 19 L BUN 4 L Creatinine 0.4 L Glucose 157 H POC Glucose 143 H 110 H Lactic Acid Calcium 7.4 L D Phosphorus 1.60 L Magnesium 1.50 L Total Bilirubin 1.40 H Direct Bilirubin AST 95 H ALT Alkaline Phosphatase 328 H Total Protein 5.5 L Albumin 1.6 L Lipase Ur Specific [place] Vancomycin Trough Coronavirus (PCR) 05/14/21 05/14/21 05/14/21 06:15 06:15 10:25 WBC 11.7 H RBC 3.41 L Hgb MCV 98 H RDW 18.6 H Plt Count Lymph % (Auto) Lymph # (Auto) Seg Neutrophils % Seg Neuts % (Manual) Lymphocytes % (Manual) Seg Neutrophils # Man Lymphocytes # (Manual) PT INR ABG pH ABG pO2 76.0 L ABG HCO3 27.2 H ABG Base Excess ABG Hemoglobin 11.5 L Oxyhemoglobin 94.4 L Sodium Potassium 3.2 L Chloride Carbon Dioxide BUN 6 L Creatinine 0.5 L Glucose 103 H POC Glucose Lactic Acid Calcium 7.3 L Phosphorus 1.70 L Magnesium Total Bilirubin Direct Bilirubin AST 66 H ALT Alkaline Phosphatase 295 H Total Protein 5.3 L Albumin 1.8 L Lipase Ur Specific [place] Vancomycin Trough Coronavirus (PCR) 05/14/21 05/14/21 05/14/21 15:20 15:20 17:26 WBC RBC Hgb MCV RDW Plt Count Lymph % (Auto) Lymph # (Auto) Seg Neutrophils % Seg Neuts % (Manual) Lymphocytes % (Manual) Seg Neutrophils # Man Lymphocytes # (Manual) PT INR ABG pH ABG pO2 ABG HCO3 ABG Base Excess ABG Hemoglobin Oxyhemoglobin Sodium 146 H D Potassium Chloride 108.4 H Carbon Dioxide BUN 5 L Creatinine 0.5 L Glucose POC Glucose 63 L Lactic Acid Calcium 7.6 L Phosphorus Magnesium Total Bilirubin Direct Bilirubin AST ALT Alkaline Phosphatase Total Protein Albumin Lipase Ur Specific [place] Vancomycin Trough 25.3 H Coronavirus (PCR) 05/14/21 05/15/21 05/15/21 21:27 00:03 00:29 WBC RBC Hgb MCV RDW Plt Count Lymph % (Auto) Lymph # (Auto) Seg Neutrophils % Seg Neuts % (Manual) Lymphocytes % (Manual) Seg Neutrophils # Man Lymphocytes # (Manual) PT INR ABG pH ABG pO2 ABG HCO3 ABG Base Excess ABG Hemoglobin Oxyhemoglobin Sodium Potassium Chloride Carbon Dioxide BUN Creatinine Glucose POC Glucose 52 L 54 L 129 H Lactic Acid Calcium Phosphorus Magnesium Total Bilirubin Direct Bilirubin AST ALT Alkaline Phosphatase Total Protein Albumin Lipase Ur Specific [place] Vancomycin Trough Coronavirus (PCR) 05/15/21 05/15/21 05/15/21 04:45 04:45 11:58 WBC RBC 3.24 L Hgb MCV 98 H RDW 18.5 H Plt Count 122 L Lymph % (Auto) 7.4 L Lymph # (Auto) 0.6 L Seg Neutrophils % 81.2 H Seg Neuts % (Manual) Lymphocytes % (Manual) Seg Neutrophils # Man Lymphocytes # (Manual) PT INR ABG pH ABG pO2 ABG HCO3 ABG Base Excess ABG Hemoglobin Oxyhemoglobin Sodium 146 H Potassium 3.1 L Chloride 108.8 H Carbon Dioxide BUN 6 L Creatinine Glucose 121 H POC Glucose 68 L Lactic Acid Calcium 7.5 L Phosphorus 2.30 L D Magnesium Total Bilirubin 1.90 H Direct Bilirubin AST 55 H ALT Alkaline Phosphatase 231 H Total Protein 5.4 L Albumin 1.5 L Lipase Ur Specific [place] Vancomycin Trough Coronavirus (PCR) 05/15/21 05/16/21 05/16/21 13:50 00:06 00:43 WBC RBC Hgb MCV RDW Plt Count Lymph % (Auto) Lymph # (Auto) Seg Neutrophils % Seg Neuts % (Manual) Lymphocytes % (Manual) Seg Neutrophils # Man Lymphocytes # (Manual) PT INR ABG pH ABG pO2 ABG HCO3 ABG Base Excess ABG Hemoglobin Oxyhemoglobin Sodium Potassium Chloride Carbon Dioxide BUN Creatinine Glucose POC Glucose 147 H 54 L 116 H Lactic Acid Calcium Phosphorus Magnesium Total Bilirubin Direct Bilirubin AST ALT Alkaline Phosphatase Total Protein Albumin Lipase Ur Specific [place] Vancomycin Trough Coronavirus (PCR) 05/16/21 05/16/21 05/16/21 04:31 04:31 05:58 WBC RBC 3.12 L Hgb 9.8 L MCV 98 H RDW 18.2 H Plt Count 115 L Lymph % (Auto) Lymph # (Auto) Seg Neutrophils % Seg Neuts % (Manual) Lymphocytes % (Manual) Seg Neutrophils # Man Lymphocytes # (Manual) PT INR ABG pH ABG pO2 ABG HCO3 ABG Base Excess ABG Hemoglobin Oxyhemoglobin Sodium 146 H Potassium 3.2 L Chloride Carbon Dioxide BUN 5 L Creatinine 0.5 L Glucose POC Glucose 61 L Lactic Acid Calcium 7.2 L Phosphorus 2.30 L Magnesium Total Bilirubin Direct Bilirubin AST ALT Alkaline Phosphatase Total Protein Albumin Lipase Ur Specific [place] Vancomycin Trough Coronavirus (PCR) 05/16/21 05/16/21 05/17/21 08:11 23:42 04:15 WBC RBC Hgb MCV RDW Plt Count Lymph % (Auto) Lymph # (Auto) Seg Neutrophils % Seg Neuts % (Manual) Lymphocytes % (Manual) Seg Neutrophils # Man Lymphocytes # (Manual) PT INR ABG pH ABG pO2 ABG HCO3 ABG Base Excess ABG Hemoglobin Oxyhemoglobin Sodium Potassium Chloride Carbon Dioxide BUN Creatinine Glucose POC Glucose 58 L 200 H Lactic Acid Calcium Phosphorus Magnesium Total Bilirubin 1.70 H Direct Bilirubin 1.5 H AST 43 H ALT Alkaline Phosphatase 196 H Total Protein 5.4 L Albumin 1.6 L Lipase Ur Specific [place] Vancomycin Trough Coronavirus (PCR) 05/17/21 05/17/21 05/17/21 04:15 04:15 05:07 WBC RBC 3.26 L Hgb MCV 98 H RDW 18.9 H Plt Count 114 L Lymph % (Auto) Lymph # (Auto) Seg Neutrophils % Seg Neuts % (Manual) Lymphocytes % (Manual) Seg Neutrophils # Man Lymphocytes # (Manual) PT INR ABG pH ABG pO2 ABG HCO3 ABG Base Excess ABG Hemoglobin Oxyhemoglobin Sodium Potassium Chloride Carbon Dioxide 35 H BUN 5 L Creatinine Glucose 274 H POC Glucose 249 H Lactic Acid Calcium 7.7 L Phosphorus 1.50 L D Magnesium Total Bilirubin Direct Bilirubin AST ALT Alkaline Phosphatase Total Protein Albumin Lipase Ur Specific [place] Vancomycin Trough Coronavirus (PCR) 05/17/21 05/17/21 05/17/21 11:56 16:29 23:37 WBC RBC Hgb MCV RDW Plt Count Lymph % (Auto) Lymph # (Auto) Seg Neutrophils % Seg Neuts % (Manual) Lymphocytes % (Manual) Seg Neutrophils # Man Lymphocytes # (Manual) PT INR ABG pH ABG pO2 ABG HCO3 ABG Base Excess ABG Hemoglobin Oxyhemoglobin Sodium Potassium Chloride Carbon Dioxide BUN Creatinine Glucose POC Glucose 176 H 219 H 150 H Lactic Acid Calcium Phosphorus Magnesium Total Bilirubin Direct Bilirubin AST ALT Alkaline Phosphatase Total Protein Albumin Lipase Ur Specific [place] Vancomycin Trough Coronavirus (PCR) 05/18/21 05/18/21 05/18/21 04:00 05:22 09:00 WBC RBC 3.34 L Hgb MCV RDW 18.8 H Plt Count Lymph % (Auto) Lymph # (Auto) Seg Neutrophils % Seg Neuts % (Manual) Lymphocytes % (Manual) Seg Neutrophils # Man Lymphocytes # (Manual) PT INR ABG pH ABG pO2 ABG HCO3 ABG Base Excess ABG Hemoglobin Oxyhemoglobin Sodium Potassium 5.4 H D Chloride 97.5 L Carbon Dioxide 33 H BUN Creatinine 0.4 L Glucose 461 H POC Glucose 181 H Lactic Acid Calcium 7.2 L Phosphorus 5.00 H D Magnesium Total Bilirubin Direct Bilirubin AST ALT Alkaline Phosphatase Total Protein Albumin Lipase Ur Specific [place] Vancomycin Trough Coronavirus (PCR) 05/18/21 05/18/21 05/18/21 11:16 12:50 16:29 WBC RBC Hgb MCV RDW Plt Count Lymph % (Auto) Lymph # (Auto) Seg Neutrophils % Seg Neuts % (Manual) Lymphocytes % (Manual) Seg Neutrophils # Man Lymphocytes # (Manual) PT INR ABG pH ABG pO2 ABG HCO3 ABG Base Excess ABG Hemoglobin Oxyhemoglobin Sodium Potassium 3.4 L D Chloride Carbon Dioxide 36 H BUN 19 H Creatinine 0.4 L Glucose 231 H POC Glucose 168 H 196 H Lactic Acid Calcium 7.5 L Phosphorus 1.80 L D Magnesium Total Bilirubin Direct Bilirubin AST ALT Alkaline Phosphatase Total Protein Albumin Lipase Ur Specific [place] Vancomycin Trough Coronavirus (PCR) 05/19/21 05/19/21 05/19/21 00:05 04:08 05:07 WBC RBC Hgb MCV RDW Plt Count Lymph % (Auto) Lymph # (Auto) Seg Neutrophils % Seg Neuts % (Manual) Lymphocytes % (Manual) Seg Neutrophils # Man Lymphocytes # (Manual) PT INR ABG pH ABG pO2 ABG HCO3 ABG Base Excess ABG Hemoglobin Oxyhemoglobin Sodium 146 H Potassium Chloride Carbon Dioxide 35 H BUN 25 H Creatinine 0.4 L Glucose 218 H POC Glucose 164 H 203 H Lactic Acid Calcium 7.2 L Phosphorus Magnesium Total Bilirubin Direct Bilirubin AST ALT Alkaline Phosphatase Total Protein Albumin Lipase Ur Specific [place] Vancomycin Trough Coronavirus (PCR) 05/19/21 05/19/21 05/19/21 12:16 14:14 17:11 WBC RBC Hgb MCV RDW Plt Count Lymph % (Auto) Lymph # (Auto) Seg Neutrophils % Seg Neuts % (Manual) Lymphocytes % (Manual) Seg Neutrophils # Man Lymphocytes # (Manual) PT INR ABG pH 7.482 H ABG pO2 111.7 H ABG HCO3 31.4 H ABG Base Excess 7.2 H ABG Hemoglobin 11.1 L Oxyhemoglobin Sodium Potassium Chloride Carbon Dioxide BUN Creatinine Glucose POC Glucose 206 H 194 H Lactic Acid Calcium Phosphorus Magnesium Total Bilirubin Direct Bilirubin AST ALT Alkaline Phosphatase Total Protein Albumin Lipase Ur Specific [place] Vancomycin Trough Coronavirus (PCR) 05/20/21 05/20/21 05/20/21 00:01 04:30 06:09 WBC RBC Hgb MCV RDW Plt Count Lymph % (Auto) Lymph # (Auto) Seg Neutrophils % Seg Neuts % (Manual) Lymphocytes % (Manual) Seg Neutrophils # Man Lymphocytes # (Manual) PT INR ABG pH ABG pO2 ABG HCO3 ABG Base Excess ABG Hemoglobin Oxyhemoglobin Sodium Potassium 3.5 L Chloride Carbon Dioxide BUN 24 H Creatinine 0.3 L Glucose 254 H POC Glucose 209 H 210 H Lactic Acid Calcium 7.5 L Phosphorus 1.90 L D Magnesium Total Bilirubin 1.60 H Direct Bilirubin AST 201 H ALT 170 H Alkaline Phosphatase 169 H Total Protein 5.3 L Albumin 1.9 L Lipase Ur Specific [place] Vancomycin Trough Coronavirus (PCR) 05/20/21 05/20/21 05/20/21 11:41 16:47 22:21 WBC RBC Hgb MCV RDW Plt Count Lymph % (Auto) Lymph # (Auto) Seg Neutrophils % Seg Neuts % (Manual) Lymphocytes % (Manual) Seg Neutrophils # Man Lymphocytes # (Manual) PT INR ABG pH ABG pO2 ABG HCO3 ABG Base Excess ABG Hemoglobin Oxyhemoglobin Sodium Potassium Chloride Carbon Dioxide BUN Creatinine Glucose POC Glucose 158 H 232 H 211 H Lactic Acid Calcium Phosphorus Magnesium Total Bilirubin Direct Bilirubin AST ALT Alkaline Phosphatase Total Protein Albumin Lipase Ur Specific [place] Vancomycin Trough Coronavirus (PCR) 05/21/21 05/21/21 05/21/21 00:35 04:00 04:00 WBC RBC 3.28 L Hgb MCV RDW 18.7 H Plt Count 125 L Lymph % (Auto) Lymph # (Auto) Seg Neutrophils % Seg Neuts % (Manual) Lymphocytes % (Manual) Seg Neutrophils # Man Lymphocytes # (Manual) PT INR ABG pH ABG pO2 ABG HCO3 ABG Base Excess ABG Hemoglobin Oxyhemoglobin Sodium Potassium 5.1 H D Chloride 108.7 H Carbon Dioxide BUN 21 H Creatinine 0.2 L Glucose 242 H POC Glucose 230 H Lactic Acid Calcium 7.3 L Phosphorus Magnesium Total Bilirubin Direct Bilirubin AST ALT Alkaline Phosphatase Total Protein Albumin Lipase Ur Specific [place] Vancomycin Trough Coronavirus (PCR) 05/21/21 05/21/21 05/21/21 05:08 11:47 17:43 WBC RBC Hgb MCV RDW Plt Count Lymph % (Auto) Lymph # (Auto) Seg Neutrophils % Seg Neuts % (Manual) Lymphocytes % (Manual) Seg Neutrophils # Man Lymphocytes # (Manual) PT INR ABG pH ABG pO2 ABG HCO3 ABG Base Excess ABG Hemoglobin Oxyhemoglobin Sodium Potassium Chloride Carbon Dioxide BUN Creatinine Glucose POC Glucose 196 H 139 H 147 H Lactic Acid Calcium Phosphorus Magnesium Total Bilirubin Direct Bilirubin AST ALT Alkaline Phosphatase Total Protein Albumin Lipase Ur Specific [place] Vancomycin Trough Coronavirus (PCR) 05/21/21 05/21/21 05/22/21 17:57 23:32 04:16 WBC RBC Hgb MCV RDW Plt Count Lymph % (Auto) Lymph # (Auto) Seg Neutrophils % Seg Neuts % (Manual) Lymphocytes % (Manual) Seg Neutrophils # Man Lymphocytes # (Manual) PT INR ABG pH ABG pO2 ABG HCO3 ABG Base Excess ABG Hemoglobin Oxyhemoglobin Sodium Potassium 5.2 H Chloride Carbon Dioxide BUN 19 H Creatinine 0.2 L Glucose 154 H POC Glucose 218 H 185 H Lactic Acid Calcium 7.5 L Phosphorus Magnesium Total Bilirubin 3.00 H Direct Bilirubin 2.3 H AST 437 H ALT 462 H Alkaline Phosphatase 186 H Total Protein 5.5 L Albumin 1.9 L Lipase Ur Specific [place] Vancomycin Trough Coronavirus (PCR) 05/22/21 05/22/21 05/22/21 04:30 04:30 04:30 WBC RBC Hgb MCV RDW Plt Count Lymph % (Auto) Lymph # (Auto) Seg Neutrophils % Seg Neuts % (Manual) Lymphocytes % (Manual) Seg Neutrophils # Man Lymphocytes # (Manual) PT 19.5 H INR 1.49 H ABG pH ABG pO2 ABG HCO3 ABG Base Excess ABG Hemoglobin Oxyhemoglobin Sodium 134 L Potassium Chloride Carbon Dioxide BUN 19 H Creatinine 0.2 L Glucose 208 H POC Glucose Lactic Acid Calcium 7.2 L Phosphorus 2.40 L D Magnesium Total Bilirubin 2.20 H Direct Bilirubin AST 350 H ALT 496 H Alkaline Phosphatase 167 H Total Protein 4.8 L Albumin 1.7 L Lipase Ur Specific [place] Vancomycin Trough Coronavirus (PCR) 05/22/21 05/22/21 05/22/21 11:59 17:16 23:07 WBC RBC Hgb MCV RDW Plt Count Lymph % (Auto) Lymph # (Auto) Seg Neutrophils % Seg Neuts % (Manual) Lymphocytes % (Manual) Seg Neutrophils # Man Lymphocytes # (Manual) PT INR ABG pH ABG pO2 ABG HCO3 ABG Base Excess ABG Hemoglobin Oxyhemoglobin Sodium Potassium Chloride Carbon Dioxide BUN Creatinine Glucose POC Glucose 204 H 244 H 226 H Lactic Acid Calcium Phosphorus Magnesium Total Bilirubin Direct Bilirubin AST ALT Alkaline Phosphatase Total Protein Albumin Lipase Ur Specific [place] Vancomycin Trough Coronavirus (PCR) 05/23/21 05/23/21 05/23/21 05:09 10:15 10:15 WBC RBC Hgb MCV RDW Plt Count Lymph % (Auto) Lymph # (Auto) Seg Neutrophils % Seg Neuts % (Manual) Lymphocytes % (Manual) Seg Neutrophils # Man Lymphocytes # (Manual) PT 16.9 H INR 1.24 H ABG pH ABG pO2 ABG HCO3 ABG Base Excess ABG Hemoglobin Oxyhemoglobin Sodium 131 L Potassium Chloride 97.5 L Carbon Dioxide BUN Creatinine < 0.2 L Glucose 248 H POC Glucose 175 H Lactic Acid Calcium 7.4 L Phosphorus Magnesium 1.60 L Total Bilirubin Direct Bilirubin AST ALT Alkaline Phosphatase Total Protein Albumin Lipase Ur Specific [place] Vancomycin Trough Coronavirus (PCR) 05/23/21 05/23/21 05/24/21 10:15 21:46 04:16 WBC RBC Hgb MCV RDW Plt Count Lymph % (Auto) Lymph # (Auto) Seg Neutrophils % Seg Neuts % (Manual) Lymphocytes % (Manual) Seg Neutrophils # Man Lymphocytes # (Manual) PT INR ABG pH ABG pO2 ABG HCO3 ABG Base Excess ABG Hemoglobin Oxyhemoglobin Sodium 130 L Potassium 3.5 L Chloride 97.1 L Carbon Dioxide BUN Creatinine 0.2 L Glucose 235 H POC Glucose 190 H Lactic Acid Calcium 6.8 L Phosphorus Magnesium Total Bilirubin 2.30 H Direct Bilirubin 1.6 H AST 161 H ALT 396 H Alkaline Phosphatase 186 H Total Protein 4.7 L Albumin 2.0 L Lipase Ur Specific [place] Vancomycin Trough Coronavirus (PCR) 05/24/21 05/25/21 05/25/21 05:32 04:25 04:25 WBC 11.7 H RBC 3.28 L Hgb MCV RDW 19.9 H Plt Count Lymph % (Auto) Lymph # (Auto) Seg Neutrophils % Seg Neuts % (Manual) Lymphocytes % (Manual) Seg Neutrophils # Man Lymphocytes # (Manual) PT INR ABG pH ABG pO2 ABG HCO3 ABG Base Excess ABG Hemoglobin Oxyhemoglobin Sodium 135 L Potassium 3.4 L Chloride Carbon Dioxide BUN Creatinine 0.2 L Glucose 105 H POC Glucose 208 H Lactic Acid Calcium 7.6 L Phosphorus Magnesium Total Bilirubin Direct Bilirubin AST ALT Alkaline Phosphatase Total Protein Albumin Lipase Ur Specific [place] Vancomycin Trough Coronavirus (PCR) 05/26/21 05/26/21 05/26/21 11:37 16:57 20:59 WBC RBC Hgb MCV RDW Plt Count Lymph % (Auto) Lymph # (Auto) Seg Neutrophils % Seg Neuts % (Manual) Lymphocytes % (Manual) Seg Neutrophils # Man Lymphocytes # (Manual) PT INR ABG pH ABG pO2 ABG HCO3 ABG Base Excess ABG Hemoglobin Oxyhemoglobin Sodium Potassium Chloride Carbon Dioxide BUN Creatinine Glucose POC Glucose 136 H 214 H 137 H Lactic Acid Calcium Phosphorus Magnesium Total Bilirubin Direct Bilirubin AST ALT Alkaline Phosphatase Total Protein Albumin Lipase Ur Specific [place] Vancomycin Trough Coronavirus (PCR) 05/26/21 05/27/21 05/27/21 23:52 05:40 16:49 WBC RBC Hgb MCV RDW Plt Count Lymph % (Auto) Lymph # (Auto) Seg Neutrophils % Seg Neuts % (Manual) Lymphocytes % (Manual) Seg Neutrophils # Man Lymphocytes # (Manual) PT INR ABG pH ABG pO2 ABG HCO3 ABG Base Excess ABG Hemoglobin Oxyhemoglobin Sodium Potassium Chloride Carbon Dioxide BUN Creatinine Glucose POC Glucose 111 H 144 H 213 H Lactic Acid Calcium Phosphorus Magnesium Total Bilirubin Direct Bilirubin AST ALT Alkaline Phosphatase Total Protein Albumin Lipase Ur Specific [place] Vancomycin Trough Coronavirus (PCR) 05/27/21 05/27/21 05/28/21 21:07 23:57 11:59 WBC RBC Hgb MCV RDW Plt Count Lymph % (Auto) Lymph # (Auto) Seg Neutrophils % Seg Neuts % (Manual) Lymphocytes % (Manual) Seg Neutrophils # Man Lymphocytes # (Manual) PT INR ABG pH ABG pO2 ABG HCO3 ABG Base Excess ABG Hemoglobin Oxyhemoglobin Sodium Potassium Chloride Carbon Dioxide BUN Creatinine Glucose POC Glucose 135 H 157 H 130 H Lactic Acid Calcium Phosphorus Magnesium Total Bilirubin Direct Bilirubin AST ALT Alkaline Phosphatase Total Protein Albumin Lipase Ur Specific [place] Vancomycin Trough Coronavirus (PCR) 05/28/21 05/29/21 05/29/21 17:05 01:03 05:07 WBC RBC Hgb MCV RDW Plt Count Lymph % (Auto) Lymph # (Auto) Seg Neutrophils % Seg Neuts % (Manual) Lymphocytes % (Manual) Seg Neutrophils # Man Lymphocytes # (Manual) PT INR ABG pH ABG pO2 ABG HCO3 ABG Base Excess ABG Hemoglobin Oxyhemoglobin Sodium 148 H D Potassium 3.0 L Chloride 108.0 H Carbon Dioxide BUN Creatinine 0.2 L Glucose 155 H POC Glucose 207 H 204 H Lactic Acid Calcium 7.7 L Phosphorus Magnesium Total Bilirubin Direct Bilirubin AST ALT Alkaline Phosphatase Total Protein Albumin Lipase Ur Specific [place] Vancomycin Trough Coronavirus (PCR) 05/29/21 05/29/21 05/29/21 08:20 11:30 17:53 WBC RBC Hgb MCV RDW Plt Count Lymph % (Auto) Lymph # (Auto) Seg Neutrophils % Seg Neuts % (Manual) Lymphocytes % (Manual) Seg Neutrophils # Man Lymphocytes # (Manual) PT INR ABG pH ABG pO2 ABG HCO3 ABG Base Excess ABG Hemoglobin Oxyhemoglobin Sodium Potassium Chloride Carbon Dioxide BUN Creatinine Glucose POC Glucose 119 H 199 H Lactic Acid Calcium Phosphorus Magnesium Total Bilirubin Direct Bilirubin AST ALT Alkaline Phosphatase Total Protein Albumin Lipase Ur Specific [place] Vancomycin Trough Coronavirus (PCR) Positive A 05/30/21 05/30/21 05/30/21 00:37 05:54 06:50 WBC RBC Hgb MCV RDW Plt Count Lymph % (Auto) Lymph # (Auto) Seg Neutrophils % Seg Neuts % (Manual) Lymphocytes % (Manual) Seg Neutrophils # Man Lymphocytes # (Manual) PT INR ABG pH ABG pO2 ABG HCO3 ABG Base Excess ABG Hemoglobin Oxyhemoglobin Sodium Potassium Chloride Carbon Dioxide BUN Creatinine Glucose POC Glucose 117 H 56 L 157 H Lactic Acid Calcium Phosphorus Magnesium Total Bilirubin Direct Bilirubin AST ALT Alkaline Phosphatase Total Protein Albumin Lipase Ur Specific [place] Vancomycin Trough Coronavirus (PCR) 05/30/21 05/30/21 05/31/21 17:18 23:54 05:27 WBC RBC Hgb MCV RDW Plt Count Lymph % (Auto) Lymph # (Auto) Seg Neutrophils % Seg Neuts % (Manual) Lymphocytes % (Manual) Seg Neutrophils # Man Lymphocytes # (Manual) PT INR ABG pH ABG pO2 ABG HCO3 ABG Base Excess ABG Hemoglobin Oxyhemoglobin Sodium Potassium Chloride Carbon Dioxide BUN Creatinine Glucose POC Glucose 181 H 130 H 112 H Lactic Acid Calcium Phosphorus Magnesium Total Bilirubin Direct Bilirubin AST ALT Alkaline Phosphatase Total Protein Albumin Lipase Ur Specific [place] Vancomycin Trough Coronavirus (PCR) 05/31/21 12:06 WBC RBC Hgb MCV RDW Plt Count Lymph % (Auto) Lymph # (Auto) Seg Neutrophils % Seg Neuts % (Manual) Lymphocytes % (Manual) Seg Neutrophils # Man Lymphocytes # (Manual) PT INR ABG pH ABG pO2 ABG HCO3 ABG Base Excess ABG Hemoglobin Oxyhemoglobin Sodium Potassium Chloride Carbon Dioxide BUN Creatinine Glucose POC Glucose 170 H Lactic Acid Calcium Phosphorus Magnesium Total Bilirubin Direct Bilirubin AST ALT Alkaline Phosphatase Total Protein Albumin Lipase Ur Specific [place] Vancomycin Trough Coronavirus (PCR) Allied health notes reviewed: nursing
[2021-05-31] MEDS: INSULIN GLARGINE 100 UNITS/ML SUB-Q SCH (21:09)
[2021-05-31] MEDS: ENOXAPARIN 40 MG/0.4 ML INJ SUB-Q SCH (21:09)
[2021-06-01] MEDS: INSULIN LISPRO 100 UNIT/ML SUB-Q SCH ×4 (01:14→19:01)
[2021-06-01] MEDS: HYDROmorphone 1 MG/1 ML INJ IV PRN ×6 (02:15→22:29)
[2021-06-01] MEDS: ALPRAZolam 1 MG TAB PO PRN ×2 (03:42→13:45)
[2021-06-01] MEDS: ARFORMOTEROL 15 MCG/2 ML NEBU IH SCH ×2 (08:51→20:13)
[2021-06-01] MEDS: BUDESONIDE 0.5 MG/2 ML NEBU IH SCH ×2 (08:51→20:13)
[2021-06-01] MEDS: DEXAMETHASONE 2 MG TAB FEEDTUBE SCH (09:51)
[2021-06-01] MEDS: DICYCLOMINE 10 MG CAP PO SCH ×4 (09:52→21:04)
[2021-06-01] MEDS: LANSOPRAZOLE 30 MG SOLUTAB FEEDTUBE SCH (09:56)
--- NOTE | 2021-06-01 11:46 | Progress Note ---
Assessment and Plan Assessment and plan: This is a 51-year-old female with COPD, pancreatic cancer and radiation, s/p pancreatic stent placement, pulmonary fibrosis, hypertension and chronic respiratory failure on 2 L oxygen via nasal cannula who presented to emergency department on 05/11 with complaints of right upper quadrant pain which started approximately at 0200 with nausea and vomiting. Work-up in the emergency department included a CTA chest which showed no pulmonary embolism, mild fluid- filled esophagus and distended stomach with bilateral interstitial opacity in the chest, and CT abdomen/pelvis with contrast which showed persistent pancreatic carcinoma with indwelling metallic stent which is suspected to be occluded. Lab work revealed leukocytosis, transaminitis and lactic acidosis. Patient became hypotensive in the emergency department and required 3 L of IV fluid and was eventually started on vasopressors after placement of femoral central line. Patient was started on empiric antibiotics. Admitted to the hospitalist service with consults to GI and CCM for transaminitis, possible sepsis, and lactic acidosis. Acute on chronic hypoxic respiratory failure Septic shock Transaminitis Hyperbilirubinemia Pulmonary fibrosis/ILD Pancreatic cancer -CT abdomen/pelvis showed pancreatic cancer with metallic stent with possible occlusion, mild pelvic fluid and mild colonic thickening Thrombocytopenia 05/12: Patient remains on high-dose Levophed and vasopressin. Given 1 L LR bolus. GI would like an MRCP to be conducted which has been ordered. Patient cleared for sips of water. Added Tessalon due to severe cough. Potassium repleted. Covid PCR negative. 05/13: Remains on Levophed and vasopressin has been off since yesterday evening. Started on stress dose steroids. MRCP pending. Hypokalemia, hypomagnesemia and hypophosphatemia repleted. Liver enzymes trending down. Started on D5 normal saline yesterday. 05/14: Patient with worsen respiratory status this am, tachypneic with increased O2 requirement. On full support on the Bipap this am with worsening diffuse bilateral opacities on CXR, s/p X1 dose of IV lasix overnight. Patient remains afebrile with no leukocytosis. Will continue IV Lasix X3 doses, f/u CXR in the am. D/W CCM due to patient worsening respiratory status hold on MRCP for today. Patient is off Levophed this am, leave pressors on standby might need to be put back on low dose pressors with IV diuretic. Patient also noted with Rt. fem CVC which was inserted in the ED, most likely due to be change, unsuccessfult PICC by IVT today and patient is refusing Port access at this time. 05/15: Patient remains on continuous Bipap overnight, desat when bipap is removed for mouth care. Plan to wean Fio2 as tolerated for SPO2 goal above 90%. Febrile overnight, TMAX 101.4, on IV abx zosyn, repeat blood culture ordered. Low K and phosph repleted, repeat labs in the am. 05/16: Patient back on full support on the Bipap, still not tolerating FiO2 wean, patient desat in the 80s. D/w CCM plan to continue continuous bipap for now, patient going on over 4 days with no nutrition plan to initiate TPN tomorrow. D10w gtt added for hypoglycemia. Patient platelet continue to steadily drop, given patient's history with continue AC for now, H&H is stable, no s/s of any active bleeding. Electrolytes repleted, will continue to trend CBC, BMP, mg, and phos. MRCP canceled, plan to reorder once patient's respiratory status is more stable. 05/17: Patient remains on continuous Bipap. Patient remains on low dose Levophed, plan to wean off pressors as tolerated for a MAP above 65. Clinimix initiated overnight, plan to start TPN tonight. Hyperglycemic overnight, SSI was initiated. Low phos repleted, repeat lab in the am. 05/18: Down to 60% FIo2 on the Bipap, SPO2 above 97%. Off pressros this am, TPN is running. Patient is now hyperglycemic, SSI adjusted. Consider basal dose, lantus if hyperglycemia persist. This am labs noted, hyperkalemia and really high glucose noted totally different from normal trend, orders placed for redraw. 05/19: Overnight events noted. Started on PRN haldol for agitation. Patient placed on heated high Flow at 100%, 40L SPO2 at 100%. Continue to wean Fio2 as tolerated for SPO2 for SPO2 above 92%. Continue TPN for now. Patient still hyperglycemic basal dose lantus added Qhs. 05/20: Patient is tolerating HHFL NC, SPO2 above 95%. Continue HHFL NC during and Bipap at night. Still on TPN for nutrition, hyperglycemia persists- basal insulin increased. Low K and phosp was repleted, repeat lab in the am. 05/21: Patient unable to tolerate OptiFlow for more than couple hours and was placed back on BiPAP due to desaturation. Patient remains on TPN for nutrition which was held today due to hyperkalemia. P.m. BMP ordered but not collected. Patient refused to have port accessed and PICC line ordered. Down grading to [facility] status 05/21 abdominal ultrasound shows findings of emergency megaly and steatosis without other significant abnormality in the right upper quadrant. ST eval ordered and Ntr consult for cyclic TF. midline ordered 05/23/ Patient with acute on chronic resp failure, COPD, pancreatic cancer. She has been transferred to [facility]. She is on BIPAP Hypomag. Replace and recheck in am 05/24/21 Patient with acute on chronic resp failure. Still on BIPAP To start tube feeding 05/25/21 Patient with acute on chronic respiratory failure She desaturated down to Oxygen sat 85% today Will order CT Angio to r/o pulmonary embolism 05/26/21: patient remains on bipap, o2 sat in 90s. CT angio not completed yesterday as patient could not lay flat. Add dilaudid for improved pain control to patient medications and advised staff scientist to re-attempt CT angio. Patient has a poor prognosis given pulmonary fibrosis and pancreatic cancer. Will likely re- visit talks of palliaitive care as she may benefit more from this. 05/27/21: Remains bipap dependent. D/w patient regarding comfort care/hospice, she is interested. CM consulted. Patient would still like to remain full code 05/28/21: Remains bipap dependent. Spoke with Eriberto (daughter) who states that she is in agreement for comfort measures for her mother. Coordinating with case management for inpatient hospice referral. Daughter also requested to see her mother in person. Unfortunately due to visitation limitations as a result of the COVID-19 pandemic, daughter will only be able to communicate via telecommunication devices at this time. Care staff was notified the patient is [place]-speaking and to call the daughter if they would like to communicate with the patient. 05/29/2021: Spoke with Eriberto (daughter) who states that she is in agreement for comfort measures for her mother. Referral made to [facility]. Patient will discharge to inpatient hospice today. 05/30/2021: Patient's covid test results returned positive. Patient's pending discharge was cancelled as inpatient hospice will not accept a covid + patient. Case Management met with patient's daughter to update on status. Patient's prognosis remains poor. Patient on BiPAP (IPAP 15, EPAP 10, FiO2 85%). Patient started on steroids yesterday and we will start remdesivir today. I discussed the case with pulmonary. Patient will remain a full code I discussed the case with the daughter. 05/31/2021: Patient remains on BiPAP (IPAP 15, EPAP 10, FiO2 80%). Patient's prognosis remains poor. Continue steroids and remdesivir. 06/01/2021. Patient currently off BiPAP and with high flow nasal cannula/nonrebreather 40 L O2 with FiO2 of 100%. Continue BiPAP at night. Patient will be intubated and placed on mechanical ventilation if she decompensates. Patient's prognosis remains poor. Continue steroids and remdesivir. Pulmonary Taper dexamethasone to 4 mg IV daily. Follow-up serial chest x-ray and ABGs. Patient with gentle diuresis with Lasix 20 mg IV daily. History Interval history: No new issues overnight Hospitalist Physical - Constitutional Vitals: Temp Pulse Resp BP Pulse Ox 98.2 F 111 H 29 H 117/76 95 06/01/21 07:53 06/01/21 10:00 06/01/21 10:00 06/01/21 10:00 06/01/21 10:00 General appearance: Present: severe distress, well-nourished, other (Patient currently on BiPAP) - EENT Eyes: Present: PERRL, EOM intact ENT: hearing intact, clear oral mucosa, dentition normal - Neck Neck: Present: supple, normal ROM - Respiratory Respiratory effort: normal Respiratory: bilateral: CTA - Cardiovascular Rhythm: regular Heart Sounds: Present: S1 & S2. Absent: gallop, rub - Extremities Extremities: no ischemia, No edema, Full ROM - Abdominal General gastrointestinal: soft, non-tender, non-distended, normal bowel sounds - Integumentary Integumentary: Present: clear, warm, dry - Neurologic Neurologic: CNII-XII intact, moves all extremities Results - Labs CBC & Chem 7: 05/25/21 04:25 05/29/21 05:07 Labs: Laboratory Last Values WBC 11.7 K/mm3 (4.5-11.0) H 05/25/21 04:25 RBC 3.28 M/mm3 (3.65-5.03) L 05/25/21 04:25 Hgb 10.3 gm/dl (10.1-14.3) 05/25/21 04:25 Hct 31.6 % (30.3-42.9) 05/25/21 04:25 MCV 96 fl (79-97) 05/25/21 04:25 MCH 32 pg (28-32) 05/25/21 04:25 MCHC 33 % (30-34) 05/25/21 04:25 RDW 19.9 % (13.2-15.2) H 05/25/21 04:25 Plt Count 142 K/mm3 (140-440) 05/25/21 04:25 Lymph % (Auto) 7.4 % (13.4-35.0) L 05/15/21 04:45 [place] % (Auto) 6.7 % (0.0-7.3) 05/15/21 04:45 Eos % (Auto) 4.0 % (0.0-4.3) 05/15/21 04:45 Baso % (Auto) 0.7 % (0.0-1.8) 05/15/21 04:45 Lymph # (Auto) 0.6 K/mm3 (1.2-5.4) L 05/15/21 04:45 [place] # (Auto) 0.6 K/mm3 (0.0-0.8) 05/15/21 04:45 Eos # (Auto) 0.3 K/mm3 (0.0-0.4) 05/15/21 04:45 Baso # (Auto) 0.1 K/mm3 (0.0-0.1) 05/15/21 04:45 Add Manual Diff Complete 05/12/21 04:08 Total Counted 200 05/12/21 04:08 Seg Neutrophils % 81.2 % (40.0-70.0) H 05/15/21 04:45 Seg Neuts % (Manual) 85.5 % (40.0-70.0) H 05/12/21 04:08 Band Neutrophils % 8.5 % 05/12/21 04:08 Lymphocytes % (Manual) 2.0 % (13.4-35.0) L 05/12/21 04:08 Monocytes % (Manual) 3.0 % (0.0-7.3) 05/12/21 04:08 Eosinophils % (Manual) 1.0 % (0.0-4.3) 05/12/21 04:08 Nucleated RBC % Not Reportable 05/12/21 04:08 Seg Neutrophils # 6.7 K/mm3 (1.8-7.7) 05/15/21 04:45 Seg Neutrophils # Man 19.5 K/mm3 (1.8-7.7) H 05/12/21 04:08 Band Neutrophils # 1.9 K/mm3 05/12/21 04:08 Lymphocytes # (Manual) 0.5 K/mm3 (1.2-5.4) L 05/12/21 04:08 Abs React Lymphs (Man) 0.0 K/mm3 05/12/21 04:08 Monocytes # (Manual) 0.7 K/mm3 (0.0-0.8) 05/12/21 04:08 Eosinophils # (Manual) 0.2 K/mm3 (0.0-0.4) 05/12/21 04:08 Basophils # (Manual) 0.0 K/mm3 (0.0-0.1) 05/12/21 04:08 Metamyelocytes # 0.0 K/mm3 05/12/21 04:08 Myelocytes # 0.0 K/mm3 05/12/21 04:08 Promyelocytes # 0.0 K/mm3 05/12/21 04:08 Blast Cells # 0.0 K/mm3 05/12/21 04:08 WBC Morphology Not Reportable 05/12/21 04:08 Hypersegmented Neuts Not Reportable 05/12/21 04:08 Hyposegmented Neuts Not Reportable 05/12/21 04:08 Hypogranular Neuts Not Reportable 05/12/21 04:08 Smudge Cells Not Reportable 05/12/21 04:08 Toxic Granulation Not Reportable 05/12/21 04:08 Toxic Vacuolation Not Reportable 05/12/21 04:08 Dohle Bodies Not Reportable 05/12/21 04:08 Pelger-Huet Anomaly Not Reportable 05/12/21 04:08 Elizabeth Rods Not Reportable 05/12/21 04:08 Platelet Estimate Consistent w auto 05/12/21 04:08 Clumped Platelets Not Reportable 05/12/21 04:08 Plt Clumps, EDTA Not Reportable 05/12/21 04:08 Large Platelets Not Reportable 05/12/21 04:08 Giant Platelets Not Reportable 05/12/21 04:08 Platelet Satelliting Not Reportable 05/12/21 04:08 Plt Morphology Comment Not Reportable 05/12/21 04:08 RBC Morphology Not Reportable 05/12/21 04:08 Dimorphic RBCs Not Reportable 05/12/21 04:08 Polychromasia Not Reportable 05/12/21 04:08 Hypochromasia Not Reportable 05/12/21 04:08 Poikilocytosis Not Reportable 05/12/21 04:08 Anisocytosis 1+ 05/12/21 04:08 Microcytosis Not Reportable 05/12/21 04:08 Macrocytosis Not Reportable 05/12/21 04:08 Spherocytes Not Reportable 05/12/21 04:08 Pappenheimer Bodies Not Reportable 05/12/21 04:08 Sickle Cells Not Reportable 05/12/21 04:08 Target Cells Not Reportable 05/12/21 04:08 Tear Drop Cells Not Reportable 05/12/21 04:08 Ovalocytes Not Reportable 05/12/21 04:08 Helmet Cells Not Reportable 05/12/21 04:08 [place] Bodies Not Reportable 05/12/21 04:08 [place] Rings Not Reportable 05/12/21 04:08 Marcin Cells Not Reportable 05/12/21 04:08 Bite Cells Not Reportable 05/12/21 04:08 Crenated Cell Not Reportable 05/12/21 04:08 Elliptocytes Not Reportable 05/12/21 04:08 Acanthocytes (Spur) Not Reportable 05/12/21 04:08 Rouleaux Not Reportable 05/12/21 04:08 Hemoglobin C Crystals Not Reportable 05/12/21 04:08 Schistocytes Not Reportable 05/12/21 04:08 Malaria parasites Not Reportable 05/12/21 04:08 [place] Bodies Not Reportable 05/12/21 04:08 Hem Pathologist Commnt No 05/12/21 04:08 PT 16.9 Sec. (12.2-14.9) H 05/23/21 10:15 INR 1.24 (0.87-1.13) H 05/23/21 10:15 ABG pH 7.482 pH Units (7.350-7.450) H 05/19/21 14:14 ABG pCO2 42.9 mm Hg 05/19/21 14:14 ABG pO2 111.7 mm Hg (80.0-90.0) H 05/19/21 14:14 ABG HCO3 31.4 mmol/L (20.0-26.0) H 05/19/21 14:14 ABG O2 Saturation 98.2 % (95.0-99.0) 05/19/21 14:14 ABG O2 Content 15.2 (0.0-44) 05/19/21 14:14 ABG Base Excess 7.2 mmol/L (-2.0-3.0) H 05/19/21 14:14 ABG Hemoglobin 11.1 gm/dl (12.0-16.0) L 05/19/21 14:14 ABG Carboxyhemoglobin 1.1 % (0.0-5.0) 05/19/21 14:14 ABG Methemoglobin 0.6 % (0.0-1.5) 05/19/21 14:14 Oxyhemoglobin 96.4 % (95.0-99.0) 05/19/21 14:14 FiO2 100 % 05/19/21 14:14 Sodium 148 mmol/L (137-145) H D 05/29/21 05:07 Potassium 3.0 mmol/L (3.6-5.0) L 05/29/21 05:07 Chloride 108.0 mmol/L (98-107) H 05/29/21 05:07 Carbon Dioxide 30 mmol/L (22-30) 05/29/21 05:07 Anion Gap 13 mmol/L 05/29/21 05:07 BUN 16 mg/dL (7-17) 05/29/21 05:07 Creatinine 0.2 mg/dL (0.6-1.2) L 05/29/21 05:07 Estimated GFR > 60 ml/min 05/29/21 05:07 BUN/Creatinine Ratio 80 % 05/29/21 05:07 Glucose 155 mg/dL (65-100) H 05/29/21 05:07 POC Glucose 75 mg/dL (70-105) 06/01/21 11:27 Hemoglobin A1c 5.2 % (4-6) 05/12/21 04:08 Lactic Acid 3.30 mmol/L (0.7-2.0) H* 05/12/21 Unknown Calcium 7.7 mg/dL (8.4-10.2) L 05/29/21 05:07 Phosphorus 2.60 mg/dL (2.5-4.5) 05/24/21 04:16 Magnesium 2.00 mg/dL (1.7-2.3) 05/24/21 04:16 Total Bilirubin 2.30 mg/dL (0.1-1.2) H 05/23/21 10:15 Direct Bilirubin 1.6 mg/dL (0-0.2) H 05/23/21 10:15 Indirect Bilirubin 0.7 mg/dL 05/23/21 10:15 AST 161 units/L (5-40) H 05/23/21 10:15 ALT 396 units/L (7-56) H 05/23/21 10:15 Alkaline Phosphatase 186 units/L (35-129) H 05/23/21 10:15 Total Protein 4.7 g/dL (6.3-8.2) L 05/23/21 10:15 Albumin 2.0 g/dL (3.9-5) L 05/23/21 10:15 Albumin/Globulin Ratio 0.7 % 05/23/21 10:15 Triglycerides 90 mg/dL (2-149) 05/23/21 10:15 Lipase 3 units/L (13-60) L 05/11/21 05:43 Urine Color [place] (Yellow) 05/11/21 11:18 Urine Turbidity Clear (Clear) 05/11/21 11:18 Urine pH 6.0 (5.0-7.0) 05/11/21 11:18 Ur Specific [place] 1.035 (1.003-1.030) H 05/11/21 11:18 Urine Protein 100 mg/dl mg/dL (Negative) 05/11/21 11:18 Urine Glucose (UA) Neg mg/dL (Negative) 05/11/21 11:18 Urine Ketones Neg mg/dL (Negative) 05/11/21 11:18 Urine Blood Neg (Negative) 05/11/21 11:18 Urine Nitrite Neg (Negative) 05/11/21 11:18 Urine Bilirubin Neg (Negative) 05/11/21 11:18 Urine Urobilinogen < 2.0 mg/dL (<2.0) 05/11/21 11:18 Ur Leukocyte Esterase Neg (Negative) 05/11/21 11:18 Urine WBC (Auto) 2.0 /HPF (0.0-6.0) 05/11/21 11:18 Urine RBC (Auto) 1.0 /HPF (0.0-6.0) 05/11/21 11:18 Urine Mucus Few /HPF 05/11/21 11:18 Vancomycin Trough 25.3 ug/mL (5.0-20.0) H 05/14/21 15:20 Coronavirus (PCR) Positive (Negative) A 05/29/21 08:20 Hepatitis A IgM Ab Non-reactive (NonReactive) 05/12/21 12:30 Hep Bs Antigen Nonreactive (Negative) 05/12/21 12:30 Hep B Core IgM Ab Non-reactive (NonReactive) 05/12/21 12:30 Hepatitis C Antibody Non-reactive (NonReactive) 05/12/21 12:30 Rivas/IV: Voiding Method Indwelling Catheter Active Medications - Current Medications Current Medications: Generic Name Dose Route Start Last Admin Trade Name Freq PRN Reason Stop Dose Admin Acetaminophen 650 mg 05/11/21 21:40 05/14/21 20:06 Acetaminophen 325 Mg Tab PO 650 mg Q4H PRN Administration Pain MILD(1-3)/Fever >100.5/WOODS Alprazolam 1 mg 05/28/21 09:53 06/01/21 03:42 Alprazolam 1 Mg Tab PO 1 mg Q8H PRN Administration Anxiety Lipase/Protease/Amylase 1 each 05/22/21 16:30 Lipase 10,500/Protease 25,000/Amylase 43,750 (Units) Dr Baker FEEDTUBE PRN PRN For Clogged Feeding Tube Arformoterol Tartrate 15 mcg 05/12/21 08:00 06/01/21 08:51 Arformoterol 15 Mcg/2 Ml Nebu IH Not Given Q12HRT ABRAHAN Benzonatate 100 mg 05/12/21 15:53 05/23/21 22:02 Benzonatate 100 Mg Cap PO 100 mg Q8HR PRN Administration Cough Budesonide 0.5 mg 05/12/21 08:00 06/01/21 08:51 Budesonide 0.5 Mg/2 Ml Nebu IH Not Given Q12HRT ABRAHAN Dexamethasone 6 mg 05/28/21 10:00 06/01/21 09:51 Dexamethasone 2 Mg Tab FEEDTUBE 6 mg Q24HR ABRAHAN Administration Dextrose 50 ml 05/12/21 11:57 05/30/21 06:10 Dextrose 50% In Water (25gm) 50 Ml Syringe IV 50 ml Q30MIN PRN Administration Hypoglycemia Protocol Dicyclomine HCl 10 mg 05/23/21 14:00 06/01/21 09:52 Dicyclomine 10 Mg Cap PO 10 mg QID ABRAHAN Administration Enoxaparin Sodium 40 mg 05/30/21 22:00 05/31/21 21:09 Enoxaparin 40 Mg/0.4 Ml Inj SUB-Q 40 mg QDAY@2200 ABRAHAN Administration Haloperidol Lactate 5 mg 05/19/21 15:00 05/31/21 22:13 Haloperidol Lactate 5 Mg/1 Ml Inj IV 5 mg Q8H PRN Administration Agitation Hydromorphone HCl 0.5 mg 05/26/21 14:58 06/01/21 09:52 Hydromorphone 1 Mg/1 Ml Inj IV 0.5 mg Q3H PRN Administration Pain , Severe (7-10) Insulin Glargine 20 units 05/22/21 22:00 05/31/21 21:09 Insulin Glargine 100 Units/Ml SUB-Q 20 units QHS ABRAHAN Administration Insulin Human Lispro 0 unit 05/17/21 12:00 06/01/21 05:16 Insulin Lispro 100 Unit/Ml SUB-Q Not Given Q6HR [facility] Protocol Lansoprazole 30 mg 05/28/21 10:00 06/01/21 09:56 Lansoprazole 30 Mg Solutab FEEDTUBE 30 mg QDAY ABRAHAN Administration Metoclopramide HCl 10 mg 05/11/21 21:40 Metoclopramide 10 Mg/2 Ml Inj IV Q6H PRN Nausea And Vomiting Morphine Sulfate 2 mg 05/11/21 21:40 05/26/21 09:42 Morphine 2 Mg/1 Ml Inj IV 2 mg Q4H PRN Administration Pain, Moderate (4-6) Ondansetron HCl 4 mg 05/11/21 21:40 05/15/21 09:57 Ondansetron 4 Mg/2 Ml Inj IV 4 mg Q8H PRN Administration Nausea And Vomiting Simple Syrup 15 ml 05/22/21 16:30 Simple Syrup 15 Ml FEEDTUBE PRN PRN Hypoglycemia Simple Syrup 30 ml 05/22/21 16:30 Simple Syrup 15 Ml FEEDTUBE PRN PRN Hypoglycemia Sodium Bicarbonate 325 mg 05/22/21 16:30 Sodium Bicarbonate 325 Mg Tab FEEDTUBE PRN PRN For Clogged Feeding Tube Sodium Chloride 10 ml 05/11/21 22:00 06/01/21 09:51 Sodium Chloride 0.9% 10 Ml Flush Syringe IV 10 ml BID ABRAHAN Administration Sodium Chloride 10 ml 05/11/21 21:40 05/23/21 21:00 Sodium Chloride 0.9% 10 Ml Flush Syringe IV 10 ml PRN PRN Administration LINE FLUSH Nutrition/Malnutrition Assess - Dietary Evaluation Nutrition/Malnutrition Findings: Nutrition Notes Start: 05/13/21 09:47 Freq: Status: Active Protocol: Document 05/28/21 12:38 MARITZA (Rec: 05/28/21 12:48 MARITZA [id number]) Nutrition Notes Initial or Follow up Reassessment Current Diagnosis COPD,Respiratory Failure Other Pertinent Diagnosis Pancreatic CA, pulmonary fibrosis Current Diet TF - Vital AF 1.2 at 42ml/hr Labs/Tests Reviewed Pertinent Medications Decadron Height 5 ft 2 in Weight 64.4 kg [place] Body Weight (kg) 50.00 BMI 25.9 Weight change and time frame Current wt obtained from bed scale Weight Status Appropriate Subjective/Other Information Pt transferred to [facility] on . She remains dependent on BiPap. Per FAMILY PROTECTION SPECIALIST eval on 05/23, pt safe for a pureed diet, however, tends to desaturate when off the BiPap. TF infusing at goal rate at time of visit (12:35). Pt tolerating TF. Percent of energy/protein needs met: 84% energy 100% pro Burn Absent Trauma Absent #2 Nutrition Diagnosis Malnutrition Diagnosis Progress(for reassessment Continues documentation) #1 Nutrition Diagnosis Altered GI function As Evidenced by Signs and Symptoms pt tolerating EN support Diagnosis Progress(for reassessment Resolved documentation) Is patient on ventilator? No Is Patient Ambulatory and/or Out of Bed No REE-([facility]-confined to bed) 1447.020 Calculation Used for Recommendations [facility] Additional Notes Pro needs 1-1.2g/k-77g/ day Fluid needs 1ml/kcal Nutrition Intervention Nutrition Support: Change TF formula to Glucerna 1.2 at 50ml/hr Kcal 1,440 Protein (gm) 72 Carbohydrates (gm) 137 Fat (gm) 72 Fluid (mL) 966 Fiber (gm) 19 Goal #1 TF tolerance Goal #2 TF to meet at least 75% energy and pro needs Follow-Up By: 06/01/21 Additional Comments F/U: TF formula change and tolerance, resp status
[2021-06-01] MEDS ORDERED: ETOMIDATE 20 MG/10 ML INJ IV ONE (11:48)
[2021-06-01] MEDS ORDERED: SUCCINYLCHOLINE CHLORIDE 200 MG/10 ML INJ MDV ONE (11:48)
--- NOTE | 2021-06-01 14:15 | Progress Note ---
Assessment and Plan Septic shock possible hepatobiliary source Lactic acidosis h/o pulmonary fibrosis, Acute on chronic respiratory failure on home O2 of 2 L nasal cannula Transaminitis, biliary dilation, r/o cholangitis Hyperchloremia, metabolic acidosis, hypokalemia Hypoglycemia h/o pancreatic head cancer- chemoradiation therapy h/o Hypertension - continue to engage family re: goals of care (family at this point want her to remain a full CODE despite their agreeing to hospice care transfer) - prn CXR's & ABG's at this point - conservative volume management (prn diuresis) - continue care as below otherwise; - continue BIPAP scheduled qhs with prn daytime use - prn vasopressors for target MAP > 65 mmHg - MRCP pending as she remains tenuous from a respiratory standpoint - continue anti-infective's; de-escalate per ID recommendations - continue accuchecks with glycemic control per SSI (While critically ill target blood glucose of 140-180 mg/dL; avoid hypoglycemia) - continue to wean supplemental oxygen for target O2 sat's > 90% acutely - aspiration precautions - bronchodilators with pulmonary hygiene per RT - avoid nephrotoxins, renally dose all medications - prn analgesia per pain score - Maintenance of sleep-wake cycle, avoid delirium - G.I. & VTE prophylaxis - PT/OT/ROM exercises - mobility protocols for pressure ulcer prophylaxis - Monitor hemodynamics closely - continue other care per attending / other consultants - discharge planning ongoing concurrently .... Re-evaluate in am & prn CONDITION: CRITICAL PROGNOSIS: GUARDED CODE STATUS: FULL CODE The high probability of a clinically significant, sudden or life-threatening deterioration of the [respiratory, cardiovascular, GI & neurologic] system(s) required my full and direct attention, intervention and personal management. The aggregate critical care time was [35] minutes without overlap. Time includes spent on; [x] Data Review and interpretation [x] Patient assessment and monitoring of vital signs [x] Documentation [x] Medication orders and management Subjective Date of service: 06/01/21 Principal diagnosis: Septic shock; Pulm fibrosis; Hypoxemic resp failure; COVID- 19 infxn Interval history: Patient is seen today for: Septic shock; pulmonary fibrosis; Acute on chronic hypoxemic respiratory failure; Transaminitis; h/o pancreatic head cancer; HTN Seen and examined at bedside; 24hour events reviewed; nursing and respiratory care staff consulted; no adverse overnight events reported to me; resting in bed; tolerating HFNC well at this point albeit at 100% FiO2; somnolent; no N/V/F/C Objective Vital Signs - 12hr 06/01/21 06/01/21 06/01/21 03:00 04:00 05:00 Temperature 97.3 F L Pulse Rate 98 H 106 H 99 H Pulse Rate [ 101 H From Monitor] Respiratory 19 25 H 28 H Rate Blood Pressure 106/73 114/80 111/73 O2 Sat by Pulse 93 88 Oximetry 06/01/21 06/01/21 06/01/21 06:00 07:00 07:53 Temperature 98.2 F Pulse Rate 97 H 97 H Pulse Rate [ From Monitor] Respiratory 25 H 23 Rate Blood Pressure 95/45 83/59 O2 Sat by Pulse 97 Oximetry 06/01/21 06/01/21 06/01/21 08:00 08:51 09:00 Temperature Pulse Rate 98 H 109 H Pulse Rate [ 98 H From Monitor] Respiratory 17 25 H Rate Blood Pressure 93/61 107/74 O2 Sat by Pulse 95 94 90 Oximetry 06/01/21 06/01/21 06/01/21 10:00 11:00 11:56 Temperature 98.7 F Pulse Rate 111 H 98 H Pulse Rate [ From Monitor] Respiratory 29 H 13 Rate Blood Pressure 117/76 113/69 O2 Sat by Pulse 95 98 Oximetry 06/01/21 12:00 Temperature Pulse Rate 97 H Pulse Rate [ 97 H From Monitor] Respiratory 16 Rate Blood Pressure 105/68 O2 Sat by Pulse 97 Oximetry Constitutional: asleep, appears uncomfortable, other (mildly increased respiratory effort at rest) Eyes: non-icteric ENT: oropharynx moist Neck: supple, no lymphadenopathy, no JVD Effort: mildly labored Ascultation: Bilateral: diminished breath sounds, rales (posterior bases) Percussion: Bilateral: not dull Cardiovascular: regular rate and rhythm, other (S1,S2) Gastrointestinal: normoactive bowel sounds, hypoactive bowel sounds, soft, non- distended (protuberant) Integumentary: normal Extremities: no cyanosis, no edema, pulses normal, other (right femoral CVL) Neurologic: normal mental status, non-focal exam, pupils equal and round, other (somnolent) Psychiatric: other (somnolent) CBC and BMP: 06/02/21 08:59 06/02/21 08:59 ABG, PT/INR, D-dimer: ABG ABG pH 7.482 pH Units (7.350-7.450) H 05/19/21 14:14 ABG pCO2 42.9 mm Hg 05/19/21 14:14 ABG pO2 111.7 mm Hg (80.0-90.0) H 05/19/21 14:14 ABG O2 Saturation 98.2 % (95.0-99.0) 05/19/21 14:14 PT/INR, D-dimer PT 16.9 Sec. (12.2-14.9) H 05/23/21 10:15 INR 1.24 (0.87-1.13) H 05/23/21 10:15 Abnormal lab findings: Abnormal Labs 05/11/21 05/11/21 05/11/21 05:43 05:43 05:43 WBC RBC Hgb MCV 98 H RDW 17.7 H Plt Count Lymph % (Auto) 10.8 L Lymph # (Auto) 0.6 L Seg Neutrophils % 84.1 H Seg Neuts % (Manual) Lymphocytes % (Manual) Seg Neutrophils # Man Lymphocytes # (Manual) PT 16.0 H INR 1.16 H ABG pH ABG pO2 ABG HCO3 ABG Base Excess ABG Hemoglobin Oxyhemoglobin Sodium Potassium Chloride Carbon Dioxide 21 L BUN 4 L Creatinine 0.4 L Glucose POC Glucose Lactic Acid Calcium 8.3 L Phosphorus Magnesium Total Bilirubin 2.10 H Direct Bilirubin 1.4 H AST 335 H ALT 57 H Alkaline Phosphatase 339 H Total Protein Albumin 2.4 L Lipase 3 L Ur Specific [place] Vancomycin Trough Coronavirus (PCR) 05/11/21 05/11/21 05/12/21 11:18 12:28 04:08 WBC RBC Hgb MCV RDW Plt Count Lymph % (Auto) Lymph # (Auto) Seg Neutrophils % Seg Neuts % (Manual) Lymphocytes % (Manual) Seg Neutrophils # Man Lymphocytes # (Manual) PT INR ABG pH ABG pO2 ABG HCO3 ABG Base Excess ABG Hemoglobin Oxyhemoglobin Sodium Potassium Chloride Carbon Dioxide BUN Creatinine Glucose POC Glucose Lactic Acid 4.20 H* 4.50 H* Calcium Phosphorus Magnesium Total Bilirubin Direct Bilirubin AST ALT Alkaline Phosphatase Total Protein Albumin Lipase Ur Specific [place] 1.035 H Vancomycin Trough Coronavirus (PCR) 05/12/21 05/12/21 05/12/21 04:08 04:08 09:47 WBC 22.8 H RBC 3.39 L Hgb MCV 98 H RDW 17.7 H Plt Count Lymph % (Auto) Lymph # (Auto) Seg Neutrophils % Seg Neuts % (Manual) 85.5 H Lymphocytes % (Manual) 2.0 L Seg Neutrophils # Man 19.5 H Lymphocytes # (Manual) 0.5 L PT INR ABG pH ABG pO2 ABG HCO3 ABG Base Excess ABG Hemoglobin Oxyhemoglobin Sodium Potassium 3.3 L Chloride 108.9 H Carbon Dioxide 17 L BUN 4 L Creatinine 0.5 L Glucose 106 H POC Glucose Lactic Acid 2.60 H* Calcium 6.4 L D Phosphorus Magnesium Total Bilirubin 2.10 H Direct Bilirubin AST 156 H ALT 61 H Alkaline Phosphatase 317 H Total Protein 5.4 L D Albumin 1.8 L Lipase Ur Specific [place] Vancomycin Trough Coronavirus (PCR) 05/12/21 05/12/21 05/12/21 11:47 12:30 12:36 WBC RBC Hgb MCV RDW Plt Count Lymph % (Auto) Lymph # (Auto) Seg Neutrophils % Seg Neuts % (Manual) Lymphocytes % (Manual) Seg Neutrophils # Man Lymphocytes # (Manual) PT INR ABG pH ABG pO2 ABG HCO3 ABG Base Excess ABG Hemoglobin Oxyhemoglobin Sodium Potassium Chloride Carbon Dioxide BUN Creatinine Glucose POC Glucose 59 L 120 H Lactic Acid 2.50 H* Calcium Phosphorus Magnesium Total Bilirubin Direct Bilirubin AST ALT Alkaline Phosphatase Total Protein Albumin Lipase Ur Specific [place] Vancomycin Trough Coronavirus (PCR) 05/12/21 05/12/21 05/13/21 23:45 Unknown 04:00 WBC 19.8 H RBC 3.52 L Hgb MCV 98 H RDW 18.5 H Plt Count Lymph % (Auto) Lymph # (Auto) Seg Neutrophils % Seg Neuts % (Manual) Lymphocytes % (Manual) Seg Neutrophils # Man Lymphocytes # (Manual) PT INR ABG pH ABG pO2 ABG HCO3 ABG Base Excess ABG Hemoglobin Oxyhemoglobin Sodium Potassium Chloride Carbon Dioxide BUN Creatinine Glucose POC Glucose 119 H Lactic Acid 3.30 H* Calcium Phosphorus Magnesium Total Bilirubin Direct Bilirubin AST ALT Alkaline Phosphatase Total Protein Albumin Lipase Ur Specific [place] Vancomycin Trough Coronavirus (PCR) 05/13/21 05/13/21 05/13/21 04:00 05:42 12:19 WBC RBC Hgb MCV RDW Plt Count Lymph % (Auto) Lymph # (Auto) Seg Neutrophils % Seg Neuts % (Manual) Lymphocytes % (Manual) Seg Neutrophils # Man Lymphocytes # (Manual) PT INR ABG pH ABG pO2 ABG HCO3 ABG Base Excess ABG Hemoglobin Oxyhemoglobin Sodium Potassium 3.4 L Chloride 107.1 H Carbon Dioxide 19 L BUN 4 L Creatinine 0.4 L Glucose 157 H POC Glucose 143 H 110 H Lactic Acid Calcium 7.4 L D Phosphorus 1.60 L Magnesium 1.50 L Total Bilirubin 1.40 H Direct Bilirubin AST 95 H ALT Alkaline Phosphatase 328 H Total Protein 5.5 L Albumin 1.6 L Lipase Ur Specific [place] Vancomycin Trough Coronavirus (PCR) 05/14/21 05/14/21 05/14/21 06:15 06:15 10:25 WBC 11.7 H RBC 3.41 L Hgb MCV 98 H RDW 18.6 H Plt Count Lymph % (Auto) Lymph # (Auto) Seg Neutrophils % Seg Neuts % (Manual) Lymphocytes % (Manual) Seg Neutrophils # Man Lymphocytes # (Manual) PT INR ABG pH ABG pO2 76.0 L ABG HCO3 27.2 H ABG Base Excess ABG Hemoglobin 11.5 L Oxyhemoglobin 94.4 L Sodium Potassium 3.2 L Chloride Carbon Dioxide BUN 6 L Creatinine 0.5 L Glucose 103 H POC Glucose Lactic Acid Calcium 7.3 L Phosphorus 1.70 L Magnesium Total Bilirubin Direct Bilirubin AST 66 H ALT Alkaline Phosphatase 295 H Total Protein 5.3 L Albumin 1.8 L Lipase Ur Specific [place] Vancomycin Trough Coronavirus (PCR) 05/14/21 05/14/21 05/14/21 15:20 15:20 17:26 WBC RBC Hgb MCV RDW Plt Count Lymph % (Auto) Lymph # (Auto) Seg Neutrophils % Seg Neuts % (Manual) Lymphocytes % (Manual) Seg Neutrophils # Man Lymphocytes # (Manual) PT INR ABG pH ABG pO2 ABG HCO3 ABG Base Excess ABG Hemoglobin Oxyhemoglobin Sodium 146 H D Potassium Chloride 108.4 H Carbon Dioxide BUN 5 L Creatinine 0.5 L Glucose POC Glucose 63 L Lactic Acid Calcium 7.6 L Phosphorus Magnesium Total Bilirubin Direct Bilirubin AST ALT Alkaline Phosphatase Total Protein Albumin Lipase Ur Specific [place] Vancomycin Trough 25.3 H Coronavirus (PCR) 05/14/21 05/15/21 05/15/21 21:27 00:03 00:29 WBC RBC Hgb MCV RDW Plt Count Lymph % (Auto) Lymph # (Auto) Seg Neutrophils % Seg Neuts % (Manual) Lymphocytes % (Manual) Seg Neutrophils # Man Lymphocytes # (Manual) PT INR ABG pH ABG pO2 ABG HCO3 ABG Base Excess ABG Hemoglobin Oxyhemoglobin Sodium Potassium Chloride Carbon Dioxide BUN Creatinine Glucose POC Glucose 52 L 54 L 129 H Lactic Acid Calcium Phosphorus Magnesium Total Bilirubin Direct Bilirubin AST ALT Alkaline Phosphatase Total Protein Albumin Lipase Ur Specific [place] Vancomycin Trough Coronavirus (PCR) 05/15/21 05/15/21 05/15/21 04:45 04:45 11:58 WBC RBC 3.24 L Hgb MCV 98 H RDW 18.5 H Plt Count 122 L Lymph % (Auto) 7.4 L Lymph # (Auto) 0.6 L Seg Neutrophils % 81.2 H Seg Neuts % (Manual) Lymphocytes % (Manual) Seg Neutrophils # Man Lymphocytes # (Manual) PT INR ABG pH ABG pO2 ABG HCO3 ABG Base Excess ABG Hemoglobin Oxyhemoglobin Sodium 146 H Potassium 3.1 L Chloride 108.8 H Carbon Dioxide BUN 6 L Creatinine Glucose 121 H POC Glucose 68 L Lactic Acid Calcium 7.5 L Phosphorus 2.30 L D Magnesium Total Bilirubin 1.90 H Direct Bilirubin AST 55 H ALT Alkaline Phosphatase 231 H Total Protein 5.4 L Albumin 1.5 L Lipase Ur Specific [place] Vancomycin Trough Coronavirus (PCR) 05/15/21 05/16/21 05/16/21 13:50 00:06 00:43 WBC RBC Hgb MCV RDW Plt Count Lymph % (Auto) Lymph # (Auto) Seg Neutrophils % Seg Neuts % (Manual) Lymphocytes % (Manual) Seg Neutrophils # Man Lymphocytes # (Manual) PT INR ABG pH ABG pO2 ABG HCO3 ABG Base Excess ABG Hemoglobin Oxyhemoglobin Sodium Potassium Chloride Carbon Dioxide BUN Creatinine Glucose POC Glucose 147 H 54 L 116 H Lactic Acid Calcium Phosphorus Magnesium Total Bilirubin Direct Bilirubin AST ALT Alkaline Phosphatase Total Protein Albumin Lipase Ur Specific [place] Vancomycin Trough Coronavirus (PCR) 05/16/21 05/16/21 05/16/21 04:31 04:31 05:58 WBC RBC 3.12 L Hgb 9.8 L MCV 98 H RDW 18.2 H Plt Count 115 L Lymph % (Auto) Lymph # (Auto) Seg Neutrophils % Seg Neuts % (Manual) Lymphocytes % (Manual) Seg Neutrophils # Man Lymphocytes # (Manual) PT INR ABG pH ABG pO2 ABG HCO3 ABG Base Excess ABG Hemoglobin Oxyhemoglobin Sodium 146 H Potassium 3.2 L Chloride Carbon Dioxide BUN 5 L Creatinine 0.5 L Glucose POC Glucose 61 L Lactic Acid Calcium 7.2 L Phosphorus 2.30 L Magnesium Total Bilirubin Direct Bilirubin AST ALT Alkaline Phosphatase Total Protein Albumin Lipase Ur Specific [place] Vancomycin Trough Coronavirus (PCR) 05/16/21 05/16/21 05/17/21 08:11 23:42 04:15 WBC RBC Hgb MCV RDW Plt Count Lymph % (Auto) Lymph # (Auto) Seg Neutrophils % Seg Neuts % (Manual) Lymphocytes % (Manual) Seg Neutrophils # Man Lymphocytes # (Manual) PT INR ABG pH ABG pO2 ABG HCO3 ABG Base Excess ABG Hemoglobin Oxyhemoglobin Sodium Potassium Chloride Carbon Dioxide BUN Creatinine Glucose POC Glucose 58 L 200 H Lactic Acid Calcium Phosphorus Magnesium Total Bilirubin 1.70 H Direct Bilirubin 1.5 H AST 43 H ALT Alkaline Phosphatase 196 H Total Protein 5.4 L Albumin 1.6 L Lipase Ur Specific [place] Vancomycin Trough Coronavirus (PCR) 05/17/21 05/17/21 05/17/21 04:15 04:15 05:07 WBC RBC 3.26 L Hgb MCV 98 H RDW 18.9 H Plt Count 114 L Lymph % (Auto) Lymph # (Auto) Seg Neutrophils % Seg Neuts % (Manual) Lymphocytes % (Manual) Seg Neutrophils # Man Lymphocytes # (Manual) PT INR ABG pH ABG pO2 ABG HCO3 ABG Base Excess ABG Hemoglobin Oxyhemoglobin Sodium Potassium Chloride Carbon Dioxide 35 H BUN 5 L Creatinine Glucose 274 H POC Glucose 249 H Lactic Acid Calcium 7.7 L Phosphorus 1.50 L D Magnesium Total Bilirubin Direct Bilirubin AST ALT Alkaline Phosphatase Total Protein Albumin Lipase Ur Specific [place] Vancomycin Trough Coronavirus (PCR) 05/17/21 05/17/21 05/17/21 11:56 16:29 23:37 WBC RBC Hgb MCV RDW Plt Count Lymph % (Auto) Lymph # (Auto) Seg Neutrophils % Seg Neuts % (Manual) Lymphocytes % (Manual) Seg Neutrophils # Man Lymphocytes # (Manual) PT INR ABG pH ABG pO2 ABG HCO3 ABG Base Excess ABG Hemoglobin Oxyhemoglobin Sodium Potassium Chloride Carbon Dioxide BUN Creatinine Glucose POC Glucose 176 H 219 H 150 H Lactic Acid Calcium Phosphorus Magnesium Total Bilirubin Direct Bilirubin AST ALT Alkaline Phosphatase Total Protein Albumin Lipase Ur Specific [place] Vancomycin Trough Coronavirus (PCR) 05/18/21 05/18/21 05/18/21 04:00 05:22 09:00 WBC RBC 3.34 L Hgb MCV RDW 18.8 H Plt Count Lymph % (Auto) Lymph # (Auto) Seg Neutrophils % Seg Neuts % (Manual) Lymphocytes % (Manual) Seg Neutrophils # Man Lymphocytes # (Manual) PT INR ABG pH ABG pO2 ABG HCO3 ABG Base Excess ABG Hemoglobin Oxyhemoglobin Sodium Potassium 5.4 H D Chloride 97.5 L Carbon Dioxide 33 H BUN Creatinine 0.4 L Glucose 461 H POC Glucose 181 H Lactic Acid Calcium 7.2 L Phosphorus 5.00 H D Magnesium Total Bilirubin Direct Bilirubin AST ALT Alkaline Phosphatase Total Protein Albumin Lipase Ur Specific [place] Vancomycin Trough Coronavirus (PCR) 05/18/21 05/18/21 05/18/21 11:16 12:50 16:29 WBC RBC Hgb MCV RDW Plt Count Lymph % (Auto) Lymph # (Auto) Seg Neutrophils % Seg Neuts % (Manual) Lymphocytes % (Manual) Seg Neutrophils # Man Lymphocytes # (Manual) PT INR ABG pH ABG pO2 ABG HCO3 ABG Base Excess ABG Hemoglobin Oxyhemoglobin Sodium Potassium 3.4 L D Chloride Carbon Dioxide 36 H BUN 19 H Creatinine 0.4 L Glucose 231 H POC Glucose 168 H 196 H Lactic Acid Calcium 7.5 L Phosphorus 1.80 L D Magnesium Total Bilirubin Direct Bilirubin AST ALT Alkaline Phosphatase Total Protein Albumin Lipase Ur Specific [place] Vancomycin Trough Coronavirus (PCR) 05/19/21 05/19/21 05/19/21 00:05 04:08 05:07 WBC RBC Hgb MCV RDW Plt Count Lymph % (Auto) Lymph # (Auto) Seg Neutrophils % Seg Neuts % (Manual) Lymphocytes % (Manual) Seg Neutrophils # Man Lymphocytes # (Manual) PT INR ABG pH ABG pO2 ABG HCO3 ABG Base Excess ABG Hemoglobin Oxyhemoglobin Sodium 146 H Potassium Chloride Carbon Dioxide 35 H BUN 25 H Creatinine 0.4 L Glucose 218 H POC Glucose 164 H 203 H Lactic Acid Calcium 7.2 L Phosphorus Magnesium Total Bilirubin Direct Bilirubin AST ALT Alkaline Phosphatase Total Protein Albumin Lipase Ur Specific [place] Vancomycin Trough Coronavirus (PCR) 05/19/21 05/19/21 05/19/21 12:16 14:14 17:11 WBC RBC Hgb MCV RDW Plt Count Lymph % (Auto) Lymph # (Auto) Seg Neutrophils % Seg Neuts % (Manual) Lymphocytes % (Manual) Seg Neutrophils # Man Lymphocytes # (Manual) PT INR ABG pH 7.482 H ABG pO2 111.7 H ABG HCO3 31.4 H ABG Base Excess 7.2 H ABG Hemoglobin 11.1 L Oxyhemoglobin Sodium Potassium Chloride Carbon Dioxide BUN Creatinine Glucose POC Glucose 206 H 194 H Lactic Acid Calcium Phosphorus Magnesium Total Bilirubin Direct Bilirubin AST ALT Alkaline Phosphatase Total Protein Albumin Lipase Ur Specific [place] Vancomycin Trough Coronavirus (PCR) 05/20/21 05/20/21 05/20/21 00:01 04:30 06:09 WBC RBC Hgb MCV RDW Plt Count Lymph % (Auto) Lymph # (Auto) Seg Neutrophils % Seg Neuts % (Manual) Lymphocytes % (Manual) Seg Neutrophils # Man Lymphocytes # (Manual) PT INR ABG pH ABG pO2 ABG HCO3 ABG Base Excess ABG Hemoglobin Oxyhemoglobin Sodium Potassium 3.5 L Chloride Carbon Dioxide BUN 24 H Creatinine 0.3 L Glucose 254 H POC Glucose 209 H 210 H Lactic Acid Calcium 7.5 L Phosphorus 1.90 L D Magnesium Total Bilirubin 1.60 H Direct Bilirubin AST 201 H ALT 170 H Alkaline Phosphatase 169 H Total Protein 5.3 L Albumin 1.9 L Lipase Ur Specific [place] Vancomycin Trough Coronavirus (PCR) 05/20/21 05/20/21 05/20/21 11:41 16:47 22:21 WBC RBC Hgb MCV RDW Plt Count Lymph % (Auto) Lymph # (Auto) Seg Neutrophils % Seg Neuts % (Manual) Lymphocytes % (Manual) Seg Neutrophils # Man Lymphocytes # (Manual) PT INR ABG pH ABG pO2 ABG HCO3 ABG Base Excess ABG Hemoglobin Oxyhemoglobin Sodium Potassium Chloride Carbon Dioxide BUN Creatinine Glucose POC Glucose 158 H 232 H 211 H Lactic Acid Calcium Phosphorus Magnesium Total Bilirubin Direct Bilirubin AST ALT Alkaline Phosphatase Total Protein Albumin Lipase Ur Specific [place] Vancomycin Trough Coronavirus (PCR) 05/21/21 05/21/21 05/21/21 00:35 04:00 04:00 WBC RBC 3.28 L Hgb MCV RDW 18.7 H Plt Count 125 L Lymph % (Auto) Lymph # (Auto) Seg Neutrophils % Seg Neuts % (Manual) Lymphocytes % (Manual) Seg Neutrophils # Man Lymphocytes # (Manual) PT INR ABG pH ABG pO2 ABG HCO3 ABG Base Excess ABG Hemoglobin Oxyhemoglobin Sodium Potassium 5.1 H D Chloride 108.7 H Carbon Dioxide BUN 21 H Creatinine 0.2 L Glucose 242 H POC Glucose 230 H Lactic Acid Calcium 7.3 L Phosphorus Magnesium Total Bilirubin Direct Bilirubin AST ALT Alkaline Phosphatase Total Protein Albumin Lipase Ur Specific [place] Vancomycin Trough Coronavirus (PCR) 05/21/21 05/21/21 05/21/21 05:08 11:47 17:43 WBC RBC Hgb MCV RDW Plt Count Lymph % (Auto) Lymph # (Auto) Seg Neutrophils % Seg Neuts % (Manual) Lymphocytes % (Manual) Seg Neutrophils # Man Lymphocytes # (Manual) PT INR ABG pH ABG pO2 ABG HCO3 ABG Base Excess ABG Hemoglobin Oxyhemoglobin Sodium Potassium Chloride Carbon Dioxide BUN Creatinine Glucose POC Glucose 196 H 139 H 147 H Lactic Acid Calcium Phosphorus Magnesium Total Bilirubin Direct Bilirubin AST ALT Alkaline Phosphatase Total Protein Albumin Lipase Ur Specific [place] Vancomycin Trough Coronavirus (PCR) 05/21/21 05/21/21 05/22/21 17:57 23:32 04:16 WBC RBC Hgb MCV RDW Plt Count Lymph % (Auto) Lymph # (Auto) Seg Neutrophils % Seg Neuts % (Manual) Lymphocytes % (Manual) Seg Neutrophils # Man Lymphocytes # (Manual) PT INR ABG pH ABG pO2 ABG HCO3 ABG Base Excess ABG Hemoglobin Oxyhemoglobin Sodium Potassium 5.2 H Chloride Carbon Dioxide BUN 19 H Creatinine 0.2 L Glucose 154 H POC Glucose 218 H 185 H Lactic Acid Calcium 7.5 L Phosphorus Magnesium Total Bilirubin 3.00 H Direct Bilirubin 2.3 H AST 437 H ALT 462 H Alkaline Phosphatase 186 H Total Protein 5.5 L Albumin 1.9 L Lipase Ur Specific [place] Vancomycin Trough Coronavirus (PCR) 05/22/21 05/22/21 05/22/21 04:30 04:30 04:30 WBC RBC Hgb MCV RDW Plt Count Lymph % (Auto) Lymph # (Auto) Seg Neutrophils % Seg Neuts % (Manual) Lymphocytes % (Manual) Seg Neutrophils # Man Lymphocytes # (Manual) PT 19.5 H INR 1.49 H ABG pH ABG pO2 ABG HCO3 ABG Base Excess ABG Hemoglobin Oxyhemoglobin Sodium 134 L Potassium Chloride Carbon Dioxide BUN 19 H Creatinine 0.2 L Glucose 208 H POC Glucose Lactic Acid Calcium 7.2 L Phosphorus 2.40 L D Magnesium Total Bilirubin 2.20 H Direct Bilirubin AST 350 H ALT 496 H Alkaline Phosphatase 167 H Total Protein 4.8 L Albumin 1.7 L Lipase Ur Specific [place] Vancomycin Trough Coronavirus (PCR) 05/22/21 05/22/21 05/22/21 11:59 17:16 23:07 WBC RBC Hgb MCV RDW Plt Count Lymph % (Auto) Lymph # (Auto) Seg Neutrophils % Seg Neuts % (Manual) Lymphocytes % (Manual) Seg Neutrophils # Man Lymphocytes # (Manual) PT INR ABG pH ABG pO2 ABG HCO3 ABG Base Excess ABG Hemoglobin Oxyhemoglobin Sodium Potassium Chloride Carbon Dioxide BUN Creatinine Glucose POC Glucose 204 H 244 H 226 H Lactic Acid Calcium Phosphorus Magnesium Total Bilirubin Direct Bilirubin AST ALT Alkaline Phosphatase Total Protein Albumin Lipase Ur Specific [place] Vancomycin Trough Coronavirus (PCR) 05/23/21 05/23/21 05/23/21 05:09 10:15 10:15 WBC RBC Hgb MCV RDW Plt Count Lymph % (Auto) Lymph # (Auto) Seg Neutrophils % Seg Neuts % (Manual) Lymphocytes % (Manual) Seg Neutrophils # Man Lymphocytes # (Manual) PT 16.9 H INR 1.24 H ABG pH ABG pO2 ABG HCO3 ABG Base Excess ABG Hemoglobin Oxyhemoglobin Sodium 131 L Potassium Chloride 97.5 L Carbon Dioxide BUN Creatinine < 0.2 L Glucose 248 H POC Glucose 175 H Lactic Acid Calcium 7.4 L Phosphorus Magnesium 1.60 L Total Bilirubin Direct Bilirubin AST ALT Alkaline Phosphatase Total Protein Albumin Lipase Ur Specific [place] Vancomycin Trough Coronavirus (PCR) 05/23/21 05/23/21 05/24/21 10:15 21:46 04:16 WBC RBC Hgb MCV RDW Plt Count Lymph % (Auto) Lymph # (Auto) Seg Neutrophils % Seg Neuts % (Manual) Lymphocytes % (Manual) Seg Neutrophils # Man Lymphocytes # (Manual) PT INR ABG pH ABG pO2 ABG HCO3 ABG Base Excess ABG Hemoglobin Oxyhemoglobin Sodium 130 L Potassium 3.5 L Chloride 97.1 L Carbon Dioxide BUN Creatinine 0.2 L Glucose 235 H POC Glucose 190 H Lactic Acid Calcium 6.8 L Phosphorus Magnesium Total Bilirubin 2.30 H Direct Bilirubin 1.6 H AST 161 H ALT 396 H Alkaline Phosphatase 186 H Total Protein 4.7 L Albumin 2.0 L Lipase Ur Specific [place] Vancomycin Trough Coronavirus (PCR) 05/24/21 05/25/21 05/25/21 05:32 04:25 04:25 WBC 11.7 H RBC 3.28 L Hgb MCV RDW 19.9 H Plt Count Lymph % (Auto) Lymph # (Auto) Seg Neutrophils % Seg Neuts % (Manual) Lymphocytes % (Manual) Seg Neutrophils # Man Lymphocytes # (Manual) PT INR ABG pH ABG pO2 ABG HCO3 ABG Base Excess ABG Hemoglobin Oxyhemoglobin Sodium 135 L Potassium 3.4 L Chloride Carbon Dioxide BUN Creatinine 0.2 L Glucose 105 H POC Glucose 208 H Lactic Acid Calcium 7.6 L Phosphorus Magnesium Total Bilirubin Direct Bilirubin AST ALT Alkaline Phosphatase Total Protein Albumin Lipase Ur Specific [place] Vancomycin Trough Coronavirus (PCR) 05/26/21 05/26/21 05/26/21 11:37 16:57 20:59 WBC RBC Hgb MCV RDW Plt Count Lymph % (Auto) Lymph # (Auto) Seg Neutrophils % Seg Neuts % (Manual) Lymphocytes % (Manual) Seg Neutrophils # Man Lymphocytes # (Manual) PT INR ABG pH ABG pO2 ABG HCO3 ABG Base Excess ABG Hemoglobin Oxyhemoglobin Sodium Potassium Chloride Carbon Dioxide BUN Creatinine Glucose POC Glucose 136 H 214 H 137 H Lactic Acid Calcium Phosphorus Magnesium Total Bilirubin Direct Bilirubin AST ALT Alkaline Phosphatase Total Protein Albumin Lipase Ur Specific [place] Vancomycin Trough Coronavirus (PCR) 05/26/21 05/27/21 05/27/21 23:52 05:40 16:49 WBC RBC Hgb MCV RDW Plt Count Lymph % (Auto) Lymph # (Auto) Seg Neutrophils % Seg Neuts % (Manual) Lymphocytes % (Manual) Seg Neutrophils # Man Lymphocytes # (Manual) PT INR ABG pH ABG pO2 ABG HCO3 ABG Base Excess ABG Hemoglobin Oxyhemoglobin Sodium Potassium Chloride Carbon Dioxide BUN Creatinine Glucose POC Glucose 111 H 144 H 213 H Lactic Acid Calcium Phosphorus Magnesium Total Bilirubin Direct Bilirubin AST ALT Alkaline Phosphatase Total Protein Albumin Lipase Ur Specific [place] Vancomycin Trough Coronavirus (PCR) 05/27/21 05/27/21 05/28/21 21:07 23:57 11:59 WBC RBC Hgb MCV RDW Plt Count Lymph % (Auto) Lymph # (Auto) Seg Neutrophils % Seg Neuts % (Manual) Lymphocytes % (Manual) Seg Neutrophils # Man Lymphocytes # (Manual) PT INR ABG pH ABG pO2 ABG HCO3 ABG Base Excess ABG Hemoglobin Oxyhemoglobin Sodium Potassium Chloride Carbon Dioxide BUN Creatinine Glucose POC Glucose 135 H 157 H 130 H Lactic Acid Calcium Phosphorus Magnesium Total Bilirubin Direct Bilirubin AST ALT Alkaline Phosphatase Total Protein Albumin Lipase Ur Specific [place] Vancomycin Trough Coronavirus (PCR) 05/28/21 05/29/21 05/29/21 17:05 01:03 05:07 WBC RBC Hgb MCV RDW Plt Count Lymph % (Auto) Lymph # (Auto) Seg Neutrophils % Seg Neuts % (Manual) Lymphocytes % (Manual) Seg Neutrophils # Man Lymphocytes # (Manual) PT INR ABG pH ABG pO2 ABG HCO3 ABG Base Excess ABG Hemoglobin Oxyhemoglobin Sodium 148 H D Potassium 3.0 L Chloride 108.0 H Carbon Dioxide BUN Creatinine 0.2 L Glucose 155 H POC Glucose 207 H 204 H Lactic Acid Calcium 7.7 L Phosphorus Magnesium Total Bilirubin Direct Bilirubin AST ALT Alkaline Phosphatase Total Protein Albumin Lipase Ur Specific [place] Vancomycin Trough Coronavirus (PCR) 05/29/21 05/29/21 05/29/21 08:20 11:30 17:53 WBC RBC Hgb MCV RDW Plt Count Lymph % (Auto) Lymph # (Auto) Seg Neutrophils % Seg Neuts % (Manual) Lymphocytes % (Manual) Seg Neutrophils # Man Lymphocytes # (Manual) PT INR ABG pH ABG pO2 ABG HCO3 ABG Base Excess ABG Hemoglobin Oxyhemoglobin Sodium Potassium Chloride Carbon Dioxide BUN Creatinine Glucose POC Glucose 119 H 199 H Lactic Acid Calcium Phosphorus Magnesium Total Bilirubin Direct Bilirubin AST ALT Alkaline Phosphatase Total Protein Albumin Lipase Ur Specific [place] Vancomycin Trough Coronavirus (PCR) Positive A 05/30/21 05/30/21 05/30/21 00:37 05:54 06:50 WBC RBC Hgb MCV RDW Plt Count Lymph % (Auto) Lymph # (Auto) Seg Neutrophils % Seg Neuts % (Manual) Lymphocytes % (Manual) Seg Neutrophils # Man Lymphocytes # (Manual) PT INR ABG pH ABG pO2 ABG HCO3 ABG Base Excess ABG Hemoglobin Oxyhemoglobin Sodium Potassium Chloride Carbon Dioxide BUN Creatinine Glucose POC Glucose 117 H 56 L 157 H Lactic Acid Calcium Phosphorus Magnesium Total Bilirubin Direct Bilirubin AST ALT Alkaline Phosphatase Total Protein Albumin Lipase Ur Specific [place] Vancomycin Trough Coronavirus (PCR) 05/30/21 05/30/21 05/31/21 17:18 23:54 05:27 WBC RBC Hgb MCV RDW Plt Count Lymph % (Auto) Lymph # (Auto) Seg Neutrophils % Seg Neuts % (Manual) Lymphocytes % (Manual) Seg Neutrophils # Man Lymphocytes # (Manual) PT INR ABG pH ABG pO2 ABG HCO3 ABG Base Excess ABG Hemoglobin Oxyhemoglobin Sodium Potassium Chloride Carbon Dioxide BUN Creatinine Glucose POC Glucose 181 H 130 H 112 H Lactic Acid Calcium Phosphorus Magnesium Total Bilirubin Direct Bilirubin AST ALT Alkaline Phosphatase Total Protein Albumin Lipase Ur Specific [place] Vancomycin Trough Coronavirus (PCR) 05/31/21 05/31/21 05/31/21 12:06 17:35 23:56 WBC RBC Hgb MCV RDW Plt Count Lymph % (Auto) Lymph # (Auto) Seg Neutrophils % Seg Neuts % (Manual) Lymphocytes % (Manual) Seg Neutrophils # Man Lymphocytes # (Manual) PT INR ABG pH ABG pO2 ABG HCO3 ABG Base Excess ABG Hemoglobin Oxyhemoglobin Sodium Potassium Chloride Carbon Dioxide BUN Creatinine Glucose POC Glucose 170 H 109 H 136 H Lactic Acid Calcium Phosphorus Magnesium Total Bilirubin Direct Bilirubin AST ALT Alkaline Phosphatase Total Protein Albumin Lipase Ur Specific [place] Vancomycin Trough Coronavirus (PCR) Allied health notes reviewed: nursing
[2021-06-01] MEDS: INSULIN GLARGINE 100 UNITS/ML SUB-Q SCH (21:04)
[2021-06-01] MEDS: HALOPERIDOL LACTATE 5 MG/1 ML INJ IV PRN (21:04)
[2021-06-01] MEDS: ENOXAPARIN 40 MG/0.4 ML INJ SUB-Q SCH (21:04)
[2021-06-02] MEDS: ALPRAZolam 1 MG TAB PO PRN (00:12)
[2021-06-02] MEDS: INSULIN LISPRO 100 UNIT/ML SUB-Q SCH ×4 (00:50→19:37)
[2021-06-02] MEDS: HYDROmorphone 1 MG/1 ML INJ IV PRN ×2 (01:33→04:44)
[2021-06-02] MEDS: NORepinephrine/NS 8 MG-250 ML 8 MG/250 ML INFUS..BTL IV SCH ×2 (04:20→20:32)
[2021-06-02] MEDS ORDERED: SODIUM CHLORIDE 0.9% 1000 ML 1,000 ML ONE (04:59)
[2021-06-02] MEDS ORDERED: SODIUM CHLORIDE 0.9% 1000 ML 1,000 ML IV ONE (05:05)
[2021-06-02] MEDS ORDERED: fentaNYL 100 MCG/2 ML INJ IV PRN (05:20)
[2021-06-02] MEDS: fentaNYL DRIP Premix 2,000 MCG/100 ML BAG IV SCH ×2 (05:51→18:41)
--- NOTE | 2021-06-02 05:59 | XRay Report ---
CHEST - 1 VIEW INDICATION: Post Intubation COMPARISON: Yesterday FINDINGS: SUPPORT DEVICES: New endotracheal tube at the level the clavicles. Support device positioning. HEART: Stable cardiomediastinal silhouette. LUNGS/PLEURA: Moderate diffuse interstitial disease is present. There is a small amount of somewhat linear gas over the right lung base/mediastinum which is new. Cannot exclude tiny pneumothorax or tra ce pneumomediastinum. ADDITIONAL FINDINGS: None. IMPRESSION: 1. New endotracheal tube in satisfactory position. 2. New gas as outlined above. Attention on follow-up recommended. COMMUNICATION: Time of Communication (MEDICAL TECHNICAL WRITER/CDT): 4:55 AM Licensed Practitioner Receiving Report: Nurse La Signer Name: Philip Nolan MD Signed: 06/02/2021 5:55 AM Workstation Name: [email or web address]
[2021-06-02] MEDS ORDERED: SODIUM CHLORIDE 0.9% 1000 ML 1,000 ML IV SCH (06:15)
--- NOTE | 2021-06-02 06:19 | Emergency Department Report ---
ED Shortness of Breath HPI - General Chief Complaint: Abdominal Pain Stated Complaint: abd pain Time Seen by Provider: 05/11/21 05:57 Source: EMS Mode of arrival: Stretcher Limitations: No Limitations - Related Data Home Medications Medication Instructions Recorded Confirmed Last Taken Esomeprazole Magnesium 40 mg PO DAILY 03/19/19 03/19/19 Unknown Symbicort 160-4.5 Mcg Inhaler 4.5 mcg INHALATION BID 03/19/19 03/19/19 Unknown Vitamin D (Nf) 5,000 unit PO DAILY 03/19/19 03/19/19 Unknown Previous Rx's Medication Instructions Recorded Last Taken Type Albuterol Sulfate 2.5 mg INHALATION Q6H PRN #1 03/21/19 Unknown Rx Arformoterol Nebu [Brovana Nebu] 15 mcg IH Q12HRT ml 03/21/19 Unknown Rx Fluticasone Propionate 50 mcg IH BID #1 03/21/19 Unknown Rx Ipratropium/Albuterol Sulfate 1 ampul IH TIDRT #100 ampul.neb 03/21/19 Unknown Rx [DUONEB *Not for PRN Use*] Montelukast [Singulair] 10 mg PO QPM #30 tablet 03/21/19 Unknown Rx Pantoprazole [Protonix TAB] 20 mg PO QDAY tablet. 03/21/19 Unknown Rx metFORMIN XR [Glucophage XR] 500 mg PO QDDIAB #60 tablet 03/21/19 Unknown Rx oxyCODONE /ACETAMINOPHEN [Percocet 1 tab PO Q6H PRN tablet 03/21/19 Unknown Rx 5/325 mg] Clair Root [Clair] 250 mg PO QID PRN #30 capsule 12/18/19 Unknown Rx Ondansetron [Zofran ODT TAB] 4 mg PO Q8HR PRN #20 tab.rapdis 12/18/19 Unknown Rx Potassium Chloride [K-Dur] 20 meq PO QDAY #10 tablet 12/18/19 Unknown Rx Cetirizine HCl [Zyrtec 10mg tab] 10 mg PO QDAY #30 tablet 01/21/21 Unknown Rx ALPRAZolam [Xanax TAB] 1 mg PO Q8H PRN tablet 05/29/21 Unknown Rx Acetaminophen [Acetaminophen TAB] 650 mg PO Q4H PRN tablet 05/29/21 Unknown Rx Arformoterol Nebu [Brovana Nebu] 15 mcg IH Q12HRT ml 05/29/21 Unknown Rx Benzonatate [Tessalon Perles] 100 mg PO Q8HR PRN capsule 05/29/21 Unknown Rx Budesonide [Pulmicort Respules] 0.5 mg IH Q12HRT nebu 05/29/21 Unknown Rx Dicyclomine [Bentyl] 10 mg PO QID capsule 05/29/21 Unknown Rx Insulin Glargine [Lantus VIAL] 20 units SUB-Q QHS units 05/29/21 Unknown Rx Lansoprazole Solutab [Prevacid 30 mg FEEDTUBE QDAY tab.rapdis 05/29/21 Unknown Rx Solutab] Lipase/Protease/Amylase [Pancreaze 1 each FEEDTUBE PRN PRN capsule 05/29/[address],500 Unit] Simple Syrup 15 ml FEEDTUBE PRN PRN oral.liqd 05/29/21 Unknown Rx Simple Syrup 30 ml FEEDTUBE PRN PRN oral.liqd 05/29/21 Unknown Rx Sodium Bicarbonate 325 mg FEEDTUBE PRN PRN tablet 05/29/21 Unknown Rx dexAMETHasone [Decadron] 6 mg FEEDTUBE Q24HR tablet 05/29/21 Unknown Rx Allergies Allergy/AdvReac Type Severity Reaction Status Date / Time codeine Allergy Rash Verified 12/18/19 05:02 [From Tylenol-Codeine #3] methylprednisolone Allergy Anaphylaxis Verified 05/13/21 15:13 neomycin Allergy Hives Verified 08/01/17 14:15 ED Review of Systems ROS: Stated complaint: abd pain Other details as noted in HPI Constitutional: denies: chills, fever Eyes: denies: eye pain, vision change ENT: denies: ear pain, throat pain Respiratory: denies: cough, shortness of breath Cardiovascular: denies: chest pain, palpitations Gastrointestinal: abdominal pain, nausea, vomiting Genitourinary: denies: dysuria, discharge Musculoskeletal: denies: back pain, arthralgia Skin: denies: rash, lesions Neurological: denies: headache, weakness ED Past Medical Hx - Past Medical History Hx Hypertension: Yes Hx CVA: No Hx Heart Attack/AMI: No Hx Congestive Heart Failure: No Hx Diabetes: No Hx Deep Vein Thrombosis: No Hx Asthma: Yes (Pancreatic) Hx COPD: Yes Additional medical history: Fibrosis of lungs - Surgical History Past Surgical History?: No Hx Pacemaker: No Hx Internal Defibrillator: No Additional Surgical History: hernia repair, Port right chest - Social History Smoking Status: Never Smoker - Medications Home Medications: Home Medications Medication Instructions Recorded Confirmed Last Taken Type Esomeprazole Magnesium 40 mg PO DAILY 03/19/19 03/19/19 Unknown History Symbicort 160-4.5 Mcg Inhaler 4.5 mcg INHALATION BID 03/19/19 03/19/19 Unknown History Vitamin D (Nf) 5,000 unit PO DAILY 03/19/19 03/19/19 Unknown History Albuterol Sulfate 2.5 mg INHALATION Q6H PRN #1 03/21/19 Unknown Rx Arformoterol Nebu [Brovana Nebu] 15 mcg IH Q12HRT ml 03/21/19 Unknown Rx Fluticasone Propionate 50 mcg IH BID #1 03/21/19 Unknown Rx Ipratropium/Albuterol Sulfate 1 ampul IH TIDRT #100 ampul.neb 03/21/19 Unknown Rx [DUONEB *Not for PRN Use*] Montelukast [Singulair] 10 mg PO QPM #30 tablet 03/21/19 Unknown Rx Pantoprazole [Protonix TAB] 20 mg PO QDAY tablet. 03/21/19 Unknown Rx metFORMIN XR [Glucophage XR] 500 mg PO QDDIAB #60 tablet 03/21/19 Unknown Rx oxyCODONE /ACETAMINOPHEN [Percocet 1 tab PO Q6H PRN tablet 03/21/19 Unknown Rx 5/325 mg] Clair Root [Clair] 250 mg PO QID PRN #30 capsule 12/18/19 Unknown Rx Ondansetron [Zofran ODT TAB] 4 mg PO Q8HR PRN #20 tab.rapdis 12/18/19 Unknown Rx Potassium Chloride [K-Dur] 20 meq PO QDAY #10 tablet 12/18/19 Unknown Rx Cetirizine HCl [Zyrtec 10mg tab] 10 mg PO QDAY #30 tablet 01/21/21 Unknown Rx ALPRAZolam [Xanax TAB] 1 mg PO Q8H PRN tablet 05/29/21 Unknown Rx Acetaminophen [Acetaminophen TAB] 650 mg PO Q4H PRN tablet 05/29/21 Unknown Rx Arformoterol Nebu [Brovana Nebu] 15 mcg IH Q12HRT ml 05/29/21 Unknown Rx Benzonatate [Tessalon Perles] 100 mg PO Q8HR PRN capsule 05/29/21 Unknown Rx Budesonide [Pulmicort Respules] 0.5 mg IH Q12HRT nebu 05/29/21 Unknown Rx Dicyclomine [Bentyl] 10 mg PO QID capsule 05/29/21 Unknown Rx Insulin Glargine [Lantus VIAL] 20 units SUB-Q QHS units 05/29/21 Unknown Rx Lansoprazole Solutab [Prevacid 30 mg FEEDTUBE QDAY tab.rapdis 05/29/21 Unknown Rx Solutab] Lipase/Protease/Amylase [Pancreaze 1 each FEEDTUBE PRN PRN capsule 05/29/21 Unknown Rx 10,500 Unit] Simple Syrup 15 ml FEEDTUBE PRN PRN oral.liqd 05/29/21 Unknown Rx Simple Syrup 30 ml FEEDTUBE PRN PRN oral.liqd 05/29/21 Unknown Rx Sodium Bicarbonate 325 mg FEEDTUBE PRN PRN tablet 05/29/21 Unknown Rx dexAMETHasone [Decadron] 6 mg FEEDTUBE Q24HR tablet 05/29/21 Unknown Rx ED Physical Exam - General Limitations: No Limitations ED Course Vital Signs 05/11/21 05/11/21 05/11/21 05:02 06:17 06:39 Temperature 98.1 F Pulse Rate 80 111 H Respiratory 18 28 H Rate Blood Pressure 124/83 Blood Pressure 130/90 128/81 [Right] O2 Sat by Pulse 98 94 85 Oximetry 05/11/21 05/11/21 05/11/21 06:45 07:01 07:04 Temperature 100.4 F H Pulse Rate 157 H Respiratory 37 H Rate Blood Pressure 124/83 127/76 Blood Pressure [Right] O2 Sat by Pulse 88 90 Oximetry 05/11/21 05/11/21 05/11/21 07:15 07:31 08:01 Temperature Pulse Rate 144 H 137 H 133 H Respiratory 28 H 22 31 H Rate Blood Pressure 115/63 107/69 99/72 Blood Pressure [Right] O2 Sat by Pulse 98 100 97 Oximetry 05/11/21 05/11/21 05/11/21 08:31 08:36 09:01 Temperature 100 F H Pulse Rate 126 H 120 H 119 H Respiratory 22 22 21 Rate Blood Pressure 99/62 87/47 Blood Pressure 105/68 [Right] O2 Sat by Pulse 96 95 92 Oximetry 05/11/21 05/11/21 05/11/21 09:43 10:01 10:29 Temperature 98.2 F Pulse Rate 122 H 113 H 113 H Respiratory 16 20 Rate Blood Pressure 87/54 82/51 Blood Pressure 71/44 [Right] O2 Sat by Pulse 97 99 98 Oximetry 05/11/21 05/11/21 05/11/21 10:31 11:00 11:11 Temperature Pulse Rate 108 H 101 H 105 H Respiratory 15 18 23 Rate Blood Pressure 71/44 85/46 85/46 Blood Pressure [Right] O2 Sat by Pulse 98 98 100 Oximetry 05/11/21 05/11/21 05/11/21 11:21 11:31 11:41 Temperature Pulse Rate 97 H 100 H 102 H Respiratory 18 18 17 Rate Blood Pressure 76/38 75/40 75/40 Blood Pressure 75/40 [Right] O2 Sat by Pulse 100 100 99 Oximetry 05/11/21 05/11/21 05/11/21 11:51 12:01 12:11 Temperature Pulse Rate 106 H 95 H 101 H Respiratory 20 16 16 Rate Blood Pressure 75/44 62/32 62/32 Blood Pressure [Right] O2 Sat by Pulse 99 100 99 Oximetry 05/11/21 05/11/21 05/11/21 12:21 12:31 12:41 Temperature Pulse Rate 102 H 105 H 102 H Respiratory 23 20 17 Rate Blood Pressure 69/33 79/52 79/52 Blood Pressure [Right] O2 Sat by Pulse 97 100 Oximetry 05/11/21 05/11/21 05/11/21 12:51 12:52 13:01 Temperature Pulse Rate 101 H 103 H 101 H Respiratory 16 19 21 Rate Blood Pressure 88/54 76/47 Blood Pressure 88/54 [Right] O2 Sat by Pulse 100 98 100 Oximetry 05/11/21 05/11/21 05/11/21 13:11 13:21 13:31 Temperature Pulse Rate 98 H 96 H 98 H Respiratory 16 15 17 Rate Blood Pressure 76/47 76/44 74/44 Blood Pressure [Right] O2 Sat by Pulse 100 100 100 Oximetry 1205/11/21 05/11/21 13:41 13:51 14:01 Temperature Pulse Rate 99 H 103 H 104 H Respiratory 16 20 22 Rate Blood Pressure 74/44 69/43 70/52 Blood Pressure [Right] O2 Sat by Pulse 100 100 100 Oximetry 05/11/21 05/11/21 05/11/21 14:11 14:21 14:31 Temperature Pulse Rate 106 H 103 H 98 H Respiratory 30 H 24 22 Rate Blood Pressure 70/52 78/45 81/44 Blood Pressure [Right] O2 Sat by Pulse 99 99 99 Oximetry 05/11/21 05/11/21 05/11/21 14:41 14:47 14:51 Temperature Pulse Rate 99 H 92 H 91 H Respiratory 19 21 17 Rate Blood Pressure 81/44 81/50 Blood Pressure 81/50 [Right] O2 Sat by Pulse 99 100 100 Oximetry 05/11/21 05/11/21 05/11/21 15:01 15:11 15:21 Temperature Pulse Rate 93 H 92 H 95 H Respiratory 17 16 17 Rate Blood Pressure 85/51 85/47 87/53 Blood Pressure [Right] O2 Sat by Pulse 100 100 100 Oximetry 05/11/21 05/11/21 05/11/21 15:31 15:41 15:51 Temperature Pulse Rate 95 H 97 H 98 H Respiratory 16 18 20 Rate Blood Pressure 90/61 96/53 86/48 Blood Pressure [Right] O2 Sat by Pulse 100 99 99 Oximetry 05/11/21 05/11/21 05/11/21 16:01 16:11 16:21 Temperature Pulse Rate 97 H 100 H 99 H Respiratory 18 17 19 Rate Blood Pressure 89/49 78/48 88/47 Blood Pressure [Right] O2 Sat by Pulse 99 99 99 Oximetry 05/11/21 05/11/21 05/11/21 16:31 16:41 16:51 Temperature Pulse Rate 104 H 99 H 99 H Respiratory 22 19 18 Rate Blood Pressure 87/54 84/47 84/51 Blood Pressure [Right] O2 Sat by Pulse 97 99 98 Oximetry 05/11/21 05/11/21 05/11/21 17:01 17:11 17:21 Temperature Pulse Rate 110 H 109 H 107 H Respiratory 22 18 27 H Rate Blood Pressure 85/49 92/59 90/55 Blood Pressure [Right] O2 Sat by Pulse 94 98 97 Oximetry 05/11/21 05/11/21 05/11/21 17:31 17:41 17:51 Temperature Pulse Rate 104 H 108 H 109 H Respiratory 26 H 19 30 H Rate Blood Pressure 100/56 86/46 97/57 Blood Pressure [Right] O2 Sat by Pulse 98 98 98 Oximetry 05/11/21 05/11/21 05/11/21 18:01 18:11 18:21 Temperature Pulse Rate 102 H 104 H 101 H Respiratory 22 26 H 23 Rate Blood Pressure 85/60 91/52 87/55 Blood Pressure [Right] O2 Sat by Pulse 99 99 100 Oximetry 05/11/21 05/11/21 05/11/21 18:31 18:41 19:11 Temperature Pulse Rate 105 H 97 H 98 H Respiratory 22 24 26 H Rate Blood Pressure 94/57 91/47 98/55 Blood Pressure [Right] O2 Sat by Pulse 100 100 100 Oximetry 05/11/21 05/11/21 05/11/21 19:21 19:31 19:41 Temperature Pulse Rate 98 H 114 H 100 H Respiratory 24 34 H 27 H Rate Blood Pressure 92/52 97/49 95/59 Blood Pressure [Right] O2 Sat by Pulse 100 97 100 Oximetry 05/11/21 05/11/21 05/11/21 19:51 20:01 20:11 Temperature Pulse Rate 96 H 101 H 101 H Respiratory 23 25 H 32 H Rate Blood Pressure 88/58 96/59 100/64 Blood Pressure [Right] O2 Sat by Pulse 99 99 93 Oximetry 05/11/21 05/11/21 05/11/21 20:21 20:31 20:36 Temperature 99.8 F H Pulse Rate 107 H 97 H Respiratory 35 H 25 H Rate Blood Pressure 104/67 108/72 Blood Pressure [Right] O2 Sat by Pulse 97 100 Oximetry 05/11/21 05/11/21 05/11/21 20:41 20:51 21:01 Temperature Pulse Rate 97 H 101 H 100 H Respiratory 24 33 H 27 H Rate Blood Pressure 119/69 98/54 109/66 Blood Pressure [Right] O2 Sat by Pulse 100 99 96 Oximetry 05/11/21 05/11/21 05/11/21 21:11 21:21 21:31 Temperature Pulse Rate 101 H 111 H 100 H Respiratory 31 H 31 H 28 H Rate Blood Pressure 113/71 113/71 113/71 Blood Pressure [Right] O2 Sat by Pulse 94 88 94 Oximetry 05/11/21 05/11/21 05/11/21 21:41 21:51 22:01 Temperature Pulse Rate 100 H 98 H 99 H Respiratory 25 H 24 25 H Rate Blood Pressure 113/71 113/71 113/71 Blood Pressure [Right] O2 Sat by Pulse 96 95 94 Oximetry 05/11/21 05/11/21 05/11/21 22:11 22:21 22:31 Temperature Pulse Rate 98 H 99 H 105 H Respiratory 23 25 H 30 H Rate Blood Pressure 113/71 113/71 113/71 Blood Pressure [Right] O2 Sat by Pulse 95 92 93 Oximetry 05/11/21 05/11/21 05/11/21 22:40 22:50 23:00 Temperature Pulse Rate 96 H 96 H 96 H Respiratory 24 24 23 Rate Blood Pressure 113/71 113/71 113/71 Blood Pressure [Right] O2 Sat by Pulse 95 91 93 Oximetry 05/11/21 05/11/21 05/12/21 23:10 23:20 00:00 Temperature Pulse Rate 95 H 99 H 93 H Respiratory 21 18 26 H Rate Blood Pressure 107/69 111/71 105/74 Blood Pressure [Right] O2 Sat by Pulse 99 92 100 Oximetry 05/12/21 00:01 Temperature Pulse Rate 91 H Respiratory 28 H Rate Blood Pressure Blood Pressure 101/57 [Right] O2 Sat by Pulse 94 Oximetry - Intubation Time Out Performed: Yes Sedative: Etomidate Mg Given: 20 Paralytic: Succinylcholine Mg Given: 100 Laryngoscope: fiberoptic video scope Size: 3 ET Tube Size: 7.5 Tube Secured Depth (cm): 24 Tube Secured Location: lips Tube Placement Confirmation: visualized tube passing t, equal breath sounds bilat, no breath sounds over epi, confirmation by capnometr Patient Tolerated Procedure: well Intubation Complications: none ED Medical Decision Making - Lab Data Result diagrams: 05/25/21 04:25 05/29/21 05:07 Critical care attestation.: If time is entered above; I have spent that time in minutes in the direct care of this critically ill patient, excluding procedure time. ED Disposition Clinical Impression: Respiratory failure Disposition: ADMITTED INPATIENT Is pt being admited?: Yes Does the pt Need Aspirin: No Condition: Serious
[2021-06-02 09:25] LABS: Basophils % (Auto) 0.5 % (0.0-1.8); Eosinophils # (Auto) 0.5 K/mm3 (0.0-0.4); Eosinophils % (Auto) 10.2 % (0.0-4.3); Hemoglobin 10.5 gm/dl (10.1-14.3); Lymphocytes # (Auto) 0.6 K/mm3 (1.2-5.4); Lymphocytes % (Auto) 12.8 % (13.4-35.0); Mean Corpuscular HGB Conc 32 % (30-34); Mean Corpuscular Volume 100 fl (79-97); Platelet Count 172 K/mm3 (140-440); Red Blood Count 3.31 M/mm3 (3.65-5.03)
[2021-06-02 09:29] LABS: Red Cell Distribution Width 24.7 % (13.2-15.2)
[2021-06-02 09:38] LABS: Blood Urea Nitrogen 10 mg/dL (7-17); Calcium 7.7 mg/dL (8.4-10.2); Hemolysis Index 2
[2021-06-02 09:42] LABS: BUN/Creatinine Ratio 33
[2021-06-02] MEDS ORDERED: DEXTROSE 5% IN WATER 1,000 ML IV SCH (10:00)
[2021-06-02] MEDS ORDERED: MAGNESIUM SULFATE 4 GM/100 ML BAG IV ONE (10:00)
[2021-06-02] MEDS: ARFORMOTEROL 15 MCG/2 ML NEBU IH SCH ×2 (10:24→21:31)
[2021-06-02] MEDS: BUDESONIDE 0.5 MG/2 ML NEBU IH SCH ×2 (10:25→21:31)
[2021-06-02] MEDS: DEXTROSE 50% IN WATER (25GM) 50 ML SYRINGE IV PRN ×2 (10:55→18:34)
[2021-06-02] MEDS: LANSOPRAZOLE 30 MG SOLUTAB FEEDTUBE SCH (10:56)
[2021-06-02] MEDS: POTASSIUM CHLORIDE 20 MEQ 20 MEQ/100 ML BAG IV SCH ×2 (11:03→11:11)
--- NOTE | 2021-06-02 11:42 | Progress Note ---
Assessment and Plan Septic shock possible hepatobiliary source Lactic acidosis h/o pulmonary fibrosis, Acute on chronic respiratory failure on home O2 of 2 L nasal cannula Transaminitis, biliary dilation, r/o cholangitis Hyperchloremia, metabolic acidosis, hypokalemia Hypoglycemia h/o pancreatic head cancer- chemoradiation therapy h/o Hypertension - get stat ABG and address - Daily SAT and SBT assessment as tolerated - sedation prn for target RASS 0 to -1 - VAP bundle addressed - continue lung protective strategies - continue bronchodilators with pulmonary hygiene per RT - wean per pulmonary driven protocols otherwise - continue care as below otherwise; - vasopressors for target MAP > 65 mmHg - MRCP pending as she remains tenuous from a respiratory standpoint - continue anti-infective's; de-escalate per ID recommendations - continue accuchecks with glycemic control per SSI (While critically ill target blood glucose of 140-180 mg/dL; avoid hypoglycemia) - continue to wean supplemental oxygen for target O2 sat's > 90% acutely - aspiration precautions - avoid nephrotoxins, renally dose all medications - prn analgesia per pain score - Maintenance of sleep-wake cycle, avoid delirium - G.I. & VTE prophylaxis - PT/OT/ROM exercises - mobility protocols for pressure ulcer prophylaxis - Monitor hemodynamics closely - continue other care per attending / other consultants - discharge planning ongoing concurrently COVID SPECIFIC INTERVENTIONS - Remdesivir as per ID/Pulmonary developed protocols (ordered) - continue systemic steroids for severe COVID-19 infection empirically (on Decadron) - follow repeat COVID tests results - zinc and vitamin C supplementation (ordered) - Monitor inflammatory markers per facility protocol - ferritin, Ddimer, CRP - therapeutic anticoagulation per system Protocol based on d-dimer and clinical considerations - Contact and airborne isolation .... Re-evaluate in am & prn CONDITION: CRITICAL PROGNOSIS: GUARDED CODE STATUS: FULL CODE The high probability of a clinically significant, sudden or life-threatening deterioration of the [respiratory, cardiovascular, GI & neurologic] system(s) required my full and direct attention, intervention and personal management. The aggregate critical care time was [32] minutes without overlap. Time includes spent on; [x] Data Review and interpretation [x] Patient assessment and monitoring of vital signs [x] Documentation [x] Medication orders and management Subjective Date of service: 06/02/21 Principal diagnosis: Septic shock; Pulm fibrosis; Hypoxemic resp failure; COVID- 19 infxn Interval history: Patient is seen today for: Septic shock; pulmonary fibrosis; Acute on chronic hypoxemic respiratory failure; Transaminitis; h/o pancreatic head cancer; HTN Seen and examined at bedside; 24hour events reviewed; nursing and respiratory care staff consulted; no adverse overnight events reported to me; resting in bed; de-compensated overnight and now intubated; sedated; no emesis or overt asp iration Objective Vital Signs - 12hr 06/02/21 06/02/21 06/02/21 00:00 00:15 01:00 Temperature 97.0 F L Pulse Rate 94 H 97 H 94 H Pulse Rate [ 90 From Monitor] Respiratory 14 21 17 Rate Blood Pressure 101/65 101/65 101/69 O2 Sat by Pulse 93 96 99 Oximetry 06/02/21 06/02/21 06/02/21 02:00 03:00 03:30 Temperature Pulse Rate 92 H 90 98 H Pulse Rate [ From Monitor] Respiratory 18 17 Rate Blood Pressure 102/75 106/78 O2 Sat by Pulse Oximetry 06/02/21 06/02/21 06/02/21 03:34 04:00 04:50 Temperature 97.9 F Pulse Rate 99 H 78 Pulse Rate [ 98 H From Monitor] Respiratory 15 16 Rate Blood Pressure 108/82 91/54 O2 Sat by Pulse 96 78 L Oximetry 06/02/21 06/02/21 06/02/21 06:00 06:21 08:00 Temperature 97.9 F Pulse Rate Pulse Rate [ 98 H From Monitor] Respiratory 229 H Rate Blood Pressure O2 Sat by Pulse 95 93 Oximetry 06/02/21 06/02/21 06/02/21 08:30 09:35 10:00 Temperature Pulse Rate 113 H 120 H Pulse Rate [ From Monitor] Respiratory 27 H 27 H Rate Blood Pressure 98/63 92/53 O2 Sat by Pulse 97 96 Oximetry 06/02/21 11:00 Temperature Pulse Rate 119 H Pulse Rate [ From Monitor] Respiratory 20 Rate Blood Pressure 89/43 O2 Sat by Pulse 93 Oximetry Constitutional: no acute distress, asleep, other (mildly increased respiratory effort at rest on MVS) Eyes: non-icteric ENT: oropharynx moist, other (ETT 24 cm JOSH) Neck: supple, no lymphadenopathy, no JVD Effort: mildly labored Ascultation: Bilateral: diminished breath sounds, rales Percussion: Bilateral: not dull Cardiovascular: regular rate and rhythm, other (S1,S2) Gastrointestinal: normoactive bowel sounds, hypoactive bowel sounds, soft, non- distended (protuberant) Integumentary: normal Extremities: no cyanosis, no edema, pulses normal, other (right femoral CVL) Neurologic: normal mental status, non-focal exam (grossly), pupils equal and round, other (sedated) Psychiatric: other (unable to assess re: AMS) CBC and BMP: 06/02/21 08:59 06/02/21 08:59 ABG, PT/INR, D-dimer: ABG ABG pH 7.251 (7.320-7.450) L 06/02/21 05:36 POC ABG pCO2 67.7 mmHg (32.0-48.0) H 06/02/21 05:36 ABG pCO2 42.9 mm Hg 05/19/21 14:14 POC ABG pO2 189.6 mmHg (83-108) H 06/02/21 05:36 ABG pO2 111.7 mm Hg (80.0-90.0) H 05/19/21 14:14 POC ABG HCO3 29.1 06/02/21 05:36 ABG O2 Saturation 99.1 (0-100) 06/02/21 05:36 PT/INR, D-dimer PT 16.9 Sec. (12.2-14.9) H 05/23/21 10:15 INR 1.24 (0.87-1.13) H 05/23/21 10:15 Abnormal lab findings: Abnormal Labs 05/11/21 05/11/21 05/11/21 05:43 05:43 05:43 WBC RBC Hgb MCV 98 H RDW 17.7 H Plt Count Lymph % (Auto) 10.8 L Eos % (Auto) Lymph # (Auto) 0.6 L Eos # (Auto) Seg Neutrophils % 84.1 H Seg Neuts % (Manual) Lymphocytes % (Manual) Seg Neutrophils # Man Lymphocytes # (Manual) PT 16.0 H INR 1.16 H ABG pH POC ABG pCO2 POC ABG pO2 ABG pO2 ABG HCO3 ABG Base Excess ABG Hemoglobin ABG Oxyhemoglobin ABG Sodium ABG Potassium ABG Chloride ABG Glucose Oxyhemoglobin Carboxyhemoglobin Sodium Potassium Chloride Carbon Dioxide 21 L BUN 4 L Creatinine 0.4 L Glucose POC Glucose Lactic Acid Calcium 8.3 L Phosphorus Magnesium Total Bilirubin 2.10 H Direct Bilirubin 1.4 H AST 335 H ALT 57 H Alkaline Phosphatase 339 H Total Protein Albumin 2.4 L Lipase 3 L Arterial Blood Glucose Ur Specific [place] Vancomycin Trough Coronavirus (PCR) 05/11/21 05/11/21 05/12/21 11:18 12:28 04:08 WBC RBC Hgb MCV RDW Plt Count Lymph % (Auto) Eos % (Auto) Lymph # (Auto) Eos # (Auto) Seg Neutrophils % Seg Neuts % (Manual) Lymphocytes % (Manual) Seg Neutrophils # Man Lymphocytes # (Manual) PT INR ABG pH POC ABG pCO2 POC ABG pO2 ABG pO2 ABG HCO3 ABG Base Excess ABG Hemoglobin ABG Oxyhemoglobin ABG Sodium ABG Potassium ABG Chloride ABG Glucose Oxyhemoglobin Carboxyhemoglobin Sodium Potassium Chloride Carbon Dioxide BUN Creatinine Glucose POC Glucose Lactic Acid 4.20 H* 4.50 H* Calcium Phosphorus Magnesium Total Bilirubin Direct Bilirubin AST ALT Alkaline Phosphatase Total Protein Albumin Lipase Arterial Blood Glucose Ur Specific [place] 1.035 H Vancomycin Trough Coronavirus (PCR) 05/12/21 05/12/21 05/12/21 04:08 04:08 09:47 WBC 22.8 H RBC 3.39 L Hgb MCV 98 H RDW 17.7 H Plt Count Lymph % (Auto) Eos % (Auto) Lymph # (Auto) Eos # (Auto) Seg Neutrophils % Seg Neuts % (Manual) 85.5 H Lymphocytes % (Manual) 2.0 L Seg Neutrophils # Man 19.5 H Lymphocytes # (Manual) 0.5 L PT INR ABG pH POC ABG pCO2 POC ABG pO2 ABG pO2 ABG HCO3 ABG Base Excess ABG Hemoglobin ABG Oxyhemoglobin ABG Sodium ABG Potassium ABG Chloride ABG Glucose Oxyhemoglobin Carboxyhemoglobin Sodium Potassium 3.3 L Chloride 108.9 H Carbon Dioxide 17 L BUN 4 L Creatinine 0.5 L Glucose 106 H POC Glucose Lactic Acid 2.60 H* Calcium 6.4 L D Phosphorus Magnesium Total Bilirubin 2.10 H Direct Bilirubin AST 156 H ALT 61 H Alkaline Phosphatase 317 H Total Protein 5.4 L D Albumin 1.8 L Lipase Arterial Blood Glucose Ur Specific [place] Vancomycin Trough Coronavirus (PCR) 1205/12/21 05/12/21 11:47 12:30 12:36 WBC RBC Hgb MCV RDW Plt Count Lymph % (Auto) Eos % (Auto) Lymph # (Auto) Eos # (Auto) Seg Neutrophils % Seg Neuts % (Manual) Lymphocytes % (Manual) Seg Neutrophils # Man Lymphocytes # (Manual) PT INR ABG pH POC ABG pCO2 POC ABG pO2 ABG pO2 ABG HCO3 ABG Base Excess ABG Hemoglobin ABG Oxyhemoglobin ABG Sodium ABG Potassium ABG Chloride ABG Glucose Oxyhemoglobin Carboxyhemoglobin Sodium Potassium Chloride Carbon Dioxide BUN Creatinine Glucose POC Glucose 59 L 120 H Lactic Acid 2.50 H* Calcium Phosphorus Magnesium Total Bilirubin Direct Bilirubin AST ALT Alkaline Phosphatase Total Protein Albumin Lipase Arterial Blood Glucose Ur Specific [place] Vancomycin Trough Coronavirus (PCR) 05/12/21 05/12/21 05/13/21 23:45 Unknown 04:00 WBC 19.8 H RBC 3.52 L Hgb MCV 98 H RDW 18.5 H Plt Count Lymph % (Auto) Eos % (Auto) Lymph # (Auto) Eos # (Auto) Seg Neutrophils % Seg Neuts % (Manual) Lymphocytes % (Manual) Seg Neutrophils # Man Lymphocytes # (Manual) PT INR ABG pH POC ABG pCO2 POC ABG pO2 ABG pO2 ABG HCO3 ABG Base Excess ABG Hemoglobin ABG Oxyhemoglobin ABG Sodium ABG Potassium ABG Chloride ABG Glucose Oxyhemoglobin Carboxyhemoglobin Sodium Potassium Chloride Carbon Dioxide BUN Creatinine Glucose POC Glucose 119 H Lactic Acid 3.30 H* Calcium Phosphorus Magnesium Total Bilirubin Direct Bilirubin AST ALT Alkaline Phosphatase Total Protein Albumin Lipase Arterial Blood Glucose Ur Specific [place] Vancomycin Trough Coronavirus (PCR) 05/13/21 05/13/21 05/13/21 04:00 05:42 12:19 WBC RBC Hgb MCV RDW Plt Count Lymph % (Auto) Eos % (Auto) Lymph # (Auto) Eos # (Auto) Seg Neutrophils % Seg Neuts % (Manual) Lymphocytes % (Manual) Seg Neutrophils # Man Lymphocytes # (Manual) PT INR ABG pH POC ABG pCO2 POC ABG pO2 ABG pO2 ABG HCO3 ABG Base Excess ABG Hemoglobin ABG Oxyhemoglobin ABG Sodium ABG Potassium ABG Chloride ABG Glucose Oxyhemoglobin Carboxyhemoglobin Sodium Potassium 3.4 L Chloride 107.1 H Carbon Dioxide 19 L BUN 4 L Creatinine 0.4 L Glucose 157 H POC Glucose 143 H 110 H Lactic Acid Calcium 7.4 L D Phosphorus 1.60 L Magnesium 1.50 L Total Bilirubin 1.40 H Direct Bilirubin AST 95 H ALT Alkaline Phosphatase 328 H Total Protein 5.5 L Albumin 1.6 L Lipase Arterial Blood Glucose Ur Specific [place] Vancomycin Trough Coronavirus (PCR) 05/14/21 05/14/21 05/14/21 06:15 06:15 10:25 WBC 11.7 H RBC 3.41 L Hgb MCV 98 H RDW 18.6 H Plt Count Lymph % (Auto) Eos % (Auto) Lymph # (Auto) Eos # (Auto) Seg Neutrophils % Seg Neuts % (Manual) Lymphocytes % (Manual) Seg Neutrophils # Man Lymphocytes # (Manual) PT INR ABG pH POC ABG pCO2 POC ABG pO2 ABG pO2 76.0 L ABG HCO3 27.2 H ABG Base Excess ABG Hemoglobin 11.5 L ABG Oxyhemoglobin ABG Sodium ABG Potassium ABG Chloride ABG Glucose Oxyhemoglobin 94.4 L Carboxyhemoglobin Sodium Potassium 3.2 L Chloride Carbon Dioxide BUN 6 L Creatinine 0.5 L Glucose 103 H POC Glucose Lactic Acid Calcium 7.3 L Phosphorus 1.70 L Magnesium Total Bilirubin Direct Bilirubin AST 66 H ALT Alkaline Phosphatase 295 H Total Protein 5.3 L Albumin 1.8 L Lipase Arterial Blood Glucose Ur Specific [place] Vancomycin Trough Coronavirus (PCR) 05/14/21 05/14/21 05/14/21 15:20 15:20 17:26 WBC RBC Hgb MCV RDW Plt Count Lymph % (Auto) Eos % (Auto) Lymph # (Auto) Eos # (Auto) Seg Neutrophils % Seg Neuts % (Manual) Lymphocytes % (Manual) Seg Neutrophils # Man Lymphocytes # (Manual) PT INR ABG pH POC ABG pCO2 POC ABG pO2 ABG pO2 ABG HCO3 ABG Base Excess ABG Hemoglobin ABG Oxyhemoglobin ABG Sodium ABG Potassium ABG Chloride ABG Glucose Oxyhemoglobin Carboxyhemoglobin Sodium 146 H D Potassium Chloride 108.4 H Carbon Dioxide BUN 5 L Creatinine 0.5 L Glucose POC Glucose 63 L Lactic Acid Calcium 7.6 L Phosphorus Magnesium Total Bilirubin Direct Bilirubin AST ALT Alkaline Phosphatase Total Protein Albumin Lipase Arterial Blood Glucose Ur Specific [place] Vancomycin Trough 25.3 H Coronavirus (PCR) 05/14/21 05/15/21 05/15/21 21:27 00:03 00:29 WBC RBC Hgb MCV RDW Plt Count Lymph % (Auto) Eos % (Auto) Lymph # (Auto) Eos # (Auto) Seg Neutrophils % Seg Neuts % (Manual) Lymphocytes % (Manual) Seg Neutrophils # Man Lymphocytes # (Manual) PT INR ABG pH POC ABG pCO2 POC ABG pO2 ABG pO2 ABG HCO3 ABG Base Excess ABG Hemoglobin ABG Oxyhemoglobin ABG Sodium ABG Potassium ABG Chloride ABG Glucose Oxyhemoglobin Carboxyhemoglobin Sodium Potassium Chloride Carbon Dioxide BUN Creatinine Glucose POC Glucose 52 L 54 L 129 H Lactic Acid Calcium Phosphorus Magnesium Total Bilirubin Direct Bilirubin AST ALT Alkaline Phosphatase Total Protein Albumin Lipase Arterial Blood Glucose Ur Specific [place] Vancomycin Trough Coronavirus (PCR) 05/15/21 05/15/21 05/15/21 04:45 04:45 11:58 WBC RBC 3.24 L Hgb MCV 98 H RDW 18.5 H Plt Count 122 L Lymph % (Auto) 7.4 L Eos % (Auto) Lymph # (Auto) 0.6 L Eos # (Auto) Seg Neutrophils % 81.2 H Seg Neuts % (Manual) Lymphocytes % (Manual) Seg Neutrophils # Man Lymphocytes # (Manual) PT INR ABG pH POC ABG pCO2 POC ABG pO2 ABG pO2 ABG HCO3 ABG Base Excess ABG Hemoglobin ABG Oxyhemoglobin ABG Sodium ABG Potassium ABG Chloride ABG Glucose Oxyhemoglobin Carboxyhemoglobin Sodium 146 H Potassium 3.1 L Chloride 108.8 H Carbon Dioxide BUN 6 L Creatinine Glucose 121 H POC Glucose 68 L Lactic Acid Calcium 7.5 L Phosphorus 2.30 L D Magnesium Total Bilirubin 1.90 H Direct Bilirubin AST 55 H ALT Alkaline Phosphatase 231 H Total Protein 5.4 L Albumin 1.5 L Lipase Arterial Blood Glucose Ur Specific [place] Vancomycin Trough Coronavirus (PCR) 05/15/21 05/16/21 05/16/21 13:50 00:06 00:43 WBC RBC Hgb MCV RDW Plt Count Lymph % (Auto) Eos % (Auto) Lymph # (Auto) Eos # (Auto) Seg Neutrophils % Seg Neuts % (Manual) Lymphocytes % (Manual) Seg Neutrophils # Man Lymphocytes # (Manual) PT INR ABG pH POC ABG pCO2 POC ABG pO2 ABG pO2 ABG HCO3 ABG Base Excess ABG Hemoglobin ABG Oxyhemoglobin ABG Sodium ABG Potassium ABG Chloride ABG Glucose Oxyhemoglobin Carboxyhemoglobin Sodium Potassium Chloride Carbon Dioxide BUN Creatinine Glucose POC Glucose 147 H 54 L 116 H Lactic Acid Calcium Phosphorus Magnesium Total Bilirubin Direct Bilirubin AST ALT Alkaline Phosphatase Total Protein Albumin Lipase Arterial Blood Glucose Ur Specific [place] Vancomycin Trough Coronavirus (PCR) 05/16/21 05/16/21 05/16/21 04:31 04:31 05:58 WBC RBC 3.12 L Hgb 9.8 L MCV 98 H RDW 18.2 H Plt Count 115 L Lymph % (Auto) Eos % (Auto) Lymph # (Auto) Eos # (Auto) Seg Neutrophils % Seg Neuts % (Manual) Lymphocytes % (Manual) Seg Neutrophils # Man Lymphocytes # (Manual) PT INR ABG pH POC ABG pCO2 POC ABG pO2 ABG pO2 ABG HCO3 ABG Base Excess ABG Hemoglobin ABG Oxyhemoglobin ABG Sodium ABG Potassium ABG Chloride ABG Glucose Oxyhemoglobin Carboxyhemoglobin Sodium 146 H Potassium 3.2 L Chloride Carbon Dioxide BUN 5 L Creatinine 0.5 L Glucose POC Glucose 61 L Lactic Acid Calcium 7.2 L Phosphorus 2.30 L Magnesium Total Bilirubin Direct Bilirubin AST ALT Alkaline Phosphatase Total Protein Albumin Lipase Arterial Blood Glucose Ur Specific [place] Vancomycin Trough Coronavirus (PCR) 05/16/21 05/16/21 05/17/21 08:11 23:42 04:15 WBC RBC Hgb MCV RDW Plt Count Lymph % (Auto) Eos % (Auto) Lymph # (Auto) Eos # (Auto) Seg Neutrophils % Seg Neuts % (Manual) Lymphocytes % (Manual) Seg Neutrophils # Man Lymphocytes # (Manual) PT INR ABG pH POC ABG pCO2 POC ABG pO2 ABG pO2 ABG HCO3 ABG Base Excess ABG Hemoglobin ABG Oxyhemoglobin ABG Sodium ABG Potassium ABG Chloride ABG Glucose Oxyhemoglobin Carboxyhemoglobin Sodium Potassium Chloride Carbon Dioxide BUN Creatinine Glucose POC Glucose 58 L 200 H Lactic Acid Calcium Phosphorus Magnesium Total Bilirubin 1.70 H Direct Bilirubin 1.5 H AST 43 H ALT Alkaline Phosphatase 196 H Total Protein 5.4 L Albumin 1.6 L Lipase Arterial Blood Glucose Ur Specific [place] Vancomycin Trough Coronavirus (PCR) 05/17/21 05/17/21 05/17/21 04:15 04:15 05:07 WBC RBC 3.26 L Hgb MCV 98 H RDW 18.9 H Plt Count 114 L Lymph % (Auto) Eos % (Auto) Lymph # (Auto) Eos # (Auto) Seg Neutrophils % Seg Neuts % (Manual) Lymphocytes % (Manual) Seg Neutrophils # Man Lymphocytes # (Manual) PT INR ABG pH POC ABG pCO2 POC ABG pO2 ABG pO2 ABG HCO3 ABG Base Excess ABG Hemoglobin ABG Oxyhemoglobin ABG Sodium ABG Potassium ABG Chloride ABG Glucose Oxyhemoglobin Carboxyhemoglobin Sodium Potassium Chloride Carbon Dioxide 35 H BUN 5 L Creatinine Glucose 274 H POC Glucose 249 H Lactic Acid Calcium 7.7 L Phosphorus 1.50 L D Magnesium Total Bilirubin Direct Bilirubin AST ALT Alkaline Phosphatase Total Protein Albumin Lipase Arterial Blood Glucose Ur Specific [place] Vancomycin Trough Coronavirus (PCR) 05/17/21 05/17/21 05/17/21 11:56 16:29 23:37 WBC RBC Hgb MCV RDW Plt Count Lymph % (Auto) Eos % (Auto) Lymph # (Auto) Eos # (Auto) Seg Neutrophils % Seg Neuts % (Manual) Lymphocytes % (Manual) Seg Neutrophils # Man Lymphocytes # (Manual) PT INR ABG pH POC ABG pCO2 POC ABG pO2 ABG pO2 ABG HCO3 ABG Base Excess ABG Hemoglobin ABG Oxyhemoglobin ABG Sodium ABG Potassium ABG Chloride ABG Glucose Oxyhemoglobin Carboxyhemoglobin Sodium Potassium Chloride Carbon Dioxide BUN Creatinine Glucose POC Glucose 176 H 219 H 150 H Lactic Acid Calcium Phosphorus Magnesium Total Bilirubin Direct Bilirubin AST ALT Alkaline Phosphatase Total Protein Albumin Lipase Arterial Blood Glucose Ur Specific [place] Vancomycin Trough Coronavirus (PCR) 05/18/21 05/18/21 05/18/21 04:00 05:22 09:00 WBC RBC 3.34 L Hgb MCV RDW 18.8 H Plt Count Lymph % (Auto) Eos % (Auto) Lymph # (Auto) Eos # (Auto) Seg Neutrophils % Seg Neuts % (Manual) Lymphocytes % (Manual) Seg Neutrophils # Man Lymphocytes # (Manual) PT INR ABG pH POC ABG pCO2 POC ABG pO2 ABG pO2 ABG HCO3 ABG Base Excess ABG Hemoglobin ABG Oxyhemoglobin ABG Sodium ABG Potassium ABG Chloride ABG Glucose Oxyhemoglobin Carboxyhemoglobin Sodium Potassium 5.4 H D Chloride 97.5 L Carbon Dioxide 33 H BUN Creatinine 0.4 L Glucose 461 H POC Glucose 181 H Lactic Acid Calcium 7.2 L Phosphorus 5.00 H D Magnesium Total Bilirubin Direct Bilirubin AST ALT Alkaline Phosphatase Total Protein Albumin Lipase Arterial Blood Glucose Ur Specific [place] Vancomycin Trough Coronavirus (PCR) 05/18/21 05/18/21 05/18/21 11:16 12:50 16:29 WBC RBC Hgb MCV RDW Plt Count Lymph % (Auto) Eos % (Auto) Lymph # (Auto) Eos # (Auto) Seg Neutrophils % Seg Neuts % (Manual) Lymphocytes % (Manual) Seg Neutrophils # Man Lymphocytes # (Manual) PT INR ABG pH POC ABG pCO2 POC ABG pO2 ABG pO2 ABG HCO3 ABG Base Excess ABG Hemoglobin ABG Oxyhemoglobin ABG Sodium ABG Potassium ABG Chloride ABG Glucose Oxyhemoglobin Carboxyhemoglobin Sodium Potassium 3.4 L D Chloride Carbon Dioxide 36 H BUN 19 H Creatinine 0.4 L Glucose 231 H POC Glucose 168 H 196 H Lactic Acid Calcium 7.5 L Phosphorus 1.80 L D Magnesium Total Bilirubin Direct Bilirubin AST ALT Alkaline Phosphatase Total Protein Albumin Lipase Arterial Blood Glucose Ur Specific [place] Vancomycin Trough Coronavirus (PCR) 05/19/21 05/19/21 05/19/21 00:05 04:08 05:07 WBC RBC Hgb MCV RDW Plt Count Lymph % (Auto) Eos % (Auto) Lymph # (Auto) Eos # (Auto) Seg Neutrophils % Seg Neuts % (Manual) Lymphocytes % (Manual) Seg Neutrophils # Man Lymphocytes # (Manual) PT INR ABG pH POC ABG pCO2 POC ABG pO2 ABG pO2 ABG HCO3 ABG Base Excess ABG Hemoglobin ABG Oxyhemoglobin ABG Sodium ABG Potassium ABG Chloride ABG Glucose Oxyhemoglobin Carboxyhemoglobin Sodium 146 H Potassium Chloride Carbon Dioxide 35 H BUN 25 H Creatinine 0.4 L Glucose 218 H POC Glucose 164 H 203 H Lactic Acid Calcium 7.2 L Phosphorus Magnesium Total Bilirubin Direct Bilirubin AST ALT Alkaline Phosphatase Total Protein Albumin Lipase Arterial Blood Glucose Ur Specific [place] Vancomycin Trough Coronavirus (PCR) 05/19/21 05/19/21 05/19/21 12:16 14:14 17:11 WBC RBC Hgb MCV RDW Plt Count Lymph % (Auto) Eos % (Auto) Lymph # (Auto) Eos # (Auto) Seg Neutrophils % Seg Neuts % (Manual) Lymphocytes % (Manual) Seg Neutrophils # Man Lymphocytes # (Manual) PT INR ABG pH 7.482 H POC ABG pCO2 POC ABG pO2 ABG pO2 111.7 H ABG HCO3 31.4 H ABG Base Excess 7.2 H ABG Hemoglobin 11.1 L ABG Oxyhemoglobin ABG Sodium ABG Potassium ABG Chloride ABG Glucose Oxyhemoglobin Carboxyhemoglobin Sodium Potassium Chloride Carbon Dioxide BUN Creatinine Glucose POC Glucose 206 H 194 H Lactic Acid Calcium Phosphorus Magnesium Total Bilirubin Direct Bilirubin AST ALT Alkaline Phosphatase Total Protein Albumin Lipase Arterial Blood Glucose Ur Specific [place] Vancomycin Trough Coronavirus (PCR) 05/20/21 05/20/21 05/20/21 00:01 04:30 06:09 WBC RBC Hgb MCV RDW Plt Count Lymph % (Auto) Eos % (Auto) Lymph # (Auto) Eos # (Auto) Seg Neutrophils % Seg Neuts % (Manual) Lymphocytes % (Manual) Seg Neutrophils # Man Lymphocytes # (Manual) PT INR ABG pH POC ABG pCO2 POC ABG pO2 ABG pO2 ABG HCO3 ABG Base Excess ABG Hemoglobin ABG Oxyhemoglobin ABG Sodium ABG Potassium ABG Chloride ABG Glucose Oxyhemoglobin Carboxyhemoglobin Sodium Potassium 3.5 L Chloride Carbon Dioxide BUN 24 H Creatinine 0.3 L Glucose 254 H POC Glucose 209 H 210 H Lactic Acid Calcium 7.5 L Phosphorus 1.90 L D Magnesium Total Bilirubin 1.60 H Direct Bilirubin AST 201 H ALT 170 H Alkaline Phosphatase 169 H Total Protein 5.3 L Albumin 1.9 L Lipase Arterial Blood Glucose Ur Specific [place] Vancomycin Trough Coronavirus (PCR) 05/20/21 05/20/21 05/20/21 11:41 16:47 22:21 WBC RBC Hgb MCV RDW Plt Count Lymph % (Auto) Eos % (Auto) Lymph # (Auto) Eos # (Auto) Seg Neutrophils % Seg Neuts % (Manual) Lymphocytes % (Manual) Seg Neutrophils # Man Lymphocytes # (Manual) PT INR ABG pH POC ABG pCO2 POC ABG pO2 ABG pO2 ABG HCO3 ABG Base Excess ABG Hemoglobin ABG Oxyhemoglobin ABG Sodium ABG Potassium ABG Chloride ABG Glucose Oxyhemoglobin Carboxyhemoglobin Sodium Potassium Chloride Carbon Dioxide BUN Creatinine Glucose POC Glucose 158 H 232 H 211 H Lactic Acid Calcium Phosphorus Magnesium Total Bilirubin Direct Bilirubin AST ALT Alkaline Phosphatase Total Protein Albumin Lipase Arterial Blood Glucose Ur Specific [place] Vancomycin Trough Coronavirus (PCR) 05/21/21 05/21/21 05/21/21 00:35 04:00 04:00 WBC RBC 3.28 L Hgb MCV RDW 18.7 H Plt Count 125 L Lymph % (Auto) Eos % (Auto) Lymph # (Auto) Eos # (Auto) Seg Neutrophils % Seg Neuts % (Manual) Lymphocytes % (Manual) Seg Neutrophils # Man Lymphocytes # (Manual) PT INR ABG pH POC ABG pCO2 POC ABG pO2 ABG pO2 ABG HCO3 ABG Base Excess ABG Hemoglobin ABG Oxyhemoglobin ABG Sodium ABG Potassium ABG Chloride ABG Glucose Oxyhemoglobin Carboxyhemoglobin Sodium Potassium 5.1 H D Chloride 108.7 H Carbon Dioxide BUN 21 H Creatinine 0.2 L Glucose 242 H POC Glucose 230 H Lactic Acid Calcium 7.3 L Phosphorus Magnesium Total Bilirubin Direct Bilirubin AST ALT Alkaline Phosphatase Total Protein Albumin Lipase Arterial Blood Glucose Ur Specific [place] Vancomycin Trough Coronavirus (PCR) 05/21/21 05/21/21 05/21/21 05:08 11:47 17:43 WBC RBC Hgb MCV RDW Plt Count Lymph % (Auto) Eos % (Auto) Lymph # (Auto) Eos # (Auto) Seg Neutrophils % Seg Neuts % (Manual) Lymphocytes % (Manual) Seg Neutrophils # Man Lymphocytes # (Manual) PT INR ABG pH POC ABG pCO2 POC ABG pO2 ABG pO2 ABG HCO3 ABG Base Excess ABG Hemoglobin ABG Oxyhemoglobin ABG Sodium ABG Potassium ABG Chloride ABG Glucose Oxyhemoglobin Carboxyhemoglobin Sodium Potassium Chloride Carbon Dioxide BUN Creatinine Glucose POC Glucose 196 H 139 H 147 H Lactic Acid Calcium Phosphorus Magnesium Total Bilirubin Direct Bilirubin AST ALT Alkaline Phosphatase Total Protein Albumin Lipase Arterial Blood Glucose Ur Specific [place] Vancomycin Trough Coronavirus (PCR) 05/21/21 05/21/21 05/22/21 17:57 23:32 04:16 WBC RBC Hgb MCV RDW Plt Count Lymph % (Auto) Eos % (Auto) Lymph # (Auto) Eos # (Auto) Seg Neutrophils % Seg Neuts % (Manual) Lymphocytes % (Manual) Seg Neutrophils # Man Lymphocytes # (Manual) PT INR ABG pH POC ABG pCO2 POC ABG pO2 ABG pO2 ABG HCO3 ABG Base Excess ABG Hemoglobin ABG Oxyhemoglobin ABG Sodium ABG Potassium ABG Chloride ABG Glucose Oxyhemoglobin Carboxyhemoglobin Sodium Potassium 5.2 H Chloride Carbon Dioxide BUN 19 H Creatinine 0.2 L Glucose 154 H POC Glucose 218 H 185 H Lactic Acid Calcium 7.5 L Phosphorus Magnesium Total Bilirubin 3.00 H Direct Bilirubin 2.3 H AST 437 H ALT 462 H Alkaline Phosphatase 186 H Total Protein 5.5 L Albumin 1.9 L Lipase Arterial Blood Glucose Ur Specific [place] Vancomycin Trough Coronavirus (PCR) 05/22/21 05/22/21 05/22/21 04:30 04:30 04:30 WBC RBC Hgb MCV RDW Plt Count Lymph % (Auto) Eos % (Auto) Lymph # (Auto) Eos # (Auto) Seg Neutrophils % Seg Neuts % (Manual) Lymphocytes % (Manual) Seg Neutrophils # Man Lymphocytes # (Manual) PT 19.5 H INR 1.49 H ABG pH POC ABG pCO2 POC ABG pO2 ABG pO2 ABG HCO3 ABG Base Excess ABG Hemoglobin ABG Oxyhemoglobin ABG Sodium ABG Potassium ABG Chloride ABG Glucose Oxyhemoglobin Carboxyhemoglobin Sodium 134 L Potassium Chloride Carbon Dioxide BUN 19 H Creatinine 0.2 L Glucose 208 H POC Glucose Lactic Acid Calcium 7.2 L Phosphorus 2.40 L D Magnesium Total Bilirubin 2.20 H Direct Bilirubin AST 350 H ALT 496 H Alkaline Phosphatase 167 H Total Protein 4.8 L Albumin 1.7 L Lipase Arterial Blood Glucose Ur Specific [place] Vancomycin Trough Coronavirus (PCR) 05/22/21 05/22/21 05/22/21 11:59 17:16 23:07 WBC RBC Hgb MCV RDW Plt Count Lymph % (Auto) Eos % (Auto) Lymph # (Auto) Eos # (Auto) Seg Neutrophils % Seg Neuts % (Manual) Lymphocytes % (Manual) Seg Neutrophils # Man Lymphocytes # (Manual) PT INR ABG pH POC ABG pCO2 POC ABG pO2 ABG pO2 ABG HCO3 ABG Base Excess ABG Hemoglobin ABG Oxyhemoglobin ABG Sodium ABG Potassium ABG Chloride ABG Glucose Oxyhemoglobin Carboxyhemoglobin Sodium Potassium Chloride Carbon Dioxide BUN Creatinine Glucose POC Glucose 204 H 244 H 226 H Lactic Acid Calcium Phosphorus Magnesium Total Bilirubin Direct Bilirubin AST ALT Alkaline Phosphatase Total Protein Albumin Lipase Arterial Blood Glucose Ur Specific [place] Vancomycin Trough Coronavirus (PCR) 05/23/21 05/23/21 05/23/21 05:09 10:15 10:15 WBC RBC Hgb MCV RDW Plt Count Lymph % (Auto) Eos % (Auto) Lymph # (Auto) Eos # (Auto) Seg Neutrophils % Seg Neuts % (Manual) Lymphocytes % (Manual) Seg Neutrophils # Man Lymphocytes # (Manual) PT 16.9 H INR 1.24 H ABG pH POC ABG pCO2 POC ABG pO2 ABG pO2 ABG HCO3 ABG Base Excess ABG Hemoglobin ABG Oxyhemoglobin ABG Sodium ABG Potassium ABG Chloride ABG Glucose Oxyhemoglobin Carboxyhemoglobin Sodium 131 L Potassium Chloride 97.5 L Carbon Dioxide BUN Creatinine < 0.2 L Glucose 248 H POC Glucose 175 H Lactic Acid Calcium 7.4 L Phosphorus Magnesium 1.60 L Total Bilirubin Direct Bilirubin AST ALT Alkaline Phosphatase Total Protein Albumin Lipase Arterial Blood Glucose Ur Specific [place] Vancomycin Trough Coronavirus (PCR) 05/23/21 05/23/21 05/24/21 10:15 21:46 04:16 WBC RBC Hgb MCV RDW Plt Count Lymph % (Auto) Eos % (Auto) Lymph # (Auto) Eos # (Auto) Seg Neutrophils % Seg Neuts % (Manual) Lymphocytes % (Manual) Seg Neutrophils # Man Lymphocytes # (Manual) PT INR ABG pH POC ABG pCO2 POC ABG pO2 ABG pO2 ABG HCO3 ABG Base Excess ABG Hemoglobin ABG Oxyhemoglobin ABG Sodium ABG Potassium ABG Chloride ABG Glucose Oxyhemoglobin Carboxyhemoglobin Sodium 130 L Potassium 3.5 L Chloride 97.1 L Carbon Dioxide BUN Creatinine 0.2 L Glucose 235 H POC Glucose 190 H Lactic Acid Calcium 6.8 L Phosphorus Magnesium Total Bilirubin 2.30 H Direct Bilirubin 1.6 H AST 161 H ALT 396 H Alkaline Phosphatase 186 H Total Protein 4.7 L Albumin 2.0 L Lipase Arterial Blood Glucose Ur Specific [place] Vancomycin Trough Coronavirus (PCR) 05/24/21 05/25/21 05/25/21 05:32 04:25 04:25 WBC 11.7 H RBC 3.28 L Hgb MCV RDW 19.9 H Plt Count Lymph % (Auto) Eos % (Auto) Lymph # (Auto) Eos # (Auto) Seg Neutrophils % Seg Neuts % (Manual) Lymphocytes % (Manual) Seg Neutrophils # Man Lymphocytes # (Manual) PT INR ABG pH POC ABG pCO2 POC ABG pO2 ABG pO2 ABG HCO3 ABG Base Excess ABG Hemoglobin ABG Oxyhemoglobin ABG Sodium ABG Potassium ABG Chloride ABG Glucose Oxyhemoglobin Carboxyhemoglobin Sodium 135 L Potassium 3.4 L Chloride Carbon Dioxide BUN Creatinine 0.2 L Glucose 105 H POC Glucose 208 H Lactic Acid Calcium 7.6 L Phosphorus Magnesium Total Bilirubin Direct Bilirubin AST ALT Alkaline Phosphatase Total Protein Albumin Lipase Arterial Blood Glucose Ur Specific [place] Vancomycin Trough Coronavirus (PCR) 05/26/21 05/26/21 05/26/21 11:37 16:57 20:59 WBC RBC Hgb MCV RDW Plt Count Lymph % (Auto) Eos % (Auto) Lymph # (Auto) Eos # (Auto) Seg Neutrophils % Seg Neuts % (Manual) Lymphocytes % (Manual) Seg Neutrophils # Man Lymphocytes # (Manual) PT INR ABG pH POC ABG pCO2 POC ABG pO2 ABG pO2 ABG HCO3 ABG Base Excess ABG Hemoglobin ABG Oxyhemoglobin ABG Sodium ABG Potassium ABG Chloride ABG Glucose Oxyhemoglobin Carboxyhemoglobin Sodium Potassium Chloride Carbon Dioxide BUN Creatinine Glucose POC Glucose 136 H 214 H 137 H Lactic Acid Calcium Phosphorus Magnesium Total Bilirubin Direct Bilirubin AST ALT Alkaline Phosphatase Total Protein Albumin Lipase Arterial Blood Glucose Ur Specific [place] Vancomycin Trough Coronavirus (PCR) 05/26/21 05/27/21 05/27/21 23:52 05:40 16:49 WBC RBC Hgb MCV RDW Plt Count Lymph % (Auto) Eos % (Auto) Lymph # (Auto) Eos # (Auto) Seg Neutrophils % Seg Neuts % (Manual) Lymphocytes % (Manual) Seg Neutrophils # Man Lymphocytes # (Manual) PT INR ABG pH POC ABG pCO2 POC ABG pO2 ABG pO2 ABG HCO3 ABG Base Excess ABG Hemoglobin ABG Oxyhemoglobin ABG Sodium ABG Potassium ABG Chloride ABG Glucose Oxyhemoglobin Carboxyhemoglobin Sodium Potassium Chloride Carbon Dioxide BUN Creatinine Glucose POC Glucose 111 H 144 H 213 H Lactic Acid Calcium Phosphorus Magnesium Total Bilirubin Direct Bilirubin AST ALT Alkaline Phosphatase Total Protein Albumin Lipase Arterial Blood Glucose Ur Specific [place] Vancomycin Trough Coronavirus (PCR) 05/27/21 05/27/21 05/28/21 21:07 23:57 11:59 WBC RBC Hgb MCV RDW Plt Count Lymph % (Auto) Eos % (Auto) Lymph # (Auto) Eos # (Auto) Seg Neutrophils % Seg Neuts % (Manual) Lymphocytes % (Manual) Seg Neutrophils # Man Lymphocytes # (Manual) PT INR ABG pH POC ABG pCO2 POC ABG pO2 ABG pO2 ABG HCO3 ABG Base Excess ABG Hemoglobin ABG Oxyhemoglobin ABG Sodium ABG Potassium ABG Chloride ABG Glucose Oxyhemoglobin Carboxyhemoglobin Sodium Potassium Chloride Carbon Dioxide BUN Creatinine Glucose POC Glucose 135 H 157 H 130 H Lactic Acid Calcium Phosphorus Magnesium Total Bilirubin Direct Bilirubin AST ALT Alkaline Phosphatase Total Protein Albumin Lipase Arterial Blood Glucose Ur Specific [place] Vancomycin Trough Coronavirus (PCR) 05/28/21 05/29/21 05/29/21 17:05 01:03 05:07 WBC RBC Hgb MCV RDW Plt Count Lymph % (Auto) Eos % (Auto) Lymph # (Auto) Eos # (Auto) Seg Neutrophils % Seg Neuts % (Manual) Lymphocytes % (Manual) Seg Neutrophils # Man Lymphocytes # (Manual) PT INR ABG pH POC ABG pCO2 POC ABG pO2 ABG pO2 ABG HCO3 ABG Base Excess ABG Hemoglobin ABG Oxyhemoglobin ABG Sodium ABG Potassium ABG Chloride ABG Glucose Oxyhemoglobin Carboxyhemoglobin Sodium 148 H D Potassium 3.0 L Chloride 108.0 H Carbon Dioxide BUN Creatinine 0.2 L Glucose 155 H POC Glucose 207 H 204 H Lactic Acid Calcium 7.7 L Phosphorus Magnesium Total Bilirubin Direct Bilirubin AST ALT Alkaline Phosphatase Total Protein Albumin Lipase Arterial Blood Glucose Ur Specific [place] Vancomycin Trough Coronavirus (PCR) 05/29/21 05/29/21 05/29/21 08:20 11:30 17:53 WBC RBC Hgb MCV RDW Plt Count Lymph % (Auto) Eos % (Auto) Lymph # (Auto) Eos # (Auto) Seg Neutrophils % Seg Neuts % (Manual) Lymphocytes % (Manual) Seg Neutrophils # Man Lymphocytes # (Manual) PT INR ABG pH POC ABG pCO2 POC ABG pO2 ABG pO2 ABG HCO3 ABG Base Excess ABG Hemoglobin ABG Oxyhemoglobin ABG Sodium ABG Potassium ABG Chloride ABG Glucose Oxyhemoglobin Carboxyhemoglobin Sodium Potassium Chloride Carbon Dioxide BUN Creatinine Glucose POC Glucose 119 H 199 H Lactic Acid Calcium Phosphorus Magnesium Total Bilirubin Direct Bilirubin AST ALT Alkaline Phosphatase Total Protein Albumin Lipase Arterial Blood Glucose Ur Specific [place] Vancomycin Trough Coronavirus (PCR) Positive A 05/30/21 05/30/21 05/30/21 00:37 05:54 06:50 WBC RBC Hgb MCV RDW Plt Count Lymph % (Auto) Eos % (Auto) Lymph # (Auto) Eos # (Auto) Seg Neutrophils % Seg Neuts % (Manual) Lymphocytes % (Manual) Seg Neutrophils # Man Lymphocytes # (Manual) PT INR ABG pH POC ABG pCO2 POC ABG pO2 ABG pO2 ABG HCO3 ABG Base Excess ABG Hemoglobin ABG Oxyhemoglobin ABG Sodium ABG Potassium ABG Chloride ABG Glucose Oxyhemoglobin Carboxyhemoglobin Sodium Potassium Chloride Carbon Dioxide BUN Creatinine Glucose POC Glucose 117 H 56 L 157 H Lactic Acid Calcium Phosphorus Magnesium Total Bilirubin Direct Bilirubin AST ALT Alkaline Phosphatase Total Protein Albumin Lipase Arterial Blood Glucose Ur Specific [place] Vancomycin Trough Coronavirus (PCR) 05/30/21 05/30/21 05/31/21 17:18 23:54 05:27 WBC RBC Hgb MCV RDW Plt Count Lymph % (Auto) Eos % (Auto) Lymph # (Auto) Eos # (Auto) Seg Neutrophils % Seg Neuts % (Manual) Lymphocytes % (Manual) Seg Neutrophils # Man Lymphocytes # (Manual) PT INR ABG pH POC ABG pCO2 POC ABG pO2 ABG pO2 ABG HCO3 ABG Base Excess ABG Hemoglobin ABG Oxyhemoglobin ABG Sodium ABG Potassium ABG Chloride ABG Glucose Oxyhemoglobin Carboxyhemoglobin Sodium Potassium Chloride Carbon Dioxide BUN Creatinine Glucose POC Glucose 181 H 130 H 112 H Lactic Acid Calcium Phosphorus Magnesium Total Bilirubin Direct Bilirubin AST ALT Alkaline Phosphatase Total Protein Albumin Lipase Arterial Blood Glucose Ur Specific [place] Vancomycin Trough Coronavirus (PCR) 05/31/21 05/31/21 05/31/21 12:06 17:35 23:56 WBC RBC Hgb MCV RDW Plt Count Lymph % (Auto) Eos % (Auto) Lymph # (Auto) Eos # (Auto) Seg Neutrophils % Seg Neuts % (Manual) Lymphocytes % (Manual) Seg Neutrophils # Man Lymphocytes # (Manual) PT INR ABG pH POC ABG pCO2 POC ABG pO2 ABG pO2 ABG HCO3 ABG Base Excess ABG Hemoglobin ABG Oxyhemoglobin ABG Sodium ABG Potassium ABG Chloride ABG Glucose Oxyhemoglobin Carboxyhemoglobin Sodium Potassium Chloride Carbon Dioxide BUN Creatinine Glucose POC Glucose 170 H 109 H 136 H Lactic Acid Calcium Phosphorus Magnesium Total Bilirubin Direct Bilirubin AST ALT Alkaline Phosphatase Total Protein Albumin Lipase Arterial Blood Glucose Ur Specific [place] Vancomycin Trough Coronavirus (PCR) 06/02/21 06/02/21 06/02/21 04:28 05:36 08:59 WBC RBC 3.31 L Hgb MCV 100 H RDW 24.7 H Plt Count Lymph % (Auto) 12.8 L Eos % (Auto) 10.2 H Lymph # (Auto) 0.6 L Eos # (Auto) 0.5 H Seg Neutrophils % 75.5 H Seg Neuts % (Manual) Lymphocytes % (Manual) Seg Neutrophils # Man Lymphocytes # (Manual) PT INR ABG pH 7.258 L 7.251 L POC ABG pCO2 73.4 H 67.7 H POC ABG pO2 33.0 L 189.6 H ABG pO2 ABG HCO3 ABG Base Excess ABG Hemoglobin 11.8 L 11.8 L ABG Oxyhemoglobin 48.8 L ABG Sodium 146.7 H 146.3 H ABG Potassium 3.1 L ABG Chloride 109.0 H ABG Glucose 64 L Oxyhemoglobin Carboxyhemoglobin 1.6 H Sodium Potassium Chloride Carbon Dioxide BUN Creatinine Glucose POC Glucose Lactic Acid Calcium Phosphorus Magnesium Total Bilirubin Direct Bilirubin AST ALT Alkaline Phosphatase Total Protein Albumin Lipase Arterial Blood Glucose 64 L Ur Specific [place] Vancomycin Trough Coronavirus (PCR) 06/02/21 08:59 WBC RBC Hgb MCV RDW Plt Count Lymph % (Auto) Eos % (Auto) Lymph # (Auto) Eos # (Auto) Seg Neutrophils % Seg Neuts % (Manual) Lymphocytes % (Manual) Seg Neutrophils # Man Lymphocytes # (Manual) PT INR ABG pH POC ABG pCO2 POC ABG pO2 ABG pO2 ABG HCO3 ABG Base Excess ABG Hemoglobin ABG Oxyhemoglobin ABG Sodium ABG Potassium ABG Chloride ABG Glucose Oxyhemoglobin Carboxyhemoglobin Sodium 148 H Potassium 2.9 L* Chloride 111.1 H Carbon Dioxide BUN Creatinine 0.3 L Glucose 29 L* POC Glucose Lactic Acid Calcium 7.7 L Phosphorus Magnesium 1.50 L Total Bilirubin Direct Bilirubin AST ALT Alkaline Phosphatase Total Protein Albumin Lipase Arterial Blood Glucose Ur Specific [place] Vancomycin Trough Coronavirus (PCR) Chest x-ray: image reviewed (ETT in good position; persistent bilateral pulmonary infiltrates) Allied health notes reviewed: nursing
[2021-06-02] MEDS: DICYCLOMINE 10 MG CAP PO SCH ×4 (13:35→21:03)
--- NOTE | 2021-06-02 15:06 | Progress Note ---
Assessment and Plan Assessment and plan: This is a 48-year-old female with past medical history of COPD, pancreatic cancer with radiation s/p pancreatic stent placement, pulmonary fibrosis, chronic respiratory failure on 2 L NC at home initially admitted for admitted with sepsis, transaminitis and lactic acidosis. Initial plan was to discharge patient to inpatient hospice, however she was denied since her COVID test came back positive. Patient decompensated overnight with severe hypoxia on 100%, family notified who wanted to keep patient as a FULL code status. Patient was intubated and now on ventilatory support. Hospital Course to Date: 06/02: Patient intubated and sedated, RASS -5. Now hypentensive with tachycardia, on levophed gtt, continue continuous IVF and titrate pressors for MAP above 65. Hypokalemia and hypomagnesemia repleted, repeat labs 4hrs post treatment. Severely hypoglycemic this am, per RN TF has been on hold since patient was on Bipap. Low BG treated per hypoglycemic protocol, plan to resume TF today. Assessment and Plan #Neuro: Sedated -Intubated and sedated on Fentanyl and propofol, RASS -5 -Titrate seadtion for RASS goal -2 to -3 -Daily SAT and SBT per CCM -Avoid benzodiazepine to reduce the possibility of delirium -PRN analgesia for CPOT greater than 3 -Maintenance of sleep-wake cycle #CV: Hypotension #Septic Shock #h/o HTN -Decompendated overnight, now with low BP and tachycardic -On Levophed gtt -Titrate pressors for MAP goal above 65 -Maintain adequate perfusion -Continue rehydration with cont. IVF -Continue blood pressure monitor per protocol -Hold home htn medications -CCM consulted, appreciate recommendations #Respiratory: Acute on chronic respiratory failure #COVID positive #h/o pulmonary fibrosis #O2 Dependent at home -Decompendated overnight, low SPO2 in the 70s on 100% Bipap -Now intubated on 06/02 -Vent Setting: A/C 70%,10,26,400 -AM ABG noted -CCM consulted, appreciate recommendations -Continue IV Steroids and Nebs per CCM -VAP bundle addressed -Aspiration precaution HOB above 30 -Daily SBT and SAT trials as tolerated -Daily ABG and CXR per CCM -Continue SPO2 monitoring for SPO2 goal above 92% #GI: Transaminitis #H/o Pancreatic CA s/p stent placement #Biliary dilation #R/o cholangitis #Nausea/Vomiting- Resolved -CT abdomen/pelvis showed pancreatic cancer with metallic stent with possible occlusion, mild pelvic fluid and mild colonic thickening -No GI intervention per GI. GI signed off -Continue Enteral nutrition -Nutrition consulted -Continue PPI -Continue BR -PRN antiemetic for N/V #:Hypokalemia #hypomagnesemia -Electrolytes repleted -Continue to monitor and replete electrolytes as needed -Strict intake and output -Keep patient at a net negatibe balance -Daily weights -Renally dose meds, avoid nephrotoxins -Repeat Labs ordered #ID: Septic Jenny #COVID positive -Most likely hepatobiliary related -COVID swab now positive -Decompensated overnight, now tachy and hypotensive -X2 previous Blood cultures set where negative -Completed IV Abx course -Patient remains afebrile, WBCs normal -ID consulted signed off -Continue IV steroids -Panculture if febrile -Daily CBC monitor -Consider ID reconsult if febrile or/and if leukocytosis occur #Heme/ONC:Thrombocytosis #h/o Pancreatic Cancer #s/p pancreatic stent placement -S/p radiation -F/U with outpatient with own oncologist -possible stent occlusion, MRCP cancel patient too unstable -Not a surgical candidate per GI -RUE swelling- RUE doppler neg DVT -Continue AC-Lovenox and SCD to bilateral lower extremities while in bed -Trend CBC -Close monitor for s/s of active bleeding #Endo:Hypoglycemia-resolved -BG as low as 29 this am -TF has been on hold -Hypoglycemic protocol -Plan to resume TF -Continue IVF for now -Continue SSI Q6hrs and lantus -Avoid hypoglycemia The high probability of a clinically significant, sudden or life threatening deterioration of the [Multiple] system(s) required my full and direct attention, intervention and personal management. The aggregate critical care time was [60] minutes. This time is in addition to time spent performing reported procedures but includes the following: [x] Data Review and interpretation [x] Patient assessment and monitoring of vital signs [x] Documentation [x] Medication orders and management Disposition Plan: ICU Total Time Spent with Patient (Minutes): 60 History Interval history: Patient seen and examined at the bedside. Trasnfer from IMCU s/p intubated due acute erspiratory acidosis 2/2 to hypoxia. On the vent and sedated RASS -5. On Levophed due to hypotension. Hospitalist Physical - Constitutional Vitals: Temp Pulse Resp BP Pulse Ox 97.9 F 115 H 22 92/60 97 06/02/21 12:00 06/02/21 14:00 06/02/21 14:00 06/02/21 14:00 06/02/21 14:00 General appearance: Present: no acute distress, other (Intubated and Sedated) - EENT Eyes: Present: PERRL - Respiratory Respiratory effort: normal Respiratory: bilateral: diminished - Cardiovascular Rhythm: regular Heart Sounds: Present: S1 & S2 - Extremities Extremities: no ischemia, pulses intact, pulses symmetrical Extremity abnormal: edema - Peripheral Assessment Generalized Edema Type: Non-pitting Edema Degree: 1+ Capillary Refill: < 3 seconds Skin Temperature: Warm Peripheral Pulses: within normal limits - Abdominal General gastrointestinal: soft, non-tender, hypoactive bowel sounds - Integumentary Integumentary: Present: warm, dry - Psychiatric Psychiatric: other (Intubated and Sedated) - Neurologic Neurologic: other (Intubated and Sedated, RASS -5) - Allied Health Allied health notes reviewed: nursing Results - Labs CBC & Chem 7: 06/02/21 08:59 06/02/21 08:59 Labs: Laboratory Last Values WBC 4.7 K/mm3 (4.5-11.0) 06/02/21 08:59 RBC 3.31 M/mm3 (3.65-5.03) L 06/02/21 08:59 Hgb 10.5 gm/dl (10.1-14.3) 06/02/21 08:59 Hct 33.0 % (30.3-42.9) 06/02/21 08:59 MCV 100 fl (79-97) H 06/02/21 08:59 MCH 32 pg (28-32) 06/02/21 08:59 MCHC 32 % (30-34) 06/02/21 08:59 RDW 24.7 % (13.2-15.2) H 06/02/21 08:59 Plt Count 172 K/mm3 (140-440) 06/02/21 08:59 Lymph % (Auto) 12.8 % (13.4-35.0) L 06/02/21 08:59 [place] % (Auto) 1.0 % (0.0-7.3) 06/02/21 08:59 Eos % (Auto) 10.2 % (0.0-4.3) H 06/02/21 08:59 Baso % (Auto) 0.5 % (0.0-1.8) 06/02/21 08:59 Lymph # (Auto) 0.6 K/mm3 (1.2-5.4) L 06/02/21 08:59 Williamson # (Auto) 0.0 K/mm3 (0.0-0.8) 06/02/21 08:59 Eos # (Auto) 0.5 K/mm3 (0.0-0.4) H 06/02/21 08:59 Baso # (Auto) 0.0 K/mm3 (0.0-0.1) 06/02/21 08:59 Add Manual Diff Complete 05/12/21 04:08 Total Counted 200 05/12/21 04:08 Seg Neutrophils % 75.5 % (40.0-70.0) H 06/02/21 08:59 Seg Neuts % (Manual) 85.5 % (40.0-70.0) H 05/12/21 04:08 Band Neutrophils % 8.5 % 05/12/21 04:08 Lymphocytes % (Manual) 2.0 % (13.4-35.0) L 05/12/21 04:08 Monocytes % (Manual) 3.0 % (0.0-7.3) 05/12/21 04:08 Eosinophils % (Manual) 1.0 % (0.0-4.3) 05/12/21 04:08 Nucleated RBC % Not Reportable 05/12/21 04:08 Seg Neutrophils # 3.6 K/mm3 (1.8-7.7) 06/02/21 08:59 Seg Neutrophils # Man 19.5 K/mm3 (1.8-7.7) H 05/12/21 04:08 Band Neutrophils # 1.9 K/mm3 05/12/21 04:08 Lymphocytes # (Manual) 0.5 K/mm3 (1.2-5.4) L 05/12/21 04:08 Abs React Lymphs (Man) 0.0 K/mm3 05/12/21 04:08 Monocytes # (Manual) 0.7 K/mm3 (0.0-0.8) 05/12/21 04:08 Eosinophils # (Manual) 0.2 K/mm3 (0.0-0.4) 05/12/21 04:08 Basophils # (Manual) 0.0 K/mm3 (0.0-0.1) 05/12/21 04:08 Metamyelocytes # 0.0 K/mm3 05/12/21 04:08 Myelocytes # 0.0 K/mm3 05/12/21 04:08 Promyelocytes # 0.0 K/mm3 05/12/21 04:08 Blast Cells # 0.0 K/mm3 05/12/21 04:08 WBC Morphology Not Reportable 05/12/21 04:08 Hypersegmented Neuts Not Reportable 05/12/21 04:08 Hyposegmented Neuts Not Reportable 05/12/21 04:08 Hypogranular Neuts Not Reportable 05/12/21 04:08 Smudge Cells Not Reportable 05/12/21 04:08 Toxic Granulation Not Reportable 05/12/21 04:08 Toxic Vacuolation Not Reportable 05/12/21 04:08 Dohle Bodies Not Reportable 05/12/21 04:08 Pelger-Huet Anomaly Not Reportable 05/12/21 04:08 Elizbaeth Rods Not Reportable 05/12/21 04:08 Platelet Estimate Consistent w auto 05/12/21 04:08 Clumped Platelets Not Reportable 05/12/21 04:08 Plt Clumps, EDTA Not Reportable 05/12/21 04:08 Large Platelets Not Reportable 05/12/21 04:08 Giant Platelets Not Reportable 05/12/21 04:08 Platelet Satelliting Not Reportable 05/12/21 04:08 Plt Morphology Comment Not Reportable 05/12/21 04:08 RBC Morphology Not Reportable 05/12/21 04:08 Dimorphic RBCs Not Reportable 05/12/21 04:08 Polychromasia Not Reportable 05/12/21 04:08 Hypochromasia Not Reportable 05/12/21 04:08 Poikilocytosis Not Reportable 05/12/21 04:08 Anisocytosis 1+ 05/12/21 04:08 Microcytosis Not Reportable 05/12/21 04:08 Macrocytosis Not Reportable 05/12/21 04:08 Spherocytes Not Reportable 05/12/21 04:08 Pappenheimer Bodies Not Reportable 05/12/21 04:08 Sickle Cells Not Reportable 05/12/21 04:08 Target Cells Not Reportable 05/12/21 04:08 Tear Drop Cells Not Reportable 05/12/21 04:08 Ovalocytes Not Reportable 05/12/21 04:08 Helmet Cells Not Reportable 05/12/21 04:08 [place] Bodies Not Reportable 05/12/21 04:08 [place] Rings Not Reportable 05/12/21 04:08 [place] Cells Not Reportable 05/12/21 04:08 Bite Cells Not Reportable 05/12/21 04:08 Crenated Cell Not Reportable 05/12/21 04:08 Elliptocytes Not Reportable 05/12/21 04:08 Acanthocytes (Spur) Not Reportable 05/12/21 04:08 Rouleaux Not Reportable 05/12/21 04:08 Hemoglobin C Crystals Not Reportable 05/12/21 04:08 Schistocytes Not Reportable 05/12/21 04:08 Malaria parasites Not Reportable 05/12/21 04:08 [place]ir Bodies Not Reportable 05/12/21 04:08 Hem Pathologist Commnt No 05/12/21 04:08 PT 16.9 Sec. (12.2-14.9) H 05/23/21 10:15 INR 1.24 (0.87-1.13) H 05/23/21 10:15 ABG pH 7.251 (7.320-7.450) L 06/02/21 05:36 POC ABG pCO2 67.7 mmHg (32.0-48.0) H 06/02/21 05:36 ABG pCO2 42.9 mm Hg 05/19/21 14:14 POC ABG pO2 189.6 mmHg (83-108) H 06/02/21 05:36 ABG pO2 111.7 mm Hg (80.0-90.0) H 05/19/21 14:14 POC ABG HCO3 29.1 06/02/21 05:36 ABG HCO3 31.4 mmol/L (20.0-26.0) H 05/19/21 14:14 ABG O2 Saturation 99.1 (0-100) 06/02/21 05:36 ABG O2 Content 15.2 (0.0-44) 05/19/21 14:14 POC ABG Base Excess 0.5 06/02/21 05:36 ABG Base Excess 7.2 mmol/L (-2.0-3.0) H 05/19/21 14:14 ABG Hemoglobin 11.8 (12.0-17.5) L 06/02/21 05:36 ABG Oxyhemoglobin 97.3 (94-98) 06/02/21 05:36 ABG Carboxyhemoglobin 1.1 % (0.0-5.0) 05/19/21 14:14 ABG Methemoglobin 0.3 (0.0-1.5) 06/02/21 05:36 ABG Sodium 146.3 mmol/L (136.0-145.0) H 06/02/21 05:36 ABG Potassium 3.1 mmol/L (3.40-4.50) L 06/02/21 05:36 ABG Chloride 109.0 mmol/L (98-107) H 06/02/21 05:36 ABG Glucose 64 mg/dL (65-95) L 06/02/21 05:36 Oxyhemoglobin 96.4 % (95.0-99.0) 05/19/21 14:14 Carboxyhemoglobin 1.5 (0.5-1.5) 06/02/21 05:36 FiO2 100 % 05/19/21 14:14 FiO2 % 100 06/02/21 05:36 Sodium 148 mmol/L (137-145) H 06/02/21 08:59 Potassium 2.9 mmol/L (3.6-5.0) L* 06/02/21 08:59 Chloride 111.1 mmol/L (98-107) H 06/02/21 08:59 Carbon Dioxide 28 mmol/L (22-30) 06/02/21 08:59 Anion Gap 12 mmol/L 06/02/21 08:59 BUN 10 mg/dL (7-17) 06/02/21 08:59 Creatinine 0.3 mg/dL (0.6-1.2) L 06/02/21 08:59 Estimated GFR > 60 ml/min 06/02/21 08:59 BUN/Creatinine Ratio 33 % 06/02/21 08:59 Glucose 29 mg/dL (65-100) L* 06/02/21 08:59 POC Glucose 140 mg/dL (70-105) H 06/02/21 11:39 Hemoglobin A1c 5.2 % (4-6) 05/12/21 04:08 Lactic Acid 3.30 mmol/L (0.7-2.0) H* 05/12/21 Unknown Calcium 7.7 mg/dL (8.4-10.2) L 06/02/21 08:59 Phosphorus 4.30 mg/dL (2.5-4.5) 06/02/21 08:59 Magnesium 1.50 mg/dL (1.7-2.3) L 06/02/21 08:59 Total Bilirubin 2.30 mg/dL (0.1-1.2) H 05/23/21 10:15 Direct Bilirubin 1.6 mg/dL (0-0.2) H 05/23/21 10:15 Indirect Bilirubin 0.7 mg/dL 05/23/21 10:15 AST 161 units/L (5-40) H 05/23/21 10:15 ALT 396 units/L (7-56) H 05/23/21 10:15 Alkaline Phosphatase 186 units/L (35-129) H 05/23/21 10:15 Total Protein 4.7 g/dL (6.3-8.2) L 05/23/21 10:15 Albumin 2.0 g/dL (3.9-5) L 05/23/21 10:15 Albumin/Globulin Ratio 0.7 % 05/23/21 10:15 Triglycerides 90 mg/dL (2-149) 05/23/21 10:15 Lipase 3 units/L (13-60) L 05/11/21 05:43 Arterial Blood Glucose 64 mg/dL (65-95) L 06/02/21 05:36 Urine Color Deisi (Yellow) 05/11/21 11:18 Urine Turbidity Clear (Clear) 05/11/21 11:18 Urine pH 6.0 (5.0-7.0) 05/11/21 11:18 Ur Specific [place] 1.035 (1.003-1.030) H 05/11/21 11:18 Urine Protein 100 mg/dl mg/dL (Negative) 05/11/21 11:18 Urine Glucose (UA) Neg mg/dL (Negative) 05/11/21 11:18 Urine Ketones Neg mg/dL (Negative) 05/11/21 11:18 Urine Blood Neg (Negative) 05/11/21 11:18 Urine Nitrite Neg (Negative) 05/11/21 11:18 Urine Bilirubin Neg (Negative) 05/11/21 11:18 Urine Urobilinogen < 2.0 mg/dL (<2.0) 05/11/21 11:18 Ur Leukocyte Esterase Neg (Negative) 05/11/21 11:18 Urine WBC (Auto) 2.0 /HPF (0.0-6.0) 05/11/21 11:18 Urine RBC (Auto) 1.0 /HPF (0.0-6.0) 05/11/21 11:18 Urine Mucus Few /HPF 05/11/21 11:18 Vancomycin Trough 25.3 ug/mL (5.0-20.0) H 05/14/21 15:20 Coronavirus (PCR) Positive (Negative) A 05/29/21 08:20 Hepatitis A IgM Ab Non-reactive (NonReactive) 05/12/21 12:30 Hep Bs Antigen Nonreactive (Negative) 05/12/21 12:30 Hep B Core IgM Ab Non-reactive (NonReactive) 05/12/21 12:30 Hepatitis C Antibody Non-reactive (NonReactive) 05/12/21 12:30 Rivas/IV: Voiding Method Indwelling Catheter Active Medications - Current Medications Current Medications: Generic Name Dose Route Start Last Admin Trade Name Freq PRN Reason Stop Dose Admin Acetaminophen 650 mg 05/11/21 21:40 05/14/21 20:06 Acetaminophen 325 Mg Tab PO 650 mg Q4H PRN Administration Pain MILD(1-3)/Fever >100.5/WOODS Alprazolam 1 mg 05/28/21 09:53 06/02/21 00:12 Alprazolam 1 Mg Tab PO 1 mg Q8H PRN Administration Anxiety Lipase/Protease/Amylase 1 each 05/22/21 16:30 Lipase 10,500/Protease 25,000/Amylase 43,750 (Units) Dr Baker FEEDTUBE PRN PRN For Clogged Feeding Tube Arformoterol Tartrate 15 mcg 05/12/21 08:00 06/02/21 10:24 Arformoterol 15 Mcg/2 Ml Nebu IH Not Given Q12HRT ABRAHAN Benzonatate 100 mg 05/12/21 15:53 05/23/21 22:02 Benzonatate 100 Mg Cap PO 100 mg Q8HR PRN Administration Cough Budesonide 0.5 mg 05/12/21 08:00 06/02/21 10:25 Budesonide 0.5 Mg/2 Ml Nebu IH Not Given Q12HRT ABRAHAN Dexamethasone 6 mg 05/28/21 10:00 06/01/21 09:51 Dexamethasone 2 Mg Tab FEEDTUBE 6 mg Q24HR ABRAHAN Administration Dextrose 50 ml 05/12/21 11:57 06/02/21 10:55 Dextrose 50% In Water (25gm) 50 Ml Syringe IV 50 ml Q30MIN PRN Administration Hypoglycemia Protocol Dicyclomine HCl 10 mg 05/23/21 14:00 06/01/21 21:04 Dicyclomine 10 Mg Cap PO 10 mg QID ABRAHAN Administration Enoxaparin Sodium 40 mg 05/30/21 22:00 06/01/21 21:04 Enoxaparin 40 Mg/0.4 Ml Inj SUB-Q 40 mg QDAY@2200 [facility] Administration Fentanyl 50 mcg 06/02/21 05:20 Fentanyl 100 Mcg/2 Ml Inj IV Q10MIN PRN ANALGESIA Haloperidol Lactate 5 mg 05/19/21 15:00 06/01/21 21:04 Haloperidol Lactate 5 Mg/1 Ml Inj IV 5 mg Q8H PRN Administration Agitation Hydromorphone HCl 0.5 mg 05/26/21 14:58 06/02/21 04:44 Hydromorphone 1 Mg/1 Ml Inj IV 0.5 mg Q3H PRN Administration Pain , Severe (7-10) NORepinephrine/NS 8 MG-250 ML 8 mg in 250 mls @ 3.75 mls/hr 06/02/21 06:00 06/02/21 13:10 Norepinephrine/Ns 8 Mg-250 Ml (Double Conc) IV 12 mcg/min TITRATE ABRAHAN 22.5 mls/hr Titration Protocol 2 MCG/MIN Propofol 1,000 mg in 100 mls @ 1.932 mls/hr 06/02/21 06:00 06/02/21 05:54 Diprivan 10 Mg/Ml IV 5 mcg/kg/min TITR ABRAHAN 1.932 mls/hr Administration Protocol 5 MCG/KG/MIN Fentanyl Citrate 2,000 mcg in 100 mls @ 3.22 mls/hr 06/02/21 06:00 06/02/21 06:25 Fentanyl Drip Premix IV 2 mcg/kg/hr TITR ABRAHAN 6.44 mls/hr Titration Protocol 1 MCG/KG/HR Sodium Chloride 1,000 mls @ 100 mls/hr 06/02/21 06:15 Nacl 0.9% 1000 Ml IV DIRECT ABRAHAN Dextrose 1,000 mls @ 100 mls/hr 06/02/21 10:00 06/02/21 10:56 D5w IV 06/03/21 19:59 100 mls/hr DIRECT ABRAHAN Administration Insulin Glargine 20 units 05/22/21 22:00 06/01/21 21:04 Insulin Glargine 100 Units/Ml SUB-Q 20 units QHS ABRAHAN Administration Insulin Human Lispro 0 unit 05/17/21 12:00 06/02/21 00:50 Insulin Lispro 100 Unit/Ml SUB-Q Not Given Q6HR [facility] Protocol Lansoprazole 30 mg 05/28/21 10:00 06/02/21 10:56 Lansoprazole 30 Mg Solutab FEEDTUBE 30 mg QDAY ABRAHAN Administration Metoclopramide HCl 10 mg 05/11/21 21:40 Metoclopramide 10 Mg/2 Ml Inj IV Q6H PRN Nausea And Vomiting Morphine Sulfate 2 mg 05/11/21 21:40 05/26/21 09:42 Morphine 2 Mg/1 Ml Inj IV 2 mg Q4H PRN Administration Pain, Moderate (4-6) Ondansetron HCl 4 mg 05/11/21 21:40 05/15/21 09:57 Ondansetron 4 Mg/2 Ml Inj IV 4 mg Q8H PRN Administration Nausea And Vomiting Simple Syrup 15 ml 05/22/21 16:30 Simple Syrup 15 Ml FEEDTUBE PRN PRN Hypoglycemia Simple Syrup 30 ml 05/22/21 16:30 Simple Syrup 15 Ml FEEDTUBE PRN PRN Hypoglycemia Sodium Bicarbonate 325 mg 05/22/21 16:30 Sodium Bicarbonate 325 Mg Tab FEEDTUBE PRN PRN For Clogged Feeding Tube Sodium Chloride 10 ml 05/11/21 22:00 06/02/21 09:09 Sodium Chloride 0.9% 10 Ml Flush Syringe IV 10 ml BID ABRAHAN Administration Sodium Chloride 10 ml 05/11/21 21:40 05/23/21 21:00 Sodium Chloride 0.9% 10 Ml Flush Syringe IV 10 ml PRN PRN Administration LINE FLUSH Nutrition/Malnutrition Assess - Dietary Evaluation Nutrition/Malnutrition Findings: Nutrition Notes Start: 05/13/21 09:47 Freq: Status: Active Protocol: Document 06/01/21 12:45 MARITZA (Rec: 06/01/21 12:49 MARITZA [email or web address]) Nutrition Notes Initial or Follow up Reassessment Current Diagnosis COPD,Respiratory Failure Other Pertinent Diagnosis COVID-19 (+), Pancreatic CA, pulmonary fibrosis Current Diet TF - Glucerna 1.2 at 50ml/hr Labs/Tests Reviewed Pertinent Medications Reviewed Height 5 ft 2 in Weight 64.4 kg [place] Body Weight (kg) 50.00 BMI 25.9 Weight Status Appropriate Subjective/Other Information Pt tolerating Glucerna 1.2 at goal rate. She remains on BiPap support. Referral made to [facility] hospice. Percent of energy/protein needs met: 100% energy and pro Burn Absent Trauma Absent #2 Nutrition Diagnosis Malnutrition Diagnosis Progress(for reassessment Continues documentation) Is patient on ventilator? No Is Patient Ambulatory and/or Out of Bed No REE-([facility]-confined to bed) 1447.020 Calculation Used for Recommendations [facility] Additional Notes Pro needs 1-1.2g/k-77g/ day Fluid needs 1ml/kcal Nutrition Intervention Nutrition Support: Continue Glucerna 1.2 at 50ml/ hr with 80ml water flush q4h. Kcal 1,440 Protein (gm) 72 Carbohydrates (gm) 137 Fat (gm) 72 Fluid (mL) 966 Fiber (gm) 19 Goal #1 TF tolerance Goal #2 TF to meet at least 75% energy and pro needs Follow-Up By: 06/08/21 Additional Comments F/U: stable TF, resp status, wt
[2021-06-02 15:09] LABS: ABG HCO3 26.2 mmol/L (20.0-26.0); ABG Methemoglobin 0.5 % (0.0-1.5); ABG PCO2 49.9 mm Hg; ABG PH 7.339 pH Units (7.350-7.450); ABG PO2 91.4 mm Hg (80.0-90.0)
[2021-06-02] MEDS ORDERED: MINERAL OIL/PETROLATUM, WHITE OPHTH OINT 3.5 GM OU PRN (17:44)
[2021-06-02] MEDS ORDERED: LIP THERAPY VASELINE TP PRN (17:44)
[2021-06-02] MEDS ORDERED: REMDESIVIR 200 MG in SODIUM CHLORIDE 0.9% 250ML 250 ML IV ONE (18:30)
[2021-06-02] MEDS: DEXAMETHASONE 2 MG TAB FEEDTUBE SCH (18:34)
[2021-06-02] MEDS: FREE WATER PO SCH (19:37)
[2021-06-02] MEDS: FUROSEMIDE 20 MG/2 ML INJ IV SCH (20:05)
[2021-06-02] MEDS: SODIUM CHLORIDE 0.9% 50 ML IVPB IV SCH (20:05)
[2021-06-02] MEDS: DEXTROSE 5% IN WATER 1,000 ML IV SCH (20:06)
[2021-06-02] MEDS: ASCORBIC ACID 500 MG TAB PO SCH (21:03)
[2021-06-02] MEDS: ZINC SULFATE 220 MG CAP PO SCH (21:04)
[2021-06-02] MEDS: ENOXAPARIN 40 MG/0.4 ML INJ SUB-Q SCH (21:04)
[2021-06-02] MEDS: SENNOSIDES/DOCUSATE SODIUM 8.6/50 MG TAB FEEDTUBE SCH (21:04)
[2021-06-02 22:24] LABS: Blood Urea Nitrogen 15 mg/dL (7-17); Calcium 7.5 mg/dL (8.4-10.2); Hemolysis Index 5
[2021-06-02 22:28] LABS: Alanine Aminotransferase 96 units/L (7-56); Blood Urea Nitrogen 15 mg/dL (7-17); Calcium 7.5 mg/dL (8.4-10.2); Hemolysis Index 2
[2021-06-02 22:37] LABS: BUN/Creatinine Ratio 25
[2021-06-02 22:38] LABS: BUN/Creatinine Ratio 25
[2021-06-03] MEDS: INSULIN LISPRO 100 UNIT/ML SUB-Q SCH ×5 (00:47→23:52)
[2021-06-03] MEDS: FREE WATER PO SCH ×5 (00:47→23:52)
[2021-06-03] MEDS: NORepinephrine/NS 8 MG-250 ML 8 MG/250 ML INFUS..BTL IV SCH ×2 (04:37→17:37)
[2021-06-03 05:41] LABS: Hematocrit 35.2 % (30.3-42.9); Hemoglobin 10.8 gm/dl (10.1-14.3); Mean Corpuscular HGB Conc 31 % (30-34); Mean Corpuscular Volume 102 fl (79-97); Platelet Count 210 K/mm3 (140-440); Red Blood Count 3.44 M/mm3 (3.65-5.03)
[2021-06-03 05:44] LABS: Red Cell Distribution Width 25.4 % (13.2-15.2)
[2021-06-03 05:52] LABS: Alanine Aminotransferase 103 units/L (7-56); Blood Urea Nitrogen 15 mg/dL (7-17); Calcium 7.6 mg/dL (8.4-10.2); Hemolysis Index 8
[2021-06-03 06:06] LABS: BUN/Creatinine Ratio 25
--- NOTE | 2021-06-03 06:07 | XRay Report ---
CHEST 1 VIEW INDICATION: follow up respiratory failure. COMPARISON: Yesterday FINDINGS: SUPPORT DEVICES: Dobbhoff tube tip is now below the [id number]-tizn. HEART: Within normal limits. LUNGS/PLEURA: Persistent moderate diffuse interstitial disease in the lungs. ADDITIONAL FINDINGS: None. IMPRESSION: 1. Moderate diffuse interstitial disease again noted in the lungs. Signer Name: Philip Nolan MD Signed: 06/03/2021 6:02 AM Workstation Name: [id number]
[2021-06-03] MEDS: ARFORMOTEROL 15 MCG/2 ML NEBU IH SCH ×2 (10:10→21:18)
[2021-06-03] MEDS: BUDESONIDE 0.5 MG/2 ML NEBU IH SCH ×2 (10:10→21:18)
[2021-06-03 10:16] LABS: ABG Base Excess -1.7 mmol/L (-2.0-3.0); ABG HCO3 24.8 mmol/L (20.0-26.0); ABG Methemoglobin 0.7 % (0.0-1.5); ABG PCO2 50.3 mm Hg; ABG PH 7.312 pH Units (7.350-7.450); ABG PO2 68.5 mm Hg (80.0-90.0)
[2021-06-03] MEDS: fentaNYL DRIP Premix 2,000 MCG/100 ML BAG IV SCH (10:34)
[2021-06-03] MEDS: FUROSEMIDE 20 MG/2 ML INJ IV SCH (10:36)
[2021-06-03] MEDS: SENNOSIDES/DOCUSATE SODIUM 8.6/50 MG TAB FEEDTUBE SCH ×2 (10:36→21:16)
[2021-06-03] MEDS: ASCORBIC ACID 500 MG TAB PO SCH ×2 (10:36→21:16)
[2021-06-03] MEDS: DICYCLOMINE 10 MG CAP PO SCH ×4 (10:36→21:17)
[2021-06-03] MEDS: LANSOPRAZOLE 30 MG SOLUTAB FEEDTUBE SCH (10:36)
[2021-06-03] MEDS: ZINC SULFATE 220 MG CAP PO SCH ×2 (10:38→21:16)
--- NOTE | 2021-06-03 13:18 | Progress Note ---
Assessment and Plan Assessment and plan: This is a 48-year-old female with past medical history of COPD, pancreatic cancer with radiation s/p pancreatic stent placement, pulmonary fibrosis, chronic respiratory failure on 2 L NC at home initially admitted for admitted with sepsis, transaminitis and lactic acidosis. Initial plan was to discharge patient to inpatient hospice, however she was denied since her COVID test came back positive. Patient decompensated overnight with severe hypoxia on 100%, family notified who wanted to keep patient as a FULL code status. Patient was intubated and now on ventilatory support. Hospital Course to Date: 06/02: Patient intubated and sedated, RASS -5. Now hypotensive with tachycardia, on levophed gtt, continue continuous IVF and titrate pressors for MAP above 65. Hypokalemia and hypomagnesemia repleted, repeat labs 4hrs post treatment. Severely hypoglycemic this am, per RN TF has been on hold since patient was on Bipap. Low BG treated per hypoglycemic protocol, plan to resume TF today. 06/03: RASS of 0 to -1 this am, following commands, remains on sedation. Mirza in WBCs this am, patient remains afebrile, blood culture and sputum culture pending. Probably reactive, patient on IV steroids, remdesevir starting tonight. Continue to trend CBC. Conference call with CCM and patient's son and daughter today. All questions and concerns were addressed. Assessment and Plan #Neuro: Sedated -Intubated and sedated on Fentanyl and propofol, RASS 0 to -1 -Titrate seadtion for RASS goal 0 to -2 -Daily SAT and SBT per CCM -Avoid benzodiazepine to reduce the possibility of delirium -PRN analgesia for CPOT greater than 3 -Maintenance of sleep-wake cycle #CV: Hypotension #Septic Shock #h/o HTN -Decompendated overnight, now with low BP and tachycardic -On Levophed gtt -Titrate pressors for MAP goal above 65 -Maintain adequate perfusion -Continue rehydration with cont. IVF -Continue blood pressure monitor per protocol -Hold home htn medications -CCM consulted, appreciate recommendations #Respiratory: Acute on chronic respiratory failure #COVID positive #h/o pulmonary fibrosis #O2 Dependent at home -Decompendated overnight, low SPO2 in the 70s on 100% Bipap -Now intubated on 06/02 -Vent Setting: A/C-85%,10,26,400 -AM ABG noted -CCM consulted, appreciate recommendations -Continue [place] Steroids and [place] [facility] [place]VAP bundle addressed -Aspiration precaution HOB above 30 -Daily SBT and SAT trials as tolerated -Daily ABG and CXR per [facility] -Continue SPO2 monitoring for SPO2 goal above 92% #GI: Transaminitis #H/o Pancreatic CA s/p stent placement #Biliary dilation #R/o cholangitis #Nausea/Vomiting- Resolved -CT abdomen/pelvis showed pancreatic cancer with metallic stent with possible occlusion, mild pelvic fluid and mild colonic thickening -No GI intervention per GI. GI signed off -Continue Enteral nutrition -Nutrition consulted -Continue PPI -Continue BR -PRN antiemetic for N/V #:Hypokalemia-improved #hypomagnesemia-improved -Continue to monitor and replete electrolytes as needed -Strict intake and output -Keep patient at a net negatibe balance -Daily weights -Renally dose meds, avoid nephrotoxins -Repeat Labs ordered -Trend BMP #ID: Septic Jenny #COVID positive -Most likely hepatobiliary related -COVID swab now positive -Decompensated- now tachy and hypotensive -X2 previous Blood cultures set where negative -Completed IV Abx course -Patient remains afebrile -Mirza in WBCs this am, on IV steroids -Repeat Blood culture and sputum culture pending -Remdesevir to start tonight -ID consulted signed off -Continue IV steroids -Daily CBC monitor -Consider ID reconsult if febrile or/and if leukocytosis persist #Heme/ONC:Thrombocytosis-resolved #h/o Pancreatic Cancer #s/p pancreatic stent placement -S/p radiation -F/U with outpatient with own oncologist -possible stent occlusion, MRCP cancel patient too unstable -Not a surgical candidate per GI -RUE swelling- RUE doppler neg DVT -Continue AC-Lovenox and SCD to bilateral lower extremities while in bed -Trend CBC -Close monitor for s/s of active bleeding #Endo:Hypoglycemia-resolved -BG as low as 29 this am -Hypoglycemic protocol -Continue SSI Q6hrs -lantus on hold -Avoid hypoglycemia The high probability of a clinically significant, sudden or life threatening deterioration of the [Multiple] system(s) required my full and direct attention, intervention and personal management. The aggregate critical care time was [60] minutes. This time is in addition to time spent performing reported procedures but includes the following: [x] Data Review and interpretation [x] Patient assessment and monitoring of vital signs [x] Documentation [x] Medication orders and management Disposition Plan: ICU Total Time Spent with Patient (Minutes): 60 History Interval history: Patient seen and examined at the bedside. Remains intubated and on fentanyl and propofol gtt, RASS 0 to -1, following commands. Remains on Levophed gtt. STEPHEN overnight Hospitalist Physical - Constitutional Vitals: Temp Pulse Resp BP Pulse Ox 99.0 F 114 H 17 100/66 98 06/03/21 12:00 06/03/21 12:00 06/03/21 12:00 06/03/21 12:00 06/03/21 12:00 General appearance: Present: no acute distress, other (Intubated and Sedated) Results - Labs CBC & Chem 7: 06/03/21 04:45 06/03/21 04:45 Labs: Laboratory Last Values WBC 13.6 K/mm3 (4.5-11.0) H 06/03/21 04:45 RBC 3.44 M/mm3 (3.65-5.03) L 06/03/21 04:45 Hgb 10.8 gm/dl (10.1-14.3) 06/03/21 04:45 Hct 35.2 % (30.3-42.9) 06/03/21 04:45 MCV 102 fl (79-97) H 06/03/21 04:45 MCH 31 pg (28-32) 06/03/21 04:45 MCHC 31 % (30-34) 06/03/21 04:45 RDW 25.4 % (13.2-15.2) H 06/03/21 04:45 Plt Count 210 K/mm3 (140-440) 06/03/21 04:45 Lymph % (Auto) 12.8 % (13.4-35.0) L 06/02/21 08:59 [place] % (Auto) 1.0 % (0.0-7.3) 06/02/21 08:59 Eos % (Auto) 10.2 % (0.0-4.3) H 06/02/21 08:59 Baso % (Auto) 0.5 % (0.0-1.8) 06/02/21 08:59 Lymph # (Auto) 0.6 K/mm3 (1.2-5.4) L 06/02/21 08:59 [place] # (Auto) 0.0 K/mm3 (0.0-0.8) 06/02/21 08:59 Eos # (Auto) 0.5 K/mm3 (0.0-0.4) H 06/02/21 08:59 Baso # (Auto) 0.0 K/mm3 (0.0-0.1) 06/02/21 08:59 Add Manual Diff Complete 05/12/21 04:08 Total Counted 200 05/12/21 04:08 Seg Neutrophils % 75.5 % (40.0-70.0) H 06/02/21 08:59 Seg Neuts % (Manual) 85.5 % (40.0-70.0) H 05/12/21 04:08 Band Neutrophils % 8.5 % 05/12/21 04:08 Lymphocytes % (Manual) 2.0 % (13.4-35.0) L 05/12/21 04:08 Monocytes % (Manual) 3.0 % (0.0-7.3) 05/12/21 04:08 Eosinophils % (Manual) 1.0 % (0.0-4.3) 05/12/21 04:08 Nucleated RBC % Not Reportable 05/12/21 04:08 Seg Neutrophils # 3.6 K/mm3 (1.8-7.7) 06/02/21 08:59 Seg Neutrophils # Man 19.5 K/mm3 (1.8-7.7) H 05/12/21 04:08 Band Neutrophils # 1.9 K/mm3 05/12/21 04:08 Lymphocytes # (Manual) 0.5 K/mm3 (1.2-5.4) L 05/12/21 04:08 Abs React Lymphs (Man) 0.0 K/mm3 05/12/21 04:08 Monocytes # (Manual) 0.7 K/mm3 (0.0-0.8) 05/12/21 04:08 Eosinophils # (Manual) 0.2 K/mm3 (0.0-0.4) 05/12/21 04:08 Basophils # (Manual) 0.0 K/mm3 (0.0-0.1) 05/12/21 04:08 Metamyelocytes # 0.0 K/mm3 05/12/21 04:08 Myelocytes # 0.0 K/mm3 05/12/21 04:08 Promyelocytes # 0.0 K/mm3 05/12/21 04:08 Blast Cells # 0.0 K/mm3 05/12/21 04:08 WBC Morphology Not Reportable 05/12/21 04:08 Hypersegmented Neuts Not Reportable 05/12/21 04:08 Hyposegmented Neuts Not Reportable 05/12/21 04:08 Hypogranular Neuts Not Reportable 05/12/21 04:08 Smudge Cells Not Reportable 05/12/21 04:08 Toxic Granulation Not Reportable 05/12/21 04:08 Toxic Vacuolation Not Reportable 05/12/21 04:08 Dohle Bodies Not Reportable 05/12/21 04:08 Pelger-Huet Anomaly Not Reportable 05/12/21 04:08 Elizabeth Rods Not Reportable 05/12/21 04:08 Platelet Estimate Consistent w auto 05/12/21 04:08 Clumped Platelets Not Reportable 05/12/21 04:08 Plt Clumps, EDTA Not Reportable 05/12/21 04:08 Large Platelets Not Reportable 05/12/21 04:08 Giant Platelets Not Reportable 05/12/21 04:08 Platelet Satelliting Not Reportable 05/12/21 04:08 Plt Morphology Comment Not Reportable 05/12/21 04:08 RBC Morphology Not Reportable 05/12/21 04:08 Dimorphic RBCs Not Reportable 05/12/21 04:08 Polychromasia Not Reportable 05/12/21 04:08 Hypochromasia Not Reportable 05/12/21 04:08 Poikilocytosis Not Reportable 05/12/21 04:08 Anisocytosis 1+ 05/12/21 04:08 Microcytosis Not Reportable 05/12/21 04:08 Macrocytosis Not Reportable 05/12/21 04:08 Spherocytes Not Reportable 05/12/21 04:08 Pappenheimer Bodies Not Reportable 05/12/21 04:08 Sickle Cells Not Reportable 05/12/21 04:08 Target Cells Not Reportable 05/12/21 04:08 Tear Drop Cells Not Reportable 05/12/21 04:08 Ovalocytes Not Reportable 05/12/21 04:08 Helmet Cells Not Reportable 05/12/21 04:08 [place] Bodies Not Reportable 05/12/21 04:08 Ault Rings Not Reportable 05/12/21 04:08 Marcin Cells Not Reportable 05/12/21 04:08 Bite Cells Not Reportable 05/12/21 04:08 Crenated Cell Not Reportable 05/12/21 04:08 Elliptocytes Not Reportable 05/12/21 04:08 Acanthocytes (Spur) Not Reportable 05/12/21 04:08 Rouleaux Not Reportable 05/12/21 04:08 Hemoglobin C Crystals Not Reportable 05/12/21 04:08 Schistocytes Not Reportable 05/12/21 04:08 Malaria parasites Not Reportable 05/12/21 04:08 Tahir Bodies Not Reportable 05/12/21 04:08 Hem Pathologist Commnt No 05/12/21 04:08 PT 16.9 Sec. (12.2-14.9) H 05/23/21 10:15 INR 1.24 (0.87-1.13) H 05/23/21 10:15 ABG pH 7.312 pH Units (7.350-7.450) L 06/03/21 10:00 POC ABG pCO2 67.7 mmHg (32.0-48.0) H 06/02/21 05:36 ABG pCO2 50.3 mm Hg 06/03/21 10:00 POC ABG pO2 189.6 mmHg (83-108) H 06/02/21 05:36 ABG pO2 68.5 mm Hg (80.0-90.0) L 06/03/21 10:00 POC ABG HCO3 29.1 06/02/21 05:36 ABG HCO3 24.8 mmol/L (20.0-26.0) 06/03/21 10:00 ABG O2 Saturation 93.0 % (95.0-99.0) L 06/03/21 10:00 ABG O2 Content 14.6 (0.0-44) 06/03/21 10:00 POC ABG Base Excess 0.5 06/02/21 05:36 ABG Base Excess -1.7 mmol/L (-2.0-3.0) 06/03/21 10:00 ABG Hemoglobin 11.5 gm/dl (12.0-16.0) L 06/03/21 10:00 ABG Oxyhemoglobin 97.3 (94-98) 06/02/21 05:36 ABG Carboxyhemoglobin 2.5 % (0.0-5.0) 06/03/21 10:00 ABG Methemoglobin 0.7 % (0.0-1.5) 06/03/21 10:00 ABG Sodium 146.3 mmol/L (136.0-145.0) H 06/02/21 05:36 ABG Potassium 3.1 mmol/L (3.40-4.50) L 06/02/21 05:36 ABG Chloride 109.0 mmol/L (98-107) H 06/02/21 05:36 ABG Glucose 64 mg/dL (65-95) L 06/02/21 05:36 Oxyhemoglobin 90.1 % (95.0-99.0) L 06/03/21 10:00 Carboxyhemoglobin 1.5 (0.5-1.5) 06/02/21 05:36 FiO2 85 % 06/03/21 10:00 FiO2 % 100 06/02/21 05:36 Sodium 142 mmol/L (137-145) 06/03/21 04:45 Potassium 4.9 mmol/L (3.6-5.0) D 06/03/21 04:45 Chloride 106.0 mmol/L (98-107) 06/03/21 04:45 Carbon Dioxide 24 mmol/L (22-30) 06/03/21 04:45 Anion Gap 17 mmol/L 06/03/21 04:45 BUN 15 mg/dL (7-17) 06/03/21 04:45 Creatinine 0.6 mg/dL (0.6-1.2) 06/03/21 04:45 Estimated GFR > 60 ml/min 06/03/21 04:45 BUN/Creatinine Ratio 25 % 06/03/21 04:45 Glucose 151 mg/dL (65-100) H 06/03/21 04:45 POC Glucose 150 mg/dL (70-105) H 06/03/21 11:46 Hemoglobin A1c 5.2 % (4-6) 05/12/21 04:08 Lactic Acid 3.30 mmol/L (0.7-2.0) H* 05/12/21 Unknown Calcium 7.6 mg/dL (8.4-10.2) L 06/03/21 04:45 Phosphorus 6.70 mg/dL (2.5-4.5) H D 06/03/21 04:45 Magnesium 2.20 mg/dL (1.7-2.3) 06/03/21 04:45 Total Bilirubin 1.00 mg/dL (0.1-1.2) 06/03/21 04:45 Direct Bilirubin 1.6 mg/dL (0-0.2) H 05/23/21 10:15 Indirect Bilirubin 0.7 mg/dL 05/23/21 10:15 AST 68 units/L (5-40) H 06/03/21 04:45 ALT 103 units/L (7-56) H 06/03/21 04:45 Alkaline Phosphatase 226 units/L (35-129) H 06/03/21 04:45 NT-Pro-B Natriuret Pep 2326 pg/mL (0-900) H 06/02/21 22:00 Total Protein 6.0 g/dL (6.3-8.2) L 06/03/21 04:45 Albumin 2.0 g/dL (3.9-5) L 06/03/21 04:45 Albumin/Globulin Ratio 0.5 % 06/03/21 04:45 Triglycerides 90 mg/dL (2-149) 05/23/21 10:15 Lipase 3 units/L (13-60) L 05/11/21 05:43 Arterial Blood Glucose 64 mg/dL (65-95) L 06/02/21 05:36 Urine Color Deisi (Yellow) 05/11/21 11:18 Urine Turbidity Clear (Clear) 05/11/21 11:18 Urine pH 6.0 (5.0-7.0) 05/11/21 11:18 Ur Specific [place] 1.035 (1.003-1.030) H 05/11/21 11:18 Urine Protein 100 mg/dl mg/dL (Negative) 05/11/21 11:18 Urine Glucose (UA) Neg mg/dL (Negative) 05/11/21 11:18 Urine Ketones Neg mg/dL (Negative) 05/11/21 11:18 Urine Blood Neg (Negative) 05/11/21 11:18 Urine Nitrite Neg (Negative) 05/11/21 11:18 Urine Bilirubin Neg (Negative) 05/11/21 11:18 Urine Urobilinogen < 2.0 mg/dL (<2.0) 05/11/21 11:18 Ur Leukocyte Esterase Neg (Negative) 05/11/21 11:18 Urine WBC (Auto) 2.0 /HPF (0.0-6.0) 05/11/21 11:18 Urine RBC (Auto) 1.0 /HPF (0.0-6.0) 05/11/21 11:18 Urine Mucus Few /HPF 05/11/21 11:18 Vancomycin Trough 25.3 ug/mL (5.0-20.0) H 05/14/21 15:20 Coronavirus (PCR) Positive (Negative) A 05/29/21 08:20 Hepatitis A IgM Ab Non-reactive (NonReactive) 05/12/21 12:30 Hep Bs Antigen Nonreactive (Negative) 05/12/21 12:30 Hep B Core IgM Ab Non-reactive (NonReactive) 05/12/21 12:30 Hepatitis C Antibody Non-reactive (NonReactive) 05/12/21 12:30 Rivas/IV: Voiding Method Indwelling Catheter Active Medications - Current Medications Current Medications: Generic Name Dose Route Start Last Admin Trade Name Freq PRN Reason Stop Dose Admin Acetaminophen 650 mg 05/11/21 21:40 05/14/21 20:06 Acetaminophen 325 Mg Tab PO 650 mg Q4H PRN Administration Pain MILD(1-3)/Fever >100.5/WOODS Alprazolam 1 mg 05/28/21 09:53 06/02/21 00:12 Alprazolam 1 Mg Tab PO 1 mg Q8H PRN Administration Anxiety Lipase/Protease/Amylase 1 each 05/22/21 16:30 Lipase 10,500/Protease 25,000/Amylase 43,750 (Units) Dr Baker FEEDTUBE PRN PRN For Clogged Feeding Tube Arformoterol Tartrate 15 mcg 05/12/21 08:00 06/03/21 10:10 Arformoterol 15 Mcg/2 Ml Nebu IH Not Given Q12HRT BARAHAN Ascorbic Acid 500 mg 06/02/21 22:00 06/03/21 10:36 Ascorbic Acid 500 Mg Tab PO 500 mg BID ABRAHAN Administration Benzonatate 100 mg 05/12/21 15:53 05/23/21 22:02 Benzonatate 100 Mg Cap PO 100 mg Q8HR PRN Administration Cough Budesonide 0.5 mg 05/12/21 08:00 06/03/21 10:10 Budesonide 0.5 Mg/2 Ml Nebu IH Not Given Q12HRT ABRAHAN Dexamethasone 6 mg 05/28/21 10:00 06/02/21 18:34 Dexamethasone 2 Mg Tab FEEDTUBE 6 mg Q24HR ABRAHAN Administration Dextrose 50 ml 05/12/21 11:57 06/02/21 18:34 Dextrose 50% In Water (25gm) 50 Ml Syringe IV 50 ml Q30MIN PRN Administration Hypoglycemia Protocol Dicyclomine HCl 10 mg 05/23/21 14:00 06/03/21 10:36 Dicyclomine 10 Mg Cap PO 10 mg QID [facility] Administration Enoxaparin Sodium 40 mg 05/30/21 22:00 06/02/21 21:04 Enoxaparin 40 Mg/0.4 Ml Inj SUB-Q 40 mg QDAY@2200 [facility] Administration Fentanyl 50 mcg 06/02/21 05:20 Fentanyl 100 Mcg/2 Ml Inj IV Q10MIN PRN ANALGESIA Furosemide 20 mg 06/02/21 20:00 06/03/21 10:36 Furosemide 20 Mg/2 Ml Inj IV 06/05/21 19:59 20 mg QDAY [facility] Administration Haloperidol Lactate 5 mg 05/19/21 15:00 06/01/21 21:04 Haloperidol Lactate 5 Mg/1 Ml Inj IV 5 mg Q8H PRN Administration Agitation Hydromorphone HCl 0.5 mg 05/26/21 14:58 06/02/21 04:44 Hydromorphone 1 Mg/1 Ml Inj IV 0.5 mg Q3H PRN Administration Pain , Severe (7-10) Hydrophilic Ointment 1 applic 06/02/21 17:44 Lip Therapy Vaseline TP Q2HR PRN Dry Lips NORepinephrine/NS 8 MG-250 ML 8 mg in 250 mls @ 3.75 mls/hr 06/02/21 06:00 06/03/21 10:36 Norepinephrine/Ns 8 Mg-250 Ml (Double Conc) IV 8 mcg/min TITRATE ABRAHAN 15 mls/hr Titration Protocol 2 MCG/MIN Propofol 1,000 mg in 100 mls @ 1.932 mls/hr 06/02/21 06:00 06/02/21 05:54 Diprivan 10 Mg/Ml IV 5 mcg/kg/min TITR ABRAHAN 1.932 mls/hr Administration Protocol 5 MCG/KG/MIN Fentanyl Citrate 2,000 mcg in 100 mls @ 3.22 mls/hr 06/02/21 06:00 06/03/21 10:34 Fentanyl Drip Premix IV 2 mcg/kg/hr TITR ABRAHAN 6.44 mls/hr Administration Protocol 1 MCG/KG/HR REMDESIVIR 100 mg/ Sodium 250 mls @ 500 mls/hr 06/03/21 21:00 Chloride IV 06/06/21 21:29 Q24HR@2100 ABRAHAN Dextrose 1,000 mls @ 100 mls/hr 06/02/21 20:00 06/02/21 20:06 D5w IV 06/03/21 19:59 100 mls/hr DIRECT ABRAHAN Administration Insulin Human Lispro 0 unit 05/17/21 12:00 06/03/21 12:12 Insulin Lispro 100 Unit/Ml SUB-Q 3 unit Q6HR ABRAHAN Administration Protocol Lansoprazole 30 mg 05/28/21 10:00 06/03/21 10:36 Lansoprazole 30 Mg Solutab FEEDTUBE 30 mg QDAY ABRAHAN Administration Metoclopramide HCl 10 mg 05/11/21 21:40 Metoclopramide 10 Mg/2 Ml Inj IV Q6H PRN Nausea And Vomiting Morphine Sulfate 2 mg 05/11/21 21:40 05/26/21 09:42 Morphine 2 Mg/1 Ml Inj IV 2 mg Q4H PRN Administration Pain, Moderate (4-6) Multi-Ingred Cream/Lotion/Oil/Oint 1 applic 06/02/21 17:44 Mineral Oil/Petrolatum, White Ophth Oint 3.5 Gm OU Q4HR PRN Dry Eye(s) Ondansetron HCl 4 mg 05/11/21 21:40 05/15/21 09:57 Ondansetron 4 Mg/2 Ml Inj IV 4 mg Q8H PRN Administration Nausea And Vomiting Senna/Docusate Sodium 1 tab 06/02/21 22:00 06/03/21 10:36 Sennosides/Docusate Sodium 8.6/50 Mg Tab FEEDTUBE 1 tab BID ABRAHAN Administration Simple Syrup 15 ml 05/22/21 16:30 Simple Syrup 15 Ml FEEDTUBE PRN PRN Hypoglycemia Simple Syrup 30 ml 05/22/21 16:30 Simple Syrup 15 Ml FEEDTUBE PRN PRN Hypoglycemia Sodium Bicarbonate 325 mg 05/22/21 16:30 Sodium Bicarbonate 325 Mg Tab FEEDTUBE PRN PRN For Clogged Feeding Tube Sodium Chloride 10 ml 05/11/21 22:00 06/03/21 10:37 Sodium Chloride 0.9% 10 Ml Flush Syringe IV 10 ml BID ABRAHAN Administration Sodium Chloride 10 ml 05/11/21 21:40 05/23/21 21:00 Sodium Chloride 0.9% 10 Ml Flush Syringe IV 10 ml PRN PRN Administration LINE FLUSH Sodium Chloride 50 ml 06/02/21 18:30 06/02/21 20:05 Sodium Chloride 0.9% 50 Ml Ivpb IV 06/06/21 21:01 50 ml Q24HR@2100 ABRAHAN Administration Zinc Sulfate 220 mg 06/02/21 22:00 06/03/21 10:38 Zinc Sulfate 220 Mg Cap PO 220 mg BID ABRAHAN Administration Nutrition/Malnutrition Assess - Dietary Evaluation Nutrition/Malnutrition Findings: Nutrition Notes Start: 05/13/21 09:47 Freq: Status: Active Protocol: Document 06/01/21 12:45 MARITZA (Rec: 06/01/21 12:49 [facility] [id number]) Nutrition Notes Initial or Follow up Reassessment Current Diagnosis COPD,Respiratory Failure Other Pertinent Diagnosis COVID-19 (+), Pancreatic CA, pulmonary fibrosis Current Diet TF - Glucerna 1.2 at 50ml/hr Labs/Tests Reviewed Pertinent Medications Reviewed Height 5 ft 2 in Weight 64.4 kg [place] Body Weight (kg) 50.00 BMI 25.9 Weight Status Appropriate Subjective/Other Information Pt tolerating Glucerna 1.2 at goal rate. She remains on BiPap support. Referral made to [facility] hospice. Percent of energy/protein needs met: 100% energy and pro Burn Absent Trauma Absent #2 Nutrition Diagnosis Malnutrition Diagnosis Progress(for reassessment Continues documentation) Is patient on ventilator? No Is Patient Ambulatory and/or Out of Bed No REE-([place] Jeor-confined to bed) [phone] Calculation Used for Recommendations [facility] Additional Notes Pro needs 1-1.2g/k-77g/ day Fluid needs 1ml/kcal Nutrition Intervention Nutrition Support: Continue Glucerna 1.2 at 50ml/ hr with 80ml water flush q4h. Kcal 1,440 Protein (gm) 72 Carbohydrates (gm) 137 Fat (gm) 72 Fluid (mL) 966 Fiber (gm) 19 Goal #1 TF tolerance Goal #2 TF to meet at least 75% energy and pro needs Follow-Up By: 06/08/21 Additional Comments F/U: stable TF, resp status, wt
--- NOTE | 2021-06-03 14:34 | Progress Note ---
Assessment and Plan Septic shock possible hepatobiliary source Lactic acidosis h/o pulmonary fibrosis, Acute on chronic respiratory failure on home O2 of 2 L nasal cannula Transaminitis, biliary dilation, r/o cholangitis Hyperchloremia, metabolic acidosis, hypokalemia Hypoglycemia h/o pancreatic head cancer- chemoradiation therapy h/o Hypertension (Care plan discussed at length with her son & daughter with charge nurse and [employer] listening; all their questions were answered) - continue gentle diuresis (negative fluid balance last 24 hours) - continue daily SAT and SBT assessment as tolerated - sedation prn for target RASS 0 to -1 - VAP bundle addressed - continue lung protective strategies - continue bronchodilators with pulmonary hygiene per RT - wean per pulmonary driven protocols otherwise - wean vasopressors for target MAP > 65 mmHg - MRCP pending as she remains tenuous from a respiratory standpoint - continue anti-infective's; de-escalate per ID recommendations - accuchecks with glycemic control per SSI (While critically ill target blood glucose of 140-180 mg/dL; avoid hypoglycemia) - wean supplemental oxygen for target O2 sat's > 90% acutely - aspiration precautions - avoid nephrotoxins, renally dose all medications - prn analgesia per pain score - Maintenance of sleep-wake cycle, avoid delirium - G.I. & VTE prophylaxis - PT/OT/ROM exercises - mobility protocols for pressure ulcer prophylaxis - Monitor hemodynamics closely - continue other care per attending / other consultants - discharge planning ongoing concurrently COVID SPECIFIC INTERVENTIONS - Remdesivir as per ID/Pulmonary developed protocols (ordered) - continue systemic steroids for severe COVID-19 infection empirically (on Decadron) - follow repeat COVID tests results - zinc and vitamin C supplementation (ordered) - Monitor inflammatory markers per facility protocol - ferritin, Ddimer, CRP - therapeutic anticoagulation per system Protocol based on d-dimer and clinical considerations - Contact and airborne isolation .... Re-evaluate in am & prn CONDITION: CRITICAL PROGNOSIS: GUARDED CODE STATUS: FULL CODE The high probability of a clinically significant, sudden or life-threatening deterioration of the [respiratory, cardiovascular, GI & neurologic] system(s) required my full and direct attention, intervention and personal management. The aggregate critical care time was [37] minutes without overlap. Time includes spent on; [x] Data Review and interpretation [x] Patient assessment and monitoring of vital signs [x] Documentation [x] Medication orders and management Subjective Date of service: 06/03/21 Principal diagnosis: Septic shock; Pulm fibrosis; Hypoxemic resp failure; COVID- 19 infxn Interval history: Patient is seen today for: Septic shock; pulmonary fibrosis; Acute on chronic hypoxemic respiratory failure; Transaminitis; h/o pancreatic head cancer; HTN Seen and examined at bedside; 24hour events reviewed; nursing and respiratory care staff consulted; no adverse overnight events reported to me; resting in bed; resting peacefully in bed; sedated; remains on MVS with FiO2 at 85% but some room to wean; work of breathing increased during SAT and she is back sedated; no N/V/F/C Objective Vital Signs - 12hr 06/03/21 06/03/21 06/03/21 02:30 02:45 03:00 Temperature Pulse Rate 104 H 106 H 105 H Pulse Rate [ From Monitor] Respiratory 16 16 20 Rate Blood Pressure 104/63 101/68 93/64 O2 Sat by Pulse 98 98 100 Oximetry 06/03/21 06/03/21 06/03/21 03:15 03:30 03:37 Temperature Pulse Rate 106 H 107 H Pulse Rate [ 105 H From Monitor] Respiratory 19 19 23 Rate Blood Pressure 112/63 107/58 O2 Sat by Pulse 99 99 95 Oximetry 06/03/21 06/03/21 06/03/21 03:45 03:48 04:00 Temperature 98.8 F Pulse Rate 106 H 107 H 105 H Pulse Rate [ From Monitor] Respiratory 14 18 Rate Blood Pressure 111/59 108/64 O2 Sat by Pulse 95 97 Oximetry 06/03/21 06/03/21 06/03/21 04:15 04:28 04:30 Temperature Pulse Rate 106 H 111 H 112 H Pulse Rate [ From Monitor] Respiratory 14 17 Rate Blood Pressure 95/60 104/72 104/72 O2 Sat by Pulse 97 95 96 Oximetry 06/03/21 06/03/21 06/03/21 04:45 05:00 05:15 Temperature Pulse Rate 111 H 114 H 109 H Pulse Rate [ From Monitor] Respiratory 24 25 H 16 Rate Blood Pressure 111/75 96/68 90/60 O2 Sat by Pulse 94 93 99 Oximetry 06/03/21 06/03/21 06/03/21 05:30 05:45 06:00 Temperature Pulse Rate 106 H 107 H 108 H Pulse Rate [ From Monitor] Respiratory 17 28 H 25 H Rate Blood Pressure 91/61 101/68 102/61 O2 Sat by Pulse 98 97 99 Oximetry 06/03/21 06/03/21 06/03/21 06:15 06:30 06:45 Temperature Pulse Rate 108 H 108 H 108 H Pulse Rate [ From Monitor] Respiratory 27 H 26 H 30 H Rate Blood Pressure 99/69 100/63 91/63 O2 Sat by Pulse 99 99 Oximetry 06/03/21 06/03/21 06/03/21 07:00 07:15 07:30 Temperature Pulse Rate 108 H 108 H 114 H Pulse Rate [ From Monitor] Respiratory 28 H 28 H 31 H Rate Blood Pressure 101/65 92/65 112/76 O2 Sat by Pulse 98 99 95 Oximetry 06/03/21 06/03/21 06/03/21 07:45 08:00 08:15 Temperature 97.9 F Pulse Rate 116 H 117 H 117 H Pulse Rate [ From Monitor] Respiratory 34 H 34 H 36 H Rate Blood Pressure 121/76 118/79 113/76 O2 Sat by Pulse 93 97 95 Oximetry 06/03/21 06/03/21 06/03/21 08:30 08:45 09:00 Temperature Pulse Rate 115 H 119 H 120 H Pulse Rate [ From Monitor] Respiratory 33 H 39 H 40 H Rate Blood Pressure 112/69 118/75 118/75 O2 Sat by Pulse 95 83 L 95 Oximetry 06/03/21 06/03/21 06/03/21 09:15 09:30 09:45 Temperature Pulse Rate 117 H 116 H 117 H Pulse Rate [ From Monitor] Respiratory 34 H 30 H 38 H Rate Blood Pressure 114/76 107/71 117/77 O2 Sat by Pulse 96 97 95 Oximetry 06/03/21 06/03/21 06/03/21 10:00 10:15 10:30 Temperature Pulse Rate 115 H 113 H 113 H Pulse Rate [ From Monitor] Respiratory 31 H 27 H 25 H Rate Blood Pressure 114/75 116/68 107/70 O2 Sat by Pulse 95 97 97 Oximetry 06/03/21 06/03/21 06/03/21 10:45 11:00 11:15 Temperature Pulse Rate 110 H 112 H 112 H Pulse Rate [ From Monitor] Respiratory 24 23 22 Rate Blood Pressure 112/66 120/72 96/71 O2 Sat by Pulse 97 98 95 Oximetry 0106/03/21 06/03/21 11:30 11:45 11:58 Temperature Pulse Rate 112 H 112 H 112 H Pulse Rate [ From Monitor] Respiratory 19 20 Rate Blood Pressure 104/71 99/69 100/66 O2 Sat by Pulse 97 99 100 Oximetry 06/03/21 12:00 Temperature 99.0 F Pulse Rate 114 H Pulse Rate [ From Monitor] Respiratory 17 Rate Blood Pressure 100/66 O2 Sat by Pulse 98 Oximetry Constitutional: no acute distress, asleep, other (mildly increased respiratory effort at rest on MVS) Eyes: non-icteric ENT: oropharynx moist, other (ETT 24 cm JOSH) Neck: supple, no lymphadenopathy, no JVD Effort: mildly labored Ascultation: Bilateral: diminished breath sounds, rales (inspiratory) Percussion: Bilateral: not dull Cardiovascular: regular rate and rhythm, other (S1,S2) Gastrointestinal: normoactive bowel sounds, hypoactive bowel sounds, soft, non- distended (protuberant) Integumentary: normal Extremities: no cyanosis, pulses normal, edema (+ peripheral edema), other (right femoral CVL) Neurologic: normal mental status, non-focal exam (grossly), pupils equal and round, other (sedated) Psychiatric: other (unable to assess re: AMS) CBC and BMP: 06/03/21 04:45 06/03/21 04:45 ABG, PT/INR, D-dimer: ABG ABG pH 7.312 pH Units (7.350-7.450) L 06/03/21 10:00 POC ABG pCO2 67.7 mmHg (32.0-48.0) H 06/02/21 05:36 ABG pCO2 50.3 mm Hg 06/03/21 10:00 POC ABG pO2 189.6 mmHg (83-108) H 06/02/21 05:36 ABG pO2 68.5 mm Hg (80.0-90.0) L 06/03/21 10:00 POC ABG HCO3 29.1 06/02/21 05:36 ABG O2 Saturation 93.0 % (95.0-99.0) L 06/03/21 10:00 PT/INR, D-dimer PT 16.9 Sec. (12.2-14.9) H 05/23/21 10:15 INR 1.24 (0.87-1.13) H 05/23/21 10:15 Abnormal lab findings: Abnormal Labs 05/11/21 05/11/21 05/11/21 05:43 05:43 05:43 WBC RBC Hgb MCV 98 H RDW 17.7 H Plt Count Lymph % (Auto) 10.8 L Eos % (Auto) Lymph # (Auto) 0.6 L Eos # (Auto) Seg Neutrophils % 84.1 H Seg Neuts % (Manual) Lymphocytes % (Manual) Seg Neutrophils # Man Lymphocytes # (Manual) PT 16.0 H INR 1.16 H ABG pH POC ABG pCO2 POC ABG pO2 ABG pO2 ABG HCO3 ABG O2 Saturation ABG Base Excess ABG Hemoglobin ABG Oxyhemoglobin ABG Sodium ABG Potassium ABG Chloride ABG Glucose Oxyhemoglobin Carboxyhemoglobin Sodium Potassium Chloride Carbon Dioxide 21 L BUN 4 L Creatinine 0.4 L Glucose POC Glucose Lactic Acid Calcium 8.3 L Phosphorus Magnesium Total Bilirubin 2.10 H Direct Bilirubin 1.4 H AST 335 H ALT 57 H Alkaline Phosphatase 339 H NT-Pro-B Natriuret Pep Total Protein Albumin 2.4 L Lipase 3 L Arterial Blood Glucose Ur Specific D Lo Vancomycin Trough Coronavirus (PCR) 05/11/21 05/11/21 05/12/21 11:18 12:28 04:08 WBC RBC Hgb MCV RDW Plt Count Lymph % (Auto) Eos % (Auto) Lymph # (Auto) Eos # (Auto) Seg Neutrophils % Seg Neuts % (Manual) Lymphocytes % (Manual) Seg Neutrophils # Man Lymphocytes # (Manual) PT INR ABG pH POC ABG pCO2 POC ABG pO2 ABG pO2 ABG HCO3 ABG O2 Saturation ABG Base Excess ABG Hemoglobin ABG Oxyhemoglobin ABG Sodium ABG Potassium ABG Chloride ABG Glucose Oxyhemoglobin Carboxyhemoglobin Sodium Potassium Chloride Carbon Dioxide BUN Creatinine Glucose POC Glucose Lactic Acid 4.20 H* 4.50 H* Calcium Phosphorus Magnesium Total Bilirubin Direct Bilirubin AST ALT Alkaline Phosphatase NT-Pro-B Natriuret Pep Total Protein Albumin Lipase Arterial Blood Glucose Ur Specific D Lo 1.035 H Vancomycin Trough Coronavirus (PCR) 05/12/21 05/12/21 05/12/21 04:08 04:08 09:47 WBC 22.8 H RBC 3.39 L Hgb MCV 98 H RDW 17.7 H Plt Count Lymph % (Auto) Eos % (Auto) Lymph # (Auto) Eos # (Auto) Seg Neutrophils % Seg Neuts % (Manual) 85.5 H Lymphocytes % (Manual) 2.0 L Seg Neutrophils # Man 19.5 H Lymphocytes # (Manual) 0.5 L PT INR ABG pH POC ABG pCO2 POC ABG pO2 ABG pO2 ABG HCO3 ABG O2 Saturation ABG Base Excess ABG Hemoglobin ABG Oxyhemoglobin ABG Sodium ABG Potassium ABG Chloride ABG Glucose Oxyhemoglobin Carboxyhemoglobin Sodium Potassium 3.3 L Chloride 108.9 H Carbon Dioxide 17 L BUN 4 L Creatinine 0.5 L Glucose 106 H POC Glucose Lactic Acid 2.60 H* Calcium 6.4 L D Phosphorus Magnesium Total Bilirubin 2.10 H Direct Bilirubin AST 156 H ALT 61 H Alkaline Phosphatase 317 H NT-Pro-B Natriuret Pep Total Protein 5.4 L D Albumin 1.8 L Lipase Arterial Blood Glucose Ur Specific D Lo Vancomycin Trough Coronavirus (PCR) 05/12/21 05/12/21 05/12/21 11:47 12:30 12:36 WBC RBC Hgb MCV RDW Plt Count Lymph % (Auto) Eos % (Auto) Lymph # (Auto) Eos # (Auto) Seg Neutrophils % Seg Neuts % (Manual) Lymphocytes % (Manual) Seg Neutrophils # Man Lymphocytes # (Manual) PT INR ABG pH POC ABG pCO2 POC ABG pO2 ABG pO2 ABG HCO3 ABG O2 Saturation ABG Base Excess ABG Hemoglobin ABG Oxyhemoglobin ABG Sodium ABG Potassium ABG Chloride ABG Glucose Oxyhemoglobin Carboxyhemoglobin Sodium Potassium Chloride Carbon Dioxide BUN Creatinine Glucose POC Glucose 59 L 120 H Lactic Acid 2.50 H* Calcium Phosphorus Magnesium Total Bilirubin Direct Bilirubin AST ALT Alkaline Phosphatase NT-Pro-B Natriuret Pep Total Protein Albumin Lipase Arterial Blood Glucose Ur Specific D Lo Vancomycin Trough Coronavirus (PCR) 05/12/21 05/12/21 05/13/21 23:45 Unknown 04:00 WBC 19.8 H RBC 3.52 L Hgb MCV 98 H RDW 18.5 H Plt Count Lymph % (Auto) Eos % (Auto) Lymph # (Auto) Eos # (Auto) Seg Neutrophils % Seg Neuts % (Manual) Lymphocytes % (Manual) Seg Neutrophils # Man Lymphocytes # (Manual) PT INR ABG pH POC ABG pCO2 POC ABG pO2 ABG pO2 ABG HCO3 ABG O2 Saturation ABG Base Excess ABG Hemoglobin ABG Oxyhemoglobin ABG Sodium ABG Potassium ABG Chloride ABG Glucose Oxyhemoglobin Carboxyhemoglobin Sodium Potassium Chloride Carbon Dioxide BUN Creatinine Glucose POC Glucose 119 H Lactic Acid 3.30 H* Calcium Phosphorus Magnesium Total Bilirubin Direct Bilirubin AST ALT Alkaline Phosphatase NT-Pro-B Natriuret Pep Total Protein Albumin Lipase Arterial Blood Glucose Ur Specific D Lo Vancomycin Trough Coronavirus (PCR) 05/13/21 05/13/21 05/13/21 04:00 05:42 12:19 WBC RBC Hgb MCV RDW Plt Count Lymph % (Auto) Eos % (Auto) Lymph # (Auto) Eos # (Auto) Seg Neutrophils % Seg Neuts % (Manual) Lymphocytes % (Manual) Seg Neutrophils # Man Lymphocytes # (Manual) PT INR ABG pH POC ABG pCO2 POC ABG pO2 ABG pO2 ABG HCO3 ABG O2 Saturation ABG Base Excess ABG Hemoglobin ABG Oxyhemoglobin ABG Sodium ABG Potassium ABG Chloride ABG Glucose Oxyhemoglobin Carboxyhemoglobin Sodium Potassium 3.4 L Chloride 107.1 H Carbon Dioxide 19 L BUN 4 L Creatinine 0.4 L Glucose 157 H POC Glucose 143 H 110 H Lactic Acid Calcium 7.4 L D Phosphorus 1.60 L Magnesium 1.50 L Total Bilirubin 1.40 H Direct Bilirubin AST 95 H ALT Alkaline Phosphatase 328 H NT-Pro-B Natriuret Pep Total Protein 5.5 L Albumin 1.6 L Lipase Arterial Blood Glucose Ur Specific D Lo Vancomycin Trough Coronavirus (PCR) 05/14/21 05/14/21 05/14/21 06:15 06:15 10:25 WBC 11.7 H RBC 3.41 L Hgb MCV 98 H RDW 18.6 H Plt Count Lymph % (Auto) Eos % (Auto) Lymph # (Auto) Eos # (Auto) Seg Neutrophils % Seg Neuts % (Manual) Lymphocytes % (Manual) Seg Neutrophils # Man Lymphocytes # (Manual) PT INR ABG pH POC ABG pCO2 POC ABG pO2 ABG pO2 76.0 L ABG HCO3 27.2 H ABG O2 Saturation ABG Base Excess ABG Hemoglobin 11.5 L ABG Oxyhemoglobin ABG Sodium ABG Potassium ABG Chloride ABG Glucose Oxyhemoglobin 94.4 L Carboxyhemoglobin Sodium Potassium 3.2 L Chloride Carbon Dioxide BUN 6 L Creatinine 0.5 L Glucose 103 H POC Glucose Lactic Acid Calcium 7.3 L Phosphorus 1.70 L Magnesium Total Bilirubin Direct Bilirubin AST 66 H ALT Alkaline Phosphatase 295 H NT-Pro-B Natriuret Pep Total Protein 5.3 L Albumin 1.8 L Lipase Arterial Blood Glucose Ur Specific D Lo Vancomycin Trough Coronavirus (PCR) 05/14/21 05/14/21 05/14/21 15:20 15:20 17:26 WBC RBC Hgb MCV RDW Plt Count Lymph % (Auto) Eos % (Auto) Lymph # (Auto) Eos # (Auto) Seg Neutrophils % Seg Neuts % (Manual) Lymphocytes % (Manual) Seg Neutrophils # Man Lymphocytes # (Manual) PT INR ABG pH POC ABG pCO2 POC ABG pO2 ABG pO2 ABG HCO3 ABG O2 Saturation ABG Base Excess ABG Hemoglobin ABG Oxyhemoglobin ABG Sodium ABG Potassium ABG Chloride ABG Glucose Oxyhemoglobin Carboxyhemoglobin Sodium 146 H D Potassium Chloride 108.4 H Carbon Dioxide BUN 5 L Creatinine 0.5 L Glucose POC Glucose 63 L Lactic Acid Calcium 7.6 L Phosphorus Magnesium Total Bilirubin Direct Bilirubin AST ALT Alkaline Phosphatase NT-Pro-B Natriuret Pep Total Protein Albumin Lipase Arterial Blood Glucose Ur Specific D Lo Vancomycin Trough 25.3 H Coronavirus (PCR) 05/14/21 05/15/21 05/15/21 21:27 00:03 00:29 WBC RBC Hgb MCV RDW Plt Count Lymph % (Auto) Eos % (Auto) Lymph # (Auto) Eos # (Auto) Seg Neutrophils % Seg Neuts % (Manual) Lymphocytes % (Manual) Seg Neutrophils # Man Lymphocytes # (Manual) PT INR ABG pH POC ABG pCO2 POC ABG pO2 ABG pO2 ABG HCO3 ABG O2 Saturation ABG Base Excess ABG Hemoglobin ABG Oxyhemoglobin ABG Sodium ABG Potassium ABG Chloride ABG Glucose Oxyhemoglobin Carboxyhemoglobin Sodium Potassium Chloride Carbon Dioxide BUN Creatinine Glucose POC Glucose 52 L 54 L 129 H Lactic Acid Calcium Phosphorus Magnesium Total Bilirubin Direct Bilirubin AST ALT Alkaline Phosphatase NT-Pro-B Natriuret Pep Total Protein Albumin Lipase Arterial Blood Glucose Ur Specific D Lo Vancomycin Trough Coronavirus (PCR) 05/15/21 05/15/21 05/15/21 04:45 04:45 11:58 WBC RBC 3.24 L Hgb MCV 98 H RDW 18.5 H Plt Count 122 L Lymph % (Auto) 7.4 L Eos % (Auto) Lymph # (Auto) 0.6 L Eos # (Auto) Seg Neutrophils % 81.2 H Seg Neuts % (Manual) Lymphocytes % (Manual) Seg Neutrophils # Man Lymphocytes # (Manual) PT INR ABG pH POC ABG pCO2 POC ABG pO2 ABG pO2 ABG HCO3 ABG O2 Saturation ABG Base Excess ABG Hemoglobin ABG Oxyhemoglobin ABG Sodium ABG Potassium ABG Chloride ABG Glucose Oxyhemoglobin Carboxyhemoglobin Sodium 146 H Potassium 3.1 L Chloride 108.8 H Carbon Dioxide BUN 6 L Creatinine Glucose 121 H POC Glucose 68 L Lactic Acid Calcium 7.5 L Phosphorus 2.30 L D Magnesium Total Bilirubin 1.90 H Direct Bilirubin AST 55 H ALT Alkaline Phosphatase 231 H NT-Pro-B Natriuret Pep Total Protein 5.4 L Albumin 1.5 L Lipase Arterial Blood Glucose Ur Specific D Lo Vancomycin Trough Coronavirus (PCR) 05/15/21 05/16/21 05/16/21 13:50 00:06 00:43 WBC RBC Hgb MCV RDW Plt Count Lymph % (Auto) Eos % (Auto) Lymph # (Auto) Eos # (Auto) Seg Neutrophils % Seg Neuts % (Manual) Lymphocytes % (Manual) Seg Neutrophils # Man Lymphocytes # (Manual) PT INR ABG pH POC ABG pCO2 POC ABG pO2 ABG pO2 ABG HCO3 ABG O2 Saturation ABG Base Excess ABG Hemoglobin ABG Oxyhemoglobin ABG Sodium ABG Potassium ABG Chloride ABG Glucose Oxyhemoglobin Carboxyhemoglobin Sodium Potassium Chloride Carbon Dioxide BUN Creatinine Glucose POC Glucose 147 H 54 L 116 H Lactic Acid Calcium Phosphorus Magnesium Total Bilirubin Direct Bilirubin AST ALT Alkaline Phosphatase NT-Pro-B Natriuret Pep Total Protein Albumin Lipase Arterial Blood Glucose Ur Specific D Lo Vancomycin Trough Coronavirus (PCR) 05/16/21 05/16/21 05/16/21 04:31 04:31 05:58 WBC RBC 3.12 L Hgb 9.8 L MCV 98 H RDW 18.2 H Plt Count 115 L Lymph % (Auto) Eos % (Auto) Lymph # (Auto) Eos # (Auto) Seg Neutrophils % Seg Neuts % (Manual) Lymphocytes % (Manual) Seg Neutrophils # Man Lymphocytes # (Manual) PT INR ABG pH POC ABG pCO2 POC ABG pO2 ABG pO2 ABG HCO3 ABG O2 Saturation ABG Base Excess ABG Hemoglobin ABG Oxyhemoglobin ABG Sodium ABG Potassium ABG Chloride ABG Glucose Oxyhemoglobin Carboxyhemoglobin Sodium 146 H Potassium 3.2 L Chloride Carbon Dioxide BUN 5 L Creatinine 0.5 L Glucose POC Glucose 61 L Lactic Acid Calcium 7.2 L Phosphorus 2.30 L Magnesium Total Bilirubin Direct Bilirubin AST ALT Alkaline Phosphatase NT-Pro-B Natriuret Pep Total Protein Albumin Lipase Arterial Blood Glucose Ur Specific D Lo Vancomycin Trough Coronavirus (PCR) 05/16/21 05/16/21 05/17/21 08:11 23:42 04:15 WBC RBC Hgb MCV RDW Plt Count Lymph % (Auto) Eos % (Auto) Lymph # (Auto) Eos # (Auto) Seg Neutrophils % Seg Neuts % (Manual) Lymphocytes % (Manual) Seg Neutrophils # Man Lymphocytes # (Manual) PT INR ABG pH POC ABG pCO2 POC ABG pO2 ABG pO2 ABG HCO3 ABG O2 Saturation ABG Base Excess ABG Hemoglobin ABG Oxyhemoglobin ABG Sodium ABG Potassium ABG Chloride ABG Glucose Oxyhemoglobin Carboxyhemoglobin Sodium Potassium Chloride Carbon Dioxide BUN Creatinine Glucose POC Glucose 58 L 200 H Lactic Acid Calcium Phosphorus Magnesium Total Bilirubin 1.70 H Direct Bilirubin 1.5 H AST 43 H ALT Alkaline Phosphatase 196 H NT-Pro-B Natriuret Pep Total Protein 5.4 L Albumin 1.6 L Lipase Arterial Blood Glucose Ur Specific D Lo Vancomycin Trough Coronavirus (PCR) 05/17/21 05/17/21 05/17/21 04:15 04:15 05:07 WBC RBC 3.26 L Hgb MCV 98 H RDW 18.9 H Plt Count 114 L Lymph % (Auto) Eos % (Auto) Lymph # (Auto) Eos # (Auto) Seg Neutrophils % Seg Neuts % (Manual) Lymphocytes % (Manual) Seg Neutrophils # Man Lymphocytes # (Manual) PT INR ABG pH POC ABG pCO2 POC ABG pO2 ABG pO2 ABG HCO3 ABG O2 Saturation ABG Base Excess ABG Hemoglobin ABG Oxyhemoglobin ABG Sodium ABG Potassium ABG Chloride ABG Glucose Oxyhemoglobin Carboxyhemoglobin Sodium Potassium Chloride Carbon Dioxide 35 H BUN 5 L Creatinine Glucose 274 H POC Glucose 249 H Lactic Acid Calcium 7.7 L Phosphorus 1.50 L D Magnesium Total Bilirubin Direct Bilirubin AST ALT Alkaline Phosphatase NT-Pro-B Natriuret Pep Total Protein Albumin Lipase Arterial Blood Glucose Ur Specific D Lo Vancomycin Trough Coronavirus (PCR) 05/17/21 05/17/21 05/17/21 11:56 16:29 23:37 WBC RBC Hgb MCV RDW Plt Count Lymph % (Auto) Eos % (Auto) Lymph # (Auto) Eos # (Auto) Seg Neutrophils % Seg Neuts % (Manual) Lymphocytes % (Manual) Seg Neutrophils # Man Lymphocytes # (Manual) PT INR ABG pH POC ABG pCO2 POC ABG pO2 ABG pO2 ABG HCO3 ABG O2 Saturation ABG Base Excess ABG Hemoglobin ABG Oxyhemoglobin ABG Sodium ABG Potassium ABG Chloride ABG Glucose Oxyhemoglobin Carboxyhemoglobin Sodium Potassium Chloride Carbon Dioxide BUN Creatinine Glucose POC Glucose 176 H 219 H 150 H Lactic Acid Calcium Phosphorus Magnesium Total Bilirubin Direct Bilirubin AST ALT Alkaline Phosphatase NT-Pro-B Natriuret Pep Total Protein Albumin Lipase Arterial Blood Glucose Ur Specific D Lo Vancomycin Trough Coronavirus (PCR) 05/18/21 05/18/21 05/18/21 04:00 05:22 09:00 WBC RBC 3.34 L Hgb MCV RDW 18.8 H Plt Count Lymph % (Auto) Eos % (Auto) Lymph # (Auto) Eos # (Auto) Seg Neutrophils % Seg Neuts % (Manual) Lymphocytes % (Manual) Seg Neutrophils # Man Lymphocytes # (Manual) PT INR ABG pH POC ABG pCO2 POC ABG pO2 ABG pO2 ABG HCO3 ABG O2 Saturation ABG Base Excess ABG Hemoglobin ABG Oxyhemoglobin ABG Sodium ABG Potassium ABG Chloride ABG Glucose Oxyhemoglobin Carboxyhemoglobin Sodium Potassium 5.4 H D Chloride 97.5 L Carbon Dioxide 33 H BUN Creatinine 0.4 L Glucose 461 H POC Glucose 181 H Lactic Acid Calcium 7.2 L Phosphorus 5.00 H D Magnesium Total Bilirubin Direct Bilirubin AST ALT Alkaline Phosphatase NT-Pro-B Natriuret Pep Total Protein Albumin Lipase Arterial Blood Glucose Ur Specific D Lo Vancomycin Trough Coronavirus (PCR) 05/18/21 05/18/21 05/18/21 11:16 12:50 16:29 WBC RBC Hgb MCV RDW Plt Count Lymph % (Auto) Eos % (Auto) Lymph # (Auto) Eos # (Auto) Seg Neutrophils % Seg Neuts % (Manual) Lymphocytes % (Manual) Seg Neutrophils # Man Lymphocytes # (Manual) PT INR ABG pH POC ABG pCO2 POC ABG pO2 ABG pO2 ABG HCO3 ABG O2 Saturation ABG Base Excess ABG Hemoglobin ABG Oxyhemoglobin ABG Sodium ABG Potassium ABG Chloride ABG Glucose Oxyhemoglobin Carboxyhemoglobin Sodium Potassium 3.4 L D Chloride Carbon Dioxide 36 H BUN 19 H Creatinine 0.4 L Glucose 231 H POC Glucose 168 H 196 H Lactic Acid Calcium 7.5 L Phosphorus 1.80 L D Magnesium Total Bilirubin Direct Bilirubin AST ALT Alkaline Phosphatase NT-Pro-B Natriuret Pep Total Protein Albumin Lipase Arterial Blood Glucose Ur Specific D Lo Vancomycin Trough Coronavirus (PCR) 05/19/21 05/19/21 05/19/21 00:05 04:08 05:07 WBC RBC Hgb MCV RDW Plt Count Lymph % (Auto) Eos % (Auto) Lymph # (Auto) Eos # (Auto) Seg Neutrophils % Seg Neuts % (Manual) Lymphocytes % (Manual) Seg Neutrophils # Man Lymphocytes # (Manual) PT INR ABG pH POC ABG pCO2 POC ABG pO2 ABG pO2 ABG HCO3 ABG O2 Saturation ABG Base Excess ABG Hemoglobin ABG Oxyhemoglobin ABG Sodium ABG Potassium ABG Chloride ABG Glucose Oxyhemoglobin Carboxyhemoglobin Sodium 146 H Potassium Chloride Carbon Dioxide 35 H BUN 25 H Creatinine 0.4 L Glucose 218 H POC Glucose 164 H 203 H Lactic Acid Calcium 7.2 L Phosphorus Magnesium Total Bilirubin Direct Bilirubin AST ALT Alkaline Phosphatase NT-Pro-B Natriuret Pep Total Protein Albumin Lipase Arterial Blood Glucose Ur Specific D Lo Vancomycin Trough Coronavirus (PCR) 05/19/21 05/19/21 05/19/21 12:16 14:14 17:11 WBC RBC Hgb MCV RDW Plt Count Lymph % (Auto) Eos % (Auto) Lymph # (Auto) Eos # (Auto) Seg Neutrophils % Seg Neuts % (Manual) Lymphocytes % (Manual) Seg Neutrophils # Man Lymphocytes # (Manual) PT INR ABG pH 7.482 H POC ABG pCO2 POC ABG pO2 ABG pO2 111.7 H ABG HCO3 31.4 H ABG O2 Saturation ABG Base Excess 7.2 H ABG Hemoglobin 11.1 L ABG Oxyhemoglobin ABG Sodium ABG Potassium ABG Chloride ABG Glucose Oxyhemoglobin Carboxyhemoglobin Sodium Potassium Chloride Carbon Dioxide BUN Creatinine Glucose POC Glucose 206 H 194 H Lactic Acid Calcium Phosphorus Magnesium Total Bilirubin Direct Bilirubin AST ALT Alkaline Phosphatase NT-Pro-B Natriuret Pep Total Protein Albumin Lipase Arterial Blood Glucose Ur Specific D Lo Vancomycin Trough Coronavirus (PCR) 05/20/21 05/20/21 05/20/21 00:01 04:30 06:09 WBC RBC Hgb MCV RDW Plt Count Lymph % (Auto) Eos % (Auto) Lymph # (Auto) Eos # (Auto) Seg Neutrophils % Seg Neuts % (Manual) Lymphocytes % (Manual) Seg Neutrophils # Man Lymphocytes # (Manual) PT INR ABG pH POC ABG pCO2 POC ABG pO2 ABG pO2 ABG HCO3 ABG O2 Saturation ABG Base Excess ABG Hemoglobin ABG Oxyhemoglobin ABG Sodium ABG Potassium ABG Chloride ABG Glucose Oxyhemoglobin Carboxyhemoglobin Sodium Potassium 3.5 L Chloride Carbon Dioxide BUN 24 H Creatinine 0.3 L Glucose 254 H POC Glucose 209 H 210 H Lactic Acid Calcium 7.5 L Phosphorus 1.90 L D Magnesium Total Bilirubin 1.60 H Direct Bilirubin AST 201 H ALT 170 H Alkaline Phosphatase 169 H NT-Pro-B Natriuret Pep Total Protein 5.3 L Albumin 1.9 L Lipase Arterial Blood Glucose Ur Specific D Lo Vancomycin Trough Coronavirus (PCR) 05/20/21 05/20/21 05/20/21 11:41 16:47 22:21 WBC RBC Hgb MCV RDW Plt Count Lymph % (Auto) Eos % (Auto) Lymph # (Auto) Eos # (Auto) Seg Neutrophils % Seg Neuts % (Manual) Lymphocytes % (Manual) Seg Neutrophils # Man Lymphocytes # (Manual) PT INR ABG pH POC ABG pCO2 POC ABG pO2 ABG pO2 ABG HCO3 ABG O2 Saturation ABG Base Excess ABG Hemoglobin ABG Oxyhemoglobin ABG Sodium ABG Potassium ABG Chloride ABG Glucose Oxyhemoglobin Carboxyhemoglobin Sodium Potassium Chloride Carbon Dioxide BUN Creatinine Glucose POC Glucose 158 H 232 H 211 H Lactic Acid Calcium Phosphorus Magnesium Total Bilirubin Direct Bilirubin AST ALT Alkaline Phosphatase NT-Pro-B Natriuret Pep Total Protein Albumin Lipase Arterial Blood Glucose Ur Specific D Lo Vancomycin Trough Coronavirus (PCR) 05/21/21 05/21/21 05/21/21 00:35 04:00 04:00 WBC RBC 3.28 L Hgb MCV RDW 18.7 H Plt Count 125 L Lymph % (Auto) Eos % (Auto) Lymph # (Auto) Eos # (Auto) Seg Neutrophils % Seg Neuts % (Manual) Lymphocytes % (Manual) Seg Neutrophils # Man Lymphocytes # (Manual) PT INR ABG pH POC ABG pCO2 POC ABG pO2 ABG pO2 ABG HCO3 ABG O2 Saturation ABG Base Excess ABG Hemoglobin ABG Oxyhemoglobin ABG Sodium ABG Potassium ABG Chloride ABG Glucose Oxyhemoglobin Carboxyhemoglobin Sodium Potassium 5.1 H D Chloride 108.7 H Carbon Dioxide BUN 21 H Creatinine 0.2 L Glucose 242 H POC Glucose 230 H Lactic Acid Calcium 7.3 L Phosphorus Magnesium Total Bilirubin Direct Bilirubin AST ALT Alkaline Phosphatase NT-Pro-B Natriuret Pep Total Protein Albumin Lipase Arterial Blood Glucose Ur Specific D Lo Vancomycin Trough Coronavirus (PCR) 05/21/21 05/21/21 05/21/21 05:08 11:47 17:43 WBC RBC Hgb MCV RDW Plt Count Lymph % (Auto) Eos % (Auto) Lymph # (Auto) Eos # (Auto) Seg Neutrophils % Seg Neuts % (Manual) Lymphocytes % (Manual) Seg Neutrophils # Man Lymphocytes # (Manual) PT INR ABG pH POC ABG pCO2 POC ABG pO2 ABG pO2 ABG HCO3 ABG O2 Saturation ABG Base Excess ABG Hemoglobin ABG Oxyhemoglobin ABG Sodium ABG Potassium ABG Chloride ABG Glucose Oxyhemoglobin Carboxyhemoglobin Sodium Potassium Chloride Carbon Dioxide BUN Creatinine Glucose POC Glucose 196 H 139 H 147 H Lactic Acid Calcium Phosphorus Magnesium Total Bilirubin Direct Bilirubin AST ALT Alkaline Phosphatase NT-Pro-B Natriuret Pep Total Protein Albumin Lipase Arterial Blood Glucose Ur Specific D Lo Vancomycin Trough Coronavirus (PCR) 05/21/21 05/21/21 05/22/21 17:57 23:32 04:16 WBC RBC Hgb MCV RDW Plt Count Lymph % (Auto) Eos % (Auto) Lymph # (Auto) Eos # (Auto) Seg Neutrophils % Seg Neuts % (Manual) Lymphocytes % (Manual) Seg Neutrophils # Man Lymphocytes # (Manual) PT INR ABG pH POC ABG pCO2 POC ABG pO2 ABG pO2 ABG HCO3 ABG O2 Saturation ABG Base Excess ABG Hemoglobin ABG Oxyhemoglobin ABG Sodium ABG Potassium ABG Chloride ABG Glucose Oxyhemoglobin Carboxyhemoglobin Sodium Potassium 5.2 H Chloride Carbon Dioxide BUN 19 H Creatinine 0.2 L Glucose 154 H POC Glucose 218 H 185 H Lactic Acid Calcium 7.5 L Phosphorus Magnesium Total Bilirubin 3.00 H Direct Bilirubin 2.3 H AST 437 H ALT 462 H Alkaline Phosphatase 186 H NT-Pro-B Natriuret Pep Total Protein 5.5 L Albumin 1.9 L Lipase Arterial Blood Glucose Ur Specific D Lo Vancomycin Trough Coronavirus (PCR) 05/22/21 05/22/21 05/22/21 04:30 04:30 04:30 WBC RBC Hgb MCV RDW Plt Count Lymph % (Auto) Eos % (Auto) Lymph # (Auto) Eos # (Auto) Seg Neutrophils % Seg Neuts % (Manual) Lymphocytes % (Manual) Seg Neutrophils # Man Lymphocytes # (Manual) PT 19.5 H INR 1.49 H ABG pH POC ABG pCO2 POC ABG pO2 ABG pO2 ABG HCO3 ABG O2 Saturation ABG Base Excess ABG Hemoglobin ABG Oxyhemoglobin ABG Sodium ABG Potassium ABG Chloride ABG Glucose Oxyhemoglobin Carboxyhemoglobin Sodium 134 L Potassium Chloride Carbon Dioxide BUN 19 H Creatinine 0.2 L Glucose 208 H POC Glucose Lactic Acid Calcium 7.2 L Phosphorus 2.40 L D Magnesium Total Bilirubin 2.20 H Direct Bilirubin AST 350 H ALT 496 H Alkaline Phosphatase 167 H NT-Pro-B Natriuret Pep Total Protein 4.8 L Albumin 1.7 L Lipase Arterial Blood Glucose Ur Specific D Lo Vancomycin Trough Coronavirus (PCR) 05/22/21 05/22/21 05/22/21 11:59 17:16 23:07 WBC RBC Hgb MCV RDW Plt Count Lymph % (Auto) Eos % (Auto) Lymph # (Auto) Eos # (Auto) Seg Neutrophils % Seg Neuts % (Manual) Lymphocytes % (Manual) Seg Neutrophils # Man Lymphocytes # (Manual) PT INR ABG pH POC ABG pCO2 POC ABG pO2 ABG pO2 ABG HCO3 ABG O2 Saturation ABG Base Excess ABG Hemoglobin ABG Oxyhemoglobin ABG Sodium ABG Potassium ABG Chloride ABG Glucose Oxyhemoglobin Carboxyhemoglobin Sodium Potassium Chloride Carbon Dioxide BUN Creatinine Glucose POC Glucose 204 H 244 H 226 H Lactic Acid Calcium Phosphorus Magnesium Total Bilirubin Direct Bilirubin AST ALT Alkaline Phosphatase NT-Pro-B Natriuret Pep Total Protein Albumin Lipase Arterial Blood Glucose Ur Specific D Lo Vancomycin Trough Coronavirus (PCR) 05/23/21 05/23/21 05/23/21 05:09 10:15 10:15 WBC RBC Hgb MCV RDW Plt Count Lymph % (Auto) Eos % (Auto) Lymph # (Auto) Eos # (Auto) Seg Neutrophils % Seg Neuts % (Manual) Lymphocytes % (Manual) Seg Neutrophils # Man Lymphocytes # (Manual) PT 16.9 H INR 1.24 H ABG pH POC ABG pCO2 POC ABG pO2 ABG pO2 ABG HCO3 ABG O2 Saturation ABG Base Excess ABG Hemoglobin ABG Oxyhemoglobin ABG Sodium ABG Potassium ABG Chloride ABG Glucose Oxyhemoglobin Carboxyhemoglobin Sodium 131 L Potassium Chloride 97.5 L Carbon Dioxide BUN Creatinine < 0.2 L Glucose 248 H POC Glucose 175 H Lactic Acid Calcium 7.4 L Phosphorus Magnesium 1.60 L Total Bilirubin Direct Bilirubin AST ALT Alkaline Phosphatase NT-Pro-B Natriuret Pep Total Protein Albumin Lipase Arterial Blood Glucose Ur Specific D Lo Vancomycin Trough Coronavirus (PCR) 05/23/21 05/23/21 05/24/21 10:15 21:46 04:16 WBC RBC Hgb MCV RDW Plt Count Lymph % (Auto) Eos % (Auto) Lymph # (Auto) Eos # (Auto) Seg Neutrophils % Seg Neuts % (Manual) Lymphocytes % (Manual) Seg Neutrophils # Man Lymphocytes # (Manual) PT INR ABG pH POC ABG pCO2 POC ABG pO2 ABG pO2 ABG HCO3 ABG O2 Saturation ABG Base Excess ABG Hemoglobin ABG Oxyhemoglobin ABG Sodium ABG Potassium ABG Chloride ABG Glucose Oxyhemoglobin Carboxyhemoglobin Sodium 130 L Potassium 3.5 L Chloride 97.1 L Carbon Dioxide BUN Creatinine 0.2 L Glucose 235 H POC Glucose 190 H Lactic Acid Calcium 6.8 L Phosphorus Magnesium Total Bilirubin 2.30 H Direct Bilirubin 1.6 H AST 161 H ALT 396 H Alkaline Phosphatase 186 H NT-Pro-B Natriuret Pep Total Protein 4.7 L Albumin 2.0 L Lipase Arterial Blood Glucose Ur Specific D Lo Vancomycin Trough Coronavirus (PCR) 05/24/21 05/25/21 05/25/21 05:32 04:25 04:25 WBC 11.7 H RBC 3.28 L Hgb MCV RDW 19.9 H Plt Count Lymph % (Auto) Eos % (Auto) Lymph # (Auto) Eos # (Auto) Seg Neutrophils % Seg Neuts % (Manual) Lymphocytes % (Manual) Seg Neutrophils # Man Lymphocytes # (Manual) PT INR ABG pH POC ABG pCO2 POC ABG pO2 ABG pO2 ABG HCO3 ABG O2 Saturation ABG Base Excess ABG Hemoglobin ABG Oxyhemoglobin ABG Sodium ABG Potassium ABG Chloride ABG Glucose Oxyhemoglobin Carboxyhemoglobin Sodium 135 L Potassium 3.4 L Chloride Carbon Dioxide BUN Creatinine 0.2 L Glucose 105 H POC Glucose 208 H Lactic Acid Calcium 7.6 L Phosphorus Magnesium Total Bilirubin Direct Bilirubin AST ALT Alkaline Phosphatase NT-Pro-B Natriuret Pep Total Protein Albumin Lipase Arterial Blood Glucose Ur Specific D Lo Vancomycin Trough Coronavirus (PCR) 05/26/21 05/26/21 05/26/21 11:37 16:57 20:59 WBC RBC Hgb MCV RDW Plt Count Lymph % (Auto) Eos % (Auto) Lymph # (Auto) Eos # (Auto) Seg Neutrophils % Seg Neuts % (Manual) Lymphocytes % (Manual) Seg Neutrophils # Man Lymphocytes # (Manual) PT INR ABG pH POC ABG pCO2 POC ABG pO2 ABG pO2 ABG HCO3 ABG O2 Saturation ABG Base Excess ABG Hemoglobin ABG Oxyhemoglobin ABG Sodium ABG Potassium ABG Chloride ABG Glucose Oxyhemoglobin Carboxyhemoglobin Sodium Potassium Chloride Carbon Dioxide BUN Creatinine Glucose POC Glucose 136 H 214 H 137 H Lactic Acid Calcium Phosphorus Magnesium Total Bilirubin Direct Bilirubin AST ALT Alkaline Phosphatase NT-Pro-B Natriuret Pep Total Protein Albumin Lipase Arterial Blood Glucose Ur Specific D Lo Vancomycin Trough Coronavirus (PCR) 05/26/21 05/27/21 05/27/21 23:52 05:40 16:49 WBC RBC Hgb MCV RDW Plt Count Lymph % (Auto) Eos % (Auto) Lymph # (Auto) Eos # (Auto) Seg Neutrophils % Seg Neuts % (Manual) Lymphocytes % (Manual) Seg Neutrophils # Man Lymphocytes # (Manual) PT INR ABG pH POC ABG pCO2 POC ABG pO2 ABG pO2 ABG HCO3 ABG O2 Saturation ABG Base Excess ABG Hemoglobin ABG Oxyhemoglobin ABG Sodium ABG Potassium ABG Chloride ABG Glucose Oxyhemoglobin Carboxyhemoglobin Sodium Potassium Chloride Carbon Dioxide BUN Creatinine Glucose POC Glucose 111 H 144 H 213 H Lactic Acid Calcium Phosphorus Magnesium Total Bilirubin Direct Bilirubin AST ALT Alkaline Phosphatase NT-Pro-B Natriuret Pep Total Protein Albumin Lipase Arterial Blood Glucose Ur Specific D Lo Vancomycin Trough Coronavirus (PCR) 05/27/21 05/27/21 05/28/21 21:07 23:57 11:59 WBC RBC Hgb MCV RDW Plt Count Lymph % (Auto) Eos % (Auto) Lymph # (Auto) Eos # (Auto) Seg Neutrophils % Seg Neuts % (Manual) Lymphocytes % (Manual) Seg Neutrophils # Man Lymphocytes # (Manual) PT INR ABG pH POC ABG pCO2 POC ABG pO2 ABG pO2 ABG HCO3 ABG O2 Saturation ABG Base Excess ABG Hemoglobin ABG Oxyhemoglobin ABG Sodium ABG Potassium ABG Chloride ABG Glucose Oxyhemoglobin Carboxyhemoglobin Sodium Potassium Chloride Carbon Dioxide BUN Creatinine Glucose POC Glucose 135 H 157 H 130 H Lactic Acid Calcium Phosphorus Magnesium Total Bilirubin Direct Bilirubin AST ALT Alkaline Phosphatase NT-Pro-B Natriuret Pep Total Protein Albumin Lipase Arterial Blood Glucose Ur Specific D Lo Vancomycin Trough Coronavirus (PCR) 05/28/21 05/29/21 05/29/21 17:05 01:03 05:07 WBC RBC Hgb MCV RDW Plt Count Lymph % (Auto) Eos % (Auto) Lymph # (Auto) Eos # (Auto) Seg Neutrophils % Seg Neuts % (Manual) Lymphocytes % (Manual) Seg Neutrophils # Man Lymphocytes # (Manual) PT INR ABG pH POC ABG pCO2 POC ABG pO2 ABG pO2 ABG HCO3 ABG O2 Saturation ABG Base Excess ABG Hemoglobin ABG Oxyhemoglobin ABG Sodium ABG Potassium ABG Chloride ABG Glucose Oxyhemoglobin Carboxyhemoglobin Sodium 148 H D Potassium 3.0 L Chloride 108.0 H Carbon Dioxide BUN Creatinine 0.2 L Glucose 155 H POC Glucose 207 H 204 H Lactic Acid Calcium 7.7 L Phosphorus Magnesium Total Bilirubin Direct Bilirubin AST ALT Alkaline Phosphatase NT-Pro-B Natriuret Pep Total Protein Albumin Lipase Arterial Blood Glucose Ur Specific D Lo Vancomycin Trough Coronavirus (PCR) 05/29/21 05/29/21 05/29/21 08:20 11:30 17:53 WBC RBC Hgb MCV RDW Plt Count Lymph % (Auto) Eos % (Auto) Lymph # (Auto) Eos # (Auto) Seg Neutrophils % Seg Neuts % (Manual) Lymphocytes % (Manual) Seg Neutrophils # Man Lymphocytes # (Manual) PT INR ABG pH POC ABG pCO2 POC ABG pO2 ABG pO2 ABG HCO3 ABG O2 Saturation ABG Base Excess ABG Hemoglobin ABG Oxyhemoglobin ABG Sodium ABG Potassium ABG Chloride ABG Glucose Oxyhemoglobin Carboxyhemoglobin Sodium Potassium Chloride Carbon Dioxide BUN Creatinine Glucose POC Glucose 119 H 199 H Lactic Acid Calcium Phosphorus Magnesium Total Bilirubin Direct Bilirubin AST ALT Alkaline Phosphatase NT-Pro-B Natriuret Pep Total Protein Albumin Lipase Arterial Blood Glucose Ur Specific D Lo Vancomycin Trough Coronavirus (PCR) Positive A 05/30/21 05/30/21 05/30/21 00:37 05:54 06:50 WBC RBC Hgb MCV RDW Plt Count Lymph % (Auto) Eos % (Auto) Lymph # (Auto) Eos # (Auto) Seg Neutrophils % Seg Neuts % (Manual) Lymphocytes % (Manual) Seg Neutrophils # Man Lymphocytes # (Manual) PT INR ABG pH POC ABG pCO2 POC ABG pO2 ABG pO2 ABG HCO3 ABG O2 Saturation ABG Base Excess ABG Hemoglobin ABG Oxyhemoglobin ABG Sodium ABG Potassium ABG Chloride ABG Glucose Oxyhemoglobin Carboxyhemoglobin Sodium Potassium Chloride Carbon Dioxide BUN Creatinine Glucose POC Glucose 117 H 56 L 157 H Lactic Acid Calcium Phosphorus Magnesium Total Bilirubin Direct Bilirubin AST ALT Alkaline Phosphatase NT-Pro-B Natriuret Pep Total Protein Albumin Lipase Arterial Blood Glucose Ur Specific D Lo Vancomycin Trough Coronavirus (PCR) 05/30/21 05/30/21 05/31/21 17:18 23:54 05:27 WBC RBC Hgb MCV RDW Plt Count Lymph % (Auto) Eos % (Auto) Lymph # (Auto) Eos # (Auto) Seg Neutrophils % Seg Neuts % (Manual) Lymphocytes % (Manual) Seg Neutrophils # Man Lymphocytes # (Manual) PT INR ABG pH POC ABG pCO2 POC ABG pO2 ABG pO2 ABG HCO3 ABG O2 Saturation ABG Base Excess ABG Hemoglobin ABG Oxyhemoglobin ABG Sodium ABG Potassium ABG Chloride ABG Glucose Oxyhemoglobin Carboxyhemoglobin Sodium Potassium Chloride Carbon Dioxide BUN Creatinine Glucose POC Glucose 181 H 130 H 112 H Lactic Acid Calcium Phosphorus Magnesium Total Bilirubin Direct Bilirubin AST ALT Alkaline Phosphatase NT-Pro-B Natriuret Pep Total Protein Albumin Lipase Arterial Blood Glucose Ur Specific D Lo Vancomycin Trough Coronavirus (PCR) 05/31/21 05/31/21 05/31/21 12:06 17:35 23:56 WBC RBC Hgb MCV RDW Plt Count Lymph % (Auto) Eos % (Auto) Lymph # (Auto) Eos # (Auto) Seg Neutrophils % Seg Neuts % (Manual) Lymphocytes % (Manual) Seg Neutrophils # Man Lymphocytes # (Manual) PT INR ABG pH POC ABG pCO2 POC ABG pO2 ABG pO2 ABG HCO3 ABG O2 Saturation ABG Base Excess ABG Hemoglobin ABG Oxyhemoglobin ABG Sodium ABG Potassium ABG Chloride ABG Glucose Oxyhemoglobin Carboxyhemoglobin Sodium Potassium Chloride Carbon Dioxide BUN Creatinine Glucose POC Glucose 170 H 109 H 136 H Lactic Acid Calcium Phosphorus Magnesium Total Bilirubin Direct Bilirubin AST ALT Alkaline Phosphatase NT-Pro-B Natriuret Pep Total Protein Albumin Lipase Arterial Blood Glucose Ur Specific D Lo Vancomycin Trough Coronavirus (PCR) 06/02/21 06/02/21 06/02/21 04:28 05:36 08:59 WBC RBC 3.31 L Hgb MCV 100 H RDW 24.7 H Plt Count Lymph % (Auto) 12.8 L Eos % (Auto) 10.2 H Lymph # (Auto) 0.6 L Eos # (Auto) 0.5 H Seg Neutrophils % 75.5 H Seg Neuts % (Manual) Lymphocytes % (Manual) Seg Neutrophils # Man Lymphocytes # (Manual) PT INR ABG pH 7.258 L 7.251 L POC ABG pCO2 73.4 H 67.7 H POC ABG pO2 33.0 L 189.6 H ABG pO2 ABG HCO3 ABG O2 Saturation ABG Base Excess ABG Hemoglobin 11.8 L 11.8 L ABG Oxyhemoglobin 48.8 L ABG Sodium 146.7 H 146.3 H ABG Potassium 3.1 L ABG Chloride 109.0 H ABG Glucose 64 L Oxyhemoglobin Carboxyhemoglobin 1.6 H Sodium Potassium Chloride Carbon Dioxide BUN Creatinine Glucose POC Glucose Lactic Acid Calcium Phosphorus Magnesium Total Bilirubin Direct Bilirubin AST ALT Alkaline Phosphatase NT-Pro-B Natriuret Pep Total Protein Albumin Lipase Arterial Blood Glucose 64 L Ur Specific D Lo Vancomycin Trough Coronavirus (PCR) 06/02/21 06/02/21 06/02/21 08:59 11:39 14:50 WBC RBC Hgb MCV RDW Plt Count Lymph % (Auto) Eos % (Auto) Lymph # (Auto) Eos # (Auto) Seg Neutrophils % Seg Neuts % (Manual) Lymphocytes % (Manual) Seg Neutrophils # Man Lymphocytes # (Manual) PT INR ABG pH 7.339 L POC ABG pCO2 POC ABG pO2 ABG pO2 91.4 H ABG HCO3 26.2 H ABG O2 Saturation ABG Base Excess ABG Hemoglobin 11.3 L ABG Oxyhemoglobin ABG Sodium ABG Potassium ABG Chloride ABG Glucose Oxyhemoglobin 93.7 L Carboxyhemoglobin Sodium 148 H Potassium 2.9 L* Chloride 111.1 H Carbon Dioxide BUN Creatinine 0.3 L Glucose 29 L* POC Glucose 140 H Lactic Acid Calcium 7.7 L Phosphorus Magnesium 1.50 L Total Bilirubin Direct Bilirubin AST ALT Alkaline Phosphatase NT-Pro-B Natriuret Pep Total Protein Albumin Lipase Arterial Blood Glucose Ur Specific D Lo Vancomycin Trough Coronavirus (PCR) 06/02/21 06/02/21 06/02/21 17:49 19:47 21:30 WBC RBC Hgb MCV RDW Plt Count Lymph % (Auto) Eos % (Auto) Lymph # (Auto) Eos # (Auto) Seg Neutrophils % Seg Neuts % (Manual) Lymphocytes % (Manual) Seg Neutrophils # Man Lymphocytes # (Manual) PT INR ABG pH POC ABG pCO2 POC ABG pO2 ABG pO2 ABG HCO3 ABG O2 Saturation ABG Base Excess ABG Hemoglobin ABG Oxyhemoglobin ABG Sodium ABG Potassium ABG Chloride ABG Glucose Oxyhemoglobin Carboxyhemoglobin Sodium Potassium Chloride 109.6 H Carbon Dioxide 21 L D BUN Creatinine Glucose 123 H POC Glucose 67 L 117 H Lactic Acid Calcium 7.5 L Phosphorus 5.20 H D Magnesium 2.90 H Total Bilirubin Direct Bilirubin AST ALT Alkaline Phosphatase NT-Pro-B Natriuret Pep Total Protein Albumin Lipase Arterial Blood Glucose Ur Specific D Lo Vancomycin Trough Coronavirus (PCR) 06/02/21 06/02/21 06/02/21 21:30 22:00 23:10 WBC RBC Hgb MCV RDW Plt Count Lymph % (Auto) Eos % (Auto) Lymph # (Auto) Eos # (Auto) Seg Neutrophils % Seg Neuts % (Manual) Lymphocytes % (Manual) Seg Neutrophils # Man Lymphocytes # (Manual) PT INR ABG pH POC ABG pCO2 POC ABG pO2 ABG pO2 ABG HCO3 ABG O2 Saturation ABG Base Excess ABG Hemoglobin ABG Oxyhemoglobin ABG Sodium ABG Potassium ABG Chloride ABG Glucose Oxyhemoglobin Carboxyhemoglobin Sodium 147 H Potassium Chloride 111.7 H Carbon Dioxide BUN Creatinine Glucose 105 H POC Glucose 122 H Lactic Acid Calcium 7.5 L Phosphorus Magnesium Total Bilirubin Direct Bilirubin AST 74 H ALT 96 H Alkaline Phosphatase 207 H NT-Pro-B Natriuret Pep 2326 H Total Protein 5.0 L Albumin 2.0 L Lipase Arterial Blood Glucose Ur Specific D Lo Vancomycin Trough Coronavirus (PCR) 06/03/21 06/03/21 06/03/21 04:45 04:45 04:45 WBC 13.6 H RBC 3.44 L Hgb MCV 102 H RDW 25.4 H Plt Count Lymph % (Auto) Eos % (Auto) Lymph # (Auto) Eos # (Auto) Seg Neutrophils % Seg Neuts % (Manual) Lymphocytes % (Manual) Seg Neutrophils # Man Lymphocytes # (Manual) PT INR ABG pH POC ABG pCO2 POC ABG pO2 ABG pO2 ABG HCO3 ABG O2 Saturation ABG Base Excess ABG Hemoglobin ABG Oxyhemoglobin ABG Sodium ABG Potassium ABG Chloride ABG Glucose Oxyhemoglobin Carboxyhemoglobin Sodium Potassium Chloride Carbon Dioxide BUN Creatinine Glucose 151 H POC Glucose Lactic Acid Calcium 7.6 L Phosphorus 6.70 H D Magnesium Total Bilirubin Direct Bilirubin AST 68 H ALT 103 H Alkaline Phosphatase 226 H NT-Pro-B Natriuret Pep Total Protein 6.0 L Albumin 2.0 L Lipase Arterial Blood Glucose Ur Specific D Lo Vancomycin Trough Coronavirus (PCR) 06/03/21 06/03/21 06/03/21 05:02 10:00 11:46 WBC RBC Hgb MCV RDW Plt Count Lymph % (Auto) Eos % (Auto) Lymph # (Auto) Eos # (Auto) Seg Neutrophils % Seg Neuts % (Manual) Lymphocytes % (Manual) Seg Neutrophils # Man Lymphocytes # (Manual) PT INR ABG pH 7.312 L POC ABG pCO2 POC ABG pO2 ABG pO2 68.5 L ABG HCO3 ABG O2 Saturation 93.0 L ABG Base Excess ABG Hemoglobin 11.5 L ABG Oxyhemoglobin ABG Sodium ABG Potassium ABG Chloride ABG Glucose Oxyhemoglobin 90.1 L Carboxyhemoglobin Sodium Potassium Chloride Carbon Dioxide BUN Creatinine Glucose POC Glucose 139 H 150 H Lactic Acid Calcium Phosphorus Magnesium Total Bilirubin Direct Bilirubin AST ALT Alkaline Phosphatase NT-Pro-B Natriuret Pep Total Protein Albumin Lipase Arterial Blood Glucose Ur Specific D Lo Vancomycin Trough Coronavirus (PCR) Chest x-ray: image reviewed (persistent bilatyeral infiltrates) Allied health notes reviewed: nursing
[2021-06-03] MEDS: DEXAMETHASONE 2 MG TAB FEEDTUBE SCH (15:55)
[2021-06-03] MEDS: DEXTROSE 5% IN WATER 1,000 ML IV SCH (19:18)
[2021-06-03] MEDS: ENOXAPARIN 40 MG/0.4 ML INJ SUB-Q SCH (21:16)
[2021-06-03] MEDS: SODIUM CHLORIDE 0.9% 50 ML IVPB IV SCH (21:16)
[2021-06-03] MEDS: REMDESIVIR 100 MG in SODIUM CHLORIDE 0.9% 250ML 250 ML IV SCH (21:16)
[2021-06-03] MEDS ORDERED: INSULIN GLARGINE 100 UNITS/ML SUB-Q SCH (22:00)
[2021-06-04] MEDS: fentaNYL DRIP Premix 2,000 MCG/100 ML BAG IV SCH ×2 (02:14→17:48)
--- NOTE | 2021-06-04 03:28 | XRay Report ---
CHEST - 1 VIEW INDICATION: follow up respiratory failure COMPARISON: Yesterday FINDINGS: SUPPORT DEVICES: Stable support device positioning. HEART: Stable cardiomediastinal silhouette. LUNGS/PLEURA: Persistent moderate diffuse interstitial and patchy airspace disease ADDITIONAL FINDINGS: None. IMPRESSION: Unchanged exam. Signer Name: Philip Nolan MD Signed: 06/04/2021 3:24 AM Workstation Name: [id number]
[2021-06-04] MEDS: INSULIN LISPRO 100 UNIT/ML SUB-Q SCH ×3 (05:15→17:46)
[2021-06-04] MEDS: FREE WATER PO SCH ×3 (05:16→17:37)
[2021-06-04 06:16] LABS: Alanine Aminotransferase 70 units/L (7-56); Albumin 1.8 g/dL (3.9-5); Blood Urea Nitrogen 19 mg/dL (7-17); Hemolysis Index 7
[2021-06-04 06:18] LABS: Hemoglobin 9.7 gm/dl (10.1-14.3); Mean Corpuscular HGB Conc 32 % (30-34); Mean Corpuscular Volume 101 fl (79-97); Platelet Count 165 K/mm3 (140-440); Red Blood Count 2.99 M/mm3 (3.65-5.03)
[2021-06-04 06:25] LABS: BUN/Creatinine Ratio 38
[2021-06-04 06:45] LABS: Red Cell Distribution Width 25.3 % (13.2-15.2)
[2021-06-04] MEDS: DICYCLOMINE 10 MG CAP PO SCH ×4 (09:37→21:48)
[2021-06-04] MEDS: DEXAMETHASONE 2 MG TAB FEEDTUBE SCH (09:38)
[2021-06-04] MEDS: SENNOSIDES/DOCUSATE SODIUM 8.6/50 MG TAB FEEDTUBE SCH ×2 (09:38→21:48)
[2021-06-04] MEDS: ZINC SULFATE 220 MG CAP PO SCH ×2 (09:38→21:48)
[2021-06-04] MEDS: FUROSEMIDE 20 MG/2 ML INJ IV SCH (09:38)
[2021-06-04] MEDS: LANSOPRAZOLE 30 MG SOLUTAB FEEDTUBE SCH (09:38)
[2021-06-04] MEDS: ASCORBIC ACID 500 MG TAB PO SCH ×2 (09:38→21:48)
[2021-06-04] MEDS: HYDROCORTISONE SOD SUCC 100 MG/2 ML VIAL IV SCH ×2 (13:20→21:48)
[2021-06-04] MEDS: ARFORMOTEROL 15 MCG/2 ML NEBU IH SCH ×2 (13:44→21:43)
[2021-06-04] MEDS: BUDESONIDE 0.5 MG/2 ML NEBU IH SCH ×2 (13:44→21:42)
--- NOTE | 2021-06-04 14:25 | Progress Note ---
Assessment and Plan Septic shock possible hepatobiliary source Lactic acidosis h/o pulmonary fibrosis, Acute on chronic respiratory failure on home O2 of 2 L nasal cannula Transaminitis, biliary dilation, r/o cholangitis Hyperchloremia, metabolic acidosis, hypokalemia Hypoglycemia h/o pancreatic head cancer- chemoradiation therapy h/o Hypertension (Care plan discussed at length with her son & daughter with charge nurse and Chair Car Attendant listening; all their questions were answered) - get bilateral lower extremity dopplers re: VTE - stop Dexamethasone and begin stress dose steroids with Solucortef (100 mg IV q8h) - complete gentle diuresis - reduced set rate to 20/min but increased TV to 450 mls - repeat ABG at 9 pm - discontinue almaraz catheter - wean FiO2 to 75% - continue care as below otherwise; - continue daily SAT and SBT assessment as tolerated - sedation prn for target RASS 0 to -1 - VAP bundle addressed - continue lung protective strategies - continue bronchodilators with pulmonary hygiene per RT - wean per pulmonary driven protocols otherwise - wean vasopressors for target MAP > 65 mmHg - MRCP pending as she remains tenuous from a respiratory standpoint - continue anti-infective's; de-escalate per ID recommendations - accuchecks with glycemic control per SSI (While critically ill target blood glucose of 140-180 mg/dL; avoid hypoglycemia) - wean supplemental oxygen for target O2 sat's > 90% acutely - aspiration precautions - avoid nephrotoxins, renally dose all medications - prn analgesia per pain score - Maintenance of sleep-wake cycle, avoid delirium - G.I. & VTE prophylaxis - PT/OT/ROM exercises - mobility protocols for pressure ulcer prophylaxis - Monitor hemodynamics closely - continue other care per attending / other consultants - discharge planning ongoing concurrently COVID SPECIFIC INTERVENTIONS - Remdesivir as per ID/Pulmonary developed protocols (ordered) - continue systemic steroids for severe COVID-19 infection empirically (on Decadron) - follow repeat COVID tests results - zinc and vitamin C supplementation (ordered) - Monitor inflammatory markers per facility protocol - ferritin, Ddimer, CRP - therapeutic anticoagulation per system Protocol based on d-dimer and clinical considerations - Contact and airborne isolation .... Re-evaluate in am & prn CONDITION: CRITICAL PROGNOSIS: GUARDED CODE STATUS: FULL CODE The high probability of a clinically significant, sudden or life-threatening deterioration of the [respiratory, cardiovascular, GI & neurologic] system(s) required my full and direct attention, intervention and personal management. The aggregate critical care time was [32] minutes without overlap. Time includes spent on; [x] Data Review and interpretation [x] Patient assessment and monitoring of vital signs [x] Documentation [x] Medication orders and management Subjective Date of service: 06/04/21 Principal diagnosis: Septic shock; Pulm fibrosis; Hypoxemic resp failure; COVID- 19 infxn Interval history: Patient is seen today for: Septic shock; pulmonary fibrosis; Acute on chronic hypoxemic respiratory failure; Transaminitis; h/o pancreatic head cancer; HTN Seen and examined at bedside; 24hour events reviewed; nursing and respiratory care staff consulted; no adverse overnight events reported to me; resting in bed; remains on MVS; remains with ARDS; tolerating diuresis; remains on Levophed but weaning; no emesis or overt aspiration; no em,esis or overt aspiration Objective Vital Signs - 12hr 06/04/21 06/04/21 06/04/21 02:30 02:45 03:00 Temperature Pulse Rate 106 H 109 H 103 H Pulse Rate [ From Monitor] Respiratory 26 H 17 26 H Rate Blood Pressure 100/59 100/59 84/49 O2 Sat by Pulse 100 95 100 Oximetry 06/04/21 06/04/21 06/04/21 03:15 03:30 03:45 Temperature Pulse Rate 102 H 101 H 102 H Pulse Rate [ From Monitor] Respiratory 26 H 26 H 23 Rate Blood Pressure 93/56 96/55 101/57 O2 Sat by Pulse 100 100 100 Oximetry 06/04/21 06/04/21 06/04/21 04:00 04:15 04:30 Temperature 99.0 F Pulse Rate 94 H 98 H 93 H Pulse Rate [ 94 H From Monitor] Respiratory 24 24 26 H Rate Blood Pressure 88/56 89/59 95/58 O2 Sat by Pulse 100 99 99 Oximetry 06/04/21 06/04/21 06/04/21 04:45 04:46 05:00 Temperature Pulse Rate 94 H 90 77 Pulse Rate [ From Monitor] Respiratory 21 22 Rate Blood Pressure 81/53 81/53 98/61 O2 Sat by Pulse 99 99 97 Oximetry 06/04/21 06/04/21 06/04/21 05:15 05:30 05:45 Temperature Pulse Rate 90 91 H 94 H Pulse Rate [ From Monitor] Respiratory 26 H 18 21 Rate Blood Pressure 100/63 109/64 100/65 O2 Sat by Pulse 98 97 97 Oximetry 06/04/21 06/04/21 06/04/21 06:00 06:15 06:30 Temperature Pulse Rate 93 H 91 H 92 H Pulse Rate [ From Monitor] Respiratory 22 19 25 H Rate Blood Pressure 102/65 103/67 110/65 O2 Sat by Pulse 98 97 98 Oximetry 06/04/21 06/04/21 06/04/21 06:45 07:00 07:15 Temperature Pulse Rate 109 H 91 H 88 Pulse Rate [ From Monitor] Respiratory 21 16 18 Rate Blood Pressure 108/72 102/68 102/66 O2 Sat by Pulse 97 98 98 Oximetry 06/04/21 06/04/21 06/04/21 07:30 07:45 08:00 Temperature 98.2 F Pulse Rate 88 88 87 Pulse Rate [ 92 H From Monitor] Respiratory 19 19 13 Rate Blood Pressure 109/66 114/64 106/66 O2 Sat by Pulse 100 100 100 Oximetry 06/04/21 06/04/21 06/04/21 08:15 08:30 08:45 Temperature Pulse Rate 90 89 88 Pulse Rate [ From Monitor] Respiratory 11 L 19 16 Rate Blood Pressure 103/67 103/63 121/77 O2 Sat by Pulse 100 100 96 Oximetry 06/04/21 06/04/21 06/04/21 09:00 09:15 09:30 Temperature Pulse Rate 87 103 H 88 Pulse Rate [ From Monitor] Respiratory 13 23 12 Rate Blood Pressure 117/78 120/82 105/77 O2 Sat by Pulse 96 94 97 Oximetry 06/04/21 06/04/21 06/04/21 09:45 09:50 10:00 Temperature Pulse Rate 104 H 91 H 91 H Pulse Rate [ From Monitor] Respiratory 14 20 Rate Blood Pressure 113/86 119/94 119/94 O2 Sat by Pulse 97 96 98 Oximetry 06/04/21 06/04/21 06/04/21 10:15 10:30 10:45 Temperature Pulse Rate 87 95 H 93 H Pulse Rate [ From Monitor] Respiratory 13 17 26 H Rate Blood Pressure 121/77 108/75 112/72 O2 Sat by Pulse 93 96 97 Oximetry 06/04/21 06/04/21 06/04/21 11:00 11:15 11:30 Temperature Pulse Rate 91 H 83 89 Pulse Rate [ From Monitor] Respiratory 21 17 24 Rate Blood Pressure 96/69 94/75 100/73 O2 Sat by Pulse 98 96 98 Oximetry 06/04/21 06/04/21 06/04/21 11:45 12:00 12:15 Temperature Pulse Rate 90 92 H 80 Pulse Rate [ 93 H From Monitor] Respiratory 26 H 12 20 Rate Blood Pressure 107/83 118/77 122/78 O2 Sat by Pulse 94 97 98 Oximetry 06/04/21 06/04/21 06/04/21 12:30 12:45 13:00 Temperature Pulse Rate 93 H 96 H 77 Pulse Rate [ From Monitor] Respiratory 26 H 18 25 H Rate Blood Pressure 108/76 107/81 116/79 O2 Sat by Pulse 97 98 97 Oximetry 06/04/21 06/04/21 13:15 13:47 Temperature Pulse Rate 94 H 94 H Pulse Rate [ From Monitor] Respiratory 18 Rate Blood Pressure 124/88 124/88 O2 Sat by Pulse 97 Oximetry Constitutional: no acute distress, other (mildly increased respiratory effort at rest on MVS) Eyes: non-icteric ENT: oropharynx moist, other (ETT 24 cm JOSH) Neck: supple, no lymphadenopathy, no JVD Effort: mildly labored Ascultation: Bilateral: diminished breath sounds, rales (inspiratory) Percussion: Bilateral: not dull Cardiovascular: regular rate and rhythm, other (S1,S2) Gastrointestinal: normoactive bowel sounds, hypoactive bowel sounds, soft, non- distended (protuberant) Integumentary: normal Extremities: no cyanosis, pulses normal, edema (1+ edema), other (right femoral CVL) Neurologic: normal mental status, non-focal exam (grossly), pupils equal and round, other (sedated) Psychiatric: other (unable to assess re: AMS) CBC and BMP: 06/04/21 04:00 06/04/21 04:40 ABG, PT/INR, D-dimer: ABG ABG pH 7.312 pH Units (7.350-7.450) L 06/03/21 10:00 POC ABG pCO2 67.7 mmHg (32.0-48.0) H 06/02/21 05:36 ABG pCO2 50.3 mm Hg 06/03/21 10:00 POC ABG pO2 189.6 mmHg (83-108) H 06/02/21 05:36 ABG pO2 68.5 mm Hg (80.0-90.0) L 06/03/21 10:00 POC ABG HCO3 29.1 06/02/21 05:36 ABG O2 Saturation 93.0 % (95.0-99.0) L 06/03/21 10:00 PT/INR, D-dimer PT 16.9 Sec. (12.2-14.9) H 05/23/21 10:15 INR 1.24 (0.87-1.13) H 05/23/21 10:15 Abnormal lab findings: Abnormal Labs 05/11/21 05/11/21 05/11/21 05:43 05:43 05:43 WBC RBC Hgb Hct MCV 98 H MCH RDW 17.7 H Plt Count Lymph % (Auto) 10.8 L Eos % (Auto) Lymph # (Auto) 0.6 L Eos # (Auto) Seg Neutrophils % 84.1 H Seg Neuts % (Manual) Lymphocytes % (Manual) Seg Neutrophils # Man Lymphocytes # (Manual) PT 16.0 H INR 1.16 H ABG pH POC ABG pCO2 POC ABG pO2 ABG pO2 ABG HCO3 ABG O2 Saturation ABG Base Excess ABG Hemoglobin ABG Oxyhemoglobin ABG Sodium ABG Potassium ABG Chloride ABG Glucose Oxyhemoglobin Carboxyhemoglobin Sodium Potassium Chloride Carbon Dioxide 21 L BUN 4 L Creatinine 0.4 L Glucose POC Glucose Lactic Acid Calcium 8.3 L Phosphorus Magnesium Total Bilirubin 2.10 H Direct Bilirubin 1.4 H AST 335 H ALT 57 H Alkaline Phosphatase 339 H NT-Pro-B Natriuret Pep Total Protein Albumin 2.4 L Lipase 3 L Arterial Blood Glucose Ur Specific [place] Vancomycin Trough Coronavirus (PCR) 05/11/21 05/11/21 05/12/21 11:18 12:28 04:08 WBC RBC Hgb Hct MCV MCH RDW Plt Count Lymph % (Auto) Eos % (Auto) Lymph # (Auto) Eos # (Auto) Seg Neutrophils % Seg Neuts % (Manual) Lymphocytes % (Manual) Seg Neutrophils # Man Lymphocytes # (Manual) PT INR ABG pH POC ABG pCO2 POC ABG pO2 ABG pO2 ABG HCO3 ABG O2 Saturation ABG Base Excess ABG Hemoglobin ABG Oxyhemoglobin ABG Sodium ABG Potassium ABG Chloride ABG Glucose Oxyhemoglobin Carboxyhemoglobin Sodium Potassium Chloride Carbon Dioxide BUN Creatinine Glucose POC Glucose Lactic Acid 4.20 H* 4.50 H* Calcium Phosphorus Magnesium Total Bilirubin Direct Bilirubin AST ALT Alkaline Phosphatase NT-Pro-B Natriuret Pep Total Protein Albumin Lipase Arterial Blood Glucose Ur Specific [place] 1.035 H Vancomycin Trough Coronavirus (PCR) 05/12/21 05/12/21 05/12/21 04:08 04:08 09:47 WBC 22.8 H RBC 3.39 L Hgb Hct MCV 98 H MCH RDW 17.7 H Plt Count Lymph % (Auto) Eos % (Auto) Lymph # (Auto) Eos # (Auto) Seg Neutrophils % Seg Neuts % (Manual) 85.5 H Lymphocytes % (Manual) 2.0 L Seg Neutrophils # Man 19.5 H Lymphocytes # (Manual) 0.5 L PT INR ABG pH POC ABG pCO2 POC ABG pO2 ABG pO2 ABG HCO3 ABG O2 Saturation ABG Base Excess ABG Hemoglobin ABG Oxyhemoglobin ABG Sodium ABG Potassium ABG Chloride ABG Glucose Oxyhemoglobin Carboxyhemoglobin Sodium Potassium 3.3 L Chloride 108.9 H Carbon Dioxide 17 L BUN 4 L Creatinine 0.5 L Glucose 106 H POC Glucose Lactic Acid 2.60 H* Calcium 6.4 L D Phosphorus Magnesium Total Bilirubin 2.10 H Direct Bilirubin AST 156 H ALT 61 H Alkaline Phosphatase 317 H NT-Pro-B Natriuret Pep Total Protein 5.4 L D Albumin 1.8 L Lipase Arterial Blood Glucose Ur Specific [place] Vancomycin Trough Coronavirus (PCR) 05/12/21 05/12/21 05/12/21 11:47 12:30 12:36 WBC RBC Hgb Hct MCV MCH RDW Plt Count Lymph % (Auto) Eos % (Auto) Lymph # (Auto) Eos # (Auto) Seg Neutrophils % Seg Neuts % (Manual) Lymphocytes % (Manual) Seg Neutrophils # Man Lymphocytes # (Manual) PT INR ABG pH POC ABG pCO2 POC ABG pO2 ABG pO2 ABG HCO3 ABG O2 Saturation ABG Base Excess ABG Hemoglobin ABG Oxyhemoglobin ABG Sodium ABG Potassium ABG Chloride ABG Glucose Oxyhemoglobin Carboxyhemoglobin Sodium Potassium Chloride Carbon Dioxide BUN Creatinine Glucose POC Glucose 59 L 120 H Lactic Acid 2.50 H* Calcium Phosphorus Magnesium Total Bilirubin Direct Bilirubin AST ALT Alkaline Phosphatase NT-Pro-B Natriuret Pep Total Protein Albumin Lipase Arterial Blood Glucose Ur Specific [place] Vancomycin Trough Coronavirus (PCR) 05/12/21 05/12/21 05/13/21 23:45 Unknown 04:00 WBC 19.8 H RBC 3.52 L Hgb Hct MCV 98 H MCH RDW 18.5 H Plt Count Lymph % (Auto) Eos % (Auto) Lymph # (Auto) Eos # (Auto) Seg Neutrophils % Seg Neuts % (Manual) Lymphocytes % (Manual) Seg Neutrophils # Man Lymphocytes # (Manual) PT INR ABG pH POC ABG pCO2 POC ABG pO2 ABG pO2 ABG HCO3 ABG O2 Saturation ABG Base Excess ABG Hemoglobin ABG Oxyhemoglobin ABG Sodium ABG Potassium ABG Chloride ABG Glucose Oxyhemoglobin Carboxyhemoglobin Sodium Potassium Chloride Carbon Dioxide BUN Creatinine Glucose POC Glucose 119 H Lactic Acid 3.30 H* Calcium Phosphorus Magnesium Total Bilirubin Direct Bilirubin AST ALT Alkaline Phosphatase NT-Pro-B Natriuret Pep Total Protein Albumin Lipase Arterial Blood Glucose Ur Specific [place] Vancomycin Trough Coronavirus (PCR) 05/13/21 05/13/21 05/13/21 04:00 05:42 12:19 WBC RBC Hgb Hct MCV MCH RDW Plt Count Lymph % (Auto) Eos % (Auto) Lymph # (Auto) Eos # (Auto) Seg Neutrophils % Seg Neuts % (Manual) Lymphocytes % (Manual) Seg Neutrophils # Man Lymphocytes # (Manual) PT INR ABG pH POC ABG pCO2 POC ABG pO2 ABG pO2 ABG HCO3 ABG O2 Saturation ABG Base Excess ABG Hemoglobin ABG Oxyhemoglobin ABG Sodium ABG Potassium ABG Chloride ABG Glucose Oxyhemoglobin Carboxyhemoglobin Sodium Potassium 3.4 L Chloride 107.1 H Carbon Dioxide 19 L BUN 4 L Creatinine 0.4 L Glucose 157 H POC Glucose 143 H 110 H Lactic Acid Calcium 7.4 L D Phosphorus 1.60 L Magnesium 1.50 L Total Bilirubin 1.40 H Direct Bilirubin AST 95 H ALT Alkaline Phosphatase 328 H NT-Pro-B Natriuret Pep Total Protein 5.5 L Albumin 1.6 L Lipase Arterial Blood Glucose Ur Specific [place] Vancomycin Trough Coronavirus (PCR) 05/14/21 05/14/21 05/14/21 06:15 06:15 10:25 WBC 11.7 H RBC 3.41 L Hgb Hct MCV 98 H MCH RDW 18.6 H Plt Count Lymph % (Auto) Eos % (Auto) Lymph # (Auto) Eos # (Auto) Seg Neutrophils % Seg Neuts % (Manual) Lymphocytes % (Manual) Seg Neutrophils # Man Lymphocytes # (Manual) PT INR ABG pH POC ABG pCO2 POC ABG pO2 ABG pO2 76.0 L ABG HCO3 27.2 H ABG O2 Saturation ABG Base Excess ABG Hemoglobin 11.5 L ABG Oxyhemoglobin ABG Sodium ABG Potassium ABG Chloride ABG Glucose Oxyhemoglobin 94.4 L Carboxyhemoglobin Sodium Potassium 3.2 L Chloride Carbon Dioxide BUN 6 L Creatinine 0.5 L Glucose 103 H POC Glucose Lactic Acid Calcium 7.3 L Phosphorus 1.70 L Magnesium Total Bilirubin Direct Bilirubin AST 66 H ALT Alkaline Phosphatase 295 H NT-Pro-B Natriuret Pep Total Protein 5.3 L Albumin 1.8 L Lipase Arterial Blood Glucose Ur Specific [place] Vancomycin Trough Coronavirus (PCR) 05/14/21 05/14/21 05/14/21 15:20 15:20 17:26 WBC RBC Hgb Hct MCV MCH RDW Plt Count Lymph % (Auto) Eos % (Auto) Lymph # (Auto) Eos # (Auto) Seg Neutrophils % Seg Neuts % (Manual) Lymphocytes % (Manual) Seg Neutrophils # Man Lymphocytes # (Manual) PT INR ABG pH POC ABG pCO2 POC ABG pO2 ABG pO2 ABG HCO3 ABG O2 Saturation ABG Base Excess ABG Hemoglobin ABG Oxyhemoglobin ABG Sodium ABG Potassium ABG Chloride ABG Glucose Oxyhemoglobin Carboxyhemoglobin Sodium 146 H D Potassium Chloride 108.4 H Carbon Dioxide BUN 5 L Creatinine 0.5 L Glucose POC Glucose 63 L Lactic Acid Calcium 7.6 L Phosphorus Magnesium Total Bilirubin Direct Bilirubin AST ALT Alkaline Phosphatase NT-Pro-B Natriuret Pep Total Protein Albumin Lipase Arterial Blood Glucose Ur Specific [place] Vancomycin Trough 25.3 H Coronavirus (PCR) 05/14/21 05/15/21 05/15/21 21:27 00:03 00:29 WBC RBC Hgb Hct MCV MCH RDW Plt Count Lymph % (Auto) Eos % (Auto) Lymph # (Auto) Eos # (Auto) Seg Neutrophils % Seg Neuts % (Manual) Lymphocytes % (Manual) Seg Neutrophils # Man Lymphocytes # (Manual) PT INR ABG pH POC ABG pCO2 POC ABG pO2 ABG pO2 ABG HCO3 ABG O2 Saturation ABG Base Excess ABG Hemoglobin ABG Oxyhemoglobin ABG Sodium ABG Potassium ABG Chloride ABG Glucose Oxyhemoglobin Carboxyhemoglobin Sodium Potassium Chloride Carbon Dioxide BUN Creatinine Glucose POC Glucose 52 L 54 L 129 H Lactic Acid Calcium Phosphorus Magnesium Total Bilirubin Direct Bilirubin AST ALT Alkaline Phosphatase NT-Pro-B Natriuret Pep Total Protein Albumin Lipase Arterial Blood Glucose Ur Specific [place] Vancomycin Trough Coronavirus (PCR) 05/15/21 05/15/21 05/15/21 04:45 04:45 11:58 WBC RBC 3.24 L Hgb Hct MCV 98 H MCH RDW 18.5 H Plt Count 122 L Lymph % (Auto) 7.4 L Eos % (Auto) Lymph # (Auto) 0.6 L Eos # (Auto) Seg Neutrophils % 81.2 H Seg Neuts % (Manual) Lymphocytes % (Manual) Seg Neutrophils # Man Lymphocytes # (Manual) PT INR ABG pH POC ABG pCO2 POC ABG pO2 ABG pO2 ABG HCO3 ABG O2 Saturation ABG Base Excess ABG Hemoglobin ABG Oxyhemoglobin ABG Sodium ABG Potassium ABG Chloride ABG Glucose Oxyhemoglobin Carboxyhemoglobin Sodium 146 H Potassium 3.1 L Chloride 108.8 H Carbon Dioxide BUN 6 L Creatinine Glucose 121 H POC Glucose 68 L Lactic Acid Calcium 7.5 L Phosphorus 2.30 L D Magnesium Total Bilirubin 1.90 H Direct Bilirubin AST 55 H ALT Alkaline Phosphatase 231 H NT-Pro-B Natriuret Pep Total Protein 5.4 L Albumin 1.5 L Lipase Arterial Blood Glucose Ur Specific [place] Vancomycin Trough Coronavirus (PCR) 05/15/21 05/16/21 05/16/21 13:50 00:06 00:43 WBC RBC Hgb Hct MCV MCH RDW Plt Count Lymph % (Auto) Eos % (Auto) Lymph # (Auto) Eos # (Auto) Seg Neutrophils % Seg Neuts % (Manual) Lymphocytes % (Manual) Seg Neutrophils # Man Lymphocytes # (Manual) PT INR ABG pH POC ABG pCO2 POC ABG pO2 ABG pO2 ABG HCO3 ABG O2 Saturation ABG Base Excess ABG Hemoglobin ABG Oxyhemoglobin ABG Sodium ABG Potassium ABG Chloride ABG Glucose Oxyhemoglobin Carboxyhemoglobin Sodium Potassium Chloride Carbon Dioxide BUN Creatinine Glucose POC Glucose 147 H 54 L 116 H Lactic Acid Calcium Phosphorus Magnesium Total Bilirubin Direct Bilirubin AST ALT Alkaline Phosphatase NT-Pro-B Natriuret Pep Total Protein Albumin Lipase Arterial Blood Glucose Ur Specific [place] Vancomycin Trough Coronavirus (PCR) 05/16/21 05/16/21 05/16/21 04:31 04:31 05:58 WBC RBC 3.12 L Hgb 9.8 L Hct MCV 98 H MCH RDW 18.2 H Plt Count 115 L Lymph % (Auto) Eos % (Auto) Lymph # (Auto) Eos # (Auto) Seg Neutrophils % Seg Neuts % (Manual) Lymphocytes % (Manual) Seg Neutrophils # Man Lymphocytes # (Manual) PT INR ABG pH POC ABG pCO2 POC ABG pO2 ABG pO2 ABG HCO3 ABG O2 Saturation ABG Base Excess ABG Hemoglobin ABG Oxyhemoglobin ABG Sodium ABG Potassium ABG Chloride ABG Glucose Oxyhemoglobin Carboxyhemoglobin Sodium 146 H Potassium 3.2 L Chloride Carbon Dioxide BUN 5 L Creatinine 0.5 L Glucose POC Glucose 61 L Lactic Acid Calcium 7.2 L Phosphorus 2.30 L Magnesium Total Bilirubin Direct Bilirubin AST ALT Alkaline Phosphatase NT-Pro-B Natriuret Pep Total Protein Albumin Lipase Arterial Blood Glucose Ur Specific [place] Vancomycin Trough Coronavirus (PCR) 05/16/21 05/16/21 05/17/21 08:11 23:42 04:15 WBC RBC Hgb Hct MCV MCH RDW Plt Count Lymph % (Auto) Eos % (Auto) Lymph # (Auto) Eos # (Auto) Seg Neutrophils % Seg Neuts % (Manual) Lymphocytes % (Manual) Seg Neutrophils # Man Lymphocytes # (Manual) PT INR ABG pH POC ABG pCO2 POC ABG pO2 ABG pO2 ABG HCO3 ABG O2 Saturation ABG Base Excess ABG Hemoglobin ABG Oxyhemoglobin ABG Sodium ABG Potassium ABG Chloride ABG Glucose Oxyhemoglobin Carboxyhemoglobin Sodium Potassium Chloride Carbon Dioxide BUN Creatinine Glucose POC Glucose 58 L 200 H Lactic Acid Calcium Phosphorus Magnesium Total Bilirubin 1.70 H Direct Bilirubin 1.5 H AST 43 H ALT Alkaline Phosphatase 196 H NT-Pro-B Natriuret Pep Total Protein 5.4 L Albumin 1.6 L Lipase Arterial Blood Glucose Ur Specific [place] Vancomycin Trough Coronavirus (PCR) 05/17/21 05/17/21 05/17/21 04:15 04:15 05:07 WBC RBC 3.26 L Hgb Hct MCV 98 H MCH RDW 18.9 H Plt Count 114 L Lymph % (Auto) Eos % (Auto) Lymph # (Auto) Eos # (Auto) Seg Neutrophils % Seg Neuts % (Manual) Lymphocytes % (Manual) Seg Neutrophils # Man Lymphocytes # (Manual) PT INR ABG pH POC ABG pCO2 POC ABG pO2 ABG pO2 ABG HCO3 ABG O2 Saturation ABG Base Excess ABG Hemoglobin ABG Oxyhemoglobin ABG Sodium ABG Potassium ABG Chloride ABG Glucose Oxyhemoglobin Carboxyhemoglobin Sodium Potassium Chloride Carbon Dioxide 35 H BUN 5 L Creatinine Glucose 274 H POC Glucose 249 H Lactic Acid Calcium 7.7 L Phosphorus 1.50 L D Magnesium Total Bilirubin Direct Bilirubin AST ALT Alkaline Phosphatase NT-Pro-B Natriuret Pep Total Protein Albumin Lipase Arterial Blood Glucose Ur Specific [place] Vancomycin Trough Coronavirus (PCR) 05/17/21 05/17/21 05/17/21 11:56 16:29 23:37 WBC RBC Hgb Hct MCV MCH RDW Plt Count Lymph % (Auto) Eos % (Auto) Lymph # (Auto) Eos # (Auto) Seg Neutrophils % Seg Neuts % (Manual) Lymphocytes % (Manual) Seg Neutrophils # Man Lymphocytes # (Manual) PT INR ABG pH POC ABG pCO2 POC ABG pO2 ABG pO2 ABG HCO3 ABG O2 Saturation ABG Base Excess ABG Hemoglobin ABG Oxyhemoglobin ABG Sodium ABG Potassium ABG Chloride ABG Glucose Oxyhemoglobin Carboxyhemoglobin Sodium Potassium Chloride Carbon Dioxide BUN Creatinine Glucose POC Glucose 176 H 219 H 150 H Lactic Acid Calcium Phosphorus Magnesium Total Bilirubin Direct Bilirubin AST ALT Alkaline Phosphatase NT-Pro-B Natriuret Pep Total Protein Albumin Lipase Arterial Blood Glucose Ur Specific [place] Vancomycin Trough Coronavirus (PCR) 05/18/21 05/18/21 05/18/21 04:00 05:22 09:00 WBC RBC 3.34 L Hgb Hct MCV MCH RDW 18.8 H Plt Count Lymph % (Auto) Eos % (Auto) Lymph # (Auto) Eos # (Auto) Seg Neutrophils % Seg Neuts % (Manual) Lymphocytes % (Manual) Seg Neutrophils # Man Lymphocytes # (Manual) PT INR ABG pH POC ABG pCO2 POC ABG pO2 ABG pO2 ABG HCO3 ABG O2 Saturation ABG Base Excess ABG Hemoglobin ABG Oxyhemoglobin ABG Sodium ABG Potassium ABG Chloride ABG Glucose Oxyhemoglobin Carboxyhemoglobin Sodium Potassium 5.4 H D Chloride 97.5 L Carbon Dioxide 33 H BUN Creatinine 0.4 L Glucose 461 H POC Glucose 181 H Lactic Acid Calcium 7.2 L Phosphorus 5.00 H D Magnesium Total Bilirubin Direct Bilirubin AST ALT Alkaline Phosphatase NT-Pro-B Natriuret Pep Total Protein Albumin Lipase Arterial Blood Glucose Ur Specific [place] Vancomycin Trough Coronavirus (PCR) 05/18/21 05/18/21 05/18/21 11:16 12:50 16:29 WBC RBC Hgb Hct MCV MCH RDW Plt Count Lymph % (Auto) Eos % (Auto) Lymph # (Auto) Eos # (Auto) Seg Neutrophils % Seg Neuts % (Manual) Lymphocytes % (Manual) Seg Neutrophils # Man Lymphocytes # (Manual) PT INR ABG pH POC ABG pCO2 POC ABG pO2 ABG pO2 ABG HCO3 ABG O2 Saturation ABG Base Excess ABG Hemoglobin ABG Oxyhemoglobin ABG Sodium ABG Potassium ABG Chloride ABG Glucose Oxyhemoglobin Carboxyhemoglobin Sodium Potassium 3.4 L D Chloride Carbon Dioxide 36 H BUN 19 H Creatinine 0.4 L Glucose 231 H POC Glucose 168 H 196 H Lactic Acid Calcium 7.5 L Phosphorus 1.80 L D Magnesium Total Bilirubin Direct Bilirubin AST ALT Alkaline Phosphatase NT-Pro-B Natriuret Pep Total Protein Albumin Lipase Arterial Blood Glucose Ur Specific [place] Vancomycin Trough Coronavirus (PCR) 05/19/21 05/19/21 05/19/21 00:05 04:08 05:07 WBC RBC Hgb Hct MCV MCH RDW Plt Count Lymph % (Auto) Eos % (Auto) Lymph # (Auto) Eos # (Auto) Seg Neutrophils % Seg Neuts % (Manual) Lymphocytes % (Manual) Seg Neutrophils # Man Lymphocytes # (Manual) PT INR ABG pH POC ABG pCO2 POC ABG pO2 ABG pO2 ABG HCO3 ABG O2 Saturation ABG Base Excess ABG Hemoglobin ABG Oxyhemoglobin ABG Sodium ABG Potassium ABG Chloride ABG Glucose Oxyhemoglobin Carboxyhemoglobin Sodium 146 H Potassium Chloride Carbon Dioxide 35 H BUN 25 H Creatinine 0.4 L Glucose 218 H POC Glucose 164 H 203 H Lactic Acid Calcium 7.2 L Phosphorus Magnesium Total Bilirubin Direct Bilirubin AST ALT Alkaline Phosphatase NT-Pro-B Natriuret Pep Total Protein Albumin Lipase Arterial Blood Glucose Ur Specific [place] Vancomycin Trough Coronavirus (PCR) 05/19/21 05/19/21 05/19/21 12:16 14:14 17:11 WBC RBC Hgb Hct MCV MCH RDW Plt Count Lymph % (Auto) Eos % (Auto) Lymph # (Auto) Eos # (Auto) Seg Neutrophils % Seg Neuts % (Manual) Lymphocytes % (Manual) Seg Neutrophils # Man Lymphocytes # (Manual) PT INR ABG pH 7.482 H POC ABG pCO2 POC ABG pO2 ABG pO2 111.7 H ABG HCO3 31.4 H ABG O2 Saturation ABG Base Excess 7.2 H ABG Hemoglobin 11.1 L ABG Oxyhemoglobin ABG Sodium ABG Potassium ABG Chloride ABG Glucose Oxyhemoglobin Carboxyhemoglobin Sodium Potassium Chloride Carbon Dioxide BUN Creatinine Glucose POC Glucose 206 H 194 H Lactic Acid Calcium Phosphorus Magnesium Total Bilirubin Direct Bilirubin AST ALT Alkaline Phosphatase NT-Pro-B Natriuret Pep Total Protein Albumin Lipase Arterial Blood Glucose Ur Specific [place] Vancomycin Trough Coronavirus (PCR) 05/20/21 05/20/21 05/20/21 00:01 04:30 06:09 WBC RBC Hgb Hct MCV MCH RDW Plt Count Lymph % (Auto) Eos % (Auto) Lymph # (Auto) Eos # (Auto) Seg Neutrophils % Seg Neuts % (Manual) Lymphocytes % (Manual) Seg Neutrophils # Man Lymphocytes # (Manual) PT INR ABG pH POC ABG pCO2 POC ABG pO2 ABG pO2 ABG HCO3 ABG O2 Saturation ABG Base Excess ABG Hemoglobin ABG Oxyhemoglobin ABG Sodium ABG Potassium ABG Chloride ABG Glucose Oxyhemoglobin Carboxyhemoglobin Sodium Potassium 3.5 L Chloride Carbon Dioxide BUN 24 H Creatinine 0.3 L Glucose 254 H POC Glucose 209 H 210 H Lactic Acid Calcium 7.5 L Phosphorus 1.90 L D Magnesium Total Bilirubin 1.60 H Direct Bilirubin AST 201 H ALT 170 H Alkaline Phosphatase 169 H NT-Pro-B Natriuret Pep Total Protein 5.3 L Albumin 1.9 L Lipase Arterial Blood Glucose Ur Specific [place] Vancomycin Trough Coronavirus (PCR) 05/20/21 05/20/21 05/20/21 11:41 16:47 22:21 WBC RBC Hgb Hct MCV MCH RDW Plt Count Lymph % (Auto) Eos % (Auto) Lymph # (Auto) Eos # (Auto) Seg Neutrophils % Seg Neuts % (Manual) Lymphocytes % (Manual) Seg Neutrophils # Man Lymphocytes # (Manual) PT INR ABG pH POC ABG pCO2 POC ABG pO2 ABG pO2 ABG HCO3 ABG O2 Saturation ABG Base Excess ABG Hemoglobin ABG Oxyhemoglobin ABG Sodium ABG Potassium ABG Chloride ABG Glucose Oxyhemoglobin Carboxyhemoglobin Sodium Potassium Chloride Carbon Dioxide BUN Creatinine Glucose POC Glucose 158 H 232 H 211 H Lactic Acid Calcium Phosphorus Magnesium Total Bilirubin Direct Bilirubin AST ALT Alkaline Phosphatase NT-Pro-B Natriuret Pep Total Protein Albumin Lipase Arterial Blood Glucose Ur Specific [place] Vancomycin Trough Coronavirus (PCR) 05/21/21 05/21/21 05/21/21 00:35 04:00 04:00 WBC RBC 3.28 L Hgb Hct MCV MCH RDW 18.7 H Plt Count 125 L Lymph % (Auto) Eos % (Auto) Lymph # (Auto) Eos # (Auto) Seg Neutrophils % Seg Neuts % (Manual) Lymphocytes % (Manual) Seg Neutrophils # Man Lymphocytes # (Manual) PT INR ABG pH POC ABG pCO2 POC ABG pO2 ABG pO2 ABG HCO3 ABG O2 Saturation ABG Base Excess ABG Hemoglobin ABG Oxyhemoglobin ABG Sodium ABG Potassium ABG Chloride ABG Glucose Oxyhemoglobin Carboxyhemoglobin Sodium Potassium 5.1 H D Chloride 108.7 H Carbon Dioxide BUN 21 H Creatinine 0.2 L Glucose 242 H POC Glucose 230 H Lactic Acid Calcium 7.3 L Phosphorus Magnesium Total Bilirubin Direct Bilirubin AST ALT Alkaline Phosphatase NT-Pro-B Natriuret Pep Total Protein Albumin Lipase Arterial Blood Glucose Ur Specific [place] Vancomycin Trough Coronavirus (PCR) 05/21/21 05/21/21 05/21/21 05:08 11:47 17:43 WBC RBC Hgb Hct MCV MCH RDW Plt Count Lymph % (Auto) Eos % (Auto) Lymph # (Auto) Eos # (Auto) Seg Neutrophils % Seg Neuts % (Manual) Lymphocytes % (Manual) Seg Neutrophils # Man Lymphocytes # (Manual) PT INR ABG pH POC ABG pCO2 POC ABG pO2 ABG pO2 ABG HCO3 ABG O2 Saturation ABG Base Excess ABG Hemoglobin ABG Oxyhemoglobin ABG Sodium ABG Potassium ABG Chloride ABG Glucose Oxyhemoglobin Carboxyhemoglobin Sodium Potassium Chloride Carbon Dioxide BUN Creatinine Glucose POC Glucose 196 H 139 H 147 H Lactic Acid Calcium Phosphorus Magnesium Total Bilirubin Direct Bilirubin AST ALT Alkaline Phosphatase NT-Pro-B Natriuret Pep Total Protein Albumin Lipase Arterial Blood Glucose Ur Specific [place] Vancomycin Trough Coronavirus (PCR) 05/21/21 05/21/21 05/22/21 17:57 23:32 04:16 WBC RBC Hgb Hct MCV MCH RDW Plt Count Lymph % (Auto) Eos % (Auto) Lymph # (Auto) Eos # (Auto) Seg Neutrophils % Seg Neuts % (Manual) Lymphocytes % (Manual) Seg Neutrophils # Man Lymphocytes # (Manual) PT INR ABG pH POC ABG pCO2 POC ABG pO2 ABG pO2 ABG HCO3 ABG O2 Saturation ABG Base Excess ABG Hemoglobin ABG Oxyhemoglobin ABG Sodium ABG Potassium ABG Chloride ABG Glucose Oxyhemoglobin Carboxyhemoglobin Sodium Potassium 5.2 H Chloride Carbon Dioxide BUN 19 H Creatinine 0.2 L Glucose 154 H POC Glucose 218 H 185 H Lactic Acid Calcium 7.5 L Phosphorus Magnesium Total Bilirubin 3.00 H Direct Bilirubin 2.3 H AST 437 H ALT 462 H Alkaline Phosphatase 186 H NT-Pro-B Natriuret Pep Total Protein 5.5 L Albumin 1.9 L Lipase Arterial Blood Glucose Ur Specific [place] Vancomycin Trough Coronavirus (PCR) 05/22/21 05/22/21 05/22/21 04:30 04:30 04:30 WBC RBC Hgb Hct MCV MCH RDW Plt Count Lymph % (Auto) Eos % (Auto) Lymph # (Auto) Eos # (Auto) Seg Neutrophils % Seg Neuts % (Manual) Lymphocytes % (Manual) Seg Neutrophils # Man Lymphocytes # (Manual) PT 19.5 H INR 1.49 H ABG pH POC ABG pCO2 POC ABG pO2 ABG pO2 ABG HCO3 ABG O2 Saturation ABG Base Excess ABG Hemoglobin ABG Oxyhemoglobin ABG Sodium ABG Potassium ABG Chloride ABG Glucose Oxyhemoglobin Carboxyhemoglobin Sodium 134 L Potassium Chloride Carbon Dioxide BUN 19 H Creatinine 0.2 L Glucose 208 H POC Glucose Lactic Acid Calcium 7.2 L Phosphorus 2.40 L D Magnesium Total Bilirubin 2.20 H Direct Bilirubin AST 350 H ALT 496 H Alkaline Phosphatase 167 H NT-Pro-B Natriuret Pep Total Protein 4.8 L Albumin 1.7 L Lipase Arterial Blood Glucose Ur Specific [place] Vancomycin Trough Coronavirus (PCR) 05/22/21 05/22/21 05/22/21 11:59 17:16 23:07 WBC RBC Hgb Hct MCV MCH RDW Plt Count Lymph % (Auto) Eos % (Auto) Lymph # (Auto) Eos # (Auto) Seg Neutrophils % Seg Neuts % (Manual) Lymphocytes % (Manual) Seg Neutrophils # Man Lymphocytes # (Manual) PT INR ABG pH POC ABG pCO2 POC ABG pO2 ABG pO2 ABG HCO3 ABG O2 Saturation ABG Base Excess ABG Hemoglobin ABG Oxyhemoglobin ABG Sodium ABG Potassium ABG Chloride ABG Glucose Oxyhemoglobin Carboxyhemoglobin Sodium Potassium Chloride Carbon Dioxide BUN Creatinine Glucose POC Glucose 204 H 244 H 226 H Lactic Acid Calcium Phosphorus Magnesium Total Bilirubin Direct Bilirubin AST ALT Alkaline Phosphatase NT-Pro-B Natriuret Pep Total Protein Albumin Lipase Arterial Blood Glucose Ur Specific [place] Vancomycin Trough Coronavirus (PCR) 05/23/21 05/23/21 05/23/21 05:09 10:15 10:15 WBC RBC Hgb Hct MCV MCH RDW Plt Count Lymph % (Auto) Eos % (Auto) Lymph # (Auto) Eos # (Auto) Seg Neutrophils % Seg Neuts % (Manual) Lymphocytes % (Manual) Seg Neutrophils # Man Lymphocytes # (Manual) PT 16.9 H INR 1.24 H ABG pH POC ABG pCO2 POC ABG pO2 ABG pO2 ABG HCO3 ABG O2 Saturation ABG Base Excess ABG Hemoglobin ABG Oxyhemoglobin ABG Sodium ABG Potassium ABG Chloride ABG Glucose Oxyhemoglobin Carboxyhemoglobin Sodium 131 L Potassium Chloride 97.5 L Carbon Dioxide BUN Creatinine < 0.2 L Glucose 248 H POC Glucose 175 H Lactic Acid Calcium 7.4 L Phosphorus Magnesium 1.60 L Total Bilirubin Direct Bilirubin AST ALT Alkaline Phosphatase NT-Pro-B Natriuret Pep Total Protein Albumin Lipase Arterial Blood Glucose Ur Specific [place] Vancomycin Trough Coronavirus (PCR) 05/23/21 05/23/21 05/24/21 10:15 21:46 04:16 WBC RBC Hgb Hct MCV MCH RDW Plt Count Lymph % (Auto) Eos % (Auto) Lymph # (Auto) Eos # (Auto) Seg Neutrophils % Seg Neuts % (Manual) Lymphocytes % (Manual) Seg Neutrophils # Man Lymphocytes # (Manual) PT INR ABG pH POC ABG pCO2 POC ABG pO2 ABG pO2 ABG HCO3 ABG O2 Saturation ABG Base Excess ABG Hemoglobin ABG Oxyhemoglobin ABG Sodium ABG Potassium ABG Chloride ABG Glucose Oxyhemoglobin Carboxyhemoglobin Sodium 130 L Potassium 3.5 L Chloride 97.1 L Carbon Dioxide BUN Creatinine 0.2 L Glucose 235 H POC Glucose 190 H Lactic Acid Calcium 6.8 L Phosphorus Magnesium Total Bilirubin 2.30 H Direct Bilirubin 1.6 H AST 161 H ALT 396 H Alkaline Phosphatase 186 H NT-Pro-B Natriuret Pep Total Protein 4.7 L Albumin 2.0 L Lipase Arterial Blood Glucose Ur Specific [place] Vancomycin Trough Coronavirus (PCR) 05/24/21 05/25/21 05/25/21 05:32 04:25 04:25 WBC 11.7 H RBC 3.28 L Hgb Hct MCV MCH RDW 19.9 H Plt Count Lymph % (Auto) Eos % (Auto) Lymph # (Auto) Eos # (Auto) Seg Neutrophils % Seg Neuts % (Manual) Lymphocytes % (Manual) Seg Neutrophils # Man Lymphocytes # (Manual) PT INR ABG pH POC ABG pCO2 POC ABG pO2 ABG pO2 ABG HCO3 ABG O2 Saturation ABG Base Excess ABG Hemoglobin ABG Oxyhemoglobin ABG Sodium ABG Potassium ABG Chloride ABG Glucose Oxyhemoglobin Carboxyhemoglobin Sodium 135 L Potassium 3.4 L Chloride Carbon Dioxide BUN Creatinine 0.2 L Glucose 105 H POC Glucose 208 H Lactic Acid Calcium 7.6 L Phosphorus Magnesium Total Bilirubin Direct Bilirubin AST ALT Alkaline Phosphatase NT-Pro-B Natriuret Pep Total Protein Albumin Lipase Arterial Blood Glucose Ur Specific [place] Vancomycin Trough Coronavirus (PCR) 05/26/21 05/26/21 05/26/21 11:37 16:57 20:59 WBC RBC Hgb Hct MCV MCH RDW Plt Count Lymph % (Auto) Eos % (Auto) Lymph # (Auto) Eos # (Auto) Seg Neutrophils % Seg Neuts % (Manual) Lymphocytes % (Manual) Seg Neutrophils # Man Lymphocytes # (Manual) PT INR ABG pH POC ABG pCO2 POC ABG pO2 ABG pO2 ABG HCO3 ABG O2 Saturation ABG Base Excess ABG Hemoglobin ABG Oxyhemoglobin ABG Sodium ABG Potassium ABG Chloride ABG Glucose Oxyhemoglobin Carboxyhemoglobin Sodium Potassium Chloride Carbon Dioxide BUN Creatinine Glucose POC Glucose 136 H 214 H 137 H Lactic Acid Calcium Phosphorus Magnesium Total Bilirubin Direct Bilirubin AST ALT Alkaline Phosphatase NT-Pro-B Natriuret Pep Total Protein Albumin Lipase Arterial Blood Glucose Ur Specific [place] Vancomycin Trough Coronavirus (PCR) 05/26/21 05/27/21 05/27/21 23:52 05:40 16:49 WBC RBC Hgb Hct MCV MCH RDW Plt Count Lymph % (Auto) Eos % (Auto) Lymph # (Auto) Eos # (Auto) Seg Neutrophils % Seg Neuts % (Manual) Lymphocytes % (Manual) Seg Neutrophils # Man Lymphocytes # (Manual) PT INR ABG pH POC ABG pCO2 POC ABG pO2 ABG pO2 ABG HCO3 ABG O2 Saturation ABG Base Excess ABG Hemoglobin ABG Oxyhemoglobin ABG Sodium ABG Potassium ABG Chloride ABG Glucose Oxyhemoglobin Carboxyhemoglobin Sodium Potassium Chloride Carbon Dioxide BUN Creatinine Glucose POC Glucose 111 H 144 H 213 H Lactic Acid Calcium Phosphorus Magnesium Total Bilirubin Direct Bilirubin AST ALT Alkaline Phosphatase NT-Pro-B Natriuret Pep Total Protein Albumin Lipase Arterial Blood Glucose Ur Specific [place] Vancomycin Trough Coronavirus (PCR) 05/27/21 05/27/21 05/28/21 21:07 23:57 11:59 WBC RBC Hgb Hct MCV MCH RDW Plt Count Lymph % (Auto) Eos % (Auto) Lymph # (Auto) Eos # (Auto) Seg Neutrophils % Seg Neuts % (Manual) Lymphocytes % (Manual) Seg Neutrophils # Man Lymphocytes # (Manual) PT INR ABG pH POC ABG pCO2 POC ABG pO2 ABG pO2 ABG HCO3 ABG O2 Saturation ABG Base Excess ABG Hemoglobin ABG Oxyhemoglobin ABG Sodium ABG Potassium ABG Chloride ABG Glucose Oxyhemoglobin Carboxyhemoglobin Sodium Potassium Chloride Carbon Dioxide BUN Creatinine Glucose POC Glucose 135 H 157 H 130 H Lactic Acid Calcium Phosphorus Magnesium Total Bilirubin Direct Bilirubin AST ALT Alkaline Phosphatase NT-Pro-B Natriuret Pep Total Protein Albumin Lipase Arterial Blood Glucose Ur Specific [place] Vancomycin Trough Coronavirus (PCR) 05/28/21 05/29/21 05/29/21 17:05 01:03 05:07 WBC RBC Hgb Hct MCV MCH RDW Plt Count Lymph % (Auto) Eos % (Auto) Lymph # (Auto) Eos # (Auto) Seg Neutrophils % Seg Neuts % (Manual) Lymphocytes % (Manual) Seg Neutrophils # Man Lymphocytes # (Manual) PT INR ABG pH POC ABG pCO2 POC ABG pO2 ABG pO2 ABG HCO3 ABG O2 Saturation ABG Base Excess ABG Hemoglobin ABG Oxyhemoglobin ABG Sodium ABG Potassium ABG Chloride ABG Glucose Oxyhemoglobin Carboxyhemoglobin Sodium 148 H D Potassium 3.0 L Chloride 108.0 H Carbon Dioxide BUN Creatinine 0.2 L Glucose 155 H POC Glucose 207 H 204 H Lactic Acid Calcium 7.7 L Phosphorus Magnesium Total Bilirubin Direct Bilirubin AST ALT Alkaline Phosphatase NT-Pro-B Natriuret Pep Total Protein Albumin Lipase Arterial Blood Glucose Ur Specific [place] Vancomycin Trough Coronavirus (PCR) 05/29/21 05/29/21 05/29/21 08:20 11:30 17:53 WBC RBC Hgb Hct MCV MCH RDW Plt Count Lymph % (Auto) Eos % (Auto) Lymph # (Auto) Eos # (Auto) Seg Neutrophils % Seg Neuts % (Manual) Lymphocytes % (Manual) Seg Neutrophils # Man Lymphocytes # (Manual) PT INR ABG pH POC ABG pCO2 POC ABG pO2 ABG pO2 ABG HCO3 ABG O2 Saturation ABG Base Excess ABG Hemoglobin ABG Oxyhemoglobin ABG Sodium ABG Potassium ABG Chloride ABG Glucose Oxyhemoglobin Carboxyhemoglobin Sodium Potassium Chloride Carbon Dioxide BUN Creatinine Glucose POC Glucose 119 H 199 H Lactic Acid Calcium Phosphorus Magnesium Total Bilirubin Direct Bilirubin AST ALT Alkaline Phosphatase NT-Pro-B Natriuret Pep Total Protein Albumin Lipase Arterial Blood Glucose Ur Specific [place] Vancomycin Trough Coronavirus (PCR) Positive A 05/30/21 05/30/21 05/30/21 00:37 05:54 06:50 WBC RBC Hgb Hct MCV MCH RDW Plt Count Lymph % (Auto) Eos % (Auto) Lymph # (Auto) Eos # (Auto) Seg Neutrophils % Seg Neuts % (Manual) Lymphocytes % (Manual) Seg Neutrophils # Man Lymphocytes # (Manual) PT INR ABG pH POC ABG pCO2 POC ABG pO2 ABG pO2 ABG HCO3 ABG O2 Saturation ABG Base Excess ABG Hemoglobin ABG Oxyhemoglobin ABG Sodium ABG Potassium ABG Chloride ABG Glucose Oxyhemoglobin Carboxyhemoglobin Sodium Potassium Chloride Carbon Dioxide BUN Creatinine Glucose POC Glucose 117 H 56 L 157 H Lactic Acid Calcium Phosphorus Magnesium Total Bilirubin Direct Bilirubin AST ALT Alkaline Phosphatase NT-Pro-B Natriuret Pep Total Protein Albumin Lipase Arterial Blood Glucose Ur Specific [place] Vancomycin Trough Coronavirus (PCR) 05/30/21 05/30/21 05/31/21 17:18 23:54 05:27 WBC RBC Hgb Hct MCV MCH RDW Plt Count Lymph % (Auto) Eos % (Auto) Lymph # (Auto) Eos # (Auto) Seg Neutrophils % Seg Neuts % (Manual) Lymphocytes % (Manual) Seg Neutrophils # Man Lymphocytes # (Manual) PT INR ABG pH POC ABG pCO2 POC ABG pO2 ABG pO2 ABG HCO3 ABG O2 Saturation ABG Base Excess ABG Hemoglobin ABG Oxyhemoglobin ABG Sodium ABG Potassium ABG Chloride ABG Glucose Oxyhemoglobin Carboxyhemoglobin Sodium Potassium Chloride Carbon Dioxide BUN Creatinine Glucose POC Glucose 181 H 130 H 112 H Lactic Acid Calcium Phosphorus Magnesium Total Bilirubin Direct Bilirubin AST ALT Alkaline Phosphatase NT-Pro-B Natriuret Pep Total Protein Albumin Lipase Arterial Blood Glucose Ur Specific [place] Vancomycin Trough Coronavirus (PCR) 05/31/21 05/31/21 05/31/21 12:06 17:35 23:56 WBC RBC Hgb Hct MCV MCH RDW Plt Count Lymph % (Auto) Eos % (Auto) Lymph # (Auto) Eos # (Auto) Seg Neutrophils % Seg Neuts % (Manual) Lymphocytes % (Manual) Seg Neutrophils # Man Lymphocytes # (Manual) PT INR ABG pH POC ABG pCO2 POC ABG pO2 ABG pO2 ABG HCO3 ABG O2 Saturation ABG Base Excess ABG Hemoglobin ABG Oxyhemoglobin ABG Sodium ABG Potassium ABG Chloride ABG Glucose Oxyhemoglobin Carboxyhemoglobin Sodium Potassium Chloride Carbon Dioxide BUN Creatinine Glucose POC Glucose 170 H 109 H 136 H Lactic Acid Calcium Phosphorus Magnesium Total Bilirubin Direct Bilirubin AST ALT Alkaline Phosphatase NT-Pro-B Natriuret Pep Total Protein Albumin Lipase Arterial Blood Glucose Ur Specific [place] Vancomycin Trough Coronavirus (PCR) 06/02/21 06/02/21 06/02/21 04:28 05:36 08:59 WBC RBC 3.31 L Hgb Hct MCV 100 H MCH RDW 24.7 H Plt Count Lymph % (Auto) 12.8 L Eos % (Auto) 10.2 H Lymph # (Auto) 0.6 L Eos # (Auto) 0.5 H Seg Neutrophils % 75.5 H Seg Neuts % (Manual) Lymphocytes % (Manual) Seg Neutrophils # Man Lymphocytes # (Manual) PT INR ABG pH 7.258 L 7.251 L POC ABG pCO2 73.4 H 67.7 H POC ABG pO2 33.0 L 189.6 H ABG pO2 ABG HCO3 ABG O2 Saturation ABG Base Excess ABG Hemoglobin 11.8 L 11.8 L ABG Oxyhemoglobin 48.8 L ABG Sodium 146.7 H 146.3 H ABG Potassium 3.1 L ABG Chloride 109.0 H ABG Glucose 64 L Oxyhemoglobin Carboxyhemoglobin 1.6 H Sodium Potassium Chloride Carbon Dioxide BUN Creatinine Glucose POC Glucose Lactic Acid Calcium Phosphorus Magnesium Total Bilirubin Direct Bilirubin AST ALT Alkaline Phosphatase NT-Pro-B Natriuret Pep Total Protein Albumin Lipase Arterial Blood Glucose 64 L Ur Specific [place] Vancomycin Trough Coronavirus (PCR) 06/02/21 06/02/21 06/02/21 08:59 11:39 14:50 WBC RBC Hgb Hct MCV MCH RDW Plt Count Lymph % (Auto) Eos % (Auto) Lymph # (Auto) Eos # (Auto) Seg Neutrophils % Seg Neuts % (Manual) Lymphocytes % (Manual) Seg Neutrophils # Man Lymphocytes # (Manual) PT INR ABG pH 7.339 L POC ABG pCO2 POC ABG pO2 ABG pO2 91.4 H ABG HCO3 26.2 H ABG O2 Saturation ABG Base Excess ABG Hemoglobin 11.3 L ABG Oxyhemoglobin ABG Sodium ABG Potassium ABG Chloride ABG Glucose Oxyhemoglobin 93.7 L Carboxyhemoglobin Sodium 148 H Potassium 2.9 L* Chloride 111.1 H Carbon Dioxide BUN Creatinine 0.3 L Glucose 29 L* POC Glucose 140 H Lactic Acid Calcium 7.7 L Phosphorus Magnesium 1.50 L Total Bilirubin Direct Bilirubin AST ALT Alkaline Phosphatase NT-Pro-B Natriuret Pep Total Protein Albumin Lipase Arterial Blood Glucose Ur Specific [place] Vancomycin Trough Coronavirus (PCR) 06/02/21 06/02/21 06/02/21 17:49 19:47 21:30 WBC RBC Hgb Hct MCV MCH RDW Plt Count Lymph % (Auto) Eos % (Auto) Lymph # (Auto) Eos # (Auto) Seg Neutrophils % Seg Neuts % (Manual) Lymphocytes % (Manual) Seg Neutrophils # Man Lymphocytes # (Manual) PT INR ABG pH POC ABG pCO2 POC ABG pO2 ABG pO2 ABG HCO3 ABG O2 Saturation ABG Base Excess ABG Hemoglobin ABG Oxyhemoglobin ABG Sodium ABG Potassium ABG Chloride ABG Glucose Oxyhemoglobin Carboxyhemoglobin Sodium Potassium Chloride 109.6 H Carbon Dioxide 21 L D BUN Creatinine Glucose 123 H POC Glucose 67 L 117 H Lactic Acid Calcium 7.5 L Phosphorus 5.20 H D Magnesium 2.90 H Total Bilirubin Direct Bilirubin AST ALT Alkaline Phosphatase NT-Pro-B Natriuret Pep Total Protein Albumin Lipase Arterial Blood Glucose Ur Specific [place] Vancomycin Trough Coronavirus (PCR) 01/01/1406/02/21 06/02/21 21:30 22:00 23:10 WBC RBC Hgb Hct MCV MCH RDW Plt Count Lymph % (Auto) Eos % (Auto) Lymph # (Auto) Eos # (Auto) Seg Neutrophils % Seg Neuts % (Manual) Lymphocytes % (Manual) Seg Neutrophils # Man Lymphocytes # (Manual) PT INR ABG pH POC ABG pCO2 POC ABG pO2 ABG pO2 ABG HCO3 ABG O2 Saturation ABG Base Excess ABG Hemoglobin ABG Oxyhemoglobin ABG Sodium ABG Potassium ABG Chloride ABG Glucose Oxyhemoglobin Carboxyhemoglobin Sodium 147 H Potassium Chloride 111.7 H Carbon Dioxide BUN Creatinine Glucose 105 H POC Glucose 122 H Lactic Acid Calcium 7.5 L Phosphorus Magnesium Total Bilirubin Direct Bilirubin AST 74 H ALT 96 H Alkaline Phosphatase 207 H NT-Pro-B Natriuret Pep 2326 H Total Protein 5.0 L Albumin 2.0 L Lipase Arterial Blood Glucose Ur Specific [place] Vancomycin Trough Coronavirus (PCR) 06/03/21 06/03/21 06/03/21 04:45 04:45 04:45 WBC 13.6 H RBC 3.44 L Hgb Hct MCV 102 H MCH RDW 25.4 H Plt Count Lymph % (Auto) Eos % (Auto) Lymph # (Auto) Eos # (Auto) Seg Neutrophils % Seg Neuts % (Manual) Lymphocytes % (Manual) Seg Neutrophils # Man Lymphocytes # (Manual) PT INR ABG pH POC ABG pCO2 POC ABG pO2 ABG pO2 ABG HCO3 ABG O2 Saturation ABG Base Excess ABG Hemoglobin ABG Oxyhemoglobin ABG Sodium ABG Potassium ABG Chloride ABG Glucose Oxyhemoglobin Carboxyhemoglobin Sodium Potassium Chloride Carbon Dioxide BUN Creatinine Glucose 151 H POC Glucose Lactic Acid Calcium 7.6 L Phosphorus 6.70 H D Magnesium Total Bilirubin Direct Bilirubin AST 68 H ALT 103 H Alkaline Phosphatase 226 H NT-Pro-B Natriuret Pep Total Protein 6.0 L Albumin 2.0 L Lipase Arterial Blood Glucose Ur Specific [place] Vancomycin Trough Coronavirus (PCR) 06/03/21 06/03/21 06/03/21 05:02 10:00 11:46 WBC RBC Hgb Hct MCV MCH RDW Plt Count Lymph % (Auto) Eos % (Auto) Lymph # (Auto) Eos # (Auto) Seg Neutrophils % Seg Neuts % (Manual) Lymphocytes % (Manual) Seg Neutrophils # Man Lymphocytes # (Manual) PT INR ABG pH 7.312 L POC ABG pCO2 POC ABG pO2 ABG pO2 68.5 L ABG HCO3 ABG O2 Saturation 93.0 L ABG Base Excess ABG Hemoglobin 11.5 L ABG Oxyhemoglobin ABG Sodium ABG Potassium ABG Chloride ABG Glucose Oxyhemoglobin 90.1 L Carboxyhemoglobin Sodium Potassium Chloride Carbon Dioxide BUN Creatinine Glucose POC Glucose 139 H 150 H Lactic Acid Calcium Phosphorus Magnesium Total Bilirubin Direct Bilirubin AST ALT Alkaline Phosphatase NT-Pro-B Natriuret Pep Total Protein Albumin Lipase Arterial Blood Glucose Ur Specific [place] Vancomycin Trough Coronavirus (PCR) 06/03/21 06/03/21 06/04/21 17:19 23:01 04:00 WBC RBC 2.99 L Hgb 9.7 L Hct 30.0 L MCV 101 H MCH 33 H RDW 25.3 H Plt Count Lymph % (Auto) Eos % (Auto) Lymph # (Auto) Eos # (Auto) Seg Neutrophils % Seg Neuts % (Manual) Lymphocytes % (Manual) Seg Neutrophils # Man Lymphocytes # (Manual) PT INR ABG pH POC ABG pCO2 POC ABG pO2 ABG pO2 ABG HCO3 ABG O2 Saturation ABG Base Excess ABG Hemoglobin ABG Oxyhemoglobin ABG Sodium ABG Potassium ABG Chloride ABG Glucose Oxyhemoglobin Carboxyhemoglobin Sodium Potassium Chloride Carbon Dioxide BUN Creatinine Glucose POC Glucose 135 H 164 H Lactic Acid Calcium Phosphorus Magnesium Total Bilirubin Direct Bilirubin AST ALT Alkaline Phosphatase NT-Pro-B Natriuret Pep Total Protein Albumin Lipase Arterial Blood Glucose Ur Specific [place] Vancomycin Trough Coronavirus (PCR) 06/04/21 06/04/21 06/04/21 04:40 05:02 12:09 WBC RBC Hgb Hct MCV MCH RDW Plt Count Lymph % (Auto) Eos % (Auto) Lymph # (Auto) Eos # (Auto) Seg Neutrophils % Seg Neuts % (Manual) Lymphocytes % (Manual) Seg Neutrophils # Man Lymphocytes # (Manual) PT INR ABG pH POC ABG pCO2 POC ABG pO2 ABG pO2 ABG HCO3 ABG O2 Saturation ABG Base Excess ABG Hemoglobin ABG Oxyhemoglobin ABG Sodium ABG Potassium ABG Chloride ABG Glucose Oxyhemoglobin Carboxyhemoglobin Sodium Potassium Chloride Carbon Dioxide BUN 19 H Creatinine 0.5 L Glucose 150 H POC Glucose 137 H 160 H Lactic Acid Calcium 8.0 L Phosphorus Magnesium Total Bilirubin Direct Bilirubin AST ALT 70 H Alkaline Phosphatase 204 H NT-Pro-B Natriuret Pep Total Protein 5.7 L Albumin 1.8 L Lipase Arterial Blood Glucose Ur Specific [place] Vancomycin Trough Coronavirus (PCR) Chest x-ray: other (none today) Allied health notes reviewed: nursing
--- NOTE | 2021-06-04 16:18 | Progress Note ---
Assessment and Plan Assessment and plan: This is a 48-year-old female with COPD, pancreatic cancer with radiation s/p pancreatic stent placement, pulmonary fibrosis, chronic respiratory failure on 2 L nasal cannula admitted with sepsis, transaminitis and lactic acidosis now with COVID 19 PNA. Neuro: Sedated -Sedated with propofol and fentanyl -RASS goal 0 to -1 -Avoid delirium -Reorientation as needed -Maintain sleep-wake cycle -Daily SAT and SBT when appropriate CV: Hypotension, h/o HTN -Hold home htn medications -Vasopressor support with levo -maintain MAP > 65mmhg -BP monitoring per protocol -Hold home htn medications -s/p IV Lasix X 3 days Respiratory: Acute on chronic respiratory failure, h/o pulmonary fibrosis, acute on chronic respiratory failure on home O2 of 2 L nasal cannula -Intubated on 06/02 with 7.5 oett with 22 @ lips -AM vent settings: AC Rate 26, TV 400, Peep 8, FiO2 85% -[facility] decreased FiO2 and increased PEEP -VAP bundle -s/p Bipap and Optiflow -Pulmicort, brovana -Daily SBT and SAT trials as tolerated -Daily ABG and CXR per [facility] -Continuos SPO2 monitoring -goal above 92% GI: Transaminitis, protein calorie malnutrition, biliary dilation, r/o cholangitis, h/o pancreatic cancer s/p stent placement -CT abdomen/pelvis showed pancreatic cancer with metallic stent with possible occlusion, mild pelvic fluid and mild colonic thickening -GI consulted, appreciate recommendations -MRCP pending-> plan for once respiratory status stable -If stent occlusion/biliary obstruction would recommend IR consult for PTC drain per GI -Ntr consult for TF -ST evaluation -PPI -BR: senokat -24-hour +929 mL -Acute hepatitis panel negative -Trend LFTs -Abd US shows findings similar to hepatomegaly and steatosis without significant abnormalities in the right quadrant -Bentyl QID : NAD -Strict intake and output -Almaraz in place -Daily weights -Renally dose meds -Avoid nephrotoxins -Trend BMP Endo: Hyperglycemia, s/p hypoglycemia -Hypoglycemia protocol -Avoid hypoglycemia -SSI every 6 hours -Lantus, titrate as needed ID: Septic shock, COVID 19 PNA, Lactic acidosis (improving) -COVID 19 PCR (+), initial COVID 19 PCR (-) -Blood cultures x2 no growth to date -Remdisivir 06/03-06/06 -trend LFTS -Dexamethasone 05/28-06/07 -s/p IV meropenem -Contact/droplet precautions -Monitor WBC and fever curve -Vitamin C/D/zinc -Trend COVID 19 inflammatory marker Heme: Elevated INR -Trend CBC -Transfuse for hemoglobin less than 7 -SCD to bilateral lower extremities while in bed -Lovenox subcu -BLE doppplar US pending -RUE swelling- RUE doppler neg DVT Oncology: h/o pancreatic head cancer -F/U with outpatient oncologist -Currently on radiation -Not a surgical candidate per GI -Right chest post accessed The high probability of a clinically significant, sudden or life threatening deterioration of the [resp, GI] system(s) required my full and direct attention, intervention and personal management. The aggregate critical care time was [60] minutes. This time is in addition to time spent performing reported procedures but includes the following: [x] Data Review and interpretation [x] Patient assessment and monitoring of vital signs [x] Documentation [x] Medication orders and management Disposition Plan: icu Total Time Spent with Patient (Minutes): 60 History Interval history: This is a 51-year-old female with COPD, pancreatic cancer and radiation, s/p pancreatic stent placement, pulmonary fibrosis, hypertension and chronic respiratory failure on 2 L oxygen via nasal cannula who presented to emergency department on 05/11 with complaints of right upper quadrant pain which started approximately at 0200 with nausea and vomiting. Work-up in the emergency d epartment included a CTA chest which showed no pulmonary embolism, mild fluid- filled esophagus and distended stomach with bilateral interstitial opacity in the chest, and CT abdomen/pelvis with contrast which showed persistent pancreatic carcinoma with indwelling metallic stent which is suspected to be occluded. Lab work revealed leukocytosis, transaminitis and lactic acidosis. Patient became hypotensive in the emergency department and required 3 L of IV fluid and was eventually started on vasopressors after placement of femoral central line. Patient was started on empiric antibiotics. Admitted to the hospitalist service with consults to GI and CCM for transaminitis, possible sepsis, and lactic acidosis. she was set to discharge to hospice however she test positive to COVID 19 and was eventually intubated. 05/12: Patient remains on high-dose Levophed and vasopressin. Given 1 L LR bolus. GI would like an MRCP to be conducted which has been ordered. Patient cleared for sips of water. Added Tessalon due to severe cough. Potassium repleted. Covid PCR negative. 05/13: Remains on Levophed and vasopressin has been off since yesterday evening. Started on stress dose steroids. MRCP pending. Hypokalemia, hypomagnesemia and hypophosphatemia repleted. Liver enzymes trending down. Started on D5 normal saline yesterday. 05/14: Patient with worsen respiratory status this am, tachypneic with increased O2 requirement. On full support on the Bipap this am with worsening diffuse bilateral opacities on CXR, s/p X1 dose of IV lasix overnight. Patient remains afebrile with no leukocytosis. Will continue IV Lasix X3 doses, f/u CXR in the am. D/W CCM due to patient worsening respiratory status hold on MRCP for today. Patient is off Levophed this am, leave pressors on standby might need to be put back on low dose pressors with IV diuretic. Patient also noted with Rt. fem CVC which was inserted in the ED, most likely due to be change, unsuccessfult PICC by IVT today and patient is refusing Port access at this time. 05/15: Patient remains on continuous Bipap overnight, desat when bipap is removed for mouth care. Plan to wean Fio2 as tolerated for SPO2 goal above 90%. Febrile overnight, TMAX 101.4, on IV abx zosyn, repeat blood culture ordered. Low K and phosph repleted, repeat labs in the am. 05/16: Patient back on full support on the Bipap, still not tolerating FiO2 wean, patient desat in the 80s. D/w [facility] plan to continue continuous bipap for now, patient going on over 4 days with no nutrition plan to initiate TPN tomorrow. D10w gtt added for hypoglycemia. Patient platelet continue to steadily drop, given patient's history with continue AC for now, H&H is stable, no s/s of any active bleeding. Electrolytes repleted, will continue to trend CBC, BMP, mg, and phos. MRCP canceled, plan to reorder once patient's respiratory status is more stable. 05/17: Patient remains on continuous Bipap. Patient remains on low dose Levophed, plan to wean off pressors as tolerated for a MAP above 65. Clinimix initiated overnight, plan to start TPN tonight. Hyperglycemic overnight, SSI was initiated. Low phos repleted, repeat lab in the am. 05/18: Down to 60% FIo2 on the Bipap, SPO2 above 97%. Off pressros this am, TPN is running. Patient is now hyperglycemic, SSI adjusted. Consider basal dose, lantus if hyperglycemia persist. This am labs noted, hyperkalemia and really high glucose noted totally different from normal trend, orders placed for redraw. 05/19: Overnight events noted. Started on PRN haldol for agitation. Patient placed on heated high Flow at 100%, 40L SPO2 at 100%. Continue to wean Fio2 as tolerated for SPO2 for SPO2 above 92%. Continue TPN for now. Patient still hyperglycemic basal dose lantus added Qhs. 05/20: Patient is tolerating HHFL NC, SPO2 above 95%. Continue HHFL NC during and Bipap at night. Still on TPN for nutrition, hyperglycemia persists- basal insulin increased. Low K and phosp was repleted, repeat lab in the am. 05/21: Patient unable to tolerate OptiFlow for more than couple hours and was placed back on BiPAP due to desaturation. Patient remains on TPN for nutrition which was held today due to hyperkalemia. P.m. BMP ordered but not collected. Patient refused to have port accessed and PICC line ordered. Down grading to [facility] status 05/22: abdominal ultrasound shows findings of emergency megaly and steatosis wi thout other significant abnormality in the right upper quadrant. ST eval ordered and Ntr consult for cyclic TF. midline ordered 05/21 abdominal ultrasound shows findings of emergency megaly and steatosis without other significant abnormality in the right upper quadrant. ST eval ordered and Ntr consult for cyclic TF. midline ordered 05/23/ Patient with acute on chronic resp failure, COPD, pancreatic cancer. She has been transferred to [facility]. She is on BIPAP Hypomag. Replace and recheck in am 05/24/21 Patient with acute on chronic resp failure. Still on BIPAP. To start tube feeding 05/25/21: Patient with acute on chronic respiratory failure, She desaturated down to Oxygen sat 85% today, Will order CT Angio to r/o pulmonary embolism 05/26/21: patient remains on bipap, o2 sat in 90s. CT angio not completed yesterday as patient could not lay flat. Add dilaudid for improved pain control to patient medications and advised staff analyst to re-attempt CT angio. Patient has a poor prognosis given pulmonary fibrosis and pancreatic cancer. Will likely re- visit talks of palliaitive care as she may benefit more from this. 05/27/21: Remains bipap dependent. D/w patient regarding comfort care/hospice, she is interested. CM consulted. Patient would still like to remain full code 05/28/21: Remains bipap dependent. Spoke with Eriberto (daughter) who states that she is in agreement for comfort measures for her mother. Coordinating with case management for inpatient hospice referral. Daughter also requested to see her mother in person. Unfortunately due to visitation limitations as a result of the COVID-19 pandemic, daughter will only be able to communicate via telecommunication devices at this time. Care staff was notified the patient is Syriac-speaking and to call the daughter if they would like to communicate with the patient. 05/29/2021: Spoke with Eriberto (daughter) who states that she is in agreement for comfort measures for her mother. Referral made to [facility]. Patient will discharge to inpatient hospice today. 05/30/2021: Patient's covid test results returned positive. Patient's pending discharge was cancelled as inpatient hospice will not accept a covid + patient. Case Management met with patient's daughter to update on status. Patient's p rognosis remains poor. Patient on BiPAP (IPAP 15, EPAP 10, FiO2 85%). Patient started on steroids yesterday and we will start remdesivir today. I discussed the case with pulmonary. Patient will remain a full code I discussed the case with the daughter. 05/31/2021: Patient remains on BiPAP (IPAP 15, EPAP 10, FiO2 80%). Patient's prognosis remains poor. Continue steroids and remdesivir. 06/01/2021. Patient currently off BiPAP and with high flow nasal cannula/nonrebreather 40 L O2 with FiO2 of 100%. Continue BiPAP at night. Patient will be intubated and placed on mechanical ventilation if she decompensates. Patient's prognosis remains poor. Continue steroids and remdesivir. Pulmonary Taper dexamethasone to 4 mg IV daily. Follow-up serial chest x-ray and ABGs. Patient with gentle diuresis with Lasix 20 mg IV daily. 06/02: Patient intubated and sedated, RASS -5. Now hypotensive with tachycardia, on levophed gtt, continue continuous IVF and titrate pressors for MAP above 65. Hypokalemia and hypomagnesemia repleted, repeat labs 4hrs post treatment. Severely hypoglycemic this am, per RN TF has been on hold since patient was on Bipap. Low BG treated per hypoglycemic protocol, plan to resume TF today. 06/03: RASS of 0 to -1 this am, following commands, remains on sedation. Mirza in WBCs this am, patient remains afebrile, blood culture and sputum culture pending. Probably reactive, patient on IV steroids, remdesevir starting tonight. Continue to trend CBC. Conference call with CCM and patient's son and daughter today. All questions and concerns were addressed. 06/04: started on stress dose steroids, BLE dopplars pending, Remove almaraz and request records. Hospitalist Physical - Constitutional Vitals: Temp Pulse Resp BP Pulse Ox 98.6 F 79 19 94/62 97 06/04/21 12:00 06/04/21 15:45 06/04/21 15:45 06/04/21 15:45 06/04/21 15:45 General appearance: Present: no acute distress, other (Intubated and Sedated) - EENT Eyes: Present: PERRL, EOM intact ENT: dentition normal - Neck Neck: Present: normal ROM - Respiratory Respiratory effort: normal Respiratory: bilateral: diminished - Cardiovascular Rhythm: regular Heart Sounds: Present: S1 & S2. Absent: systolic murmur, diastolic murmur - Extremities Extremities: no ischemia, pulses intact, pulses symmetrical, normal temperature, normal color Peripheral Pulses: within normal limits - Abdominal General gastrointestinal: soft, non-tender, non-distended, normal bowel sounds - Integumentary Integumentary: Present: warm, dry - Psychiatric Psychiatric: other (sedated) - Neurologic Neurologic: other (intact cough/gag, PERRL) - Allied Health Allied health notes reviewed: nursing, RT, social work Results - Labs CBC & Chem 7: 06/04/21 04:00 06/04/21 04:40 Labs: Laboratory Last Values WBC 10.8 K/mm3 (4.5-11.0) 06/04/21 04:00 RBC 2.99 M/mm3 (3.65-5.03) L 06/04/21 04:00 Hgb 9.7 gm/dl (10.1-14.3) L 06/04/21 04:00 Hct 30.0 % (30.3-42.9) L 06/04/21 04:00 MCV 101 fl (79-97) H 06/04/21 04:00 MCH 33 pg (28-32) H 06/04/21 04:00 MCHC 32 % (30-34) 06/04/21 04:00 RDW 25.3 % (13.2-15.2) H 06/04/21 04:00 Plt Count 165 K/mm3 (140-440) 06/04/21 04:00 Lymph % (Auto) 12.8 % (13.4-35.0) L 06/02/21 08:59 [place] % (Auto) 1.0 % (0.0-7.3) 06/02/21 08:59 Eos % (Auto) 10.2 % (0.0-4.3) H 06/02/21 08:59 Baso % (Auto) 0.5 % (0.0-1.8) 06/02/21 08:59 Lymph # (Auto) 0.6 K/mm3 (1.2-5.4) L 06/02/21 08:59 [place] # (Auto) 0.0 K/mm3 (0.0-0.8) 06/02/21 08:59 Eos # (Auto) 0.5 K/mm3 (0.0-0.4) H 06/02/21 08:59 Baso # (Auto) 0.0 K/mm3 (0.0-0.1) 06/02/21 08:59 Add Manual Diff Complete 05/12/21 04:08 Total Counted 200 05/12/21 04:08 Seg Neutrophils % 75.5 % (40.0-70.0) H 06/02/21 08:59 Seg Neuts % (Manual) 85.5 % (40.0-70.0) H 05/12/21 04:08 Band Neutrophils % 8.5 % 05/12/21 04:08 Lymphocytes % (Manual) 2.0 % (13.4-35.0) L 05/12/21 04:08 Monocytes % (Manual) 3.0 % (0.0-7.3) 05/12/21 04:08 Eosinophils % (Manual) 1.0 % (0.0-4.3) 05/12/21 04:08 Nucleated RBC % Not Reportable 05/12/21 04:08 Seg Neutrophils # 3.6 K/mm3 (1.8-7.7) 06/02/21 08:59 Seg Neutrophils # Man 19.5 K/mm3 (1.8-7.7) H 05/12/21 04:08 Band Neutrophils # 1.9 K/mm3 05/12/21 04:08 Lymphocytes # (Manual) 0.5 K/mm3 (1.2-5.4) L 05/12/21 04:08 Abs React Lymphs (Man) 0.0 K/mm3 05/12/21 04:08 Monocytes # (Manual) 0.7 K/mm3 (0.0-0.8) 05/12/21 04:08 Eosinophils # (Manual) 0.2 K/mm3 (0.0-0.4) 05/12/21 04:08 Basophils # (Manual) 0.0 K/mm3 (0.0-0.1) 05/12/21 04:08 Metamyelocytes # 0.0 K/mm3 05/12/21 04:08 Myelocytes # 0.0 K/mm3 05/12/21 04:08 Promyelocytes # 0.0 K/mm3 05/12/21 04:08 Blast Cells # 0.0 K/mm3 05/12/21 04:08 WBC Morphology Not Reportable 05/12/21 04:08 Hypersegmented Neuts Not Reportable 05/12/21 04:08 Hyposegmented Neuts Not Reportable 05/12/21 04:08 Hypogranular Neuts Not Reportable 05/12/21 04:08 Smudge Cells Not Reportable 05/12/21 04:08 Toxic Granulation Not Reportable 05/12/21 04:08 Toxic Vacuolation Not Reportable 05/12/21 04:08 Dohle Bodies Not Reportable 05/12/21 04:08 Pelger-Huet Anomaly Not Reportable 05/12/21 04:08 Elizabeth Rods Not Reportable 05/12/21 04:08 Platelet Estimate Consistent w auto 05/12/21 04:08 Clumped Platelets Not Reportable 05/12/21 04:08 Plt Clumps, EDTA Not Reportable 05/12/21 04:08 Large Platelets Not Reportable 05/12/21 04:08 Giant Platelets Not Reportable 05/12/21 04:08 Platelet Satelliting Not Reportable 05/12/21 04:08 Plt Morphology Comment Not Reportable 05/12/21 04:08 RBC Morphology Not Reportable 05/12/21 04:08 Dimorphic RBCs Not Reportable 05/12/21 04:08 Polychromasia Not Reportable 05/12/21 04:08 Hypochromasia Not Reportable 05/12/21 04:08 Poikilocytosis Not Reportable 05/12/21 04:08 Anisocytosis 1+ 05/12/21 04:08 Microcytosis Not Reportable 05/12/21 04:08 Macrocytosis Not Reportable 05/12/21 04:08 Spherocytes Not Reportable 05/12/21 04:08 Pappenheimer Bodies Not Reportable 05/12/21 04:08 Sickle Cells Not Reportable 05/12/21 04:08 Target Cells Not Reportable 05/12/21 04:08 Tear Drop Cells Not Reportable 05/12/21 04:08 Ovalocytes Not Reportable 05/12/21 04:08 Helmet Cells Not Reportable 05/12/21 04:08 [place] Bodies Not Reportable 05/12/21 04:08 [place] Rings Not Reportable 05/12/21 04:08 [place] Cells Not Reportable 05/12/21 04:08 Bite Cells Not Reportable 05/12/21 04:08 Crenated Cell Not Reportable 05/12/21 04:08 Elliptocytes Not Reportable 05/12/21 04:08 Acanthocytes (Spur) Not Reportable 05/12/21 04:08 Rouleaux Not Reportable 05/12/21 04:08 Hemoglobin C Crystals Not Reportable 05/12/21 04:08 Schistocytes Not Reportable 05/12/21 04:08 Malaria parasites Not Reportable 05/12/21 04:08 [place] Bodies Not Reportable 05/12/21 04:08 Hem Pathologist Commnt No 05/12/21 04:08 PT 16.9 Sec. (12.2-14.9) H 05/23/21 10:15 INR 1.24 (0.87-1.13) H 05/23/21 10:15 ABG pH 7.361 (7.320-7.450) 06/04/21 10:00 POC ABG pCO2 52.2 mmHg (32.0-48.0) H 06/04/21 10:00 ABG pCO2 50.3 mm Hg 06/03/21 10:00 POC ABG pO2 82.9 mmHg (83-108) L 06/04/21 10:00 ABG pO2 68.5 mm Hg (80.0-90.0) L 06/03/21 10:00 POC ABG HCO3 28.9 06/04/21 10:00 ABG HCO3 24.8 mmol/L (20.0-26.0) 06/03/21 10:00 ABG O2 Saturation 96.1 (0-100) 06/04/21 10:00 ABG O2 Content 14.6 (0.0-44) 06/03/21 10:00 POC ABG Base Excess 2.4 06/04/21 10:00 ABG Base Excess -1.7 mmol/L (-2.0-3.0) 06/03/21 10:00 ABG Hemoglobin 13.7 (12.0-17.5) 06/04/21 10:00 ABG Oxyhemoglobin 94.2 (94-98) 06/04/21 10:00 ABG Carboxyhemoglobin 2.5 % (0.0-5.0) 06/03/21 10:00 ABG Methemoglobin 0.3 (0.0-1.5) 06/04/21 10:00 ABG Sodium 135.4 mmol/L (136.0-145.0) L 06/04/21 10:00 ABG Potassium 4.1 mmol/L (3.40-4.50) 06/04/21 10:00 ABG Chloride 99.0 mmol/L (98-107) 06/04/21 10:00 ABG Glucose 163 mg/dL (65-95) H 06/04/21 10:00 Oxyhemoglobin 90.1 % (95.0-99.0) L 06/03/21 10:00 Carboxyhemoglobin 1.7 (0.5-1.5) H 06/04/21 10:00 FiO2 85 % 06/03/21 10:00 FiO2 % 85 06/04/21 10:00 Sodium 139 mmol/L (137-145) 06/04/21 04:40 Potassium 4.3 mmol/L (3.6-5.0) 06/04/21 04:40 Chloride 99.2 mmol/L (98-107) 06/04/21 04:40 Carbon Dioxide 28 mmol/L (22-30) 06/04/21 04:40 Anion Gap 16 mmol/L 06/04/21 04:40 BUN 19 mg/dL (7-17) H 06/04/21 04:40 Creatinine 0.5 mg/dL (0.6-1.2) L 06/04/21 04:40 Estimated GFR > 60 ml/min 06/04/21 04:40 BUN/Creatinine Ratio 38 % 06/04/21 04:40 Glucose 150 mg/dL (65-100) H 06/04/21 04:40 POC Glucose 160 mg/dL (70-105) H 06/04/21 12:09 Hemoglobin A1c 5.2 % (4-6) 05/12/21 04:08 Lactic Acid 3.30 mmol/L (0.7-2.0) H* 05/12/21 Unknown Calcium 8.0 mg/dL (8.4-10.2) L 06/04/21 04:40 Phosphorus 4.10 mg/dL (2.5-4.5) D 06/04/21 04:40 Magnesium 1.90 mg/dL (1.7-2.3) 06/04/21 04:40 Total Bilirubin 0.80 mg/dL (0.1-1.2) 06/04/21 04:40 Direct Bilirubin 1.6 mg/dL (0-0.2) H 05/23/21 10:15 Indirect Bilirubin 0.7 mg/dL 05/23/21 10:15 AST 29 units/L (5-40) 06/04/21 04:40 ALT 70 units/L (7-56) H 06/04/21 04:40 Alkaline Phosphatase 204 units/L (35-129) H 06/04/21 04:40 NT-Pro-B Natriuret Pep 2326 pg/mL (0-900) H 06/02/21 22:00 Total Protein 5.7 g/dL (6.3-8.2) L 06/04/21 04:40 Albumin 1.8 g/dL (3.9-5) L 06/04/21 04:40 Albumin/Globulin Ratio 0.5 % 06/04/21 04:40 Triglycerides 90 mg/dL (2-149) 05/23/21 10:15 Lipase 3 units/L (13-60) L 05/11/21 05:43 Arterial Blood Glucose 163 mg/dL (65-95) H 06/04/21 10:00 Arterial Blood Ionized Calcium 4.6 mg/dL (4.6-5.3) 06/04/21 10:00 Urine Color [place] (Yellow) 05/11/21 11:18 Urine Turbidity Clear (Clear) 05/11/21 11:18 Urine pH 6.0 (5.0-7.0) 05/11/21 11:18 Ur Specific [place] 1.035 (1.003-1.030) H 05/11/21 11:18 Urine Protein 100 mg/dl mg/dL (Negative) 05/11/21 11:18 Urine Glucose (UA) Neg mg/dL (Negative) 05/11/21 11:18 Urine Ketones Neg mg/dL (Negative) 05/11/21 11:18 Urine Blood Neg (Negative) 05/11/21 11:18 Urine Nitrite Neg (Negative) 05/11/21 11:18 Urine Bilirubin Neg (Negative) 05/11/21 11:18 Urine Urobilinogen < 2.0 mg/dL (<2.0) 05/11/21 11:18 Ur Leukocyte Esterase Neg (Negative) 05/11/21 11:18 Urine WBC (Auto) 2.0 /HPF (0.0-6.0) 05/11/21 11:18 Urine RBC (Auto) 1.0 /HPF (0.0-6.0) 05/11/21 11:18 Urine Mucus Few /HPF 05/11/21 11:18 Vancomycin Trough 25.3 ug/mL (5.0-20.0) H 05/14/21 15:20 Coronavirus (PCR) Positive (Negative) A 05/29/21 08:20 Hepatitis A IgM Ab Non-reactive (NonReactive) 05/12/21 12:30 Hep Bs Antigen Nonreactive (Negative) 05/12/21 12:30 Hep B Core IgM Ab Non-reactive (NonReactive) 05/12/21 12:30 Hepatitis C Antibody Non-reactive (NonReactive) 05/12/21 12:30 Microbiology: Microbiology 06/03/21 00:41 Tracheal Aspirate Sputum Culture - Preliminary Almaraz/IV: Voiding Method Indwelling Catheter Active Medications - Current Medications Current Medications: Generic Name Dose Route Start Last Admin Trade Name Freq PRN Reason Stop Dose Admin Acetaminophen 650 mg 05/11/21 21:40 05/14/21 20:06 Acetaminophen 325 Mg Tab PO 650 mg Q4H PRN Administration Pain MILD(1-3)/Fever >100.5/WOODS Lipase/Protease/Amylase 1 each 05/22/21 16:30 Lipase 10,500/Protease 25,000/Amylase 43,750 (Units) Dr Baker FEEDTUBE PRN PRN For Clogged Feeding Tube Arformoterol Tartrate 15 mcg 05/12/21 08:00 06/04/21 13:44 Arformoterol 15 Mcg/2 Ml Nebu IH Not Given Q12HRT ABRAHAN Ascorbic Acid 500 mg 06/02/21 22:00 06/04/21 09:38 Ascorbic Acid 500 Mg Tab PO 500 mg BID ABRAHAN Administration Budesonide 0.5 mg 05/12/21 08:00 06/04/21 13:44 Budesonide 0.5 Mg/2 Ml Nebu IH Not Given Q12HRT ABRAHAN Dextrose 50 ml 05/12/21 11:57 06/02/21 18:34 Dextrose 50% In Water (25gm) 50 Ml Syringe IV 50 ml Q30MIN PRN Administration Hypoglycemia Protocol Dicyclomine HCl 10 mg 05/23/21 14:00 06/04/21 14:46 Dicyclomine 10 Mg Cap PO 10 mg QID ABRAHAN Administration Enoxaparin Sodium 40 mg 05/30/21 22:00 06/03/21 21:16 Enoxaparin 40 Mg/0.4 Ml Inj SUB-Q 40 mg QDAY@2200 ABRAHAN Administration Fentanyl 50 mcg 06/02/21 05:20 Fentanyl 100 Mcg/2 Ml Inj IV Q10MIN PRN ANALGESIA Furosemide 20 mg 06/02/21 20:00 06/04/21 09:38 Furosemide 20 Mg/2 Ml Inj IV 06/05/21 19:59 20 mg QDAY ABRAHAN Administration Haloperidol Lactate 5 mg 05/19/21 15:00 06/01/21 21:04 Haloperidol Lactate 5 Mg/1 Ml Inj IV 5 mg Q8H PRN Administration Agitation Hydrocortisone Sodium Succinate 100 mg 06/04/21 14:00 06/04/21 13:20 Hydrocortisone Sod Succ 100 Mg/2 Ml Vial IV 100 mg Q8HR ABRAHAN Administration Hydrophilic Ointment 1 applic 06/02/21 17:44 Lip Therapy Vaseline TP Q2HR PRN Dry Lips NORepinephrine/NS 8 MG-250 ML 8 mg in 250 mls @ 3.75 mls/hr 06/02/21 06:00 06/04/21 03:00 Norepinephrine/Ns 8 Mg-250 Ml (Double Conc) IV 4 mcg/min TITRATE ABRAHAN 7.5 mls/hr Titration Protocol 2 MCG/MIN Propofol 1,000 mg in 100 mls @ 1.932 mls/hr 06/02/21 06:00 06/03/21 20:15 Diprivan 10 Mg/Ml IV 10 mcg/kg/min TITR ABRAHAN 3.864 mls/hr Titration Protocol 5 MCG/KG/MIN Fentanyl Citrate 2,000 mcg in 100 mls @ 3.22 mls/hr 06/02/21 06:00 06/04/21 02:14 Fentanyl Drip Premix IV 2 mcg/kg/hr TITR ABRAHAN 6.44 mls/hr Administration Protocol 1 MCG/KG/HR REMDESIVIR 100 mg/ Sodium 250 mls @ 500 mls/hr 06/03/21 21:00 06/03/21 21:16 Chloride IV 06/06/21 21:29 500 mls/hr Q24HR@2100 ABRAHAN Administration Insulin Human Lispro 0 unit 05/17/21 12:00 06/04/21 13:20 Insulin Lispro 100 Unit/Ml SUB-Q 3 unit Q6HR ABRAHAN Administration Protocol Lansoprazole 30 mg 05/28/21 10:00 06/04/21 09:38 Lansoprazole 30 Mg Solutab FEEDTUBE 30 mg QDAY ABRAHAN Administration Metoclopramide HCl 10 mg 05/11/21 21:40 Metoclopramide 10 Mg/2 Ml Inj IV Q6H PRN Nausea And Vomiting Multi-Ingred Cream/Lotion/Oil/Oint 1 applic 06/02/21 17:44 Mineral Oil/Petrolatum, White Ophth Oint 3.5 Gm OU Q4HR PRN Dry Eye(s) Ondansetron HCl 4 mg 05/11/21 21:40 05/15/21 09:57 Ondansetron 4 Mg/2 Ml Inj IV 4 mg Q8H PRN Administration Nausea And Vomiting Senna/Docusate Sodium 1 tab 06/02/21 22:00 06/04/21 09:38 Sennosides/Docusate Sodium 8.6/50 Mg Tab FEEDTUBE 1 tab BID ABRAHAN Administration Simple Syrup 15 ml 05/22/21 16:30 Simple Syrup 15 Ml FEEDTUBE PRN PRN Hypoglycemia Simple Syrup 30 ml 05/22/21 16:30 Simple Syrup 15 Ml FEEDTUBE PRN PRN Hypoglycemia Sodium Bicarbonate 325 mg 05/22/21 16:30 Sodium Bicarbonate 325 Mg Tab FEEDTUBE PRN PRN For Clogged Feeding Tube Sodium Chloride 10 ml 05/11/21 22:00 06/04/21 09:38 Sodium Chloride 0.9% 10 Ml Flush Syringe IV 10 ml BID ABRAHAN Administration Sodium Chloride 10 ml 05/11/21 21:40 05/23/21 21:00 Sodium Chloride 0.9% 10 Ml Flush Syringe IV 10 ml PRN PRN Administration LINE FLUSH Sodium Chloride 50 ml 06/02/21 18:30 06/03/21 21:16 Sodium Chloride 0.9% 50 Ml Ivpb IV 06/06/21 21:01 50 ml [id number]@2100 ABRAHAN Administration Zinc Sulfate 220 mg 06/02/21 22:00 06/04/21 09:38 Zinc Sulfate 220 Mg Cap PO 220 mg BID ABRAHAN Administration Nutrition/Malnutrition Assess - Dietary Evaluation Nutrition/Malnutrition Findings: Nutrition Notes Start: 05/13/21 09:47 Freq: Status: Active Protocol: Document 06/01/21 12:45 MARITZA (Rec: 06/01/21 12:49 MARITZA [id number]) Nutrition Notes Initial or Follow up Reassessment Current Diagnosis COPD,Respiratory Failure Other Pertinent Diagnosis COVID-19 (+), Pancreatic CA, pulmonary fibrosis Current Diet TF - Glucerna 1.2 at 50ml/hr Labs/Tests Reviewed Pertinent Medications Reviewed Height 5 ft 2 in Weight 64.4 kg [place] Body Weight (kg) 50.00 BMI 25.9 Weight Status Appropriate Subjective/Other Information Pt tolerating Glucerna 1.2 at goal rate. She remains on BiPap support. Referral made to [facility] hospice. Percent of energy/protein needs met: 100% energy and pro Burn Absent Trauma Absent #2 Nutrition Diagnosis Malnutrition Diagnosis Progress(for reassessment Continues documentation) Is patient on ventilator? No Is Patient Ambulatory and/or Out of Bed No REE-([place] Jeor-confined to bed) 1447.020 Calculation Used for Recommendations [place] Jeor Additional Notes Pro needs 1-1.2g/k-77g/ day Fluid needs 1ml/kcal Nutrition Intervention Nutrition Support: Continue Glucerna 1.2 at 50ml/ hr with 80ml water flush q4h. Kcal 1,440 Protein (gm) 72 Carbohydrates (gm) 137 Fat (gm) 72 Fluid (mL) 966 Fiber (gm) 19 Goal #1 TF tolerance Goal #2 TF to meet at least 75% energy and pro needs Follow-Up By: 06/08/21 Additional Comments F/U: stable TF, resp status, wt
--- NOTE | 2021-06-04 18:02 | Vascular Lab Report ---
DUPLEX DOPPLER LOWER EXTREMITY VEINS, BILATERAL INDICATION / CLINICAL INFORMATION: r/o dvt. Shortness of breath, septic shock, leg swelling TECHNIQUE: Duplex doppler imaging was performed through the veins of both lower extremities using venous salvatore mandi and other maneuvers. COMPARISON: None available. FINDINGS: RIGHT COMMON FEMORAL VEIN: Negative. RIGHT FEMORAL VEIN: Negative. RIGHT POPLITEAL VEIN: Negative. RIGHT CALF VEINS: Negative. LEFT COMMON FEMORAL VEIN: Negative. LEFT FEMORAL VEIN: Negative. LEFT POPLITEAL VEIN: Negative. LEFT CALF VEINS: Negative. ADDITIONAL FINDINGS: None. IMPRESSION: 1. No sonographic evidence for DVT in either lower extremity. Signer Name: Alin Das MD Signed: 06/04/2021 5:58 PM Workstation Name: [id number]
[2021-06-04] MEDS: SODIUM CHLORIDE 0.9% 50 ML IVPB IV SCH (21:48)
[2021-06-04] MEDS: ENOXAPARIN 40 MG/0.4 ML INJ SUB-Q SCH (21:48)
[2021-06-04] MEDS: REMDESIVIR 100 MG in SODIUM CHLORIDE 0.9% 250ML 250 ML IV SCH (21:48)
[2021-06-05] MEDS: INSULIN LISPRO 100 UNIT/ML SUB-Q SCH ×4 (00:08→17:16)
--- NOTE | 2021-06-05 05:08 | XRay Report ---
CHEST - 1 VIEW INDICATION: follow up respiratory failure COMPARISON: Yesterday FINDINGS: SUPPORT DEVICES: Stable support device positioning. HEART: Stable cardiomediastinal silhouette. LUNGS/PLEURA: Moderate patchy multifocal airspace disease. ADDITIONAL FINDINGS: None. IMPRESSION: Unchanged exam. Signer Name: Philip Nolan MD Signed: 06/05/2021 5:03 AM Workstation Name: [id number]
[2021-06-05] MEDS: HYDROCORTISONE SOD SUCC 100 MG/2 ML VIAL IV SCH ×3 (05:33→22:22)
[2021-06-05] MEDS: FREE WATER PO SCH ×5 (05:33→22:26)
[2021-06-05 06:43] LABS: Hematocrit 31.4 % (30.3-42.9); Mean Corpuscular HGB Conc 32 % (30-34); Mean Corpuscular Volume 100 fl (79-97); Platelet Count 127 K/mm3 (140-440); Red Blood Count 3.13 M/mm3 (3.65-5.03); Red Cell Distribution Width 24.6 % (13.2-15.2)
[2021-06-05 06:52] LABS: INR 1.15 (0.87-1.13)
[2021-06-05 06:53] LABS: Partial Thromboplastin Time 37.1 Sec. (24.2-36.6)
[2021-06-05 07:35] LABS: Alanine Aminotransferase 52 units/L (7-56); Albumin 1.8 g/dL (3.9-5); BUN/Creatinine Ratio 57; Blood Urea Nitrogen 17 mg/dL (7-17); Calcium 8.3 mg/dL (8.4-10.2); Hemolysis Index 29
[2021-06-05] MEDS: BUDESONIDE 0.5 MG/2 ML NEBU IH SCH ×2 (09:12→20:38)
[2021-06-05] MEDS: ARFORMOTEROL 15 MCG/2 ML NEBU IH SCH ×2 (09:13→20:38)
[2021-06-05] MEDS: FUROSEMIDE 20 MG/2 ML INJ IV SCH (09:40)
[2021-06-05] MEDS: fentaNYL DRIP Premix 2,000 MCG/100 ML BAG IV SCH (09:40)
[2021-06-05] MEDS: SENNOSIDES/DOCUSATE SODIUM 8.6/50 MG TAB FEEDTUBE SCH ×2 (09:41→22:23)
[2021-06-05] MEDS: LANSOPRAZOLE 30 MG SOLUTAB FEEDTUBE SCH (09:41)
[2021-06-05] MEDS: ZINC SULFATE 220 MG CAP PO SCH ×2 (09:41→22:23)
[2021-06-05] MEDS: ASCORBIC ACID 500 MG TAB PO SCH ×2 (09:41→22:23)
[2021-06-05] MEDS: DICYCLOMINE 10 MG CAP PO SCH ×4 (09:41→22:23)
--- NOTE | 2021-06-05 14:23 | Progress Note ---
Assessment and Plan Septic shock possible hepatobiliary source Lactic acidosis h/o pulmonary fibrosis, Acute on chronic respiratory failure on home O2 of 2 L nasal cannula Transaminitis, biliary dilation, r/o cholangitis Hyperchloremia, metabolic acidosis, hypokalemia Hypoglycemia h/o pancreatic head cancer- chemoradiation therapy h/o Hypertension Thrombocytopenia (Care plan discussed at length with her son & daughter with charge nurse and Chief Unit Forester listening; all their questions were answered) - lower extremity dopplers negative free water reduced - almaraz catheter re-inserted due to retention - prn diuresis (follow repeat BMP) - discontinued Lovenox and send HIT assay - begin Aritra for DVT prophylaxis - continue Solucortef (100 mg IV q8h) - repeat ABG in am - continue care as below otherwise; - continue daily SAT and SBT assessment as tolerated - sedation prn for target RASS 0 to -1 - VAP bundle addressed - continue lung protective strategies - continue bronchodilators with pulmonary hygiene per RT - wean per pulmonary driven protocols otherwise - prn vasopressors for target MAP > 65 mmHg - MRCP pending as she remains tenuous from a respiratory standpoint - continue anti-infective's; de-escalate per ID recommendations - accuchecks with glycemic control per SSI (While critically ill target blood glucose of 140-180 mg/dL; avoid hypoglycemia) - wean supplemental oxygen for target O2 sat's > 90% acutely - aspiration precautions - avoid nephrotoxins, renally dose all medications - prn analgesia per pain score - Maintenance of sleep-wake cycle, avoid delirium - G.I. & VTE prophylaxis - PT/OT/ROM exercises - mobility protocols for pressure ulcer prophylaxis - Monitor hemodynamics closely - continue other care per attending / other consultants - discharge planning ongoing concurrently COVID SPECIFIC INTERVENTIONS - Remdesivir as per ID/Pulmonary developed protocols (ordered) - continue systemic steroids for severe COVID-19 infection empirically (on Solucortef) - follow repeat COVID tests results - zinc and vitamin C supplementation (ordered) - Monitor inflammatory markers per facility protocol - ferritin, Ddimer, CRP - therapeutic anticoagulation per system Protocol based on d-dimer and clinical considerations (DVT prophylaxis) - Contact and airborne isolation .... Re-evaluate in am & prn CONDITION: CRITICAL PROGNOSIS: GUARDED CODE STATUS: FULL CODE The high probability of a clinically significant, sudden or life-threatening deterioration of the [respiratory, cardiovascular, GI & neurologic] system(s) required my full and direct attention, intervention and personal management. The aggregate critical care time was [35] minutes without overlap. Time includes spent on; [x] Data Review and interpretation [x] Patient assessment and monitoring of vital signs [x] Documentation [x] Medication orders and management Subjective Date of service: 06/05/21 Principal diagnosis: Septic shock; Pulm fibrosis; Hypoxemic resp failure; COVID- 19 infxn Interval history: Patient is seen today for: Septic shock; pulmonary fibrosis; Acute on chronic hypoxemic respiratory failure; Transaminitis; h/o pancreatic head cancer; HTN Seen and examined at bedside; 24hour events reviewed; nursing and respiratory care staff consulted; no adverse overnight events reported to me; resting in bed; remains on MVS; FiO2 reduced to 70%; responsive and appropriate during SAT today; no N/V/F/C; off Levophed; platelets down to 127 Objective Vital Signs - 12hr 06/05/21 06/05/21 06/05/21 02:30 02:45 03:00 Temperature Pulse Rate 75 77 91 H Pulse Rate [ Bilateral Throughout] Pulse Rate [ From Monitor] Respiratory 20 14 21 Rate Respiratory Rate [Bilateral Throughout] Blood Pressure 106/72 117/69 105/70 O2 Sat by Pulse 97 96 Oximetry 06/05/21 06/05/21 06/05/21 03:15 03:30 03:41 Temperature Pulse Rate 102 H 73 99 H Pulse Rate [ Bilateral Throughout] Pulse Rate [ From Monitor] Respiratory 13 20 Rate Respiratory Rate [Bilateral Throughout] Blood Pressure 114/65 108/79 105/70 O2 Sat by Pulse 97 89 96 Oximetry 06/05/21 06/05/21 06/05/21 03:45 03:56 04:00 Temperature 98.9 F Pulse Rate 88 97 H Pulse Rate [ Bilateral Throughout] Pulse Rate [ 78 From Monitor] Respiratory 14 17 Rate Respiratory Rate [Bilateral Throughout] Blood Pressure 110/78 98/66 O2 Sat by Pulse 97 98 Oximetry 06/05/21 06/05/21 06/05/21 04:15 04:30 04:45 Temperature Pulse Rate 92 H 106 H 105 H Pulse Rate [ Bilateral Throughout] Pulse Rate [ From Monitor] Respiratory 14 23 17 Rate Respiratory Rate [Bilateral Throughout] Blood Pressure 98/69 96/78 107/73 O2 Sat by Pulse 97 97 98 Oximetry 0106/05/21 06/05/21 05:00 05:15 05:30 Temperature Pulse Rate 104 H 113 H 106 H Pulse Rate [ Bilateral Throughout] Pulse Rate [ From Monitor] Respiratory 21 17 13 Rate Respiratory Rate [Bilateral Throughout] Blood Pressure 104/72 88/68 100/70 O2 Sat by Pulse 99 98 96 Oximetry 06/05/21 06/05/21 06/05/21 05:45 06:00 06:15 Temperature Pulse Rate 99 H 112 H 114 H Pulse Rate [ Bilateral Throughout] Pulse Rate [ From Monitor] Respiratory 17 20 24 Rate Respiratory Rate [Bilateral Throughout] Blood Pressure 107/68 110/67 120/76 O2 Sat by Pulse 97 97 97 Oximetry 06/05/21 06/05/21 06/05/21 06:30 06:45 07:00 Temperature Pulse Rate 122 H 99 H 97 H Pulse Rate [ Bilateral Throughout] Pulse Rate [ From Monitor] Respiratory 24 15 18 Rate Respiratory Rate [Bilateral Throughout] Blood Pressure 105/58 104/65 95/63 O2 Sat by Pulse 96 99 98 Oximetry 06/05/21 06/05/21 06/05/21 07:15 07:30 07:45 Temperature Pulse Rate 98 H 95 H 100 H Pulse Rate [ Bilateral Throughout] Pulse Rate [ From Monitor] Respiratory 19 18 19 Rate Respiratory Rate [Bilateral Throughout] Blood Pressure 93/61 90/55 89/56 O2 Sat by Pulse 98 98 Oximetry 06/05/21 06/05/21 06/05/21 08:00 08:15 08:30 Temperature 99.2 F Pulse Rate 88 98 H 103 H Pulse Rate [ Bilateral Throughout] Pulse Rate [ 73 From Monitor] Respiratory 20 22 21 Rate Respiratory Rate [Bilateral Throughout] Blood Pressure 94/56 86/58 96/55 O2 Sat by Pulse 98 98 97 Oximetry 06/05/21 06/05/21 06/05/21 08:45 09:00 09:04 Temperature Pulse Rate 101 H 99 H 93 H Pulse Rate [ Bilateral Throughout] Pulse Rate [ From Monitor] Respiratory 18 20 Rate Respiratory Rate [Bilateral Throughout] Blood Pressure 96/59 94/53 94/53 O2 Sat by Pulse 98 100 99 Oximetry 06/05/21 06/05/21 06/05/21 09:13 09:15 09:30 Temperature Pulse Rate 92 H 95 H Pulse Rate [ 89 Bilateral Throughout] Pulse Rate [ From Monitor] Respiratory 18 19 Rate Respiratory 20 Rate [Bilateral Throughout] Blood Pressure 101/72 87/57 O2 Sat by Pulse 99 97 Oximetry 06/05/21 06/05/21 06/05/21 09:45 10:00 10:15 Temperature Pulse Rate 88 103 H 99 H Pulse Rate [ Bilateral Throughout] Pulse Rate [ From Monitor] Respiratory 20 13 21 Rate Respiratory Rate [Bilateral Throughout] Blood Pressure 95/57 112/73 116/86 O2 Sat by Pulse 96 95 94 Oximetry 06/05/21 06/05/21 06/05/21 10:30 10:45 11:00 Temperature Pulse Rate 104 H 112 H 109 H Pulse Rate [ Bilateral Throughout] Pulse Rate [ From Monitor] Respiratory 21 25 H 24 Rate Respiratory Rate [Bilateral Throughout] Blood Pressure 117/82 121/78 121/78 O2 Sat by Pulse 98 90 92 Oximetry 06/05/21 06/05/21 06/05/21 11:15 11:30 11:45 Temperature Pulse Rate 105 H 116 H 122 H Pulse Rate [ Bilateral Throughout] Pulse Rate [ From Monitor] Respiratory 25 H 24 27 H Rate Respiratory Rate [Bilateral Throughout] Blood Pressure 115/78 105/76 113/73 O2 Sat by Pulse 91 93 91 Oximetry 06/05/21 06/05/21 06/05/21 12:00 12:15 12:30 Temperature 97.1 F L Pulse Rate 106 H 109 H 114 H Pulse Rate [ Bilateral Throughout] Pulse Rate [ From Monitor] Respiratory 30 H 30 H 30 H Rate Respiratory Rate [Bilateral Throughout] Blood Pressure 114/79 117/89 117/74 O2 Sat by Pulse 99 93 96 Oximetry 06/05/21 06/05/21 06/05/21 12:45 13:00 13:15 Temperature Pulse Rate 117 H 114 H 114 H Pulse Rate [ Bilateral Throughout] Pulse Rate [ From Monitor] Respiratory 32 H 34 H 33 H Rate Respiratory Rate [Bilateral Throughout] Blood Pressure 111/78 119/77 121/77 O2 Sat by Pulse 93 91 86 Oximetry 06/05/21 06/05/21 06/05/21 13:30 13:45 14:00 Temperature Pulse Rate 114 H 113 H 112 H Pulse Rate [ Bilateral Throughout] Pulse Rate [ From Monitor] Respiratory 32 H 31 H 30 H Rate Respiratory Rate [Bilateral Throughout] Blood Pressure 123/75 111/81 129/73 O2 Sat by Pulse 93 92 92 Oximetry 06/05/21 14:15 Temperature Pulse Rate 106 H Pulse Rate [ Bilateral Throughout] Pulse Rate [ From Monitor] Respiratory 30 H Rate Respiratory Rate [Bilateral Throughout] Blood Pressure 127/80 O2 Sat by Pulse 93 Oximetry Constitutional: appears uncomfortable, other (mildly increased respiratory effort at rest on MVS) Eyes: non-icteric ENT: oropharynx moist, other (ETT 24 cm JOSH) Neck: supple, no lymphadenopathy, no JVD Effort: mildly labored Ascultation: Bilateral: diminished breath sounds, rales (inspiratory, bases) Percussion: Bilateral: not dull Cardiovascular: regular rate and rhythm, other (S1,S2) Gastrointestinal: normoactive bowel sounds, soft, non-tender, non-distended (protuberant) Integumentary: normal Extremities: no cyanosis, pulses normal, edema (1+ edema), other (right femoral CVL) Neurologic: normal mental status, non-focal exam (grossly), pupils equal and round, other (sedated) Psychiatric: anxious, depressed CBC and BMP: 06/05/21 06:00 06/05/21 06:00 ABG, PT/INR, D-dimer: ABG ABG pH 7.416 (7.320-7.450) 06/05/21 09:17 POC ABG pCO2 54.0 mmHg (32.0-48.0) H 06/05/21 09:17 ABG pCO2 50.3 mm Hg 06/03/21 10:00 POC ABG pO2 140.6 mmHg (83-108) H 06/05/21 09:17 ABG pO2 68.5 mm Hg (80.0-90.0) L 06/03/21 10:00 POC ABG HCO3 33.9 06/05/21 09:17 ABG O2 Saturation 99.1 (0-100) 06/05/21 09:17 PT/INR, D-dimer PT 15.9 Sec. (12.2-14.9) H 06/05/21 06:00 INR 1.15 (0.87-1.13) H 06/05/21 06:00 D-Dimer 1282.85 ng/mlDDU (0-234) H 06/05/21 06:00 Abnormal lab findings: Abnormal Labs 05/11/21 05/11/21 05/11/21 05:43 05:43 05:43 WBC RBC Hgb Hct MCV 98 H MCH RDW 17.7 H Plt Count Lymph % (Auto) 10.8 L Eos % (Auto) Lymph # (Auto) 0.6 L Eos # (Auto) Seg Neutrophils % 84.1 H Seg Neuts % (Manual) Lymphocytes % (Manual) Seg Neutrophils # Man Lymphocytes # (Manual) PT 16.0 H INR 1.16 H APTT D-Dimer ABG pH POC ABG pCO2 POC ABG pO2 ABG pO2 ABG HCO3 ABG O2 Saturation ABG Base Excess ABG Hemoglobin ABG Oxyhemoglobin ABG Sodium ABG Potassium ABG Chloride ABG Glucose Oxyhemoglobin Carboxyhemoglobin Sodium Potassium Chloride Carbon Dioxide 21 L BUN 4 L Creatinine 0.4 L Glucose POC Glucose Lactic Acid Calcium 8.3 L Phosphorus Magnesium Ferritin Total Bilirubin 2.10 H Direct Bilirubin 1.4 H AST 335 H ALT 57 H Alkaline Phosphatase 339 H Lactate Dehydrogenase C-Reactive Protein NT-Pro-B Natriuret Pep Total Protein Albumin 2.4 L Lipase 3 L Arterial Blood Glucose Ur Specific [place] Vancomycin Trough Coronavirus (PCR) 05/11/21 05/11/21 05/12/21 11:18 12:28 04:08 WBC RBC Hgb Hct MCV MCH RDW Plt Count Lymph % (Auto) Eos % (Auto) Lymph # (Auto) Eos # (Auto) Seg Neutrophils % Seg Neuts % (Manual) Lymphocytes % (Manual) Seg Neutrophils # Man Lymphocytes # (Manual) PT INR APTT D-Dimer ABG pH POC ABG pCO2 POC ABG pO2 ABG pO2 ABG HCO3 ABG O2 Saturation ABG Base Excess ABG Hemoglobin ABG Oxyhemoglobin ABG Sodium ABG Potassium ABG Chloride ABG Glucose Oxyhemoglobin Carboxyhemoglobin Sodium Potassium Chloride Carbon Dioxide BUN Creatinine Glucose POC Glucose Lactic Acid 4.20 H* 4.50 H* Calcium Phosphorus Magnesium Ferritin Total Bilirubin Direct Bilirubin AST ALT Alkaline Phosphatase Lactate Dehydrogenase C-Reactive Protein NT-Pro-B Natriuret Pep Total Protein Albumin Lipase Arterial Blood Glucose Ur Specific [place] 1.035 H Vancomycin Trough Coronavirus (PCR) 05/12/21 05/12/21 05/12/21 04:08 04:08 09:47 WBC 22.8 H RBC 3.39 L Hgb Hct MCV 98 H MCH RDW 17.7 H Plt Count Lymph % (Auto) Eos % (Auto) Lymph # (Auto) Eos # (Auto) Seg Neutrophils % Seg Neuts % (Manual) 85.5 H Lymphocytes % (Manual) 2.0 L Seg Neutrophils # Man 19.5 H Lymphocytes # (Manual) 0.5 L PT INR APTT D-Dimer ABG pH POC ABG pCO2 POC ABG pO2 ABG pO2 ABG HCO3 ABG O2 Saturation ABG Base Excess ABG Hemoglobin ABG Oxyhemoglobin ABG Sodium ABG Potassium ABG Chloride ABG Glucose Oxyhemoglobin Carboxyhemoglobin Sodium Potassium 3.3 L Chloride 108.9 H Carbon Dioxide 17 L BUN 4 L Creatinine 0.5 L Glucose 106 H POC Glucose Lactic Acid 2.60 H* Calcium 6.4 L D Phosphorus Magnesium Ferritin Total Bilirubin 2.10 H Direct Bilirubin AST 156 H ALT 61 H Alkaline Phosphatase 317 H Lactate Dehydrogenase C-Reactive Protein NT-Pro-B Natriuret Pep Total Protein 5.4 L D Albumin 1.8 L Lipase Arterial Blood Glucose Ur Specific [place] Vancomycin Trough Coronavirus (PCR) 05/12/21 05/12/21 05/12/21 11:47 12:30 12:36 WBC RBC Hgb Hct MCV MCH RDW Plt Count Lymph % (Auto) Eos % (Auto) Lymph # (Auto) Eos # (Auto) Seg Neutrophils % Seg Neuts % (Manual) Lymphocytes % (Manual) Seg Neutrophils # Man Lymphocytes # (Manual) PT INR APTT D-Dimer ABG pH POC ABG pCO2 POC ABG pO2 ABG pO2 ABG HCO3 ABG O2 Saturation ABG Base Excess ABG Hemoglobin ABG Oxyhemoglobin ABG Sodium ABG Potassium ABG Chloride ABG Glucose Oxyhemoglobin Carboxyhemoglobin Sodium Potassium Chloride Carbon Dioxide BUN Creatinine Glucose POC Glucose 59 L 120 H Lactic Acid 2.50 H* Calcium Phosphorus Magnesium Ferritin Total Bilirubin Direct Bilirubin AST ALT Alkaline Phosphatase Lactate Dehydrogenase C-Reactive Protein NT-Pro-B Natriuret Pep Total Protein Albumin Lipase Arterial Blood Glucose Ur Specific [place] Vancomycin Trough Coronavirus (PCR) 05/12/21 05/12/21 05/13/21 23:45 Unknown 04:00 WBC 19.8 H RBC 3.52 L Hgb Hct MCV 98 H MCH RDW 18.5 H Plt Count Lymph % (Auto) Eos % (Auto) Lymph # (Auto) Eos # (Auto) Seg Neutrophils % Seg Neuts % (Manual) Lymphocytes % (Manual) Seg Neutrophils # Man Lymphocytes # (Manual) PT INR APTT D-Dimer ABG pH POC ABG pCO2 POC ABG pO2 ABG pO2 ABG HCO3 ABG O2 Saturation ABG Base Excess ABG Hemoglobin ABG Oxyhemoglobin ABG Sodium ABG Potassium ABG Chloride ABG Glucose Oxyhemoglobin Carboxyhemoglobin Sodium Potassium Chloride Carbon Dioxide BUN Creatinine Glucose POC Glucose 119 H Lactic Acid 3.30 H* Calcium Phosphorus Magnesium Ferritin Total Bilirubin Direct Bilirubin AST ALT Alkaline Phosphatase Lactate Dehydrogenase C-Reactive Protein NT-Pro-B Natriuret Pep Total Protein Albumin Lipase Arterial Blood Glucose Ur Specific [place] Vancomycin Trough Coronavirus (PCR) 05/13/21 05/13/21 05/13/21 04:00 05:42 12:19 WBC RBC Hgb Hct MCV MCH RDW Plt Count Lymph % (Auto) Eos % (Auto) Lymph # (Auto) Eos # (Auto) Seg Neutrophils % Seg Neuts % (Manual) Lymphocytes % (Manual) Seg Neutrophils # Man Lymphocytes # (Manual) PT INR APTT D-Dimer ABG pH POC ABG pCO2 POC ABG pO2 ABG pO2 ABG HCO3 ABG O2 Saturation ABG Base Excess ABG Hemoglobin ABG Oxyhemoglobin ABG Sodium ABG Potassium ABG Chloride ABG Glucose Oxyhemoglobin Carboxyhemoglobin Sodium Potassium 3.4 L Chloride 107.1 H Carbon Dioxide 19 L BUN 4 L Creatinine 0.4 L Glucose 157 H POC Glucose 143 H 110 H Lactic Acid Calcium 7.4 L D Phosphorus 1.60 L Magnesium 1.50 L Ferritin Total Bilirubin 1.40 H Direct Bilirubin AST 95 H ALT Alkaline Phosphatase 328 H Lactate Dehydrogenase C-Reactive Protein NT-Pro-B Natriuret Pep Total Protein 5.5 L Albumin 1.6 L Lipase Arterial Blood Glucose Ur Specific [place] Vancomycin Trough Coronavirus (PCR) 05/14/21 05/14/21 05/14/21 06:15 06:15 10:25 WBC 11.7 H RBC 3.41 L Hgb Hct MCV 98 H MCH RDW 18.6 H Plt Count Lymph % (Auto) Eos % (Auto) Lymph # (Auto) Eos # (Auto) Seg Neutrophils % Seg Neuts % (Manual) Lymphocytes % (Manual) Seg Neutrophils # Man Lymphocytes # (Manual) PT INR APTT D-Dimer ABG pH POC ABG pCO2 POC ABG pO2 ABG pO2 76.0 L ABG HCO3 27.2 H ABG O2 Saturation ABG Base Excess ABG Hemoglobin 11.5 L ABG Oxyhemoglobin ABG Sodium ABG Potassium ABG Chloride ABG Glucose Oxyhemoglobin 94.4 L Carboxyhemoglobin Sodium Potassium 3.2 L Chloride Carbon Dioxide BUN 6 L Creatinine 0.5 L Glucose 103 H POC Glucose Lactic Acid Calcium 7.3 L Phosphorus 1.70 L Magnesium Ferritin Total Bilirubin Direct Bilirubin AST 66 H ALT Alkaline Phosphatase 295 H Lactate Dehydrogenase C-Reactive Protein NT-Pro-B Natriuret Pep Total Protein 5.3 L Albumin 1.8 L Lipase Arterial Blood Glucose Ur Specific [place] Vancomycin Trough Coronavirus (PCR) 05/14/21 05/14/21 05/14/21 15:20 15:20 17:26 WBC RBC Hgb Hct MCV MCH RDW Plt Count Lymph % (Auto) Eos % (Auto) Lymph # (Auto) Eos # (Auto) Seg Neutrophils % Seg Neuts % (Manual) Lymphocytes % (Manual) Seg Neutrophils # Man Lymphocytes # (Manual) PT INR APTT D-Dimer ABG pH POC ABG pCO2 POC ABG pO2 ABG pO2 ABG HCO3 ABG O2 Saturation ABG Base Excess ABG Hemoglobin ABG Oxyhemoglobin ABG Sodium ABG Potassium ABG Chloride ABG Glucose Oxyhemoglobin Carboxyhemoglobin Sodium 146 H D Potassium Chloride 108.4 H Carbon Dioxide BUN 5 L Creatinine 0.5 L Glucose POC Glucose 63 L Lactic Acid Calcium 7.6 L Phosphorus Magnesium Ferritin Total Bilirubin Direct Bilirubin AST ALT Alkaline Phosphatase Lactate Dehydrogenase C-Reactive Protein NT-Pro-B Natriuret Pep Total Protein Albumin Lipase Arterial Blood Glucose Ur Specific [place] Vancomycin Trough 25.3 H Coronavirus (PCR) 05/14/21 05/15/21 05/15/21 21:27 00:03 00:29 WBC RBC Hgb Hct MCV MCH RDW Plt Count Lymph % (Auto) Eos % (Auto) Lymph # (Auto) Eos # (Auto) Seg Neutrophils % Seg Neuts % (Manual) Lymphocytes % (Manual) Seg Neutrophils # Man Lymphocytes # (Manual) PT INR APTT D-Dimer ABG pH POC ABG pCO2 POC ABG pO2 ABG pO2 ABG HCO3 ABG O2 Saturation ABG Base Excess ABG Hemoglobin ABG Oxyhemoglobin ABG Sodium ABG Potassium ABG Chloride ABG Glucose Oxyhemoglobin Carboxyhemoglobin Sodium Potassium Chloride Carbon Dioxide BUN Creatinine Glucose POC Glucose 52 L 54 L 129 H Lactic Acid Calcium Phosphorus Magnesium Ferritin Total Bilirubin Direct Bilirubin AST ALT Alkaline Phosphatase Lactate Dehydrogenase C-Reactive Protein NT-Pro-B Natriuret Pep Total Protein Albumin Lipase Arterial Blood Glucose Ur Specific [place] Vancomycin Trough Coronavirus (PCR) 05/15/21 05/15/21 05/15/21 04:45 04:45 11:58 WBC RBC 3.24 L Hgb Hct MCV 98 H MCH RDW 18.5 H Plt Count 122 L Lymph % (Auto) 7.4 L Eos % (Auto) Lymph # (Auto) 0.6 L Eos # (Auto) Seg Neutrophils % 81.2 H Seg Neuts % (Manual) Lymphocytes % (Manual) Seg Neutrophils # Man Lymphocytes # (Manual) PT INR APTT D-Dimer ABG pH POC ABG pCO2 POC ABG pO2 ABG pO2 ABG HCO3 ABG O2 Saturation ABG Base Excess ABG Hemoglobin ABG Oxyhemoglobin ABG Sodium ABG Potassium ABG Chloride ABG Glucose Oxyhemoglobin Carboxyhemoglobin Sodium 146 H Potassium 3.1 L Chloride 108.8 H Carbon Dioxide BUN 6 L Creatinine Glucose 121 H POC Glucose 68 L Lactic Acid Calcium 7.5 L Phosphorus 2.30 L D Magnesium Ferritin Total Bilirubin 1.90 H Direct Bilirubin AST 55 H ALT Alkaline Phosphatase 231 H Lactate Dehydrogenase C-Reactive Protein NT-Pro-B Natriuret Pep Total Protein 5.4 L Albumin 1.5 L Lipase Arterial Blood Glucose Ur Specific [place] Vancomycin Trough Coronavirus (PCR) 05/15/21 05/16/21 05/16/21 13:50 00:06 00:43 WBC RBC Hgb Hct MCV MCH RDW Plt Count Lymph % (Auto) Eos % (Auto) Lymph # (Auto) Eos # (Auto) Seg Neutrophils % Seg Neuts % (Manual) Lymphocytes % (Manual) Seg Neutrophils # Man Lymphocytes # (Manual) PT INR APTT D-Dimer ABG pH POC ABG pCO2 POC ABG pO2 ABG pO2 ABG HCO3 ABG O2 Saturation ABG Base Excess ABG Hemoglobin ABG Oxyhemoglobin ABG Sodium ABG Potassium ABG Chloride ABG Glucose Oxyhemoglobin Carboxyhemoglobin Sodium Potassium Chloride Carbon Dioxide BUN Creatinine Glucose POC Glucose 147 H 54 L 116 H Lactic Acid Calcium Phosphorus Magnesium Ferritin Total Bilirubin Direct Bilirubin AST ALT Alkaline Phosphatase Lactate Dehydrogenase C-Reactive Protein NT-Pro-B Natriuret Pep Total Protein Albumin Lipase Arterial Blood Glucose Ur Specific [place] Vancomycin Trough Coronavirus (PCR) 05/16/21 05/16/21 05/16/21 04:31 04:31 05:58 WBC RBC 3.12 L Hgb 9.8 L Hct MCV 98 H MCH RDW 18.2 H Plt Count 115 L Lymph % (Auto) Eos % (Auto) Lymph # (Auto) Eos # (Auto) Seg Neutrophils % Seg Neuts % (Manual) Lymphocytes % (Manual) Seg Neutrophils # Man Lymphocytes # (Manual) PT INR APTT D-Dimer ABG pH POC ABG pCO2 POC ABG pO2 ABG pO2 ABG HCO3 ABG O2 Saturation ABG Base Excess ABG Hemoglobin ABG Oxyhemoglobin ABG Sodium ABG Potassium ABG Chloride ABG Glucose Oxyhemoglobin Carboxyhemoglobin Sodium 146 H Potassium 3.2 L Chloride Carbon Dioxide BUN 5 L Creatinine 0.5 L Glucose POC Glucose 61 L Lactic Acid Calcium 7.2 L Phosphorus 2.30 L Magnesium Ferritin Total Bilirubin Direct Bilirubin AST ALT Alkaline Phosphatase Lactate Dehydrogenase C-Reactive Protein NT-Pro-B Natriuret Pep Total Protein Albumin Lipase Arterial Blood Glucose Ur Specific [place] Vancomycin Trough Coronavirus (PCR) 05/16/21 05/16/21 05/17/21 08:11 23:42 04:15 WBC RBC Hgb Hct MCV MCH RDW Plt Count Lymph % (Auto) Eos % (Auto) Lymph # (Auto) Eos # (Auto) Seg Neutrophils % Seg Neuts % (Manual) Lymphocytes % (Manual) Seg Neutrophils # Man Lymphocytes # (Manual) PT INR APTT D-Dimer ABG pH POC ABG pCO2 POC ABG pO2 ABG pO2 ABG HCO3 ABG O2 Saturation ABG Base Excess ABG Hemoglobin ABG Oxyhemoglobin ABG Sodium ABG Potassium ABG Chloride ABG Glucose Oxyhemoglobin Carboxyhemoglobin Sodium Potassium Chloride Carbon Dioxide BUN Creatinine Glucose POC Glucose 58 L 200 H Lactic Acid Calcium Phosphorus Magnesium Ferritin Total Bilirubin 1.70 H Direct Bilirubin 1.5 H AST 43 H ALT Alkaline Phosphatase 196 H Lactate Dehydrogenase C-Reactive Protein NT-Pro-B Natriuret Pep Total Protein 5.4 L Albumin 1.6 L Lipase Arterial Blood Glucose Ur Specific [place] Vancomycin Trough Coronavirus (PCR) 05/17/21 05/17/21 05/17/21 04:15 04:15 05:07 WBC RBC 3.26 L Hgb Hct MCV 98 H MCH RDW 18.9 H Plt Count 114 L Lymph % (Auto) Eos % (Auto) Lymph # (Auto) Eos # (Auto) Seg Neutrophils % Seg Neuts % (Manual) Lymphocytes % (Manual) Seg Neutrophils # Man Lymphocytes # (Manual) PT INR APTT D-Dimer ABG pH POC ABG pCO2 POC ABG pO2 ABG pO2 ABG HCO3 ABG O2 Saturation ABG Base Excess ABG Hemoglobin ABG Oxyhemoglobin ABG Sodium ABG Potassium ABG Chloride ABG Glucose Oxyhemoglobin Carboxyhemoglobin Sodium Potassium Chloride Carbon Dioxide 35 H BUN 5 L Creatinine Glucose 274 H POC Glucose 249 H Lactic Acid Calcium 7.7 L Phosphorus 1.50 L D Magnesium Ferritin Total Bilirubin Direct Bilirubin AST ALT Alkaline Phosphatase Lactate Dehydrogenase C-Reactive Protein NT-Pro-B Natriuret Pep Total Protein Albumin Lipase Arterial Blood Glucose Ur Specific [place] Vancomycin Trough Coronavirus (PCR) 05/17/21 05/17/21 05/17/21 11:56 16:29 23:37 WBC RBC Hgb Hct MCV MCH RDW Plt Count Lymph % (Auto) Eos % (Auto) Lymph # (Auto) Eos # (Auto) Seg Neutrophils % Seg Neuts % (Manual) Lymphocytes % (Manual) Seg Neutrophils # Man Lymphocytes # (Manual) PT INR APTT D-Dimer ABG pH POC ABG pCO2 POC ABG pO2 ABG pO2 ABG HCO3 ABG O2 Saturation ABG Base Excess ABG Hemoglobin ABG Oxyhemoglobin ABG Sodium ABG Potassium ABG Chloride ABG Glucose Oxyhemoglobin Carboxyhemoglobin Sodium Potassium Chloride Carbon Dioxide BUN Creatinine Glucose POC Glucose 176 H 219 H 150 H Lactic Acid Calcium Phosphorus Magnesium Ferritin Total Bilirubin Direct Bilirubin AST ALT Alkaline Phosphatase Lactate Dehydrogenase C-Reactive Protein NT-Pro-B Natriuret Pep Total Protein Albumin Lipase Arterial Blood Glucose Ur Specific [place] Vancomycin Trough Coronavirus (PCR) 05/18/21 05/18/21 05/18/21 04:00 05:22 09:00 WBC RBC 3.34 L Hgb Hct MCV MCH RDW 18.8 H Plt Count Lymph % (Auto) Eos % (Auto) Lymph # (Auto) Eos # (Auto) Seg Neutrophils % Seg Neuts % (Manual) Lymphocytes % (Manual) Seg Neutrophils # Man Lymphocytes # (Manual) PT INR APTT D-Dimer ABG pH POC ABG pCO2 POC ABG pO2 ABG pO2 ABG HCO3 ABG O2 Saturation ABG Base Excess ABG Hemoglobin ABG Oxyhemoglobin ABG Sodium ABG Potassium ABG Chloride ABG Glucose Oxyhemoglobin Carboxyhemoglobin Sodium Potassium 5.4 H D Chloride 97.5 L Carbon Dioxide 33 H BUN Creatinine 0.4 L Glucose 461 H POC Glucose 181 H Lactic Acid Calcium 7.2 L Phosphorus 5.00 H D Magnesium Ferritin Total Bilirubin Direct Bilirubin AST ALT Alkaline Phosphatase Lactate Dehydrogenase C-Reactive Protein NT-Pro-B Natriuret Pep Total Protein Albumin Lipase Arterial Blood Glucose Ur Specific [place] Vancomycin Trough Coronavirus (PCR) 05/18/21 05/18/21 05/18/21 11:16 12:50 16:29 WBC RBC Hgb Hct MCV MCH RDW Plt Count Lymph % (Auto) Eos % (Auto) Lymph # (Auto) Eos # (Auto) Seg Neutrophils % Seg Neuts % (Manual) Lymphocytes % (Manual) Seg Neutrophils # Man Lymphocytes # (Manual) PT INR APTT D-Dimer ABG pH POC ABG pCO2 POC ABG pO2 ABG pO2 ABG HCO3 ABG O2 Saturation ABG Base Excess ABG Hemoglobin ABG Oxyhemoglobin ABG Sodium ABG Potassium ABG Chloride ABG Glucose Oxyhemoglobin Carboxyhemoglobin Sodium Potassium 3.4 L D Chloride Carbon Dioxide 36 H BUN 19 H Creatinine 0.4 L Glucose 231 H POC Glucose 168 H 196 H Lactic Acid Calcium 7.5 L Phosphorus 1.80 L D Magnesium Ferritin Total Bilirubin Direct Bilirubin AST ALT Alkaline Phosphatase Lactate Dehydrogenase C-Reactive Protein NT-Pro-B Natriuret Pep Total Protein Albumin Lipase Arterial Blood Glucose Ur Specific [place] Vancomycin Trough Coronavirus (PCR) 05/19/21 05/19/21 05/19/21 00:05 04:08 05:07 WBC RBC Hgb Hct MCV MCH RDW Plt Count Lymph % (Auto) Eos % (Auto) Lymph # (Auto) Eos # (Auto) Seg Neutrophils % Seg Neuts % (Manual) Lymphocytes % (Manual) Seg Neutrophils # Man Lymphocytes # (Manual) PT INR APTT D-Dimer ABG pH POC ABG pCO2 POC ABG pO2 ABG pO2 ABG HCO3 ABG O2 Saturation ABG Base Excess ABG Hemoglobin ABG Oxyhemoglobin ABG Sodium ABG Potassium ABG Chloride ABG Glucose Oxyhemoglobin Carboxyhemoglobin Sodium 146 H Potassium Chloride Carbon Dioxide 35 H BUN 25 H Creatinine 0.4 L Glucose 218 H POC Glucose 164 H 203 H Lactic Acid Calcium 7.2 L Phosphorus Magnesium Ferritin Total Bilirubin Direct Bilirubin AST ALT Alkaline Phosphatase Lactate Dehydrogenase C-Reactive Protein NT-Pro-B Natriuret Pep Total Protein Albumin Lipase Arterial Blood Glucose Ur Specific [place] Vancomycin Trough Coronavirus (PCR) 05/19/21 05/19/21 05/19/21 12:16 14:14 17:11 WBC RBC Hgb Hct MCV MCH RDW Plt Count Lymph % (Auto) Eos % (Auto) Lymph # (Auto) Eos # (Auto) Seg Neutrophils % Seg Neuts % (Manual) Lymphocytes % (Manual) Seg Neutrophils # Man Lymphocytes # (Manual) PT INR APTT D-Dimer ABG pH 7.482 H POC ABG pCO2 POC ABG pO2 ABG pO2 111.7 H ABG HCO3 31.4 H ABG O2 Saturation ABG Base Excess 7.2 H ABG Hemoglobin 11.1 L ABG Oxyhemoglobin ABG Sodium ABG Potassium ABG Chloride ABG Glucose Oxyhemoglobin Carboxyhemoglobin Sodium Potassium Chloride Carbon Dioxide BUN Creatinine Glucose POC Glucose 206 H 194 H Lactic Acid Calcium Phosphorus Magnesium Ferritin Total Bilirubin Direct Bilirubin AST ALT Alkaline Phosphatase Lactate Dehydrogenase C-Reactive Protein NT-Pro-B Natriuret Pep Total Protein Albumin Lipase Arterial Blood Glucose Ur Specific [place] Vancomycin Trough Coronavirus (PCR) 05/20/21 05/20/21 05/20/21 00:01 04:30 06:09 WBC RBC Hgb Hct MCV MCH RDW Plt Count Lymph % (Auto) Eos % (Auto) Lymph # (Auto) Eos # (Auto) Seg Neutrophils % Seg Neuts % (Manual) Lymphocytes % (Manual) Seg Neutrophils # Man Lymphocytes # (Manual) PT INR APTT D-Dimer ABG pH POC ABG pCO2 POC ABG pO2 ABG pO2 ABG HCO3 ABG O2 Saturation ABG Base Excess ABG Hemoglobin ABG Oxyhemoglobin ABG Sodium ABG Potassium ABG Chloride ABG Glucose Oxyhemoglobin Carboxyhemoglobin Sodium Potassium 3.5 L Chloride Carbon Dioxide BUN 24 H Creatinine 0.3 L Glucose 254 H POC Glucose 209 H 210 H Lactic Acid Calcium 7.5 L Phosphorus 1.90 L D Magnesium Ferritin Total Bilirubin 1.60 H Direct Bilirubin AST 201 H ALT 170 H Alkaline Phosphatase 169 H Lactate Dehydrogenase C-Reactive Protein NT-Pro-B Natriuret Pep Total Protein 5.3 L Albumin 1.9 L Lipase Arterial Blood Glucose Ur Specific [place] Vancomycin Trough Coronavirus (PCR) 05/20/21 05/20/21 05/20/21 11:41 16:47 22:21 WBC RBC Hgb Hct MCV MCH RDW Plt Count Lymph % (Auto) Eos % (Auto) Lymph # (Auto) Eos # (Auto) Seg Neutrophils % Seg Neuts % (Manual) Lymphocytes % (Manual) Seg Neutrophils # Man Lymphocytes # (Manual) PT INR APTT D-Dimer ABG pH POC ABG pCO2 POC ABG pO2 ABG pO2 ABG HCO3 ABG O2 Saturation ABG Base Excess ABG Hemoglobin ABG Oxyhemoglobin ABG Sodium ABG Potassium ABG Chloride ABG Glucose Oxyhemoglobin Carboxyhemoglobin Sodium Potassium Chloride Carbon Dioxide BUN Creatinine Glucose POC Glucose 158 H 232 H 211 H Lactic Acid Calcium Phosphorus Magnesium Ferritin Total Bilirubin Direct Bilirubin AST ALT Alkaline Phosphatase Lactate Dehydrogenase C-Reactive Protein NT-Pro-B Natriuret Pep Total Protein Albumin Lipase Arterial Blood Glucose Ur Specific [place] Vancomycin Trough Coronavirus (PCR) 05/21/21 05/21/21 05/21/21 00:35 04:00 04:00 WBC RBC 3.28 L Hgb Hct MCV MCH RDW 18.7 H Plt Count 125 L Lymph % (Auto) Eos % (Auto) Lymph # (Auto) Eos # (Auto) Seg Neutrophils % Seg Neuts % (Manual) Lymphocytes % (Manual) Seg Neutrophils # Man Lymphocytes # (Manual) PT INR APTT D-Dimer ABG pH POC ABG pCO2 POC ABG pO2 ABG pO2 ABG HCO3 ABG O2 Saturation ABG Base Excess ABG Hemoglobin ABG Oxyhemoglobin ABG Sodium ABG Potassium ABG Chloride ABG Glucose Oxyhemoglobin Carboxyhemoglobin Sodium Potassium 5.1 H D Chloride 108.7 H Carbon Dioxide BUN 21 H Creatinine 0.2 L Glucose 242 H POC Glucose 230 H Lactic Acid Calcium 7.3 L Phosphorus Magnesium Ferritin Total Bilirubin Direct Bilirubin AST ALT Alkaline Phosphatase Lactate Dehydrogenase C-Reactive Protein NT-Pro-B Natriuret Pep Total Protein Albumin Lipase Arterial Blood Glucose Ur Specific [place] Vancomycin Trough Coronavirus (PCR) 05/21/21 05/21/21 05/21/21 05:08 11:47 17:43 WBC RBC Hgb Hct MCV MCH RDW Plt Count Lymph % (Auto) Eos % (Auto) Lymph # (Auto) Eos # (Auto) Seg Neutrophils % Seg Neuts % (Manual) Lymphocytes % (Manual) Seg Neutrophils # Man Lymphocytes # (Manual) PT INR APTT D-Dimer ABG pH POC ABG pCO2 POC ABG pO2 ABG pO2 ABG HCO3 ABG O2 Saturation ABG Base Excess ABG Hemoglobin ABG Oxyhemoglobin ABG Sodium ABG Potassium ABG Chloride ABG Glucose Oxyhemoglobin Carboxyhemoglobin Sodium Potassium Chloride Carbon Dioxide BUN Creatinine Glucose POC Glucose 196 H 139 H 147 H Lactic Acid Calcium Phosphorus Magnesium Ferritin Total Bilirubin Direct Bilirubin AST ALT Alkaline Phosphatase Lactate Dehydrogenase C-Reactive Protein NT-Pro-B Natriuret Pep Total Protein Albumin Lipase Arterial Blood Glucose Ur Specific [place] Vancomycin Trough Coronavirus (PCR) 05/21/21 05/21/21 05/22/21 17:57 23:32 04:16 WBC RBC Hgb Hct MCV MCH RDW Plt Count Lymph % (Auto) Eos % (Auto) Lymph # (Auto) Eos # (Auto) Seg Neutrophils % Seg Neuts % (Manual) Lymphocytes % (Manual) Seg Neutrophils # Man Lymphocytes # (Manual) PT INR APTT D-Dimer ABG pH POC ABG pCO2 POC ABG pO2 ABG pO2 ABG HCO3 ABG O2 Saturation ABG Base Excess ABG Hemoglobin ABG Oxyhemoglobin ABG Sodium ABG Potassium ABG Chloride ABG Glucose Oxyhemoglobin Carboxyhemoglobin Sodium Potassium 5.2 H Chloride Carbon Dioxide BUN 19 H Creatinine 0.2 L Glucose 154 H POC Glucose 218 H 185 H Lactic Acid Calcium 7.5 L Phosphorus Magnesium Ferritin Total Bilirubin 3.00 H Direct Bilirubin 2.3 H AST 437 H ALT 462 H Alkaline Phosphatase 186 H Lactate Dehydrogenase C-Reactive Protein NT-Pro-B Natriuret Pep Total Protein 5.5 L Albumin 1.9 L Lipase Arterial Blood Glucose Ur Specific [place] Vancomycin Trough Coronavirus (PCR) 05/22/21 05/22/21 05/22/21 04:30 04:30 04:30 WBC RBC Hgb Hct MCV MCH RDW Plt Count Lymph % (Auto) Eos % (Auto) Lymph # (Auto) Eos # (Auto) Seg Neutrophils % Seg Neuts % (Manual) Lymphocytes % (Manual) Seg Neutrophils # Man Lymphocytes # (Manual) PT 19.5 H INR 1.49 H APTT D-Dimer ABG pH POC ABG pCO2 POC ABG pO2 ABG pO2 ABG HCO3 ABG O2 Saturation ABG Base Excess ABG Hemoglobin ABG Oxyhemoglobin ABG Sodium ABG Potassium ABG Chloride ABG Glucose Oxyhemoglobin Carboxyhemoglobin Sodium 134 L Potassium Chloride Carbon Dioxide BUN 19 H Creatinine 0.2 L Glucose 208 H POC Glucose Lactic Acid Calcium 7.2 L Phosphorus 2.40 L D Magnesium Ferritin Total Bilirubin 2.20 H Direct Bilirubin AST 350 H ALT 496 H Alkaline Phosphatase 167 H Lactate Dehydrogenase C-Reactive Protein NT-Pro-B Natriuret Pep Total Protein 4.8 L Albumin 1.7 L Lipase Arterial Blood Glucose Ur Specific [place] Vancomycin Trough Coronavirus (PCR) 05/22/21 05/22/21 05/22/21 11:59 17:16 23:07 WBC RBC Hgb Hct MCV MCH RDW Plt Count Lymph % (Auto) Eos % (Auto) Lymph # (Auto) Eos # (Auto) Seg Neutrophils % Seg Neuts % (Manual) Lymphocytes % (Manual) Seg Neutrophils # Man Lymphocytes # (Manual) PT INR APTT D-Dimer ABG pH POC ABG pCO2 POC ABG pO2 ABG pO2 ABG HCO3 ABG O2 Saturation ABG Base Excess ABG Hemoglobin ABG Oxyhemoglobin ABG Sodium ABG Potassium ABG Chloride ABG Glucose Oxyhemoglobin Carboxyhemoglobin Sodium Potassium Chloride Carbon Dioxide BUN Creatinine Glucose POC Glucose 204 H 244 H 226 H Lactic Acid Calcium Phosphorus Magnesium Ferritin Total Bilirubin Direct Bilirubin AST ALT Alkaline Phosphatase Lactate Dehydrogenase C-Reactive Protein NT-Pro-B Natriuret Pep Total Protein Albumin Lipase Arterial Blood Glucose Ur Specific [place] Vancomycin Trough Coronavirus (PCR) 05/23/21 05/23/21 05/23/21 05:09 10:15 10:15 WBC RBC Hgb Hct MCV MCH RDW Plt Count Lymph % (Auto) Eos % (Auto) Lymph # (Auto) Eos # (Auto) Seg Neutrophils % Seg Neuts % (Manual) Lymphocytes % (Manual) Seg Neutrophils # Man Lymphocytes # (Manual) PT 16.9 H INR 1.24 H APTT D-Dimer ABG pH POC ABG pCO2 POC ABG pO2 ABG pO2 ABG HCO3 ABG O2 Saturation ABG Base Excess ABG Hemoglobin ABG Oxyhemoglobin ABG Sodium ABG Potassium ABG Chloride ABG Glucose Oxyhemoglobin Carboxyhemoglobin Sodium 131 L Potassium Chloride 97.5 L Carbon Dioxide BUN Creatinine < 0.2 L Glucose 248 H POC Glucose 175 H Lactic Acid Calcium 7.4 L Phosphorus Magnesium 1.60 L Ferritin Total Bilirubin Direct Bilirubin AST ALT Alkaline Phosphatase Lactate Dehydrogenase C-Reactive Protein NT-Pro-B Natriuret Pep Total Protein Albumin Lipase Arterial Blood Glucose Ur Specific [place] Vancomycin Trough Coronavirus (PCR) 05/23/21 05/23/21 05/24/21 10:15 21:46 04:16 WBC RBC Hgb Hct MCV MCH RDW Plt Count Lymph % (Auto) Eos % (Auto) Lymph # (Auto) Eos # (Auto) Seg Neutrophils % Seg Neuts % (Manual) Lymphocytes % (Manual) Seg Neutrophils # Man Lymphocytes # (Manual) PT INR APTT D-Dimer ABG pH POC ABG pCO2 POC ABG pO2 ABG pO2 ABG HCO3 ABG O2 Saturation ABG Base Excess ABG Hemoglobin ABG Oxyhemoglobin ABG Sodium ABG Potassium ABG Chloride ABG Glucose Oxyhemoglobin Carboxyhemoglobin Sodium 130 L Potassium 3.5 L Chloride 97.1 L Carbon Dioxide BUN Creatinine 0.2 L Glucose 235 H POC Glucose 190 H Lactic Acid Calcium 6.8 L Phosphorus Magnesium Ferritin Total Bilirubin 2.30 H Direct Bilirubin 1.6 H AST 161 H ALT 396 H Alkaline Phosphatase 186 H Lactate Dehydrogenase C-Reactive Protein NT-Pro-B Natriuret Pep Total Protein 4.7 L Albumin 2.0 L Lipase Arterial Blood Glucose Ur Specific [place] Vancomycin Trough Coronavirus (PCR) 05/24/21 05/25/21 05/25/21 05:32 04:25 04:25 WBC 11.7 H RBC 3.28 L Hgb Hct MCV MCH RDW 19.9 H Plt Count Lymph % (Auto) Eos % (Auto) Lymph # (Auto) Eos # (Auto) Seg Neutrophils % Seg Neuts % (Manual) Lymphocytes % (Manual) Seg Neutrophils # Man Lymphocytes # (Manual) PT INR APTT D-Dimer ABG pH POC ABG pCO2 POC ABG pO2 ABG pO2 ABG HCO3 ABG O2 Saturation ABG Base Excess ABG Hemoglobin ABG Oxyhemoglobin ABG Sodium ABG Potassium ABG Chloride ABG Glucose Oxyhemoglobin Carboxyhemoglobin Sodium 135 L Potassium 3.4 L Chloride Carbon Dioxide BUN Creatinine 0.2 L Glucose 105 H POC Glucose 208 H Lactic Acid Calcium 7.6 L Phosphorus Magnesium Ferritin Total Bilirubin Direct Bilirubin AST ALT Alkaline Phosphatase Lactate Dehydrogenase C-Reactive Protein NT-Pro-B Natriuret Pep Total Protein Albumin Lipase Arterial Blood Glucose Ur Specific [place] Vancomycin Trough Coronavirus (PCR) 05/26/21 05/26/21 05/26/21 11:37 16:57 20:59 WBC RBC Hgb Hct MCV MCH RDW Plt Count Lymph % (Auto) Eos % (Auto) Lymph # (Auto) Eos # (Auto) Seg Neutrophils % Seg Neuts % (Manual) Lymphocytes % (Manual) Seg Neutrophils # Man Lymphocytes # (Manual) PT INR APTT D-Dimer ABG pH POC ABG pCO2 POC ABG pO2 ABG pO2 ABG HCO3 ABG O2 Saturation ABG Base Excess ABG Hemoglobin ABG Oxyhemoglobin ABG Sodium ABG Potassium ABG Chloride ABG Glucose Oxyhemoglobin Carboxyhemoglobin Sodium Potassium Chloride Carbon Dioxide BUN Creatinine Glucose POC Glucose 136 H 214 H 137 H Lactic Acid Calcium Phosphorus Magnesium Ferritin Total Bilirubin Direct Bilirubin AST ALT Alkaline Phosphatase Lactate Dehydrogenase C-Reactive Protein NT-Pro-B Natriuret Pep Total Protein Albumin Lipase Arterial Blood Glucose Ur Specific [place] Vancomycin Trough Coronavirus (PCR) 05/26/21 05/27/21 05/27/21 23:52 05:40 16:49 WBC RBC Hgb Hct MCV MCH RDW Plt Count Lymph % (Auto) Eos % (Auto) Lymph # (Auto) Eos # (Auto) Seg Neutrophils % Seg Neuts % (Manual) Lymphocytes % (Manual) Seg Neutrophils # Man Lymphocytes # (Manual) PT INR APTT D-Dimer ABG pH POC ABG pCO2 POC ABG pO2 ABG pO2 ABG HCO3 ABG O2 Saturation ABG Base Excess ABG Hemoglobin ABG Oxyhemoglobin ABG Sodium ABG Potassium ABG Chloride ABG Glucose Oxyhemoglobin Carboxyhemoglobin Sodium Potassium Chloride Carbon Dioxide BUN Creatinine Glucose POC Glucose 111 H 144 H 213 H Lactic Acid Calcium Phosphorus Magnesium Ferritin Total Bilirubin Direct Bilirubin AST ALT Alkaline Phosphatase Lactate Dehydrogenase C-Reactive Protein NT-Pro-B Natriuret Pep Total Protein Albumin Lipase Arterial Blood Glucose Ur Specific [place] Vancomycin Trough Coronavirus (PCR) 05/27/21 05/27/21 05/28/21 21:07 23:57 11:59 WBC RBC Hgb Hct MCV MCH RDW Plt Count Lymph % (Auto) Eos % (Auto) Lymph # (Auto) Eos # (Auto) Seg Neutrophils % Seg Neuts % (Manual) Lymphocytes % (Manual) Seg Neutrophils # Man Lymphocytes # (Manual) PT INR APTT D-Dimer ABG pH POC ABG pCO2 POC ABG pO2 ABG pO2 ABG HCO3 ABG O2 Saturation ABG Base Excess ABG Hemoglobin ABG Oxyhemoglobin ABG Sodium ABG Potassium ABG Chloride ABG Glucose Oxyhemoglobin Carboxyhemoglobin Sodium Potassium Chloride Carbon Dioxide BUN Creatinine Glucose POC Glucose 135 H 157 H 130 H Lactic Acid Calcium Phosphorus Magnesium Ferritin Total Bilirubin Direct Bilirubin AST ALT Alkaline Phosphatase Lactate Dehydrogenase C-Reactive Protein NT-Pro-B Natriuret Pep Total Protein Albumin Lipase Arterial Blood Glucose Ur Specific [place] Vancomycin Trough Coronavirus (PCR) 05/28/21 05/29/21 05/29/21 17:05 01:03 05:07 WBC RBC Hgb Hct MCV MCH RDW Plt Count Lymph % (Auto) Eos % (Auto) Lymph # (Auto) Eos # (Auto) Seg Neutrophils % Seg Neuts % (Manual) Lymphocytes % (Manual) Seg Neutrophils # Man Lymphocytes # (Manual) PT INR APTT D-Dimer ABG pH POC ABG pCO2 POC ABG pO2 ABG pO2 ABG HCO3 ABG O2 Saturation ABG Base Excess ABG Hemoglobin ABG Oxyhemoglobin ABG Sodium ABG Potassium ABG Chloride ABG Glucose Oxyhemoglobin Carboxyhemoglobin Sodium 148 H D Potassium 3.0 L Chloride 108.0 H Carbon Dioxide BUN Creatinine 0.2 L Glucose 155 H POC Glucose 207 H 204 H Lactic Acid Calcium 7.7 L Phosphorus Magnesium Ferritin Total Bilirubin Direct Bilirubin AST ALT Alkaline Phosphatase Lactate Dehydrogenase C-Reactive Protein NT-Pro-B Natriuret Pep Total Protein Albumin Lipase Arterial Blood Glucose Ur Specific [place] Vancomycin Trough Coronavirus (PCR) 05/29/21 05/29/21 05/29/21 08:20 11:30 17:53 WBC RBC Hgb Hct MCV MCH RDW Plt Count Lymph % (Auto) Eos % (Auto) Lymph # (Auto) Eos # (Auto) Seg Neutrophils % Seg Neuts % (Manual) Lymphocytes % (Manual) Seg Neutrophils # Man Lymphocytes # (Manual) PT INR APTT D-Dimer ABG pH POC ABG pCO2 POC ABG pO2 ABG pO2 ABG HCO3 ABG O2 Saturation ABG Base Excess ABG Hemoglobin ABG Oxyhemoglobin ABG Sodium ABG Potassium ABG Chloride ABG Glucose Oxyhemoglobin Carboxyhemoglobin Sodium Potassium Chloride Carbon Dioxide BUN Creatinine Glucose POC Glucose 119 H 199 H Lactic Acid Calcium Phosphorus Magnesium Ferritin Total Bilirubin Direct Bilirubin AST ALT Alkaline Phosphatase Lactate Dehydrogenase C-Reactive Protein NT-Pro-B Natriuret Pep Total Protein Albumin Lipase Arterial Blood Glucose Ur Specific [place] Vancomycin Trough Coronavirus (PCR) Positive A 05/30/21 05/30/21 05/30/21 00:37 05:54 06:50 WBC RBC Hgb Hct MCV MCH RDW Plt Count Lymph % (Auto) Eos % (Auto) Lymph # (Auto) Eos # (Auto) Seg Neutrophils % Seg Neuts % (Manual) Lymphocytes % (Manual) Seg Neutrophils # Man Lymphocytes # (Manual) PT INR APTT D-Dimer ABG pH POC ABG pCO2 POC ABG pO2 ABG pO2 ABG HCO3 ABG O2 Saturation ABG Base Excess ABG Hemoglobin ABG Oxyhemoglobin ABG Sodium ABG Potassium ABG Chloride ABG Glucose Oxyhemoglobin Carboxyhemoglobin Sodium Potassium Chloride Carbon Dioxide BUN Creatinine Glucose POC Glucose 117 H 56 L 157 H Lactic Acid Calcium Phosphorus Magnesium Ferritin Total Bilirubin Direct Bilirubin AST ALT Alkaline Phosphatase Lactate Dehydrogenase C-Reactive Protein NT-Pro-B Natriuret Pep Total Protein Albumin Lipase Arterial Blood Glucose Ur Specific [place] Vancomycin Trough Coronavirus (PCR) 05/30/21 05/30/21 05/31/21 17:18 23:54 05:27 WBC RBC Hgb Hct MCV MCH RDW Plt Count Lymph % (Auto) Eos % (Auto) Lymph # (Auto) Eos # (Auto) Seg Neutrophils % Seg Neuts % (Manual) Lymphocytes % (Manual) Seg Neutrophils # Man Lymphocytes # (Manual) PT INR APTT D-Dimer ABG pH POC ABG pCO2 POC ABG pO2 ABG pO2 ABG HCO3 ABG O2 Saturation ABG Base Excess ABG Hemoglobin ABG Oxyhemoglobin ABG Sodium ABG Potassium ABG Chloride ABG Glucose Oxyhemoglobin Carboxyhemoglobin Sodium Potassium Chloride Carbon Dioxide BUN Creatinine Glucose POC Glucose 181 H 130 H 112 H Lactic Acid Calcium Phosphorus Magnesium Ferritin Total Bilirubin Direct Bilirubin AST ALT Alkaline Phosphatase Lactate Dehydrogenase C-Reactive Protein NT-Pro-B Natriuret Pep Total Protein Albumin Lipase Arterial Blood Glucose Ur Specific [place] Vancomycin Trough Coronavirus (PCR) 05/31/21 05/31/21 05/31/21 12:06 17:35 23:56 WBC RBC Hgb Hct MCV MCH RDW Plt Count Lymph % (Auto) Eos % (Auto) Lymph # (Auto) Eos # (Auto) Seg Neutrophils % Seg Neuts % (Manual) Lymphocytes % (Manual) Seg Neutrophils # Man Lymphocytes # (Manual) PT INR APTT D-Dimer ABG pH POC ABG pCO2 POC ABG pO2 ABG pO2 ABG HCO3 ABG O2 Saturation ABG Base Excess ABG Hemoglobin ABG Oxyhemoglobin ABG Sodium ABG Potassium ABG Chloride ABG Glucose Oxyhemoglobin Carboxyhemoglobin Sodium Potassium Chloride Carbon Dioxide BUN Creatinine Glucose POC Glucose 170 H 109 H 136 H Lactic Acid Calcium Phosphorus Magnesium Ferritin Total Bilirubin Direct Bilirubin AST ALT Alkaline Phosphatase Lactate Dehydrogenase C-Reactive Protein NT-Pro-B Natriuret Pep Total Protein Albumin Lipase Arterial Blood Glucose Ur Specific [place] Vancomycin Trough Coronavirus (PCR) 06/02/21 06/02/21 06/02/21 04:28 05:36 08:59 WBC RBC 3.31 L Hgb Hct MCV 100 H MCH RDW 24.7 H Plt Count Lymph % (Auto) 12.8 L Eos % (Auto) 10.2 H Lymph # (Auto) 0.6 L Eos # (Auto) 0.5 H Seg Neutrophils % 75.5 H Seg Neuts % (Manual) Lymphocytes % (Manual) Seg Neutrophils # Man Lymphocytes # (Manual) PT INR APTT D-Dimer ABG pH 7.258 L 7.251 L POC ABG pCO2 73.4 H 67.7 H POC ABG pO2 33.0 L 189.6 H ABG pO2 ABG HCO3 ABG O2 Saturation ABG Base Excess ABG Hemoglobin 11.8 L 11.8 L ABG Oxyhemoglobin 48.8 L ABG Sodium 146.7 H 146.3 H ABG Potassium 3.1 L ABG Chloride 109.0 H ABG Glucose 64 L Oxyhemoglobin Carboxyhemoglobin 1.6 H Sodium Potassium Chloride Carbon Dioxide BUN Creatinine Glucose POC Glucose Lactic Acid Calcium Phosphorus Magnesium Ferritin Total Bilirubin Direct Bilirubin AST ALT Alkaline Phosphatase Lactate Dehydrogenase C-Reactive Protein NT-Pro-B Natriuret Pep Total Protein Albumin Lipase Arterial Blood Glucose 64 L Ur Specific [place] Vancomycin Trough Coronavirus (PCR) 06/02/21 06/02/21 06/02/21 08:59 11:39 14:50 WBC RBC Hgb Hct MCV MCH RDW Plt Count Lymph % (Auto) Eos % (Auto) Lymph # (Auto) Eos # (Auto) Seg Neutrophils % Seg Neuts % (Manual) Lymphocytes % (Manual) Seg Neutrophils # Man Lymphocytes # (Manual) PT INR APTT D-Dimer ABG pH 7.339 L POC ABG pCO2 POC ABG pO2 ABG pO2 91.4 H ABG HCO3 26.2 H ABG O2 Saturation ABG Base Excess ABG Hemoglobin 11.3 L ABG Oxyhemoglobin ABG Sodium ABG Potassium ABG Chloride ABG Glucose Oxyhemoglobin 93.7 L Carboxyhemoglobin Sodium 148 H Potassium 2.9 L* Chloride 111.1 H Carbon Dioxide BUN Creatinine 0.3 L Glucose 29 L* POC Glucose 140 H Lactic Acid Calcium 7.7 L Phosphorus Magnesium 1.50 L Ferritin Total Bilirubin Direct Bilirubin AST ALT Alkaline Phosphatase Lactate Dehydrogenase C-Reactive Protein NT-Pro-B Natriuret Pep Total Protein Albumin Lipase Arterial Blood Glucose Ur Specific [place] Vancomycin Trough Coronavirus (PCR) 06/02/21 06/02/21 06/02/21 17:49 19:47 21:30 WBC RBC Hgb Hct MCV MCH RDW Plt Count Lymph % (Auto) Eos % (Auto) Lymph # (Auto) Eos # (Auto) Seg Neutrophils % Seg Neuts % (Manual) Lymphocytes % (Manual) Seg Neutrophils # Man Lymphocytes # (Manual) PT INR APTT D-Dimer ABG pH POC ABG pCO2 POC ABG pO2 ABG pO2 ABG HCO3 ABG O2 Saturation ABG Base Excess ABG Hemoglobin ABG Oxyhemoglobin ABG Sodium ABG Potassium ABG Chloride ABG Glucose Oxyhemoglobin Carboxyhemoglobin Sodium Potassium Chloride 109.6 H Carbon Dioxide 21 L D BUN Creatinine Glucose 123 H POC Glucose 67 L 117 H Lactic Acid Calcium 7.5 L Phosphorus 5.20 H D Magnesium 2.90 H Ferritin Total Bilirubin Direct Bilirubin AST ALT Alkaline Phosphatase Lactate Dehydrogenase C-Reactive Protein NT-Pro-B Natriuret Pep Total Protein Albumin Lipase Arterial Blood Glucose Ur Specific [place] Vancomycin Trough Coronavirus (PCR) 06/02/21 06/02/21 06/02/21 21:30 22:00 23:10 WBC RBC Hgb Hct MCV MCH RDW Plt Count Lymph % (Auto) Eos % (Auto) Lymph # (Auto) Eos # (Auto) Seg Neutrophils % Seg Neuts % (Manual) Lymphocytes % (Manual) Seg Neutrophils # Man Lymphocytes # (Manual) PT INR APTT D-Dimer ABG pH POC ABG pCO2 POC ABG pO2 ABG pO2 ABG HCO3 ABG O2 Saturation ABG Base Excess ABG Hemoglobin ABG Oxyhemoglobin ABG Sodium ABG Potassium ABG Chloride ABG Glucose Oxyhemoglobin Carboxyhemoglobin Sodium 147 H Potassium Chloride 111.7 H Carbon Dioxide BUN Creatinine Glucose 105 H POC Glucose 122 H Lactic Acid Calcium 7.5 L Phosphorus Magnesium Ferritin Total Bilirubin Direct Bilirubin AST 74 H ALT 96 H Alkaline Phosphatase 207 H Lactate Dehydrogenase C-Reactive Protein NT-Pro-B Natriuret Pep 2326 H Total Protein 5.0 L Albumin 2.0 L Lipase Arterial Blood Glucose Ur Specific [place] Vancomycin Trough Coronavirus (PCR) 06/03/21 06/03/21 06/03/21 04:45 04:45 04:45 WBC 13.6 H RBC 3.44 L Hgb Hct MCV 102 H MCH RDW 25.4 H Plt Count Lymph % (Auto) Eos % (Auto) Lymph # (Auto) Eos # (Auto) Seg Neutrophils % Seg Neuts % (Manual) Lymphocytes % (Manual) Seg Neutrophils # Man Lymphocytes # (Manual) PT INR APTT D-Dimer ABG pH POC ABG pCO2 POC ABG pO2 ABG pO2 ABG HCO3 ABG O2 Saturation ABG Base Excess ABG Hemoglobin ABG Oxyhemoglobin ABG Sodium ABG Potassium ABG Chloride ABG Glucose Oxyhemoglobin Carboxyhemoglobin Sodium Potassium Chloride Carbon Dioxide BUN Creatinine Glucose 151 H POC Glucose Lactic Acid Calcium 7.6 L Phosphorus 6.70 H D Magnesium Ferritin Total Bilirubin Direct Bilirubin AST 68 H ALT 103 H Alkaline Phosphatase 226 H Lactate Dehydrogenase C-Reactive Protein NT-Pro-B Natriuret Pep Total Protein 6.0 L Albumin 2.0 L Lipase Arterial Blood Glucose Ur Specific [place] Vancomycin Trough Coronavirus (PCR) 06/03/21 06/03/21 06/03/21 05:02 10:00 11:46 WBC RBC Hgb Hct MCV MCH RDW Plt Count Lymph % (Auto) Eos % (Auto) Lymph # (Auto) Eos # (Auto) Seg Neutrophils % Seg Neuts % (Manual) Lymphocytes % (Manual) Seg Neutrophils # Man Lymphocytes # (Manual) PT INR APTT D-Dimer ABG pH 7.312 L POC ABG pCO2 POC ABG pO2 ABG pO2 68.5 L ABG HCO3 ABG O2 Saturation 93.0 L ABG Base Excess ABG Hemoglobin 11.5 L ABG Oxyhemoglobin ABG Sodium ABG Potassium ABG Chloride ABG Glucose Oxyhemoglobin 90.1 L Carboxyhemoglobin Sodium Potassium Chloride Carbon Dioxide BUN Creatinine Glucose POC Glucose 139 H 150 H Lactic Acid Calcium Phosphorus Magnesium Ferritin Total Bilirubin Direct Bilirubin AST ALT Alkaline Phosphatase Lactate Dehydrogenase C-Reactive Protein NT-Pro-B Natriuret Pep Total Protein Albumin Lipase Arterial Blood Glucose Ur Specific [place] Vancomycin Trough Coronavirus (PCR) 06/03/21 06/03/2122 17:19 23:01 04:00 WBC RBC 2.99 L Hgb 9.7 L Hct 30.0 L MCV 101 H MCH 33 H RDW 25.3 H Plt Count Lymph % (Auto) Eos % (Auto) Lymph # (Auto) Eos # (Auto) Seg Neutrophils % Seg Neuts % (Manual) Lymphocytes % (Manual) Seg Neutrophils # Man Lymphocytes # (Manual) PT INR APTT D-Dimer ABG pH POC ABG pCO2 POC ABG pO2 ABG pO2 ABG HCO3 ABG O2 Saturation ABG Base Excess ABG Hemoglobin ABG Oxyhemoglobin ABG Sodium ABG Potassium ABG Chloride ABG Glucose Oxyhemoglobin Carboxyhemoglobin Sodium Potassium Chloride Carbon Dioxide BUN Creatinine Glucose POC Glucose 135 H 164 H Lactic Acid Calcium Phosphorus Magnesium Ferritin Total Bilirubin Direct Bilirubin AST ALT Alkaline Phosphatase Lactate Dehydrogenase C-Reactive Protein NT-Pro-B Natriuret Pep Total Protein Albumin Lipase Arterial Blood Glucose Ur Specific [place] Vancomycin Trough Coronavirus (PCR) 06/04/21 06/04/21 06/04/21 04:40 05:02 10:00 WBC RBC Hgb Hct MCV MCH RDW Plt Count Lymph % (Auto) Eos % (Auto) Lymph # (Auto) Eos # (Auto) Seg Neutrophils % Seg Neuts % (Manual) Lymphocytes % (Manual) Seg Neutrophils # Man Lymphocytes # (Manual) PT INR APTT D-Dimer ABG pH POC ABG pCO2 52.2 H POC ABG pO2 82.9 L ABG pO2 ABG HCO3 ABG O2 Saturation ABG Base Excess ABG Hemoglobin ABG Oxyhemoglobin ABG Sodium 135.4 L ABG Potassium ABG Chloride ABG Glucose 163 H Oxyhemoglobin Carboxyhemoglobin 1.7 H Sodium Potassium Chloride Carbon Dioxide BUN 19 H Creatinine 0.5 L Glucose 150 H POC Glucose 137 H Lactic Acid Calcium 8.0 L Phosphorus Magnesium Ferritin Total Bilirubin Direct Bilirubin AST ALT 70 H Alkaline Phosphatase 204 H Lactate Dehydrogenase C-Reactive Protein NT-Pro-B Natriuret Pep Total Protein 5.7 L Albumin 1.8 L Lipase Arterial Blood Glucose 163 H Ur Specific [place] Vancomycin Trough Coronavirus (PCR) 06/04/21 06/04/21 06/04/21 12:09 17:43 17:49 WBC RBC Hgb Hct MCV MCH RDW Plt Count Lymph % (Auto) Eos % (Auto) Lymph # (Auto) Eos # (Auto) Seg Neutrophils % Seg Neuts % (Manual) Lymphocytes % (Manual) Seg Neutrophils # Man Lymphocytes # (Manual) PT INR APTT D-Dimer ABG pH POC ABG pCO2 POC ABG pO2 66.6 L ABG pO2 ABG HCO3 ABG O2 Saturation ABG Base Excess ABG Hemoglobin 11.2 L ABG Oxyhemoglobin 91.9 L ABG Sodium 134.9 L ABG Potassium ABG Chloride 97.0 L ABG Glucose 181 H Oxyhemoglobin Carboxyhemoglobin Sodium Potassium Chloride Carbon Dioxide BUN Creatinine Glucose POC Glucose 160 H 170 H Lactic Acid Calcium Phosphorus Magnesium Ferritin Total Bilirubin Direct Bilirubin AST ALT Alkaline Phosphatase Lactate Dehydrogenase C-Reactive Protein NT-Pro-B Natriuret Pep Total Protein Albumin Lipase Arterial Blood Glucose 181 H Ur Specific [place] Vancomycin Trough Coronavirus (PCR) 06/04/21 06/05/21 06/05/21 23:31 06:00 06:00 WBC RBC 3.13 L Hgb 10.0 L Hct MCV 100 H MCH RDW 24.6 H Plt Count 127 L Lymph % (Auto) Eos % (Auto) Lymph # (Auto) Eos # (Auto) Seg Neutrophils % Seg Neuts % (Manual) Lymphocytes % (Manual) Seg Neutrophils # Man Lymphocytes # (Manual) PT INR APTT D-Dimer ABG pH POC ABG pCO2 POC ABG pO2 ABG pO2 ABG HCO3 ABG O2 Saturation ABG Base Excess ABG Hemoglobin ABG Oxyhemoglobin ABG Sodium ABG Potassium ABG Chloride ABG Glucose Oxyhemoglobin Carboxyhemoglobin Sodium 136 L Potassium Chloride 94.2 L Carbon Dioxide 32 H BUN Creatinine 0.3 L Glucose 241 H POC Glucose 149 H Lactic Acid Calcium 8.3 L Phosphorus Magnesium Ferritin Total Bilirubin Direct Bilirubin AST ALT Alkaline Phosphatase 219 H Lactate Dehydrogenase 301 H C-Reactive Protein 22.40 H NT-Pro-B Natriuret Pep Total Protein 6.2 L Albumin 1.8 L Lipase Arterial Blood Glucose Ur Specific [place] Vancomycin Trough Coronavirus (PCR) 06/05/21 06/05/21 06/05/21 06:00 06:00 06:12 WBC RBC Hgb Hct MCV MCH RDW Plt Count Lymph % (Auto) Eos % (Auto) Lymph # (Auto) Eos # (Auto) Seg Neutrophils % Seg Neuts % (Manual) Lymphocytes % (Manual) Seg Neutrophils # Man Lymphocytes # (Manual) PT 15.9 H INR 1.15 H APTT 37.1 H D-Dimer 1282.85 H ABG pH POC ABG pCO2 POC ABG pO2 ABG pO2 ABG HCO3 ABG O2 Saturation ABG Base Excess ABG Hemoglobin ABG Oxyhemoglobin ABG Sodium ABG Potassium ABG Chloride ABG Glucose Oxyhemoglobin Carboxyhemoglobin Sodium Potassium Chloride Carbon Dioxide BUN Creatinine Glucose POC Glucose 228 H Lactic Acid Calcium Phosphorus Magnesium Ferritin 717.1 H Total Bilirubin Direct Bilirubin AST ALT Alkaline Phosphatase Lactate Dehydrogenase C-Reactive Protein NT-Pro-B Natriuret Pep Total Protein Albumin Lipase Arterial Blood Glucose Ur Specific [place] Vancomycin Trough Coronavirus (PCR) 06/05/21 06/05/21 09:17 12:20 WBC RBC Hgb Hct MCV MCH RDW Plt Count Lymph % (Auto) Eos % (Auto) Lymph # (Auto) Eos # (Auto) Seg Neutrophils % Seg Neuts % (Manual) Lymphocytes % (Manual) Seg Neutrophils # Man Lymphocytes # (Manual) PT INR APTT D-Dimer ABG pH POC ABG pCO2 54.0 H POC ABG pO2 140.6 H ABG pO2 ABG HCO3 ABG O2 Saturation ABG Base Excess ABG Hemoglobin 10.3 L ABG Oxyhemoglobin ABG Sodium 133.6 L ABG Potassium 3.3 L ABG Chloride 97.0 L ABG Glucose 179 H Oxyhemoglobin Carboxyhemoglobin Sodium Potassium Chloride Carbon Dioxide BUN Creatinine Glucose POC Glucose 220 H Lactic Acid Calcium Phosphorus Magnesium Ferritin Total Bilirubin Direct Bilirubin AST ALT Alkaline Phosphatase Lactate Dehydrogenase C-Reactive Protein NT-Pro-B Natriuret Pep Total Protein Albumin Lipase Arterial Blood Glucose 179 H Ur Specific [place] Vancomycin Trough Coronavirus (PCR) Chest x-ray: image reviewed (slightly improved but persistent bilateral infiltrates) Allied health notes reviewed: nursing
--- NOTE | 2021-06-05 16:26 | Progress Note ---
Assessment and Plan Assessment and plan: This is a 48-year-old female with COPD, pancreatic cancer with radiation s/p pancreatic stent placement, pulmonary fibrosis, chronic respiratory failure on 2 L nasal cannula admitted with sepsis, transaminitis and lactic acidosis now with COVID 19 PNA. Neuro: Sedated -Sedated with propofol and fentanyl -RASS goal 0 to -1 -Avoid delirium -Reorientation as needed -Maintain sleep-wake cycle -Daily SAT and SBT when appropriate CV: Hypotension, h/o HTN -Hold home htn medications -Vasopressor support with levo -maintain MAP > 65mmhg -titrated off -BP monitoring per protocol -Hold home htn medications -s/p IV Lasix X 3 days Respiratory: Acute on chronic respiratory failure, h/o pulmonary fibrosis, acute on chronic respiratory failure on home O2 of 2 L nasal cannula -Intubated on 06/02 with 7.5 oett with 22 @ lips -AM vent settings: AC Rate 20, TV 450, Peep 10,FiO2 85% -[facility] made vent changes -VAP bundle -s/p Bipap and Optiflow -Pulmicort, brovana -Daily SBT and SAT trials as tolerated -Daily ABG and CXR per [facility] -Continuos SPO2 monitoring -goal above 92% GI: Transaminitis, protein calorie malnutrition, biliary dilation, r/o cholangitis, h/o pancreatic cancer s/p stent placement -CT abdomen/pelvis showed pancreatic cancer with metallic stent with possible occlusion, mild pelvic fluid and mild colonic thickening -GI consulted, appreciate recommendations -MRCP pending-> plan for once respiratory status stable -If stent occlusion/biliary obstruction would recommend IR consult for PTC drain per GI -Ntr consult for TF -ST evaluation -PPI -BR: senokat -24-hour +423 mL -Acute hepatitis panel negative -Trend LFTs -Abd US shows findings similar to hepatomegaly and steatosis without significant abnormalities in the right quadrant -Bentyl QID : Urinary retention, hypernaturemia (resolved), hypochloremia -Strict intake and output -Almaraz replaced 06/05 d/t retention -FWF reduced to original ntr orders -Daily weights -Renally dose meds -Avoid nephrotoxins -Trend BMP Endo: Hyperglycemia, s/p hypoglycemia -Hypoglycemia protocol -Avoid hypoglycemia -SSI every 6 hours -Lantus, titrate as needed ID: Septic shock, COVID 19 PNA, Lactic acidosis (improving), GNR in tracheal aspirate -COVID 19 PCR (+), initial COVID 19 PCR (-) -Blood cultures x2 no growth to date -Remdisivir 06/03-06/06 -trend LFTS -Dexamethasone 05/28-06/07 -s/p IV meropenem -06/03 tracheal aspirate with GNR -will hold off treating d/t normal WBC and afebrile -will hold off treatment till speciation -Contact/droplet precautions -Monitor WBC and fever curve -Vitamin C/D/zinc -Trend COVID 19 inflammatory marker Heme: Elevated INR, thormbocytopenia, elevated ddimer -Trend CBC -Transfuse for hemoglobin less than 7 -SCD to bilateral lower extremities while in bed -Lovenox subcu->changed to arixta -BLE doppplar US pending -HIT pending -RUE swelling- RUE doppler neg DVT Oncology: h/o pancreatic head cancer -F/U with outpatient oncologist -Currently on radiation -Not a surgical candidate per GI -Right chest post accessed The high probability of a clinically significant, sudden or life threatening deterioration of the [resp, GI] system(s) required my full and direct attention, intervention and personal management. The aggregate critical care time was [60] minutes. This time is in addition to time spent performing reported procedures but includes the following: [x] Data Review and interpretation [x] Patient assessment and monitoring of vital signs [x] Documentation [x] Medication orders and management Disposition Plan: icu Total Time Spent with Patient (Minutes): 60 History Interval history: This is a 51-year-old female with COPD, pancreatic cancer and radiation, s/p pancreatic stent placement, pulmonary fibrosis, hypertension and chronic r espiratory failure on 2 L oxygen via nasal cannula who presented to emergency department on 05/11 with complaints of right upper quadrant pain which started approximately at 0200 with nausea and vomiting. Work-up in the emergency department included a CTA chest which showed no pulmonary embolism, mild fluid- filled esophagus and distended stomach with bilateral interstitial opacity in the chest, and CT abdomen/pelvis with contrast which showed persistent pancreatic carcinoma with indwelling metallic stent which is suspected to be occluded. Lab work revealed leukocytosis, transaminitis and lactic acidosis. Patient became hypotensive in the emergency department and required 3 L of IV fluid and was eventually started on vasopressors after placement of femoral central line. Patient was started on empiric antibiotics. Admitted to the hospitalist service with consults to GI and [facility] for transaminitis, possible sepsis, and lactic acidosis. she was set to discharge to hospice however she te st positive to COVID 19 and was eventually intubated. 05/12: Patient remains on high-dose Levophed and vasopressin. Given 1 L LR bolus. GI would like an MRCP to be conducted which has been ordered. Patient cleared for sips of water. Added Tessalon due to severe cough. Potassium repleted. Covid PCR negative. 05/13: Remains on Levophed and vasopressin has been off since yesterday evening. Started on stress dose steroids. MRCP pending. Hypokalemia, hypomagnesemia and hypophosphatemia repleted. Liver enzymes trending down. Started on D5 normal saline yesterday. 05/14: Patient with worsen respiratory status this am, tachypneic with increased O2 requirement. On full support on the Bipap this am with worsening diffuse bilateral opacities on CXR, s/p X1 dose of IV lasix overnight. Patient remains afebrile with no leukocytosis. Will continue IV Lasix X3 doses, f/u CXR in the am. D/W CCM due to patient worsening respiratory status hold on MRCP for today. Patient is off Levophed this am, leave pressors on standby might need to be put back on low dose pressors with IV diuretic. Patient also noted with Rt. fem CVC which was inserted in the ED, most likely due to be change, unsuccessfult PICC by IVT today and patient is refusing Port access at this time. 05/15: Patient remains on continuous Bipap overnight, desat when bipap is removed for mouth care. Plan to wean Fio2 as tolerated for SPO2 goal above 90%. Febrile overnight, TMAX 101.4, on IV abx zosyn, repeat blood culture ordered. Low K and phosph repleted, repeat labs in the am. 05/16: Patient back on full support on the Bipap, still not tolerating FiO2 wean, patient desat in the 80s. D/w CCM plan to continue continuous bipap for now, patient going on over 4 days with no nutrition plan to initiate TPN tomorrow. D10w gtt added for hypoglycemia. Patient platelet continue to steadily drop, given patient's history with continue AC for now, H&H is stable, no s/s of any active bleeding. Electrolytes repleted, will continue to trend CBC, BMP, mg, and phos. MRCP canceled, plan to reorder once patient's respiratory status is more stable. 05/17: Patient remains on continuous Bipap. Patient remains on low dose Levoph ed, plan to wean off pressors as tolerated for a MAP above 65. Clinimix initiated overnight, plan to start TPN tonight. Hyperglycemic overnight, SSI was initiated. Low phos repleted, repeat lab in the am. 05/18: Down to 60% FIo2 on the Bipap, SPO2 above 97%. Off pressros this am, TPN is running. Patient is now hyperglycemic, SSI adjusted. Consider basal dose, lantus if hyperglycemia persist. This am labs noted, hyperkalemia and really high glucose noted totally different from normal trend, orders placed for redraw. 05/19: Overnight events noted. Started on PRN haldol for agitation. Patient p laced on heated high Flow at 100%, 40L SPO2 at 100%. Continue to wean Fio2 as tolerated for SPO2 for SPO2 above 92%. Continue TPN for now. Patient still hyperglycemic basal dose lantus added Qhs. 05/20: Patient is tolerating HHFL NC, SPO2 above 95%. Continue HHFL NC during and Bipap at night. Still on TPN for nutrition, hyperglycemia persists- basal insulin increased. Low K and phosp was repleted, repeat lab in the am. 05/21: Patient unable to tolerate OptiFlow for more than couple hours and was placed back on BiPAP due to desaturation. Patient remains on TPN for nutrition which was held today due to hyperkalemia. P.m. BMP ordered but not collected. Patient refused to have port accessed and PICC line ordered. Down grading to [facility] status 05/22: abdominal ultrasound shows findings of emergency megaly and steatosis without other significant abnormality in the right upper quadrant. ST eval ordered and Ntr consult for cyclic TF. midline ordered 05/21 abdominal ultrasound shows findings of emergency megaly and steatosis without other significant abnormality in the right upper quadrant. ST eval ordered and Ntr consult for cyclic TF. midline ordered 05/23/ Patient with acute on chronic resp failure, COPD, pancreatic cancer. She has been transferred to IMCU. She is on BIPAP Hypomag. Replace and recheck in am 05/24/21 Patient with acute on chronic resp failure. Still on BIPAP. To start tube feeding 05/25/21: Patient with acute on chronic respiratory failure, She desaturated d own to Oxygen sat 85% today, Will order CT Angio to r/o pulmonary embolism 05/26/21: patient remains on bipap, o2 sat in 90s. CT angio not completed yesterday as patient could not lay flat. Add dilaudid for improved pain control to patient medications and advised member of technical staff to re-attempt CT angio. Patient has a poor prognosis given pulmonary fibrosis and pancreatic cancer. Will likely re- visit talks of palliaitive care as she may benefit more from this. 05/27/21: Remains bipap dependent. D/w patient regarding comfort care/hospice, she is interested. CM consulted. Patient would still like to remain full code 05/28/21: Remains bipap dependent. Spoke with Eriberto (daughter) who states that she is in agreement for comfort measures for her mother. Coordinating with case management for inpatient hospice referral. Daughter also requested to see her mother in person. Unfortunately due to visitation limitations as a result of the COVID-19 pandemic, daughter will only be able to communicate via telecommunication devices at this time. Care staff was notified the patient is [place]-speaking and to call the daughter if they would like to communicate with the patient. 05/29/2021: Spoke with Eriberto (daughter) who states that she is in agreement for comfort measures for her mother. Referral made to [facility]. Patient will discharge to inpatient hospice today. 05/30/2021: Patient's covid test results returned positive. Patient's pending discharge was cancelled as inpatient hospice will not accept a covid + patient. Case Management met with patient's daughter to update on status. Patient's prognosis remains poor. Patient on BiPAP (IPAP 15, EPAP 10, FiO2 85%). Patient started on steroids yesterday and we will start remdesivir today. I discussed the case with pulmonary. Patient will remain a full code I discussed the case with the daughter. 05/31/2021: Patient remains on BiPAP (IPAP 15, EPAP 10, FiO2 80%). Patient's prognosis remains poor. Continue steroids and remdesivir. 06/01/2021. Patient currently off BiPAP and with high flow nasal cannula/no nrebreather 40 L O2 with FiO2 of 100%. Continue BiPAP at night. Patient will be intubated and placed on mechanical ventilation if she decompensates. Patient's prognosis remains poor. Continue steroids and remdesivir. Pulmonary Taper dexamethasone to 4 mg IV daily. Follow-up serial chest x-ray and ABGs. Patient with gentle diuresis with Lasix 20 mg IV daily. 06/02: Patient intubated and sedated, RASS -5. Now hypotensive with tachycardia, on levophed gtt, continue continuous IVF and titrate pressors for MAP above 65. Hypokalemia and hypomagnesemia repleted, repeat labs 4hrs post treatment. Severely hypoglycemic this am, per RN TF has been on hold since patient was on Bipap. Low BG treated per hypoglycemic protocol, plan to resume TF today. 06/03: RASS of 0 to -1 this am, following commands, remains on sedation. Mizra in WBCs this am, patient remains afebrile, blood culture and sputum culture pending. Probably reactive, patient on IV steroids, remdesevir starting tonight. Continue to trend CBC. Conference call with [facility] and patient's son and daughter today. All questions and concerns were addressed. 06/04: started on stress dose steroids, BLE dopplars pending, Remove almaraz and request records. 06/05: HIT panel sent today, started Arixtra, decrease free water flush, almaraz replaced re retention, Will not treat gram-negative in tracheal aspirate until speciation given normal WBCs and afebrile state. increase in the long acting insulin. Levophed titrated off Hospitalist Physical - Constitutional Vitals: Temp Pulse Resp BP Pulse Ox 97.1 F L 106 H 30 H 127/80 93 06/05/21 12:00 06/05/21 14:15 06/05/21 14:15 06/05/21 14:15 06/05/21 14:15 General appearance: Present: no acute distress, other (Intubated and Sedated) - EENT Eyes: Present: PERRL, EOM intact ENT: clear oral mucosa - Neck Neck: Present: normal ROM - Respiratory Respiratory effort: normal Respiratory: bilateral: diminished - Cardiovascular Rhythm: regular Heart Sounds: Present: S1 & S2. Absent: systolic murmur, diastolic murmur - Extremities Extremities: no ischemia, pulses intact, pulses symmetrical, No edema, normal temperature, normal color Peripheral Pulses: within normal limits - Abdominal General gastrointestinal: soft, non-tender, non-distended, normal bowel sounds - Integumentary Integumentary: Present: warm, dry - Psychiatric Psychiatric: other - Neurologic Neurologic: other (sedated) - Allied Health Allied health notes reviewed: nursing, RT, social work Results - Labs CBC & Chem 7: 06/05/21 06:00 06/05/21 06:00 Labs: Laboratory Last Values WBC 5.2 K/mm3 (4.5-11.0) 06/05/21 06:00 RBC 3.13 M/mm3 (3.65-5.03) L 06/05/21 06:00 Hgb 10.0 gm/dl (10.1-14.3) L 06/05/21 06:00 Hct 31.4 % (30.3-42.9) 06/05/21 06:00 MCV 100 fl (79-97) H 06/05/21 06:00 MCH 32 pg (28-32) 06/05/21 06:00 MCHC 32 % (30-34) 06/05/21 06:00 RDW 24.6 % (13.2-15.2) H 06/05/21 06:00 Plt Count 127 K/mm3 (140-440) L 06/05/21 06:00 Lymph % (Auto) 12.8 % (13.4-35.0) L 06/02/21 08:59 [place] % (Auto) 1.0 % (0.0-7.3) 06/02/21 08:59 Eos % (Auto) 10.2 % (0.0-4.3) H 06/02/21 08:59 Baso % (Auto) 0.5 % (0.0-1.8) 06/02/21 08:59 Lymph # (Auto) 0.6 K/mm3 (1.2-5.4) L 06/02/21 08:59 [place] # (Auto) 0.0 K/mm3 (0.0-0.8) 06/02/21 08:59 Eos # (Auto) 0.5 K/mm3 (0.0-0.4) H 06/02/21 08:59 Baso # (Auto) 0.0 K/mm3 (0.0-0.1) 06/02/21 08:59 Add Manual Diff Complete 05/12/21 04:08 Total Counted 200 05/12/21 04:08 Seg Neutrophils % 75.5 % (40.0-70.0) H 06/02/21 08:59 Seg Neuts % (Manual) 85.5 % (40.0-70.0) H 05/12/21 04:08 Band Neutrophils % 8.5 % 05/12/21 04:08 Lymphocytes % (Manual) 2.0 % (13.4-35.0) L 05/12/21 04:08 Monocytes % (Manual) 3.0 % (0.0-7.3) 05/12/21 04:08 Eosinophils % (Manual) 1.0 % (0.0-4.3) 05/12/21 04:08 Nucleated RBC % Not Reportable 05/12/21 04:08 Seg Neutrophils # 3.6 K/mm3 (1.8-7.7) 06/02/21 08:59 Seg Neutrophils # Man 19.5 K/mm3 (1.8-7.7) H 05/12/21 04:08 Band Neutrophils # 1.9 K/mm3 05/12/21 04:08 Lymphocytes # (Manual) 0.5 K/mm3 (1.2-5.4) L 05/12/21 04:08 Abs React Lymphs (Man) 0.0 K/mm3 05/12/21 04:08 Monocytes # (Manual) 0.7 K/mm3 (0.0-0.8) 05/12/21 04:08 Eosinophils # (Manual) 0.2 K/mm3 (0.0-0.4) 05/12/21 04:08 Basophils # (Manual) 0.0 K/mm3 (0.0-0.1) 05/12/21 04:08 Metamyelocytes # 0.0 K/mm3 05/12/21 04:08 Myelocytes # 0.0 K/mm3 05/12/21 04:08 Promyelocytes # 0.0 K/mm3 05/12/21 04:08 Blast Cells # 0.0 K/mm3 05/12/21 04:08 WBC Morphology Not Reportable 05/12/21 04:08 Hypersegmented Neuts Not Reportable 05/12/21 04:08 Hyposegmented Neuts Not Reportable 05/12/21 04:08 Hypogranular Neuts Not Reportable 05/12/21 04:08 Smudge Cells Not Reportable 05/12/21 04:08 Toxic Granulation Not Reportable 05/12/21 04:08 Toxic Vacuolation Not Reportable 05/12/21 04:08 Dohle Bodies Not Reportable 05/12/21 04:08 Pelger-Huet Anomaly Not Reportable 05/12/21 04:08 Elizabeth Rods Not Reportable 05/12/21 04:08 Platelet Estimate Consistent w auto 05/12/21 04:08 Clumped Platelets Not Reportable 05/12/21 04:08 Plt Clumps, EDTA Not Reportable 05/12/21 04:08 Large Platelets Not Reportable 05/12/21 04:08 Giant Platelets Not Reportable 05/12/21 04:08 Platelet Satelliting Not Reportable 05/12/21 04:08 Plt Morphology Comment Not Reportable 05/12/21 04:08 RBC Morphology Not Reportable 05/12/21 04:08 Dimorphic RBCs Not Reportable 05/12/21 04:08 Polychromasia Not Reportable 05/12/21 04:08 Hypochromasia Not Reportable 05/12/21 04:08 Poikilocytosis Not Reportable 05/12/21 04:08 Anisocytosis 1+ 05/12/21 04:08 Microcytosis Not Reportable 05/12/21 04:08 Macrocytosis Not Reportable 05/12/21 04:08 Spherocytes Not Reportable 05/12/21 04:08 Pappenheimer Bodies Not Reportable 05/12/21 04:08 Sickle Cells Not Reportable 05/12/21 04:08 Target Cells Not Reportable 05/12/21 04:08 Tear Drop Cells Not Reportable 05/12/21 04:08 Ovalocytes Not Reportable 05/12/21 04:08 Helmet Cells Not Reportable 05/12/21 04:08 [place] Bodies Not Reportable 05/12/21 04:08 [place] Rings Not Reportable 05/12/21 04:08 [place] Cells Not Reportable 05/12/21 04:08 Bite Cells Not Reportable 05/12/21 04:08 Crenated Cell Not Reportable 05/12/21 04:08 Elliptocytes Not Reportable 05/12/21 04:08 Acanthocytes (Spur) Not Reportable 05/12/21 04:08 Rouleaux Not Reportable 05/12/21 04:08 Hemoglobin C Crystals Not Reportable 05/12/21 04:08 Schistocytes Not Reportable 05/12/21 04:08 Malaria parasites Not Reportable 05/12/21 04:08 [place] Bodies Not Reportable 05/12/21 04:08 Hem Pathologist Commnt No 05/12/21 04:08 PT 15.9 Sec. (12.2-14.9) H 06/05/21 06:00 INR 1.15 (0.87-1.13) H 06/05/21 06:00 APTT 37.1 Sec. (24.2-36.6) H 06/05/21 06:00 D-Dimer 1282.85 ng/mlDDU (0-234) H 06/05/21 06:00 ABG pH 7.416 (7.320-7.450) 06/05/21 09:17 POC ABG pCO2 54.0 mmHg (32.0-48.0) H 06/05/21 09:17 ABG pCO2 50.3 mm Hg 06/03/21 10:00 POC ABG pO2 140.6 mmHg (83-108) H 06/05/21 09:17 ABG pO2 68.5 mm Hg (80.0-90.0) L 06/03/21 10:00 POC ABG HCO3 33.9 06/05/21 09:17 ABG HCO3 24.8 mmol/L (20.0-26.0) 06/03/21 10:00 ABG O2 Saturation 99.1 (0-100) 06/05/21 09:17 ABG O2 Content 14.6 (0.0-44) 06/03/21 10:00 POC ABG Base Excess 8.1 06/05/21 09:17 ABG Base Excess -1.7 mmol/L (-2.0-3.0) 06/03/21 10:00 ABG Hemoglobin 10.3 (12.0-17.5) L 06/05/21 09:17 ABG Oxyhemoglobin 98.0 (94-98) 06/05/21 09:17 ABG Carboxyhemoglobin 2.5 % (0.0-5.0) 06/03/21 10:00 ABG Methemoglobin 0.3 (0.0-1.5) 06/05/21 09:17 ABG Sodium 133.6 mmol/L (136.0-145.0) L 06/05/21 09:17 ABG Potassium 3.3 mmol/L (3.40-4.50) L 06/05/21 09:17 ABG Chloride 97.0 mmol/L (98-107) L 06/05/21 09:17 ABG Glucose 179 mg/dL (65-95) H 06/05/21 09:17 Oxyhemoglobin 90.1 % (95.0-99.0) L 06/03/21 10:00 Carboxyhemoglobin 0.8 (0.5-1.5) 06/05/21 09:17 FiO2 85 % 06/03/21 10:00 FiO2 % 80.0 06/05/21 09:17 Sodium 136 mmol/L (137-145) L 06/05/21 06:00 Potassium 3.6 mmol/L (3.6-5.0) 06/05/21 06:00 Chloride 94.2 mmol/L (98-107) L 06/05/21 06:00 Carbon Dioxide 32 mmol/L (22-30) H 06/05/21 06:00 Anion Gap 13 mmol/L 06/05/21 06:00 BUN 17 mg/dL (7-17) 06/05/21 06:00 Creatinine 0.3 mg/dL (0.6-1.2) L 06/05/21 06:00 Estimated GFR > 60 ml/min 06/05/21 06:00 BUN/Creatinine Ratio 57 % 06/05/21 06:00 Glucose 241 mg/dL (65-100) H 06/05/21 06:00 POC Glucose 220 mg/dL (70-105) H 06/05/21 12:20 Hemoglobin A1c 5.2 % (4-6) 05/12/21 04:08 Lactic Acid 3.30 mmol/L (0.7-2.0) H* 05/12/21 Unknown Calcium 8.3 mg/dL (8.4-10.2) L 06/05/21 06:00 Phosphorus 4.10 mg/dL (2.5-4.5) D 06/04/21 04:40 Magnesium 1.90 mg/dL (1.7-2.3) 06/04/21 04:40 Ferritin 717.1 ng/mL (10.0-200.0) H 06/05/21 06:00 Total Bilirubin 0.70 mg/dL (0.1-1.2) 06/05/21 06:00 Direct Bilirubin 1.6 mg/dL (0-0.2) H 05/23/21 10:15 Indirect Bilirubin 0.7 mg/dL 05/23/21 10:15 AST 27 units/L (5-40) 06/05/21 06:00 ALT 52 units/L (7-56) 06/05/21 06:00 Alkaline Phosphatase 219 units/L (35-129) H 06/05/21 06:00 Lactate Dehydrogenase 301 units/L (91-180) H 06/05/21 06:00 C-Reactive Protein 22.40 mg/dL (0.00-1.30) H 06/05/21 06:00 NT-Pro-B Natriuret Pep 2326 pg/mL (0-900) H 06/02/21 22:00 Total Protein 6.2 g/dL (6.3-8.2) L 06/05/21 06:00 Albumin 1.8 g/dL (3.9-5) L 06/05/21 06:00 Albumin/Globulin Ratio 0.4 % 06/05/21 06:00 Triglycerides 90 mg/dL (2-149) 05/23/21 10:15 Lipase 3 units/L (13-60) L 05/11/21 05:43 Arterial Blood Glucose 179 mg/dL (65-95) H 06/05/21 09:17 Arterial Blood Ionized Calcium 4.6 mg/dL (4.6-5.3) 06/05/21 09:17 Urine Color [place]isi (Yellow) 05/11/21 11:18 Urine Turbidity Clear (Clear) 05/11/21 11:18 Urine pH 6.0 (5.0-7.0) 05/11/21 11:18 Ur Specific [place] 1.035 (1.003-1.030) H 05/11/21 11:18 Urine Protein 100 mg/dl mg/dL (Negative) 05/11/21 11:18 Urine Glucose (UA) Neg mg/dL (Negative) 05/11/21 11:18 Urine Ketones Neg mg/dL (Negative) 05/11/21 11:18 Urine Blood Neg (Negative) 05/11/21 11:18 Urine Nitrite Neg (Negative) 05/11/21 11:18 Urine Bilirubin Neg (Negative) 05/11/21 11:18 Urine Urobilinogen < 2.0 mg/dL (<2.0) 05/11/21 11:18 Ur Leukocyte Esterase Neg (Negative) 05/11/21 11:18 Urine WBC (Auto) 2.0 /HPF (0.0-6.0) 05/11/21 11:18 Urine RBC (Auto) 1.0 /HPF (0.0-6.0) 05/11/21 11:18 Urine Mucus Few /HPF 05/11/21 11:18 Vancomycin Trough 25.3 ug/mL (5.0-20.0) H 05/14/21 15:20 Coronavirus (PCR) Positive (Negative) A 05/29/21 08:20 Hepatitis A IgM Ab Non-reactive (NonReactive) 05/12/21 12:30 Hep Bs Antigen Nonreactive (Negative) 05/12/21 12:30 Hep B Core IgM Ab Non-reactive (NonReactive) 05/12/21 12:30 Hepatitis C Antibody Non-reactive (NonReactive) 05/12/21 12:30 Microbiology: Microbiology 06/03/21 00:41 Tracheal Aspirate Sputum Culture - Preliminary Gram Negative Donald Almaraz/IV: Voiding Method Indwelling Catheter Active Medications - Current Medications Current Medications: Generic Name Dose Route Start Last Admin Trade Name Freq PRN Reason Stop Dose Admin Acetaminophen 650 mg 05/11/21 21:40 05/14/21 20:06 Acetaminophen 325 Mg Tab PO 650 mg Q4H PRN Administration Pain MILD(1-3)/Fever >100.5/WOODS Lipase/Protease/Amylase 1 each 05/22/21 16:30 Lipase 10,500/Protease 25,000/Amylase 43,750 (Units) Dr Cap FEEDTUBE PRN PRN For Clogged Feeding Tube Arformoterol Tartrate 15 mcg 05/12/21 08:00 06/05/21 09:13 Arformoterol 15 Mcg/2 Ml Nebu IH 15 mcg Q12HRT ABRAHAN Administration Ascorbic Acid 500 mg 06/02/21 22:00 06/05/21 09:41 Ascorbic Acid 500 Mg Tab PO 500 mg BID ABRAHAN Administration Budesonide 0.5 mg 05/12/21 08:00 06/05/21 09:12 Budesonide 0.5 Mg/2 Ml Nebu IH 0.5 mg Q12HRT ABRAHAN Administration Dextrose 50 ml 05/12/21 11:57 06/02/21 18:34 Dextrose 50% In Water (25gm) 50 Ml Syringe IV 50 ml Q30MIN PRN Administration Hypoglycemia Protocol Dicyclomine HCl 10 mg 05/23/21 14:00 06/05/21 13:25 Dicyclomine 10 Mg Cap PO 10 mg QID ABRAHAN Administration Fentanyl 50 mcg 06/02/21 05:20 Fentanyl 100 Mcg/2 Ml Inj IV Q10MIN PRN ANALGESIA Fondaparinux 2.5 mg 06/05/21 22:00 Fondaparinux 2.5 Mg/0.5 Ml Inj SUB-Q QDAY@2200 ABRAHAN Furosemide 20 mg 06/02/21 20:00 06/05/21 09:40 Furosemide 20 Mg/2 Ml Inj IV 06/05/21 19:59 20 mg QDAY ABRAHAN Administration Haloperidol Lactate 5 mg 05/19/21 15:00 06/01/21 21:04 Haloperidol Lactate 5 Mg/1 Ml Inj IV 5 mg Q8H PRN Administration Agitation Hydrocortisone Sodium Succinate 100 mg 06/04/21 14:00 06/05/21 13:25 Hydrocortisone Sod Succ 100 Mg/2 Ml Vial IV 100 mg Q8HR ABRAHAN Administration Hydrophilic Ointment 1 applic 06/02/21 17:44 Lip Therapy Vaseline TP Q2HR PRN Dry Lips NORepinephrine/NS 8 MG-250 ML 8 mg in 250 mls @ 3.75 mls/hr 06/02/21 06:00 06/05/21 01:49 Norepinephrine/Ns 8 Mg-250 Ml (Double Conc) IV 0 mcg/min TITRATE ABRAHAN 0 mls/hr Titration Protocol 2 MCG/MIN Propofol 1,000 mg in 100 mls @ 1.932 mls/hr 06/02/21 06:00 06/05/21 13:40 Diprivan 10 Mg/Ml IV 10 mcg/kg/min TITR ABRAHAN 3.864 mls/hr Titration Protocol 5 MCG/KG/MIN Fentanyl Citrate 2,000 mcg in 100 mls @ 3.22 mls/hr 06/02/21 06:00 06/05/21 13:40 Fentanyl Drip Premix IV 2 mcg/kg/hr TITR ABRAHAN 6.44 mls/hr Titration Protocol 1 MCG/KG/HR REMDESIVIR 100 mg/ Sodium 250 mls @ 500 mls/hr 06/03/21 21:00 06/04/21 21:48 Chloride IV 06/06/21 21:29 500 mls/hr Q24HR@2100 ABRAHAN Administration Insulin Human Lispro 0 unit 05/17/21 12:00 06/05/21 13:25 Insulin Lispro 100 Unit/Ml SUB-Q 4 unit Q6HR ABRAHAN Administration Protocol Lansoprazole 30 mg 05/28/21 10:00 06/05/21 09:41 Lansoprazole 30 Mg Solutab FEEDTUBE 30 mg QDAY ABRAHAN Administration Metoclopramide HCl 10 mg 05/11/21 21:40 Metoclopramide 10 Mg/2 Ml Inj IV Q6H PRN Nausea And Vomiting Multi-Ingred Cream/Lotion/Oil/Oint 1 applic 06/02/21 17:44 Mineral Oil/Petrolatum, White Ophth Oint 3.5 Gm OU Q4HR PRN Dry Eye(s) Ondansetron HCl 4 mg 05/11/21 21:40 05/15/21 09:57 Ondansetron 4 Mg/2 Ml Inj IV 4 mg Q8H PRN Administration Nausea And Vomiting Senna/Docusate Sodium 1 tab 06/02/21 22:00 06/05/21 09:41 Sennosides/Docusate Sodium 8.6/50 Mg Tab FEEDTUBE 1 tab BID ABRAHAN Administration Simple Syrup 15 ml 05/22/21 16:30 Simple Syrup 15 Ml FEEDTUBE PRN PRN Hypoglycemia Simple Syrup 30 ml 05/22/21 16:30 Simple Syrup 15 Ml FEEDTUBE PRN PRN Hypoglycemia Sodium Bicarbonate 325 mg 05/22/21 16:30 Sodium Bicarbonate 325 Mg Tab FEEDTUBE PRN PRN For Clogged Feeding Tube Sodium Chloride 10 ml 05/11/21 22:00 06/05/21 09:41 Sodium Chloride 0.9% 10 Ml Flush Syringe IV 10 ml BID ABRAHAN Administration Sodium Chloride 10 ml 05/11/21 21:40 05/23/21 21:00 Sodium Chloride 0.9% 10 Ml Flush Syringe IV 10 ml PRN PRN Administration LINE FLUSH Sodium Chloride 50 ml 06/02/21 18:30 06/04/21 21:48 Sodium Chloride 0.9% 50 Ml Ivpb IV 06/06/21 21:01 50 ml Q24HR@2100 ABRAHAN Administration Zinc Sulfate 220 mg 06/02/21 22:00 06/05/21 09:41 Zinc Sulfate 220 Mg Cap PO 220 mg BID ABRAHAN Administration Nutrition/Malnutrition Assess - Dietary Evaluation Nutrition/Malnutrition Findings: Nutrition Notes Start: 05/13/21 09:47 Freq: Status: Active Protocol: Document 06/01/21 12:45 MARITZA (Rec: 06/01/21 12:49 [facility] [id number]) Nutrition Notes Initial or Follow up Reassessment Current Diagnosis COPD,Respiratory Failure Other Pertinent Diagnosis COVID-19 (+), Pancreatic CA, pulmonary fibrosis Current Diet TF - Glucerna 1.2 at 50ml/hr Labs/Tests Reviewed Pertinent Medications Reviewed Height 5 ft 2 in Weight 64.4 kg [place] Body Weight (kg) 50.00 BMI 25.9 Weight Status Appropriate Subjective/Other Information Pt tolerating Glucerna 1.2 at goal rate. She remains on BiPap support. Referral made to [facility] hospice. Percent of energy/protein needs met: 100% energy and pro Burn Absent Trauma Absent #2 Nutrition Diagnosis Malnutrition Diagnosis Progress(for reassessment Continues documentation) Is patient on ventilator? No Is Patient Ambulatory and/or Out of Bed No REE-(Sargent-St. Jeor-confined to bed) 1447.020 Calculation Used for Recommendations Sargent-St Jeor Additional Notes Pro needs 1-1.2g/k-77g/ day Fluid needs 1ml/kcal Nutrition Intervention Nutrition Support: Continue Glucerna 1.2 at 50ml/ hr with 80ml water flush q4h. Kcal 1,440 Protein (gm) 72 Carbohydrates (gm) 137 Fat (gm) 72 Fluid (mL) 966 Fiber (gm) 19 Goal #1 TF tolerance Goal #2 TF to meet at least 75% energy and pro needs Follow-Up By: 06/08/21 Additional Comments F/U: stable TF, resp status, wt
[2021-06-05] MEDS: SODIUM CHLORIDE 0.9% 50 ML IVPB IV SCH (22:23)
[2021-06-05] MEDS: REMDESIVIR 100 MG in SODIUM CHLORIDE 0.9% 250ML 250 ML IV SCH (22:23)
[2021-06-05] MEDS: FONDAPARINUX 2.5 MG/0.5 ML INJ SUB-Q SCH (22:25)
[2021-06-06] MEDS: INSULIN LISPRO 100 UNIT/ML SUB-Q SCH ×5 (00:16→23:59)
[2021-06-06] MEDS: fentaNYL DRIP Premix 2,000 MCG/100 ML BAG IV SCH ×2 (02:25→11:58)
[2021-06-06] MEDS: FREE WATER PO SCH ×6 (03:16→22:30)
[2021-06-06] MEDS: HYDROCORTISONE SOD SUCC 100 MG/2 ML VIAL IV SCH ×3 (05:48→21:25)
[2021-06-06 06:13] LABS: Hematocrit 31.4 % (30.3-42.9); Hemoglobin 10.1 gm/dl (10.1-14.3); Mean Corpuscular HGB Conc 32 % (30-34); Mean Corpuscular Volume 98 fl (79-97); Platelet Count 110 K/mm3 (140-440); Red Blood Count 3.21 M/mm3 (3.65-5.03)
[2021-06-06 06:15] LABS: Red Cell Distribution Width 23.9 % (13.2-15.2)
[2021-06-06 06:32] LABS: Alanine Aminotransferase 42 units/L (7-56); Blood Urea Nitrogen 15 mg/dL (7-17); Hemolysis Index 6
[2021-06-06 06:33] LABS: BUN/Creatinine Ratio 50
[2021-06-06] MEDS: BUDESONIDE 0.5 MG/2 ML NEBU IH SCH (08:56)
[2021-06-06] MEDS: ARFORMOTEROL 15 MCG/2 ML NEBU IH SCH (08:57)
[2021-06-06] MEDS: SENNOSIDES/DOCUSATE SODIUM 8.6/50 MG TAB FEEDTUBE SCH ×2 (10:30→21:24)
[2021-06-06] MEDS: POTASSIUM CHLORIDE 20 MEQ PACKET FEEDTUBE SCH ×2 (10:30→14:35)
[2021-06-06] MEDS: LANSOPRAZOLE 30 MG SOLUTAB FEEDTUBE SCH (10:30)
[2021-06-06] MEDS: DICYCLOMINE 10 MG CAP PO SCH ×4 (10:30→21:25)
[2021-06-06] MEDS: ASCORBIC ACID 500 MG TAB PO SCH ×2 (10:30→21:25)
[2021-06-06] MEDS: ZINC SULFATE 220 MG CAP PO SCH ×2 (10:30→21:25)
--- NOTE | 2021-06-06 12:28 | XRay Report ---
CHEST 1 VIEW 06/06/2021 11:19 AM INDICATION / CLINICAL INFORMATION: subq air. COMPARISON: 06/05/2021 FINDINGS: SUPPORT DEVICES: Stable, satisfactory device positioning. HEART / MEDIASTINUM: No significant abnormality. LUNGS / PLEURA: Diffuse opacities are seen in bilateral lungs. Diffuse emphysematous changes seen thr oughout the neck in bilateral chest merchant . ADDITIONAL FINDINGS: No significant additional findings. IMPRESSION: Diffuse emphysematous change which is increased since prior examination. Diffuse opacities in bilater al lungs. Signer Name: Kwaku Snow MD Signed: 06/06/2021 12:23 PM Workstation Name: [id number]
--- NOTE | 2021-06-06 12:40 | Progress Note ---
Assessment and Plan Septic shock possible hepatobiliary source Lactic acidosis h/o pulmonary fibrosis, Acute on chronic respiratory failure on home O2 of 2 L nasal cannula Transaminitis, biliary dilation, r/o cholangitis Hyperchloremia, metabolic acidosis, hypokalemia Hypoglycemia h/o pancreatic head cancer- chemoradiation therapy h/o Hypertension Thrombocytopenia - reduced set TV to 350 ml's, peep to 8 and incresaed rate to 25/min (P-plat dropped from 40's to 30) - repeat ABG at 9 pm - follow upper extremity dopplers - follow HIT assay - continue Aritra for DVT prophylaxis - continue care as below otherwise; - prn diuresis (follow repeat BMP) - continue daily SAT and SBT assessment as tolerated - sedation prn for target RASS 0 to -1 - VAP bundle addressed - continue lung protective strategies - continue bronchodilators with pulmonary hygiene per RT - wean per pulmonary driven protocols otherwise - prn vasopressors for target MAP > 65 mmHg - MRCP pending as she remains tenuous from a respiratory standpoint - continue anti-infective's; de-escalate per ID recommendations - accuchecks with glycemic control per SSI (While critically ill target blood glucose of 140-180 mg/dL; avoid hypoglycemia) - wean supplemental oxygen for target O2 sat's > 90% acutely - aspiration precautions - avoid nephrotoxins, renally dose all medications - prn analgesia per pain score - Maintenance of sleep-wake cycle, avoid delirium - G.I. & VTE prophylaxis - PT/OT/ROM exercises - mobility protocols for pressure ulcer prophylaxis - Monitor hemodynamics closely - continue other care per attending / other consultants - discharge planning ongoing concurrently COVID SPECIFIC INTERVENTIONS - Remdesivir as per ID/Pulmonary developed protocols (ordered) - continue systemic steroids for severe COVID-19 infection empirically (on Solucortef) - follow repeat COVID tests results - zinc and vitamin C supplementation (ordered) - Monitor inflammatory markers per facility protocol - ferritin, Ddimer, CRP - therapeutic anticoagulation per system Protocol based on d-dimer and clinical considerations (DVT prophylaxis) - Contact and airborne isolation .... Re-evaluate in am & prn CONDITION: CRITICAL PROGNOSIS: GUARDED CODE STATUS: FULL CODE The high probability of a clinically significant, sudden or life-threatening deterioration of the [respiratory, cardiovascular, GI & neurologic] system(s) required my full and direct attention, intervention and personal management. The aggregate critical care time was [32] minutes without overlap. Time includes spent on; [x] Data Review and interpretation [x] Patient assessment and monitoring of vital signs [x] Documentation [x] Medication orders and management Subjective Date of service: 06/06/21 Principal diagnosis: Septic shock; Pulm fibrosis; Hypoxemic resp failure; COVID- 19 infxn Interval history: Patient is seen today for: Septic shock; pulmonary fibrosis; Acute on chronic hypoxemic respiratory failure; Transaminitis; h/o pancreatic head cancer; HTN Seen and examined at bedside; 24hour events reviewed; nursing and respiratory care staff consulted; no adverse overnight events reported to me; resting in bed; remains on MVS; developed SQ emphysema overnight; also with increased a gitation / ventilator dys-synchrony and sedation increased; no emesis or overt aspiration Objective Vital Signs - 12hr 06/06/21 06/06/21 06/06/21 00:45 01:00 01:15 Temperature Pulse Rate 95 H 85 87 Pulse Rate [ Bilateral Throughout] Pulse Rate [ From Monitor] Respiratory 23 23 18 Rate Respiratory Rate [Bilateral Throughout] Blood Pressure 124/79 119/76 112/73 O2 Sat by Pulse 95 93 Oximetry 06/06/21 06/06/21 06/06/21 01:30 01:45 02:00 Temperature Pulse Rate 111 H 114 H 86 Pulse Rate [ Bilateral Throughout] Pulse Rate [ From Monitor] Respiratory 20 17 19 Rate Respiratory Rate [Bilateral Throughout] Blood Pressure 113/76 111/75 108/73 O2 Sat by Pulse 89 93 Oximetry 06/06/21 06/06/21 06/06/21 02:15 02:30 02:45 Temperature Pulse Rate 79 72 90 Pulse Rate [ Bilateral Throughout] Pulse Rate [ From Monitor] Respiratory 17 19 19 Rate Respiratory Rate [Bilateral Throughout] Blood Pressure 101/63 99/60 94/57 O2 Sat by Pulse 96 Oximetry 06/06/21 06/06/21 06/06/21 03:00 03:15 03:30 Temperature Pulse Rate 92 H 88 92 H Pulse Rate [ Bilateral Throughout] Pulse Rate [ From Monitor] Respiratory 20 21 19 Rate Respiratory Rate [Bilateral Throughout] Blood Pressure 91/58 94/52 86/55 O2 Sat by Pulse 95 97 Oximetry 06/06/21 06/06/21 06/06/21 03:45 03:57 03:58 Temperature 97.8 F Pulse Rate 89 90 Pulse Rate [ Bilateral Throughout] Pulse Rate [ From Monitor] Respiratory 19 Rate Respiratory Rate [Bilateral Throughout] Blood Pressure 93/56 119/72 O2 Sat by Pulse 95 94 Oximetry 06/06/21 06/06/21 06/06/21 04:00 04:15 04:30 Temperature Pulse Rate 90 86 67 Pulse Rate [ Bilateral Throughout] Pulse Rate [ 107 H From Monitor] Respiratory 20 21 22 Rate Respiratory Rate [Bilateral Throughout] Blood Pressure 85/60 96/60 90/49 O2 Sat by Pulse 96 97 89 Oximetry 06/06/21 06/06/21 06/06/21 04:45 05:00 05:15 Temperature Pulse Rate 82 89 88 Pulse Rate [ Bilateral Throughout] Pulse Rate [ From Monitor] Respiratory 19 19 20 Rate Respiratory Rate [Bilateral Throughout] Blood Pressure 105/72 101/71 100/68 O2 Sat by Pulse 90 94 91 Oximetry 06/06/21 06/06/21 06/06/21 05:30 05:45 06:00 Temperature Pulse Rate 75 94 H 76 Pulse Rate [ Bilateral Throughout] Pulse Rate [ From Monitor] Respiratory 25 H 18 20 Rate Respiratory Rate [Bilateral Throughout] Blood Pressure 103/58 103/66 100/58 O2 Sat by Pulse 96 Oximetry 06/06/21 06/06/21 06/06/21 06:15 06:30 06:45 Temperature Pulse Rate 92 H 84 89 Pulse Rate [ Bilateral Throughout] Pulse Rate [ From Monitor] Respiratory 20 20 20 Rate Respiratory Rate [Bilateral Throughout] Blood Pressure 104/62 102/65 97/67 O2 Sat by Pulse 96 96 Oximetry 06/06/21 06/06/21 06/06/21 07:00 07:15 07:30 Temperature Pulse Rate 85 84 85 Pulse Rate [ Bilateral Throughout] Pulse Rate [ From Monitor] Respiratory 20 20 20 Rate Respiratory Rate [Bilateral Throughout] Blood Pressure 106/62 96/65 107/65 O2 Sat by Pulse 95 96 Oximetry 06/06/21 06/06/21 06/06/21 07:45 07:47 08:00 Temperature 97.8 F Pulse Rate 83 85 Pulse Rate [ Bilateral Throughout] Pulse Rate [ 79 From Monitor] Respiratory 22 21 Rate Respiratory Rate [Bilateral Throughout] Blood Pressure 105/65 104/60 O2 Sat by Pulse 96 Oximetry 06/06/21 06/06/21 06/06/21 08:15 08:30 08:45 Temperature Pulse Rate 84 77 90 Pulse Rate [ Bilateral Throughout] Pulse Rate [ From Monitor] Respiratory 20 21 19 Rate Respiratory Rate [Bilateral Throughout] Blood Pressure 103/64 103/56 106/68 O2 Sat by Pulse 95 Oximetry 06/06/21 06/06/21 06/06/21 08:48 08:57 09:00 Temperature Pulse Rate 94 H Pulse Rate [ 84 Bilateral Throughout] Pulse Rate [ From Monitor] Respiratory 10 L Rate Respiratory 20 Rate [Bilateral Throughout] Blood Pressure 87/54 O2 Sat by Pulse 96 Oximetry 06/06/21 06/06/21 06/06/21 09:15 09:30 09:45 Temperature Pulse Rate 58 L 80 75 Pulse Rate [ Bilateral Throughout] Pulse Rate [ From Monitor] Respiratory 21 21 17 Rate Respiratory Rate [Bilateral Throughout] Blood Pressure 91/55 101/61 99/63 O2 Sat by Pulse 95 95 Oximetry 06/06/21 06/06/21 06/06/21 10:00 10:15 10:30 Temperature Pulse Rate 87 78 75 Pulse Rate [ Bilateral Throughout] Pulse Rate [ From Monitor] Respiratory 21 20 19 Rate Respiratory Rate [Bilateral Throughout] Blood Pressure 100/65 95/65 101/65 O2 Sat by Pulse 93 Oximetry 06/06/21 06/06/21 06/06/21 10:45 11:00 11:15 Temperature Pulse Rate 78 62 71 Pulse Rate [ Bilateral Throughout] Pulse Rate [ From Monitor] Respiratory 20 21 22 Rate Respiratory Rate [Bilateral Throughout] Blood Pressure 99/63 102/63 100/66 O2 Sat by Pulse 94 Oximetry 06/06/21 06/06/21 06/06/21 11:30 11:45 12:00 Temperature Pulse Rate 82 64 69 Pulse Rate [ Bilateral Throughout] Pulse Rate [ 79 From Monitor] Respiratory 21 20 17 Rate Respiratory Rate [Bilateral Throughout] Blood Pressure 95/60 101/65 101/69 O2 Sat by Pulse 93 97 Oximetry 06/06/21 12:02 Temperature 96.2 F L Pulse Rate Pulse Rate [ Bilateral Throughout] Pulse Rate [ From Monitor] Respiratory Rate Respiratory Rate [Bilateral Throughout] Blood Pressure O2 Sat by Pulse Oximetry Constitutional: no acute distress, other (mildly increased respiratory effort at rest on MVS) Eyes: non-icteric ENT: oropharynx moist, other (ETT 24 cm JOSH) Neck: supple, no lymphadenopathy, no JVD Effort: mildly labored Ascultation: Bilateral: diminished breath sounds, rales (inspiratory, bases) Percussion: Bilateral: not dull Cardiovascular: regular rate and rhythm, other (S1,S2) Gastrointestinal: normoactive bowel sounds, soft, non-tender, non-distended (protuberant) Integumentary: other (SQ emphysema to upper chest) Extremities: no cyanosis, pulses normal, edema (1+ edema), other (right femoral CVL) Neurologic: normal mental status, non-focal exam (grossly), pupils equal and round, other (sedated) Psychiatric: anxious, depressed CBC and BMP: 06/06/21 05:26 06/06/21 05:26 ABG, PT/INR, D-dimer: ABG ABG pH 7.392 (7.320-7.450) 06/06/21 09:00 POC ABG pCO2 59.5 mmHg (32.0-48.0) H 06/06/21 09:00 ABG pCO2 50.3 mm Hg 06/03/21 10:00 POC ABG pO2 72.0 mmHg (83-108) L 06/06/21 09:00 ABG pO2 68.5 mm Hg (80.0-90.0) L 06/03/21 10:00 POC ABG HCO3 35.4 06/06/21 09:00 ABG O2 Saturation 93.2 (0-100) 06/06/21 09:00 PT/INR, D-dimer PT 15.9 Sec. (12.2-14.9) H 06/05/21 06:00 INR 1.15 (0.87-1.13) H 06/05/21 06:00 D-Dimer 1282.85 ng/mlDDU (0-234) H 06/05/21 06:00 Abnormal lab findings: Abnormal Labs 05/11/21 05/11/21 05/11/21 05:43 05:43 05:43 WBC RBC Hgb Hct MCV 98 H MCH RDW 17.7 H Plt Count Lymph % (Auto) 10.8 L Eos % (Auto) Lymph # (Auto) 0.6 L Eos # (Auto) Seg Neutrophils % 84.1 H Seg Neuts % (Manual) Lymphocytes % (Manual) Seg Neutrophils # Man Lymphocytes # (Manual) PT 16.0 H INR 1.16 H APTT D-Dimer ABG pH POC ABG pCO2 POC ABG pO2 ABG pO2 ABG HCO3 ABG O2 Saturation ABG Base Excess ABG Hemoglobin ABG Oxyhemoglobin ABG Sodium ABG Potassium ABG Chloride ABG Glucose Oxyhemoglobin Carboxyhemoglobin Sodium Potassium Chloride Carbon Dioxide 21 L BUN 4 L Creatinine 0.4 L Glucose POC Glucose Lactic Acid Calcium 8.3 L Phosphorus Magnesium Ferritin Total Bilirubin 2.10 H Direct Bilirubin 1.4 H AST 335 H ALT 57 H Alkaline Phosphatase 339 H Lactate Dehydrogenase C-Reactive Protein NT-Pro-B Natriuret Pep Total Protein Albumin 2.4 L Lipase 3 L Arterial Blood Glucose Arterial Blood Ionized Calcium Ur Specific [place] Vancomycin Trough Coronavirus (PCR) 05/11/21 05/11/21 05/12/21 11:18 12:28 04:08 WBC RBC Hgb Hct MCV MCH RDW Plt Count Lymph % (Auto) Eos % (Auto) Lymph # (Auto) Eos # (Auto) Seg Neutrophils % Seg Neuts % (Manual) Lymphocytes % (Manual) Seg Neutrophils # Man Lymphocytes # (Manual) PT INR APTT D-Dimer ABG pH POC ABG pCO2 POC ABG pO2 ABG pO2 ABG HCO3 ABG O2 Saturation ABG Base Excess ABG Hemoglobin ABG Oxyhemoglobin ABG Sodium ABG Potassium ABG Chloride ABG Glucose Oxyhemoglobin Carboxyhemoglobin Sodium Potassium Chloride Carbon Dioxide BUN Creatinine Glucose POC Glucose Lactic Acid 4.20 H* 4.50 H* Calcium Phosphorus Magnesium Ferritin Total Bilirubin Direct Bilirubin AST ALT Alkaline Phosphatase Lactate Dehydrogenase C-Reactive Protein NT-Pro-B Natriuret Pep Total Protein Albumin Lipase Arterial Blood Glucose Arterial Blood Ionized Calcium Ur Specific [place] 1.035 H Vancomycin Trough Coronavirus (PCR) 05/12/21 05/12/21 05/12/21 04:08 04:08 09:47 WBC 22.8 H RBC 3.39 L Hgb Hct MCV 98 H MCH RDW 17.7 H Plt Count Lymph % (Auto) Eos % (Auto) Lymph # (Auto) Eos # (Auto) Seg Neutrophils % Seg Neuts % (Manual) 85.5 H Lymphocytes % (Manual) 2.0 L Seg Neutrophils # Man 19.5 H Lymphocytes # (Manual) 0.5 L PT INR APTT D-Dimer ABG pH POC ABG pCO2 POC ABG pO2 ABG pO2 ABG HCO3 ABG O2 Saturation ABG Base Excess ABG Hemoglobin ABG Oxyhemoglobin ABG Sodium ABG Potassium ABG Chloride ABG Glucose Oxyhemoglobin Carboxyhemoglobin Sodium Potassium 3.3 L Chloride 108.9 H Carbon Dioxide 17 L BUN 4 L Creatinine 0.5 L Glucose 106 H POC Glucose Lactic Acid 2.60 H* Calcium 6.4 L D Phosphorus Magnesium Ferritin Total Bilirubin 2.10 H Direct Bilirubin AST 156 H ALT 61 H Alkaline Phosphatase 317 H Lactate Dehydrogenase C-Reactive Protein NT-Pro-B Natriuret Pep Total Protein 5.4 L D Albumin 1.8 L Lipase Arterial Blood Glucose Arterial Blood Ionized Calcium Ur Specific [place] Vancomycin Trough Coronavirus (PCR) 05/12/21 05/12/21 05/12/21 11:47 12:30 12:36 WBC RBC Hgb Hct MCV MCH RDW Plt Count Lymph % (Auto) Eos % (Auto) Lymph # (Auto) Eos # (Auto) Seg Neutrophils % Seg Neuts % (Manual) Lymphocytes % (Manual) Seg Neutrophils # Man Lymphocytes # (Manual) PT INR APTT D-Dimer ABG pH POC ABG pCO2 POC ABG pO2 ABG pO2 ABG HCO3 ABG O2 Saturation ABG Base Excess ABG Hemoglobin ABG Oxyhemoglobin ABG Sodium ABG Potassium ABG Chloride ABG Glucose Oxyhemoglobin Carboxyhemoglobin Sodium Potassium Chloride Carbon Dioxide BUN Creatinine Glucose POC Glucose 59 L 120 H Lactic Acid 2.50 H* Calcium Phosphorus Magnesium Ferritin Total Bilirubin Direct Bilirubin AST ALT Alkaline Phosphatase Lactate Dehydrogenase C-Reactive Protein NT-Pro-B Natriuret Pep Total Protein Albumin Lipase Arterial Blood Glucose Arterial Blood Ionized Calcium Ur Specific [place] Vancomycin Trough Coronavirus (PCR) 05/12/21 05/12/21 05/13/21 23:45 Unknown 04:00 WBC 19.8 H RBC 3.52 L Hgb Hct MCV 98 H MCH RDW 18.5 H Plt Count Lymph % (Auto) Eos % (Auto) Lymph # (Auto) Eos # (Auto) Seg Neutrophils % Seg Neuts % (Manual) Lymphocytes % (Manual) Seg Neutrophils # Man Lymphocytes # (Manual) PT INR APTT D-Dimer ABG pH POC ABG pCO2 POC ABG pO2 ABG pO2 ABG HCO3 ABG O2 Saturation ABG Base Excess ABG Hemoglobin ABG Oxyhemoglobin ABG Sodium ABG Potassium ABG Chloride ABG Glucose Oxyhemoglobin Carboxyhemoglobin Sodium Potassium Chloride Carbon Dioxide BUN Creatinine Glucose POC Glucose 119 H Lactic Acid 3.30 H* Calcium Phosphorus Magnesium Ferritin Total Bilirubin Direct Bilirubin AST ALT Alkaline Phosphatase Lactate Dehydrogenase C-Reactive Protein NT-Pro-B Natriuret Pep Total Protein Albumin Lipase Arterial Blood Glucose Arterial Blood Ionized Calcium Ur Specific [place] Vancomycin Trough Coronavirus (PCR) 05/13/21 05/13/21 05/13/21 04:00 05:42 12:19 WBC RBC Hgb Hct MCV MCH RDW Plt Count Lymph % (Auto) Eos % (Auto) Lymph # (Auto) Eos # (Auto) Seg Neutrophils % Seg Neuts % (Manual) Lymphocytes % (Manual) Seg Neutrophils # Man Lymphocytes # (Manual) PT INR APTT D-Dimer ABG pH POC ABG pCO2 POC ABG pO2 ABG pO2 ABG HCO3 ABG O2 Saturation ABG Base Excess ABG Hemoglobin ABG Oxyhemoglobin ABG Sodium ABG Potassium ABG Chloride ABG Glucose Oxyhemoglobin Carboxyhemoglobin Sodium Potassium 3.4 L Chloride 107.1 H Carbon Dioxide 19 L BUN 4 L Creatinine 0.4 L Glucose 157 H POC Glucose 143 H 110 H Lactic Acid Calcium 7.4 L D Phosphorus 1.60 L Magnesium 1.50 L Ferritin Total Bilirubin 1.40 H Direct Bilirubin AST 95 H ALT Alkaline Phosphatase 328 H Lactate Dehydrogenase C-Reactive Protein NT-Pro-B Natriuret Pep Total Protein 5.5 L Albumin 1.6 L Lipase Arterial Blood Glucose Arterial Blood Ionized Calcium Ur Specific [place] Vancomycin Trough Coronavirus (PCR) 05/14/21 05/14/21 05/14/21 06:15 06:15 10:25 WBC 11.7 H RBC 3.41 L Hgb Hct MCV 98 H MCH RDW 18.6 H Plt Count Lymph % (Auto) Eos % (Auto) Lymph # (Auto) Eos # (Auto) Seg Neutrophils % Seg Neuts % (Manual) Lymphocytes % (Manual) Seg Neutrophils # Man Lymphocytes # (Manual) PT INR APTT D-Dimer ABG pH POC ABG pCO2 POC ABG pO2 ABG pO2 76.0 L ABG HCO3 27.2 H ABG O2 Saturation ABG Base Excess ABG Hemoglobin 11.5 L ABG Oxyhemoglobin ABG Sodium ABG Potassium ABG Chloride ABG Glucose Oxyhemoglobin 94.4 L Carboxyhemoglobin Sodium Potassium 3.2 L Chloride Carbon Dioxide BUN 6 L Creatinine 0.5 L Glucose 103 H POC Glucose Lactic Acid Calcium 7.3 L Phosphorus 1.70 L Magnesium Ferritin Total Bilirubin Direct Bilirubin AST 66 H ALT Alkaline Phosphatase 295 H Lactate Dehydrogenase C-Reactive Protein NT-Pro-B Natriuret Pep Total Protein 5.3 L Albumin 1.8 L Lipase Arterial Blood Glucose Arterial Blood Ionized Calcium Ur Specific [place] Vancomycin Trough Coronavirus (PCR) 05/14/21 05/14/21 05/14/21 15:20 15:20 17:26 WBC RBC Hgb Hct MCV MCH RDW Plt Count Lymph % (Auto) Eos % (Auto) Lymph # (Auto) Eos # (Auto) Seg Neutrophils % Seg Neuts % (Manual) Lymphocytes % (Manual) Seg Neutrophils # Man Lymphocytes # (Manual) PT INR APTT D-Dimer ABG pH POC ABG pCO2 POC ABG pO2 ABG pO2 ABG HCO3 ABG O2 Saturation ABG Base Excess ABG Hemoglobin ABG Oxyhemoglobin ABG Sodium ABG Potassium ABG Chloride ABG Glucose Oxyhemoglobin Carboxyhemoglobin Sodium 146 H D Potassium Chloride 108.4 H Carbon Dioxide BUN 5 L Creatinine 0.5 L Glucose POC Glucose 63 L Lactic Acid Calcium 7.6 L Phosphorus Magnesium Ferritin Total Bilirubin Direct Bilirubin AST ALT Alkaline Phosphatase Lactate Dehydrogenase C-Reactive Protein NT-Pro-B Natriuret Pep Total Protein Albumin Lipase Arterial Blood Glucose Arterial Blood Ionized Calcium Ur Specific [place] Vancomycin Trough 25.3 H Coronavirus (PCR) 05/14/21 05/15/21 05/15/21 21:27 00:03 00:29 WBC RBC Hgb Hct MCV MCH RDW Plt Count Lymph % (Auto) Eos % (Auto) Lymph # (Auto) Eos # (Auto) Seg Neutrophils % Seg Neuts % (Manual) Lymphocytes % (Manual) Seg Neutrophils # Man Lymphocytes # (Manual) PT INR APTT D-Dimer ABG pH POC ABG pCO2 POC ABG pO2 ABG pO2 ABG HCO3 ABG O2 Saturation ABG Base Excess ABG Hemoglobin ABG Oxyhemoglobin ABG Sodium ABG Potassium ABG Chloride ABG Glucose Oxyhemoglobin Carboxyhemoglobin Sodium Potassium Chloride Carbon Dioxide BUN Creatinine Glucose POC Glucose 52 L 54 L 129 H Lactic Acid Calcium Phosphorus Magnesium Ferritin Total Bilirubin Direct Bilirubin AST ALT Alkaline Phosphatase Lactate Dehydrogenase C-Reactive Protein NT-Pro-B Natriuret Pep Total Protein Albumin Lipase Arterial Blood Glucose Arterial Blood Ionized Calcium Ur Specific [place] Vancomycin Trough Coronavirus (PCR) 05/15/21 05/15/21 05/15/21 04:45 04:45 11:58 WBC RBC 3.24 L Hgb Hct MCV 98 H MCH RDW 18.5 H Plt Count 122 L Lymph % (Auto) 7.4 L Eos % (Auto) Lymph # (Auto) 0.6 L Eos # (Auto) Seg Neutrophils % 81.2 H Seg Neuts % (Manual) Lymphocytes % (Manual) Seg Neutrophils # Man Lymphocytes # (Manual) PT INR APTT D-Dimer ABG pH POC ABG pCO2 POC ABG pO2 ABG pO2 ABG HCO3 ABG O2 Saturation ABG Base Excess ABG Hemoglobin ABG Oxyhemoglobin ABG Sodium ABG Potassium ABG Chloride ABG Glucose Oxyhemoglobin Carboxyhemoglobin Sodium 146 H Potassium 3.1 L Chloride 108.8 H Carbon Dioxide BUN 6 L Creatinine Glucose 121 H POC Glucose 68 L Lactic Acid Calcium 7.5 L Phosphorus 2.30 L D Magnesium Ferritin Total Bilirubin 1.90 H Direct Bilirubin AST 55 H ALT Alkaline Phosphatase 231 H Lactate Dehydrogenase C-Reactive Protein NT-Pro-B Natriuret Pep Total Protein 5.4 L Albumin 1.5 L Lipase Arterial Blood Glucose Arterial Blood Ionized Calcium Ur Specific [place] Vancomycin Trough Coronavirus (PCR) 05/15/21 05/16/21 05/16/21 13:50 00:06 00:43 WBC RBC Hgb Hct MCV MCH RDW Plt Count Lymph % (Auto) Eos % (Auto) Lymph # (Auto) Eos # (Auto) Seg Neutrophils % Seg Neuts % (Manual) Lymphocytes % (Manual) Seg Neutrophils # Man Lymphocytes # (Manual) PT INR APTT D-Dimer ABG pH POC ABG pCO2 POC ABG pO2 ABG pO2 ABG HCO3 ABG O2 Saturation ABG Base Excess ABG Hemoglobin ABG Oxyhemoglobin ABG Sodium ABG Potassium ABG Chloride ABG Glucose Oxyhemoglobin Carboxyhemoglobin Sodium Potassium Chloride Carbon Dioxide BUN Creatinine Glucose POC Glucose 147 H 54 L 116 H Lactic Acid Calcium Phosphorus Magnesium Ferritin Total Bilirubin Direct Bilirubin AST ALT Alkaline Phosphatase Lactate Dehydrogenase C-Reactive Protein NT-Pro-B Natriuret Pep Total Protein Albumin Lipase Arterial Blood Glucose Arterial Blood Ionized Calcium Ur Specific [place] Vancomycin Trough Coronavirus (PCR) 05/16/21 05/16/21 05/16/21 04:31 04:31 05:58 WBC RBC 3.12 L Hgb 9.8 L Hct MCV 98 H MCH RDW 18.2 H Plt Count 115 L Lymph % (Auto) Eos % (Auto) Lymph # (Auto) Eos # (Auto) Seg Neutrophils % Seg Neuts % (Manual) Lymphocytes % (Manual) Seg Neutrophils # Man Lymphocytes # (Manual) PT INR APTT D-Dimer ABG pH POC ABG pCO2 POC ABG pO2 ABG pO2 ABG HCO3 ABG O2 Saturation ABG Base Excess ABG Hemoglobin ABG Oxyhemoglobin ABG Sodium ABG Potassium ABG Chloride ABG Glucose Oxyhemoglobin Carboxyhemoglobin Sodium 146 H Potassium 3.2 L Chloride Carbon Dioxide BUN 5 L Creatinine 0.5 L Glucose POC Glucose 61 L Lactic Acid Calcium 7.2 L Phosphorus 2.30 L Magnesium Ferritin Total Bilirubin Direct Bilirubin AST ALT Alkaline Phosphatase Lactate Dehydrogenase C-Reactive Protein NT-Pro-B Natriuret Pep Total Protein Albumin Lipase Arterial Blood Glucose Arterial Blood Ionized Calcium Ur Specific [place] Vancomycin Trough Coronavirus (PCR) 05/16/21 05/16/21 05/17/21 08:11 23:42 04:15 WBC RBC Hgb Hct MCV MCH RDW Plt Count Lymph % (Auto) Eos % (Auto) Lymph # (Auto) Eos # (Auto) Seg Neutrophils % Seg Neuts % (Manual) Lymphocytes % (Manual) Seg Neutrophils # Man Lymphocytes # (Manual) PT INR APTT D-Dimer ABG pH POC ABG pCO2 POC ABG pO2 ABG pO2 ABG HCO3 ABG O2 Saturation ABG Base Excess ABG Hemoglobin ABG Oxyhemoglobin ABG Sodium ABG Potassium ABG Chloride ABG Glucose Oxyhemoglobin Carboxyhemoglobin Sodium Potassium Chloride Carbon Dioxide BUN Creatinine Glucose POC Glucose 58 L 200 H Lactic Acid Calcium Phosphorus Magnesium Ferritin Total Bilirubin 1.70 H Direct Bilirubin 1.5 H AST 43 H ALT Alkaline Phosphatase 196 H Lactate Dehydrogenase C-Reactive Protein NT-Pro-B Natriuret Pep Total Protein 5.4 L Albumin 1.6 L Lipase Arterial Blood Glucose Arterial Blood Ionized Calcium Ur Specific [place] Vancomycin Trough Coronavirus (PCR) 05/17/21 05/17/21 05/17/21 04:15 04:15 05:07 WBC RBC 3.26 L Hgb Hct MCV 98 H MCH RDW 18.9 H Plt Count 114 L Lymph % (Auto) Eos % (Auto) Lymph # (Auto) Eos # (Auto) Seg Neutrophils % Seg Neuts % (Manual) Lymphocytes % (Manual) Seg Neutrophils # Man Lymphocytes # (Manual) PT INR APTT D-Dimer ABG pH POC ABG pCO2 POC ABG pO2 ABG pO2 ABG HCO3 ABG O2 Saturation ABG Base Excess ABG Hemoglobin ABG Oxyhemoglobin ABG Sodium ABG Potassium ABG Chloride ABG Glucose Oxyhemoglobin Carboxyhemoglobin Sodium Potassium Chloride Carbon Dioxide 35 H BUN 5 L Creatinine Glucose 274 H POC Glucose 249 H Lactic Acid Calcium 7.7 L Phosphorus 1.50 L D Magnesium Ferritin Total Bilirubin Direct Bilirubin AST ALT Alkaline Phosphatase Lactate Dehydrogenase C-Reactive Protein NT-Pro-B Natriuret Pep Total Protein Albumin Lipase Arterial Blood Glucose Arterial Blood Ionized Calcium Ur Specific [place] Vancomycin Trough Coronavirus (PCR) 05/17/21 05/17/21 05/17/21 11:56 16:29 23:37 WBC RBC Hgb Hct MCV MCH RDW Plt Count Lymph % (Auto) Eos % (Auto) Lymph # (Auto) Eos # (Auto) Seg Neutrophils % Seg Neuts % (Manual) Lymphocytes % (Manual) Seg Neutrophils # Man Lymphocytes # (Manual) PT INR APTT D-Dimer ABG pH POC ABG pCO2 POC ABG pO2 ABG pO2 ABG HCO3 ABG O2 Saturation ABG Base Excess ABG Hemoglobin ABG Oxyhemoglobin ABG Sodium ABG Potassium ABG Chloride ABG Glucose Oxyhemoglobin Carboxyhemoglobin Sodium Potassium Chloride Carbon Dioxide BUN Creatinine Glucose POC Glucose 176 H 219 H 150 H Lactic Acid Calcium Phosphorus Magnesium Ferritin Total Bilirubin Direct Bilirubin AST ALT Alkaline Phosphatase Lactate Dehydrogenase C-Reactive Protein NT-Pro-B Natriuret Pep Total Protein Albumin Lipase Arterial Blood Glucose Arterial Blood Ionized Calcium Ur Specific [place] Vancomycin Trough Coronavirus (PCR) 05/18/21 05/18/21 05/18/21 04:00 05:22 09:00 WBC RBC 3.34 L Hgb Hct MCV MCH RDW 18.8 H Plt Count Lymph % (Auto) Eos % (Auto) Lymph # (Auto) Eos # (Auto) Seg Neutrophils % Seg Neuts % (Manual) Lymphocytes % (Manual) Seg Neutrophils # Man Lymphocytes # (Manual) PT INR APTT D-Dimer ABG pH POC ABG pCO2 POC ABG pO2 ABG pO2 ABG HCO3 ABG O2 Saturation ABG Base Excess ABG Hemoglobin ABG Oxyhemoglobin ABG Sodium ABG Potassium ABG Chloride ABG Glucose Oxyhemoglobin Carboxyhemoglobin Sodium Potassium 5.4 H D Chloride 97.5 L Carbon Dioxide 33 H BUN Creatinine 0.4 L Glucose 461 H POC Glucose 181 H Lactic Acid Calcium 7.2 L Phosphorus 5.00 H D Magnesium Ferritin Total Bilirubin Direct Bilirubin AST ALT Alkaline Phosphatase Lactate Dehydrogenase C-Reactive Protein NT-Pro-B Natriuret Pep Total Protein Albumin Lipase Arterial Blood Glucose Arterial Blood Ionized Calcium Ur Specific [place] Vancomycin Trough Coronavirus (PCR) 05/18/21 05/18/21 05/18/21 11:16 12:50 16:29 WBC RBC Hgb Hct MCV MCH RDW Plt Count Lymph % (Auto) Eos % (Auto) Lymph # (Auto) Eos # (Auto) Seg Neutrophils % Seg Neuts % (Manual) Lymphocytes % (Manual) Seg Neutrophils # Man Lymphocytes # (Manual) PT INR APTT D-Dimer ABG pH POC ABG pCO2 POC ABG pO2 ABG pO2 ABG HCO3 ABG O2 Saturation ABG Base Excess ABG Hemoglobin ABG Oxyhemoglobin ABG Sodium ABG Potassium ABG Chloride ABG Glucose Oxyhemoglobin Carboxyhemoglobin Sodium Potassium 3.4 L D Chloride Carbon Dioxide 36 H BUN 19 H Creatinine 0.4 L Glucose 231 H POC Glucose 168 H 196 H Lactic Acid Calcium 7.5 L Phosphorus 1.80 L D Magnesium Ferritin Total Bilirubin Direct Bilirubin AST ALT Alkaline Phosphatase Lactate Dehydrogenase C-Reactive Protein NT-Pro-B Natriuret Pep Total Protein Albumin Lipase Arterial Blood Glucose Arterial Blood Ionized Calcium Ur Specific [place] Vancomycin Trough Coronavirus (PCR) 05/19/21 05/19/21 05/19/21 00:05 04:08 05:07 WBC RBC Hgb Hct MCV MCH RDW Plt Count Lymph % (Auto) Eos % (Auto) Lymph # (Auto) Eos # (Auto) Seg Neutrophils % Seg Neuts % (Manual) Lymphocytes % (Manual) Seg Neutrophils # Man Lymphocytes # (Manual) PT INR APTT D-Dimer ABG pH POC ABG pCO2 POC ABG pO2 ABG pO2 ABG HCO3 ABG O2 Saturation ABG Base Excess ABG Hemoglobin ABG Oxyhemoglobin ABG Sodium ABG Potassium ABG Chloride ABG Glucose Oxyhemoglobin Carboxyhemoglobin Sodium 146 H Potassium Chloride Carbon Dioxide 35 H BUN 25 H Creatinine 0.4 L Glucose 218 H POC Glucose 164 H 203 H Lactic Acid Calcium 7.2 L Phosphorus Magnesium Ferritin Total Bilirubin Direct Bilirubin AST ALT Alkaline Phosphatase Lactate Dehydrogenase C-Reactive Protein NT-Pro-B Natriuret Pep Total Protein Albumin Lipase Arterial Blood Glucose Arterial Blood Ionized Calcium Ur Specific [place] Vancomycin Trough Coronavirus (PCR) 05/19/21 05/19/21 05/19/21 12:16 14:14 17:11 WBC RBC Hgb Hct MCV MCH RDW Plt Count Lymph % (Auto) Eos % (Auto) Lymph # (Auto) Eos # (Auto) Seg Neutrophils % Seg Neuts % (Manual) Lymphocytes % (Manual) Seg Neutrophils # Man Lymphocytes # (Manual) PT INR APTT D-Dimer ABG pH 7.482 H POC ABG pCO2 POC ABG pO2 ABG pO2 111.7 H ABG HCO3 31.4 H ABG O2 Saturation ABG Base Excess 7.2 H ABG Hemoglobin 11.1 L ABG Oxyhemoglobin ABG Sodium ABG Potassium ABG Chloride ABG Glucose Oxyhemoglobin Carboxyhemoglobin Sodium Potassium Chloride Carbon Dioxide BUN Creatinine Glucose POC Glucose 206 H 194 H Lactic Acid Calcium Phosphorus Magnesium Ferritin Total Bilirubin Direct Bilirubin AST ALT Alkaline Phosphatase Lactate Dehydrogenase C-Reactive Protein NT-Pro-B Natriuret Pep Total Protein Albumin Lipase Arterial Blood Glucose Arterial Blood Ionized Calcium Ur Specific [place] Vancomycin Trough Coronavirus (PCR) 05/20/21 05/20/21 05/20/21 00:01 04:30 06:09 WBC RBC Hgb Hct MCV MCH RDW Plt Count Lymph % (Auto) Eos % (Auto) Lymph # (Auto) Eos # (Auto) Seg Neutrophils % Seg Neuts % (Manual) Lymphocytes % (Manual) Seg Neutrophils # Man Lymphocytes # (Manual) PT INR APTT D-Dimer ABG pH POC ABG pCO2 POC ABG pO2 ABG pO2 ABG HCO3 ABG O2 Saturation ABG Base Excess ABG Hemoglobin ABG Oxyhemoglobin ABG Sodium ABG Potassium ABG Chloride ABG Glucose Oxyhemoglobin Carboxyhemoglobin Sodium Potassium 3.5 L Chloride Carbon Dioxide BUN 24 H Creatinine 0.3 L Glucose 254 H POC Glucose 209 H 210 H Lactic Acid Calcium 7.5 L Phosphorus 1.90 L D Magnesium Ferritin Total Bilirubin 1.60 H Direct Bilirubin AST 201 H ALT 170 H Alkaline Phosphatase 169 H Lactate Dehydrogenase C-Reactive Protein NT-Pro-B Natriuret Pep Total Protein 5.3 L Albumin 1.9 L Lipase Arterial Blood Glucose Arterial Blood Ionized Calcium Ur Specific [place] Vancomycin Trough Coronavirus (PCR) 05/20/21 05/20/21 05/20/21 11:41 16:47 22:21 WBC RBC Hgb Hct MCV MCH RDW Plt Count Lymph % (Auto) Eos % (Auto) Lymph # (Auto) Eos # (Auto) Seg Neutrophils % Seg Neuts % (Manual) Lymphocytes % (Manual) Seg Neutrophils # Man Lymphocytes # (Manual) PT INR APTT D-Dimer ABG pH POC ABG pCO2 POC ABG pO2 ABG pO2 ABG HCO3 ABG O2 Saturation ABG Base Excess ABG Hemoglobin ABG Oxyhemoglobin ABG Sodium ABG Potassium ABG Chloride ABG Glucose Oxyhemoglobin Carboxyhemoglobin Sodium Potassium Chloride Carbon Dioxide BUN Creatinine Glucose POC Glucose 158 H 232 H 211 H Lactic Acid Calcium Phosphorus Magnesium Ferritin Total Bilirubin Direct Bilirubin AST ALT Alkaline Phosphatase Lactate Dehydrogenase C-Reactive Protein NT-Pro-B Natriuret Pep Total Protein Albumin Lipase Arterial Blood Glucose Arterial Blood Ionized Calcium Ur Specific [place] Vancomycin Trough Coronavirus (PCR) 05/21/21 05/21/21 05/21/21 00:35 04:00 04:00 WBC RBC 3.28 L Hgb Hct MCV MCH RDW 18.7 H Plt Count 125 L Lymph % (Auto) Eos % (Auto) Lymph # (Auto) Eos # (Auto) Seg Neutrophils % Seg Neuts % (Manual) Lymphocytes % (Manual) Seg Neutrophils # Man Lymphocytes # (Manual) PT INR APTT D-Dimer ABG pH POC ABG pCO2 POC ABG pO2 ABG pO2 ABG HCO3 ABG O2 Saturation ABG Base Excess ABG Hemoglobin ABG Oxyhemoglobin ABG Sodium ABG Potassium ABG Chloride ABG Glucose Oxyhemoglobin Carboxyhemoglobin Sodium Potassium 5.1 H D Chloride 108.7 H Carbon Dioxide BUN 21 H Creatinine 0.2 L Glucose 242 H POC Glucose 230 H Lactic Acid Calcium 7.3 L Phosphorus Magnesium Ferritin Total Bilirubin Direct Bilirubin AST ALT Alkaline Phosphatase Lactate Dehydrogenase C-Reactive Protein NT-Pro-B Natriuret Pep Total Protein Albumin Lipase Arterial Blood Glucose Arterial Blood Ionized Calcium Ur Specific [place] Vancomycin Trough Coronavirus (PCR) 05/21/21 05/21/21 05/21/21 05:08 11:47 17:43 WBC RBC Hgb Hct MCV MCH RDW Plt Count Lymph % (Auto) Eos % (Auto) Lymph # (Auto) Eos # (Auto) Seg Neutrophils % Seg Neuts % (Manual) Lymphocytes % (Manual) Seg Neutrophils # Man Lymphocytes # (Manual) PT INR APTT D-Dimer ABG pH POC ABG pCO2 POC ABG pO2 ABG pO2 ABG HCO3 ABG O2 Saturation ABG Base Excess ABG Hemoglobin ABG Oxyhemoglobin ABG Sodium ABG Potassium ABG Chloride ABG Glucose Oxyhemoglobin Carboxyhemoglobin Sodium Potassium Chloride Carbon Dioxide BUN Creatinine Glucose POC Glucose 196 H 139 H 147 H Lactic Acid Calcium Phosphorus Magnesium Ferritin Total Bilirubin Direct Bilirubin AST ALT Alkaline Phosphatase Lactate Dehydrogenase C-Reactive Protein NT-Pro-B Natriuret Pep Total Protein Albumin Lipase Arterial Blood Glucose Arterial Blood Ionized Calcium Ur Specific [place] Vancomycin Trough Coronavirus (PCR) 05/21/21 05/21/21 05/22/21 17:57 23:32 04:16 WBC RBC Hgb Hct MCV MCH RDW Plt Count Lymph % (Auto) Eos % (Auto) Lymph # (Auto) Eos # (Auto) Seg Neutrophils % Seg Neuts % (Manual) Lymphocytes % (Manual) Seg Neutrophils # Man Lymphocytes # (Manual) PT INR APTT D-Dimer ABG pH POC ABG pCO2 POC ABG pO2 ABG pO2 ABG HCO3 ABG O2 Saturation ABG Base Excess ABG Hemoglobin ABG Oxyhemoglobin ABG Sodium ABG Potassium ABG Chloride ABG Glucose Oxyhemoglobin Carboxyhemoglobin Sodium Potassium 5.2 H Chloride Carbon Dioxide BUN 19 H Creatinine 0.2 L Glucose 154 H POC Glucose 218 H 185 H Lactic Acid Calcium 7.5 L Phosphorus Magnesium Ferritin Total Bilirubin 3.00 H Direct Bilirubin 2.3 H AST 437 H ALT 462 H Alkaline Phosphatase 186 H Lactate Dehydrogenase C-Reactive Protein NT-Pro-B Natriuret Pep Total Protein 5.5 L Albumin 1.9 L Lipase Arterial Blood Glucose Arterial Blood Ionized Calcium Ur Specific [place] Vancomycin Trough Coronavirus (PCR) 05/22/21 05/22/21 05/22/21 04:30 04:30 04:30 WBC RBC Hgb Hct MCV MCH RDW Plt Count Lymph % (Auto) Eos % (Auto) Lymph # (Auto) Eos # (Auto) Seg Neutrophils % Seg Neuts % (Manual) Lymphocytes % (Manual) Seg Neutrophils # Man Lymphocytes # (Manual) PT 19.5 H INR 1.49 H APTT D-Dimer ABG pH POC ABG pCO2 POC ABG pO2 ABG pO2 ABG HCO3 ABG O2 Saturation ABG Base Excess ABG Hemoglobin ABG Oxyhemoglobin ABG Sodium ABG Potassium ABG Chloride ABG Glucose Oxyhemoglobin Carboxyhemoglobin Sodium 134 L Potassium Chloride Carbon Dioxide BUN 19 H Creatinine 0.2 L Glucose 208 H POC Glucose Lactic Acid Calcium 7.2 L Phosphorus 2.40 L D Magnesium Ferritin Total Bilirubin 2.20 H Direct Bilirubin AST 350 H ALT 496 H Alkaline Phosphatase 167 H Lactate Dehydrogenase C-Reactive Protein NT-Pro-B Natriuret Pep Total Protein 4.8 L Albumin 1.7 L Lipase Arterial Blood Glucose Arterial Blood Ionized Calcium Ur Specific [place] Vancomycin Trough Coronavirus (PCR) 05/22/21 05/22/21 05/22/21 11:59 17:16 23:07 WBC RBC Hgb Hct MCV MCH RDW Plt Count Lymph % (Auto) Eos % (Auto) Lymph # (Auto) Eos # (Auto) Seg Neutrophils % Seg Neuts % (Manual) Lymphocytes % (Manual) Seg Neutrophils # Man Lymphocytes # (Manual) PT INR APTT D-Dimer ABG pH POC ABG pCO2 POC ABG pO2 ABG pO2 ABG HCO3 ABG O2 Saturation ABG Base Excess ABG Hemoglobin ABG Oxyhemoglobin ABG Sodium ABG Potassium ABG Chloride ABG Glucose Oxyhemoglobin Carboxyhemoglobin Sodium Potassium Chloride Carbon Dioxide BUN Creatinine Glucose POC Glucose 204 H 244 H 226 H Lactic Acid Calcium Phosphorus Magnesium Ferritin Total Bilirubin Direct Bilirubin AST ALT Alkaline Phosphatase Lactate Dehydrogenase C-Reactive Protein NT-Pro-B Natriuret Pep Total Protein Albumin Lipase Arterial Blood Glucose Arterial Blood Ionized Calcium Ur Specific [place] Vancomycin Trough Coronavirus (PCR) 05/23/21 05/23/21 05/23/21 05:09 10:15 10:15 WBC RBC Hgb Hct MCV MCH RDW Plt Count Lymph % (Auto) Eos % (Auto) Lymph # (Auto) Eos # (Auto) Seg Neutrophils % Seg Neuts % (Manual) Lymphocytes % (Manual) Seg Neutrophils # Man Lymphocytes # (Manual) PT 16.9 H INR 1.24 H APTT D-Dimer ABG pH POC ABG pCO2 POC ABG pO2 ABG pO2 ABG HCO3 ABG O2 Saturation ABG Base Excess ABG Hemoglobin ABG Oxyhemoglobin ABG Sodium ABG Potassium ABG Chloride ABG Glucose Oxyhemoglobin Carboxyhemoglobin Sodium 131 L Potassium Chloride 97.5 L Carbon Dioxide BUN Creatinine < 0.2 L Glucose 248 H POC Glucose 175 H Lactic Acid Calcium 7.4 L Phosphorus Magnesium 1.60 L Ferritin Total Bilirubin Direct Bilirubin AST ALT Alkaline Phosphatase Lactate Dehydrogenase C-Reactive Protein NT-Pro-B Natriuret Pep Total Protein Albumin Lipase Arterial Blood Glucose Arterial Blood Ionized Calcium Ur Specific [place] Vancomycin Trough Coronavirus (PCR) 05/23/21 05/23/21 05/24/21 10:15 21:46 04:16 WBC RBC Hgb Hct MCV MCH RDW Plt Count Lymph % (Auto) Eos % (Auto) Lymph # (Auto) Eos # (Auto) Seg Neutrophils % Seg Neuts % (Manual) Lymphocytes % (Manual) Seg Neutrophils # Man Lymphocytes # (Manual) PT INR APTT D-Dimer ABG pH POC ABG pCO2 POC ABG pO2 ABG pO2 ABG HCO3 ABG O2 Saturation ABG Base Excess ABG Hemoglobin ABG Oxyhemoglobin ABG Sodium ABG Potassium ABG Chloride ABG Glucose Oxyhemoglobin Carboxyhemoglobin Sodium 130 L Potassium 3.5 L Chloride 97.1 L Carbon Dioxide BUN Creatinine 0.2 L Glucose 235 H POC Glucose 190 H Lactic Acid Calcium 6.8 L Phosphorus Magnesium Ferritin Total Bilirubin 2.30 H Direct Bilirubin 1.6 H AST 161 H ALT 396 H Alkaline Phosphatase 186 H Lactate Dehydrogenase C-Reactive Protein NT-Pro-B Natriuret Pep Total Protein 4.7 L Albumin 2.0 L Lipase Arterial Blood Glucose Arterial Blood Ionized Calcium Ur Specific [place] Vancomycin Trough Coronavirus (PCR) 05/24/21 05/25/21 05/25/21 05:32 04:25 04:25 WBC 11.7 H RBC 3.28 L Hgb Hct MCV MCH RDW 19.9 H Plt Count Lymph % (Auto) Eos % (Auto) Lymph # (Auto) Eos # (Auto) Seg Neutrophils % Seg Neuts % (Manual) Lymphocytes % (Manual) Seg Neutrophils # Man Lymphocytes # (Manual) PT INR APTT D-Dimer ABG pH POC ABG pCO2 POC ABG pO2 ABG pO2 ABG HCO3 ABG O2 Saturation ABG Base Excess ABG Hemoglobin ABG Oxyhemoglobin ABG Sodium ABG Potassium ABG Chloride ABG Glucose Oxyhemoglobin Carboxyhemoglobin Sodium 135 L Potassium 3.4 L Chloride Carbon Dioxide BUN Creatinine 0.2 L Glucose 105 H POC Glucose 208 H Lactic Acid Calcium 7.6 L Phosphorus Magnesium Ferritin Total Bilirubin Direct Bilirubin AST ALT Alkaline Phosphatase Lactate Dehydrogenase C-Reactive Protein NT-Pro-B Natriuret Pep Total Protein Albumin Lipase Arterial Blood Glucose Arterial Blood Ionized Calcium Ur Specific [place] Vancomycin Trough Coronavirus (PCR) 05/26/21 05/26/21 05/26/21 11:37 16:57 20:59 WBC RBC Hgb Hct MCV MCH RDW Plt Count Lymph % (Auto) Eos % (Auto) Lymph # (Auto) Eos # (Auto) Seg Neutrophils % Seg Neuts % (Manual) Lymphocytes % (Manual) Seg Neutrophils # Man Lymphocytes # (Manual) PT INR APTT D-Dimer ABG pH POC ABG pCO2 POC ABG pO2 ABG pO2 ABG HCO3 ABG O2 Saturation ABG Base Excess ABG Hemoglobin ABG Oxyhemoglobin ABG Sodium ABG Potassium ABG Chloride ABG Glucose Oxyhemoglobin Carboxyhemoglobin Sodium Potassium Chloride Carbon Dioxide BUN Creatinine Glucose POC Glucose 136 H 214 H 137 H Lactic Acid Calcium Phosphorus Magnesium Ferritin Total Bilirubin Direct Bilirubin AST ALT Alkaline Phosphatase Lactate Dehydrogenase C-Reactive Protein NT-Pro-B Natriuret Pep Total Protein Albumin Lipase Arterial Blood Glucose Arterial Blood Ionized Calcium Ur Specific [place] Vancomycin Trough Coronavirus (PCR) 05/26/21 05/27/21 05/27/21 23:52 05:40 16:49 WBC RBC Hgb Hct MCV MCH RDW Plt Count Lymph % (Auto) Eos % (Auto) Lymph # (Auto) Eos # (Auto) Seg Neutrophils % Seg Neuts % (Manual) Lymphocytes % (Manual) Seg Neutrophils # Man Lymphocytes # (Manual) PT INR APTT D-Dimer ABG pH POC ABG pCO2 POC ABG pO2 ABG pO2 ABG HCO3 ABG O2 Saturation ABG Base Excess ABG Hemoglobin ABG Oxyhemoglobin ABG Sodium ABG Potassium ABG Chloride ABG Glucose Oxyhemoglobin Carboxyhemoglobin Sodium Potassium Chloride Carbon Dioxide BUN Creatinine Glucose POC Glucose 111 H 144 H 213 H Lactic Acid Calcium Phosphorus Magnesium Ferritin Total Bilirubin Direct Bilirubin AST ALT Alkaline Phosphatase Lactate Dehydrogenase C-Reactive Protein NT-Pro-B Natriuret Pep Total Protein Albumin Lipase Arterial Blood Glucose Arterial Blood Ionized Calcium Ur Specific [place] Vancomycin Trough Coronavirus (PCR) 05/27/21 05/27/21 05/28/21 21:07 23:57 11:59 WBC RBC Hgb Hct MCV MCH RDW Plt Count Lymph % (Auto) Eos % (Auto) Lymph # (Auto) Eos # (Auto) Seg Neutrophils % Seg Neuts % (Manual) Lymphocytes % (Manual) Seg Neutrophils # Man Lymphocytes # (Manual) PT INR APTT D-Dimer ABG pH POC ABG pCO2 POC ABG pO2 ABG pO2 ABG HCO3 ABG O2 Saturation ABG Base Excess ABG Hemoglobin ABG Oxyhemoglobin ABG Sodium ABG Potassium ABG Chloride ABG Glucose Oxyhemoglobin Carboxyhemoglobin Sodium Potassium Chloride Carbon Dioxide BUN Creatinine Glucose POC Glucose 135 H 157 H 130 H Lactic Acid Calcium Phosphorus Magnesium Ferritin Total Bilirubin Direct Bilirubin AST ALT Alkaline Phosphatase Lactate Dehydrogenase C-Reactive Protein NT-Pro-B Natriuret Pep Total Protein Albumin Lipase Arterial Blood Glucose Arterial Blood Ionized Calcium Ur Specific [place] Vancomycin Trough Coronavirus (PCR) 05/28/21 05/29/21 05/29/21 17:05 01:03 05:07 WBC RBC Hgb Hct MCV MCH RDW Plt Count Lymph % (Auto) Eos % (Auto) Lymph # (Auto) Eos # (Auto) Seg Neutrophils % Seg Neuts % (Manual) Lymphocytes % (Manual) Seg Neutrophils # Man Lymphocytes # (Manual) PT INR APTT D-Dimer ABG pH POC ABG pCO2 POC ABG pO2 ABG pO2 ABG HCO3 ABG O2 Saturation ABG Base Excess ABG Hemoglobin ABG Oxyhemoglobin ABG Sodium ABG Potassium ABG Chloride ABG Glucose Oxyhemoglobin Carboxyhemoglobin Sodium 148 H D Potassium 3.0 L Chloride 108.0 H Carbon Dioxide BUN Creatinine 0.2 L Glucose 155 H POC Glucose 207 H 204 H Lactic Acid Calcium 7.7 L Phosphorus Magnesium Ferritin Total Bilirubin Direct Bilirubin AST ALT Alkaline Phosphatase Lactate Dehydrogenase C-Reactive Protein NT-Pro-B Natriuret Pep Total Protein Albumin Lipase Arterial Blood Glucose Arterial Blood Ionized Calcium Ur Specific [place] Vancomycin Trough Coronavirus (PCR) 05/29/21 05/29/21 05/29/21 08:20 11:30 17:53 WBC RBC Hgb Hct MCV MCH RDW Plt Count Lymph % (Auto) Eos % (Auto) Lymph # (Auto) Eos # (Auto) Seg Neutrophils % Seg Neuts % (Manual) Lymphocytes % (Manual) Seg Neutrophils # Man Lymphocytes # (Manual) PT INR APTT D-Dimer ABG pH POC ABG pCO2 POC ABG pO2 ABG pO2 ABG HCO3 ABG O2 Saturation ABG Base Excess ABG Hemoglobin ABG Oxyhemoglobin ABG Sodium ABG Potassium ABG Chloride ABG Glucose Oxyhemoglobin Carboxyhemoglobin Sodium Potassium Chloride Carbon Dioxide BUN Creatinine Glucose POC Glucose 119 H 199 H Lactic Acid Calcium Phosphorus Magnesium Ferritin Total Bilirubin Direct Bilirubin AST ALT Alkaline Phosphatase Lactate Dehydrogenase C-Reactive Protein NT-Pro-B Natriuret Pep Total Protein Albumin Lipase Arterial Blood Glucose Arterial Blood Ionized Calcium Ur Specific [place] Vancomycin Trough Coronavirus (PCR) Positive A 05/30/21 05/30/21 05/30/21 00:37 05:54 06:50 WBC RBC Hgb Hct MCV MCH RDW Plt Count Lymph % (Auto) Eos % (Auto) Lymph # (Auto) Eos # (Auto) Seg Neutrophils % Seg Neuts % (Manual) Lymphocytes % (Manual) Seg Neutrophils # Man Lymphocytes # (Manual) PT INR APTT D-Dimer ABG pH POC ABG pCO2 POC ABG pO2 ABG pO2 ABG HCO3 ABG O2 Saturation ABG Base Excess ABG Hemoglobin ABG Oxyhemoglobin ABG Sodium ABG Potassium ABG Chloride ABG Glucose Oxyhemoglobin Carboxyhemoglobin Sodium Potassium Chloride Carbon Dioxide BUN Creatinine Glucose POC Glucose 117 H 56 L 157 H Lactic Acid Calcium Phosphorus Magnesium Ferritin Total Bilirubin Direct Bilirubin AST ALT Alkaline Phosphatase Lactate Dehydrogenase C-Reactive Protein NT-Pro-B Natriuret Pep Total Protein Albumin Lipase Arterial Blood Glucose Arterial Blood Ionized Calcium Ur Specific [place] Vancomycin Trough Coronavirus (PCR) 05/30/21 05/30/21 05/31/21 17:18 23:54 05:27 WBC RBC Hgb Hct MCV MCH RDW Plt Count Lymph % (Auto) Eos % (Auto) Lymph # (Auto) Eos # (Auto) Seg Neutrophils % Seg Neuts % (Manual) Lymphocytes % (Manual) Seg Neutrophils # Man Lymphocytes # (Manual) PT INR APTT D-Dimer ABG pH POC ABG pCO2 POC ABG pO2 ABG pO2 ABG HCO3 ABG O2 Saturation ABG Base Excess ABG Hemoglobin ABG Oxyhemoglobin ABG Sodium ABG Potassium ABG Chloride ABG Glucose Oxyhemoglobin Carboxyhemoglobin Sodium Potassium Chloride Carbon Dioxide BUN Creatinine Glucose POC Glucose 181 H 130 H 112 H Lactic Acid Calcium Phosphorus Magnesium Ferritin Total Bilirubin Direct Bilirubin AST ALT Alkaline Phosphatase Lactate Dehydrogenase C-Reactive Protein NT-Pro-B Natriuret Pep Total Protein Albumin Lipase Arterial Blood Glucose Arterial Blood Ionized Calcium Ur Specific [place] Vancomycin Trough Coronavirus (PCR) 05/31/21 05/31/21 05/31/21 12:06 17:35 23:56 WBC RBC Hgb Hct MCV MCH RDW Plt Count Lymph % (Auto) Eos % (Auto) Lymph # (Auto) Eos # (Auto) Seg Neutrophils % Seg Neuts % (Manual) Lymphocytes % (Manual) Seg Neutrophils # Man Lymphocytes # (Manual) PT INR APTT D-Dimer ABG pH POC ABG pCO2 POC ABG pO2 ABG pO2 ABG HCO3 ABG O2 Saturation ABG Base Excess ABG Hemoglobin ABG Oxyhemoglobin ABG Sodium ABG Potassium ABG Chloride ABG Glucose Oxyhemoglobin Carboxyhemoglobin Sodium Potassium Chloride Carbon Dioxide BUN Creatinine Glucose POC Glucose 170 H 109 H 136 H Lactic Acid Calcium Phosphorus Magnesium Ferritin Total Bilirubin Direct Bilirubin AST ALT Alkaline Phosphatase Lactate Dehydrogenase C-Reactive Protein NT-Pro-B Natriuret Pep Total Protein Albumin Lipase Arterial Blood Glucose Arterial Blood Ionized Calcium Ur Specific [place] Vancomycin Trough Coronavirus (PCR) 06/02/21 06/02/21 06/02/21 04:28 05:36 08:59 WBC RBC 3.31 L Hgb Hct MCV 100 H MCH RDW 24.7 H Plt Count Lymph % (Auto) 12.8 L Eos % (Auto) 10.2 H Lymph # (Auto) 0.6 L Eos # (Auto) 0.5 H Seg Neutrophils % 75.5 H Seg Neuts % (Manual) Lymphocytes % (Manual) Seg Neutrophils # Man Lymphocytes # (Manual) PT INR APTT D-Dimer ABG pH 7.258 L 7.251 L POC ABG pCO2 73.4 H 67.7 H POC ABG pO2 33.0 L 189.6 H ABG pO2 ABG HCO3 ABG O2 Saturation ABG Base Excess ABG Hemoglobin 11.8 L 11.8 L ABG Oxyhemoglobin 48.8 L ABG Sodium 146.7 H 146.3 H ABG Potassium 3.1 L ABG Chloride 109.0 H ABG Glucose 64 L Oxyhemoglobin Carboxyhemoglobin 1.6 H Sodium Potassium Chloride Carbon Dioxide BUN Creatinine Glucose POC Glucose Lactic Acid Calcium Phosphorus Magnesium Ferritin Total Bilirubin Direct Bilirubin AST ALT Alkaline Phosphatase Lactate Dehydrogenase C-Reactive Protein NT-Pro-B Natriuret Pep Total Protein Albumin Lipase Arterial Blood Glucose 64 L Arterial Blood Ionized Calcium Ur Specific [place] Vancomycin Trough Coronavirus (PCR) 06/02/21 06/02/21 06/02/21 08:59 11:39 14:50 WBC RBC Hgb Hct MCV MCH RDW Plt Count Lymph % (Auto) Eos % (Auto) Lymph # (Auto) Eos # (Auto) Seg Neutrophils % Seg Neuts % (Manual) Lymphocytes % (Manual) Seg Neutrophils # Man Lymphocytes # (Manual) PT INR APTT D-Dimer ABG pH 7.339 L POC ABG pCO2 POC ABG pO2 ABG pO2 91.4 H ABG HCO3 26.2 H ABG O2 Saturation ABG Base Excess ABG Hemoglobin 11.3 L ABG Oxyhemoglobin ABG Sodium ABG Potassium ABG Chloride ABG Glucose Oxyhemoglobin 93.7 L Carboxyhemoglobin Sodium 148 H Potassium 2.9 L* Chloride 111.1 H Carbon Dioxide BUN Creatinine 0.3 L Glucose 29 L* POC Glucose 140 H Lactic Acid Calcium 7.7 L Phosphorus Magnesium 1.50 L Ferritin Total Bilirubin Direct Bilirubin AST ALT Alkaline Phosphatase Lactate Dehydrogenase C-Reactive Protein NT-Pro-B Natriuret Pep Total Protein Albumin Lipase Arterial Blood Glucose Arterial Blood Ionized Calcium Ur Specific [place] Vancomycin Trough Coronavirus (PCR) 06/02/21 06/02/21 06/02/21 17:49 19:47 21:30 WBC RBC Hgb Hct MCV MCH RDW Plt Count Lymph % (Auto) Eos % (Auto) Lymph # (Auto) Eos # (Auto) Seg Neutrophils % Seg Neuts % (Manual) Lymphocytes % (Manual) Seg Neutrophils # Man Lymphocytes # (Manual) PT INR APTT D-Dimer ABG pH POC ABG pCO2 POC ABG pO2 ABG pO2 ABG HCO3 ABG O2 Saturation ABG Base Excess ABG Hemoglobin ABG Oxyhemoglobin ABG Sodium ABG Potassium ABG Chloride ABG Glucose Oxyhemoglobin Carboxyhemoglobin Sodium Potassium Chloride 109.6 H Carbon Dioxide 21 L D BUN Creatinine Glucose 123 H POC Glucose 67 L 117 H Lactic Acid Calcium 7.5 L Phosphorus 5.20 H D Magnesium 2.90 H Ferritin Total Bilirubin Direct Bilirubin AST ALT Alkaline Phosphatase Lactate Dehydrogenase C-Reactive Protein NT-Pro-B Natriuret Pep Total Protein Albumin Lipase Arterial Blood Glucose Arterial Blood Ionized Calcium Ur Specific [place] Vancomycin Trough Coronavirus (PCR) 06/02/21 06/02/21 06/02/21 21:30 22:00 23:10 WBC RBC Hgb Hct MCV MCH RDW Plt Count Lymph % (Auto) Eos % (Auto) Lymph # (Auto) Eos # (Auto) Seg Neutrophils % Seg Neuts % (Manual) Lymphocytes % (Manual) Seg Neutrophils # Man Lymphocytes # (Manual) PT INR APTT D-Dimer ABG pH POC ABG pCO2 POC ABG pO2 ABG pO2 ABG HCO3 ABG O2 Saturation ABG Base Excess ABG Hemoglobin ABG Oxyhemoglobin ABG Sodium ABG Potassium ABG Chloride ABG Glucose Oxyhemoglobin Carboxyhemoglobin Sodium 147 H Potassium Chloride 111.7 H Carbon Dioxide BUN Creatinine Glucose 105 H POC Glucose 122 H Lactic Acid Calcium 7.5 L Phosphorus Magnesium Ferritin Total Bilirubin Direct Bilirubin AST 74 H ALT 96 H Alkaline Phosphatase 207 H Lactate Dehydrogenase C-Reactive Protein NT-Pro-B Natriuret Pep 2326 H Total Protein 5.0 L Albumin 2.0 L Lipase Arterial Blood Glucose Arterial Blood Ionized Calcium Ur Specific [place] Vancomycin Trough Coronavirus (PCR) 06/03/21 06/03/21 06/03/21 04:45 04:45 04:45 WBC 13.6 H RBC 3.44 L Hgb Hct MCV 102 H MCH RDW 25.4 H Plt Count Lymph % (Auto) Eos % (Auto) Lymph # (Auto) Eos # (Auto) Seg Neutrophils % Seg Neuts % (Manual) Lymphocytes % (Manual) Seg Neutrophils # Man Lymphocytes # (Manual) PT INR APTT D-Dimer ABG pH POC ABG pCO2 POC ABG pO2 ABG pO2 ABG HCO3 ABG O2 Saturation ABG Base Excess ABG Hemoglobin ABG Oxyhemoglobin ABG Sodium ABG Potassium ABG Chloride ABG Glucose Oxyhemoglobin Carboxyhemoglobin Sodium Potassium Chloride Carbon Dioxide BUN Creatinine Glucose 151 H POC Glucose Lactic Acid Calcium 7.6 L Phosphorus 6.70 H D Magnesium Ferritin Total Bilirubin Direct Bilirubin AST 68 H ALT 103 H Alkaline Phosphatase 226 H Lactate Dehydrogenase C-Reactive Protein NT-Pro-B Natriuret Pep Total Protein 6.0 L Albumin 2.0 L Lipase Arterial Blood Glucose Arterial Blood Ionized Calcium Ur Specific [place] Vancomycin Trough Coronavirus (PCR) 06/03/21 06/03/21 06/03/21 05:02 10:00 11:46 WBC RBC Hgb Hct MCV MCH RDW Plt Count Lymph % (Auto) Eos % (Auto) Lymph # (Auto) Eos # (Auto) Seg Neutrophils % Seg Neuts % (Manual) Lymphocytes % (Manual) Seg Neutrophils # Man Lymphocytes # (Manual) PT INR APTT D-Dimer ABG pH 7.312 L POC ABG pCO2 POC ABG pO2 ABG pO2 68.5 L ABG HCO3 ABG O2 Saturation 93.0 L ABG Base Excess ABG Hemoglobin 11.5 L ABG Oxyhemoglobin ABG Sodium ABG Potassium ABG Chloride ABG Glucose Oxyhemoglobin 90.1 L Carboxyhemoglobin Sodium Potassium Chloride Carbon Dioxide BUN Creatinine Glucose POC Glucose 139 H 150 H Lactic Acid Calcium Phosphorus Magnesium Ferritin Total Bilirubin Direct Bilirubin AST ALT Alkaline Phosphatase Lactate Dehydrogenase C-Reactive Protein NT-Pro-B Natriuret Pep Total Protein Albumin Lipase Arterial Blood Glucose Arterial Blood Ionized Calcium Ur Specific [place] Vancomycin Trough Coronavirus (PCR) 06/03/21 06/03/21 06/04/21 17:19 23:01 04:00 WBC RBC 2.99 L Hgb 9.7 L Hct 30.0 L MCV 101 H MCH 33 H RDW 25.3 H Plt Count Lymph % (Auto) Eos % (Auto) Lymph # (Auto) Eos # (Auto) Seg Neutrophils % Seg Neuts % (Manual) Lymphocytes % (Manual) Seg Neutrophils # Man Lymphocytes # (Manual) PT INR APTT D-Dimer ABG pH POC ABG pCO2 POC ABG pO2 ABG pO2 ABG HCO3 ABG O2 Saturation ABG Base Excess ABG Hemoglobin ABG Oxyhemoglobin ABG Sodium ABG Potassium ABG Chloride ABG Glucose Oxyhemoglobin Carboxyhemoglobin Sodium Potassium Chloride Carbon Dioxide BUN Creatinine Glucose POC Glucose 135 H 164 H Lactic Acid Calcium Phosphorus Magnesium Ferritin Total Bilirubin Direct Bilirubin AST ALT Alkaline Phosphatase Lactate Dehydrogenase C-Reactive Protein NT-Pro-B Natriuret Pep Total Protein Albumin Lipase Arterial Blood Glucose Arterial Blood Ionized Calcium Ur Specific [place] Vancomycin Trough Coronavirus (PCR) 06/04/21 06/04/21 06/04/21 04:40 05:02 10:00 WBC RBC Hgb Hct MCV MCH RDW Plt Count Lymph % (Auto) Eos % (Auto) Lymph # (Auto) Eos # (Auto) Seg Neutrophils % Seg Neuts % (Manual) Lymphocytes % (Manual) Seg Neutrophils # Man Lymphocytes # (Manual) PT INR APTT D-Dimer ABG pH POC ABG pCO2 52.2 H POC ABG pO2 82.9 L ABG pO2 ABG HCO3 ABG O2 Saturation ABG Base Excess ABG Hemoglobin ABG Oxyhemoglobin ABG Sodium 135.4 L ABG Potassium ABG Chloride ABG Glucose 163 H Oxyhemoglobin Carboxyhemoglobin 1.7 H Sodium Potassium Chloride Carbon Dioxide BUN 19 H Creatinine 0.5 L Glucose 150 H POC Glucose 137 H Lactic Acid Calcium 8.0 L Phosphorus Magnesium Ferritin Total Bilirubin Direct Bilirubin AST ALT 70 H Alkaline Phosphatase 204 H Lactate Dehydrogenase C-Reactive Protein NT-Pro-B Natriuret Pep Total Protein 5.7 L Albumin 1.8 L Lipase Arterial Blood Glucose 163 H Arterial Blood Ionized Calcium Ur Specific [place] Vancomycin Trough Coronavirus (PCR) 06/04/21 06/04/21 06/04/21 12:09 17:43 17:49 WBC RBC Hgb Hct MCV MCH RDW Plt Count Lymph % (Auto) Eos % (Auto) Lymph # (Auto) Eos # (Auto) Seg Neutrophils % Seg Neuts % (Manual) Lymphocytes % (Manual) Seg Neutrophils # Man Lymphocytes # (Manual) PT INR APTT D-Dimer ABG pH POC ABG pCO2 POC ABG pO2 66.6 L ABG pO2 ABG HCO3 ABG O2 Saturation ABG Base Excess ABG Hemoglobin 11.2 L ABG Oxyhemoglobin 91.9 L ABG Sodium 134.9 L ABG Potassium ABG Chloride 97.0 L ABG Glucose 181 H Oxyhemoglobin Carboxyhemoglobin Sodium Potassium Chloride Carbon Dioxide BUN Creatinine Glucose POC Glucose 160 H 170 H Lactic Acid Calcium Phosphorus Magnesium Ferritin Total Bilirubin Direct Bilirubin AST ALT Alkaline Phosphatase Lactate Dehydrogenase C-Reactive Protein NT-Pro-B Natriuret Pep Total Protein Albumin Lipase Arterial Blood Glucose 181 H Arterial Blood Ionized Calcium Ur Specific [place] Vancomycin Trough Coronavirus (PCR) 06/04/21 06/05/21 06/05/21 23:31 06:00 06:00 WBC RBC 3.13 L Hgb 10.0 L Hct MCV 100 H MCH RDW 24.6 H Plt Count 127 L Lymph % (Auto) Eos % (Auto) Lymph # (Auto) Eos # (Auto) Seg Neutrophils % Seg Neuts % (Manual) Lymphocytes % (Manual) Seg Neutrophils # Man Lymphocytes # (Manual) PT INR APTT D-Dimer ABG pH POC ABG pCO2 POC ABG pO2 ABG pO2 ABG HCO3 ABG O2 Saturation ABG Base Excess ABG Hemoglobin ABG Oxyhemoglobin ABG Sodium ABG Potassium ABG Chloride ABG Glucose Oxyhemoglobin Carboxyhemoglobin Sodium 136 L Potassium Chloride 94.2 L Carbon Dioxide 32 H BUN Creatinine 0.3 L Glucose 241 H POC Glucose 149 H Lactic Acid Calcium 8.3 L Phosphorus Magnesium Ferritin Total Bilirubin Direct Bilirubin AST ALT Alkaline Phosphatase 219 H Lactate Dehydrogenase 301 H C-Reactive Protein 22.40 H NT-Pro-B Natriuret Pep Total Protein 6.2 L Albumin 1.8 L Lipase Arterial Blood Glucose Arterial Blood Ionized Calcium Ur Specific [place] Vancomycin Trough Coronavirus (PCR) 06/05/21 06/05/21 06/05/21 06:00 06:00 06:12 WBC RBC Hgb Hct MCV MCH RDW Plt Count Lymph % (Auto) Eos % (Auto) Lymph # (Auto) Eos # (Auto) Seg Neutrophils % Seg Neuts % (Manual) Lymphocytes % (Manual) Seg Neutrophils # Man Lymphocytes # (Manual) PT 15.9 H INR 1.15 H APTT 37.1 H D-Dimer 1282.85 H ABG pH POC ABG pCO2 POC ABG pO2 ABG pO2 ABG HCO3 ABG O2 Saturation ABG Base Excess ABG Hemoglobin ABG Oxyhemoglobin ABG Sodium ABG Potassium ABG Chloride ABG Glucose Oxyhemoglobin Carboxyhemoglobin Sodium Potassium Chloride Carbon Dioxide BUN Creatinine Glucose POC Glucose 228 H Lactic Acid Calcium Phosphorus Magnesium Ferritin 717.1 H Total Bilirubin Direct Bilirubin AST ALT Alkaline Phosphatase Lactate Dehydrogenase C-Reactive Protein NT-Pro-B Natriuret Pep Total Protein Albumin Lipase Arterial Blood Glucose Arterial Blood Ionized Calcium Ur Specific [place] Vancomycin Trough Coronavirus (PCR) 06/05/21 06/05/21 06/05/21 09:17 12:20 17:07 WBC RBC Hgb Hct MCV MCH RDW Plt Count Lymph % (Auto) Eos % (Auto) Lymph # (Auto) Eos # (Auto) Seg Neutrophils % Seg Neuts % (Manual) Lymphocytes % (Manual) Seg Neutrophils # Man Lymphocytes # (Manual) PT INR APTT D-Dimer ABG pH POC ABG pCO2 54.0 H POC ABG pO2 140.6 H ABG pO2 ABG HCO3 ABG O2 Saturation ABG Base Excess ABG Hemoglobin 10.3 L ABG Oxyhemoglobin ABG Sodium 133.6 L ABG Potassium 3.3 L ABG Chloride 97.0 L ABG Glucose 179 H Oxyhemoglobin Carboxyhemoglobin Sodium Potassium Chloride Carbon Dioxide BUN Creatinine Glucose POC Glucose 220 H 197 H Lactic Acid Calcium Phosphorus Magnesium Ferritin Total Bilirubin Direct Bilirubin AST ALT Alkaline Phosphatase Lactate Dehydrogenase C-Reactive Protein NT-Pro-B Natriuret Pep Total Protein Albumin Lipase Arterial Blood Glucose 179 H Arterial Blood Ionized Calcium Ur Specific [place] Vancomycin Trough Coronavirus (PCR) 06/05/21 06/06/21 06/06/21 23:29 05:26 05:26 WBC 3.5 L RBC 3.21 L Hgb Hct MCV 98 H MCH RDW 23.9 H Plt Count 110 L Lymph % (Auto) Eos % (Auto) Lymph # (Auto) Eos # (Auto) Seg Neutrophils % Seg Neuts % (Manual) Lymphocytes % (Manual) Seg Neutrophils # Man Lymphocytes # (Manual) PT INR APTT D-Dimer ABG pH POC ABG pCO2 POC ABG pO2 ABG pO2 ABG HCO3 ABG O2 Saturation ABG Base Excess ABG Hemoglobin ABG Oxyhemoglobin ABG Sodium ABG Potassium ABG Chloride ABG Glucose Oxyhemoglobin Carboxyhemoglobin Sodium Potassium 3.2 L Chloride Carbon Dioxide 34 H BUN Creatinine 0.3 L Glucose 172 H POC Glucose 180 H Lactic Acid Calcium 8.0 L Phosphorus Magnesium Ferritin Total Bilirubin Direct Bilirubin AST ALT Alkaline Phosphatase 207 H Lactate Dehydrogenase C-Reactive Protein NT-Pro-B Natriuret Pep Total Protein 5.5 L Albumin 2.0 L Lipase Arterial Blood Glucose Arterial Blood Ionized Calcium Ur Specific [place] Vancomycin Trough Coronavirus (PCR) 06/06/21 06/06/21 06/06/21 05:30 09:00 11:15 WBC RBC Hgb Hct MCV MCH RDW Plt Count Lymph % (Auto) Eos % (Auto) Lymph # (Auto) Eos # (Auto) Seg Neutrophils % Seg Neuts % (Manual) Lymphocytes % (Manual) Seg Neutrophils # Man Lymphocytes # (Manual) PT INR APTT D-Dimer ABG pH POC ABG pCO2 59.5 H POC ABG pO2 72.0 L ABG pO2 ABG HCO3 ABG O2 Saturation ABG Base Excess ABG Hemoglobin 10.9 L ABG Oxyhemoglobin 91.7 L ABG Sodium 135.8 L ABG Potassium 2.8 L ABG Chloride 96.0 L ABG Glucose 172 H Oxyhemoglobin Carboxyhemoglobin Sodium Potassium Chloride Carbon Dioxide BUN Creatinine Glucose POC Glucose 159 H 172 H Lactic Acid Calcium Phosphorus Magnesium Ferritin Total Bilirubin Direct Bilirubin AST ALT Alkaline Phosphatase Lactate Dehydrogenase C-Reactive Protein NT-Pro-B Natriuret Pep Total Protein Albumin Lipase Arterial Blood Glucose 172 H Arterial Blood Ionized Calcium 4.5 L Ur Specific [place] Vancomycin Trough Coronavirus (PCR) Chest x-ray: image reviewed (No pneumothorax + SQ emphysema) Allied health notes reviewed: nursing
--- NOTE | 2021-06-06 16:41 | Vascular Lab Report ---
DUPLEX DOPPLER UPPER EXTREMITY VENOUS, RIGHT INDICATION / CLINICAL INFORMATION: R/O DVT. TECHNIQUE: Duplex doppler imaging was performed through the veins of the right upper extremity using venous compression and other maneuvers. COMPARISON: Right upper extremity venous Doppler 05/14/2021. FINDINGS: RIGHT INTERNAL JUGULAR VEIN: Negative. RIGHT SUBCLAVIAN VEIN: Negative. RIGHT AXILLARY VEIN: Negative. RIGHT BRACHIAL VEIN: Negative. RIGHT FOREARM VEINS: Negative. RIGHT BASILIC VEIN (SUPERFICIAL): Negative. ADDITIONAL FINDINGS: None. IMPRESSION: 1. No sonographic evidence for DVT. Scribed by: Litzy Kirk RDMS, RVT Scribed: 06/06/2021 3:35 PM I have reviewed the images, agree with this report, and edited this report as needed. Signer Name: Mazin Painting MD Signed: 06/06/2021 4:37 PM Workstation Name: [id number]
--- NOTE | 2021-06-06 19:02 | Progress Note ---
Assessment and Plan Assessment and plan: This is a 48-year-old female with COPD, pancreatic cancer with radiation s/p pancreatic stent placement, pulmonary fibrosis, chronic respiratory failure on 2 L nasal cannula admitted with sepsis, transaminitis and lactic acidosis now with COVID 19 PNA. Neuro: Sedated -Sedated with propofol and fentanyl -RASS goal 0 to -1 -Avoid delirium -Reorientation as needed -Maintain sleep-wake cycle -Daily SAT and SBT when appropriate CV: Hypotension, h/o HTN -Hold home htn medications -s/p vasopressor support with levo -BP monitoring per protocol -Hold home htn medications -s/p IV Lasix X 3 days Respiratory: Acute on chronic respiratory failure, h/o pulmonary fibrosis, acute on chronic respiratory failure on home O2 of 2 L nasal cannula -Intubated on 06/02 with 7.5 oett with 22 @ lips -AM vent settings: AC Rate 20, tidal volume 450, PEEP 10, FiO2 70% -[facility] made vent changes -Decrease PEEP to 8, tidal volume to 400 -VAP bundle -s/p Bipap and Optiflow -Pulmicort, brovana -Daily SBT and SAT trials as tolerated -Daily ABG and CXR per [facility] -Continuos SPO2 monitoring -goal above 92% GI: Transaminitis, protein calorie malnutrition, biliary dilation, r/o cholangitis, h/o pancreatic cancer s/p stent placement -CT abdomen/pelvis showed pancreatic cancer with metallic stent with possible occlusion, mild pelvic fluid and mild colonic thickening -GI consulted, appreciate recommendations -MRCP pending-> plan for once respiratory status stable -If stent occlusion/biliary obstruction would recommend IR consult for PTC drain per GI -Ntr consult for TF -ST evaluation -PPI -BR: senokat -24-hour -621 mL -Acute hepatitis panel negative -Trend LFTs -Abd US shows findings similar to hepatomegaly and steatosis without significant abnormalities in the right quadrant -Bentyl QID : Urinary retention, hypokalemia -Strict intake and output -Almaraz replaced 06/05 d/t retention -FWF reduced to original ntr orders -Daily weights -Renally dose meds -Avoid nephrotoxins -Repeat potassium -Trend BMP Endo: Hyperglycemia, s/p hypoglycemia -Hypoglycemia protocol -Avoid hypoglycemia -SSI every 6 hours -Lantus, titrate as needed ID: Septic shock, COVID 19 PNA, Lactic acidosis (improving), GNR in tracheal aspirate -COVID 19 PCR (+), initial COVID 19 PCR (-) -Blood cultures x2 no growth to date -Remdisivir 06/03-06/06 -trend LFTS -Dexamethasone 05/28-06/07 -s/p IV meropenem -06/03 tracheal aspirate with GNR -will hold off treating d/t normal WBC and afebrile -will hold off treatment till speciation -Contact/droplet precautions -Monitor WBC and fever curve -Vitamin C/D/zinc -Trend COVID 19 inflammatory marker Heme: Elevated INR, thrombocytopenia, elevated ddimer -Trend CBC -Transfuse for hemoglobin less than 7 -SCD to bilateral lower extremities while in bed -Lovenox subcu->changed to arixta -BLE doppplar US negative for DVT -HIT pending -RUE swelling-> RUE doppler neg DVT Oncology: h/o pancreatic head cancer -F/U with outpatient oncologist -Currently on radiation -Not a surgical candidate per GI -Right chest post accessed The high probability of a clinically significant, sudden or life threatening deterioration of the [resp, GI] system(s) required my full and direct attention, intervention and personal management. The aggregate critical care time was [60] minutes. This time is in addition to time spent performing reported procedures but includes the following: [x] Data Review and interpretation [x] Patient assessment and monitoring of vital signs [x] Documentation [x] Medication orders and management Disposition Plan: ICU Total Time Spent with Patient (Minutes): 60 History Interval history: This is a 51-year-old female with COPD, pancreatic cancer and radiation, s/p pancreatic stent placement, pulmonary fibrosis, hypertension and chronic respiratory failure on 2 L oxygen via nasal cannula who presented to emergency department on 05/11 with complaints of right upper quadrant pain which started approximately at 0200 with nausea and vomiting. Work-up in the emergency department included a CTA chest which showed no pulmonary embolism, mild fluid- filled esophagus and distended stomach with bilateral interstitial opacity in the chest, and CT abdomen/pelvis with contrast which showed persistent pancreatic carcinoma with indwelling metallic stent which is suspected to be occluded. Lab work revealed leukocytosis, transaminitis and lactic acidosis. Patient became hypotensive in the emergency department and required 3 L of IV fluid and was eventually started on vasopressors after placement of femoral central line. Patient was started on empiric antibiotics. Admitted to the hospitalist service with consults to GI and [facility] for transaminitis, possible sepsis, and lactic acidosis. she was set to discharge to hospice however she test positive to COVID 19 and was eventually intubated. 05/12: Patient remains on high-dose Levophed and vasopressin. Given 1 L LR bolus. GI would like an MRCP to be conducted which has been ordered. Patient cleared for sips of water. Added Tessalon due to severe cough. Potassium repleted. Covid PCR negative. 05/13: Remains on Levophed and vasopressin has been off since yesterday evening. Started on stress dose steroids. MRCP pending. Hypokalemia, hypomagnesemia and hypophosphatemia repleted. Liver enzymes trending down. Started on D5 normal saline yesterday. 05/14: Patient with worsen respiratory status this am, tachypneic with increased O2 requirement. On full support on the Bipap this am with worsening diffuse bilateral opacities on CXR, s/p X1 dose of IV lasix overnight. Patient remains afebrile with no leukocytosis. Will continue IV Lasix X3 doses, f/u CXR in the am. D/W CCM due to patient worsening respiratory status hold on MRCP for today. Patient is off Levophed this am, leave pressors on standby might need to be put back on low dose pressors with IV diuretic. Patient also noted with Rt. fem CVC which was inserted in the ED, most likely due to be change, unsuccessfult PICC by IVT today and patient is refusing Port access at this time. 05/15: Patient remains on continuous Bipap overnight, desat when bipap is removed for mouth care. Plan to wean Fio2 as tolerated for SPO2 goal above 90%. Febrile overnight, TMAX 101.4, on IV abx zosyn, repeat blood culture ordered. Low K and phosph repleted, repeat labs in the am. 05/16: Patient back on full support on the Bipap, still not tolerating FiO2 wean, patient desat in the 80s. D/w [facility] plan to continue continuous bipap for now, patient going on over 4 days with no nutrition plan to initiate TPN tomorrow. D10w gtt added for hypoglycemia. Patient platelet continue to steadily drop, given patient's history with continue AC for now, H&H is stable, no s/s of any active bleeding. Electrolytes repleted, will continue to trend CBC, BMP, mg, and phos. MRCP canceled, plan to reorder once patient's respiratory status is more stable. 05/17: Patient remains on continuous Bipap. Patient remains on low dose Levophed, plan to wean off pressors as tolerated for a MAP above 65. Clinimix initiated overnight, plan to start TPN tonight. Hyperglycemic overnight, SSI was initiated. Low phos repleted, repeat lab in the am. 05/18: Down to 60% FIo2 on the Bipap, SPO2 above 97%. Off pressros this am, TPN is running. Patient is now hyperglycemic, SSI adjusted. Consider basal dose, lantus if hyperglycemia persist. This am labs noted, hyperkalemia and really high glucose noted totally different from normal trend, orders placed for redraw. 05/19: Overnight events noted. Started on PRN haldol for agitation. Patient placed on heated high Flow at 100%, 40L SPO2 at 100%. Continue to wean Fio2 as tolerated for SPO2 for SPO2 above 92%. Continue TPN for now. Patient still hyperglycemic basal dose lantus added Qhs. 05/20: Patient is tolerating HHFL NC, SPO2 above 95%. Continue HHFL NC during and Bipap at night. Still on TPN for nutrition, hyperglycemia persists- basal insulin increased. Low K and phosp was repleted, repeat lab in the am. 05/21: Patient unable to tolerate OptiFlow for more than couple hours and was placed back on BiPAP due to desaturation. Patient remains on TPN for nutrition which was held today due to hyperkalemia. P.m. BMP ordered but not collected. Patient refused to have port accessed and PICC line ordered. Down grading to [facility] status 05/22: abdominal ultrasound shows findings of emergency megaly and steatosis without other significant abnormality in the right upper quadrant. ST eval ordered and Ntr consult for cyclic TF. midline ordered 05/21 abdominal ultrasound shows findings of emergency megaly and steatosis without other significant abnormality in the right upper quadrant. ST eval ordered and Ntr consult for cyclic TF. midline ordered 05/23/ Patient with acute on chronic resp failure, COPD, pancreatic cancer. She has been transferred to [facility]. She is on BIPAP Hypomag. Replace and recheck in am 05/24/21 Patient with acute on chronic resp failure. Still on BIPAP. To start tube feeding 05/25/21: Patient with acute on chronic respiratory failure, She desaturated down to Oxygen sat 85% today, Will order CT Angio to r/o pulmonary embolism 05/26/21: patient remains on bipap, o2 sat in 90s. CT angio not completed yesterday as patient could not lay flat. Add dilaudid for improved pain control to patient medications and advised staff veterinarian to re-attempt CT angio. Patient has a poor prognosis given pulmonary fibrosis and pancreatic cancer. Will likely re- visit talks of palliaitive care as she may benefit more from this. 05/27/21: Remains bipap dependent. D/w patient regarding comfort care/hospice, she is interested. CM consulted. Patient would still like to remain full code 05/28/21: Remains bipap dependent. Spoke with Eriberto (daughter) who states that she is in agreement for comfort measures for her mother. Coordinating with case management for inpatient hospice referral. Daughter also requested to see her mother in person. Unfortunately due to visitation limitations as a result of the COVID-19 pandemic, daughter will only be able to communicate via telecommunication devices at this time. Care staff was notified the patient is Swedish-speaking and to call the daughter if they would like to communicate with the patient. 05/29/2021: Spoke with Eriberto (daughter) who states that she is in agreement for comfort measures for her mother. Referral made to [facility]. Patient will discharge to inpatient hospice today. 05/30/2021: Patient's covid test results returned positive. Patient's pending discharge was cancelled as inpatient hospice will not accept a covid + patient. Case Management met with patient's daughter to update on status. Patient's prognosis remains poor. Patient on BiPAP (IPAP 15, EPAP 10, FiO2 85%). Patient started on steroids yesterday and we will start remdesivir today. I discussed the case with pulmonary. Patient will remain a full code I discussed the case with the daughter. 05/31/2021: Patient remains on BiPAP (IPAP 15, EPAP 10, FiO2 80%). Patient's prognosis remains poor. Continue steroids and remdesivir. 06/01/2021. Patient currently off BiPAP and with high flow nasal cannula/nonrebreather 40 L O2 with FiO2 of 100%. Continue BiPAP at night. Patient will be intubated and placed on mechanical ventilation if she decompensates. Patient's prognosis remains poor. Continue steroids and remdesivir. Pulmonary Taper dexamethasone to 4 mg IV daily. Follow-up serial chest x-ray and ABGs. Patient with gentle diuresis with Lasix 20 mg IV daily. 06/02: Patient intubated and sedated, RASS -5. Now hypotensive with tachycardia, on levophed gtt, continue continuous IVF and titrate pressors for MAP above 65. Hypokalemia and hypomagnesemia repleted, repeat labs 4hrs post treatment. Severely hypoglycemic this am, per RN TF has been on hold since patient was on Bipap. Low BG treated per hypoglycemic protocol, plan to resume TF today. 06/03: RASS of 0 to -1 this am, following commands, remains on sedation. Mirza in WBCs this am, patient remains afebrile, blood culture and sputum culture pending. Probably reactive, patient on IV steroids, remdesevir starting tonight. Continue to trend CBC. Conference call with [facility] and patient's son and daughter today. All questions and concerns were addressed. 06/04: started on stress dose steroids, BLE dopplars pending, Remove almaraz and request records. 06/05: HIT panel sent today, started Arixtra, decrease free water flush, almaraz replaced re retention, Will not treat gram-negative in tracheal aspirate until speciation given normal WBCs and afebrile state. increase in the long acting insulin. Levophed titrated off 06/06: Noted to have subcutaneous air and his stat CXR showed no pneumothorax, vent changes per [facility]. Hypokalemia which was repleted. Right upper extremity Doppler ultrasound obtained due to swelling but shows no DVT Hospitalist Physical - Constitutional Vitals: Temp Pulse Resp BP Pulse Ox 96.2 F L 68 16 99/73 93 06/06/21 12:02 06/06/21 18:30 06/06/21 18:30 06/06/21 18:30 06/06/21 18:30 General appearance: Present: no acute distress, other (Intubated and Sedated) - EENT Eyes: Present: PERRL, EOM intact ENT: clear oral mucosa, dentition normal - Neck Neck: Present: normal ROM - Respiratory Respiratory effort: normal Respiratory: bilateral: diminished - Cardiovascular Rhythm: regular Heart Sounds: Present: S1 & S2. Absent: systolic murmur, diastolic murmur - Extremities Extremities: no ischemia, pulses intact, pulses symmetrical, normal temperature, normal color Extremity abnormal: edema (Right upper extremity), other Peripheral Pulses: within normal limits - Abdominal General gastrointestinal: soft, non-tender, non-distended, normal bowel sounds - Integumentary Integumentary: Present: warm (Subcutaneous air chest/neck), dry - Psychiatric Psychiatric: other (Sedated) - Neurologic Neurologic: other (Intact cough/gag, pupils equal round reactive) - Allied Health Allied health notes reviewed: nursing, RT, social work Results - Labs CBC & Chem 7: 06/06/21 05:26 06/06/21 05:26 Labs: Laboratory Last Values WBC 3.5 K/mm3 (4.5-11.0) L 06/06/21 05:26 RBC 3.21 M/mm3 (3.65-5.03) L 06/06/21 05:26 Hgb 10.1 gm/dl (10.1-14.3) 06/06/21 05:26 Hct 31.4 % (30.3-42.9) 06/06/21 05:26 MCV 98 fl (79-97) H 06/06/21 05:26 MCH 31 pg (28-32) 06/06/21 05:26 MCHC 32 % (30-34) 06/06/21 05:26 RDW 23.9 % (13.2-15.2) H 06/06/21 05:26 Plt Count 110 K/mm3 (140-440) L 06/06/21 05:26 Lymph % (Auto) 12.8 % (13.4-35.0) L 06/02/21 08:59 Lee % (Auto) 1.0 % (0.0-7.3) 06/02/21 08:59 Eos % (Auto) 10.2 % (0.0-4.3) H 06/02/21 08:59 Baso % (Auto) 0.5 % (0.0-1.8) 06/02/21 08:59 Lymph # (Auto) 0.6 K/mm3 (1.2-5.4) L 06/02/21 08:59 Lee # (Auto) 0.0 K/mm3 (0.0-0.8) 06/02/21 08:59 Eos # (Auto) 0.5 K/mm3 (0.0-0.4) H 06/02/21 08:59 Baso # (Auto) 0.0 K/mm3 (0.0-0.1) 06/02/21 08:59 Add Manual Diff Complete 05/12/21 04:08 Total Counted 200 05/12/21 04:08 Seg Neutrophils % 75.5 % (40.0-70.0) H 06/02/21 08:59 Seg Neuts % (Manual) 85.5 % (40.0-70.0) H 05/12/21 04:08 Band Neutrophils % 8.5 % 05/12/21 04:08 Lymphocytes % (Manual) 2.0 % (13.4-35.0) L 05/12/21 04:08 Monocytes % (Manual) 3.0 % (0.0-7.3) 05/12/21 04:08 Eosinophils % (Manual) 1.0 % (0.0-4.3) 05/12/21 04:08 Nucleated RBC % Not Reportable 05/12/21 04:08 Seg Neutrophils # 3.6 K/mm3 (1.8-7.7) 06/02/21 08:59 Seg Neutrophils # Man 19.5 K/mm3 (1.8-7.7) H 05/12/21 04:08 Band Neutrophils # 1.9 K/mm3 05/12/21 04:08 Lymphocytes # (Manual) 0.5 K/mm3 (1.2-5.4) L 05/12/21 04:08 Abs React Lymphs (Man) 0.0 K/mm3 05/12/21 04:08 Monocytes # (Manual) 0.7 K/mm3 (0.0-0.8) 05/12/21 04:08 Eosinophils # (Manual) 0.2 K/mm3 (0.0-0.4) 05/12/21 04:08 Basophils # (Manual) 0.0 K/mm3 (0.0-0.1) 05/12/21 04:08 Metamyelocytes # 0.0 K/mm3 05/12/21 04:08 Myelocytes # 0.0 K/mm3 05/12/21 04:08 Promyelocytes # 0.0 K/mm3 05/12/21 04:08 Blast Cells # 0.0 K/mm3 05/12/21 04:08 WBC Morphology Not Reportable 05/12/21 04:08 Hypersegmented Neuts Not Reportable 05/12/21 04:08 Hyposegmented Neuts Not Reportable 05/12/21 04:08 Hypogranular Neuts Not Reportable 05/12/21 04:08 Smudge Cells Not Reportable 05/12/21 04:08 Toxic Granulation Not Reportable 05/12/21 04:08 Toxic Vacuolation Not Reportable 05/12/21 04:08 Dohle Bodies Not Reportable 05/12/21 04:08 Pelger-Huet Anomaly Not Reportable 05/12/21 04:08 Elizabeth Rods Not Reportable 05/12/21 04:08 Platelet Estimate Consistent w auto 05/12/21 04:08 Clumped Platelets Not Reportable 05/12/21 04:08 Plt Clumps, EDTA Not Reportable 05/12/21 04:08 Large Platelets Not Reportable 05/12/21 04:08 Giant Platelets Not Reportable 05/12/21 04:08 Platelet Satelliting Not Reportable 05/12/21 04:08 Plt Morphology Comment Not Reportable 05/12/21 04:08 RBC Morphology Not Reportable 05/12/21 04:08 Dimorphic RBCs Not Reportable 05/12/21 04:08 Polychromasia Not Reportable 05/12/21 04:08 Hypochromasia Not Reportable 05/12/21 04:08 Poikilocytosis Not Reportable 05/12/21 04:08 Anisocytosis 1+ 05/12/21 04:08 Microcytosis Not Reportable 05/12/21 04:08 Macrocytosis Not Reportable 05/12/21 04:08 Spherocytes Not Reportable 05/12/21 04:08 Pappenheimer Bodies Not Reportable 05/12/21 04:08 Sickle Cells Not Reportable 05/12/21 04:08 Target Cells Not Reportable 05/12/21 04:08 Tear Drop Cells Not Reportable 05/12/21 04:08 Ovalocytes Not Reportable 05/12/21 04:08 Helmet Cells Not Reportable 05/12/21 04:08 Sibley-Debary Bodies Not Reportable 05/12/21 04:08 Manning Rings Not Reportable 05/12/21 04:08 Ponderosa Cells Not Reportable 05/12/21 04:08 Bite Cells Not Reportable 05/12/21 04:08 Crenated Cell Not Reportable 05/12/21 04:08 Elliptocytes Not Reportable 05/12/21 04:08 Acanthocytes (Spur) Not Reportable 05/12/21 04:08 Rouleaux Not Reportable 05/12/21 04:08 Hemoglobin C Crystals Not Reportable 05/12/21 04:08 Schistocytes Not Reportable 05/12/21 04:08 Malaria parasites Not Reportable 05/12/21 04:08 Tahir Bodies Not Reportable 05/12/21 04:08 Hem Pathologist Commnt No 05/12/21 04:08 PT 15.9 Sec. (12.2-14.9) H 06/05/21 06:00 INR 1.15 (0.87-1.13) H 06/05/21 06:00 APTT 37.1 Sec. (24.2-36.6) H 06/05/21 06:00 D-Dimer 1282.85 ng/mlDDU (0-234) H 06/05/21 06:00 ABG pH 7.392 (7.320-7.450) 06/06/21 09:00 POC ABG pCO2 59.5 mmHg (32.0-48.0) H 06/06/21 09:00 ABG pCO2 50.3 mm Hg 06/03/21 10:00 POC ABG pO2 72.0 mmHg (83-108) L 06/06/21 09:00 ABG pO2 68.5 mm Hg (80.0-90.0) L 06/03/21 10:00 POC ABG HCO3 35.4 06/06/21 09:00 ABG HCO3 24.8 mmol/L (20.0-26.0) 06/03/21 10:00 ABG O2 Saturation 93.2 (0-100) 06/06/21 09:00 ABG O2 Content 14.6 (0.0-44) 06/03/21 10:00 POC ABG Base Excess 8.8 06/06/21 09:00 ABG Base Excess -1.7 mmol/L (-2.0-3.0) 06/03/21 10:00 ABG Hemoglobin 10.9 (12.0-17.5) L 06/06/21 09:00 ABG Oxyhemoglobin 91.7 (94-98) L 06/06/21 09:00 ABG Carboxyhemoglobin 2.5 % (0.0-5.0) 06/03/21 10:00 ABG Methemoglobin 0.3 (0.0-1.5) 06/06/21 09:00 ABG Sodium 135.8 mmol/L (136.0-145.0) L 06/06/21 09:00 ABG Potassium 2.8 mmol/L (3.40-4.50) L 06/06/21 09:00 ABG Chloride 96.0 mmol/L (98-107) L 06/06/21 09:00 ABG Glucose 172 mg/dL (65-95) H 06/06/21 09:00 Oxyhemoglobin 90.1 % (95.0-99.0) L 06/03/21 10:00 Carboxyhemoglobin 1.3 (0.5-1.5) 06/06/21 09:00 FiO2 85 % 06/03/21 10:00 FiO2 % 70 06/06/21 09:00 Sodium 143 mmol/L (137-145) D 06/06/21 05:26 Potassium 3.2 mmol/L (3.6-5.0) L 06/06/21 05:26 Chloride 98.5 mmol/L (98-107) 06/06/21 05:26 Carbon Dioxide 34 mmol/L (22-30) H 06/06/21 05:26 Anion Gap 14 mmol/L 06/06/21 05:26 BUN 15 mg/dL (7-17) 06/06/21 05:26 Creatinine 0.3 mg/dL (0.6-1.2) L 06/06/21 05:26 Estimated GFR > 60 ml/min 06/06/21 05:26 BUN/Creatinine Ratio 50 % 06/06/21 05:26 Glucose 172 mg/dL (65-100) H 06/06/21 05:26 POC Glucose 122 mg/dL (70-105) H 06/06/21 16:07 Hemoglobin A1c 5.2 % (4-6) 05/12/21 04:08 Lactic Acid 3.30 mmol/L (0.7-2.0) H* 05/12/21 Unknown Calcium 8.0 mg/dL (8.4-10.2) L 06/06/21 05:26 Phosphorus 4.10 mg/dL (2.5-4.5) D 06/04/21 04:40 Magnesium 1.90 mg/dL (1.7-2.3) 06/04/21 04:40 Ferritin 717.1 ng/mL (10.0-200.0) H 06/05/21 06:00 Total Bilirubin 0.80 mg/dL (0.1-1.2) 06/06/21 05:26 Direct Bilirubin 1.6 mg/dL (0-0.2) H 05/23/21 10:15 Indirect Bilirubin 0.7 mg/dL 05/23/21 10:15 AST 25 units/L (5-40) 06/06/21 05:26 ALT 42 units/L (7-56) 06/06/21 05:26 Alkaline Phosphatase 207 units/L (35-129) H 06/06/21 05:26 Lactate Dehydrogenase 301 units/L (91-180) H 06/05/21 06:00 C-Reactive Protein 22.40 mg/dL (0.00-1.30) H 06/05/21 06:00 NT-Pro-B Natriuret Pep 2326 pg/mL (0-900) H 06/02/21 22:00 Total Protein 5.5 g/dL (6.3-8.2) L 06/06/21 05:26 Albumin 2.0 g/dL (3.9-5) L 06/06/21 05:26 Albumin/Globulin Ratio 0.6 % 06/06/21 05:26 Triglycerides 90 mg/dL (2-149) 05/23/21 10:15 Lipase 3 units/L (13-60) L 05/11/21 05:43 Arterial Blood Glucose 172 mg/dL (65-95) H 06/06/21 09:00 Arterial Blood Ionized Calcium 4.5 mg/dL (4.6-5.3) L 06/06/21 09:00 Urine Color Deisi (Yellow) 05/11/21 11:18 Urine Turbidity Clear (Clear) 05/11/21 11:18 Urine pH 6.0 (5.0-7.0) 05/11/21 11:18 Ur Specific [place] 1.035 (1.003-1.030) H 05/11/21 11:18 Urine Protein 100 mg/dl mg/dL (Negative) 05/11/21 11:18 Urine Glucose (UA) Neg mg/dL (Negative) 05/11/21 11:18 Urine Ketones Neg mg/dL (Negative) 05/11/21 11:18 Urine Blood Neg (Negative) 05/11/21 11:18 Urine Nitrite Neg (Negative) 05/11/21 11:18 Urine Bilirubin Neg (Negative) 05/11/21 11:18 Urine Urobilinogen < 2.0 mg/dL (<2.0) 05/11/21 11:18 Ur Leukocyte Esterase Neg (Negative) 05/11/21 11:18 Urine WBC (Auto) 2.0 /HPF (0.0-6.0) 05/11/21 11:18 Urine RBC (Auto) 1.0 /HPF (0.0-6.0) 05/11/21 11:18 Urine Mucus Few /HPF 05/11/21 11:18 Vancomycin Trough 25.3 ug/mL (5.0-20.0) H 05/14/21 15:20 Coronavirus (PCR) Positive (Negative) A 05/29/21 08:20 Hepatitis A IgM Ab Non-reactive (NonReactive) 05/12/21 12:30 Hep Bs Antigen Nonreactive (Negative) 05/12/21 12:30 Hep B Core IgM Ab Non-reactive (NonReactive) 05/12/21 12:30 Hepatitis C Antibody Non-reactive (NonReactive) 05/12/21 12:30 Microbiology: Microbiology 06/03/21 00:41 Tracheal Aspirate Sputum Culture - Preliminary Stenotrophomonas Maltophilia Almaraz/IV: Voiding Method Indwelling Catheter Active Medications - Current Medications Current Medications: Generic Name Dose Route Start Last Admin Trade Name Freq PRN Reason Stop Dose Admin Acetaminophen 650 mg 05/11/21 21:40 05/14/21 20:06 Acetaminophen 325 Mg Tab PO 650 mg Q4H PRN Administration Pain MILD(1-3)/Fever >100.5/WOODS Lipase/Protease/Amylase 1 each 05/22/21 16:30 Lipase 10,500/Protease 25,000/Amylase 43,750 (Units) Dr Baker FEEDTUBE PRN PRN For Clogged Feeding Tube Arformoterol Tartrate 15 mcg 05/12/21 08:00 06/06/21 08:57 Arformoterol 15 Mcg/2 Ml Nebu IH 15 mcg Q12HRT ABRAHAN Administration Ascorbic Acid 500 mg 06/02/21 22:00 06/06/21 10:30 Ascorbic Acid 500 Mg Tab PO 500 mg BID ABRAHAN Administration Budesonide 0.5 mg 05/12/21 08:00 06/06/21 08:56 Budesonide 0.5 Mg/2 Ml Nebu IH 0.5 mg Q12HRT ABRAHAN Administration Dextrose 50 ml 05/12/21 11:57 06/02/21 18:34 Dextrose 50% In Water (25gm) 50 Ml Syringe IV 50 ml Q30MIN PRN Administration Hypoglycemia Protocol Dicyclomine HCl 10 mg 05/23/21 14:00 06/06/21 18:21 Dicyclomine 10 Mg Cap PO 10 mg QID ABRAHAN Administration Fentanyl 50 mcg 06/02/21 05:20 Fentanyl 100 Mcg/2 Ml Inj IV Q10MIN PRN ANALGESIA Fondaparinux 2.5 mg 06/05/21 22:00 06/05/21 22:25 Fondaparinux 2.5 Mg/0.5 Ml Inj SUB-Q 2.5 mg QDAY@2200 ABRAHAN Administration Haloperidol Lactate 5 mg 05/19/21 15:00 06/01/21 21:04 Haloperidol Lactate 5 Mg/1 Ml Inj IV 5 mg Q8H PRN Administration Agitation Hydrocortisone Sodium Succinate 100 mg 06/04/21 14:00 06/06/21 14:35 Hydrocortisone Sod Succ 100 Mg/2 Ml Vial IV 100 mg Q8HR ABRAHAN Administration Hydrophilic Ointment 1 applic 06/02/21 17:44 Lip Therapy Vaseline TP Q2HR PRN Dry Lips NORepinephrine/NS 8 MG-250 ML 8 mg in 250 mls @ 3.75 mls/hr 06/02/21 06:00 06/05/21 01:49 Norepinephrine/Ns 8 Mg-250 Ml (Double Conc) IV 0 mcg/min TITRATE ABRAHAN 0 mls/hr Titration Protocol 2 MCG/MIN Propofol 1,000 mg in 100 mls @ 1.932 mls/hr 06/02/21 06:00 06/06/21 10:29 Diprivan 10 Mg/Ml IV 15 mcg/kg/min TITR ABRAHAN 5.796 mls/hr Administration Protocol 5 MCG/KG/MIN Fentanyl Citrate 2,000 mcg in 100 mls @ 3.22 mls/hr 06/02/21 06:00 06/06/21 17:14 Fentanyl Drip Premix IV 2 mcg/kg/hr TITR ABRAHAN 6.44 mls/hr Titration Protocol 1 MCG/KG/HR REMDESIVIR 100 mg/ Sodium 250 mls @ 500 mls/hr 06/03/21 21:00 06/05/21 22:23 Chloride IV 06/06/21 21:29 500 mls/hr Q24HR@2100 ABRAHAN Administration Insulin Human Lispro 0 unit 05/17/21 12:00 06/06/21 18:21 Insulin Lispro 100 Unit/Ml SUB-Q Not Given Q6HR [facility] Protocol Lansoprazole 30 mg 05/28/21 10:00 06/06/21 10:30 Lansoprazole 30 Mg Solutab FEEDTUBE 30 mg QDAY ABRAHAN Administration Metoclopramide HCl 10 mg 05/11/21 21:40 Metoclopramide 10 Mg/2 Ml Inj IV Q6H PRN Nausea And Vomiting Multi-Ingred Cream/Lotion/Oil/Oint 1 applic 06/02/21 17:44 Mineral Oil/Petrolatum, White Ophth Oint 3.5 Gm OU Q4HR PRN Dry Eye(s) Ondansetron HCl 4 mg 05/11/21 21:40 05/15/21 09:57 Ondansetron 4 Mg/2 Ml Inj IV 4 mg Q8H PRN Administration Nausea And Vomiting Senna/Docusate Sodium 1 tab 06/02/21 22:00 06/06/21 10:30 Sennosides/Docusate Sodium 8.6/50 Mg Tab FEEDTUBE 1 tab BID ABRAHAN Administration Simple Syrup 15 ml 05/22/21 16:30 Simple Syrup 15 Ml FEEDTUBE PRN PRN Hypoglycemia Simple Syrup 30 ml 05/22/21 16:30 Simple Syrup 15 Ml FEEDTUBE PRN PRN Hypoglycemia Sodium Bicarbonate 325 mg 05/22/21 16:30 Sodium Bicarbonate 325 Mg Tab FEEDTUBE PRN PRN For Clogged Feeding Tube Sodium Chloride 10 ml 05/11/21 22:00 06/06/21 10:31 Sodium Chloride 0.9% 10 Ml Flush Syringe IV 10 ml BID ABRAHAN Administration Sodium Chloride 10 ml 05/11/21 21:40 05/23/21 21:00 Sodium Chloride 0.9% 10 Ml Flush Syringe IV 10 ml PRN PRN Administration LINE FLUSH Sodium Chloride 50 ml 06/02/21 18:30 06/05/21 22:23 Sodium Chloride 0.9% 50 Ml Ivpb IV 06/06/21 21:01 50 ml Q24HR@2100 ABRAHAN Administration Zinc Sulfate 220 mg 06/02/21 22:00 06/06/21 10:30 Zinc Sulfate 220 Mg Cap PO 220 mg BID ABRAHAN Administration Nutrition/Malnutrition Assess - Dietary Evaluation Nutrition/Malnutrition Findings: Nutrition Notes Start: 05/13/21 09:47 Freq: Status: Active Protocol: Document 06/01/21 12:45 MARITZA (Rec: 06/01/21 12:49 [facility] [id number]) Nutrition Notes Initial or Follow up Reassessment Current Diagnosis COPD,Respiratory Failure Other Pertinent Diagnosis COVID-19 (+), Pancreatic CA, pulmonary fibrosis Current Diet TF - Glucerna 1.2 at 50ml/hr Labs/Tests Reviewed Pertinent Medications Reviewed Height 5 ft 2 in Weight 64.4 kg [place] Body Weight (kg) 50.00 BMI 25.9 Weight Status Appropriate Subjective/Other Information Pt tolerating Glucerna 1.2 at goal rate. She remains on BiPap support. Referral made to [facility] hospice. Percent of energy/protein needs met: 100% energy and pro Burn Absent Trauma Absent #2 Nutrition Diagnosis Malnutrition Diagnosis Progress(for reassessment Continues documentation) Is patient on ventilator? No Is Patient Ambulatory and/or Out of Bed No REE-([facility]-confined to bed) [phone] Calculation Used for Recommendations [facility] Additional Notes Pro needs 1-1.2g/k-77g/ day Fluid needs 1ml/kcal Nutrition Intervention Nutrition Support: Continue Glucerna 1.2 at 50ml/ hr with 80ml water flush q4h. Kcal 1,440 Protein (gm) 72 Carbohydrates (gm) 137 Fat (gm) 72 Fluid (mL) 966 Fiber (gm) 19 Goal #1 TF tolerance Goal #2 TF to meet at least 75% energy and pro needs Follow-Up By: 06/08/21 Additional Comments F/U: stable TF, resp status, wt
[2021-06-06] MEDS: FONDAPARINUX 2.5 MG/0.5 ML INJ SUB-Q SCH (21:25)
[2021-06-06] MEDS: REMDESIVIR 100 MG in SODIUM CHLORIDE 0.9% 250ML 250 ML IV SCH (21:26)
[2021-06-06] MEDS: SODIUM CHLORIDE 0.9% 50 ML IVPB IV SCH (21:26)
[2021-06-07] MEDS: FREE WATER PO SCH ×6 (02:40→21:06)
[2021-06-07 05:42] LABS: Blood Urea Nitrogen 15 mg/dL (7-17); Calcium 8.5 mg/dL (8.4-10.2); Hemolysis Index 2
[2021-06-07] MEDS: INSULIN LISPRO 100 UNIT/ML SUB-Q SCH ×3 (05:46→18:50)
[2021-06-07] MEDS: HYDROCORTISONE SOD SUCC 100 MG/2 ML VIAL IV SCH ×3 (05:46→21:02)
[2021-06-07 05:50] LABS: BUN/Creatinine Ratio 50
[2021-06-07 06:01] LABS: Hematocrit 32.8 % (30.3-42.9); Hemoglobin 10.5 gm/dl (10.1-14.3); Mean Corpuscular HGB Conc 32 % (30-34); Mean Corpuscular Volume 99 fl (79-97); Platelet Count 133 K/mm3 (140-440); Red Blood Count 3.31 M/mm3 (3.65-5.03)
[2021-06-07 06:23] LABS: Red Cell Distribution Width 23.9 % (13.2-15.2)
[2021-06-07] MEDS: ARFORMOTEROL 15 MCG/2 ML NEBU IH SCH ×3 (10:44→20:35)
[2021-06-07] MEDS: BUDESONIDE 0.5 MG/2 ML NEBU IH SCH ×3 (10:44→20:35)
[2021-06-07] MEDS: SENNOSIDES/DOCUSATE SODIUM 8.6/50 MG TAB FEEDTUBE SCH ×2 (11:06→21:02)
[2021-06-07] MEDS: LANSOPRAZOLE 30 MG SOLUTAB FEEDTUBE SCH (11:06)
[2021-06-07] MEDS: ZINC SULFATE 220 MG CAP PO SCH ×2 (11:06→21:02)
[2021-06-07] MEDS: ASCORBIC ACID 500 MG TAB PO SCH ×2 (11:06→21:07)
[2021-06-07] MEDS: DICYCLOMINE 10 MG CAP PO SCH ×4 (11:06→21:02)
[2021-06-07 11:18] LABS: ABG Base Excess 10.3 mmol/L (-2.0-3.0); ABG HCO3 35.7 mmol/L (20.0-26.0); ABG Methemoglobin 0.5 % (0.0-1.5); ABG Oxygen Saturation 97.5 % (95.0-99.0); ABG PCO2 55.5 mm Hg; ABG PH 7.426 pH Units (7.350-7.450); ABG PO2 66.6 mm Hg (80.0-90.0)
--- NOTE | 2021-06-07 12:35 | Progress Note ---
Assessment and Plan Septic shock possible hepatobiliary source Lactic acidosis h/o pulmonary fibrosis, Acute on chronic respiratory failure on home O2 of 2 L nasal cannula Transaminitis, biliary dilation, r/o cholangitis Hyperchloremia, metabolic acidosis, hypokalemia Hypoglycemia h/o pancreatic head cancer- chemoradiation therapy h/o Hypertension Thrombocytopenia - follow am CXR - follow ABG - continue current vent settings - follow upper extremity dopplers - follow HIT assay - continue Aritra for DVT prophylaxis - continue care as below otherwise; - prn diuresis (follow repeat BMP) - continue daily SAT and SBT assessment as tolerated - sedation prn for target RASS 0 to -1 - VAP bundle addressed - continue lung protective strategies - continue bronchodilators with pulmonary hygiene per RT - wean per pulmonary driven protocols otherwise - prn vasopressors for target MAP > 65 mmHg - MRCP pending as she remains tenuous from a respiratory standpoint - continue anti-infective's; de-escalate per ID recommendations - accuchecks with glycemic control per SSI (While critically ill target blood glucose of 140-180 mg/dL; avoid hypoglycemia) - wean supplemental oxygen for target O2 sat's > 90% acutely - aspiration precautions - avoid nephrotoxins, renally dose all medications - prn analgesia per pain score - Maintenance of sleep-wake cycle, avoid delirium - G.I. & VTE prophylaxis - PT/OT/ROM exercises - mobility protocols for pressure ulcer prophylaxis - Monitor hemodynamics closely - continue other care per attending / other consultants - discharge planning ongoing concurrently COVID SPECIFIC INTERVENTIONS - Remdesivir as per ID/Pulmonary developed protocols (ordered) - continue systemic steroids for severe COVID-19 infection empirically (on Solucortef) - follow repeat COVID tests results - zinc and vitamin C supplementation (ordered) - Monitor inflammatory markers per facility protocol - ferritin, Ddimer, CRP - therapeutic anticoagulation per system Protocol based on d-dimer and clinical considerations (DVT prophylaxis) - Contact and airborne isolation .... Re-evaluate in am & prn CONDITION: CRITICAL PROGNOSIS: GUARDED CODE STATUS: FULL CODE The high probability of a clinically significant, sudden or life-threatening deterioration of the [respiratory, cardiovascular, GI & neurologic] system(s) required my full and direct attention, intervention and personal management. The aggregate critical care time was [35] minutes without overlap. Time includes spent on; [x] Data Review and interpretation [x] Patient assessment and monitoring of vital signs [x] Documentation [x] Medication orders and management Subjective Date of service: 06/07/21 Principal diagnosis: Septic shock; Pulm fibrosis; Hypoxemic resp failure; COVID- 19 infxn Interval history: Patient is seen today for: Septic shock; pulmonary fibrosis; Acute on chronic hypoxemic respiratory failure; Transaminitis; h/o pancreatic head cancer; HTN Seen and examined at bedside; 24hour events reviewed; nursing and respiratory care staff consulted; no adverse overnight events reported to me; resting in bed; remains on MVS; ventilation is better but hypoxemia not so; still with ARDS; reviewed Oncology notes and she is a IIB pancreatic CA unfortunately not tolerating treatment well and not a surgical candidate re: Pulmonary Fibrosis; Objective Vital Signs - 12hr 06/07/21 06/07/21 06/07/21 00:45 01:00 01:15 Temperature Pulse Rate 85 100 H 101 H Pulse Rate [ Bilateral Throughout] Pulse Rate [ From Monitor] Respiratory 23 26 H 28 H Rate Respiratory Rate [Bilateral Throughout] Blood Pressure 119/65 110/70 118/77 O2 Sat by Pulse 92 90 94 Oximetry 06/07/21 06/07/21 06/07/21 01:30 01:45 02:00 Temperature Pulse Rate 83 101 H 98 H Pulse Rate [ Bilateral Throughout] Pulse Rate [ From Monitor] Respiratory 19 29 H 24 Rate Respiratory Rate [Bilateral Throughout] Blood Pressure 109/63 124/76 112/72 O2 Sat by Pulse 93 94 93 Oximetry 06/07/21 06/07/21 06/07/21 02:15 02:30 02:45 Temperature Pulse Rate 96 H 94 H 96 H Pulse Rate [ Bilateral Throughout] Pulse Rate [ From Monitor] Respiratory 24 21 20 Rate Respiratory Rate [Bilateral Throughout] Blood Pressure 117/75 100/71 99/70 O2 Sat by Pulse 92 96 95 Oximetry 06/07/21 06/07/21 06/07/21 03:00 03:15 03:30 Temperature Pulse Rate 86 88 88 Pulse Rate [ Bilateral Throughout] Pulse Rate [ From Monitor] Respiratory 19 22 24 Rate Respiratory Rate [Bilateral Throughout] Blood Pressure 102/70 113/65 113/77 O2 Sat by Pulse 94 94 90 Oximetry 06/07/21 06/07/21 06/07/21 03:45 03:59 04:00 Temperature 97.8 F Pulse Rate 85 99 H 98 H Pulse Rate [ Bilateral Throughout] Pulse Rate [ 90 From Monitor] Respiratory 22 24 Rate Respiratory Rate [Bilateral Throughout] Blood Pressure 110/69 101/68 O2 Sat by Pulse 95 96 88 Oximetry 06/07/21 06/07/21 06/07/21 04:15 04:30 04:45 Temperature Pulse Rate 102 H 103 H 97 H Pulse Rate [ Bilateral Throughout] Pulse Rate [ From Monitor] Respiratory 27 H 24 22 Rate Respiratory Rate [Bilateral Throughout] Blood Pressure 91/67 113/77 110/74 O2 Sat by Pulse 93 94 94 Oximetry 06/07/21 06/07/21 06/07/21 05:00 05:15 05:30 Temperature Pulse Rate 97 H 96 H 109 H Pulse Rate [ Bilateral Throughout] Pulse Rate [ From Monitor] Respiratory 26 H 19 26 H Rate Respiratory Rate [Bilateral Throughout] Blood Pressure 119/74 100/71 118/73 O2 Sat by Pulse 94 95 93 Oximetry 06/07/21 06/07/21 06/07/21 05:45 06:00 06:15 Temperature Pulse Rate 99 H 94 H 96 H Pulse Rate [ Bilateral Throughout] Pulse Rate [ From Monitor] Respiratory 22 Rate Respiratory Rate [Bilateral Throughout] Blood Pressure 119/71 108/71 116/68 O2 Sat by Pulse 95 95 95 Oximetry 06/07/21 06/07/21 06/07/21 06:30 06:45 07:00 Temperature Pulse Rate 96 H 97 H 99 H Pulse Rate [ Bilateral Throughout] Pulse Rate [ From Monitor] Respiratory 21 21 15 Rate Respiratory Rate [Bilateral Throughout] Blood Pressure 106/64 99/66 101/61 O2 Sat by Pulse 93 94 93 Oximetry 06/07/21 06/07/21 06/07/21 07:15 07:30 07:45 Temperature Pulse Rate 98 H 100 H 98 H Pulse Rate [ Bilateral Throughout] Pulse Rate [ From Monitor] Respiratory 22 18 22 Rate Respiratory Rate [Bilateral Throughout] Blood Pressure 85/57 102/65 91/51 O2 Sat by Pulse 95 96 96 Oximetry 06/07/21 06/07/21 06/07/21 08:00 08:15 08:30 Temperature 98.3 F Pulse Rate 98 H 97 H 95 H Pulse Rate [ Bilateral Throughout] Pulse Rate [ From Monitor] Respiratory 25 H 22 18 Rate Respiratory Rate [Bilateral Throughout] Blood Pressure 95/47 97/50 101/61 O2 Sat by Pulse 94 96 96 Oximetry 06/07/21 06/07/21 06/07/21 08:45 09:00 09:15 Temperature Pulse Rate 102 H 95 H 96 H Pulse Rate [ Bilateral Throughout] Pulse Rate [ From Monitor] Respiratory 24 19 20 Rate Respiratory Rate [Bilateral Throughout] Blood Pressure 112/56 106/54 117/54 O2 Sat by Pulse 92 95 92 Oximetry 06/07/21 06/07/21 06/07/21 09:30 09:45 10:00 Temperature Pulse Rate 90 93 H 93 H Pulse Rate [ Bilateral Throughout] Pulse Rate [ From Monitor] Respiratory 18 20 20 Rate Respiratory Rate [Bilateral Throughout] Blood Pressure 93/55 103/62 103/53 O2 Sat by Pulse 94 93 92 Oximetry 06/07/21 06/07/21 06/07/21 10:15 10:31 10:45 Temperature Pulse Rate 99 H 99 H 98 H Pulse Rate [ Bilateral Throughout] Pulse Rate [ From Monitor] Respiratory 24 27 H 26 H Rate Respiratory Rate [Bilateral Throughout] Blood Pressure 119/62 106/64 120/52 O2 Sat by Pulse 93 94 93 Oximetry 06/07/21 06/07/21 06/07/21 11:00 11:37 11:43 Temperature Pulse Rate 101 H 94 H Pulse Rate [ 102 H Bilateral Throughout] Pulse Rate [ From Monitor] Respiratory 27 H Rate Respiratory 31 H Rate [Bilateral Throughout] Blood Pressure 122/57 110/62 O2 Sat by Pulse 94 95 Oximetry Constitutional: no acute distress, other (mildly increased respiratory effort at rest on MVS) Eyes: non-icteric ENT: oropharynx moist, other (ETT 24 cm JOSH) Neck: supple, no lymphadenopathy, no JVD Effort: mildly labored Ascultation: Bilateral: diminished breath sounds, rales (inspiratory, bases) Percussion: Bilateral: not dull Cardiovascular: regular rate and rhythm, other (S1,S2) Gastrointestinal: normoactive bowel sounds, soft, non-tender, non-distended (protuberant) Integumentary: other (SQ emphysema to upper chest) Extremities: no cyanosis, pulses normal, edema (1+ edema), other (right femoral CVL) Neurologic: normal mental status, non-focal exam (grossly), pupils equal and round, other (sedated) Psychiatric: anxious, depressed CBC and BMP: 06/08/21 04:47 06/08/21 04:47 ABG, PT/INR, D-dimer: ABG ABG pH 7.426 pH Units (7.350-7.450) 06/07/21 10:50 POC ABG pCO2 59.5 mmHg (32.0-48.0) H 06/06/21 21:00 ABG pCO2 55.5 mm Hg 06/07/21 10:50 POC ABG pO2 52.1 mmHg (83-108) L 06/06/21 21:00 ABG pO2 66.6 mm Hg (80.0-90.0) L 06/07/21 10:50 POC ABG HCO3 33.2 06/06/21 21:00 ABG O2 Saturation 97.5 % (95.0-99.0) 06/07/21 10:50 PT/INR, D-dimer PT 15.9 Sec. (12.2-14.9) H 06/05/21 06:00 INR 1.15 (0.87-1.13) H 06/05/21 06:00 D-Dimer 1938.43 ng/mlDDU (0-234) H 06/07/21 04:36 Abnormal lab findings: Abnormal Labs 05/11/21 05/11/21 05/11/21 05:43 05:43 05:43 WBC RBC Hgb Hct MCV 98 H MCH RDW 17.7 H Plt Count Lymph % (Auto) 10.8 L Eos % (Auto) Lymph # (Auto) 0.6 L Eos # (Auto) Seg Neutrophils % 84.1 H Seg Neuts % (Manual) Lymphocytes % (Manual) Seg Neutrophils # Man Lymphocytes # (Manual) PT 16.0 H INR 1.16 H APTT D-Dimer ABG pH POC ABG pCO2 POC ABG pO2 ABG pO2 ABG HCO3 ABG O2 Saturation ABG Base Excess ABG Hemoglobin ABG Oxyhemoglobin ABG Sodium ABG Potassium ABG Chloride ABG Glucose Oxyhemoglobin Carboxyhemoglobin Sodium Potassium Chloride Carbon Dioxide 21 L BUN 4 L Creatinine 0.4 L Glucose POC Glucose Lactic Acid Calcium 8.3 L Phosphorus Magnesium Ferritin Total Bilirubin 2.10 H Direct Bilirubin 1.4 H AST 335 H ALT 57 H Alkaline Phosphatase 339 H Lactate Dehydrogenase C-Reactive Protein NT-Pro-B Natriuret Pep Total Protein Albumin 2.4 L Lipase 3 L Arterial Blood Glucose Arterial Blood Ionized Calcium Ur Specific [place] Vancomycin Trough Coronavirus (PCR) 05/11/21 05/11/21 05/12/21 11:18 12:28 04:08 WBC RBC Hgb Hct MCV MCH RDW Plt Count Lymph % (Auto) Eos % (Auto) Lymph # (Auto) Eos # (Auto) Seg Neutrophils % Seg Neuts % (Manual) Lymphocytes % (Manual) Seg Neutrophils # Man Lymphocytes # (Manual) PT INR APTT D-Dimer ABG pH POC ABG pCO2 POC ABG pO2 ABG pO2 ABG HCO3 ABG O2 Saturation ABG Base Excess ABG Hemoglobin ABG Oxyhemoglobin ABG Sodium ABG Potassium ABG Chloride ABG Glucose Oxyhemoglobin Carboxyhemoglobin Sodium Potassium Chloride Carbon Dioxide BUN Creatinine Glucose POC Glucose Lactic Acid 4.20 H* 4.50 H* Calcium Phosphorus Magnesium Ferritin Total Bilirubin Direct Bilirubin AST ALT Alkaline Phosphatase Lactate Dehydrogenase C-Reactive Protein NT-Pro-B Natriuret Pep Total Protein Albumin Lipase Arterial Blood Glucose Arterial Blood Ionized Calcium Ur Specific [place] 1.035 H Vancomycin Trough Coronavirus (PCR) 05/12/21 05/12/21 05/12/21 04:08 04:08 09:47 WBC 22.8 H RBC 3.39 L Hgb Hct MCV 98 H MCH RDW 17.7 H Plt Count Lymph % (Auto) Eos % (Auto) Lymph # (Auto) Eos # (Auto) Seg Neutrophils % Seg Neuts % (Manual) 85.5 H Lymphocytes % (Manual) 2.0 L Seg Neutrophils # Man 19.5 H Lymphocytes # (Manual) 0.5 L PT INR APTT D-Dimer ABG pH POC ABG pCO2 POC ABG pO2 ABG pO2 ABG HCO3 ABG O2 Saturation ABG Base Excess ABG Hemoglobin ABG Oxyhemoglobin ABG Sodium ABG Potassium ABG Chloride ABG Glucose Oxyhemoglobin Carboxyhemoglobin Sodium Potassium 3.3 L Chloride 108.9 H Carbon Dioxide 17 L BUN 4 L Creatinine 0.5 L Glucose 106 H POC Glucose Lactic Acid 2.60 H* Calcium 6.4 L D Phosphorus Magnesium Ferritin Total Bilirubin 2.10 H Direct Bilirubin AST 156 H ALT 61 H Alkaline Phosphatase 317 H Lactate Dehydrogenase C-Reactive Protein NT-Pro-B Natriuret Pep Total Protein 5.4 L D Albumin 1.8 L Lipase Arterial Blood Glucose Arterial Blood Ionized Calcium Ur Specific [place] Vancomycin Trough Coronavirus (PCR) 05/12/21 05/12/21 05/12/21 11:47 12:30 12:36 WBC RBC Hgb Hct MCV MCH RDW Plt Count Lymph % (Auto) Eos % (Auto) Lymph # (Auto) Eos # (Auto) Seg Neutrophils % Seg Neuts % (Manual) Lymphocytes % (Manual) Seg Neutrophils # Man Lymphocytes # (Manual) PT INR APTT D-Dimer ABG pH POC ABG pCO2 POC ABG pO2 ABG pO2 ABG HCO3 ABG O2 Saturation ABG Base Excess ABG Hemoglobin ABG Oxyhemoglobin ABG Sodium ABG Potassium ABG Chloride ABG Glucose Oxyhemoglobin Carboxyhemoglobin Sodium Potassium Chloride Carbon Dioxide BUN Creatinine Glucose POC Glucose 59 L 120 H Lactic Acid 2.50 H* Calcium Phosphorus Magnesium Ferritin Total Bilirubin Direct Bilirubin AST ALT Alkaline Phosphatase Lactate Dehydrogenase C-Reactive Protein NT-Pro-B Natriuret Pep Total Protein Albumin Lipase Arterial Blood Glucose Arterial Blood Ionized Calcium Ur Specific [place] Vancomycin Trough Coronavirus (PCR) 05/12/21 05/12/21 05/13/21 23:45 Unknown 04:00 WBC 19.8 H RBC 3.52 L Hgb Hct MCV 98 H MCH RDW 18.5 H Plt Count Lymph % (Auto) Eos % (Auto) Lymph # (Auto) Eos # (Auto) Seg Neutrophils % Seg Neuts % (Manual) Lymphocytes % (Manual) Seg Neutrophils # Man Lymphocytes # (Manual) PT INR APTT D-Dimer ABG pH POC ABG pCO2 POC ABG pO2 ABG pO2 ABG HCO3 ABG O2 Saturation ABG Base Excess ABG Hemoglobin ABG Oxyhemoglobin ABG Sodium ABG Potassium ABG Chloride ABG Glucose Oxyhemoglobin Carboxyhemoglobin Sodium Potassium Chloride Carbon Dioxide BUN Creatinine Glucose POC Glucose 119 H Lactic Acid 3.30 H* Calcium Phosphorus Magnesium Ferritin Total Bilirubin Direct Bilirubin AST ALT Alkaline Phosphatase Lactate Dehydrogenase C-Reactive Protein NT-Pro-B Natriuret Pep Total Protein Albumin Lipase Arterial Blood Glucose Arterial Blood Ionized Calcium Ur Specific [place] Vancomycin Trough Coronavirus (PCR) 05/13/21 05/13/21 05/13/21 04:00 05:42 12:19 WBC RBC Hgb Hct MCV MCH RDW Plt Count Lymph % (Auto) Eos % (Auto) Lymph # (Auto) Eos # (Auto) Seg Neutrophils % Seg Neuts % (Manual) Lymphocytes % (Manual) Seg Neutrophils # Man Lymphocytes # (Manual) PT INR APTT D-Dimer ABG pH POC ABG pCO2 POC ABG pO2 ABG pO2 ABG HCO3 ABG O2 Saturation ABG Base Excess ABG Hemoglobin ABG Oxyhemoglobin ABG Sodium ABG Potassium ABG Chloride ABG Glucose Oxyhemoglobin Carboxyhemoglobin Sodium Potassium 3.4 L Chloride 107.1 H Carbon Dioxide 19 L BUN 4 L Creatinine 0.4 L Glucose 157 H POC Glucose 143 H 110 H Lactic Acid Calcium 7.4 L D Phosphorus 1.60 L Magnesium 1.50 L Ferritin Total Bilirubin 1.40 H Direct Bilirubin AST 95 H ALT Alkaline Phosphatase 328 H Lactate Dehydrogenase C-Reactive Protein NT-Pro-B Natriuret Pep Total Protein 5.5 L Albumin 1.6 L Lipase Arterial Blood Glucose Arterial Blood Ionized Calcium Ur Specific [place] Vancomycin Trough Coronavirus (PCR) 05/14/21 05/14/21 05/14/21 06:15 06:15 10:25 WBC 11.7 H RBC 3.41 L Hgb Hct MCV 98 H MCH RDW 18.6 H Plt Count Lymph % (Auto) Eos % (Auto) Lymph # (Auto) Eos # (Auto) Seg Neutrophils % Seg Neuts % (Manual) Lymphocytes % (Manual) Seg Neutrophils # Man Lymphocytes # (Manual) PT INR APTT D-Dimer ABG pH POC ABG pCO2 POC ABG pO2 ABG pO2 76.0 L ABG HCO3 27.2 H ABG O2 Saturation ABG Base Excess ABG Hemoglobin 11.5 L ABG Oxyhemoglobin ABG Sodium ABG Potassium ABG Chloride ABG Glucose Oxyhemoglobin 94.4 L Carboxyhemoglobin Sodium Potassium 3.2 L Chloride Carbon Dioxide BUN 6 L Creatinine 0.5 L Glucose 103 H POC Glucose Lactic Acid Calcium 7.3 L Phosphorus 1.70 L Magnesium Ferritin Total Bilirubin Direct Bilirubin AST 66 H ALT Alkaline Phosphatase 295 H Lactate Dehydrogenase C-Reactive Protein NT-Pro-B Natriuret Pep Total Protein 5.3 L Albumin 1.8 L Lipase Arterial Blood Glucose Arterial Blood Ionized Calcium Ur Specific [place] Vancomycin Trough Coronavirus (PCR) 05/14/21 05/14/21 05/14/21 15:20 15:20 17:26 WBC RBC Hgb Hct MCV MCH RDW Plt Count Lymph % (Auto) Eos % (Auto) Lymph # (Auto) Eos # (Auto) Seg Neutrophils % Seg Neuts % (Manual) Lymphocytes % (Manual) Seg Neutrophils # Man Lymphocytes # (Manual) PT INR APTT D-Dimer ABG pH POC ABG pCO2 POC ABG pO2 ABG pO2 ABG HCO3 ABG O2 Saturation ABG Base Excess ABG Hemoglobin ABG Oxyhemoglobin ABG Sodium ABG Potassium ABG Chloride ABG Glucose Oxyhemoglobin Carboxyhemoglobin Sodium 146 H D Potassium Chloride 108.4 H Carbon Dioxide BUN 5 L Creatinine 0.5 L Glucose POC Glucose 63 L Lactic Acid Calcium 7.6 L Phosphorus Magnesium Ferritin Total Bilirubin Direct Bilirubin AST ALT Alkaline Phosphatase Lactate Dehydrogenase C-Reactive Protein NT-Pro-B Natriuret Pep Total Protein Albumin Lipase Arterial Blood Glucose Arterial Blood Ionized Calcium Ur Specific [place] Vancomycin Trough 25.3 H Coronavirus (PCR) 05/14/21 05/15/21 05/15/21 21:27 00:03 00:29 WBC RBC Hgb Hct MCV MCH RDW Plt Count Lymph % (Auto) Eos % (Auto) Lymph # (Auto) Eos # (Auto) Seg Neutrophils % Seg Neuts % (Manual) Lymphocytes % (Manual) Seg Neutrophils # Man Lymphocytes # (Manual) PT INR APTT D-Dimer ABG pH POC ABG pCO2 POC ABG pO2 ABG pO2 ABG HCO3 ABG O2 Saturation ABG Base Excess ABG Hemoglobin ABG Oxyhemoglobin ABG Sodium ABG Potassium ABG Chloride ABG Glucose Oxyhemoglobin Carboxyhemoglobin Sodium Potassium Chloride Carbon Dioxide BUN Creatinine Glucose POC Glucose 52 L 54 L 129 H Lactic Acid Calcium Phosphorus Magnesium Ferritin Total Bilirubin Direct Bilirubin AST ALT Alkaline Phosphatase Lactate Dehydrogenase C-Reactive Protein NT-Pro-B Natriuret Pep Total Protein Albumin Lipase Arterial Blood Glucose Arterial Blood Ionized Calcium Ur Specific [place] Vancomycin Trough Coronavirus (PCR) 05/15/21 05/15/21 05/15/21 04:45 04:45 11:58 WBC RBC 3.24 L Hgb Hct MCV 98 H MCH RDW 18.5 H Plt Count 122 L Lymph % (Auto) 7.4 L Eos % (Auto) Lymph # (Auto) 0.6 L Eos # (Auto) Seg Neutrophils % 81.2 H Seg Neuts % (Manual) Lymphocytes % (Manual) Seg Neutrophils # Man Lymphocytes # (Manual) PT INR APTT D-Dimer ABG pH POC ABG pCO2 POC ABG pO2 ABG pO2 ABG HCO3 ABG O2 Saturation ABG Base Excess ABG Hemoglobin ABG Oxyhemoglobin ABG Sodium ABG Potassium ABG Chloride ABG Glucose Oxyhemoglobin Carboxyhemoglobin Sodium 146 H Potassium 3.1 L Chloride 108.8 H Carbon Dioxide BUN 6 L Creatinine Glucose 121 H POC Glucose 68 L Lactic Acid Calcium 7.5 L Phosphorus 2.30 L D Magnesium Ferritin Total Bilirubin 1.90 H Direct Bilirubin AST 55 H ALT Alkaline Phosphatase 231 H Lactate Dehydrogenase C-Reactive Protein NT-Pro-B Natriuret Pep Total Protein 5.4 L Albumin 1.5 L Lipase Arterial Blood Glucose Arterial Blood Ionized Calcium Ur Specific [place] Vancomycin Trough Coronavirus (PCR) 05/15/21 05/16/21 05/16/21 13:50 00:06 00:43 WBC RBC Hgb Hct MCV MCH RDW Plt Count Lymph % (Auto) Eos % (Auto) Lymph # (Auto) Eos # (Auto) Seg Neutrophils % Seg Neuts % (Manual) Lymphocytes % (Manual) Seg Neutrophils # Man Lymphocytes # (Manual) PT INR APTT D-Dimer ABG pH POC ABG pCO2 POC ABG pO2 ABG pO2 ABG HCO3 ABG O2 Saturation ABG Base Excess ABG Hemoglobin ABG Oxyhemoglobin ABG Sodium ABG Potassium ABG Chloride ABG Glucose Oxyhemoglobin Carboxyhemoglobin Sodium Potassium Chloride Carbon Dioxide BUN Creatinine Glucose POC Glucose 147 H 54 L 116 H Lactic Acid Calcium Phosphorus Magnesium Ferritin Total Bilirubin Direct Bilirubin AST ALT Alkaline Phosphatase Lactate Dehydrogenase C-Reactive Protein NT-Pro-B Natriuret Pep Total Protein Albumin Lipase Arterial Blood Glucose Arterial Blood Ionized Calcium Ur Specific [place] Vancomycin Trough Coronavirus (PCR) 05/16/21 05/16/21 05/16/21 04:31 04:31 05:58 WBC RBC 3.12 L Hgb 9.8 L Hct MCV 98 H MCH RDW 18.2 H Plt Count 115 L Lymph % (Auto) Eos % (Auto) Lymph # (Auto) Eos # (Auto) Seg Neutrophils % Seg Neuts % (Manual) Lymphocytes % (Manual) Seg Neutrophils # Man Lymphocytes # (Manual) PT INR APTT D-Dimer ABG pH POC ABG pCO2 POC ABG pO2 ABG pO2 ABG HCO3 ABG O2 Saturation ABG Base Excess ABG Hemoglobin ABG Oxyhemoglobin ABG Sodium ABG Potassium ABG Chloride ABG Glucose Oxyhemoglobin Carboxyhemoglobin Sodium 146 H Potassium 3.2 L Chloride Carbon Dioxide BUN 5 L Creatinine 0.5 L Glucose POC Glucose 61 L Lactic Acid Calcium 7.2 L Phosphorus 2.30 L Magnesium Ferritin Total Bilirubin Direct Bilirubin AST ALT Alkaline Phosphatase Lactate Dehydrogenase C-Reactive Protein NT-Pro-B Natriuret Pep Total Protein Albumin Lipase Arterial Blood Glucose Arterial Blood Ionized Calcium Ur Specific [place] Vancomycin Trough Coronavirus (PCR) 05/16/21 05/16/21 05/17/21 08:11 23:42 04:15 WBC RBC Hgb Hct MCV MCH RDW Plt Count Lymph % (Auto) Eos % (Auto) Lymph # (Auto) Eos # (Auto) Seg Neutrophils % Seg Neuts % (Manual) Lymphocytes % (Manual) Seg Neutrophils # Man Lymphocytes # (Manual) PT INR APTT D-Dimer ABG pH POC ABG pCO2 POC ABG pO2 ABG pO2 ABG HCO3 ABG O2 Saturation ABG Base Excess ABG Hemoglobin ABG Oxyhemoglobin ABG Sodium ABG Potassium ABG Chloride ABG Glucose Oxyhemoglobin Carboxyhemoglobin Sodium Potassium Chloride Carbon Dioxide BUN Creatinine Glucose POC Glucose 58 L 200 H Lactic Acid Calcium Phosphorus Magnesium Ferritin Total Bilirubin 1.70 H Direct Bilirubin 1.5 H AST 43 H ALT Alkaline Phosphatase 196 H Lactate Dehydrogenase C-Reactive Protein NT-Pro-B Natriuret Pep Total Protein 5.4 L Albumin 1.6 L Lipase Arterial Blood Glucose Arterial Blood Ionized Calcium Ur Specific [place] Vancomycin Trough Coronavirus (PCR) 05/17/21 05/17/21 05/17/21 04:15 04:15 05:07 WBC RBC 3.26 L Hgb Hct MCV 98 H MCH RDW 18.9 H Plt Count 114 L Lymph % (Auto) Eos % (Auto) Lymph # (Auto) Eos # (Auto) Seg Neutrophils % Seg Neuts % (Manual) Lymphocytes % (Manual) Seg Neutrophils # Man Lymphocytes # (Manual) PT INR APTT D-Dimer ABG pH POC ABG pCO2 POC ABG pO2 ABG pO2 ABG HCO3 ABG O2 Saturation ABG Base Excess ABG Hemoglobin ABG Oxyhemoglobin ABG Sodium ABG Potassium ABG Chloride ABG Glucose Oxyhemoglobin Carboxyhemoglobin Sodium Potassium Chloride Carbon Dioxide 35 H BUN 5 L Creatinine Glucose 274 H POC Glucose 249 H Lactic Acid Calcium 7.7 L Phosphorus 1.50 L D Magnesium Ferritin Total Bilirubin Direct Bilirubin AST ALT Alkaline Phosphatase Lactate Dehydrogenase C-Reactive Protein NT-Pro-B Natriuret Pep Total Protein Albumin Lipase Arterial Blood Glucose Arterial Blood Ionized Calcium Ur Specific [place] Vancomycin Trough Coronavirus (PCR) 1205/17/21 05/17/21 11:56 16:29 23:37 WBC RBC Hgb Hct MCV MCH RDW Plt Count Lymph % (Auto) Eos % (Auto) Lymph # (Auto) Eos # (Auto) Seg Neutrophils % Seg Neuts % (Manual) Lymphocytes % (Manual) Seg Neutrophils # Man Lymphocytes # (Manual) PT INR APTT D-Dimer ABG pH POC ABG pCO2 POC ABG pO2 ABG pO2 ABG HCO3 ABG O2 Saturation ABG Base Excess ABG Hemoglobin ABG Oxyhemoglobin ABG Sodium ABG Potassium ABG Chloride ABG Glucose Oxyhemoglobin Carboxyhemoglobin Sodium Potassium Chloride Carbon Dioxide BUN Creatinine Glucose POC Glucose 176 H 219 H 150 H Lactic Acid Calcium Phosphorus Magnesium Ferritin Total Bilirubin Direct Bilirubin AST ALT Alkaline Phosphatase Lactate Dehydrogenase C-Reactive Protein NT-Pro-B Natriuret Pep Total Protein Albumin Lipase Arterial Blood Glucose Arterial Blood Ionized Calcium Ur Specific [place] Vancomycin Trough Coronavirus (PCR) 05/18/21 05/18/21 05/18/21 04:00 05:22 09:00 WBC RBC 3.34 L Hgb Hct MCV MCH RDW 18.8 H Plt Count Lymph % (Auto) Eos % (Auto) Lymph # (Auto) Eos # (Auto) Seg Neutrophils % Seg Neuts % (Manual) Lymphocytes % (Manual) Seg Neutrophils # Man Lymphocytes # (Manual) PT INR APTT D-Dimer ABG pH POC ABG pCO2 POC ABG pO2 ABG pO2 ABG HCO3 ABG O2 Saturation ABG Base Excess ABG Hemoglobin ABG Oxyhemoglobin ABG Sodium ABG Potassium ABG Chloride ABG Glucose Oxyhemoglobin Carboxyhemoglobin Sodium Potassium 5.4 H D Chloride 97.5 L Carbon Dioxide 33 H BUN Creatinine 0.4 L Glucose 461 H POC Glucose 181 H Lactic Acid Calcium 7.2 L Phosphorus 5.00 H D Magnesium Ferritin Total Bilirubin Direct Bilirubin AST ALT Alkaline Phosphatase Lactate Dehydrogenase C-Reactive Protein NT-Pro-B Natriuret Pep Total Protein Albumin Lipase Arterial Blood Glucose Arterial Blood Ionized Calcium Ur Specific [place] Vancomycin Trough Coronavirus (PCR) 05/18/21 05/18/21 05/18/21 11:16 12:50 16:29 WBC RBC Hgb Hct MCV MCH RDW Plt Count Lymph % (Auto) Eos % (Auto) Lymph # (Auto) Eos # (Auto) Seg Neutrophils % Seg Neuts % (Manual) Lymphocytes % (Manual) Seg Neutrophils # Man Lymphocytes # (Manual) PT INR APTT D-Dimer ABG pH POC ABG pCO2 POC ABG pO2 ABG pO2 ABG HCO3 ABG O2 Saturation ABG Base Excess ABG Hemoglobin ABG Oxyhemoglobin ABG Sodium ABG Potassium ABG Chloride ABG Glucose Oxyhemoglobin Carboxyhemoglobin Sodium Potassium 3.4 L D Chloride Carbon Dioxide 36 H BUN 19 H Creatinine 0.4 L Glucose 231 H POC Glucose 168 H 196 H Lactic Acid Calcium 7.5 L Phosphorus 1.80 L D Magnesium Ferritin Total Bilirubin Direct Bilirubin AST ALT Alkaline Phosphatase Lactate Dehydrogenase C-Reactive Protein NT-Pro-B Natriuret Pep Total Protein Albumin Lipase Arterial Blood Glucose Arterial Blood Ionized Calcium Ur Specific [place] Vancomycin Trough Coronavirus (PCR) 05/19/21 05/19/21 05/19/21 00:05 04:08 05:07 WBC RBC Hgb Hct MCV MCH RDW Plt Count Lymph % (Auto) Eos % (Auto) Lymph # (Auto) Eos # (Auto) Seg Neutrophils % Seg Neuts % (Manual) Lymphocytes % (Manual) Seg Neutrophils # Man Lymphocytes # (Manual) PT INR APTT D-Dimer ABG pH POC ABG pCO2 POC ABG pO2 ABG pO2 ABG HCO3 ABG O2 Saturation ABG Base Excess ABG Hemoglobin ABG Oxyhemoglobin ABG Sodium ABG Potassium ABG Chloride ABG Glucose Oxyhemoglobin Carboxyhemoglobin Sodium 146 H Potassium Chloride Carbon Dioxide 35 H BUN 25 H Creatinine 0.4 L Glucose 218 H POC Glucose 164 H 203 H Lactic Acid Calcium 7.2 L Phosphorus Magnesium Ferritin Total Bilirubin Direct Bilirubin AST ALT Alkaline Phosphatase Lactate Dehydrogenase C-Reactive Protein NT-Pro-B Natriuret Pep Total Protein Albumin Lipase Arterial Blood Glucose Arterial Blood Ionized Calcium Ur Specific [place] Vancomycin Trough Coronavirus (PCR) 05/19/21 05/19/21 05/19/21 12:16 14:14 17:11 WBC RBC Hgb Hct MCV MCH RDW Plt Count Lymph % (Auto) Eos % (Auto) Lymph # (Auto) Eos # (Auto) Seg Neutrophils % Seg Neuts % (Manual) Lymphocytes % (Manual) Seg Neutrophils # Man Lymphocytes # (Manual) PT INR APTT D-Dimer ABG pH 7.482 H POC ABG pCO2 POC ABG pO2 ABG pO2 111.7 H ABG HCO3 31.4 H ABG O2 Saturation ABG Base Excess 7.2 H ABG Hemoglobin 11.1 L ABG Oxyhemoglobin ABG Sodium ABG Potassium ABG Chloride ABG Glucose Oxyhemoglobin Carboxyhemoglobin Sodium Potassium Chloride Carbon Dioxide BUN Creatinine Glucose POC Glucose 206 H 194 H Lactic Acid Calcium Phosphorus Magnesium Ferritin Total Bilirubin Direct Bilirubin AST ALT Alkaline Phosphatase Lactate Dehydrogenase C-Reactive Protein NT-Pro-B Natriuret Pep Total Protein Albumin Lipase Arterial Blood Glucose Arterial Blood Ionized Calcium Ur Specific [place] Vancomycin Trough Coronavirus (PCR) 05/20/21 05/20/21 05/20/21 00:01 04:30 06:09 WBC RBC Hgb Hct MCV MCH RDW Plt Count Lymph % (Auto) Eos % (Auto) Lymph # (Auto) Eos # (Auto) Seg Neutrophils % Seg Neuts % (Manual) Lymphocytes % (Manual) Seg Neutrophils # Man Lymphocytes # (Manual) PT INR APTT D-Dimer ABG pH POC ABG pCO2 POC ABG pO2 ABG pO2 ABG HCO3 ABG O2 Saturation ABG Base Excess ABG Hemoglobin ABG Oxyhemoglobin ABG Sodium ABG Potassium ABG Chloride ABG Glucose Oxyhemoglobin Carboxyhemoglobin Sodium Potassium 3.5 L Chloride Carbon Dioxide BUN 24 H Creatinine 0.3 L Glucose 254 H POC Glucose 209 H 210 H Lactic Acid Calcium 7.5 L Phosphorus 1.90 L D Magnesium Ferritin Total Bilirubin 1.60 H Direct Bilirubin AST 201 H ALT 170 H Alkaline Phosphatase 169 H Lactate Dehydrogenase C-Reactive Protein NT-Pro-B Natriuret Pep Total Protein 5.3 L Albumin 1.9 L Lipase Arterial Blood Glucose Arterial Blood Ionized Calcium Ur Specific [place] Vancomycin Trough Coronavirus (PCR) 05/20/21 05/20/21 05/20/21 11:41 16:47 22:21 WBC RBC Hgb Hct MCV MCH RDW Plt Count Lymph % (Auto) Eos % (Auto) Lymph # (Auto) Eos # (Auto) Seg Neutrophils % Seg Neuts % (Manual) Lymphocytes % (Manual) Seg Neutrophils # Man Lymphocytes # (Manual) PT INR APTT D-Dimer ABG pH POC ABG pCO2 POC ABG pO2 ABG pO2 ABG HCO3 ABG O2 Saturation ABG Base Excess ABG Hemoglobin ABG Oxyhemoglobin ABG Sodium ABG Potassium ABG Chloride ABG Glucose Oxyhemoglobin Carboxyhemoglobin Sodium Potassium Chloride Carbon Dioxide BUN Creatinine Glucose POC Glucose 158 H 232 H 211 H Lactic Acid Calcium Phosphorus Magnesium Ferritin Total Bilirubin Direct Bilirubin AST ALT Alkaline Phosphatase Lactate Dehydrogenase C-Reactive Protein NT-Pro-B Natriuret Pep Total Protein Albumin Lipase Arterial Blood Glucose Arterial Blood Ionized Calcium Ur Specific [place] Vancomycin Trough Coronavirus (PCR) 05/21/21 05/21/21 05/21/21 00:35 04:00 04:00 WBC RBC 3.28 L Hgb Hct MCV MCH RDW 18.7 H Plt Count 125 L Lymph % (Auto) Eos % (Auto) Lymph # (Auto) Eos # (Auto) Seg Neutrophils % Seg Neuts % (Manual) Lymphocytes % (Manual) Seg Neutrophils # Man Lymphocytes # (Manual) PT INR APTT D-Dimer ABG pH POC ABG pCO2 POC ABG pO2 ABG pO2 ABG HCO3 ABG O2 Saturation ABG Base Excess ABG Hemoglobin ABG Oxyhemoglobin ABG Sodium ABG Potassium ABG Chloride ABG Glucose Oxyhemoglobin Carboxyhemoglobin Sodium Potassium 5.1 H D Chloride 108.7 H Carbon Dioxide BUN 21 H Creatinine 0.2 L Glucose 242 H POC Glucose 230 H Lactic Acid Calcium 7.3 L Phosphorus Magnesium Ferritin Total Bilirubin Direct Bilirubin AST ALT Alkaline Phosphatase Lactate Dehydrogenase C-Reactive Protein NT-Pro-B Natriuret Pep Total Protein Albumin Lipase Arterial Blood Glucose Arterial Blood Ionized Calcium Ur Specific [place] Vancomycin Trough Coronavirus (PCR) 05/21/21 05/21/21 05/21/21 05:08 11:47 17:43 WBC RBC Hgb Hct MCV MCH RDW Plt Count Lymph % (Auto) Eos % (Auto) Lymph # (Auto) Eos # (Auto) Seg Neutrophils % Seg Neuts % (Manual) Lymphocytes % (Manual) Seg Neutrophils # Man Lymphocytes # (Manual) PT INR APTT D-Dimer ABG pH POC ABG pCO2 POC ABG pO2 ABG pO2 ABG HCO3 ABG O2 Saturation ABG Base Excess ABG Hemoglobin ABG Oxyhemoglobin ABG Sodium ABG Potassium ABG Chloride ABG Glucose Oxyhemoglobin Carboxyhemoglobin Sodium Potassium Chloride Carbon Dioxide BUN Creatinine Glucose POC Glucose 196 H 139 H 147 H Lactic Acid Calcium Phosphorus Magnesium Ferritin Total Bilirubin Direct Bilirubin AST ALT Alkaline Phosphatase Lactate Dehydrogenase C-Reactive Protein NT-Pro-B Natriuret Pep Total Protein Albumin Lipase Arterial Blood Glucose Arterial Blood Ionized Calcium Ur Specific [place] Vancomycin Trough Coronavirus (PCR) 05/21/21 05/21/21 05/22/21 17:57 23:32 04:16 WBC RBC Hgb Hct MCV MCH RDW Plt Count Lymph % (Auto) Eos % (Auto) Lymph # (Auto) Eos # (Auto) Seg Neutrophils % Seg Neuts % (Manual) Lymphocytes % (Manual) Seg Neutrophils # Man Lymphocytes # (Manual) PT INR APTT D-Dimer ABG pH POC ABG pCO2 POC ABG pO2 ABG pO2 ABG HCO3 ABG O2 Saturation ABG Base Excess ABG Hemoglobin ABG Oxyhemoglobin ABG Sodium ABG Potassium ABG Chloride ABG Glucose Oxyhemoglobin Carboxyhemoglobin Sodium Potassium 5.2 H Chloride Carbon Dioxide BUN 19 H Creatinine 0.2 L Glucose 154 H POC Glucose 218 H 185 H Lactic Acid Calcium 7.5 L Phosphorus Magnesium Ferritin Total Bilirubin 3.00 H Direct Bilirubin 2.3 H AST 437 H ALT 462 H Alkaline Phosphatase 186 H Lactate Dehydrogenase C-Reactive Protein NT-Pro-B Natriuret Pep Total Protein 5.5 L Albumin 1.9 L Lipase Arterial Blood Glucose Arterial Blood Ionized Calcium Ur Specific [place] Vancomycin Trough Coronavirus (PCR) 05/22/21 05/22/21 05/22/21 04:30 04:30 04:30 WBC RBC Hgb Hct MCV MCH RDW Plt Count Lymph % (Auto) Eos % (Auto) Lymph # (Auto) Eos # (Auto) Seg Neutrophils % Seg Neuts % (Manual) Lymphocytes % (Manual) Seg Neutrophils # Man Lymphocytes # (Manual) PT 19.5 H INR 1.49 H APTT D-Dimer ABG pH POC ABG pCO2 POC ABG pO2 ABG pO2 ABG HCO3 ABG O2 Saturation ABG Base Excess ABG Hemoglobin ABG Oxyhemoglobin ABG Sodium ABG Potassium ABG Chloride ABG Glucose Oxyhemoglobin Carboxyhemoglobin Sodium 134 L Potassium Chloride Carbon Dioxide BUN 19 H Creatinine 0.2 L Glucose 208 H POC Glucose Lactic Acid Calcium 7.2 L Phosphorus 2.40 L D Magnesium Ferritin Total Bilirubin 2.20 H Direct Bilirubin AST 350 H ALT 496 H Alkaline Phosphatase 167 H Lactate Dehydrogenase C-Reactive Protein NT-Pro-B Natriuret Pep Total Protein 4.8 L Albumin 1.7 L Lipase Arterial Blood Glucose Arterial Blood Ionized Calcium Ur Specific [place] Vancomycin Trough Coronavirus (PCR) 05/22/21 05/22/21 05/22/21 11:59 17:16 23:07 WBC RBC Hgb Hct MCV MCH RDW Plt Count Lymph % (Auto) Eos % (Auto) Lymph # (Auto) Eos # (Auto) Seg Neutrophils % Seg Neuts % (Manual) Lymphocytes % (Manual) Seg Neutrophils # Man Lymphocytes # (Manual) PT INR APTT D-Dimer ABG pH POC ABG pCO2 POC ABG pO2 ABG pO2 ABG HCO3 ABG O2 Saturation ABG Base Excess ABG Hemoglobin ABG Oxyhemoglobin ABG Sodium ABG Potassium ABG Chloride ABG Glucose Oxyhemoglobin Carboxyhemoglobin Sodium Potassium Chloride Carbon Dioxide BUN Creatinine Glucose POC Glucose 204 H 244 H 226 H Lactic Acid Calcium Phosphorus Magnesium Ferritin Total Bilirubin Direct Bilirubin AST ALT Alkaline Phosphatase Lactate Dehydrogenase C-Reactive Protein NT-Pro-B Natriuret Pep Total Protein Albumin Lipase Arterial Blood Glucose Arterial Blood Ionized Calcium Ur Specific [place] Vancomycin Trough Coronavirus (PCR) 05/23/21 05/23/21 05/23/21 05:09 10:15 10:15 WBC RBC Hgb Hct MCV MCH RDW Plt Count Lymph % (Auto) Eos % (Auto) Lymph # (Auto) Eos # (Auto) Seg Neutrophils % Seg Neuts % (Manual) Lymphocytes % (Manual) Seg Neutrophils # Man Lymphocytes # (Manual) PT 16.9 H INR 1.24 H APTT D-Dimer ABG pH POC ABG pCO2 POC ABG pO2 ABG pO2 ABG HCO3 ABG O2 Saturation ABG Base Excess ABG Hemoglobin ABG Oxyhemoglobin ABG Sodium ABG Potassium ABG Chloride ABG Glucose Oxyhemoglobin Carboxyhemoglobin Sodium 131 L Potassium Chloride 97.5 L Carbon Dioxide BUN Creatinine < 0.2 L Glucose 248 H POC Glucose 175 H Lactic Acid Calcium 7.4 L Phosphorus Magnesium 1.60 L Ferritin Total Bilirubin Direct Bilirubin AST ALT Alkaline Phosphatase Lactate Dehydrogenase C-Reactive Protein NT-Pro-B Natriuret Pep Total Protein Albumin Lipase Arterial Blood Glucose Arterial Blood Ionized Calcium Ur Specific [place] Vancomycin Trough Coronavirus (PCR) 05/23/21 05/23/21 05/24/21 10:15 21:46 04:16 WBC RBC Hgb Hct MCV MCH RDW Plt Count Lymph % (Auto) Eos % (Auto) Lymph # (Auto) Eos # (Auto) Seg Neutrophils % Seg Neuts % (Manual) Lymphocytes % (Manual) Seg Neutrophils # Man Lymphocytes # (Manual) PT INR APTT D-Dimer ABG pH POC ABG pCO2 POC ABG pO2 ABG pO2 ABG HCO3 ABG O2 Saturation ABG Base Excess ABG Hemoglobin ABG Oxyhemoglobin ABG Sodium ABG Potassium ABG Chloride ABG Glucose Oxyhemoglobin Carboxyhemoglobin Sodium 130 L Potassium 3.5 L Chloride 97.1 L Carbon Dioxide BUN Creatinine 0.2 L Glucose 235 H POC Glucose 190 H Lactic Acid Calcium 6.8 L Phosphorus Magnesium Ferritin Total Bilirubin 2.30 H Direct Bilirubin 1.6 H AST 161 H ALT 396 H Alkaline Phosphatase 186 H Lactate Dehydrogenase C-Reactive Protein NT-Pro-B Natriuret Pep Total Protein 4.7 L Albumin 2.0 L Lipase Arterial Blood Glucose Arterial Blood Ionized Calcium Ur Specific [place] Vancomycin Trough Coronavirus (PCR) 05/24/21 05/25/21 05/25/21 05:32 04:25 04:25 WBC 11.7 H RBC 3.28 L Hgb Hct MCV MCH RDW 19.9 H Plt Count Lymph % (Auto) Eos % (Auto) Lymph # (Auto) Eos # (Auto) Seg Neutrophils % Seg Neuts % (Manual) Lymphocytes % (Manual) Seg Neutrophils # Man Lymphocytes # (Manual) PT INR APTT D-Dimer ABG pH POC ABG pCO2 POC ABG pO2 ABG pO2 ABG HCO3 ABG O2 Saturation ABG Base Excess ABG Hemoglobin ABG Oxyhemoglobin ABG Sodium ABG Potassium ABG Chloride ABG Glucose Oxyhemoglobin Carboxyhemoglobin Sodium 135 L Potassium 3.4 L Chloride Carbon Dioxide BUN Creatinine 0.2 L Glucose 105 H POC Glucose 208 H Lactic Acid Calcium 7.6 L Phosphorus Magnesium Ferritin Total Bilirubin Direct Bilirubin AST ALT Alkaline Phosphatase Lactate Dehydrogenase C-Reactive Protein NT-Pro-B Natriuret Pep Total Protein Albumin Lipase Arterial Blood Glucose Arterial Blood Ionized Calcium Ur Specific [place] Vancomycin Trough Coronavirus (PCR) 05/26/21 05/26/21 05/26/21 11:37 16:57 20:59 WBC RBC Hgb Hct MCV MCH RDW Plt Count Lymph % (Auto) Eos % (Auto) Lymph # (Auto) Eos # (Auto) Seg Neutrophils % Seg Neuts % (Manual) Lymphocytes % (Manual) Seg Neutrophils # Man Lymphocytes # (Manual) PT INR APTT D-Dimer ABG pH POC ABG pCO2 POC ABG pO2 ABG pO2 ABG HCO3 ABG O2 Saturation ABG Base Excess ABG Hemoglobin ABG Oxyhemoglobin ABG Sodium ABG Potassium ABG Chloride ABG Glucose Oxyhemoglobin Carboxyhemoglobin Sodium Potassium Chloride Carbon Dioxide BUN Creatinine Glucose POC Glucose 136 H 214 H 137 H Lactic Acid Calcium Phosphorus Magnesium Ferritin Total Bilirubin Direct Bilirubin AST ALT Alkaline Phosphatase Lactate Dehydrogenase C-Reactive Protein NT-Pro-B Natriuret Pep Total Protein Albumin Lipase Arterial Blood Glucose Arterial Blood Ionized Calcium Ur Specific [place] Vancomycin Trough Coronavirus (PCR) 05/26/21 05/27/21 05/27/21 23:52 05:40 16:49 WBC RBC Hgb Hct MCV MCH RDW Plt Count Lymph % (Auto) Eos % (Auto) Lymph # (Auto) Eos # (Auto) Seg Neutrophils % Seg Neuts % (Manual) Lymphocytes % (Manual) Seg Neutrophils # Man Lymphocytes # (Manual) PT INR APTT D-Dimer ABG pH POC ABG pCO2 POC ABG pO2 ABG pO2 ABG HCO3 ABG O2 Saturation ABG Base Excess ABG Hemoglobin ABG Oxyhemoglobin ABG Sodium ABG Potassium ABG Chloride ABG Glucose Oxyhemoglobin Carboxyhemoglobin Sodium Potassium Chloride Carbon Dioxide BUN Creatinine Glucose POC Glucose 111 H 144 H 213 H Lactic Acid Calcium Phosphorus Magnesium Ferritin Total Bilirubin Direct Bilirubin AST ALT Alkaline Phosphatase Lactate Dehydrogenase C-Reactive Protein NT-Pro-B Natriuret Pep Total Protein Albumin Lipase Arterial Blood Glucose Arterial Blood Ionized Calcium Ur Specific [place] Vancomycin Trough Coronavirus (PCR) 05/27/21 05/27/21 05/28/21 21:07 23:57 11:59 WBC RBC Hgb Hct MCV MCH RDW Plt Count Lymph % (Auto) Eos % (Auto) Lymph # (Auto) Eos # (Auto) Seg Neutrophils % Seg Neuts % (Manual) Lymphocytes % (Manual) Seg Neutrophils # Man Lymphocytes # (Manual) PT INR APTT D-Dimer ABG pH POC ABG pCO2 POC ABG pO2 ABG pO2 ABG HCO3 ABG O2 Saturation ABG Base Excess ABG Hemoglobin ABG Oxyhemoglobin ABG Sodium ABG Potassium ABG Chloride ABG Glucose Oxyhemoglobin Carboxyhemoglobin Sodium Potassium Chloride Carbon Dioxide BUN Creatinine Glucose POC Glucose 135 H 157 H 130 H Lactic Acid Calcium Phosphorus Magnesium Ferritin Total Bilirubin Direct Bilirubin AST ALT Alkaline Phosphatase Lactate Dehydrogenase C-Reactive Protein NT-Pro-B Natriuret Pep Total Protein Albumin Lipase Arterial Blood Glucose Arterial Blood Ionized Calcium Ur Specific [place] Vancomycin Trough Coronavirus (PCR) 05/28/21 05/29/21 05/29/21 17:05 01:03 05:07 WBC RBC Hgb Hct MCV MCH RDW Plt Count Lymph % (Auto) Eos % (Auto) Lymph # (Auto) Eos # (Auto) Seg Neutrophils % Seg Neuts % (Manual) Lymphocytes % (Manual) Seg Neutrophils # Man Lymphocytes # (Manual) PT INR APTT D-Dimer ABG pH POC ABG pCO2 POC ABG pO2 ABG pO2 ABG HCO3 ABG O2 Saturation ABG Base Excess ABG Hemoglobin ABG Oxyhemoglobin ABG Sodium ABG Potassium ABG Chloride ABG Glucose Oxyhemoglobin Carboxyhemoglobin Sodium 148 H D Potassium 3.0 L Chloride 108.0 H Carbon Dioxide BUN Creatinine 0.2 L Glucose 155 H POC Glucose 207 H 204 H Lactic Acid Calcium 7.7 L Phosphorus Magnesium Ferritin Total Bilirubin Direct Bilirubin AST ALT Alkaline Phosphatase Lactate Dehydrogenase C-Reactive Protein NT-Pro-B Natriuret Pep Total Protein Albumin Lipase Arterial Blood Glucose Arterial Blood Ionized Calcium Ur Specific [place] Vancomycin Trough Coronavirus (PCR) 05/29/21 05/29/21 05/29/21 08:20 11:30 17:53 WBC RBC Hgb Hct MCV MCH RDW Plt Count Lymph % (Auto) Eos % (Auto) Lymph # (Auto) Eos # (Auto) Seg Neutrophils % Seg Neuts % (Manual) Lymphocytes % (Manual) Seg Neutrophils # Man Lymphocytes # (Manual) PT INR APTT D-Dimer ABG pH POC ABG pCO2 POC ABG pO2 ABG pO2 ABG HCO3 ABG O2 Saturation ABG Base Excess ABG Hemoglobin ABG Oxyhemoglobin ABG Sodium ABG Potassium ABG Chloride ABG Glucose Oxyhemoglobin Carboxyhemoglobin Sodium Potassium Chloride Carbon Dioxide BUN Creatinine Glucose POC Glucose 119 H 199 H Lactic Acid Calcium Phosphorus Magnesium Ferritin Total Bilirubin Direct Bilirubin AST ALT Alkaline Phosphatase Lactate Dehydrogenase C-Reactive Protein NT-Pro-B Natriuret Pep Total Protein Albumin Lipase Arterial Blood Glucose Arterial Blood Ionized Calcium Ur Specific [place] Vancomycin Trough Coronavirus (PCR) Positive A 05/30/21 05/30/21 05/30/21 00:37 05:54 06:50 WBC RBC Hgb Hct MCV MCH RDW Plt Count Lymph % (Auto) Eos % (Auto) Lymph # (Auto) Eos # (Auto) Seg Neutrophils % Seg Neuts % (Manual) Lymphocytes % (Manual) Seg Neutrophils # Man Lymphocytes # (Manual) PT INR APTT D-Dimer ABG pH POC ABG pCO2 POC ABG pO2 ABG pO2 ABG HCO3 ABG O2 Saturation ABG Base Excess ABG Hemoglobin ABG Oxyhemoglobin ABG Sodium ABG Potassium ABG Chloride ABG Glucose Oxyhemoglobin Carboxyhemoglobin Sodium Potassium Chloride Carbon Dioxide BUN Creatinine Glucose POC Glucose 117 H 56 L 157 H Lactic Acid Calcium Phosphorus Magnesium Ferritin Total Bilirubin Direct Bilirubin AST ALT Alkaline Phosphatase Lactate Dehydrogenase C-Reactive Protein NT-Pro-B Natriuret Pep Total Protein Albumin Lipase Arterial Blood Glucose Arterial Blood Ionized Calcium Ur Specific [place] Vancomycin Trough Coronavirus (PCR) 05/30/21 05/30/21 05/31/21 17:18 23:54 05:27 WBC RBC Hgb Hct MCV MCH RDW Plt Count Lymph % (Auto) Eos % (Auto) Lymph # (Auto) Eos # (Auto) Seg Neutrophils % Seg Neuts % (Manual) Lymphocytes % (Manual) Seg Neutrophils # Man Lymphocytes # (Manual) PT INR APTT D-Dimer ABG pH POC ABG pCO2 POC ABG pO2 ABG pO2 ABG HCO3 ABG O2 Saturation ABG Base Excess ABG Hemoglobin ABG Oxyhemoglobin ABG Sodium ABG Potassium ABG Chloride ABG Glucose Oxyhemoglobin Carboxyhemoglobin Sodium Potassium Chloride Carbon Dioxide BUN Creatinine Glucose POC Glucose 181 H 130 H 112 H Lactic Acid Calcium Phosphorus Magnesium Ferritin Total Bilirubin Direct Bilirubin AST ALT Alkaline Phosphatase Lactate Dehydrogenase C-Reactive Protein NT-Pro-B Natriuret Pep Total Protein Albumin Lipase Arterial Blood Glucose Arterial Blood Ionized Calcium Ur Specific [place] Vancomycin Trough Coronavirus (PCR) 05/31/21 05/31/21 05/31/21 12:06 17:35 23:56 WBC RBC Hgb Hct MCV MCH RDW Plt Count Lymph % (Auto) Eos % (Auto) Lymph # (Auto) Eos # (Auto) Seg Neutrophils % Seg Neuts % (Manual) Lymphocytes % (Manual) Seg Neutrophils # Man Lymphocytes # (Manual) PT INR APTT D-Dimer ABG pH POC ABG pCO2 POC ABG pO2 ABG pO2 ABG HCO3 ABG O2 Saturation ABG Base Excess ABG Hemoglobin ABG Oxyhemoglobin ABG Sodium ABG Potassium ABG Chloride ABG Glucose Oxyhemoglobin Carboxyhemoglobin Sodium Potassium Chloride Carbon Dioxide BUN Creatinine Glucose POC Glucose 170 H 109 H 136 H Lactic Acid Calcium Phosphorus Magnesium Ferritin Total Bilirubin Direct Bilirubin AST ALT Alkaline Phosphatase Lactate Dehydrogenase C-Reactive Protein NT-Pro-B Natriuret Pep Total Protein Albumin Lipase Arterial Blood Glucose Arterial Blood Ionized Calcium Ur Specific [place] Vancomycin Trough Coronavirus (PCR) 06/02/21 06/02/21 06/02/21 04:28 05:36 08:59 WBC RBC 3.31 L Hgb Hct MCV 100 H MCH RDW 24.7 H Plt Count Lymph % (Auto) 12.8 L Eos % (Auto) 10.2 H Lymph # (Auto) 0.6 L Eos # (Auto) 0.5 H Seg Neutrophils % 75.5 H Seg Neuts % (Manual) Lymphocytes % (Manual) Seg Neutrophils # Man Lymphocytes # (Manual) PT INR APTT D-Dimer ABG pH 7.258 L 7.251 L POC ABG pCO2 73.4 H 67.7 H POC ABG pO2 33.0 L 189.6 H ABG pO2 ABG HCO3 ABG O2 Saturation ABG Base Excess ABG Hemoglobin 11.8 L 11.8 L ABG Oxyhemoglobin 48.8 L ABG Sodium 146.7 H 146.3 H ABG Potassium 3.1 L ABG Chloride 109.0 H ABG Glucose 64 L Oxyhemoglobin Carboxyhemoglobin 1.6 H Sodium Potassium Chloride Carbon Dioxide BUN Creatinine Glucose POC Glucose Lactic Acid Calcium Phosphorus Magnesium Ferritin Total Bilirubin Direct Bilirubin AST ALT Alkaline Phosphatase Lactate Dehydrogenase C-Reactive Protein NT-Pro-B Natriuret Pep Total Protein Albumin Lipase Arterial Blood Glucose 64 L Arterial Blood Ionized Calcium Ur Specific [place] Vancomycin Trough Coronavirus (PCR) 06/02/21 06/02/21 06/02/21 08:59 11:39 14:50 WBC RBC Hgb Hct MCV MCH RDW Plt Count Lymph % (Auto) Eos % (Auto) Lymph # (Auto) Eos # (Auto) Seg Neutrophils % Seg Neuts % (Manual) Lymphocytes % (Manual) Seg Neutrophils # Man Lymphocytes # (Manual) PT INR APTT D-Dimer ABG pH 7.339 L POC ABG pCO2 POC ABG pO2 ABG pO2 91.4 H ABG HCO3 26.2 H ABG O2 Saturation ABG Base Excess ABG Hemoglobin 11.3 L ABG Oxyhemoglobin ABG Sodium ABG Potassium ABG Chloride ABG Glucose Oxyhemoglobin 93.7 L Carboxyhemoglobin Sodium 148 H Potassium 2.9 L* Chloride 111.1 H Carbon Dioxide BUN Creatinine 0.3 L Glucose 29 L* POC Glucose 140 H Lactic Acid Calcium 7.7 L Phosphorus Magnesium 1.50 L Ferritin Total Bilirubin Direct Bilirubin AST ALT Alkaline Phosphatase Lactate Dehydrogenase C-Reactive Protein NT-Pro-B Natriuret Pep Total Protein Albumin Lipase Arterial Blood Glucose Arterial Blood Ionized Calcium Ur Specific [place] Vancomycin Trough Coronavirus (PCR) 06/02/21 06/02/21 06/02/21 17:49 19:47 21:30 WBC RBC Hgb Hct MCV MCH RDW Plt Count Lymph % (Auto) Eos % (Auto) Lymph # (Auto) Eos # (Auto) Seg Neutrophils % Seg Neuts % (Manual) Lymphocytes % (Manual) Seg Neutrophils # Man Lymphocytes # (Manual) PT INR APTT D-Dimer ABG pH POC ABG pCO2 POC ABG pO2 ABG pO2 ABG HCO3 ABG O2 Saturation ABG Base Excess ABG Hemoglobin ABG Oxyhemoglobin ABG Sodium ABG Potassium ABG Chloride ABG Glucose Oxyhemoglobin Carboxyhemoglobin Sodium Potassium Chloride 109.6 H Carbon Dioxide 21 L D BUN Creatinine Glucose 123 H POC Glucose 67 L 117 H Lactic Acid Calcium 7.5 L Phosphorus 5.20 H D Magnesium 2.90 H Ferritin Total Bilirubin Direct Bilirubin AST ALT Alkaline Phosphatase Lactate Dehydrogenase C-Reactive Protein NT-Pro-B Natriuret Pep Total Protein Albumin Lipase Arterial Blood Glucose Arterial Blood Ionized Calcium Ur Specific [place] Vancomycin Trough Coronavirus (PCR) 06/02/21 06/02/21 06/02/21 21:30 22:00 23:10 WBC RBC Hgb Hct MCV MCH RDW Plt Count Lymph % (Auto) Eos % (Auto) Lymph # (Auto) Eos # (Auto) Seg Neutrophils % Seg Neuts % (Manual) Lymphocytes % (Manual) Seg Neutrophils # Man Lymphocytes # (Manual) PT INR APTT D-Dimer ABG pH POC ABG pCO2 POC ABG pO2 ABG pO2 ABG HCO3 ABG O2 Saturation ABG Base Excess ABG Hemoglobin ABG Oxyhemoglobin ABG Sodium ABG Potassium ABG Chloride ABG Glucose Oxyhemoglobin Carboxyhemoglobin Sodium 147 H Potassium Chloride 111.7 H Carbon Dioxide BUN Creatinine Glucose 105 H POC Glucose 122 H Lactic Acid Calcium 7.5 L Phosphorus Magnesium Ferritin Total Bilirubin Direct Bilirubin AST 74 H ALT 96 H Alkaline Phosphatase 207 H Lactate Dehydrogenase C-Reactive Protein NT-Pro-B Natriuret Pep 2326 H Total Protein 5.0 L Albumin 2.0 L Lipase Arterial Blood Glucose Arterial Blood Ionized Calcium Ur Specific [place] Vancomycin Trough Coronavirus (PCR) 06/03/21 06/03/21 06/03/21 04:45 04:45 04:45 WBC 13.6 H RBC 3.44 L Hgb Hct MCV 102 H MCH RDW 25.4 H Plt Count Lymph % (Auto) Eos % (Auto) Lymph # (Auto) Eos # (Auto) Seg Neutrophils % Seg Neuts % (Manual) Lymphocytes % (Manual) Seg Neutrophils # Man Lymphocytes # (Manual) PT INR APTT D-Dimer ABG pH POC ABG pCO2 POC ABG pO2 ABG pO2 ABG HCO3 ABG O2 Saturation ABG Base Excess ABG Hemoglobin ABG Oxyhemoglobin ABG Sodium ABG Potassium ABG Chloride ABG Glucose Oxyhemoglobin Carboxyhemoglobin Sodium Potassium Chloride Carbon Dioxide BUN Creatinine Glucose 151 H POC Glucose Lactic Acid Calcium 7.6 L Phosphorus 6.70 H D Magnesium Ferritin Total Bilirubin Direct Bilirubin AST 68 H ALT 103 H Alkaline Phosphatase 226 H Lactate Dehydrogenase C-Reactive Protein NT-Pro-B Natriuret Pep Total Protein 6.0 L Albumin 2.0 L Lipase Arterial Blood Glucose Arterial Blood Ionized Calcium Ur Specific [place] Vancomycin Trough Coronavirus (PCR) 06/03/21 06/03/21 06/03/21 05:02 10:00 11:46 WBC RBC Hgb Hct MCV MCH RDW Plt Count Lymph % (Auto) Eos % (Auto) Lymph # (Auto) Eos # (Auto) Seg Neutrophils % Seg Neuts % (Manual) Lymphocytes % (Manual) Seg Neutrophils # Man Lymphocytes # (Manual) PT INR APTT D-Dimer ABG pH 7.312 L POC ABG pCO2 POC ABG pO2 ABG pO2 68.5 L ABG HCO3 ABG O2 Saturation 93.0 L ABG Base Excess ABG Hemoglobin 11.5 L ABG Oxyhemoglobin ABG Sodium ABG Potassium ABG Chloride ABG Glucose Oxyhemoglobin 90.1 L Carboxyhemoglobin Sodium Potassium Chloride Carbon Dioxide BUN Creatinine Glucose POC Glucose 139 H 150 H Lactic Acid Calcium Phosphorus Magnesium Ferritin Total Bilirubin Direct Bilirubin AST ALT Alkaline Phosphatase Lactate Dehydrogenase C-Reactive Protein NT-Pro-B Natriuret Pep Total Protein Albumin Lipase Arterial Blood Glucose Arterial Blood Ionized Calcium Ur Specific [place] Vancomycin Trough Coronavirus (PCR) 06/03/21 06/03/21 06/04/21 17:19 23:01 04:00 WBC RBC 2.99 L Hgb 9.7 L Hct 30.0 L MCV 101 H MCH 33 H RDW 25.3 H Plt Count Lymph % (Auto) Eos % (Auto) Lymph # (Auto) Eos # (Auto) Seg Neutrophils % Seg Neuts % (Manual) Lymphocytes % (Manual) Seg Neutrophils # Man Lymphocytes # (Manual) PT INR APTT D-Dimer ABG pH POC ABG pCO2 POC ABG pO2 ABG pO2 ABG HCO3 ABG O2 Saturation ABG Base Excess ABG Hemoglobin ABG Oxyhemoglobin ABG Sodium ABG Potassium ABG Chloride ABG Glucose Oxyhemoglobin Carboxyhemoglobin Sodium Potassium Chloride Carbon Dioxide BUN Creatinine Glucose POC Glucose 135 H 164 H Lactic Acid Calcium Phosphorus Magnesium Ferritin Total Bilirubin Direct Bilirubin AST ALT Alkaline Phosphatase Lactate Dehydrogenase C-Reactive Protein NT-Pro-B Natriuret Pep Total Protein Albumin Lipase Arterial Blood Glucose Arterial Blood Ionized Calcium Ur Specific [place] Vancomycin Trough Coronavirus (PCR) 06/04/21 06/04/21 06/04/21 04:40 05:02 10:00 WBC RBC Hgb Hct MCV MCH RDW Plt Count Lymph % (Auto) Eos % (Auto) Lymph # (Auto) Eos # (Auto) Seg Neutrophils % Seg Neuts % (Manual) Lymphocytes % (Manual) Seg Neutrophils # Man Lymphocytes # (Manual) PT INR APTT D-Dimer ABG pH POC ABG pCO2 52.2 H POC ABG pO2 82.9 L ABG pO2 ABG HCO3 ABG O2 Saturation ABG Base Excess ABG Hemoglobin ABG Oxyhemoglobin ABG Sodium 135.4 L ABG Potassium ABG Chloride ABG Glucose 163 H Oxyhemoglobin Carboxyhemoglobin 1.7 H Sodium Potassium Chloride Carbon Dioxide BUN 19 H Creatinine 0.5 L Glucose 150 H POC Glucose 137 H Lactic Acid Calcium 8.0 L Phosphorus Magnesium Ferritin Total Bilirubin Direct Bilirubin AST ALT 70 H Alkaline Phosphatase 204 H Lactate Dehydrogenase C-Reactive Protein NT-Pro-B Natriuret Pep Total Protein 5.7 L Albumin 1.8 L Lipase Arterial Blood Glucose 163 H Arterial Blood Ionized Calcium Ur Specific [place] Vancomycin Trough Coronavirus (PCR) 06/04/21 06/04/21 06/04/21 12:09 17:43 17:49 WBC RBC Hgb Hct MCV MCH RDW Plt Count Lymph % (Auto) Eos % (Auto) Lymph # (Auto) Eos # (Auto) Seg Neutrophils % Seg Neuts % (Manual) Lymphocytes % (Manual) Seg Neutrophils # Man Lymphocytes # (Manual) PT INR APTT D-Dimer ABG pH POC ABG pCO2 POC ABG pO2 66.6 L ABG pO2 ABG HCO3 ABG O2 Saturation ABG Base Excess ABG Hemoglobin 11.2 L ABG Oxyhemoglobin 91.9 L ABG Sodium 134.9 L ABG Potassium ABG Chloride 97.0 L ABG Glucose 181 H Oxyhemoglobin Carboxyhemoglobin Sodium Potassium Chloride Carbon Dioxide BUN Creatinine Glucose POC Glucose 160 H 170 H Lactic Acid Calcium Phosphorus Magnesium Ferritin Total Bilirubin Direct Bilirubin AST ALT Alkaline Phosphatase Lactate Dehydrogenase C-Reactive Protein NT-Pro-B Natriuret Pep Total Protein Albumin Lipase Arterial Blood Glucose 181 H Arterial Blood Ionized Calcium Ur Specific [place] Vancomycin Trough Coronavirus (PCR) 06/04/21 06/05/21 06/05/21 23:31 06:00 06:00 WBC RBC 3.13 L Hgb 10.0 L Hct MCV 100 H MCH RDW 24.6 H Plt Count 127 L Lymph % (Auto) Eos % (Auto) Lymph # (Auto) Eos # (Auto) Seg Neutrophils % Seg Neuts % (Manual) Lymphocytes % (Manual) Seg Neutrophils # Man Lymphocytes # (Manual) PT INR APTT D-Dimer ABG pH POC ABG pCO2 POC ABG pO2 ABG pO2 ABG HCO3 ABG O2 Saturation ABG Base Excess ABG Hemoglobin ABG Oxyhemoglobin ABG Sodium ABG Potassium ABG Chloride ABG Glucose Oxyhemoglobin Carboxyhemoglobin Sodium 136 L Potassium Chloride 94.2 L Carbon Dioxide 32 H BUN Creatinine 0.3 L Glucose 241 H POC Glucose 149 H Lactic Acid Calcium 8.3 L Phosphorus Magnesium Ferritin Total Bilirubin Direct Bilirubin AST ALT Alkaline Phosphatase 219 H Lactate Dehydrogenase 301 H C-Reactive Protein 22.40 H NT-Pro-B Natriuret Pep Total Protein 6.2 L Albumin 1.8 L Lipase Arterial Blood Glucose Arterial Blood Ionized Calcium Ur Specific [place] Vancomycin Trough Coronavirus (PCR) 06/05/21 06/05/21 06/05/21 06:00 06:00 06:12 WBC RBC Hgb Hct MCV MCH RDW Plt Count Lymph % (Auto) Eos % (Auto) Lymph # (Auto) Eos # (Auto) Seg Neutrophils % Seg Neuts % (Manual) Lymphocytes % (Manual) Seg Neutrophils # Man Lymphocytes # (Manual) PT 15.9 H INR 1.15 H APTT 37.1 H D-Dimer 1282.85 H ABG pH POC ABG pCO2 POC ABG pO2 ABG pO2 ABG HCO3 ABG O2 Saturation ABG Base Excess ABG Hemoglobin ABG Oxyhemoglobin ABG Sodium ABG Potassium ABG Chloride ABG Glucose Oxyhemoglobin Carboxyhemoglobin Sodium Potassium Chloride Carbon Dioxide BUN Creatinine Glucose POC Glucose 228 H Lactic Acid Calcium Phosphorus Magnesium Ferritin 717.1 H Total Bilirubin Direct Bilirubin AST ALT Alkaline Phosphatase Lactate Dehydrogenase C-Reactive Protein NT-Pro-B Natriuret Pep Total Protein Albumin Lipase Arterial Blood Glucose Arterial Blood Ionized Calcium Ur Specific [place] Vancomycin Trough Coronavirus (PCR) 06/05/21 06/05/21 06/05/21 09:17 12:20 17:07 WBC RBC Hgb Hct MCV MCH RDW Plt Count Lymph % (Auto) Eos % (Auto) Lymph # (Auto) Eos # (Auto) Seg Neutrophils % Seg Neuts % (Manual) Lymphocytes % (Manual) Seg Neutrophils # Man Lymphocytes # (Manual) PT INR APTT D-Dimer ABG pH POC ABG pCO2 54.0 H POC ABG pO2 140.6 H ABG pO2 ABG HCO3 ABG O2 Saturation ABG Base Excess ABG Hemoglobin 10.3 L ABG Oxyhemoglobin ABG Sodium 133.6 L ABG Potassium 3.3 L ABG Chloride 97.0 L ABG Glucose 179 H Oxyhemoglobin Carboxyhemoglobin Sodium Potassium Chloride Carbon Dioxide BUN Creatinine Glucose POC Glucose 220 H 197 H Lactic Acid Calcium Phosphorus Magnesium Ferritin Total Bilirubin Direct Bilirubin AST ALT Alkaline Phosphatase Lactate Dehydrogenase C-Reactive Protein NT-Pro-B Natriuret Pep Total Protein Albumin Lipase Arterial Blood Glucose 179 H Arterial Blood Ionized Calcium Ur Specific [place] Vancomycin Trough Coronavirus (PCR) 06/05/21 06/06/21 06/06/21 23:29 05:26 05:26 WBC 3.5 L RBC 3.21 L Hgb Hct MCV 98 H MCH RDW 23.9 H Plt Count 110 L Lymph % (Auto) Eos % (Auto) Lymph # (Auto) Eos # (Auto) Seg Neutrophils % Seg Neuts % (Manual) Lymphocytes % (Manual) Seg Neutrophils # Man Lymphocytes # (Manual) PT INR APTT D-Dimer ABG pH POC ABG pCO2 POC ABG pO2 ABG pO2 ABG HCO3 ABG O2 Saturation ABG Base Excess ABG Hemoglobin ABG Oxyhemoglobin ABG Sodium ABG Potassium ABG Chloride ABG Glucose Oxyhemoglobin Carboxyhemoglobin Sodium Potassium 3.2 L Chloride Carbon Dioxide 34 H BUN Creatinine 0.3 L Glucose 172 H POC Glucose 180 H Lactic Acid Calcium 8.0 L Phosphorus Magnesium Ferritin Total Bilirubin Direct Bilirubin AST ALT Alkaline Phosphatase 207 H Lactate Dehydrogenase C-Reactive Protein NT-Pro-B Natriuret Pep Total Protein 5.5 L Albumin 2.0 L Lipase Arterial Blood Glucose Arterial Blood Ionized Calcium Ur Specific [place] Vancomycin Trough Coronavirus (PCR) 06/06/21 06/06/21 06/06/21 05:30 09:00 11:15 WBC RBC Hgb Hct MCV MCH RDW Plt Count Lymph % (Auto) Eos % (Auto) Lymph # (Auto) Eos # (Auto) Seg Neutrophils % Seg Neuts % (Manual) Lymphocytes % (Manual) Seg Neutrophils # Man Lymphocytes # (Manual) PT INR APTT D-Dimer ABG pH POC ABG pCO2 59.5 H POC ABG pO2 72.0 L ABG pO2 ABG HCO3 ABG O2 Saturation ABG Base Excess ABG Hemoglobin 10.9 L ABG Oxyhemoglobin 91.7 L ABG Sodium 135.8 L ABG Potassium 2.8 L ABG Chloride 96.0 L ABG Glucose 172 H Oxyhemoglobin Carboxyhemoglobin Sodium Potassium Chloride Carbon Dioxide BUN Creatinine Glucose POC Glucose 159 H 172 H Lactic Acid Calcium Phosphorus Magnesium Ferritin Total Bilirubin Direct Bilirubin AST ALT Alkaline Phosphatase Lactate Dehydrogenase C-Reactive Protein NT-Pro-B Natriuret Pep Total Protein Albumin Lipase Arterial Blood Glucose 172 H Arterial Blood Ionized Calcium 4.5 L Ur Specific [place] Vancomycin Trough Coronavirus (PCR) 06/06/21 06/06/21 06/06/21 16:07 21:00 23:46 WBC RBC Hgb Hct MCV MCH RDW Plt Count Lymph % (Auto) Eos % (Auto) Lymph # (Auto) Eos # (Auto) Seg Neutrophils % Seg Neuts % (Manual) Lymphocytes % (Manual) Seg Neutrophils # Man Lymphocytes # (Manual) PT INR APTT D-Dimer ABG pH POC ABG pCO2 59.5 H POC ABG pO2 52.1 L ABG pO2 ABG HCO3 ABG O2 Saturation ABG Base Excess ABG Hemoglobin 11.9 L ABG Oxyhemoglobin 84.0 L ABG Sodium 134.6 L ABG Potassium ABG Chloride ABG Glucose 206 H Oxyhemoglobin Carboxyhemoglobin Sodium Potassium Chloride Carbon Dioxide BUN Creatinine Glucose POC Glucose 122 H 203 H Lactic Acid Calcium Phosphorus Magnesium Ferritin Total Bilirubin Direct Bilirubin AST ALT Alkaline Phosphatase Lactate Dehydrogenase C-Reactive Protein NT-Pro-B Natriuret Pep Total Protein Albumin Lipase Arterial Blood Glucose 206 H Arterial Blood Ionized Calcium Ur Specific [place] Vancomycin Trough Coronavirus (PCR) 06/07/21 06/07/21 06/07/21 04:36 04:36 04:36 WBC RBC Hgb Hct MCV MCH RDW Plt Count Lymph % (Auto) Eos % (Auto) Lymph # (Auto) Eos # (Auto) Seg Neutrophils % Seg Neuts % (Manual) Lymphocytes % (Manual) Seg Neutrophils # Man Lymphocytes # (Manual) PT INR APTT D-Dimer 1938.43 H ABG pH POC ABG pCO2 POC ABG pO2 ABG pO2 ABG HCO3 ABG O2 Saturation ABG Base Excess ABG Hemoglobin ABG Oxyhemoglobin ABG Sodium ABG Potassium ABG Chloride ABG Glucose Oxyhemoglobin Carboxyhemoglobin Sodium Potassium Chloride Carbon Dioxide 31 H BUN Creatinine 0.3 L Glucose 234 H POC Glucose Lactic Acid Calcium Phosphorus 2.40 L Magnesium Ferritin 1287.0 H Total Bilirubin Direct Bilirubin AST ALT Alkaline Phosphatase Lactate Dehydrogenase 270 H C-Reactive Protein 26.70 H NT-Pro-B Natriuret Pep Total Protein Albumin Lipase Arterial Blood Glucose Arterial Blood Ionized Calcium Ur Specific [place] Vancomycin Trough Coronavirus (PCR) 06/07/21 06/07/21 06/07/21 04:36 05:31 10:50 WBC RBC 3.31 L Hgb Hct MCV 99 H MCH RDW 23.9 H Plt Count 133 L Lymph % (Auto) Eos % (Auto) Lymph # (Auto) Eos # (Auto) Seg Neutrophils % Seg Neuts % (Manual) Lymphocytes % (Manual) Seg Neutrophils # Man Lymphocytes # (Manual) PT INR APTT D-Dimer ABG pH POC ABG pCO2 POC ABG pO2 ABG pO2 66.6 L ABG HCO3 35.7 H ABG O2 Saturation ABG Base Excess 10.3 H ABG Hemoglobin 6.2 L ABG Oxyhemoglobin ABG Sodium ABG Potassium ABG Chloride ABG Glucose Oxyhemoglobin 94.7 L Carboxyhemoglobin Sodium Potassium Chloride Carbon Dioxide BUN Creatinine Glucose POC Glucose 252 H Lactic Acid Calcium Phosphorus Magnesium Ferritin Total Bilirubin Direct Bilirubin AST ALT Alkaline Phosphatase Lactate Dehydrogenase C-Reactive Protein NT-Pro-B Natriuret Pep Total Protein Albumin Lipase Arterial Blood Glucose Arterial Blood Ionized Calcium Ur Specific [place] Vancomycin Trough Coronavirus (PCR) 06/07/21 11:56 WBC RBC Hgb Hct MCV MCH RDW Plt Count Lymph % (Auto) Eos % (Auto) Lymph # (Auto) Eos # (Auto) Seg Neutrophils % Seg Neuts % (Manual) Lymphocytes % (Manual) Seg Neutrophils # Man Lymphocytes # (Manual) PT INR APTT D-Dimer ABG pH POC ABG pCO2 POC ABG pO2 ABG pO2 ABG HCO3 ABG O2 Saturation ABG Base Excess ABG Hemoglobin ABG Oxyhemoglobin ABG Sodium ABG Potassium ABG Chloride ABG Glucose Oxyhemoglobin Carboxyhemoglobin Sodium Potassium Chloride Carbon Dioxide BUN Creatinine Glucose POC Glucose 178 H Lactic Acid Calcium Phosphorus Magnesium Ferritin Total Bilirubin Direct Bilirubin AST ALT Alkaline Phosphatase Lactate Dehydrogenase C-Reactive Protein NT-Pro-B Natriuret Pep Total Protein Albumin Lipase Arterial Blood Glucose Arterial Blood Ionized Calcium Ur Specific [place] Vancomycin Trough Coronavirus (PCR) Chest x-ray: pending Allied health notes reviewed: nursing
--- NOTE | 2021-06-07 13:39 | XRay Report ---
CHEST - 1 VIEW 1252 hours INDICATION: Pneumothorax COMPARISON: Yesterday FINDINGS: Support devices: Stable support device positioning. Heart: Stable cardiomediastinal silhouette. Lungs/pleura: Diffuse bilateral lung infiltrates or congestive changes have improved slightly. No la rge pleural effusion or pneumothorax is detected. Additional findings: Diffuse chest wall subcutaneous emphysema has nearly resolved. IMPRESSION: Mild improvement as described. Signer Name: Valeriano Akins Jr, MD Signed: 06/07/2021 1:34 PM Workstation Name: [id number]
[2021-06-07] MEDS: fentaNYL DRIP Premix 2,000 MCG/100 ML BAG IV SCH ×2 (16:58)
--- NOTE | 2021-06-07 18:48 | Progress Note ---
Assessment and Plan Assessment and plan: This is a 48-year-old female with COPD, pancreatic cancer with radiation s/p pancreatic stent placement, pulmonary fibrosis, chronic respiratory failure on 2 L nasal cannula admitted with sepsis, transaminitis and lactic acidosis now with COVID 19 PNA. Neuro: Sedated -Sedated with propofol and fentanyl -RASS goal 0 to -1 -Avoid delirium -Reorientation as needed -Maintain sleep-wake cycle -Daily SAT and SBT when appropriate CV: Hypotension, h/o HTN -Hold home htn medications -s/p vasopressor support with levo -BP monitoring per protocol -Hold home htn medications -s/p IV Lasix X 3 days Respiratory: Acute on chronic respiratory failure, h/o pulmonary fibrosis, acute on chronic respiratory failure on home O2 of 2 L nasal cannula -Intubated on 06/02 with 7.5 oett with 22 @ lips -AM vent settings: AC Rate 25, PEEP 8, tidal volume 350, FiO2 80% -See RT note for titration -ABG and CXR per CCM -VAP bundle -s/p Bipap and Optiflow -Pulmicort, brovana -Daily SBT and SAT trials as tolerated -Continuos SPO2 monitoring -goal above 92% GI: Transaminitis, protein calorie malnutrition, biliary dilation, r/o cholangitis, h/o pancreatic cancer s/p stent placement -CT abdomen/pelvis showed pancreatic cancer with metallic stent with possible occlusion, mild pelvic fluid and mild colonic thickening -GI consulted, appreciate recommendations -MRCP pending-> plan for once respiratory status stable -If stent occlusion/biliary obstruction would recommend IR consult for PTC drain per GI -Ntr consult for TF -ST evaluation -PPI -BR: senokat -24-hour +785 mL -Decreasing urine output noted yesterday and today-> we will continue to monitor closely but remains off of Levophed -Acute hepatitis panel negative -Trend LFTs -Abd US shows findings similar to hepatomegaly and steatosis without significant abnormalities in the right quadrant -Bentyl QID : Urinary retention -Strict intake and output -Almaraz replaced 06/05 d/t retention -FWF reduced to original ntr orders -Daily weights -Renally dose meds -Avoid nephrotoxins -Repeat potassium -Trend BMP Endo: Hyperglycemia, s/p hypoglycemia -Hypoglycemia protocol -Avoid hypoglycemia -SSI every 6 hours -Lantus, titrate as needed ID: Septic shock, COVID 19 PNA, Lactic acidosis (improving), 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 -COVID 19 PCR (+), initial COVID 19 PCR (-) -Blood cultures x2 no growth to date -Remdisivir 06/03-06/06 -trend LFTS -Dexamethasone 05/28-06/07 -s/p IV meropenem -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 -ID aware, no need to treat per ID -Contact/droplet precautions -Monitor WBC and fever curve -Vitamin C/D/zinc -Trend COVID 19 inflammatory marker Heme: Elevated INR, thrombocytopenia, elevated ddimer -Trend CBC -Transfuse for hemoglobin less than 7 -SCD to bilateral lower extremities while in bed -Lovenox subcu->changed to arixta -BLE doppplar US negative for DVT -HIT pending -RUE swelling-> RUE doppler neg DVT Oncology: h/o pancreatic head cancer -F/U with outpatient oncologist -Currently on radiation -Not a surgical candidate per GI -Right chest post accessed The high probability of a clinically significant, sudden or life threatening deterioration of the [resp, GI] system(s) required my full and direct attention, intervention and personal management. The aggregate critical care time was [60] minutes. This time is in addition to time spent performing reported procedures but includes the following: [x] Data Review and interpretation [x] Patient assessment and monitoring of vital signs [x] Documentation [x] Medication orders and management Disposition Plan: icu Total Time Spent with Patient (Minutes): 60 History Interval history: This is a 51-year-old female with COPD, pancreatic cancer and radiation, s/p pancreatic stent placement, pulmonary fibrosis, hypertension and chronic respiratory failure on 2 L oxygen via nasal cannula who presented to emergency department on 05/11 with complaints of right upper quadrant pain which started approximately at 0200 with nausea and vomiting. Work-up in the emergency depar tment included a CTA chest which showed no pulmonary embolism, mild fluid-filled esophagus and distended stomach with bilateral interstitial opacity in the chest, and CT abdomen/pelvis with contrast which showed persistent pancreatic carcinoma with indwelling metallic stent which is suspected to be occluded. Lab work revealed leukocytosis, transaminitis and lactic acidosis. Patient became hypotensive in the emergency department and required 3 L of IV fluid and was eventually started on vasopressors after placement of femoral central line. Patient was started on empiric antibiotics. Admitted to the hospitalist service with consults to GI and CCM for transaminitis, possible sepsis, and lactic acidosis. she was set to discharge to hospice however she test positive to COVID 19 and was eventually intubated. 05/12: Patient remains on high-dose Levophed and vasopressin. Given 1 L LR bolu s. GI would like an MRCP to be conducted which has been ordered. Patient cleared for sips of water. Added Tessalon due to severe cough. Potassium repleted. Covid PCR negative. 05/13: Remains on Levophed and vasopressin has been off since yesterday evening. Started on stress dose steroids. MRCP pending. Hypokalemia, hypomagnesemia and hypophosphatemia repleted. Liver enzymes trending down. Started on D5 normal saline yesterday. 05/14: Patient with worsen respiratory status this am, tachypneic with increased O2 requirement. On full support on the Bipap this am with worsening diffuse bilateral opacities on CXR, s/p X1 dose of IV lasix overnight. Patient remains afebrile with no leukocytosis. Will continue IV Lasix X3 doses, f/u CXR in the am. D/W CCM due to patient worsening respiratory status hold on MRCP for today. Patient is off Levophed this am, leave pressors on standby might need to be put back on low dose pressors with IV diuretic. Patient also noted with Rt. fem CVC which was inserted in the ED, most likely due to be change, unsuccessfult PICC by IVT today and patient is refusing Port access at this time. 05/15: Patient remains on continuous Bipap overnight, desat when bipap is removed for mouth care. Plan to wean Fio2 as tolerated for SPO2 goal above 90%. Febrile overnight, TMAX 101.4, on IV abx zosyn, repeat blood culture ordered. Low K and phosph repleted, repeat labs in the am. 05/16: Patient back on full support on the Bipap, still not tolerating FiO2 wean, patient desat in the 80s. D/w CCM plan to continue continuous bipap for now, patient going on over 4 days with no nutrition plan to initiate TPN tomorrow. D10w gtt added for hypoglycemia. Patient platelet continue to steadily drop, given patient's history with continue AC for now, H&H is stable, no s/s of any active bleeding. Electrolytes repleted, will continue to trend CBC, BMP, mg, and phos. MRCP canceled, plan to reorder once patient's respiratory status is more stable. 05/17: Patient remains on continuous Bipap. Patient remains on low dose Levophed, plan to wean off pressors as tolerated for a MAP above 65. Clinimix initiated overnight, plan to start TPN tonight. Hyperglycemic overnight, SSI was initiated. Low phos repleted, repeat lab in the am. 05/18: Down to 60% FIo2 on the Bipap, SPO2 above 97%. Off pressros this am, TPN is running. Patient is now hyperglycemic, SSI adjusted. Consider basal dose, lantus if hyperglycemia persist. This am labs noted, hyperkalemia and really high glucose noted totally different from normal trend, orders placed for redraw. 05/19: Overnight events noted. Started on PRN haldol for agitation. Patient placed on heated high Flow at 100%, 40L SPO2 at 100%. Continue to wean Fio2 as tolerated for SPO2 for SPO2 above 92%. Continue TPN for now. Patient still hyperglycemic basal dose lantus added Qhs. 05/20: Patient is tolerating HHFL NC, SPO2 above 95%. Continue HHFL NC during and Bipap at night. Still on TPN for nutrition, hyperglycemia persists- basal insulin increased. Low K and phosp was repleted, repeat lab in the am. 05/21: Patient unable to tolerate OptiFlow for more than couple hours and was placed back on BiPAP due to desaturation. Patient remains on TPN for nutrition which was held today due to hyperkalemia. P.m. BMP ordered but not collected. Patient refused to have port accessed and PICC line ordered. Down grading to [facility] status 05/22: abdominal ultrasound shows findings of emergency megaly and steatosis without other significant abnormality in the right upper quadrant. ST eval ordered and Ntr consult for cyclic TF. midline ordered 05/21 abdominal ultrasound shows findings of emergency megaly and steatosis without other significant abnormality in the right upper quadrant. ST eval ordered and Ntr consult for cyclic TF. midline ordered 05/23/ Patient with acute on chronic resp failure, COPD, pancreatic cancer. She has been transferred to [facility]. She is on BIPAP Hypomag. Replace and recheck in am 05/24/21 Patient with acute on chronic resp failure. Still on BIPAP. To start tube feeding 05/25/21: Patient with acute on chronic respiratory failure, She desaturated down to Oxygen sat 85% today, Will order CT Angio to r/o pulmonary embolism 05/26/21: patient remains on bipap, o2 sat in 90s. CT angio not completed yesterday as patient could not lay flat. Add dilaudid for improved pain control to patient medications and advised staff home therapy rn to re-attempt CT angio. Patient has a poor prognosis given pulmonary fibrosis and pancreatic cancer. Will likely re- visit talks of palliaitive care as she may benefit more from this. 05/27/21: Remains bipap dependent. D/w patient regarding comfort care/hospice, she is interested. CM consulted. Patient would still like to remain full code 05/28/21: Remains bipap dependent. Spoke with Eriberto (daughter) who states that she is in agreement for comfort measures for her mother. Coordinating with case management for inpatient hospice referral. Daughter also requested to see her mother in person. Unfortunately due to visitation limitations as a result of th e COVID-19 pandemic, daughter will only be able to communicate via telecommunication devices at this time. Care staff was notified the patient is Chinese-speaking and to call the daughter if they would like to communicate with the patient. 05/29/2021: Spoke with Eriberto (daughter) who states that she is in agreement for comfort measures for her mother. Referral made to [facility] Vikram feliz. Patient will discharge to inpatient hospice today. 05/30/2021: Patient's covid test results returned positive. Patient's pending discharge was cancelled as inpatient hospice will not accept a covid + patient. Case Management met with patient's daughter to update on status. Patient's prognosis remains poor. Patient on BiPAP (IPAP 15, EPAP 10, FiO2 85%). Patient started on steroids yesterday and we will start remdesivir today. I discussed the case with pulmonary. Patient will remain a full code I discussed the case with the daughter. 05/31/2021: Patient remains on BiPAP (IPAP 15, EPAP 10, FiO2 80%). Patient's prognosis remains poor. Continue steroids and remdesivir. 06/01/2021. Patient currently off BiPAP and with high flow nasal cannula/nonrebreather 40 L O2 with FiO2 of 100%. Continue BiPAP at night. Patient will be intubated and placed on mechanical ventilation if she decompensates. Patient's prognosis remains poor. Continue steroids and remdesivir. Pulmonary Taper dexamethasone to 4 mg IV daily. Follow-up serial chest x-ray and ABGs. Patient with gentle diuresis with Lasix 20 mg IV daily. 06/02: Patient intubated and sedated, RASS -5. Now hypotensive with tachycardia, on levophed gtt, continue continuous IVF and titrate pressors for MAP above 65. Hypokalemia and hypomagnesemia repleted, repeat labs 4hrs post treatment. Severely hypoglycemic this am, per RN TF has been on hold since patient was on Bipap. Low BG treated per hypoglycemic protocol, plan to resume TF today. 06/03: RASS of 0 to -1 this am, following commands, remains on sedation. Mirza in WBCs this am, patient remains afebrile, blood culture and sputum culture pending. Probably reactive, patient on IV steroids, remdesevir starting tonight. Continue to trend CBC. Conference call with [facility] and patient's son and daughter today. All questions and concerns were addressed. 06/04: started on stress dose steroids, BLE dopplars pending, Remove almaraz and request records. 06/05: HIT panel sent today, started Arixtra, decrease free water flush, almaraz replaced re retention, Will not treat gram-negative in tracheal aspirate until speciation given normal WBCs and afebrile state. increase in the long acting insulin. Levophed titrated off 06/06: Noted to have subcutaneous air and his stat CXR showed no pneumothorax, vent changes per [facility]. Hypokalemia which was repleted. Right upper extremity Doppler ultrasound obtained due to swelling but shows no DVT 06/07: No acute events reported overnight. Sedation increased today due to tachypnea. Hospitalist Physical - Physical exam Narrative exam: - EENT Eyes: Present: PERRL, EOM intact ENT: clear oral mucosa, dentition normal - Neck Neck: Present: normal ROM - Respiratory Respiratory effort: normal Respiratory: bilateral: diminished - Cardiovascular Rhythm: regular Heart Sounds: Present: S1 & S2. Absent: systolic murmur, diastolic murmur - Extremities Extremities: no ischemia, pulses intact, pulses symmetrical, normal temperature, normal color Extremity abnormal: edema (Right upper extremity), other Peripheral Pulses: within normal limits - Abdominal General gastrointestinal: soft, non-tender, non-distended, normal bowel sounds - Integumentary Integumentary: Present: warm (Subcutaneous air chest/neck), dry - Psychiatric Psychiatric: other (Sedated) - Neurologic Neurologic: other (Intact cough/gag, pupils equal round reactive) - Allied Health Allied health notes reviewed: nursing, RT, social work - Constitutional Vitals: Temp Pulse Resp BP Pulse Ox 99.5 F 118 H 28 H 113/60 96 06/07/21 16:00 06/07/21 17:30 06/07/21 17:30 06/07/21 17:30 06/07/21 17:30 General appearance: Present: no acute distress, other (Intubated and Sedated) Results - Labs CBC & Chem 7: 06/07/21 04:36 06/07/21 04:36 Labs: Laboratory Last Values WBC 8.0 K/mm3 (4.5-11.0) 06/07/21 04:36 RBC 3.31 M/mm3 (3.65-5.03) L 06/07/21 04:36 Hgb 10.5 gm/dl (10.1-14.3) 06/07/21 04:36 Hct 32.8 % (30.3-42.9) 06/07/21 04:36 MCV 99 fl (79-97) H 06/07/21 04:36 MCH 32 pg (28-32) 06/07/21 04:36 MCHC 32 % (30-34) 06/07/21 04:36 RDW 23.9 % (13.2-15.2) H 06/07/21 04:36 Plt Count 133 K/mm3 (140-440) L 06/07/21 04:36 Lymph % (Auto) 12.8 % (13.4-35.0) L 06/02/21 08:59 Gilchrist % (Auto) 1.0 % (0.0-7.3) 06/02/21 08:59 Eos % (Auto) 10.2 % (0.0-4.3) H 06/02/21 08:59 Baso % (Auto) 0.5 % (0.0-1.8) 06/02/21 08:59 Lymph # (Auto) 0.6 K/mm3 (1.2-5.4) L 06/02/21 08:59 Gilchrist # (Auto) 0.0 K/mm3 (0.0-0.8) 06/02/21 08:59 Eos # (Auto) 0.5 K/mm3 (0.0-0.4) H 06/02/21 08:59 Baso # (Auto) 0.0 K/mm3 (0.0-0.1) 06/02/21 08:59 Add Manual Diff Complete 05/12/21 04:08 Total Counted 200 05/12/21 04:08 Seg Neutrophils % 75.5 % (40.0-70.0) H 06/02/21 08:59 Seg Neuts % (Manual) 85.5 % (40.0-70.0) H 05/12/21 04:08 Band Neutrophils % 8.5 % 05/12/21 04:08 Lymphocytes % (Manual) 2.0 % (13.4-35.0) L 05/12/21 04:08 Monocytes % (Manual) 3.0 % (0.0-7.3) 05/12/21 04:08 Eosinophils % (Manual) 1.0 % (0.0-4.3) 05/12/21 04:08 Nucleated RBC % Not Reportable 05/12/21 04:08 Seg Neutrophils # 3.6 K/mm3 (1.8-7.7) 06/02/21 08:59 Seg Neutrophils # Man 19.5 K/mm3 (1.8-7.7) H 05/12/21 04:08 Band Neutrophils # 1.9 K/mm3 05/12/21 04:08 Lymphocytes # (Manual) 0.5 K/mm3 (1.2-5.4) L 05/12/21 04:08 Abs React Lymphs (Man) 0.0 K/mm3 05/12/21 04:08 Monocytes # (Manual) 0.7 K/mm3 (0.0-0.8) 05/12/21 04:08 Eosinophils # (Manual) 0.2 K/mm3 (0.0-0.4) 05/12/21 04:08 Basophils # (Manual) 0.0 K/mm3 (0.0-0.1) 05/12/21 04:08 Metamyelocytes # 0.0 K/mm3 05/12/21 04:08 Myelocytes # 0.0 K/mm3 05/12/21 04:08 Promyelocytes # 0.0 K/mm3 05/12/21 04:08 Blast Cells # 0.0 K/mm3 05/12/21 04:08 WBC Morphology Not Reportable 05/12/21 04:08 Hypersegmented Neuts Not Reportable 05/12/21 04:08 Hyposegmented Neuts Not Reportable 05/12/21 04:08 Hypogranular Neuts Not Reportable 05/12/21 04:08 Smudge Cells Not Reportable 05/12/21 04:08 Toxic Granulation Not Reportable 05/12/21 04:08 Toxic Vacuolation Not Reportable 05/12/21 04:08 Dohle Bodies Not Reportable 05/12/21 04:08 Pelger-Huet Anomaly Not Reportable 05/12/21 04:08 Elizabeth Rods Not Reportable 05/12/21 04:08 Platelet Estimate Consistent w auto 05/12/21 04:08 Clumped Platelets Not Reportable 05/12/21 04:08 Plt Clumps, EDTA Not Reportable 05/12/21 04:08 Large Platelets Not Reportable 05/12/21 04:08 Giant Platelets Not Reportable 05/12/21 04:08 Platelet Satelliting Not Reportable 05/12/21 04:08 Plt Morphology Comment Not Reportable 05/12/21 04:08 RBC Morphology Not Reportable 05/12/21 04:08 Dimorphic RBCs Not Reportable 05/12/21 04:08 Polychromasia Not Reportable 05/12/21 04:08 Hypochromasia Not Reportable 05/12/21 04:08 Poikilocytosis Not Reportable 05/12/21 04:08 Anisocytosis 1+ 05/12/21 04:08 Microcytosis Not Reportable 05/12/21 04:08 Macrocytosis Not Reportable 05/12/21 04:08 Spherocytes Not Reportable 05/12/21 04:08 Pappenheimer Bodies Not Reportable 05/12/21 04:08 Sickle Cells Not Reportable 05/12/21 04:08 Target Cells Not Reportable 05/12/21 04:08 Tear Drop Cells Not Reportable 05/12/21 04:08 Ovalocytes Not Reportable 05/12/21 04:08 Helmet Cells Not Reportable 05/12/21 04:08 Sibley-Prosser Bodies Not Reportable 05/12/21 04:08 [place] Rings Not Reportable 05/12/21 04:08 [place] Cells Not Reportable 05/12/21 04:08 Bite Cells Not Reportable 05/12/21 04:08 Crenated Cell Not Reportable 05/12/21 04:08 Elliptocytes Not Reportable 05/12/21 04:08 Acanthocytes (Spur) Not Reportable 05/12/21 04:08 Rouleaux Not Reportable 05/12/21 04:08 Hemoglobin C Crystals Not Reportable 05/12/21 04:08 Schistocytes Not Reportable 05/12/21 04:08 Malaria parasites Not Reportable 05/12/21 04:08 Tahir Bodies Not Reportable 05/12/21 04:08 Hem Pathologist Commnt No 05/12/21 04:08 PT 15.9 Sec. (12.2-14.9) H 06/05/21 06:00 INR 1.15 (0.87-1.13) H 06/05/21 06:00 APTT 37.1 Sec. (24.2-36.6) H 06/05/21 06:00 D-Dimer 1938.43 ng/mlDDU (0-234) H 06/07/21 04:36 ABG pH 7.426 pH Units (7.350-7.450) 06/07/21 10:50 POC ABG pCO2 59.5 mmHg (32.0-48.0) H 06/06/21 21:00 ABG pCO2 55.5 mm Hg 06/07/21 10:50 POC ABG pO2 52.1 mmHg (83-108) L 06/06/21 21:00 ABG pO2 66.6 mm Hg (80.0-90.0) L 06/07/21 10:50 POC ABG HCO3 33.2 06/06/21 21:00 ABG HCO3 35.7 mmol/L (20.0-26.0) H 06/07/21 10:50 ABG O2 Saturation 97.5 % (95.0-99.0) 06/07/21 10:50 ABG O2 Content 8.3 (0.0-44) 06/07/21 10:50 POC ABG Base Excess 6.3 06/06/21 21:00 ABG Base Excess 10.3 mmol/L (-2.0-3.0) H 06/07/21 10:50 ABG Hemoglobin 6.2 gm/dl (12.0-16.0) L 06/07/21 10:50 ABG Oxyhemoglobin 84.0 (94-98) L 06/06/21 21:00 ABG Carboxyhemoglobin 2.3 % (0.0-5.0) 06/07/21 10:50 ABG Methemoglobin 0.5 % (0.0-1.5) 06/07/21 10:50 ABG Sodium 134.6 mmol/L (136.0-145.0) L 06/06/21 21:00 ABG Potassium 3.9 mmol/L (3.40-4.50) 06/06/21 21:00 ABG Chloride 98.0 mmol/L (98-107) 06/06/21 21:00 ABG Glucose 206 mg/dL (65-95) H 06/06/21 21:00 Oxyhemoglobin 94.7 % (95.0-99.0) L 06/07/21 10:50 Carboxyhemoglobin 1.3 (0.5-1.5) 06/06/21 21:00 FiO2 80 % 06/07/21 10:50 FiO2 % 70.0 06/06/21 21:00 Sodium 139 mmol/L (137-145) 06/07/21 04:36 Potassium 3.6 mmol/L (3.6-5.0) 06/07/21 04:36 Chloride 98.2 mmol/L (98-107) 06/07/21 04:36 Carbon Dioxide 31 mmol/L (22-30) H 06/07/21 04:36 Anion Gap 13 mmol/L 06/07/21 04:36 BUN 15 mg/dL (7-17) 06/07/21 04:36 Creatinine 0.3 mg/dL (0.6-1.2) L 06/07/21 04:36 Estimated GFR > 60 ml/min 06/07/21 04:36 BUN/Creatinine Ratio 50 % 06/07/21 04:36 Glucose 234 mg/dL (65-100) H 06/07/21 04:36 POC Glucose 190 mg/dL (70-105) H 06/07/21 16:21 Hemoglobin A1c 5.2 % (4-6) 05/12/21 04:08 Lactic Acid 3.30 mmol/L (0.7-2.0) H* 05/12/21 Unknown Calcium 8.5 mg/dL (8.4-10.2) 06/07/21 04:36 Phosphorus 2.40 mg/dL (2.5-4.5) L 06/07/21 04:36 Magnesium 1.70 mg/dL (1.7-2.3) 06/07/21 04:36 Ferritin 1287.0 ng/mL (10.0-200.0) H 06/07/21 04:36 Total Bilirubin 0.80 mg/dL (0.1-1.2) 06/06/21 05:26 Direct Bilirubin 1.6 mg/dL (0-0.2) H 05/23/21 10:15 Indirect Bilirubin 0.7 mg/dL 05/23/21 10:15 AST 25 units/L (5-40) 06/06/21 05:26 ALT 42 units/L (7-56) 06/06/21 05:26 Alkaline Phosphatase 207 units/L (35-129) H 06/06/21 05:26 Lactate Dehydrogenase 270 units/L (91-180) H 06/07/21 04:36 C-Reactive Protein 26.70 mg/dL (0.00-1.30) H 06/07/21 04:36 NT-Pro-B Natriuret Pep 2326 pg/mL (0-900) H 06/02/21 22:00 Total Protein 5.5 g/dL (6.3-8.2) L 06/06/21 05:26 Albumin 2.0 g/dL (3.9-5) L 06/06/21 05:26 Albumin/Globulin Ratio 0.6 % 06/06/21 05:26 Triglycerides 95 mg/dL (2-149) 06/07/21 04:36 Lipase 3 units/L (13-60) L 05/11/21 05:43 Arterial Blood Glucose 206 mg/dL (65-95) H 06/06/21 21:00 Arterial Blood Ionized Calcium 4.5 mg/dL (4.6-5.3) L 06/06/21 09:00 Urine Color Deisi (Yellow) 05/11/21 11:18 Urine Turbidity Clear (Clear) 05/11/21 11:18 Urine pH 6.0 (5.0-7.0) 05/11/21 11:18 Ur Specific [place] 1.035 (1.003-1.030) H 05/11/21 11:18 Urine Protein 100 mg/dl mg/dL (Negative) 05/11/21 11:18 Urine Glucose (UA) Neg mg/dL (Negative) 05/11/21 11:18 Urine Ketones Neg mg/dL (Negative) 05/11/21 11:18 Urine Blood Neg (Negative) 05/11/21 11:18 Urine Nitrite Neg (Negative) 05/11/21 11:18 Urine Bilirubin Neg (Negative) 05/11/21 11:18 Urine Urobilinogen < 2.0 mg/dL (<2.0) 05/11/21 11:18 Ur Leukocyte Esterase Neg (Negative) 05/11/21 11:18 Urine WBC (Auto) 2.0 /HPF (0.0-6.0) 05/11/21 11:18 Urine RBC (Auto) 1.0 /HPF (0.0-6.0) 05/11/21 11:18 Urine Mucus Few /HPF 05/11/21 11:18 Vancomycin Trough 25.3 ug/mL (5.0-20.0) H 05/14/21 15:20 Coronavirus (PCR) Positive (Negative) A 05/29/21 08:20 Hepatitis A IgM Ab Non-reactive (NonReactive) 05/12/21 12:30 Hep Bs Antigen Nonreactive (Negative) 05/12/21 12:30 Hep B Core IgM Ab Non-reactive (NonReactive) 05/12/21 12:30 Hepatitis C Antibody Non-reactive (NonReactive) 05/12/21 12:30 Microbiology: Microbiology 06/03/21 00:41 Tracheal Aspirate Sputum Culture - Final Stenotrophomonas Maltophilia Almaraz/IV: Voiding Method Indwelling Catheter Active Medications - Current Medications Current Medications: Generic Name Dose Route Start Last Admin Trade Name Freq PRN Reason Stop Dose Admin Acetaminophen 650 mg 05/11/21 21:40 05/14/21 20:06 Acetaminophen 325 Mg Tab PO 650 mg Q4H PRN Administration Pain MILD(1-3)/Fever >100.5/WOODS Lipase/Protease/Amylase 1 each 05/22/21 16:30 Lipase 10,500/Protease 25,000/Amylase 43,750 (Units) Dr Baker FEEDTUBE PRN PRN For Clogged Feeding Tube Arformoterol Tartrate 15 mcg 05/12/21 08:00 06/07/21 11:43 Arformoterol 15 Mcg/2 Ml Nebu IH 15 mcg Q12HRT ABRAHAN Administration Ascorbic Acid 500 mg 06/02/21 22:00 06/07/21 11:06 Ascorbic Acid 500 Mg Tab PO 500 mg BID ABRAHAN Administration Budesonide 0.5 mg 05/12/21 08:00 06/07/21 11:43 Budesonide 0.5 Mg/2 Ml Nebu IH 0.5 mg Q12HRT ABRAHAN Administration Dextrose 50 ml 05/12/21 11:57 06/02/21 18:34 Dextrose 50% In Water (25gm) 50 Ml Syringe IV 50 ml Q30MIN PRN Administration Hypoglycemia Protocol Dicyclomine HCl 10 mg 05/23/21 14:00 06/07/21 17:01 Dicyclomine 10 Mg Cap PO 10 mg QID ABRAHAN Administration Fentanyl 50 mcg 06/02/21 05:20 Fentanyl 100 Mcg/2 Ml Inj IV Q10MIN PRN ANALGESIA Fondaparinux 2.5 mg 06/05/21 22:00 06/06/21 21:25 Fondaparinux 2.5 Mg/0.5 Ml Inj SUB-Q 2.5 mg QDAY@2200 ABRAHAN Administration Haloperidol Lactate 5 mg 05/19/21 15:00 06/01/21 21:04 Haloperidol Lactate 5 Mg/1 Ml Inj IV 5 mg Q8H PRN Administration Agitation Hydrocortisone Sodium Succinate 100 mg 06/04/21 14:00 06/07/21 13:45 Hydrocortisone Sod Succ 100 Mg/2 Ml Vial IV 100 mg Q8HR ABRAHAN Administration Hydrophilic Ointment 1 applic 06/02/21 17:44 Lip Therapy Vaseline TP Q2HR PRN Dry Lips NORepinephrine/NS 8 MG-250 ML 8 mg in 250 mls @ 3.75 mls/hr 06/02/21 06:00 06/05/21 01:49 Norepinephrine/Ns 8 Mg-250 Ml (Double Conc) IV 0 mcg/min TITRATE ABRAHAN 0 mls/hr Titration Protocol 2 MCG/MIN Propofol 1,000 mg in 100 mls @ 1.932 mls/hr 06/02/21 06:00 06/07/21 13:47 Diprivan 10 Mg/Ml IV 25 mcg/kg/min TITR ABRAHAN 9.66 mls/hr Administration Protocol 5 MCG/KG/MIN Fentanyl Citrate 2,000 mcg in 100 mls @ 3.22 mls/hr 06/02/21 06:00 06/07/21 16:58 Fentanyl Drip Premix IV 3 mcg/kg/hr TITR ABRAHAN 9.66 mls/hr Administration Protocol 1 MCG/KG/HR Insulin Human Lispro 0 unit 05/17/21 12:00 06/07/21 13:45 Insulin Lispro 100 Unit/Ml SUB-Q 3 unit Q6HR ABRAHAN Administration Protocol Lansoprazole 30 mg 05/28/21 10:00 06/07/21 11:06 Lansoprazole 30 Mg Solutab FEEDTUBE 30 mg QDAY ABRAHAN Administration Metoclopramide HCl 10 mg 05/11/21 21:40 Metoclopramide 10 Mg/2 Ml Inj IV Q6H PRN Nausea And Vomiting Multi-Ingred Cream/Lotion/Oil/Oint 1 applic 06/02/21 17:44 Mineral Oil/Petrolatum, White Ophth Oint 3.5 Gm OU Q4HR PRN Dry Eye(s) Ondansetron HCl 4 mg 05/11/21 21:40 05/15/21 09:57 Ondansetron 4 Mg/2 Ml Inj IV 4 mg Q8H PRN Administration Nausea And Vomiting Senna/Docusate Sodium 1 tab 06/02/21 22:00 06/07/21 11:06 Sennosides/Docusate Sodium 8.6/50 Mg Tab FEEDTUBE 1 tab BID ABRAHAN Administration Simple Syrup 15 ml 05/22/21 16:30 Simple Syrup 15 Ml FEEDTUBE PRN PRN Hypoglycemia Simple Syrup 30 ml 05/22/21 16:30 Simple Syrup 15 Ml FEEDTUBE PRN PRN Hypoglycemia Sodium Bicarbonate 325 mg 05/22/21 16:30 Sodium Bicarbonate 325 Mg Tab FEEDTUBE PRN PRN For Clogged Feeding Tube Sodium Chloride 10 ml 05/11/21 22:00 06/07/21 11:07 Sodium Chloride 0.9% 10 Ml Flush Syringe IV 10 ml BID ABRAHAN Administration Sodium Chloride 10 ml 05/11/21 21:40 05/23/21 21:00 Sodium Chloride 0.9% 10 Ml Flush Syringe IV 10 ml PRN PRN Administration LINE FLUSH Zinc Sulfate 220 mg 06/02/21 22:00 06/07/21 11:06 Zinc Sulfate 220 Mg Cap PO 220 mg BID ABRAHAN Administration Nutrition/Malnutrition Assess - Dietary Evaluation Nutrition/Malnutrition Findings: Nutrition Notes Start: 05/13/21 09:47 Freq: Status: Active Protocol: Document 06/01/21 12:45 MARITZA (Rec: 06/01/21 12:49 MARITZA [id number]) Nutrition Notes Initial or Follow up Reassessment Current Diagnosis COPD,Respiratory Failure Other Pertinent Diagnosis COVID-19 (+), Pancreatic CA, pulmonary fibrosis Current Diet TF - Glucerna 1.2 at 50ml/hr Labs/Tests Reviewed Pertinent Medications Reviewed Height 5 ft 2 in Weight 64.4 kg [place] Body Weight (kg) 50.00 BMI 25.9 Weight Status Appropriate Subjective/Other Information Pt tolerating Glucerna 1.2 at goal rate. She remains on BiPap support. Referral made to [facility] hospice. Percent of energy/protein needs met: 100% energy and pro Burn Absent Trauma Absent #2 Nutrition Diagnosis Malnutrition Diagnosis Progress(for reassessment Continues documentation) Is patient on ventilator? No Is Patient Ambulatory and/or Out of Bed No REE-([place]-St. Jeor-confined to bed) 1447.020 Calculation Used for Recommendations [place]-St Jeor Additional Notes Pro needs 1-1.2g/k-77g/ day Fluid needs 1ml/kcal Nutrition Intervention Nutrition Support: Continue Glucerna 1.2 at 50ml/ hr with 80ml water flush q4h. Kcal 1,440 Protein (gm) 72 Carbohydrates (gm) 137 Fat (gm) 72 Fluid (mL) 966 Fiber (gm) 19 Goal #1 TF tolerance Goal #2 TF to meet at least 75% energy and pro needs Follow-Up By: 06/08/21 Additional Comments F/U: stable TF, resp status, wt
[2021-06-07] MEDS: FONDAPARINUX 2.5 MG/0.5 ML INJ SUB-Q SCH (21:02)
[2021-06-08] MEDS: INSULIN LISPRO 100 UNIT/ML SUB-Q SCH ×4 (00:41→19:33)
[2021-06-08] MEDS: FREE WATER PO SCH ×6 (02:40→21:30)
[2021-06-08] MEDS: fentaNYL DRIP Premix 2,000 MCG/100 ML BAG IV SCH ×3 (04:17→23:10)
[2021-06-08 06:00] LABS: Hematocrit 29.9 % (30.3-42.9); Hemoglobin 9.4 gm/dl (10.1-14.3); Mean Corpuscular HGB Conc 31 % (30-34); Mean Corpuscular Volume 99 fl (79-97); Platelet Count 147 K/mm3 (140-440); Red Blood Count 3.02 M/mm3 (3.65-5.03)
[2021-06-08 06:01] LABS: Blood Urea Nitrogen 28 mg/dL (7-17); Calcium 8.2 mg/dL (8.4-10.2); Hemolysis Index 34
[2021-06-08 06:02] LABS: BUN/Creatinine Ratio 70
[2021-06-08 06:07] LABS: Red Cell Distribution Width 24.5 % (13.2-15.2)
[2021-06-08] MEDS: HYDROCORTISONE SOD SUCC 100 MG/2 ML VIAL IV SCH ×3 (06:26→21:27)
[2021-06-08] MEDS: ARFORMOTEROL 15 MCG/2 ML NEBU IH SCH ×2 (07:38→20:46)
[2021-06-08] MEDS: BUDESONIDE 0.5 MG/2 ML NEBU IH SCH ×2 (07:38→20:46)
[2021-06-08] MEDS: ASCORBIC ACID 500 MG TAB PO SCH ×2 (10:29→21:27)
[2021-06-08] MEDS: LANSOPRAZOLE 30 MG SOLUTAB FEEDTUBE SCH (10:30)
[2021-06-08] MEDS: DICYCLOMINE 10 MG CAP PO SCH ×4 (10:30→21:27)
[2021-06-08] MEDS: ZINC SULFATE 220 MG CAP PO SCH ×2 (10:30→21:29)
[2021-06-08] MEDS: SENNOSIDES/DOCUSATE SODIUM 8.6/50 MG TAB FEEDTUBE SCH ×2 (10:31→21:29)
[2021-06-08] MEDS: NORepinephrine/NS 8 MG-250 ML 8 MG/250 ML INFUS..BTL IV SCH (11:30)
[2021-06-08] MEDS: METOCLOPRAMIDE 10 MG/2 ML INJ IV SCH ×2 (13:24→18:37)
--- NOTE | 2021-06-08 14:47 | Progress Note ---
Assessment and Plan Septic shock possible hepatobiliary source Lactic acidosis h/o pulmonary fibrosis, Acute on chronic respiratory failure on home O2 of 2 L nasal cannula Transaminitis, biliary dilation, r/o cholangitis Hyperchloremia, metabolic acidosis, hypokalemia Hypoglycemia h/o pancreatic head cancer- chemoradiation therapy h/o Hypertension Thrombocytopenia - am CXR ordered - continue current vent settings (keep peep at 8 re: barotrauma) - upper extremity dopplers negative - resumed Levophed for target MAP > 65 mmHg - continue Arixtra for DVT prophylaxis - continue care as below otherwise; - prn diuresis - continue daily SAT and SBT assessment as tolerated - sedation prn for target RASS 0 to -1 - VAP bundle addressed - continue lung protective strategies - continue bronchodilators with pulmonary hygiene per RT - wean per pulmonary driven protocols otherwise - MRCP pending as she remains tenuous from a respiratory standpoint - continue anti-infective's; de-escalate per ID recommendations - accuchecks with glycemic control per SSI (While critically ill target blood glucose of 140-180 mg/dL; avoid hypoglycemia) - wean supplemental oxygen for target O2 sat's > 90% acutely - aspiration precautions - avoid nephrotoxins, renally dose all medications - prn analgesia per pain score - Maintenance of sleep-wake cycle, avoid delirium - G.I. & VTE prophylaxis - PT/OT/ROM exercises - mobility protocols for pressure ulcer prophylaxis - Monitor hemodynamics closely - continue other care per attending / other consultants - discharge planning ongoing concurrently COVID SPECIFIC INTERVENTIONS - Remdesivir as per ID/Pulmonary developed protocols (ordered) - continue systemic steroids for severe COVID-19 infection empirically (on Solucortef) - follow repeat COVID tests results - zinc and vitamin C supplementation (ordered) - Monitor inflammatory markers per facility protocol - ferritin, Ddimer, CRP - therapeutic anticoagulation per system Protocol based on d-dimer and clinical considerations (DVT prophylaxis) - Contact and airborne isolation .... Re-evaluate in am & prn CONDITION: CRITICAL PROGNOSIS: GUARDED CODE STATUS: FULL CODE The high probability of a clinically significant, sudden or life-threatening deterioration of the [respiratory, cardiovascular, GI & neurologic] system(s) required my full and direct attention, intervention and personal management. The aggregate critical care time was [32] minutes without overlap. Time includes spent on; [x] Data Review and interpretation [x] Patient assessment and monitoring of vital signs [x] Documentation [x] Medication orders and management Subjective Date of service: 06/08/21 Principal diagnosis: Septic shock; Pulm fibrosis; Hypoxemic resp failure; COVID- 19 infxn Interval history: Patient is seen today for: Septic shock; pulmonary fibrosis; Acute on chronic hypoxemic respiratory failure; Transaminitis; h/o pancreatic head cancer; HTN Seen and examined at bedside; 24hour events reviewed; nursing and respiratory care staff consulted; no adverse overnight events reported to me; resting in bed; remains on MVS; tube feeds held overnight due to high residuals; remains w ith ARDS; SQ emphysema is improved though but PIP's & P-plat on high side Objective Vital Signs - 12hr 06/08/21 06/08/21 06/08/21 03:00 03:15 03:30 Temperature Pulse Rate 100 H 98 H 102 H Pulse Rate [ Bilateral Throughout] Pulse Rate [ From Monitor] Respiratory 18 18 21 Rate Respiratory Rate [Bilateral Throughout] Blood Pressure 104/57 103/64 107/60 O2 Sat by Pulse 89 95 84 Oximetry 06/08/21 06/08/21 06/08/21 03:45 04:00 04:15 Temperature 98.6 F Pulse Rate 97 H 101 H 102 H Pulse Rate [ Bilateral Throughout] Pulse Rate [ 91 H From Monitor] Respiratory 17 23 21 Rate Respiratory Rate [Bilateral Throughout] Blood Pressure 96/61 96/61 115/69 O2 Sat by Pulse 97 95 95 Oximetry 06/08/21 06/08/21 06/08/21 04:30 04:45 05:00 Temperature Pulse Rate 96 H 100 H 106 H Pulse Rate [ Bilateral Throughout] Pulse Rate [ From Monitor] Respiratory 17 16 25 H Rate Respiratory Rate [Bilateral Throughout] Blood Pressure 105/59 106/69 110/65 O2 Sat by Pulse 95 95 96 Oximetry 06/08/21 06/08/21 06/08/21 05:15 05:30 05:45 Temperature Pulse Rate 98 H 97 H 94 H Pulse Rate [ Bilateral Throughout] Pulse Rate [ From Monitor] Respiratory 20 25 H 24 Rate Respiratory Rate [Bilateral Throughout] Blood Pressure 94/55 94/53 87/53 O2 Sat by Pulse 97 97 96 Oximetry 06/08/21 06/08/21 06/08/21 06:00 06:15 06:30 Temperature Pulse Rate 97 H 84 86 Pulse Rate [ Bilateral Throughout] Pulse Rate [ From Monitor] Respiratory 20 17 24 Rate Respiratory Rate [Bilateral Throughout] Blood Pressure 96/52 89/53 78/52 O2 Sat by Pulse 96 98 99 Oximetry 06/08/21 06/08/21 06/08/21 06:45 07:00 07:15 Temperature Pulse Rate 83 82 82 Pulse Rate [ Bilateral Throughout] Pulse Rate [ From Monitor] Respiratory 18 21 17 Rate Respiratory Rate [Bilateral Throughout] Blood Pressure 83/51 83/55 84/51 O2 Sat by Pulse 98 97 97 Oximetry 06/08/21 06/08/21 06/08/21 07:30 07:38 07:45 Temperature Pulse Rate 88 81 68 Pulse Rate [ 77 Bilateral Throughout] Pulse Rate [ From Monitor] Respiratory 19 22 Rate Respiratory 25 H Rate [Bilateral Throughout] Blood Pressure 94/54 94/54 98/54 O2 Sat by Pulse 97 98 93 Oximetry 06/08/21 06/08/21 06/08/21 08:00 08:15 08:30 Temperature 97.9 F Pulse Rate 78 74 75 Pulse Rate [ Bilateral Throughout] Pulse Rate [ 78 From Monitor] Respiratory 23 22 17 Rate Respiratory Rate [Bilateral Throughout] Blood Pressure 85/49 87/51 91/52 O2 Sat by Pulse 94 94 88 Oximetry 06/08/21 06/08/21 06/08/21 08:45 09:00 09:15 Temperature Pulse Rate 75 76 77 Pulse Rate [ Bilateral Throughout] Pulse Rate [ From Monitor] Respiratory 19 19 15 Rate Respiratory Rate [Bilateral Throughout] Blood Pressure 89/55 95/50 92/50 O2 Sat by Pulse 92 93 90 Oximetry 06/08/21 06/08/21 06/08/21 09:30 09:45 10:00 Temperature Pulse Rate 79 80 77 Pulse Rate [ Bilateral Throughout] Pulse Rate [ From Monitor] Respiratory 17 18 17 Rate Respiratory Rate [Bilateral Throughout] Blood Pressure 90/48 89/47 94/50 O2 Sat by Pulse 94 95 97 Oximetry 06/08/21 06/08/21 06/08/21 10:15 10:30 10:45 Temperature Pulse Rate 81 76 75 Pulse Rate [ Bilateral Throughout] Pulse Rate [ From Monitor] Respiratory 17 15 20 Rate Respiratory Rate [Bilateral Throughout] Blood Pressure 85/53 94/54 86/48 O2 Sat by Pulse 97 96 Oximetry 06/08/21 06/08/21 06/08/21 11:00 11:15 11:30 Temperature Pulse Rate 73 78 80 Pulse Rate [ Bilateral Throughout] Pulse Rate [ From Monitor] Respiratory 15 20 18 Rate Respiratory Rate [Bilateral Throughout] Blood Pressure 86/51 80/50 68/47 O2 Sat by Pulse 97 92 86 Oximetry 06/08/21 06/08/21 06/08/21 11:45 12:00 12:15 Temperature 98.1 F Pulse Rate 88 78 91 H Pulse Rate [ Bilateral Throughout] Pulse Rate [ 78 From Monitor] Respiratory 23 22 21 Rate Respiratory Rate [Bilateral Throughout] Blood Pressure 90/57 99/49 98/58 O2 Sat by Pulse 93 94 88 Oximetry 06/08/21 06/08/21 06/08/21 12:30 12:45 13:00 Temperature Pulse Rate 71 73 70 Pulse Rate [ Bilateral Throughout] Pulse Rate [ From Monitor] Respiratory 16 17 18 Rate Respiratory Rate [Bilateral Throughout] Blood Pressure 90/52 107/52 102/54 O2 Sat by Pulse 92 81 L 88 Oximetry 06/08/21 06/08/21 06/08/21 13:15 13:30 13:45 Temperature Pulse Rate 76 107 H 82 Pulse Rate [ Bilateral Throughout] Pulse Rate [ From Monitor] Respiratory 20 27 H 22 Rate Respiratory Rate [Bilateral Throughout] Blood Pressure 112/55 106/79 107/55 O2 Sat by Pulse 84 86 Oximetry 06/08/21 06/08/21 14:00 14:15 Temperature Pulse Rate 84 107 H Pulse Rate [ Bilateral Throughout] Pulse Rate [ From Monitor] Respiratory 26 H 27 H Rate Respiratory Rate [Bilateral Throughout] Blood Pressure 116/58 107/67 O2 Sat by Pulse 83 L 88 Oximetry Constitutional: no acute distress, other (mildly increased respiratory effort at rest on MVS) Eyes: non-icteric ENT: oropharynx moist, other (ETT 24 cm JOSH) Neck: supple, no lymphadenopathy, no JVD Effort: mildly labored Ascultation: Bilateral: diminished breath sounds, rales (inspiratory, bases) Percussion: Bilateral: not dull Cardiovascular: regular rate and rhythm, other (S1,S2) Gastrointestinal: normoactive bowel sounds, soft, non-tender, non-distended (protuberant) Integumentary: other (SQ emphysema to upper chest) Extremities: no cyanosis, pulses normal, edema (1+ edema), other (right femoral CVL) Neurologic: normal mental status, non-focal exam (grossly), pupils equal and round, other (sedated) Psychiatric: other (unable to assess re: AMS) CBC and BMP: 06/09/21 04:48 06/09/21 04:48 ABG, PT/INR, D-dimer: ABG ABG pH 7.426 pH Units (7.350-7.450) 06/07/21 10:50 POC ABG pCO2 59.5 mmHg (32.0-48.0) H 06/06/21 21:00 ABG pCO2 55.5 mm Hg 06/07/21 10:50 POC ABG pO2 52.1 mmHg (83-108) L 06/06/21 21:00 ABG pO2 66.6 mm Hg (80.0-90.0) L 06/07/21 10:50 POC ABG HCO3 33.2 06/06/21 21:00 ABG O2 Saturation 97.5 % (95.0-99.0) 06/07/21 10:50 PT/INR, D-dimer PT 15.9 Sec. (12.2-14.9) H 06/05/21 06:00 INR 1.15 (0.87-1.13) H 06/05/21 06:00 D-Dimer 1938.43 ng/mlDDU (0-234) H 06/07/21 04:36 Abnormal lab findings: Abnormal Labs 05/11/21 05/11/21 05/11/21 05:43 05:43 05:43 WBC RBC Hgb Hct MCV 98 H MCH RDW 17.7 H Plt Count Lymph % (Auto) 10.8 L Eos % (Auto) Lymph # (Auto) 0.6 L Eos # (Auto) Seg Neutrophils % 84.1 H Seg Neuts % (Manual) Lymphocytes % (Manual) Seg Neutrophils # Man Lymphocytes # (Manual) PT 16.0 H INR 1.16 H APTT D-Dimer ABG pH POC ABG pCO2 POC ABG pO2 ABG pO2 ABG HCO3 ABG O2 Saturation ABG Base Excess ABG Hemoglobin ABG Oxyhemoglobin ABG Sodium ABG Potassium ABG Chloride ABG Glucose Oxyhemoglobin Carboxyhemoglobin Sodium Potassium Chloride Carbon Dioxide 21 L BUN 4 L Creatinine 0.4 L Glucose POC Glucose Lactic Acid Calcium 8.3 L Phosphorus Magnesium Ferritin Total Bilirubin 2.10 H Direct Bilirubin 1.4 H AST 335 H ALT 57 H Alkaline Phosphatase 339 H Lactate Dehydrogenase C-Reactive Protein NT-Pro-B Natriuret Pep Total Protein Albumin 2.4 L Lipase 3 L Arterial Blood Glucose Arterial Blood Ionized Calcium Ur Specific [place] Vancomycin Trough Coronavirus (PCR) 05/11/21 05/11/21 05/12/21 11:18 12:28 04:08 WBC RBC Hgb Hct MCV MCH RDW Plt Count Lymph % (Auto) Eos % (Auto) Lymph # (Auto) Eos # (Auto) Seg Neutrophils % Seg Neuts % (Manual) Lymphocytes % (Manual) Seg Neutrophils # Man Lymphocytes # (Manual) PT INR APTT D-Dimer ABG pH POC ABG pCO2 POC ABG pO2 ABG pO2 ABG HCO3 ABG O2 Saturation ABG Base Excess ABG Hemoglobin ABG Oxyhemoglobin ABG Sodium ABG Potassium ABG Chloride ABG Glucose Oxyhemoglobin Carboxyhemoglobin Sodium Potassium Chloride Carbon Dioxide BUN Creatinine Glucose POC Glucose Lactic Acid 4.20 H* 4.50 H* Calcium Phosphorus Magnesium Ferritin Total Bilirubin Direct Bilirubin AST ALT Alkaline Phosphatase Lactate Dehydrogenase C-Reactive Protein NT-Pro-B Natriuret Pep Total Protein Albumin Lipase Arterial Blood Glucose Arterial Blood Ionized Calcium Ur Specific [place] 1.035 H Vancomycin Trough Coronavirus (PCR) 05/12/21 05/12/21 05/12/21 04:08 04:08 09:47 WBC 22.8 H RBC 3.39 L Hgb Hct MCV 98 H MCH RDW 17.7 H Plt Count Lymph % (Auto) Eos % (Auto) Lymph # (Auto) Eos # (Auto) Seg Neutrophils % Seg Neuts % (Manual) 85.5 H Lymphocytes % (Manual) 2.0 L Seg Neutrophils # Man 19.5 H Lymphocytes # (Manual) 0.5 L PT INR APTT D-Dimer ABG pH POC ABG pCO2 POC ABG pO2 ABG pO2 ABG HCO3 ABG O2 Saturation ABG Base Excess ABG Hemoglobin ABG Oxyhemoglobin ABG Sodium ABG Potassium ABG Chloride ABG Glucose Oxyhemoglobin Carboxyhemoglobin Sodium Potassium 3.3 L Chloride 108.9 H Carbon Dioxide 17 L BUN 4 L Creatinine 0.5 L Glucose 106 H POC Glucose Lactic Acid 2.60 H* Calcium 6.4 L D Phosphorus Magnesium Ferritin Total Bilirubin 2.10 H Direct Bilirubin AST 156 H ALT 61 H Alkaline Phosphatase 317 H Lactate Dehydrogenase C-Reactive Protein NT-Pro-B Natriuret Pep Total Protein 5.4 L D Albumin 1.8 L Lipase Arterial Blood Glucose Arterial Blood Ionized Calcium Ur Specific [place] Vancomycin Trough Coronavirus (PCR) 05/12/21 05/12/21 05/12/21 11:47 12:30 12:36 WBC RBC Hgb Hct MCV MCH RDW Plt Count Lymph % (Auto) Eos % (Auto) Lymph # (Auto) Eos # (Auto) Seg Neutrophils % Seg Neuts % (Manual) Lymphocytes % (Manual) Seg Neutrophils # Man Lymphocytes # (Manual) PT INR APTT D-Dimer ABG pH POC ABG pCO2 POC ABG pO2 ABG pO2 ABG HCO3 ABG O2 Saturation ABG Base Excess ABG Hemoglobin ABG Oxyhemoglobin ABG Sodium ABG Potassium ABG Chloride ABG Glucose Oxyhemoglobin Carboxyhemoglobin Sodium Potassium Chloride Carbon Dioxide BUN Creatinine Glucose POC Glucose 59 L 120 H Lactic Acid 2.50 H* Calcium Phosphorus Magnesium Ferritin Total Bilirubin Direct Bilirubin AST ALT Alkaline Phosphatase Lactate Dehydrogenase C-Reactive Protein NT-Pro-B Natriuret Pep Total Protein Albumin Lipase Arterial Blood Glucose Arterial Blood Ionized Calcium Ur Specific [place] Vancomycin Trough Coronavirus (PCR) 05/12/21 05/12/21 05/13/21 23:45 Unknown 04:00 WBC 19.8 H RBC 3.52 L Hgb Hct MCV 98 H MCH RDW 18.5 H Plt Count Lymph % (Auto) Eos % (Auto) Lymph # (Auto) Eos # (Auto) Seg Neutrophils % Seg Neuts % (Manual) Lymphocytes % (Manual) Seg Neutrophils # Man Lymphocytes # (Manual) PT INR APTT D-Dimer ABG pH POC ABG pCO2 POC ABG pO2 ABG pO2 ABG HCO3 ABG O2 Saturation ABG Base Excess ABG Hemoglobin ABG Oxyhemoglobin ABG Sodium ABG Potassium ABG Chloride ABG Glucose Oxyhemoglobin Carboxyhemoglobin Sodium Potassium Chloride Carbon Dioxide BUN Creatinine Glucose POC Glucose 119 H Lactic Acid 3.30 H* Calcium Phosphorus Magnesium Ferritin Total Bilirubin Direct Bilirubin AST ALT Alkaline Phosphatase Lactate Dehydrogenase C-Reactive Protein NT-Pro-B Natriuret Pep Total Protein Albumin Lipase Arterial Blood Glucose Arterial Blood Ionized Calcium Ur Specific [place] Vancomycin Trough Coronavirus (PCR) 05/13/21 05/13/21 05/13/21 04:00 05:42 12:19 WBC RBC Hgb Hct MCV MCH RDW Plt Count Lymph % (Auto) Eos % (Auto) Lymph # (Auto) Eos # (Auto) Seg Neutrophils % Seg Neuts % (Manual) Lymphocytes % (Manual) Seg Neutrophils # Man Lymphocytes # (Manual) PT INR APTT D-Dimer ABG pH POC ABG pCO2 POC ABG pO2 ABG pO2 ABG HCO3 ABG O2 Saturation ABG Base Excess ABG Hemoglobin ABG Oxyhemoglobin ABG Sodium ABG Potassium ABG Chloride ABG Glucose Oxyhemoglobin Carboxyhemoglobin Sodium Potassium 3.4 L Chloride 107.1 H Carbon Dioxide 19 L BUN 4 L Creatinine 0.4 L Glucose 157 H POC Glucose 143 H 110 H Lactic Acid Calcium 7.4 L D Phosphorus 1.60 L Magnesium 1.50 L Ferritin Total Bilirubin 1.40 H Direct Bilirubin AST 95 H ALT Alkaline Phosphatase 328 H Lactate Dehydrogenase C-Reactive Protein NT-Pro-B Natriuret Pep Total Protein 5.5 L Albumin 1.6 L Lipase Arterial Blood Glucose Arterial Blood Ionized Calcium Ur Specific [place] Vancomycin Trough Coronavirus (PCR) 05/14/21 05/14/21 05/14/21 06:15 06:15 10:25 WBC 11.7 H RBC 3.41 L Hgb Hct MCV 98 H MCH RDW 18.6 H Plt Count Lymph % (Auto) Eos % (Auto) Lymph # (Auto) Eos # (Auto) Seg Neutrophils % Seg Neuts % (Manual) Lymphocytes % (Manual) Seg Neutrophils # Man Lymphocytes # (Manual) PT INR APTT D-Dimer ABG pH POC ABG pCO2 POC ABG pO2 ABG pO2 76.0 L ABG HCO3 27.2 H ABG O2 Saturation ABG Base Excess ABG Hemoglobin 11.5 L ABG Oxyhemoglobin ABG Sodium ABG Potassium ABG Chloride ABG Glucose Oxyhemoglobin 94.4 L Carboxyhemoglobin Sodium Potassium 3.2 L Chloride Carbon Dioxide BUN 6 L Creatinine 0.5 L Glucose 103 H POC Glucose Lactic Acid Calcium 7.3 L Phosphorus 1.70 L Magnesium Ferritin Total Bilirubin Direct Bilirubin AST 66 H ALT Alkaline Phosphatase 295 H Lactate Dehydrogenase C-Reactive Protein NT-Pro-B Natriuret Pep Total Protein 5.3 L Albumin 1.8 L Lipase Arterial Blood Glucose Arterial Blood Ionized Calcium Ur Specific [place] Vancomycin Trough Coronavirus (PCR) 05/14/21 05/14/21 05/14/21 15:20 15:20 17:26 WBC RBC Hgb Hct MCV MCH RDW Plt Count Lymph % (Auto) Eos % (Auto) Lymph # (Auto) Eos # (Auto) Seg Neutrophils % Seg Neuts % (Manual) Lymphocytes % (Manual) Seg Neutrophils # Man Lymphocytes # (Manual) PT INR APTT D-Dimer ABG pH POC ABG pCO2 POC ABG pO2 ABG pO2 ABG HCO3 ABG O2 Saturation ABG Base Excess ABG Hemoglobin ABG Oxyhemoglobin ABG Sodium ABG Potassium ABG Chloride ABG Glucose Oxyhemoglobin Carboxyhemoglobin Sodium 146 H D Potassium Chloride 108.4 H Carbon Dioxide BUN 5 L Creatinine 0.5 L Glucose POC Glucose 63 L Lactic Acid Calcium 7.6 L Phosphorus Magnesium Ferritin Total Bilirubin Direct Bilirubin AST ALT Alkaline Phosphatase Lactate Dehydrogenase C-Reactive Protein NT-Pro-B Natriuret Pep Total Protein Albumin Lipase Arterial Blood Glucose Arterial Blood Ionized Calcium Ur Specific [place] Vancomycin Trough 25.3 H Coronavirus (PCR) 05/14/21 05/15/21 05/15/21 21:27 00:03 00:29 WBC RBC Hgb Hct MCV MCH RDW Plt Count Lymph % (Auto) Eos % (Auto) Lymph # (Auto) Eos # (Auto) Seg Neutrophils % Seg Neuts % (Manual) Lymphocytes % (Manual) Seg Neutrophils # Man Lymphocytes # (Manual) PT INR APTT D-Dimer ABG pH POC ABG pCO2 POC ABG pO2 ABG pO2 ABG HCO3 ABG O2 Saturation ABG Base Excess ABG Hemoglobin ABG Oxyhemoglobin ABG Sodium ABG Potassium ABG Chloride ABG Glucose Oxyhemoglobin Carboxyhemoglobin Sodium Potassium Chloride Carbon Dioxide BUN Creatinine Glucose POC Glucose 52 L 54 L 129 H Lactic Acid Calcium Phosphorus Magnesium Ferritin Total Bilirubin Direct Bilirubin AST ALT Alkaline Phosphatase Lactate Dehydrogenase C-Reactive Protein NT-Pro-B Natriuret Pep Total Protein Albumin Lipase Arterial Blood Glucose Arterial Blood Ionized Calcium Ur Specific [place] Vancomycin Trough Coronavirus (PCR) 05/15/21 05/15/21 05/15/21 04:45 04:45 11:58 WBC RBC 3.24 L Hgb Hct MCV 98 H MCH RDW 18.5 H Plt Count 122 L Lymph % (Auto) 7.4 L Eos % (Auto) Lymph # (Auto) 0.6 L Eos # (Auto) Seg Neutrophils % 81.2 H Seg Neuts % (Manual) Lymphocytes % (Manual) Seg Neutrophils # Man Lymphocytes # (Manual) PT INR APTT D-Dimer ABG pH POC ABG pCO2 POC ABG pO2 ABG pO2 ABG HCO3 ABG O2 Saturation ABG Base Excess ABG Hemoglobin ABG Oxyhemoglobin ABG Sodium ABG Potassium ABG Chloride ABG Glucose Oxyhemoglobin Carboxyhemoglobin Sodium 146 H Potassium 3.1 L Chloride 108.8 H Carbon Dioxide BUN 6 L Creatinine Glucose 121 H POC Glucose 68 L Lactic Acid Calcium 7.5 L Phosphorus 2.30 L D Magnesium Ferritin Total Bilirubin 1.90 H Direct Bilirubin AST 55 H ALT Alkaline Phosphatase 231 H Lactate Dehydrogenase C-Reactive Protein NT-Pro-B Natriuret Pep Total Protein 5.4 L Albumin 1.5 L Lipase Arterial Blood Glucose Arterial Blood Ionized Calcium Ur Specific [place] Vancomycin Trough Coronavirus (PCR) 05/15/21 05/16/21 05/16/21 13:50 00:06 00:43 WBC RBC Hgb Hct MCV MCH RDW Plt Count Lymph % (Auto) Eos % (Auto) Lymph # (Auto) Eos # (Auto) Seg Neutrophils % Seg Neuts % (Manual) Lymphocytes % (Manual) Seg Neutrophils # Man Lymphocytes # (Manual) PT INR APTT D-Dimer ABG pH POC ABG pCO2 POC ABG pO2 ABG pO2 ABG HCO3 ABG O2 Saturation ABG Base Excess ABG Hemoglobin ABG Oxyhemoglobin ABG Sodium ABG Potassium ABG Chloride ABG Glucose Oxyhemoglobin Carboxyhemoglobin Sodium Potassium Chloride Carbon Dioxide BUN Creatinine Glucose POC Glucose 147 H 54 L 116 H Lactic Acid Calcium Phosphorus Magnesium Ferritin Total Bilirubin Direct Bilirubin AST ALT Alkaline Phosphatase Lactate Dehydrogenase C-Reactive Protein NT-Pro-B Natriuret Pep Total Protein Albumin Lipase Arterial Blood Glucose Arterial Blood Ionized Calcium Ur Specific [place] Vancomycin Trough Coronavirus (PCR) 05/16/21 05/16/21 05/16/21 04:31 04:31 05:58 WBC RBC 3.12 L Hgb 9.8 L Hct MCV 98 H MCH RDW 18.2 H Plt Count 115 L Lymph % (Auto) Eos % (Auto) Lymph # (Auto) Eos # (Auto) Seg Neutrophils % Seg Neuts % (Manual) Lymphocytes % (Manual) Seg Neutrophils # Man Lymphocytes # (Manual) PT INR APTT D-Dimer ABG pH POC ABG pCO2 POC ABG pO2 ABG pO2 ABG HCO3 ABG O2 Saturation ABG Base Excess ABG Hemoglobin ABG Oxyhemoglobin ABG Sodium ABG Potassium ABG Chloride ABG Glucose Oxyhemoglobin Carboxyhemoglobin Sodium 146 H Potassium 3.2 L Chloride Carbon Dioxide BUN 5 L Creatinine 0.5 L Glucose POC Glucose 61 L Lactic Acid Calcium 7.2 L Phosphorus 2.30 L Magnesium Ferritin Total Bilirubin Direct Bilirubin AST ALT Alkaline Phosphatase Lactate Dehydrogenase C-Reactive Protein NT-Pro-B Natriuret Pep Total Protein Albumin Lipase Arterial Blood Glucose Arterial Blood Ionized Calcium Ur Specific [place] Vancomycin Trough Coronavirus (PCR) 05/16/21 05/16/21 05/17/21 08:11 23:42 04:15 WBC RBC Hgb Hct MCV MCH RDW Plt Count Lymph % (Auto) Eos % (Auto) Lymph # (Auto) Eos # (Auto) Seg Neutrophils % Seg Neuts % (Manual) Lymphocytes % (Manual) Seg Neutrophils # Man Lymphocytes # (Manual) PT INR APTT D-Dimer ABG pH POC ABG pCO2 POC ABG pO2 ABG pO2 ABG HCO3 ABG O2 Saturation ABG Base Excess ABG Hemoglobin ABG Oxyhemoglobin ABG Sodium ABG Potassium ABG Chloride ABG Glucose Oxyhemoglobin Carboxyhemoglobin Sodium Potassium Chloride Carbon Dioxide BUN Creatinine Glucose POC Glucose 58 L 200 H Lactic Acid Calcium Phosphorus Magnesium Ferritin Total Bilirubin 1.70 H Direct Bilirubin 1.5 H AST 43 H ALT Alkaline Phosphatase 196 H Lactate Dehydrogenase C-Reactive Protein NT-Pro-B Natriuret Pep Total Protein 5.4 L Albumin 1.6 L Lipase Arterial Blood Glucose Arterial Blood Ionized Calcium Ur Specific [place] Vancomycin Trough Coronavirus (PCR) 05/17/21 05/17/21 05/17/21 04:15 04:15 05:07 WBC RBC 3.26 L Hgb Hct MCV 98 H MCH RDW 18.9 H Plt Count 114 L Lymph % (Auto) Eos % (Auto) Lymph # (Auto) Eos # (Auto) Seg Neutrophils % Seg Neuts % (Manual) Lymphocytes % (Manual) Seg Neutrophils # Man Lymphocytes # (Manual) PT INR APTT D-Dimer ABG pH POC ABG pCO2 POC ABG pO2 ABG pO2 ABG HCO3 ABG O2 Saturation ABG Base Excess ABG Hemoglobin ABG Oxyhemoglobin ABG Sodium ABG Potassium ABG Chloride ABG Glucose Oxyhemoglobin Carboxyhemoglobin Sodium Potassium Chloride Carbon Dioxide 35 H BUN 5 L Creatinine Glucose 274 H POC Glucose 249 H Lactic Acid Calcium 7.7 L Phosphorus 1.50 L D Magnesium Ferritin Total Bilirubin Direct Bilirubin AST ALT Alkaline Phosphatase Lactate Dehydrogenase C-Reactive Protein NT-Pro-B Natriuret Pep Total Protein Albumin Lipase Arterial Blood Glucose Arterial Blood Ionized Calcium Ur Specific [place] Vancomycin Trough Coronavirus (PCR) 05/17/21 05/17/21 05/17/21 11:56 16:29 23:37 WBC RBC Hgb Hct MCV MCH RDW Plt Count Lymph % (Auto) Eos % (Auto) Lymph # (Auto) Eos # (Auto) Seg Neutrophils % Seg Neuts % (Manual) Lymphocytes % (Manual) Seg Neutrophils # Man Lymphocytes # (Manual) PT INR APTT D-Dimer ABG pH POC ABG pCO2 POC ABG pO2 ABG pO2 ABG HCO3 ABG O2 Saturation ABG Base Excess ABG Hemoglobin ABG Oxyhemoglobin ABG Sodium ABG Potassium ABG Chloride ABG Glucose Oxyhemoglobin Carboxyhemoglobin Sodium Potassium Chloride Carbon Dioxide BUN Creatinine Glucose POC Glucose 176 H 219 H 150 H Lactic Acid Calcium Phosphorus Magnesium Ferritin Total Bilirubin Direct Bilirubin AST ALT Alkaline Phosphatase Lactate Dehydrogenase C-Reactive Protein NT-Pro-B Natriuret Pep Total Protein Albumin Lipase Arterial Blood Glucose Arterial Blood Ionized Calcium Ur Specific [place] Vancomycin Trough Coronavirus (PCR) 05/18/21 05/18/21 05/18/21 04:00 05:22 09:00 WBC RBC 3.34 L Hgb Hct MCV MCH RDW 18.8 H Plt Count Lymph % (Auto) Eos % (Auto) Lymph # (Auto) Eos # (Auto) Seg Neutrophils % Seg Neuts % (Manual) Lymphocytes % (Manual) Seg Neutrophils # Man Lymphocytes # (Manual) PT INR APTT D-Dimer ABG pH POC ABG pCO2 POC ABG pO2 ABG pO2 ABG HCO3 ABG O2 Saturation ABG Base Excess ABG Hemoglobin ABG Oxyhemoglobin ABG Sodium ABG Potassium ABG Chloride ABG Glucose Oxyhemoglobin Carboxyhemoglobin Sodium Potassium 5.4 H D Chloride 97.5 L Carbon Dioxide 33 H BUN Creatinine 0.4 L Glucose 461 H POC Glucose 181 H Lactic Acid Calcium 7.2 L Phosphorus 5.00 H D Magnesium Ferritin Total Bilirubin Direct Bilirubin AST ALT Alkaline Phosphatase Lactate Dehydrogenase C-Reactive Protein NT-Pro-B Natriuret Pep Total Protein Albumin Lipase Arterial Blood Glucose Arterial Blood Ionized Calcium Ur Specific [place] Vancomycin Trough Coronavirus (PCR) 05/18/21 05/18/21 05/18/21 11:16 12:50 16:29 WBC RBC Hgb Hct MCV MCH RDW Plt Count Lymph % (Auto) Eos % (Auto) Lymph # (Auto) Eos # (Auto) Seg Neutrophils % Seg Neuts % (Manual) Lymphocytes % (Manual) Seg Neutrophils # Man Lymphocytes # (Manual) PT INR APTT D-Dimer ABG pH POC ABG pCO2 POC ABG pO2 ABG pO2 ABG HCO3 ABG O2 Saturation ABG Base Excess ABG Hemoglobin ABG Oxyhemoglobin ABG Sodium ABG Potassium ABG Chloride ABG Glucose Oxyhemoglobin Carboxyhemoglobin Sodium Potassium 3.4 L D Chloride Carbon Dioxide 36 H BUN 19 H Creatinine 0.4 L Glucose 231 H POC Glucose 168 H 196 H Lactic Acid Calcium 7.5 L Phosphorus 1.80 L D Magnesium Ferritin Total Bilirubin Direct Bilirubin AST ALT Alkaline Phosphatase Lactate Dehydrogenase C-Reactive Protein NT-Pro-B Natriuret Pep Total Protein Albumin Lipase Arterial Blood Glucose Arterial Blood Ionized Calcium Ur Specific [place] Vancomycin Trough Coronavirus (PCR) 05/19/21 05/19/21 05/19/21 00:05 04:08 05:07 WBC RBC Hgb Hct MCV MCH RDW Plt Count Lymph % (Auto) Eos % (Auto) Lymph # (Auto) Eos # (Auto) Seg Neutrophils % Seg Neuts % (Manual) Lymphocytes % (Manual) Seg Neutrophils # Man Lymphocytes # (Manual) PT INR APTT D-Dimer ABG pH POC ABG pCO2 POC ABG pO2 ABG pO2 ABG HCO3 ABG O2 Saturation ABG Base Excess ABG Hemoglobin ABG Oxyhemoglobin ABG Sodium ABG Potassium ABG Chloride ABG Glucose Oxyhemoglobin Carboxyhemoglobin Sodium 146 H Potassium Chloride Carbon Dioxide 35 H BUN 25 H Creatinine 0.4 L Glucose 218 H POC Glucose 164 H 203 H Lactic Acid Calcium 7.2 L Phosphorus Magnesium Ferritin Total Bilirubin Direct Bilirubin AST ALT Alkaline Phosphatase Lactate Dehydrogenase C-Reactive Protein NT-Pro-B Natriuret Pep Total Protein Albumin Lipase Arterial Blood Glucose Arterial Blood Ionized Calcium Ur Specific [place] Vancomycin Trough Coronavirus (PCR) 05/19/21 05/19/21 05/19/21 12:16 14:14 17:11 WBC RBC Hgb Hct MCV MCH RDW Plt Count Lymph % (Auto) Eos % (Auto) Lymph # (Auto) Eos # (Auto) Seg Neutrophils % Seg Neuts % (Manual) Lymphocytes % (Manual) Seg Neutrophils # Man Lymphocytes # (Manual) PT INR APTT D-Dimer ABG pH 7.482 H POC ABG pCO2 POC ABG pO2 ABG pO2 111.7 H ABG HCO3 31.4 H ABG O2 Saturation ABG Base Excess 7.2 H ABG Hemoglobin 11.1 L ABG Oxyhemoglobin ABG Sodium ABG Potassium ABG Chloride ABG Glucose Oxyhemoglobin Carboxyhemoglobin Sodium Potassium Chloride Carbon Dioxide BUN Creatinine Glucose POC Glucose 206 H 194 H Lactic Acid Calcium Phosphorus Magnesium Ferritin Total Bilirubin Direct Bilirubin AST ALT Alkaline Phosphatase Lactate Dehydrogenase C-Reactive Protein NT-Pro-B Natriuret Pep Total Protein Albumin Lipase Arterial Blood Glucose Arterial Blood Ionized Calcium Ur Specific [place] Vancomycin Trough Coronavirus (PCR) 05/20/21 05/20/21 05/20/21 00:01 04:30 06:09 WBC RBC Hgb Hct MCV MCH RDW Plt Count Lymph % (Auto) Eos % (Auto) Lymph # (Auto) Eos # (Auto) Seg Neutrophils % Seg Neuts % (Manual) Lymphocytes % (Manual) Seg Neutrophils # Man Lymphocytes # (Manual) PT INR APTT D-Dimer ABG pH POC ABG pCO2 POC ABG pO2 ABG pO2 ABG HCO3 ABG O2 Saturation ABG Base Excess ABG Hemoglobin ABG Oxyhemoglobin ABG Sodium ABG Potassium ABG Chloride ABG Glucose Oxyhemoglobin Carboxyhemoglobin Sodium Potassium 3.5 L Chloride Carbon Dioxide BUN 24 H Creatinine 0.3 L Glucose 254 H POC Glucose 209 H 210 H Lactic Acid Calcium 7.5 L Phosphorus 1.90 L D Magnesium Ferritin Total Bilirubin 1.60 H Direct Bilirubin AST 201 H ALT 170 H Alkaline Phosphatase 169 H Lactate Dehydrogenase C-Reactive Protein NT-Pro-B Natriuret Pep Total Protein 5.3 L Albumin 1.9 L Lipase Arterial Blood Glucose Arterial Blood Ionized Calcium Ur Specific [place] Vancomycin Trough Coronavirus (PCR) 05/20/21 05/20/21 05/20/21 11:41 16:47 22:21 WBC RBC Hgb Hct MCV MCH RDW Plt Count Lymph % (Auto) Eos % (Auto) Lymph # (Auto) Eos # (Auto) Seg Neutrophils % Seg Neuts % (Manual) Lymphocytes % (Manual) Seg Neutrophils # Man Lymphocytes # (Manual) PT INR APTT D-Dimer ABG pH POC ABG pCO2 POC ABG pO2 ABG pO2 ABG HCO3 ABG O2 Saturation ABG Base Excess ABG Hemoglobin ABG Oxyhemoglobin ABG Sodium ABG Potassium ABG Chloride ABG Glucose Oxyhemoglobin Carboxyhemoglobin Sodium Potassium Chloride Carbon Dioxide BUN Creatinine Glucose POC Glucose 158 H 232 H 211 H Lactic Acid Calcium Phosphorus Magnesium Ferritin Total Bilirubin Direct Bilirubin AST ALT Alkaline Phosphatase Lactate Dehydrogenase C-Reactive Protein NT-Pro-B Natriuret Pep Total Protein Albumin Lipase Arterial Blood Glucose Arterial Blood Ionized Calcium Ur Specific [place] Vancomycin Trough Coronavirus (PCR) 05/21/21 05/21/21 05/21/21 00:35 04:00 04:00 WBC RBC 3.28 L Hgb Hct MCV MCH RDW 18.7 H Plt Count 125 L Lymph % (Auto) Eos % (Auto) Lymph # (Auto) Eos # (Auto) Seg Neutrophils % Seg Neuts % (Manual) Lymphocytes % (Manual) Seg Neutrophils # Man Lymphocytes # (Manual) PT INR APTT D-Dimer ABG pH POC ABG pCO2 POC ABG pO2 ABG pO2 ABG HCO3 ABG O2 Saturation ABG Base Excess ABG Hemoglobin ABG Oxyhemoglobin ABG Sodium ABG Potassium ABG Chloride ABG Glucose Oxyhemoglobin Carboxyhemoglobin Sodium Potassium 5.1 H D Chloride 108.7 H Carbon Dioxide BUN 21 H Creatinine 0.2 L Glucose 242 H POC Glucose 230 H Lactic Acid Calcium 7.3 L Phosphorus Magnesium Ferritin Total Bilirubin Direct Bilirubin AST ALT Alkaline Phosphatase Lactate Dehydrogenase C-Reactive Protein NT-Pro-B Natriuret Pep Total Protein Albumin Lipase Arterial Blood Glucose Arterial Blood Ionized Calcium Ur Specific [place] Vancomycin Trough Coronavirus (PCR) 05/21/21 05/21/21 05/21/21 05:08 11:47 17:43 WBC RBC Hgb Hct MCV MCH RDW Plt Count Lymph % (Auto) Eos % (Auto) Lymph # (Auto) Eos # (Auto) Seg Neutrophils % Seg Neuts % (Manual) Lymphocytes % (Manual) Seg Neutrophils # Man Lymphocytes # (Manual) PT INR APTT D-Dimer ABG pH POC ABG pCO2 POC ABG pO2 ABG pO2 ABG HCO3 ABG O2 Saturation ABG Base Excess ABG Hemoglobin ABG Oxyhemoglobin ABG Sodium ABG Potassium ABG Chloride ABG Glucose Oxyhemoglobin Carboxyhemoglobin Sodium Potassium Chloride Carbon Dioxide BUN Creatinine Glucose POC Glucose 196 H 139 H 147 H Lactic Acid Calcium Phosphorus Magnesium Ferritin Total Bilirubin Direct Bilirubin AST ALT Alkaline Phosphatase Lactate Dehydrogenase C-Reactive Protein NT-Pro-B Natriuret Pep Total Protein Albumin Lipase Arterial Blood Glucose Arterial Blood Ionized Calcium Ur Specific [place] Vancomycin Trough Coronavirus (PCR) 05/21/21 05/21/21 05/22/21 17:57 23:32 04:16 WBC RBC Hgb Hct MCV MCH RDW Plt Count Lymph % (Auto) Eos % (Auto) Lymph # (Auto) Eos # (Auto) Seg Neutrophils % Seg Neuts % (Manual) Lymphocytes % (Manual) Seg Neutrophils # Man Lymphocytes # (Manual) PT INR APTT D-Dimer ABG pH POC ABG pCO2 POC ABG pO2 ABG pO2 ABG HCO3 ABG O2 Saturation ABG Base Excess ABG Hemoglobin ABG Oxyhemoglobin ABG Sodium ABG Potassium ABG Chloride ABG Glucose Oxyhemoglobin Carboxyhemoglobin Sodium Potassium 5.2 H Chloride Carbon Dioxide BUN 19 H Creatinine 0.2 L Glucose 154 H POC Glucose 218 H 185 H Lactic Acid Calcium 7.5 L Phosphorus Magnesium Ferritin Total Bilirubin 3.00 H Direct Bilirubin 2.3 H AST 437 H ALT 462 H Alkaline Phosphatase 186 H Lactate Dehydrogenase C-Reactive Protein NT-Pro-B Natriuret Pep Total Protein 5.5 L Albumin 1.9 L Lipase Arterial Blood Glucose Arterial Blood Ionized Calcium Ur Specific [place] Vancomycin Trough Coronavirus (PCR) 05/22/21 05/22/21 05/22/21 04:30 04:30 04:30 WBC RBC Hgb Hct MCV MCH RDW Plt Count Lymph % (Auto) Eos % (Auto) Lymph # (Auto) Eos # (Auto) Seg Neutrophils % Seg Neuts % (Manual) Lymphocytes % (Manual) Seg Neutrophils # Man Lymphocytes # (Manual) PT 19.5 H INR 1.49 H APTT D-Dimer ABG pH POC ABG pCO2 POC ABG pO2 ABG pO2 ABG HCO3 ABG O2 Saturation ABG Base Excess ABG Hemoglobin ABG Oxyhemoglobin ABG Sodium ABG Potassium ABG Chloride ABG Glucose Oxyhemoglobin Carboxyhemoglobin Sodium 134 L Potassium Chloride Carbon Dioxide BUN 19 H Creatinine 0.2 L Glucose 208 H POC Glucose Lactic Acid Calcium 7.2 L Phosphorus 2.40 L D Magnesium Ferritin Total Bilirubin 2.20 H Direct Bilirubin AST 350 H ALT 496 H Alkaline Phosphatase 167 H Lactate Dehydrogenase C-Reactive Protein NT-Pro-B Natriuret Pep Total Protein 4.8 L Albumin 1.7 L Lipase Arterial Blood Glucose Arterial Blood Ionized Calcium Ur Specific [place] Vancomycin Trough Coronavirus (PCR) 05/22/21 05/22/21 05/22/21 11:59 17:16 23:07 WBC RBC Hgb Hct MCV MCH RDW Plt Count Lymph % (Auto) Eos % (Auto) Lymph # (Auto) Eos # (Auto) Seg Neutrophils % Seg Neuts % (Manual) Lymphocytes % (Manual) Seg Neutrophils # Man Lymphocytes # (Manual) PT INR APTT D-Dimer ABG pH POC ABG pCO2 POC ABG pO2 ABG pO2 ABG HCO3 ABG O2 Saturation ABG Base Excess ABG Hemoglobin ABG Oxyhemoglobin ABG Sodium ABG Potassium ABG Chloride ABG Glucose Oxyhemoglobin Carboxyhemoglobin Sodium Potassium Chloride Carbon Dioxide BUN Creatinine Glucose POC Glucose 204 H 244 H 226 H Lactic Acid Calcium Phosphorus Magnesium Ferritin Total Bilirubin Direct Bilirubin AST ALT Alkaline Phosphatase Lactate Dehydrogenase C-Reactive Protein NT-Pro-B Natriuret Pep Total Protein Albumin Lipase Arterial Blood Glucose Arterial Blood Ionized Calcium Ur Specific [place] Vancomycin Trough Coronavirus (PCR) 05/23/21 05/23/21 05/23/21 05:09 10:15 10:15 WBC RBC Hgb Hct MCV MCH RDW Plt Count Lymph % (Auto) Eos % (Auto) Lymph # (Auto) Eos # (Auto) Seg Neutrophils % Seg Neuts % (Manual) Lymphocytes % (Manual) Seg Neutrophils # Man Lymphocytes # (Manual) PT 16.9 H INR 1.24 H APTT D-Dimer ABG pH POC ABG pCO2 POC ABG pO2 ABG pO2 ABG HCO3 ABG O2 Saturation ABG Base Excess ABG Hemoglobin ABG Oxyhemoglobin ABG Sodium ABG Potassium ABG Chloride ABG Glucose Oxyhemoglobin Carboxyhemoglobin Sodium 131 L Potassium Chloride 97.5 L Carbon Dioxide BUN Creatinine < 0.2 L Glucose 248 H POC Glucose 175 H Lactic Acid Calcium 7.4 L Phosphorus Magnesium 1.60 L Ferritin Total Bilirubin Direct Bilirubin AST ALT Alkaline Phosphatase Lactate Dehydrogenase C-Reactive Protein NT-Pro-B Natriuret Pep Total Protein Albumin Lipase Arterial Blood Glucose Arterial Blood Ionized Calcium Ur Specific [place] Vancomycin Trough Coronavirus (PCR) 05/23/21 05/23/21 05/24/21 10:15 21:46 04:16 WBC RBC Hgb Hct MCV MCH RDW Plt Count Lymph % (Auto) Eos % (Auto) Lymph # (Auto) Eos # (Auto) Seg Neutrophils % Seg Neuts % (Manual) Lymphocytes % (Manual) Seg Neutrophils # Man Lymphocytes # (Manual) PT INR APTT D-Dimer ABG pH POC ABG pCO2 POC ABG pO2 ABG pO2 ABG HCO3 ABG O2 Saturation ABG Base Excess ABG Hemoglobin ABG Oxyhemoglobin ABG Sodium ABG Potassium ABG Chloride ABG Glucose Oxyhemoglobin Carboxyhemoglobin Sodium 130 L Potassium 3.5 L Chloride 97.1 L Carbon Dioxide BUN Creatinine 0.2 L Glucose 235 H POC Glucose 190 H Lactic Acid Calcium 6.8 L Phosphorus Magnesium Ferritin Total Bilirubin 2.30 H Direct Bilirubin 1.6 H AST 161 H ALT 396 H Alkaline Phosphatase 186 H Lactate Dehydrogenase C-Reactive Protein NT-Pro-B Natriuret Pep Total Protein 4.7 L Albumin 2.0 L Lipase Arterial Blood Glucose Arterial Blood Ionized Calcium Ur Specific [place] Vancomycin Trough Coronavirus (PCR) 05/24/21 05/25/21 05/25/21 05:32 04:25 04:25 WBC 11.7 H RBC 3.28 L Hgb Hct MCV MCH RDW 19.9 H Plt Count Lymph % (Auto) Eos % (Auto) Lymph # (Auto) Eos # (Auto) Seg Neutrophils % Seg Neuts % (Manual) Lymphocytes % (Manual) Seg Neutrophils # Man Lymphocytes # (Manual) PT INR APTT D-Dimer ABG pH POC ABG pCO2 POC ABG pO2 ABG pO2 ABG HCO3 ABG O2 Saturation ABG Base Excess ABG Hemoglobin ABG Oxyhemoglobin ABG Sodium ABG Potassium ABG Chloride ABG Glucose Oxyhemoglobin Carboxyhemoglobin Sodium 135 L Potassium 3.4 L Chloride Carbon Dioxide BUN Creatinine 0.2 L Glucose 105 H POC Glucose 208 H Lactic Acid Calcium 7.6 L Phosphorus Magnesium Ferritin Total Bilirubin Direct Bilirubin AST ALT Alkaline Phosphatase Lactate Dehydrogenase C-Reactive Protein NT-Pro-B Natriuret Pep Total Protein Albumin Lipase Arterial Blood Glucose Arterial Blood Ionized Calcium Ur Specific [place] Vancomycin Trough Coronavirus (PCR) 05/26/21 05/26/21 05/26/21 11:37 16:57 20:59 WBC RBC Hgb Hct MCV MCH RDW Plt Count Lymph % (Auto) Eos % (Auto) Lymph # (Auto) Eos # (Auto) Seg Neutrophils % Seg Neuts % (Manual) Lymphocytes % (Manual) Seg Neutrophils # Man Lymphocytes # (Manual) PT INR APTT D-Dimer ABG pH POC ABG pCO2 POC ABG pO2 ABG pO2 ABG HCO3 ABG O2 Saturation ABG Base Excess ABG Hemoglobin ABG Oxyhemoglobin ABG Sodium ABG Potassium ABG Chloride ABG Glucose Oxyhemoglobin Carboxyhemoglobin Sodium Potassium Chloride Carbon Dioxide BUN Creatinine Glucose POC Glucose 136 H 214 H 137 H Lactic Acid Calcium Phosphorus Magnesium Ferritin Total Bilirubin Direct Bilirubin AST ALT Alkaline Phosphatase Lactate Dehydrogenase C-Reactive Protein NT-Pro-B Natriuret Pep Total Protein Albumin Lipase Arterial Blood Glucose Arterial Blood Ionized Calcium Ur Specific [place] Vancomycin Trough Coronavirus (PCR) 05/26/21 05/27/21 05/27/21 23:52 05:40 16:49 WBC RBC Hgb Hct MCV MCH RDW Plt Count Lymph % (Auto) Eos % (Auto) Lymph # (Auto) Eos # (Auto) Seg Neutrophils % Seg Neuts % (Manual) Lymphocytes % (Manual) Seg Neutrophils # Man Lymphocytes # (Manual) PT INR APTT D-Dimer ABG pH POC ABG pCO2 POC ABG pO2 ABG pO2 ABG HCO3 ABG O2 Saturation ABG Base Excess ABG Hemoglobin ABG Oxyhemoglobin ABG Sodium ABG Potassium ABG Chloride ABG Glucose Oxyhemoglobin Carboxyhemoglobin Sodium Potassium Chloride Carbon Dioxide BUN Creatinine Glucose POC Glucose 111 H 144 H 213 H Lactic Acid Calcium Phosphorus Magnesium Ferritin Total Bilirubin Direct Bilirubin AST ALT Alkaline Phosphatase Lactate Dehydrogenase C-Reactive Protein NT-Pro-B Natriuret Pep Total Protein Albumin Lipase Arterial Blood Glucose Arterial Blood Ionized Calcium Ur Specific [place] Vancomycin Trough Coronavirus (PCR) 05/27/21 05/27/21 05/28/21 21:07 23:57 11:59 WBC RBC Hgb Hct MCV MCH RDW Plt Count Lymph % (Auto) Eos % (Auto) Lymph # (Auto) Eos # (Auto) Seg Neutrophils % Seg Neuts % (Manual) Lymphocytes % (Manual) Seg Neutrophils # Man Lymphocytes # (Manual) PT INR APTT D-Dimer ABG pH POC ABG pCO2 POC ABG pO2 ABG pO2 ABG HCO3 ABG O2 Saturation ABG Base Excess ABG Hemoglobin ABG Oxyhemoglobin ABG Sodium ABG Potassium ABG Chloride ABG Glucose Oxyhemoglobin Carboxyhemoglobin Sodium Potassium Chloride Carbon Dioxide BUN Creatinine Glucose POC Glucose 135 H 157 H 130 H Lactic Acid Calcium Phosphorus Magnesium Ferritin Total Bilirubin Direct Bilirubin AST ALT Alkaline Phosphatase Lactate Dehydrogenase C-Reactive Protein NT-Pro-B Natriuret Pep Total Protein Albumin Lipase Arterial Blood Glucose Arterial Blood Ionized Calcium Ur Specific [place] Vancomycin Trough Coronavirus (PCR) 05/28/21 05/29/21 05/29/21 17:05 01:03 05:07 WBC RBC Hgb Hct MCV MCH RDW Plt Count Lymph % (Auto) Eos % (Auto) Lymph # (Auto) Eos # (Auto) Seg Neutrophils % Seg Neuts % (Manual) Lymphocytes % (Manual) Seg Neutrophils # Man Lymphocytes # (Manual) PT INR APTT D-Dimer ABG pH POC ABG pCO2 POC ABG pO2 ABG pO2 ABG HCO3 ABG O2 Saturation ABG Base Excess ABG Hemoglobin ABG Oxyhemoglobin ABG Sodium ABG Potassium ABG Chloride ABG Glucose Oxyhemoglobin Carboxyhemoglobin Sodium 148 H D Potassium 3.0 L Chloride 108.0 H Carbon Dioxide BUN Creatinine 0.2 L Glucose 155 H POC Glucose 207 H 204 H Lactic Acid Calcium 7.7 L Phosphorus Magnesium Ferritin Total Bilirubin Direct Bilirubin AST ALT Alkaline Phosphatase Lactate Dehydrogenase C-Reactive Protein NT-Pro-B Natriuret Pep Total Protein Albumin Lipase Arterial Blood Glucose Arterial Blood Ionized Calcium Ur Specific [place] Vancomycin Trough Coronavirus (PCR) 05/29/21 05/29/21 05/29/21 08:20 11:30 17:53 WBC RBC Hgb Hct MCV MCH RDW Plt Count Lymph % (Auto) Eos % (Auto) Lymph # (Auto) Eos # (Auto) Seg Neutrophils % Seg Neuts % (Manual) Lymphocytes % (Manual) Seg Neutrophils # Man Lymphocytes # (Manual) PT INR APTT D-Dimer ABG pH POC ABG pCO2 POC ABG pO2 ABG pO2 ABG HCO3 ABG O2 Saturation ABG Base Excess ABG Hemoglobin ABG Oxyhemoglobin ABG Sodium ABG Potassium ABG Chloride ABG Glucose Oxyhemoglobin Carboxyhemoglobin Sodium Potassium Chloride Carbon Dioxide BUN Creatinine Glucose POC Glucose 119 H 199 H Lactic Acid Calcium Phosphorus Magnesium Ferritin Total Bilirubin Direct Bilirubin AST ALT Alkaline Phosphatase Lactate Dehydrogenase C-Reactive Protein NT-Pro-B Natriuret Pep Total Protein Albumin Lipase Arterial Blood Glucose Arterial Blood Ionized Calcium Ur Specific [place] Vancomycin Trough Coronavirus (PCR) Positive A 05/30/21 05/30/21 05/30/21 00:37 05:54 06:50 WBC RBC Hgb Hct MCV MCH RDW Plt Count Lymph % (Auto) Eos % (Auto) Lymph # (Auto) Eos # (Auto) Seg Neutrophils % Seg Neuts % (Manual) Lymphocytes % (Manual) Seg Neutrophils # Man Lymphocytes # (Manual) PT INR APTT D-Dimer ABG pH POC ABG pCO2 POC ABG pO2 ABG pO2 ABG HCO3 ABG O2 Saturation ABG Base Excess ABG Hemoglobin ABG Oxyhemoglobin ABG Sodium ABG Potassium ABG Chloride ABG Glucose Oxyhemoglobin Carboxyhemoglobin Sodium Potassium Chloride Carbon Dioxide BUN Creatinine Glucose POC Glucose 117 H 56 L 157 H Lactic Acid Calcium Phosphorus Magnesium Ferritin Total Bilirubin Direct Bilirubin AST ALT Alkaline Phosphatase Lactate Dehydrogenase C-Reactive Protein NT-Pro-B Natriuret Pep Total Protein Albumin Lipase Arterial Blood Glucose Arterial Blood Ionized Calcium Ur Specific [place] Vancomycin Trough Coronavirus (PCR) 05/30/21 05/30/21 05/31/21 17:18 23:54 05:27 WBC RBC Hgb Hct MCV MCH RDW Plt Count Lymph % (Auto) Eos % (Auto) Lymph # (Auto) Eos # (Auto) Seg Neutrophils % Seg Neuts % (Manual) Lymphocytes % (Manual) Seg Neutrophils # Man Lymphocytes # (Manual) PT INR APTT D-Dimer ABG pH POC ABG pCO2 POC ABG pO2 ABG pO2 ABG HCO3 ABG O2 Saturation ABG Base Excess ABG Hemoglobin ABG Oxyhemoglobin ABG Sodium ABG Potassium ABG Chloride ABG Glucose Oxyhemoglobin Carboxyhemoglobin Sodium Potassium Chloride Carbon Dioxide BUN Creatinine Glucose POC Glucose 181 H 130 H 112 H Lactic Acid Calcium Phosphorus Magnesium Ferritin Total Bilirubin Direct Bilirubin AST ALT Alkaline Phosphatase Lactate Dehydrogenase C-Reactive Protein NT-Pro-B Natriuret Pep Total Protein Albumin Lipase Arterial Blood Glucose Arterial Blood Ionized Calcium Ur Specific [place] Vancomycin Trough Coronavirus (PCR) 05/31/21 05/31/21 05/31/21 12:06 17:35 23:56 WBC RBC Hgb Hct MCV MCH RDW Plt Count Lymph % (Auto) Eos % (Auto) Lymph # (Auto) Eos # (Auto) Seg Neutrophils % Seg Neuts % (Manual) Lymphocytes % (Manual) Seg Neutrophils # Man Lymphocytes # (Manual) PT INR APTT D-Dimer ABG pH POC ABG pCO2 POC ABG pO2 ABG pO2 ABG HCO3 ABG O2 Saturation ABG Base Excess ABG Hemoglobin ABG Oxyhemoglobin ABG Sodium ABG Potassium ABG Chloride ABG Glucose Oxyhemoglobin Carboxyhemoglobin Sodium Potassium Chloride Carbon Dioxide BUN Creatinine Glucose POC Glucose 170 H 109 H 136 H Lactic Acid Calcium Phosphorus Magnesium Ferritin Total Bilirubin Direct Bilirubin AST ALT Alkaline Phosphatase Lactate Dehydrogenase C-Reactive Protein NT-Pro-B Natriuret Pep Total Protein Albumin Lipase Arterial Blood Glucose Arterial Blood Ionized Calcium Ur Specific [place] Vancomycin Trough Coronavirus (PCR) 06/02/21 06/02/21 06/02/21 04:28 05:36 08:59 WBC RBC 3.31 L Hgb Hct MCV 100 H MCH RDW 24.7 H Plt Count Lymph % (Auto) 12.8 L Eos % (Auto) 10.2 H Lymph # (Auto) 0.6 L Eos # (Auto) 0.5 H Seg Neutrophils % 75.5 H Seg Neuts % (Manual) Lymphocytes % (Manual) Seg Neutrophils # Man Lymphocytes # (Manual) PT INR APTT D-Dimer ABG pH 7.258 L 7.251 L POC ABG pCO2 73.4 H 67.7 H POC ABG pO2 33.0 L 189.6 H ABG pO2 ABG HCO3 ABG O2 Saturation ABG Base Excess ABG Hemoglobin 11.8 L 11.8 L ABG Oxyhemoglobin 48.8 L ABG Sodium 146.7 H 146.3 H ABG Potassium 3.1 L ABG Chloride 109.0 H ABG Glucose 64 L Oxyhemoglobin Carboxyhemoglobin 1.6 H Sodium Potassium Chloride Carbon Dioxide BUN Creatinine Glucose POC Glucose Lactic Acid Calcium Phosphorus Magnesium Ferritin Total Bilirubin Direct Bilirubin AST ALT Alkaline Phosphatase Lactate Dehydrogenase C-Reactive Protein NT-Pro-B Natriuret Pep Total Protein Albumin Lipase Arterial Blood Glucose 64 L Arterial Blood Ionized Calcium Ur Specific [place] Vancomycin Trough Coronavirus (PCR) 06/02/21 06/02/21 06/02/21 08:59 11:39 14:50 WBC RBC Hgb Hct MCV MCH RDW Plt Count Lymph % (Auto) Eos % (Auto) Lymph # (Auto) Eos # (Auto) Seg Neutrophils % Seg Neuts % (Manual) Lymphocytes % (Manual) Seg Neutrophils # Man Lymphocytes # (Manual) PT INR APTT D-Dimer ABG pH 7.339 L POC ABG pCO2 POC ABG pO2 ABG pO2 91.4 H ABG HCO3 26.2 H ABG O2 Saturation ABG Base Excess ABG Hemoglobin 11.3 L ABG Oxyhemoglobin ABG Sodium ABG Potassium ABG Chloride ABG Glucose Oxyhemoglobin 93.7 L Carboxyhemoglobin Sodium 148 H Potassium 2.9 L* Chloride 111.1 H Carbon Dioxide BUN Creatinine 0.3 L Glucose 29 L* POC Glucose 140 H Lactic Acid Calcium 7.7 L Phosphorus Magnesium 1.50 L Ferritin Total Bilirubin Direct Bilirubin AST ALT Alkaline Phosphatase Lactate Dehydrogenase C-Reactive Protein NT-Pro-B Natriuret Pep Total Protein Albumin Lipase Arterial Blood Glucose Arterial Blood Ionized Calcium Ur Specific [place] Vancomycin Trough Coronavirus (PCR) 06/02/21 06/02/21 06/02/21 17:49 19:47 21:30 WBC RBC Hgb Hct MCV MCH RDW Plt Count Lymph % (Auto) Eos % (Auto) Lymph # (Auto) Eos # (Auto) Seg Neutrophils % Seg Neuts % (Manual) Lymphocytes % (Manual) Seg Neutrophils # Man Lymphocytes # (Manual) PT INR APTT D-Dimer ABG pH POC ABG pCO2 POC ABG pO2 ABG pO2 ABG HCO3 ABG O2 Saturation ABG Base Excess ABG Hemoglobin ABG Oxyhemoglobin ABG Sodium ABG Potassium ABG Chloride ABG Glucose Oxyhemoglobin Carboxyhemoglobin Sodium Potassium Chloride 109.6 H Carbon Dioxide 21 L D BUN Creatinine Glucose 123 H POC Glucose 67 L 117 H Lactic Acid Calcium 7.5 L Phosphorus 5.20 H D Magnesium 2.90 H Ferritin Total Bilirubin Direct Bilirubin AST ALT Alkaline Phosphatase Lactate Dehydrogenase C-Reactive Protein NT-Pro-B Natriuret Pep Total Protein Albumin Lipase Arterial Blood Glucose Arterial Blood Ionized Calcium Ur Specific [place] Vancomycin Trough Coronavirus (PCR) 06/02/21 06/02/21 06/02/21 21:30 22:00 23:10 WBC RBC Hgb Hct MCV MCH RDW Plt Count Lymph % (Auto) Eos % (Auto) Lymph # (Auto) Eos # (Auto) Seg Neutrophils % Seg Neuts % (Manual) Lymphocytes % (Manual) Seg Neutrophils # Man Lymphocytes # (Manual) PT INR APTT D-Dimer ABG pH POC ABG pCO2 POC ABG pO2 ABG pO2 ABG HCO3 ABG O2 Saturation ABG Base Excess ABG Hemoglobin ABG Oxyhemoglobin ABG Sodium ABG Potassium ABG Chloride ABG Glucose Oxyhemoglobin Carboxyhemoglobin Sodium 147 H Potassium Chloride 111.7 H Carbon Dioxide BUN Creatinine Glucose 105 H POC Glucose 122 H Lactic Acid Calcium 7.5 L Phosphorus Magnesium Ferritin Total Bilirubin Direct Bilirubin AST 74 H ALT 96 H Alkaline Phosphatase 207 H Lactate Dehydrogenase C-Reactive Protein NT-Pro-B Natriuret Pep 2326 H Total Protein 5.0 L Albumin 2.0 L Lipase Arterial Blood Glucose Arterial Blood Ionized Calcium Ur Specific [place] Vancomycin Trough Coronavirus (PCR) 06/03/21 06/03/21 06/03/21 04:45 04:45 04:45 WBC 13.6 H RBC 3.44 L Hgb Hct MCV 102 H MCH RDW 25.4 H Plt Count Lymph % (Auto) Eos % (Auto) Lymph # (Auto) Eos # (Auto) Seg Neutrophils % Seg Neuts % (Manual) Lymphocytes % (Manual) Seg Neutrophils # Man Lymphocytes # (Manual) PT INR APTT D-Dimer ABG pH POC ABG pCO2 POC ABG pO2 ABG pO2 ABG HCO3 ABG O2 Saturation ABG Base Excess ABG Hemoglobin ABG Oxyhemoglobin ABG Sodium ABG Potassium ABG Chloride ABG Glucose Oxyhemoglobin Carboxyhemoglobin Sodium Potassium Chloride Carbon Dioxide BUN Creatinine Glucose 151 H POC Glucose Lactic Acid Calcium 7.6 L Phosphorus 6.70 H D Magnesium Ferritin Total Bilirubin Direct Bilirubin AST 68 H ALT 103 H Alkaline Phosphatase 226 H Lactate Dehydrogenase C-Reactive Protein NT-Pro-B Natriuret Pep Total Protein 6.0 L Albumin 2.0 L Lipase Arterial Blood Glucose Arterial Blood Ionized Calcium Ur Specific [place] Vancomycin Trough Coronavirus (PCR) 06/03/21 06/03/21 06/03/21 05:02 10:00 11:46 WBC RBC Hgb Hct MCV MCH RDW Plt Count Lymph % (Auto) Eos % (Auto) Lymph # (Auto) Eos # (Auto) Seg Neutrophils % Seg Neuts % (Manual) Lymphocytes % (Manual) Seg Neutrophils # Man Lymphocytes # (Manual) PT INR APTT D-Dimer ABG pH 7.312 L POC ABG pCO2 POC ABG pO2 ABG pO2 68.5 L ABG HCO3 ABG O2 Saturation 93.0 L ABG Base Excess ABG Hemoglobin 11.5 L ABG Oxyhemoglobin ABG Sodium ABG Potassium ABG Chloride ABG Glucose Oxyhemoglobin 90.1 L Carboxyhemoglobin Sodium Potassium Chloride Carbon Dioxide BUN Creatinine Glucose POC Glucose 139 H 150 H Lactic Acid Calcium Phosphorus Magnesium Ferritin Total Bilirubin Direct Bilirubin AST ALT Alkaline Phosphatase Lactate Dehydrogenase C-Reactive Protein NT-Pro-B Natriuret Pep Total Protein Albumin Lipase Arterial Blood Glucose Arterial Blood Ionized Calcium Ur Specific [place] Vancomycin Trough Coronavirus (PCR) 06/03/21 06/03/21 06/04/21 17:19 23:01 04:00 WBC RBC 2.99 L Hgb 9.7 L Hct 30.0 L MCV 101 H MCH 33 H RDW 25.3 H Plt Count Lymph % (Auto) Eos % (Auto) Lymph # (Auto) Eos # (Auto) Seg Neutrophils % Seg Neuts % (Manual) Lymphocytes % (Manual) Seg Neutrophils # Man Lymphocytes # (Manual) PT INR APTT D-Dimer ABG pH POC ABG pCO2 POC ABG pO2 ABG pO2 ABG HCO3 ABG O2 Saturation ABG Base Excess ABG Hemoglobin ABG Oxyhemoglobin ABG Sodium ABG Potassium ABG Chloride ABG Glucose Oxyhemoglobin Carboxyhemoglobin Sodium Potassium Chloride Carbon Dioxide BUN Creatinine Glucose POC Glucose 135 H 164 H Lactic Acid Calcium Phosphorus Magnesium Ferritin Total Bilirubin Direct Bilirubin AST ALT Alkaline Phosphatase Lactate Dehydrogenase C-Reactive Protein NT-Pro-B Natriuret Pep Total Protein Albumin Lipase Arterial Blood Glucose Arterial Blood Ionized Calcium Ur Specific [place] Vancomycin Trough Coronavirus (PCR) 06/04/21 06/04/21 06/04/21 04:40 05:02 10:00 WBC RBC Hgb Hct MCV MCH RDW Plt Count Lymph % (Auto) Eos % (Auto) Lymph # (Auto) Eos # (Auto) Seg Neutrophils % Seg Neuts % (Manual) Lymphocytes % (Manual) Seg Neutrophils # Man Lymphocytes # (Manual) PT INR APTT D-Dimer ABG pH POC ABG pCO2 52.2 H POC ABG pO2 82.9 L ABG pO2 ABG HCO3 ABG O2 Saturation ABG Base Excess ABG Hemoglobin ABG Oxyhemoglobin ABG Sodium 135.4 L ABG Potassium ABG Chloride ABG Glucose 163 H Oxyhemoglobin Carboxyhemoglobin 1.7 H Sodium Potassium Chloride Carbon Dioxide BUN 19 H Creatinine 0.5 L Glucose 150 H POC Glucose 137 H Lactic Acid Calcium 8.0 L Phosphorus Magnesium Ferritin Total Bilirubin Direct Bilirubin AST ALT 70 H Alkaline Phosphatase 204 H Lactate Dehydrogenase C-Reactive Protein NT-Pro-B Natriuret Pep Total Protein 5.7 L Albumin 1.8 L Lipase Arterial Blood Glucose 163 H Arterial Blood Ionized Calcium Ur Specific [place] Vancomycin Trough Coronavirus (PCR) 06/04/21 06/04/21 06/04/21 12:09 17:43 17:49 WBC RBC Hgb Hct MCV MCH RDW Plt Count Lymph % (Auto) Eos % (Auto) Lymph # (Auto) Eos # (Auto) Seg Neutrophils % Seg Neuts % (Manual) Lymphocytes % (Manual) Seg Neutrophils # Man Lymphocytes # (Manual) PT INR APTT D-Dimer ABG pH POC ABG pCO2 POC ABG pO2 66.6 L ABG pO2 ABG HCO3 ABG O2 Saturation ABG Base Excess ABG Hemoglobin 11.2 L ABG Oxyhemoglobin 91.9 L ABG Sodium 134.9 L ABG Potassium ABG Chloride 97.0 L ABG Glucose 181 H Oxyhemoglobin Carboxyhemoglobin Sodium Potassium Chloride Carbon Dioxide BUN Creatinine Glucose POC Glucose 160 H 170 H Lactic Acid Calcium Phosphorus Magnesium Ferritin Total Bilirubin Direct Bilirubin AST ALT Alkaline Phosphatase Lactate Dehydrogenase C-Reactive Protein NT-Pro-B Natriuret Pep Total Protein Albumin Lipase Arterial Blood Glucose 181 H Arterial Blood Ionized Calcium Ur Specific [place] Vancomycin Trough Coronavirus (PCR) 06/04/21 06/05/21 06/05/21 23:31 06:00 06:00 WBC RBC 3.13 L Hgb 10.0 L Hct MCV 100 H MCH RDW 24.6 H Plt Count 127 L Lymph % (Auto) Eos % (Auto) Lymph # (Auto) Eos # (Auto) Seg Neutrophils % Seg Neuts % (Manual) Lymphocytes % (Manual) Seg Neutrophils # Man Lymphocytes # (Manual) PT INR APTT D-Dimer ABG pH POC ABG pCO2 POC ABG pO2 ABG pO2 ABG HCO3 ABG O2 Saturation ABG Base Excess ABG Hemoglobin ABG Oxyhemoglobin ABG Sodium ABG Potassium ABG Chloride ABG Glucose Oxyhemoglobin Carboxyhemoglobin Sodium 136 L Potassium Chloride 94.2 L Carbon Dioxide 32 H BUN Creatinine 0.3 L Glucose 241 H POC Glucose 149 H Lactic Acid Calcium 8.3 L Phosphorus Magnesium Ferritin Total Bilirubin Direct Bilirubin AST ALT Alkaline Phosphatase 219 H Lactate Dehydrogenase 301 H C-Reactive Protein 22.40 H NT-Pro-B Natriuret Pep Total Protein 6.2 L Albumin 1.8 L Lipase Arterial Blood Glucose Arterial Blood Ionized Calcium Ur Specific [place] Vancomycin Trough Coronavirus (PCR) 06/05/21 06/05/21 06/05/21 06:00 06:00 06:12 WBC RBC Hgb Hct MCV MCH RDW Plt Count Lymph % (Auto) Eos % (Auto) Lymph # (Auto) Eos # (Auto) Seg Neutrophils % Seg Neuts % (Manual) Lymphocytes % (Manual) Seg Neutrophils # Man Lymphocytes # (Manual) PT 15.9 H INR 1.15 H APTT 37.1 H D-Dimer 1282.85 H ABG pH POC ABG pCO2 POC ABG pO2 ABG pO2 ABG HCO3 ABG O2 Saturation ABG Base Excess ABG Hemoglobin ABG Oxyhemoglobin ABG Sodium ABG Potassium ABG Chloride ABG Glucose Oxyhemoglobin Carboxyhemoglobin Sodium Potassium Chloride Carbon Dioxide BUN Creatinine Glucose POC Glucose 228 H Lactic Acid Calcium Phosphorus Magnesium Ferritin 717.1 H Total Bilirubin Direct Bilirubin AST ALT Alkaline Phosphatase Lactate Dehydrogenase C-Reactive Protein NT-Pro-B Natriuret Pep Total Protein Albumin Lipase Arterial Blood Glucose Arterial Blood Ionized Calcium Ur Specific [place] Vancomycin Trough Coronavirus (PCR) 06/05/21 06/05/21 06/05/21 09:17 12:20 17:07 WBC RBC Hgb Hct MCV MCH RDW Plt Count Lymph % (Auto) Eos % (Auto) Lymph # (Auto) Eos # (Auto) Seg Neutrophils % Seg Neuts % (Manual) Lymphocytes % (Manual) Seg Neutrophils # Man Lymphocytes # (Manual) PT INR APTT D-Dimer ABG pH POC ABG pCO2 54.0 H POC ABG pO2 140.6 H ABG pO2 ABG HCO3 ABG O2 Saturation ABG Base Excess ABG Hemoglobin 10.3 L ABG Oxyhemoglobin ABG Sodium 133.6 L ABG Potassium 3.3 L ABG Chloride 97.0 L ABG Glucose 179 H Oxyhemoglobin Carboxyhemoglobin Sodium Potassium Chloride Carbon Dioxide BUN Creatinine Glucose POC Glucose 220 H 197 H Lactic Acid Calcium Phosphorus Magnesium Ferritin Total Bilirubin Direct Bilirubin AST ALT Alkaline Phosphatase Lactate Dehydrogenase C-Reactive Protein NT-Pro-B Natriuret Pep Total Protein Albumin Lipase Arterial Blood Glucose 179 H Arterial Blood Ionized Calcium Ur Specific [place] Vancomycin Trough Coronavirus (PCR) 06/05/21 06/06/21 06/06/21 23:29 05:26 05:26 WBC 3.5 L RBC 3.21 L Hgb Hct MCV 98 H MCH RDW 23.9 H Plt Count 110 L Lymph % (Auto) Eos % (Auto) Lymph # (Auto) Eos # (Auto) Seg Neutrophils % Seg Neuts % (Manual) Lymphocytes % (Manual) Seg Neutrophils # Man Lymphocytes # (Manual) PT INR APTT D-Dimer ABG pH POC ABG pCO2 POC ABG pO2 ABG pO2 ABG HCO3 ABG O2 Saturation ABG Base Excess ABG Hemoglobin ABG Oxyhemoglobin ABG Sodium ABG Potassium ABG Chloride ABG Glucose Oxyhemoglobin Carboxyhemoglobin Sodium Potassium 3.2 L Chloride Carbon Dioxide 34 H BUN Creatinine 0.3 L Glucose 172 H POC Glucose 180 H Lactic Acid Calcium 8.0 L Phosphorus Magnesium Ferritin Total Bilirubin Direct Bilirubin AST ALT Alkaline Phosphatase 207 H Lactate Dehydrogenase C-Reactive Protein NT-Pro-B Natriuret Pep Total Protein 5.5 L Albumin 2.0 L Lipase Arterial Blood Glucose Arterial Blood Ionized Calcium Ur Specific [place] Vancomycin Trough Coronavirus (PCR) 06/06/21 06/06/21 06/06/21 05:30 09:00 11:15 WBC RBC Hgb Hct MCV MCH RDW Plt Count Lymph % (Auto) Eos % (Auto) Lymph # (Auto) Eos # (Auto) Seg Neutrophils % Seg Neuts % (Manual) Lymphocytes % (Manual) Seg Neutrophils # Man Lymphocytes # (Manual) PT INR APTT D-Dimer ABG pH POC ABG pCO2 59.5 H POC ABG pO2 72.0 L ABG pO2 ABG HCO3 ABG O2 Saturation ABG Base Excess ABG Hemoglobin 10.9 L ABG Oxyhemoglobin 91.7 L ABG Sodium 135.8 L ABG Potassium 2.8 L ABG Chloride 96.0 L ABG Glucose 172 H Oxyhemoglobin Carboxyhemoglobin Sodium Potassium Chloride Carbon Dioxide BUN Creatinine Glucose POC Glucose 159 H 172 H Lactic Acid Calcium Phosphorus Magnesium Ferritin Total Bilirubin Direct Bilirubin AST ALT Alkaline Phosphatase Lactate Dehydrogenase C-Reactive Protein NT-Pro-B Natriuret Pep Total Protein Albumin Lipase Arterial Blood Glucose 172 H Arterial Blood Ionized Calcium 4.5 L Ur Specific [place] Vancomycin Trough Coronavirus (PCR) 06/06/21 06/06/21 06/06/21 16:07 21:00 23:46 WBC RBC Hgb Hct MCV MCH RDW Plt Count Lymph % (Auto) Eos % (Auto) Lymph # (Auto) Eos # (Auto) Seg Neutrophils % Seg Neuts % (Manual) Lymphocytes % (Manual) Seg Neutrophils # Man Lymphocytes # (Manual) PT INR APTT D-Dimer ABG pH POC ABG pCO2 59.5 H POC ABG pO2 52.1 L ABG pO2 ABG HCO3 ABG O2 Saturation ABG Base Excess ABG Hemoglobin 11.9 L ABG Oxyhemoglobin 84.0 L ABG Sodium 134.6 L ABG Potassium ABG Chloride ABG Glucose 206 H Oxyhemoglobin Carboxyhemoglobin Sodium Potassium Chloride Carbon Dioxide BUN Creatinine Glucose POC Glucose 122 H 203 H Lactic Acid Calcium Phosphorus Magnesium Ferritin Total Bilirubin Direct Bilirubin AST ALT Alkaline Phosphatase Lactate Dehydrogenase C-Reactive Protein NT-Pro-B Natriuret Pep Total Protein Albumin Lipase Arterial Blood Glucose 206 H Arterial Blood Ionized Calcium Ur Specific [place] Vancomycin Trough Coronavirus (PCR) 06/07/21 06/07/21 06/07/21 04:36 04:36 04:36 WBC RBC Hgb Hct MCV MCH RDW Plt Count Lymph % (Auto) Eos % (Auto) Lymph # (Auto) Eos # (Auto) Seg Neutrophils % Seg Neuts % (Manual) Lymphocytes % (Manual) Seg Neutrophils # Man Lymphocytes # (Manual) PT INR APTT D-Dimer 1938.43 H ABG pH POC ABG pCO2 POC ABG pO2 ABG pO2 ABG HCO3 ABG O2 Saturation ABG Base Excess ABG Hemoglobin ABG Oxyhemoglobin ABG Sodium ABG Potassium ABG Chloride ABG Glucose Oxyhemoglobin Carboxyhemoglobin Sodium Potassium Chloride Carbon Dioxide 31 H BUN Creatinine 0.3 L Glucose 234 H POC Glucose Lactic Acid Calcium Phosphorus 2.40 L Magnesium Ferritin 1287.0 H Total Bilirubin Direct Bilirubin AST ALT Alkaline Phosphatase Lactate Dehydrogenase 270 H C-Reactive Protein 26.70 H NT-Pro-B Natriuret Pep Total Protein Albumin Lipase Arterial Blood Glucose Arterial Blood Ionized Calcium Ur Specific [place] Vancomycin Trough Coronavirus (PCR) 06/07/21 06/07/21 06/07/21 04:36 05:31 10:50 WBC RBC 3.31 L Hgb Hct MCV 99 H MCH RDW 23.9 H Plt Count 133 L Lymph % (Auto) Eos % (Auto) Lymph # (Auto) Eos # (Auto) Seg Neutrophils % Seg Neuts % (Manual) Lymphocytes % (Manual) Seg Neutrophils # Man Lymphocytes # (Manual) PT INR APTT D-Dimer ABG pH POC ABG pCO2 POC ABG pO2 ABG pO2 66.6 L ABG HCO3 35.7 H ABG O2 Saturation ABG Base Excess 10.3 H ABG Hemoglobin 6.2 L ABG Oxyhemoglobin ABG Sodium ABG Potassium ABG Chloride ABG Glucose Oxyhemoglobin 94.7 L Carboxyhemoglobin Sodium Potassium Chloride Carbon Dioxide BUN Creatinine Glucose POC Glucose 252 H Lactic Acid Calcium Phosphorus Magnesium Ferritin Total Bilirubin Direct Bilirubin AST ALT Alkaline Phosphatase Lactate Dehydrogenase C-Reactive Protein NT-Pro-B Natriuret Pep Total Protein Albumin Lipase Arterial Blood Glucose Arterial Blood Ionized Calcium Ur Specific [place] Vancomycin Trough Coronavirus (PCR) 06/07/21 06/07/21 06/07/21 11:56 16:21 23:46 WBC RBC Hgb Hct MCV MCH RDW Plt Count Lymph % (Auto) Eos % (Auto) Lymph # (Auto) Eos # (Auto) Seg Neutrophils % Seg Neuts % (Manual) Lymphocytes % (Manual) Seg Neutrophils # Man Lymphocytes # (Manual) PT INR APTT D-Dimer ABG pH POC ABG pCO2 POC ABG pO2 ABG pO2 ABG HCO3 ABG O2 Saturation ABG Base Excess ABG Hemoglobin ABG Oxyhemoglobin ABG Sodium ABG Potassium ABG Chloride ABG Glucose Oxyhemoglobin Carboxyhemoglobin Sodium Potassium Chloride Carbon Dioxide BUN Creatinine Glucose POC Glucose 178 H 190 H 179 H Lactic Acid Calcium Phosphorus Magnesium Ferritin Total Bilirubin Direct Bilirubin AST ALT Alkaline Phosphatase Lactate Dehydrogenase C-Reactive Protein NT-Pro-B Natriuret Pep Total Protein Albumin Lipase Arterial Blood Glucose Arterial Blood Ionized Calcium Ur Specific [place] Vancomycin Trough Coronavirus (PCR) 06/08/21 06/08/21 06/08/21 04:47 04:47 06:21 WBC 11.1 H RBC 3.02 L Hgb 9.4 L Hct 29.9 L MCV 99 H MCH RDW 24.5 H Plt Count Lymph % (Auto) Eos % (Auto) Lymph # (Auto) Eos # (Auto) Seg Neutrophils % Seg Neuts % (Manual) Lymphocytes % (Manual) Seg Neutrophils # Man Lymphocytes # (Manual) PT INR APTT D-Dimer ABG pH POC ABG pCO2 POC ABG pO2 ABG pO2 ABG HCO3 ABG O2 Saturation ABG Base Excess ABG Hemoglobin ABG Oxyhemoglobin ABG Sodium ABG Potassium ABG Chloride ABG Glucose Oxyhemoglobin Carboxyhemoglobin Sodium Potassium Chloride Carbon Dioxide BUN 28 H Creatinine 0.4 L Glucose 230 H POC Glucose 210 H Lactic Acid Calcium 8.2 L Phosphorus Magnesium Ferritin Total Bilirubin Direct Bilirubin AST ALT Alkaline Phosphatase Lactate Dehydrogenase C-Reactive Protein NT-Pro-B Natriuret Pep Total Protein Albumin Lipase Arterial Blood Glucose Arterial Blood Ionized Calcium Ur Specific [place] Vancomycin Trough Coronavirus (PCR) 06/08/21 11:56 WBC RBC Hgb Hct MCV MCH RDW Plt Count Lymph % (Auto) Eos % (Auto) Lymph # (Auto) Eos # (Auto) Seg Neutrophils % Seg Neuts % (Manual) Lymphocytes % (Manual) Seg Neutrophils # Man Lymphocytes # (Manual) PT INR APTT D-Dimer ABG pH POC ABG pCO2 POC ABG pO2 ABG pO2 ABG HCO3 ABG O2 Saturation ABG Base Excess ABG Hemoglobin ABG Oxyhemoglobin ABG Sodium ABG Potassium ABG Chloride ABG Glucose Oxyhemoglobin Carboxyhemoglobin Sodium Potassium Chloride Carbon Dioxide BUN Creatinine Glucose POC Glucose 157 H Lactic Acid Calcium Phosphorus Magnesium Ferritin Total Bilirubin Direct Bilirubin AST ALT Alkaline Phosphatase Lactate Dehydrogenase C-Reactive Protein NT-Pro-B Natriuret Pep Total Protein Albumin Lipase Arterial Blood Glucose Arterial Blood Ionized Calcium Ur Specific [place] Vancomycin Trough Coronavirus (PCR) Chest x-ray: other (none today) Allied health notes reviewed: nursing
--- NOTE | 2021-06-08 17:54 | Progress Note ---
Assessment and Plan Assessment and plan: This is a 48-year-old female with COPD, pancreatic cancer with radiation s/p pancreatic stent placement, pulmonary fibrosis, chronic respiratory failure on 2 L nasal cannula admitted with sepsis, transaminitis and lactic acidosis now with COVID 19 PNA and acute hypoxic respiratory failure. Neuro: Sedated -Sedated with propofol and fentanyl -RASS goal 0 to -1 -Avoid delirium -Reorientation as needed -Maintain sleep-wake cycle -Daily SAT and SBT when appropriate CV: Hypotension, h/o HTN -Hold home htn medications -s/p vasopressor support with levo -BP monitoring per protocol -Hold home htn medications -s/p IV Lasix X 3 days Respiratory: Acute on chronic respiratory failure, h/o pulmonary fibrosis, acute on chronic respiratory failure on home O2 of 2 L nasal cannula -Intubated on 06/02 with 7.5 oett with 22 @ lips -AM vent settings: AC Rate 25, PEEP 8, tidal volume 350, FiO2 80% -See RT note for titration -ABG and CXR per CCM -VAP bundle -s/p Bipap and Optiflow -Pulmicort, brovana -Daily SBT and SAT trials as tolerated -Continuos SPO2 monitoring -goal above 92% GI: Transaminitis, protein calorie malnutrition, biliary dilation, r/o cholangitis, h/o pancreatic cancer s/p stent placement -CT abdomen/pelvis showed pancreatic cancer with metallic stent with possible occlusion, mild pelvic fluid and mild colonic thickening -GI consulted, appreciate recommendations -MRCP pending-> plan for once respiratory status stable -If stent occlusion/biliary obstruction would recommend IR consult for PTC drain per GI -Ntr consult for TF -ST evaluation -PPI -BR: senokat -24-hour +557 mL -Acute hepatitis panel negative -Trend LFTs -Abd US shows findings similar to hepatomegaly and steatosis without significant abnormalities in the right quadrant -Bentyl QID : Urinary retention -Strict intake and output -Almaraz replaced 06/05 d/t retention -FWF reduced to original ntr orders -Daily weights -Renally dose meds -Avoid nephrotoxins -Repeat potassium -Trend BMP Endo: Hyperglycemia, s/p hypoglycemia -Hypoglycemia protocol -Avoid hypoglycemia -SSI every 6 hours -Lantus, titrate as needed ID: Septic shock, COVID 19 PNA, 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 -COVID 19 PCR (+), initial COVID 19 PCR (-) -Blood cultures x2 no growth to date -Remdisivir 06/03-06/06 -trend LFTS -Dexamethasone 05/28-06/07 -s/p IV meropenem -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 -ID aware, no need to treat per ID -Contact/droplet precautions -Monitor WBC and fever curve -Vitamin C/D/zinc -Trend COVID 19 inflammatory marker Heme: Elevated INR, thrombocytopenia, elevated ddimer, leukocytosis -Trend CBC -Transfuse for hemoglobin less than 7 -SCD to bilateral lower extremities while in bed -Lovenox subcu->changed to arixta -BLE doppplar US negative for DVT -HIT pending -RUE swelling-> RUE doppler neg DVT Oncology: h/o pancreatic head cancer -F/U with outpatient oncologist -Currently on radiation -Not a surgical candidate per GI -Right chest post accessed -CA 19-9 pending The high probability of a clinically significant, sudden or life threatening deterioration of the [resp, GI] system(s) required my full and direct attention, intervention and personal management. The aggregate critical care time was [60] minutes. This time is in addition to time spent performing reported procedures but includes the following: [x] Data Review and interpretation [x] Patient assessment and monitoring of vital signs [x] Documentation [x] Medication orders and management Disposition Plan: icu Total Time Spent with Patient (Minutes): 60 History Interval history: This is a 51-year-old female with COPD, pancreatic cancer and radiation, s/p pancreatic stent placement, pulmonary fibrosis, hypertension and chronic respiratory failure on 2 L oxygen via nasal cannula who presented to emergency department on 05/11 with complaints of right upper quadrant pain which started approximately at 0200 with nausea and vomiting. Work-up in the emergency department included a CTA chest which showed no pulmonary embolism, mild fluid-filled esophagus and distended stomach with bilateral interstitial opacity in the chest, and CT abdomen/pelvis with contrast which showed persistent pancreatic carcinoma with indwelling metallic stent which is suspected to be occluded. Lab work revealed leukocytosis, transaminitis and lactic acidosis. P atient became hypotensive in the emergency department and required 3 L of IV fluid and was eventually started on vasopressors after placement of femoral central line. Patient was started on empiric antibiotics. Admitted to the hospitalist service with consults to GI and CCM for transaminitis, possible sepsis, and lactic acidosis. she was set to discharge to hospice however she test positive to COVID 19 and was eventually intubated. 05/12: Patient remains on high-dose Levophed and vasopressin. Given 1 L LR bolus. GI would like an MRCP to be conducted which has been ordered. Patient cleared for sips of water. Added Tessalon due to severe cough. Potassium repleted. Covid PCR negative. 05/13: Remains on Levophed and vasopressin has been off since yesterday evening. Started on stress dose steroids. MRCP pending. Hypokalemia, hypomagnesemia and hypophosphatemia repleted. Liver enzymes trending down. Started on D5 normal saline yesterday. 05/14: Patient with worsen respiratory status this am, tachypneic with increased O2 requirement. On full support on the Bipap this am with worsening diffuse bilateral opacities on CXR, s/p X1 dose of IV lasix overnight. Patient remains a febrile with no leukocytosis. Will continue IV Lasix X3 doses, f/u CXR in the am. D/W CCM due to patient worsening respiratory status hold on MRCP for today. Patient is off Levophed this am, leave pressors on standby might need to be put back on low dose pressors with IV diuretic. Patient also noted with Rt. fem CVC which was inserted in the ED, most likely due to be change, unsuccessfult PICC by IVT today and patient is refusing Port access at this time. 05/15: Patient remains on continuous Bipap overnight, desat when bipap is removed for mouth care. Plan to wean Fio2 as tolerated for SPO2 goal above 90%. Febrile overnight, TMAX 101.4, on IV abx zosyn, repeat blood culture ordered. Low K and phosph repleted, repeat labs in the am. 05/16: Patient back on full support on the Bipap, still not tolerating FiO2 wean, patient desat in the 80s. D/w [facility] plan to continue continuous bipap for no w, patient going on over 4 days with no nutrition plan to initiate TPN tomorrow. D10w gtt added for hypoglycemia. Patient platelet continue to steadily drop, given patient's history with continue AC for now, H&H is stable, no s/s of any active bleeding. Electrolytes repleted, will continue to trend CBC, BMP, mg, and phos. MRCP canceled, plan to reorder once patient's respiratory status is more stable. 05/17: Patient remains on continuous Bipap. Patient remains on low dose Levophed, plan to wean off pressors as tolerated for a MAP above 65. Clinimix initiated overnight, plan to start TPN tonight. Hyperglycemic overnight, SSI was initiated. Low phos repleted, repeat lab in the am. 05/18: Down to 60% FIo2 on the Bipap, SPO2 above 97%. Off pressros this am, TPN is running. Patient is now hyperglycemic, SSI adjusted. Consider basal dose, lantus if hyperglycemia persist. This am labs noted, hyperkalemia and really high glucose noted totally different from normal trend, orders placed for re draw. 05/19: Overnight events noted. Started on PRN haldol for agitation. Patient placed on heated high Flow at 100%, 40L SPO2 at 100%. Continue to wean Fio2 as tolerated for SPO2 for SPO2 above 92%. Continue TPN for now. Patient still hyperglycemic basal dose lantus added Qhs. 05/20: Patient is tolerating HHFL NC, SPO2 above 95%. Continue HHFL NC during and Bipap at night. Still on TPN for nutrition, hyperglycemia persists- basal insulin increased. Low K and phosp was repleted, repeat lab in the am. 05/21: Patient unable to tolerate OptiFlow for more than couple hours and was placed back on BiPAP due to desaturation. Patient remains on TPN for nutrition which was held today due to hyperkalemia. P.m. BMP ordered but not collected. Patient refused to have port accessed and PICC line ordered. Down grading to [facility] status 05/22: abdominal ultrasound shows findings of emergency megaly and steatosis without other significant abnormality in the right upper quadrant. ST eval ordered and Ntr consult for cyclic TF. midline ordered 05/21 abdominal ultrasound shows findings of emergency megaly and steatosis without other significant abnormality in the right upper quadrant. ST eval orde red and Ntr consult for cyclic TF. midline ordered 05/23/ Patient with acute on chronic resp failure, COPD, pancreatic cancer. She has been transferred to [facility]. She is on BIPAP Hypomag. Replace and recheck in am 05/24/21 Patient with acute on chronic resp failure. Still on BIPAP. To start tube feeding 05/25/21: Patient with acute on chronic respiratory failure, She desaturated down to Oxygen sat 85% today, Will order CT Angio to r/o pulmonary embolism 05/26/21: patient remains on bipap, o2 sat in 90s. CT angio not completed yesterday as patient could not lay flat. Add dilaudid for improved pain control to patient medications and advised staff radiographer to re-attempt CT angio. Patient has a poor prognosis given pulmonary fibrosis and pancreatic cancer. Will likely re- visit talks of palliaitive care as she may benefit more from this. 05/27/21: Remains bipap dependent. D/w patient regarding comfort care/hospice, she is interested. CM consulted. Patient would still like to remain full code 05/28/21: Remains bipap dependent. Spoke with Eriberto (daughter) who states that she is in agreement for comfort measures for her mother. Coordinating with case management for inpatient hospice referral. Daughter also requested to see her mother in person. Unfortunately due to visitation limitations as a result of the COVID-19 pandemic, daughter will only be able to communicate via telecommunication devices at this time. Care staff was notified the patient is [place]-speaking and to call the daughter if they would like to communicate with the patient. 05/29/2021: Spoke with Eriberto (daughter) who states that she is in agreement for comfort measures for her mother. Referral made to [facility]. Patient will discharge to inpatient hospice today. 05/30/2021: Patient's covid test results returned positive. Patient's pending discharge was cancelled as inpatient hospice will not accept a covid + patient. Case Management met with patient's daughter to update on status. Patient's prognosis remains poor. Patient on BiPAP (IPAP 15, EPAP 10, FiO2 85%). Patient started on steroids yesterday and we will start remdesivir today. I discussed the case with pulmonary. Patient will remain a full code I discussed the case with the daughter. 05/31/2021: Patient remains on BiPAP (IPAP 15, EPAP 10, FiO2 80%). Patient's prognosis remains poor. Continue steroids and remdesivir. 06/01/2021. Patient currently off BiPAP and with high flow nasal cannula/nonrebreather 40 L O2 with FiO2 of 100%. Continue BiPAP at night. Patient will be intubated and placed on mechanical ventilation if she decompensates. Patient's prognosis remains poor. Continue steroids and remdesi vir. Pulmonary Taper dexamethasone to 4 mg IV daily. Follow-up serial chest x- ray and ABGs. Patient with gentle diuresis with Lasix 20 mg IV daily. 06/02: Patient intubated and sedated, RASS -5. Now hypotensive with tachycardia, on levophed gtt, continue continuous IVF and titrate pressors for MAP above 65. Hypokalemia and hypomagnesemia repleted, repeat labs 4hrs post treatment. Severely hypoglycemic this am, per RN TF has been on hold since patient was on Bipap. Low BG treated per hypoglycemic protocol, plan to resume TF today. 06/03: RASS of 0 to -1 this am, following commands, remains on sedation. Mirza in WBCs this am, patient remains afebrile, blood culture and sputum culture pending. Probably reactive, patient on IV steroids, remdesevir starting tonight. Continue to trend CBC. Conference call with [facility] and patient's son and daughter today. All questions and concerns were addressed. 06/04: started on stress dose steroids, BLE dopplars pending, Remove almaraz and request records. 06/05: HIT panel sent today, started Arixtra, decrease free water flush, almaraz replaced re retention, Will not treat gram-negative in tracheal aspirate until speciation given normal WBCs and afebrile state. increase in the long acting insulin. Levophed titrated off 06/06: Noted to have subcutaneous air and his stat CXR showed no pneumothorax, vent changes per CCM. Hypokalemia which was repleted. Right upper extremity Doppler ultrasound obtained due to swelling but shows no DVT 06/07: No acute events reported overnight. Sedation increased today due to tachypnea. 06/08: No acute events overnight, will order CA 199, hospital records reviewed, decreasing FiO2. Reglan started due to increased to feeding residuals and placed back on Levophed. Hospitalist Physical - Physical exam Narrative exam: - EENT Eyes: Present: PERRL, EOM intact ENT: clear oral mucosa, dentition normal - Neck Neck: Present: normal ROM - Respiratory Respiratory effort: normal Respiratory: bilateral: diminished - Cardiovascular Rhythm: regular Heart Sounds: Present: S1 & S2. Absent: systolic murmur, diastolic murmur - Extremities Extremities: no ischemia, pulses intact, pulses symmetrical, normal temperature, normal color Extremity abnormal: edema (Right upper extremity), other Peripheral Pulses: within normal limits - Abdominal General gastrointestinal: soft, non-tender, non-distended, normal bowel sounds - Integumentary Integumentary: Present: warm (Subcutaneous air chest/neck), dry - Psychiatric Psychiatric: other (Sedated) - Neurologic Neurologic: other (Intact cough/gag, pupils equal round reactive) - Allied Health Allied health notes reviewed: nursing, RT, social work - Constitutional Vitals: Temp Pulse Resp BP Pulse Ox 98.0 F 95 H 21 88/59 92 06/08/21 16:00 06/08/21 17:00 06/08/21 17:00 06/08/21 17:00 06/08/21 16:45 General appearance: Present: no acute distress, other (Intubated and Sedated) Results - Labs CBC & Chem 7: 06/08/21 04:47 06/08/21 04:47 Labs: Laboratory Last Values WBC 11.1 K/mm3 (4.5-11.0) H 06/08/21 04:47 RBC 3.02 M/mm3 (3.65-5.03) L 06/08/21 04:47 Hgb 9.4 gm/dl (10.1-14.3) L 06/08/21 04:47 Hct 29.9 % (30.3-42.9) L 06/08/21 04:47 MCV 99 fl (79-97) H 06/08/21 04:47 MCH 31 pg (28-32) 06/08/21 04:47 MCHC 31 % (30-34) 06/08/21 04:47 RDW 24.5 % (13.2-15.2) H 06/08/21 04:47 Plt Count 147 K/mm3 (140-440) 06/08/21 04:47 Lymph % (Auto) 12.8 % (13.4-35.0) L 06/02/21 08:59 [place] % (Auto) 1.0 % (0.0-7.3) 06/02/21 08:59 Eos % (Auto) 10.2 % (0.0-4.3) H 06/02/21 08:59 Baso % (Auto) 0.5 % (0.0-1.8) 06/02/21 08:59 Lymph # (Auto) 0.6 K/mm3 (1.2-5.4) L 06/02/21 08:59 [place]assen # (Auto) 0.0 K/mm3 (0.0-0.8) 06/02/21 08:59 Eos # (Auto) 0.5 K/mm3 (0.0-0.4) H 06/02/21 08:59 Baso # (Auto) 0.0 K/mm3 (0.0-0.1) 06/02/21 08:59 Add Manual Diff Complete 05/12/21 04:08 Total Counted 200 05/12/21 04:08 Seg Neutrophils % 75.5 % (40.0-70.0) H 06/02/21 08:59 Seg Neuts % (Manual) 85.5 % (40.0-70.0) H 05/12/21 04:08 Band Neutrophils % 8.5 % 05/12/21 04:08 Lymphocytes % (Manual) 2.0 % (13.4-35.0) L 05/12/21 04:08 Monocytes % (Manual) 3.0 % (0.0-7.3) 05/12/21 04:08 Eosinophils % (Manual) 1.0 % (0.0-4.3) 05/12/21 04:08 Nucleated RBC % Not Reportable 05/12/21 04:08 Seg Neutrophils # 3.6 K/mm3 (1.8-7.7) 06/02/21 08:59 Seg Neutrophils # Man 19.5 K/mm3 (1.8-7.7) H 05/12/21 04:08 Band Neutrophils # 1.9 K/mm3 05/12/21 04:08 Lymphocytes # (Manual) 0.5 K/mm3 (1.2-5.4) L 05/12/21 04:08 Abs React Lymphs (Man) 0.0 K/mm3 05/12/21 04:08 Monocytes # (Manual) 0.7 K/mm3 (0.0-0.8) 05/12/21 04:08 Eosinophils # (Manual) 0.2 K/mm3 (0.0-0.4) 05/12/21 04:08 Basophils # (Manual) 0.0 K/mm3 (0.0-0.1) 05/12/21 04:08 Metamyelocytes # 0.0 K/mm3 05/12/21 04:08 Myelocytes # 0.0 K/mm3 05/12/21 04:08 Promyelocytes # 0.0 K/mm3 05/12/21 04:08 Blast Cells # 0.0 K/mm3 05/12/21 04:08 WBC Morphology Not Reportable 05/12/21 04:08 Hypersegmented Neuts Not Reportable 05/12/21 04:08 Hyposegmented Neuts Not Reportable 05/12/21 04:08 Hypogranular Neuts Not Reportable 05/12/21 04:08 Smudge Cells Not Reportable 05/12/21 04:08 Toxic Granulation Not Reportable 05/12/21 04:08 Toxic Vacuolation Not Reportable 05/12/21 04:08 Dohle Bodies Not Reportable 05/12/21 04:08 Pelger-Huet Anomaly Not Reportable 05/12/21 04:08 Elizabeth Rods Not Reportable 05/12/21 04:08 Platelet Estimate Consistent w auto 05/12/21 04:08 Clumped Platelets Not Reportable 05/12/21 04:08 Plt Clumps, EDTA Not Reportable 05/12/21 04:08 Large Platelets Not Reportable 05/12/21 04:08 Giant Platelets Not Reportable 05/12/21 04:08 Platelet Satelliting Not Reportable 05/12/21 04:08 Plt Morphology Comment Not Reportable 05/12/21 04:08 RBC Morphology Not Reportable 05/12/21 04:08 Dimorphic RBCs Not Reportable 05/12/21 04:08 Polychromasia Not Reportable 05/12/21 04:08 Hypochromasia Not Reportable 05/12/21 04:08 Poikilocytosis Not Reportable 05/12/21 04:08 Anisocytosis 1+ 05/12/21 04:08 Microcytosis Not Reportable 05/12/21 04:08 Macrocytosis Not Reportable 05/12/21 04:08 Spherocytes Not Reportable 05/12/21 04:08 Pappenheimer Bodies Not Reportable 05/12/21 04:08 Sickle Cells Not Reportable 05/12/21 04:08 Target Cells Not Reportable 05/12/21 04:08 Tear Drop Cells Not Reportable 05/12/21 04:08 Ovalocytes Not Reportable 05/12/21 04:08 Helmet Cells Not Reportable 05/12/21 04:08 Sibley-Lacon Bodies Not Reportable 05/12/21 04:08 [place] Rings Not Reportable 05/12/21 04:08 [place] Cells Not Reportable 05/12/21 04:08 Bite Cells Not Reportable 05/12/21 04:08 Crenated Cell Not Reportable 05/12/21 04:08 Elliptocytes Not Reportable 05/12/21 04:08 Acanthocytes (Spur) Not Reportable 05/12/21 04:08 Rouleaux Not Reportable 05/12/21 04:08 Hemoglobin C Crystals Not Reportable 05/12/21 04:08 Schistocytes Not Reportable 05/12/21 04:08 Malaria parasites Not Reportable 05/12/21 04:08 Tahir Bodies Not Reportable 05/12/21 04:08 Hem Pathologist Commnt No 05/12/21 04:08 PT 15.9 Sec. (12.2-14.9) H 06/05/21 06:00 INR 1.15 (0.87-1.13) H 06/05/21 06:00 APTT 37.1 Sec. (24.2-36.6) H 06/05/21 06:00 D-Dimer 1938.43 ng/mlDDU (0-234) H 06/07/21 04:36 ABG pH 7.426 pH Units (7.350-7.450) 06/07/21 10:50 POC ABG pCO2 59.5 mmHg (32.0-48.0) H 06/06/21 21:00 ABG pCO2 55.5 mm Hg 06/07/21 10:50 POC ABG pO2 52.1 mmHg (83-108) L 06/06/21 21:00 ABG pO2 66.6 mm Hg (80.0-90.0) L 06/07/21 10:50 POC ABG HCO3 33.2 06/06/21 21:00 ABG HCO3 35.7 mmol/L (20.0-26.0) H 06/07/21 10:50 ABG O2 Saturation 97.5 % (95.0-99.0) 06/07/21 10:50 ABG O2 Content 8.3 (0.0-44) 06/07/21 10:50 POC ABG Base Excess 6.3 06/06/21 21:00 ABG Base Excess 10.3 mmol/L (-2.0-3.0) H 06/07/21 10:50 ABG Hemoglobin 6.2 gm/dl (12.0-16.0) L 06/07/21 10:50 ABG Oxyhemoglobin 84.0 (94-98) L 06/06/21 21:00 ABG Carboxyhemoglobin 2.3 % (0.0-5.0) 06/07/21 10:50 ABG Methemoglobin 0.5 % (0.0-1.5) 06/07/21 10:50 ABG Sodium 134.6 mmol/L (136.0-145.0) L 06/06/21 21:00 ABG Potassium 3.9 mmol/L (3.40-4.50) 06/06/21 21:00 ABG Chloride 98.0 mmol/L (98-107) 06/06/21 21:00 ABG Glucose 206 mg/dL (65-95) H 06/06/21 21:00 Oxyhemoglobin 94.7 % (95.0-99.0) L 06/07/21 10:50 Carboxyhemoglobin 1.3 (0.5-1.5) 06/06/21 21:00 FiO2 80 % 06/07/21 10:50 FiO2 % 70.0 06/06/21 21:00 Sodium 142 mmol/L (137-145) 06/08/21 04:47 Potassium 3.7 mmol/L (3.6-5.0) 06/08/21 04:47 Chloride 100.0 mmol/L (98-107) 06/08/21 04:47 Carbon Dioxide 29 mmol/L (22-30) 06/08/21 04:47 Anion Gap 17 mmol/L 06/08/21 04:47 BUN 28 mg/dL (7-17) H 06/08/21 04:47 Creatinine 0.4 mg/dL (0.6-1.2) L 06/08/21 04:47 Estimated GFR > 60 ml/min 06/08/21 04:47 BUN/Creatinine Ratio 70 % 06/08/21 04:47 Glucose 230 mg/dL (65-100) H 06/08/21 04:47 POC Glucose 157 mg/dL (70-105) H 06/08/21 11:56 Hemoglobin A1c 5.2 % (4-6) 05/12/21 04:08 Lactic Acid 3.30 mmol/L (0.7-2.0) H* 05/12/21 Unknown Calcium 8.2 mg/dL (8.4-10.2) L 06/08/21 04:47 Phosphorus 2.40 mg/dL (2.5-4.5) L 06/07/21 04:36 Magnesium 1.70 mg/dL (1.7-2.3) 06/07/21 04:36 Ferritin 1287.0 ng/mL (10.0-200.0) H 06/07/21 04:36 Total Bilirubin 0.80 mg/dL (0.1-1.2) 06/06/21 05:26 Direct Bilirubin 1.6 mg/dL (0-0.2) H 05/23/21 10:15 Indirect Bilirubin 0.7 mg/dL 05/23/21 10:15 AST 25 units/L (5-40) 06/06/21 05:26 ALT 42 units/L (7-56) 06/06/21 05:26 Alkaline Phosphatase 207 units/L (35-129) H 06/06/21 05:26 Lactate Dehydrogenase 270 units/L (91-180) H 06/07/21 04:36 C-Reactive Protein 26.70 mg/dL (0.00-1.30) H 06/07/21 04:36 NT-Pro-B Natriuret Pep 2326 pg/mL (0-900) H 06/02/21 22:00 Total Protein 5.5 g/dL (6.3-8.2) L 06/06/21 05:26 Albumin 2.0 g/dL (3.9-5) L 06/06/21 05:26 Albumin/Globulin Ratio 0.6 % 06/06/21 05:26 Triglycerides 95 mg/dL (2-149) 06/07/21 04:36 Lipase 3 units/L (13-60) L 05/11/21 05:43 Arterial Blood Glucose 206 mg/dL (65-95) H 06/06/21 21:00 Arterial Blood Ionized Calcium 4.5 mg/dL (4.6-5.3) L 06/06/21 09:00 Urine Color Deisi (Yellow) 05/11/21 11:18 Urine Turbidity Clear (Clear) 05/11/21 11:18 Urine pH 6.0 (5.0-7.0) 05/11/21 11:18 Ur Specific [place] 1.035 (1.003-1.030) H 05/11/21 11:18 Urine Protein 100 mg/dl mg/dL (Negative) 05/11/21 11:18 Urine Glucose (UA) Neg mg/dL (Negative) 05/11/21 11:18 Urine Ketones Neg mg/dL (Negative) 05/11/21 11:18 Urine Blood Neg (Negative) 05/11/21 11:18 Urine Nitrite Neg (Negative) 05/11/21 11:18 Urine Bilirubin Neg (Negative) 05/11/21 11:18 Urine Urobilinogen < 2.0 mg/dL (<2.0) 05/11/21 11:18 Ur Leukocyte Esterase Neg (Negative) 05/11/21 11:18 Urine WBC (Auto) 2.0 /HPF (0.0-6.0) 05/11/21 11:18 Urine RBC (Auto) 1.0 /HPF (0.0-6.0) 05/11/21 11:18 Urine Mucus Few /HPF 05/11/21 11:18 Vancomycin Trough 25.3 ug/mL (5.0-20.0) H 05/14/21 15:20 Coronavirus (PCR) Positive (Negative) A 05/29/21 08:20 Hepatitis A IgM Ab Non-reactive (NonReactive) 05/12/21 12:30 Hep Bs Antigen Nonreactive (Negative) 05/12/21 12:30 Hep B Core IgM Ab Non-reactive (NonReactive) 05/12/21 12:30 Hepatitis C Antibody Non-reactive (NonReactive) 05/12/21 12:30 Microbiology: Microbiology 06/03/21 00:41 Tracheal Aspirate Sputum Culture - Final Stenotrophomonas Maltophilia Almaraz/IV: Voiding Method Indwelling Catheter Active Medications - Current Medications Current Medications: Generic Name Dose Route Start Last Admin Trade Name Freq PRN Reason Stop Dose Admin Acetaminophen 650 mg 05/11/21 21:40 05/14/21 20:06 Acetaminophen 325 Mg Tab PO 650 mg Q4H PRN Administration Pain MILD(1-3)/Fever >100.5/WOODS Lipase/Protease/Amylase 1 each 05/22/21 16:30 Lipase 10,500/Protease 25,000/Amylase 43,750 (Units) Dr Baker FEEDTUBE PRN PRN For Clogged Feeding Tube Arformoterol Tartrate 15 mcg 05/12/21 08:00 06/08/21 07:38 Arformoterol 15 Mcg/2 Ml Nebu IH 15 mcg Q12HRT ABRAHAN Administration Ascorbic Acid 500 mg 06/02/21 22:00 06/08/21 10:29 Ascorbic Acid 500 Mg Tab PO 500 mg BID ABRAHAN Administration Budesonide 0.5 mg 05/12/21 08:00 06/08/21 07:38 Budesonide 0.5 Mg/2 Ml Nebu IH 0.5 mg Q12HRT ABRAHAN Administration Dextrose 50 ml 05/12/21 11:57 06/02/21 18:34 Dextrose 50% In Water (25gm) 50 Ml Syringe IV 50 ml Q30MIN PRN Administration Hypoglycemia Protocol Dicyclomine HCl 10 mg 05/23/21 14:00 06/08/21 14:35 Dicyclomine 10 Mg Cap PO 10 mg QID ABRAHAN Administration Fentanyl 50 mcg 06/02/21 05:20 Fentanyl 100 Mcg/2 Ml Inj IV Q10MIN PRN ANALGESIA Fondaparinux 2.5 mg 06/05/21 22:00 06/07/21 21:02 Fondaparinux 2.5 Mg/0.5 Ml Inj SUB-Q 2.5 mg QDAY@2200 ABRAHAN Administration Haloperidol Lactate 5 mg 05/19/21 15:00 06/01/21 21:04 Haloperidol Lactate 5 Mg/1 Ml Inj IV 5 mg Q8H PRN Administration Agitation Hydrocortisone Sodium Succinate 100 mg 06/04/21 14:00 06/08/21 14:35 Hydrocortisone Sod Succ 100 Mg/2 Ml Vial IV 100 mg Q8HR BARAHAN Administration Hydrophilic Ointment 1 applic 06/02/21 17:44 Lip Therapy [place] TP Q2HR PRN Dry Lips NORepinephrine/NS 8 MG-250 ML 8 mg in 250 mls @ 3.75 mls/hr 06/02/21 06:00 06/08/21 11:30 Norepinephrine/Ns 8 Mg-250 Ml (Double Conc) IV 4 mcg/min TITRATE ABRAHAN 7.5 mls/hr Administration Protocol 2 MCG/MIN Propofol 1,000 mg in 100 mls @ 1.932 mls/hr 06/02/21 06:00 06/08/21 08:09 Diprivan 10 Mg/Ml IV 10 mcg/kg/min TITR ABRAHAN 3.864 mls/hr Titration Protocol 5 MCG/KG/MIN Fentanyl Citrate 2,000 mcg in 100 mls @ 3.22 mls/hr 06/02/21 06:00 06/08/21 11:54 Fentanyl Drip Premix IV 3 mcg/kg/hr TITR ABRAHAN 9.66 mls/hr Administration Protocol 1 MCG/KG/HR Sodium Phosphate 15 mmol/ 255 mls @ 125 mls/hr 06/08/21 19:48 Sodium Chloride IV 06/08/21 21:50 ONCE ONE Insulin Glargine 10 units 06/08/21 22:00 Insulin Glargine 100 Units/Ml SUB-Q QHS [facility] Insulin Human Lispro 0 unit 05/17/21 12:00 06/08/21 13:24 Insulin Lispro 100 Unit/Ml SUB-Q 3 unit Q6HR [facility] Administration Protocol Lansoprazole 30 mg 05/28/21 10:00 06/08/21 10:30 Lansoprazole 30 Mg Solutab FEEDTUBE 30 mg QDAY [facility] Administration Metoclopramide HCl 10 mg 05/11/21 21:40 Metoclopramide 10 Mg/2 Ml Inj IV Q6H PRN Nausea And Vomiting Metoclopramide HCl 10 mg 06/08/21 12:00 06/08/21 13:24 Metoclopramide 10 Mg/2 Ml Inj IV 10 mg Q6HR [facility] Administration Multi-Ingred Cream/Lotion/Oil/Oint 1 applic 06/02/21 17:44 Mineral Oil/Petrolatum, White Ophth Oint 3.5 Gm OU Q4HR PRN Dry Eye(s) Ondansetron HCl 4 mg 05/11/21 21:40 05/15/21 09:57 Ondansetron 4 Mg/2 Ml Inj IV 4 mg Q8H PRN Administration Nausea And Vomiting Senna/Docusate Sodium 1 tab 06/02/21 22:00 06/08/21 10:31 Sennosides/Docusate Sodium 8.6/50 Mg Tab FEEDTUBE Not Given BID ABRAHAN Simple Syrup 15 ml 05/22/21 16:30 Simple Syrup 15 Ml FEEDTUBE PRN PRN Hypoglycemia Simple Syrup 30 ml 05/22/21 16:30 Simple Syrup 15 Ml FEEDTUBE PRN PRN Hypoglycemia Sodium Bicarbonate 325 mg 05/22/21 16:30 Sodium Bicarbonate 325 Mg Tab FEEDTUBE PRN PRN For Clogged Feeding Tube Sodium Chloride 10 ml 05/11/21 22:00 06/08/21 10:30 Sodium Chloride 0.9% 10 Ml Flush Syringe IV 10 ml BID ABRAHAN Administration Sodium Chloride 10 ml 05/11/21 21:40 05/23/21 21:00 Sodium Chloride 0.9% 10 Ml Flush Syringe IV 10 ml PRN PRN Administration LINE FLUSH Zinc Sulfate 220 mg 06/02/21 22:00 06/08/21 10:30 Zinc Sulfate 220 Mg Cap PO 220 mg BID ABRAHAN Administration Nutrition/Malnutrition Assess - Dietary Evaluation Nutrition/Malnutrition Findings: Nutrition Notes Start: 05/13/21 09:47 Freq: Status: Active Protocol: Document 06/08/21 10:15 [facility] (Rec: 06/08/21 10:22 [facility] [id number]) Nutrition Notes Initial or Follow up Reassessment Current Diagnosis COPD,Respiratory Failure Other Pertinent Diagnosis COVID-19 (+), Pancreatic CA, pulmonary fibrosis Current Diet TF - Glucerna 1.2 at 50ml/hr Labs/Tests BUN 28 BG 230 Pertinent Medications Vit C, Zn sulfate, 10 units Lantus, Propofol at 3.864ml/hr (provides 102 kcal), Senokot Height 5 ft 2 in Weight 64.4 kg [place] Body Weight (kg) 50.00 BMI 25.9 Weight Status Appropriate Subjective/Other Information Pt remains on vent support. Per RN note last pm, pt with gastric residuals of 350ml; TF held. This am, residuals were 10ml. Spoke with RN via phone at 10:15; will resume TF this am. Burn Absent Trauma Absent #2 Nutrition Diagnosis Malnutrition Diagnosis Progress(for reassessment Continues documentation) Is patient on ventilator? Yes Is Patient Ambulatory and/or Out of Bed No [facility] [phone] Calculation Used for Recommendations [facility] Additional Notes Pro needs 1.2-2g/k-129g/ day Fluid needs 1ml/kcal Nutrition Intervention Nutrition Support: Resume Glucerna 1.2 at 50ml/hr when medically feasible Goal #1 Resume TF to meet nutrient needs Follow-Up By: 06/09/21 Additional Comments F/U: TF restart/tolerance
[2021-06-08] MEDS ORDERED: SODIUM PHOSPHATE 15 MMOL in SODIUM CHLORIDE 0.9% 250ML 250 ML IV ONE (19:48)
[2021-06-08] MEDS: FONDAPARINUX 2.5 MG/0.5 ML INJ SUB-Q SCH (21:27)
[2021-06-08] MEDS: INSULIN GLARGINE 100 UNITS/ML SUB-Q SCH (21:30)
[2021-06-09] MEDS: INSULIN LISPRO 100 UNIT/ML SUB-Q SCH ×4 (00:41→17:40)
[2021-06-09] MEDS: METOCLOPRAMIDE 10 MG/2 ML INJ IV SCH ×4 (00:55→17:40)
[2021-06-09] MEDS: FREE WATER PO SCH ×6 (05:07→22:00)
[2021-06-09] MEDS: HYDROCORTISONE SOD SUCC 100 MG/2 ML VIAL IV SCH ×3 (05:08→22:06)
[2021-06-09 05:33] LABS: Hematocrit 31.2 % (30.3-42.9); Hemoglobin 9.8 gm/dl (10.1-14.3); Mean Corpuscular HGB Conc 31 % (30-34); Mean Corpuscular Volume 99 fl (79-97); Platelet Count 124 K/mm3 (140-440); Red Blood Count 3.14 M/mm3 (3.65-5.03)
[2021-06-09 05:34] LABS: Red Cell Distribution Width 24.3 % (13.2-15.2)
[2021-06-09 05:51] LABS: Blood Urea Nitrogen 29 mg/dL (7-17); Calcium 7.7 mg/dL (8.4-10.2); Hemolysis Index 5
[2021-06-09 06:03] LABS: BUN/Creatinine Ratio 58
[2021-06-09] MEDS: ARFORMOTEROL 15 MCG/2 ML NEBU IH SCH ×2 (07:17→21:28)
[2021-06-09] MEDS: BUDESONIDE 0.5 MG/2 ML NEBU IH SCH ×2 (07:17→21:28)
[2021-06-09] MEDS: fentaNYL DRIP Premix 2,000 MCG/100 ML BAG IV SCH ×2 (09:41→20:52)
[2021-06-09] MEDS: ASCORBIC ACID 500 MG TAB PO SCH ×2 (09:42→22:06)
[2021-06-09] MEDS: LANSOPRAZOLE 30 MG SOLUTAB FEEDTUBE SCH (09:42)
[2021-06-09] MEDS: DICYCLOMINE 10 MG CAP PO SCH ×4 (09:42→22:06)
[2021-06-09] MEDS: ZINC SULFATE 220 MG CAP PO SCH ×2 (09:42→22:06)
[2021-06-09] MEDS: SENNOSIDES/DOCUSATE SODIUM 8.6/50 MG TAB FEEDTUBE SCH ×2 (09:43→21:42)
[2021-06-09] MEDS: NORepinephrine/NS 8 MG-250 ML 8 MG/250 ML INFUS..BTL IV SCH ×2 (11:12→22:08)
--- NOTE | 2021-06-09 15:35 | Progress Note ---
Assessment and Plan Septic shock possible hepatobiliary source Lactic acidosis h/o pulmonary fibrosis, Acute on chronic respiratory failure on home O2 of 2 L nasal cannula Transaminitis, biliary dilation, r/o cholangitis Hyperchloremia, metabolic acidosis, hypokalemia Hypoglycemia h/o pancreatic head cancer- chemoradiation therapy h/o Hypertension Thrombocytopenia - follow am CXR - continue current vent settings (keep peep at 8 re: barotrauma) - upper extremity dopplers negative - wean Levophed for target MAP > 65 mmHg - continue care as below otherwise; - prn diuresis - continue daily SAT and SBT assessment as tolerated - sedation prn for target RASS 0 to -1 - VAP bundle addressed - continue lung protective strategies - continue bronchodilators with pulmonary hygiene per RT - wean per pulmonary driven protocols otherwise - MRCP pending as she remains tenuous from a respiratory standpoint - continue anti-infective's; de-escalate per ID recommendations - accuchecks with glycemic control per SSI (While critically ill target blood glucose of 140-180 mg/dL; avoid hypoglycemia) - wean supplemental oxygen for target O2 sat's > 90% acutely - aspiration precautions - avoid nephrotoxins, renally dose all medications - prn analgesia per pain score - Maintenance of sleep-wake cycle, avoid delirium - G.I. & VTE prophylaxis - PT/OT/ROM exercises - mobility protocols for pressure ulcer prophylaxis - Monitor hemodynamics closely - continue other care per attending / other consultants - discharge planning ongoing concurrently COVID SPECIFIC INTERVENTIONS - Remdesivir as per ID/Pulmonary developed protocols (ordered) - continue systemic steroids for severe COVID-19 infection empirically (on Solucortef) - follow repeat COVID tests results - zinc and vitamin C supplementation (ordered) - Monitor inflammatory markers per facility protocol - ferritin, Ddimer, CRP - therapeutic anticoagulation per system Protocol based on d-dimer and clinical considerations (DVT prophylaxis) - Contact and airborne isolation .... Re-evaluate in am & prn CONDITION: CRITICAL PROGNOSIS: GUARDED CODE STATUS: FULL CODE The high probability of a clinically significant, sudden or life-threatening deterioration of the [respiratory, cardiovascular, GI & neurologic] system(s) required my full and direct attention, intervention and personal management. The aggregate critical care time was [34] minutes without overlap. Time includes spent on; [x] Data Review and interpretation [x] Patient assessment and monitoring of vital signs [x] Documentation [x] Medication orders and management Subjective Date of service: 06/09/21 Principal diagnosis: Septic shock; Pulm fibrosis; Hypoxemic resp failure; COVID-19 infxn Interval history: Patient is seen today for: Septic shock; pulmonary fibrosis; Acute on chronic hypoxemic respiratory failure; Transaminitis; h/o pancreatic head cancer; HTN Seen and examined at bedside; 24hour events reviewed; nursing and respiratory care staff consulted; no adverse overnight events reported to me; resting in bed; remains on MVS; tube feeds going and no emesis; remains on 80% FiO2 without room to wean; await CXR; no emesis or overt aspiration and no high grade fevers Objective Vital Signs - 12hr 06/09/21 06/09/21 06/09/21 03:45 04:00 04:15 Temperature 99.2 F Pulse Rate 116 H 116 H 118 H Pulse Rate [ Bilateral Throughout] Pulse Rate [ 112 H From Monitor] Respiratory 17 28 H 29 H Rate Respiratory Rate [Bilateral Throughout] Blood Pressure 97/59 89/54 84/53 O2 Sat by Pulse 90 89 91 Oximetry 06/09/21 06/09/21 06/09/21 04:30 04:45 05:00 Temperature Pulse Rate 116 H 114 H 112 H Pulse Rate [ Bilateral Throughout] Pulse Rate [ From Monitor] Respiratory 26 H 29 H 23 Rate Respiratory Rate [Bilateral Throughout] Blood Pressure 88/52 82/50 82/50 O2 Sat by Pulse 90 92 90 Oximetry 06/09/21 06/09/21 06/09/21 05:15 05:30 05:45 Temperature Pulse Rate 117 H 118 H 119 H Pulse Rate [ Bilateral Throughout] Pulse Rate [ From Monitor] Respiratory 25 H 23 23 Rate Respiratory Rate [Bilateral Throughout] Blood Pressure 91/54 86/52 80/54 O2 Sat by Pulse 91 92 91 Oximetry 06/09/21 06/09/21 06/09/21 06:00 06:15 06:30 Temperature Pulse Rate 121 H 123 H 119 H Pulse Rate [ Bilateral Throughout] Pulse Rate [ From Monitor] Respiratory 16 22 18 Rate Respiratory Rate [Bilateral Throughout] Blood Pressure 90/56 95/61 98/60 O2 Sat by Pulse 92 92 92 Oximetry 06/09/21 06/09/21 06/09/21 06:45 07:00 07:14 Temperature Pulse Rate 114 H 114 H 113 H Pulse Rate [ Bilateral Throughout] Pulse Rate [ From Monitor] Respiratory Rate Respiratory Rate [Bilateral Throughout] Blood Pressure 93/55 103/59 O2 Sat by Pulse 92 89 Oximetry 06/09/21 06/09/21 06/09/21 07:15 07:17 07:30 Temperature Pulse Rate 114 H 114 H Pulse Rate [ 110 H Bilateral Throughout] Pulse Rate [ From Monitor] Respiratory H 22 Rate Respiratory 24 Rate [Bilateral Throughout] Blood Pressure 87/54 87/49 O2 Sat by Pulse 90 Oximetry 06/09/21 06/09/21 06/09/21 07:45 08:00 08:15 Temperature Pulse Rate 116 H 113 H 111 H Pulse Rate [ Bilateral Throughout] Pulse Rate [ 113 H From Monitor] Respiratory 28 H 25 H 25 H Rate Respiratory Rate [Bilateral Throughout] Blood Pressure 87/45 81/48 100/50 O2 Sat by Pulse 94 90 Oximetry 06/09/21 06/09/21 06/09/21 08:30 08:45 09:00 Temperature Pulse Rate 113 H 115 H 113 H Pulse Rate [ Bilateral Throughout] Pulse Rate [ From Monitor] Respiratory 25 H 26 H 25 H Rate Respiratory Rate [Bilateral Throughout] Blood Pressure 93/47 86/42 81/48 O2 Sat by Pulse 91 100 Oximetry 06/09/21 06/09/21 06/09/21 09:15 09:30 09:45 Temperature Pulse Rate 112 H 112 H 111 H Pulse Rate [ Bilateral Throughout] Pulse Rate [ From Monitor] Respiratory Rate Respiratory Rate [Bilateral Throughout] Blood Pressure 79/46 88/43 86/49 O2 Sat by Pulse 92 92 Oximetry 06/09/21 06/09/21 06/09/21 10:00 10:15 10:30 Temperature Pulse Rate 105 H 103 H 103 H Pulse Rate [ Bilateral Throughout] Pulse Rate [ From Monitor] Respiratory 25 H 25 H 24 Rate Respiratory Rate [Bilateral Throughout] Blood Pressure 78/42 80/44 88/47 O2 Sat by Pulse 90 92 92 Oximetry 06/09/21 06/09/21 06/09/21 10:45 11:00 11:15 Temperature Pulse Rate 104 H 104 H 103 H Pulse Rate [ Bilateral Throughout] Pulse Rate [ From Monitor] Respiratory 25 H 25 H 25 H Rate Respiratory Rate [Bilateral Throughout] Blood Pressure 87/50 86/45 85/44 O2 Sat by Pulse 92 91 92 Oximetry 0106/09/21 06/09/21 11:30 11:40 11:45 Temperature Pulse Rate 100 H 104 H 101 H Pulse Rate [ Bilateral Throughout] Pulse Rate [ From Monitor] Respiratory 25 H 23 Rate Respiratory Rate [Bilateral Throughout] Blood Pressure 88/45 91/44 85/50 O2 Sat by Pulse 92 93 92 Oximetry 06/09/21 06/09/21 06/09/21 12:00 12:03 12:15 Temperature Pulse Rate 100 H 101 H 101 H Pulse Rate [ Bilateral Throughout] Pulse Rate [ 100 H From Monitor] Respiratory 25 H 25 H 25 H Rate Respiratory Rate [Bilateral Throughout] Blood Pressure 81/48 90/49 O2 Sat by Pulse 82 L 92 92 Oximetry 06/09/21 06/09/21 06/09/21 12:30 12:45 13:00 Temperature Pulse Rate 102 H 102 H 101 H Pulse Rate [ Bilateral Throughout] Pulse Rate [ From Monitor] Respiratory 23 26 H 24 Rate Respiratory Rate [Bilateral Throughout] Blood Pressure 82/49 92/50 91/51 O2 Sat by Pulse 93 93 93 Oximetry 06/09/21 06/09/21 06/09/21 13:15 13:30 13:45 Temperature Pulse Rate 103 H 104 H 105 H Pulse Rate [ Bilateral Throughout] Pulse Rate [ From Monitor] Respiratory 25 H 23 26 H Rate Respiratory Rate [Bilateral Throughout] Blood Pressure 89/48 93/45 87/45 O2 Sat by Pulse 92 89 89 Oximetry Constitutional: appears uncomfortable, other (mildly increased respiratory effort at rest on MVS) Eyes: non-icteric ENT: oropharynx moist, other (ETT 24 cm JOSH) Neck: supple, no lymphadenopathy, no JVD Effort: mildly labored Ascultation: Bilateral: diminished breath sounds, rales (inspiratory, bases) Percussion: Bilateral: not dull Cardiovascular: regular rate and rhythm, other (S1,S2) Gastrointestinal: normoactive bowel sounds, soft, non-tender, non-distended (protuberant) Integumentary: other (SQ emphysema to upper chest) Extremities: no cyanosis, pulses normal, edema (1+ edema), other (right femoral CVL) Neurologic: normal mental status, non-focal exam (grossly), pupils equal and round, other (sedated) Psychiatric: other (unable to assess re: AMS) CBC and BMP: 06/09/21 04:48 06/09/21 04:48 ABG, PT/INR, D-dimer: ABG ABG pH 7.363 (7.320-7.450) 06/09/21 02:45 POC ABG pCO2 56.0 mmHg (32.0-48.0) H 06/09/21 02:45 ABG pCO2 55.5 mm Hg 06/07/21 10:50 POC ABG pO2 54.3 mmHg (83-108) L 06/09/21 02:45 ABG pO2 66.6 mm Hg (80.0-90.0) L 06/07/21 10:50 POC ABG HCO3 31.1 06/09/21 02:45 ABG O2 Saturation 87.2 (0-100) 06/09/21 02:45 PT/INR, D-dimer PT 15.9 Sec. (12.2-14.9) H 06/05/21 06:00 INR 1.15 (0.87-1.13) H 06/05/21 06:00 D-Dimer 1938.43 ng/mlDDU (0-234) H 06/07/21 04:36 Abnormal lab findings: Abnormal Labs 05/11/21 05/11/21 05/11/21 05:43 05:43 05:43 WBC RBC Hgb Hct MCV 98 H MCH RDW 17.7 H Plt Count Lymph % (Auto) 10.8 L Eos % (Auto) Lymph # (Auto) 0.6 L Eos # (Auto) Seg Neutrophils % 84.1 H Seg Neuts % (Manual) Lymphocytes % (Manual) Seg Neutrophils # Man Lymphocytes # (Manual) PT 16.0 H INR 1.16 H APTT D-Dimer ABG pH POC ABG pCO2 POC ABG pO2 ABG pO2 ABG HCO3 ABG O2 Saturation ABG Base Excess ABG Hemoglobin ABG Oxyhemoglobin ABG Sodium ABG Potassium ABG Chloride ABG Glucose Oxyhemoglobin Carboxyhemoglobin Sodium Potassium Chloride Carbon Dioxide 21 L BUN 4 L Creatinine 0.4 L Glucose POC Glucose Lactic Acid Calcium 8.3 L Phosphorus Magnesium Ferritin Total Bilirubin 2.10 H Direct Bilirubin 1.4 H AST 335 H ALT 57 H Alkaline Phosphatase 339 H Lactate Dehydrogenase C-Reactive Protein NT-Pro-B Natriuret Pep Total Protein Albumin 2.4 L Lipase 3 L Arterial Blood Glucose Arterial Blood Ionized Calcium Ur Specific [place] Vancomycin Trough Coronavirus (PCR) 05/11/21 05/11/21 05/12/21 11:18 12:28 04:08 WBC RBC Hgb Hct MCV MCH RDW Plt Count Lymph % (Auto) Eos % (Auto) Lymph # (Auto) Eos # (Auto) Seg Neutrophils % Seg Neuts % (Manual) Lymphocytes % (Manual) Seg Neutrophils # Man Lymphocytes # (Manual) PT INR APTT D-Dimer ABG pH POC ABG pCO2 POC ABG pO2 ABG pO2 ABG HCO3 ABG O2 Saturation ABG Base Excess ABG Hemoglobin ABG Oxyhemoglobin ABG Sodium ABG Potassium ABG Chloride ABG Glucose Oxyhemoglobin Carboxyhemoglobin Sodium Potassium Chloride Carbon Dioxide BUN Creatinine Glucose POC Glucose Lactic Acid 4.20 H* 4.50 H* Calcium Phosphorus Magnesium Ferritin Total Bilirubin Direct Bilirubin AST ALT Alkaline Phosphatase Lactate Dehydrogenase C-Reactive Protein NT-Pro-B Natriuret Pep Total Protein Albumin Lipase Arterial Blood Glucose Arterial Blood Ionized Calcium Ur Specific [place] 1.035 H Vancomycin Trough Coronavirus (PCR) 05/12/21 05/12/21 05/12/21 04:08 04:08 09:47 WBC 22.8 H RBC 3.39 L Hgb Hct MCV 98 H MCH RDW 17.7 H Plt Count Lymph % (Auto) Eos % (Auto) Lymph # (Auto) Eos # (Auto) Seg Neutrophils % Seg Neuts % (Manual) 85.5 H Lymphocytes % (Manual) 2.0 L Seg Neutrophils # Man 19.5 H Lymphocytes # (Manual) 0.5 L PT INR APTT D-Dimer ABG pH POC ABG pCO2 POC ABG pO2 ABG pO2 ABG HCO3 ABG O2 Saturation ABG Base Excess ABG Hemoglobin ABG Oxyhemoglobin ABG Sodium ABG Potassium ABG Chloride ABG Glucose Oxyhemoglobin Carboxyhemoglobin Sodium Potassium 3.3 L Chloride 108.9 H Carbon Dioxide 17 L BUN 4 L Creatinine 0.5 L Glucose 106 H POC Glucose Lactic Acid 2.60 H* Calcium 6.4 L D Phosphorus Magnesium Ferritin Total Bilirubin 2.10 H Direct Bilirubin AST 156 H ALT 61 H Alkaline Phosphatase 317 H Lactate Dehydrogenase C-Reactive Protein NT-Pro-B Natriuret Pep Total Protein 5.4 L D Albumin 1.8 L Lipase Arterial Blood Glucose Arterial Blood Ionized Calcium Ur Specific [place] Vancomycin Trough Coronavirus (PCR) 05/12/21 05/12/21 05/12/21 11:47 12:30 12:36 WBC RBC Hgb Hct MCV MCH RDW Plt Count Lymph % (Auto) Eos % (Auto) Lymph # (Auto) Eos # (Auto) Seg Neutrophils % Seg Neuts % (Manual) Lymphocytes % (Manual) Seg Neutrophils # Man Lymphocytes # (Manual) PT INR APTT D-Dimer ABG pH POC ABG pCO2 POC ABG pO2 ABG pO2 ABG HCO3 ABG O2 Saturation ABG Base Excess ABG Hemoglobin ABG Oxyhemoglobin ABG Sodium ABG Potassium ABG Chloride ABG Glucose Oxyhemoglobin Carboxyhemoglobin Sodium Potassium Chloride Carbon Dioxide BUN Creatinine Glucose POC Glucose 59 L 120 H Lactic Acid 2.50 H* Calcium Phosphorus Magnesium Ferritin Total Bilirubin Direct Bilirubin AST ALT Alkaline Phosphatase Lactate Dehydrogenase C-Reactive Protein NT-Pro-B Natriuret Pep Total Protein Albumin Lipase Arterial Blood Glucose Arterial Blood Ionized Calcium Ur Specific [place] Vancomycin Trough Coronavirus (PCR) 05/12/21 05/12/21 05/13/21 23:45 Unknown 04:00 WBC 19.8 H RBC 3.52 L Hgb Hct MCV 98 H MCH RDW 18.5 H Plt Count Lymph % (Auto) Eos % (Auto) Lymph # (Auto) Eos # (Auto) Seg Neutrophils % Seg Neuts % (Manual) Lymphocytes % (Manual) Seg Neutrophils # Man Lymphocytes # (Manual) PT INR APTT D-Dimer ABG pH POC ABG pCO2 POC ABG pO2 ABG pO2 ABG HCO3 ABG O2 Saturation ABG Base Excess ABG Hemoglobin ABG Oxyhemoglobin ABG Sodium ABG Potassium ABG Chloride ABG Glucose Oxyhemoglobin Carboxyhemoglobin Sodium Potassium Chloride Carbon Dioxide BUN Creatinine Glucose POC Glucose 119 H Lactic Acid 3.30 H* Calcium Phosphorus Magnesium Ferritin Total Bilirubin Direct Bilirubin AST ALT Alkaline Phosphatase Lactate Dehydrogenase C-Reactive Protein NT-Pro-B Natriuret Pep Total Protein Albumin Lipase Arterial Blood Glucose Arterial Blood Ionized Calcium Ur Specific [place] Vancomycin Trough Coronavirus (PCR) 05/13/21 05/13/21 05/13/21 04:00 05:42 12:19 WBC RBC Hgb Hct MCV MCH RDW Plt Count Lymph % (Auto) Eos % (Auto) Lymph # (Auto) Eos # (Auto) Seg Neutrophils % Seg Neuts % (Manual) Lymphocytes % (Manual) Seg Neutrophils # Man Lymphocytes # (Manual) PT INR APTT D-Dimer ABG pH POC ABG pCO2 POC ABG pO2 ABG pO2 ABG HCO3 ABG O2 Saturation ABG Base Excess ABG Hemoglobin ABG Oxyhemoglobin ABG Sodium ABG Potassium ABG Chloride ABG Glucose Oxyhemoglobin Carboxyhemoglobin Sodium Potassium 3.4 L Chloride 107.1 H Carbon Dioxide 19 L BUN 4 L Creatinine 0.4 L Glucose 157 H POC Glucose 143 H 110 H Lactic Acid Calcium 7.4 L D Phosphorus 1.60 L Magnesium 1.50 L Ferritin Total Bilirubin 1.40 H Direct Bilirubin AST 95 H ALT Alkaline Phosphatase 328 H Lactate Dehydrogenase C-Reactive Protein NT-Pro-B Natriuret Pep Total Protein 5.5 L Albumin 1.6 L Lipase Arterial Blood Glucose Arterial Blood Ionized Calcium Ur Specific [place] Vancomycin Trough Coronavirus (PCR) 05/14/21 05/14/21 05/14/21 06:15 06:15 10:25 WBC 11.7 H RBC 3.41 L Hgb Hct MCV 98 H MCH RDW 18.6 H Plt Count Lymph % (Auto) Eos % (Auto) Lymph # (Auto) Eos # (Auto) Seg Neutrophils % Seg Neuts % (Manual) Lymphocytes % (Manual) Seg Neutrophils # Man Lymphocytes # (Manual) PT INR APTT D-Dimer ABG pH POC ABG pCO2 POC ABG pO2 ABG pO2 76.0 L ABG HCO3 27.2 H ABG O2 Saturation ABG Base Excess ABG Hemoglobin 11.5 L ABG Oxyhemoglobin ABG Sodium ABG Potassium ABG Chloride ABG Glucose Oxyhemoglobin 94.4 L Carboxyhemoglobin Sodium Potassium 3.2 L Chloride Carbon Dioxide BUN 6 L Creatinine 0.5 L Glucose 103 H POC Glucose Lactic Acid Calcium 7.3 L Phosphorus 1.70 L Magnesium Ferritin Total Bilirubin Direct Bilirubin AST 66 H ALT Alkaline Phosphatase 295 H Lactate Dehydrogenase C-Reactive Protein NT-Pro-B Natriuret Pep Total Protein 5.3 L Albumin 1.8 L Lipase Arterial Blood Glucose Arterial Blood Ionized Calcium Ur Specific [place] Vancomycin Trough Coronavirus (PCR) 05/14/21 05/14/21 05/14/21 15:20 15:20 17:26 WBC RBC Hgb Hct MCV MCH RDW Plt Count Lymph % (Auto) Eos % (Auto) Lymph # (Auto) Eos # (Auto) Seg Neutrophils % Seg Neuts % (Manual) Lymphocytes % (Manual) Seg Neutrophils # Man Lymphocytes # (Manual) PT INR APTT D-Dimer ABG pH POC ABG pCO2 POC ABG pO2 ABG pO2 ABG HCO3 ABG O2 Saturation ABG Base Excess ABG Hemoglobin ABG Oxyhemoglobin ABG Sodium ABG Potassium ABG Chloride ABG Glucose Oxyhemoglobin Carboxyhemoglobin Sodium 146 H D Potassium Chloride 108.4 H Carbon Dioxide BUN 5 L Creatinine 0.5 L Glucose POC Glucose 63 L Lactic Acid Calcium 7.6 L Phosphorus Magnesium Ferritin Total Bilirubin Direct Bilirubin AST ALT Alkaline Phosphatase Lactate Dehydrogenase C-Reactive Protein NT-Pro-B Natriuret Pep Total Protein Albumin Lipase Arterial Blood Glucose Arterial Blood Ionized Calcium Ur Specific [place] Vancomycin Trough 25.3 H Coronavirus (PCR) 05/14/21 05/15/21 05/15/21 21:27 00:03 00:29 WBC RBC Hgb Hct MCV MCH RDW Plt Count Lymph % (Auto) Eos % (Auto) Lymph # (Auto) Eos # (Auto) Seg Neutrophils % Seg Neuts % (Manual) Lymphocytes % (Manual) Seg Neutrophils # Man Lymphocytes # (Manual) PT INR APTT D-Dimer ABG pH POC ABG pCO2 POC ABG pO2 ABG pO2 ABG HCO3 ABG O2 Saturation ABG Base Excess ABG Hemoglobin ABG Oxyhemoglobin ABG Sodium ABG Potassium ABG Chloride ABG Glucose Oxyhemoglobin Carboxyhemoglobin Sodium Potassium Chloride Carbon Dioxide BUN Creatinine Glucose POC Glucose 52 L 54 L 129 H Lactic Acid Calcium Phosphorus Magnesium Ferritin Total Bilirubin Direct Bilirubin AST ALT Alkaline Phosphatase Lactate Dehydrogenase C-Reactive Protein NT-Pro-B Natriuret Pep Total Protein Albumin Lipase Arterial Blood Glucose Arterial Blood Ionized Calcium Ur Specific [place] Vancomycin Trough Coronavirus (PCR) 05/15/21 05/15/21 05/15/21 04:45 04:45 11:58 WBC RBC 3.24 L Hgb Hct MCV 98 H MCH RDW 18.5 H Plt Count 122 L Lymph % (Auto) 7.4 L Eos % (Auto) Lymph # (Auto) 0.6 L Eos # (Auto) Seg Neutrophils % 81.2 H Seg Neuts % (Manual) Lymphocytes % (Manual) Seg Neutrophils # Man Lymphocytes # (Manual) PT INR APTT D-Dimer ABG pH POC ABG pCO2 POC ABG pO2 ABG pO2 ABG HCO3 ABG O2 Saturation ABG Base Excess ABG Hemoglobin ABG Oxyhemoglobin ABG Sodium ABG Potassium ABG Chloride ABG Glucose Oxyhemoglobin Carboxyhemoglobin Sodium 146 H Potassium 3.1 L Chloride 108.8 H Carbon Dioxide BUN 6 L Creatinine Glucose 121 H POC Glucose 68 L Lactic Acid Calcium 7.5 L Phosphorus 2.30 L D Magnesium Ferritin Total Bilirubin 1.90 H Direct Bilirubin AST 55 H ALT Alkaline Phosphatase 231 H Lactate Dehydrogenase C-Reactive Protein NT-Pro-B Natriuret Pep Total Protein 5.4 L Albumin 1.5 L Lipase Arterial Blood Glucose Arterial Blood Ionized Calcium Ur Specific [place] Vancomycin Trough Coronavirus (PCR) 05/15/21 05/16/21 05/16/21 13:50 00:06 00:43 WBC RBC Hgb Hct MCV MCH RDW Plt Count Lymph % (Auto) Eos % (Auto) Lymph # (Auto) Eos # (Auto) Seg Neutrophils % Seg Neuts % (Manual) Lymphocytes % (Manual) Seg Neutrophils # Man Lymphocytes # (Manual) PT INR APTT D-Dimer ABG pH POC ABG pCO2 POC ABG pO2 ABG pO2 ABG HCO3 ABG O2 Saturation ABG Base Excess ABG Hemoglobin ABG Oxyhemoglobin ABG Sodium ABG Potassium ABG Chloride ABG Glucose Oxyhemoglobin Carboxyhemoglobin Sodium Potassium Chloride Carbon Dioxide BUN Creatinine Glucose POC Glucose 147 H 54 L 116 H Lactic Acid Calcium Phosphorus Magnesium Ferritin Total Bilirubin Direct Bilirubin AST ALT Alkaline Phosphatase Lactate Dehydrogenase C-Reactive Protein NT-Pro-B Natriuret Pep Total Protein Albumin Lipase Arterial Blood Glucose Arterial Blood Ionized Calcium Ur Specific [place] Vancomycin Trough Coronavirus (PCR) 05/16/21 05/16/21 05/16/21 04:31 04:31 05:58 WBC RBC 3.12 L Hgb 9.8 L Hct MCV 98 H MCH RDW 18.2 H Plt Count 115 L Lymph % (Auto) Eos % (Auto) Lymph # (Auto) Eos # (Auto) Seg Neutrophils % Seg Neuts % (Manual) Lymphocytes % (Manual) Seg Neutrophils # Man Lymphocytes # (Manual) PT INR APTT D-Dimer ABG pH POC ABG pCO2 POC ABG pO2 ABG pO2 ABG HCO3 ABG O2 Saturation ABG Base Excess ABG Hemoglobin ABG Oxyhemoglobin ABG Sodium ABG Potassium ABG Chloride ABG Glucose Oxyhemoglobin Carboxyhemoglobin Sodium 146 H Potassium 3.2 L Chloride Carbon Dioxide BUN 5 L Creatinine 0.5 L Glucose POC Glucose 61 L Lactic Acid Calcium 7.2 L Phosphorus 2.30 L Magnesium Ferritin Total Bilirubin Direct Bilirubin AST ALT Alkaline Phosphatase Lactate Dehydrogenase C-Reactive Protein NT-Pro-B Natriuret Pep Total Protein Albumin Lipase Arterial Blood Glucose Arterial Blood Ionized Calcium Ur Specific [place] Vancomycin Trough Coronavirus (PCR) 05/16/21 05/16/21 05/17/21 08:11 23:42 04:15 WBC RBC Hgb Hct MCV MCH RDW Plt Count Lymph % (Auto) Eos % (Auto) Lymph # (Auto) Eos # (Auto) Seg Neutrophils % Seg Neuts % (Manual) Lymphocytes % (Manual) Seg Neutrophils # Man Lymphocytes # (Manual) PT INR APTT D-Dimer ABG pH POC ABG pCO2 POC ABG pO2 ABG pO2 ABG HCO3 ABG O2 Saturation ABG Base Excess ABG Hemoglobin ABG Oxyhemoglobin ABG Sodium ABG Potassium ABG Chloride ABG Glucose Oxyhemoglobin Carboxyhemoglobin Sodium Potassium Chloride Carbon Dioxide BUN Creatinine Glucose POC Glucose 58 L 200 H Lactic Acid Calcium Phosphorus Magnesium Ferritin Total Bilirubin 1.70 H Direct Bilirubin 1.5 H AST 43 H ALT Alkaline Phosphatase 196 H Lactate Dehydrogenase C-Reactive Protein NT-Pro-B Natriuret Pep Total Protein 5.4 L Albumin 1.6 L Lipase Arterial Blood Glucose Arterial Blood Ionized Calcium Ur Specific [place] Vancomycin Trough Coronavirus (PCR) 05/17/21 05/17/21 05/17/21 04:15 04:15 05:07 WBC RBC 3.26 L Hgb Hct MCV 98 H MCH RDW 18.9 H Plt Count 114 L Lymph % (Auto) Eos % (Auto) Lymph # (Auto) Eos # (Auto) Seg Neutrophils % Seg Neuts % (Manual) Lymphocytes % (Manual) Seg Neutrophils # Man Lymphocytes # (Manual) PT INR APTT D-Dimer ABG pH POC ABG pCO2 POC ABG pO2 ABG pO2 ABG HCO3 ABG O2 Saturation ABG Base Excess ABG Hemoglobin ABG Oxyhemoglobin ABG Sodium ABG Potassium ABG Chloride ABG Glucose Oxyhemoglobin Carboxyhemoglobin Sodium Potassium Chloride Carbon Dioxide 35 H BUN 5 L Creatinine Glucose 274 H POC Glucose 249 H Lactic Acid Calcium 7.7 L Phosphorus 1.50 L D Magnesium Ferritin Total Bilirubin Direct Bilirubin AST ALT Alkaline Phosphatase Lactate Dehydrogenase C-Reactive Protein NT-Pro-B Natriuret Pep Total Protein Albumin Lipase Arterial Blood Glucose Arterial Blood Ionized Calcium Ur Specific [place] Vancomycin Trough Coronavirus (PCR) 05/17/21 05/17/21 05/17/21 11:56 16:29 23:37 WBC RBC Hgb Hct MCV MCH RDW Plt Count Lymph % (Auto) Eos % (Auto) Lymph # (Auto) Eos # (Auto) Seg Neutrophils % Seg Neuts % (Manual) Lymphocytes % (Manual) Seg Neutrophils # Man Lymphocytes # (Manual) PT INR APTT D-Dimer ABG pH POC ABG pCO2 POC ABG pO2 ABG pO2 ABG HCO3 ABG O2 Saturation ABG Base Excess ABG Hemoglobin ABG Oxyhemoglobin ABG Sodium ABG Potassium ABG Chloride ABG Glucose Oxyhemoglobin Carboxyhemoglobin Sodium Potassium Chloride Carbon Dioxide BUN Creatinine Glucose POC Glucose 176 H 219 H 150 H Lactic Acid Calcium Phosphorus Magnesium Ferritin Total Bilirubin Direct Bilirubin AST ALT Alkaline Phosphatase Lactate Dehydrogenase C-Reactive Protein NT-Pro-B Natriuret Pep Total Protein Albumin Lipase Arterial Blood Glucose Arterial Blood Ionized Calcium Ur Specific [place] Vancomycin Trough Coronavirus (PCR) 05/18/21 05/18/21 05/18/21 04:00 05:22 09:00 WBC RBC 3.34 L Hgb Hct MCV MCH RDW 18.8 H Plt Count Lymph % (Auto) Eos % (Auto) Lymph # (Auto) Eos # (Auto) Seg Neutrophils % Seg Neuts % (Manual) Lymphocytes % (Manual) Seg Neutrophils # Man Lymphocytes # (Manual) PT INR APTT D-Dimer ABG pH POC ABG pCO2 POC ABG pO2 ABG pO2 ABG HCO3 ABG O2 Saturation ABG Base Excess ABG Hemoglobin ABG Oxyhemoglobin ABG Sodium ABG Potassium ABG Chloride ABG Glucose Oxyhemoglobin Carboxyhemoglobin Sodium Potassium 5.4 H D Chloride 97.5 L Carbon Dioxide 33 H BUN Creatinine 0.4 L Glucose 461 H POC Glucose 181 H Lactic Acid Calcium 7.2 L Phosphorus 5.00 H D Magnesium Ferritin Total Bilirubin Direct Bilirubin AST ALT Alkaline Phosphatase Lactate Dehydrogenase C-Reactive Protein NT-Pro-B Natriuret Pep Total Protein Albumin Lipase Arterial Blood Glucose Arterial Blood Ionized Calcium Ur Specific [place] Vancomycin Trough Coronavirus (PCR) 05/18/21 05/18/21 05/18/21 11:16 12:50 16:29 WBC RBC Hgb Hct MCV MCH RDW Plt Count Lymph % (Auto) Eos % (Auto) Lymph # (Auto) Eos # (Auto) Seg Neutrophils % Seg Neuts % (Manual) Lymphocytes % (Manual) Seg Neutrophils # Man Lymphocytes # (Manual) PT INR APTT D-Dimer ABG pH POC ABG pCO2 POC ABG pO2 ABG pO2 ABG HCO3 ABG O2 Saturation ABG Base Excess ABG Hemoglobin ABG Oxyhemoglobin ABG Sodium ABG Potassium ABG Chloride ABG Glucose Oxyhemoglobin Carboxyhemoglobin Sodium Potassium 3.4 L D Chloride Carbon Dioxide 36 H BUN 19 H Creatinine 0.4 L Glucose 231 H POC Glucose 168 H 196 H Lactic Acid Calcium 7.5 L Phosphorus 1.80 L D Magnesium Ferritin Total Bilirubin Direct Bilirubin AST ALT Alkaline Phosphatase Lactate Dehydrogenase C-Reactive Protein NT-Pro-B Natriuret Pep Total Protein Albumin Lipase Arterial Blood Glucose Arterial Blood Ionized Calcium Ur Specific [place] Vancomycin Trough Coronavirus (PCR) 05/19/21 05/19/21 05/19/21 00:05 04:08 05:07 WBC RBC Hgb Hct MCV MCH RDW Plt Count Lymph % (Auto) Eos % (Auto) Lymph # (Auto) Eos # (Auto) Seg Neutrophils % Seg Neuts % (Manual) Lymphocytes % (Manual) Seg Neutrophils # Man Lymphocytes # (Manual) PT INR APTT D-Dimer ABG pH POC ABG pCO2 POC ABG pO2 ABG pO2 ABG HCO3 ABG O2 Saturation ABG Base Excess ABG Hemoglobin ABG Oxyhemoglobin ABG Sodium ABG Potassium ABG Chloride ABG Glucose Oxyhemoglobin Carboxyhemoglobin Sodium 146 H Potassium Chloride Carbon Dioxide 35 H BUN 25 H Creatinine 0.4 L Glucose 218 H POC Glucose 164 H 203 H Lactic Acid Calcium 7.2 L Phosphorus Magnesium Ferritin Total Bilirubin Direct Bilirubin AST ALT Alkaline Phosphatase Lactate Dehydrogenase C-Reactive Protein NT-Pro-B Natriuret Pep Total Protein Albumin Lipase Arterial Blood Glucose Arterial Blood Ionized Calcium Ur Specific [place] Vancomycin Trough Coronavirus (PCR) 05/19/21 05/19/21 05/19/21 12:16 14:14 17:11 WBC RBC Hgb Hct MCV MCH RDW Plt Count Lymph % (Auto) Eos % (Auto) Lymph # (Auto) Eos # (Auto) Seg Neutrophils % Seg Neuts % (Manual) Lymphocytes % (Manual) Seg Neutrophils # Man Lymphocytes # (Manual) PT INR APTT D-Dimer ABG pH 7.482 H POC ABG pCO2 POC ABG pO2 ABG pO2 111.7 H ABG HCO3 31.4 H ABG O2 Saturation ABG Base Excess 7.2 H ABG Hemoglobin 11.1 L ABG Oxyhemoglobin ABG Sodium ABG Potassium ABG Chloride ABG Glucose Oxyhemoglobin Carboxyhemoglobin Sodium Potassium Chloride Carbon Dioxide BUN Creatinine Glucose POC Glucose 206 H 194 H Lactic Acid Calcium Phosphorus Magnesium Ferritin Total Bilirubin Direct Bilirubin AST ALT Alkaline Phosphatase Lactate Dehydrogenase C-Reactive Protein NT-Pro-B Natriuret Pep Total Protein Albumin Lipase Arterial Blood Glucose Arterial Blood Ionized Calcium Ur Specific [place] Vancomycin Trough Coronavirus (PCR) 05/20/21 05/20/21 05/20/21 00:01 04:30 06:09 WBC RBC Hgb Hct MCV MCH RDW Plt Count Lymph % (Auto) Eos % (Auto) Lymph # (Auto) Eos # (Auto) Seg Neutrophils % Seg Neuts % (Manual) Lymphocytes % (Manual) Seg Neutrophils # Man Lymphocytes # (Manual) PT INR APTT D-Dimer ABG pH POC ABG pCO2 POC ABG pO2 ABG pO2 ABG HCO3 ABG O2 Saturation ABG Base Excess ABG Hemoglobin ABG Oxyhemoglobin ABG Sodium ABG Potassium ABG Chloride ABG Glucose Oxyhemoglobin Carboxyhemoglobin Sodium Potassium 3.5 L Chloride Carbon Dioxide BUN 24 H Creatinine 0.3 L Glucose 254 H POC Glucose 209 H 210 H Lactic Acid Calcium 7.5 L Phosphorus 1.90 L D Magnesium Ferritin Total Bilirubin 1.60 H Direct Bilirubin AST 201 H ALT 170 H Alkaline Phosphatase 169 H Lactate Dehydrogenase C-Reactive Protein NT-Pro-B Natriuret Pep Total Protein 5.3 L Albumin 1.9 L Lipase Arterial Blood Glucose Arterial Blood Ionized Calcium Ur Specific [place] Vancomycin Trough Coronavirus (PCR) 05/20/21 05/20/21 05/20/21 11:41 16:47 22:21 WBC RBC Hgb Hct MCV MCH RDW Plt Count Lymph % (Auto) Eos % (Auto) Lymph # (Auto) Eos # (Auto) Seg Neutrophils % Seg Neuts % (Manual) Lymphocytes % (Manual) Seg Neutrophils # Man Lymphocytes # (Manual) PT INR APTT D-Dimer ABG pH POC ABG pCO2 POC ABG pO2 ABG pO2 ABG HCO3 ABG O2 Saturation ABG Base Excess ABG Hemoglobin ABG Oxyhemoglobin ABG Sodium ABG Potassium ABG Chloride ABG Glucose Oxyhemoglobin Carboxyhemoglobin Sodium Potassium Chloride Carbon Dioxide BUN Creatinine Glucose POC Glucose 158 H 232 H 211 H Lactic Acid Calcium Phosphorus Magnesium Ferritin Total Bilirubin Direct Bilirubin AST ALT Alkaline Phosphatase Lactate Dehydrogenase C-Reactive Protein NT-Pro-B Natriuret Pep Total Protein Albumin Lipase Arterial Blood Glucose Arterial Blood Ionized Calcium Ur Specific [place] Vancomycin Trough Coronavirus (PCR) 05/21/21 05/21/21 05/21/21 00:35 04:00 04:00 WBC RBC 3.28 L Hgb Hct MCV MCH RDW 18.7 H Plt Count 125 L Lymph % (Auto) Eos % (Auto) Lymph # (Auto) Eos # (Auto) Seg Neutrophils % Seg Neuts % (Manual) Lymphocytes % (Manual) Seg Neutrophils # Man Lymphocytes # (Manual) PT INR APTT D-Dimer ABG pH POC ABG pCO2 POC ABG pO2 ABG pO2 ABG HCO3 ABG O2 Saturation ABG Base Excess ABG Hemoglobin ABG Oxyhemoglobin ABG Sodium ABG Potassium ABG Chloride ABG Glucose Oxyhemoglobin Carboxyhemoglobin Sodium Potassium 5.1 H D Chloride 108.7 H Carbon Dioxide BUN 21 H Creatinine 0.2 L Glucose 242 H POC Glucose 230 H Lactic Acid Calcium 7.3 L Phosphorus Magnesium Ferritin Total Bilirubin Direct Bilirubin AST ALT Alkaline Phosphatase Lactate Dehydrogenase C-Reactive Protein NT-Pro-B Natriuret Pep Total Protein Albumin Lipase Arterial Blood Glucose Arterial Blood Ionized Calcium Ur Specific [place] Vancomycin Trough Coronavirus (PCR) 05/21/21 05/21/21 05/21/21 05:08 11:47 17:43 WBC RBC Hgb Hct MCV MCH RDW Plt Count Lymph % (Auto) Eos % (Auto) Lymph # (Auto) Eos # (Auto) Seg Neutrophils % Seg Neuts % (Manual) Lymphocytes % (Manual) Seg Neutrophils # Man Lymphocytes # (Manual) PT INR APTT D-Dimer ABG pH POC ABG pCO2 POC ABG pO2 ABG pO2 ABG HCO3 ABG O2 Saturation ABG Base Excess ABG Hemoglobin ABG Oxyhemoglobin ABG Sodium ABG Potassium ABG Chloride ABG Glucose Oxyhemoglobin Carboxyhemoglobin Sodium Potassium Chloride Carbon Dioxide BUN Creatinine Glucose POC Glucose 196 H 139 H 147 H Lactic Acid Calcium Phosphorus Magnesium Ferritin Total Bilirubin Direct Bilirubin AST ALT Alkaline Phosphatase Lactate Dehydrogenase C-Reactive Protein NT-Pro-B Natriuret Pep Total Protein Albumin Lipase Arterial Blood Glucose Arterial Blood Ionized Calcium Ur Specific [place] Vancomycin Trough Coronavirus (PCR) 05/21/21 05/21/21 05/22/21 17:57 23:32 04:16 WBC RBC Hgb Hct MCV MCH RDW Plt Count Lymph % (Auto) Eos % (Auto) Lymph # (Auto) Eos # (Auto) Seg Neutrophils % Seg Neuts % (Manual) Lymphocytes % (Manual) Seg Neutrophils # Man Lymphocytes # (Manual) PT INR APTT D-Dimer ABG pH POC ABG pCO2 POC ABG pO2 ABG pO2 ABG HCO3 ABG O2 Saturation ABG Base Excess ABG Hemoglobin ABG Oxyhemoglobin ABG Sodium ABG Potassium ABG Chloride ABG Glucose Oxyhemoglobin Carboxyhemoglobin Sodium Potassium 5.2 H Chloride Carbon Dioxide BUN 19 H Creatinine 0.2 L Glucose 154 H POC Glucose 218 H 185 H Lactic Acid Calcium 7.5 L Phosphorus Magnesium Ferritin Total Bilirubin 3.00 H Direct Bilirubin 2.3 H AST 437 H ALT 462 H Alkaline Phosphatase 186 H Lactate Dehydrogenase C-Reactive Protein NT-Pro-B Natriuret Pep Total Protein 5.5 L Albumin 1.9 L Lipase Arterial Blood Glucose Arterial Blood Ionized Calcium Ur Specific [place] Vancomycin Trough Coronavirus (PCR) 05/22/21 05/22/21 05/22/21 04:30 04:30 04:30 WBC RBC Hgb Hct MCV MCH RDW Plt Count Lymph % (Auto) Eos % (Auto) Lymph # (Auto) Eos # (Auto) Seg Neutrophils % Seg Neuts % (Manual) Lymphocytes % (Manual) Seg Neutrophils # Man Lymphocytes # (Manual) PT 19.5 H INR 1.49 H APTT D-Dimer ABG pH POC ABG pCO2 POC ABG pO2 ABG pO2 ABG HCO3 ABG O2 Saturation ABG Base Excess ABG Hemoglobin ABG Oxyhemoglobin ABG Sodium ABG Potassium ABG Chloride ABG Glucose Oxyhemoglobin Carboxyhemoglobin Sodium 134 L Potassium Chloride Carbon Dioxide BUN 19 H Creatinine 0.2 L Glucose 208 H POC Glucose Lactic Acid Calcium 7.2 L Phosphorus 2.40 L D Magnesium Ferritin Total Bilirubin 2.20 H Direct Bilirubin AST 350 H ALT 496 H Alkaline Phosphatase 167 H Lactate Dehydrogenase C-Reactive Protein NT-Pro-B Natriuret Pep Total Protein 4.8 L Albumin 1.7 L Lipase Arterial Blood Glucose Arterial Blood Ionized Calcium Ur Specific [place] Vancomycin Trough Coronavirus (PCR) 05/22/21 05/22/21 05/22/21 11:59 17:16 23:07 WBC RBC Hgb Hct MCV MCH RDW Plt Count Lymph % (Auto) Eos % (Auto) Lymph # (Auto) Eos # (Auto) Seg Neutrophils % Seg Neuts % (Manual) Lymphocytes % (Manual) Seg Neutrophils # Man Lymphocytes # (Manual) PT INR APTT D-Dimer ABG pH POC ABG pCO2 POC ABG pO2 ABG pO2 ABG HCO3 ABG O2 Saturation ABG Base Excess ABG Hemoglobin ABG Oxyhemoglobin ABG Sodium ABG Potassium ABG Chloride ABG Glucose Oxyhemoglobin Carboxyhemoglobin Sodium Potassium Chloride Carbon Dioxide BUN Creatinine Glucose POC Glucose 204 H 244 H 226 H Lactic Acid Calcium Phosphorus Magnesium Ferritin Total Bilirubin Direct Bilirubin AST ALT Alkaline Phosphatase Lactate Dehydrogenase C-Reactive Protein NT-Pro-B Natriuret Pep Total Protein Albumin Lipase Arterial Blood Glucose Arterial Blood Ionized Calcium Ur Specific [place] Vancomycin Trough Coronavirus (PCR) 05/23/21 05/23/21 05/23/21 05:09 10:15 10:15 WBC RBC Hgb Hct MCV MCH RDW Plt Count Lymph % (Auto) Eos % (Auto) Lymph # (Auto) Eos # (Auto) Seg Neutrophils % Seg Neuts % (Manual) Lymphocytes % (Manual) Seg Neutrophils # Man Lymphocytes # (Manual) PT 16.9 H INR 1.24 H APTT D-Dimer ABG pH POC ABG pCO2 POC ABG pO2 ABG pO2 ABG HCO3 ABG O2 Saturation ABG Base Excess ABG Hemoglobin ABG Oxyhemoglobin ABG Sodium ABG Potassium ABG Chloride ABG Glucose Oxyhemoglobin Carboxyhemoglobin Sodium 131 L Potassium Chloride 97.5 L Carbon Dioxide BUN Creatinine < 0.2 L Glucose 248 H POC Glucose 175 H Lactic Acid Calcium 7.4 L Phosphorus Magnesium 1.60 L Ferritin Total Bilirubin Direct Bilirubin AST ALT Alkaline Phosphatase Lactate Dehydrogenase C-Reactive Protein NT-Pro-B Natriuret Pep Total Protein Albumin Lipase Arterial Blood Glucose Arterial Blood Ionized Calcium Ur Specific [place] Vancomycin Trough Coronavirus (PCR) 05/23/21 05/23/21 05/24/21 10:15 21:46 04:16 WBC RBC Hgb Hct MCV MCH RDW Plt Count Lymph % (Auto) Eos % (Auto) Lymph # (Auto) Eos # (Auto) Seg Neutrophils % Seg Neuts % (Manual) Lymphocytes % (Manual) Seg Neutrophils # Man Lymphocytes # (Manual) PT INR APTT D-Dimer ABG pH POC ABG pCO2 POC ABG pO2 ABG pO2 ABG HCO3 ABG O2 Saturation ABG Base Excess ABG Hemoglobin ABG Oxyhemoglobin ABG Sodium ABG Potassium ABG Chloride ABG Glucose Oxyhemoglobin Carboxyhemoglobin Sodium 130 L Potassium 3.5 L Chloride 97.1 L Carbon Dioxide BUN Creatinine 0.2 L Glucose 235 H POC Glucose 190 H Lactic Acid Calcium 6.8 L Phosphorus Magnesium Ferritin Total Bilirubin 2.30 H Direct Bilirubin 1.6 H AST 161 H ALT 396 H Alkaline Phosphatase 186 H Lactate Dehydrogenase C-Reactive Protein NT-Pro-B Natriuret Pep Total Protein 4.7 L Albumin 2.0 L Lipase Arterial Blood Glucose Arterial Blood Ionized Calcium Ur Specific [place] Vancomycin Trough Coronavirus (PCR) 05/24/21 05/25/21 05/25/21 05:32 04:25 04:25 WBC 11.7 H RBC 3.28 L Hgb Hct MCV MCH RDW 19.9 H Plt Count Lymph % (Auto) Eos % (Auto) Lymph # (Auto) Eos # (Auto) Seg Neutrophils % Seg Neuts % (Manual) Lymphocytes % (Manual) Seg Neutrophils # Man Lymphocytes # (Manual) PT INR APTT D-Dimer ABG pH POC ABG pCO2 POC ABG pO2 ABG pO2 ABG HCO3 ABG O2 Saturation ABG Base Excess ABG Hemoglobin ABG Oxyhemoglobin ABG Sodium ABG Potassium ABG Chloride ABG Glucose Oxyhemoglobin Carboxyhemoglobin Sodium 135 L Potassium 3.4 L Chloride Carbon Dioxide BUN Creatinine 0.2 L Glucose 105 H POC Glucose 208 H Lactic Acid Calcium 7.6 L Phosphorus Magnesium Ferritin Total Bilirubin Direct Bilirubin AST ALT Alkaline Phosphatase Lactate Dehydrogenase C-Reactive Protein NT-Pro-B Natriuret Pep Total Protein Albumin Lipase Arterial Blood Glucose Arterial Blood Ionized Calcium Ur Specific [place] Vancomycin Trough Coronavirus (PCR) 05/26/21 05/26/21 05/26/21 11:37 16:57 20:59 WBC RBC Hgb Hct MCV MCH RDW Plt Count Lymph % (Auto) Eos % (Auto) Lymph # (Auto) Eos # (Auto) Seg Neutrophils % Seg Neuts % (Manual) Lymphocytes % (Manual) Seg Neutrophils # Man Lymphocytes # (Manual) PT INR APTT D-Dimer ABG pH POC ABG pCO2 POC ABG pO2 ABG pO2 ABG HCO3 ABG O2 Saturation ABG Base Excess ABG Hemoglobin ABG Oxyhemoglobin ABG Sodium ABG Potassium ABG Chloride ABG Glucose Oxyhemoglobin Carboxyhemoglobin Sodium Potassium Chloride Carbon Dioxide BUN Creatinine Glucose POC Glucose 136 H 214 H 137 H Lactic Acid Calcium Phosphorus Magnesium Ferritin Total Bilirubin Direct Bilirubin AST ALT Alkaline Phosphatase Lactate Dehydrogenase C-Reactive Protein NT-Pro-B Natriuret Pep Total Protein Albumin Lipase Arterial Blood Glucose Arterial Blood Ionized Calcium Ur Specific [place] Vancomycin Trough Coronavirus (PCR) 05/26/21 05/27/21 05/27/21 23:52 05:40 16:49 WBC RBC Hgb Hct MCV MCH RDW Plt Count Lymph % (Auto) Eos % (Auto) Lymph # (Auto) Eos # (Auto) Seg Neutrophils % Seg Neuts % (Manual) Lymphocytes % (Manual) Seg Neutrophils # Man Lymphocytes # (Manual) PT INR APTT D-Dimer ABG pH POC ABG pCO2 POC ABG pO2 ABG pO2 ABG HCO3 ABG O2 Saturation ABG Base Excess ABG Hemoglobin ABG Oxyhemoglobin ABG Sodium ABG Potassium ABG Chloride ABG Glucose Oxyhemoglobin Carboxyhemoglobin Sodium Potassium Chloride Carbon Dioxide BUN Creatinine Glucose POC Glucose 111 H 144 H 213 H Lactic Acid Calcium Phosphorus Magnesium Ferritin Total Bilirubin Direct Bilirubin AST ALT Alkaline Phosphatase Lactate Dehydrogenase C-Reactive Protein NT-Pro-B Natriuret Pep Total Protein Albumin Lipase Arterial Blood Glucose Arterial Blood Ionized Calcium Ur Specific [place] Vancomycin Trough Coronavirus (PCR) 05/27/21 05/27/21 05/28/21 21:07 23:57 11:59 WBC RBC Hgb Hct MCV MCH RDW Plt Count Lymph % (Auto) Eos % (Auto) Lymph # (Auto) Eos # (Auto) Seg Neutrophils % Seg Neuts % (Manual) Lymphocytes % (Manual) Seg Neutrophils # Man Lymphocytes # (Manual) PT INR APTT D-Dimer ABG pH POC ABG pCO2 POC ABG pO2 ABG pO2 ABG HCO3 ABG O2 Saturation ABG Base Excess ABG Hemoglobin ABG Oxyhemoglobin ABG Sodium ABG Potassium ABG Chloride ABG Glucose Oxyhemoglobin Carboxyhemoglobin Sodium Potassium Chloride Carbon Dioxide BUN Creatinine Glucose POC Glucose 135 H 157 H 130 H Lactic Acid Calcium Phosphorus Magnesium Ferritin Total Bilirubin Direct Bilirubin AST ALT Alkaline Phosphatase Lactate Dehydrogenase C-Reactive Protein NT-Pro-B Natriuret Pep Total Protein Albumin Lipase Arterial Blood Glucose Arterial Blood Ionized Calcium Ur Specific [place] Vancomycin Trough Coronavirus (PCR) 05/28/21 05/29/21 05/29/21 17:05 01:03 05:07 WBC RBC Hgb Hct MCV MCH RDW Plt Count Lymph % (Auto) Eos % (Auto) Lymph # (Auto) Eos # (Auto) Seg Neutrophils % Seg Neuts % (Manual) Lymphocytes % (Manual) Seg Neutrophils # Man Lymphocytes # (Manual) PT INR APTT D-Dimer ABG pH POC ABG pCO2 POC ABG pO2 ABG pO2 ABG HCO3 ABG O2 Saturation ABG Base Excess ABG Hemoglobin ABG Oxyhemoglobin ABG Sodium ABG Potassium ABG Chloride ABG Glucose Oxyhemoglobin Carboxyhemoglobin Sodium 148 H D Potassium 3.0 L Chloride 108.0 H Carbon Dioxide BUN Creatinine 0.2 L Glucose 155 H POC Glucose 207 H 204 H Lactic Acid Calcium 7.7 L Phosphorus Magnesium Ferritin Total Bilirubin Direct Bilirubin AST ALT Alkaline Phosphatase Lactate Dehydrogenase C-Reactive Protein NT-Pro-B Natriuret Pep Total Protein Albumin Lipase Arterial Blood Glucose Arterial Blood Ionized Calcium Ur Specific [place] Vancomycin Trough Coronavirus (PCR) 05/29/21 05/29/21 05/29/21 08:20 11:30 17:53 WBC RBC Hgb Hct MCV MCH RDW Plt Count Lymph % (Auto) Eos % (Auto) Lymph # (Auto) Eos # (Auto) Seg Neutrophils % Seg Neuts % (Manual) Lymphocytes % (Manual) Seg Neutrophils # Man Lymphocytes # (Manual) PT INR APTT D-Dimer ABG pH POC ABG pCO2 POC ABG pO2 ABG pO2 ABG HCO3 ABG O2 Saturation ABG Base Excess ABG Hemoglobin ABG Oxyhemoglobin ABG Sodium ABG Potassium ABG Chloride ABG Glucose Oxyhemoglobin Carboxyhemoglobin Sodium Potassium Chloride Carbon Dioxide BUN Creatinine Glucose POC Glucose 119 H 199 H Lactic Acid Calcium Phosphorus Magnesium Ferritin Total Bilirubin Direct Bilirubin AST ALT Alkaline Phosphatase Lactate Dehydrogenase C-Reactive Protein NT-Pro-B Natriuret Pep Total Protein Albumin Lipase Arterial Blood Glucose Arterial Blood Ionized Calcium Ur Specific [place] Vancomycin Trough Coronavirus (PCR) Positive A 05/30/21 05/30/21 05/30/21 00:37 05:54 06:50 WBC RBC Hgb Hct MCV MCH RDW Plt Count Lymph % (Auto) Eos % (Auto) Lymph # (Auto) Eos # (Auto) Seg Neutrophils % Seg Neuts % (Manual) Lymphocytes % (Manual) Seg Neutrophils # Man Lymphocytes # (Manual) PT INR APTT D-Dimer ABG pH POC ABG pCO2 POC ABG pO2 ABG pO2 ABG HCO3 ABG O2 Saturation ABG Base Excess ABG Hemoglobin ABG Oxyhemoglobin ABG Sodium ABG Potassium ABG Chloride ABG Glucose Oxyhemoglobin Carboxyhemoglobin Sodium Potassium Chloride Carbon Dioxide BUN Creatinine Glucose POC Glucose 117 H 56 L 157 H Lactic Acid Calcium Phosphorus Magnesium Ferritin Total Bilirubin Direct Bilirubin AST ALT Alkaline Phosphatase Lactate Dehydrogenase C-Reactive Protein NT-Pro-B Natriuret Pep Total Protein Albumin Lipase Arterial Blood Glucose Arterial Blood Ionized Calcium Ur Specific [place] Vancomycin Trough Coronavirus (PCR) 05/30/21 05/30/21 05/31/21 17:18 23:54 05:27 WBC RBC Hgb Hct MCV MCH RDW Plt Count Lymph % (Auto) Eos % (Auto) Lymph # (Auto) Eos # (Auto) Seg Neutrophils % Seg Neuts % (Manual) Lymphocytes % (Manual) Seg Neutrophils # Man Lymphocytes # (Manual) PT INR APTT D-Dimer ABG pH POC ABG pCO2 POC ABG pO2 ABG pO2 ABG HCO3 ABG O2 Saturation ABG Base Excess ABG Hemoglobin ABG Oxyhemoglobin ABG Sodium ABG Potassium ABG Chloride ABG Glucose Oxyhemoglobin Carboxyhemoglobin Sodium Potassium Chloride Carbon Dioxide BUN Creatinine Glucose POC Glucose 181 H 130 H 112 H Lactic Acid Calcium Phosphorus Magnesium Ferritin Total Bilirubin Direct Bilirubin AST ALT Alkaline Phosphatase Lactate Dehydrogenase C-Reactive Protein NT-Pro-B Natriuret Pep Total Protein Albumin Lipase Arterial Blood Glucose Arterial Blood Ionized Calcium Ur Specific [place] Vancomycin Trough Coronavirus (PCR) 05/31/21 05/31/21 05/31/21 12:06 17:35 23:56 WBC RBC Hgb Hct MCV MCH RDW Plt Count Lymph % (Auto) Eos % (Auto) Lymph # (Auto) Eos # (Auto) Seg Neutrophils % Seg Neuts % (Manual) Lymphocytes % (Manual) Seg Neutrophils # Man Lymphocytes # (Manual) PT INR APTT D-Dimer ABG pH POC ABG pCO2 POC ABG pO2 ABG pO2 ABG HCO3 ABG O2 Saturation ABG Base Excess ABG Hemoglobin ABG Oxyhemoglobin ABG Sodium ABG Potassium ABG Chloride ABG Glucose Oxyhemoglobin Carboxyhemoglobin Sodium Potassium Chloride Carbon Dioxide BUN Creatinine Glucose POC Glucose 170 H 109 H 136 H Lactic Acid Calcium Phosphorus Magnesium Ferritin Total Bilirubin Direct Bilirubin AST ALT Alkaline Phosphatase Lactate Dehydrogenase C-Reactive Protein NT-Pro-B Natriuret Pep Total Protein Albumin Lipase Arterial Blood Glucose Arterial Blood Ionized Calcium Ur Specific [place] Vancomycin Trough Coronavirus (PCR) 06/02/21 06/02/21 06/02/21 04:28 05:36 08:59 WBC RBC 3.31 L Hgb Hct MCV 100 H MCH RDW 24.7 H Plt Count Lymph % (Auto) 12.8 L Eos % (Auto) 10.2 H Lymph # (Auto) 0.6 L Eos # (Auto) 0.5 H Seg Neutrophils % 75.5 H Seg Neuts % (Manual) Lymphocytes % (Manual) Seg Neutrophils # Man Lymphocytes # (Manual) PT INR APTT D-Dimer ABG pH 7.258 L 7.251 L POC ABG pCO2 73.4 H 67.7 H POC ABG pO2 33.0 L 189.6 H ABG pO2 ABG HCO3 ABG O2 Saturation ABG Base Excess ABG Hemoglobin 11.8 L 11.8 L ABG Oxyhemoglobin 48.8 L ABG Sodium 146.7 H 146.3 H ABG Potassium 3.1 L ABG Chloride 109.0 H ABG Glucose 64 L Oxyhemoglobin Carboxyhemoglobin 1.6 H Sodium Potassium Chloride Carbon Dioxide BUN Creatinine Glucose POC Glucose Lactic Acid Calcium Phosphorus Magnesium Ferritin Total Bilirubin Direct Bilirubin AST ALT Alkaline Phosphatase Lactate Dehydrogenase C-Reactive Protein NT-Pro-B Natriuret Pep Total Protein Albumin Lipase Arterial Blood Glucose 64 L Arterial Blood Ionized Calcium Ur Specific [place] Vancomycin Trough Coronavirus (PCR) 06/02/21 06/02/21 06/02/21 08:59 11:39 14:50 WBC RBC Hgb Hct MCV MCH RDW Plt Count Lymph % (Auto) Eos % (Auto) Lymph # (Auto) Eos # (Auto) Seg Neutrophils % Seg Neuts % (Manual) Lymphocytes % (Manual) Seg Neutrophils # Man Lymphocytes # (Manual) PT INR APTT D-Dimer ABG pH 7.339 L POC ABG pCO2 POC ABG pO2 ABG pO2 91.4 H ABG HCO3 26.2 H ABG O2 Saturation ABG Base Excess ABG Hemoglobin 11.3 L ABG Oxyhemoglobin ABG Sodium ABG Potassium ABG Chloride ABG Glucose Oxyhemoglobin 93.7 L Carboxyhemoglobin Sodium 148 H Potassium 2.9 L* Chloride 111.1 H Carbon Dioxide BUN Creatinine 0.3 L Glucose 29 L* POC Glucose 140 H Lactic Acid Calcium 7.7 L Phosphorus Magnesium 1.50 L Ferritin Total Bilirubin Direct Bilirubin AST ALT Alkaline Phosphatase Lactate Dehydrogenase C-Reactive Protein NT-Pro-B Natriuret Pep Total Protein Albumin Lipase Arterial Blood Glucose Arterial Blood Ionized Calcium Ur Specific [place] Vancomycin Trough Coronavirus (PCR) 06/02/21 06/02/21 06/02/21 17:49 19:47 21:30 WBC RBC Hgb Hct MCV MCH RDW Plt Count Lymph % (Auto) Eos % (Auto) Lymph # (Auto) Eos # (Auto) Seg Neutrophils % Seg Neuts % (Manual) Lymphocytes % (Manual) Seg Neutrophils # Man Lymphocytes # (Manual) PT INR APTT D-Dimer ABG pH POC ABG pCO2 POC ABG pO2 ABG pO2 ABG HCO3 ABG O2 Saturation ABG Base Excess ABG Hemoglobin ABG Oxyhemoglobin ABG Sodium ABG Potassium ABG Chloride ABG Glucose Oxyhemoglobin Carboxyhemoglobin Sodium Potassium Chloride 109.6 H Carbon Dioxide 21 L D BUN Creatinine Glucose 123 H POC Glucose 67 L 117 H Lactic Acid Calcium 7.5 L Phosphorus 5.20 H D Magnesium 2.90 H Ferritin Total Bilirubin Direct Bilirubin AST ALT Alkaline Phosphatase Lactate Dehydrogenase C-Reactive Protein NT-Pro-B Natriuret Pep Total Protein Albumin Lipase Arterial Blood Glucose Arterial Blood Ionized Calcium Ur Specific [place] Vancomycin Trough Coronavirus (PCR) 06/02/21 06/02/21 06/02/21 21:30 22:00 23:10 WBC RBC Hgb Hct MCV MCH RDW Plt Count Lymph % (Auto) Eos % (Auto) Lymph # (Auto) Eos # (Auto) Seg Neutrophils % Seg Neuts % (Manual) Lymphocytes % (Manual) Seg Neutrophils # Man Lymphocytes # (Manual) PT INR APTT D-Dimer ABG pH POC ABG pCO2 POC ABG pO2 ABG pO2 ABG HCO3 ABG O2 Saturation ABG Base Excess ABG Hemoglobin ABG Oxyhemoglobin ABG Sodium ABG Potassium ABG Chloride ABG Glucose Oxyhemoglobin Carboxyhemoglobin Sodium 147 H Potassium Chloride 111.7 H Carbon Dioxide BUN Creatinine Glucose 105 H POC Glucose 122 H Lactic Acid Calcium 7.5 L Phosphorus Magnesium Ferritin Total Bilirubin Direct Bilirubin AST 74 H ALT 96 H Alkaline Phosphatase 207 H Lactate Dehydrogenase C-Reactive Protein NT-Pro-B Natriuret Pep 2326 H Total Protein 5.0 L Albumin 2.0 L Lipase Arterial Blood Glucose Arterial Blood Ionized Calcium Ur Specific [place] Vancomycin Trough Coronavirus (PCR) 06/03/21 06/03/21 06/03/21 04:45 04:45 04:45 WBC 13.6 H RBC 3.44 L Hgb Hct MCV 102 H MCH RDW 25.4 H Plt Count Lymph % (Auto) Eos % (Auto) Lymph # (Auto) Eos # (Auto) Seg Neutrophils % Seg Neuts % (Manual) Lymphocytes % (Manual) Seg Neutrophils # Man Lymphocytes # (Manual) PT INR APTT D-Dimer ABG pH POC ABG pCO2 POC ABG pO2 ABG pO2 ABG HCO3 ABG O2 Saturation ABG Base Excess ABG Hemoglobin ABG Oxyhemoglobin ABG Sodium ABG Potassium ABG Chloride ABG Glucose Oxyhemoglobin Carboxyhemoglobin Sodium Potassium Chloride Carbon Dioxide BUN Creatinine Glucose 151 H POC Glucose Lactic Acid Calcium 7.6 L Phosphorus 6.70 H D Magnesium Ferritin Total Bilirubin Direct Bilirubin AST 68 H ALT 103 H Alkaline Phosphatase 226 H Lactate Dehydrogenase C-Reactive Protein NT-Pro-B Natriuret Pep Total Protein 6.0 L Albumin 2.0 L Lipase Arterial Blood Glucose Arterial Blood Ionized Calcium Ur Specific [place] Vancomycin Trough Coronavirus (PCR) 06/03/21 06/03/21 06/03/21 05:02 10:00 11:46 WBC RBC Hgb Hct MCV MCH RDW Plt Count Lymph % (Auto) Eos % (Auto) Lymph # (Auto) Eos # (Auto) Seg Neutrophils % Seg Neuts % (Manual) Lymphocytes % (Manual) Seg Neutrophils # Man Lymphocytes # (Manual) PT INR APTT D-Dimer ABG pH 7.312 L POC ABG pCO2 POC ABG pO2 ABG pO2 68.5 L ABG HCO3 ABG O2 Saturation 93.0 L ABG Base Excess ABG Hemoglobin 11.5 L ABG Oxyhemoglobin ABG Sodium ABG Potassium ABG Chloride ABG Glucose Oxyhemoglobin 90.1 L Carboxyhemoglobin Sodium Potassium Chloride Carbon Dioxide BUN Creatinine Glucose POC Glucose 139 H 150 H Lactic Acid Calcium Phosphorus Magnesium Ferritin Total Bilirubin Direct Bilirubin AST ALT Alkaline Phosphatase Lactate Dehydrogenase C-Reactive Protein NT-Pro-B Natriuret Pep Total Protein Albumin Lipase Arterial Blood Glucose Arterial Blood Ionized Calcium Ur Specific [place] Vancomycin Trough Coronavirus (PCR) 06/03/21 06/03/21 06/04/21 17:19 23:01 04:00 WBC RBC 2.99 L Hgb 9.7 L Hct 30.0 L MCV 101 H MCH 33 H RDW 25.3 H Plt Count Lymph % (Auto) Eos % (Auto) Lymph # (Auto) Eos # (Auto) Seg Neutrophils % Seg Neuts % (Manual) Lymphocytes % (Manual) Seg Neutrophils # Man Lymphocytes # (Manual) PT INR APTT D-Dimer ABG pH POC ABG pCO2 POC ABG pO2 ABG pO2 ABG HCO3 ABG O2 Saturation ABG Base Excess ABG Hemoglobin ABG Oxyhemoglobin ABG Sodium ABG Potassium ABG Chloride ABG Glucose Oxyhemoglobin Carboxyhemoglobin Sodium Potassium Chloride Carbon Dioxide BUN Creatinine Glucose POC Glucose 135 H 164 H Lactic Acid Calcium Phosphorus Magnesium Ferritin Total Bilirubin Direct Bilirubin AST ALT Alkaline Phosphatase Lactate Dehydrogenase C-Reactive Protein NT-Pro-B Natriuret Pep Total Protein Albumin Lipase Arterial Blood Glucose Arterial Blood Ionized Calcium Ur Specific [place] Vancomycin Trough Coronavirus (PCR) 06/04/21 06/04/21 06/04/21 04:40 05:02 10:00 WBC RBC Hgb Hct MCV MCH RDW Plt Count Lymph % (Auto) Eos % (Auto) Lymph # (Auto) Eos # (Auto) Seg Neutrophils % Seg Neuts % (Manual) Lymphocytes % (Manual) Seg Neutrophils # Man Lymphocytes # (Manual) PT INR APTT D-Dimer ABG pH POC ABG pCO2 52.2 H POC ABG pO2 82.9 L ABG pO2 ABG HCO3 ABG O2 Saturation ABG Base Excess ABG Hemoglobin ABG Oxyhemoglobin ABG Sodium 135.4 L ABG Potassium ABG Chloride ABG Glucose 163 H Oxyhemoglobin Carboxyhemoglobin 1.7 H Sodium Potassium Chloride Carbon Dioxide BUN 19 H Creatinine 0.5 L Glucose 150 H POC Glucose 137 H Lactic Acid Calcium 8.0 L Phosphorus Magnesium Ferritin Total Bilirubin Direct Bilirubin AST ALT 70 H Alkaline Phosphatase 204 H Lactate Dehydrogenase C-Reactive Protein NT-Pro-B Natriuret Pep Total Protein 5.7 L Albumin 1.8 L Lipase Arterial Blood Glucose 163 H Arterial Blood Ionized Calcium Ur Specific [place] Vancomycin Trough Coronavirus (PCR) 06/04/21 06/04/21 06/04/21 12:09 17:43 17:49 WBC RBC Hgb Hct MCV MCH RDW Plt Count Lymph % (Auto) Eos % (Auto) Lymph # (Auto) Eos # (Auto) Seg Neutrophils % Seg Neuts % (Manual) Lymphocytes % (Manual) Seg Neutrophils # Man Lymphocytes # (Manual) PT INR APTT D-Dimer ABG pH POC ABG pCO2 POC ABG pO2 66.6 L ABG pO2 ABG HCO3 ABG O2 Saturation ABG Base Excess ABG Hemoglobin 11.2 L ABG Oxyhemoglobin 91.9 L ABG Sodium 134.9 L ABG Potassium ABG Chloride 97.0 L ABG Glucose 181 H Oxyhemoglobin Carboxyhemoglobin Sodium Potassium Chloride Carbon Dioxide BUN Creatinine Glucose POC Glucose 160 H 170 H Lactic Acid Calcium Phosphorus Magnesium Ferritin Total Bilirubin Direct Bilirubin AST ALT Alkaline Phosphatase Lactate Dehydrogenase C-Reactive Protein NT-Pro-B Natriuret Pep Total Protein Albumin Lipase Arterial Blood Glucose 181 H Arterial Blood Ionized Calcium Ur Specific [place] Vancomycin Trough Coronavirus (PCR) 06/04/21 06/05/21 06/05/21 23:31 06:00 06:00 WBC RBC 3.13 L Hgb 10.0 L Hct MCV 100 H MCH RDW 24.6 H Plt Count 127 L Lymph % (Auto) Eos % (Auto) Lymph # (Auto) Eos # (Auto) Seg Neutrophils % Seg Neuts % (Manual) Lymphocytes % (Manual) Seg Neutrophils # Man Lymphocytes # (Manual) PT INR APTT D-Dimer ABG pH POC ABG pCO2 POC ABG pO2 ABG pO2 ABG HCO3 ABG O2 Saturation ABG Base Excess ABG Hemoglobin ABG Oxyhemoglobin ABG Sodium ABG Potassium ABG Chloride ABG Glucose Oxyhemoglobin Carboxyhemoglobin Sodium 136 L Potassium Chloride 94.2 L Carbon Dioxide 32 H BUN Creatinine 0.3 L Glucose 241 H POC Glucose 149 H Lactic Acid Calcium 8.3 L Phosphorus Magnesium Ferritin Total Bilirubin Direct Bilirubin AST ALT Alkaline Phosphatase 219 H Lactate Dehydrogenase 301 H C-Reactive Protein 22.40 H NT-Pro-B Natriuret Pep Total Protein 6.2 L Albumin 1.8 L Lipase Arterial Blood Glucose Arterial Blood Ionized Calcium Ur Specific [place] Vancomycin Trough Coronavirus (PCR) 06/05/21 06/05/21 06/05/21 06:00 06:00 06:12 WBC RBC Hgb Hct MCV MCH RDW Plt Count Lymph % (Auto) Eos % (Auto) Lymph # (Auto) Eos # (Auto) Seg Neutrophils % Seg Neuts % (Manual) Lymphocytes % (Manual) Seg Neutrophils # Man Lymphocytes # (Manual) PT 15.9 H INR 1.15 H APTT 37.1 H D-Dimer 1282.85 H ABG pH POC ABG pCO2 POC ABG pO2 ABG pO2 ABG HCO3 ABG O2 Saturation ABG Base Excess ABG Hemoglobin ABG Oxyhemoglobin ABG Sodium ABG Potassium ABG Chloride ABG Glucose Oxyhemoglobin Carboxyhemoglobin Sodium Potassium Chloride Carbon Dioxide BUN Creatinine Glucose POC Glucose 228 H Lactic Acid Calcium Phosphorus Magnesium Ferritin 717.1 H Total Bilirubin Direct Bilirubin AST ALT Alkaline Phosphatase Lactate Dehydrogenase C-Reactive Protein NT-Pro-B Natriuret Pep Total Protein Albumin Lipase Arterial Blood Glucose Arterial Blood Ionized Calcium Ur Specific [place] Vancomycin Trough Coronavirus (PCR) 06/05/21 06/05/21 06/05/21 09:17 12:20 17:07 WBC RBC Hgb Hct MCV MCH RDW Plt Count Lymph % (Auto) Eos % (Auto) Lymph # (Auto) Eos # (Auto) Seg Neutrophils % Seg Neuts % (Manual) Lymphocytes % (Manual) Seg Neutrophils # Man Lymphocytes # (Manual) PT INR APTT D-Dimer ABG pH POC ABG pCO2 54.0 H POC ABG pO2 140.6 H ABG pO2 ABG HCO3 ABG O2 Saturation ABG Base Excess ABG Hemoglobin 10.3 L ABG Oxyhemoglobin ABG Sodium 133.6 L ABG Potassium 3.3 L ABG Chloride 97.0 L ABG Glucose 179 H Oxyhemoglobin Carboxyhemoglobin Sodium Potassium Chloride Carbon Dioxide BUN Creatinine Glucose POC Glucose 220 H 197 H Lactic Acid Calcium Phosphorus Magnesium Ferritin Total Bilirubin Direct Bilirubin AST ALT Alkaline Phosphatase Lactate Dehydrogenase C-Reactive Protein NT-Pro-B Natriuret Pep Total Protein Albumin Lipase Arterial Blood Glucose 179 H Arterial Blood Ionized Calcium Ur Specific [place] Vancomycin Trough Coronavirus (PCR) 06/05/21 06/06/21 06/06/21 23:29 05:26 05:26 WBC 3.5 L RBC 3.21 L Hgb Hct MCV 98 H MCH RDW 23.9 H Plt Count 110 L Lymph % (Auto) Eos % (Auto) Lymph # (Auto) Eos # (Auto) Seg Neutrophils % Seg Neuts % (Manual) Lymphocytes % (Manual) Seg Neutrophils # Man Lymphocytes # (Manual) PT INR APTT D-Dimer ABG pH POC ABG pCO2 POC ABG pO2 ABG pO2 ABG HCO3 ABG O2 Saturation ABG Base Excess ABG Hemoglobin ABG Oxyhemoglobin ABG Sodium ABG Potassium ABG Chloride ABG Glucose Oxyhemoglobin Carboxyhemoglobin Sodium Potassium 3.2 L Chloride Carbon Dioxide 34 H BUN Creatinine 0.3 L Glucose 172 H POC Glucose 180 H Lactic Acid Calcium 8.0 L Phosphorus Magnesium Ferritin Total Bilirubin Direct Bilirubin AST ALT Alkaline Phosphatase 207 H Lactate Dehydrogenase C-Reactive Protein NT-Pro-B Natriuret Pep Total Protein 5.5 L Albumin 2.0 L Lipase Arterial Blood Glucose Arterial Blood Ionized Calcium Ur Specific [place] Vancomycin Trough Coronavirus (PCR) 06/06/21 06/06/21 06/06/21 05:30 09:00 11:15 WBC RBC Hgb Hct MCV MCH RDW Plt Count Lymph % (Auto) Eos % (Auto) Lymph # (Auto) Eos # (Auto) Seg Neutrophils % Seg Neuts % (Manual) Lymphocytes % (Manual) Seg Neutrophils # Man Lymphocytes # (Manual) PT INR APTT D-Dimer ABG pH POC ABG pCO2 59.5 H POC ABG pO2 72.0 L ABG pO2 ABG HCO3 ABG O2 Saturation ABG Base Excess ABG Hemoglobin 10.9 L ABG Oxyhemoglobin 91.7 L ABG Sodium 135.8 L ABG Potassium 2.8 L ABG Chloride 96.0 L ABG Glucose 172 H Oxyhemoglobin Carboxyhemoglobin Sodium Potassium Chloride Carbon Dioxide BUN Creatinine Glucose POC Glucose 159 H 172 H Lactic Acid Calcium Phosphorus Magnesium Ferritin Total Bilirubin Direct Bilirubin AST ALT Alkaline Phosphatase Lactate Dehydrogenase C-Reactive Protein NT-Pro-B Natriuret Pep Total Protein Albumin Lipase Arterial Blood Glucose 172 H Arterial Blood Ionized Calcium 4.5 L Ur Specific [place] Vancomycin Trough Coronavirus (PCR) 06/06/21 06/06/21 06/06/21 16:07 21:00 23:46 WBC RBC Hgb Hct MCV MCH RDW Plt Count Lymph % (Auto) Eos % (Auto) Lymph # (Auto) Eos # (Auto) Seg Neutrophils % Seg Neuts % (Manual) Lymphocytes % (Manual) Seg Neutrophils # Man Lymphocytes # (Manual) PT INR APTT D-Dimer ABG pH POC ABG pCO2 59.5 H POC ABG pO2 52.1 L ABG pO2 ABG HCO3 ABG O2 Saturation ABG Base Excess ABG Hemoglobin 11.9 L ABG Oxyhemoglobin 84.0 L ABG Sodium 134.6 L ABG Potassium ABG Chloride ABG Glucose 206 H Oxyhemoglobin Carboxyhemoglobin Sodium Potassium Chloride Carbon Dioxide BUN Creatinine Glucose POC Glucose 122 H 203 H Lactic Acid Calcium Phosphorus Magnesium Ferritin Total Bilirubin Direct Bilirubin AST ALT Alkaline Phosphatase Lactate Dehydrogenase C-Reactive Protein NT-Pro-B Natriuret Pep Total Protein Albumin Lipase Arterial Blood Glucose 206 H Arterial Blood Ionized Calcium Ur Specific [place] Vancomycin Trough Coronavirus (PCR) 06/07/21 06/07/21 06/07/21 04:36 04:36 04:36 WBC RBC Hgb Hct MCV MCH RDW Plt Count Lymph % (Auto) Eos % (Auto) Lymph # (Auto) Eos # (Auto) Seg Neutrophils % Seg Neuts % (Manual) Lymphocytes % (Manual) Seg Neutrophils # Man Lymphocytes # (Manual) PT INR APTT D-Dimer 1938.43 H ABG pH POC ABG pCO2 POC ABG pO2 ABG pO2 ABG HCO3 ABG O2 Saturation ABG Base Excess ABG Hemoglobin ABG Oxyhemoglobin ABG Sodium ABG Potassium ABG Chloride ABG Glucose Oxyhemoglobin Carboxyhemoglobin Sodium Potassium Chloride Carbon Dioxide 31 H BUN Creatinine 0.3 L Glucose 234 H POC Glucose Lactic Acid Calcium Phosphorus 2.40 L Magnesium Ferritin 1287.0 H Total Bilirubin Direct Bilirubin AST ALT Alkaline Phosphatase Lactate Dehydrogenase 270 H C-Reactive Protein 26.70 H NT-Pro-B Natriuret Pep Total Protein Albumin Lipase Arterial Blood Glucose Arterial Blood Ionized Calcium Ur Specific [place] Vancomycin Trough Coronavirus (PCR) 06/07/21 06/07/21 06/07/21 04:36 05:31 10:50 WBC RBC 3.31 L Hgb Hct MCV 99 H MCH RDW 23.9 H Plt Count 133 L Lymph % (Auto) Eos % (Auto) Lymph # (Auto) Eos # (Auto) Seg Neutrophils % Seg Neuts % (Manual) Lymphocytes % (Manual) Seg Neutrophils # Man Lymphocytes # (Manual) PT INR APTT D-Dimer ABG pH POC ABG pCO2 POC ABG pO2 ABG pO2 66.6 L ABG HCO3 35.7 H ABG O2 Saturation ABG Base Excess 10.3 H ABG Hemoglobin 6.2 L ABG Oxyhemoglobin ABG Sodium ABG Potassium ABG Chloride ABG Glucose Oxyhemoglobin 94.7 L Carboxyhemoglobin Sodium Potassium Chloride Carbon Dioxide BUN Creatinine Glucose POC Glucose 252 H Lactic Acid Calcium Phosphorus Magnesium Ferritin Total Bilirubin Direct Bilirubin AST ALT Alkaline Phosphatase Lactate Dehydrogenase C-Reactive Protein NT-Pro-B Natriuret Pep Total Protein Albumin Lipase Arterial Blood Glucose Arterial Blood Ionized Calcium Ur Specific [place] Vancomycin Trough Coronavirus (PCR) 06/07/21 06/07/21 06/07/21 11:56 16:21 23:46 WBC RBC Hgb Hct MCV MCH RDW Plt Count Lymph % (Auto) Eos % (Auto) Lymph # (Auto) Eos # (Auto) Seg Neutrophils % Seg Neuts % (Manual) Lymphocytes % (Manual) Seg Neutrophils # Man Lymphocytes # (Manual) PT INR APTT D-Dimer ABG pH POC ABG pCO2 POC ABG pO2 ABG pO2 ABG HCO3 ABG O2 Saturation ABG Base Excess ABG Hemoglobin ABG Oxyhemoglobin ABG Sodium ABG Potassium ABG Chloride ABG Glucose Oxyhemoglobin Carboxyhemoglobin Sodium Potassium Chloride Carbon Dioxide BUN Creatinine Glucose POC Glucose 178 H 190 H 179 H Lactic Acid Calcium Phosphorus Magnesium Ferritin Total Bilirubin Direct Bilirubin AST ALT Alkaline Phosphatase Lactate Dehydrogenase C-Reactive Protein NT-Pro-B Natriuret Pep Total Protein Albumin Lipase Arterial Blood Glucose Arterial Blood Ionized Calcium Ur Specific [place] Vancomycin Trough Coronavirus (PCR) 06/08/21 06/08/21 06/08/21 04:47 04:47 06:21 WBC 11.1 H RBC 3.02 L Hgb 9.4 L Hct 29.9 L MCV 99 H MCH RDW 24.5 H Plt Count Lymph % (Auto) Eos % (Auto) Lymph # (Auto) Eos # (Auto) Seg Neutrophils % Seg Neuts % (Manual) Lymphocytes % (Manual) Seg Neutrophils # Man Lymphocytes # (Manual) PT INR APTT D-Dimer ABG pH POC ABG pCO2 POC ABG pO2 ABG pO2 ABG HCO3 ABG O2 Saturation ABG Base Excess ABG Hemoglobin ABG Oxyhemoglobin ABG Sodium ABG Potassium ABG Chloride ABG Glucose Oxyhemoglobin Carboxyhemoglobin Sodium Potassium Chloride Carbon Dioxide BUN 28 H Creatinine 0.4 L Glucose 230 H POC Glucose 210 H Lactic Acid Calcium 8.2 L Phosphorus Magnesium Ferritin Total Bilirubin Direct Bilirubin AST ALT Alkaline Phosphatase Lactate Dehydrogenase C-Reactive Protein NT-Pro-B Natriuret Pep Total Protein Albumin Lipase Arterial Blood Glucose Arterial Blood Ionized Calcium Ur Specific [place] Vancomycin Trough Coronavirus (PCR) 06/08/21 06/08/21 06/09/21 11:56 18:06 00:16 WBC RBC Hgb Hct MCV MCH RDW Plt Count Lymph % (Auto) Eos % (Auto) Lymph # (Auto) Eos # (Auto) Seg Neutrophils % Seg Neuts % (Manual) Lymphocytes % (Manual) Seg Neutrophils # Man Lymphocytes # (Manual) PT INR APTT D-Dimer ABG pH POC ABG pCO2 POC ABG pO2 ABG pO2 ABG HCO3 ABG O2 Saturation ABG Base Excess ABG Hemoglobin ABG Oxyhemoglobin ABG Sodium ABG Potassium ABG Chloride ABG Glucose Oxyhemoglobin Carboxyhemoglobin Sodium Potassium Chloride Carbon Dioxide BUN Creatinine Glucose POC Glucose 157 H 136 H 147 H Lactic Acid Calcium Phosphorus Magnesium Ferritin Total Bilirubin Direct Bilirubin AST ALT Alkaline Phosphatase Lactate Dehydrogenase C-Reactive Protein NT-Pro-B Natriuret Pep Total Protein Albumin Lipase Arterial Blood Glucose Arterial Blood Ionized Calcium Ur Specific [place] Vancomycin Trough Coronavirus (PCR) 06/09/21 06/09/21 06/09/21 02:45 04:48 04:48 WBC RBC 3.14 L Hgb 9.8 L Hct MCV 99 H MCH RDW 24.3 H Plt Count 124 L Lymph % (Auto) Eos % (Auto) Lymph # (Auto) Eos # (Auto) Seg Neutrophils % Seg Neuts % (Manual) Lymphocytes % (Manual) Seg Neutrophils # Man Lymphocytes # (Manual) PT INR APTT D-Dimer ABG pH POC ABG pCO2 56.0 H POC ABG pO2 54.3 L ABG pO2 ABG HCO3 ABG O2 Saturation ABG Base Excess ABG Hemoglobin 11.1 L ABG Oxyhemoglobin 85.6 L ABG Sodium ABG Potassium ABG Chloride ABG Glucose 191 H Oxyhemoglobin Carboxyhemoglobin 1.6 H Sodium Potassium Chloride Carbon Dioxide BUN 29 H Creatinine 0.5 L Glucose 225 H POC Glucose Lactic Acid Calcium 7.7 L Phosphorus 5.10 H Magnesium Ferritin Total Bilirubin Direct Bilirubin AST ALT Alkaline Phosphatase Lactate Dehydrogenase C-Reactive Protein NT-Pro-B Natriuret Pep Total Protein Albumin Lipase Arterial Blood Glucose 191 H Arterial Blood Ionized Calcium 4.4 L Ur Specific [place] Vancomycin Trough Coronavirus (PCR) 06/09/21 06/09/21 06:14 11:54 WBC RBC Hgb Hct MCV MCH RDW Plt Count Lymph % (Auto) Eos % (Auto) Lymph # (Auto) Eos # (Auto) Seg Neutrophils % Seg Neuts % (Manual) Lymphocytes % (Manual) Seg Neutrophils # Man Lymphocytes # (Manual) PT INR APTT D-Dimer ABG pH POC ABG pCO2 POC ABG pO2 ABG pO2 ABG HCO3 ABG O2 Saturation ABG Base Excess ABG Hemoglobin ABG Oxyhemoglobin ABG Sodium ABG Potassium ABG Chloride ABG Glucose Oxyhemoglobin Carboxyhemoglobin Sodium Potassium Chloride Carbon Dioxide BUN Creatinine Glucose POC Glucose 215 H 167 H Lactic Acid Calcium Phosphorus Magnesium Ferritin Total Bilirubin Direct Bilirubin AST ALT Alkaline Phosphatase Lactate Dehydrogenase C-Reactive Protein NT-Pro-B Natriuret Pep Total Protein Albumin Lipase Arterial Blood Glucose Arterial Blood Ionized Calcium Ur Specific [place] Vancomycin Trough Coronavirus (PCR) Chest x-ray: pending Allied health notes reviewed: nursing
--- NOTE | 2021-06-09 16:17 | XRay Report ---
XR chest 1V ap INDICATION / CLINICAL INFORMATION: Pneumothorax. COMPARISON: 06/07/2021 FINDINGS: SUPPORT DEVICES: Unchanged. HEART /PULMONARY VASCULATURE: Unchanged. LUNGS / PLEURA: Diffuse pulmonary airspace opacities appear unchanged. No sizable pleural effusion. N o discrete pneumothorax. IMPRESSION: No significant interval change. No discrete pneumothorax. Signer Name: Bubba Moran MD Signed: 06/09/2021 4:13 PM Workstation Name: [id number]
--- NOTE | 2021-06-09 18:23 | Progress Note ---
Assessment and Plan Assessment and plan: This is a 48-year-old female with COPD, pancreatic cancer with radiation s/p pancreatic stent placement, pulmonary fibrosis, chronic respiratory failure on 2 L nasal cannula admitted with sepsis, transaminitis and lactic acidosis now with COVID 19 PNA and acute hypoxic respiratory failure. Neuro: Sedated -Sedated with propofol and fentanyl -RASS goal 0 to -1 -Avoid delirium -Reorientation as needed -Maintain sleep-wake cycle -Daily SAT and SBT when appropriate CV: Hypotension, h/o HTN -Hold home htn medications -vasopressor support with levo -map goal > 65 -BP monitoring per protocol -Hold home htn medications -s/p IV Lasix X 3 days Respiratory: Acute on chronic respiratory failure, h/o pulmonary fibrosis, acute on chronic respiratory failure on home O2 of 2 L nasal cannula -Intubated on 06/02 with 7.5 oett with 22 @ lips -AM vent settings: AC Rate 25, PEEP 8, tidal volume 350, FiO2 80% -See RT note for titration -ABG and CXR per CCM -VAP bundle -s/p Bipap and Optiflow -Pulmicort, brovana -Daily SBT and SAT trials as tolerated -Continuos SPO2 monitoring -goal above 92% GI: Transaminitis, protein calorie malnutrition, biliary dilation, r/o cholangitis, h/o pancreatic cancer s/p stent placement -CT abdomen/pelvis showed pancreatic cancer with metallic stent with possible occlusion, mild pelvic fluid and mild colonic thickening -GI consulted, appreciate recommendations -MRCP pending-> plan for once respiratory status stable -If stent occlusion/biliary obstruction would recommend IR consult for PTC drain per GI -Ntr consult for TF -ST evaluation -PPI -BR: senokat -24-hour +583 mL -Acute hepatitis panel negative -Trend LFTs -Abd US shows findings similar to hepatomegaly and steatosis without significant abnormalities in the right quadrant -Bentyl QID -BM 06/09 : Urinary retention -Strict intake and output -Almaraz replaced 06/05 d/t retention -FWF reduced to original ntr orders -Daily weights -Renally dose meds -Avoid nephrotoxins -Repeat potassium -Trend BMP Endo: Hyperglycemia, s/p hypoglycemia -Hypoglycemia protocol -Avoid hypoglycemia -SSI every 6 hours -Lantus, titrate as needed ID: Septic shock, COVID 19 PNA, 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 -COVID 19 PCR (+), initial COVID 19 PCR (-) -Blood cultures x2 no growth to date -Remdisivir 06/03-06/06 -Dexamethasone 05/28-06/07 -currently on Stress dose steroids -s/p IV meropenem -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 -ID aware, no need to treat per ID -Contact/droplet precautions -Monitor WBC and fever curve -Vitamin C/D/zinc -Trend COVID 19 inflammatory marker Heme: Elevated INR, thrombocytopenia, elevated ddimer, leukocytosis -Trend CBC -Transfuse for hemoglobin less than 7 -SCD to bilateral lower extremities while in bed -Lovenox subcu->changed to arixta -BLE doppplar US negative for DVT -HIT pending -RUE swelling-> RUE doppler neg DVT Oncology: h/o pancreatic head cancer -F/U with outpatient oncologist -was on radiation prior to admission -Not a surgical candidate per GI -Right chest post accessed -CA 19-9 pending The high probability of a clinically significant, sudden or life threatening deterioration of the [resp, GI] system(s) required my full and direct attention, intervention and personal management. The aggregate critical care time was [60] minutes. This time is in addition to time spent performing reported procedures but includes the following: [x] Data Review and interpretation [x] Patient assessment and monitoring of vital signs [x] Documentation [x] Medication orders and management Disposition Plan: icu Total Time Spent with Patient (Minutes): 60 History Interval history: This is a 51-year-old female with COPD, pancreatic cancer and radiation, s/p pancreatic stent placement, pulmonary fibrosis, hypertension and chronic respiratory failure on 2 L oxygen via nasal cannula who presented to emergency department on 05/11 with complaints of right upper quadrant pain which started approximately at 0200 with nausea and vomiting. Work-up in the emergency department included a CTA chest which showed no pulmonary embolism, mild fluid- filled esophagus and distended stomach with bilateral interstitial opacity in the chest, and CT abdomen/pelvis with contrast which showed persistent pancreatic carcinoma with indwelling metallic stent which is suspected to be occluded. Lab work revealed leukocytosis, transaminitis and lactic acidosis. Patient became hypotensive in the emergency department and required 3 L of IV fluid and was eventually started on vasopressors after placement of femoral central line. Patient was started on empiric antibiotics. Admitted to the hospitalist service with consults to GI and [facility] for transaminitis, possible sepsis, and lactic acidosis. she was set to discharge to hospice however she test positive to COVID 19 and was eventually intubated. 05/12: Patient remains on high-dose Levophed and vasopressin. Given 1 L LR bolus. GI would like an MRCP to be conducted which has been ordered. Patient cleared for sips of water. Added Tessalon due to severe cough. Potassium repleted. Covid PCR negative. 05/13: Remains on Levophed and vasopressin has been off since yesterday evening. Started on stress dose steroids. MRCP pending. Hypokalemia, hypomagnesemia and hypophosphatemia repleted. Liver enzymes trending down. Started on D5 norm al saline yesterday. 05/14: Patient with worsen respiratory status this am, tachypneic with increased O2 requirement. On full support on the Bipap this am with worsening diffuse bilateral opacities on CXR, s/p X1 dose of IV lasix overnight. Patient remains afebrile with no leukocytosis. Will continue IV Lasix X3 doses, f/u CXR in the am. D/W CCM due to patient worsening respiratory status hold on MRCP for today. Patient is off Levophed this am, leave pressors on standby might need to be put back on low dose pressors with IV diuretic. Patient also noted with Rt. fem CVC which was inserted in the ED, most likely due to be change, unsuccessfult PICC by IVT today and patient is refusing Port access at this time. 05/15: Patient remains on continuous Bipap overnight, desat when bipap is remove d for mouth care. Plan to wean Fio2 as tolerated for SPO2 goal above 90%. Febrile overnight, TMAX 101.4, on IV abx zosyn, repeat blood culture ordered. Low K and phosph repleted, repeat labs in the am. 05/16: Patient back on full support on the Bipap, still not tolerating FiO2 wean, patient desat in the 80s. D/w CCM plan to continue continuous bipap for now, patient going on over 4 days with no nutrition plan to initiate TPN tomorrow. D10w gtt added for hypoglycemia. Patient platelet continue to steadily drop, given patient's history with continue AC for now, H&H is stable, no s/s of any active bleeding. Electrolytes repleted, will continue to trend CBC, BMP, mg, and phos. MRCP canceled, plan to reorder once patient's respiratory status is more stable. 05/17: Patient remains on continuous Bipap. Patient remains on low dose Levophed, plan to wean off pressors as tolerated for a MAP above 65. Clinimix initiated overnight, plan to start TPN tonight. Hyperglycemic overnight, SSI was initiated. Low phos repleted, repeat lab in the am. 05/18: Down to 60% FIo2 on the Bipap, SPO2 above 97%. Off pressros this am, TPN is running. Patient is now hyperglycemic, SSI adjusted. Consider basal dose, lantus if hyperglycemia persist. This am labs noted, hyperkalemia and really high glucose noted totally different from normal trend, orders placed for redraw. 05/19: Overnight events noted. Started on PRN haldol for agitation. Patient placed on heated high Flow at 100%, 40L SPO2 at 100%. Continue to wean Fio2 as tolerated for SPO2 for SPO2 above 92%. Continue TPN for now. Patient still hype rglycemic basal dose lantus added Qhs. 05/20: Patient is tolerating HHFL NC, SPO2 above 95%. Continue HHFL NC during and Bipap at night. Still on TPN for nutrition, hyperglycemia persists- basal insulin increased. Low K and phosp was repleted, repeat lab in the am. 05/21: Patient unable to tolerate OptiFlow for more than couple hours and was placed back on BiPAP due to desaturation. Patient remains on TPN for nutrition which was held today due to hyperkalemia. P.m. BMP ordered but not collected. Patient refused to have port accessed and PICC line ordered. Down grading to [facility] status 05/22: abdominal ultrasound shows findings of emergency megaly and steatosis without other significant abnormality in the right upper quadrant. ST eval ordered and Ntr consult for cyclic TF. midline ordered 05/21 abdominal ultrasound shows findings of emergency megaly and steatosis without other significant abnormality in the right upper quadrant. ST eval ordered and Ntr consult for cyclic TF. midline ordered 05/23/ Patient with acute on chronic resp failure, COPD, pancreatic cancer. She has been transferred to IMCU. She is on BIPAP Hypomag. Replace and recheck in am 05/24/21 Patient with acute on chronic resp failure. Still on BIPAP. To start tube feeding 05/25/21: Patient with acute on chronic respiratory failure, She desaturated down to Oxygen sat 85% today, Will order CT Angio to r/o pulmonary embolism 05/26/21: patient remains on bipap, o2 sat in 90s. CT angio not completed yesterday as patient could not lay flat. Add dilaudid for improved pain control to patient medications and advised waitstaff to re-attempt CT angio. Patient has a poor prognosis given pulmonary fibrosis and pancreatic cancer. Will likely re- visit talks of palliaitive care as she may benefit more from this. 05/27/21: Remains bipap dependent. D/w patient regarding comfort care/hospice, she is interested. CM consulted. Patient would still like to remain full code 05/28/21: Remains bipap dependent. Spoke with Cherylshayy (daughter) who states that she is in agreement for comfort measures for her mother. Coordinating with case management for inpatient hospice referral. Daughter also requested to see her mother in person. Unfortunately due to visitation limitations as a result of the COVID-19 pandemic, daughter will only be able to communicate via telecommunication devices at this time. Care staff was notified the patient is Polish-speaking and to call the daughter if they would like to communicate with the patient. 05/29/2021: Spoke with Eriberto (daughter) who states that she is in agreement for comfort measures for her mother. Referral made to [facility]. Patient will discharge to inpatient hospice today. 05/30/2021: Patient's covid test results returned positive. Patient's pending discharge was cancelled as inpatient hospice will not accept a covid + patient. Case Management met with patient's daughter to update on status. Patient's prognosis remains poor. Patient on BiPAP (IPAP 15, EPAP 10, FiO2 85%). Patient started on steroids yesterday and we will start remdesivir today. I discussed the case with pulmonary. Patient will remain a full code I discussed the case with the daughter. 05/31/2021: Patient remains on BiPAP (IPAP 15, EPAP 10, FiO2 80%). Patient's prognosis remains poor. Continue steroids and remdesivir. 06/01/2021. Patient currently off BiPAP and with high flow nasal cannula/nonrebreather 40 L O2 with FiO2 of 100%. Continue BiPAP at night. Patient will be intubated and placed on mechanical ventilation if she decompensates. Patient's prognosis remains poor. Continue steroids and remdesivir. Pulmonary Taper dexamethasone to 4 mg IV daily. Follow-up serial chest x-ray and ABGs. Patient with gentle diuresis with Lasix 20 mg IV daily. 06/02: Patient intubated and sedated, RASS -5. Now hypotensive with tachycardia, on levophed gtt, continue continuous IVF and titrate pressors for MAP above 65. Hypokalemia and hypomagnesemia repleted, repeat labs 4hrs post treatment. Severely hypoglycemic this am, per RN TF has been on hold since patient was on Bipap. Low BG treated per hypoglycemic protocol, plan to resume TF today. 06/03: RASS of 0 to -1 this am, following commands, remains on sedation. Mirza in WBCs this am, patient remains afebrile, blood culture and sputum culture pending. Probably reactive, patient on IV steroids, remdesevir starting tonight. Continue to trend CBC. Conference call with [facility] and patient's son and daughter today. All questions and concerns were addressed. 06/04: started on stress dose steroids, BLE dopplars pending, Remove almaraz and request records. 06/05: HIT panel sent today, started Arixtra, decrease free water flush, almaraz replaced re retention, Will not treat gram-negative in tracheal aspirate until speciation given normal WBCs and afebrile state. increase in the long acting insulin. Levophed titrated off 06/06: Noted to have subcutaneous air and his stat CXR showed no pneumothorax, vent changes per [facility]. Hypokalemia which was repleted. Right upper extremity Doppler ultrasound obtained due to swelling but shows no DVT 06/07: No acute events reported overnight. Sedation increased today due to tachypnea. 06/08: No acute events overnight, will order CA 199, hospital records reviewed, decreasing FiO2. Reglan started due to increased to feeding residuals and placed back on Levophed. 05/30: This morning RN reported patient had a cuff leak and was tachycardic/hypoxic. RT amended cuff leak and sedation was increased which helped the patient. Levophed transition as needed for adequate sedation. Hospitalist Physical - Physical exam Narrative exam: - EENT Eyes: Present: PERRL, EOM intact ENT: clear oral mucosa, dentition normal - Neck Neck: Present: normal ROM - Respiratory Respiratory effort: normal Respiratory: bilateral: diminished - Cardiovascular Rhythm: regular Heart Sounds: Present: S1 & S2. Absent: systolic murmur, diastolic murmur - Extremities Extremities: no ischemia, pulses intact, pulses symmetrical, normal temperature, normal color Extremity abnormal: edema (Right upper extremity), other Peripheral Pulses: within normal limits - Abdominal General gastrointestinal: soft, non-tender, non-distended, normal bowel sounds - Integumentary Integumentary: Present: warm (Subcutaneous air chest/neck), dry - Psychiatric Psychiatric: other (Sedated) - Neurologic Neurologic: other (Intact cough/gag, pupils equal round reactive) - Allied Health Allied health notes reviewed: nursing, RT, social work - Constitutional Vitals: Temp Pulse Resp BP Pulse Ox 99.2 F 99 H 25 H 94/53 97 06/09/21 04:00 06/09/21 18:00 06/09/21 18:00 06/09/21 18:00 06/09/21 18:00 General appearance: Present: no acute distress, other (Intubated and Sedated) Results - Labs CBC & Chem 7: 06/09/21 04:48 06/09/21 04:48 Labs: Laboratory Last Values WBC 10.3 K/mm3 (4.5-11.0) 06/09/21 04:48 RBC 3.14 M/mm3 (3.65-5.03) L 06/09/21 04:48 Hgb 9.8 gm/dl (10.1-14.3) L 06/09/21 04:48 Hct 31.2 % (30.3-42.9) 06/09/21 04:48 MCV 99 fl (79-97) H 06/09/21 04:48 MCH 31 pg (28-32) 06/09/21 04:48 MCHC 31 % (30-34) 06/09/21 04:48 RDW 24.3 % (13.2-15.2) H 06/09/21 04:48 Plt Count 124 K/mm3 (140-440) L 06/09/21 04:48 Lymph % (Auto) 12.8 % (13.4-35.0) L 06/02/21 08:59 Reeves % (Auto) 1.0 % (0.0-7.3) 06/02/21 08:59 Eos % (Auto) 10.2 % (0.0-4.3) H 06/02/21 08:59 Baso % (Auto) 0.5 % (0.0-1.8) 06/02/21 08:59 Lymph # (Auto) 0.6 K/mm3 (1.2-5.4) L 06/02/21 08:59 Reeves # (Auto) 0.0 K/mm3 (0.0-0.8) 06/02/21 08:59 Eos # (Auto) 0.5 K/mm3 (0.0-0.4) H 06/02/21 08:59 Baso # (Auto) 0.0 K/mm3 (0.0-0.1) 06/02/21 08:59 Add Manual Diff Complete 05/12/21 04:08 Total Counted 200 05/12/21 04:08 Seg Neutrophils % 75.5 % (40.0-70.0) H 06/02/21 08:59 Seg Neuts % (Manual) 85.5 % (40.0-70.0) H 05/12/21 04:08 Band Neutrophils % 8.5 % 05/12/21 04:08 Lymphocytes % (Manual) 2.0 % (13.4-35.0) L 05/12/21 04:08 Monocytes % (Manual) 3.0 % (0.0-7.3) 05/12/21 04:08 Eosinophils % (Manual) 1.0 % (0.0-4.3) 05/12/21 04:08 Nucleated RBC % Not Reportable 05/12/21 04:08 Seg Neutrophils # 3.6 K/mm3 (1.8-7.7) 06/02/21 08:59 Seg Neutrophils # Man 19.5 K/mm3 (1.8-7.7) H 05/12/21 04:08 Band Neutrophils # 1.9 K/mm3 05/12/21 04:08 Lymphocytes # (Manual) 0.5 K/mm3 (1.2-5.4) L 05/12/21 04:08 Abs React Lymphs (Man) 0.0 K/mm3 05/12/21 04:08 Monocytes # (Manual) 0.7 K/mm3 (0.0-0.8) 05/12/21 04:08 Eosinophils # (Manual) 0.2 K/mm3 (0.0-0.4) 05/12/21 04:08 Basophils # (Manual) 0.0 K/mm3 (0.0-0.1) 05/12/21 04:08 Metamyelocytes # 0.0 K/mm3 05/12/21 04:08 Myelocytes # 0.0 K/mm3 05/12/21 04:08 Promyelocytes # 0.0 K/mm3 05/12/21 04:08 Blast Cells # 0.0 K/mm3 05/12/21 04:08 WBC Morphology Not Reportable 05/12/21 04:08 Hypersegmented Neuts Not Reportable 05/12/21 04:08 Hyposegmented Neuts Not Reportable 05/12/21 04:08 Hypogranular Neuts Not Reportable 05/12/21 04:08 Smudge Cells Not Reportable 05/12/21 04:08 Toxic Granulation Not Reportable 05/12/21 04:08 Toxic Vacuolation Not Reportable 05/12/21 04:08 Dohle Bodies Not Reportable 05/12/21 04:08 Pelger-Huet Anomaly Not Reportable 05/12/21 04:08 Elizabeth Rods Not Reportable 05/12/21 04:08 Platelet Estimate Consistent w auto 05/12/21 04:08 Clumped Platelets Not Reportable 05/12/21 04:08 Plt Clumps, EDTA Not Reportable 05/12/21 04:08 Large Platelets Not Reportable 05/12/21 04:08 Giant Platelets Not Reportable 05/12/21 04:08 Platelet Satelliting Not Reportable 05/12/21 04:08 Plt Morphology Comment Not Reportable 05/12/21 04:08 RBC Morphology Not Reportable 05/12/21 04:08 Dimorphic RBCs Not Reportable 05/12/21 04:08 Polychromasia Not Reportable 05/12/21 04:08 Hypochromasia Not Reportable 05/12/21 04:08 Poikilocytosis Not Reportable 05/12/21 04:08 Anisocytosis 1+ 05/12/21 04:08 Microcytosis Not Reportable 05/12/21 04:08 Macrocytosis Not Reportable 05/12/21 04:08 Spherocytes Not Reportable 05/12/21 04:08 Pappenheimer Bodies Not Reportable 05/12/21 04:08 Sickle Cells Not Reportable 05/12/21 04:08 Target Cells Not Reportable 05/12/21 04:08 Tear Drop Cells Not Reportable 05/12/21 04:08 Ovalocytes Not Reportable 05/12/21 04:08 Helmet Cells Not Reportable 05/12/21 04:08 [place] Bodies Not Reportable 05/12/21 04:08 [place] Rings Not Reportable 05/12/21 04:08 [place] Cells Not Reportable 05/12/21 04:08 Bite Cells Not Reportable 05/12/21 04:08 Crenated Cell Not Reportable 05/12/21 04:08 Elliptocytes Not Reportable 05/12/21 04:08 Acanthocytes (Spur) Not Reportable 05/12/21 04:08 Rouleaux Not Reportable 05/12/21 04:08 Hemoglobin C Crystals Not Reportable 05/12/21 04:08 Schistocytes Not Reportable 05/12/21 04:08 Malaria parasites Not Reportable 05/12/21 04:08 Tahir Bodies Not Reportable 05/12/21 04:08 Hem Pathologist Commnt No 05/12/21 04:08 PT 15.9 Sec. (12.2-14.9) H 06/05/21 06:00 INR 1.15 (0.87-1.13) H 06/05/21 06:00 APTT 37.1 Sec. (24.2-36.6) H 06/05/21 06:00 D-Dimer 1938.43 ng/mlDDU (0-234) H 06/07/21 04:36 ABG pH 7.363 (7.320-7.450) 06/09/21 02:45 POC ABG pCO2 56.0 mmHg (32.0-48.0) H 06/09/21 02:45 ABG pCO2 55.5 mm Hg 06/07/21 10:50 POC ABG pO2 54.3 mmHg (83-108) L 06/09/21 02:45 ABG pO2 66.6 mm Hg (80.0-90.0) L 06/07/21 10:50 POC ABG HCO3 31.1 06/09/21 02:45 ABG HCO3 35.7 mmol/L (20.0-26.0) H 06/07/21 10:50 ABG O2 Saturation 87.2 (0-100) 06/09/21 02:45 ABG O2 Content 8.3 (0.0-44) 06/07/21 10:50 POC ABG Base Excess 4.6 06/09/21 02:45 ABG Base Excess 10.3 mmol/L (-2.0-3.0) H 06/07/21 10:50 ABG Hemoglobin 11.1 (12.0-17.5) L 06/09/21 02:45 ABG Oxyhemoglobin 85.6 (94-98) L 06/09/21 02:45 ABG Carboxyhemoglobin 2.3 % (0.0-5.0) 06/07/21 10:50 ABG Methemoglobin 0.2 (0.0-1.5) 06/09/21 02:45 ABG Sodium 141.5 mmol/L (136.0-145.0) 06/09/21 02:45 ABG Potassium 3.9 mmol/L (3.40-4.50) 06/09/21 02:45 ABG Chloride 102.0 mmol/L (98-107) 06/09/21 02:45 ABG Glucose 191 mg/dL (65-95) H 06/09/21 02:45 Oxyhemoglobin 94.7 % (95.0-99.0) L 06/07/21 10:50 Carboxyhemoglobin 1.6 (0.5-1.5) H 06/09/21 02:45 FiO2 80 % 06/07/21 10:50 FiO2 % 75.0 06/09/21 02:45 Sodium 145 mmol/L (137-145) 06/09/21 04:48 Potassium 4.0 mmol/L (3.6-5.0) 06/09/21 04:48 Chloride 103.7 mmol/L (98-107) 06/09/21 04:48 Carbon Dioxide 29 mmol/L (22-30) 06/09/21 04:48 Anion Gap 16 mmol/L 06/09/21 04:48 BUN 29 mg/dL (7-17) H 06/09/21 04:48 Creatinine 0.5 mg/dL (0.6-1.2) L 06/09/21 04:48 Estimated GFR > 60 ml/min 06/09/21 04:48 BUN/Creatinine Ratio 58 % 06/09/21 04:48 Glucose 225 mg/dL (65-100) H 06/09/21 04:48 POC Glucose 192 mg/dL (70-105) H 06/09/21 16:38 Hemoglobin A1c 5.2 % (4-6) 05/12/21 04:08 Lactic Acid 3.30 mmol/L (0.7-2.0) H* 05/12/21 Unknown Calcium 7.7 mg/dL (8.4-10.2) L 06/09/21 04:48 Phosphorus 5.10 mg/dL (2.5-4.5) H 06/09/21 04:48 Magnesium 1.70 mg/dL (1.7-2.3) 06/07/21 04:36 Ferritin 1287.0 ng/mL (10.0-200.0) H 06/07/21 04:36 Total Bilirubin 0.80 mg/dL (0.1-1.2) 06/06/21 05:26 Direct Bilirubin 1.6 mg/dL (0-0.2) H 05/23/21 10:15 Indirect Bilirubin 0.7 mg/dL 05/23/21 10:15 AST 25 units/L (5-40) 06/06/21 05:26 ALT 42 units/L (7-56) 06/06/21 05:26 Alkaline Phosphatase 207 units/L (35-129) H 06/06/21 05:26 Lactate Dehydrogenase 270 units/L (91-180) H 06/07/21 04:36 C-Reactive Protein 26.70 mg/dL (0.00-1.30) H 06/07/21 04:36 NT-Pro-B Natriuret Pep 2326 pg/mL (0-900) H 06/02/21 22:00 Total Protein 5.5 g/dL (6.3-8.2) L 06/06/21 05:26 Albumin 2.0 g/dL (3.9-5) L 06/06/21 05:26 Albumin/Globulin Ratio 0.6 % 06/06/21 05:26 Triglycerides 95 mg/dL (2-149) 06/07/21 04:36 Lipase 3 units/L (13-60) L 05/11/21 05:43 Arterial Blood Glucose 191 mg/dL (65-95) H 06/09/21 02:45 Arterial Blood Ionized Calcium 4.4 mg/dL (4.6-5.3) L 06/09/21 02:45 Urine Color Deisi (Yellow) 05/11/21 11:18 Urine Turbidity Clear (Clear) 05/11/21 11:18 Urine pH 6.0 (5.0-7.0) 05/11/21 11:18 Ur Specific [place] 1.035 (1.003-1.030) H 05/11/21 11:18 Urine Protein 100 mg/dl mg/dL (Negative) 05/11/21 11:18 Urine Glucose (UA) Neg mg/dL (Negative) 05/11/21 11:18 Urine Ketones Neg mg/dL (Negative) 05/11/21 11:18 Urine Blood Neg (Negative) 05/11/21 11:18 Urine Nitrite Neg (Negative) 05/11/21 11:18 Urine Bilirubin Neg (Negative) 05/11/21 11:18 Urine Urobilinogen < 2.0 mg/dL (<2.0) 05/11/21 11:18 Ur Leukocyte Esterase Neg (Negative) 05/11/21 11:18 Urine WBC (Auto) 2.0 /HPF (0.0-6.0) 05/11/21 11:18 Urine RBC (Auto) 1.0 /HPF (0.0-6.0) 05/11/21 11:18 Urine Mucus Few /HPF 05/11/21 11:18 Vancomycin Trough 25.3 ug/mL (5.0-20.0) H 05/14/21 15:20 Coronavirus (PCR) Positive (Negative) A 05/29/21 08:20 Hepatitis A IgM Ab Non-reactive (NonReactive) 05/12/21 12:30 Hep Bs Antigen Nonreactive (Negative) 05/12/21 12:30 Hep B Core IgM Ab Non-reactive (NonReactive) 05/12/21 12:30 Hepatitis C Antibody Non-reactive (NonReactive) 05/12/21 12:30 Almaraz/IV: Voiding Method Indwelling Catheter Active Medications - Current Medications Current Medications: Generic Name Dose Route Start Last Admin Trade Name Freq PRN Reason Stop Dose Admin Acetaminophen 650 mg 05/11/21 21:40 05/14/21 20:06 Acetaminophen 325 Mg Tab PO 650 mg Q4H PRN Administration Pain MILD(1-3)/Fever >100.5/WOODS Lipase/Protease/Amylase 1 each 05/22/21 16:30 Lipase 10,500/Protease 25,000/Amylase 43,750 (Units) Dr Baker FEEDTUBE PRN PRN For Clogged Feeding Tube Arformoterol Tartrate 15 mcg 05/12/21 08:00 06/09/21 07:17 Arformoterol 15 Mcg/2 Ml Nebu IH 15 mcg Q12HRT ABRAHAN Administration Ascorbic Acid 500 mg 06/02/21 22:00 06/09/21 09:42 Ascorbic Acid 500 Mg Tab PO 500 mg BID ABRAHAN Administration Budesonide 0.5 mg 05/12/21 08:00 06/09/21 07:17 Budesonide 0.5 Mg/2 Ml Nebu IH 0.5 mg Q12HRT ABRAHAN Administration Dextrose 50 ml 05/12/21 11:57 06/02/21 18:34 Dextrose 50% In Water (25gm) 50 Ml Syringe IV 50 ml Q30MIN PRN Administration Hypoglycemia Protocol Dicyclomine HCl 10 mg 05/23/21 14:00 06/09/21 17:40 Dicyclomine 10 Mg Cap PO 10 mg QID ABRAHAN Administration Fentanyl 50 mcg 06/02/21 05:20 Fentanyl 100 Mcg/2 Ml Inj IV Q10MIN PRN ANALGESIA Fondaparinux 2.5 mg 06/05/21 22:00 06/08/21 21:27 Fondaparinux 2.5 Mg/0.5 Ml Inj SUB-Q 2.5 mg QDAY@2200 ABRAHAN Administration Haloperidol Lactate 5 mg 05/19/21 15:00 06/01/21 21:04 Haloperidol Lactate 5 Mg/1 Ml Inj IV 5 mg Q8H PRN Administration Agitation Hydrocortisone Sodium Succinate 100 mg 06/04/21 14:00 06/09/21 13:05 Hydrocortisone Sod Succ 100 Mg/2 Ml Vial IV 100 mg Q8HR ABRAHAN Administration Hydrophilic Ointment 1 applic 06/02/21 17:44 Lip Therapy Vaseline TP Q2HR PRN Dry Lips NORepinephrine/NS 8 MG-250 ML 8 mg in 250 mls @ 3.75 mls/hr 06/02/21 06:00 06/09/21 17:41 Norepinephrine/Ns 8 Mg-250 Ml (Double Conc) IV 12 mcg/min TITRATE ABRAHAN 22.5 mls/hr Titration Protocol 2 MCG/MIN Propofol 1,000 mg in 100 mls @ 1.932 mls/hr 06/02/21 06:00 06/09/21 11:11 Diprivan 10 Mg/Ml IV 25 mcg/kg/min TITR ABRAHAN 9.66 mls/hr Administration Protocol 5 MCG/KG/MIN Fentanyl Citrate 2,000 mcg in 100 mls @ 3.22 mls/hr 06/02/21 06:00 06/09/21 09:41 Fentanyl Drip Premix IV 3 mcg/kg/hr TITR ABRAHAN 9.66 mls/hr Administration Protocol 1 MCG/KG/HR Insulin Glargine 10 units 06/08/21 22:00 06/08/21 21:30 Insulin Glargine 100 Units/Ml SUB-Q 10 units QHS ABRAHAN Administration Insulin Human Lispro 0 unit 05/17/21 12:00 06/09/21 17:40 Insulin Lispro 100 Unit/Ml SUB-Q 3 unit Q6HR ABRAHAN Administration Protocol Lansoprazole 30 mg 05/28/21 10:00 06/09/21 09:42 Lansoprazole 30 Mg Solutab FEEDTUBE 30 mg QDAY ABRAHAN Administration Metoclopramide HCl 10 mg 06/08/21 12:00 06/09/21 17:40 Metoclopramide 10 Mg/2 Ml Inj IV 10 mg Q6HR ABRAHAN Administration Multi-Ingred Cream/Lotion/Oil/Oint 1 applic 06/02/21 17:44 Mineral Oil/Petrolatum, White Ophth Oint 3.5 Gm OU Q4HR PRN Dry Eye(s) Ondansetron HCl 4 mg 05/11/21 21:40 05/15/21 09:57 Ondansetron 4 Mg/2 Ml Inj IV 4 mg Q8H PRN Administration Nausea And Vomiting Senna/Docusate Sodium 1 tab 06/02/21 22:00 06/09/21 09:43 Sennosides/Docusate Sodium 8.6/50 Mg Tab FEEDTUBE Not Given BID ABRAHAN Simple Syrup 15 ml 05/22/21 16:30 Simple Syrup 15 Ml FEEDTUBE PRN PRN Hypoglycemia Simple Syrup 30 ml 05/22/21 16:30 Simple Syrup 15 Ml FEEDTUBE PRN PRN Hypoglycemia Sodium Bicarbonate 325 mg 05/22/21 16:30 Sodium Bicarbonate 325 Mg Tab FEEDTUBE PRN PRN For Clogged Feeding Tube Sodium Chloride 10 ml 05/11/21 22:00 06/09/21 09:43 Sodium Chloride 0.9% 10 Ml Flush Syringe IV 10 ml BID ABRAHAN Administration Sodium Chloride 10 ml 05/11/21 21:40 05/23/21 21:00 Sodium Chloride 0.9% 10 Ml Flush Syringe IV 10 ml PRN PRN Administration LINE FLUSH Zinc Sulfate 220 mg 06/02/21 22:00 06/09/21 09:42 Zinc Sulfate 220 Mg Cap PO 220 mg BID ABRAHAN Administration Nutrition/Malnutrition Assess - Dietary Evaluation Nutrition/Malnutrition Findings: Nutrition Notes Start: 05/13/21 09:47 Freq: Status: Active Protocol: Document 06/09/21 12:03 MRAITZA (Rec: 06/09/21 12:05 [facility] [id number]) Nutrition Notes Initial or Follow up Brief Note Pertinent Medications Propofol at 9.66ml/hr ( provides 255 kcal) Subjective/Other Information Unable to reach RN via phone. Propofol rate increased sec to work of breathing and desaturation. Pt remains on vent support. Nutrition Intervention Follow-Up By: 06/11/21 Additional Comments F/U: TF tolerance, vent status , propofol
[2021-06-09] MEDS: FONDAPARINUX 2.5 MG/0.5 ML INJ SUB-Q SCH (22:05)
[2021-06-09] MEDS: INSULIN GLARGINE 100 UNITS/ML SUB-Q SCH (22:06)
[2021-06-10] MEDS: INSULIN LISPRO 100 UNIT/ML SUB-Q SCH ×4 (00:54→17:00)
[2021-06-10] MEDS: METOCLOPRAMIDE 10 MG/2 ML INJ IV SCH ×4 (00:54→17:00)
[2021-06-10] MEDS: FREE WATER PO SCH ×6 (02:33→21:31)
[2021-06-10] MEDS: HYDROCORTISONE SOD SUCC 100 MG/2 ML VIAL IV SCH ×3 (05:26→21:30)
[2021-06-10] MEDS: fentaNYL DRIP Premix 2,000 MCG/100 ML BAG IV SCH ×2 (06:18→16:13)
[2021-06-10] MEDS: ARFORMOTEROL 15 MCG/2 ML NEBU IH SCH ×2 (07:48→20:23)
[2021-06-10] MEDS: BUDESONIDE 0.5 MG/2 ML NEBU IH SCH ×2 (07:48→20:23)
[2021-06-10 08:48] LABS: Mean Corpuscular HGB Conc 31 % (30-34); Mean Corpuscular Volume 101 fl (79-97); Platelet Count 146 K/mm3 (140-440); Red Blood Count 3.17 M/mm3 (3.65-5.03)
[2021-06-10 08:57] LABS: Red Cell Distribution Width 24.6 % (13.2-15.2)
[2021-06-10] MEDS: ZINC SULFATE 220 MG CAP PO SCH ×2 (09:02→21:30)
[2021-06-10] MEDS: DICYCLOMINE 10 MG CAP PO SCH ×4 (09:02→21:29)
[2021-06-10] MEDS: LANSOPRAZOLE 30 MG SOLUTAB FEEDTUBE SCH (09:02)
[2021-06-10] MEDS: ASCORBIC ACID 500 MG TAB PO SCH ×2 (09:02→21:29)
[2021-06-10] MEDS: NORepinephrine/NS 8 MG-250 ML 8 MG/250 ML INFUS..BTL IV SCH (09:02)
[2021-06-10] MEDS: SENNOSIDES/DOCUSATE SODIUM 8.6/50 MG TAB FEEDTUBE SCH ×2 (09:03→21:30)
[2021-06-10 09:08] LABS: BUN/Creatinine Ratio 86; Blood Urea Nitrogen 43 mg/dL (7-17); Calcium 8.4 mg/dL (8.4-10.2); Hemolysis Index 8
[2021-06-10] MEDS ORDERED: SODIUM POLYSTYRENE 15 GM/60 ML ORAL LIQD PO ONE (10:00)
--- NOTE | 2021-06-10 11:12 | XRay Report ---
ABDOMEN 1 VIEW INDICATION / CLINICAL INFORMATION: NGT Placement. COMPARISON: 12/18/2019. FINDINGS: Nasogastric tube tip and side-port project in the stomach. Biliary stent is again seen. Bowel gas pat tern is nonobstructive. IMPRESSION: Gastric positioning of nasogastric tube. Signer Name: Bubba Moran MD Signed: 06/10/2021 11:07 AM Workstation Name: [id number]
--- NOTE | 2021-06-10 14:11 | Progress Note ---
Assessment and Plan Assessment and plan: This is a 48-year-old female with COPD, pancreatic cancer with radiation s/p pancreatic stent placement, pulmonary fibrosis, chronic respiratory failure on 2 L nasal cannula admitted with sepsis, transaminitis and lactic acidosis now with COVID 19 PNA and acute hypoxic respiratory failure. Neuro: Sedated -Sedated with propofol and fentanyl -RASS goal 0 to -1 -Avoid delirium -Reorientation as needed -Maintain sleep-wake cycle -Daily SAT and SBT when appropriate CV: Hypotension, h/o HTN -Hold home htn medications -vasopressor support with levo -map goal > 65 -BP monitoring per protocol -Hold home htn medications -s/p IV Lasix X 3 days Respiratory: Acute on chronic respiratory failure, h/o pulmonary fibrosis, acute on chronic respiratory failure on home O2 of 2 L nasal cannula -Intubated on 06/02 with 7.5 oett with 22 @ lips -AM vent settings: AC Rate 25, PEEP 8, tidal volume 350, FiO2 75% -See RT note for titration -ABG and CXR per CCM -VAP bundle -s/p Bipap and Optiflow -Pulmicort, brovana -Daily SBT and SAT trials as tolerated -Continuos SPO2 monitoring -goal above 92% GI: Transaminitis, protein calorie malnutrition, biliary dilation, r/o cholangitis, h/o pancreatic cancer s/p stent placement -CT abdomen/pelvis showed pancreatic cancer with metallic stent with possible occlusion, mild pelvic fluid and mild colonic thickening -GI consulted, appreciate recommendations -MRCP planned but unable to obtain -If stent occlusion/biliary obstruction would recommend IR consult for PTC drain per GI -Ntr consult for TF -ST evaluation -PPI -BR: senokat -24-hour +1553 mL -Acute hepatitis panel negative -Trend LFTs -Abd US shows findings similar to hepatomegaly and steatosis without significant abnormalities in the right quadrant -Bentyl QID -BM 06/09 : Urinary retention -Strict intake and output -Almaraz replaced 06/05 d/t retention -FWF reduced to original ntr orders -Daily weights -Renally dose meds -Avoid nephrotoxins -Repeat potassium -Trend BMP Endo: Hyperglycemia, s/p hypoglycemia -Hypoglycemia protocol -Avoid hypoglycemia -SSI every 6 hours -Lantus, titrate as needed ID: Septic shock, COVID 19 PNA, 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 -COVID 19 PCR (+), initial COVID 19 PCR (-) -Blood cultures x2 no growth to date -Remdisivir 06/03-06/06 -Dexamethasone 05/28-06/07 -currently on Stress dose steroids -consider weaning steroids as today is day 7 -s/p IV meropenem -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 -ID aware, no need to treat per ID -Contact/droplet precautions -Monitor WBC and fever curve -Vitamin C/D/zinc -Trend COVID 19 inflammatory marker Heme: Elevated INR, thrombocytopenia, elevated ddimer, leukocytosis -Trend CBC -Transfuse for hemoglobin less than 7 -SCD to bilateral lower extremities while in bed -Lovenox subcu->changed to arixta -BLE doppplar US negative for DVT -HIT pending -RUE swelling-> RUE doppler neg DVT Oncology: h/o pancreatic head cancer -F/U with outpatient oncologist -was on radiation prior to admission -Not a surgical candidate per GI -Right chest post accessed -CA 19-9 pending The high probability of a clinically significant, sudden or life threatening deterioration of the [resp, GI] system(s) required my full and direct attention, intervention and personal management. The aggregate critical care time was [90] minutes. This time is in addition to time spent performing reported procedures but includes the following: [x] Data Review and interpretation [x] Patient assessment and monitoring of vital signs [x] Documentation [x] Medication orders and management Disposition Plan: icu Total Time Spent with Patient (Minutes): 90 History Interval history: This is a 51-year-old female with COPD, pancreatic cancer and radiation, s/p pancreatic stent placement, pulmonary fibrosis, hypertension and chronic respir atory failure on 2 L oxygen via nasal cannula who presented to emergency department on 05/11 with complaints of right upper quadrant pain which started approximately at 0200 with nausea and vomiting. Work-up in the emergency department included a CTA chest which showed no pulmonary embolism, mild fluid- filled esophagus and distended stomach with bilateral interstitial opacity in the chest, and CT abdomen/pelvis with contrast which showed persistent pancreatic carcinoma with indwelling metallic stent which is suspected to be occluded. Lab work revealed leukocytosis, transaminitis and lactic acidosis. Patient became hypotensive in the emergency department and required 3 L of IV fluid and was eventually started on vasopressors after placement of femoral central line. Patient was started on empiric antibiotics. Admitted to the hospitalist service with consults to GI and CCM for transaminitis, possible sepsis, and lactic acidosis. she was set to discharge to hospice however she test positive to COVID 19 and was eventually intubated. 05/12: Patient remains on high-dose Levophed and vasopressin. Given 1 L LR bolus. GI would like an MRCP to be conducted which has been ordered. Patient cleared for sips of water. Added Tessalon due to severe cough. Potassium repleted. Covid PCR negative. 05/13: Remains on Levophed and vasopressin has been off since yesterday evening. Started on stress dose steroids. MRCP pending. Hypokalemia, hypomagnesemia and hypophosphatemia repleted. Liver enzymes trending down. Started on D5 normal saline yesterday. 05/14: Patient with worsen respiratory status this am, tachypneic with increased O2 requirement. On full support on the Bipap this am with worsening diffuse bilateral opacities on CXR, s/p X1 dose of IV lasix overnight. Patient remains afebrile with no leukocytosis. Will continue IV Lasix X3 doses, f/u CXR in the am. D/W CCM due to patient worsening respiratory status hold on MRCP for today. Patient is off Levophed this am, leave pressors on standby might need to be put back on low dose pressors with IV diuretic. Patient also noted with Rt. fem CVC which was inserted in the ED, most likely due to be change, unsuccessfult PICC by IVT today and patient is refusing Port access at this time. 05/15: Patient remains on continuous Bipap overnight, desat when bipap is removed for mouth care. Plan to wean Fio2 as tolerated for SPO2 goal above 90%. Febrile overnight, TMAX 101.4, on IV abx zosyn, repeat blood culture ordered. Low K and phosph repleted, repeat labs in the am. 05/16: Patient back on full support on the Bipap, still not tolerating FiO2 wean, patient desat in the 80s. D/w CCM plan to continue continuous bipap for now, patient going on over 4 days with no nutrition plan to initiate TPN tomorrow. D10w gtt added for hypoglycemia. Patient platelet continue to steadily drop, given patient's history with continue AC for now, H&H is stable, no s/s of any active bleeding. Electrolytes repleted, will continue to trend CBC, BMP, mg, and phos. MRCP canceled, plan to reorder once patient's respiratory status is more stable. 05/17: Patient remains on continuous Bipap. Patient remains on low dose Levophed, plan to wean off pressors as tolerated for a MAP above 65. Clinimix initiated overnight, plan to start TPN tonight. Hyperglycemic overnight, SSI was initiated. Low phos repleted, repeat lab in the am. 05/18: Down to 60% FIo2 on the Bipap, SPO2 above 97%. Off pressros this am, TPN is running. Patient is now hyperglycemic, SSI adjusted. Consider basal dose, lantus if hyperglycemia persist. This am labs noted, hyperkalemia and really high glucose noted totally different from normal trend, orders placed for redraw. 05/19: Overnight events noted. Started on PRN haldol for agitation. Patient placed on heated high Flow at 100%, 40L SPO2 at 100%. Continue to wean Fio2 as tolerated for SPO2 for SPO2 above 92%. Continue TPN for now. Patient still hyperglycemic basal dose lantus added Qhs. 05/20: Patient is tolerating HHFL NC, SPO2 above 95%. Continue HHFL NC during and Bipap at night. Still on TPN for nutrition, hyperglycemia persists- basal insulin increased. Low K and phosp was repleted, repeat lab in the am. 05/21: Patient unable to tolerate OptiFlow for more than couple hours and was pl aced back on BiPAP due to desaturation. Patient remains on TPN for nutrition which was held today due to hyperkalemia. P.m. BMP ordered but not collected. Patient refused to have port accessed and PICC line ordered. Down grading to [facility] status 05/22: abdominal ultrasound shows findings of emergency megaly and steatosis without other significant abnormality in the right upper quadrant. ST eval ordered and Ntr consult for cyclic TF. midline ordered 05/21 abdominal ultrasound shows findings of emergency megaly and steatosis without other significant abnormality in the right upper quadrant. ST eval ordered and Ntr consult for cyclic TF. midline ordered 05/23/ Patient with acute on chronic resp failure, COPD, pancreatic cancer. She has been transferred to [facility]. She is on BIPAP Hypomag. Replace and recheck in am 05/24/21 Patient with acute on chronic resp failure. Still on BIPAP. To start tube feeding 05/25/21: Patient with acute on chronic respiratory failure, She desaturated down to Oxygen sat 85% today, Will order CT Angio to r/o pulmonary embolism 05/26/21: patient remains on bipap, o2 sat in 90s. CT angio not completed yesterday as patient could not lay flat. Add dilaudid for improved pain control to patient medications and advised hourly sales staff to re-attempt CT angio. Patient has a poor prognosis given pulmonary fibrosis and pancreatic cancer. Will likely re- visit talks of palliaitive care as she may benefit more from this. 05/27/21: Remains bipap dependent. D/w patient regarding comfort care/hospice, she is interested. CM consulted. Patient would still like to remain full code 05/28/21: Remains bipap dependent. Spoke with Eriberto (daughter) who states that she is in agreement for comfort measures for her mother. Coordinating with case management for inpatient hospice referral. Daughter also requested to see her mother in person. Unfortunately due to visitation limitations as a result of the COVID-19 pandemic, daughter will only be able to communicate via [email or web address] devices at this time. Care staff was notified the patient is [place]-speaking and to call the daughter if they would like to communicate with the patient. 05/29/2021: Spoke with Eriberto (daughter) who states that she is in agreement for comfort measures for her mother. Referral made to [facility]. Patient will discharge to inpatient hospice today. 05/30/2021: Patient's covid test results returned positive. Patient's pending discharge was cancelled as inpatient hospice will not accept a covid + patient. Case Management met with patient's daughter to update on status. Patient's prognosis remains poor. Patient on BiPAP (IPAP 15, EPAP 10, FiO2 85%). Patient started on steroids yesterday and we will start remdesivir today. I discussed the case with pulmonary. Patient will remain a full code I discussed the case with the daughter. 05/31/2021: Patient remains on BiPAP (IPAP 15, EPAP 10, FiO2 80%). Patient's prognosis remains poor. Continue steroids and remdesivir. 06/01/2021. Patient currently off BiPAP and with high flow nasal cannula/nonrebr eather 40 L O2 with FiO2 of 100%. Continue BiPAP at night. Patient will be intubated and placed on mechanical ventilation if she decompensates. Patient's prognosis remains poor. Continue steroids and remdesivir. Pulmonary Taper dexamethasone to 4 mg IV daily. Follow-up serial chest x-ray and ABGs. Patient with gentle diuresis with Lasix 20 mg IV daily. 06/02: Patient intubated and sedated, RASS -5. Now hypotensive with tachycardia, on levophed gtt, continue continuous IVF and titrate pressors for MAP above 65. Hypokalemia and hypomagnesemia repleted, repeat labs 4hrs post treatment. Migdalia rely hypoglycemic this am, per RN TF has been on hold since patient was on Bipap. Low BG treated per hypoglycemic protocol, plan to resume TF today. 06/03: RASS of 0 to -1 this am, following commands, remains on sedation. Mirza in WBCs this am, patient remains afebrile, blood culture and sputum culture pending. Probably reactive, patient on IV steroids, remdesevir starting tonight. Continue to trend CBC. Conference call with [facility] and patient's son and daughter today. All questions and concerns were addressed. 06/04: started on stress dose steroids, BLE dopplars pending, Remove almaraz and request records. 06/05: HIT panel sent today, started Arixtra, decrease free water flush, almaraz replaced re retention, Will not treat gram-negative in tracheal aspirate until speciation given normal WBCs and afebrile state. increase in the long acting insulin. Levophed titrated off 06/06: Noted to have subcutaneous air and his stat CXR showed no pneumothorax, vent changes per CCM. Hypokalemia which was repleted. Right upper extremity Doppler ultrasound obtained due to swelling but shows no DVT 06/07: No acute events reported overnight. Sedation increased today due to tachypnea. 06/08: No acute events overnight, will order CA 199, hospital records reviewed, decreasing FiO2. Reglan started due to increased to feeding residuals and placed back on Levophed. 06/09: This morning RN reported patient had a cuff leak and was tachycardic/hypoxic. RT amended cuff leak and sedation was increased which helped the patient. Levophed transition as needed for adequate sedation. 06/10: Hyperkalemia today, given Kayexalate. Noted peaked T waves on bedside monitor and ECG obtained. Increasing free water flush due to slight hypernatremia. Updated son over the phone of current events and told him that family to discuss goals of care as trach likely needed if they would like to continue with treatments. Son stated that him and his sister humza were discussing this. He asked about a Passy-Keisha valve however informed that that would be considered after patient able to be sustained on room air. Son stated they would like to have a Zoom meeting with family in [place] along with sister humza next week. Hospitalist Physical - Physical exam Narrative exam: - EENT Eyes: Present: PERRL, EOM intact ENT: clear oral mucosa, dentition normal - Neck Neck: Present: normal ROM - Respiratory Respiratory effort: normal Respiratory: bilateral: diminished - Cardiovascular Rhythm: regular Heart Sounds: Present: S1 & S2. Absent: systolic murmur, diastolic murmur - Extremities Extremities: no ischemia, pulses intact, pulses symmetrical, normal temperature, normal color Extremity abnormal: edema (Right upper extremity), other Peripheral Pulses: within normal limits - Abdominal General gastrointestinal: soft, non-tender, non-distended, normal bowel sounds - Integumentary Integumentary: Present: warm (Subcutaneous air chest/neck), dry - Psychiatric Psychiatric: other (Sedated) - Neurologic Neurologic: other (Intact cough/gag, pupils equal round reactive) - Allied Health Allied health notes reviewed: nursing, RT, social work - Constitutional Vitals: Temp Pulse Resp BP Pulse Ox 98.2 F 69 23 115/72 95 06/10/21 08:00 06/10/21 13:30 06/10/21 13:30 06/10/21 13:30 06/10/21 13:30 General appearance: Present: no acute distress, other (Intubated and Sedated) Results - Labs CBC & Chem 7: 06/10/21 08:19 06/10/21 08:19 Labs: Laboratory Last Values WBC 15.9 K/mm3 (4.5-11.0) H 06/10/21 08:19 RBC 3.17 M/mm3 (3.65-5.03) L 06/10/21 08:19 Hgb 10.0 gm/dl (10.1-14.3) L 06/10/21 08:19 Hct 32.0 % (30.3-42.9) 06/10/21 08:19 MCV 101 fl (79-97) H 06/10/21 08:19 MCH 32 pg (28-32) 06/10/21 08:19 MCHC 31 % (30-34) 06/10/21 08:19 RDW 24.6 % (13.2-15.2) H 06/10/21 08:19 Plt Count 146 K/mm3 (140-440) 06/10/21 08:19 Lymph % (Auto) 12.8 % (13.4-35.0) L 06/02/21 08:59 Irwin % (Auto) 1.0 % (0.0-7.3) 06/02/21 08:59 Eos % (Auto) 10.2 % (0.0-4.3) H 06/02/21 08:59 Baso % (Auto) 0.5 % (0.0-1.8) 06/02/21 08:59 Lymph # (Auto) 0.6 K/mm3 (1.2-5.4) L 06/02/21 08:59 Irwin # (Auto) 0.0 K/mm3 (0.0-0.8) 06/02/21 08:59 Eos # (Auto) 0.5 K/mm3 (0.0-0.4) H 06/02/21 08:59 Baso # (Auto) 0.0 K/mm3 (0.0-0.1) 06/02/21 08:59 Add Manual Diff Complete 05/12/21 04:08 Total Counted 200 05/12/21 04:08 Seg Neutrophils % 75.5 % (40.0-70.0) H 06/02/21 08:59 Seg Neuts % (Manual) 85.5 % (40.0-70.0) H 05/12/21 04:08 Band Neutrophils % 8.5 % 05/12/21 04:08 Lymphocytes % (Manual) 2.0 % (13.4-35.0) L 05/12/21 04:08 Monocytes % (Manual) 3.0 % (0.0-7.3) 05/12/21 04:08 Eosinophils % (Manual) 1.0 % (0.0-4.3) 05/12/21 04:08 Nucleated RBC % Not Reportable 05/12/21 04:08 Seg Neutrophils # 3.6 K/mm3 (1.8-7.7) 06/02/21 08:59 Seg Neutrophils # Man 19.5 K/mm3 (1.8-7.7) H 05/12/21 04:08 Band Neutrophils # 1.9 K/mm3 05/12/21 04:08 Lymphocytes # (Manual) 0.5 K/mm3 (1.2-5.4) L 05/12/21 04:08 Abs React Lymphs (Man) 0.0 K/mm3 05/12/21 04:08 Monocytes # (Manual) 0.7 K/mm3 (0.0-0.8) 05/12/21 04:08 Eosinophils # (Manual) 0.2 K/mm3 (0.0-0.4) 05/12/21 04:08 Basophils # (Manual) 0.0 K/mm3 (0.0-0.1) 05/12/21 04:08 Metamyelocytes # 0.0 K/mm3 05/12/21 04:08 Myelocytes # 0.0 K/mm3 05/12/21 04:08 Promyelocytes # 0.0 K/mm3 05/12/21 04:08 Blast Cells # 0.0 K/mm3 05/12/21 04:08 WBC Morphology Not Reportable 05/12/21 04:08 Hypersegmented Neuts Not Reportable 05/12/21 04:08 Hyposegmented Neuts Not Reportable 05/12/21 04:08 Hypogranular Neuts Not Reportable 05/12/21 04:08 Smudge Cells Not Reportable 05/12/21 04:08 Toxic Granulation Not Reportable 05/12/21 04:08 Toxic Vacuolation Not Reportable 05/12/21 04:08 Dohle Bodies Not Reportable 05/12/21 04:08 Pelger-Huet Anomaly Not Reportable 05/12/21 04:08 Elizabeth Rods Not Reportable 05/12/21 04:08 Platelet Estimate Consistent w auto 05/12/21 04:08 Clumped Platelets Not Reportable 05/12/21 04:08 Plt Clumps, EDTA Not Reportable 05/12/21 04:08 Large Platelets Not Reportable 05/12/21 04:08 Giant Platelets Not Reportable 05/12/21 04:08 Platelet Satelliting Not Reportable 05/12/21 04:08 Plt Morphology Comment Not Reportable 05/12/21 04:08 RBC Morphology Not Reportable 05/12/21 04:08 Dimorphic RBCs Not Reportable 05/12/21 04:08 Polychromasia Not Reportable 05/12/21 04:08 Hypochromasia Not Reportable 05/12/21 04:08 Poikilocytosis Not Reportable 05/12/21 04:08 Anisocytosis 1+ 05/12/21 04:08 Microcytosis Not Reportable 05/12/21 04:08 Macrocytosis Not Reportable 05/12/21 04:08 Spherocytes Not Reportable 05/12/21 04:08 Pappenheimer Bodies Not Reportable 05/12/21 04:08 Sickle Cells Not Reportable 05/12/21 04:08 Target Cells Not Reportable 05/12/21 04:08 Tear Drop Cells Not Reportable 05/12/21 04:08 Ovalocytes Not Reportable 05/12/21 04:08 Helmet Cells Not Reportable 05/12/21 04:08 Sibley-Arrey Bodies Not Reportable 05/12/21 04:08 [place] Rings Not Reportable 05/12/21 04:08 Spurger Cells Not Reportable 05/12/21 04:08 Bite Cells Not Reportable 05/12/21 04:08 Crenated Cell Not Reportable 05/12/21 04:08 Elliptocytes Not Reportable 05/12/21 04:08 Acanthocytes (Spur) Not Reportable 05/12/21 04:08 Rouleaux Not Reportable 05/12/21 04:08 Hemoglobin C Crystals Not Reportable 05/12/21 04:08 Schistocytes Not Reportable 05/12/21 04:08 Malaria parasites Not Reportable 05/12/21 04:08 Tahir Bodies Not Reportable 05/12/21 04:08 Hem Pathologist Commnt No 05/12/21 04:08 PT 15.9 Sec. (12.2-14.9) H 06/05/21 06:00 INR 1.15 (0.87-1.13) H 06/05/21 06:00 APTT 37.1 Sec. (24.2-36.6) H 06/05/21 06:00 D-Dimer 1938.43 ng/mlDDU (0-234) H 06/07/21 04:36 ABG pH 7.363 (7.320-7.450) 06/09/21 02:45 POC ABG pCO2 56.0 mmHg (32.0-48.0) H 06/09/21 02:45 ABG pCO2 55.5 mm Hg 06/07/21 10:50 POC ABG pO2 54.3 mmHg (83-108) L 06/09/21 02:45 ABG pO2 66.6 mm Hg (80.0-90.0) L 06/07/21 10:50 POC ABG HCO3 31.1 06/09/21 02:45 ABG HCO3 35.7 mmol/L (20.0-26.0) H 06/07/21 10:50 ABG O2 Saturation 87.2 (0-100) 06/09/21 02:45 ABG O2 Content 8.3 (0.0-44) 06/07/21 10:50 POC ABG Base Excess 4.6 06/09/21 02:45 ABG Base Excess 10.3 mmol/L (-2.0-3.0) H 06/07/21 10:50 ABG Hemoglobin 11.1 (12.0-17.5) L 06/09/21 02:45 ABG Oxyhemoglobin 85.6 (94-98) L 06/09/21 02:45 ABG Carboxyhemoglobin 2.3 % (0.0-5.0) 06/07/21 10:50 ABG Methemoglobin 0.2 (0.0-1.5) 06/09/21 02:45 ABG Sodium 141.5 mmol/L (136.0-145.0) 06/09/21 02:45 ABG Potassium 3.9 mmol/L (3.40-4.50) 06/09/21 02:45 ABG Chloride 102.0 mmol/L (98-107) 06/09/21 02:45 ABG Glucose 191 mg/dL (65-95) H 06/09/21 02:45 Oxyhemoglobin 94.7 % (95.0-99.0) L 06/07/21 10:50 Carboxyhemoglobin 1.6 (0.5-1.5) H 06/09/21 02:45 FiO2 80 % 06/07/21 10:50 FiO2 % 75.0 06/09/21 02:45 Sodium 147 mmol/L (137-145) H 06/10/21 08:19 Potassium 5.1 mmol/L (3.6-5.0) H D 06/10/21 08:19 Chloride 105.0 mmol/L (98-107) 06/10/21 08:19 Carbon Dioxide 31 mmol/L (22-30) H 06/10/21 08:19 Anion Gap 16 mmol/L 06/10/21 08:19 BUN 43 mg/dL (7-17) H 06/10/21 08:19 Creatinine 0.5 mg/dL (0.6-1.2) L 06/10/21 08:19 Estimated GFR > 60 ml/min 06/10/21 08:19 BUN/Creatinine Ratio 86 % 06/10/21 08:19 Glucose 228 mg/dL (65-100) H 06/10/21 08:19 POC Glucose 196 mg/dL (70-105) H 06/10/21 11:25 Hemoglobin A1c 5.2 % (4-6) 05/12/21 04:08 Lactic Acid 3.30 mmol/L (0.7-2.0) H* 05/12/21 Unknown Calcium 8.4 mg/dL (8.4-10.2) 06/10/21 08:19 Phosphorus 5.20 mg/dL (2.5-4.5) H 06/10/21 08:19 Magnesium 2.20 mg/dL (1.7-2.3) 06/10/21 08:19 Ferritin 1287.0 ng/mL (10.0-200.0) H 06/07/21 04:36 Total Bilirubin 0.80 mg/dL (0.1-1.2) 06/06/21 05:26 Direct Bilirubin 1.6 mg/dL (0-0.2) H 05/23/21 10:15 Indirect Bilirubin 0.7 mg/dL 05/23/21 10:15 AST 25 units/L (5-40) 06/06/21 05:26 ALT 42 units/L (7-56) 06/06/21 05:26 Alkaline Phosphatase 207 units/L (35-129) H 06/06/21 05:26 Lactate Dehydrogenase 270 units/L (91-180) H 06/07/21 04:36 C-Reactive Protein 26.70 mg/dL (0.00-1.30) H 06/07/21 04:36 NT-Pro-B Natriuret Pep 2326 pg/mL (0-900) H 06/02/21 22:00 Total Protein 5.5 g/dL (6.3-8.2) L 06/06/21 05:26 Albumin 2.0 g/dL (3.9-5) L 06/06/21 05:26 Albumin/Globulin Ratio 0.6 % 06/06/21 05:26 Triglycerides 95 mg/dL (2-149) 06/07/21 04:36 Lipase 3 units/L (13-60) L 05/11/21 05:43 Arterial Blood Glucose 191 mg/dL (65-95) H 06/09/21 02:45 Arterial Blood Ionized Calcium 4.4 mg/dL (4.6-5.3) L 06/09/21 02:45 Urine Color Deisi (Yellow) 05/11/21 11:18 Urine Turbidity Clear (Clear) 05/11/21 11:18 Urine pH 6.0 (5.0-7.0) 05/11/21 11:18 Ur Specific [place] 1.035 (1.003-1.030) H 05/11/21 11:18 Urine Protein 100 mg/dl mg/dL (Negative) 05/11/21 11:18 Urine Glucose (UA) Neg mg/dL (Negative) 05/11/21 11:18 Urine Ketones Neg mg/dL (Negative) 05/11/21 11:18 Urine Blood Neg (Negative) 05/11/21 11:18 Urine Nitrite Neg (Negative) 05/11/21 11:18 Urine Bilirubin Neg (Negative) 05/11/21 11:18 Urine Urobilinogen < 2.0 mg/dL (<2.0) 05/11/21 11:18 Ur Leukocyte Esterase Neg (Negative) 05/11/21 11:18 Urine WBC (Auto) 2.0 /HPF (0.0-6.0) 05/11/21 11:18 Urine RBC (Auto) 1.0 /HPF (0.0-6.0) 05/11/21 11:18 Urine Mucus Few /HPF 05/11/21 11:18 Vancomycin Trough 25.3 ug/mL (5.0-20.0) H 05/14/21 15:20 Coronavirus (PCR) Positive (Negative) A 05/29/21 08:20 Hepatitis A IgM Ab Non-reactive (NonReactive) 05/12/21 12:30 Hep Bs Antigen Nonreactive (Negative) 05/12/21 12:30 Hep B Core IgM Ab Non-reactive (NonReactive) 05/12/21 12:30 Hepatitis C Antibody Non-reactive (NonReactive) 05/12/21 12:30 Almaraz/IV: Voiding Method Indwelling Catheter Active Medications - Current Medications Current Medications: Generic Name Dose Route Start Last Admin Trade Name Freq PRN Reason Stop Dose Admin Acetaminophen 650 mg 05/11/21 21:40 05/14/21 20:06 Acetaminophen 325 Mg Tab PO 650 mg Q4H PRN Administration Pain MILD(1-3)/Fever >100.5/WOODS Lipase/Protease/Amylase 1 each 05/22/21 16:30 Lipase 10,500/Protease 25,000/Amylase 43,750 (Units) Dr Baker FEEDTUBE PRN PRN For Clogged Feeding Tube Arformoterol Tartrate 15 mcg 05/12/21 08:00 06/10/21 07:48 Arformoterol 15 Mcg/2 Ml Nebu IH 15 mcg Q12HRT ABRAHAN Administration Ascorbic Acid 500 mg 06/02/21 22:00 06/10/21 09:02 Ascorbic Acid 500 Mg Tab PO 500 mg BID ABRAHAN Administration Budesonide 0.5 mg 05/12/21 08:00 06/10/21 07:48 Budesonide 0.5 Mg/2 Ml Nebu IH 0.5 mg Q12HRT ABRAHAN Administration Dextrose 50 ml 05/12/21 11:57 06/02/21 18:34 Dextrose 50% In Water (25gm) 50 Ml Syringe IV 50 ml Q30MIN PRN Administration Hypoglycemia Protocol Dicyclomine HCl 10 mg 05/23/21 14:00 06/10/21 13:49 Dicyclomine 10 Mg Cap PO 10 mg QID ABRAHAN Administration Fentanyl 50 mcg 06/02/21 05:20 Fentanyl 100 Mcg/2 Ml Inj IV Q10MIN PRN ANALGESIA Fondaparinux 2.5 mg 06/05/21 22:00 06/09/21 22:05 Fondaparinux 2.5 Mg/0.5 Ml Inj SUB-Q 2.5 mg QDAY@2200 ABRAHAN Administration Haloperidol Lactate 5 mg 05/19/21 15:00 06/01/21 21:04 Haloperidol Lactate 5 Mg/1 Ml Inj IV 5 mg Q8H PRN Administration Agitation Hydrocortisone Sodium Succinate 100 mg 06/04/21 14:00 06/10/21 13:49 Hydrocortisone Sod Succ 100 Mg/2 Ml Vial IV 100 mg Q8HR ABRAHAN Administration Hydrophilic Ointment 1 applic 06/02/21 17:44 Lip Therapy Vaseline TP Q2HR PRN Dry Lips NORepinephrine/NS 8 MG-250 ML 8 mg in 250 mls @ 3.75 mls/hr 06/02/21 06:00 06/10/21 13:49 Norepinephrine/Ns 8 Mg-250 Ml (Double Conc) IV 6 mcg/min TITRATE ABRAHAN 11.25 mls/hr Titration Protocol 2 MCG/MIN Propofol 1,000 mg in 100 mls @ 1.932 mls/hr 06/02/21 06:00 06/10/21 12:00 Diprivan 10 Mg/Ml IV 15 mcg/kg/min TITR ABRAHAN 5.796 mls/hr Titration Protocol 5 MCG/KG/MIN Fentanyl Citrate 2,000 mcg in 100 mls @ 3.22 mls/hr 06/02/21 06:00 06/10/21 06:18 Fentanyl Drip Premix IV 3 mcg/kg/hr TITR ABRAHAN 9.66 mls/hr Administration Protocol 1 MCG/KG/HR Insulin Glargine 10 units 06/08/21 22:00 06/09/21 22:06 Insulin Glargine 100 Units/Ml SUB-Q 10 units QHS ABRAHAN Administration Insulin Human Lispro 0 unit 05/17/21 12:00 06/10/21 12:00 Insulin Lispro 100 Unit/Ml SUB-Q 3 unit Q6HR ABRAHAN Administration Protocol Lansoprazole 30 mg 05/28/21 10:00 06/10/21 09:02 Lansoprazole 30 Mg Solutab FEEDTUBE 30 mg QDAY ABRAHAN Administration Metoclopramide HCl 10 mg 06/08/21 12:00 06/10/21 12:00 Metoclopramide 10 Mg/2 Ml Inj IV 10 mg Q6HR ABRAHAN Administration Multi-Ingred Cream/Lotion/Oil/Oint 1 applic 06/02/21 17:44 Mineral Oil/Petrolatum, White Ophth Oint 3.5 Gm OU Q4HR PRN Dry Eye(s) Ondansetron HCl 4 mg 05/11/21 21:40 05/15/21 09:57 Ondansetron 4 Mg/2 Ml Inj IV 4 mg Q8H PRN Administration Nausea And Vomiting Senna/Docusate Sodium 1 tab 06/02/21 22:00 06/10/21 09:03 Sennosides/Docusate Sodium 8.6/50 Mg Tab FEEDTUBE Not Given BID ABRAHAN Simple Syrup 15 ml 05/22/21 16:30 Simple Syrup 15 Ml FEEDTUBE PRN PRN Hypoglycemia Simple Syrup 30 ml 05/22/21 16:30 Simple Syrup 15 Ml FEEDTUBE PRN PRN Hypoglycemia Sodium Bicarbonate 325 mg 05/22/21 16:30 Sodium Bicarbonate 325 Mg Tab FEEDTUBE PRN PRN For Clogged Feeding Tube Sodium Chloride 10 ml 05/11/21 22:00 06/10/21 09:02 Sodium Chloride 0.9% 10 Ml Flush Syringe IV 10 ml BID ABRAHAN Administration Sodium Chloride 10 ml 05/11/21 21:40 05/23/21 21:00 Sodium Chloride 0.9% 10 Ml Flush Syringe IV 10 ml PRN PRN Administration LINE FLUSH Zinc Sulfate 220 mg 06/02/21 22:00 06/10/21 09:02 Zinc Sulfate 220 Mg Cap PO 220 mg BID ABRAHAN Administration Nutrition/Malnutrition Assess - Dietary Evaluation Nutrition/Malnutrition Findings: Nutrition Notes Start: 05/13/21 09:47 Freq: Status: Active Protocol: Document 06/09/21 12:03 MARITZA (Rec: 06/09/21 12:05 MARITZA [id number]) Nutrition Notes Initial or Follow up Brief Note Pertinent Medications Propofol at 9.66ml/hr ( provides 255 kcal) Subjective/Other Information Unable to reach RN via phone. Propofol rate increased sec to work of breathing and desaturation. Pt remains on vent support. Nutrition Intervention Follow-Up By: 06/11/21 Additional Comments F/U: TF tolerance, vent status , propofol
--- NOTE | 2021-06-10 17:07 | Progress Note ---
Assessment and Plan Septic shock possible hepatobiliary source Lactic acidosis h/o pulmonary fibrosis, Acute on chronic respiratory failure on home O2 of 2 L nasal cannula Transaminitis, biliary dilation, r/o cholangitis Hyperchloremia, metabolic acidosis, hypokalemia Hypoglycemia h/o pancreatic head cancer- chemoradiation therapy h/o Hypertension Thrombocytopenia - FiO2 reduced to 75% - continue current vent settings otherwise (keep peep at 8 re: barotrauma) - wean Levophed for target MAP > 65 mmHg - continue care as below otherwise; - prn diuresis - continue daily SAT and SBT assessment as tolerated - sedation prn for target RASS 0 to -1 - VAP bundle addressed - continue lung protective strategies - continue bronchodilators with pulmonary hygiene per RT - wean per pulmonary driven protocols otherwise - MRCP pending as she remains tenuous from a respiratory standpoint - continue anti-infective's; de-escalate per ID recommendations - accuchecks with glycemic control per SSI (While critically ill target blood glucose of 140-180 mg/dL; avoid hypoglycemia) - wean supplemental oxygen for target O2 sat's > 90% acutely - aspiration precautions - avoid nephrotoxins, renally dose all medications - prn analgesia per pain score - Maintenance of sleep-wake cycle, avoid delirium - G.I. & VTE prophylaxis - PT/OT/ROM exercises - mobility protocols for pressure ulcer prophylaxis - Monitor hemodynamics closely - continue other care per attending / other consultants - discharge planning ongoing concurrently COVID SPECIFIC INTERVENTIONS - Remdesivir as per ID/Pulmonary developed protocols (ordered) - continue systemic steroids for severe COVID-19 infection empirically (on Solucortef) - follow repeat COVID tests results - zinc and vitamin C supplementation (ordered) - Monitor inflammatory markers per facility protocol - ferritin, Ddimer, CRP - therapeutic anticoagulation per system Protocol based on d-dimer and clinical considerations (DVT prophylaxis) - Contact and airborne isolation .... Re-evaluate in am & prn CONDITION: CRITICAL PROGNOSIS: GUARDED CODE STATUS: FULL CODE The high probability of a clinically significant, sudden or life-threatening deterioration of the [respiratory, cardiovascular, GI & neurologic] system(s) required my full and direct attention, intervention and personal management. The aggregate critical care time was [32] minutes without overlap. Time includes spent on; [x] Data Review and interpretation [x] Patient assessment and monitoring of vital signs [x] Documentation [x] Medication orders and management Subjective Date of service: 06/10/21 Principal diagnosis: Septic shock; Pulm fibrosis; Hypoxemic resp failure; COVID- 19 infxn Interval history: Patient is seen today for: Septic shock; pulmonary fibrosis; Acute on chronic hypoxemic respiratory failure; Transaminitis; h/o pancreatic head cancer; HTN Seen and examined at bedside; 24hour events reviewed; nursing and respiratory care staff consulted; no adverse overnight events reported to me; resting in bed; remains on MVS; Levophed at 4 masha's/min; no new issues otherwise Objective Vital Signs - 12hr 06/10/21 06/10/21 06/10/21 05:15 05:30 05:45 Temperature Pulse Rate 66 87 73 Pulse Rate [ Bilateral Throughout] Pulse Rate [ From Monitor] Respiratory 25 H 25 H 25 H Rate Respiratory Rate [Bilateral Throughout] Blood Pressure 129/68 89/50 129/68 O2 Sat by Pulse 98 98 99 Oximetry 06/10/21 06/10/21 06/10/21 06:00 06:15 06:30 Temperature Pulse Rate 74 69 70 Pulse Rate [ Bilateral Throughout] Pulse Rate [ From Monitor] Respiratory 25 H 25 H 25 H Rate Respiratory Rate [Bilateral Throughout] Blood Pressure 126/71 115/71 118/73 O2 Sat by Pulse 99 99 100 Oximetry 06/10/21 06/10/21 06/10/21 06:45 07:00 07:15 Temperature Pulse Rate 73 73 72 Pulse Rate [ Bilateral Throughout] Pulse Rate [ From Monitor] Respiratory 25 H 25 H 25 H Rate Respiratory Rate [Bilateral Throughout] Blood Pressure 118/66 110/66 117/69 O2 Sat by Pulse 99 98 100 Oximetry 06/10/21 06/10/21 06/10/21 07:30 07:31 07:33 Temperature Pulse Rate 70 76 Pulse Rate [ Bilateral Throughout] Pulse Rate [ 76 From Monitor] Respiratory 25 H 25 H Rate Respiratory Rate [Bilateral Throughout] Blood Pressure 109/57 O2 Sat by Pulse 99 96 Oximetry 06/10/21 06/10/21 06/10/21 07:45 07:48 08:00 Temperature 98.2 F Pulse Rate 71 72 69 Pulse Rate [ 73 Bilateral Throughout] Pulse Rate [ From Monitor] Respiratory 25 H 25 H Rate Respiratory 25 H Rate [Bilateral Throughout] Blood Pressure 118/68 118/68 123/68 O2 Sat by Pulse 99 97 96 Oximetry 06/10/21 06/10/21 06/10/21 08:15 08:30 08:45 Temperature Pulse Rate 81 79 84 Pulse Rate [ Bilateral Throughout] Pulse Rate [ From Monitor] Respiratory 25 H 25 H 25 H Rate Respiratory Rate [Bilateral Throughout] Blood Pressure 111/61 112/63 88/49 O2 Sat by Pulse 97 97 96 Oximetry 06/10/21 06/10/21 06/10/21 09:00 09:15 09:30 Temperature Pulse Rate 94 H 66 66 Pulse Rate [ Bilateral Throughout] Pulse Rate [ From Monitor] Respiratory 24 25 H Rate Respiratory Rate [Bilateral Throughout] Blood Pressure 83/47 103/79 125/78 O2 Sat by Pulse 99 92 96 Oximetry 06/10/21 06/10/21 06/10/21 09:45 10:00 10:15 Temperature Pulse Rate 68 71 69 Pulse Rate [ Bilateral Throughout] Pulse Rate [ From Monitor] Respiratory H 20 25 H Rate Respiratory Rate [Bilateral Throughout] Blood Pressure 118/82 122/76 116/80 O2 Sat by Pulse 96 96 95 Oximetry 06/10/21 06/10/21 06/10/21 10:30 10:45 11:00 Temperature Pulse Rate 74 71 66 Pulse Rate [ Bilateral Throughout] Pulse Rate [ From Monitor] Respiratory 26 H 21 Rate Respiratory Rate [Bilateral Throughout] Blood Pressure 106/72 113/76 120/77 O2 Sat by Pulse 95 96 96 Oximetry 06/10/21 06/10/21 06/10/21 11:15 11:28 11:29 Temperature Pulse Rate 65 64 Pulse Rate [ Bilateral Throughout] Pulse Rate [ 64 From Monitor] Respiratory H 22 Rate Respiratory Rate [Bilateral Throughout] Blood Pressure 118/78 O2 Sat by Pulse 97 97 Oximetry 06/10/21 06/10/21 06/10/21 11:30 11:38 11:45 Temperature Pulse Rate 68 74 64 Pulse Rate [ Bilateral Throughout] Pulse Rate [ From Monitor] Respiratory 20 25 H Rate Respiratory Rate [Bilateral Throughout] Blood Pressure 115/79 118/78 129/82 O2 Sat by Pulse 93 94 95 Oximetry 06/10/21 06/10/21 06/10/21 12:00 12:15 12:30 Temperature 98.0 F Pulse Rate 64 74 72 Pulse Rate [ Bilateral Throughout] Pulse Rate [ From Monitor] Respiratory 25 H 27 H Rate Respiratory Rate [Bilateral Throughout] Blood Pressure 119/81 127/75 122/76 O2 Sat by Pulse 95 94 94 Oximetry 06/10/21 06/10/21 06/10/21 12:45 13:00 13:15 Temperature Pulse Rate 73 77 67 Pulse Rate [ Bilateral Throughout] Pulse Rate [ From Monitor] Respiratory H 25 H 21 Rate Respiratory Rate [Bilateral Throughout] Blood Pressure 128/75 119/76 128/75 O2 Sat by Pulse 93 92 95 Oximetry 06/10/21 06/10/21 06/10/21 13:30 13:45 14:00 Temperature Pulse Rate 69 74 77 Pulse Rate [ Bilateral Throughout] Pulse Rate [ From Monitor] Respiratory H 23 Rate Respiratory Rate [Bilateral Throughout] Blood Pressure 115/72 111/75 110/67 O2 Sat by Pulse 95 92 94 Oximetry 06/10/21 06/10/21 06/10/21 14:15 14:30 14:45 Temperature Pulse Rate 76 77 74 Pulse Rate [ Bilateral Throughout] Pulse Rate [ From Monitor] Respiratory 25 H Rate Respiratory Rate [Bilateral Throughout] Blood Pressure 100/66 101/66 101/62 O2 Sat by Pulse 96 95 95 Oximetry 06/10/21 06/10/21 06/10/21 15:00 15:15 15:30 Temperature Pulse Rate 80 77 72 Pulse Rate [ Bilateral Throughout] Pulse Rate [ From Monitor] Respiratory H 26 H 26 H Rate Respiratory Rate [Bilateral Throughout] Blood Pressure 101/62 99/61 90/60 O2 Sat by Pulse 96 95 97 Oximetry 06/10/21 06/10/21 06/10/21 15:45 16:00 16:15 Temperature Pulse Rate 76 76 57 L Pulse Rate [ Bilateral Throughout] Pulse Rate [ 77 From Monitor] Respiratory 21 Rate Respiratory Rate [Bilateral Throughout] Blood Pressure 95/63 102/54 119/76 O2 Sat by Pulse 97 96 97 Oximetry 06/10/21 16:30 Temperature Pulse Rate 82 Pulse Rate [ Bilateral Throughout] Pulse Rate [ From Monitor] Respiratory 25 H Rate Respiratory Rate [Bilateral Throughout] Blood Pressure 98/59 O2 Sat by Pulse 94 Oximetry Constitutional: appears uncomfortable, other (mildly increased respiratory effort at rest on MVS) Eyes: non-icteric ENT: oropharynx moist, other (ETT 24 cm JOSH) Neck: supple, no lymphadenopathy, no JVD Effort: mildly labored Ascultation: Bilateral: diminished breath sounds, rales (inspiratory, bases) Percussion: Bilateral: not dull Cardiovascular: regular rate and rhythm, other (S1,S2) Gastrointestinal: normoactive bowel sounds, soft, non-tender, non-distended (protuberant) Integumentary: other (SQ emphysema to upper chest) Extremities: no cyanosis, pulses normal, edema (1+ edema), other (right femoral CVL) Neurologic: normal mental status, non-focal exam (grossly), pupils equal and round, other (sedated) Psychiatric: other (unable to assess re: AMS) CBC and BMP: 06/10/21 08:19 06/10/21 14:20 ABG, PT/INR, D-dimer: ABG ABG pH 7.363 (7.320-7.450) 06/09/21 02:45 POC ABG pCO2 56.0 mmHg (32.0-48.0) H 06/09/21 02:45 ABG pCO2 55.5 mm Hg 06/07/21 10:50 POC ABG pO2 54.3 mmHg (83-108) L 06/09/21 02:45 ABG pO2 66.6 mm Hg (80.0-90.0) L 06/07/21 10:50 POC ABG HCO3 31.1 06/09/21 02:45 ABG O2 Saturation 87.2 (0-100) 06/09/21 02:45 PT/INR, D-dimer PT 15.9 Sec. (12.2-14.9) H 06/05/21 06:00 INR 1.15 (0.87-1.13) H 06/05/21 06:00 D-Dimer 1938.43 ng/mlDDU (0-234) H 06/07/21 04:36 Abnormal lab findings: Abnormal Labs 05/11/21 05/11/21 05/11/21 05:43 05:43 05:43 WBC RBC Hgb Hct MCV 98 H MCH RDW 17.7 H Plt Count Lymph % (Auto) 10.8 L Eos % (Auto) Lymph # (Auto) 0.6 L Eos # (Auto) Seg Neutrophils % 84.1 H Seg Neuts % (Manual) Lymphocytes % (Manual) Seg Neutrophils # Man Lymphocytes # (Manual) PT 16.0 H INR 1.16 H APTT D-Dimer ABG pH POC ABG pCO2 POC ABG pO2 ABG pO2 ABG HCO3 ABG O2 Saturation ABG Base Excess ABG Hemoglobin ABG Oxyhemoglobin ABG Sodium ABG Potassium ABG Chloride ABG Glucose Oxyhemoglobin Carboxyhemoglobin Sodium Potassium Chloride Carbon Dioxide 21 L BUN 4 L Creatinine 0.4 L Glucose POC Glucose Lactic Acid Calcium 8.3 L Phosphorus Magnesium Ferritin Total Bilirubin 2.10 H Direct Bilirubin 1.4 H AST 335 H ALT 57 H Alkaline Phosphatase 339 H Lactate Dehydrogenase C-Reactive Protein NT-Pro-B Natriuret Pep Total Protein Albumin 2.4 L Lipase 3 L Arterial Blood Glucose Arterial Blood Ionized Calcium Ur Specific [place] Vancomycin Trough Coronavirus (PCR) 05/11/21 05/11/21 05/12/21 11:18 12:28 04:08 WBC RBC Hgb Hct MCV MCH RDW Plt Count Lymph % (Auto) Eos % (Auto) Lymph # (Auto) Eos # (Auto) Seg Neutrophils % Seg Neuts % (Manual) Lymphocytes % (Manual) Seg Neutrophils # Man Lymphocytes # (Manual) PT INR APTT D-Dimer ABG pH POC ABG pCO2 POC ABG pO2 ABG pO2 ABG HCO3 ABG O2 Saturation ABG Base Excess ABG Hemoglobin ABG Oxyhemoglobin ABG Sodium ABG Potassium ABG Chloride ABG Glucose Oxyhemoglobin Carboxyhemoglobin Sodium Potassium Chloride Carbon Dioxide BUN Creatinine Glucose POC Glucose Lactic Acid 4.20 H* 4.50 H* Calcium Phosphorus Magnesium Ferritin Total Bilirubin Direct Bilirubin AST ALT Alkaline Phosphatase Lactate Dehydrogenase C-Reactive Protein NT-Pro-B Natriuret Pep Total Protein Albumin Lipase Arterial Blood Glucose Arterial Blood Ionized Calcium Ur Specific [place] 1.035 H Vancomycin Trough Coronavirus (PCR) 05/12/21 05/12/21 05/12/21 04:08 04:08 09:47 WBC 22.8 H RBC 3.39 L Hgb Hct MCV 98 H MCH RDW 17.7 H Plt Count Lymph % (Auto) Eos % (Auto) Lymph # (Auto) Eos # (Auto) Seg Neutrophils % Seg Neuts % (Manual) 85.5 H Lymphocytes % (Manual) 2.0 L Seg Neutrophils # Man 19.5 H Lymphocytes # (Manual) 0.5 L PT INR APTT D-Dimer ABG pH POC ABG pCO2 POC ABG pO2 ABG pO2 ABG HCO3 ABG O2 Saturation ABG Base Excess ABG Hemoglobin ABG Oxyhemoglobin ABG Sodium ABG Potassium ABG Chloride ABG Glucose Oxyhemoglobin Carboxyhemoglobin Sodium Potassium 3.3 L Chloride 108.9 H Carbon Dioxide 17 L BUN 4 L Creatinine 0.5 L Glucose 106 H POC Glucose Lactic Acid 2.60 H* Calcium 6.4 L D Phosphorus Magnesium Ferritin Total Bilirubin 2.10 H Direct Bilirubin AST 156 H ALT 61 H Alkaline Phosphatase 317 H Lactate Dehydrogenase C-Reactive Protein NT-Pro-B Natriuret Pep Total Protein 5.4 L D Albumin 1.8 L Lipase Arterial Blood Glucose Arterial Blood Ionized Calcium Ur Specific [place] Vancomycin Trough Coronavirus (PCR) 05/12/21 05/12/21 05/12/21 11:47 12:30 12:36 WBC RBC Hgb Hct MCV MCH RDW Plt Count Lymph % (Auto) Eos % (Auto) Lymph # (Auto) Eos # (Auto) Seg Neutrophils % Seg Neuts % (Manual) Lymphocytes % (Manual) Seg Neutrophils # Man Lymphocytes # (Manual) PT INR APTT D-Dimer ABG pH POC ABG pCO2 POC ABG pO2 ABG pO2 ABG HCO3 ABG O2 Saturation ABG Base Excess ABG Hemoglobin ABG Oxyhemoglobin ABG Sodium ABG Potassium ABG Chloride ABG Glucose Oxyhemoglobin Carboxyhemoglobin Sodium Potassium Chloride Carbon Dioxide BUN Creatinine Glucose POC Glucose 59 L 120 H Lactic Acid 2.50 H* Calcium Phosphorus Magnesium Ferritin Total Bilirubin Direct Bilirubin AST ALT Alkaline Phosphatase Lactate Dehydrogenase C-Reactive Protein NT-Pro-B Natriuret Pep Total Protein Albumin Lipase Arterial Blood Glucose Arterial Blood Ionized Calcium Ur Specific [place] Vancomycin Trough Coronavirus (PCR) 05/12/21 05/12/21 05/13/21 23:45 Unknown 04:00 WBC 19.8 H RBC 3.52 L Hgb Hct MCV 98 H MCH RDW 18.5 H Plt Count Lymph % (Auto) Eos % (Auto) Lymph # (Auto) Eos # (Auto) Seg Neutrophils % Seg Neuts % (Manual) Lymphocytes % (Manual) Seg Neutrophils # Man Lymphocytes # (Manual) PT INR APTT D-Dimer ABG pH POC ABG pCO2 POC ABG pO2 ABG pO2 ABG HCO3 ABG O2 Saturation ABG Base Excess ABG Hemoglobin ABG Oxyhemoglobin ABG Sodium ABG Potassium ABG Chloride ABG Glucose Oxyhemoglobin Carboxyhemoglobin Sodium Potassium Chloride Carbon Dioxide BUN Creatinine Glucose POC Glucose 119 H Lactic Acid 3.30 H* Calcium Phosphorus Magnesium Ferritin Total Bilirubin Direct Bilirubin AST ALT Alkaline Phosphatase Lactate Dehydrogenase C-Reactive Protein NT-Pro-B Natriuret Pep Total Protein Albumin Lipase Arterial Blood Glucose Arterial Blood Ionized Calcium Ur Specific [place] Vancomycin Trough Coronavirus (PCR) 05/13/21 05/13/21 05/13/21 04:00 05:42 12:19 WBC RBC Hgb Hct MCV MCH RDW Plt Count Lymph % (Auto) Eos % (Auto) Lymph # (Auto) Eos # (Auto) Seg Neutrophils % Seg Neuts % (Manual) Lymphocytes % (Manual) Seg Neutrophils # Man Lymphocytes # (Manual) PT INR APTT D-Dimer ABG pH POC ABG pCO2 POC ABG pO2 ABG pO2 ABG HCO3 ABG O2 Saturation ABG Base Excess ABG Hemoglobin ABG Oxyhemoglobin ABG Sodium ABG Potassium ABG Chloride ABG Glucose Oxyhemoglobin Carboxyhemoglobin Sodium Potassium 3.4 L Chloride 107.1 H Carbon Dioxide 19 L BUN 4 L Creatinine 0.4 L Glucose 157 H POC Glucose 143 H 110 H Lactic Acid Calcium 7.4 L D Phosphorus 1.60 L Magnesium 1.50 L Ferritin Total Bilirubin 1.40 H Direct Bilirubin AST 95 H ALT Alkaline Phosphatase 328 H Lactate Dehydrogenase C-Reactive Protein NT-Pro-B Natriuret Pep Total Protein 5.5 L Albumin 1.6 L Lipase Arterial Blood Glucose Arterial Blood Ionized Calcium Ur Specific [place] Vancomycin Trough Coronavirus (PCR) 05/14/21 05/14/21 05/14/21 06:15 06:15 10:25 WBC 11.7 H RBC 3.41 L Hgb Hct MCV 98 H MCH RDW 18.6 H Plt Count Lymph % (Auto) Eos % (Auto) Lymph # (Auto) Eos # (Auto) Seg Neutrophils % Seg Neuts % (Manual) Lymphocytes % (Manual) Seg Neutrophils # Man Lymphocytes # (Manual) PT INR APTT D-Dimer ABG pH POC ABG pCO2 POC ABG pO2 ABG pO2 76.0 L ABG HCO3 27.2 H ABG O2 Saturation ABG Base Excess ABG Hemoglobin 11.5 L ABG Oxyhemoglobin ABG Sodium ABG Potassium ABG Chloride ABG Glucose Oxyhemoglobin 94.4 L Carboxyhemoglobin Sodium Potassium 3.2 L Chloride Carbon Dioxide BUN 6 L Creatinine 0.5 L Glucose 103 H POC Glucose Lactic Acid Calcium 7.3 L Phosphorus 1.70 L Magnesium Ferritin Total Bilirubin Direct Bilirubin AST 66 H ALT Alkaline Phosphatase 295 H Lactate Dehydrogenase C-Reactive Protein NT-Pro-B Natriuret Pep Total Protein 5.3 L Albumin 1.8 L Lipase Arterial Blood Glucose Arterial Blood Ionized Calcium Ur Specific [place] Vancomycin Trough Coronavirus (PCR) 05/14/21 05/14/21 05/14/21 15:20 15:20 17:26 WBC RBC Hgb Hct MCV MCH RDW Plt Count Lymph % (Auto) Eos % (Auto) Lymph # (Auto) Eos # (Auto) Seg Neutrophils % Seg Neuts % (Manual) Lymphocytes % (Manual) Seg Neutrophils # Man Lymphocytes # (Manual) PT INR APTT D-Dimer ABG pH POC ABG pCO2 POC ABG pO2 ABG pO2 ABG HCO3 ABG O2 Saturation ABG Base Excess ABG Hemoglobin ABG Oxyhemoglobin ABG Sodium ABG Potassium ABG Chloride ABG Glucose Oxyhemoglobin Carboxyhemoglobin Sodium 146 H D Potassium Chloride 108.4 H Carbon Dioxide BUN 5 L Creatinine 0.5 L Glucose POC Glucose 63 L Lactic Acid Calcium 7.6 L Phosphorus Magnesium Ferritin Total Bilirubin Direct Bilirubin AST ALT Alkaline Phosphatase Lactate Dehydrogenase C-Reactive Protein NT-Pro-B Natriuret Pep Total Protein Albumin Lipase Arterial Blood Glucose Arterial Blood Ionized Calcium Ur Specific [place] Vancomycin Trough 25.3 H Coronavirus (PCR) 05/14/21 05/15/21 05/15/21 21:27 00:03 00:29 WBC RBC Hgb Hct MCV MCH RDW Plt Count Lymph % (Auto) Eos % (Auto) Lymph # (Auto) Eos # (Auto) Seg Neutrophils % Seg Neuts % (Manual) Lymphocytes % (Manual) Seg Neutrophils # Man Lymphocytes # (Manual) PT INR APTT D-Dimer ABG pH POC ABG pCO2 POC ABG pO2 ABG pO2 ABG HCO3 ABG O2 Saturation ABG Base Excess ABG Hemoglobin ABG Oxyhemoglobin ABG Sodium ABG Potassium ABG Chloride ABG Glucose Oxyhemoglobin Carboxyhemoglobin Sodium Potassium Chloride Carbon Dioxide BUN Creatinine Glucose POC Glucose 52 L 54 L 129 H Lactic Acid Calcium Phosphorus Magnesium Ferritin Total Bilirubin Direct Bilirubin AST ALT Alkaline Phosphatase Lactate Dehydrogenase C-Reactive Protein NT-Pro-B Natriuret Pep Total Protein Albumin Lipase Arterial Blood Glucose Arterial Blood Ionized Calcium Ur Specific [place] Vancomycin Trough Coronavirus (PCR) 12/21/21 12/21/21 12/21/21 04:45 04:45 11:58 WBC RBC 3.24 L Hgb Hct MCV 98 H MCH RDW 18.5 H Plt Count 122 L Lymph % (Auto) 7.4 L Eos % (Auto) Lymph # (Auto) 0.6 L Eos # (Auto) Seg Neutrophils % 81.2 H Seg Neuts % (Manual) Lymphocytes % (Manual) Seg Neutrophils # Man Lymphocytes # (Manual) PT INR APTT D-Dimer ABG pH POC ABG pCO2 POC ABG pO2 ABG pO2 ABG HCO3 ABG O2 Saturation ABG Base Excess ABG Hemoglobin ABG Oxyhemoglobin ABG Sodium ABG Potassium ABG Chloride ABG Glucose Oxyhemoglobin Carboxyhemoglobin Sodium 146 H Potassium 3.1 L Chloride 108.8 H Carbon Dioxide BUN 6 L Creatinine Glucose 121 H POC Glucose 68 L Lactic Acid Calcium 7.5 L Phosphorus 2.30 L D Magnesium Ferritin Total Bilirubin 1.90 H Direct Bilirubin AST 55 H ALT Alkaline Phosphatase 231 H Lactate Dehydrogenase C-Reactive Protein NT-Pro-B Natriuret Pep Total Protein 5.4 L Albumin 1.5 L Lipase Arterial Blood Glucose Arterial Blood Ionized Calcium Ur Specific [place] Vancomycin Trough Coronavirus (PCR) 05/15/21 05/16/21 05/16/21 13:50 00:06 00:43 WBC RBC Hgb Hct MCV MCH RDW Plt Count Lymph % (Auto) Eos % (Auto) Lymph # (Auto) Eos # (Auto) Seg Neutrophils % Seg Neuts % (Manual) Lymphocytes % (Manual) Seg Neutrophils # Man Lymphocytes # (Manual) PT INR APTT D-Dimer ABG pH POC ABG pCO2 POC ABG pO2 ABG pO2 ABG HCO3 ABG O2 Saturation ABG Base Excess ABG Hemoglobin ABG Oxyhemoglobin ABG Sodium ABG Potassium ABG Chloride ABG Glucose Oxyhemoglobin Carboxyhemoglobin Sodium Potassium Chloride Carbon Dioxide BUN Creatinine Glucose POC Glucose 147 H 54 L 116 H Lactic Acid Calcium Phosphorus Magnesium Ferritin Total Bilirubin Direct Bilirubin AST ALT Alkaline Phosphatase Lactate Dehydrogenase C-Reactive Protein NT-Pro-B Natriuret Pep Total Protein Albumin Lipase Arterial Blood Glucose Arterial Blood Ionized Calcium Ur Specific [place] Vancomycin Trough Coronavirus (PCR) 05/16/21 05/16/21 05/16/21 04:31 04:31 05:58 WBC RBC 3.12 L Hgb 9.8 L Hct MCV 98 H MCH RDW 18.2 H Plt Count 115 L Lymph % (Auto) Eos % (Auto) Lymph # (Auto) Eos # (Auto) Seg Neutrophils % Seg Neuts % (Manual) Lymphocytes % (Manual) Seg Neutrophils # Man Lymphocytes # (Manual) PT INR APTT D-Dimer ABG pH POC ABG pCO2 POC ABG pO2 ABG pO2 ABG HCO3 ABG O2 Saturation ABG Base Excess ABG Hemoglobin ABG Oxyhemoglobin ABG Sodium ABG Potassium ABG Chloride ABG Glucose Oxyhemoglobin Carboxyhemoglobin Sodium 146 H Potassium 3.2 L Chloride Carbon Dioxide BUN 5 L Creatinine 0.5 L Glucose POC Glucose 61 L Lactic Acid Calcium 7.2 L Phosphorus 2.30 L Magnesium Ferritin Total Bilirubin Direct Bilirubin AST ALT Alkaline Phosphatase Lactate Dehydrogenase C-Reactive Protein NT-Pro-B Natriuret Pep Total Protein Albumin Lipase Arterial Blood Glucose Arterial Blood Ionized Calcium Ur Specific [place] Vancomycin Trough Coronavirus (PCR) 05/16/21 05/16/21 05/17/21 08:11 23:42 04:15 WBC RBC Hgb Hct MCV MCH RDW Plt Count Lymph % (Auto) Eos % (Auto) Lymph # (Auto) Eos # (Auto) Seg Neutrophils % Seg Neuts % (Manual) Lymphocytes % (Manual) Seg Neutrophils # Man Lymphocytes # (Manual) PT INR APTT D-Dimer ABG pH POC ABG pCO2 POC ABG pO2 ABG pO2 ABG HCO3 ABG O2 Saturation ABG Base Excess ABG Hemoglobin ABG Oxyhemoglobin ABG Sodium ABG Potassium ABG Chloride ABG Glucose Oxyhemoglobin Carboxyhemoglobin Sodium Potassium Chloride Carbon Dioxide BUN Creatinine Glucose POC Glucose 58 L 200 H Lactic Acid Calcium Phosphorus Magnesium Ferritin Total Bilirubin 1.70 H Direct Bilirubin 1.5 H AST 43 H ALT Alkaline Phosphatase 196 H Lactate Dehydrogenase C-Reactive Protein NT-Pro-B Natriuret Pep Total Protein 5.4 L Albumin 1.6 L Lipase Arterial Blood Glucose Arterial Blood Ionized Calcium Ur Specific [place] Vancomycin Trough Coronavirus (PCR) 05/17/21 05/17/21 05/17/21 04:15 04:15 05:07 WBC RBC 3.26 L Hgb Hct MCV 98 H MCH RDW 18.9 H Plt Count 114 L Lymph % (Auto) Eos % (Auto) Lymph # (Auto) Eos # (Auto) Seg Neutrophils % Seg Neuts % (Manual) Lymphocytes % (Manual) Seg Neutrophils # Man Lymphocytes # (Manual) PT INR APTT D-Dimer ABG pH POC ABG pCO2 POC ABG pO2 ABG pO2 ABG HCO3 ABG O2 Saturation ABG Base Excess ABG Hemoglobin ABG Oxyhemoglobin ABG Sodium ABG Potassium ABG Chloride ABG Glucose Oxyhemoglobin Carboxyhemoglobin Sodium Potassium Chloride Carbon Dioxide 35 H BUN 5 L Creatinine Glucose 274 H POC Glucose 249 H Lactic Acid Calcium 7.7 L Phosphorus 1.50 L D Magnesium Ferritin Total Bilirubin Direct Bilirubin AST ALT Alkaline Phosphatase Lactate Dehydrogenase C-Reactive Protein NT-Pro-B Natriuret Pep Total Protein Albumin Lipase Arterial Blood Glucose Arterial Blood Ionized Calcium Ur Specific [place] Vancomycin Trough Coronavirus (PCR) 05/17/21 05/17/21 05/17/21 11:56 16:29 23:37 WBC RBC Hgb Hct MCV MCH RDW Plt Count Lymph % (Auto) Eos % (Auto) Lymph # (Auto) Eos # (Auto) Seg Neutrophils % Seg Neuts % (Manual) Lymphocytes % (Manual) Seg Neutrophils # Man Lymphocytes # (Manual) PT INR APTT D-Dimer ABG pH POC ABG pCO2 POC ABG pO2 ABG pO2 ABG HCO3 ABG O2 Saturation ABG Base Excess ABG Hemoglobin ABG Oxyhemoglobin ABG Sodium ABG Potassium ABG Chloride ABG Glucose Oxyhemoglobin Carboxyhemoglobin Sodium Potassium Chloride Carbon Dioxide BUN Creatinine Glucose POC Glucose 176 H 219 H 150 H Lactic Acid Calcium Phosphorus Magnesium Ferritin Total Bilirubin Direct Bilirubin AST ALT Alkaline Phosphatase Lactate Dehydrogenase C-Reactive Protein NT-Pro-B Natriuret Pep Total Protein Albumin Lipase Arterial Blood Glucose Arterial Blood Ionized Calcium Ur Specific [place] Vancomycin Trough Coronavirus (PCR) 05/18/21 05/18/21 05/18/21 04:00 05:22 09:00 WBC RBC 3.34 L Hgb Hct MCV MCH RDW 18.8 H Plt Count Lymph % (Auto) Eos % (Auto) Lymph # (Auto) Eos # (Auto) Seg Neutrophils % Seg Neuts % (Manual) Lymphocytes % (Manual) Seg Neutrophils # Man Lymphocytes # (Manual) PT INR APTT D-Dimer ABG pH POC ABG pCO2 POC ABG pO2 ABG pO2 ABG HCO3 ABG O2 Saturation ABG Base Excess ABG Hemoglobin ABG Oxyhemoglobin ABG Sodium ABG Potassium ABG Chloride ABG Glucose Oxyhemoglobin Carboxyhemoglobin Sodium Potassium 5.4 H D Chloride 97.5 L Carbon Dioxide 33 H BUN Creatinine 0.4 L Glucose 461 H POC Glucose 181 H Lactic Acid Calcium 7.2 L Phosphorus 5.00 H D Magnesium Ferritin Total Bilirubin Direct Bilirubin AST ALT Alkaline Phosphatase Lactate Dehydrogenase C-Reactive Protein NT-Pro-B Natriuret Pep Total Protein Albumin Lipase Arterial Blood Glucose Arterial Blood Ionized Calcium Ur Specific [place] Vancomycin Trough Coronavirus (PCR) 05/18/21 05/18/21 05/18/21 11:16 12:50 16:29 WBC RBC Hgb Hct MCV MCH RDW Plt Count Lymph % (Auto) Eos % (Auto) Lymph # (Auto) Eos # (Auto) Seg Neutrophils % Seg Neuts % (Manual) Lymphocytes % (Manual) Seg Neutrophils # Man Lymphocytes # (Manual) PT INR APTT D-Dimer ABG pH POC ABG pCO2 POC ABG pO2 ABG pO2 ABG HCO3 ABG O2 Saturation ABG Base Excess ABG Hemoglobin ABG Oxyhemoglobin ABG Sodium ABG Potassium ABG Chloride ABG Glucose Oxyhemoglobin Carboxyhemoglobin Sodium Potassium 3.4 L D Chloride Carbon Dioxide 36 H BUN 19 H Creatinine 0.4 L Glucose 231 H POC Glucose 168 H 196 H Lactic Acid Calcium 7.5 L Phosphorus 1.80 L D Magnesium Ferritin Total Bilirubin Direct Bilirubin AST ALT Alkaline Phosphatase Lactate Dehydrogenase C-Reactive Protein NT-Pro-B Natriuret Pep Total Protein Albumin Lipase Arterial Blood Glucose Arterial Blood Ionized Calcium Ur Specific [place] Vancomycin Trough Coronavirus (PCR) 05/19/21 05/19/21 05/19/21 00:05 04:08 05:07 WBC RBC Hgb Hct MCV MCH RDW Plt Count Lymph % (Auto) Eos % (Auto) Lymph # (Auto) Eos # (Auto) Seg Neutrophils % Seg Neuts % (Manual) Lymphocytes % (Manual) Seg Neutrophils # Man Lymphocytes # (Manual) PT INR APTT D-Dimer ABG pH POC ABG pCO2 POC ABG pO2 ABG pO2 ABG HCO3 ABG O2 Saturation ABG Base Excess ABG Hemoglobin ABG Oxyhemoglobin ABG Sodium ABG Potassium ABG Chloride ABG Glucose Oxyhemoglobin Carboxyhemoglobin Sodium 146 H Potassium Chloride Carbon Dioxide 35 H BUN 25 H Creatinine 0.4 L Glucose 218 H POC Glucose 164 H 203 H Lactic Acid Calcium 7.2 L Phosphorus Magnesium Ferritin Total Bilirubin Direct Bilirubin AST ALT Alkaline Phosphatase Lactate Dehydrogenase C-Reactive Protein NT-Pro-B Natriuret Pep Total Protein Albumin Lipase Arterial Blood Glucose Arterial Blood Ionized Calcium Ur Specific [place] Vancomycin Trough Coronavirus (PCR) 05/19/21 05/19/21 05/19/21 12:16 14:14 17:11 WBC RBC Hgb Hct MCV MCH RDW Plt Count Lymph % (Auto) Eos % (Auto) Lymph # (Auto) Eos # (Auto) Seg Neutrophils % Seg Neuts % (Manual) Lymphocytes % (Manual) Seg Neutrophils # Man Lymphocytes # (Manual) PT INR APTT D-Dimer ABG pH 7.482 H POC ABG pCO2 POC ABG pO2 ABG pO2 111.7 H ABG HCO3 31.4 H ABG O2 Saturation ABG Base Excess 7.2 H ABG Hemoglobin 11.1 L ABG Oxyhemoglobin ABG Sodium ABG Potassium ABG Chloride ABG Glucose Oxyhemoglobin Carboxyhemoglobin Sodium Potassium Chloride Carbon Dioxide BUN Creatinine Glucose POC Glucose 206 H 194 H Lactic Acid Calcium Phosphorus Magnesium Ferritin Total Bilirubin Direct Bilirubin AST ALT Alkaline Phosphatase Lactate Dehydrogenase C-Reactive Protein NT-Pro-B Natriuret Pep Total Protein Albumin Lipase Arterial Blood Glucose Arterial Blood Ionized Calcium Ur Specific [place] Vancomycin Trough Coronavirus (PCR) 05/20/21 05/20/21 05/20/21 00:01 04:30 06:09 WBC RBC Hgb Hct MCV MCH RDW Plt Count Lymph % (Auto) Eos % (Auto) Lymph # (Auto) Eos # (Auto) Seg Neutrophils % Seg Neuts % (Manual) Lymphocytes % (Manual) Seg Neutrophils # Man Lymphocytes # (Manual) PT INR APTT D-Dimer ABG pH POC ABG pCO2 POC ABG pO2 ABG pO2 ABG HCO3 ABG O2 Saturation ABG Base Excess ABG Hemoglobin ABG Oxyhemoglobin ABG Sodium ABG Potassium ABG Chloride ABG Glucose Oxyhemoglobin Carboxyhemoglobin Sodium Potassium 3.5 L Chloride Carbon Dioxide BUN 24 H Creatinine 0.3 L Glucose 254 H POC Glucose 209 H 210 H Lactic Acid Calcium 7.5 L Phosphorus 1.90 L D Magnesium Ferritin Total Bilirubin 1.60 H Direct Bilirubin AST 201 H ALT 170 H Alkaline Phosphatase 169 H Lactate Dehydrogenase C-Reactive Protein NT-Pro-B Natriuret Pep Total Protein 5.3 L Albumin 1.9 L Lipase Arterial Blood Glucose Arterial Blood Ionized Calcium Ur Specific [place] Vancomycin Trough Coronavirus (PCR) 05/20/21 05/20/21 05/20/21 11:41 16:47 22:21 WBC RBC Hgb Hct MCV MCH RDW Plt Count Lymph % (Auto) Eos % (Auto) Lymph # (Auto) Eos # (Auto) Seg Neutrophils % Seg Neuts % (Manual) Lymphocytes % (Manual) Seg Neutrophils # Man Lymphocytes # (Manual) PT INR APTT D-Dimer ABG pH POC ABG pCO2 POC ABG pO2 ABG pO2 ABG HCO3 ABG O2 Saturation ABG Base Excess ABG Hemoglobin ABG Oxyhemoglobin ABG Sodium ABG Potassium ABG Chloride ABG Glucose Oxyhemoglobin Carboxyhemoglobin Sodium Potassium Chloride Carbon Dioxide BUN Creatinine Glucose POC Glucose 158 H 232 H 211 H Lactic Acid Calcium Phosphorus Magnesium Ferritin Total Bilirubin Direct Bilirubin AST ALT Alkaline Phosphatase Lactate Dehydrogenase C-Reactive Protein NT-Pro-B Natriuret Pep Total Protein Albumin Lipase Arterial Blood Glucose Arterial Blood Ionized Calcium Ur Specific [place] Vancomycin Trough Coronavirus (PCR) 05/21/21 05/21/21 05/21/21 00:35 04:00 04:00 WBC RBC 3.28 L Hgb Hct MCV MCH RDW 18.7 H Plt Count 125 L Lymph % (Auto) Eos % (Auto) Lymph # (Auto) Eos # (Auto) Seg Neutrophils % Seg Neuts % (Manual) Lymphocytes % (Manual) Seg Neutrophils # Man Lymphocytes # (Manual) PT INR APTT D-Dimer ABG pH POC ABG pCO2 POC ABG pO2 ABG pO2 ABG HCO3 ABG O2 Saturation ABG Base Excess ABG Hemoglobin ABG Oxyhemoglobin ABG Sodium ABG Potassium ABG Chloride ABG Glucose Oxyhemoglobin Carboxyhemoglobin Sodium Potassium 5.1 H D Chloride 108.7 H Carbon Dioxide BUN 21 H Creatinine 0.2 L Glucose 242 H POC Glucose 230 H Lactic Acid Calcium 7.3 L Phosphorus Magnesium Ferritin Total Bilirubin Direct Bilirubin AST ALT Alkaline Phosphatase Lactate Dehydrogenase C-Reactive Protein NT-Pro-B Natriuret Pep Total Protein Albumin Lipase Arterial Blood Glucose Arterial Blood Ionized Calcium Ur Specific [place] Vancomycin Trough Coronavirus (PCR) 05/21/21 05/21/21 05/21/21 05:08 11:47 17:43 WBC RBC Hgb Hct MCV MCH RDW Plt Count Lymph % (Auto) Eos % (Auto) Lymph # (Auto) Eos # (Auto) Seg Neutrophils % Seg Neuts % (Manual) Lymphocytes % (Manual) Seg Neutrophils # Man Lymphocytes # (Manual) PT INR APTT D-Dimer ABG pH POC ABG pCO2 POC ABG pO2 ABG pO2 ABG HCO3 ABG O2 Saturation ABG Base Excess ABG Hemoglobin ABG Oxyhemoglobin ABG Sodium ABG Potassium ABG Chloride ABG Glucose Oxyhemoglobin Carboxyhemoglobin Sodium Potassium Chloride Carbon Dioxide BUN Creatinine Glucose POC Glucose 196 H 139 H 147 H Lactic Acid Calcium Phosphorus Magnesium Ferritin Total Bilirubin Direct Bilirubin AST ALT Alkaline Phosphatase Lactate Dehydrogenase C-Reactive Protein NT-Pro-B Natriuret Pep Total Protein Albumin Lipase Arterial Blood Glucose Arterial Blood Ionized Calcium Ur Specific [place] Vancomycin Trough Coronavirus (PCR) 05/21/21 05/21/21 05/22/21 17:57 23:32 04:16 WBC RBC Hgb Hct MCV MCH RDW Plt Count Lymph % (Auto) Eos % (Auto) Lymph # (Auto) Eos # (Auto) Seg Neutrophils % Seg Neuts % (Manual) Lymphocytes % (Manual) Seg Neutrophils # Man Lymphocytes # (Manual) PT INR APTT D-Dimer ABG pH POC ABG pCO2 POC ABG pO2 ABG pO2 ABG HCO3 ABG O2 Saturation ABG Base Excess ABG Hemoglobin ABG Oxyhemoglobin ABG Sodium ABG Potassium ABG Chloride ABG Glucose Oxyhemoglobin Carboxyhemoglobin Sodium Potassium 5.2 H Chloride Carbon Dioxide BUN 19 H Creatinine 0.2 L Glucose 154 H POC Glucose 218 H 185 H Lactic Acid Calcium 7.5 L Phosphorus Magnesium Ferritin Total Bilirubin 3.00 H Direct Bilirubin 2.3 H AST 437 H ALT 462 H Alkaline Phosphatase 186 H Lactate Dehydrogenase C-Reactive Protein NT-Pro-B Natriuret Pep Total Protein 5.5 L Albumin 1.9 L Lipase Arterial Blood Glucose Arterial Blood Ionized Calcium Ur Specific [place] Vancomycin Trough Coronavirus (PCR) 05/22/21 05/22/21 05/22/21 04:30 04:30 04:30 WBC RBC Hgb Hct MCV MCH RDW Plt Count Lymph % (Auto) Eos % (Auto) Lymph # (Auto) Eos # (Auto) Seg Neutrophils % Seg Neuts % (Manual) Lymphocytes % (Manual) Seg Neutrophils # Man Lymphocytes # (Manual) PT 19.5 H INR 1.49 H APTT D-Dimer ABG pH POC ABG pCO2 POC ABG pO2 ABG pO2 ABG HCO3 ABG O2 Saturation ABG Base Excess ABG Hemoglobin ABG Oxyhemoglobin ABG Sodium ABG Potassium ABG Chloride ABG Glucose Oxyhemoglobin Carboxyhemoglobin Sodium 134 L Potassium Chloride Carbon Dioxide BUN 19 H Creatinine 0.2 L Glucose 208 H POC Glucose Lactic Acid Calcium 7.2 L Phosphorus 2.40 L D Magnesium Ferritin Total Bilirubin 2.20 H Direct Bilirubin AST 350 H ALT 496 H Alkaline Phosphatase 167 H Lactate Dehydrogenase C-Reactive Protein NT-Pro-B Natriuret Pep Total Protein 4.8 L Albumin 1.7 L Lipase Arterial Blood Glucose Arterial Blood Ionized Calcium Ur Specific [place] Vancomycin Trough Coronavirus (PCR) 05/22/21 05/22/21 05/22/21 11:59 17:16 23:07 WBC RBC Hgb Hct MCV MCH RDW Plt Count Lymph % (Auto) Eos % (Auto) Lymph # (Auto) Eos # (Auto) Seg Neutrophils % Seg Neuts % (Manual) Lymphocytes % (Manual) Seg Neutrophils # Man Lymphocytes # (Manual) PT INR APTT D-Dimer ABG pH POC ABG pCO2 POC ABG pO2 ABG pO2 ABG HCO3 ABG O2 Saturation ABG Base Excess ABG Hemoglobin ABG Oxyhemoglobin ABG Sodium ABG Potassium ABG Chloride ABG Glucose Oxyhemoglobin Carboxyhemoglobin Sodium Potassium Chloride Carbon Dioxide BUN Creatinine Glucose POC Glucose 204 H 244 H 226 H Lactic Acid Calcium Phosphorus Magnesium Ferritin Total Bilirubin Direct Bilirubin AST ALT Alkaline Phosphatase Lactate Dehydrogenase C-Reactive Protein NT-Pro-B Natriuret Pep Total Protein Albumin Lipase Arterial Blood Glucose Arterial Blood Ionized Calcium Ur Specific [place] Vancomycin Trough Coronavirus (PCR) 05/23/21 05/23/21 05/23/21 05:09 10:15 10:15 WBC RBC Hgb Hct MCV MCH RDW Plt Count Lymph % (Auto) Eos % (Auto) Lymph # (Auto) Eos # (Auto) Seg Neutrophils % Seg Neuts % (Manual) Lymphocytes % (Manual) Seg Neutrophils # Man Lymphocytes # (Manual) PT 16.9 H INR 1.24 H APTT D-Dimer ABG pH POC ABG pCO2 POC ABG pO2 ABG pO2 ABG HCO3 ABG O2 Saturation ABG Base Excess ABG Hemoglobin ABG Oxyhemoglobin ABG Sodium ABG Potassium ABG Chloride ABG Glucose Oxyhemoglobin Carboxyhemoglobin Sodium 131 L Potassium Chloride 97.5 L Carbon Dioxide BUN Creatinine < 0.2 L Glucose 248 H POC Glucose 175 H Lactic Acid Calcium 7.4 L Phosphorus Magnesium 1.60 L Ferritin Total Bilirubin Direct Bilirubin AST ALT Alkaline Phosphatase Lactate Dehydrogenase C-Reactive Protein NT-Pro-B Natriuret Pep Total Protein Albumin Lipase Arterial Blood Glucose Arterial Blood Ionized Calcium Ur Specific [place] Vancomycin Trough Coronavirus (PCR) 05/23/21 05/23/21 05/24/21 10:15 21:46 04:16 WBC RBC Hgb Hct MCV MCH RDW Plt Count Lymph % (Auto) Eos % (Auto) Lymph # (Auto) Eos # (Auto) Seg Neutrophils % Seg Neuts % (Manual) Lymphocytes % (Manual) Seg Neutrophils # Man Lymphocytes # (Manual) PT INR APTT D-Dimer ABG pH POC ABG pCO2 POC ABG pO2 ABG pO2 ABG HCO3 ABG O2 Saturation ABG Base Excess ABG Hemoglobin ABG Oxyhemoglobin ABG Sodium ABG Potassium ABG Chloride ABG Glucose Oxyhemoglobin Carboxyhemoglobin Sodium 130 L Potassium 3.5 L Chloride 97.1 L Carbon Dioxide BUN Creatinine 0.2 L Glucose 235 H POC Glucose 190 H Lactic Acid Calcium 6.8 L Phosphorus Magnesium Ferritin Total Bilirubin 2.30 H Direct Bilirubin 1.6 H AST 161 H ALT 396 H Alkaline Phosphatase 186 H Lactate Dehydrogenase C-Reactive Protein NT-Pro-B Natriuret Pep Total Protein 4.7 L Albumin 2.0 L Lipase Arterial Blood Glucose Arterial Blood Ionized Calcium Ur Specific [place] Vancomycin Trough Coronavirus (PCR) 05/24/21 05/25/21 05/25/21 05:32 04:25 04:25 WBC 11.7 H RBC 3.28 L Hgb Hct MCV MCH RDW 19.9 H Plt Count Lymph % (Auto) Eos % (Auto) Lymph # (Auto) Eos # (Auto) Seg Neutrophils % Seg Neuts % (Manual) Lymphocytes % (Manual) Seg Neutrophils # Man Lymphocytes # (Manual) PT INR APTT D-Dimer ABG pH POC ABG pCO2 POC ABG pO2 ABG pO2 ABG HCO3 ABG O2 Saturation ABG Base Excess ABG Hemoglobin ABG Oxyhemoglobin ABG Sodium ABG Potassium ABG Chloride ABG Glucose Oxyhemoglobin Carboxyhemoglobin Sodium 135 L Potassium 3.4 L Chloride Carbon Dioxide BUN Creatinine 0.2 L Glucose 105 H POC Glucose 208 H Lactic Acid Calcium 7.6 L Phosphorus Magnesium Ferritin Total Bilirubin Direct Bilirubin AST ALT Alkaline Phosphatase Lactate Dehydrogenase C-Reactive Protein NT-Pro-B Natriuret Pep Total Protein Albumin Lipase Arterial Blood Glucose Arterial Blood Ionized Calcium Ur Specific [place] Vancomycin Trough Coronavirus (PCR) 05/26/21 05/26/21 05/26/21 11:37 16:57 20:59 WBC RBC Hgb Hct MCV MCH RDW Plt Count Lymph % (Auto) Eos % (Auto) Lymph # (Auto) Eos # (Auto) Seg Neutrophils % Seg Neuts % (Manual) Lymphocytes % (Manual) Seg Neutrophils # Man Lymphocytes # (Manual) PT INR APTT D-Dimer ABG pH POC ABG pCO2 POC ABG pO2 ABG pO2 ABG HCO3 ABG O2 Saturation ABG Base Excess ABG Hemoglobin ABG Oxyhemoglobin ABG Sodium ABG Potassium ABG Chloride ABG Glucose Oxyhemoglobin Carboxyhemoglobin Sodium Potassium Chloride Carbon Dioxide BUN Creatinine Glucose POC Glucose 136 H 214 H 137 H Lactic Acid Calcium Phosphorus Magnesium Ferritin Total Bilirubin Direct Bilirubin AST ALT Alkaline Phosphatase Lactate Dehydrogenase C-Reactive Protein NT-Pro-B Natriuret Pep Total Protein Albumin Lipase Arterial Blood Glucose Arterial Blood Ionized Calcium Ur Specific [place] Vancomycin Trough Coronavirus (PCR) 05/26/21 05/27/21 05/27/21 23:52 05:40 16:49 WBC RBC Hgb Hct MCV MCH RDW Plt Count Lymph % (Auto) Eos % (Auto) Lymph # (Auto) Eos # (Auto) Seg Neutrophils % Seg Neuts % (Manual) Lymphocytes % (Manual) Seg Neutrophils # Man Lymphocytes # (Manual) PT INR APTT D-Dimer ABG pH POC ABG pCO2 POC ABG pO2 ABG pO2 ABG HCO3 ABG O2 Saturation ABG Base Excess ABG Hemoglobin ABG Oxyhemoglobin ABG Sodium ABG Potassium ABG Chloride ABG Glucose Oxyhemoglobin Carboxyhemoglobin Sodium Potassium Chloride Carbon Dioxide BUN Creatinine Glucose POC Glucose 111 H 144 H 213 H Lactic Acid Calcium Phosphorus Magnesium Ferritin Total Bilirubin Direct Bilirubin AST ALT Alkaline Phosphatase Lactate Dehydrogenase C-Reactive Protein NT-Pro-B Natriuret Pep Total Protein Albumin Lipase Arterial Blood Glucose Arterial Blood Ionized Calcium Ur Specific [place] Vancomycin Trough Coronavirus (PCR) 05/27/21 05/27/21 05/28/21 21:07 23:57 11:59 WBC RBC Hgb Hct MCV MCH RDW Plt Count Lymph % (Auto) Eos % (Auto) Lymph # (Auto) Eos # (Auto) Seg Neutrophils % Seg Neuts % (Manual) Lymphocytes % (Manual) Seg Neutrophils # Man Lymphocytes # (Manual) PT INR APTT D-Dimer ABG pH POC ABG pCO2 POC ABG pO2 ABG pO2 ABG HCO3 ABG O2 Saturation ABG Base Excess ABG Hemoglobin ABG Oxyhemoglobin ABG Sodium ABG Potassium ABG Chloride ABG Glucose Oxyhemoglobin Carboxyhemoglobin Sodium Potassium Chloride Carbon Dioxide BUN Creatinine Glucose POC Glucose 135 H 157 H 130 H Lactic Acid Calcium Phosphorus Magnesium Ferritin Total Bilirubin Direct Bilirubin AST ALT Alkaline Phosphatase Lactate Dehydrogenase C-Reactive Protein NT-Pro-B Natriuret Pep Total Protein Albumin Lipase Arterial Blood Glucose Arterial Blood Ionized Calcium Ur Specific [place] Vancomycin Trough Coronavirus (PCR) 05/28/21 05/29/21 05/29/21 17:05 01:03 05:07 WBC RBC Hgb Hct MCV MCH RDW Plt Count Lymph % (Auto) Eos % (Auto) Lymph # (Auto) Eos # (Auto) Seg Neutrophils % Seg Neuts % (Manual) Lymphocytes % (Manual) Seg Neutrophils # Man Lymphocytes # (Manual) PT INR APTT D-Dimer ABG pH POC ABG pCO2 POC ABG pO2 ABG pO2 ABG HCO3 ABG O2 Saturation ABG Base Excess ABG Hemoglobin ABG Oxyhemoglobin ABG Sodium ABG Potassium ABG Chloride ABG Glucose Oxyhemoglobin Carboxyhemoglobin Sodium 148 H D Potassium 3.0 L Chloride 108.0 H Carbon Dioxide BUN Creatinine 0.2 L Glucose 155 H POC Glucose 207 H 204 H Lactic Acid Calcium 7.7 L Phosphorus Magnesium Ferritin Total Bilirubin Direct Bilirubin AST ALT Alkaline Phosphatase Lactate Dehydrogenase C-Reactive Protein NT-Pro-B Natriuret Pep Total Protein Albumin Lipase Arterial Blood Glucose Arterial Blood Ionized Calcium Ur Specific [place] Vancomycin Trough Coronavirus (PCR) 05/29/21 05/29/21 05/29/21 08:20 11:30 17:53 WBC RBC Hgb Hct MCV MCH RDW Plt Count Lymph % (Auto) Eos % (Auto) Lymph # (Auto) Eos # (Auto) Seg Neutrophils % Seg Neuts % (Manual) Lymphocytes % (Manual) Seg Neutrophils # Man Lymphocytes # (Manual) PT INR APTT D-Dimer ABG pH POC ABG pCO2 POC ABG pO2 ABG pO2 ABG HCO3 ABG O2 Saturation ABG Base Excess ABG Hemoglobin ABG Oxyhemoglobin ABG Sodium ABG Potassium ABG Chloride ABG Glucose Oxyhemoglobin Carboxyhemoglobin Sodium Potassium Chloride Carbon Dioxide BUN Creatinine Glucose POC Glucose 119 H 199 H Lactic Acid Calcium Phosphorus Magnesium Ferritin Total Bilirubin Direct Bilirubin AST ALT Alkaline Phosphatase Lactate Dehydrogenase C-Reactive Protein NT-Pro-B Natriuret Pep Total Protein Albumin Lipase Arterial Blood Glucose Arterial Blood Ionized Calcium Ur Specific [place] Vancomycin Trough Coronavirus (PCR) Positive A 05/30/21 05/30/21 05/30/21 00:37 05:54 06:50 WBC RBC Hgb Hct MCV MCH RDW Plt Count Lymph % (Auto) Eos % (Auto) Lymph # (Auto) Eos # (Auto) Seg Neutrophils % Seg Neuts % (Manual) Lymphocytes % (Manual) Seg Neutrophils # Man Lymphocytes # (Manual) PT INR APTT D-Dimer ABG pH POC ABG pCO2 POC ABG pO2 ABG pO2 ABG HCO3 ABG O2 Saturation ABG Base Excess ABG Hemoglobin ABG Oxyhemoglobin ABG Sodium ABG Potassium ABG Chloride ABG Glucose Oxyhemoglobin Carboxyhemoglobin Sodium Potassium Chloride Carbon Dioxide BUN Creatinine Glucose POC Glucose 117 H 56 L 157 H Lactic Acid Calcium Phosphorus Magnesium Ferritin Total Bilirubin Direct Bilirubin AST ALT Alkaline Phosphatase Lactate Dehydrogenase C-Reactive Protein NT-Pro-B Natriuret Pep Total Protein Albumin Lipase Arterial Blood Glucose Arterial Blood Ionized Calcium Ur Specific [place] Vancomycin Trough Coronavirus (PCR) 05/30/21 05/30/21 05/31/21 17:18 23:54 05:27 WBC RBC Hgb Hct MCV MCH RDW Plt Count Lymph % (Auto) Eos % (Auto) Lymph # (Auto) Eos # (Auto) Seg Neutrophils % Seg Neuts % (Manual) Lymphocytes % (Manual) Seg Neutrophils # Man Lymphocytes # (Manual) PT INR APTT D-Dimer ABG pH POC ABG pCO2 POC ABG pO2 ABG pO2 ABG HCO3 ABG O2 Saturation ABG Base Excess ABG Hemoglobin ABG Oxyhemoglobin ABG Sodium ABG Potassium ABG Chloride ABG Glucose Oxyhemoglobin Carboxyhemoglobin Sodium Potassium Chloride Carbon Dioxide BUN Creatinine Glucose POC Glucose 181 H 130 H 112 H Lactic Acid Calcium Phosphorus Magnesium Ferritin Total Bilirubin Direct Bilirubin AST ALT Alkaline Phosphatase Lactate Dehydrogenase C-Reactive Protein NT-Pro-B Natriuret Pep Total Protein Albumin Lipase Arterial Blood Glucose Arterial Blood Ionized Calcium Ur Specific [place] Vancomycin Trough Coronavirus (PCR) 05/31/21 05/31/21 05/31/21 12:06 17:35 23:56 WBC RBC Hgb Hct MCV MCH RDW Plt Count Lymph % (Auto) Eos % (Auto) Lymph # (Auto) Eos # (Auto) Seg Neutrophils % Seg Neuts % (Manual) Lymphocytes % (Manual) Seg Neutrophils # Man Lymphocytes # (Manual) PT INR APTT D-Dimer ABG pH POC ABG pCO2 POC ABG pO2 ABG pO2 ABG HCO3 ABG O2 Saturation ABG Base Excess ABG Hemoglobin ABG Oxyhemoglobin ABG Sodium ABG Potassium ABG Chloride ABG Glucose Oxyhemoglobin Carboxyhemoglobin Sodium Potassium Chloride Carbon Dioxide BUN Creatinine Glucose POC Glucose 170 H 109 H 136 H Lactic Acid Calcium Phosphorus Magnesium Ferritin Total Bilirubin Direct Bilirubin AST ALT Alkaline Phosphatase Lactate Dehydrogenase C-Reactive Protein NT-Pro-B Natriuret Pep Total Protein Albumin Lipase Arterial Blood Glucose Arterial Blood Ionized Calcium Ur Specific [place] Vancomycin Trough Coronavirus (PCR) 06/02/21 06/02/21 06/02/21 04:28 05:36 08:59 WBC RBC 3.31 L Hgb Hct MCV 100 H MCH RDW 24.7 H Plt Count Lymph % (Auto) 12.8 L Eos % (Auto) 10.2 H Lymph # (Auto) 0.6 L Eos # (Auto) 0.5 H Seg Neutrophils % 75.5 H Seg Neuts % (Manual) Lymphocytes % (Manual) Seg Neutrophils # Man Lymphocytes # (Manual) PT INR APTT D-Dimer ABG pH 7.258 L 7.251 L POC ABG pCO2 73.4 H 67.7 H POC ABG pO2 33.0 L 189.6 H ABG pO2 ABG HCO3 ABG O2 Saturation ABG Base Excess ABG Hemoglobin 11.8 L 11.8 L ABG Oxyhemoglobin 48.8 L ABG Sodium 146.7 H 146.3 H ABG Potassium 3.1 L ABG Chloride 109.0 H ABG Glucose 64 L Oxyhemoglobin Carboxyhemoglobin 1.6 H Sodium Potassium Chloride Carbon Dioxide BUN Creatinine Glucose POC Glucose Lactic Acid Calcium Phosphorus Magnesium Ferritin Total Bilirubin Direct Bilirubin AST ALT Alkaline Phosphatase Lactate Dehydrogenase C-Reactive Protein NT-Pro-B Natriuret Pep Total Protein Albumin Lipase Arterial Blood Glucose 64 L Arterial Blood Ionized Calcium Ur Specific [place] Vancomycin Trough Coronavirus (PCR) 06/02/21 06/02/21 06/02/21 08:59 11:39 14:50 WBC RBC Hgb Hct MCV MCH RDW Plt Count Lymph % (Auto) Eos % (Auto) Lymph # (Auto) Eos # (Auto) Seg Neutrophils % Seg Neuts % (Manual) Lymphocytes % (Manual) Seg Neutrophils # Man Lymphocytes # (Manual) PT INR APTT D-Dimer ABG pH 7.339 L POC ABG pCO2 POC ABG pO2 ABG pO2 91.4 H ABG HCO3 26.2 H ABG O2 Saturation ABG Base Excess ABG Hemoglobin 11.3 L ABG Oxyhemoglobin ABG Sodium ABG Potassium ABG Chloride ABG Glucose Oxyhemoglobin 93.7 L Carboxyhemoglobin Sodium 148 H Potassium 2.9 L* Chloride 111.1 H Carbon Dioxide BUN Creatinine 0.3 L Glucose 29 L* POC Glucose 140 H Lactic Acid Calcium 7.7 L Phosphorus Magnesium 1.50 L Ferritin Total Bilirubin Direct Bilirubin AST ALT Alkaline Phosphatase Lactate Dehydrogenase C-Reactive Protein NT-Pro-B Natriuret Pep Total Protein Albumin Lipase Arterial Blood Glucose Arterial Blood Ionized Calcium Ur Specific [place] Vancomycin Trough Coronavirus (PCR) 06/02/21 06/02/21 06/02/21 17:49 19:47 21:30 WBC RBC Hgb Hct MCV MCH RDW Plt Count Lymph % (Auto) Eos % (Auto) Lymph # (Auto) Eos # (Auto) Seg Neutrophils % Seg Neuts % (Manual) Lymphocytes % (Manual) Seg Neutrophils # Man Lymphocytes # (Manual) PT INR APTT D-Dimer ABG pH POC ABG pCO2 POC ABG pO2 ABG pO2 ABG HCO3 ABG O2 Saturation ABG Base Excess ABG Hemoglobin ABG Oxyhemoglobin ABG Sodium ABG Potassium ABG Chloride ABG Glucose Oxyhemoglobin Carboxyhemoglobin Sodium Potassium Chloride 109.6 H Carbon Dioxide 21 L D BUN Creatinine Glucose 123 H POC Glucose 67 L 117 H Lactic Acid Calcium 7.5 L Phosphorus 5.20 H D Magnesium 2.90 H Ferritin Total Bilirubin Direct Bilirubin AST ALT Alkaline Phosphatase Lactate Dehydrogenase C-Reactive Protein NT-Pro-B Natriuret Pep Total Protein Albumin Lipase Arterial Blood Glucose Arterial Blood Ionized Calcium Ur Specific [place] Vancomycin Trough Coronavirus (PCR) 06/02/21 06/02/21 06/02/21 21:30 22:00 23:10 WBC RBC Hgb Hct MCV MCH RDW Plt Count Lymph % (Auto) Eos % (Auto) Lymph # (Auto) Eos # (Auto) Seg Neutrophils % Seg Neuts % (Manual) Lymphocytes % (Manual) Seg Neutrophils # Man Lymphocytes # (Manual) PT INR APTT D-Dimer ABG pH POC ABG pCO2 POC ABG pO2 ABG pO2 ABG HCO3 ABG O2 Saturation ABG Base Excess ABG Hemoglobin ABG Oxyhemoglobin ABG Sodium ABG Potassium ABG Chloride ABG Glucose Oxyhemoglobin Carboxyhemoglobin Sodium 147 H Potassium Chloride 111.7 H Carbon Dioxide BUN Creatinine Glucose 105 H POC Glucose 122 H Lactic Acid Calcium 7.5 L Phosphorus Magnesium Ferritin Total Bilirubin Direct Bilirubin AST 74 H ALT 96 H Alkaline Phosphatase 207 H Lactate Dehydrogenase C-Reactive Protein NT-Pro-B Natriuret Pep 2326 H Total Protein 5.0 L Albumin 2.0 L Lipase Arterial Blood Glucose Arterial Blood Ionized Calcium Ur Specific [place] Vancomycin Trough Coronavirus (PCR) 06/03/21 06/03/21 06/03/21 04:45 04:45 04:45 WBC 13.6 H RBC 3.44 L Hgb Hct MCV 102 H MCH RDW 25.4 H Plt Count Lymph % (Auto) Eos % (Auto) Lymph # (Auto) Eos # (Auto) Seg Neutrophils % Seg Neuts % (Manual) Lymphocytes % (Manual) Seg Neutrophils # Man Lymphocytes # (Manual) PT INR APTT D-Dimer ABG pH POC ABG pCO2 POC ABG pO2 ABG pO2 ABG HCO3 ABG O2 Saturation ABG Base Excess ABG Hemoglobin ABG Oxyhemoglobin ABG Sodium ABG Potassium ABG Chloride ABG Glucose Oxyhemoglobin Carboxyhemoglobin Sodium Potassium Chloride Carbon Dioxide BUN Creatinine Glucose 151 H POC Glucose Lactic Acid Calcium 7.6 L Phosphorus 6.70 H D Magnesium Ferritin Total Bilirubin Direct Bilirubin AST 68 H ALT 103 H Alkaline Phosphatase 226 H Lactate Dehydrogenase C-Reactive Protein NT-Pro-B Natriuret Pep Total Protein 6.0 L Albumin 2.0 L Lipase Arterial Blood Glucose Arterial Blood Ionized Calcium Ur Specific [place] Vancomycin Trough Coronavirus (PCR) 06/03/21 06/03/21 06/03/21 05:02 10:00 11:46 WBC RBC Hgb Hct MCV MCH RDW Plt Count Lymph % (Auto) Eos % (Auto) Lymph # (Auto) Eos # (Auto) Seg Neutrophils % Seg Neuts % (Manual) Lymphocytes % (Manual) Seg Neutrophils # Man Lymphocytes # (Manual) PT INR APTT D-Dimer ABG pH 7.312 L POC ABG pCO2 POC ABG pO2 ABG pO2 68.5 L ABG HCO3 ABG O2 Saturation 93.0 L ABG Base Excess ABG Hemoglobin 11.5 L ABG Oxyhemoglobin ABG Sodium ABG Potassium ABG Chloride ABG Glucose Oxyhemoglobin 90.1 L Carboxyhemoglobin Sodium Potassium Chloride Carbon Dioxide BUN Creatinine Glucose POC Glucose 139 H 150 H Lactic Acid Calcium Phosphorus Magnesium Ferritin Total Bilirubin Direct Bilirubin AST ALT Alkaline Phosphatase Lactate Dehydrogenase C-Reactive Protein NT-Pro-B Natriuret Pep Total Protein Albumin Lipase Arterial Blood Glucose Arterial Blood Ionized Calcium Ur Specific [place] Vancomycin Trough Coronavirus (PCR) 06/03/21 06/03/21 06/04/21 17:19 23:01 04:00 WBC RBC 2.99 L Hgb 9.7 L Hct 30.0 L MCV 101 H MCH 33 H RDW 25.3 H Plt Count Lymph % (Auto) Eos % (Auto) Lymph # (Auto) Eos # (Auto) Seg Neutrophils % Seg Neuts % (Manual) Lymphocytes % (Manual) Seg Neutrophils # Man Lymphocytes # (Manual) PT INR APTT D-Dimer ABG pH POC ABG pCO2 POC ABG pO2 ABG pO2 ABG HCO3 ABG O2 Saturation ABG Base Excess ABG Hemoglobin ABG Oxyhemoglobin ABG Sodium ABG Potassium ABG Chloride ABG Glucose Oxyhemoglobin Carboxyhemoglobin Sodium Potassium Chloride Carbon Dioxide BUN Creatinine Glucose POC Glucose 135 H 164 H Lactic Acid Calcium Phosphorus Magnesium Ferritin Total Bilirubin Direct Bilirubin AST ALT Alkaline Phosphatase Lactate Dehydrogenase C-Reactive Protein NT-Pro-B Natriuret Pep Total Protein Albumin Lipase Arterial Blood Glucose Arterial Blood Ionized Calcium Ur Specific [place] Vancomycin Trough Coronavirus (PCR) 06/04/21 06/04/21 06/04/21 04:40 05:02 10:00 WBC RBC Hgb Hct MCV MCH RDW Plt Count Lymph % (Auto) Eos % (Auto) Lymph # (Auto) Eos # (Auto) Seg Neutrophils % Seg Neuts % (Manual) Lymphocytes % (Manual) Seg Neutrophils # Man Lymphocytes # (Manual) PT INR APTT D-Dimer ABG pH POC ABG pCO2 52.2 H POC ABG pO2 82.9 L ABG pO2 ABG HCO3 ABG O2 Saturation ABG Base Excess ABG Hemoglobin ABG Oxyhemoglobin ABG Sodium 135.4 L ABG Potassium ABG Chloride ABG Glucose 163 H Oxyhemoglobin Carboxyhemoglobin 1.7 H Sodium Potassium Chloride Carbon Dioxide BUN 19 H Creatinine 0.5 L Glucose 150 H POC Glucose 137 H Lactic Acid Calcium 8.0 L Phosphorus Magnesium Ferritin Total Bilirubin Direct Bilirubin AST ALT 70 H Alkaline Phosphatase 204 H Lactate Dehydrogenase C-Reactive Protein NT-Pro-B Natriuret Pep Total Protein 5.7 L Albumin 1.8 L Lipase Arterial Blood Glucose 163 H Arterial Blood Ionized Calcium Ur Specific [place] Vancomycin Trough Coronavirus (PCR) 06/04/21 06/04/21 06/04/21 12:09 17:43 17:49 WBC RBC Hgb Hct MCV MCH RDW Plt Count Lymph % (Auto) Eos % (Auto) Lymph # (Auto) Eos # (Auto) Seg Neutrophils % Seg Neuts % (Manual) Lymphocytes % (Manual) Seg Neutrophils # Man Lymphocytes # (Manual) PT INR APTT D-Dimer ABG pH POC ABG pCO2 POC ABG pO2 66.6 L ABG pO2 ABG HCO3 ABG O2 Saturation ABG Base Excess ABG Hemoglobin 11.2 L ABG Oxyhemoglobin 91.9 L ABG Sodium 134.9 L ABG Potassium ABG Chloride 97.0 L ABG Glucose 181 H Oxyhemoglobin Carboxyhemoglobin Sodium Potassium Chloride Carbon Dioxide BUN Creatinine Glucose POC Glucose 160 H 170 H Lactic Acid Calcium Phosphorus Magnesium Ferritin Total Bilirubin Direct Bilirubin AST ALT Alkaline Phosphatase Lactate Dehydrogenase C-Reactive Protein NT-Pro-B Natriuret Pep Total Protein Albumin Lipase Arterial Blood Glucose 181 H Arterial Blood Ionized Calcium Ur Specific [place] Vancomycin Trough Coronavirus (PCR) 06/04/21 06/05/21 06/05/21 23:31 06:00 06:00 WBC RBC 3.13 L Hgb 10.0 L Hct MCV 100 H MCH RDW 24.6 H Plt Count 127 L Lymph % (Auto) Eos % (Auto) Lymph # (Auto) Eos # (Auto) Seg Neutrophils % Seg Neuts % (Manual) Lymphocytes % (Manual) Seg Neutrophils # Man Lymphocytes # (Manual) PT INR APTT D-Dimer ABG pH POC ABG pCO2 POC ABG pO2 ABG pO2 ABG HCO3 ABG O2 Saturation ABG Base Excess ABG Hemoglobin ABG Oxyhemoglobin ABG Sodium ABG Potassium ABG Chloride ABG Glucose Oxyhemoglobin Carboxyhemoglobin Sodium 136 L Potassium Chloride 94.2 L Carbon Dioxide 32 H BUN Creatinine 0.3 L Glucose 241 H POC Glucose 149 H Lactic Acid Calcium 8.3 L Phosphorus Magnesium Ferritin Total Bilirubin Direct Bilirubin AST ALT Alkaline Phosphatase 219 H Lactate Dehydrogenase 301 H C-Reactive Protein 22.40 H NT-Pro-B Natriuret Pep Total Protein 6.2 L Albumin 1.8 L Lipase Arterial Blood Glucose Arterial Blood Ionized Calcium Ur Specific [place] Vancomycin Trough Coronavirus (PCR) 06/05/21 06/05/21 06/05/21 06:00 06:00 06:12 WBC RBC Hgb Hct MCV MCH RDW Plt Count Lymph % (Auto) Eos % (Auto) Lymph # (Auto) Eos # (Auto) Seg Neutrophils % Seg Neuts % (Manual) Lymphocytes % (Manual) Seg Neutrophils # Man Lymphocytes # (Manual) PT 15.9 H INR 1.15 H APTT 37.1 H D-Dimer 1282.85 H ABG pH POC ABG pCO2 POC ABG pO2 ABG pO2 ABG HCO3 ABG O2 Saturation ABG Base Excess ABG Hemoglobin ABG Oxyhemoglobin ABG Sodium ABG Potassium ABG Chloride ABG Glucose Oxyhemoglobin Carboxyhemoglobin Sodium Potassium Chloride Carbon Dioxide BUN Creatinine Glucose POC Glucose 228 H Lactic Acid Calcium Phosphorus Magnesium Ferritin 717.1 H Total Bilirubin Direct Bilirubin AST ALT Alkaline Phosphatase Lactate Dehydrogenase C-Reactive Protein NT-Pro-B Natriuret Pep Total Protein Albumin Lipase Arterial Blood Glucose Arterial Blood Ionized Calcium Ur Specific [place] Vancomycin Trough Coronavirus (PCR) 06/05/21 06/05/21 06/05/21 09:17 12:20 17:07 WBC RBC Hgb Hct MCV MCH RDW Plt Count Lymph % (Auto) Eos % (Auto) Lymph # (Auto) Eos # (Auto) Seg Neutrophils % Seg Neuts % (Manual) Lymphocytes % (Manual) Seg Neutrophils # Man Lymphocytes # (Manual) PT INR APTT D-Dimer ABG pH POC ABG pCO2 54.0 H POC ABG pO2 140.6 H ABG pO2 ABG HCO3 ABG O2 Saturation ABG Base Excess ABG Hemoglobin 10.3 L ABG Oxyhemoglobin ABG Sodium 133.6 L ABG Potassium 3.3 L ABG Chloride 97.0 L ABG Glucose 179 H Oxyhemoglobin Carboxyhemoglobin Sodium Potassium Chloride Carbon Dioxide BUN Creatinine Glucose POC Glucose 220 H 197 H Lactic Acid Calcium Phosphorus Magnesium Ferritin Total Bilirubin Direct Bilirubin AST ALT Alkaline Phosphatase Lactate Dehydrogenase C-Reactive Protein NT-Pro-B Natriuret Pep Total Protein Albumin Lipase Arterial Blood Glucose 179 H Arterial Blood Ionized Calcium Ur Specific [place] Vancomycin Trough Coronavirus (PCR) 06/05/21 06/06/21 06/06/21 23:29 05:26 05:26 WBC 3.5 L RBC 3.21 L Hgb Hct MCV 98 H MCH RDW 23.9 H Plt Count 110 L Lymph % (Auto) Eos % (Auto) Lymph # (Auto) Eos # (Auto) Seg Neutrophils % Seg Neuts % (Manual) Lymphocytes % (Manual) Seg Neutrophils # Man Lymphocytes # (Manual) PT INR APTT D-Dimer ABG pH POC ABG pCO2 POC ABG pO2 ABG pO2 ABG HCO3 ABG O2 Saturation ABG Base Excess ABG Hemoglobin ABG Oxyhemoglobin ABG Sodium ABG Potassium ABG Chloride ABG Glucose Oxyhemoglobin Carboxyhemoglobin Sodium Potassium 3.2 L Chloride Carbon Dioxide 34 H BUN Creatinine 0.3 L Glucose 172 H POC Glucose 180 H Lactic Acid Calcium 8.0 L Phosphorus Magnesium Ferritin Total Bilirubin Direct Bilirubin AST ALT Alkaline Phosphatase 207 H Lactate Dehydrogenase C-Reactive Protein NT-Pro-B Natriuret Pep Total Protein 5.5 L Albumin 2.0 L Lipase Arterial Blood Glucose Arterial Blood Ionized Calcium Ur Specific [place] Vancomycin Trough Coronavirus (PCR) 06/06/21 06/06/21 06/06/21 05:30 09:00 11:15 WBC RBC Hgb Hct MCV MCH RDW Plt Count Lymph % (Auto) Eos % (Auto) Lymph # (Auto) Eos # (Auto) Seg Neutrophils % Seg Neuts % (Manual) Lymphocytes % (Manual) Seg Neutrophils # Man Lymphocytes # (Manual) PT INR APTT D-Dimer ABG pH POC ABG pCO2 59.5 H POC ABG pO2 72.0 L ABG pO2 ABG HCO3 ABG O2 Saturation ABG Base Excess ABG Hemoglobin 10.9 L ABG Oxyhemoglobin 91.7 L ABG Sodium 135.8 L ABG Potassium 2.8 L ABG Chloride 96.0 L ABG Glucose 172 H Oxyhemoglobin Carboxyhemoglobin Sodium Potassium Chloride Carbon Dioxide BUN Creatinine Glucose POC Glucose 159 H 172 H Lactic Acid Calcium Phosphorus Magnesium Ferritin Total Bilirubin Direct Bilirubin AST ALT Alkaline Phosphatase Lactate Dehydrogenase C-Reactive Protein NT-Pro-B Natriuret Pep Total Protein Albumin Lipase Arterial Blood Glucose 172 H Arterial Blood Ionized Calcium 4.5 L Ur Specific [place] Vancomycin Trough Coronavirus (PCR) 06/06/21 06/06/21 06/06/21 16:07 21:00 23:46 WBC RBC Hgb Hct MCV MCH RDW Plt Count Lymph % (Auto) Eos % (Auto) Lymph # (Auto) Eos # (Auto) Seg Neutrophils % Seg Neuts % (Manual) Lymphocytes % (Manual) Seg Neutrophils # Man Lymphocytes # (Manual) PT INR APTT D-Dimer ABG pH POC ABG pCO2 59.5 H POC ABG pO2 52.1 L ABG pO2 ABG HCO3 ABG O2 Saturation ABG Base Excess ABG Hemoglobin 11.9 L ABG Oxyhemoglobin 84.0 L ABG Sodium 134.6 L ABG Potassium ABG Chloride ABG Glucose 206 H Oxyhemoglobin Carboxyhemoglobin Sodium Potassium Chloride Carbon Dioxide BUN Creatinine Glucose POC Glucose 122 H 203 H Lactic Acid Calcium Phosphorus Magnesium Ferritin Total Bilirubin Direct Bilirubin AST ALT Alkaline Phosphatase Lactate Dehydrogenase C-Reactive Protein NT-Pro-B Natriuret Pep Total Protein Albumin Lipase Arterial Blood Glucose 206 H Arterial Blood Ionized Calcium Ur Specific [place] Vancomycin Trough Coronavirus (PCR) 06/07/21 06/07/21 06/07/21 04:36 04:36 04:36 WBC RBC Hgb Hct MCV MCH RDW Plt Count Lymph % (Auto) Eos % (Auto) Lymph # (Auto) Eos # (Auto) Seg Neutrophils % Seg Neuts % (Manual) Lymphocytes % (Manual) Seg Neutrophils # Man Lymphocytes # (Manual) PT INR APTT D-Dimer 1938.43 H ABG pH POC ABG pCO2 POC ABG pO2 ABG pO2 ABG HCO3 ABG O2 Saturation ABG Base Excess ABG Hemoglobin ABG Oxyhemoglobin ABG Sodium ABG Potassium ABG Chloride ABG Glucose Oxyhemoglobin Carboxyhemoglobin Sodium Potassium Chloride Carbon Dioxide 31 H BUN Creatinine 0.3 L Glucose 234 H POC Glucose Lactic Acid Calcium Phosphorus 2.40 L Magnesium Ferritin 1287.0 H Total Bilirubin Direct Bilirubin AST ALT Alkaline Phosphatase Lactate Dehydrogenase 270 H C-Reactive Protein 26.70 H NT-Pro-B Natriuret Pep Total Protein Albumin Lipase Arterial Blood Glucose Arterial Blood Ionized Calcium Ur Specific [place] Vancomycin Trough Coronavirus (PCR) 06/07/21 06/07/21 06/07/21 04:36 05:31 10:50 WBC RBC 3.31 L Hgb Hct MCV 99 H MCH RDW 23.9 H Plt Count 133 L Lymph % (Auto) Eos % (Auto) Lymph # (Auto) Eos # (Auto) Seg Neutrophils % Seg Neuts % (Manual) Lymphocytes % (Manual) Seg Neutrophils # Man Lymphocytes # (Manual) PT INR APTT D-Dimer ABG pH POC ABG pCO2 POC ABG pO2 ABG pO2 66.6 L ABG HCO3 35.7 H ABG O2 Saturation ABG Base Excess 10.3 H ABG Hemoglobin 6.2 L ABG Oxyhemoglobin ABG Sodium ABG Potassium ABG Chloride ABG Glucose Oxyhemoglobin 94.7 L Carboxyhemoglobin Sodium Potassium Chloride Carbon Dioxide BUN Creatinine Glucose POC Glucose 252 H Lactic Acid Calcium Phosphorus Magnesium Ferritin Total Bilirubin Direct Bilirubin AST ALT Alkaline Phosphatase Lactate Dehydrogenase C-Reactive Protein NT-Pro-B Natriuret Pep Total Protein Albumin Lipase Arterial Blood Glucose Arterial Blood Ionized Calcium Ur Specific [place] Vancomycin Trough Coronavirus (PCR) 06/07/21 06/07/21 06/07/21 11:56 16:21 23:46 WBC RBC Hgb Hct MCV MCH RDW Plt Count Lymph % (Auto) Eos % (Auto) Lymph # (Auto) Eos # (Auto) Seg Neutrophils % Seg Neuts % (Manual) Lymphocytes % (Manual) Seg Neutrophils # Man Lymphocytes # (Manual) PT INR APTT D-Dimer ABG pH POC ABG pCO2 POC ABG pO2 ABG pO2 ABG HCO3 ABG O2 Saturation ABG Base Excess ABG Hemoglobin ABG Oxyhemoglobin ABG Sodium ABG Potassium ABG Chloride ABG Glucose Oxyhemoglobin Carboxyhemoglobin Sodium Potassium Chloride Carbon Dioxide BUN Creatinine Glucose POC Glucose 178 H 190 H 179 H Lactic Acid Calcium Phosphorus Magnesium Ferritin Total Bilirubin Direct Bilirubin AST ALT Alkaline Phosphatase Lactate Dehydrogenase C-Reactive Protein NT-Pro-B Natriuret Pep Total Protein Albumin Lipase Arterial Blood Glucose Arterial Blood Ionized Calcium Ur Specific [place] Vancomycin Trough Coronavirus (PCR) 06/08/21 06/08/21 06/08/21 04:47 04:47 06:21 WBC 11.1 H RBC 3.02 L Hgb 9.4 L Hct 29.9 L MCV 99 H MCH RDW 24.5 H Plt Count Lymph % (Auto) Eos % (Auto) Lymph # (Auto) Eos # (Auto) Seg Neutrophils % Seg Neuts % (Manual) Lymphocytes % (Manual) Seg Neutrophils # Man Lymphocytes # (Manual) PT INR APTT D-Dimer ABG pH POC ABG pCO2 POC ABG pO2 ABG pO2 ABG HCO3 ABG O2 Saturation ABG Base Excess ABG Hemoglobin ABG Oxyhemoglobin ABG Sodium ABG Potassium ABG Chloride ABG Glucose Oxyhemoglobin Carboxyhemoglobin Sodium Potassium Chloride Carbon Dioxide BUN 28 H Creatinine 0.4 L Glucose 230 H POC Glucose 210 H Lactic Acid Calcium 8.2 L Phosphorus Magnesium Ferritin Total Bilirubin Direct Bilirubin AST ALT Alkaline Phosphatase Lactate Dehydrogenase C-Reactive Protein NT-Pro-B Natriuret Pep Total Protein Albumin Lipase Arterial Blood Glucose Arterial Blood Ionized Calcium Ur Specific [place] Vancomycin Trough Coronavirus (PCR) 06/08/21 06/08/21 06/09/21 11:56 18:06 00:16 WBC RBC Hgb Hct MCV MCH RDW Plt Count Lymph % (Auto) Eos % (Auto) Lymph # (Auto) Eos # (Auto) Seg Neutrophils % Seg Neuts % (Manual) Lymphocytes % (Manual) Seg Neutrophils # Man Lymphocytes # (Manual) PT INR APTT D-Dimer ABG pH POC ABG pCO2 POC ABG pO2 ABG pO2 ABG HCO3 ABG O2 Saturation ABG Base Excess ABG Hemoglobin ABG Oxyhemoglobin ABG Sodium ABG Potassium ABG Chloride ABG Glucose Oxyhemoglobin Carboxyhemoglobin Sodium Potassium Chloride Carbon Dioxide BUN Creatinine Glucose POC Glucose 157 H 136 H 147 H Lactic Acid Calcium Phosphorus Magnesium Ferritin Total Bilirubin Direct Bilirubin AST ALT Alkaline Phosphatase Lactate Dehydrogenase C-Reactive Protein NT-Pro-B Natriuret Pep Total Protein Albumin Lipase Arterial Blood Glucose Arterial Blood Ionized Calcium Ur Specific [place] Vancomycin Trough Coronavirus (PCR) 06/09/21 06/09/21 06/09/21 02:45 04:48 04:48 WBC RBC 3.14 L Hgb 9.8 L Hct MCV 99 H MCH RDW 24.3 H Plt Count 124 L Lymph % (Auto) Eos % (Auto) Lymph # (Auto) Eos # (Auto) Seg Neutrophils % Seg Neuts % (Manual) Lymphocytes % (Manual) Seg Neutrophils # Man Lymphocytes # (Manual) PT INR APTT D-Dimer ABG pH POC ABG pCO2 56.0 H POC ABG pO2 54.3 L ABG pO2 ABG HCO3 ABG O2 Saturation ABG Base Excess ABG Hemoglobin 11.1 L ABG Oxyhemoglobin 85.6 L ABG Sodium ABG Potassium ABG Chloride ABG Glucose 191 H Oxyhemoglobin Carboxyhemoglobin 1.6 H Sodium Potassium Chloride Carbon Dioxide BUN 29 H Creatinine 0.5 L Glucose 225 H POC Glucose Lactic Acid Calcium 7.7 L Phosphorus 5.10 H Magnesium Ferritin Total Bilirubin Direct Bilirubin AST ALT Alkaline Phosphatase Lactate Dehydrogenase C-Reactive Protein NT-Pro-B Natriuret Pep Total Protein Albumin Lipase Arterial Blood Glucose 191 H Arterial Blood Ionized Calcium 4.4 L Ur Specific [place] Vancomycin Trough Coronavirus (PCR) 06/09/21 06/09/21 06/09/21 06:14 11:54 16:38 WBC RBC Hgb Hct MCV MCH RDW Plt Count Lymph % (Auto) Eos % (Auto) Lymph # (Auto) Eos # (Auto) Seg Neutrophils % Seg Neuts % (Manual) Lymphocytes % (Manual) Seg Neutrophils # Man Lymphocytes # (Manual) PT INR APTT D-Dimer ABG pH POC ABG pCO2 POC ABG pO2 ABG pO2 ABG HCO3 ABG O2 Saturation ABG Base Excess ABG Hemoglobin ABG Oxyhemoglobin ABG Sodium ABG Potassium ABG Chloride ABG Glucose Oxyhemoglobin Carboxyhemoglobin Sodium Potassium Chloride Carbon Dioxide BUN Creatinine Glucose POC Glucose 215 H 167 H 192 H Lactic Acid Calcium Phosphorus Magnesium Ferritin Total Bilirubin Direct Bilirubin AST ALT Alkaline Phosphatase Lactate Dehydrogenase C-Reactive Protein NT-Pro-B Natriuret Pep Total Protein Albumin Lipase Arterial Blood Glucose Arterial Blood Ionized Calcium Ur Specific [place] Vancomycin Trough Coronavirus (PCR) 06/09/21 06/10/21 06/10/21 23:42 05:10 08:19 WBC 15.9 H RBC 3.17 L Hgb 10.0 L Hct MCV 101 H MCH RDW 24.6 H Plt Count Lymph % (Auto) Eos % (Auto) Lymph # (Auto) Eos # (Auto) Seg Neutrophils % Seg Neuts % (Manual) Lymphocytes % (Manual) Seg Neutrophils # Man Lymphocytes # (Manual) PT INR APTT D-Dimer ABG pH POC ABG pCO2 POC ABG pO2 ABG pO2 ABG HCO3 ABG O2 Saturation ABG Base Excess ABG Hemoglobin ABG Oxyhemoglobin ABG Sodium ABG Potassium ABG Chloride ABG Glucose Oxyhemoglobin Carboxyhemoglobin Sodium Potassium Chloride Carbon Dioxide BUN Creatinine Glucose POC Glucose 197 H 123 H Lactic Acid Calcium Phosphorus Magnesium Ferritin Total Bilirubin Direct Bilirubin AST ALT Alkaline Phosphatase Lactate Dehydrogenase C-Reactive Protein NT-Pro-B Natriuret Pep Total Protein Albumin Lipase Arterial Blood Glucose Arterial Blood Ionized Calcium Ur Specific [place] Vancomycin Trough Coronavirus (PCR) 06/10/21 06/10/21 06/10/21 08:19 11:25 14:20 WBC RBC Hgb Hct MCV MCH RDW Plt Count Lymph % (Auto) Eos % (Auto) Lymph # (Auto) Eos # (Auto) Seg Neutrophils % Seg Neuts % (Manual) Lymphocytes % (Manual) Seg Neutrophils # Man Lymphocytes # (Manual) PT INR APTT D-Dimer ABG pH POC ABG pCO2 POC ABG pO2 ABG pO2 ABG HCO3 ABG O2 Saturation ABG Base Excess ABG Hemoglobin ABG Oxyhemoglobin ABG Sodium ABG Potassium ABG Chloride ABG Glucose Oxyhemoglobin Carboxyhemoglobin Sodium 147 H Potassium 5.1 H D 5.1 H Chloride Carbon Dioxide 31 H BUN 43 H Creatinine 0.5 L Glucose 228 H POC Glucose 196 H Lactic Acid Calcium Phosphorus 5.20 H Magnesium Ferritin Total Bilirubin Direct Bilirubin AST ALT Alkaline Phosphatase Lactate Dehydrogenase C-Reactive Protein NT-Pro-B Natriuret Pep Total Protein Albumin Lipase Arterial Blood Glucose Arterial Blood Ionized Calcium Ur Specific [place] Vancomycin Trough Coronavirus (PCR) 06/10/21 16:41 WBC RBC Hgb Hct MCV MCH RDW Plt Count Lymph % (Auto) Eos % (Auto) Lymph # (Auto) Eos # (Auto) Seg Neutrophils % Seg Neuts % (Manual) Lymphocytes % (Manual) Seg Neutrophils # Man Lymphocytes # (Manual) PT INR APTT D-Dimer ABG pH POC ABG pCO2 POC ABG pO2 ABG pO2 ABG HCO3 ABG O2 Saturation ABG Base Excess ABG Hemoglobin ABG Oxyhemoglobin ABG Sodium ABG Potassium ABG Chloride ABG Glucose Oxyhemoglobin Carboxyhemoglobin Sodium Potassium Chloride Carbon Dioxide BUN Creatinine Glucose POC Glucose 214 H Lactic Acid Calcium Phosphorus Magnesium Ferritin Total Bilirubin Direct Bilirubin AST ALT Alkaline Phosphatase Lactate Dehydrogenase C-Reactive Protein NT-Pro-B Natriuret Pep Total Protein Albumin Lipase Arterial Blood Glucose Arterial Blood Ionized Calcium Ur Specific [place] Vancomycin Trough Coronavirus (PCR) Chest x-ray: pending Allied health notes reviewed: nursing
[2021-06-10] MEDS: INSULIN GLARGINE 100 UNITS/ML SUB-Q SCH (21:29)
[2021-06-10] MEDS: FONDAPARINUX 2.5 MG/0.5 ML INJ SUB-Q SCH (21:29)
[2021-06-11] MEDS: INSULIN LISPRO 100 UNIT/ML SUB-Q SCH ×4 (00:42→19:50)
[2021-06-11] MEDS: METOCLOPRAMIDE 10 MG/2 ML INJ IV SCH ×4 (00:42→17:01)
[2021-06-11] MEDS: FREE WATER PO SCH ×7 (02:00→22:03)
[2021-06-11] MEDS: HYDROCORTISONE SOD SUCC 100 MG/2 ML VIAL IV SCH ×3 (05:47→22:01)
[2021-06-11] MEDS: NORepinephrine/NS 8 MG-250 ML 8 MG/250 ML INFUS..BTL IV SCH ×4 (05:49→22:51)
[2021-06-11] MEDS: fentaNYL DRIP Premix 2,000 MCG/100 ML BAG IV SCH ×3 (07:47→22:36)
[2021-06-11] MEDS: ARFORMOTEROL 15 MCG/2 ML NEBU IH SCH ×2 (08:46→19:23)
[2021-06-11] MEDS: BUDESONIDE 0.5 MG/2 ML NEBU IH SCH ×2 (08:46→19:23)
[2021-06-11] MEDS: DICYCLOMINE 10 MG CAP PO SCH ×4 (09:14→22:02)
[2021-06-11] MEDS: LANSOPRAZOLE 30 MG SOLUTAB FEEDTUBE SCH (09:15)
[2021-06-11] MEDS: ZINC SULFATE 220 MG CAP PO SCH ×2 (09:15→22:03)
[2021-06-11] MEDS: ASCORBIC ACID 500 MG TAB PO SCH ×2 (09:15→22:02)
[2021-06-11] MEDS: SENNOSIDES/DOCUSATE SODIUM 8.6/50 MG TAB FEEDTUBE SCH ×2 (09:18→22:03)
[2021-06-11] MEDS ORDERED: LACTATED RINGERS 1,000 ML IV ONE (10:30)
[2021-06-11 10:56] LABS: Hematocrit 26.7 % (30.3-42.9); Hemoglobin 8.3 gm/dl (10.1-14.3); Mean Corpuscular HGB Conc 31 % (30-34); Mean Corpuscular Volume 103 fl (79-97); Red Blood Count 2.59 M/mm3 (3.65-5.03)
[2021-06-11 10:59] LABS: Platelet Count 91 K/mm3 (140-440)
[2021-06-11 11:12] LABS: Blood Urea Nitrogen 50 mg/dL (7-17); Calcium 8.8 mg/dL (8.4-10.2); Hemolysis Index 10
[2021-06-11 11:15] LABS: BUN/Creatinine Ratio 71
--- NOTE | 2021-06-11 11:20 | Progress Note ---
Assessment and Plan Assessment and plan: This is a 48-year-old female with past medical history of COPD, pancreatic cancer with radiation s/p pancreatic stent placement, pulmonary fibrosis, chronic respiratory failure on 2 L NC at home initially admitted for admitted with sepsis, transaminitis and lactic acidosis. Initial plan was to discharge patient to inpatient hospice, however she was denied since her COVID test came back positive. Patient decompensated on 06/02 with severe hypoxia on 100% on Bipap, family notified and wanted to keep patient as a FULL code status. Patient was intubated and now on ventilatory support. Hospital Course to Date: ........ 06/02: Patient intubated and sedated, RASS -5. Now hypotensive with tachycardia, on levophed gtt, continue continuous IVF and titrate pressors for MAP above 65. Hypokalemia and hypomagnesemia repleted, repeat labs 4hrs post treatment. Severely hypoglycemic this am, per RN TF has been on hold since patient was on Bipap. Low BG treated per hypoglycemic protocol, plan to resume TF today. 06/03: RASS of 0 to -1 this am, following commands, remains on sedation. Mirza in WBCs this am, patient remains afebrile, blood culture and sputum culture pen ding. Probably reactive, patient on IV steroids, remdesevir starting tonight. Continue to trend CBC. Conference call with [facility] and patient's son and daughter today. All questions and concerns were addressed. 06/04: started on stress dose steroids, BLE dopplars pending, Remove almaraz and request records. 06/05: HIT panel sent today, started Arixtra, decrease free water flush, almaraz replaced re retention, Will not treat gram-negative in tracheal aspirate until speciation given normal WBCs and afebrile state. increase in the long acting insulin. Levophed titrated off 06/06: Noted to have subcutaneous air and his stat CXR showed no pneumothorax, vent changes per CCM. Hypokalemia which was repleted. Right upper extremity Doppler ultrasound obtained due to swelling but shows no DVT 06/07: No acute events reported overnight. Sedation increased today due to tachypnea. 06/08: No acute events overnight, will order CA 199, hospital records reviewed, decreasing FiO2. Reglan started due to increased to feeding residuals and placed back on Levophed. 06/09: This morning RN reported patient had a cuff leak and was tachycardic/hypoxic. RT amended cuff leak and sedation was increased which help ed the patient. Levophed transition as needed for adequate sedation. 06/10: Hyperkalemia today, given Kayexalate. Noted peaked T waves on bedside monitor and ECG obtained. Increasing free water flush due to slight hypernatremia. Updated son over the phone of current events and told him that family to discuss goals of care as trach likely needed if they would like to continue with treatments. Son stated that him and his sister humza were discussing this. He asked about a Passy-Alfred valve however informed that that would be considered after patient able to be sustained on room air. Son stated they would like to have a Zoom meeting with family in [place] along with sister humza next week. 06/11: HR in the 140s this am, max on levophed gtt MAP remains in the low 50s. X1L LR given, HR improved in the 120s. Vasopressin was also added to maintain MAP at 65. Stat CXR and 2D echo was also ordered. FWF added for hypernatremia. Assessment and Plan #Neuro: Sedated -Intubated and sedated on Fentanyl and propofol, RASS 0 to -1 -Titrate seadtion for RASS goal 0 to -2 -Daily SAT and SBT per CCM -Avoid benzodiazepine to reduce the possibility of delirium -PRN analgesia for CPOT greater than 3 -Maintenance of sleep-wake cycle #CV: Hypotension #Tachycardia #Septic Shock #h/o HTN -With low BP and tachycardic, HR in the 140s this am -Max on Levophed gtt. MAP sustaining in the low 50s -X1L of LR given, HR improved in the 120s -Stat EKG pending -Second pressor, Vasopressin also added -Continue blood pressure monitor per protocol -Titrate pressors for MAP goal above 65 -Maintain adequate perfusion -ED Echo pending -Hold home htn medications -CCM consulted, appreciate recommendations #Respiratory: Acute on chronic respiratory failure #COVID positive #h/o pulmonary fibrosis #O2 Dependent at home -Intubated on 06/02, decompensated,Low SPO2 in the 70s on 100% Bipap -Vent Setting: A/C-100%,8,25,350 -AM ABG noted -CCM consulted, appreciate recommendations -Continue IV Steroids and Nebs per CCM -VAP bundle addressed -Aspiration precaution HOB above 30 -Daily SBT and SAT trials as tolerated -Daily ABG and CXR per [facility] -Continue SPO2 monitoring for SPO2 goal above 92% #GI: Transaminitis #H/o Pancreatic CA s/p stent placement #Biliary dilation #R/o cholangitis #Nausea/Vomiting- Resolved -CT abdomen/pelvis showed pancreatic cancer with metallic stent with possible occlusion, mild pelvic fluid and mild colonic thickening -No GI intervention per GI. GI signed off -Continue Enteral nutrition -Nutrition consulted -Continue PPI -Continue BR -PRN antiemetic for N/V #:Hypernatremia #Urinary retention-resolved -High Na this am -FWF added -Continue to monitor and replete electrolytes as needed -Almaraz reinserted on 06/05 d/t retention -Strict intake and output -Keep patient at a net negatibe balance -Daily weights -Renally dose meds, avoid nephrotoxins -Repeat Labs ordered -Trend BMP #ID: Septic Jenny #COVID positive -Most likely hepatobiliary related -COVID swab now positive -X2 previous Blood cultures set where negative -Completed IV Abx course -Patient remains afebrile, WBCs improved -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 -S/p X5days of Remdesevir -ID consulted signed off -Continue IV steroids -Daily CBC monitor -Consider ID reconsult if febrile or/and if leukocytosis persist #Heme/ONC:Thrombocytopenia #h/o Pancreatic Cancer #s/p pancreatic stent placement -S/p radiation -F/U with outpatient with own oncologist -possible stent occlusion, MRCP cancel patient too unstable -Not a surgical candidate per GI -RUE swelling- RUE doppler neg DVT -Lovenox subcu->changed to arixta -SCD to bilateral lower extremities while in bed -Trend CBC -Close monitor for s/s of active bleeding #Endo:Hyperglycemia #Hypoglycemia-resolved -Continue SSI Q6hrs -Continue lantus -Avoid hypoglycemia The high probability of a clinically significant, sudden or life threatening deterioration of the [Multiple] system(s) required my full and direct attention, intervention and personal management. The aggregate critical care time was [60] minutes. This time is in addition to time spent performing reported procedures but includes the following: [x] Data Review and interpretation [x] Patient assessment and monitoring of vital signs [x] Documentation [x] Medication orders and management Disposition Plan: ICU Total Time Spent with Patient (Minutes): 60 History Interval history: Patient seen and examined at the bedside. Remains intubated and on fentanyl and propofol gtt. Declining this am, Tachycardia, HR in the 140s, with hypotension MAP in the 50s max on Levophed gtt. SPO2 87 to 88% on 100% FiO2 Hospitalist Physical - Constitutional Vitals: Temp Pulse Resp BP Pulse Ox 99.6 F 138 H 24 103/55 89 06/11/21 08:00 06/11/21 10:45 06/11/21 10:45 06/11/21 10:45 06/11/21 10:45 General appearance: Present: severe distress, other (Intubated and Sedated) - EENT Eyes: Present: PERRL - Respiratory Respiratory effort: labored, accessory muscle use Respiratory: bilateral: rhonchi - Cardiovascular Rhythm: regular Heart Sounds: Present: S1 & S2 - Extremities Extremities: no ischemia, pulses intact, pulses symmetrical Extremity abnormal: edema - Peripheral Assessment Generalized Edema Type: Pitting Edema Degree: 2+ Capillary Refill: < 3 seconds Skin Temperature: Warm Peripheral Pulses: within normal limits - Abdominal General gastrointestinal: soft, non-distended, hypoactive bowel sounds - Integumentary Integumentary: Present: warm, dry - Psychiatric Psychiatric: other (Intubated and Sedated) - Neurologic Neurologic: other (Intubated and Sedated) - Allied Health Allied health notes reviewed: nursing Results - Labs CBC & Chem 7: 06/12/21 06:03 06/12/21 10:20 Labs: Laboratory Last Values WBC 6.7 K/mm3 (4.5-11.0) 06/11/21 04:00 RBC 2.59 M/mm3 (3.65-5.03) L 06/11/21 04:00 Hgb 8.3 gm/dl (10.1-14.3) L 06/11/21 04:00 Hct 26.7 % (30.3-42.9) L 06/11/21 04:00 MCV 103 fl (79-97) H 06/11/21 04:00 MCH 32 pg (28-32) 06/11/21 04:00 MCHC 31 % (30-34) 06/11/21 04:00 RDW 25.0 % (13.2-15.2) H 06/11/21 04:00 Plt Count 91 K/mm3 (140-440) L 06/11/21 04:00 Lymph % (Auto) 12.8 % (13.4-35.0) L 06/02/21 08:59 Benton % (Auto) 1.0 % (0.0-7.3) 06/02/21 08:59 Eos % (Auto) 10.2 % (0.0-4.3) H 06/02/21 08:59 Baso % (Auto) 0.5 % (0.0-1.8) 06/02/21 08:59 Lymph # (Auto) 0.6 K/mm3 (1.2-5.4) L 06/02/21 08:59 Benton # (Auto) 0.0 K/mm3 (0.0-0.8) 06/02/21 08:59 Eos # (Auto) 0.5 K/mm3 (0.0-0.4) H 06/02/21 08:59 Baso # (Auto) 0.0 K/mm3 (0.0-0.1) 06/02/21 08:59 Add Manual Diff Complete 05/12/21 04:08 Total Counted 200 05/12/21 04:08 Seg Neutrophils % 75.5 % (40.0-70.0) H 06/02/21 08:59 Seg Neuts % (Manual) 85.5 % (40.0-70.0) H 05/12/21 04:08 Band Neutrophils % 8.5 % 05/12/21 04:08 Lymphocytes % (Manual) 2.0 % (13.4-35.0) L 05/12/21 04:08 Monocytes % (Manual) 3.0 % (0.0-7.3) 05/12/21 04:08 Eosinophils % (Manual) 1.0 % (0.0-4.3) 05/12/21 04:08 Nucleated RBC % Not Reportable 05/12/21 04:08 Seg Neutrophils # 3.6 K/mm3 (1.8-7.7) 06/02/21 08:59 Seg Neutrophils # Man 19.5 K/mm3 (1.8-7.7) H 05/12/21 04:08 Band Neutrophils # 1.9 K/mm3 05/12/21 04:08 Lymphocytes # (Manual) 0.5 K/mm3 (1.2-5.4) L 05/12/21 04:08 Abs React Lymphs (Man) 0.0 K/mm3 05/12/21 04:08 Monocytes # (Manual) 0.7 K/mm3 (0.0-0.8) 05/12/21 04:08 Eosinophils # (Manual) 0.2 K/mm3 (0.0-0.4) 05/12/21 04:08 Basophils # (Manual) 0.0 K/mm3 (0.0-0.1) 05/12/21 04:08 Metamyelocytes # 0.0 K/mm3 05/12/21 04:08 Myelocytes # 0.0 K/mm3 05/12/21 04:08 Promyelocytes # 0.0 K/mm3 05/12/21 04:08 Blast Cells # 0.0 K/mm3 05/12/21 04:08 WBC Morphology Not Reportable 05/12/21 04:08 Hypersegmented Neuts Not Reportable 05/12/21 04:08 Hyposegmented Neuts Not Reportable 05/12/21 04:08 Hypogranular Neuts Not Reportable 05/12/21 04:08 Smudge Cells Not Reportable 05/12/21 04:08 Toxic Granulation Not Reportable 05/12/21 04:08 Toxic Vacuolation Not Reportable 05/12/21 04:08 Dohle Bodies Not Reportable 05/12/21 04:08 Pelger-Huet Anomaly Not Reportable 05/12/21 04:08 Elizabeth Rods Not Reportable 05/12/21 04:08 Platelet Estimate Consistent w auto 05/12/21 04:08 Clumped Platelets Not Reportable 05/12/21 04:08 Plt Clumps, EDTA Not Reportable 05/12/21 04:08 Large Platelets Not Reportable 05/12/21 04:08 Giant Platelets Not Reportable 05/12/21 04:08 Platelet Satelliting Not Reportable 05/12/21 04:08 Plt Morphology Comment Not Reportable 05/12/21 04:08 RBC Morphology Not Reportable 05/12/21 04:08 Dimorphic RBCs Not Reportable 05/12/21 04:08 Polychromasia Not Reportable 05/12/21 04:08 Hypochromasia Not Reportable 05/12/21 04:08 Poikilocytosis Not Reportable 05/12/21 04:08 Anisocytosis 1+ 05/12/21 04:08 Microcytosis Not Reportable 05/12/21 04:08 Macrocytosis Not Reportable 05/12/21 04:08 Spherocytes Not Reportable 05/12/21 04:08 Pappenheimer Bodies Not Reportable 05/12/21 04:08 Sickle Cells Not Reportable 05/12/21 04:08 Target Cells Not Reportable 05/12/21 04:08 Tear Drop Cells Not Reportable 05/12/21 04:08 Ovalocytes Not Reportable 05/12/21 04:08 Helmet Cells Not Reportable 05/12/21 04:08 S[place] Bodies Not Reportable 05/12/21 04:08 Jackson Rings Not Reportable 05/12/21 04:08 Marcin Cells Not Reportable 05/12/21 04:08 Bite Cells Not Reportable 05/12/21 04:08 Crenated Cell Not Reportable 05/12/21 04:08 Elliptocytes Not Reportable 05/12/21 04:08 Acanthocytes (Spur) Not Reportable 05/12/21 04:08 Rouleaux Not Reportable 05/12/21 04:08 Hemoglobin C Crystals Not Reportable 05/12/21 04:08 Schistocytes Not Reportable 05/12/21 04:08 Malaria parasites Not Reportable 05/12/21 04:08 Tahir Bodies Not Reportable 05/12/21 04:08 Hem Pathologist Commnt No 05/12/21 04:08 PT 15.9 Sec. (12.2-14.9) H 06/05/21 06:00 INR 1.15 (0.87-1.13) H 06/05/21 06:00 APTT 37.1 Sec. (24.2-36.6) H 06/05/21 06:00 D-Dimer 1938.43 ng/mlDDU (0-234) H 06/07/21 04:36 ABG pH 7.366 (7.320-7.450) 06/11/21 06:20 POC ABG pCO2 61.8 mmHg (32.0-48.0) H 06/11/21 06:20 ABG pCO2 55.5 mm Hg 06/07/21 10:50 POC ABG pO2 55.2 mmHg (83-108) L 06/11/21 06:20 ABG pO2 66.6 mm Hg (80.0-90.0) L 06/07/21 10:50 POC ABG HCO3 34.6 06/11/21 06:20 ABG HCO3 35.7 mmol/L (20.0-26.0) H 06/07/21 10:50 ABG O2 Saturation 88.2 (0-100) 06/11/21 06:20 ABG O2 Content 8.3 (0.0-44) 06/07/21 10:50 POC ABG Base Excess 7.6 06/11/21 06:20 ABG Base Excess 10.3 mmol/L (-2.0-3.0) H 06/07/21 10:50 ABG Hemoglobin 11.2 (12.0-17.5) L 06/11/21 06:20 ABG Oxyhemoglobin 86.9 (94-98) L 06/11/21 06:20 ABG Carboxyhemoglobin 2.3 % (0.0-5.0) 06/07/21 10:50 ABG Methemoglobin 0 (0.0-1.5) 06/11/21 06:20 ABG Sodium 146.1 mmol/L (136.0-145.0) H 06/11/21 06:20 ABG Potassium 4.5 mmol/L (3.40-4.50) 06/11/21 06:20 ABG Chloride 105.0 mmol/L (98-107) 06/11/21 06:20 ABG Glucose 200 mg/dL (65-95) H 06/11/21 06:20 Oxyhemoglobin 94.7 % (95.0-99.0) L 06/07/21 10:50 Carboxyhemoglobin 1.5 (0.5-1.5) 06/11/21 06:20 FiO2 80 % 06/07/21 10:50 FiO2 % 90 06/11/21 06:20 Sodium 150 mmol/L (137-145) H 06/11/21 04:00 Potassium 4.7 mmol/L (3.6-5.0) 06/11/21 04:00 Chloride 107.6 mmol/L (98-107) H 06/11/21 04:00 Carbon Dioxide 30 mmol/L (22-30) 06/11/21 04:00 Anion Gap 17 mmol/L 06/11/21 04:00 BUN 50 mg/dL (7-17) H 06/11/21 04:00 Creatinine 0.7 mg/dL (0.6-1.2) 06/11/21 04:00 Estimated GFR > 60 ml/min 06/11/21 04:00 BUN/Creatinine Ratio 71 % 06/11/21 04:00 Glucose 140 mg/dL (65-100) H 06/11/21 04:00 POC Glucose 165 mg/dL (70-105) H 06/11/21 05:15 Hemoglobin A1c 5.2 % (4-6) 05/12/21 04:08 Lactic Acid 3.30 mmol/L (0.7-2.0) H* 05/12/21 Unknown Calcium 8.8 mg/dL (8.4-10.2) 06/11/21 04:00 Phosphorus 5.20 mg/dL (2.5-4.5) H 06/10/21 08:19 Magnesium 2.20 mg/dL (1.7-2.3) 06/10/21 08:19 Ferritin 1287.0 ng/mL (10.0-200.0) H 06/07/21 04:36 Total Bilirubin 0.80 mg/dL (0.1-1.2) 06/06/21 05:26 Direct Bilirubin 1.6 mg/dL (0-0.2) H 05/23/21 10:15 Indirect Bilirubin 0.7 mg/dL 05/23/21 10:15 AST 25 units/L (5-40) 06/06/21 05:26 ALT 42 units/L (7-56) 06/06/21 05:26 Alkaline Phosphatase 207 units/L (35-129) H 06/06/21 05:26 Lactate Dehydrogenase 270 units/L (91-180) H 06/07/21 04:36 C-Reactive Protein 26.70 mg/dL (0.00-1.30) H 06/07/21 04:36 NT-Pro-B Natriuret Pep 2326 pg/mL (0-900) H 06/02/21 22:00 Total Protein 5.5 g/dL (6.3-8.2) L 06/06/21 05:26 Albumin 2.0 g/dL (3.9-5) L 06/06/21 05:26 Albumin/Globulin Ratio 0.6 % 06/06/21 05:26 Triglycerides 95 mg/dL (2-149) 06/07/21 04:36 Lipase 3 units/L (13-60) L 05/11/21 05:43 Arterial Blood Glucose 200 mg/dL (65-95) H 06/11/21 06:20 Arterial Blood Ionized Calcium 4.8 mg/dL (4.6-5.3) 06/11/21 06:20 Urine Color Deisi (Yellow) 05/11/21 11:18 Urine Turbidity Clear (Clear) 05/11/21 11:18 Urine pH 6.0 (5.0-7.0) 05/11/21 11:18 Ur Specific [place] 1.035 (1.003-1.030) H 05/11/21 11:18 Urine Protein 100 mg/dl mg/dL (Negative) 05/11/21 11:18 Urine Glucose (UA) Neg mg/dL (Negative) 05/11/21 11:18 Urine Ketones Neg mg/dL (Negative) 05/11/21 11:18 Urine Blood Neg (Negative) 05/11/21 11:18 Urine Nitrite Neg (Negative) 05/11/21 11:18 Urine Bilirubin Neg (Negative) 05/11/21 11:18 Urine Urobilinogen < 2.0 mg/dL (<2.0) 05/11/21 11:18 Ur Leukocyte Esterase Neg (Negative) 05/11/21 11:18 Urine WBC (Auto) 2.0 /HPF (0.0-6.0) 05/11/21 11:18 Urine RBC (Auto) 1.0 /HPF (0.0-6.0) 05/11/21 11:18 Urine Mucus Few /HPF 05/11/21 11:18 Vancomycin Trough 25.3 ug/mL (5.0-20.0) H 05/14/21 15:20 Coronavirus (PCR) Positive (Negative) A 05/29/21 08:20 Hepatitis A IgM Ab Non-reactive (NonReactive) 05/12/21 12:30 Hep Bs Antigen Nonreactive (Negative) 05/12/21 12:30 Hep B Core IgM Ab Non-reactive (NonReactive) 05/12/21 12:30 Hepatitis C Antibody Non-reactive (NonReactive) 05/12/21 12:30 Almaraz/IV: Voiding Method Indwelling Catheter Active Medications - Current Medications Current Medications: Generic Name Dose Route Start Last Admin Trade Name Freq PRN Reason Stop Dose Admin Acetaminophen 650 mg 05/11/21 21:40 05/14/21 20:06 Acetaminophen 325 Mg Tab PO 650 mg Q4H PRN Administration Pain MILD(1-3)/Fever >100.5/WOODS Lipase/Protease/Amylase 1 each 05/22/21 16:30 Lipase 10,500/Protease 25,000/Amylase 43,750 (Units) Dr Baker FEEDTUBE PRN PRN For Clogged Feeding Tube Arformoterol Tartrate 15 mcg 05/12/21 08:00 06/11/21 08:46 Arformoterol 15 Mcg/2 Ml Nebu IH Not Given Q12HRT ABRAHAN Ascorbic Acid 500 mg 06/02/21 22:00 06/11/21 09:15 Ascorbic Acid 500 Mg Tab PO 500 mg BID ABRAHAN Administration Budesonide 0.5 mg 05/12/21 08:00 06/11/21 08:46 Budesonide 0.5 Mg/2 Ml Nebu IH Not Given Q12HRT ABRAHAN Dextrose 50 ml 05/12/21 11:57 06/02/21 18:34 Dextrose 50% In Water (25gm) 50 Ml Syringe IV 50 ml Q30MIN PRN Administration Hypoglycemia Protocol Dicyclomine HCl 10 mg 05/23/21 14:00 06/11/21 09:14 Dicyclomine 10 Mg Cap PO 10 mg QID ABRAHAN Administration Fentanyl 50 mcg 06/02/21 05:20 Fentanyl 100 Mcg/2 Ml Inj IV Q10MIN PRN ANALGESIA Fondaparinux 2.5 mg 06/05/21 22:00 06/10/21 21:29 Fondaparinux 2.5 Mg/0.5 Ml Inj SUB-Q 2.5 mg QDAY@2200 ABRAHAN Administration Haloperidol Lactate 5 mg 05/19/21 15:00 06/01/21 21:04 Haloperidol Lactate 5 Mg/1 Ml Inj IV 5 mg Q8H PRN Administration Agitation Hydrocortisone Sodium Succinate 100 mg 06/04/21 14:00 06/11/21 05:47 Hydrocortisone Sod Succ 100 Mg/2 Ml Vial IV 100 mg Q8HR ABRAHAN Administration Hydrophilic Ointment 1 applic 06/02/21 17:44 Lip Therapy Vaseline TP Q2HR PRN Dry Lips NORepinephrine/NS 8 MG-250 ML 8 mg in 250 mls @ 3.75 mls/hr 06/02/21 06:00 06/11/21 09:45 Norepinephrine/Ns 8 Mg-250 Ml (Double Conc) IV 16 mcg/min TITRATE ABRAHAN 30 mls/hr Titration Protocol 2 MCG/MIN Propofol 1,000 mg in 100 mls @ 1.932 mls/hr 06/02/21 06:00 06/11/21 02:32 Diprivan 10 Mg/Ml IV 20 mcg/kg/min TITR ABRAHAN 7.728 mls/hr Administration Protocol 5 MCG/KG/MIN Fentanyl Citrate 2,000 mcg in 100 mls @ 3.22 mls/hr 06/02/21 06:00 06/11/21 07:47 Fentanyl Drip Premix IV 3 mcg/kg/hr TITR ABRAHAN 9.66 mls/hr Administration Protocol 1 MCG/KG/HR Lactated Ringer's 1,000 mls @ 999 mls/hr 06/11/21 10:30 06/11/21 10:25 Lactated Ringers IV 06/11/21 11:30 999 mls/hr BOLUS ONE Administration Insulin Glargine 10 units 06/08/21 22:00 06/10/21 21:29 Insulin Glargine 100 Units/Ml SUB-Q 10 units QHS ABRAHAN Administration Insulin Human Lispro 0 unit 05/17/21 12:00 06/11/21 06:31 Insulin Lispro 100 Unit/Ml SUB-Q 3 unit Q6HR ABRAHAN Administration Protocol Lansoprazole 30 mg 05/28/21 10:00 06/11/21 09:15 Lansoprazole 30 Mg Solutab FEEDTUBE 30 mg QDAY ABRAHAN Administration Metoclopramide HCl 10 mg 06/08/21 12:00 06/11/21 05:47 Metoclopramide 10 Mg/2 Ml Inj IV 10 mg Q6HR ABRAHAN Administration Multi-Ingred Cream/Lotion/Oil/Oint 1 applic 06/02/21 17:44 Mineral Oil/Petrolatum, White Ophth Oint 3.5 Gm OU Q4HR PRN Dry Eye(s) Ondansetron HCl 4 mg 05/11/21 21:40 05/15/21 09:57 Ondansetron 4 Mg/2 Ml Inj IV 4 mg Q8H PRN Administration Nausea And Vomiting Senna/Docusate Sodium 1 tab 06/02/21 22:00 06/11/21 09:18 Sennosides/Docusate Sodium 8.6/50 Mg Tab FEEDTUBE Not Given BID ABRAHAN Simple Syrup 15 ml 05/22/21 16:30 Simple Syrup 15 Ml FEEDTUBE PRN PRN Hypoglycemia Simple Syrup 30 ml 05/22/21 16:30 Simple Syrup 15 Ml FEEDTUBE PRN PRN Hypoglycemia Sodium Bicarbonate 325 mg 05/22/21 16:30 Sodium Bicarbonate 325 Mg Tab FEEDTUBE PRN PRN For Clogged Feeding Tube Sodium Chloride 10 ml 05/11/21 22:00 06/11/21 09:16 Sodium Chloride 0.9% 10 Ml Flush Syringe IV 10 ml BID ABRAHAN Administration Sodium Chloride 10 ml 05/11/21 21:40 05/23/21 21:00 Sodium Chloride 0.9% 10 Ml Flush Syringe IV 10 ml PRN PRN Administration LINE FLUSH Zinc Sulfate 220 mg 06/02/21 22:00 06/11/21 09:15 Zinc Sulfate 220 Mg Cap PO 220 mg BID ABRAHAN Administration Nutrition/Malnutrition Assess - Dietary Evaluation Nutrition/Malnutrition Findings: Nutrition Notes Start: 05/13/21 09:47 Freq: Status: Active Protocol: Document 06/09/21 12:03 MARITZA (Rec: 06/09/21 12:05 MARITZA [id number]) Nutrition Notes Initial or Follow up Brief Note Pertinent Medications Propofol at 9.66ml/hr ( provides 255 kcal) Subjective/Other Information Unable to reach RN via phone. Propofol rate increased sec to work of breathing and desaturation. Pt remains on vent support. Nutrition Intervention Follow-Up By: 06/11/21 Additional Comments F/U: TF tolerance, vent status , propofol
--- NOTE | 2021-06-11 11:43 | Progress Note ---
Assessment and Plan Acute on chronic respiratory failure on home O2 of 2 L nasal cannula- currently intubated on MVS Septic shock possible hepatobiliary source, possibly pneumonia with increasing vent requirements Lactic acidosis h/o pulmonary fibrosis, Transaminitis, biliary dilation, r/o cholangitis Hyperchloremia, metabolic acidosis, Hypernatremia h/o pancreatic head cancer- chemoradiation therapy h/o Hypertension Thrombocytopenia -Previous sputum culture showed Stenotrophomonas sensitive to Bactrim adn Levofloxacin- Levofloxacin chosen since it will limit the amount of volume and dextrose infusions that the patient will get -Titrate vasopressor support to MAP >65, add Vasopressin -Trickle tube feeding -Continue Fentanyl and Propofol- titrate to RASS of -1 to -2. -Monitor ventilatory synchrony -Stress ulcer prophylaxis -Hold VTE pharmaco prophylaxis- she has thrombocytopenia -Get ID consult -Get blood , urine and sputum cultures - continue daily SAT and SBT assessment as tolerated - sedation prn for target RASS 0 to -1 - VAP bundle addressed, aspiration precatuions HOB >40 - continue lung protective strategies - continue bronchodilators with pulmonary hygiene per RT - MRCP pending as she remains tenuous from a respiratory standpoint - accuchecks with glycemic control per SSI (While critically ill target blood glucose of 140-180 mg/dL; avoid hypoglycemia) - avoid nephrotoxins, renally dose all medications - Maintenance of sleep-wake cycle, avoid delirium - PT/OT/ROM exercises - mobility , off loading and frequent turning per protocol to prevent pressure ulcers -Continue Rivas catheter- critically ill and has had episodes of urinary retention - Monitor hemodynamics closely - continue other care per attending / other consultants - discharge planning ongoing concurrently COVID SPECIFIC INTERVENTIONS - Remdesivir as per ID/Pulmonary developed protocols, complete course - continue systemic steroids for severe COVID-19 infection empirically (on Solucortef) - zinc and vitamin C supplementation - Monitor inflammatory markers per facility protocol - ferritin, Ddimer, CRP - Anticoagulation per system Protocol based on d-dimer and clinical considerations (DVT prophylaxis) - Contact and airborne isolation per facility protocol CONDITION: CRITICAL PROGNOSIS: GUARDED CODE STATUS: FULL CODE The high probability of a clinically significant, sudden or life-threatening deterioration of the [respiratory, cardiovascular, GI & neurologic] system(s) required my full and direct attention, intervention and personal management. The aggregate critical care time was [35] minutes without overlap. Time includes spent on; [x] Data Review and interpretation [x] Patient assessment and monitoring of vital signs [x] Documentation [x] Medication orders and management Subjective Date of service: 06/11/21 Principal diagnosis: Septic shock; Pulm fibrosis; Hypoxemic resp failure; COVID- 19 infxn Interval history: Follow up for: acute on chronic resp failure on MVS ; Septic shock; COPD, pancreatic cancer with radiation s/p pancreatic stent placement, pulmonary fibrosis, lactic acidosis; COVID positive Seen and examined at bedside; 24hour events reviewed; nursing and respiratory care staff consulted; no adverse overnight events reported to me; resting in bed; remains on MVS, with episodes of desaturations now on FIO2 100%, hypotension with Norepinephrine now up to 20 mcg; Tachycardia with tachypnea Objective Vital Signs - 12hr 06/10/21 06/10/21 06/11/21 23:45 23:49 00:00 Temperature 98.7 F Pulse Rate 75 75 75 Pulse Rate [ 74 From Monitor] Respiratory 20 15 25 H Rate Blood Pressure 104/68 104/68 118/68 O2 Sat by Pulse 96 97 94 Oximetry 06/11/21 06/11/21 06/11/21 00:15 00:30 00:45 Temperature Pulse Rate 74 75 76 Pulse Rate [ From Monitor] Respiratory 19 16 25 H Rate Blood Pressure 107/66 107/67 103/64 O2 Sat by Pulse 96 94 92 Oximetry 06/11/21 06/11/21 06/11/21 01:00 01:15 01:30 Temperature Pulse Rate 76 78 85 Pulse Rate [ From Monitor] Respiratory 21 21 17 Rate Blood Pressure 111/67 108/67 114/67 O2 Sat by Pulse 91 92 92 Oximetry 06/11/21 06/11/21 06/11/21 01:45 02:00 02:15 Temperature Pulse Rate 77 80 85 Pulse Rate [ From Monitor] Respiratory 19 21 25 H Rate Blood Pressure 100/63 109/64 114/63 O2 Sat by Pulse 91 96 97 Oximetry 06/11/21 06/11/21 06/11/21 02:30 02:45 03:00 Temperature Pulse Rate 85 83 101 H Pulse Rate [ From Monitor] Respiratory 22 25 H 25 H Rate Blood Pressure 105/63 101/60 103/69 O2 Sat by Pulse 97 97 97 Oximetry 06/11/21 06/11/21 06/11/21 03:15 03:30 03:43 Temperature 97 F L Pulse Rate 75 96 H Pulse Rate [ From Monitor] Respiratory 25 H 25 H Rate Blood Pressure 106/60 99/69 O2 Sat by Pulse 96 96 Oximetry 06/11/21 06/11/21 06/11/21 03:45 04:00 04:15 Temperature Pulse Rate 86 86 86 Pulse Rate [ 88 From Monitor] Respiratory 23 16 26 H Rate Blood Pressure 112/69 104/69 110/67 O2 Sat by Pulse 97 94 96 Oximetry 06/11/21 06/11/21 06/11/21 04:30 04:45 05:00 Temperature Pulse Rate 88 86 89 Pulse Rate [ From Monitor] Respiratory 24 27 H 27 H Rate Blood Pressure 100/65 110/65 108/70 O2 Sat by Pulse 94 95 94 Oximetry 06/11/21 06/11/21 06/11/21 05:15 05:30 05:45 Temperature Pulse Rate 86 86 87 Pulse Rate [ From Monitor] Respiratory 29 H 31 H 32 H Rate Blood Pressure 108/67 114/69 121/70 O2 Sat by Pulse 93 92 95 Oximetry 06/11/21 06/11/21 06/11/21 06:00 06:15 06:30 Temperature Pulse Rate 107 H 110 H 115 H Pulse Rate [ From Monitor] Respiratory 35 H 37 H 40 H Rate Blood Pressure 121/70 117/69 115/66 O2 Sat by Pulse 94 91 93 Oximetry 06/11/21 06/11/21 06/11/21 06:45 07:00 07:15 Temperature Pulse Rate 120 H 122 H 122 H Pulse Rate [ From Monitor] Respiratory 38 H 37 H 37 H Rate Blood Pressure 109/76 119/79 120/75 O2 Sat by Pulse 92 93 92 Oximetry 06/11/21 06/11/21 06/11/21 07:30 07:36 07:45 Temperature 99.6 F Pulse Rate 130 H 134 H Pulse Rate [ From Monitor] Respiratory 33 H 35 H Rate Blood Pressure 123/75 133/79 O2 Sat by Pulse 88 88 Oximetry 06/11/21 06/11/21 06/11/21 08:00 08:15 08:30 Temperature 99.6 F Pulse Rate 135 H 139 H 140 H Pulse Rate [ 88 From Monitor] Respiratory 16 35 H 25 H Rate Blood Pressure 133/79 104/56 71/43 O2 Sat by Pulse 97 80 L 89 Oximetry 06/11/21 06/11/21 06/11/21 08:45 09:00 09:16 Temperature Pulse Rate 142 H 125 H 131 H Pulse Rate [ From Monitor] Respiratory 25 H 25 H 26 H Rate Blood Pressure 65/40 80/46 80/46 O2 Sat by Pulse 88 88 85 Oximetry 06/11/21 06/11/21 06/11/21 09:30 09:45 10:00 Temperature Pulse Rate 138 H 139 H 142 H Pulse Rate [ From Monitor] Respiratory 27 H 25 H 24 Rate Blood Pressure 74/47 83/54 77/48 O2 Sat by Pulse 85 85 84 Oximetry 06/11/21 06/11/21 06/11/21 10:15 10:30 10:45 Temperature Pulse Rate 141 H 137 H 138 H Pulse Rate [ From Monitor] Respiratory 25 H 26 H 24 Rate Blood Pressure 79/51 104/41 103/55 O2 Sat by Pulse 85 89 89 Oximetry 06/11/21 06/11/21 06/11/21 11:00 11:15 11:30 Temperature Pulse Rate 135 H 132 H 136 H Pulse Rate [ From Monitor] Respiratory 23 25 H 23 Rate Blood Pressure 97/47 92/56 82/49 O2 Sat by Pulse 90 92 89 Oximetry Constitutional: appears uncomfortable, other (mildly increased respiratory effort at rest on MVS, temproal wasting) Eyes: non-icteric ENT: oropharynx dry, other (ETT 23 cm JOSH) Neck: supple, no lymphadenopathy, no JVD Effort: mildly labored Ascultation: Bilateral: diminished breath sounds, rales (inspiratory, bases), rhonchi Percussion: Bilateral: not dull Cardiovascular: regular rate and rhythm, other (S1,S2, tachycardia) Gastrointestinal: normoactive bowel sounds, soft, non-tender, other (mild distension) Integumentary: other (SQ emphysema to upper chest) Extremities: no cyanosis, pulses normal, edema (1+ edema), other (right femoral CVL) Neurologic: pupils equal and round, other (sedated, unresponsive) Psychiatric: other (unable to assess re: AMS) CBC and BMP: 06/12/21 06:03 06/12/21 10:20 ABG, PT/INR, D-dimer: ABG ABG pH 7.366 (7.320-7.450) 06/11/21 06:20 POC ABG pCO2 61.8 mmHg (32.0-48.0) H 06/11/21 06:20 ABG pCO2 55.5 mm Hg 06/07/21 10:50 POC ABG pO2 55.2 mmHg (83-108) L 06/11/21 06:20 ABG pO2 66.6 mm Hg (80.0-90.0) L 06/07/21 10:50 POC ABG HCO3 34.6 06/11/21 06:20 ABG O2 Saturation 88.2 (0-100) 06/11/21 06:20 PT/INR, D-dimer PT 15.9 Sec. (12.2-14.9) H 06/05/21 06:00 INR 1.15 (0.87-1.13) H 06/05/21 06:00 D-Dimer 1938.43 ng/mlDDU (0-234) H 06/07/21 04:36 Abnormal lab findings: Abnormal Labs 05/11/21 05/11/21 05/11/21 05:43 05:43 05:43 WBC RBC Hgb Hct MCV 98 H MCH RDW 17.7 H Plt Count Lymph % (Auto) 10.8 L Eos % (Auto) Lymph # (Auto) 0.6 L Eos # (Auto) Seg Neutrophils % 84.1 H Seg Neuts % (Manual) Lymphocytes % (Manual) Seg Neutrophils # Man Lymphocytes # (Manual) PT 16.0 H INR 1.16 H APTT D-Dimer ABG pH POC ABG pCO2 POC ABG pO2 ABG pO2 ABG HCO3 ABG O2 Saturation ABG Base Excess ABG Hemoglobin ABG Oxyhemoglobin ABG Sodium ABG Potassium ABG Chloride ABG Glucose Oxyhemoglobin Carboxyhemoglobin Sodium Potassium Chloride Carbon Dioxide 21 L BUN 4 L Creatinine 0.4 L Glucose POC Glucose Lactic Acid Calcium 8.3 L Phosphorus Magnesium Ferritin Total Bilirubin 2.10 H Direct Bilirubin 1.4 H AST 335 H ALT 57 H Alkaline Phosphatase 339 H Lactate Dehydrogenase C-Reactive Protein NT-Pro-B Natriuret Pep Total Protein Albumin 2.4 L Lipase 3 L Arterial Blood Glucose Arterial Blood Ionized Calcium Ur Specific [place] Vancomycin Trough Coronavirus (PCR) 05/11/21 05/11/21 05/12/21 11:18 12:28 04:08 WBC RBC Hgb Hct MCV MCH RDW Plt Count Lymph % (Auto) Eos % (Auto) Lymph # (Auto) Eos # (Auto) Seg Neutrophils % Seg Neuts % (Manual) Lymphocytes % (Manual) Seg Neutrophils # Man Lymphocytes # (Manual) PT INR APTT D-Dimer ABG pH POC ABG pCO2 POC ABG pO2 ABG pO2 ABG HCO3 ABG O2 Saturation ABG Base Excess ABG Hemoglobin ABG Oxyhemoglobin ABG Sodium ABG Potassium ABG Chloride ABG Glucose Oxyhemoglobin Carboxyhemoglobin Sodium Potassium Chloride Carbon Dioxide BUN Creatinine Glucose POC Glucose Lactic Acid 4.20 H* 4.50 H* Calcium Phosphorus Magnesium Ferritin Total Bilirubin Direct Bilirubin AST ALT Alkaline Phosphatase Lactate Dehydrogenase C-Reactive Protein NT-Pro-B Natriuret Pep Total Protein Albumin Lipase Arterial Blood Glucose Arterial Blood Ionized Calcium Ur Specific [place] 1.035 H Vancomycin Trough Coronavirus (PCR) 05/12/21 05/12/21 05/12/21 04:08 04:08 09:47 WBC 22.8 H RBC 3.39 L Hgb Hct MCV 98 H MCH RDW 17.7 H Plt Count Lymph % (Auto) Eos % (Auto) Lymph # (Auto) Eos # (Auto) Seg Neutrophils % Seg Neuts % (Manual) 85.5 H Lymphocytes % (Manual) 2.0 L Seg Neutrophils # Man 19.5 H Lymphocytes # (Manual) 0.5 L PT INR APTT D-Dimer ABG pH POC ABG pCO2 POC ABG pO2 ABG pO2 ABG HCO3 ABG O2 Saturation ABG Base Excess ABG Hemoglobin ABG Oxyhemoglobin ABG Sodium ABG Potassium ABG Chloride ABG Glucose Oxyhemoglobin Carboxyhemoglobin Sodium Potassium 3.3 L Chloride 108.9 H Carbon Dioxide 17 L BUN 4 L Creatinine 0.5 L Glucose 106 H POC Glucose Lactic Acid 2.60 H* Calcium 6.4 L D Phosphorus Magnesium Ferritin Total Bilirubin 2.10 H Direct Bilirubin AST 156 H ALT 61 H Alkaline Phosphatase 317 H Lactate Dehydrogenase C-Reactive Protein NT-Pro-B Natriuret Pep Total Protein 5.4 L D Albumin 1.8 L Lipase Arterial Blood Glucose Arterial Blood Ionized Calcium Ur Specific [place] Vancomycin Trough Coronavirus (PCR) 05/12/21 05/12/21 05/12/21 11:47 12:30 12:36 WBC RBC Hgb Hct MCV MCH RDW Plt Count Lymph % (Auto) Eos % (Auto) Lymph # (Auto) Eos # (Auto) Seg Neutrophils % Seg Neuts % (Manual) Lymphocytes % (Manual) Seg Neutrophils # Man Lymphocytes # (Manual) PT INR APTT D-Dimer ABG pH POC ABG pCO2 POC ABG pO2 ABG pO2 ABG HCO3 ABG O2 Saturation ABG Base Excess ABG Hemoglobin ABG Oxyhemoglobin ABG Sodium ABG Potassium ABG Chloride ABG Glucose Oxyhemoglobin Carboxyhemoglobin Sodium Potassium Chloride Carbon Dioxide BUN Creatinine Glucose POC Glucose 59 L 120 H Lactic Acid 2.50 H* Calcium Phosphorus Magnesium Ferritin Total Bilirubin Direct Bilirubin AST ALT Alkaline Phosphatase Lactate Dehydrogenase C-Reactive Protein NT-Pro-B Natriuret Pep Total Protein Albumin Lipase Arterial Blood Glucose Arterial Blood Ionized Calcium Ur Specific [place] Vancomycin Trough Coronavirus (PCR) 05/12/21 05/12/21 05/13/21 23:45 Unknown 04:00 WBC 19.8 H RBC 3.52 L Hgb Hct MCV 98 H MCH RDW 18.5 H Plt Count Lymph % (Auto) Eos % (Auto) Lymph # (Auto) Eos # (Auto) Seg Neutrophils % Seg Neuts % (Manual) Lymphocytes % (Manual) Seg Neutrophils # Man Lymphocytes # (Manual) PT INR APTT D-Dimer ABG pH POC ABG pCO2 POC ABG pO2 ABG pO2 ABG HCO3 ABG O2 Saturation ABG Base Excess ABG Hemoglobin ABG Oxyhemoglobin ABG Sodium ABG Potassium ABG Chloride ABG Glucose Oxyhemoglobin Carboxyhemoglobin Sodium Potassium Chloride Carbon Dioxide BUN Creatinine Glucose POC Glucose 119 H Lactic Acid 3.30 H* Calcium Phosphorus Magnesium Ferritin Total Bilirubin Direct Bilirubin AST ALT Alkaline Phosphatase Lactate Dehydrogenase C-Reactive Protein NT-Pro-B Natriuret Pep Total Protein Albumin Lipase Arterial Blood Glucose Arterial Blood Ionized Calcium Ur Specific [place] Vancomycin Trough Coronavirus (PCR) 05/13/21 05/13/21 05/13/21 04:00 05:42 12:19 WBC RBC Hgb Hct MCV MCH RDW Plt Count Lymph % (Auto) Eos % (Auto) Lymph # (Auto) Eos # (Auto) Seg Neutrophils % Seg Neuts % (Manual) Lymphocytes % (Manual) Seg Neutrophils # Man Lymphocytes # (Manual) PT INR APTT D-Dimer ABG pH POC ABG pCO2 POC ABG pO2 ABG pO2 ABG HCO3 ABG O2 Saturation ABG Base Excess ABG Hemoglobin ABG Oxyhemoglobin ABG Sodium ABG Potassium ABG Chloride ABG Glucose Oxyhemoglobin Carboxyhemoglobin Sodium Potassium 3.4 L Chloride 107.1 H Carbon Dioxide 19 L BUN 4 L Creatinine 0.4 L Glucose 157 H POC Glucose 143 H 110 H Lactic Acid Calcium 7.4 L D Phosphorus 1.60 L Magnesium 1.50 L Ferritin Total Bilirubin 1.40 H Direct Bilirubin AST 95 H ALT Alkaline Phosphatase 328 H Lactate Dehydrogenase C-Reactive Protein NT-Pro-B Natriuret Pep Total Protein 5.5 L Albumin 1.6 L Lipase Arterial Blood Glucose Arterial Blood Ionized Calcium Ur Specific [place] Vancomycin Trough Coronavirus (PCR) 05/14/21 05/14/21 05/14/21 06:15 06:15 10:25 WBC 11.7 H RBC 3.41 L Hgb Hct MCV 98 H MCH RDW 18.6 H Plt Count Lymph % (Auto) Eos % (Auto) Lymph # (Auto) Eos # (Auto) Seg Neutrophils % Seg Neuts % (Manual) Lymphocytes % (Manual) Seg Neutrophils # Man Lymphocytes # (Manual) PT INR APTT D-Dimer ABG pH POC ABG pCO2 POC ABG pO2 ABG pO2 76.0 L ABG HCO3 27.2 H ABG O2 Saturation ABG Base Excess ABG Hemoglobin 11.5 L ABG Oxyhemoglobin ABG Sodium ABG Potassium ABG Chloride ABG Glucose Oxyhemoglobin 94.4 L Carboxyhemoglobin Sodium Potassium 3.2 L Chloride Carbon Dioxide BUN 6 L Creatinine 0.5 L Glucose 103 H POC Glucose Lactic Acid Calcium 7.3 L Phosphorus 1.70 L Magnesium Ferritin Total Bilirubin Direct Bilirubin AST 66 H ALT Alkaline Phosphatase 295 H Lactate Dehydrogenase C-Reactive Protein NT-Pro-B Natriuret Pep Total Protein 5.3 L Albumin 1.8 L Lipase Arterial Blood Glucose Arterial Blood Ionized Calcium Ur Specific [place] Vancomycin Trough Coronavirus (PCR) 05/14/21 05/14/21 05/14/21 15:20 15:20 17:26 WBC RBC Hgb Hct MCV MCH RDW Plt Count Lymph % (Auto) Eos % (Auto) Lymph # (Auto) Eos # (Auto) Seg Neutrophils % Seg Neuts % (Manual) Lymphocytes % (Manual) Seg Neutrophils # Man Lymphocytes # (Manual) PT INR APTT D-Dimer ABG pH POC ABG pCO2 POC ABG pO2 ABG pO2 ABG HCO3 ABG O2 Saturation ABG Base Excess ABG Hemoglobin ABG Oxyhemoglobin ABG Sodium ABG Potassium ABG Chloride ABG Glucose Oxyhemoglobin Carboxyhemoglobin Sodium 146 H D Potassium Chloride 108.4 H Carbon Dioxide BUN 5 L Creatinine 0.5 L Glucose POC Glucose 63 L Lactic Acid Calcium 7.6 L Phosphorus Magnesium Ferritin Total Bilirubin Direct Bilirubin AST ALT Alkaline Phosphatase Lactate Dehydrogenase C-Reactive Protein NT-Pro-B Natriuret Pep Total Protein Albumin Lipase Arterial Blood Glucose Arterial Blood Ionized Calcium Ur Specific [place] Vancomycin Trough 25.3 H Coronavirus (PCR) 05/14/21 05/15/21 05/15/21 21:27 00:03 00:29 WBC RBC Hgb Hct MCV MCH RDW Plt Count Lymph % (Auto) Eos % (Auto) Lymph # (Auto) Eos # (Auto) Seg Neutrophils % Seg Neuts % (Manual) Lymphocytes % (Manual) Seg Neutrophils # Man Lymphocytes # (Manual) PT INR APTT D-Dimer ABG pH POC ABG pCO2 POC ABG pO2 ABG pO2 ABG HCO3 ABG O2 Saturation ABG Base Excess ABG Hemoglobin ABG Oxyhemoglobin ABG Sodium ABG Potassium ABG Chloride ABG Glucose Oxyhemoglobin Carboxyhemoglobin Sodium Potassium Chloride Carbon Dioxide BUN Creatinine Glucose POC Glucose 52 L 54 L 129 H Lactic Acid Calcium Phosphorus Magnesium Ferritin Total Bilirubin Direct Bilirubin AST ALT Alkaline Phosphatase Lactate Dehydrogenase C-Reactive Protein NT-Pro-B Natriuret Pep Total Protein Albumin Lipase Arterial Blood Glucose Arterial Blood Ionized Calcium Ur Specific [place] Vancomycin Trough Coronavirus (PCR) 05/15/21 05/15/21 05/15/21 04:45 04:45 11:58 WBC RBC 3.24 L Hgb Hct MCV 98 H MCH RDW 18.5 H Plt Count 122 L Lymph % (Auto) 7.4 L Eos % (Auto) Lymph # (Auto) 0.6 L Eos # (Auto) Seg Neutrophils % 81.2 H Seg Neuts % (Manual) Lymphocytes % (Manual) Seg Neutrophils # Man Lymphocytes # (Manual) PT INR APTT D-Dimer ABG pH POC ABG pCO2 POC ABG pO2 ABG pO2 ABG HCO3 ABG O2 Saturation ABG Base Excess ABG Hemoglobin ABG Oxyhemoglobin ABG Sodium ABG Potassium ABG Chloride ABG Glucose Oxyhemoglobin Carboxyhemoglobin Sodium 146 H Potassium 3.1 L Chloride 108.8 H Carbon Dioxide BUN 6 L Creatinine Glucose 121 H POC Glucose 68 L Lactic Acid Calcium 7.5 L Phosphorus 2.30 L D Magnesium Ferritin Total Bilirubin 1.90 H Direct Bilirubin AST 55 H ALT Alkaline Phosphatase 231 H Lactate Dehydrogenase C-Reactive Protein NT-Pro-B Natriuret Pep Total Protein 5.4 L Albumin 1.5 L Lipase Arterial Blood Glucose Arterial Blood Ionized Calcium Ur Specific [place] Vancomycin Trough Coronavirus (PCR) 05/15/21 05/16/21 05/16/21 13:50 00:06 00:43 WBC RBC Hgb Hct MCV MCH RDW Plt Count Lymph % (Auto) Eos % (Auto) Lymph # (Auto) Eos # (Auto) Seg Neutrophils % Seg Neuts % (Manual) Lymphocytes % (Manual) Seg Neutrophils # Man Lymphocytes # (Manual) PT INR APTT D-Dimer ABG pH POC ABG pCO2 POC ABG pO2 ABG pO2 ABG HCO3 ABG O2 Saturation ABG Base Excess ABG Hemoglobin ABG Oxyhemoglobin ABG Sodium ABG Potassium ABG Chloride ABG Glucose Oxyhemoglobin Carboxyhemoglobin Sodium Potassium Chloride Carbon Dioxide BUN Creatinine Glucose POC Glucose 147 H 54 L 116 H Lactic Acid Calcium Phosphorus Magnesium Ferritin Total Bilirubin Direct Bilirubin AST ALT Alkaline Phosphatase Lactate Dehydrogenase C-Reactive Protein NT-Pro-B Natriuret Pep Total Protein Albumin Lipase Arterial Blood Glucose Arterial Blood Ionized Calcium Ur Specific [place] Vancomycin Trough Coronavirus (PCR) 05/16/21 05/16/21 05/16/21 04:31 04:31 05:58 WBC RBC 3.12 L Hgb 9.8 L Hct MCV 98 H MCH RDW 18.2 H Plt Count 115 L Lymph % (Auto) Eos % (Auto) Lymph # (Auto) Eos # (Auto) Seg Neutrophils % Seg Neuts % (Manual) Lymphocytes % (Manual) Seg Neutrophils # Man Lymphocytes # (Manual) PT INR APTT D-Dimer ABG pH POC ABG pCO2 POC ABG pO2 ABG pO2 ABG HCO3 ABG O2 Saturation ABG Base Excess ABG Hemoglobin ABG Oxyhemoglobin ABG Sodium ABG Potassium ABG Chloride ABG Glucose Oxyhemoglobin Carboxyhemoglobin Sodium 146 H Potassium 3.2 L Chloride Carbon Dioxide BUN 5 L Creatinine 0.5 L Glucose POC Glucose 61 L Lactic Acid Calcium 7.2 L Phosphorus 2.30 L Magnesium Ferritin Total Bilirubin Direct Bilirubin AST ALT Alkaline Phosphatase Lactate Dehydrogenase C-Reactive Protein NT-Pro-B Natriuret Pep Total Protein Albumin Lipase Arterial Blood Glucose Arterial Blood Ionized Calcium Ur Specific [place] Vancomycin Trough Coronavirus (PCR) 05/16/21 05/16/21 05/17/21 08:11 23:42 04:15 WBC RBC Hgb Hct MCV MCH RDW Plt Count Lymph % (Auto) Eos % (Auto) Lymph # (Auto) Eos # (Auto) Seg Neutrophils % Seg Neuts % (Manual) Lymphocytes % (Manual) Seg Neutrophils # Man Lymphocytes # (Manual) PT INR APTT D-Dimer ABG pH POC ABG pCO2 POC ABG pO2 ABG pO2 ABG HCO3 ABG O2 Saturation ABG Base Excess ABG Hemoglobin ABG Oxyhemoglobin ABG Sodium ABG Potassium ABG Chloride ABG Glucose Oxyhemoglobin Carboxyhemoglobin Sodium Potassium Chloride Carbon Dioxide BUN Creatinine Glucose POC Glucose 58 L 200 H Lactic Acid Calcium Phosphorus Magnesium Ferritin Total Bilirubin 1.70 H Direct Bilirubin 1.5 H AST 43 H ALT Alkaline Phosphatase 196 H Lactate Dehydrogenase C-Reactive Protein NT-Pro-B Natriuret Pep Total Protein 5.4 L Albumin 1.6 L Lipase Arterial Blood Glucose Arterial Blood Ionized Calcium Ur Specific [place] Vancomycin Trough Coronavirus (PCR) 05/17/21 05/17/21 05/17/21 04:15 04:15 05:07 WBC RBC 3.26 L Hgb Hct MCV 98 H MCH RDW 18.9 H Plt Count 114 L Lymph % (Auto) Eos % (Auto) Lymph # (Auto) Eos # (Auto) Seg Neutrophils % Seg Neuts % (Manual) Lymphocytes % (Manual) Seg Neutrophils # Man Lymphocytes # (Manual) PT INR APTT D-Dimer ABG pH POC ABG pCO2 POC ABG pO2 ABG pO2 ABG HCO3 ABG O2 Saturation ABG Base Excess ABG Hemoglobin ABG Oxyhemoglobin ABG Sodium ABG Potassium ABG Chloride ABG Glucose Oxyhemoglobin Carboxyhemoglobin Sodium Potassium Chloride Carbon Dioxide 35 H BUN 5 L Creatinine Glucose 274 H POC Glucose 249 H Lactic Acid Calcium 7.7 L Phosphorus 1.50 L D Magnesium Ferritin Total Bilirubin Direct Bilirubin AST ALT Alkaline Phosphatase Lactate Dehydrogenase C-Reactive Protein NT-Pro-B Natriuret Pep Total Protein Albumin Lipase Arterial Blood Glucose Arterial Blood Ionized Calcium Ur Specific [place] Vancomycin Trough Coronavirus (PCR) 05/17/21 05/17/21 05/17/21 11:56 16:29 23:37 WBC RBC Hgb Hct MCV MCH RDW Plt Count Lymph % (Auto) Eos % (Auto) Lymph # (Auto) Eos # (Auto) Seg Neutrophils % Seg Neuts % (Manual) Lymphocytes % (Manual) Seg Neutrophils # Man Lymphocytes # (Manual) PT INR APTT D-Dimer ABG pH POC ABG pCO2 POC ABG pO2 ABG pO2 ABG HCO3 ABG O2 Saturation ABG Base Excess ABG Hemoglobin ABG Oxyhemoglobin ABG Sodium ABG Potassium ABG Chloride ABG Glucose Oxyhemoglobin Carboxyhemoglobin Sodium Potassium Chloride Carbon Dioxide BUN Creatinine Glucose POC Glucose 176 H 219 H 150 H Lactic Acid Calcium Phosphorus Magnesium Ferritin Total Bilirubin Direct Bilirubin AST ALT Alkaline Phosphatase Lactate Dehydrogenase C-Reactive Protein NT-Pro-B Natriuret Pep Total Protein Albumin Lipase Arterial Blood Glucose Arterial Blood Ionized Calcium Ur Specific [place] Vancomycin Trough Coronavirus (PCR) 05/18/21 05/18/21 05/18/21 04:00 05:22 09:00 WBC RBC 3.34 L Hgb Hct MCV MCH RDW 18.8 H Plt Count Lymph % (Auto) Eos % (Auto) Lymph # (Auto) Eos # (Auto) Seg Neutrophils % Seg Neuts % (Manual) Lymphocytes % (Manual) Seg Neutrophils # Man Lymphocytes # (Manual) PT INR APTT D-Dimer ABG pH POC ABG pCO2 POC ABG pO2 ABG pO2 ABG HCO3 ABG O2 Saturation ABG Base Excess ABG Hemoglobin ABG Oxyhemoglobin ABG Sodium ABG Potassium ABG Chloride ABG Glucose Oxyhemoglobin Carboxyhemoglobin Sodium Potassium 5.4 H D Chloride 97.5 L Carbon Dioxide 33 H BUN Creatinine 0.4 L Glucose 461 H POC Glucose 181 H Lactic Acid Calcium 7.2 L Phosphorus 5.00 H D Magnesium Ferritin Total Bilirubin Direct Bilirubin AST ALT Alkaline Phosphatase Lactate Dehydrogenase C-Reactive Protein NT-Pro-B Natriuret Pep Total Protein Albumin Lipase Arterial Blood Glucose Arterial Blood Ionized Calcium Ur Specific [place] Vancomycin Trough Coronavirus (PCR) 05/18/21 05/18/21 05/18/21 11:16 12:50 16:29 WBC RBC Hgb Hct MCV MCH RDW Plt Count Lymph % (Auto) Eos % (Auto) Lymph # (Auto) Eos # (Auto) Seg Neutrophils % Seg Neuts % (Manual) Lymphocytes % (Manual) Seg Neutrophils # Man Lymphocytes # (Manual) PT INR APTT D-Dimer ABG pH POC ABG pCO2 POC ABG pO2 ABG pO2 ABG HCO3 ABG O2 Saturation ABG Base Excess ABG Hemoglobin ABG Oxyhemoglobin ABG Sodium ABG Potassium ABG Chloride ABG Glucose Oxyhemoglobin Carboxyhemoglobin Sodium Potassium 3.4 L D Chloride Carbon Dioxide 36 H BUN 19 H Creatinine 0.4 L Glucose 231 H POC Glucose 168 H 196 H Lactic Acid Calcium 7.5 L Phosphorus 1.80 L D Magnesium Ferritin Total Bilirubin Direct Bilirubin AST ALT Alkaline Phosphatase Lactate Dehydrogenase C-Reactive Protein NT-Pro-B Natriuret Pep Total Protein Albumin Lipase Arterial Blood Glucose Arterial Blood Ionized Calcium Ur Specific [place] Vancomycin Trough Coronavirus (PCR) 05/19/21 05/19/21 05/19/21 00:05 04:08 05:07 WBC RBC Hgb Hct MCV MCH RDW Plt Count Lymph % (Auto) Eos % (Auto) Lymph # (Auto) Eos # (Auto) Seg Neutrophils % Seg Neuts % (Manual) Lymphocytes % (Manual) Seg Neutrophils # Man Lymphocytes # (Manual) PT INR APTT D-Dimer ABG pH POC ABG pCO2 POC ABG pO2 ABG pO2 ABG HCO3 ABG O2 Saturation ABG Base Excess ABG Hemoglobin ABG Oxyhemoglobin ABG Sodium ABG Potassium ABG Chloride ABG Glucose Oxyhemoglobin Carboxyhemoglobin Sodium 146 H Potassium Chloride Carbon Dioxide 35 H BUN 25 H Creatinine 0.4 L Glucose 218 H POC Glucose 164 H 203 H Lactic Acid Calcium 7.2 L Phosphorus Magnesium Ferritin Total Bilirubin Direct Bilirubin AST ALT Alkaline Phosphatase Lactate Dehydrogenase C-Reactive Protein NT-Pro-B Natriuret Pep Total Protein Albumin Lipase Arterial Blood Glucose Arterial Blood Ionized Calcium Ur Specific [place] Vancomycin Trough Coronavirus (PCR) 05/19/21 05/19/21 05/19/21 12:16 14:14 17:11 WBC RBC Hgb Hct MCV MCH RDW Plt Count Lymph % (Auto) Eos % (Auto) Lymph # (Auto) Eos # (Auto) Seg Neutrophils % Seg Neuts % (Manual) Lymphocytes % (Manual) Seg Neutrophils # Man Lymphocytes # (Manual) PT INR APTT D-Dimer ABG pH 7.482 H POC ABG pCO2 POC ABG pO2 ABG pO2 111.7 H ABG HCO3 31.4 H ABG O2 Saturation ABG Base Excess 7.2 H ABG Hemoglobin 11.1 L ABG Oxyhemoglobin ABG Sodium ABG Potassium ABG Chloride ABG Glucose Oxyhemoglobin Carboxyhemoglobin Sodium Potassium Chloride Carbon Dioxide BUN Creatinine Glucose POC Glucose 206 H 194 H Lactic Acid Calcium Phosphorus Magnesium Ferritin Total Bilirubin Direct Bilirubin AST ALT Alkaline Phosphatase Lactate Dehydrogenase C-Reactive Protein NT-Pro-B Natriuret Pep Total Protein Albumin Lipase Arterial Blood Glucose Arterial Blood Ionized Calcium Ur Specific [place] Vancomycin Trough Coronavirus (PCR) 05/20/21 05/20/21 05/20/21 00:01 04:30 06:09 WBC RBC Hgb Hct MCV MCH RDW Plt Count Lymph % (Auto) Eos % (Auto) Lymph # (Auto) Eos # (Auto) Seg Neutrophils % Seg Neuts % (Manual) Lymphocytes % (Manual) Seg Neutrophils # Man Lymphocytes # (Manual) PT INR APTT D-Dimer ABG pH POC ABG pCO2 POC ABG pO2 ABG pO2 ABG HCO3 ABG O2 Saturation ABG Base Excess ABG Hemoglobin ABG Oxyhemoglobin ABG Sodium ABG Potassium ABG Chloride ABG Glucose Oxyhemoglobin Carboxyhemoglobin Sodium Potassium 3.5 L Chloride Carbon Dioxide BUN 24 H Creatinine 0.3 L Glucose 254 H POC Glucose 209 H 210 H Lactic Acid Calcium 7.5 L Phosphorus 1.90 L D Magnesium Ferritin Total Bilirubin 1.60 H Direct Bilirubin AST 201 H ALT 170 H Alkaline Phosphatase 169 H Lactate Dehydrogenase C-Reactive Protein NT-Pro-B Natriuret Pep Total Protein 5.3 L Albumin 1.9 L Lipase Arterial Blood Glucose Arterial Blood Ionized Calcium Ur Specific [place] Vancomycin Trough Coronavirus (PCR) 05/20/21 05/20/21 05/20/21 11:41 16:47 22:21 WBC RBC Hgb Hct MCV MCH RDW Plt Count Lymph % (Auto) Eos % (Auto) Lymph # (Auto) Eos # (Auto) Seg Neutrophils % Seg Neuts % (Manual) Lymphocytes % (Manual) Seg Neutrophils # Man Lymphocytes # (Manual) PT INR APTT D-Dimer ABG pH POC ABG pCO2 POC ABG pO2 ABG pO2 ABG HCO3 ABG O2 Saturation ABG Base Excess ABG Hemoglobin ABG Oxyhemoglobin ABG Sodium ABG Potassium ABG Chloride ABG Glucose Oxyhemoglobin Carboxyhemoglobin Sodium Potassium Chloride Carbon Dioxide BUN Creatinine Glucose POC Glucose 158 H 232 H 211 H Lactic Acid Calcium Phosphorus Magnesium Ferritin Total Bilirubin Direct Bilirubin AST ALT Alkaline Phosphatase Lactate Dehydrogenase C-Reactive Protein NT-Pro-B Natriuret Pep Total Protein Albumin Lipase Arterial Blood Glucose Arterial Blood Ionized Calcium Ur Specific [place] Vancomycin Trough Coronavirus (PCR) 05/21/21 05/21/21 05/21/21 00:35 04:00 04:00 WBC RBC 3.28 L Hgb Hct MCV MCH RDW 18.7 H Plt Count 125 L Lymph % (Auto) Eos % (Auto) Lymph # (Auto) Eos # (Auto) Seg Neutrophils % Seg Neuts % (Manual) Lymphocytes % (Manual) Seg Neutrophils # Man Lymphocytes # (Manual) PT INR APTT D-Dimer ABG pH POC ABG pCO2 POC ABG pO2 ABG pO2 ABG HCO3 ABG O2 Saturation ABG Base Excess ABG Hemoglobin ABG Oxyhemoglobin ABG Sodium ABG Potassium ABG Chloride ABG Glucose Oxyhemoglobin Carboxyhemoglobin Sodium Potassium 5.1 H D Chloride 108.7 H Carbon Dioxide BUN 21 H Creatinine 0.2 L Glucose 242 H POC Glucose 230 H Lactic Acid Calcium 7.3 L Phosphorus Magnesium Ferritin Total Bilirubin Direct Bilirubin AST ALT Alkaline Phosphatase Lactate Dehydrogenase C-Reactive Protein NT-Pro-B Natriuret Pep Total Protein Albumin Lipase Arterial Blood Glucose Arterial Blood Ionized Calcium Ur Specific [place] Vancomycin Trough Coronavirus (PCR) 05/21/21 05/21/21 05/21/21 05:08 11:47 17:43 WBC RBC Hgb Hct MCV MCH RDW Plt Count Lymph % (Auto) Eos % (Auto) Lymph # (Auto) Eos # (Auto) Seg Neutrophils % Seg Neuts % (Manual) Lymphocytes % (Manual) Seg Neutrophils # Man Lymphocytes # (Manual) PT INR APTT D-Dimer ABG pH POC ABG pCO2 POC ABG pO2 ABG pO2 ABG HCO3 ABG O2 Saturation ABG Base Excess ABG Hemoglobin ABG Oxyhemoglobin ABG Sodium ABG Potassium ABG Chloride ABG Glucose Oxyhemoglobin Carboxyhemoglobin Sodium Potassium Chloride Carbon Dioxide BUN Creatinine Glucose POC Glucose 196 H 139 H 147 H Lactic Acid Calcium Phosphorus Magnesium Ferritin Total Bilirubin Direct Bilirubin AST ALT Alkaline Phosphatase Lactate Dehydrogenase C-Reactive Protein NT-Pro-B Natriuret Pep Total Protein Albumin Lipase Arterial Blood Glucose Arterial Blood Ionized Calcium Ur Specific [place] Vancomycin Trough Coronavirus (PCR) 05/21/21 05/21/21 05/22/21 17:57 23:32 04:16 WBC RBC Hgb Hct MCV MCH RDW Plt Count Lymph % (Auto) Eos % (Auto) Lymph # (Auto) Eos # (Auto) Seg Neutrophils % Seg Neuts % (Manual) Lymphocytes % (Manual) Seg Neutrophils # Man Lymphocytes # (Manual) PT INR APTT D-Dimer ABG pH POC ABG pCO2 POC ABG pO2 ABG pO2 ABG HCO3 ABG O2 Saturation ABG Base Excess ABG Hemoglobin ABG Oxyhemoglobin ABG Sodium ABG Potassium ABG Chloride ABG Glucose Oxyhemoglobin Carboxyhemoglobin Sodium Potassium 5.2 H Chloride Carbon Dioxide BUN 19 H Creatinine 0.2 L Glucose 154 H POC Glucose 218 H 185 H Lactic Acid Calcium 7.5 L Phosphorus Magnesium Ferritin Total Bilirubin 3.00 H Direct Bilirubin 2.3 H AST 437 H ALT 462 H Alkaline Phosphatase 186 H Lactate Dehydrogenase C-Reactive Protein NT-Pro-B Natriuret Pep Total Protein 5.5 L Albumin 1.9 L Lipase Arterial Blood Glucose Arterial Blood Ionized Calcium Ur Specific [place] Vancomycin Trough Coronavirus (PCR) 05/22/21 05/22/21 05/22/21 04:30 04:30 04:30 WBC RBC Hgb Hct MCV MCH RDW Plt Count Lymph % (Auto) Eos % (Auto) Lymph # (Auto) Eos # (Auto) Seg Neutrophils % Seg Neuts % (Manual) Lymphocytes % (Manual) Seg Neutrophils # Man Lymphocytes # (Manual) PT 19.5 H INR 1.49 H APTT D-Dimer ABG pH POC ABG pCO2 POC ABG pO2 ABG pO2 ABG HCO3 ABG O2 Saturation ABG Base Excess ABG Hemoglobin ABG Oxyhemoglobin ABG Sodium ABG Potassium ABG Chloride ABG Glucose Oxyhemoglobin Carboxyhemoglobin Sodium 134 L Potassium Chloride Carbon Dioxide BUN 19 H Creatinine 0.2 L Glucose 208 H POC Glucose Lactic Acid Calcium 7.2 L Phosphorus 2.40 L D Magnesium Ferritin Total Bilirubin 2.20 H Direct Bilirubin AST 350 H ALT 496 H Alkaline Phosphatase 167 H Lactate Dehydrogenase C-Reactive Protein NT-Pro-B Natriuret Pep Total Protein 4.8 L Albumin 1.7 L Lipase Arterial Blood Glucose Arterial Blood Ionized Calcium Ur Specific [place] Vancomycin Trough Coronavirus (PCR) 05/22/21 05/22/21 05/22/21 11:59 17:16 23:07 WBC RBC Hgb Hct MCV MCH RDW Plt Count Lymph % (Auto) Eos % (Auto) Lymph # (Auto) Eos # (Auto) Seg Neutrophils % Seg Neuts % (Manual) Lymphocytes % (Manual) Seg Neutrophils # Man Lymphocytes # (Manual) PT INR APTT D-Dimer ABG pH POC ABG pCO2 POC ABG pO2 ABG pO2 ABG HCO3 ABG O2 Saturation ABG Base Excess ABG Hemoglobin ABG Oxyhemoglobin ABG Sodium ABG Potassium ABG Chloride ABG Glucose Oxyhemoglobin Carboxyhemoglobin Sodium Potassium Chloride Carbon Dioxide BUN Creatinine Glucose POC Glucose 204 H 244 H 226 H Lactic Acid Calcium Phosphorus Magnesium Ferritin Total Bilirubin Direct Bilirubin AST ALT Alkaline Phosphatase Lactate Dehydrogenase C-Reactive Protein NT-Pro-B Natriuret Pep Total Protein Albumin Lipase Arterial Blood Glucose Arterial Blood Ionized Calcium Ur Specific [place] Vancomycin Trough Coronavirus (PCR) 05/23/21 05/23/21 05/23/21 05:09 10:15 10:15 WBC RBC Hgb Hct MCV MCH RDW Plt Count Lymph % (Auto) Eos % (Auto) Lymph # (Auto) Eos # (Auto) Seg Neutrophils % Seg Neuts % (Manual) Lymphocytes % (Manual) Seg Neutrophils # Man Lymphocytes # (Manual) PT 16.9 H INR 1.24 H APTT D-Dimer ABG pH POC ABG pCO2 POC ABG pO2 ABG pO2 ABG HCO3 ABG O2 Saturation ABG Base Excess ABG Hemoglobin ABG Oxyhemoglobin ABG Sodium ABG Potassium ABG Chloride ABG Glucose Oxyhemoglobin Carboxyhemoglobin Sodium 131 L Potassium Chloride 97.5 L Carbon Dioxide BUN Creatinine < 0.2 L Glucose 248 H POC Glucose 175 H Lactic Acid Calcium 7.4 L Phosphorus Magnesium 1.60 L Ferritin Total Bilirubin Direct Bilirubin AST ALT Alkaline Phosphatase Lactate Dehydrogenase C-Reactive Protein NT-Pro-B Natriuret Pep Total Protein Albumin Lipase Arterial Blood Glucose Arterial Blood Ionized Calcium Ur Specific [place] Vancomycin Trough Coronavirus (PCR) 05/23/21 05/23/21 05/24/21 10:15 21:46 04:16 WBC RBC Hgb Hct MCV MCH RDW Plt Count Lymph % (Auto) Eos % (Auto) Lymph # (Auto) Eos # (Auto) Seg Neutrophils % Seg Neuts % (Manual) Lymphocytes % (Manual) Seg Neutrophils # Man Lymphocytes # (Manual) PT INR APTT D-Dimer ABG pH POC ABG pCO2 POC ABG pO2 ABG pO2 ABG HCO3 ABG O2 Saturation ABG Base Excess ABG Hemoglobin ABG Oxyhemoglobin ABG Sodium ABG Potassium ABG Chloride ABG Glucose Oxyhemoglobin Carboxyhemoglobin Sodium 130 L Potassium 3.5 L Chloride 97.1 L Carbon Dioxide BUN Creatinine 0.2 L Glucose 235 H POC Glucose 190 H Lactic Acid Calcium 6.8 L Phosphorus Magnesium Ferritin Total Bilirubin 2.30 H Direct Bilirubin 1.6 H AST 161 H ALT 396 H Alkaline Phosphatase 186 H Lactate Dehydrogenase C-Reactive Protein NT-Pro-B Natriuret Pep Total Protein 4.7 L Albumin 2.0 L Lipase Arterial Blood Glucose Arterial Blood Ionized Calcium Ur Specific [place] Vancomycin Trough Coronavirus (PCR) 05/24/21 05/25/21 05/25/21 05:32 04:25 04:25 WBC 11.7 H RBC 3.28 L Hgb Hct MCV MCH RDW 19.9 H Plt Count Lymph % (Auto) Eos % (Auto) Lymph # (Auto) Eos # (Auto) Seg Neutrophils % Seg Neuts % (Manual) Lymphocytes % (Manual) Seg Neutrophils # Man Lymphocytes # (Manual) PT INR APTT D-Dimer ABG pH POC ABG pCO2 POC ABG pO2 ABG pO2 ABG HCO3 ABG O2 Saturation ABG Base Excess ABG Hemoglobin ABG Oxyhemoglobin ABG Sodium ABG Potassium ABG Chloride ABG Glucose Oxyhemoglobin Carboxyhemoglobin Sodium 135 L Potassium 3.4 L Chloride Carbon Dioxide BUN Creatinine 0.2 L Glucose 105 H POC Glucose 208 H Lactic Acid Calcium 7.6 L Phosphorus Magnesium Ferritin Total Bilirubin Direct Bilirubin AST ALT Alkaline Phosphatase Lactate Dehydrogenase C-Reactive Protein NT-Pro-B Natriuret Pep Total Protein Albumin Lipase Arterial Blood Glucose Arterial Blood Ionized Calcium Ur Specific [place] Vancomycin Trough Coronavirus (PCR) 05/26/21 05/26/21 05/26/21 11:37 16:57 20:59 WBC RBC Hgb Hct MCV MCH RDW Plt Count Lymph % (Auto) Eos % (Auto) Lymph # (Auto) Eos # (Auto) Seg Neutrophils % Seg Neuts % (Manual) Lymphocytes % (Manual) Seg Neutrophils # Man Lymphocytes # (Manual) PT INR APTT D-Dimer ABG pH POC ABG pCO2 POC ABG pO2 ABG pO2 ABG HCO3 ABG O2 Saturation ABG Base Excess ABG Hemoglobin ABG Oxyhemoglobin ABG Sodium ABG Potassium ABG Chloride ABG Glucose Oxyhemoglobin Carboxyhemoglobin Sodium Potassium Chloride Carbon Dioxide BUN Creatinine Glucose POC Glucose 136 H 214 H 137 H Lactic Acid Calcium Phosphorus Magnesium Ferritin Total Bilirubin Direct Bilirubin AST ALT Alkaline Phosphatase Lactate Dehydrogenase C-Reactive Protein NT-Pro-B Natriuret Pep Total Protein Albumin Lipase Arterial Blood Glucose Arterial Blood Ionized Calcium Ur Specific [place] Vancomycin Trough Coronavirus (PCR) 05/26/21 05/27/21 05/27/21 23:52 05:40 16:49 WBC RBC Hgb Hct MCV MCH RDW Plt Count Lymph % (Auto) Eos % (Auto) Lymph # (Auto) Eos # (Auto) Seg Neutrophils % Seg Neuts % (Manual) Lymphocytes % (Manual) Seg Neutrophils # Man Lymphocytes # (Manual) PT INR APTT D-Dimer ABG pH POC ABG pCO2 POC ABG pO2 ABG pO2 ABG HCO3 ABG O2 Saturation ABG Base Excess ABG Hemoglobin ABG Oxyhemoglobin ABG Sodium ABG Potassium ABG Chloride ABG Glucose Oxyhemoglobin Carboxyhemoglobin Sodium Potassium Chloride Carbon Dioxide BUN Creatinine Glucose POC Glucose 111 H 144 H 213 H Lactic Acid Calcium Phosphorus Magnesium Ferritin Total Bilirubin Direct Bilirubin AST ALT Alkaline Phosphatase Lactate Dehydrogenase C-Reactive Protein NT-Pro-B Natriuret Pep Total Protein Albumin Lipase Arterial Blood Glucose Arterial Blood Ionized Calcium Ur Specific [place] Vancomycin Trough Coronavirus (PCR) 05/27/21 05/27/21 05/28/21 21:07 23:57 11:59 WBC RBC Hgb Hct MCV MCH RDW Plt Count Lymph % (Auto) Eos % (Auto) Lymph # (Auto) Eos # (Auto) Seg Neutrophils % Seg Neuts % (Manual) Lymphocytes % (Manual) Seg Neutrophils # Man Lymphocytes # (Manual) PT INR APTT D-Dimer ABG pH POC ABG pCO2 POC ABG pO2 ABG pO2 ABG HCO3 ABG O2 Saturation ABG Base Excess ABG Hemoglobin ABG Oxyhemoglobin ABG Sodium ABG Potassium ABG Chloride ABG Glucose Oxyhemoglobin Carboxyhemoglobin Sodium Potassium Chloride Carbon Dioxide BUN Creatinine Glucose POC Glucose 135 H 157 H 130 H Lactic Acid Calcium Phosphorus Magnesium Ferritin Total Bilirubin Direct Bilirubin AST ALT Alkaline Phosphatase Lactate Dehydrogenase C-Reactive Protein NT-Pro-B Natriuret Pep Total Protein Albumin Lipase Arterial Blood Glucose Arterial Blood Ionized Calcium Ur Specific [place] Vancomycin Trough Coronavirus (PCR) 05/28/21 05/29/21 05/29/21 17:05 01:03 05:07 WBC RBC Hgb Hct MCV MCH RDW Plt Count Lymph % (Auto) Eos % (Auto) Lymph # (Auto) Eos # (Auto) Seg Neutrophils % Seg Neuts % (Manual) Lymphocytes % (Manual) Seg Neutrophils # Man Lymphocytes # (Manual) PT INR APTT D-Dimer ABG pH POC ABG pCO2 POC ABG pO2 ABG pO2 ABG HCO3 ABG O2 Saturation ABG Base Excess ABG Hemoglobin ABG Oxyhemoglobin ABG Sodium ABG Potassium ABG Chloride ABG Glucose Oxyhemoglobin Carboxyhemoglobin Sodium 148 H D Potassium 3.0 L Chloride 108.0 H Carbon Dioxide BUN Creatinine 0.2 L Glucose 155 H POC Glucose 207 H 204 H Lactic Acid Calcium 7.7 L Phosphorus Magnesium Ferritin Total Bilirubin Direct Bilirubin AST ALT Alkaline Phosphatase Lactate Dehydrogenase C-Reactive Protein NT-Pro-B Natriuret Pep Total Protein Albumin Lipase Arterial Blood Glucose Arterial Blood Ionized Calcium Ur Specific [place] Vancomycin Trough Coronavirus (PCR) 05/29/21 05/29/21 05/29/21 08:20 11:30 17:53 WBC RBC Hgb Hct MCV MCH RDW Plt Count Lymph % (Auto) Eos % (Auto) Lymph # (Auto) Eos # (Auto) Seg Neutrophils % Seg Neuts % (Manual) Lymphocytes % (Manual) Seg Neutrophils # Man Lymphocytes # (Manual) PT INR APTT D-Dimer ABG pH POC ABG pCO2 POC ABG pO2 ABG pO2 ABG HCO3 ABG O2 Saturation ABG Base Excess ABG Hemoglobin ABG Oxyhemoglobin ABG Sodium ABG Potassium ABG Chloride ABG Glucose Oxyhemoglobin Carboxyhemoglobin Sodium Potassium Chloride Carbon Dioxide BUN Creatinine Glucose POC Glucose 119 H 199 H Lactic Acid Calcium Phosphorus Magnesium Ferritin Total Bilirubin Direct Bilirubin AST ALT Alkaline Phosphatase Lactate Dehydrogenase C-Reactive Protein NT-Pro-B Natriuret Pep Total Protein Albumin Lipase Arterial Blood Glucose Arterial Blood Ionized Calcium Ur Specific [place] Vancomycin Trough Coronavirus (PCR) Positive A 05/30/21 05/30/21 05/30/21 00:37 05:54 06:50 WBC RBC Hgb Hct MCV MCH RDW Plt Count Lymph % (Auto) Eos % (Auto) Lymph # (Auto) Eos # (Auto) Seg Neutrophils % Seg Neuts % (Manual) Lymphocytes % (Manual) Seg Neutrophils # Man Lymphocytes # (Manual) PT INR APTT D-Dimer ABG pH POC ABG pCO2 POC ABG pO2 ABG pO2 ABG HCO3 ABG O2 Saturation ABG Base Excess ABG Hemoglobin ABG Oxyhemoglobin ABG Sodium ABG Potassium ABG Chloride ABG Glucose Oxyhemoglobin Carboxyhemoglobin Sodium Potassium Chloride Carbon Dioxide BUN Creatinine Glucose POC Glucose 117 H 56 L 157 H Lactic Acid Calcium Phosphorus Magnesium Ferritin Total Bilirubin Direct Bilirubin AST ALT Alkaline Phosphatase Lactate Dehydrogenase C-Reactive Protein NT-Pro-B Natriuret Pep Total Protein Albumin Lipase Arterial Blood Glucose Arterial Blood Ionized Calcium Ur Specific [place] Vancomycin Trough Coronavirus (PCR) 05/30/21 05/30/21 05/31/21 17:18 23:54 05:27 WBC RBC Hgb Hct MCV MCH RDW Plt Count Lymph % (Auto) Eos % (Auto) Lymph # (Auto) Eos # (Auto) Seg Neutrophils % Seg Neuts % (Manual) Lymphocytes % (Manual) Seg Neutrophils # Man Lymphocytes # (Manual) PT INR APTT D-Dimer ABG pH POC ABG pCO2 POC ABG pO2 ABG pO2 ABG HCO3 ABG O2 Saturation ABG Base Excess ABG Hemoglobin ABG Oxyhemoglobin ABG Sodium ABG Potassium ABG Chloride ABG Glucose Oxyhemoglobin Carboxyhemoglobin Sodium Potassium Chloride Carbon Dioxide BUN Creatinine Glucose POC Glucose 181 H 130 H 112 H Lactic Acid Calcium Phosphorus Magnesium Ferritin Total Bilirubin Direct Bilirubin AST ALT Alkaline Phosphatase Lactate Dehydrogenase C-Reactive Protein NT-Pro-B Natriuret Pep Total Protein Albumin Lipase Arterial Blood Glucose Arterial Blood Ionized Calcium Ur Specific [place] Vancomycin Trough Coronavirus (PCR) 05/31/21 05/31/21 05/31/21 12:06 17:35 23:56 WBC RBC Hgb Hct MCV MCH RDW Plt Count Lymph % (Auto) Eos % (Auto) Lymph # (Auto) Eos # (Auto) Seg Neutrophils % Seg Neuts % (Manual) Lymphocytes % (Manual) Seg Neutrophils # Man Lymphocytes # (Manual) PT INR APTT D-Dimer ABG pH POC ABG pCO2 POC ABG pO2 ABG pO2 ABG HCO3 ABG O2 Saturation ABG Base Excess ABG Hemoglobin ABG Oxyhemoglobin ABG Sodium ABG Potassium ABG Chloride ABG Glucose Oxyhemoglobin Carboxyhemoglobin Sodium Potassium Chloride Carbon Dioxide BUN Creatinine Glucose POC Glucose 170 H 109 H 136 H Lactic Acid Calcium Phosphorus Magnesium Ferritin Total Bilirubin Direct Bilirubin AST ALT Alkaline Phosphatase Lactate Dehydrogenase C-Reactive Protein NT-Pro-B Natriuret Pep Total Protein Albumin Lipase Arterial Blood Glucose Arterial Blood Ionized Calcium Ur Specific [place] Vancomycin Trough Coronavirus (PCR) 06/02/21 06/02/21 06/02/21 04:28 05:36 08:59 WBC RBC 3.31 L Hgb Hct MCV 100 H MCH RDW 24.7 H Plt Count Lymph % (Auto) 12.8 L Eos % (Auto) 10.2 H Lymph # (Auto) 0.6 L Eos # (Auto) 0.5 H Seg Neutrophils % 75.5 H Seg Neuts % (Manual) Lymphocytes % (Manual) Seg Neutrophils # Man Lymphocytes # (Manual) PT INR APTT D-Dimer ABG pH 7.258 L 7.251 L POC ABG pCO2 73.4 H 67.7 H POC ABG pO2 33.0 L 189.6 H ABG pO2 ABG HCO3 ABG O2 Saturation ABG Base Excess ABG Hemoglobin 11.8 L 11.8 L ABG Oxyhemoglobin 48.8 L ABG Sodium 146.7 H 146.3 H ABG Potassium 3.1 L ABG Chloride 109.0 H ABG Glucose 64 L Oxyhemoglobin Carboxyhemoglobin 1.6 H Sodium Potassium Chloride Carbon Dioxide BUN Creatinine Glucose POC Glucose Lactic Acid Calcium Phosphorus Magnesium Ferritin Total Bilirubin Direct Bilirubin AST ALT Alkaline Phosphatase Lactate Dehydrogenase C-Reactive Protein NT-Pro-B Natriuret Pep Total Protein Albumin Lipase Arterial Blood Glucose 64 L Arterial Blood Ionized Calcium Ur Specific [place] Vancomycin Trough Coronavirus (PCR) 06/02/21 06/02/21 06/02/21 08:59 11:39 14:50 WBC RBC Hgb Hct MCV MCH RDW Plt Count Lymph % (Auto) Eos % (Auto) Lymph # (Auto) Eos # (Auto) Seg Neutrophils % Seg Neuts % (Manual) Lymphocytes % (Manual) Seg Neutrophils # Man Lymphocytes # (Manual) PT INR APTT D-Dimer ABG pH 7.339 L POC ABG pCO2 POC ABG pO2 ABG pO2 91.4 H ABG HCO3 26.2 H ABG O2 Saturation ABG Base Excess ABG Hemoglobin 11.3 L ABG Oxyhemoglobin ABG Sodium ABG Potassium ABG Chloride ABG Glucose Oxyhemoglobin 93.7 L Carboxyhemoglobin Sodium 148 H Potassium 2.9 L* Chloride 111.1 H Carbon Dioxide BUN Creatinine 0.3 L Glucose 29 L* POC Glucose 140 H Lactic Acid Calcium 7.7 L Phosphorus Magnesium 1.50 L Ferritin Total Bilirubin Direct Bilirubin AST ALT Alkaline Phosphatase Lactate Dehydrogenase C-Reactive Protein NT-Pro-B Natriuret Pep Total Protein Albumin Lipase Arterial Blood Glucose Arterial Blood Ionized Calcium Ur Specific [place] Vancomycin Trough Coronavirus (PCR) 06/02/21 06/02/21 06/02/21 17:49 19:47 21:30 WBC RBC Hgb Hct MCV MCH RDW Plt Count Lymph % (Auto) Eos % (Auto) Lymph # (Auto) Eos # (Auto) Seg Neutrophils % Seg Neuts % (Manual) Lymphocytes % (Manual) Seg Neutrophils # Man Lymphocytes # (Manual) PT INR APTT D-Dimer ABG pH POC ABG pCO2 POC ABG pO2 ABG pO2 ABG HCO3 ABG O2 Saturation ABG Base Excess ABG Hemoglobin ABG Oxyhemoglobin ABG Sodium ABG Potassium ABG Chloride ABG Glucose Oxyhemoglobin Carboxyhemoglobin Sodium Potassium Chloride 109.6 H Carbon Dioxide 21 L D BUN Creatinine Glucose 123 H POC Glucose 67 L 117 H Lactic Acid Calcium 7.5 L Phosphorus 5.20 H D Magnesium 2.90 H Ferritin Total Bilirubin Direct Bilirubin AST ALT Alkaline Phosphatase Lactate Dehydrogenase C-Reactive Protein NT-Pro-B Natriuret Pep Total Protein Albumin Lipase Arterial Blood Glucose Arterial Blood Ionized Calcium Ur Specific [place] Vancomycin Trough Coronavirus (PCR) 06/02/21 06/02/21 06/02/21 21:30 22:00 23:10 WBC RBC Hgb Hct MCV MCH RDW Plt Count Lymph % (Auto) Eos % (Auto) Lymph # (Auto) Eos # (Auto) Seg Neutrophils % Seg Neuts % (Manual) Lymphocytes % (Manual) Seg Neutrophils # Man Lymphocytes # (Manual) PT INR APTT D-Dimer ABG pH POC ABG pCO2 POC ABG pO2 ABG pO2 ABG HCO3 ABG O2 Saturation ABG Base Excess ABG Hemoglobin ABG Oxyhemoglobin ABG Sodium ABG Potassium ABG Chloride ABG Glucose Oxyhemoglobin Carboxyhemoglobin Sodium 147 H Potassium Chloride 111.7 H Carbon Dioxide BUN Creatinine Glucose 105 H POC Glucose 122 H Lactic Acid Calcium 7.5 L Phosphorus Magnesium Ferritin Total Bilirubin Direct Bilirubin AST 74 H ALT 96 H Alkaline Phosphatase 207 H Lactate Dehydrogenase C-Reactive Protein NT-Pro-B Natriuret Pep 2326 H Total Protein 5.0 L Albumin 2.0 L Lipase Arterial Blood Glucose Arterial Blood Ionized Calcium Ur Specific [place] Vancomycin Trough Coronavirus (PCR) 06/03/21 06/03/21 06/03/21 04:45 04:45 04:45 WBC 13.6 H RBC 3.44 L Hgb Hct MCV 102 H MCH RDW 25.4 H Plt Count Lymph % (Auto) Eos % (Auto) Lymph # (Auto) Eos # (Auto) Seg Neutrophils % Seg Neuts % (Manual) Lymphocytes % (Manual) Seg Neutrophils # Man Lymphocytes # (Manual) PT INR APTT D-Dimer ABG pH POC ABG pCO2 POC ABG pO2 ABG pO2 ABG HCO3 ABG O2 Saturation ABG Base Excess ABG Hemoglobin ABG Oxyhemoglobin ABG Sodium ABG Potassium ABG Chloride ABG Glucose Oxyhemoglobin Carboxyhemoglobin Sodium Potassium Chloride Carbon Dioxide BUN Creatinine Glucose 151 H POC Glucose Lactic Acid Calcium 7.6 L Phosphorus 6.70 H D Magnesium Ferritin Total Bilirubin Direct Bilirubin AST 68 H ALT 103 H Alkaline Phosphatase 226 H Lactate Dehydrogenase C-Reactive Protein NT-Pro-B Natriuret Pep Total Protein 6.0 L Albumin 2.0 L Lipase Arterial Blood Glucose Arterial Blood Ionized Calcium Ur Specific [place] Vancomycin Trough Coronavirus (PCR) 06/03/21 06/03/21 06/03/21 05:02 10:00 11:46 WBC RBC Hgb Hct MCV MCH RDW Plt Count Lymph % (Auto) Eos % (Auto) Lymph # (Auto) Eos # (Auto) Seg Neutrophils % Seg Neuts % (Manual) Lymphocytes % (Manual) Seg Neutrophils # Man Lymphocytes # (Manual) PT INR APTT D-Dimer ABG pH 7.312 L POC ABG pCO2 POC ABG pO2 ABG pO2 68.5 L ABG HCO3 ABG O2 Saturation 93.0 L ABG Base Excess ABG Hemoglobin 11.5 L ABG Oxyhemoglobin ABG Sodium ABG Potassium ABG Chloride ABG Glucose Oxyhemoglobin 90.1 L Carboxyhemoglobin Sodium Potassium Chloride Carbon Dioxide BUN Creatinine Glucose POC Glucose 139 H 150 H Lactic Acid Calcium Phosphorus Magnesium Ferritin Total Bilirubin Direct Bilirubin AST ALT Alkaline Phosphatase Lactate Dehydrogenase C-Reactive Protein NT-Pro-B Natriuret Pep Total Protein Albumin Lipase Arterial Blood Glucose Arterial Blood Ionized Calcium Ur Specific [place] Vancomycin Trough Coronavirus (PCR) 06/03/21 06/03/21 06/04/21 17:19 23:01 04:00 WBC RBC 2.99 L Hgb 9.7 L Hct 30.0 L MCV 101 H MCH 33 H RDW 25.3 H Plt Count Lymph % (Auto) Eos % (Auto) Lymph # (Auto) Eos # (Auto) Seg Neutrophils % Seg Neuts % (Manual) Lymphocytes % (Manual) Seg Neutrophils # Man Lymphocytes # (Manual) PT INR APTT D-Dimer ABG pH POC ABG pCO2 POC ABG pO2 ABG pO2 ABG HCO3 ABG O2 Saturation ABG Base Excess ABG Hemoglobin ABG Oxyhemoglobin ABG Sodium ABG Potassium ABG Chloride ABG Glucose Oxyhemoglobin Carboxyhemoglobin Sodium Potassium Chloride Carbon Dioxide BUN Creatinine Glucose POC Glucose 135 H 164 H Lactic Acid Calcium Phosphorus Magnesium Ferritin Total Bilirubin Direct Bilirubin AST ALT Alkaline Phosphatase Lactate Dehydrogenase C-Reactive Protein NT-Pro-B Natriuret Pep Total Protein Albumin Lipase Arterial Blood Glucose Arterial Blood Ionized Calcium Ur Specific [place] Vancomycin Trough Coronavirus (PCR) 06/04/21 06/04/21 06/04/21 04:40 05:02 10:00 WBC RBC Hgb Hct MCV MCH RDW Plt Count Lymph % (Auto) Eos % (Auto) Lymph # (Auto) Eos # (Auto) Seg Neutrophils % Seg Neuts % (Manual) Lymphocytes % (Manual) Seg Neutrophils # Man Lymphocytes # (Manual) PT INR APTT D-Dimer ABG pH POC ABG pCO2 52.2 H POC ABG pO2 82.9 L ABG pO2 ABG HCO3 ABG O2 Saturation ABG Base Excess ABG Hemoglobin ABG Oxyhemoglobin ABG Sodium 135.4 L ABG Potassium ABG Chloride ABG Glucose 163 H Oxyhemoglobin Carboxyhemoglobin 1.7 H Sodium Potassium Chloride Carbon Dioxide BUN 19 H Creatinine 0.5 L Glucose 150 H POC Glucose 137 H Lactic Acid Calcium 8.0 L Phosphorus Magnesium Ferritin Total Bilirubin Direct Bilirubin AST ALT 70 H Alkaline Phosphatase 204 H Lactate Dehydrogenase C-Reactive Protein NT-Pro-B Natriuret Pep Total Protein 5.7 L Albumin 1.8 L Lipase Arterial Blood Glucose 163 H Arterial Blood Ionized Calcium Ur Specific [place] Vancomycin Trough Coronavirus (PCR) 06/04/21 06/04/21 06/04/21 12:09 17:43 17:49 WBC RBC Hgb Hct MCV MCH RDW Plt Count Lymph % (Auto) Eos % (Auto) Lymph # (Auto) Eos # (Auto) Seg Neutrophils % Seg Neuts % (Manual) Lymphocytes % (Manual) Seg Neutrophils # Man Lymphocytes # (Manual) PT INR APTT D-Dimer ABG pH POC ABG pCO2 POC ABG pO2 66.6 L ABG pO2 ABG HCO3 ABG O2 Saturation ABG Base Excess ABG Hemoglobin 11.2 L ABG Oxyhemoglobin 91.9 L ABG Sodium 134.9 L ABG Potassium ABG Chloride 97.0 L ABG Glucose 181 H Oxyhemoglobin Carboxyhemoglobin Sodium Potassium Chloride Carbon Dioxide BUN Creatinine Glucose POC Glucose 160 H 170 H Lactic Acid Calcium Phosphorus Magnesium Ferritin Total Bilirubin Direct Bilirubin AST ALT Alkaline Phosphatase Lactate Dehydrogenase C-Reactive Protein NT-Pro-B Natriuret Pep Total Protein Albumin Lipase Arterial Blood Glucose 181 H Arterial Blood Ionized Calcium Ur Specific [place] Vancomycin Trough Coronavirus (PCR) 06/04/21 06/05/21 06/05/21 23:31 06:00 06:00 WBC RBC 3.13 L Hgb 10.0 L Hct MCV 100 H MCH RDW 24.6 H Plt Count 127 L Lymph % (Auto) Eos % (Auto) Lymph # (Auto) Eos # (Auto) Seg Neutrophils % Seg Neuts % (Manual) Lymphocytes % (Manual) Seg Neutrophils # Man Lymphocytes # (Manual) PT INR APTT D-Dimer ABG pH POC ABG pCO2 POC ABG pO2 ABG pO2 ABG HCO3 ABG O2 Saturation ABG Base Excess ABG Hemoglobin ABG Oxyhemoglobin ABG Sodium ABG Potassium ABG Chloride ABG Glucose Oxyhemoglobin Carboxyhemoglobin Sodium 136 L Potassium Chloride 94.2 L Carbon Dioxide 32 H BUN Creatinine 0.3 L Glucose 241 H POC Glucose 149 H Lactic Acid Calcium 8.3 L Phosphorus Magnesium Ferritin Total Bilirubin Direct Bilirubin AST ALT Alkaline Phosphatase 219 H Lactate Dehydrogenase 301 H C-Reactive Protein 22.40 H NT-Pro-B Natriuret Pep Total Protein 6.2 L Albumin 1.8 L Lipase Arterial Blood Glucose Arterial Blood Ionized Calcium Ur Specific [place] Vancomycin Trough Coronavirus (PCR) 06/05/21 06/05/21 06/05/21 06:00 06:00 06:12 WBC RBC Hgb Hct MCV MCH RDW Plt Count Lymph % (Auto) Eos % (Auto) Lymph # (Auto) Eos # (Auto) Seg Neutrophils % Seg Neuts % (Manual) Lymphocytes % (Manual) Seg Neutrophils # Man Lymphocytes # (Manual) PT 15.9 H INR 1.15 H APTT 37.1 H D-Dimer 1282.85 H ABG pH POC ABG pCO2 POC ABG pO2 ABG pO2 ABG HCO3 ABG O2 Saturation ABG Base Excess ABG Hemoglobin ABG Oxyhemoglobin ABG Sodium ABG Potassium ABG Chloride ABG Glucose Oxyhemoglobin Carboxyhemoglobin Sodium Potassium Chloride Carbon Dioxide BUN Creatinine Glucose POC Glucose 228 H Lactic Acid Calcium Phosphorus Magnesium Ferritin 717.1 H Total Bilirubin Direct Bilirubin AST ALT Alkaline Phosphatase Lactate Dehydrogenase C-Reactive Protein NT-Pro-B Natriuret Pep Total Protein Albumin Lipase Arterial Blood Glucose Arterial Blood Ionized Calcium Ur Specific [place] Vancomycin Trough Coronavirus (PCR) 06/05/21 06/05/21 06/05/21 09:17 12:20 17:07 WBC RBC Hgb Hct MCV MCH RDW Plt Count Lymph % (Auto) Eos % (Auto) Lymph # (Auto) Eos # (Auto) Seg Neutrophils % Seg Neuts % (Manual) Lymphocytes % (Manual) Seg Neutrophils # Man Lymphocytes # (Manual) PT INR APTT D-Dimer ABG pH POC ABG pCO2 54.0 H POC ABG pO2 140.6 H ABG pO2 ABG HCO3 ABG O2 Saturation ABG Base Excess ABG Hemoglobin 10.3 L ABG Oxyhemoglobin ABG Sodium 133.6 L ABG Potassium 3.3 L ABG Chloride 97.0 L ABG Glucose 179 H Oxyhemoglobin Carboxyhemoglobin Sodium Potassium Chloride Carbon Dioxide BUN Creatinine Glucose POC Glucose 220 H 197 H Lactic Acid Calcium Phosphorus Magnesium Ferritin Total Bilirubin Direct Bilirubin AST ALT Alkaline Phosphatase Lactate Dehydrogenase C-Reactive Protein NT-Pro-B Natriuret Pep Total Protein Albumin Lipase Arterial Blood Glucose 179 H Arterial Blood Ionized Calcium Ur Specific [place] Vancomycin Trough Coronavirus (PCR) 06/05/21 06/06/21 06/06/21 23:29 05:26 05:26 WBC 3.5 L RBC 3.21 L Hgb Hct MCV 98 H MCH RDW 23.9 H Plt Count 110 L Lymph % (Auto) Eos % (Auto) Lymph # (Auto) Eos # (Auto) Seg Neutrophils % Seg Neuts % (Manual) Lymphocytes % (Manual) Seg Neutrophils # Man Lymphocytes # (Manual) PT INR APTT D-Dimer ABG pH POC ABG pCO2 POC ABG pO2 ABG pO2 ABG HCO3 ABG O2 Saturation ABG Base Excess ABG Hemoglobin ABG Oxyhemoglobin ABG Sodium ABG Potassium ABG Chloride ABG Glucose Oxyhemoglobin Carboxyhemoglobin Sodium Potassium 3.2 L Chloride Carbon Dioxide 34 H BUN Creatinine 0.3 L Glucose 172 H POC Glucose 180 H Lactic Acid Calcium 8.0 L Phosphorus Magnesium Ferritin Total Bilirubin Direct Bilirubin AST ALT Alkaline Phosphatase 207 H Lactate Dehydrogenase C-Reactive Protein NT-Pro-B Natriuret Pep Total Protein 5.5 L Albumin 2.0 L Lipase Arterial Blood Glucose Arterial Blood Ionized Calcium Ur Specific [place] Vancomycin Trough Coronavirus (PCR) 06/06/21 06/06/21 06/06/21 05:30 09:00 11:15 WBC RBC Hgb Hct MCV MCH RDW Plt Count Lymph % (Auto) Eos % (Auto) Lymph # (Auto) Eos # (Auto) Seg Neutrophils % Seg Neuts % (Manual) Lymphocytes % (Manual) Seg Neutrophils # Man Lymphocytes # (Manual) PT INR APTT D-Dimer ABG pH POC ABG pCO2 59.5 H POC ABG pO2 72.0 L ABG pO2 ABG HCO3 ABG O2 Saturation ABG Base Excess ABG Hemoglobin 10.9 L ABG Oxyhemoglobin 91.7 L ABG Sodium 135.8 L ABG Potassium 2.8 L ABG Chloride 96.0 L ABG Glucose 172 H Oxyhemoglobin Carboxyhemoglobin Sodium Potassium Chloride Carbon Dioxide BUN Creatinine Glucose POC Glucose 159 H 172 H Lactic Acid Calcium Phosphorus Magnesium Ferritin Total Bilirubin Direct Bilirubin AST ALT Alkaline Phosphatase Lactate Dehydrogenase C-Reactive Protein NT-Pro-B Natriuret Pep Total Protein Albumin Lipase Arterial Blood Glucose 172 H Arterial Blood Ionized Calcium 4.5 L Ur Specific [place] Vancomycin Trough Coronavirus (PCR) 06/06/21 06/06/21 06/06/21 16:07 21:00 23:46 WBC RBC Hgb Hct MCV MCH RDW Plt Count Lymph % (Auto) Eos % (Auto) Lymph # (Auto) Eos # (Auto) Seg Neutrophils % Seg Neuts % (Manual) Lymphocytes % (Manual) Seg Neutrophils # Man Lymphocytes # (Manual) PT INR APTT D-Dimer ABG pH POC ABG pCO2 59.5 H POC ABG pO2 52.1 L ABG pO2 ABG HCO3 ABG O2 Saturation ABG Base Excess ABG Hemoglobin 11.9 L ABG Oxyhemoglobin 84.0 L ABG Sodium 134.6 L ABG Potassium ABG Chloride ABG Glucose 206 H Oxyhemoglobin Carboxyhemoglobin Sodium Potassium Chloride Carbon Dioxide BUN Creatinine Glucose POC Glucose 122 H 203 H Lactic Acid Calcium Phosphorus Magnesium Ferritin Total Bilirubin Direct Bilirubin AST ALT Alkaline Phosphatase Lactate Dehydrogenase C-Reactive Protein NT-Pro-B Natriuret Pep Total Protein Albumin Lipase Arterial Blood Glucose 206 H Arterial Blood Ionized Calcium Ur Specific [place] Vancomycin Trough Coronavirus (PCR) 06/07/21 06/07/21 06/07/21 04:36 04:36 04:36 WBC RBC Hgb Hct MCV MCH RDW Plt Count Lymph % (Auto) Eos % (Auto) Lymph # (Auto) Eos # (Auto) Seg Neutrophils % Seg Neuts % (Manual) Lymphocytes % (Manual) Seg Neutrophils # Man Lymphocytes # (Manual) PT INR APTT D-Dimer 1938.43 H ABG pH POC ABG pCO2 POC ABG pO2 ABG pO2 ABG HCO3 ABG O2 Saturation ABG Base Excess ABG Hemoglobin ABG Oxyhemoglobin ABG Sodium ABG Potassium ABG Chloride ABG Glucose Oxyhemoglobin Carboxyhemoglobin Sodium Potassium Chloride Carbon Dioxide 31 H BUN Creatinine 0.3 L Glucose 234 H POC Glucose Lactic Acid Calcium Phosphorus 2.40 L Magnesium Ferritin 1287.0 H Total Bilirubin Direct Bilirubin AST ALT Alkaline Phosphatase Lactate Dehydrogenase 270 H C-Reactive Protein 26.70 H NT-Pro-B Natriuret Pep Total Protein Albumin Lipase Arterial Blood Glucose Arterial Blood Ionized Calcium Ur Specific [place] Vancomycin Trough Coronavirus (PCR) 06/07/21 06/07/21 06/07/21 04:36 05:31 10:50 WBC RBC 3.31 L Hgb Hct MCV 99 H MCH RDW 23.9 H Plt Count 133 L Lymph % (Auto) Eos % (Auto) Lymph # (Auto) Eos # (Auto) Seg Neutrophils % Seg Neuts % (Manual) Lymphocytes % (Manual) Seg Neutrophils # Man Lymphocytes # (Manual) PT INR APTT D-Dimer ABG pH POC ABG pCO2 POC ABG pO2 ABG pO2 66.6 L ABG HCO3 35.7 H ABG O2 Saturation ABG Base Excess 10.3 H ABG Hemoglobin 6.2 L ABG Oxyhemoglobin ABG Sodium ABG Potassium ABG Chloride ABG Glucose Oxyhemoglobin 94.7 L Carboxyhemoglobin Sodium Potassium Chloride Carbon Dioxide BUN Creatinine Glucose POC Glucose 252 H Lactic Acid Calcium Phosphorus Magnesium Ferritin Total Bilirubin Direct Bilirubin AST ALT Alkaline Phosphatase Lactate Dehydrogenase C-Reactive Protein NT-Pro-B Natriuret Pep Total Protein Albumin Lipase Arterial Blood Glucose Arterial Blood Ionized Calcium Ur Specific [place] Vancomycin Trough Coronavirus (PCR) 06/07/21 06/07/21 06/07/21 11:56 16:21 23:46 WBC RBC Hgb Hct MCV MCH RDW Plt Count Lymph % (Auto) Eos % (Auto) Lymph # (Auto) Eos # (Auto) Seg Neutrophils % Seg Neuts % (Manual) Lymphocytes % (Manual) Seg Neutrophils # Man Lymphocytes # (Manual) PT INR APTT D-Dimer ABG pH POC ABG pCO2 POC ABG pO2 ABG pO2 ABG HCO3 ABG O2 Saturation ABG Base Excess ABG Hemoglobin ABG Oxyhemoglobin ABG Sodium ABG Potassium ABG Chloride ABG Glucose Oxyhemoglobin Carboxyhemoglobin Sodium Potassium Chloride Carbon Dioxide BUN Creatinine Glucose POC Glucose 178 H 190 H 179 H Lactic Acid Calcium Phosphorus Magnesium Ferritin Total Bilirubin Direct Bilirubin AST ALT Alkaline Phosphatase Lactate Dehydrogenase C-Reactive Protein NT-Pro-B Natriuret Pep Total Protein Albumin Lipase Arterial Blood Glucose Arterial Blood Ionized Calcium Ur Specific [place] Vancomycin Trough Coronavirus (PCR) 06/08/21 06/08/21 06/08/21 04:47 04:47 06:21 WBC 11.1 H RBC 3.02 L Hgb 9.4 L Hct 29.9 L MCV 99 H MCH RDW 24.5 H Plt Count Lymph % (Auto) Eos % (Auto) Lymph # (Auto) Eos # (Auto) Seg Neutrophils % Seg Neuts % (Manual) Lymphocytes % (Manual) Seg Neutrophils # Man Lymphocytes # (Manual) PT INR APTT D-Dimer ABG pH POC ABG pCO2 POC ABG pO2 ABG pO2 ABG HCO3 ABG O2 Saturation ABG Base Excess ABG Hemoglobin ABG Oxyhemoglobin ABG Sodium ABG Potassium ABG Chloride ABG Glucose Oxyhemoglobin Carboxyhemoglobin Sodium Potassium Chloride Carbon Dioxide BUN 28 H Creatinine 0.4 L Glucose 230 H POC Glucose 210 H Lactic Acid Calcium 8.2 L Phosphorus Magnesium Ferritin Total Bilirubin Direct Bilirubin AST ALT Alkaline Phosphatase Lactate Dehydrogenase C-Reactive Protein NT-Pro-B Natriuret Pep Total Protein Albumin Lipase Arterial Blood Glucose Arterial Blood Ionized Calcium Ur Specific [place] Vancomycin Trough Coronavirus (PCR) 06/08/21 06/08/21 06/09/21 11:56 18:06 00:16 WBC RBC Hgb Hct MCV MCH RDW Plt Count Lymph % (Auto) Eos % (Auto) Lymph # (Auto) Eos # (Auto) Seg Neutrophils % Seg Neuts % (Manual) Lymphocytes % (Manual) Seg Neutrophils # Man Lymphocytes # (Manual) PT INR APTT D-Dimer ABG pH POC ABG pCO2 POC ABG pO2 ABG pO2 ABG HCO3 ABG O2 Saturation ABG Base Excess ABG Hemoglobin ABG Oxyhemoglobin ABG Sodium ABG Potassium ABG Chloride ABG Glucose Oxyhemoglobin Carboxyhemoglobin Sodium Potassium Chloride Carbon Dioxide BUN Creatinine Glucose POC Glucose 157 H 136 H 147 H Lactic Acid Calcium Phosphorus Magnesium Ferritin Total Bilirubin Direct Bilirubin AST ALT Alkaline Phosphatase Lactate Dehydrogenase C-Reactive Protein NT-Pro-B Natriuret Pep Total Protein Albumin Lipase Arterial Blood Glucose Arterial Blood Ionized Calcium Ur Specific [place] Vancomycin Trough Coronavirus (PCR) 06/09/21 06/09/21 06/09/21 02:45 04:48 04:48 WBC RBC 3.14 L Hgb 9.8 L Hct MCV 99 H MCH RDW 24.3 H Plt Count 124 L Lymph % (Auto) Eos % (Auto) Lymph # (Auto) Eos # (Auto) Seg Neutrophils % Seg Neuts % (Manual) Lymphocytes % (Manual) Seg Neutrophils # Man Lymphocytes # (Manual) PT INR APTT D-Dimer ABG pH POC ABG pCO2 56.0 H POC ABG pO2 54.3 L ABG pO2 ABG HCO3 ABG O2 Saturation ABG Base Excess ABG Hemoglobin 11.1 L ABG Oxyhemoglobin 85.6 L ABG Sodium ABG Potassium ABG Chloride ABG Glucose 191 H Oxyhemoglobin Carboxyhemoglobin 1.6 H Sodium Potassium Chloride Carbon Dioxide BUN 29 H Creatinine 0.5 L Glucose 225 H POC Glucose Lactic Acid Calcium 7.7 L Phosphorus 5.10 H Magnesium Ferritin Total Bilirubin Direct Bilirubin AST ALT Alkaline Phosphatase Lactate Dehydrogenase C-Reactive Protein NT-Pro-B Natriuret Pep Total Protein Albumin Lipase Arterial Blood Glucose 191 H Arterial Blood Ionized Calcium 4.4 L Ur Specific [place] Vancomycin Trough Coronavirus (PCR) 06/09/21 06/09/21 06/09/21 06:14 11:54 16:38 WBC RBC Hgb Hct MCV MCH RDW Plt Count Lymph % (Auto) Eos % (Auto) Lymph # (Auto) Eos # (Auto) Seg Neutrophils % Seg Neuts % (Manual) Lymphocytes % (Manual) Seg Neutrophils # Man Lymphocytes # (Manual) PT INR APTT D-Dimer ABG pH POC ABG pCO2 POC ABG pO2 ABG pO2 ABG HCO3 ABG O2 Saturation ABG Base Excess ABG Hemoglobin ABG Oxyhemoglobin ABG Sodium ABG Potassium ABG Chloride ABG Glucose Oxyhemoglobin Carboxyhemoglobin Sodium Potassium Chloride Carbon Dioxide BUN Creatinine Glucose POC Glucose 215 H 167 H 192 H Lactic Acid Calcium Phosphorus Magnesium Ferritin Total Bilirubin Direct Bilirubin AST ALT Alkaline Phosphatase Lactate Dehydrogenase C-Reactive Protein NT-Pro-B Natriuret Pep Total Protein Albumin Lipase Arterial Blood Glucose Arterial Blood Ionized Calcium Ur Specific [place] Vancomycin Trough Coronavirus (PCR) 06/09/21 06/10/21 06/10/21 23:42 05:10 08:19 WBC 15.9 H RBC 3.17 L Hgb 10.0 L Hct MCV 101 H MCH RDW 24.6 H Plt Count Lymph % (Auto) Eos % (Auto) Lymph # (Auto) Eos # (Auto) Seg Neutrophils % Seg Neuts % (Manual) Lymphocytes % (Manual) Seg Neutrophils # Man Lymphocytes # (Manual) PT INR APTT D-Dimer ABG pH POC ABG pCO2 POC ABG pO2 ABG pO2 ABG HCO3 ABG O2 Saturation ABG Base Excess ABG Hemoglobin ABG Oxyhemoglobin ABG Sodium ABG Potassium ABG Chloride ABG Glucose Oxyhemoglobin Carboxyhemoglobin Sodium Potassium Chloride Carbon Dioxide BUN Creatinine Glucose POC Glucose 197 H 123 H Lactic Acid Calcium Phosphorus Magnesium Ferritin Total Bilirubin Direct Bilirubin AST ALT Alkaline Phosphatase Lactate Dehydrogenase C-Reactive Protein NT-Pro-B Natriuret Pep Total Protein Albumin Lipase Arterial Blood Glucose Arterial Blood Ionized Calcium Ur Specific [place] Vancomycin Trough Coronavirus (PCR) 06/10/21 06/10/21 06/10/21 08:19 11:25 14:20 WBC RBC Hgb Hct MCV MCH RDW Plt Count Lymph % (Auto) Eos % (Auto) Lymph # (Auto) Eos # (Auto) Seg Neutrophils % Seg Neuts % (Manual) Lymphocytes % (Manual) Seg Neutrophils # Man Lymphocytes # (Manual) PT INR APTT D-Dimer ABG pH POC ABG pCO2 POC ABG pO2 ABG pO2 ABG HCO3 ABG O2 Saturation ABG Base Excess ABG Hemoglobin ABG Oxyhemoglobin ABG Sodium ABG Potassium ABG Chloride ABG Glucose Oxyhemoglobin Carboxyhemoglobin Sodium 147 H Potassium 5.1 H D 5.1 H Chloride Carbon Dioxide 31 H BUN 43 H Creatinine 0.5 L Glucose 228 H POC Glucose 196 H Lactic Acid Calcium Phosphorus 5.20 H Magnesium Ferritin Total Bilirubin Direct Bilirubin AST ALT Alkaline Phosphatase Lactate Dehydrogenase C-Reactive Protein NT-Pro-B Natriuret Pep Total Protein Albumin Lipase Arterial Blood Glucose Arterial Blood Ionized Calcium Ur Specific [place] Vancomycin Trough Coronavirus (PCR) 06/10/21 06/11/21 06/11/21 16:41 00:11 04:00 WBC RBC 2.59 L Hgb 8.3 L Hct 26.7 L MCV 103 H MCH RDW 25.0 H Plt Count 91 L Lymph % (Auto) Eos % (Auto) Lymph # (Auto) Eos # (Auto) Seg Neutrophils % Seg Neuts % (Manual) Lymphocytes % (Manual) Seg Neutrophils # Man Lymphocytes # (Manual) PT INR APTT D-Dimer ABG pH POC ABG pCO2 POC ABG pO2 ABG pO2 ABG HCO3 ABG O2 Saturation ABG Base Excess ABG Hemoglobin ABG Oxyhemoglobin ABG Sodium ABG Potassium ABG Chloride ABG Glucose Oxyhemoglobin Carboxyhemoglobin Sodium Potassium Chloride Carbon Dioxide BUN Creatinine Glucose POC Glucose 214 H 227 H Lactic Acid Calcium Phosphorus Magnesium Ferritin Total Bilirubin Direct Bilirubin AST ALT Alkaline Phosphatase Lactate Dehydrogenase C-Reactive Protein NT-Pro-B Natriuret Pep Total Protein Albumin Lipase Arterial Blood Glucose Arterial Blood Ionized Calcium Ur Specific [place] Vancomycin Trough Coronavirus (PCR) 06/11/21 06/11/21 06/11/21 04:00 05:15 06:20 WBC RBC Hgb Hct MCV MCH RDW Plt Count Lymph % (Auto) Eos % (Auto) Lymph # (Auto) Eos # (Auto) Seg Neutrophils % Seg Neuts % (Manual) Lymphocytes % (Manual) Seg Neutrophils # Man Lymphocytes # (Manual) PT INR APTT D-Dimer ABG pH POC ABG pCO2 61.8 H POC ABG pO2 55.2 L ABG pO2 ABG HCO3 ABG O2 Saturation ABG Base Excess ABG Hemoglobin 11.2 L ABG Oxyhemoglobin 86.9 L ABG Sodium 146.1 H ABG Potassium ABG Chloride ABG Glucose 200 H Oxyhemoglobin Carboxyhemoglobin Sodium 150 H Potassium Chloride 107.6 H Carbon Dioxide BUN 50 H Creatinine Glucose 140 H POC Glucose 165 H Lactic Acid Calcium Phosphorus Magnesium Ferritin Total Bilirubin Direct Bilirubin AST ALT Alkaline Phosphatase Lactate Dehydrogenase C-Reactive Protein NT-Pro-B Natriuret Pep Total Protein Albumin Lipase Arterial Blood Glucose 200 H Arterial Blood Ionized Calcium Ur Specific [place] Vancomycin Trough Coronavirus (PCR) 06/11/21 11:16 WBC RBC Hgb Hct MCV MCH RDW Plt Count Lymph % (Auto) Eos % (Auto) Lymph # (Auto) Eos # (Auto) Seg Neutrophils % Seg Neuts % (Manual) Lymphocytes % (Manual) Seg Neutrophils # Man Lymphocytes # (Manual) PT INR APTT D-Dimer ABG pH POC ABG pCO2 POC ABG pO2 ABG pO2 ABG HCO3 ABG O2 Saturation ABG Base Excess ABG Hemoglobin ABG Oxyhemoglobin ABG Sodium ABG Potassium ABG Chloride ABG Glucose Oxyhemoglobin Carboxyhemoglobin Sodium Potassium Chloride Carbon Dioxide BUN Creatinine Glucose POC Glucose 119 H Lactic Acid Calcium Phosphorus Magnesium Ferritin Total Bilirubin Direct Bilirubin AST ALT Alkaline Phosphatase Lactate Dehydrogenase C-Reactive Protein NT-Pro-B Natriuret Pep Total Protein Albumin Lipase Arterial Blood Glucose Arterial Blood Ionized Calcium Ur Specific [place] Vancomycin Trough Coronavirus (PCR) Chest x-ray: image reviewed (Bilateral pleural effusions wiht worsening alveolar infiltrates) Allied health notes reviewed: nursing
[2021-06-11] MEDS: VASOPRESSIN 20 UNIT in SODIUM CHLORIDE 0.9% 100 ML IV SCH ×2 (12:27→18:27)
[2021-06-11] MEDS ORDERED: BUMETANIDE 1 MG/4 ML INJ IV NR (13:00)
--- NOTE | 2021-06-11 13:18 | XRay Report ---
CHEST 1 VIEW INDICATION: Hypoxia. COMPARISON: 06/09/2021 FINDINGS: Support devices: The feeding tube has been replaced with a nasogastric tube which appears in good pos ition. The endotracheal tube and right [id number] remain in good position. Heart: Within normal limits. Lungs/Pleura: Given differences in technique, diffuse bilateral lung infiltrates appear stable. No la rge pleural effusion or pneumothorax. Additional findings: None. IMPRESSION: Diffuse bilateral lung opacities are again seen. No overwhelming change since 06/09/2021. Signer Name: Valeriano Akins Jr, MD Signed: 06/11/2021 1:14 PM Workstation Name: [id number]
[2021-06-11] MEDS ORDERED: ALBUMIN HUMAN 25% (25 GM/100 ML) INJ IV NR ×2 (15:00→17:30)
[2021-06-11] MEDS: DEXTROSE 50% IN WATER (25GM) 50 ML SYRINGE IV PRN ×2 (16:56→22:08)
[2021-06-11] MEDS: PHENYLEPHRINE 100 MG in SODIUM CHLORIDE 0.9% 90 ML IV SCH (19:20)
[2021-06-11] MEDS: FONDAPARINUX 2.5 MG/0.5 ML INJ SUB-Q SCH (22:02)
[2021-06-11] MEDS: INSULIN GLARGINE 100 UNITS/ML SUB-Q SCH (22:03)
[2021-06-11] MEDS: PANTOPRAZOLE 80 MG in SODIUM CHLORIDE 0.9% 100 ML IV SCH (23:46)
[2021-06-11] MEDS: DEXTROSE 5% IN WATER 1,000 ML IV SCH (23:47)
[2021-06-12] MEDS: INSULIN LISPRO 100 UNIT/ML SUB-Q SCH ×3 (00:31→13:04)
[2021-06-12] MEDS: METOCLOPRAMIDE 10 MG/2 ML INJ IV SCH ×3 (00:36→12:00)
[2021-06-12] MEDS: DEXTROSE 50% IN WATER (25GM) 50 ML SYRINGE IV PRN (00:36)
[2021-06-12] MEDS: NORepinephrine/NS 8 MG-250 ML 8 MG/250 ML INFUS..BTL IV SCH ×2 (03:01→07:33)
[2021-06-12] MEDS: HYDROCORTISONE SOD SUCC 100 MG/2 ML VIAL IV SCH ×2 (05:51→13:15)
[2021-06-12] MEDS: FREE WATER PO SCH ×3 (05:52→13:55)
[2021-06-12 06:27] LABS: Mean Corpuscular HGB Conc 28 % (30-34); Red Blood Count 2.74 M/mm3 (3.65-5.03)
[2021-06-12] MEDS: fentaNYL DRIP Premix 2,000 MCG/100 ML BAG IV SCH ×2 (06:29→13:36)
--- NOTE | 2021-06-12 06:31 | XRay Report ---
CHEST 1 VIEW 06/12/2021 5:08 AM INDICATION / CLINICAL INFORMATION: Hypoxia. COMPARISON: 06/11/21 FINDINGS: SUPPORT DEVICES: Stable, satisfactory device positioning. HEART / MEDIASTINUM: Stable. LUNGS / PLEURA: Moderately extensive, bilateral pulmonary opacities are unchanged. No pneumothorax. ADDITIONAL FINDINGS: No significant additional findings. IMPRESSION: 1. No significant change. Signer Name: Zoraida Fontenot MD Signed: 06/12/2021 6:27 AM Workstation Name: [id number]
[2021-06-12 06:36] LABS: Hematocrit 30.2 % (30.3-42.9); Hemoglobin 8.5 gm/dl (10.1-14.3)
[2021-06-12 06:37] LABS: Mean Corpuscular Volume 110 fl (79-97); Red Cell Distribution Width 26.3 % (13.2-15.2)
[2021-06-12 06:43] LABS: Platelet Count 57 K/mm3 (140-440)
[2021-06-12 06:46] LABS: Calcium 8.9 mg/dL (8.4-10.2)
[2021-06-12] MEDS: PANTOPRAZOLE 80 MG in SODIUM CHLORIDE 0.9% 100 ML IV SCH (07:34)
[2021-06-12] MEDS: PHENYLEPHRINE 100 MG in SODIUM CHLORIDE 0.9% 90 ML IV SCH ×3 (07:39→13:31)
[2021-06-12] MEDS ORDERED: DEXTROSE 50% IN WATER (25GM) 50 ML SYRINGE IV PRN (07:49)
[2021-06-12] MEDS: VASOPRESSIN 20 UNIT in SODIUM CHLORIDE 0.9% 100 ML IV SCH (08:17)
[2021-06-12] MEDS ORDERED: CALCIUM GLUCONATE 2,000 MG in SODIUM CHLORIDE 0.9% 100 ML IV SCH (08:30)
[2021-06-12] MEDS: BUDESONIDE 0.5 MG/2 ML NEBU IH SCH (08:39)
[2021-06-12] MEDS: ARFORMOTEROL 15 MCG/2 ML NEBU IH SCH (08:39)
[2021-06-12] MEDS ORDERED: SODIUM POLYSTYRENE 15 GM/60 ML ORAL LIQD PO SCH (09:00)
[2021-06-12] MEDS ORDERED: INSULIN REGULAR, HUMAN 100 UNITS/1 ML IV SCH (09:00)
[2021-06-12] MEDS ORDERED: VANCOMYCIN/NS 1 GM/250 ML 1 GM/250 ML BAG IV SCH (09:00)
[2021-06-12] MEDS ORDERED: SODIUM BICARB 8.4% 50 MEQ/50 ML SYRINGE IV SCH (09:00)
[2021-06-12] MEDS: ASCORBIC ACID 500 MG TAB PO SCH (09:01)
[2021-06-12] MEDS: DICYCLOMINE 10 MG CAP PO SCH (09:05)
[2021-06-12] MEDS: ZINC SULFATE 220 MG CAP PO SCH (09:05)
--- NOTE | 2021-06-12 09:20 | Electrocardiograph Report ---
Test Date: 2021-06-10 Test Time: 11:37:32 Pat Name: GAGE GARCIA Department: Room: A260 1 Gender: F Upstairs Maid: LISSY : 1970 Requested By: EBENEZER CULVER Order Number: [id number] Reading MD: Rico Rodriguez Measurements Intervals [place] Rate: 64 P: 31 DC: 113 QRS: -15 QRSD: 98 T: 38 QT: 408 QTc: 421 Interpretive Statements Sinus rhythm Compared to ECG 05/19/2021 09:27:58 Prolonged QT interval no longer present Electronically Signed On 06-12-2021 9:20:16 EST by Rico Rodriguez
[2021-06-12] MEDS ORDERED: DEXTROSE 50% IN WATER (25GM) 50 ML SYRINGE IV ONE (10:00)
[2021-06-12 10:52] LABS: BUN/Creatinine Ratio 33; Blood Urea Nitrogen 46 mg/dL (7-17); Hemolysis Index 17
[2021-06-12 11:22] LABS: Calcium > 13.0 mg/dL (8.4-10.2)
[2021-06-12 11:42] LABS: Bacteria,Urine 3+ /HPF (Negative); Bilirubin,Urine NEG (Negative); Blood,Urine NEG (Negative); Color,Urine Amber (Yellow); Mucus,Urine 2+ /HPF; Urobilinogen,Urine < 2.0 mg/dL (<2.0)
[2021-06-12] MEDS: SENNOSIDES/DOCUSATE SODIUM 8.6/50 MG TAB FEEDTUBE SCH (13:02)
--- NOTE | 2021-06-12 14:05 | Progress Note ---
Assessment and Plan Cultures: 05/11/2021 blood culture: No growth 05/15/2021 blood culture: No growth 05/29/2021 COVID-19 PCR: Positive 06/03/2021 tracheal aspirate: Stenotrophomonas 06/12/2021 blood culture: In process A/P: 51-year-old female with pancreatic cancer status post chemo and radiation, not considered a candidate for surgery, COPD, pulmonary fibrosis, chronic respiratory failure requiring 2 L nasal oxygen was admitted with acute onset abdominal pain: #Septic shock: on 2 pressors. #COVID-19 pneumonia, acute hypoxic respiratory failure: Completed Remdesivir, steroids (complete from COVID-19 standpoint), on hydrocortisone 100 mg q8 hrs as stress dose steroids. #Acute kidney injury #Hypercalcemia: likely from malignancy #Acute thrombocytopenia #Initial septic shock: Likely cholangitis from biliary dilatation, has indwelling biliary stent. Treated empirically with abx including meropenem. #Elevated LFTs: GI evaluated, ordered MRCP but was unable to be completed. CT abdomen pelvis showed persistent pancreatic head carcinoma with indwelling metallic stent. #History of pancreatic cancer status post chemo and radiation, not a surgical candidate #Acute on chronic respiratory failure: Has underlying pulmonary fibrosis. On the vent. Recs: -Follow-up blood, respiratory and urine cultures -Empiric meropenem, levofloxacin, vancomycin, renally adjusted -poor prognosis, recommend comfort care Dave Doyle MD, FACP, WAQAS [facility] ([facility]) O: [phone] F: [phone] Subjective Date of service: 06/12/21 Principal diagnosis: Septic shock; Pulm fibrosis; Hypoxemic resp failure; COVID- 19 infxn Interval history: Since last seen by me, patient developed progressive respiratory failure, became BiPAP dependent. She was supposed to be transition to inpatient hospice, COVID test was done for that reason, came back positive. She was started on steroids and Remdesivir. Following this she was intubated. Also developed complications including subcutaneous emphysema. Since yesterday afternoon and overnight, patient started spiking fever, T-max 101.5 F. Infectious diseases was consulted for additional evaluation. Labs show acute worsening of leukocytosis to 16.9, platelets dropped to 57, procalcitonin 44.65, calcium >13, creatinine 1.4. She is intubated, on multiple pressors. Objective - Exam Narrative Exam: Physical Exam: Constitutional: sedated, intubated, on the vent Head, Ears, Nose: Normocephalic, atraumatic. External ears, nose normal Eyes: Conjunctivae/corneas clear. No icterus. No ptosis. Neck: intubated Oral: intubated Cardiovascular: S1, S2 + Respiratory: AE fair bilaterally and equal GI: Soft, bowel sounds - Musculoskeletal: No pedal edema, no cyanosis. Skin: No rash or abscess Hem/Lymphatic: No palpable cervical or supraclavicular nodes. No lymphangitis Psych: no agitation Neurological: sedated, intubated, on the vent, exam limited - Constitutional Vitals: Vital Signs Temp Pulse Resp BP Pulse Ox 97.9 F 100 H 25 H 53/18 87 06/12/21 12:00 06/12/21 13:16 06/12/21 13:16 06/12/21 13:16 06/12/21 13:16 Temperature -Last 24 Hours Temperature 97.9 F Temperature 98.7 F Temperature 100.8 F Temperature 101.5 F Temperature 98.4 F Temperature 100.3 F Temperature 100.3 F - Labs CBC & Chem 7: 06/12/21 06:03 06/12/21 10:20 Labs: Abnormal lab results 06/11/21 06/11/21 06/11/21 Range/Units 15:41 18:30 21:54 WBC (4.5-11.0) K/mm3 RBC (3.65-5.03) M/mm3 Hgb (10.1-14.3) gm/dl Hct (30.3-42.9) % MCV (79-97) fl MCHC (30-34) % RDW (13.2-15.2) % Plt Count (140-440) K/mm3 Sodium (137-145) mmol/L Potassium (3.6-5.0) mmol/L Carbon Dioxide (22-30) mmol/L BUN (7-17) mg/dL Creatinine (0.6-1.2) mg/dL POC Glucose 63 L 118 H 66 L (70-105) mg/dL Calcium (8.4-10.2) mg/dL Urine WBC (Auto) (0.0-6.0) /HPF 06/11/21 06/12/21 06/12/21 Range/Units 23:57 01:36 06:03 WBC 16.9 H (4.5-11.0) K/mm3 RBC 2.74 L (3.65-5.03) M/mm3 Hgb 8.5 L (10.1-14.3) gm/dl Hct 30.2 L (30.3-42.9) % MCV 110 H (79-97) fl MCHC 28 L (30-34) % RDW 26.3 H (13.2-15.2) % Plt Count 57 L (140-440) K/mm3 Sodium (137-145) mmol/L Potassium (3.6-5.0) mmol/L Carbon Dioxide (22-30) mmol/L BUN (7-17) mg/dL Creatinine (0.6-1.2) mg/dL POC Glucose 64 L 113 H (70-105) mg/dL Calcium (8.4-10.2) mg/dL Urine WBC (Auto) (0.0-6.0) /HPF 06/12/21 06/12/21 06/12/21 Range/Units 06:03 10:20 10:45 WBC (4.5-11.0) K/mm3 RBC (3.65-5.03) M/mm3 Hgb (10.1-14.3) gm/dl Hct (30.3-42.9) % MCV (79-97) fl MCHC (30-34) % RDW (13.2-15.2) % Plt Count (140-440) K/mm3 Sodium 148 H (137-145) mmol/L Potassium 6.1 H* D 5.1 H (3.6-5.0) mmol/L Carbon Dioxide 18 L D 13 L (22-30) mmol/L BUN 53 H 46 H (7-17) mg/dL Creatinine 1.6 H D 1.4 H (0.6-1.2) mg/dL POC Glucose (70-105) mg/dL Calcium > 13.0 H* D (8.4-10.2) mg/dL Urine WBC (Auto) 8.0 H (0.0-6.0) /HPF 06/12/21 Range/Units 11:52 WBC (4.5-11.0) K/mm3 RBC (3.65-5.03) M/mm3 Hgb (10.1-14.3) gm/dl Hct (30.3-42.9) % MCV (79-97) fl MCHC (30-34) % RDW (13.2-15.2) % Plt Count (140-440) K/mm3 Sodium (137-145) mmol/L Potassium (3.6-5.0) mmol/L Carbon Dioxide (22-30) mmol/L BUN (7-17) mg/dL Creatinine (0.6-1.2) mg/dL POC Glucose 30 L (70-105) mg/dL Calcium (8.4-10.2) mg/dL Urine WBC (Auto) (0.0-6.0) /HPF - Imaging and cardiology Chest x-ray: report reviewed, image reviewed (b/l pna)
[2021-06-12] MEDS: DEXTROSE 5% IN WATER 1,000 ML IV SCH (14:13)
--- NOTE | 2021-06-12 14:13 | Progress Note ---
Assessment and Plan Assessment and plan: This is a 48-year-old female with past medical history of COPD, pancreatic cancer with radiation s/p pancreatic stent placement, pulmonary fibrosis, chronic respiratory failure on 2 L NC at home initially admitted for admitted with sepsis, transaminitis and lactic acidosis. Initial plan was to discharge patient to inpatient hospice, however she was denied since her COVID test came back positive. Patient decompensated on 06/02 with severe hypoxia on 100% on Bipap, family notified and wanted to keep patient as a FULL code status. Patient was intubated and now on ventilatory support. Hospital Course to Date: ........ 06/02: Patient intubated and sedated, RASS -5. Now hypotensive with tachycardia, on levophed gtt, continue continuous IVF and titrate pressors for MAP above 65. Hypokalemia and hypomagnesemia repleted, repeat labs 4hrs post treatment. Severely hypoglycemic this am, per RN TF has been on hold since patient was on Bipap. Low BG treated per hypoglycemic protocol, plan to resume TF today. 06/03: RASS of 0 to -1 this am, following commands, remains on sedation. Mirza in WBCs this am, patient remains afebrile, blood culture and sputum culture pen ding. Probably reactive, patient on IV steroids, remdesevir starting tonight. Continue to trend CBC. Conference call with [facility] and patient's son and daughter today. All questions and concerns were addressed. 06/04: started on stress dose steroids, BLE dopplars pending, Remove almaraz and request records. 06/05: HIT panel sent today, started Arixtra, decrease free water flush, almaraz replaced re retention, Will not treat gram-negative in tracheal aspirate until speciation given normal WBCs and afebrile state. increase in the long acting insulin. Levophed titrated off 06/06: Noted to have subcutaneous air and his stat CXR showed no pneumothorax, vent changes per CCM. Hypokalemia which was repleted. Right upper extremity Doppler ultrasound obtained due to swelling but shows no DVT 06/07: No acute events reported overnight. Sedation increased today due to tachypnea. 06/08: No acute events overnight, will order CA 199, hospital records reviewed, decreasing FiO2. Reglan started due to increased to feeding residuals and placed back on Levophed. 06/09: This morning RN reported patient had a cuff leak and was tachycardic/hypoxic. RT amended cuff leak and sedation was increased which help ed the patient. Levophed transition as needed for adequate sedation. 06/10: Hyperkalemia today, given Kayexalate. Noted peaked T waves on bedside monitor and ECG obtained. Increasing free water flush due to slight hypernatremia. Updated son over the phone of current events and told him that family to discuss goals of care as trach likely needed if they would like to continue with treatments. Son stated that him and his sister humza were discussing this. He asked about a [place] valve however informed that that would be considered after patient able to be sustained on room air. Son stated they would like to have a Zoom meeting with family in [place] along with sister humza next week. 06/11: HR in the 140s this am, max on levophed gtt MAP remains in the low 50s. X1L LR given, HR improved in the 120s. Vasopressin was also added to maintain MAP at 65. Stat CXR and 2D echo was also ordered. FWF added for hypernatremia. 06/12: Patient on 3pressors this am, MAP sustaining in the 40-50s, SPO2 at 87 on 100 Fio2. Febrile overnight, now with acute kidney injury. Patient's family was notified by [facility] who opted for AND/DNR status. AND paperworks were signed by the ceramic engineer and the attending. Plan to continue supportive care for now, the patient's three children are making arranging to come see patient today. Assessment and Plan #Neuro: Sedated -Intubated and sedated on Fentanyl and propofol, RASS 0 to -1 -Titrate seadtion for RASS goal 0 to -2 -Daily SAT and SBT per CCM -Avoid benzodiazepine to reduce the possibility of delirium -PRN analgesia for CPOT greater than 3 -Maintenance of sleep-wake cycle #CV: Hypotension #Tachycardia #Septic Shock #h/o HTN -With low BP and tachycardic, HR in the 140s this am -Now on three pressors. MAP sustaining in the low 50s -Continue blood pressure monitor per protocol -Titrate pressors for MAP goal above 65 -Maintain adequate perfusion -ED Echo pending -Hold home htn medications -CCM consulted, appreciate recommendations #Respiratory: Acute on chronic respiratory failure #COVID positive #h/o pulmonary fibrosis #O2 Dependent at home -Intubated on 06/02, decompensated,Low SPO2 in the 70s on 100% Bipap -Vent Setting: A/C-100%,8,25,350 -AM ABG noted -CCM consulted, appreciate recommendations -Continue IV Steroids and Nebs per CCM -VAP bundle addressed -Aspiration precaution HOB above 30 -Daily SBT and SAT trials as tolerated -Daily ABG and CXR per [facility] -Continue SPO2 monitoring for SPO2 goal above 92% #GI:[place]offee [place] Emesis #Transaminitis #H/o Pancreatic CA s/p stent placement #Biliary dilation #R/o cholangitis #Nausea/Vomiting- Resolved -CT abdomen/pelvis showed pancreatic cancer with metallic stent with possible occlusion, mild pelvic fluid and mild colonic thickening -No GI intervention per GI. GI signed off -Enteral nutrition on hold -Nutrition consulted -NGT to LIS -Now on protonix gtt -H&H stable -Continue BR -PRN antiemetic for N/V #:Acute Kidney Injury(KRISTYN) most likely ATN #Hyperkalemia #Hypernatremia #Urinary retention-resolved -Patient's renal function worsen this am, most likely due to hypotension/hypoperfusion -Patient on 3 pressors -Continue IVF rehydration -High K treated per protocol, repeat BMP 4hrs post treatment -Continue to monitor and replete electrolytes as needed -Almaraz reinserted on 06/05 d/t retention -Strict intake and output -Keep patient at a net negatibe balance -Daily weights -Renally dose meds, avoid nephrotoxins -Repeat Labs ordered -Trend BMP #ID: Septic Jenny #Leukocytosis #COVID positive -Most likely hepatobiliary related -COVID swab now positive -X2 previous Blood cultures set where negative -S/p X5days of Remdesevir -Completed IV Abx course -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 -Patient remains febrile this am, WBCs spiked -Will panculture patient -ID reconsulted -Continue IV steroids -Daily CBC monitor #Heme/ONC:Acute Blood Loss #Thrombocytopenia #h/o Pancreatic Cancer #s/p pancreatic stent placement -New [place] emesis this am -H&H stable -Arixta on hold -S/p radiation -F/U with outpatient with own oncologist -possible stent occlusion, MRCP cancel patient too unstable -Not a surgical candidate per GI -RUE swelling- RUE doppler neg DVT -SCD to bilateral lower extremities while in bed -Trend CBC -Close monitor for s/s of active bleeding #Endo:Hyperglycemia #Hypoglycemia-resolved -Continue SSI Q6hrs -Continue lantus -Avoid hypoglycemia The high probability of a clinically significant, sudden or life threatening deterioration of the [Multiple] system(s) required my full and direct attention, intervention and personal management. The aggregate critical care time was [60] minutes. This time is in addition to time spent performing reported procedures but includes the following: [x] Data Review and interpretation [x] Patient assessment and monitoring of vital signs [x] Documentation [x] Medication orders and management Disposition Plan: ICU Total Time Spent with Patient (Minutes): 60 History Interval history: Patient seen and examined at the bedside. Remains intubated and on fentanyl and propofol gtt. Continue to decompensate this am, currently on 3 pressors MAP sustaining in the 40-50s. Febrile overnight. Now on protonix gtt due to coffee ground emesis/ gastric residual, NGT to [facility] Hospitalist Physical - Constitutional Vitals: Temp Pulse Resp BP Pulse Ox 97.9 F 100 H 25 H 101/42 88 06/12/21 12:00 06/12/21 14:00 06/12/21 14:00 06/12/21 14:00 06/12/21 14:00 General appearance: Present: severe distress, other (Intubated and Sedated) - EENT Eyes: Present: irregular pupil - Respiratory Respiratory effort: labored, accessory muscle use Respiratory: bilateral: rhonchi - Cardiovascular Rhythm: regular Heart Sounds: Present: S1 & S2 - Extremities Extremities: no ischemia, pulses intact, pulses symmetrical Extremity abnormal: edema - Peripheral Assessment Generalized Edema Type: Non-pitting Edema Degree: 1+ Capillary Refill: < 3 seconds Skin Temperature: Warm Peripheral Pulses: within normal limits - Abdominal General gastrointestinal: soft, non-distended, hypoactive bowel sounds - Integumentary Integumentary: Present: warm, dry - Psychiatric Psychiatric: other (Intubated and Sedated) - Neurologic Neurologic: other (Intubated and Sedated) - Allied Health Allied health notes reviewed: nursing Results - Labs CBC & Chem 7: 06/12/21 06:03 06/12/21 10:20 Labs: Laboratory Last Values WBC 16.9 K/mm3 (4.5-11.0) H 06/12/21 06:03 RBC 2.74 M/mm3 (3.65-5.03) L 06/12/21 06:03 Hgb 8.5 gm/dl (10.1-14.3) L 06/12/21 06:03 Hct 30.2 % (30.3-42.9) L 06/12/21 06:03 MCV 110 fl (79-97) H 06/12/21 06:03 MCH 31 pg (28-32) 06/12/21 06:03 MCHC 28 % (30-34) L 06/12/21 06:03 RDW 26.3 % (13.2-15.2) H 06/12/21 06:03 Plt Count 57 K/mm3 (140-440) L 06/12/21 06:03 Lymph % (Auto) 12.8 % (13.4-35.0) L 06/02/21 08:59 Murray % (Auto) 1.0 % (0.0-7.3) 06/02/21 08:59 Eos % (Auto) 10.2 % (0.0-4.3) H 06/02/21 08:59 Baso % (Auto) 0.5 % (0.0-1.8) 06/02/21 08:59 Lymph # (Auto) 0.6 K/mm3 (1.2-5.4) L 06/02/21 08:59 Murray # (Auto) 0.0 K/mm3 (0.0-0.8) 06/02/21 08:59 Eos # (Auto) 0.5 K/mm3 (0.0-0.4) H 06/02/21 08:59 Baso # (Auto) 0.0 K/mm3 (0.0-0.1) 06/02/21 08:59 Add Manual Diff Complete 05/12/21 04:08 Total Counted 200 05/12/21 04:08 Seg Neutrophils % 75.5 % (40.0-70.0) H 06/02/21 08:59 Seg Neuts % (Manual) 85.5 % (40.0-70.0) H 05/12/21 04:08 Band Neutrophils % 8.5 % 05/12/21 04:08 Lymphocytes % (Manual) 2.0 % (13.4-35.0) L 05/12/21 04:08 Monocytes % (Manual) 3.0 % (0.0-7.3) 05/12/21 04:08 Eosinophils % (Manual) 1.0 % (0.0-4.3) 05/12/21 04:08 Nucleated RBC % Not Reportable 05/12/21 04:08 Seg Neutrophils # 3.6 K/mm3 (1.8-7.7) 06/02/21 08:59 Seg Neutrophils # Man 19.5 K/mm3 (1.8-7.7) H 05/12/21 04:08 Band Neutrophils # 1.9 K/mm3 05/12/21 04:08 Lymphocytes # (Manual) 0.5 K/mm3 (1.2-5.4) L 05/12/21 04:08 Abs React Lymphs (Man) 0.0 K/mm3 05/12/21 04:08 Monocytes # (Manual) 0.7 K/mm3 (0.0-0.8) 05/12/21 04:08 Eosinophils # (Manual) 0.2 K/mm3 (0.0-0.4) 05/12/21 04:08 Basophils # (Manual) 0.0 K/mm3 (0.0-0.1) 05/12/21 04:08 Metamyelocytes # 0.0 K/mm3 05/12/21 04:08 Myelocytes # 0.0 K/mm3 05/12/21 04:08 Promyelocytes # 0.0 K/mm3 05/12/21 04:08 Blast Cells # 0.0 K/mm3 05/12/21 04:08 WBC Morphology Not Reportable 05/12/21 04:08 Hypersegmented Neuts Not Reportable 05/12/21 04:08 Hyposegmented Neuts Not Reportable 05/12/21 04:08 Hypogranular Neuts Not Reportable 05/12/21 04:08 Smudge Cells Not Reportable 05/12/21 04:08 Toxic Granulation Not Reportable 05/12/21 04:08 Toxic Vacuolation Not Reportable 05/12/21 04:08 Dohle Bodies Not Reportable 05/12/21 04:08 Pelger-Huet Anomaly Not Reportable 05/12/21 04:08 Elizabeth Rods Not Reportable 05/12/21 04:08 Platelet Estimate Consistent w auto 05/12/21 04:08 Clumped Platelets Not Reportable 05/12/21 04:08 Plt Clumps, EDTA Not Reportable 05/12/21 04:08 Large Platelets Not Reportable 05/12/21 04:08 Giant Platelets Not Reportable 05/12/21 04:08 Platelet Satelliting Not Reportable 05/12/21 04:08 Plt Morphology Comment Not Reportable 05/12/21 04:08 RBC Morphology Not Reportable 05/12/21 04:08 Dimorphic RBCs Not Reportable 05/12/21 04:08 Polychromasia Not Reportable 05/12/21 04:08 Hypochromasia Not Reportable 05/12/21 04:08 Poikilocytosis Not Reportable 05/12/21 04:08 Anisocytosis 1+ 05/12/21 04:08 Microcytosis Not Reportable 05/12/21 04:08 Macrocytosis Not Reportable 05/12/21 04:08 Spherocytes Not Reportable 05/12/21 04:08 Pappenheimer Bodies Not Reportable 05/12/21 04:08 Sickle Cells Not Reportable 05/12/21 04:08 Target Cells Not Reportable 05/12/21 04:08 Tear Drop Cells Not Reportable 05/12/21 04:08 Ovalocytes Not Reportable 05/12/21 04:08 Helmet Cells Not Reportable 05/12/21 04:08 Sibley-Between Bodies Not Reportable 05/12/21 04:08 [place] Rings Not Reportable 05/12/21 04:08 Marcin Cells Not Reportable 05/12/21 04:08 Bite Cells Not Reportable 05/12/21 04:08 Crenated Cell Not Reportable 05/12/21 04:08 Elliptocytes Not Reportable 05/12/21 04:08 Acanthocytes (Spur) Not Reportable 05/12/21 04:08 Rouleaux Not Reportable 05/12/21 04:08 Hemoglobin C Crystals Not Reportable 05/12/21 04:08 Schistocytes Not Reportable 05/12/21 04:08 Malaria parasites Not Reportable 05/12/21 04:08 Tahir Bodies Not Reportable 05/12/21 04:08 Hem Pathologist Commnt No 05/12/21 04:08 PT 15.9 Sec. (12.2-14.9) H 06/05/21 06:00 INR 1.15 (0.87-1.13) H 06/05/21 06:00 APTT 37.1 Sec. (24.2-36.6) H 06/05/21 06:00 D-Dimer 1938.43 ng/mlDDU (0-234) H 06/07/21 04:36 ABG pH 7.366 (7.320-7.450) 06/11/21 06:20 POC ABG pCO2 61.8 mmHg (32.0-48.0) H 06/11/21 06:20 ABG pCO2 55.5 mm Hg 06/07/21 10:50 POC ABG pO2 55.2 mmHg (83-108) L 06/11/21 06:20 ABG pO2 66.6 mm Hg (80.0-90.0) L 06/07/21 10:50 POC ABG HCO3 34.6 06/11/21 06:20 ABG HCO3 35.7 mmol/L (20.0-26.0) H 06/07/21 10:50 ABG O2 Saturation 88.2 (0-100) 06/11/21 06:20 ABG O2 Content 8.3 (0.0-44) 06/07/21 10:50 POC ABG Base Excess 7.6 06/11/21 06:20 ABG Base Excess 10.3 mmol/L (-2.0-3.0) H 06/07/21 10:50 ABG Hemoglobin 11.2 (12.0-17.5) L 06/11/21 06:20 ABG Oxyhemoglobin 86.9 (94-98) L 06/11/21 06:20 ABG Carboxyhemoglobin 2.3 % (0.0-5.0) 06/07/21 10:50 ABG Methemoglobin 0 (0.0-1.5) 06/11/21 06:20 ABG Sodium 146.1 mmol/L (136.0-145.0) H 06/11/21 06:20 ABG Potassium 4.5 mmol/L (3.40-4.50) 06/11/21 06:20 ABG Chloride 105.0 mmol/L (98-107) 06/11/21 06:20 ABG Glucose 200 mg/dL (65-95) H 06/11/21 06:20 Oxyhemoglobin 94.7 % (95.0-99.0) L 06/07/21 10:50 Carboxyhemoglobin 1.5 (0.5-1.5) 06/11/21 06:20 FiO2 80 % 06/07/21 10:50 FiO2 % 90 06/11/21 06:20 Sodium 145 mmol/L (137-145) 06/12/21 10:20 Potassium 5.1 mmol/L (3.6-5.0) H 06/12/21 10:20 Chloride 105.9 mmol/L (98-107) 06/12/21 10:20 Carbon Dioxide 13 mmol/L (22-30) L 06/12/21 10:20 Anion Gap 31 mmol/L 06/12/21 10:20 BUN 46 mg/dL (7-17) H 06/12/21 10:20 Creatinine 1.4 mg/dL (0.6-1.2) H 06/12/21 10:20 Estimated GFR 39 ml/min 06/12/21 10:20 BUN/Creatinine Ratio 33 % 06/12/21 10:20 Glucose 68 mg/dL (65-100) 06/12/21 10:20 POC Glucose 73 mg/dL (70-105) 06/12/21 12:37 Hemoglobin A1c 5.2 % (4-6) 05/12/21 04:08 Lactic Acid 3.30 mmol/L (0.7-2.0) H* 05/12/21 Unknown Calcium > 13.0 mg/dL (8.4-10.2) H* D 06/12/21 10:20 Phosphorus 5.20 mg/dL (2.5-4.5) H 06/10/21 08:19 Magnesium 2.20 mg/dL (1.7-2.3) 06/10/21 08:19 Ferritin 1287.0 ng/mL (10.0-200.0) H 06/07/21 04:36 Total Bilirubin 0.80 mg/dL (0.1-1.2) 06/06/21 05:26 Direct Bilirubin 1.6 mg/dL (0-0.2) H 05/23/21 10:15 Indirect Bilirubin 0.7 mg/dL 05/23/21 10:15 AST 25 units/L (5-40) 06/06/21 05:26 ALT 42 units/L (7-56) 06/06/21 05:26 Alkaline Phosphatase 207 units/L (35-129) H 06/06/21 05:26 Lactate Dehydrogenase 270 units/L (91-180) H 06/07/21 04:36 C-Reactive Protein 26.70 mg/dL (0.00-1.30) H 06/07/21 04:36 NT-Pro-B Natriuret Pep 2326 pg/mL (0-900) H 06/02/21 22:00 Total Protein 5.5 g/dL (6.3-8.2) L 06/06/21 05:26 Albumin 2.0 g/dL (3.9-5) L 06/06/21 05:26 Albumin/Globulin Ratio 0.6 % 06/06/21 05:26 Triglycerides 95 mg/dL (2-149) 06/07/21 04:36 Lipase 3 units/L (13-60) L 05/11/21 05:43 Procalcitonin 44.65 ng/mL (<0.15) 06/12/21 10:20 Arterial Blood Glucose 200 mg/dL (65-95) H 06/11/21 06:20 Arterial Blood Ionized Calcium 4.8 mg/dL (4.6-5.3) 06/11/21 06:20 Urine Color [place]isi (Yellow) 06/12/21 10:45 Urine Turbidity Cloudy (Clear) 06/12/21 10:45 Urine pH 7.0 (5.0-7.0) 06/12/21 10:45 Ur Specific [place] 1.017 (1.003-1.030) 06/12/21 10:45 Urine Protein 100 mg/dl mg/dL (Negative) 06/12/21 10:45 Urine Glucose (UA) Neg mg/dL (Negative) 06/12/21 10:45 Urine Ketones Neg mg/dL (Negative) 06/12/21 10:45 Urine Blood Neg (Negative) 06/12/21 10:45 Urine Nitrite Neg (Negative) 06/12/21 10:45 Urine Bilirubin Neg (Negative) 06/12/21 10:45 Urine Urobilinogen < 2.0 mg/dL (<2.0) 06/12/21 10:45 Ur Leukocyte Esterase Neg (Negative) 06/12/21 10:45 Urine WBC (Auto) 8.0 /HPF (0.0-6.0) H 06/12/21 10:45 Urine RBC (Auto) 1.0 /HPF (0.0-6.0) 06/12/21 10:45 U Epithel Cells (Auto) 1.0 /HPF (0-13.0) 06/12/21 10:45 Urine Bacteria (Auto) 3+ /HPF (Negative) 06/12/21 10:45 Urine Mucus 2+ /HPF 06/12/21 10:45 Vancomycin Trough 25.3 ug/mL (5.0-20.0) H 05/14/21 15:20 Coronavirus (PCR) Positive (Negative) A 05/29/21 08:20 Hepatitis A IgM Ab Non-reactive (NonReactive) 05/12/21 12:30 Hep Bs Antigen Nonreactive (Negative) 05/12/21 12:30 Hep B Core IgM Ab Non-reactive (NonReactive) 05/12/21 12:30 Hepatitis C Antibody Non-reactive (NonReactive) 05/12/21 12:30 Microbiology: Microbiology 06/12/21 10:20 Peripheral/Venous Blood Culture - Preliminary Culture in Progress 06/12/21 10:20 Peripheral/Venous Blood Culture - Preliminary Culture in Progress Almaraz/IV: Voiding Method Indwelling Catheter Active Medications - Current Medications Current Medications: Generic Name Dose Route Start Last Admin Trade Name Freq PRN Reason Stop Dose Admin Acetaminophen 650 mg 05/11/21 21:40 05/14/21 20:06 Acetaminophen 325 Mg Tab PO 650 mg Q4H PRN Administration Pain MILD(1-3)/Fever >100.5/WOODS Lipase/Protease/Amylase 1 each 05/22/21 16:30 Lipase 10,500/Protease 25,000/Amylase 43,750 (Units) Cap FEEDTUBE PRN PRN For Clogged Feeding Tube Arformoterol Tartrate 15 mcg 05/12/21 08:00 06/12/21 08:39 Arformoterol 15 Mcg/2 Ml Nebu IH 15 mcg Q12HRT ABRAHAN Administration Ascorbic Acid 500 mg 06/02/21 22:00 06/12/21 09:01 Ascorbic Acid 500 Mg Tab PO 500 mg BID ABRAHAN Administration Budesonide 0.5 mg 05/12/21 08:00 06/12/21 08:39 Budesonide 0.5 Mg/2 Ml Nebu IH 0.5 mg Q12HRT ABRAHAN Administration Dextrose 25 ml 06/12/21 07:49 06/12/21 12:03 Dextrose 50% In Water (25gm) 50 Ml Syringe IV 25 ml Q30MIN PRN Administration Hypoglycemia Protocol Fentanyl 50 mcg 06/02/21 05:20 Fentanyl 100 Mcg/2 Ml Inj IV Q10MIN PRN ANALGESIA Haloperidol Lactate 5 mg 05/19/21 15:00 06/01/21 21:04 Haloperidol Lactate 5 Mg/1 Ml Inj IV 5 mg Q8H PRN Administration Agitation Hydrocortisone Sodium Succinate 100 mg 06/04/21 14:00 06/12/21 13:15 Hydrocortisone Sod Succ 100 Mg/2 Ml Vial IV 100 mg Q8HR ABRAHAN Administration Hydrophilic Ointment 1 applic 06/02/21 17:44 Lip Therapy Vaseline TP Q2HR PRN Dry Lips NORepinephrine/NS 8 MG-250 ML 8 mg in 250 mls @ 3.75 mls/hr 06/02/21 06:00 06/12/21 07:33 Norepinephrine/Ns 8 Mg-250 Ml (Double Conc) IV 30 mcg/min TITRATE ABRAHAN 56.25 mls/hr Administration Protocol 2 MCG/MIN Propofol 1,000 mg in 100 mls @ 1.932 mls/hr 06/02/21 06:00 06/12/21 05:14 Diprivan 10 Mg/Ml IV 15 mcg/kg/min TITR ABRAHAN 5.796 mls/hr Administration Protocol 5 MCG/KG/MIN Fentanyl Citrate 2,000 mcg in 100 mls @ 3.22 mls/hr 06/02/21 06:00 06/12/21 13:36 Fentanyl Drip Premix IV 4 mcg/kg/hr TITR ABRAHAN 12.88 mls/hr Administration Protocol 1 MCG/KG/HR Vasopressin 20 unit/ Sodium 101 mls @ 9.09 mls/hr 06/11/21 12:00 06/12/21 08:17 Chloride IV 0.03 units/min TITR ABRAHAN 9.09 mls/hr Administration Protocol 0.03 UNITS/MIN Phenylephrine HCl 100 mg/ 100 mls @ 3 mls/hr 06/11/21 18:00 06/12/21 13:31 Sodium Chloride IV 370 mcg/min TITR ABRAHAN 22.2 mls/hr Administration Protocol 50 MCG/MIN Pantoprazole Sodium 80 mg/ 100 mls @ 10 mls/hr 06/11/21 23:00 06/12/21 07:34 Sodium Chloride IV 8 mg/hr DIRECT ABRAHAN 10 mls/hr Administration 8 MG/HR Dextrose 1,000 mls @ 75 mls/hr 06/11/21 23:00 06/11/21 23:47 D5w IV 75 mls/hr DIRECT ABRAHAN Administration Levofloxacin/Dextrose 750 mg in 150 mls @ 100 mls/hr 06/13/21 10:00 Levaquin 750mg/150ml IV Q48HR [facility] Protocol MEROPENEM/NS 1 GRAM/100 ML 1 gram in 100 mls @ 100 mls/hr 06/12/21 15:00 Merrem/Ns 1 Gram/100 Ml IV Q12H [facility] Protocol Vancomycin HCl 1,000 mg/ 270 mls @ 333 mls/hr 06/13/21 10:00 Sodium Chloride IV Q24HR [facility] Protocol Insulin Glargine 10 units 06/08/21 22:00 06/11/21 22:03 Insulin Glargine 100 Units/Ml SUB-Q Not Given QHS [facility] Insulin Human Lispro 0 unit 05/17/21 12:00 06/12/21 13:04 Insulin Lispro 100 Unit/Ml SUB-Q Not Given Q6HR [facility] Protocol Metoclopramide HCl 10 mg 06/08/21 12:00 06/12/21 12:00 Metoclopramide 10 Mg/2 Ml Inj IV 10 mg Q6HR [facility] Administration Multi-Ingred Cream/Lotion/Oil/Oint 1 applic 06/02/21 17:44 Mineral Oil/Petrolatum, White Ophth Oint 3.5 Gm OU Q4HR PRN Dry Eye(s) Ondansetron HCl 4 mg 05/11/21 21:40 05/15/21 09:57 Ondansetron 4 Mg/2 Ml Inj IV 4 mg Q8H PRN Administration Nausea And Vomiting Senna/Docusate Sodium 1 tab 06/02/21 22:00 06/12/21 13:02 Sennosides/Docusate Sodium 8.6/50 Mg Tab FEEDTUBE Not Given BID ABRAHAN Simple Syrup 15 ml 05/22/21 16:30 Simple Syrup 15 Ml FEEDTUBE PRN PRN Hypoglycemia Simple Syrup 30 ml 05/22/21 16:30 Simple Syrup 15 Ml FEEDTUBE PRN PRN Hypoglycemia Sodium Bicarbonate 325 mg 05/22/21 16:30 Sodium Bicarbonate 325 Mg Tab FEEDTUBE PRN PRN For Clogged Feeding Tube Sodium Chloride 10 ml 05/11/21 22:00 06/12/21 10:00 Sodium Chloride 0.9% 10 Ml Flush Syringe IV 10 ml BID ABRAHAN Administration Sodium Chloride 10 ml 05/11/21 21:40 05/23/21 21:00 Sodium Chloride 0.9% 10 Ml Flush Syringe IV 10 ml PRN PRN Administration LINE FLUSH Zinc Sulfate 220 mg 06/02/21 22:00 06/12/21 09:05 Zinc Sulfate 220 Mg Cap PO 220 mg BID ABRAHAN Administration Nutrition/Malnutrition Assess - Dietary Evaluation Nutrition/Malnutrition Findings: Nutrition Notes Start: 05/13/21 09:47 Freq: Status: Active Protocol: Document 06/11/21 13:27 MARITZA (Rec: 06/11/21 13:31 [facility] [id number]) Nutrition Notes Initial or Follow up Reassessment Current Diagnosis COPD,Respiratory Failure Other Pertinent Diagnosis COVID-19 (+), Pancreatic CA, pulmonary fibrosis Current Diet TF - Glucerna 1.2 at 50ml/hr Labs/Tests POC Glu range: 123-227 Pertinent Medications Propofol at 7.728ml/hr ( Provides 204 kcal), Levophed gtt Height 5 ft 2 in Weight 64.4 kg Levels Body Weight (kg) 50.00 BMI 25.9 Weight Status Overweight Subjective/Other Information Per RN, TF restarted and pt tolerating at goal rate. Pt remains on vent support. Percent of energy/protein needs met: 100% energy 94% pro Burn Absent Trauma Absent #2 Nutrition Diagnosis Malnutrition Diagnosis Progress(for reassessment Continues documentation) Is patient on ventilator? Yes Is Patient Ambulatory and/or Out of Bed No REE-([facility]-confined to bed) 1447.020 Calculation Used for Recommendations [facility] Additional Notes Pro needs 1.2-2g/k-129g/ day Fluid needs 1ml/kcal Nutrition Intervention Nutrition Support: Continue Glucerna 1.2 at 50ml/ hr with 80ml water flush q4h. Kcal 1,440 Protein (gm) 72 Carbohydrates (gm) 137 Fat (gm) 72 Fluid (mL) 966 Fiber (gm) 19 Goal #1 TF tolerance Goal #2 TF to meet at least 75% energy and pro needs Follow-Up By: 06/15/21 Additional Comments F/U: stable TF, vent status, propofol
--- NOTE | 2021-06-12 14:24 | Progress Note ---
Assessment and Plan Acute on chronic respiratory failure on home O2 of 2 L nasal cannula- currently intubated on MVS Septic shock possible hepatobiliary source, possibly pneumonia with increasing vent requirements Lactic acidosis h/o pulmonary fibrosis, Transaminitis, biliary dilation, r/o cholangitis Hyperchloremia, metabolic acidosis, Hypernatremia h/o pancreatic head cancer- chemoradiation therapy h/o Hypertension Thrombocytopenia Severe hyperkalemia Medical management of hyperkalemia- 12 Lead EKG ordered, calcium IV dextrose with insulin Bicarbonate Kayxelate give Follow up BMP ordered -Titrate vasopressor support to MAP >65 -Tube feeding on hold -Continue Fentanyl and Propofol- titrate to RASS of -1 to -2. -Monitor ventilatory synchrony -Stress ulcer prophylaxis- on therapeutic Pantoprazole infusion -Hold VTE pharmaco prophylaxis- she has thrombocytopenia -ID consulted, input appreciated -Follow blood , urine and sputum cultures - continue daily SAT and SBT assessment as tolerated - sedation prn for target RASS 0 to -1 - VAP bundle addressed, aspiration precatuions HOB >40 - continue lung protective strategies - continue bronchodilators with pulmonary hygiene per RT - MRCP pending as she remains tenuous from a respiratory standpoint - accuchecks with glycemic control per SSI (While critically ill target blood g lucose of 140-180 mg/dL; avoid hypoglycemia) - avoid nephrotoxins, renally dose all medications - Maintenance of sleep-wake cycle, avoid delirium - PT/OT/ROM exercises - mobility , off loading and frequent turning per protocol to prevent pressure ulcers -Continue Rivas catheter- critically ill and has had episodes of urinary retention - Monitor hemodynamics closely - continue other care per attending / other consultants - discharge planning ongoing concurrently COVID SPECIFIC INTERVENTIONS - Remdesivir as per ID/Pulmonary developed protocols, complete course - continue systemic steroids for severe COVID-19 infection empirically (on Solucortef) - zinc and vitamin C supplementation - Monitor inflammatory markers per facility protocol - ferritin, Ddimer, CRP - Anticoagulation per system Protocol based on d-dimer and clinical considerations - no prophylaxis secondary to GI bleed and thrombocytopenia - Contact and airborne isolation per facility protocol I had a long discussion with the patient's daughter and son. The 3rd son was unable to be a part of the conversation I discussed the decline in the past 24 hours, she now has 3 pressor shock, increasing ventilatory support and with worsening renal function On the background of cancer and COVID her prognosis is grave. They decided on a DNAR status, but no de-escalation of care. They have asked permission to come in to see their mother. They have also asked that we notify their brother to allow for him to come see the patient. I have communicated this to case management. Code status changed to DNAR Appropriate documentation in the paper chart CONDITION: CRITICAL PROGNOSIS: GUARDED CODE STATUS: DNAR The high probability of a clinically significant, sudden or life-threatening deterioration of the [respiratory, cardiovascular, GI & neurologic] system(s) required my full and direct attention, intervention and personal management. The aggregate critical care time was [45 ] minutes without overlap. Time includes spent on; [x] Data Review and interpretation [x] Patient assessment and monitoring of vital signs [x] Documentation [x] Medication orders and management Subjective Date of service: 06/12/21 Principal diagnosis: Septic shock; Pulm fibrosis; Hypoxemic resp failure; COVID- 19 infxn Interval history: Follow up for: acute on chronic resp failure on MVS ; Septic shock; COPD, pancreatic cancer with radiation s/p pancreatic stent placement, pulmonary fibrosis, lactic acidosis; COVID positive Seen and examined at bedside; 24hour events reviewed; nursing and respiratory care staff consulted; no adverse overnight events reported to me; resting in bed; remains on MVS, FIO2 100% PEEP +8 , hypotension with Norepinephrine now up to 30 mcg, on Vasopressin and Neosynephrine. Coffee ground output from NGT, tube feedings are on hold Tachycardia with tachypnea Was started on Pantoprazole infusion. Objective Vital Signs - 12hr 06/12/21 06/12/21 06/12/21 02:30 02:45 03:00 Temperature Pulse Rate 125 H 126 H 126 H Pulse Rate [ Bilateral Throughout] Pulse Rate [ From Monitor] Respiratory 26 H 26 H 24 Rate Respiratory Rate [Bilateral Throughout] Blood Pressure 113/51 111/57 111/54 O2 Sat by Pulse 89 88 88 Oximetry 06/12/21 06/12/21 06/12/21 03:15 03:30 03:45 Temperature Pulse Rate 126 H 126 H 126 H Pulse Rate [ Bilateral Throughout] Pulse Rate [ From Monitor] Respiratory 25 H 25 H 25 H Rate Respiratory Rate [Bilateral Throughout] Blood Pressure 115/51 114/54 114/51 O2 Sat by Pulse 86 87 87 Oximetry 06/12/21 06/12/2122 04:00 04:15 04:30 Temperature 100.8 F H Pulse Rate 125 H 125 H 125 H Pulse Rate [ Bilateral Throughout] Pulse Rate [ 125 H From Monitor] Respiratory 25 H 26 H 26 H Rate Respiratory Rate [Bilateral Throughout] Blood Pressure 104/52 107/48 106/44 O2 Sat by Pulse 89 89 89 Oximetry 06/12/21 06/12/21 06/12/21 04:45 05:00 05:15 Temperature Pulse Rate 124 H 126 H 125 H Pulse Rate [ Bilateral Throughout] Pulse Rate [ From Monitor] Respiratory 25 H 26 H 26 H Rate Respiratory Rate [Bilateral Throughout] Blood Pressure 104/47 110/49 101/48 O2 Sat by Pulse 88 89 88 Oximetry 06/12/21 06/12/21 06/12/21 05:30 05:45 06:00 Temperature Pulse Rate 122 H 125 H 117 H Pulse Rate [ Bilateral Throughout] Pulse Rate [ From Monitor] Respiratory 25 H 26 H 25 H Rate Respiratory Rate [Bilateral Throughout] Blood Pressure 110/44 100/43 99/42 O2 Sat by Pulse 89 89 90 Oximetry 06/12/21 06/12/21 06/12/21 06:15 06:30 06:45 Temperature Pulse Rate 115 H 115 H 114 H Pulse Rate [ Bilateral Throughout] Pulse Rate [ From Monitor] Respiratory 25 H 26 H 25 H Rate Respiratory Rate [Bilateral Throughout] Blood Pressure 91/42 98/43 100/44 O2 Sat by Pulse 91 91 92 Oximetry 06/12/21 06/12/21 06/12/21 07:00 07:15 07:30 Temperature Pulse Rate 114 H 111 H 115 H Pulse Rate [ Bilateral Throughout] Pulse Rate [ From Monitor] Respiratory 26 H 26 H 26 H Rate Respiratory Rate [Bilateral Throughout] Blood Pressure 106/38 121/31 121/31 O2 Sat by Pulse 92 93 91 Oximetry 06/12/21 06/12/21 06/12/21 07:45 08:00 08:15 Temperature 98.7 F Pulse Rate 111 H 111 H 110 H Pulse Rate [ 108 H Bilateral Throughout] Pulse Rate [ 125 H From Monitor] Respiratory 26 H 26 H 26 H Rate Respiratory 27 H Rate [Bilateral Throughout] Blood Pressure 95/47 108/39 114/48 O2 Sat by Pulse 93 92 93 Oximetry 06/12/21 06/12/21 06/12/21 08:30 08:35 08:46 Temperature Pulse Rate 109 H 108 H 108 H Pulse Rate [ Bilateral Throughout] Pulse Rate [ From Monitor] Respiratory 26 H 26 H Rate Respiratory Rate [Bilateral Throughout] Blood Pressure 109/39 109/39 101/30 O2 Sat by Pulse 92 93 92 Oximetry 06/12/21 06/12/21 06/12/21 09:00 09:16 09:30 Temperature Pulse Rate 114 H 113 H 111 H Pulse Rate [ Bilateral Throughout] Pulse Rate [ From Monitor] Respiratory 27 H 26 H 29 H Rate Respiratory Rate [Bilateral Throughout] Blood Pressure 101/30 74/32 106/33 O2 Sat by Pulse 92 84 85 Oximetry 06/12/21 06/12/21 06/12/21 09:45 10:00 10:16 Temperature Pulse Rate 107 H 106 H 106 H Pulse Rate [ Bilateral Throughout] Pulse Rate [ From Monitor] Respiratory 28 H 26 H 28 H Rate Respiratory Rate [Bilateral Throughout] Blood Pressure 79/43 72/42 72/42 O2 Sat by Pulse 88 88 86 Oximetry 06/12/21 06/12/21 06/12/21 10:30 10:45 11:00 Temperature Pulse Rate 105 H 105 H 103 H Pulse Rate [ Bilateral Throughout] Pulse Rate [ From Monitor] Respiratory 27 H 27 H 28 H Rate Respiratory Rate [Bilateral Throughout] Blood Pressure 86/42 93/45 90/33 O2 Sat by Pulse 86 87 88 Oximetry 06/12/21 06/12/21 06/12/21 11:16 11:30 11:45 Temperature Pulse Rate 103 H 102 H 102 H Pulse Rate [ Bilateral Throughout] Pulse Rate [ From Monitor] Respiratory 27 H 27 H 28 H Rate Respiratory Rate [Bilateral Throughout] Blood Pressure 65/37 68/46 98/50 O2 Sat by Pulse 88 87 88 Oximetry 06/12/21 06/12/21 06/12/21 12:00 12:16 12:30 Temperature 97.9 F Pulse Rate 104 H 100 H 101 H Pulse Rate [ Bilateral Throughout] Pulse Rate [ 125 H From Monitor] Respiratory 25 H 25 H 25 H Rate Respiratory Rate [Bilateral Throughout] Blood Pressure 95/46 85/41 98/41 O2 Sat by Pulse 87 87 90 Oximetry 06/12/21 06/12/21 06/12/21 12:46 13:00 13:16 Temperature Pulse Rate 100 H 99 H 100 H Pulse Rate [ Bilateral Throughout] Pulse Rate [ From Monitor] Respiratory 25 H 26 H 25 H Rate Respiratory Rate [Bilateral Throughout] Blood Pressure 50/28 105/36 53/18 O2 Sat by Pulse 89 90 87 Oximetry 06/12/21 06/12/21 06/12/21 13:30 13:46 14:00 Temperature Pulse Rate 101 H 101 H 100 H Pulse Rate [ Bilateral Throughout] Pulse Rate [ From Monitor] Respiratory 25 H 25 H 25 H Rate Respiratory Rate [Bilateral Throughout] Blood Pressure 53/18 53/18 101/42 O2 Sat by Pulse 87 88 88 Oximetry Constitutional: appears uncomfortable, other (mildly increased respiratory effort at rest on MVS, temporal muscle wasting) Eyes: non-icteric ENT: oropharynx dry, other (ETT 24 cm JOSH) Neck: supple, no lymphadenopathy, no JVD Effort: mildly labored Ascultation: Bilateral: diminished breath sounds, rales (inspiratory, bases) Percussion: Bilateral: not dull Cardiovascular: regular rate and rhythm, other (S1,S2, tachycardia) Gastrointestinal: normoactive bowel sounds, hypoactive bowel sounds, soft, non- tender, other (distended) Integumentary: other (SQ emphysema to upper chest) Extremities: no cyanosis, pulses normal, edema (1+ edema), other (Rivas catheter) Neurologic: normal mental status, non-focal exam (grossly), pupils equal and round, other (sedated) Psychiatric: other (unable to assess re: AMS) CBC and BMP: 06/12/21 06:03 06/12/21 10:20 ABG, PT/INR, D-dimer: ABG ABG pH 7.366 (7.320-7.450) 06/11/21 06:20 POC ABG pCO2 61.8 mmHg (32.0-48.0) H 06/11/21 06:20 ABG pCO2 55.5 mm Hg 06/07/21 10:50 POC ABG pO2 55.2 mmHg (83-108) L 06/11/21 06:20 ABG pO2 66.6 mm Hg (80.0-90.0) L 06/07/21 10:50 POC ABG HCO3 34.6 06/11/21 06:20 ABG O2 Saturation 88.2 (0-100) 06/11/21 06:20 PT/INR, D-dimer PT 15.9 Sec. (12.2-14.9) H 06/05/21 06:00 INR 1.15 (0.87-1.13) H 06/05/21 06:00 D-Dimer 1938.43 ng/mlDDU (0-234) H 06/07/21 04:36 Abnormal lab findings: Abnormal Labs 05/11/21 05/11/21 05/11/21 05:43 05:43 05:43 WBC RBC Hgb Hct MCV 98 H MCH MCHC RDW 17.7 H Plt Count Lymph % (Auto) 10.8 L Eos % (Auto) Lymph # (Auto) 0.6 L Eos # (Auto) Seg Neutrophils % 84.1 H Seg Neuts % (Manual) Lymphocytes % (Manual) Seg Neutrophils # Man Lymphocytes # (Manual) PT 16.0 H INR 1.16 H APTT D-Dimer ABG pH POC ABG pCO2 POC ABG pO2 ABG pO2 ABG HCO3 ABG O2 Saturation ABG Base Excess ABG Hemoglobin ABG Oxyhemoglobin ABG Sodium ABG Potassium ABG Chloride ABG Glucose Oxyhemoglobin Carboxyhemoglobin Sodium Potassium Chloride Carbon Dioxide 21 L BUN 4 L Creatinine 0.4 L Glucose POC Glucose Lactic Acid Calcium 8.3 L Phosphorus Magnesium Ferritin Total Bilirubin 2.10 H Direct Bilirubin 1.4 H AST 335 H ALT 57 H Alkaline Phosphatase 339 H Lactate Dehydrogenase C-Reactive Protein NT-Pro-B Natriuret Pep Total Protein Albumin 2.4 L Lipase 3 L Arterial Blood Glucose Arterial Blood Ionized Calcium Ur Specific [place] Urine WBC (Auto) Vancomycin Trough Coronavirus (PCR) 05/11/21 05/11/21 05/12/21 11:18 12:28 04:08 WBC RBC Hgb Hct MCV MCH MCHC RDW Plt Count Lymph % (Auto) Eos % (Auto) Lymph # (Auto) Eos # (Auto) Seg Neutrophils % Seg Neuts % (Manual) Lymphocytes % (Manual) Seg Neutrophils # Man Lymphocytes # (Manual) PT INR APTT D-Dimer ABG pH POC ABG pCO2 POC ABG pO2 ABG pO2 ABG HCO3 ABG O2 Saturation ABG Base Excess ABG Hemoglobin ABG Oxyhemoglobin ABG Sodium ABG Potassium ABG Chloride ABG Glucose Oxyhemoglobin Carboxyhemoglobin Sodium Potassium Chloride Carbon Dioxide BUN Creatinine Glucose POC Glucose Lactic Acid 4.20 H* 4.50 H* Calcium Phosphorus Magnesium Ferritin Total Bilirubin Direct Bilirubin AST ALT Alkaline Phosphatase Lactate Dehydrogenase C-Reactive Protein NT-Pro-B Natriuret Pep Total Protein Albumin Lipase Arterial Blood Glucose Arterial Blood Ionized Calcium Ur Specific [place] 1.035 H Urine WBC (Auto) Vancomycin Trough Coronavirus (PCR) 05/12/21 05/12/21 05/12/21 04:08 04:08 09:47 WBC 22.8 H RBC 3.39 L Hgb Hct MCV 98 H MCH MCHC RDW 17.7 H Plt Count Lymph % (Auto) Eos % (Auto) Lymph # (Auto) Eos # (Auto) Seg Neutrophils % Seg Neuts % (Manual) 85.5 H Lymphocytes % (Manual) 2.0 L Seg Neutrophils # Man 19.5 H Lymphocytes # (Manual) 0.5 L PT INR APTT D-Dimer ABG pH POC ABG pCO2 POC ABG pO2 ABG pO2 ABG HCO3 ABG O2 Saturation ABG Base Excess ABG Hemoglobin ABG Oxyhemoglobin ABG Sodium ABG Potassium ABG Chloride ABG Glucose Oxyhemoglobin Carboxyhemoglobin Sodium Potassium 3.3 L Chloride 108.9 H Carbon Dioxide 17 L BUN 4 L Creatinine 0.5 L Glucose 106 H POC Glucose Lactic Acid 2.60 H* Calcium 6.4 L D Phosphorus Magnesium Ferritin Total Bilirubin 2.10 H Direct Bilirubin AST 156 H ALT 61 H Alkaline Phosphatase 317 H Lactate Dehydrogenase C-Reactive Protein NT-Pro-B Natriuret Pep Total Protein 5.4 L D Albumin 1.8 L Lipase Arterial Blood Glucose Arterial Blood Ionized Calcium Ur Specific [place] Urine WBC (Auto) Vancomycin Trough Coronavirus (PCR) 05/12/21 05/12/21 05/12/21 11:47 12:30 12:36 WBC RBC Hgb Hct MCV MCH MCHC RDW Plt Count Lymph % (Auto) Eos % (Auto) Lymph # (Auto) Eos # (Auto) Seg Neutrophils % Seg Neuts % (Manual) Lymphocytes % (Manual) Seg Neutrophils # Man Lymphocytes # (Manual) PT INR APTT D-Dimer ABG pH POC ABG pCO2 POC ABG pO2 ABG pO2 ABG HCO3 ABG O2 Saturation ABG Base Excess ABG Hemoglobin ABG Oxyhemoglobin ABG Sodium ABG Potassium ABG Chloride ABG Glucose Oxyhemoglobin Carboxyhemoglobin Sodium Potassium Chloride Carbon Dioxide BUN Creatinine Glucose POC Glucose 59 L 120 H Lactic Acid 2.50 H* Calcium Phosphorus Magnesium Ferritin Total Bilirubin Direct Bilirubin AST ALT Alkaline Phosphatase Lactate Dehydrogenase C-Reactive Protein NT-Pro-B Natriuret Pep Total Protein Albumin Lipase Arterial Blood Glucose Arterial Blood Ionized Calcium Ur Specific [place] Urine WBC (Auto) Vancomycin Trough Coronavirus (PCR) 05/12/21 05/12/21 05/13/21 23:45 Unknown 04:00 WBC 19.8 H RBC 3.52 L Hgb Hct MCV 98 H MCH MCHC RDW 18.5 H Plt Count Lymph % (Auto) Eos % (Auto) Lymph # (Auto) Eos # (Auto) Seg Neutrophils % Seg Neuts % (Manual) Lymphocytes % (Manual) Seg Neutrophils # Man Lymphocytes # (Manual) PT INR APTT D-Dimer ABG pH POC ABG pCO2 POC ABG pO2 ABG pO2 ABG HCO3 ABG O2 Saturation ABG Base Excess ABG Hemoglobin ABG Oxyhemoglobin ABG Sodium ABG Potassium ABG Chloride ABG Glucose Oxyhemoglobin Carboxyhemoglobin Sodium Potassium Chloride Carbon Dioxide BUN Creatinine Glucose POC Glucose 119 H Lactic Acid 3.30 H* Calcium Phosphorus Magnesium Ferritin Total Bilirubin Direct Bilirubin AST ALT Alkaline Phosphatase Lactate Dehydrogenase C-Reactive Protein NT-Pro-B Natriuret Pep Total Protein Albumin Lipase Arterial Blood Glucose Arterial Blood Ionized Calcium Ur Specific [place] Urine WBC (Auto) Vancomycin Trough Coronavirus (PCR) 05/13/21 05/13/21 05/13/21 04:00 05:42 12:19 WBC RBC Hgb Hct MCV MCH MCHC RDW Plt Count Lymph % (Auto) Eos % (Auto) Lymph # (Auto) Eos # (Auto) Seg Neutrophils % Seg Neuts % (Manual) Lymphocytes % (Manual) Seg Neutrophils # Man Lymphocytes # (Manual) PT INR APTT D-Dimer ABG pH POC ABG pCO2 POC ABG pO2 ABG pO2 ABG HCO3 ABG O2 Saturation ABG Base Excess ABG Hemoglobin ABG Oxyhemoglobin ABG Sodium ABG Potassium ABG Chloride ABG Glucose Oxyhemoglobin Carboxyhemoglobin Sodium Potassium 3.4 L Chloride 107.1 H Carbon Dioxide 19 L BUN 4 L Creatinine 0.4 L Glucose 157 H POC Glucose 143 H 110 H Lactic Acid Calcium 7.4 L D Phosphorus 1.60 L Magnesium 1.50 L Ferritin Total Bilirubin 1.40 H Direct Bilirubin AST 95 H ALT Alkaline Phosphatase 328 H Lactate Dehydrogenase C-Reactive Protein NT-Pro-B Natriuret Pep Total Protein 5.5 L Albumin 1.6 L Lipase Arterial Blood Glucose Arterial Blood Ionized Calcium Ur Specific [place] Urine WBC (Auto) Vancomycin Trough Coronavirus (PCR) 05/14/21 05/14/21 05/14/21 06:15 06:15 10:25 WBC 11.7 H RBC 3.41 L Hgb Hct MCV 98 H MCH MCHC RDW 18.6 H Plt Count Lymph % (Auto) Eos % (Auto) Lymph # (Auto) Eos # (Auto) Seg Neutrophils % Seg Neuts % (Manual) Lymphocytes % (Manual) Seg Neutrophils # Man Lymphocytes # (Manual) PT INR APTT D-Dimer ABG pH POC ABG pCO2 POC ABG pO2 ABG pO2 76.0 L ABG HCO3 27.2 H ABG O2 Saturation ABG Base Excess ABG Hemoglobin 11.5 L ABG Oxyhemoglobin ABG Sodium ABG Potassium ABG Chloride ABG Glucose Oxyhemoglobin 94.4 L Carboxyhemoglobin Sodium Potassium 3.2 L Chloride Carbon Dioxide BUN 6 L Creatinine 0.5 L Glucose 103 H POC Glucose Lactic Acid Calcium 7.3 L Phosphorus 1.70 L Magnesium Ferritin Total Bilirubin Direct Bilirubin AST 66 H ALT Alkaline Phosphatase 295 H Lactate Dehydrogenase C-Reactive Protein NT-Pro-B Natriuret Pep Total Protein 5.3 L Albumin 1.8 L Lipase Arterial Blood Glucose Arterial Blood Ionized Calcium Ur Specific [place] Urine WBC (Auto) Vancomycin Trough Coronavirus (PCR) 05/14/21 05/14/21 05/14/21 15:20 15:20 17:26 WBC RBC Hgb Hct MCV MCH MCHC RDW Plt Count Lymph % (Auto) Eos % (Auto) Lymph # (Auto) Eos # (Auto) Seg Neutrophils % Seg Neuts % (Manual) Lymphocytes % (Manual) Seg Neutrophils # Man Lymphocytes # (Manual) PT INR APTT D-Dimer ABG pH POC ABG pCO2 POC ABG pO2 ABG pO2 ABG HCO3 ABG O2 Saturation ABG Base Excess ABG Hemoglobin ABG Oxyhemoglobin ABG Sodium ABG Potassium ABG Chloride ABG Glucose Oxyhemoglobin Carboxyhemoglobin Sodium 146 H D Potassium Chloride 108.4 H Carbon Dioxide BUN 5 L Creatinine 0.5 L Glucose POC Glucose 63 L Lactic Acid Calcium 7.6 L Phosphorus Magnesium Ferritin Total Bilirubin Direct Bilirubin AST ALT Alkaline Phosphatase Lactate Dehydrogenase C-Reactive Protein NT-Pro-B Natriuret Pep Total Protein Albumin Lipase Arterial Blood Glucose Arterial Blood Ionized Calcium Ur Specific [place] Urine WBC (Auto) Vancomycin Trough 25.3 H Coronavirus (PCR) 05/14/21 05/15/21 05/15/21 21:27 00:03 00:29 WBC RBC Hgb Hct MCV MCH MCHC RDW Plt Count Lymph % (Auto) Eos % (Auto) Lymph # (Auto) Eos # (Auto) Seg Neutrophils % Seg Neuts % (Manual) Lymphocytes % (Manual) Seg Neutrophils # Man Lymphocytes # (Manual) PT INR APTT D-Dimer ABG pH POC ABG pCO2 POC ABG pO2 ABG pO2 ABG HCO3 ABG O2 Saturation ABG Base Excess ABG Hemoglobin ABG Oxyhemoglobin ABG Sodium ABG Potassium ABG Chloride ABG Glucose Oxyhemoglobin Carboxyhemoglobin Sodium Potassium Chloride Carbon Dioxide BUN Creatinine Glucose POC Glucose 52 L 54 L 129 H Lactic Acid Calcium Phosphorus Magnesium Ferritin Total Bilirubin Direct Bilirubin AST ALT Alkaline Phosphatase Lactate Dehydrogenase C-Reactive Protein NT-Pro-B Natriuret Pep Total Protein Albumin Lipase Arterial Blood Glucose Arterial Blood Ionized Calcium Ur Specific [place] Urine WBC (Auto) Vancomycin Trough Coronavirus (PCR) 05/15/21 05/15/21 05/15/21 04:45 04:45 11:58 WBC RBC 3.24 L Hgb Hct MCV 98 H MCH MCHC RDW 18.5 H Plt Count 122 L Lymph % (Auto) 7.4 L Eos % (Auto) Lymph # (Auto) 0.6 L Eos # (Auto) Seg Neutrophils % 81.2 H Seg Neuts % (Manual) Lymphocytes % (Manual) Seg Neutrophils # Man Lymphocytes # (Manual) PT INR APTT D-Dimer ABG pH POC ABG pCO2 POC ABG pO2 ABG pO2 ABG HCO3 ABG O2 Saturation ABG Base Excess ABG Hemoglobin ABG Oxyhemoglobin ABG Sodium ABG Potassium ABG Chloride ABG Glucose Oxyhemoglobin Carboxyhemoglobin Sodium 146 H Potassium 3.1 L Chloride 108.8 H Carbon Dioxide BUN 6 L Creatinine Glucose 121 H POC Glucose 68 L Lactic Acid Calcium 7.5 L Phosphorus 2.30 L D Magnesium Ferritin Total Bilirubin 1.90 H Direct Bilirubin AST 55 H ALT Alkaline Phosphatase 231 H Lactate Dehydrogenase C-Reactive Protein NT-Pro-B Natriuret Pep Total Protein 5.4 L Albumin 1.5 L Lipase Arterial Blood Glucose Arterial Blood Ionized Calcium Ur Specific [place] Urine WBC (Auto) Vancomycin Trough Coronavirus (PCR) 05/15/21 05/16/21 05/16/21 13:50 00:06 00:43 WBC RBC Hgb Hct MCV MCH MCHC RDW Plt Count Lymph % (Auto) Eos % (Auto) Lymph # (Auto) Eos # (Auto) Seg Neutrophils % Seg Neuts % (Manual) Lymphocytes % (Manual) Seg Neutrophils # Man Lymphocytes # (Manual) PT INR APTT D-Dimer ABG pH POC ABG pCO2 POC ABG pO2 ABG pO2 ABG HCO3 ABG O2 Saturation ABG Base Excess ABG Hemoglobin ABG Oxyhemoglobin ABG Sodium ABG Potassium ABG Chloride ABG Glucose Oxyhemoglobin Carboxyhemoglobin Sodium Potassium Chloride Carbon Dioxide BUN Creatinine Glucose POC Glucose 147 H 54 L 116 H Lactic Acid Calcium Phosphorus Magnesium Ferritin Total Bilirubin Direct Bilirubin AST ALT Alkaline Phosphatase Lactate Dehydrogenase C-Reactive Protein NT-Pro-B Natriuret Pep Total Protein Albumin Lipase Arterial Blood Glucose Arterial Blood Ionized Calcium Ur Specific [place] Urine WBC (Auto) Vancomycin Trough Coronavirus (PCR) 05/16/21 05/16/21 05/16/21 04:31 04:31 05:58 WBC RBC 3.12 L Hgb 9.8 L Hct MCV 98 H MCH MCHC RDW 18.2 H Plt Count 115 L Lymph % (Auto) Eos % (Auto) Lymph # (Auto) Eos # (Auto) Seg Neutrophils % Seg Neuts % (Manual) Lymphocytes % (Manual) Seg Neutrophils # Man Lymphocytes # (Manual) PT INR APTT D-Dimer ABG pH POC ABG pCO2 POC ABG pO2 ABG pO2 ABG HCO3 ABG O2 Saturation ABG Base Excess ABG Hemoglobin ABG Oxyhemoglobin ABG Sodium ABG Potassium ABG Chloride ABG Glucose Oxyhemoglobin Carboxyhemoglobin Sodium 146 H Potassium 3.2 L Chloride Carbon Dioxide BUN 5 L Creatinine 0.5 L Glucose POC Glucose 61 L Lactic Acid Calcium 7.2 L Phosphorus 2.30 L Magnesium Ferritin Total Bilirubin Direct Bilirubin AST ALT Alkaline Phosphatase Lactate Dehydrogenase C-Reactive Protein NT-Pro-B Natriuret Pep Total Protein Albumin Lipase Arterial Blood Glucose Arterial Blood Ionized Calcium Ur Specific [place] Urine WBC (Auto) Vancomycin Trough Coronavirus (PCR) 05/16/21 05/16/21 05/17/21 08:11 23:42 04:15 WBC RBC Hgb Hct MCV MCH MCHC RDW Plt Count Lymph % (Auto) Eos % (Auto) Lymph # (Auto) Eos # (Auto) Seg Neutrophils % Seg Neuts % (Manual) Lymphocytes % (Manual) Seg Neutrophils # Man Lymphocytes # (Manual) PT INR APTT D-Dimer ABG pH POC ABG pCO2 POC ABG pO2 ABG pO2 ABG HCO3 ABG O2 Saturation ABG Base Excess ABG Hemoglobin ABG Oxyhemoglobin ABG Sodium ABG Potassium ABG Chloride ABG Glucose Oxyhemoglobin Carboxyhemoglobin Sodium Potassium Chloride Carbon Dioxide BUN Creatinine Glucose POC Glucose 58 L 200 H Lactic Acid Calcium Phosphorus Magnesium Ferritin Total Bilirubin 1.70 H Direct Bilirubin 1.5 H AST 43 H ALT Alkaline Phosphatase 196 H Lactate Dehydrogenase C-Reactive Protein NT-Pro-B Natriuret Pep Total Protein 5.4 L Albumin 1.6 L Lipase Arterial Blood Glucose Arterial Blood Ionized Calcium Ur Specific [place] Urine WBC (Auto) Vancomycin Trough Coronavirus (PCR) 05/17/21 05/17/21 05/17/21 04:15 04:15 05:07 WBC RBC 3.26 L Hgb Hct MCV 98 H MCH MCHC RDW 18.9 H Plt Count 114 L Lymph % (Auto) Eos % (Auto) Lymph # (Auto) Eos # (Auto) Seg Neutrophils % Seg Neuts % (Manual) Lymphocytes % (Manual) Seg Neutrophils # Man Lymphocytes # (Manual) PT INR APTT D-Dimer ABG pH POC ABG pCO2 POC ABG pO2 ABG pO2 ABG HCO3 ABG O2 Saturation ABG Base Excess ABG Hemoglobin ABG Oxyhemoglobin ABG Sodium ABG Potassium ABG Chloride ABG Glucose Oxyhemoglobin Carboxyhemoglobin Sodium Potassium Chloride Carbon Dioxide 35 H BUN 5 L Creatinine Glucose 274 H POC Glucose 249 H Lactic Acid Calcium 7.7 L Phosphorus 1.50 L D Magnesium Ferritin Total Bilirubin Direct Bilirubin AST ALT Alkaline Phosphatase Lactate Dehydrogenase C-Reactive Protein NT-Pro-B Natriuret Pep Total Protein Albumin Lipase Arterial Blood Glucose Arterial Blood Ionized Calcium Ur Specific [place] Urine WBC (Auto) Vancomycin Trough Coronavirus (PCR) 05/17/21 05/17/21 05/17/21 11:56 16:29 23:37 WBC RBC Hgb Hct MCV MCH MCHC RDW Plt Count Lymph % (Auto) Eos % (Auto) Lymph # (Auto) Eos # (Auto) Seg Neutrophils % Seg Neuts % (Manual) Lymphocytes % (Manual) Seg Neutrophils # Man Lymphocytes # (Manual) PT INR APTT D-Dimer ABG pH POC ABG pCO2 POC ABG pO2 ABG pO2 ABG HCO3 ABG O2 Saturation ABG Base Excess ABG Hemoglobin ABG Oxyhemoglobin ABG Sodium ABG Potassium ABG Chloride ABG Glucose Oxyhemoglobin Carboxyhemoglobin Sodium Potassium Chloride Carbon Dioxide BUN Creatinine Glucose POC Glucose 176 H 219 H 150 H Lactic Acid Calcium Phosphorus Magnesium Ferritin Total Bilirubin Direct Bilirubin AST ALT Alkaline Phosphatase Lactate Dehydrogenase C-Reactive Protein NT-Pro-B Natriuret Pep Total Protein Albumin Lipase Arterial Blood Glucose Arterial Blood Ionized Calcium Ur Specific [place] Urine WBC (Auto) Vancomycin Trough Coronavirus (PCR) 05/18/21 05/18/21 05/18/21 04:00 05:22 09:00 WBC RBC 3.34 L Hgb Hct MCV MCH MCHC RDW 18.8 H Plt Count Lymph % (Auto) Eos % (Auto) Lymph # (Auto) Eos # (Auto) Seg Neutrophils % Seg Neuts % (Manual) Lymphocytes % (Manual) Seg Neutrophils # Man Lymphocytes # (Manual) PT INR APTT D-Dimer ABG pH POC ABG pCO2 POC ABG pO2 ABG pO2 ABG HCO3 ABG O2 Saturation ABG Base Excess ABG Hemoglobin ABG Oxyhemoglobin ABG Sodium ABG Potassium ABG Chloride ABG Glucose Oxyhemoglobin Carboxyhemoglobin Sodium Potassium 5.4 H D Chloride 97.5 L Carbon Dioxide 33 H BUN Creatinine 0.4 L Glucose 461 H POC Glucose 181 H Lactic Acid Calcium 7.2 L Phosphorus 5.00 H D Magnesium Ferritin Total Bilirubin Direct Bilirubin AST ALT Alkaline Phosphatase Lactate Dehydrogenase C-Reactive Protein NT-Pro-B Natriuret Pep Total Protein Albumin Lipase Arterial Blood Glucose Arterial Blood Ionized Calcium Ur Specific [place] Urine WBC (Auto) Vancomycin Trough Coronavirus (PCR) 05/18/21 05/18/21 05/18/21 11:16 12:50 16:29 WBC RBC Hgb Hct MCV MCH MCHC RDW Plt Count Lymph % (Auto) Eos % (Auto) Lymph # (Auto) Eos # (Auto) Seg Neutrophils % Seg Neuts % (Manual) Lymphocytes % (Manual) Seg Neutrophils # Man Lymphocytes # (Manual) PT INR APTT D-Dimer ABG pH POC ABG pCO2 POC ABG pO2 ABG pO2 ABG HCO3 ABG O2 Saturation ABG Base Excess ABG Hemoglobin ABG Oxyhemoglobin ABG Sodium ABG Potassium ABG Chloride ABG Glucose Oxyhemoglobin Carboxyhemoglobin Sodium Potassium 3.4 L D Chloride Carbon Dioxide 36 H BUN 19 H Creatinine 0.4 L Glucose 231 H POC Glucose 168 H 196 H Lactic Acid Calcium 7.5 L Phosphorus 1.80 L D Magnesium Ferritin Total Bilirubin Direct Bilirubin AST ALT Alkaline Phosphatase Lactate Dehydrogenase C-Reactive Protein NT-Pro-B Natriuret Pep Total Protein Albumin Lipase Arterial Blood Glucose Arterial Blood Ionized Calcium Ur Specific [place] Urine WBC (Auto) Vancomycin Trough Coronavirus (PCR) 05/19/21 05/19/21 05/19/21 00:05 04:08 05:07 WBC RBC Hgb Hct MCV MCH MCHC RDW Plt Count Lymph % (Auto) Eos % (Auto) Lymph # (Auto) Eos # (Auto) Seg Neutrophils % Seg Neuts % (Manual) Lymphocytes % (Manual) Seg Neutrophils # Man Lymphocytes # (Manual) PT INR APTT D-Dimer ABG pH POC ABG pCO2 POC ABG pO2 ABG pO2 ABG HCO3 ABG O2 Saturation ABG Base Excess ABG Hemoglobin ABG Oxyhemoglobin ABG Sodium ABG Potassium ABG Chloride ABG Glucose Oxyhemoglobin Carboxyhemoglobin Sodium 146 H Potassium Chloride Carbon Dioxide 35 H BUN 25 H Creatinine 0.4 L Glucose 218 H POC Glucose 164 H 203 H Lactic Acid Calcium 7.2 L Phosphorus Magnesium Ferritin Total Bilirubin Direct Bilirubin AST ALT Alkaline Phosphatase Lactate Dehydrogenase C-Reactive Protein NT-Pro-B Natriuret Pep Total Protein Albumin Lipase Arterial Blood Glucose Arterial Blood Ionized Calcium Ur Specific [place] Urine WBC (Auto) Vancomycin Trough Coronavirus (PCR) 05/19/21 05/19/21 05/19/21 12:16 14:14 17:11 WBC RBC Hgb Hct MCV MCH MCHC RDW Plt Count Lymph % (Auto) Eos % (Auto) Lymph # (Auto) Eos # (Auto) Seg Neutrophils % Seg Neuts % (Manual) Lymphocytes % (Manual) Seg Neutrophils # Man Lymphocytes # (Manual) PT INR APTT D-Dimer ABG pH 7.482 H POC ABG pCO2 POC ABG pO2 ABG pO2 111.7 H ABG HCO3 31.4 H ABG O2 Saturation ABG Base Excess 7.2 H ABG Hemoglobin 11.1 L ABG Oxyhemoglobin ABG Sodium ABG Potassium ABG Chloride ABG Glucose Oxyhemoglobin Carboxyhemoglobin Sodium Potassium Chloride Carbon Dioxide BUN Creatinine Glucose POC Glucose 206 H 194 H Lactic Acid Calcium Phosphorus Magnesium Ferritin Total Bilirubin Direct Bilirubin AST ALT Alkaline Phosphatase Lactate Dehydrogenase C-Reactive Protein NT-Pro-B Natriuret Pep Total Protein Albumin Lipase Arterial Blood Glucose Arterial Blood Ionized Calcium Ur Specific [place] Urine WBC (Auto) Vancomycin Trough Coronavirus (PCR) 05/20/21 05/20/21 05/20/21 00:01 04:30 06:09 WBC RBC Hgb Hct MCV MCH MCHC RDW Plt Count Lymph % (Auto) Eos % (Auto) Lymph # (Auto) Eos # (Auto) Seg Neutrophils % Seg Neuts % (Manual) Lymphocytes % (Manual) Seg Neutrophils # Man Lymphocytes # (Manual) PT INR APTT D-Dimer ABG pH POC ABG pCO2 POC ABG pO2 ABG pO2 ABG HCO3 ABG O2 Saturation ABG Base Excess ABG Hemoglobin ABG Oxyhemoglobin ABG Sodium ABG Potassium ABG Chloride ABG Glucose Oxyhemoglobin Carboxyhemoglobin Sodium Potassium 3.5 L Chloride Carbon Dioxide BUN 24 H Creatinine 0.3 L Glucose 254 H POC Glucose 209 H 210 H Lactic Acid Calcium 7.5 L Phosphorus 1.90 L D Magnesium Ferritin Total Bilirubin 1.60 H Direct Bilirubin AST 201 H ALT 170 H Alkaline Phosphatase 169 H Lactate Dehydrogenase C-Reactive Protein NT-Pro-B Natriuret Pep Total Protein 5.3 L Albumin 1.9 L Lipase Arterial Blood Glucose Arterial Blood Ionized Calcium Ur Specific [place] Urine WBC (Auto) Vancomycin Trough Coronavirus (PCR) 05/20/21 05/20/21 05/20/21 11:41 16:47 22:21 WBC RBC Hgb Hct MCV MCH MCHC RDW Plt Count Lymph % (Auto) Eos % (Auto) Lymph # (Auto) Eos # (Auto) Seg Neutrophils % Seg Neuts % (Manual) Lymphocytes % (Manual) Seg Neutrophils # Man Lymphocytes # (Manual) PT INR APTT D-Dimer ABG pH POC ABG pCO2 POC ABG pO2 ABG pO2 ABG HCO3 ABG O2 Saturation ABG Base Excess ABG Hemoglobin ABG Oxyhemoglobin ABG Sodium ABG Potassium ABG Chloride ABG Glucose Oxyhemoglobin Carboxyhemoglobin Sodium Potassium Chloride Carbon Dioxide BUN Creatinine Glucose POC Glucose 158 H 232 H 211 H Lactic Acid Calcium Phosphorus Magnesium Ferritin Total Bilirubin Direct Bilirubin AST ALT Alkaline Phosphatase Lactate Dehydrogenase C-Reactive Protein NT-Pro-B Natriuret Pep Total Protein Albumin Lipase Arterial Blood Glucose Arterial Blood Ionized Calcium Ur Specific [place] Urine WBC (Auto) Vancomycin Trough Coronavirus (PCR) 05/21/21 05/21/21 05/21/21 00:35 04:00 04:00 WBC RBC 3.28 L Hgb Hct MCV MCH MCHC RDW 18.7 H Plt Count 125 L Lymph % (Auto) Eos % (Auto) Lymph # (Auto) Eos # (Auto) Seg Neutrophils % Seg Neuts % (Manual) Lymphocytes % (Manual) Seg Neutrophils # Man Lymphocytes # (Manual) PT INR APTT D-Dimer ABG pH POC ABG pCO2 POC ABG pO2 ABG pO2 ABG HCO3 ABG O2 Saturation ABG Base Excess ABG Hemoglobin ABG Oxyhemoglobin ABG Sodium ABG Potassium ABG Chloride ABG Glucose Oxyhemoglobin Carboxyhemoglobin Sodium Potassium 5.1 H D Chloride 108.7 H Carbon Dioxide BUN 21 H Creatinine 0.2 L Glucose 242 H POC Glucose 230 H Lactic Acid Calcium 7.3 L Phosphorus Magnesium Ferritin Total Bilirubin Direct Bilirubin AST ALT Alkaline Phosphatase Lactate Dehydrogenase C-Reactive Protein NT-Pro-B Natriuret Pep Total Protein Albumin Lipase Arterial Blood Glucose Arterial Blood Ionized Calcium Ur Specific [place] Urine WBC (Auto) Vancomycin Trough Coronavirus (PCR) 05/21/21 05/21/21 05/21/21 05:08 11:47 17:43 WBC RBC Hgb Hct MCV MCH MCHC RDW Plt Count Lymph % (Auto) Eos % (Auto) Lymph # (Auto) Eos # (Auto) Seg Neutrophils % Seg Neuts % (Manual) Lymphocytes % (Manual) Seg Neutrophils # Man Lymphocytes # (Manual) PT INR APTT D-Dimer ABG pH POC ABG pCO2 POC ABG pO2 ABG pO2 ABG HCO3 ABG O2 Saturation ABG Base Excess ABG Hemoglobin ABG Oxyhemoglobin ABG Sodium ABG Potassium ABG Chloride ABG Glucose Oxyhemoglobin Carboxyhemoglobin Sodium Potassium Chloride Carbon Dioxide BUN Creatinine Glucose POC Glucose 196 H 139 H 147 H Lactic Acid Calcium Phosphorus Magnesium Ferritin Total Bilirubin Direct Bilirubin AST ALT Alkaline Phosphatase Lactate Dehydrogenase C-Reactive Protein NT-Pro-B Natriuret Pep Total Protein Albumin Lipase Arterial Blood Glucose Arterial Blood Ionized Calcium Ur Specific [place] Urine WBC (Auto) Vancomycin Trough Coronavirus (PCR) 05/21/21 05/21/21 05/22/21 17:57 23:32 04:16 WBC RBC Hgb Hct MCV MCH MCHC RDW Plt Count Lymph % (Auto) Eos % (Auto) Lymph # (Auto) Eos # (Auto) Seg Neutrophils % Seg Neuts % (Manual) Lymphocytes % (Manual) Seg Neutrophils # Man Lymphocytes # (Manual) PT INR APTT D-Dimer ABG pH POC ABG pCO2 POC ABG pO2 ABG pO2 ABG HCO3 ABG O2 Saturation ABG Base Excess ABG Hemoglobin ABG Oxyhemoglobin ABG Sodium ABG Potassium ABG Chloride ABG Glucose Oxyhemoglobin Carboxyhemoglobin Sodium Potassium 5.2 H Chloride Carbon Dioxide BUN 19 H Creatinine 0.2 L Glucose 154 H POC Glucose 218 H 185 H Lactic Acid Calcium 7.5 L Phosphorus Magnesium Ferritin Total Bilirubin 3.00 H Direct Bilirubin 2.3 H AST 437 H ALT 462 H Alkaline Phosphatase 186 H Lactate Dehydrogenase C-Reactive Protein NT-Pro-B Natriuret Pep Total Protein 5.5 L Albumin 1.9 L Lipase Arterial Blood Glucose Arterial Blood Ionized Calcium Ur Specific [place] Urine WBC (Auto) Vancomycin Trough Coronavirus (PCR) 05/22/21 05/22/21 05/22/21 04:30 04:30 04:30 WBC RBC Hgb Hct MCV MCH MCHC RDW Plt Count Lymph % (Auto) Eos % (Auto) Lymph # (Auto) Eos # (Auto) Seg Neutrophils % Seg Neuts % (Manual) Lymphocytes % (Manual) Seg Neutrophils # Man Lymphocytes # (Manual) PT 19.5 H INR 1.49 H APTT D-Dimer ABG pH POC ABG pCO2 POC ABG pO2 ABG pO2 ABG HCO3 ABG O2 Saturation ABG Base Excess ABG Hemoglobin ABG Oxyhemoglobin ABG Sodium ABG Potassium ABG Chloride ABG Glucose Oxyhemoglobin Carboxyhemoglobin Sodium 134 L Potassium Chloride Carbon Dioxide BUN 19 H Creatinine 0.2 L Glucose 208 H POC Glucose Lactic Acid Calcium 7.2 L Phosphorus 2.40 L D Magnesium Ferritin Total Bilirubin 2.20 H Direct Bilirubin AST 350 H ALT 496 H Alkaline Phosphatase 167 H Lactate Dehydrogenase C-Reactive Protein NT-Pro-B Natriuret Pep Total Protein 4.8 L Albumin 1.7 L Lipase Arterial Blood Glucose Arterial Blood Ionized Calcium Ur Specific [place] Urine WBC (Auto) Vancomycin Trough Coronavirus (PCR) 05/22/21 05/22/21 05/22/21 11:59 17:16 23:07 WBC RBC Hgb Hct MCV MCH MCHC RDW Plt Count Lymph % (Auto) Eos % (Auto) Lymph # (Auto) Eos # (Auto) Seg Neutrophils % Seg Neuts % (Manual) Lymphocytes % (Manual) Seg Neutrophils # Man Lymphocytes # (Manual) PT INR APTT D-Dimer ABG pH POC ABG pCO2 POC ABG pO2 ABG pO2 ABG HCO3 ABG O2 Saturation ABG Base Excess ABG Hemoglobin ABG Oxyhemoglobin ABG Sodium ABG Potassium ABG Chloride ABG Glucose Oxyhemoglobin Carboxyhemoglobin Sodium Potassium Chloride Carbon Dioxide BUN Creatinine Glucose POC Glucose 204 H 244 H 226 H Lactic Acid Calcium Phosphorus Magnesium Ferritin Total Bilirubin Direct Bilirubin AST ALT Alkaline Phosphatase Lactate Dehydrogenase C-Reactive Protein NT-Pro-B Natriuret Pep Total Protein Albumin Lipase Arterial Blood Glucose Arterial Blood Ionized Calcium Ur Specific [place] Urine WBC (Auto) Vancomycin Trough Coronavirus (PCR) 05/23/21 05/23/21 05/23/21 05:09 10:15 10:15 WBC RBC Hgb Hct MCV MCH MCHC RDW Plt Count Lymph % (Auto) Eos % (Auto) Lymph # (Auto) Eos # (Auto) Seg Neutrophils % Seg Neuts % (Manual) Lymphocytes % (Manual) Seg Neutrophils # Man Lymphocytes # (Manual) PT 16.9 H INR 1.24 H APTT D-Dimer ABG pH POC ABG pCO2 POC ABG pO2 ABG pO2 ABG HCO3 ABG O2 Saturation ABG Base Excess ABG Hemoglobin ABG Oxyhemoglobin ABG Sodium ABG Potassium ABG Chloride ABG Glucose Oxyhemoglobin Carboxyhemoglobin Sodium 131 L Potassium Chloride 97.5 L Carbon Dioxide BUN Creatinine < 0.2 L Glucose 248 H POC Glucose 175 H Lactic Acid Calcium 7.4 L Phosphorus Magnesium 1.60 L Ferritin Total Bilirubin Direct Bilirubin AST ALT Alkaline Phosphatase Lactate Dehydrogenase C-Reactive Protein NT-Pro-B Natriuret Pep Total Protein Albumin Lipase Arterial Blood Glucose Arterial Blood Ionized Calcium Ur Specific [place] Urine WBC (Auto) Vancomycin Trough Coronavirus (PCR) 05/23/21 05/23/21 05/24/21 10:15 21:46 04:16 WBC RBC Hgb Hct MCV MCH MCHC RDW Plt Count Lymph % (Auto) Eos % (Auto) Lymph # (Auto) Eos # (Auto) Seg Neutrophils % Seg Neuts % (Manual) Lymphocytes % (Manual) Seg Neutrophils # Man Lymphocytes # (Manual) PT INR APTT D-Dimer ABG pH POC ABG pCO2 POC ABG pO2 ABG pO2 ABG HCO3 ABG O2 Saturation ABG Base Excess ABG Hemoglobin ABG Oxyhemoglobin ABG Sodium ABG Potassium ABG Chloride ABG Glucose Oxyhemoglobin Carboxyhemoglobin Sodium 130 L Potassium 3.5 L Chloride 97.1 L Carbon Dioxide BUN Creatinine 0.2 L Glucose 235 H POC Glucose 190 H Lactic Acid Calcium 6.8 L Phosphorus Magnesium Ferritin Total Bilirubin 2.30 H Direct Bilirubin 1.6 H AST 161 H ALT 396 H Alkaline Phosphatase 186 H Lactate Dehydrogenase C-Reactive Protein NT-Pro-B Natriuret Pep Total Protein 4.7 L Albumin 2.0 L Lipase Arterial Blood Glucose Arterial Blood Ionized Calcium Ur Specific [place] Urine WBC (Auto) Vancomycin Trough Coronavirus (PCR) 05/24/21 05/25/21 05/25/21 05:32 04:25 04:25 WBC 11.7 H RBC 3.28 L Hgb Hct MCV MCH MCHC RDW 19.9 H Plt Count Lymph % (Auto) Eos % (Auto) Lymph # (Auto) Eos # (Auto) Seg Neutrophils % Seg Neuts % (Manual) Lymphocytes % (Manual) Seg Neutrophils # Man Lymphocytes # (Manual) PT INR APTT D-Dimer ABG pH POC ABG pCO2 POC ABG pO2 ABG pO2 ABG HCO3 ABG O2 Saturation ABG Base Excess ABG Hemoglobin ABG Oxyhemoglobin ABG Sodium ABG Potassium ABG Chloride ABG Glucose Oxyhemoglobin Carboxyhemoglobin Sodium 135 L Potassium 3.4 L Chloride Carbon Dioxide BUN Creatinine 0.2 L Glucose 105 H POC Glucose 208 H Lactic Acid Calcium 7.6 L Phosphorus Magnesium Ferritin Total Bilirubin Direct Bilirubin AST ALT Alkaline Phosphatase Lactate Dehydrogenase C-Reactive Protein NT-Pro-B Natriuret Pep Total Protein Albumin Lipase Arterial Blood Glucose Arterial Blood Ionized Calcium Ur Specific [place] Urine WBC (Auto) Vancomycin Trough Coronavirus (PCR) 05/26/21 05/26/21 05/26/21 11:37 16:57 20:59 WBC RBC Hgb Hct MCV MCH MCHC RDW Plt Count Lymph % (Auto) Eos % (Auto) Lymph # (Auto) Eos # (Auto) Seg Neutrophils % Seg Neuts % (Manual) Lymphocytes % (Manual) Seg Neutrophils # Man Lymphocytes # (Manual) PT INR APTT D-Dimer ABG pH POC ABG pCO2 POC ABG pO2 ABG pO2 ABG HCO3 ABG O2 Saturation ABG Base Excess ABG Hemoglobin ABG Oxyhemoglobin ABG Sodium ABG Potassium ABG Chloride ABG Glucose Oxyhemoglobin Carboxyhemoglobin Sodium Potassium Chloride Carbon Dioxide BUN Creatinine Glucose POC Glucose 136 H 214 H 137 H Lactic Acid Calcium Phosphorus Magnesium Ferritin Total Bilirubin Direct Bilirubin AST ALT Alkaline Phosphatase Lactate Dehydrogenase C-Reactive Protein NT-Pro-B Natriuret Pep Total Protein Albumin Lipase Arterial Blood Glucose Arterial Blood Ionized Calcium Ur Specific [place] Urine WBC (Auto) Vancomycin Trough Coronavirus (PCR) 05/26/21 05/27/21 05/27/21 23:52 05:40 16:49 WBC RBC Hgb Hct MCV MCH MCHC RDW Plt Count Lymph % (Auto) Eos % (Auto) Lymph # (Auto) Eos # (Auto) Seg Neutrophils % Seg Neuts % (Manual) Lymphocytes % (Manual) Seg Neutrophils # Man Lymphocytes # (Manual) PT INR APTT D-Dimer ABG pH POC ABG pCO2 POC ABG pO2 ABG pO2 ABG HCO3 ABG O2 Saturation ABG Base Excess ABG Hemoglobin ABG Oxyhemoglobin ABG Sodium ABG Potassium ABG Chloride ABG Glucose Oxyhemoglobin Carboxyhemoglobin Sodium Potassium Chloride Carbon Dioxide BUN Creatinine Glucose POC Glucose 111 H 144 H 213 H Lactic Acid Calcium Phosphorus Magnesium Ferritin Total Bilirubin Direct Bilirubin AST ALT Alkaline Phosphatase Lactate Dehydrogenase C-Reactive Protein NT-Pro-B Natriuret Pep Total Protein Albumin Lipase Arterial Blood Glucose Arterial Blood Ionized Calcium Ur Specific [place] Urine WBC (Auto) Vancomycin Trough Coronavirus (PCR) 05/27/21 05/27/21 05/28/21 21:07 23:57 11:59 WBC RBC Hgb Hct MCV MCH MCHC RDW Plt Count Lymph % (Auto) Eos % (Auto) Lymph # (Auto) Eos # (Auto) Seg Neutrophils % Seg Neuts % (Manual) Lymphocytes % (Manual) Seg Neutrophils # Man Lymphocytes # (Manual) PT INR APTT D-Dimer ABG pH POC ABG pCO2 POC ABG pO2 ABG pO2 ABG HCO3 ABG O2 Saturation ABG Base Excess ABG Hemoglobin ABG Oxyhemoglobin ABG Sodium ABG Potassium ABG Chloride ABG Glucose Oxyhemoglobin Carboxyhemoglobin Sodium Potassium Chloride Carbon Dioxide BUN Creatinine Glucose POC Glucose 135 H 157 H 130 H Lactic Acid Calcium Phosphorus Magnesium Ferritin Total Bilirubin Direct Bilirubin AST ALT Alkaline Phosphatase Lactate Dehydrogenase C-Reactive Protein NT-Pro-B Natriuret Pep Total Protein Albumin Lipase Arterial Blood Glucose Arterial Blood Ionized Calcium Ur Specific [place] Urine WBC (Auto) Vancomycin Trough Coronavirus (PCR) 05/28/21 05/29/21 05/29/21 17:05 01:03 05:07 WBC RBC Hgb Hct MCV MCH MCHC RDW Plt Count Lymph % (Auto) Eos % (Auto) Lymph # (Auto) Eos # (Auto) Seg Neutrophils % Seg Neuts % (Manual) Lymphocytes % (Manual) Seg Neutrophils # Man Lymphocytes # (Manual) PT INR APTT D-Dimer ABG pH POC ABG pCO2 POC ABG pO2 ABG pO2 ABG HCO3 ABG O2 Saturation ABG Base Excess ABG Hemoglobin ABG Oxyhemoglobin ABG Sodium ABG Potassium ABG Chloride ABG Glucose Oxyhemoglobin Carboxyhemoglobin Sodium 148 H D Potassium 3.0 L Chloride 108.0 H Carbon Dioxide BUN Creatinine 0.2 L Glucose 155 H POC Glucose 207 H 204 H Lactic Acid Calcium 7.7 L Phosphorus Magnesium Ferritin Total Bilirubin Direct Bilirubin AST ALT Alkaline Phosphatase Lactate Dehydrogenase C-Reactive Protein NT-Pro-B Natriuret Pep Total Protein Albumin Lipase Arterial Blood Glucose Arterial Blood Ionized Calcium Ur Specific [place] Urine WBC (Auto) Vancomycin Trough Coronavirus (PCR) 05/29/21 05/29/21 05/29/21 08:20 11:30 17:53 WBC RBC Hgb Hct MCV MCH MCHC RDW Plt Count Lymph % (Auto) Eos % (Auto) Lymph # (Auto) Eos # (Auto) Seg Neutrophils % Seg Neuts % (Manual) Lymphocytes % (Manual) Seg Neutrophils # Man Lymphocytes # (Manual) PT INR APTT D-Dimer ABG pH POC ABG pCO2 POC ABG pO2 ABG pO2 ABG HCO3 ABG O2 Saturation ABG Base Excess ABG Hemoglobin ABG Oxyhemoglobin ABG Sodium ABG Potassium ABG Chloride ABG Glucose Oxyhemoglobin Carboxyhemoglobin Sodium Potassium Chloride Carbon Dioxide BUN Creatinine Glucose POC Glucose 119 H 199 H Lactic Acid Calcium Phosphorus Magnesium Ferritin Total Bilirubin Direct Bilirubin AST ALT Alkaline Phosphatase Lactate Dehydrogenase C-Reactive Protein NT-Pro-B Natriuret Pep Total Protein Albumin Lipase Arterial Blood Glucose Arterial Blood Ionized Calcium Ur Specific [place] Urine WBC (Auto) Vancomycin Trough Coronavirus (PCR) Positive A 05/30/21 05/30/21 05/30/21 00:37 05:54 06:50 WBC RBC Hgb Hct MCV MCH MCHC RDW Plt Count Lymph % (Auto) Eos % (Auto) Lymph # (Auto) Eos # (Auto) Seg Neutrophils % Seg Neuts % (Manual) Lymphocytes % (Manual) Seg Neutrophils # Man Lymphocytes # (Manual) PT INR APTT D-Dimer ABG pH POC ABG pCO2 POC ABG pO2 ABG pO2 ABG HCO3 ABG O2 Saturation ABG Base Excess ABG Hemoglobin ABG Oxyhemoglobin ABG Sodium ABG Potassium ABG Chloride ABG Glucose Oxyhemoglobin Carboxyhemoglobin Sodium Potassium Chloride Carbon Dioxide BUN Creatinine Glucose POC Glucose 117 H 56 L 157 H Lactic Acid Calcium Phosphorus Magnesium Ferritin Total Bilirubin Direct Bilirubin AST ALT Alkaline Phosphatase Lactate Dehydrogenase C-Reactive Protein NT-Pro-B Natriuret Pep Total Protein Albumin Lipase Arterial Blood Glucose Arterial Blood Ionized Calcium Ur Specific [place] Urine WBC (Auto) Vancomycin Trough Coronavirus (PCR) 05/30/21 05/30/21 05/31/21 17:18 23:54 05:27 WBC RBC Hgb Hct MCV MCH MCHC RDW Plt Count Lymph % (Auto) Eos % (Auto) Lymph # (Auto) Eos # (Auto) Seg Neutrophils % Seg Neuts % (Manual) Lymphocytes % (Manual) Seg Neutrophils # Man Lymphocytes # (Manual) PT INR APTT D-Dimer ABG pH POC ABG pCO2 POC ABG pO2 ABG pO2 ABG HCO3 ABG O2 Saturation ABG Base Excess ABG Hemoglobin ABG Oxyhemoglobin ABG Sodium ABG Potassium ABG Chloride ABG Glucose Oxyhemoglobin Carboxyhemoglobin Sodium Potassium Chloride Carbon Dioxide BUN Creatinine Glucose POC Glucose 181 H 130 H 112 H Lactic Acid Calcium Phosphorus Magnesium Ferritin Total Bilirubin Direct Bilirubin AST ALT Alkaline Phosphatase Lactate Dehydrogenase C-Reactive Protein NT-Pro-B Natriuret Pep Total Protein Albumin Lipase Arterial Blood Glucose Arterial Blood Ionized Calcium Ur Specific [place] Urine WBC (Auto) Vancomycin Trough Coronavirus (PCR) 05/31/21 05/31/21 05/31/21 12:06 17:35 23:56 WBC RBC Hgb Hct MCV MCH MCHC RDW Plt Count Lymph % (Auto) Eos % (Auto) Lymph # (Auto) Eos # (Auto) Seg Neutrophils % Seg Neuts % (Manual) Lymphocytes % (Manual) Seg Neutrophils # Man Lymphocytes # (Manual) PT INR APTT D-Dimer ABG pH POC ABG pCO2 POC ABG pO2 ABG pO2 ABG HCO3 ABG O2 Saturation ABG Base Excess ABG Hemoglobin ABG Oxyhemoglobin ABG Sodium ABG Potassium ABG Chloride ABG Glucose Oxyhemoglobin Carboxyhemoglobin Sodium Potassium Chloride Carbon Dioxide BUN Creatinine Glucose POC Glucose 170 H 109 H 136 H Lactic Acid Calcium Phosphorus Magnesium Ferritin Total Bilirubin Direct Bilirubin AST ALT Alkaline Phosphatase Lactate Dehydrogenase C-Reactive Protein NT-Pro-B Natriuret Pep Total Protein Albumin Lipase Arterial Blood Glucose Arterial Blood Ionized Calcium Ur Specific [place] Urine WBC (Auto) Vancomycin Trough Coronavirus (PCR) 06/02/21 06/02/21 06/02/21 04:28 05:36 08:59 WBC RBC 3.31 L Hgb Hct MCV 100 H MCH MCHC RDW 24.7 H Plt Count Lymph % (Auto) 12.8 L Eos % (Auto) 10.2 H Lymph # (Auto) 0.6 L Eos # (Auto) 0.5 H Seg Neutrophils % 75.5 H Seg Neuts % (Manual) Lymphocytes % (Manual) Seg Neutrophils # Man Lymphocytes # (Manual) PT INR APTT D-Dimer ABG pH 7.258 L 7.251 L POC ABG pCO2 73.4 H 67.7 H POC ABG pO2 33.0 L 189.6 H ABG pO2 ABG HCO3 ABG O2 Saturation ABG Base Excess ABG Hemoglobin 11.8 L 11.8 L ABG Oxyhemoglobin 48.8 L ABG Sodium 146.7 H 146.3 H ABG Potassium 3.1 L ABG Chloride 109.0 H ABG Glucose 64 L Oxyhemoglobin Carboxyhemoglobin 1.6 H Sodium Potassium Chloride Carbon Dioxide BUN Creatinine Glucose POC Glucose Lactic Acid Calcium Phosphorus Magnesium Ferritin Total Bilirubin Direct Bilirubin AST ALT Alkaline Phosphatase Lactate Dehydrogenase C-Reactive Protein NT-Pro-B Natriuret Pep Total Protein Albumin Lipase Arterial Blood Glucose 64 L Arterial Blood Ionized Calcium Ur Specific [place] Urine WBC (Auto) Vancomycin Trough Coronavirus (PCR) 06/02/21 06/02/21 06/02/21 08:59 11:39 14:50 WBC RBC Hgb Hct MCV MCH MCHC RDW Plt Count Lymph % (Auto) Eos % (Auto) Lymph # (Auto) Eos # (Auto) Seg Neutrophils % Seg Neuts % (Manual) Lymphocytes % (Manual) Seg Neutrophils # Man Lymphocytes # (Manual) PT INR APTT D-Dimer ABG pH 7.339 L POC ABG pCO2 POC ABG pO2 ABG pO2 91.4 H ABG HCO3 26.2 H ABG O2 Saturation ABG Base Excess ABG Hemoglobin 11.3 L ABG Oxyhemoglobin ABG Sodium ABG Potassium ABG Chloride ABG Glucose Oxyhemoglobin 93.7 L Carboxyhemoglobin Sodium 148 H Potassium 2.9 L* Chloride 111.1 H Carbon Dioxide BUN Creatinine 0.3 L Glucose 29 L* POC Glucose 140 H Lactic Acid Calcium 7.7 L Phosphorus Magnesium 1.50 L Ferritin Total Bilirubin Direct Bilirubin AST ALT Alkaline Phosphatase Lactate Dehydrogenase C-Reactive Protein NT-Pro-B Natriuret Pep Total Protein Albumin Lipase Arterial Blood Glucose Arterial Blood Ionized Calcium Ur Specific [place] Urine WBC (Auto) Vancomycin Trough Coronavirus (PCR) 06/02/21 06/02/21 06/02/21 17:49 19:47 21:30 WBC RBC Hgb Hct MCV MCH MCHC RDW Plt Count Lymph % (Auto) Eos % (Auto) Lymph # (Auto) Eos # (Auto) Seg Neutrophils % Seg Neuts % (Manual) Lymphocytes % (Manual) Seg Neutrophils # Man Lymphocytes # (Manual) PT INR APTT D-Dimer ABG pH POC ABG pCO2 POC ABG pO2 ABG pO2 ABG HCO3 ABG O2 Saturation ABG Base Excess ABG Hemoglobin ABG Oxyhemoglobin ABG Sodium ABG Potassium ABG Chloride ABG Glucose Oxyhemoglobin Carboxyhemoglobin Sodium Potassium Chloride 109.6 H Carbon Dioxide 21 L D BUN Creatinine Glucose 123 H POC Glucose 67 L 117 H Lactic Acid Calcium 7.5 L Phosphorus 5.20 H D Magnesium 2.90 H Ferritin Total Bilirubin Direct Bilirubin AST ALT Alkaline Phosphatase Lactate Dehydrogenase C-Reactive Protein NT-Pro-B Natriuret Pep Total Protein Albumin Lipase Arterial Blood Glucose Arterial Blood Ionized Calcium Ur Specific [place] Urine WBC (Auto) Vancomycin Trough Coronavirus (PCR) 06/02/21 06/02/21 06/02/21 21:30 22:00 23:10 WBC RBC Hgb Hct MCV MCH MCHC RDW Plt Count Lymph % (Auto) Eos % (Auto) Lymph # (Auto) Eos # (Auto) Seg Neutrophils % Seg Neuts % (Manual) Lymphocytes % (Manual) Seg Neutrophils # Man Lymphocytes # (Manual) PT INR APTT D-Dimer ABG pH POC ABG pCO2 POC ABG pO2 ABG pO2 ABG HCO3 ABG O2 Saturation ABG Base Excess ABG Hemoglobin ABG Oxyhemoglobin ABG Sodium ABG Potassium ABG Chloride ABG Glucose Oxyhemoglobin Carboxyhemoglobin Sodium 147 H Potassium Chloride 111.7 H Carbon Dioxide BUN Creatinine Glucose 105 H POC Glucose 122 H Lactic Acid Calcium 7.5 L Phosphorus Magnesium Ferritin Total Bilirubin Direct Bilirubin AST 74 H ALT 96 H Alkaline Phosphatase 207 H Lactate Dehydrogenase C-Reactive Protein NT-Pro-B Natriuret Pep 2326 H Total Protein 5.0 L Albumin 2.0 L Lipase Arterial Blood Glucose Arterial Blood Ionized Calcium Ur Specific [place] Urine WBC (Auto) Vancomycin Trough Coronavirus (PCR) 06/03/21 06/03/21 06/03/21 04:45 04:45 04:45 WBC 13.6 H RBC 3.44 L Hgb Hct MCV 102 H MCH MCHC RDW 25.4 H Plt Count Lymph % (Auto) Eos % (Auto) Lymph # (Auto) Eos # (Auto) Seg Neutrophils % Seg Neuts % (Manual) Lymphocytes % (Manual) Seg Neutrophils # Man Lymphocytes # (Manual) PT INR APTT D-Dimer ABG pH POC ABG pCO2 POC ABG pO2 ABG pO2 ABG HCO3 ABG O2 Saturation ABG Base Excess ABG Hemoglobin ABG Oxyhemoglobin ABG Sodium ABG Potassium ABG Chloride ABG Glucose Oxyhemoglobin Carboxyhemoglobin Sodium Potassium Chloride Carbon Dioxide BUN Creatinine Glucose 151 H POC Glucose Lactic Acid Calcium 7.6 L Phosphorus 6.70 H D Magnesium Ferritin Total Bilirubin Direct Bilirubin AST 68 H ALT 103 H Alkaline Phosphatase 226 H Lactate Dehydrogenase C-Reactive Protein NT-Pro-B Natriuret Pep Total Protein 6.0 L Albumin 2.0 L Lipase Arterial Blood Glucose Arterial Blood Ionized Calcium Ur Specific [place] Urine WBC (Auto) Vancomycin Trough Coronavirus (PCR) 06/03/21 06/03/21 06/03/21 05:02 10:00 11:46 WBC RBC Hgb Hct MCV MCH MCHC RDW Plt Count Lymph % (Auto) Eos % (Auto) Lymph # (Auto) Eos # (Auto) Seg Neutrophils % Seg Neuts % (Manual) Lymphocytes % (Manual) Seg Neutrophils # Man Lymphocytes # (Manual) PT INR APTT D-Dimer ABG pH 7.312 L POC ABG pCO2 POC ABG pO2 ABG pO2 68.5 L ABG HCO3 ABG O2 Saturation 93.0 L ABG Base Excess ABG Hemoglobin 11.5 L ABG Oxyhemoglobin ABG Sodium ABG Potassium ABG Chloride ABG Glucose Oxyhemoglobin 90.1 L Carboxyhemoglobin Sodium Potassium Chloride Carbon Dioxide BUN Creatinine Glucose POC Glucose 139 H 150 H Lactic Acid Calcium Phosphorus Magnesium Ferritin Total Bilirubin Direct Bilirubin AST ALT Alkaline Phosphatase Lactate Dehydrogenase C-Reactive Protein NT-Pro-B Natriuret Pep Total Protein Albumin Lipase Arterial Blood Glucose Arterial Blood Ionized Calcium Ur Specific [place] Urine WBC (Auto) Vancomycin Trough Coronavirus (PCR) 06/03/21 06/03/21 06/04/21 17:19 23:01 04:00 WBC RBC 2.99 L Hgb 9.7 L Hct 30.0 L MCV 101 H MCH 33 H MCHC RDW 25.3 H Plt Count Lymph % (Auto) Eos % (Auto) Lymph # (Auto) Eos # (Auto) Seg Neutrophils % Seg Neuts % (Manual) Lymphocytes % (Manual) Seg Neutrophils # Man Lymphocytes # (Manual) PT INR APTT D-Dimer ABG pH POC ABG pCO2 POC ABG pO2 ABG pO2 ABG HCO3 ABG O2 Saturation ABG Base Excess ABG Hemoglobin ABG Oxyhemoglobin ABG Sodium ABG Potassium ABG Chloride ABG Glucose Oxyhemoglobin Carboxyhemoglobin Sodium Potassium Chloride Carbon Dioxide BUN Creatinine Glucose POC Glucose 135 H 164 H Lactic Acid Calcium Phosphorus Magnesium Ferritin Total Bilirubin Direct Bilirubin AST ALT Alkaline Phosphatase Lactate Dehydrogenase C-Reactive Protein NT-Pro-B Natriuret Pep Total Protein Albumin Lipase Arterial Blood Glucose Arterial Blood Ionized Calcium Ur Specific [place] Urine WBC (Auto) Vancomycin Trough Coronavirus (PCR) 06/04/21 06/04/21 06/04/21 04:40 05:02 10:00 WBC RBC Hgb Hct MCV MCH MCHC RDW Plt Count Lymph % (Auto) Eos % (Auto) Lymph # (Auto) Eos # (Auto) Seg Neutrophils % Seg Neuts % (Manual) Lymphocytes % (Manual) Seg Neutrophils # Man Lymphocytes # (Manual) PT INR APTT D-Dimer ABG pH POC ABG pCO2 52.2 H POC ABG pO2 82.9 L ABG pO2 ABG HCO3 ABG O2 Saturation ABG Base Excess ABG Hemoglobin ABG Oxyhemoglobin ABG Sodium 135.4 L ABG Potassium ABG Chloride ABG Glucose 163 H Oxyhemoglobin Carboxyhemoglobin 1.7 H Sodium Potassium Chloride Carbon Dioxide BUN 19 H Creatinine 0.5 L Glucose 150 H POC Glucose 137 H Lactic Acid Calcium 8.0 L Phosphorus Magnesium Ferritin Total Bilirubin Direct Bilirubin AST ALT 70 H Alkaline Phosphatase 204 H Lactate Dehydrogenase C-Reactive Protein NT-Pro-B Natriuret Pep Total Protein 5.7 L Albumin 1.8 L Lipase Arterial Blood Glucose 163 H Arterial Blood Ionized Calcium Ur Specific [place] Urine WBC (Auto) Vancomycin Trough Coronavirus (PCR) 06/04/21 06/04/21 06/04/21 12:09 17:43 17:49 WBC RBC Hgb Hct MCV MCH MCHC RDW Plt Count Lymph % (Auto) Eos % (Auto) Lymph # (Auto) Eos # (Auto) Seg Neutrophils % Seg Neuts % (Manual) Lymphocytes % (Manual) Seg Neutrophils # Man Lymphocytes # (Manual) PT INR APTT D-Dimer ABG pH POC ABG pCO2 POC ABG pO2 66.6 L ABG pO2 ABG HCO3 ABG O2 Saturation ABG Base Excess ABG Hemoglobin 11.2 L ABG Oxyhemoglobin 91.9 L ABG Sodium 134.9 L ABG Potassium ABG Chloride 97.0 L ABG Glucose 181 H Oxyhemoglobin Carboxyhemoglobin Sodium Potassium Chloride Carbon Dioxide BUN Creatinine Glucose POC Glucose 160 H 170 H Lactic Acid Calcium Phosphorus Magnesium Ferritin Total Bilirubin Direct Bilirubin AST ALT Alkaline Phosphatase Lactate Dehydrogenase C-Reactive Protein NT-Pro-B Natriuret Pep Total Protein Albumin Lipase Arterial Blood Glucose 181 H Arterial Blood Ionized Calcium Ur Specific [place] Urine WBC (Auto) Vancomycin Trough Coronavirus (PCR) 06/04/21 06/05/21 06/05/21 23:31 06:00 06:00 WBC RBC 3.13 L Hgb 10.0 L Hct MCV 100 H MCH MCHC RDW 24.6 H Plt Count 127 L Lymph % (Auto) Eos % (Auto) Lymph # (Auto) Eos # (Auto) Seg Neutrophils % Seg Neuts % (Manual) Lymphocytes % (Manual) Seg Neutrophils # Man Lymphocytes # (Manual) PT INR APTT D-Dimer ABG pH POC ABG pCO2 POC ABG pO2 ABG pO2 ABG HCO3 ABG O2 Saturation ABG Base Excess ABG Hemoglobin ABG Oxyhemoglobin ABG Sodium ABG Potassium ABG Chloride ABG Glucose Oxyhemoglobin Carboxyhemoglobin Sodium 136 L Potassium Chloride 94.2 L Carbon Dioxide 32 H BUN Creatinine 0.3 L Glucose 241 H POC Glucose 149 H Lactic Acid Calcium 8.3 L Phosphorus Magnesium Ferritin Total Bilirubin Direct Bilirubin AST ALT Alkaline Phosphatase 219 H Lactate Dehydrogenase 301 H C-Reactive Protein 22.40 H NT-Pro-B Natriuret Pep Total Protein 6.2 L Albumin 1.8 L Lipase Arterial Blood Glucose Arterial Blood Ionized Calcium Ur Specific [place] Urine WBC (Auto) Vancomycin Trough Coronavirus (PCR) 06/05/21 06/05/21 06/05/21 06:00 06:00 06:12 WBC RBC Hgb Hct MCV MCH MCHC RDW Plt Count Lymph % (Auto) Eos % (Auto) Lymph # (Auto) Eos # (Auto) Seg Neutrophils % Seg Neuts % (Manual) Lymphocytes % (Manual) Seg Neutrophils # Man Lymphocytes # (Manual) PT 15.9 H INR 1.15 H APTT 37.1 H D-Dimer 1282.85 H ABG pH POC ABG pCO2 POC ABG pO2 ABG pO2 ABG HCO3 ABG O2 Saturation ABG Base Excess ABG Hemoglobin ABG Oxyhemoglobin ABG Sodium ABG Potassium ABG Chloride ABG Glucose Oxyhemoglobin Carboxyhemoglobin Sodium Potassium Chloride Carbon Dioxide BUN Creatinine Glucose POC Glucose 228 H Lactic Acid Calcium Phosphorus Magnesium Ferritin 717.1 H Total Bilirubin Direct Bilirubin AST ALT Alkaline Phosphatase Lactate Dehydrogenase C-Reactive Protein NT-Pro-B Natriuret Pep Total Protein Albumin Lipase Arterial Blood Glucose Arterial Blood Ionized Calcium Ur Specific [place] Urine WBC (Auto) Vancomycin Trough Coronavirus (PCR) 06/05/21 06/05/21 06/05/21 09:17 12:20 17:07 WBC RBC Hgb Hct MCV MCH MCHC RDW Plt Count Lymph % (Auto) Eos % (Auto) Lymph # (Auto) Eos # (Auto) Seg Neutrophils % Seg Neuts % (Manual) Lymphocytes % (Manual) Seg Neutrophils # Man Lymphocytes # (Manual) PT INR APTT D-Dimer ABG pH POC ABG pCO2 54.0 H POC ABG pO2 140.6 H ABG pO2 ABG HCO3 ABG O2 Saturation ABG Base Excess ABG Hemoglobin 10.3 L ABG Oxyhemoglobin ABG Sodium 133.6 L ABG Potassium 3.3 L ABG Chloride 97.0 L ABG Glucose 179 H Oxyhemoglobin Carboxyhemoglobin Sodium Potassium Chloride Carbon Dioxide BUN Creatinine Glucose POC Glucose 220 H 197 H Lactic Acid Calcium Phosphorus Magnesium Ferritin Total Bilirubin Direct Bilirubin AST ALT Alkaline Phosphatase Lactate Dehydrogenase C-Reactive Protein NT-Pro-B Natriuret Pep Total Protein Albumin Lipase Arterial Blood Glucose 179 H Arterial Blood Ionized Calcium Ur Specific [place] Urine WBC (Auto) Vancomycin Trough Coronavirus (PCR) 06/05/21 06/06/21 06/06/21 23:29 05:26 05:26 WBC 3.5 L RBC 3.21 L Hgb Hct MCV 98 H MCH MCHC RDW 23.9 H Plt Count 110 L Lymph % (Auto) Eos % (Auto) Lymph # (Auto) Eos # (Auto) Seg Neutrophils % Seg Neuts % (Manual) Lymphocytes % (Manual) Seg Neutrophils # Man Lymphocytes # (Manual) PT INR APTT D-Dimer ABG pH POC ABG pCO2 POC ABG pO2 ABG pO2 ABG HCO3 ABG O2 Saturation ABG Base Excess ABG Hemoglobin ABG Oxyhemoglobin ABG Sodium ABG Potassium ABG Chloride ABG Glucose Oxyhemoglobin Carboxyhemoglobin Sodium Potassium 3.2 L Chloride Carbon Dioxide 34 H BUN Creatinine 0.3 L Glucose 172 H POC Glucose 180 H Lactic Acid Calcium 8.0 L Phosphorus Magnesium Ferritin Total Bilirubin Direct Bilirubin AST ALT Alkaline Phosphatase 207 H Lactate Dehydrogenase C-Reactive Protein NT-Pro-B Natriuret Pep Total Protein 5.5 L Albumin 2.0 L Lipase Arterial Blood Glucose Arterial Blood Ionized Calcium Ur Specific [place] Urine WBC (Auto) Vancomycin Trough Coronavirus (PCR) 06/06/21 06/06/21 06/06/21 05:30 09:00 11:15 WBC RBC Hgb Hct MCV MCH MCHC RDW Plt Count Lymph % (Auto) Eos % (Auto) Lymph # (Auto) Eos # (Auto) Seg Neutrophils % Seg Neuts % (Manual) Lymphocytes % (Manual) Seg Neutrophils # Man Lymphocytes # (Manual) PT INR APTT D-Dimer ABG pH POC ABG pCO2 59.5 H POC ABG pO2 72.0 L ABG pO2 ABG HCO3 ABG O2 Saturation ABG Base Excess ABG Hemoglobin 10.9 L ABG Oxyhemoglobin 91.7 L ABG Sodium 135.8 L ABG Potassium 2.8 L ABG Chloride 96.0 L ABG Glucose 172 H Oxyhemoglobin Carboxyhemoglobin Sodium Potassium Chloride Carbon Dioxide BUN Creatinine Glucose POC Glucose 159 H 172 H Lactic Acid Calcium Phosphorus Magnesium Ferritin Total Bilirubin Direct Bilirubin AST ALT Alkaline Phosphatase Lactate Dehydrogenase C-Reactive Protein NT-Pro-B Natriuret Pep Total Protein Albumin Lipase Arterial Blood Glucose 172 H Arterial Blood Ionized Calcium 4.5 L Ur Specific [place] Urine WBC (Auto) Vancomycin Trough Coronavirus (PCR) 01/12/22 01/12/22 01/12/22 16:07 21:00 23:46 WBC RBC Hgb Hct MCV MCH MCHC RDW Plt Count Lymph % (Auto) Eos % (Auto) Lymph # (Auto) Eos # (Auto) Seg Neutrophils % Seg Neuts % (Manual) Lymphocytes % (Manual) Seg Neutrophils # Man Lymphocytes # (Manual) PT INR APTT D-Dimer ABG pH POC ABG pCO2 59.5 H POC ABG pO2 52.1 L ABG pO2 ABG HCO3 ABG O2 Saturation ABG Base Excess ABG Hemoglobin 11.9 L ABG Oxyhemoglobin 84.0 L ABG Sodium 134.6 L ABG Potassium ABG Chloride ABG Glucose 206 H Oxyhemoglobin Carboxyhemoglobin Sodium Potassium Chloride Carbon Dioxide BUN Creatinine Glucose POC Glucose 122 H 203 H Lactic Acid Calcium Phosphorus Magnesium Ferritin Total Bilirubin Direct Bilirubin AST ALT Alkaline Phosphatase Lactate Dehydrogenase C-Reactive Protein NT-Pro-B Natriuret Pep Total Protein Albumin Lipase Arterial Blood Glucose 206 H Arterial Blood Ionized Calcium Ur Specific [place] Urine WBC (Auto) Vancomycin Trough Coronavirus (PCR) 06/07/21 06/07/21 06/07/21 04:36 04:36 04:36 WBC RBC Hgb Hct MCV MCH MCHC RDW Plt Count Lymph % (Auto) Eos % (Auto) Lymph # (Auto) Eos # (Auto) Seg Neutrophils % Seg Neuts % (Manual) Lymphocytes % (Manual) Seg Neutrophils # Man Lymphocytes # (Manual) PT INR APTT D-Dimer 1938.43 H ABG pH POC ABG pCO2 POC ABG pO2 ABG pO2 ABG HCO3 ABG O2 Saturation ABG Base Excess ABG Hemoglobin ABG Oxyhemoglobin ABG Sodium ABG Potassium ABG Chloride ABG Glucose Oxyhemoglobin Carboxyhemoglobin Sodium Potassium Chloride Carbon Dioxide 31 H BUN Creatinine 0.3 L Glucose 234 H POC Glucose Lactic Acid Calcium Phosphorus 2.40 L Magnesium Ferritin 1287.0 H Total Bilirubin Direct Bilirubin AST ALT Alkaline Phosphatase Lactate Dehydrogenase 270 H C-Reactive Protein 26.70 H NT-Pro-B Natriuret Pep Total Protein Albumin Lipase Arterial Blood Glucose Arterial Blood Ionized Calcium Ur Specific [place] Urine WBC (Auto) Vancomycin Trough Coronavirus (PCR) 06/07/21 06/07/21 06/07/21 04:36 05:31 10:50 WBC RBC 3.31 L Hgb Hct MCV 99 H MCH MCHC RDW 23.9 H Plt Count 133 L Lymph % (Auto) Eos % (Auto) Lymph # (Auto) Eos # (Auto) Seg Neutrophils % Seg Neuts % (Manual) Lymphocytes % (Manual) Seg Neutrophils # Man Lymphocytes # (Manual) PT INR APTT D-Dimer ABG pH POC ABG pCO2 POC ABG pO2 ABG pO2 66.6 L ABG HCO3 35.7 H ABG O2 Saturation ABG Base Excess 10.3 H ABG Hemoglobin 6.2 L ABG Oxyhemoglobin ABG Sodium ABG Potassium ABG Chloride ABG Glucose Oxyhemoglobin 94.7 L Carboxyhemoglobin Sodium Potassium Chloride Carbon Dioxide BUN Creatinine Glucose POC Glucose 252 H Lactic Acid Calcium Phosphorus Magnesium Ferritin Total Bilirubin Direct Bilirubin AST ALT Alkaline Phosphatase Lactate Dehydrogenase C-Reactive Protein NT-Pro-B Natriuret Pep Total Protein Albumin Lipase Arterial Blood Glucose Arterial Blood Ionized Calcium Ur Specific [place] Urine WBC (Auto) Vancomycin Trough Coronavirus (PCR) 06/07/21 06/07/21 06/07/21 11:56 16:21 23:46 WBC RBC Hgb Hct MCV MCH MCHC RDW Plt Count Lymph % (Auto) Eos % (Auto) Lymph # (Auto) Eos # (Auto) Seg Neutrophils % Seg Neuts % (Manual) Lymphocytes % (Manual) Seg Neutrophils # Man Lymphocytes # (Manual) PT INR APTT D-Dimer ABG pH POC ABG pCO2 POC ABG pO2 ABG pO2 ABG HCO3 ABG O2 Saturation ABG Base Excess ABG Hemoglobin ABG Oxyhemoglobin ABG Sodium ABG Potassium ABG Chloride ABG Glucose Oxyhemoglobin Carboxyhemoglobin Sodium Potassium Chloride Carbon Dioxide BUN Creatinine Glucose POC Glucose 178 H 190 H 179 H Lactic Acid Calcium Phosphorus Magnesium Ferritin Total Bilirubin Direct Bilirubin AST ALT Alkaline Phosphatase Lactate Dehydrogenase C-Reactive Protein NT-Pro-B Natriuret Pep Total Protein Albumin Lipase Arterial Blood Glucose Arterial Blood Ionized Calcium Ur Specific [place] Urine WBC (Auto) Vancomycin Trough Coronavirus (PCR) 06/08/21 06/08/21 06/08/21 04:47 04:47 06:21 WBC 11.1 H RBC 3.02 L Hgb 9.4 L Hct 29.9 L MCV 99 H MCH MCHC RDW 24.5 H Plt Count Lymph % (Auto) Eos % (Auto) Lymph # (Auto) Eos # (Auto) Seg Neutrophils % Seg Neuts % (Manual) Lymphocytes % (Manual) Seg Neutrophils # Man Lymphocytes # (Manual) PT INR APTT D-Dimer ABG pH POC ABG pCO2 POC ABG pO2 ABG pO2 ABG HCO3 ABG O2 Saturation ABG Base Excess ABG Hemoglobin ABG Oxyhemoglobin ABG Sodium ABG Potassium ABG Chloride ABG Glucose Oxyhemoglobin Carboxyhemoglobin Sodium Potassium Chloride Carbon Dioxide BUN 28 H Creatinine 0.4 L Glucose 230 H POC Glucose 210 H Lactic Acid Calcium 8.2 L Phosphorus Magnesium Ferritin Total Bilirubin Direct Bilirubin AST ALT Alkaline Phosphatase Lactate Dehydrogenase C-Reactive Protein NT-Pro-B Natriuret Pep Total Protein Albumin Lipase Arterial Blood Glucose Arterial Blood Ionized Calcium Ur Specific [place] Urine WBC (Auto) Vancomycin Trough Coronavirus (PCR) 06/08/21 06/08/21 06/09/21 11:56 18:06 00:16 WBC RBC Hgb Hct MCV MCH MCHC RDW Plt Count Lymph % (Auto) Eos % (Auto) Lymph # (Auto) Eos # (Auto) Seg Neutrophils % Seg Neuts % (Manual) Lymphocytes % (Manual) Seg Neutrophils # Man Lymphocytes # (Manual) PT INR APTT D-Dimer ABG pH POC ABG pCO2 POC ABG pO2 ABG pO2 ABG HCO3 ABG O2 Saturation ABG Base Excess ABG Hemoglobin ABG Oxyhemoglobin ABG Sodium ABG Potassium ABG Chloride ABG Glucose Oxyhemoglobin Carboxyhemoglobin Sodium Potassium Chloride Carbon Dioxide BUN Creatinine Glucose POC Glucose 157 H 136 H 147 H Lactic Acid Calcium Phosphorus Magnesium Ferritin Total Bilirubin Direct Bilirubin AST ALT Alkaline Phosphatase Lactate Dehydrogenase C-Reactive Protein NT-Pro-B Natriuret Pep Total Protein Albumin Lipase Arterial Blood Glucose Arterial Blood Ionized Calcium Ur Specific [place] Urine WBC (Auto) Vancomycin Trough Coronavirus (PCR) 06/09/21 06/09/21 06/09/21 02:45 04:48 04:48 WBC RBC 3.14 L Hgb 9.8 L Hct MCV 99 H MCH MCHC RDW 24.3 H Plt Count 124 L Lymph % (Auto) Eos % (Auto) Lymph # (Auto) Eos # (Auto) Seg Neutrophils % Seg Neuts % (Manual) Lymphocytes % (Manual) Seg Neutrophils # Man Lymphocytes # (Manual) PT INR APTT D-Dimer ABG pH POC ABG pCO2 56.0 H POC ABG pO2 54.3 L ABG pO2 ABG HCO3 ABG O2 Saturation ABG Base Excess ABG Hemoglobin 11.1 L ABG Oxyhemoglobin 85.6 L ABG Sodium ABG Potassium ABG Chloride ABG Glucose 191 H Oxyhemoglobin Carboxyhemoglobin 1.6 H Sodium Potassium Chloride Carbon Dioxide BUN 29 H Creatinine 0.5 L Glucose 225 H POC Glucose Lactic Acid Calcium 7.7 L Phosphorus 5.10 H Magnesium Ferritin Total Bilirubin Direct Bilirubin AST ALT Alkaline Phosphatase Lactate Dehydrogenase C-Reactive Protein NT-Pro-B Natriuret Pep Total Protein Albumin Lipase Arterial Blood Glucose 191 H Arterial Blood Ionized Calcium 4.4 L Ur Specific [place] Urine WBC (Auto) Vancomycin Trough Coronavirus (PCR) 06/09/21 06/09/21 06/09/21 06:14 11:54 16:38 WBC RBC Hgb Hct MCV MCH MCHC RDW Plt Count Lymph % (Auto) Eos % (Auto) Lymph # (Auto) Eos # (Auto) Seg Neutrophils % Seg Neuts % (Manual) Lymphocytes % (Manual) Seg Neutrophils # Man Lymphocytes # (Manual) PT INR APTT D-Dimer ABG pH POC ABG pCO2 POC ABG pO2 ABG pO2 ABG HCO3 ABG O2 Saturation ABG Base Excess ABG Hemoglobin ABG Oxyhemoglobin ABG Sodium ABG Potassium ABG Chloride ABG Glucose Oxyhemoglobin Carboxyhemoglobin Sodium Potassium Chloride Carbon Dioxide BUN Creatinine Glucose POC Glucose 215 H 167 H 192 H Lactic Acid Calcium Phosphorus Magnesium Ferritin Total Bilirubin Direct Bilirubin AST ALT Alkaline Phosphatase Lactate Dehydrogenase C-Reactive Protein NT-Pro-B Natriuret Pep Total Protein Albumin Lipase Arterial Blood Glucose Arterial Blood Ionized Calcium Ur Specific [place] Urine WBC (Auto) Vancomycin Trough Coronavirus (PCR) 06/09/21 06/10/21 06/10/21 23:42 05:10 08:19 WBC 15.9 H RBC 3.17 L Hgb 10.0 L Hct MCV 101 H MCH MCHC RDW 24.6 H Plt Count Lymph % (Auto) Eos % (Auto) Lymph # (Auto) Eos # (Auto) Seg Neutrophils % Seg Neuts % (Manual) Lymphocytes % (Manual) Seg Neutrophils # Man Lymphocytes # (Manual) PT INR APTT D-Dimer ABG pH POC ABG pCO2 POC ABG pO2 ABG pO2 ABG HCO3 ABG O2 Saturation ABG Base Excess ABG Hemoglobin ABG Oxyhemoglobin ABG Sodium ABG Potassium ABG Chloride ABG Glucose Oxyhemoglobin Carboxyhemoglobin Sodium Potassium Chloride Carbon Dioxide BUN Creatinine Glucose POC Glucose 197 H 123 H Lactic Acid Calcium Phosphorus Magnesium Ferritin Total Bilirubin Direct Bilirubin AST ALT Alkaline Phosphatase Lactate Dehydrogenase C-Reactive Protein NT-Pro-B Natriuret Pep Total Protein Albumin Lipase Arterial Blood Glucose Arterial Blood Ionized Calcium Ur Specific [place] Urine WBC (Auto) Vancomycin Trough Coronavirus (PCR) 06/10/21 06/10/21 06/10/21 08:19 11:25 14:20 WBC RBC Hgb Hct MCV MCH MCHC RDW Plt Count Lymph % (Auto) Eos % (Auto) Lymph # (Auto) Eos # (Auto) Seg Neutrophils % Seg Neuts % (Manual) Lymphocytes % (Manual) Seg Neutrophils # Man Lymphocytes # (Manual) PT INR APTT D-Dimer ABG pH POC ABG pCO2 POC ABG pO2 ABG pO2 ABG HCO3 ABG O2 Saturation ABG Base Excess ABG Hemoglobin ABG Oxyhemoglobin ABG Sodium ABG Potassium ABG Chloride ABG Glucose Oxyhemoglobin Carboxyhemoglobin Sodium 147 H Potassium 5.1 H D 5.1 H Chloride Carbon Dioxide 31 H BUN 43 H Creatinine 0.5 L Glucose 228 H POC Glucose 196 H Lactic Acid Calcium Phosphorus 5.20 H Magnesium Ferritin Total Bilirubin Direct Bilirubin AST ALT Alkaline Phosphatase Lactate Dehydrogenase C-Reactive Protein NT-Pro-B Natriuret Pep Total Protein Albumin Lipase Arterial Blood Glucose Arterial Blood Ionized Calcium Ur Specific [place] Urine WBC (Auto) Vancomycin Trough Coronavirus (PCR) 06/10/21 06/11/21 06/11/21 16:41 00:11 04:00 WBC RBC 2.59 L Hgb 8.3 L Hct 26.7 L MCV 103 H MCH MCHC RDW 25.0 H Plt Count 91 L Lymph % (Auto) Eos % (Auto) Lymph # (Auto) Eos # (Auto) Seg Neutrophils % Seg Neuts % (Manual) Lymphocytes % (Manual) Seg Neutrophils # Man Lymphocytes # (Manual) PT INR APTT D-Dimer ABG pH POC ABG pCO2 POC ABG pO2 ABG pO2 ABG HCO3 ABG O2 Saturation ABG Base Excess ABG Hemoglobin ABG Oxyhemoglobin ABG Sodium ABG Potassium ABG Chloride ABG Glucose Oxyhemoglobin Carboxyhemoglobin Sodium Potassium Chloride Carbon Dioxide BUN Creatinine Glucose POC Glucose 214 H 227 H Lactic Acid Calcium Phosphorus Magnesium Ferritin Total Bilirubin Direct Bilirubin AST ALT Alkaline Phosphatase Lactate Dehydrogenase C-Reactive Protein NT-Pro-B Natriuret Pep Total Protein Albumin Lipase Arterial Blood Glucose Arterial Blood Ionized Calcium Ur Specific [place] Urine WBC (Auto) Vancomycin Trough Coronavirus (PCR) 06/11/21 06/11/21 06/11/21 04:00 05:15 06:20 WBC RBC Hgb Hct MCV MCH MCHC RDW Plt Count Lymph % (Auto) Eos % (Auto) Lymph # (Auto) Eos # (Auto) Seg Neutrophils % Seg Neuts % (Manual) Lymphocytes % (Manual) Seg Neutrophils # Man Lymphocytes # (Manual) PT INR APTT D-Dimer ABG pH POC ABG pCO2 61.8 H POC ABG pO2 55.2 L ABG pO2 ABG HCO3 ABG O2 Saturation ABG Base Excess ABG Hemoglobin 11.2 L ABG Oxyhemoglobin 86.9 L ABG Sodium 146.1 H ABG Potassium ABG Chloride ABG Glucose 200 H Oxyhemoglobin Carboxyhemoglobin Sodium 150 H Potassium Chloride 107.6 H Carbon Dioxide BUN 50 H Creatinine Glucose 140 H POC Glucose 165 H Lactic Acid Calcium Phosphorus Magnesium Ferritin Total Bilirubin Direct Bilirubin AST ALT Alkaline Phosphatase Lactate Dehydrogenase C-Reactive Protein NT-Pro-B Natriuret Pep Total Protein Albumin Lipase Arterial Blood Glucose 200 H Arterial Blood Ionized Calcium Ur Specific [place] Urine WBC (Auto) Vancomycin Trough Coronavirus (PCR) 06/11/21 06/11/21 06/11/21 11:16 15:41 18:30 WBC RBC Hgb Hct MCV MCH MCHC RDW Plt Count Lymph % (Auto) Eos % (Auto) Lymph # (Auto) Eos # (Auto) Seg Neutrophils % Seg Neuts % (Manual) Lymphocytes % (Manual) Seg Neutrophils # Man Lymphocytes # (Manual) PT INR APTT D-Dimer ABG pH POC ABG pCO2 POC ABG pO2 ABG pO2 ABG HCO3 ABG O2 Saturation ABG Base Excess ABG Hemoglobin ABG Oxyhemoglobin ABG Sodium ABG Potassium ABG Chloride ABG Glucose Oxyhemoglobin Carboxyhemoglobin Sodium Potassium Chloride Carbon Dioxide BUN Creatinine Glucose POC Glucose 119 H 63 L 118 H Lactic Acid Calcium Phosphorus Magnesium Ferritin Total Bilirubin Direct Bilirubin AST ALT Alkaline Phosphatase Lactate Dehydrogenase C-Reactive Protein NT-Pro-B Natriuret Pep Total Protein Albumin Lipase Arterial Blood Glucose Arterial Blood Ionized Calcium Ur Specific [place] Urine WBC (Auto) Vancomycin Trough Coronavirus (PCR) 06/11/21 06/11/21 06/12/21 21:54 23:57 01:36 WBC RBC Hgb Hct MCV MCH MCHC RDW Plt Count Lymph % (Auto) Eos % (Auto) Lymph # (Auto) Eos # (Auto) Seg Neutrophils % Seg Neuts % (Manual) Lymphocytes % (Manual) Seg Neutrophils # Man Lymphocytes # (Manual) PT INR APTT D-Dimer ABG pH POC ABG pCO2 POC ABG pO2 ABG pO2 ABG HCO3 ABG O2 Saturation ABG Base Excess ABG Hemoglobin ABG Oxyhemoglobin ABG Sodium ABG Potassium ABG Chloride ABG Glucose Oxyhemoglobin Carboxyhemoglobin Sodium Potassium Chloride Carbon Dioxide BUN Creatinine Glucose POC Glucose 66 L 64 L 113 H Lactic Acid Calcium Phosphorus Magnesium Ferritin Total Bilirubin Direct Bilirubin AST ALT Alkaline Phosphatase Lactate Dehydrogenase C-Reactive Protein NT-Pro-B Natriuret Pep Total Protein Albumin Lipase Arterial Blood Glucose Arterial Blood Ionized Calcium Ur Specific [place] Urine WBC (Auto) Vancomycin Trough Coronavirus (PCR) 06/12/21 06/12/21 06/12/21 06:03 06:03 10:20 WBC 16.9 H RBC 2.74 L Hgb 8.5 L Hct 30.2 L MCV 110 H MCH MCHC 28 L RDW 26.3 H Plt Count 57 L Lymph % (Auto) Eos % (Auto) Lymph # (Auto) Eos # (Auto) Seg Neutrophils % Seg Neuts % (Manual) Lymphocytes % (Manual) Seg Neutrophils # Man Lymphocytes # (Manual) PT INR APTT D-Dimer ABG pH POC ABG pCO2 POC ABG pO2 ABG pO2 ABG HCO3 ABG O2 Saturation ABG Base Excess ABG Hemoglobin ABG Oxyhemoglobin ABG Sodium ABG Potassium ABG Chloride ABG Glucose Oxyhemoglobin Carboxyhemoglobin Sodium 148 H Potassium 6.1 H* D 5.1 H Chloride Carbon Dioxide 18 L D 13 L BUN 53 H 46 H Creatinine 1.6 H D 1.4 H Glucose POC Glucose Lactic Acid Calcium > 13.0 H* D Phosphorus Magnesium Ferritin Total Bilirubin Direct Bilirubin AST ALT Alkaline Phosphatase Lactate Dehydrogenase C-Reactive Protein NT-Pro-B Natriuret Pep Total Protein Albumin Lipase Arterial Blood Glucose Arterial Blood Ionized Calcium Ur Specific [place] Urine WBC (Auto) Vancomycin Trough Coronavirus (PCR) 06/12/21 06/12/21 10:45 11:52 WBC RBC Hgb Hct MCV MCH MCHC RDW Plt Count Lymph % (Auto) Eos % (Auto) Lymph # (Auto) Eos # (Auto) Seg Neutrophils % Seg Neuts % (Manual) Lymphocytes % (Manual) Seg Neutrophils # Man Lymphocytes # (Manual) PT INR APTT D-Dimer ABG pH POC ABG pCO2 POC ABG pO2 ABG pO2 ABG HCO3 ABG O2 Saturation ABG Base Excess ABG Hemoglobin ABG Oxyhemoglobin ABG Sodium ABG Potassium ABG Chloride ABG Glucose Oxyhemoglobin Carboxyhemoglobin Sodium Potassium Chloride Carbon Dioxide BUN Creatinine Glucose POC Glucose 30 L Lactic Acid Calcium Phosphorus Magnesium Ferritin Total Bilirubin Direct Bilirubin AST ALT Alkaline Phosphatase Lactate Dehydrogenase C-Reactive Protein NT-Pro-B Natriuret Pep Total Protein Albumin Lipase Arterial Blood Glucose Arterial Blood Ionized Calcium Ur Specific [place] Urine WBC (Auto) 8.0 H Vancomycin Trough Coronavirus (PCR) Chest x-ray: image reviewed Allied health notes reviewed: RT
[2021-06-12] MEDS ORDERED: VANCOMYCIN PHARMACY TO DOSE IV SCH (15:00)
[2021-06-12] MEDS ORDERED: MEROPENEM/NS 1 GRAM/100 ML 1 GRAM/100 ML BAG IV SCH (15:00)
[2021-06-12 15:50] VITALS: BP 107/41
--- NOTE | 2021-06-12 19:09 | Death Summary ---
Summary - Providers Consults: 05/11/21 21:40 Consult to Physician [CONS] Routine Comment: Consulting Provider: TAD TADEO Physician Instructions: Reason For Exam: Sepsis 05/12/21 07:42 Consult to Physician [CONS] Routine Comment: Consulting Provider: LAZ GARRIDO Physician Instructions: Reason For Exam: Transaminitis 05/12/21 09:52 Consult to Physician [CONS] Routine Comment: Patient follows with [facility] Consulting Provider: ROSE KOO Physician Instructions: Reason For Exam: Hypotensive, Pulm Fibrosis 05/14/21 13:09 Consult to PICC Line RN [CONS] Routine Reason For Exam: On pressors Type Line:: PICC 05/16/21 13:29 Consult to Dietitian/Nutrition [CONS] Routine Physician Instructions: Reason For Exam: Reason for Consult: Write/Manage TPN/PPN 05/21/21 14:54 Consult to PICC Line RN [CONS] Routine Reason For Exam: TPN/ refusal to access port Type Line:: PICC 05/22/21 14:38 Consult to Dietitian/Nutrition [CONS] Routine Physician Instructions: Reason For Exam: Daytime feeding please. Thanks Reason for Consult: Write/Manage Tube Feeding 05/22/21 16:33 Speech Therapy Evaluation and Treat [CONS] Stat Reason For Exam: Swallow Screen 05/22/21 16:46 Midline [Consult to PICC Line RN] [CONS] Routine Reason For Exam: Midline Insertion Type Line:: Midline 05/27/21 15:28 Consult to Case Management [CONS] Routine Services Needed at Discharge: Other Notified:: yes Phone number called:: yes Was contact made?: Yes If yes, spoke with:: Paige Time called:: 10:13 Comment:: [facility]IAT[facility]. 06/12/21 07:52 Consult to Physician [CONS] Urgent Comment: spoke to dr. tadeo/ lizbeth Consulting Provider: TAD TADEO Physician Instructions: Reason For Exam: septic shock Attending: MALINDA KENDRICK MD - summary Date of admission: 05/11/21 14:35 Date of : 06/12/21 Reason for admission: resp failure
[2021-06-13] MEDS ORDERED: VANCOMYCIN 1,000 MG in SODIUM CHLORIDE 0.9% 250ML 250 ML IV SCH (10:00)
[2021-06-13] MEDS ORDERED: VANCOMYCIN/NS 1 GM/250 ML 1 GM/250 ML BAG IV SCH (10:00)
[2021-06-14 15:32] LABS: Heparin-Induced Platelet Antib Negative (Negative); Unfractionated Heparin Negative (Negative)
== END 2021-06-12 16:30 | DRG 870 ==
LOC: ED 05:02 → CC1 14:35 → IMCU 05-23 05:31 → CC1 06-02 06:27
PROVIDERS: ADMIT Internal Medicine; ATTEND Internal Medicine
PROC: 06HM33Z Insertion of Infusion Device into Right Femoral Vein, Percutaneous Approach (ICD-10-PCS; 2021-05-11)
PROC: B54BZZA Ultrasonography of Right Lower Extremity Veins, Guidance (ICD-10-PCS; 2021-05-11)
PROC: 5A09557 Assistance with Respiratory Ventilation, Greater than 96 Consecutive Hours, Continuous Positive Airway Pressure (ICD-10-PCS; principal; 2021-05-14)
PROC: 4A033R1 Measurement of Arterial Saturation, Peripheral, Percutaneous Approach (ICD-10-PCS; 2021-05-19)
PROC: 5A1955Z Respiratory Ventilation, Greater than 96 Consecutive Hours (ICD-10-PCS; 2021-06-02)
PROC: 0BH17EZ Insertion of Endotracheal Airway into Trachea, Via Natural or Artificial Opening (ICD-10-PCS; 2021-06-02)
PROC: XW033E5 Introduction of Remdesivir Anti-infective into Peripheral Vein, Percutaneous Approach, New Technology Group 5 (ICD-10-PCS; 2021-06-02)
DX: A41.9 Sepsis, unspecified organism (principal); R65.21 Severe sepsis with septic shock; U07.1 COVID-19; J96.21 Acute and chronic respiratory failure with hypoxia; R17 Unspecified jaundice; C25.1 Malignant neoplasm of body of pancreas; E46 Unspecified protein-calorie malnutrition; J84.10 Pulmonary fibrosis, unspecified; Z20.822 Contact with and (suspected) exposure to COVID-19; I10 Essential (primary) hypertension; J44.9 Chronic obstructive pulmonary disease, unspecified; Z87.891 Personal history of nicotine dependence; E16.2 Hypoglycemia, unspecified; E87.8 Other disorders of electrolyte and fluid balance, not elsewhere classified; Z68.26 Body mass index [BMI] 26.0-26.9, adult; D69.6 Thrombocytopenia, unspecified; E83.52 Hypercalcemia; E87.5 Hyperkalemia
CPT/HCPCS: 36415; 36600; 71045; 71275; 74018; 74177; 76705; 80048; 80053; 80074; 80076; 80202; 81001; 82140; 82728; 82803; 82805; 82962; 83036; 83615; 83690; 83735; 83880; 84100; 84132; 84145; 84478; 85007; 85025; 85027; 85379; 85610; 85730; 86022; 86140; 86301; 87040; 87070; 87076; 87186; 87205; 93005; 93306; 93970; 94002; 94003; 94640; 94660; 94760; 99291; G0378; J2354; J3490; J7510; Q0162; Q9967; C9113; J0330; J0610; J0692; J0696; J1100; J1170; J1630; J1644; J1650; J1652; J1720; J1815; J1885; J1940; J1956; J2060; J2185; J2270; J2370; J2405; J2543; J2704; J2765; J3010; J3370; J3475; J3480; J7030; J7040; J7042; J7050; J7070; J7120; J7512; J8540; P9047; U0003